=== PATIENT | female | born 1955 | race Caucasian/White ===

== ENCOUNTER 2016-05-16 13:39 | Inpatient (IN) | payer OTHER, MEDICARE ==
[2016-05-16] VITALS (10 sets, daily range): BP systolic 125–150; BP diastolic 58–70; PULSE 64–88; RESP 18–24; TEMP 97.6–98.2; O2SAT 94–100
[~2016-05-16] VITALS: Ht 175.3 cm; Wt 72.4 kg
[~2016-05-16 13:39] MED LIST: CIME300T PO; DIAZ10 PO; DILA10IN IJ; FURO20 PO; GABA300 PO; HYDR-3533 PO; IBUP-232 PO; KCL10C PO; SOMA350T PO
[2016-05-16 14:28] LABS: MEAN CELL VOLUME 98.1 FL (80.0-100.0); MEAN CORPUSCULAR HEMOGLOBIN 34.3 PG (27.0-34.0); PLATELET COUNT 71 TH/MM3 (150-450); RED BLOOD COUNT 1.68 MIL/MM3 (4.00-5.30); RED CELL DISTRIBUTION WIDTH 17.8 % (11.6-17.2); WHITE BLOOD COUNT 2.5 TH/MM3 (4.0-11.0)
[2016-05-16 14:43] LABS: HEMO FLAGS AUTO DIFF
[2016-05-16 14:45] LABS: ANION GAP 11 MEQ/L (5-15); BICARBONATE 24.5 MEQ/L (21.0-32.0); BLOOD UREA NITROGEN 18 MG/DL (7-18); CHLORIDE 103 MEQ/L (98-107); GLOMERULAR FILTRATION RATE 72 ML/MIN (>89); POTASSIUM 4.2 MEQ/L (3.5-5.1); SODIUM (NA) 138 MEQ/L (136-145)
[2016-05-16 14:47] LABS: HEMATOCRIT 16.4 % (35.0-46.0)
[2016-05-16 14:49] LABS: CREATINE KINASE 161 U/L (26-192)
[2016-05-16] MEDS ORDERED: SODIUM CHLOR 0.9% 1000 ML INJ 1,000 ML IV SCH ×2 (14:49→17:31)
[2016-05-16] MEDS ORDERED: SODIUM CHLORIDE 0.9% FLUSH 5 ML FLUSH IVF PRN (15:00)
[2016-05-16 15:02] LABS: CKMB 1.7 NG/ML (0.5-3.6)
--- NOTE | 2016-05-16 15:14 | PD ---
Physical Exam Date Seen by Provider: May 16, 2016 Narrative I, Dr. Darnell, have reviewed the advance practice practitioner's documentation and am in agreement, met with the patient face to face, made the diagnosis, and the medical decision making was done by me. *My assessment and Findings: Patient is pale and seems out of breath when she is talking. Data Data Last Documented VS Vital Signs Date Time Temp Pulse Resp B/P Pulse Ox O2 Delivery O2 Flow Rate FiO2 05/16/16 14:55 20 100 Room Air 05/16/16 13:43 97.9 88 150/70 Orders Electrocardiogram (05/16/16 13:55) Complete Blood Count With Diff (05/16/16 13:55) Basic Metabolic Panel (Bmp) (05/16/16 13:55) Ckmb (Isoenzyme) Profile (05/16/16 13:55) Troponin I (05/16/16 13:55) CKMB (05/16/16 14:10) CKMB% (05/16/16 14:10) Prothrombin Time / Inr (Pt) (05/16/16 14:49) Act Partial Throm Time (Ptt) (05/16/16 14:49) Type And Screen (05/16/16 14:49) Ecg Monitoring (05/16/16 14:49) Iv Access Insert/Monitor (05/16/16 14:49) Orthostatic Vital Signs (05/16/16 14:49) Oximetry (05/16/16 14:49) Sodium Chlor 0.9% 1000 Ml Inj (Ns 1000 M (05/16/16 14:49) Sodium Chloride 0.9% Flush (Ns Flush) (05/16/16 15:00) Iron/Tibc Profile (05/16/16 15:04) Vitamin B12 (05/16/16 15:04) Labs Laboratory Tests Test 05/16/16 14:10 White Blood Count 2.5 TH/MM3 Red Blood Count 1.68 MIL/MM3 Hemoglobin 5.8 GM/DL Hematocrit 16.4 % Mean Corpuscular Volume 98.1 FL Mean Corpuscular Hemoglobin 34.3 PG Mean Corpuscular Hemoglobin 35.0 % Concent Red Cell Distribution Width 17.8 % Platelet Count 71 TH/MM3 Mean Platelet Volume 7.6 FL Neutrophils (%) (Auto) % Lymphocytes (%) (Auto) % Monocytes (%) (Auto) % Eosinophils (%) (Auto) % Basophils (%) (Auto) % Neutrophils # (Auto) TH/MM3 Lymphocytes # (Auto) TH/MM3 Monocytes # (Auto) TH/MM3 Eosinophils # (Auto) TH/MM3 Basophils # (Auto) TH/MM3 CBC Comment AUTO DIFF Sodium Level 138 MEQ/L Potassium Level 4.2 MEQ/L Chloride Level 103 MEQ/L Carbon Dioxide Level 24.5 MEQ/L Anion Gap 11 MEQ/L Blood Urea Nitrogen 18 MG/DL Creatinine 0.81 MG/DL Estimat Glomerular Filtration 72 ML/MIN Rate Random Glucose 88 MG/DL Calcium Level 8.5 MG/DL Total Creatine Kinase 161 U/L Creatine Kinase MB 1.7 NG/ML Troponin I LESS THAN 0.02 NG/ML MDM Supervised Visit with ALYCE: Kinza Carmen MD May 16, 2016 15:14
--- NOTE | 2016-05-16 15:18 | PD ---
HPI Chief Complaint: Chest Pain Time Seen by Provider: 15:07 Travel History International Travel<30 days: No Contact w/Intl Traveler<30days: No Traveled to known affect area: No History of Present Illness HPI Patient is a 61-year-old female who presents emergency from for evaluation of shortness of breath and chest tightness. Patient states she has been getting progressively more short of breath with exertion for the last 2-3 weeks. She reports chest tightness and describes it as if she has run a long distance and it takes a while to catch her breath. She denies any abdominal pain, nausea, vomiting, chest pressure or radiation of her chest pain, headaches, fevers, chills. She states that she had hemorrhoid surgery approximately [address] Purvis. She denies any dark or tarry-like stools. Her primary doctor is Dr. Davis. Patient has a past medical history of hemorrhoids, cervical and lumbar fusions, hypothyroidism, peripheral edema. PFSH Past Medical History Asthma: No Anxiety: Yes Depression: Yes Heart Rhythm Problems: No Cancer: No Cardiac Catheterization: No Cardiovascular Problems: No High Cholesterol: No Chest Pain: No Congestive Heart Failure: No COPD: No Diabetes: No Diminished Hearing: No Endocrine: No Gastrointestinal Disorders: No GERD: Yes Glaucoma: No Genitourinary: No Hepatitis: No Hiatal Hernia: No Hypertension: Yes Immune Disorder: No Implanted Vascular Access Dvce: Yes (pain pump) Musculoskeletal: Yes (CHRONIC NECK AND BACK SURGERY) Neurologic: Yes (neuropathy) Reproductive: No Respiratory: No Myocardial Infarction: No Sleep Apnea: No Thyroid Disease: Yes Tetanus Vaccination: > 5 Years Influenza Vaccination: Yes Menopausal: Yes Past Surgical History Narrative Surgical Hemorrhoid surgery Body Medical Devices: [employer] PAIN PUMP RIGHT ABDOMEN Coronary Artery Bypass Graft: No Gynecologic Surgery: Yes (REMOVAL UTERUS CYST) Pacemaker: No Other Surgery: Yes (MULTIPLE BACK SURGERIES, CARPAL TUNNEL BILATERALLY, shoulder) Family History Family Myocardial Infarction: Yes Social History Alcohol Use: No Tobacco Use: No Substance Use: No Allergies-Medications (Allergen,Severity, Reaction): Coded Allergies: No Known Allergies (Verified , 05/16/16) Reported Meds & Prescriptions Reported Meds & Active Scripts Active Reported Protonix (Pantoprazole Sodium) 20 Mg Tab 20 Mg PO DAILY Gabapentin 300 Mg Cap 300 Mg PO TID Zantac (Ranitidine HCl) 150 Mg Tab 150 Mg PO BID Synthroid (Levothyroxine Sodium) 25 Mcg Tab 25 Mcg PO DAILY Potassium Chloride ER (Potassium Chloride) 10 Meq Cap 10 Meq PO DAILY Lasix (Furosemide) 20 Mg Tab 20 Mg PO DAILY Soma (Carisoprodol) 350 Mg Tab 350 Mg PO TID PRN Review of Systems Except as stated in HPI: all other systems reviewed are Neg Cardiovascular: Positive: Chest Pain or Discomfort, Dyspnea on exertion Respiratory: Positive: Shortness of Breath, No: Pleuritic Pain Gastrointestinal: Positive: Constipation (chronic issue), No: Nausea, Vomiting , Diarrhea, Abdominal Pain Neurologic: Positive: Weakness, No: Dizziness, Syncope, Focal Abnormalities, Change in Mentation Physical Exam Narrative GENERAL: Well developed, well nourished, alert female. Resting comfortably in no acute distress. SKIN: Warm and dry. HEAD: Atraumatic. Normocephalic. EYES: Pupils equal and round. No scleral icterus. No injection or drainage. Conjunctival pallor ENT: No nasal bleeding or discharge. Mucous membranes pink and moist. NECK: Trachea midline. No JVD. CARDIOVASCULAR: Regular rate and rhythm. No murmur appreciated. RESPIRATORY: No accessory muscle use. Clear to auscultation. Breath sounds equal bilaterally. GASTROINTESTINAL: Abdomen soft, non-tender, nondistended. Hepatic and splenic margins not palpable. MUSCULOSKELETAL: No obvious deformities. No clubbing. No cyanosis. No edema. NEUROLOGICAL: Awake and alert. No obvious cranial nerve deficits. Motor grossly within normal limits. Normal speech. PSYCHIATRIC: Appropriate mood and affect; insight and judgment normal. Data Data Last Documented VS Vital Signs Date Time Temp Pulse Resp B/P Pulse Ox O2 Delivery O2 Flow Rate FiO2 05/16/16 17:00 97.8 68 18 132/60 100 Room Air Orders Electrocardiogram (05/16/16 13:55) Complete Blood Count With Diff (05/16/16 13:55) Basic Metabolic Panel (Bmp) (05/16/16 13:55) Ckmb (Isoenzyme) Profile (05/16/16 13:55) Troponin I (05/16/16 13:55) CKMB (05/16/16 14:10) CKMB% (05/16/16 14:10) Prothrombin Time / Inr (Pt) (05/16/16 14:49) Act Partial Throm Time (Ptt) (05/16/16 14:49) Type And Screen (05/16/16 14:49) Ecg Monitoring (05/16/16 14:49) Iv Access Insert/Monitor (05/16/16 14:49) Orthostatic Vital Signs (05/16/16 14:49) Oximetry (05/16/16 14:49) Sodium Chlor 0.9% 1000 Ml Inj (Ns 1000 M (05/16/16 14:49) Sodium Chloride 0.9% Flush (Ns Flush) (05/16/16 15:00) Iron/Tibc Profile (05/16/16 15:04) Vitamin B12 (05/16/16 15:04) Diet As Tolerated (05/16/16 16:28) Blood Product Administration .UPON TRANSFUSION (05/16/16 16:36) Pantoprazole Inj (Protonix Inj) (05/16/16 16:45) Red Blood Cells (Rbc) (05/16/16 15:00) Consult Gastroenterology (05/16/16 ) Admit Order (Ed Use Only) (05/16/16 17:21) Labs Laboratory Tests Test 05/16/16 05/16/16 05/16/16 14:10 15:00 16:10 White Blood Count 2.5 TH/MM3 Red Blood Count 1.68 MIL/MM3 Hemoglobin 5.8 GM/DL Hematocrit 16.4 % Mean Corpuscular Volume 98.1 FL Mean Corpuscular Hemoglobin 34.3 PG Mean Corpuscular Hemoglobin 35.0 % Concent Red Cell Distribution Width 17.8 % Platelet Count 71 TH/MM3 Mean Platelet Volume 7.6 FL Neutrophils (%) (Auto) % Lymphocytes (%) (Auto) % Monocytes (%) (Auto) % Eosinophils (%) (Auto) % Basophils (%) (Auto) % Neutrophils # (Auto) TH/MM3 Lymphocytes # (Auto) TH/MM3 Monocytes # (Auto) TH/MM3 Eosinophils # (Auto) TH/MM3 Basophils # (Auto) TH/MM3 CBC Comment AUTO DIFF Differential Total Cells 100 Counted Neutrophils % (Manual) 6 % Lymphocytes % 85 % Monocytes % 4 % Eosinophils % 5 % Neutrophils # (Manual) 0.2 TH/MM3 Differential Comment FINAL DIFF MANUAL Platelet Estimate LOW Platelet Morphology Comment NORMAL Ovalocytes 1+ Sodium Level 138 MEQ/L Potassium Level 4.2 MEQ/L Chloride Level 103 MEQ/L Carbon Dioxide Level 24.5 MEQ/L Anion Gap 11 MEQ/L Blood Urea Nitrogen 18 MG/DL Creatinine 0.81 MG/DL Estimat Glomerular Filtration 72 ML/MIN Rate Random Glucose 88 MG/DL Calcium Level 8.5 MG/DL Total Creatine Kinase 161 U/L Creatine Kinase MB 1.7 NG/ML Troponin I LESS THAN 0.02 NG/ML Prothrombin Time 10.9 SEC Prothromb Time International 1.0 RATIO Ratio Activated Partial 27.7 SEC Thromboplast Time Blood Type O POSITIVE O POSITIVE Antibody Screen NEGATIVE Crossmatch Leukocyte-Reduced Red Blood Cells Blood Bank Comment MDM Medical Decision Making Medical Screen Exam Complete: Yes Emergency Medical Condition: Yes Interpretation(s) Vital Signs Date Time Temp Pulse Resp B/P Pulse Ox O2 Delivery O2 Flow Rate FiO2 05/16/16 13:43 97.9 88 24 150/70 95 Room Air Differential Diagnosis Atypical chest pain versus acute GA versus PE versus CHF versus anemia Narrative Course Patient is a 61-year-old female who presents emergency department for evaluation of shortness of breath and chest tightness. Patient was protocoled while waiting. Upon presentation to the room she appears to be short of breath with any amount of exertion including talking. She was placed on telemetry monitoring, continuous pulse oximetry, IV established. Patient's initial EKG shows normal sinus rhythm. CBC shows hemoglobin of 5.8/16.4 Troponin is normal, less than 0.02. Chemistries otherwise unremarkable. Type and cross was ordered and pending Stool was positive for blood on Hemoccult card. Patient's vital signs are stable, she is not tachycardic without heart rate of 88, she was 95% on room air in triage, when resting she is 100% on room air. Iron profile, coags as well as B12 ordered and pending. Patient will be transfused for 2 units packed red blood cells. Patient to be admitted to Dr. Gonzales. Vital signs remained stable, patient is agreeable to plan. HemaPrompt Point of Care Fecal Specimen Occult Blood: Positive Diagnosis Primary Impression: Anemia Qualified Code: D64.9 - Anemia, unspecified type Additional Impression: GI bleed Qualified Code: K92.2 - Gastrointestinal hemorrhage, unspecified gastrointestinal hemorrhage type Admitting Information Admitting Physician Requests: Observation Condition: Stable Susan Pelaez DYE TUB TENDER May 16, 2016 15:18
[2016-05-16 15:38] LABS: EOSINOPHILS 5 % (0-4); NEUTROPHIL # MANUAL DIFF 0.2 TH/MM3 (1.8-7.7); POLYS (SEG NEUTROPHILS) 6 % (16-70); WBC DIFF SAMPLE 100
[2016-05-16 15:39] LABS: OVALOCYTES 1+ (NORMAL)
[2016-05-16 15:40] LABS: PLATELET ESTIMATE SMEAR LOW (NORMAL); PLATELET MORPHOLOGY NORMAL (NORMAL); SCAN/DIFF FINAL DIFF MANUAL
[2016-05-16 15:41] LABS: APTT (PATIENT) 27.7 SEC (24.3-30.1); PROTHROMBIN TIME - PATIENT 10.9 SEC (9.8-11.6)
[2016-05-16] MEDS ORDERED: SOMA350T PO (15:48)
[2016-05-16] MEDS ORDERED: POTA10CA PO (15:48)
[2016-05-16] MEDS ORDERED: FURO1TAB62 PO (15:48)
[2016-05-16] MEDS ORDERED: PANT20 PO (15:55)
[2016-05-16] MEDS ORDERED: SYNT25TA PO (15:55)
[2016-05-16] MEDS ORDERED: GABA300C5 PO (15:55)
[2016-05-16] MEDS ORDERED: ZANT150T2 PO (15:55)
[2016-05-16] MEDS ORDERED: PANTOPRAZOLE SODIUM 40 MG VIAL IV PUSH ONE (16:45)
[2016-05-16] MEDS: GABAPENTIN 300 MG CAP PO SCH (18:00)
--- NOTE | 2016-05-16 18:56 | HHI.HP ---
[facility] Primary Care Physician Eloy Davis MD Admission Diagnosis ANEMIA/GI BLEED Diagnoses: Chief Complaint: Shortness of breath, fatigue Travel History International Travel<30 Days: No Contact w/Intl Traveler <30 Da: No Traveled to Known Affected Are: No History of Present Illness 61-year-old female with a medical history significant for hypothyroidism, GERD, chronic back pain, peripheral edema, hemorrhoids present to the emergency room with complaint of shortness of breath and occasional chest tightness. The patient reports that she had an in office hemorrhoidectomy about 3 weeks ago. Since the procedure she reports that she has been feeling overly tired and never recovered. She has been progressively getting short of breath, with associated heart palpitation and dizziness. She denies any dark or bloody stools. She does report that she continues to have issues with constipation and has been using Dulcolax and enema every few days. Workup in the emergency room revealed marked anemia with an H&H of 5.8/16.4. She is also thrombocytopenic with a platelet of 71 and her absolute neutrophil is 0.2. Review of Systems Constitutional: COMPLAINS OF: Fatigue, DENIES: Fever, Chills Endocrine: COMPLAINS OF: Heat/cold intolerance Eyes: DENIES: Diplopia Ears, nose, mouth, throat: DENIES: Oral lesions Respiratory: COMPLAINS OF: Shortness of breath, DENIES: Cough Cardiovascular: COMPLAINS OF: Chest pain, Palpitations, Dyspnea on Exertion, DENIES: Syncope Gastrointestinal: DENIES: Nausea, Vomiting Genitourinary: DENIES: Dysuria Musculoskeletal: COMPLAINS OF: Back pain, Neck pain Integumentary: DENIES: Rash Neurologic: DENIES: Headache, Localized weakness Psychiatric: DENIES: Mood changes Past Family Social History Past Medical History hypothyroidism, GERD, chronic back pain, peripheral edema, hemorrhoids Past Surgical History Back and neck surgery Rotator cuff surgery Pain pump placement on the right lower abdomen Reported Medications Reported Meds & Active Scripts Active Reported Protonix (Pantoprazole Sodium) 20 Mg Tab 20 Mg PO DAILY Gabapentin 300 Mg Cap 300 Mg PO TID Zantac (Ranitidine HCl) 150 Mg Tab 150 Mg PO BID Synthroid (Levothyroxine Sodium) 25 Mcg Tab 25 Mcg PO DAILY Potassium Chloride ER (Potassium Chloride) 10 Meq Cap 10 Meq PO DAILY Lasix (Furosemide) 20 Mg Tab 20 Mg PO DAILY Soma (Carisoprodol) 350 Mg Tab 350 Mg PO TID PRN Allergies: Coded Allergies: No Known Allergies (Verified , 05/16/16) Family History Father from cancer and emphysema. He also has a history of heart disease Mother from complications of asthma. Social History The patient denies using tobacco, alcohol or illicit drugs. Physical Exam Vital Signs Vital Signs Date Time Temp Pulse Resp B/P Pulse Ox O2 Delivery O2 Flow Rate FiO2 05/16/16 18:05 97.8 71 18 130/68 100 Room Air 05/16/16 17:00 97.8 68 18 132/60 100 Room Air 05/16/16 15:00 72 18 137/62 69 18 130/61 18 132/58 05/16/16 14:55 20 100 Room Air 05/16/16 14:55 70 18 99 Room Air 05/16/16 13:43 97.9 88 24 150/70 95 Room Air Physical Exam GENERAL: This is a well-nourished, well-developed patient, in no apparent distress. SKIN: No rashes, ecchymoses or lesions. Cool and dry. HEAD: Atraumatic. Normocephalic. No temporal or scalp tenderness. EYES: Pupils equal round and reactive. Extraocular motions intact. No scleral icterus. No injection or drainage. ENT: Nose without bleeding, purulent drainage or septal hematoma. Throat without erythema, tonsillar hypertrophy or exudate. Uvula midline. Airway patent. NECK: Trachea midline. No JVD or lymphadenopathy. Supple, nontender, no meningeal signs. CARDIOVASCULAR: Regular rate and rhythm without murmurs, gallops, or rubs. RESPIRATORY: Clear to auscultation. Breath sounds equal bilaterally. No wheezes , rales, or rhonchi. GASTROINTESTINAL: Abdomen soft, non-tender, nondistended. No hepato-splenomegaly , or palpable masses. No guarding. MUSCULOSKELETAL: Extremities without clubbing, cyanosis, or edema. No joint tenderness, effusion, or edema noted. No calf tenderness. Negative Homans sign bilaterally. NEUROLOGICAL: Awake and alert. Cranial nerves II through XII intact. Motor and sensory grossly within normal limits. Five out of 5 muscle strength in all muscle groups. Normal speech. Laboratory Laboratory Tests Test 05/16/16 05/16/16 05/16/16 14:10 15:00 16:10 White Blood Count 2.5 Red Blood Count 1.68 Hemoglobin 5.8 Hematocrit 16.4 Mean Corpuscular Volume 98.1 Mean Corpuscular Hemoglobin 34.3 Mean Corpuscular Hemoglobin 35.0 Concent Red Cell Distribution Width 17.8 Platelet Count 71 Mean Platelet Volume 7.6 Neutrophils (%) (Auto) Lymphocytes (%) (Auto) Monocytes (%) (Auto) Eosinophils (%) (Auto) Basophils (%) (Auto) Neutrophils # (Auto) Lymphocytes # (Auto) Monocytes # (Auto) Eosinophils # (Auto) Basophils # (Auto) CBC Comment AUTO DIFF Differential Total Cells 100 Counted Neutrophils % (Manual) 6 Lymphocytes % 85 Monocytes % 4 Eosinophils % 5 Neutrophils # (Manual) 0.2 Differential Comment FINAL DIFF MANUAL Platelet Estimate LOW Platelet Morphology Comment NORMAL Ovalocytes 1+ Sodium Level 138 Potassium Level 4.2 Chloride Level 103 Carbon Dioxide Level 24.5 Anion Gap 11 Blood Urea Nitrogen 18 Creatinine 0.81 Estimat Glomerular Filtration 72 Rate Random Glucose 88 Calcium Level 8.5 Total Creatine Kinase 161 Creatine Kinase MB 1.7 Troponin I LESS THAN 0.02 Prothrombin Time 10.9 Prothromb Time International 1.0 Ratio Activated Partial 27.7 Thromboplast Time Blood Type O POSITIVE O POSITIVE Antibody Screen NEGATIVE Crossmatch Leukocyte-Reduced Red Blood Cells Blood Bank Comment Result Diagram: 05/16/16 1410 05/16/16 1410 Assessment and Plan Problem List: (1) Symptomatic anemia ICD Code: D64.9 Status: Acute (2) GI bleed ICD Code: K92.2 Status: Acute (3) Leukopenia ICD Code: D72.819 Status: Acute (4) Thrombocytopenia ICD Code: D69.6 Status: Acute Assessment and Plan 61-year-old female with recent hemorrhoidectomy 3 weeks ago presented with severe symptomatic anemia, thrombocytopenia, and leukopenia. Symptomatic anemia and GI bleeding: Recent hemorrhoidectomy 3 weeks ago. Patient denies any active bleeding since the procedure. Hemoccult in the emergency room is positive. - Consult GI. - 2 units of PRBC currently being transfused. Serial H&H. - Continue Protonix. Monitor for bleeding. Pancytopenia: H&H on admission 5.8/16.4. Platelets of 71,000, WBC 2.7 and neutrophil count 0.2. Etiology unclear. Soma is one medication with potential side effects of pancytopenia. I did discuss this with the patient. She has been on it since 89 and is reluctant to come off of the medication. - Consult hematology for assistance. Obtain peripheral smear. B12, folate. Iron studies. - Follow-up CBC in a.m. Chronic back pain: Stable. Patient has a Dilaudid/fentanyl pump implanted on the right lower quadrant of her abdomen. Soma 3 times a day per the patient's home dose. Hypothyroidism: Continue Synthroid. Check TSH given pancytopenia. GERD: Continue Protonix and ranitidine. GI prophylaxis: PPI. Stool softener PRN constipation. DVT PPx: SCDs. Chemoprophylaxis contraindicated. Physician Certification 2 Midnight Certification Type: Admission for Inpatient Services Order for Inpatient Services The services are ordered in accordance with Medicare regulations or non- Medicare payer requirements, as applicable. In the case of services not specified as inpatient-only, they are appropriately provided as inpatient services in accordance with the 2-midnight benchmark. Estimated LOS (days): 3 days is the estimated time the patient will need to remain in the hospital, assuming treatment plan goals are met and no additional complications. Post-Hospital Plan: Home Problem Qualifiers (1) GI bleed: Qualified Code: K92.2 - Gastrointestinal hemorrhage, unspecified gastrointestinal hemorrhage type Natalie Del Rosario MD May 16, 2016 18:56
[2016-05-16 19:38] LABS: TRANSFERRIN IRON PROFILE 185 MG/DL (200-360)
--- NOTE | 2016-05-16 19:46 | RADRPT ---
EXAM DATE/TIME: 05/16/2016 19:23 [facility] COMPARISON: CHEST PA & LAT, March 13, 2013, 20:16. INDICATIONS : Dyspnea, Chest Discomfort. MEDICAL HISTORY : None. SURGICAL HISTORY : None. ENCOUNTER: Initial ACUITY: 1 day PAIN SCORE: 2/10 LOCATION: Bilateral chest FINDINGS: A single view of the chest demonstrates minimal interstitial densities without evidence of mass, infi ltrate or effusion. The cardiomediastinal contours are unremarkable. Osseous structures are intact. CONCLUSION: No acute disease. Minimal interstitial densities likely chronic. Kilo Cotto MD on May 16, 2016 at 19:44 Board Certified Radiologist. This report was verified electronically.
[2016-05-16] MEDS: SODIUM CHLORIDE 0.9% FLUSH 5 ML FLUSH IV SCH (21:00)
[2016-05-16] MEDS: CARISOPRODOL 350 MG TAB PO PRN (21:45)
[2016-05-16] MEDS: FAMOTIDINE 20 MG TAB PO SCH (21:46)
[2016-05-17] VITALS (9 sets, daily range): BP systolic 99–142; BP diastolic 55–74; PULSE 62–69; RESP 16–18; TEMP 98–98.6; O2SAT 93–98
[2016-05-17 03:30] LABS: AUTOMATED NEUTROPHIL # 0.1 TH/MM3 (1.8-7.7); EOSINOPHIL # 0.1 TH/MM3 (0-0.4); EOSINOPHIL % 2.6 % (0.0-4.0); LYMPH % 83.4 % (9.0-44.0); MEAN CELL VOLUME 92.2 FL (80.0-100.0); MEAN CORPUSCULAR HEMOGLOBIN 32.9 PG (27.0-34.0); MEAN CORPUSCULAR HGB CONC 35.7 % (32.0-36.0); MONO % 9.1 % (0.0-8.0); NEUT % 4.9 % (16.0-70.0); PLATELET COUNT 55 TH/MM3 (150-450); RED BLOOD COUNT 2.28 MIL/MM3 (4.00-5.30); RED CELL DISTRIBUTION WIDTH 16.7 % (11.6-17.2); WHITE BLOOD COUNT 2.4 TH/MM3 (4.0-11.0)
[2016-05-17 03:36] LABS: HEMO FLAGS AUTO DIFF
[2016-05-17 03:42] LABS: BICARBONATE 24.9 MEQ/L (21.0-32.0); POTASSIUM 3.7 MEQ/L (3.5-5.1)
[2016-05-17 04:42] LABS: BANDS 4 % (0-6); EOSINOPHILS 5 % (0-4); NEUTROPHIL # MANUAL DIFF 0.2 TH/MM3 (1.8-7.7); POLYS (SEG NEUTROPHILS) 5 % (16-70); SCAN/DIFF FINAL DIFF MANUAL; WBC DIFF SAMPLE 100
[2016-05-17 04:44] LABS: PLATELET ESTIMATE SMEAR LOW (NORMAL); PLATELET MORPHOLOGY NORMAL (NORMAL)
[2016-05-17] MEDS: CARISOPRODOL 350 MG TAB PO PRN ×2 (05:39→20:47)
[2016-05-17] MEDS: LEVOTHYROXINE SODIUM 25 MCG TAB PO SCH (05:39)
[2016-05-17] MEDS: ACETAMINOPHEN 325 MG TAB PO PRN (06:35)
[2016-05-17] MEDS: PANTOPRAZOLE SODIUM 40 MG VIAL IV PUSH SCH (09:08)
[2016-05-17] MEDS: POTASSIUM CHLORIDE 10 MEQ CAP PO SCH (09:09)
[2016-05-17] MEDS: FAMOTIDINE 20 MG TAB PO SCH ×2 (09:09→20:38)
[2016-05-17] MEDS: FUROSEMIDE 20 MG TAB PO SCH (09:09)
[2016-05-17] MEDS: GABAPENTIN 300 MG CAP PO SCH ×3 (09:09→17:56)
[2016-05-17] MEDS: SODIUM CHLORIDE 0.9% FLUSH 5 ML FLUSH IV SCH ×2 (09:10→20:38)
[2016-05-17] MEDS ORDERED: INFLUENZA VIRUS VACCINE (QUADRIVALENT) 0.5 ML SYR IM ONE (10:00)
--- NOTE | 2016-05-17 10:13 | PD.CONS ---
HPI History of Present Illness This is a 61 year old female admitted with C/O shortness of breath and occasional chest tightness. She reports having an in office hemorrhoidectomy 3 weeks ago. Since that procedure she has been feeling overly fatigued and never recovered. She has experienced increased shortness of breath with associated heart palpatations and dizziness. She denies having any dark stools or bloody stools. She does have issues with constipation and uses enemas, Dulcolax every few days. Initial H&H showed 5.8/16.4, she is also thrombocytopenic with platelets of 55. Today's H&H is 7.5/21.0, was given 2 units of PRBC's since admission. She also has low WBC's of 2.4 and is on neutropenic precautions. Denies abdominal pain, had positive FOBT. She had a colonoscopy done in 2014 at [facility], which she states was normal she was previously getting colonoscopies every year. She thinks the procedure was normal. Last EGD was done 3 months ago and she thinks it was normal. Does have a Hx of reflux/GERD. She does have chronic pain and has an implanted pain pump. (Neris Henry) PFSH Past Medical History hypothyroidism, GERD, chronic back pain, peripheral edema, hemorrhoids Past Surgical History Back and neck surgery Rotator cuff surgery Pain pump placement on the right lower abdomen Colonoscopy/EGD (Neris Henry) Coded Allergies: No Known Allergies (Verified , 05/16/16) Medications Reported Meds & Active Scripts Active Reported Protonix (Pantoprazole Sodium) 20 Mg Tab 20 Mg PO DAILY Gabapentin 300 Mg Cap 300 Mg PO TID Zantac (Ranitidine HCl) 150 Mg Tab 150 Mg PO BID Synthroid (Levothyroxine Sodium) 25 Mcg Tab 25 Mcg PO DAILY Potassium Chloride ER (Potassium Chloride) 10 Meq Cap 10 Meq PO DAILY Lasix (Furosemide) 20 Mg Tab 20 Mg PO DAILY Soma (Carisoprodol) 350 Mg Tab 350 Mg PO TID PRN Family History Father from cancer and emphysema. He also has a history of heart disease Mother from complications of asthma. Social History The patient denies using tobacco, alcohol or illicit drugs. (Neris Henry ) Review of Systems Constitutional: COMPLAINS OF: Fatigue, Dizziness Cardiovascular: COMPLAINS OF: Chest pain, Palpitations (Neris Henry) GI Exam Vitals I&O Vital Signs Date Time Temp Pulse Resp B/P Pulse Ox O2 Delivery O2 Flow Rate FiO2 05/17/16 09:30 20 05/17/16 08:00 98.1 64 18 142/64 95 05/17/16 04:00 98.4 63 16 122/58 95 05/17/16 00:50 98.1 62 18 124/60 96 05/17/16 00:12 98.3 66 18 111/58 93 05/16/16 21:50 97.8 64 18 125/60 98 05/16/16 21:35 97.6 65 18 126/59 96 05/16/16 21:15 97.6 65 18 126/59 96 05/16/16 19:15 98.2 70 18 129/61 94 05/16/16 18:20 97.8 72 18 132/62 100 Room Air 05/16/16 18:05 97.8 71 18 130/68 100 Room Air 05/16/16 17:00 97.8 68 18 132/60 100 Room Air 05/16/16 15:00 72 18 137/62 69 18 130/61 18 132/58 05/16/16 14:55 20 100 Room Air 05/16/16 14:55 70 18 99 Room Air 05/16/16 13:43 97.9 88 24 150/70 95 Room Air I/O 05/16/16 05/16/16 05/16/16 05/17/16 05/17/16 05/17/16 06:59 14:59 22:59 06:59 14:59 22:59 Intake Total 240 ml 360 ml Balance 240 ml 360 ml Intake Oral 240 ml 360 ml # Voids 1 2 Imaging Last 72 hours Impressions Chest X-Ray 05/16/16 0000 Signed Impressions: Service Date/Time: Monday, May 16, 2016 19:23 - CONCLUSION: No acute disease. Minimal interstitial densities likely chronic. Kilo Cotto MD Laboratory Test 05/16/16 05/16/16 05/16/16 05/17/16 14:10 15:00 16:10 02:22 White Blood Count 2.5 TH/MM3 2.4 TH/MM3 Red Blood Count 1.68 MIL/MM3 2.28 MIL/MM3 Hemoglobin 5.8 GM/DL 7.5 GM/DL Hematocrit 16.4 % 21.0 % Mean Corpuscular Volume 98.1 FL 92.2 FL Mean Corpuscular Hemoglobin 34.3 PG 32.9 PG Mean Corpuscular Hemoglobin 35.0 % 35.7 % Concent Red Cell Distribution Width 17.8 % 16.7 % Platelet Count 71 TH/MM3 55 TH/MM3 Mean Platelet Volume 7.6 FL 7.6 FL Neutrophils (%) (Auto) % 4.9 % Lymphocytes (%) (Auto) % 83.4 % Monocytes (%) (Auto) % 9.1 % Eosinophils (%) (Auto) % 2.6 % Basophils (%) (Auto) % 0.0 % Neutrophils # (Auto) TH/MM3 0.1 TH/MM3 Lymphocytes # (Auto) TH/MM3 2.0 TH/MM3 Monocytes # (Auto) TH/MM3 0.2 TH/MM3 Eosinophils # (Auto) TH/MM3 0.1 TH/MM3 Basophils # (Auto) TH/MM3 0.0 TH/MM3 CBC Comment AUTO DIFF AUTO DIFF Differential Total Cells 100 100 Counted Neutrophils % (Manual) 6 % 5 % Lymphocytes % 85 % 82 % Monocytes % 4 % 4 % Eosinophils % 5 % 5 % Neutrophils # (Manual) 0.2 TH/MM3 0.2 TH/MM3 Differential Comment FINAL DIFF FINAL DIFF MANUAL MANUAL Platelet Estimate LOW LOW Platelet Morphology Comment NORMAL NORMAL Ovalocytes 1+ Blood Smear Pathologist Review Sodium Level 138 MEQ/L 145 MEQ/L Potassium Level 4.2 MEQ/L 3.7 MEQ/L Chloride Level 103 MEQ/L 112 MEQ/L Carbon Dioxide Level 24.5 MEQ/L 24.9 MEQ/L Anion Gap 11 MEQ/L 8 MEQ/L Blood Urea Nitrogen 18 MG/DL 13 MG/DL Creatinine 0.81 MG/DL 0.66 MG/DL Estimat Glomerular Filtration 72 ML/MIN 91 ML/MIN Rate Random Glucose 88 MG/DL 82 MG/DL Calcium Level 8.5 MG/DL 8.1 MG/DL Iron Level 233 MCG/DL Total Iron Binding Capacity 259 MCG/DL Percent Iron Saturation 90.0 % Total Creatine Kinase 161 U/L Creatine Kinase MB 1.7 NG/ML Troponin I LESS THAN 0.02 NG/ML Thyroid Stimulating Hormone 1.720 uIU/ML 3rd Gen Prothrombin Time 10.9 SEC Prothromb Time International 1.0 RATIO Ratio Activated Partial 27.7 SEC Thromboplast Time Blood Type O POSITIVE O POSITIVE Antibody Screen NEGATIVE Crossmatch Leukocyte-Reduced Red Blood Cells Blood Bank Comment Band Neutrophils % 4 % Physical Examination HEENT: Pupils round and reactive to light; normocephalic; atraumatic; no jaundice. Throat is clear. NECK: Neck is supple, no JVD, no lymphadenopathy. CHEST: Chest is clear to auscultation and percussion. CARDIAC: Regular rate and rhythm with no murmur gallop or rubs. ABDOMEN: Soft, nondistended, nontender; no hepatosplenomegaly; bowel sounds are present in all four quadrants. EXTREMITIES: No clubbing, cyanosis, or edema. SKIN: Normal; no rash; no jaundice. 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 (Neris Henry) Assessment and Plan Assessment: (1) Acute blood loss anemia Plan: Inital H&H of 5.6/16.4 required PRBC's Today's H&H is 7.5/21.0 (2) GI bleed Plan: Positive FOBT No obvious rectal bleeding noted Symptoms started 3 weeks ago after hemorrhoidectomy (3) GERD (gastroesophageal reflux disease) Plan: continue PPI (4) Chronic constipation Plan: Continue measures to prevent constipation (5) Thrombocytopenia Plan: May need hematology consult (6) Leukopenia Plan: Neutropenic precautions Plan This is a 61 year old female with acute blood loss anemia and is very symptomatic with shortness of breath and weakness and fatigue. Had positive fecal occult blood no blood seen in her stools at home. Has chronic constipation requiring use of enemas and Dulcolax. Last colonoscopy was 2014 which she states was normal and normal EGD 3 months ago. She will need a colonoscopy and EGD once platelets are stable. Plan -Colonoscopy/EGD on Thursday -Continue PPI -Laxatives as need for constipation -Follow H&H, transfuse PRBC's PRN to keep H&H >7.0 -Call GI for any bleeding -May need hematology consult -Supportive care Thank you for the consult Patient was seen and examined by myself and Dr. Lance, this consult is written on his behalf. (Neris Henry) Physician Comments Seen and examined, will need repeat endoscopic work up, plat. correction, transfusion and will plan EGD/Colonoscopy early next week. (Kirsten Lance MD) Problem Qualifiers (1) GI bleed: Qualified Code: K92.2 - Gastrointestinal hemorrhage, unspecified gastrointestinal hemorrhage type Neris Henry May 17, 2016 10:13 Kirsten Lance MD May 17, 2016 11:40
[2016-05-17] MEDS ORDERED: DIATRIZOATE MEGLUM/DIATRIZOATE SOD 9 ML CUP PO ONE (11:15)
--- NOTE | 2016-05-17 11:38 | MB ---
cc: VIANCA BOND M.D. DATE OF CONSULTATION: 05/17/2016. REASON FOR CONSULTATION: Hematology was consulted to render opinion regarding a patient with new-onset pancytopenia. ATTENDING PHYSICIAN: Dr. Del Rosario. HISTORY OF PRESENT ILLNESS: The patient is a very pleasant 61-year-old female who first noted bright red blood per rectum about six weeks ago. She was found to have a hemorrhoid and was referred to colorectal surgery. She had a hemorrhoidectomy about three weeks ago. She stated she had significant bleeding. Since the surgery she has been having increased weakness, shortness of breath and she also has had palpitations and occasional chest pain. She has dizziness. She came to the emergency room and was found to have pancytopenia and her hemoglobin was only 5.8. She was then admitted for further evaluation. Her stool occult blood was still positive in the emergency room. She was still taking aspirin on and off. After the hemorrhoidectomy, she has had constipation but controlled. Denies any fever, chills, night sweats, weight loss. Denies any headache. Denies any visual changes. Denies any nausea or vomiting, abdominal pain and denies dysuria or hematuria and denies any bone pain. PAST MEDICAL HISTORY: 1. Hypothyroidism. 2. Hemorrhoids. 3. Gastroesophageal reflux disease (GERD). 4. Chronic back pain. 5. Peripheral edema. PAST SURGICAL HISTORY: 1. Recent hemorrhoidectomy. 2. Back and neck surgery. 3. Rotator cuff surgery. 4. Pain pump placement about nine years ago. FAMILY HISTORY: Father of lung cancer and the mother had asthma. She has six siblings, relatively healthy. She had three children, also healthy. No family history of hematologic disorder. SOCIAL HISTORY: Denies tobacco or alcohol use. ALLERGIES: NO KNOWN DRUG ALLERGIES. CURRENT MEDICATIONS: 1. Lasix. 2. Potassium. 3. Protonix. 4. Levothyroxine. 5. Pepcid. 6. Gabapentin. REVIEW OF SYSTEMS: CONSTITUTIONAL: Denies any fevers, chills, night sweats, weight loss. EYES: Denies any blurry vision or double vision. ENT: Denies any mouth sores or voice changes. CARDIOVASCULAR: Had palpitations. Occasional chest pain. RESPIRATORY: As above. GI: As above. : Denies any dysuria or hematuria. MUSCULOSKELETAL: Chronic back pain. HEMATOLOGIC: As above. ENDOCRINE: Negative. DERMATOLOGIC: Negative. PSYCHIATRIC: Negative. NEUROLOGIC: Negative. PHYSICAL EXAMINATION: VITAL SIGNS: Temperature afebrile, blood pressure 142/64, oxygen saturation 95%. GENERAL: She is alert and oriented times three and in no acute distress. She is a little pale. HEAD, EYES, EARS, NOSE, THROAT: Atraumatic, normocephalic. Pupils equal, round, reactive to light. Extraocular muscles are intact. No scleral icterus. OROPHARYNX: Dry mucosa. No lesions. No thrush. No mucositis. NECK: No thyromegaly. No palpable mass. LYMPHATIC: No palpable cervical, clavicular, axillary or inguinal lymph nodes. CARDIOVASCULAR: Regular S1 and S2. No murmurs. LUNGS: Clear to auscultation. No wheezing or rhonchi. ABDOMEN: Abdomen soft and nontender. I could palpate the liver or spleen. EXTREMITIES: No cyanosis. No clubbing. No edema. No calf tenderness. BACK: No paravertebral tenderness. SKIN: No rash or petechiae. NEUROLOGIC EXAM: Nonfocal. LABORATORY DATA: Reviewed. ASSESSMENT: 1. Pancytopenia which appears to be of recent onset. She stated her last blood drawn was in May of 2015 when she had a regular physical. She was not aware of a low blood count. She started having rectal bleeding about six weeks ago and was found to have hemorrhoids. She underwent hemorrhoidectomy about three weeks ago and since then she had been having increased symptoms. She presented with a hemoglobin 5.8. Her white blood cell count was 2.5 with an ANC of 0.2 and a platelet count of 71,000. The differential showed increased lymphocyte percent. I suspect she may have a primary bone marrow disorder. For now, I am going to have pathology review the peripheral smear. Will check her iron and vitamin studies. Will also check DIC panel. I am also going to check her liver function tests. Will get a CT scan to review the liver and spleen and to look for lymphoproliferative process. I told her she likely will need a bone marrow biopsy to rule out primary bone marrow disorder like myelodysplastic syndrome or lymphoproliferative disorder. She is rather anxious. She had some questions, which were answered. 2. Rectal bleeding. She recently had hemorrhoidectomy. Her stool occult blood was still positive. GI is following. 3. Hypothyroidism. TSH is normal. 4. Gastroesophageal reflux disease, stable. 5. Chronic back pain. She had a pain pump placement about nine years ago. 6. Peripheral edema. RECOMMENDATIONS: 1. Proceed with laboratory evaluation outlined as above. 2. Review peripheral smear. 3. Get CT scan to rule out lymphoproliferative disorder given her significant lymphocytosis. Thank you, Dr. Del Rosario, for asking me to see this patient. MD DANIELLE Bailey/JCDionte /10:41 AM /11:21 AM AMPARO
[2016-05-17 12:53] LABS: HEMATOCRIT 23.5 % (35.0-46.0)
--- NOTE | 2016-05-17 13:44 | EKG ---
Date Performed: 05/16/2016 Time Performed: 14:34:35 PTAGE: 61 years EKG: Sinus rhythm NORMAL ECG Since PREVIOUS TRACING , no significant change noted PREVIOUS TRACIN04/10/2008 17.20 DOCTOR: Lanny Palm Interpretating Date/Time 05/17/2016 13:43:49
[2016-05-17 14:01] LABS: RETIC % 0.9 % (0.4-3.0)
[2016-05-17 15:21] LABS: REVIEW FLAG FINAL
[2016-05-17] MEDS ORDERED: IOHEXOL 350 MG/ML 10 ML VIAL (for RAD DIAG) IV ONE (15:29)
--- NOTE | 2016-05-17 15:45 | HHI.PR ---
Subjective Remarks Patient reports that she is feeling better. Shortness of breath has improved. No heart palpitation or chest pain. She is anxious about thrombocytopenia. Objective Vitals Vital Signs Date Time Temp Pulse Resp B/P Pulse Ox O2 Delivery O2 Flow Rate FiO2 05/17/16 12:00 98.0 63 18 136/60 97 05/17/16 09:30 20 05/17/16 08:10 64 05/17/16 08:00 98.1 64 18 142/64 95 05/17/16 04:00 98.4 63 16 122/58 95 05/17/16 00:50 98.1 62 18 124/60 96 05/17/16 00:12 98.3 66 18 111/58 93 05/16/16 21:50 97.8 64 18 125/60 98 05/16/16 21:35 97.6 65 18 126/59 96 05/16/16 21:15 97.6 65 18 126/59 96 05/16/16 19:15 98.2 70 18 129/61 94 05/16/16 18:20 97.8 72 18 132/62 100 Room Air 05/16/16 18:05 97.8 71 18 130/68 100 Room Air 05/16/16 17:00 97.8 68 18 132/60 100 Room Air I/O 05/16/16 05/16/16 05/16/16 05/17/16 05/17/16 05/17/16 07:00 15:00 23:00 07:00 15:00 23:00 Intake Total 240 ml 360 ml Balance 240 ml 360 ml Intake Oral 240 ml 360 ml # Voids 1 2 Result Diagram: 05/17/16 1504 05/17/16 0222 Objective Remarks GENERAL: This is a well-nourished, well-developed patient, in no apparent distress. SKIN: No rashes, ecchymoses or lesions. Cool and dry. CARDIOVASCULAR: Regular rate and rhythm without murmurs, gallops, or rubs. RESPIRATORY: Clear to auscultation. Breath sounds equal bilaterally. No wheezes , rales, or rhonchi. GASTROINTESTINAL: Abdomen soft, non-tender, nondistended. No hepato-splenomegaly , or palpable masses. No guarding. MUSCULOSKELETAL: Extremities without clubbing, cyanosis, or edema. NEUROLOGICAL: Awake and alert. Normal speech. A/P Problem List: (1) Symptomatic anemia ICD Code: D64.9 Status: Acute (2) GI bleed ICD Code: K92.2 Status: Acute (3) Leukopenia ICD Code: D72.819 Status: Acute (4) Thrombocytopenia ICD Code: D69.6 Status: Acute Assessment and Plan 61-year-old female with recent hemorrhoidectomy 3 weeks ago presented with severe symptomatic anemia, thrombocytopenia, and leukopenia. Symptomatic anemia and GI bleeding: Recent hemorrhoidectomy 3 weeks ago. Patient denies any active bleeding since the procedure. Hemoccult in the emergency room is positive. - Appreciate GI following. Plan for endoscopy on Thursday - Received 2 units of PRBC on 05/06/16. - Continue Protonix. Monitor for bleeding. Follow CBC Pancytopenia: H&H on admission 5.8/16.4. Platelets of 71,000, WBC 2.7 and neutrophil count 0.2. - Appreciate hematology following. Concern for a primary bone marrow disorder. Workup ongoing including smear study, iron studies, chest/abd/pelvis CT - Follow-up CBC Chronic back pain: Stable. Patient has a Dilaudid/fentanyl pump implanted on the right lower quadrant of her abdomen. Soma 3 times a day per the patient's home dose. Hypothyroidism: Continue Synthroid. TSH ok. GERD: Continue Protonix and ranitidine. GI prophylaxis: PPI. Stool softener PRN constipation. DVT PPx: SCDs. Chemoprophylaxis contraindicated. Problem Qualifiers (1) GI bleed: Qualified Code: K92.2 - Gastrointestinal hemorrhage, unspecified gastrointestinal hemorrhage type Natalie Del Rosario MD May 17, 2016 15:45
[2016-05-17 15:48] LABS: ALT (GPT) 27 U/L (10-53); AST (GOT) 20 U/L (15-37)
--- NOTE | 2016-05-17 15:57 | RADRPT ---
EXAM DATE/TIME: 05/17/2016 15:14 [facility] COMPARISON: No previous studies available for comparison. INDICATIONS : Evaluate gastrointestinal bleed and shortness of breath. IV CONTRAST: 75 cc Omnipaque 350 (iohexol) IV ; Cumulative dose for multiple exams. RADIATION DOSE: 5.13 CTDIvol (mGy) ; Combined studies - Thorax/Abdomen/Pelvis MEDICAL HISTORY : None SURGICAL HISTORY : Hemorrhoidectomy. ENCOUNTER: Initial ACUITY: 2 days PAIN SCALE: 5/10 LOCATION: Bilateral thorax TECHNIQUE: Volumetric scanning of the chest was performed. Using automated exposure control and adjustment of t he mA and/or kV according to patient size, radiation dose was kept as low as reasonably achievable to obtain optimal diagnostic quality images. FINDINGS: There are severe bilateral fibroemphysematous changes that appear primarily chronic. Trace atelectasi s of the bases. Very small right and tiny left pleural effusions are noted. No pneumothorax. There is mild wylie chamber enlargement of the heart. Coronary artery calcification noted focally of th e left main. There are scattered mediastinal lymph nodes that measure up to 14 mm in greatest transaxial dimension and bilateral hilar lymph nodes that measure up to 15 mm in greatest short axis dimension. CONCLUSION: 1. 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 There are trace to very small bilateral pleural effusions and mild cardiomega ly noted. 2. No lobar consolidation. 3. Upper limits of normal to mildly enlarged mediastinal and bilateral hilar lymph nodes, nonspecific but presumably reactive. Bravo Mendez MD on May 17, 2016 at 15:51 Board Certified Radiologist. This report was verified electronically.
[2016-05-17 16:02] LABS: ALKALINE PHOSPHATASE 64 U/L (45-117); FERRITIN 247 NG/ML (8-252); INDIRECT BILIRUBIN 0.4 MG/DL (0.0-0.8); LDH SERUM 279 U/L (84-246); TOTAL BILIRUBIN ADULT 0.5 MG/DL (0.2-1.0)
--- NOTE | 2016-05-17 16:13 | RADRPT ---
EXAM DATE/TIME: 05/17/2016 15:18 [facility] COMPARISON: CT THORAX W CONTRAST, May 17, 2016, 15:14. MRI SCREENING SPINE W/O CONTRAST, June 23, 2010, 13:50. INDICATIONS : Evaluate gastrointestinal bleed and shortness of breath. IV CONTRAST: 75 cc Omnipaque 350 (iohexol) IV ; Cumulative dose for multiple exams. ORAL CONTRAST: Prescribed oral contrast ingested. RADIATION DOSE: 5.13 CTDIvol (mGy) ; Combined studies - Thorax/Abdomen/Pelvis MEDICAL HISTORY : None SURGICAL HISTORY : Hemorrhoidectomy. ENCOUNTER: Initial ACUITY: 1 day PAIN SCALE: 5/10 LOCATION: Bilateral abdomen. TECHNIQUE: Volumetric scanning of the abdomen and pelvis was performed. Using automated exposure control and ad justment of the mA and/or kV according to patient size, radiation dose was kept as low as reasonably achievable to obtain optimal diagnostic quality images. FINDINGS: LIVER: Heterogeneous than upper limits of normal size. No focal hepatic lesion. There is nonspecific distent ion of the gallbladder. I don't see a stone or ductal dilatation. SPLEEN: Normal size without lesion. PANCREAS: Within normal limits. KIDNEYS: Normal in size and shape. There is no mass, stone or hydronephrosis. ADRENAL GLANDS: Within normal limits. VASCULAR: There is atherosclerosis of the abdominal aorta and iliac arteries. No aneurysm. BOWEL/MESENTERY: No obstruction or inflammatory changes are demonstrated. No perceptible mass. Appendix is within norm al limits. There is no free fluid. No free air seen. ABDOMINAL WALL: Within normal limits. RETROPERITONEUM: There is no lymphadenopathy. BLADDER: No wall thickening or mass. REPRODUCTIVE: Within normal limits. INGUINAL: There is no lymphadenopathy or hernia. MUSCULOSKELETAL: Within normal limits for patient age. CONCLUSION: 1. Heterogeneous liver, nonspecific but possibly fatty infiltration, hepatocellular disease or a comb ination of the two. Nothing focal. 2. Nonspecific distention of the gallbladder. No stone, perceptible inflammatory changes or ductal di latation demonstrated. 3. No obstruction, inflammatory changes or perceptible mass of the GI tract. Bravo Mendez MD on May 17, 2016 at 16:08 Board Certified Radiologist. This report was verified electronically.
[2016-05-17 21:22] LABS: HEMATOCRIT 22.6 % (35.0-46.0)
[2016-05-17 21:26] LABS: REVIEW FLAG FINAL
[2016-05-18] VITALS: BP 125/60; PULSE 70; RESP 17; TEMP 97.8; O2SAT 92
[2016-05-18] MEDS: ACETAMINOPHEN 325 MG TAB PO PRN ×2 (02:57→13:23)
[2016-05-18 04:00] VITALS: BP 119/57; PULSE 65; RESP 16; TEMP 97.9; O2SAT 93
[2016-05-18] MEDS: LEVOTHYROXINE SODIUM 25 MCG TAB PO SCH (06:00)
[2016-05-18 06:59] LABS: BICARBONATE 23.6 MEQ/L (21.0-32.0); POTASSIUM 3.8 MEQ/L (3.5-5.1)
[2016-05-18 07:08] LABS: AUTOMATED NEUTROPHIL # 0.1 TH/MM3 (1.8-7.7); BASOPHIL % 0.2 % (0.0-2.0); EOSINOPHIL # 0.1 TH/MM3 (0-0.4); EOSINOPHIL % 2.5 % (0.0-4.0); HEMATOCRIT 21.5 % (35.0-46.0); LYMPH % 81.1 % (9.0-44.0); LYMPHOCYTE # 1.9 TH/MM3 (1.0-4.8); MEAN CELL VOLUME 94.9 FL (80.0-100.0); MEAN CORPUSCULAR HEMOGLOBIN 33.5 PG (27.0-34.0); MEAN CORPUSCULAR HGB CONC 35.4 % (32.0-36.0); MONO % 10.1 % (0.0-8.0); NEUT % 6.1 % (16.0-70.0); PLATELET COUNT 55 TH/MM3 (150-450); RED BLOOD COUNT 2.27 MIL/MM3 (4.00-5.30); RED CELL DISTRIBUTION WIDTH 16.8 % (11.6-17.2); WHITE BLOOD COUNT 2.3 TH/MM3 (4.0-11.0)
[2016-05-18 08:00] LABS: HEMO FLAGS AUTO DIFF
[2016-05-18 08:05] VITALS: BP 139/75; PULSE 66; RESP 17; TEMP 98.2; O2SAT 95
[2016-05-18] MEDS: PANTOPRAZOLE SODIUM 40 MG VIAL IV PUSH SCH (08:59)
[2016-05-18] MEDS: FUROSEMIDE 20 MG TAB PO SCH (08:59)
[2016-05-18] MEDS: CARISOPRODOL 350 MG TAB PO PRN ×2 (08:59→23:10)
[2016-05-18] MEDS: FAMOTIDINE 20 MG TAB PO SCH ×2 (09:00→22:00)
[2016-05-18] MEDS: POTASSIUM CHLORIDE 10 MEQ CAP PO SCH (09:00)
[2016-05-18] MEDS: GABAPENTIN 300 MG CAP PO SCH ×3 (09:00→18:46)
[2016-05-18 12:06] VITALS: BP 125/69; PULSE 62; RESP 17; TEMP 97.7; O2SAT 95
--- NOTE | 2016-05-18 12:50 | PD.ONC.PN ---
Subjective Subjective Remarks Afebrile overnight. Pt resting in bed with sister at bedside. She is asking about the results of her recent CT scans. She c/o a frontal headache that she has had since hospitalization. She feels as if her anxiety is contributing. Asking to have her Valium restarted while in the hospital. Objective Data Date Time Temp Pulse Resp B/P Pulse Ox O2 Delivery O2 Flow Rate FiO2 05/18/16 08:05 98.2 66 17 139/75 95 05/18/16 04:00 97.9 65 16 119/57 93 05/18/16 00:00 97.8 70 17 125/60 92 05/17/16 20:00 98.2 64 16 99/64 98 05/17/16 20:00 69 05/17/16 16:11 98.6 65 18 135/74 96 05/18/16 05/18/16 05/18/16 07:00 15:00 23:00 Intake Total 240 ml Balance 240 ml Result Diagram: 05/18/16 0357 05/18/16 0357 Laboratory Results Laboratory Tests Test 05/17/16 05/17/16 05/18/16 15:04 20:56 03:57 Hemoglobin 7.8 GM/DL 7.9 GM/DL 7.6 GM/DL Hematocrit 22.0 % 22.6 % 21.5 % Fibrinogen 241 mg/dL Ferritin 247 NG/ML Total Bilirubin 0.5 MG/DL Direct Bilirubin 0.1 MG/DL Indirect Bilirubin 0.4 MG/DL Aspartate Amino Transf 20 U/L (AST/SGOT) Alanine Aminotransferase 27 U/L (ALT/SGPT) Alkaline Phosphatase 64 U/L Lactate Dehydrogenase 279 U/L Total Protein 6.4 GM/DL Albumin 3.2 GM/DL Folate GREATER THAN 20.0 NG/ML White Blood Count 2.3 TH/MM3 Red Blood Count 2.27 MIL/MM3 Mean Corpuscular Volume 94.9 FL Mean Corpuscular Hemoglobin 33.5 PG Mean Corpuscular Hemoglobin 35.4 % Concent Red Cell Distribution Width 16.8 % Platelet Count 55 TH/MM3 Mean Platelet Volume 8.1 FL Neutrophils (%) (Auto) 6.1 % Lymphocytes (%) (Auto) 81.1 % Monocytes (%) (Auto) 10.1 % Eosinophils (%) (Auto) 2.5 % Basophils (%) (Auto) 0.2 % Neutrophils # (Auto) 0.1 TH/MM3 Lymphocytes # (Auto) 1.9 TH/MM3 Monocytes # (Auto) 0.2 TH/MM3 Eosinophils # (Auto) 0.1 TH/MM3 Basophils # (Auto) 0.0 TH/MM3 CBC Comment AUTO DIFF Sodium Level 145 MEQ/L Potassium Level 3.8 MEQ/L Chloride Level 112 MEQ/L Carbon Dioxide Level 23.6 MEQ/L Anion Gap 9 MEQ/L Blood Urea Nitrogen 10 MG/DL Creatinine 0.69 MG/DL Estimat Glomerular Filtration 87 ML/MIN Rate Random Glucose 78 MG/DL Calcium Level 8.2 MG/DL Administered Medications Medications (Trade) Dose Ordered Sig/Prashant Route PRN Reason Start Time Stop Time Status Last Admin Dose Admin Carisoprodol (Soma) 350 mg TID PRN PO PAIN 05/16/16 17:30 05/18/16 08:59 Furosemide (Lasix) 20 mg DAILY PO 05/17/16 09:00 05/18/16 08:59 Gabapentin (Neurontin) 300 mg TID PO 05/16/16 18:00 05/18/16 09:00 Levothyroxine Sodium (Synthroid) 25 mcg DAILY@06 PO 05/17/16 06:00 05/18/16 06:00 Potassium Chloride (KCl) 10 meq DAILY PO 05/17/16 09:00 05/18/16 09:00 Famotidine (Pepcid) 20 mg BID PO 05/16/16 21:00 05/18/16 09:00 IV Flush (NS Flush) 2 ml BID IV 05/16/16 21:00 05/17/16 09:10 Pantoprazole Sodium (Protonix Inj) 40 mg Q24H IV PUSH 05/17/16 09:00 05/18/16 08:59 Acetaminophen (Tylenol) 650 mg Q6HR PRN PO headache 05/17/16 06:30 05/18/16 02:57 Objective Remarks GENERAL: Middle aged female, lying in bed in no acute distress. SKIN: Warm and dry. HEAD: Normocephalic. EYES: No injection or drainage. NECK: Supple, trachea midline. CARDIOVASCULAR: +S1/S2. No murmurs, gallops or rubs. RESPIRATORY: Lungs clear throughout. Breathing easy and unlabored on RA. GASTROINTESTINAL: Abdomen soft, non-tender, nondistended. +BS. EXTREMITIES: No cyanosis, or edema. NEUROLOGICAL: No obvious focal deficit. Awake, alert, and oriented x3. PSYCHIATRIC: She gets slightly tearful when discussing her illness and hospitalization. Assessment/Plan Problem List: (1) Pancytopenia Status: Acute Plan: 05/18/16: No bleeding. Order placed for BMB with invasive radiology. -- Invasive radiology consulted for BMB, will likely happen tomorrow. -- We will transfuse for platelets less than 10k and a Hgb of less than 7. Hx: Pt had a hemorrhoidectomy three weeks ago and has had some rectal bleeding since that time. She presented to the ER on 05/16/16 with complaints of SOB and chest tightness and was found to be quite anemic with a Hgb of 5.8. She was transfused 2 units at that time. Hematology was consulted on 05/17/16 for pancytopenia. Pt had imaging done to r/o a lymphoproliferative process. A CT scan of the CAP was essentially negative for this. She will need a Bone Marrow Biopsy to determine cause of pancytopenia. (2) Rectal bleed Status: Acute Plan: -- Had hemorrhoid surgery three weeks ago with Dr. Schwartz. -- Controlled. No new bleeding. (3) GERD (gastroesophageal reflux disease) Status: Acute Plan: -- On Famotidine 20mg po BID (4) Hypothyroid Status: Acute Plan: -- On synthroid -- TSH normal at 1.7. Assessment 61 y/o female who presents to the ER with c/o chest tightness and SOB. Plan 1. Plan for bone marrow biopsy tomorrow with IR. 2. Monitor CBC daily 3. Transfuse for a Hgb less than 7 or platelets less than 10K. 4. Supportive care. Attending Statement The exam, history, and the medical decision-making described in the above note were completed with the assistance of the mid-level provider. I reviewed and agree with the findings presented. I attest that I had a [id number] encounter with the patient on the same day, and personally performed and documented my assessment and findings in the medical record. C/o headache. Will restart her valium. CBC stable but low. Review CT with them and no acute changes noted. Consult radiology for bone marrow biopsy. Marissa Juarez May 18, 2016 12:50 Ryan Tripp MD May 18, 2016 13:03
[2016-05-18] MEDS: DIAZEPAM 10 MG TAB PO SCH ×2 (13:22→22:00)
[2016-05-18 14:12] LABS: BANDS 1 % (0-6); EOSINOPHILS 5 % (0-4); POLYS (SEG NEUTROPHILS) 3 % (16-70); WBC DIFF SAMPLE 100
[2016-05-18 14:35] LABS: NEUTROPHIL # MANUAL DIFF 0.1 TH/MM3 (1.8-7.7); PLATELET ESTIMATE SMEAR LOW (NORMAL)
[2016-05-18 14:36] LABS: PLATELET MORPHOLOGY NORMAL (NORMAL); SCAN/DIFF FINAL DIFF MANUAL
--- NOTE | 2016-05-18 14:44 | HHI.PR ---
Subjective Remarks Patient seen in follow-up for pancytopenia and rectal bleeding related to hemorrhoids. No new complaints today and no further bleeding per patient. Hemoglobin 7.6 today Objective Vitals Vital Signs Date Time Temp Pulse Resp B/P Pulse Ox O2 Delivery O2 Flow Rate FiO2 05/18/16 12:06 97.7 62 17 125/69 95 05/18/16 10:00 20 05/18/16 08:05 98.2 66 17 139/75 95 05/18/16 04:00 97.9 65 16 119/57 93 05/18/16 00:00 97.8 70 17 125/60 92 05/17/16 20:00 98.2 64 16 99/64 98 05/17/16 20:00 69 05/17/16 16:11 98.6 65 18 135/74 96 I/O 05/17/16 05/17/16 05/17/16 05/18/16 05/18/16 05/18/16 07:00 15:00 23:00 07:00 15:00 23:00 Intake Total 360 ml 480 ml 240 ml 240 ml Output Total 3000 ml Balance 360 ml 480 ml -2760 ml 240 ml Intake Oral 360 ml 480 ml 240 ml 240 ml Output Urine Total 3000 ml # Voids 2 3 4 # Bowel Movements 1 Result Diagram: 05/18/16 0357 05/18/16 0357 Imaging Last Impressions Chest CT 05/17/16 0000 Signed Impressions: Service Date/Time: Tuesday, May 17, 2016 15:14 - CONCLUSION: 1. 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 There are trace to very small bilateral pleural effusions and mild cardiomegaly noted. 2. No lobar consolidation. 3. Upper limits of normal to mildly enlarged mediastinal and bilateral hilar lymph nodes, nonspecific but presumably reactive. Bravo Mendez MD Abdomen/Pelvis CT 05/17/16 0000 Signed Impressions: Service Date/Time: Tuesday, May 17, 2016 15:18 - CONCLUSION: 1. Heterogeneous liver, nonspecific but possibly fatty infiltration, hepatocellular disease or a combination of the two. Nothing focal. 2. Nonspecific distention of the gallbladder. No stone, perceptible inflammatory changes or ductal dilatation demonstrated. 3. No obstruction, inflammatory changes or perceptible mass of the GI tract. Bravo Mendez MD Chest X-Ray 05/16/16 0000 Signed Impressions: Service Date/Time: Monday, May 16, 2016 19:23 - CONCLUSION: No acute disease. Minimal interstitial densities likely chronic. Kilo Cotto MD Objective Remarks GENERAL: This is a well-nourished, well-developed patient, in no apparent distress. CARDIOVASCULAR: Regular rate and rhythm without murmurs, gallops, or rubs. RESPIRATORY: Clear to auscultation. Breath sounds equal bilaterally. No wheezes , rales, or rhonchi. GASTROINTESTINAL: Abdomen soft, non-tender, nondistended. Normal active bowel sounds MUSCULOSKELETAL: Extremities without clubbing, cyanosis, or edema. NEURO: Alert & Oriented x4 to person, place, time, situation. Moves all ext x4 A/P Problem List: (1) Pancytopenia ICD Code: D61.818 Status: Acute Plan: Patient with symptomatic bleeding after recent hemorrhoidectomy 3 weeks ago. No further bleeding per patient although Hemoccult in the ER has been positive. GI will plan for endoscopy on Thursday. Status post 2 units of packed red blood cells 05/06 Bone marrow biopsy pending Follow-up CBC Assessment and Plan d/c telem scd's Charline Pratt MD May 18, 2016 14:44
--- NOTE | 2016-05-18 15:01 | HHI.GIFU ---
Subjective Remarks Feeling better, no complaints of pain, no nausea, had one loose stool, no blood seen. (Neris Henry) Objective Vitals I&O Vital Signs Date Time Temp Pulse Resp B/P Pulse Ox O2 Delivery O2 Flow Rate FiO2 05/18/16 12:06 97.7 62 17 125/69 95 05/18/16 10:00 20 05/18/16 08:05 98.2 66 17 139/75 95 05/18/16 04:00 97.9 65 16 119/57 93 05/18/16 00:00 97.8 70 17 125/60 92 05/17/16 20:00 98.2 64 16 99/64 98 05/17/16 20:00 69 05/17/16 16:11 98.6 65 18 135/74 96 I/O 05/17/16 05/17/16 05/17/16 05/18/16 05/18/16 05/18/16 06:59 14:59 22:59 06:59 14:59 22:59 Intake Total 360 ml 480 ml 240 ml 240 ml Output Total 3000 ml Balance 360 ml 480 ml -2760 ml 240 ml Intake Oral 360 ml 480 ml 240 ml 240 ml Output Urine Total 3000 ml # Voids 2 3 4 # Bowel Movements 1 Laboratory Laboratory Tests Test 05/17/16 05/17/16 05/18/16 15:04 20:56 03:57 Hemoglobin 7.8 7.9 7.6 Hematocrit 22.0 22.6 21.5 Fibrinogen 241 Ferritin 247 Total Bilirubin 0.5 Direct Bilirubin 0.1 Indirect Bilirubin 0.4 Aspartate Amino Transf 20 (AST/SGOT) Alanine Aminotransferase 27 (ALT/SGPT) Alkaline Phosphatase 64 Lactate Dehydrogenase 279 Total Protein 6.4 Albumin 3.2 Folate GREATER THAN 20.0 White Blood Count 2.3 Red Blood Count 2.27 Mean Corpuscular Volume 94.9 Mean Corpuscular Hemoglobin 33.5 Mean Corpuscular Hemoglobin 35.4 Concent Red Cell Distribution Width 16.8 Platelet Count 55 Mean Platelet Volume 8.1 Neutrophils (%) (Auto) 6.1 Lymphocytes (%) (Auto) 81.1 Monocytes (%) (Auto) 10.1 Eosinophils (%) (Auto) 2.5 Basophils (%) (Auto) 0.2 Neutrophils # (Auto) 0.1 Lymphocytes # (Auto) 1.9 Monocytes # (Auto) 0.2 Eosinophils # (Auto) 0.1 Basophils # (Auto) 0.0 CBC Comment AUTO DIFF Differential Total Cells 100 Counted Neutrophils % (Manual) 3 Band Neutrophils % 1 Lymphocytes % 88 Monocytes % 3 Eosinophils % 5 Neutrophils # (Manual) 0.1 Differential Comment FINAL DIFF MANUAL Platelet Estimate LOW Platelet Morphology Comment NORMAL Sodium Level 145 Potassium Level 3.8 Chloride Level 112 Carbon Dioxide Level 23.6 Anion Gap 9 Blood Urea Nitrogen 10 Creatinine 0.69 Estimat Glomerular Filtration 87 Rate Random Glucose 78 Calcium Level 8.2 Imaging Last [address] 05/17/16 0000 Signed Impressions: Service Date/Time: Tuesday, May 17, 2016 15:14 - CONCLUSION: 1. 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 There are trace to very small bilateral pleural effusions and mild cardiomegaly noted. 2. No lobar consolidation. 3. Upper limits of normal to mildly enlarged mediastinal and bilateral hilar lymph nodes, nonspecific but presumably reactive. Bravo Mendez MD Abdomen/Pelvis CT 05/17/16 0000 Signed Impressions: Service Date/Time: Tuesday, May 17, 2016 15:18 - CONCLUSION: 1. Heterogeneous liver, nonspecific but possibly fatty infiltration, hepatocellular disease or a combination of the two. Nothing focal. 2. Nonspecific distention of the gallbladder. No stone, perceptible inflammatory changes or ductal dilatation demonstrated. 3. No obstruction, inflammatory changes or perceptible mass of the GI tract. Bravo Mendez MD Physical Exam HEENT: Pupils round and reactive to light; normocephalic; atraumatic; no jaundice. Throat is clear. NECK: Neck is supple, no JVD, no lymphadenopathy. CHEST: Chest is clear to auscultation and percussion. CARDIAC: Regular rate and rhythm with no murmur gallop or rubs. ABDOMEN: Soft, nondistended, nontender; no hepatosplenomegaly; bowel sounds are present in all four quadrants. EXTREMITIES: No clubbing, cyanosis, or edema. SKIN: Normal; no rash; no jaundice. [facility]: No focal deficits; alert and oriented times three. (Neris Henry) Assessment and Plan Assessment: (1) Acute blood loss anemia Plan: Inital H&H of 5.6/16.4 required PRBC's Today's H&H is 7.6/21.5 (2) GI bleed Plan: Positive FOBT No obvious rectal bleeding noted Symptoms started 3 weeks ago after hemorrhoidectomy (3) GERD (gastroesophageal reflux disease) Plan: continue PPI (4) Chronic constipation Plan: Continue measures to prevent constipation (5) Thrombocytopenia Plan: also neutropenia seen by hematology (6) Leukopenia Plan: Neutropenic precautions Bone marrow bx in am (7) Fatty liver Plan Abdomen/Pelvis CT 05/17/16>>> : 1. Heterogeneous liver, nonspecific but possibly fatty infiltration, hepatocellular disease or a combination of the two. Nothing focal. 2. Nonspecific distention of the gallbladder. No stone, perceptible inflammatory changes or ductal dilatation demonstrated. 3. No obstruction, inflammatory changes or perceptible mass of the GI tract. This is a 61 year old female with acute blood loss anemia and is very symptomatic with shortness of breath and weakness and fatigue. Had positive fecal occult blood no blood seen in her stools at home. Has chronic constipation requiring use of enemas and Dulcolax. Last colonoscopy was 2014 which she states was normal and normal EGD 3 months ago. She will need a colonoscopy and EGD once platelets are stable. She is neutropenic on precautions , seen by hematology will have a bone marrow bx tomorrow. Plan -Colonoscopy/EGD on Thursday -Consent for EGD -Bone marrow Bx tomorrow -Continue PPI -Laxatives as need for constipation -Follow H&H, transfuse PRBC's PRN to keep H&H >7.0 -Call GI for any bleeding -Supportive care Thank you for the consult Patient was seen and examined by myself and Dr. Lance, this consult is written on his behalf. (Neris Henry) Physician Comments Seen and examined, plan as above, for Endoscopic evaluation on Thursday. (Kirsten Lance MD) Problem Qualifiers (1) GI bleed: Qualified Code: K92.2 - Gastrointestinal hemorrhage, unspecified gastrointestinal hemorrhage type (2) GERD (gastroesophageal reflux disease): Qualified Code: K21.9 - Gastroesophageal reflux disease, esophagitis presence not specified Neris Henry May 18, 2016 15:01 Kirsten Lance MD May 18, 2016 16:16
[2016-05-18 16:05] VITALS: BP 125/58; PULSE 64; RESP 18; TEMP 98.5; O2SAT 92
[2016-05-18 20:50] VITALS: BP 152/65; PULSE 79; RESP 18; TEMP 98.3; O2SAT 94
[2016-05-18] MEDS: SODIUM CHLORIDE 0.9% FLUSH 5 ML FLUSH IV PRN (22:00)
[2016-05-18] MEDS: SODIUM CHLORIDE 0.9% FLUSH 5 ML FLUSH IV SCH (22:00)
[2016-05-19] VITALS: BP 136/63; PULSE 80; RESP 17; TEMP 98.7; O2SAT 95
[2016-05-19] MEDS: ACETAMINOPHEN 325 MG TAB PO PRN ×2 (02:09→17:48)
[2016-05-19 04:00] VITALS: BP 124/60; PULSE 66; RESP 16; TEMP 97.6; O2SAT 94
[2016-05-19] MEDS: LEVOTHYROXINE SODIUM 25 MCG TAB PO SCH (05:49)
[2016-05-19 07:50] VITALS: BP 130/61; PULSE 59; RESP 20; TEMP 97.6; O2SAT 95
[2016-05-19 07:54] LABS: HEMATOCRIT 23.5 % (35.0-46.0); MEAN CELL VOLUME 93.7 FL (80.0-100.0); MEAN CORPUSCULAR HEMOGLOBIN 32.9 PG (27.0-34.0); MEAN CORPUSCULAR HGB CONC 35.1 % (32.0-36.0); PLATELET COUNT 59 TH/MM3 (150-450); RED CELL DISTRIBUTION WIDTH 15.9 % (11.6-17.2); WHITE BLOOD COUNT 2.3 TH/MM3 (4.0-11.0)
[2016-05-19 07:56] LABS: HEMO FLAGS AUTO DIFF
[2016-05-19 09:05] LABS: BANDS 5 % (0-6); EOSINOPHILS 3 % (0-4); POLYS (SEG NEUTROPHILS) 7 % (16-70); WBC DIFF SAMPLE 100
[2016-05-19 09:06] LABS: NEUTROPHIL # MANUAL DIFF 0.3 TH/MM3 (1.8-7.7); PLATELET ESTIMATE SMEAR LOW (NORMAL); PLATELET MORPHOLOGY NORMAL (NORMAL); SCAN/DIFF FINAL DIFF MANUAL
[2016-05-19] MEDS: POTASSIUM CHLORIDE 10 MEQ CAP PO SCH (09:27)
[2016-05-19] MEDS: FAMOTIDINE 20 MG TAB PO SCH ×2 (09:27→20:58)
[2016-05-19] MEDS: PANTOPRAZOLE SODIUM 40 MG VIAL IV PUSH SCH (09:27)
[2016-05-19] MEDS: SODIUM CHLORIDE 0.9% FLUSH 5 ML FLUSH IV SCH ×2 (09:28→21:01)
[2016-05-19] MEDS: DIAZEPAM 10 MG TAB PO SCH ×2 (09:28→20:58)
[2016-05-19] MEDS: GABAPENTIN 300 MG CAP PO SCH ×3 (09:28→17:48)
[2016-05-19] MEDS: FUROSEMIDE 20 MG TAB PO SCH (09:28)
[2016-05-19] MEDS: CARISOPRODOL 350 MG TAB PO PRN (09:35)
--- NOTE | 2016-05-19 10:24 | HHI.PR ---
Subjective Remarks Patient seen and evaluated today in follow-up for pancytopenia. Bone marrow biopsy rescheduled for tomorrow Objective Vitals Vital Signs Date Time Temp Pulse Resp B/P Pulse Ox O2 Delivery O2 Flow Rate FiO2 05/19/16 07:50 97.6 59 20 130/61 95 05/19/16 04:00 97.6 66 16 124/60 94 05/19/16 00:00 98.7 80 17 136/63 95 05/18/16 20:50 98.3 79 18 152/65 94 05/18/16 16:05 98.5 64 18 125/58 92 05/18/16 12:06 97.7 62 17 125/69 95 I/O 05/18/16 05/18/16 05/18/16 05/19/16 05/19/16 05/19/16 06:59 14:59 22:59 06:59 14:59 22:59 Intake Total 240 ml 360 ml 480 ml Balance 240 ml 360 ml 480 ml Intake Oral 240 ml 360 ml 480 ml # Voids 4 5 3 4 # Bowel Movements 0 0 Result Diagram: 05/19/16 0715 05/18/16 0357 Objective Remarks GENERAL: This is a well-nourished, well-developed patient, in no apparent distress. CARDIOVASCULAR: Regular rate and rhythm without murmurs, gallops, or rubs. RESPIRATORY: Clear to auscultation. Breath sounds equal bilaterally. No wheezes , rales, or rhonchi. GASTROINTESTINAL: Abdomen soft, non-tender, nondistended. Normal active bowel sounds MUSCULOSKELETAL: Extremities without clubbing, cyanosis, or edema. NEURO: Alert & Oriented x4 to person, place, time, situation. Moves all ext x4 A/P Problem List: (1) Pancytopenia ICD Code: D61.818 Status: Acute Plan: Likely tomorrow Patient with symptomatic bleeding after recent hemorrhoidectomy 3 weeks ago. No further bleeding per patient although Hemoccult in the ER has been positive. GI will plan for endoscopy on Thursday. Status post 2 units of packed red blood cells 05/06 Bone marrow biopsy pending Follow-up CBC (2) GI bleed ICD Code: K92.2 Status: Acute Plan: For endoscopy tomorrow Assessment and Plan scd's Problem Qualifiers (1) GI bleed: Qualified Code: K92.2 - Gastrointestinal hemorrhage, unspecified gastrointestinal hemorrhage type Charline Pratt MD May 19, 2016 10:24
[2016-05-19 11:50] VITALS: BP 140/61; PULSE 57; RESP 20; TEMP 97.2; O2SAT 96
--- NOTE | 2016-05-19 11:53 | PD.ONC.PN ---
Subjective Subjective Remarks No CP/SOB. No bleeding. Objective Data Date Time Temp Pulse Resp B/P Pulse Ox O2 Delivery O2 Flow Rate FiO2 05/19/16 07:50 97.6 59 20 130/61 95 05/19/16 04:00 97.6 66 16 124/60 94 05/19/16 00:00 98.7 80 17 136/63 95 05/18/16 20:50 98.3 79 18 152/65 94 05/18/16 16:05 98.5 64 18 125/58 92 05/18/16 12:06 97.7 62 17 125/69 95 05/19/16 05/19/16 05/19/16 07:00 15:00 23:00 Intake Total 480 ml Balance 480 ml Result Diagram: 05/19/16 0715 05/18/16 0357 Laboratory Results Laboratory Tests Test 05/19/16 07:15 White Blood Count 2.3 TH/MM3 Red Blood Count 2.50 MIL/MM3 Hemoglobin 8.2 GM/DL Hematocrit 23.5 % Mean Corpuscular Volume 93.7 FL Mean Corpuscular Hemoglobin 32.9 PG Mean Corpuscular Hemoglobin 35.1 % Concent Red Cell Distribution Width 15.9 % Platelet Count 59 TH/MM3 Mean Platelet Volume 8.1 FL Neutrophils (%) (Auto) % Lymphocytes (%) (Auto) % Monocytes (%) (Auto) % Eosinophils (%) (Auto) % Basophils (%) (Auto) % Neutrophils # (Auto) TH/MM3 Lymphocytes # (Auto) TH/MM3 Monocytes # (Auto) TH/MM3 Eosinophils # (Auto) TH/MM3 Basophils # (Auto) TH/MM3 CBC Comment AUTO DIFF Differential Total Cells 100 Counted Neutrophils % (Manual) 7 % Band Neutrophils % 5 % Lymphocytes % 84 % Monocytes % 1 % Eosinophils % 3 % Neutrophils # (Manual) 0.3 TH/MM3 Differential Comment FINAL DIFF MANUAL Platelet Estimate LOW Platelet Morphology Comment NORMAL Red Cell Morphology Comment NORMAL Administered Medications Medications (Trade) Dose Ordered Sig/Prashant Route PRN Reason Start Time Stop Time Status Last Admin Dose Admin Carisoprodol (Soma) 350 mg TID PRN PO PAIN 05/16/16 17:30 05/19/16 09:35 Furosemide (Lasix) 20 mg DAILY PO 05/17/16 09:00 05/19/16 09:28 Gabapentin (Neurontin) 300 mg TID PO 05/16/16 18:00 05/19/16 09:28 Levothyroxine Sodium (Synthroid) 25 mcg DAILY@06 PO 05/17/16 06:00 05/19/16 05:49 Potassium Chloride (KCl) 10 meq DAILY PO 05/17/16 09:00 05/19/16 09:27 Famotidine (Pepcid) 20 mg BID PO 05/16/16 21:00 05/19/16 09:27 IV Flush (NS Flush) 2 ml BID IV 05/16/16 21:00 05/19/16 09:28 Pantoprazole Sodium (Protonix Inj) 40 mg Q24H IV PUSH 05/17/16 09:00 05/19/16 09:27 Acetaminophen (Tylenol) 650 mg Q6HR PRN PO headache 05/17/16 06:30 05/19/16 02:09 Diazepam (Valium) 10 mg Q12HR PO 05/18/16 12:00 05/19/16 09:28 Objective Remarks GENERAL: Well-nourished, well-developed patient. SKIN: Warm and dry. Pale HEAD: Normocephalic. EYES: No scleral icterus. No injection or drainage. NECK: Supple, trachea midline. No JVD or lymphadenopathy. LYMPHATIC: No adenopathy. CARDIOVASCULAR: Regular rate and rhythm without murmurs. RESPIRATORY: Breath sounds equal bilaterally. No accessory muscle use. GASTROINTESTINAL: Abdomen soft, non-tender, nondistended. EXTREMITIES: No cyanosis, or edema. MUSCULOSKELETAL: Adequate muscle tone. NEUROLOGICAL: No obvious focal deficit. Awake, alert, and oriented x3. PSYCHIATRIC: Appropriate mood and affect; insight and judgment normal. Assessment/Plan Problem List: (1) Pancytopenia Status: Acute Plan: 05/19/16: Counts are stable, no transfusion needed. 05/18/16: No bleeding. Order placed for BMB with invasive radiology. -- Invasive radiology consulted for BMB, will likely happen tomorrow. -- We will transfuse for platelets less than 10k and a Hgb of less than 7. Hx: Pt had a hemorrhoidectomy three weeks ago and has had some rectal bleeding since that time. She presented to the ER on 05/16/16 with complaints of SOB and chest tightness and was found to be quite anemic with a Hgb of 5.8. She was transfused 2 units at that time. Hematology was consulted on 05/17/16 for pancytopenia. Pt had imaging done to r/o a lymphoproliferative process. A CT scan of the CAP was essentially negative for this. She will need a Bone Marrow Biopsy to determine cause of pancytopenia. (2) Rectal bleed Status: Acute Plan: -- Had hemorrhoid surgery three weeks ago with Dr. Schwartz. -- Controlled. No new bleeding. (3) GERD (gastroesophageal reflux disease) Status: Acute Plan: -- On Famotidine 20mg po BID (4) Hypothyroid Status: Acute Plan: -- On synthroid -- TSH normal at 1.7. Assessment 61 y/o female who presents to the ER with c/o chest tightness and SOB. Plan 1. Plan for bone marrow biopsy tomorrow with IR. 2. Monitor CBC daily 3. Transfuse for a Hgb less than 7 or platelets less than 10K. 4. Await EGD/Colonoscopy tomorrow. Problem Qualifiers (1) GERD (gastroesophageal reflux disease): Qualified Code: K21.9 - Gastroesophageal reflux disease, esophagitis presence not specified Ryan Tripp MD May 19, 2016 11:53
[2016-05-19 15:45] VITALS: BP 139/63; PULSE 63; RESP 20; TEMP 96.3; O2SAT 96
[2016-05-19] MEDS ORDERED: PEG (High)/E-LYTE SOLN 4000 ML BTL PO ONE (16:00)
[2016-05-19 20:00] VITALS: BP 118/59; PULSE 100; RESP 18; TEMP 97.8; O2SAT 92
[2016-05-20] VITALS (8 sets, daily range): BP systolic 107–134; BP diastolic 50–58; PULSE 60–92; RESP 16–20; TEMP 96.5–98.6; O2SAT 90–96
[2016-05-20] MEDS: CARISOPRODOL 350 MG TAB PO PRN (00:04)
[2016-05-20] MEDS: ACETAMINOPHEN 325 MG TAB PO PRN (00:04)
[2016-05-20] MEDS: LACTATED RINGER'S 1000 ML IV SCH ×2 (01:15→21:57)
[2016-05-20] MEDS: LEVOTHYROXINE SODIUM 25 MCG TAB PO SCH (05:00)
[2016-05-20] MEDS ORDERED: ACETAMINOPHEN 325 MG TAB PO ONE (05:00)
[2016-05-20 07:51] LABS: HEMATOCRIT 25.4 % (35.0-46.0); MEAN CELL VOLUME 93.4 FL (80.0-100.0); MEAN CORPUSCULAR HEMOGLOBIN 32.5 PG (27.0-34.0); MEAN CORPUSCULAR HGB CONC 34.9 % (32.0-36.0); PLATELET COUNT 59 TH/MM3 (150-450); RED BLOOD COUNT 2.72 MIL/MM3 (4.00-5.30); RED CELL DISTRIBUTION WIDTH 15.3 % (11.6-17.2); WHITE BLOOD COUNT 2.3 TH/MM3 (4.0-11.0)
[2016-05-20 07:58] LABS: HEMO FLAGS AUTO DIFF
[2016-05-20] MEDS ORDERED: LIDOCAINE 1%/EPINEPHrine 1:100,000 SOLN 20 ML VIAL ONE (08:36)
[2016-05-20] MEDS ORDERED: SODIUM BICARBONATE 8.4% INJ 50 ML ONE (08:36)
[2016-05-20] MEDS ORDERED: fentaNYL CITRATE 250 MCG/5 ML AMP ONE (08:43)
[2016-05-20] MEDS ORDERED: MIDAZOLAM HCL 5 MG/5 ML VIAL ONE (08:43)
[2016-05-20] MEDS: GABAPENTIN 300 MG CAP PO SCH ×3 (09:00→18:34)
[2016-05-20] MEDS: FAMOTIDINE 20 MG TAB PO SCH ×2 (09:00→21:49)
[2016-05-20 10:39] LABS: BONE MARROW PROCESSING COMPLETE; IRON STAIN DONE; JENNER GIEMSA STAIN DONE
--- NOTE | 2016-05-20 11:27 | RADRPT ---
EXAM DATE/TIME: 05/20/2016 09:13 [facility] COMPARISON: No previous studies available for comparison. INDICATIONS : Pancytopenia. SEDATION TIME: 30 minutes BIOPSY SITE: Left iliac MEDICATION(S): 1.) 4 mg midazolam (Versed) IV 2.) 250 mcg fentanyl (Sublimaze) IV DEVICE(S): 1.) 11 gauge Bone biopsy needle MEDICAL HISTORY : None. SURGICAL HISTORY : None. ENCOUNTER: Initial ACUITY: 1 day PAIN SCORE: 3/10 LOCATION: back A total of one core specimen(s) were obtained and sent to the laboratory for pathologic evaluation. PROCEDURE: 1. CT guided bone marrow biopsy. 2. Conscious sedation with continuous EKG and oximetry monitoring. Prior to the procedure informed consent was obtained. Any appropriate prior imaging studies were rev iewed. The site was prepped in a sterile fashion. Full sterile technique was used, including cap, mask, primo rile gloves and gown and a large sterile sheet. Hand hygiene and 2% chlorhexidine and/or betadine/al cohol prep was utilized per protocol for cutaneous antisepsis. The skin and subcutaneous tissues wer e infiltrated with local anesthetic solution. With CT guidance the previously identified target was localized. Biopsy was performed using the presc ribed needle as above. Following biopsy marrow aspiration was performed with repeat puncture. Adequa te hemostasis was obtained with compression at the puncture site. Follow-up CT scan reveals no hemorrhage. Conscious sedation was performed with the prescribed dosages and duration as above. The patient katrina ated the procedure well and there were no complications. EKG and oximetry remained stable throughout the procedure. The patient was sent to Radiology Outpatient Unit in stable condition. CONCLUSION: 1. Uncomplicated CT guided bone marrow aspirate. 2. Uncomplicated CT guided bone marrow biopsy. Yazan Saucedo MD on May 20, 2016 at 11:25 Board Certified Radiologist. This report was verified electronically.
[2016-05-20 11:58] LABS: BANDS 1 % (0-6); EOSINOPHILS 1 % (0-4); POLYS (SEG NEUTROPHILS) 7 % (16-70); WBC DIFF SAMPLE 100
[2016-05-20 11:59] LABS: NEUTROPHIL # MANUAL DIFF 0.2 TH/MM3 (1.8-7.7); PLATELET ESTIMATE SMEAR LOW (NORMAL); PLATELET MORPHOLOGY NORMAL (NORMAL)
[2016-05-20 12:05] LABS: SCAN/DIFF FINAL DIFF MANUAL
[2016-05-20] MEDS ORDERED: PROPOFOL 200 MG/20 ML AMP IV ONE (12:55)
--- NOTE | 2016-05-20 13:33 | HHI.GIFU ---
Subjective Remarks doing ok, no sign of active bleed today Objective Vitals I&O Vital Signs Date Time Temp Pulse Resp B/P Pulse Ox O2 Delivery O2 Flow Rate FiO2 05/20/16 12:25 98.6 75 20 124/50 93 05/20/16 10:10 73 20 124/50 90 05/20/16 09:50 98.6 75 20 134/52 93 05/20/16 08:00 97.7 60 18 125/58 95 05/20/16 04:00 96.6 64 16 107/56 93 05/20/16 00:00 96.7 65 18 114/55 96 05/19/16 20:00 97.8 100 18 118/59 92 05/19/16 15:45 96.3 63 20 139/63 96 I/O 05/19/16 05/19/16 05/19/16 05/20/16 05/20/16 05/20/16 06:59 14:59 22:59 06:59 14:59 22:59 Intake Total 480 ml 0 ml 240 ml Output Total 0 ml Balance 480 ml 0 ml 240 ml Intake Oral 480 ml 0 ml 240 ml Stool Total 0 ml # Voids 4 8 1 2 # Bowel Movements 3 Laboratory Laboratory Tests Test 05/20/16 07:01 White Blood Count 2.3 Red Blood Count 2.72 Hemoglobin 8.8 Hematocrit 25.4 Mean Corpuscular Volume 93.4 Mean Corpuscular Hemoglobin 32.5 Mean Corpuscular Hemoglobin 34.9 Concent Red Cell Distribution Width 15.3 Platelet Count 59 Mean Platelet Volume 7.7 Neutrophils (%) (Auto) Lymphocytes (%) (Auto) Monocytes (%) (Auto) Eosinophils (%) (Auto) Basophils (%) (Auto) Neutrophils # (Auto) Lymphocytes # (Auto) Monocytes # (Auto) Eosinophils # (Auto) Basophils # (Auto) CBC Comment AUTO DIFF Differential Total Cells 100 Counted Neutrophils % (Manual) 7 Band Neutrophils % 1 Lymphocytes % 86 Monocytes % 5 Eosinophils % 1 Neutrophils # (Manual) 0.2 Differential Comment FINAL DIFF MANUAL Platelet Estimate LOW Platelet Morphology Comment NORMAL Physical Exam HEENT: Pupils round and reactive to light; normocephalic; atraumatic; no jaundice. Throat is clear. NECK: Neck is supple, no JVD, no lymphadenopathy. CHEST: Chest is clear to auscultation and percussion. CARDIAC: Regular rate and rhythm with no murmur gallop or rubs. ABDOMEN: Soft, nondistended, nontender; no hepatosplenomegaly; bowel sounds are present in all four quadrants. EXTREMITIES: No clubbing, cyanosis, or edema. SKIN: Normal; no rash; no jaundice. 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 Assessment and Plan Assessment: (1) Acute blood loss anemia Plan: HGB stable EGD showed gastritis, flat folds in small bowel, Bx done rectal ulcer, could be from surgery Bx done O/W normal. may feed patient, continue PPI. Ok to DC home from GI. (2) GI bleed Plan: Positive FOBT No obvious rectal bleeding noted Symptoms started 3 weeks ago after hemorrhoidectomy (3) GERD (gastroesophageal reflux disease) Plan: continue PPI (4) Chronic constipation Plan: Continue measures to prevent constipation (5) Thrombocytopenia Plan: also neutropenia seen by hematology (6) Leukopenia Plan: Neutropenic precautions Bone marrow bx in am (7) Fatty liver Plan Abdomen/Pelvis CT 05/17/16>>> : 1. Heterogeneous liver, nonspecific but possibly fatty infiltration, hepatocellular disease or a combination of the two. Nothing focal. 2. Nonspecific distention of the gallbladder. No stone, perceptible inflammatory changes or ductal dilatation demonstrated. 3. No obstruction, inflammatory changes or perceptible mass of the GI tract. This is a 61 year old female with acute blood loss anemia and is very symptomatic with shortness of breath and weakness and fatigue. Had positive fecal occult blood no blood seen in her stools at home. Has chronic constipation requiring use of enemas and Dulcolax. Last colonoscopy was 2014 which she states was normal and normal EGD 3 months ago. She will need a colonoscopy and EGD once platelets are stable. She is neutropenic on precautions , seen by hematology will have a bone marrow bx tomorrow. Plan -Colonoscopy/EGD on Thursday -Consent for EGD -Bone marrow Bx tomorrow -Continue PPI -Laxatives as need for constipation -Follow H&H, transfuse PRBC's PRN to keep H&H >7.0 -Call GI for any bleeding -Supportive care Thank you for the consult Patient was seen and examined by myself and Dr. Lance, this consult is written on his behalf. Problem Qualifiers (1) GI bleed: Qualified Code: K92.2 - Gastrointestinal hemorrhage, unspecified gastrointestinal hemorrhage type (2) GERD (gastroesophageal reflux disease): Qualified Code: K21.9 - Gastroesophageal reflux disease, esophagitis presence not specified William Chinchilla MD May 20, 2016 13:33
--- NOTE | 2016-05-20 14:06 | PD.ONC.PN ---
Subjective Subjective Remarks Afebrile overnight. Patient tolerated bone marrow biopsy and EGD colonoscopy this AM. She is hungry and wants to eat. She denies any pain. Objective Data Date Time Temp Pulse Resp B/P Pulse Ox O2 Delivery O2 Flow Rate FiO2 05/20/16 12:25 98.6 75 20 124/50 93 05/20/16 10:10 73 20 124/50 90 05/20/16 09:50 98.6 75 20 134/52 93 05/20/16 08:00 97.7 60 18 125/58 95 05/20/16 04:00 96.6 64 16 107/56 93 05/20/16 00:00 96.7 65 18 114/55 96 05/19/16 20:00 97.8 100 18 118/59 92 05/19/16 15:45 96.3 63 20 139/63 96 05/20/16 05/20/16 05/20/16 07:00 15:00 23:00 Intake Total 350 ml Balance 350 ml Result Diagram: 05/20/16 0701 05/18/16 0357 Laboratory Results Laboratory Tests Test 05/20/16 07:01 White Blood Count 2.3 TH/MM3 Red Blood Count 2.72 MIL/MM3 Hemoglobin 8.8 GM/DL Hematocrit 25.4 % Mean Corpuscular Volume 93.4 FL Mean Corpuscular Hemoglobin 32.5 PG Mean Corpuscular Hemoglobin 34.9 % Concent Red Cell Distribution Width 15.3 % Platelet Count 59 TH/MM3 Mean Platelet Volume 7.7 FL Neutrophils (%) (Auto) % Lymphocytes (%) (Auto) % Monocytes (%) (Auto) % Eosinophils (%) (Auto) % Basophils (%) (Auto) % Neutrophils # (Auto) TH/MM3 Lymphocytes # (Auto) TH/MM3 Monocytes # (Auto) TH/MM3 Eosinophils # (Auto) TH/MM3 Basophils # (Auto) TH/MM3 CBC Comment AUTO DIFF Differential Total Cells 100 Counted Neutrophils % (Manual) 7 % Band Neutrophils % 1 % Lymphocytes % 86 % Monocytes % 5 % Eosinophils % 1 % Neutrophils # (Manual) 0.2 TH/MM3 Differential Comment FINAL DIFF MANUAL Platelet Estimate LOW Platelet Morphology Comment NORMAL Imaging Studies Last 24 hours Impressions Bone Biopsy CT 05/20/16 0846 Signed Impressions: Service Date/Time: Friday, May 20, 2016 09:13 - CONCLUSION: 1. Uncomplicated CT guided bone marrow aspirate. 2. Uncomplicated CT guided bone marrow biopsy. Yazan Saucedo MD Administered Medications Medications (Trade) Dose Ordered Sig/Prashant Route PRN Reason Start Time Stop Time Status Last Admin Dose Admin Carisoprodol (Soma) 350 mg TID PRN PO PAIN 05/16/16 17:30 05/20/16 00:04 Furosemide (Lasix) 20 mg DAILY PO 05/17/16 09:00 05/19/16 09:28 Gabapentin (Neurontin) 300 mg TID PO 05/16/16 18:00 05/19/16 17:48 Levothyroxine Sodium (Synthroid) 25 mcg DAILY@06 PO 05/17/16 06:00 05/20/16 05:00 Potassium Chloride (KCl) 10 meq DAILY PO 05/17/16 09:00 05/19/16 09:27 Famotidine (Pepcid) 20 mg BID PO 05/16/16 21:00 05/19/16 20:58 IV Flush (NS Flush) 2 ml BID IV 05/16/16 21:00 05/19/16 21:01 Pantoprazole Sodium (Protonix Inj) 40 mg Q24H IV PUSH 05/17/16 09:00 05/19/16 09:27 Acetaminophen (Tylenol) 650 mg Q6HR PRN PO headache 05/17/16 06:30 05/20/16 00:04 Diazepam (Valium) 10 mg Q12HR PO 05/18/16 12:00 05/19/16 20:58 Objective Remarks GENERAL: Middle aged female, sitting up in bed in [facility]. SKIN: Warm and dry. HEAD: Normocephalic. EYES: No injection or drainage. NECK: Supple, trachea midline. CARDIOVASCULAR: Regular rate and rhythm RESPIRATORY: Breath sounds equal bilaterally. No accessory muscle use. GASTROINTESTINAL: Abdomen soft, non-tender, nondistended. EXTREMITIES: No cyanosis MUSCULOSKELETAL: Adequate muscle tone. NEUROLOGICAL: No obvious focal deficit. Awake, alert, and oriented x3. Assessment/Plan Problem List: (1) Pancytopenia Status: Acute Plan: 05/20/15: counts remain stable. bone marrow biopsy completed today 05/19/16: Counts are stable, no transfusion needed. 05/18/16: No bleeding. Order placed for BMB with invasive radiology. -- We will transfuse for platelets less than 10k and a Hgb of less than 7. Hx: Pt had a hemorrhoidectomy three weeks ago and has had some rectal bleeding since that time. She presented to the ER on 05/16/16 with complaints of SOB and chest tightness and was found to be quite anemic with a Hgb of 5.8. She was transfused 2 units at that time. Hematology was consulted on 05/17/16 for pancytopenia. Pt had imaging done to r/o a lymphoproliferative process. A CT scan of the CAP was essentially negative for this. She will need a Bone Marrow Biopsy to determine cause of pancytopenia. (2) Rectal bleed Status: Acute Plan: EGD/colonoscopy on 05/20/15 showed gastritis, irregular Z line and rectal nodule --GI following. -- Had hemorrhoid surgery three weeks ago with Dr. Schwartz. -- Controlled. No new bleeding. (3) GERD (gastroesophageal reflux disease) Status: Acute Plan: -- On Famotidine 20mg po BID Assessment 61 y/o female who presents to the ER with c/o chest tightness and SOB. Plan 1. await pathology from bone marrow biopsy 2. no transfusion today 3. monitor CBC Attending Statement The exam, history, and the medical decision-making described in the above note were completed with the assistance of the mid-level provider. I reviewed and agree with the findings presented. I attest that I had a [id number] encounter with the patient on the same day, and personally performed and documented my assessment and findings in the medical record. Had headache. No bleeding. Await head CT. Await bone marrow biopsy. Blood counts are stable. Monitor CBC. Problem Qualifiers (1) GERD (gastroesophageal reflux disease): Qualified Code: K21.9 - Gastroesophageal reflux disease, esophagitis presence not specified Radha Lawrence May 20, 2016 14:06 Ryan Tripp MD May 20, 2016 15:42
[2016-05-20] MEDS: DIAZEPAM 10 MG TAB PO SCH ×2 (14:24→21:49)
[2016-05-20] MEDS: FUROSEMIDE 20 MG TAB PO SCH (14:24)
[2016-05-20] MEDS: POTASSIUM CHLORIDE 10 MEQ CAP PO SCH (14:24)
[2016-05-20] MEDS: oxyCODONE/ACETAMINOPHEN 5 MG/325 MG TAB PO PRN ×3 (14:25→22:31)
[2016-05-20] MEDS: SODIUM CHLORIDE 0.9% FLUSH 5 ML FLUSH IV SCH ×2 (14:27→21:56)
[2016-05-20] MEDS: PANTOPRAZOLE SODIUM 40 MG VIAL IV PUSH SCH (14:27)
--- NOTE | 2016-05-20 14:36 | HHI.PR ---
Subjective Remarks The pt complained of a headache for the past few days that was tight around her head. She also mention difficulty with reading over the past few days. She has pain from the bone marrow biopsies. Looking forward to eating. Discussed with nursing. Objective Vitals Vital Signs Date Time Temp Pulse Resp B/P Pulse Ox O2 Delivery O2 Flow Rate FiO2 05/20/16 12:25 98.6 75 20 124/50 93 05/20/16 10:10 73 20 124/50 90 05/20/16 09:50 98.6 75 20 134/52 93 05/20/16 08:00 97.7 60 18 125/58 95 05/20/16 04:00 96.6 64 16 107/56 93 05/20/16 00:00 96.7 65 18 114/55 96 05/19/16 20:00 97.8 100 18 118/59 92 05/19/16 15:45 96.3 63 20 139/63 96 I/O 05/19/16 05/19/16 05/19/16 05/20/16 05/20/16 05/20/16 07:00 15:00 23:00 07:00 15:00 23:00 Intake Total 480 ml 0 ml 240 ml 350 ml Output Total 0 ml Balance 480 ml 0 ml 240 ml 350 ml Intake Oral 480 ml 0 ml 240 ml IV Total 350 ml Stool Total 0 ml # Voids 4 8 1 2 # Bowel Movements 3 Result Diagram: 05/20/16 0701 05/18/16 0357 Imaging Last Impressions Bone Biopsy CT 05/20/16 0846 Signed Impressions: Service Date/Time: Friday, May 20, 2016 09:13 - CONCLUSION: 1. Uncomplicated CT guided bone marrow aspirate. 2. Uncomplicated CT guided bone marrow biopsy. Yazan Saucedo MD Chest CT 05/17/16 0000 Signed Impressions: Service Date/Time: Tuesday, May 17, 2016 15:14 - CONCLUSION: 1. 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 There are trace to very small bilateral pleural effusions and mild cardiomegaly noted. 2. No lobar consolidation. 3. Upper limits of normal to mildly enlarged mediastinal and bilateral hilar lymph nodes, nonspecific but presumably reactive. Bravo Mendez MD Abdomen/Pelvis CT 05/17/16 0000 Signed Impressions: Service Date/Time: Tuesday, May 17, 2016 15:18 - CONCLUSION: 1. Heterogeneous liver, nonspecific but possibly fatty infiltration, hepatocellular disease or a combination of the two. Nothing focal. 2. Nonspecific distention of the gallbladder. No stone, perceptible inflammatory changes or ductal dilatation demonstrated. 3. No obstruction, inflammatory changes or perceptible mass of the GI tract. Bravo Mendez MD Chest X-Ray 05/16/16 0000 Signed Impressions: Service Date/Time: Monday, May 16, 2016 19:23 - CONCLUSION: No acute disease. Minimal interstitial densities likely chronic. Kilo Cotto MD Objective Remarks GENERAL: This is a well-nourished, well-developed patient, in no apparent distress. HEENT: Tenderness to palpation around frontal cranium. CARDIOVASCULAR: Regular rate and rhythm without murmurs, gallops, or rubs. RESPIRATORY: Clear to auscultation. Breath sounds equal bilaterally. No wheezes , rales, or rhonchi. GASTROINTESTINAL: Abdomen soft, non-tender, nondistended. Normal active bowel sounds MUSCULOSKELETAL: Extremities without clubbing, cyanosis, or edema. NEURO: Alert & Oriented x4 to person, place, time, situation. Moves all ext x4. Normal finger to nose test. EOMI. PSYCH: Mood and affect appropriate. Procedures EGD/ colonoscopy Bone marrow biopsy Medications and IVs Current Medications Medications (Trade) Dose Ordered Sig/Prashant Route Start Time Stop Time Status Last Admin (Soma) 350 mg TID PRN PO 05/16/16 17:30 05/20/16 00:04 (Lasix) 20 mg DAILY PO 05/17/16 09:00 05/19/16 09:28 (Neurontin) 300 mg TID PO 05/16/16 18:00 05/19/16 17:48 (Synthroid) 25 mcg DAILY@06 PO 05/17/16 06:00 05/20/16 05:00 (KCl) 10 meq DAILY PO 05/17/16 09:00 05/19/16 09:27 (Pepcid) 20 mg BID PO 05/16/16 21:00 05/19/16 20:58 (NS Flush) 2 ml UNSCH PRN IV 05/16/16 17:45 (NS Flush) 2 ml BID IV 05/16/16 21:00 05/19/16 21:01 (Zofran Inj) 4 mg Q6H PRN IV 05/16/16 17:45 (Protonix Inj) 40 mg Q24H IV PUSH 05/17/16 09:00 05/19/16 09:27 (Tylenol) 650 mg Q6HR PRN PO 05/17/16 06:30 05/20/16 00:04 Diazepam 10 mg 10 mg Q12HR PO 05/18/16 12:00 05/19/16 20:58 (Lr 1000 ml Inj) 1,000 ml @ 30 mls/hr Q24H IV 05/20/16 01:15 (Percocet 5-325 Mg) 1 tab Q4H PRN PO 05/20/16 10:00 (Canasa Supp) 1,000 mg HS RECTAL 05/20/16 21:00 A/P Problem List: (1) Pancytopenia ICD Code: D61.818 Status: Acute (2) GI bleed ICD Code: K92.2 Status: Acute Assessment and Plan 61-year-old female with recent hemorrhoidectomy 3 weeks ago presented with severe symptomatic anemia, thrombocytopenia, and leukopenia. Symptomatic anemia and GI bleeding: Recent hemorrhoidectomy 3 weeks ago. Patient denies any active bleeding since the procedure. Hemoccult in the emergency room is positive. - Appreciate GI following. S/p EGD/colonoscopy 05/20. - Continue Protonix. Monitor for bleeding. - Follow CBC and transfuse as needed. Pancytopenia: H&H on admission 5.8/16.4. Platelets of 71,000, WBC 2.7 and neutrophil count 0.2. - Appreciate hematology following. Concern for a primary bone marrow disorder. S /p bone marrow biopsy 05/20. Follow pathology. - Follow-up CBC and transfuse as needed. Headache New in onset, constant over the past few days. Pt also notes difficulty reading s/t blurry vision over the past few days. - pain control as needed. - CT brain pending. Chronic back pain: Stable. Patient has a Dilaudid/fentanyl pump implanted on the right lower quadrant of her abdomen. Soma 3 times a day per the patient's home dose. GI prophylaxis: Protonix/ ranitidine. DVT PPx: SCDs. Chemoprophylaxis contraindicated. Discharge Planning Awaiting clinical improvement. Problem Qualifiers (1) GI bleed: Qualified Code: K92.2 - Gastrointestinal hemorrhage, unspecified gastrointestinal hemorrhage type Gustavo Mejia DO May 20, 2016 14:36
--- NOTE | 2016-05-20 14:54 | MR ---
cc: JIM RODAS M.D. DATE OF [address] Seals DATE 05/20/2016 PROCEDURE Upper gastrointestinal endoscopy with biopsy and colonoscopy with biopsy. INDICATIONS A 61-year-old lady who has anemia, GI bleed. PROCEDURE After informing the patient about the procedure and complications, consent was signed. The patient was placed in her left lateral decubitus. Adequate sedation was achieved by propofol. The scope was placed in the mouth, advanced under video guidance to the second portion of the duodenum. The scope was drawn back to the stomach. Retroflexion was performed. Biopsy taken from the duodenum, some flat folds and from the antrum from gastritis and from the GE junction for irregular Z-line. After that rectal exam was performed, the scope was placed in the rectum, advanced under video guidance to the cecum and terminal ileum. The scope was drawn back gradually with visualization of the colonic mucosa down to the rectum. Retroflexion was performed. There was a large ulcer in the rectum with nodularity around it; biopsy was done from the nodule and from the ulcer. The scope was drawn back without immediate complication. FINDINGS 1. Esophagus: Irregular Z-line. Biopsy was done. 2. Stomach: Gastritis. Could be NG tube trauma. Biopsy was done. 3. Flat folds of the small bowel. Biopsy was done. 4. The colon showed normal terminal ileum. 5. Nodular area in the rectum that could be surrounding the ulcer. Biopsy was done. 6. Large rectal ulcer, questionable etiology. Biopsy was done. RECOMMENDATIONS 1. Follow-up biopsy. 2. May feed patient. 3. Continue PPI. 4. Flex sig in 3-4 weeks. 5. Canasa suppository for one month. 6. Return to clinic in two weeks. MD RITA Rodriguez/HARSHIL /1:25 PM /2:45 PM
--- NOTE | 2016-05-20 15:50 | RADRPT ---
EXAM DATE/TIME: 05/20/2016 15:16 [place] COMPARISON: CT BRAIN W/O CONTRAST, January 18, 2010, 16:21. INDICATIONS : Altered mental status and headache. RADIATION DOSE: 56.77 CTDIvol (mGy) MEDICAL HISTORY : None SURGICAL HISTORY : None. ENCOUNTER: Initial ACUITY: 1 day PAIN SCALE: 0/10 LOCATION: cranial TECHNIQUE: Multiple contiguous axial images were obtained of the head. Using automated exposure control and adj ustment of the mA and/or kV according to patient size, radiation dose was kept as low as reasonably a chievable to obtain optimal diagnostic quality images. FINDINGS: CEREBRUM: The ventricles are normal for age. No evidence of midline shift, mass lesion, hemorrhage or acute in farction. No extra-axial fluid collections are seen. POSTERIOR FOSSA: The cerebellum and brainstem are intact. The 4th ventricle is midline. The cerebellopontine angle i s unremarkable. EXTRACRANIAL: The visualized portion of the orbits is intact. SKULL: The calvaria is intact. No evidence of skull fracture. CONCLUSION: Normal examination for a patient of this age. No significant change has occurred. Emilio Thomas MD on May 20, 2016 at 15:47 Board Certified Radiologist. This report was verified electronically.
[2016-05-20] MEDS ORDERED: MESALAMINE 1000 MG SUPP RECTAL SCH (21:00)
[2016-05-21] VITALS: BP 110/56; PULSE 87; RESP 16; TEMP 97.9; O2SAT 96
[2016-05-21 04:00] VITALS: BP 113/54; PULSE 102; RESP 18; TEMP 96.9; O2SAT 93
[2016-05-21] MEDS: oxyCODONE/ACETAMINOPHEN 5 MG/325 MG TAB PO PRN ×4 (04:33→21:45)
[2016-05-21] MEDS: LEVOTHYROXINE SODIUM 25 MCG TAB PO SCH (05:02)
[2016-05-21 08:00] VITALS: BP 116/56; PULSE 58; RESP 16; TEMP 97.4; O2SAT 96
[2016-05-21 08:16] LABS: HEMATOCRIT 25.2 % (35.0-46.0); MEAN CELL VOLUME 92.4 FL (80.0-100.0); MEAN CORPUSCULAR HEMOGLOBIN 32.6 PG (27.0-34.0); MEAN CORPUSCULAR HGB CONC 35.3 % (32.0-36.0); PLATELET COUNT 60 TH/MM3 (150-450); RED BLOOD COUNT 2.72 MIL/MM3 (4.00-5.30); RED CELL DISTRIBUTION WIDTH 15.6 % (11.6-17.2); WHITE BLOOD COUNT 2.2 TH/MM3 (4.0-11.0)
[2016-05-21 08:35] LABS: BICARBONATE 26.9 MEQ/L (21.0-32.0); MAGNESIUM 2.2 MG/DL (1.5-2.5); POTASSIUM 3.8 MEQ/L (3.5-5.1)
[2016-05-21 08:36] LABS: REVIEW FLAG FINAL
[2016-05-21] MEDS: FAMOTIDINE 20 MG TAB PO SCH ×2 (08:42→21:43)
[2016-05-21] MEDS: POTASSIUM CHLORIDE 10 MEQ CAP PO SCH (08:42)
[2016-05-21] MEDS: PANTOPRAZOLE SODIUM 40 MG VIAL IV PUSH SCH (08:42)
[2016-05-21] MEDS: GABAPENTIN 300 MG CAP PO SCH ×3 (08:43→17:42)
[2016-05-21] MEDS: FUROSEMIDE 20 MG TAB PO SCH (08:43)
[2016-05-21] MEDS: DIAZEPAM 10 MG TAB PO SCH ×2 (08:43→21:43)
[2016-05-21] MEDS: SODIUM CHLORIDE 0.9% FLUSH 5 ML FLUSH IV SCH ×2 (08:44→21:46)
[2016-05-21 12:00] VITALS: BP 122/56; PULSE 63; RESP 18; TEMP 97.3; O2SAT 94
[2016-05-21] MEDS: CARISOPRODOL 350 MG TAB PO PRN (12:08)
--- NOTE | 2016-05-21 13:51 | PD.ONC.PN ---
Subjective Subjective Remarks Mild headache. Still weak. No CP/SOB. Objective Data Date Time Temp Pulse Resp B/P Pulse Ox O2 Delivery O2 Flow Rate FiO2 05/21/16 12:00 97.3 63 18 122/56 94 05/21/16 08:00 97.4 58 16 116/56 96 05/21/16 04:00 96.9 102 18 113/54 93 05/21/16 00:00 97.9 87 16 110/56 96 05/20/16 20:00 97.5 92 16 111/58 95 05/20/16 16:00 96.5 75 16 111/53 94 Result Diagram: 05/21/16 0734 05/21/16 0734 Laboratory Results Laboratory Tests Test 05/21/16 07:34 White Blood Count 2.2 TH/MM3 Red Blood Count 2.72 MIL/MM3 Hemoglobin 8.9 GM/DL Hematocrit 25.2 % Mean Corpuscular Volume 92.4 FL Mean Corpuscular Hemoglobin 32.6 PG Mean Corpuscular Hemoglobin 35.3 % Concent Red Cell Distribution Width 15.6 % Platelet Count 60 TH/MM3 Mean Platelet Volume 7.7 FL Sodium Level 140 MEQ/L Potassium Level 3.8 MEQ/L Chloride Level 106 MEQ/L Carbon Dioxide Level 26.9 MEQ/L Anion Gap 7 MEQ/L Blood Urea Nitrogen 13 MG/DL Creatinine 0.68 MG/DL Estimat Glomerular Filtration 88 ML/MIN Rate Random Glucose 83 MG/DL Calcium Level 8.8 MG/DL Magnesium Level 2.2 MG/DL Administered Medications Medications (Trade) Dose Ordered Sig/Prashant Route PRN Reason Start Time Stop Time Status Last Admin Dose Admin Carisoprodol (Soma) 350 mg TID PRN PO PAIN 05/16/16 17:30 05/21/16 12:08 Furosemide (Lasix) 20 mg DAILY PO 05/17/16 09:00 05/21/16 08:43 Gabapentin (Neurontin) 300 mg TID PO 05/16/16 18:00 05/21/16 12:08 Levothyroxine Sodium (Synthroid) 25 mcg DAILY@06 PO 05/17/16 06:00 05/21/16 05:02 Potassium Chloride (KCl) 10 meq DAILY PO 05/17/16 09:00 05/21/16 08:42 Famotidine (Pepcid) 20 mg BID PO 05/16/16 21:00 05/21/16 08:42 IV Flush (NS Flush) 2 ml BID IV 05/16/16 21:00 05/21/16 08:44 Pantoprazole Sodium (Protonix Inj) 40 mg Q24H IV PUSH 05/17/16 09:00 05/21/16 08:42 Acetaminophen (Tylenol) 650 mg Q6HR PRN PO headache 05/17/16 06:30 05/20/16 00:04 Diazepam (Valium) 10 mg Q12HR PO 05/18/16 12:00 05/21/16 08:43 Oxycodone/ Acetaminophen (Percocet 5-325 Mg) 1 tab Q4H PRN PO PAIN 1-10 05/20/16 10:00 05/21/16 08:43 Objective Remarks GENERAL: Well-nourished, well-developed patient. SKIN: Warm and dry. Pale HEAD: Normocephalic. EYES: No scleral icterus. No injection or drainage. NECK: Supple, trachea midline. No JVD or lymphadenopathy. LYMPHATIC: No adenopathy. CARDIOVASCULAR: Regular rate and rhythm without murmurs. RESPIRATORY: Breath sounds equal bilaterally. No accessory muscle use. GASTROINTESTINAL: Abdomen soft, non-tender, nondistended. EXTREMITIES: No cyanosis, or edema. MUSCULOSKELETAL: Adequate muscle tone. NEUROLOGICAL: No obvious focal deficit. Awake, alert, and oriented x3. PSYCHIATRIC: Appropriate mood and affect; insight and judgment normal. Assessment/Plan Problem List: (1) Pancytopenia Status: Acute Plan: 05/21/2016: Blood counts are stable. Bone marrow path pending. B12 pending. 05/20/16: counts remain stable. bone marrow biopsy completed today 05/19/16: Counts are stable, no transfusion needed. 05/18/16: No bleeding. Order placed for BMB with invasive radiology. -- We will transfuse for platelets less than 10k and a Hgb of less than 7. Hx: Pt had a hemorrhoidectomy three weeks ago and has had some rectal bleeding since that time. She presented to the ER on 05/16/16 with complaints of SOB and chest tightness and was found to be quite anemic with a Hgb of 5.8. She was transfused 2 units at that time. Hematology was consulted on 05/17/16 for pancytopenia. Pt had imaging done to r/o a lymphoproliferative process. A CT scan of the CAP was essentially negative for this. She will need a Bone Marrow Biopsy to determine cause of pancytopenia. (2) Rectal bleed Status: Acute Plan: EGD/colonoscopy on 05/20/15 showed gastritis, irregular Z line and rectal nodule, Path pending. --GI following. -- Had hemorrhoid surgery three weeks ago with Dr. Schwartz. -- Controlled. No new bleeding. (3) GERD (gastroesophageal reflux disease) Status: Acute Plan: -- On Famotidine 20mg po BID Assessment 61 y/o female who presents to the ER with c/o chest tightness and SOB. Plan 1. await pathology from bone marrow biopsy 2. no transfusion needed today 3. monitor CBC Problem Qualifiers (1) GERD (gastroesophageal reflux disease): Qualified Code: K21.9 - Gastroesophageal reflux disease, esophagitis presence not specified Ryan Tripp MD May 21, 2016 13:51
--- NOTE | 2016-05-21 15:55 | HHI.PR ---
Subjective Remarks The patient continued to complain of a headache. She said the pain medications brought it down a little bit. She is wondering about the results of her biopsies. She is wondering if she might have cancer. She does describe dizziness and weakness when ambulating to the bathroom. No other acute complaints. Discussed with nursing. Objective Vitals Vital Signs Date Time Temp Pulse Resp B/P Pulse Ox O2 Delivery O2 Flow Rate FiO2 05/21/16 12:00 97.3 63 18 122/56 94 05/21/16 08:00 97.4 58 16 116/56 96 05/21/16 04:00 96.9 102 18 113/54 93 05/21/16 00:00 97.9 87 16 110/56 96 05/20/16 20:00 97.5 92 16 111/58 95 05/20/16 16:00 96.5 75 16 111/53 94 I/O 05/20/16 05/20/16 05/20/16 05/21/16 05/21/16 05/21/16 06:59 14:59 22:59 06:59 14:59 22:59 Intake Total 350 ml 720 ml 600 ml 1960 ml Balance 350 ml 720 ml 600 ml 1960 ml Intake Oral 720 ml 600 ml 1960 ml IV Total 350 ml # Voids 2 5 2 8 # Bowel Movements 3 Result Diagram: 05/21/16 0734 05/21/16 0734 Imaging Last Impressions Bone Biopsy CT 05/20/16 0846 Signed Impressions: Service Date/Time: Friday, May 20, 2016 09:13 - CONCLUSION: 1. Uncomplicated CT guided bone marrow aspirate. 2. Uncomplicated CT guided bone marrow biopsy. Yazan Saucedo MD Head CT 05/20/16 0000 Signed Impressions: Service Date/Time: Friday, May 20, 2016 15:16 - CONCLUSION: Normal examination for a patient of this age. No significant change has occurred. Emilio Thomas MD Chest CT 05/17/16 0000 Signed Impressions: Service Date/Time: Tuesday, May 17, 2016 15:14 - CONCLUSION: 1. 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 There are trace to very small bilateral pleural effusions and mild cardiomegaly noted. 2. No lobar consolidation. 3. Upper limits of normal to mildly enlarged mediastinal and bilateral hilar lymph nodes, nonspecific but presumably reactive. Bravo Mendez MD Abdomen/Pelvis CT 05/17/16 0000 Signed Impressions: Service Date/Time: Tuesday, May 17, 2016 15:18 - CONCLUSION: 1. Heterogeneous liver, nonspecific but possibly fatty infiltration, hepatocellular disease or a combination of the two. Nothing focal. 2. Nonspecific distention of the gallbladder. No stone, perceptible inflammatory changes or ductal dilatation demonstrated. 3. No obstruction, inflammatory changes or perceptible mass of the GI tract. Bravo Mendez MD Chest X-Ray 05/16/16 0000 Signed Impressions: Service Date/Time: Monday, May 16, 2016 19:23 - CONCLUSION: No acute disease. Minimal interstitial densities likely chronic. Kilo Cotto MD Objective Remarks GENERAL: This is a well-nourished, well-developed patient, in no apparent distress. HEENT: Tenderness to palpation around frontal cranium. CARDIOVASCULAR: Regular rate and rhythm without murmurs, gallops, or rubs. RESPIRATORY: Clear to auscultation. Breath sounds equal bilaterally. No wheezes , rales, or rhonchi. GASTROINTESTINAL: Abdomen soft, non-tender, nondistended. Normal active bowel sounds MUSCULOSKELETAL: Extremities without clubbing, cyanosis, or edema. NEURO: Alert & Oriented x4 to person, place, time, situation. Moves all ext x4. Normal finger to nose test. EOMI. PSYCH: Mood and affect appropriate. Procedures EGD/ colonoscopy Bone marrow biopsy Medications and IVs Current Medications Medications (Trade) Dose Ordered Sig/Prashant Route Start Time Stop Time Status Last Admin (Soma) 350 mg TID PRN PO 05/16/16 17:30 05/21/16 12:08 (Lasix) 20 mg DAILY PO 05/17/16 09:00 05/21/16 08:43 (Neurontin) 300 mg TID PO 05/16/16 18:00 05/21/16 12:08 (Synthroid) 25 mcg DAILY@06 PO 05/17/16 06:00 05/21/16 05:02 (KCl) 10 meq DAILY PO 05/17/16 09:00 05/21/16 08:42 (Pepcid) 20 mg BID PO 05/16/16 21:00 05/21/16 08:42 (NS Flush) 2 ml UNSCH PRN IV 05/16/16 17:45 (NS Flush) 2 ml BID IV 05/16/16 21:00 05/21/16 08:44 (Zofran Inj) 4 mg Q6H PRN IV 05/16/16 17:45 (Tylenol) 650 mg Q6HR PRN PO 05/17/16 06:30 05/20/16 00:04 Diazepam 10 mg 10 mg Q12HR PO 05/18/16 12:00 05/21/16 08:43 (Lr 1000 ml Inj) 1,000 ml @ 30 mls/hr Q24H IV 05/20/16 01:15 (Percocet 5-325 Mg) 1 tab Q4H PRN PO 05/20/16 10:00 05/21/16 14:20 (Canasa Supp) 1,000 mg HS RECTAL 05/20/16 21:00 Hold (Protonix) 40 mg DAILY PO 05/22/16 09:00 A/P Problem List: (1) Pancytopenia ICD Code: D61.818 Status: Acute (2) GI bleed ICD Code: K92.2 Status: Acute Assessment and Plan 61-year-old female with recent hemorrhoidectomy 3 weeks ago presented with severe symptomatic anemia, thrombocytopenia, and leukopenia. Symptomatic anemia and GI bleeding: Recent hemorrhoidectomy 3 weeks ago. Patient denies any active bleeding since the procedure. Hemoccult in the emergency room is positive. Appreciate GI following. S/p EGD/colonoscopy 05/20 which revealed gastritis and a rectal ulcer. - Continue Protonix. Monitor for bleeding. - Follow CBC and transfuse as needed. Pancytopenia: H&H on admission 5.8/16.4. Platelets of 71,000, WBC 2.7 and neutrophil count 0.2. - Appreciate hematology following. Concern for a primary bone marrow disorder. S /p bone marrow biopsy 05/20. Follow pathology. - Follow-up CBC and transfuse as needed. Headache New in onset, constant over the past few days. Pt also notes difficulty reading s/t blurry vision over the past few days. CT brain negative for an acute process. - pain control as needed. Trial of Fioricet 05/21. Chronic back pain: Stable. Patient has a Dilaudid/fentanyl pump implanted on the right lower quadrant of her abdomen. Soma 3 times a day per the patient's home dose. GI prophylaxis: Protonix/ ranitidine. DVT PPx: SCDs. Chemoprophylaxis contraindicated. Discharge Planning Awaiting clinical improvement. Problem Qualifiers (1) GI bleed: Qualified Code: K92.2 - Gastrointestinal hemorrhage, unspecified gastrointestinal hemorrhage type Gustavo Mejia DO May 21, 2016 15:55
[2016-05-21 16:00] VITALS: BP 113/60; PULSE 67; RESP 18; TEMP 97.7; O2SAT 94
[2016-05-21] MEDS ORDERED: ACETAMIN 325 MG/BUTALBITAL 50 MG/CAFFEINE 40 MG TAB PO ONE (16:00)
--- NOTE | 2016-05-21 16:57 | HHI.GIFU ---
Subjective Remarks Patient is resting in bed, seems comfortable, reports a very scant amount of rectal bleed, but no abdominal pain, nausea or vomiting (NichoDm SHEBA) Objective Vitals I&O Vital Signs Date Time Temp Pulse Resp B/P Pulse Ox O2 Delivery O2 Flow Rate FiO2 05/21/16 12:00 97.3 63 18 122/56 94 05/21/16 08:00 97.4 58 16 116/56 96 05/21/16 04:00 96.9 102 18 113/54 93 05/21/16 00:00 97.9 87 16 110/56 96 05/20/16 20:00 97.5 92 16 111/58 95 I/O 05/20/16 05/20/16 05/20/16 05/21/16 05/21/16 05/21/16 06:59 14:59 22:59 06:59 14:59 22:59 Intake Total 350 ml 720 ml 600 ml 1960 ml Balance 350 ml 720 ml 600 ml 1960 ml Intake Oral 720 ml 600 ml 1960 ml IV Total 350 ml # Voids 2 5 2 8 # Bowel Movements 3 Laboratory Laboratory Tests Test 05/21/16 07:34 White Blood Count 2.2 Red Blood Count 2.72 Hemoglobin 8.9 Hematocrit 25.2 Mean Corpuscular Volume 92.4 Mean Corpuscular Hemoglobin 32.6 Mean Corpuscular Hemoglobin 35.3 Concent Red Cell Distribution Width 15.6 Platelet Count 60 Mean Platelet Volume 7.7 Sodium Level 140 Potassium Level 3.8 Chloride Level 106 Carbon Dioxide Level 26.9 Anion Gap 7 Blood Urea Nitrogen 13 Creatinine 0.68 Estimat Glomerular Filtration 88 Rate Random Glucose 83 Calcium Level 8.8 Magnesium Level 2.2 Imaging Last Impressions Bone Biopsy CT 05/20/16 0846 Signed Impressions: Service Date/Time: Friday, May 20, 2016 09:13 - CONCLUSION: 1. Uncomplicated CT guided bone marrow aspirate. 2. Uncomplicated CT guided bone marrow biopsy. Yazan Saucedo MD Head CT 05/20/16 0000 Signed Impressions: Service Date/Time: Friday, May 20, 2016 15:16 - CONCLUSION: Normal examination for a patient of this age. No significant change has occurred. Emilio Thomas MD Chest CT 05/17/16 0000 Signed Impressions: Service Date/Time: Tuesday, May 17, 2016 15:14 - CONCLUSION: 1. 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 There are trace to very small bilateral pleural effusions and mild cardiomegaly noted. 2. No lobar consolidation. 3. Upper limits of normal to mildly enlarged mediastinal and bilateral hilar lymph nodes, nonspecific but presumably reactive. Bravo Mendez MD Abdomen/Pelvis CT 05/17/16 0000 Signed Impressions: Service Date/Time: Tuesday, May 17, 2016 15:18 - CONCLUSION: 1. Heterogeneous liver, nonspecific but possibly fatty infiltration, hepatocellular disease or a combination of the two. Nothing focal. 2. Nonspecific distention of the gallbladder. No stone, perceptible inflammatory changes or ductal dilatation demonstrated. 3. No obstruction, inflammatory changes or perceptible mass of the GI tract. Bravo Mendez MD Chest X-Ray 05/16/16 0000 Signed Impressions: Service Date/Time: Monday, May 16, 2016 19:23 - CONCLUSION: No acute disease. Minimal interstitial densities likely chronic. Kilo Cotto MD Physical Exam HEENT: normocephalic; atraumatic; no jaundice. NECK: Neck is supple, no JVD, no lymphadenopathy. CHEST: Chest is clear to auscultation and percussion. CARDIAC: Regular rate and rhythm with no murmur gallop or rubs. ABDOMEN: Soft, nondistended, nontender; no hepatosplenomegaly; bowel sounds are present in all four quadrants. EXTREMITIES: No clubbing, cyanosis, or edema. SKIN: Normal; no rash; no jaundice. JOURNAL ENTRY AUDIT CLERK: No focal deficits; alert and oriented times three. (Dm Torre) Assessment and Plan Assessment: (1) Acute blood loss anemia Plan: HGB stable EGD showed gastritis, flat folds in small bowel, Bx done rectal ulcer, could be from surgery Bx done O/W normal. may feed patient, continue PPI. Ok to DC home from GI. (2) GI bleed Plan: Positive FOBT No obvious rectal bleeding noted Symptoms started 3 weeks ago after hemorrhoidectomy (3) GERD (gastroesophageal reflux disease) Plan: continue PPI (4) Chronic constipation Plan: Continue measures to prevent constipation (5) Thrombocytopenia Plan: also neutropenia seen by hematology (6) Leukopenia Plan: Neutropenic precautions Bone marrow bx in am (7) Fatty liver Plan Abdomen/Pelvis CT 05/17/16>>> : 1. Heterogeneous liver, nonspecific but possibly fatty infiltration, hepatocellular disease or a combination of the two. Nothing focal. 2. Nonspecific distention of the gallbladder. No stone, perceptible inflammatory changes or ductal dilatation demonstrated. 3. No obstruction, inflammatory changes or perceptible mass of the GI tract. This is a 61 year old female with acute blood loss anemia and is very symptomatic with shortness of breath and weakness and fatigue. Had positive fecal occult blood no blood seen in her stools at home. Has chronic constipation requiring use of enemas and Dulcolax. Last colonoscopy was 2014 which she states was normal and normal EGD 3 months ago. She will need a colonoscopy and EGD once platelets are stable. She is neutropenic on precautions , seen by hematology will have a bone marrow bx tomorrow. 05/21/15 patient reports a very scant amount of rectal bleed, hgb is holding S/P EGD/colonoscopy on (05/20/15)---> gastritis, and rectal ulcer, bx pending bone marrow bx pending Plan -DARIAN - Await bx - Await Bone marrow Bx - Continue PPI - Laxatives as need for constipation - monitor hh - Transfuse as needed - Gi will sign off Patient was seen and examined by myself and Dr. Chinchilla (Dm Torre) Physician Comments patient was seen and examined, agree with above note and plan, we will F/U as needed and as outpatient. (William Chinchilla MD) Problem Qualifiers (1) GI bleed: Qualified Code: K92.2 - Gastrointestinal hemorrhage, unspecified gastrointestinal hemorrhage type (2) GERD (gastroesophageal reflux disease): Qualified Code: K21.9 - Gastroesophageal reflux disease, esophagitis presence not specified Dm Torre May 21, 2016 16:57 William Chinchilla MD May 21, 2016 18:01
[2016-05-21] MEDS: ACETAMINOPHEN 325 MG TAB PO PRN (19:42)
[2016-05-21 20:00] VITALS: BP 105/53; PULSE 70; RESP 18; TEMP 96.8; O2SAT 95
[2016-05-22] VITALS: BP 113/55; PULSE 66; RESP 16; TEMP 96.5; O2SAT 94
[2016-05-22] MEDS: LACTATED RINGER'S 1000 ML IV SCH (01:15)
[2016-05-22] MEDS: ACETAMINOPHEN 325 MG TAB PO PRN ×2 (03:59→21:29)
[2016-05-22 04:00] VITALS: BP 114/56; PULSE 67; RESP 16; TEMP 96.5; O2SAT 95
[2016-05-22] MEDS: LEVOTHYROXINE SODIUM 25 MCG TAB PO SCH (05:39)
[2016-05-22] MEDS: oxyCODONE/ACETAMINOPHEN 5 MG/325 MG TAB PO PRN ×2 (05:41→09:46)
[2016-05-22] MEDS: CARISOPRODOL 350 MG TAB PO PRN ×2 (05:41→11:51)
[2016-05-22 07:03] LABS: AUTOMATED NEUTROPHIL # 0.2 TH/MM3 (1.8-7.7); BASOPHIL % 0.2 % (0.0-2.0); EOSINOPHIL # 0.1 TH/MM3 (0-0.4); EOSINOPHIL % 2.7 % (0.0-4.0); HEMATOCRIT 25.2 % (35.0-46.0); LYMPH % 76.7 % (9.0-44.0); MEAN CORPUSCULAR HEMOGLOBIN 32.7 PG (27.0-34.0); MEAN CORPUSCULAR HGB CONC 35.1 % (32.0-36.0); MONO % 12.5 % (0.0-8.0); NEUT % 7.9 % (16.0-70.0); PLATELET COUNT 59 TH/MM3 (150-450); RED BLOOD COUNT 2.71 MIL/MM3 (4.00-5.30); RED CELL DISTRIBUTION WIDTH 15.7 % (11.6-17.2); WHITE BLOOD COUNT 2.6 TH/MM3 (4.0-11.0)
[2016-05-22 07:10] LABS: HEMO FLAGS AUTO DIFF
[2016-05-22 08:00] VITALS: BP 101/55; PULSE 63; RESP 16; TEMP 96.1; O2SAT 95
[2016-05-22 08:28] LABS: EOSINOPHILS 1 % (0-4); NEUTROPHIL # MANUAL DIFF 0.3 TH/MM3 (1.8-7.7); PLATELET ESTIMATE SMEAR LOW (NORMAL); PLATELET MORPHOLOGY NORMAL (NORMAL); POLYS (SEG NEUTROPHILS) 12 % (16-70); SCAN/DIFF FINAL DIFF MANUAL; WBC DIFF SAMPLE 100
[2016-05-22] MEDS: FUROSEMIDE 20 MG TAB PO SCH (08:48)
[2016-05-22] MEDS: DIAZEPAM 10 MG TAB PO SCH ×2 (08:48→21:30)
[2016-05-22] MEDS: POTASSIUM CHLORIDE 10 MEQ CAP PO SCH (08:48)
[2016-05-22] MEDS: PANTOPRAZOLE SOD 40 MG DELAYED RELEASE TAB PO SCH (08:48)
[2016-05-22] MEDS: GABAPENTIN 300 MG CAP PO SCH ×3 (08:49→18:09)
[2016-05-22] MEDS: FAMOTIDINE 20 MG TAB PO SCH ×2 (08:49→21:30)
[2016-05-22] MEDS: SODIUM CHLORIDE 0.9% FLUSH 5 ML FLUSH IV SCH ×2 (08:50→21:31)
[2016-05-22 12:05] VITALS: BP 132/60; PULSE 112; RESP 16; TEMP 97.6; O2SAT 94
--- NOTE | 2016-05-22 13:31 | PD.ONC.PN ---
Subjective Subjective Remarks Afebrile overnight. Patient resting comfortably without complaint. Sister at bedside. Patient is somewhat anxious to know bone marrow biopsy results. She is also concerned about her [employer] pain pump which she has to manage her chronic back and nerve pain. Objective Data Date Time Temp Pulse Resp B/P Pulse Ox O2 Delivery O2 Flow Rate FiO2 05/22/16 08:00 96.1 63 16 101/55 95 05/22/16 06:36 18 05/22/16 06:36 18 05/22/16 04:59 16 05/22/16 04:00 96.5 67 16 114/56 95 05/22/16 01:21 16 05/22/16 00:00 96.5 66 16 113/55 94 05/21/16 20:00 96.8 70 18 105/53 95 05/21/16 16:00 97.7 67 18 113/60 94 Result Diagram: 05/22/16 0608 05/21/16 0734 Laboratory Results Laboratory Tests Test 05/22/16 06:08 White Blood Count 2.6 TH/MM3 Red Blood Count 2.71 MIL/MM3 Hemoglobin 8.8 GM/DL Hematocrit 25.2 % Mean Corpuscular Volume 93.0 FL Mean Corpuscular Hemoglobin 32.7 PG Mean Corpuscular Hemoglobin 35.1 % Concent Red Cell Distribution Width 15.7 % Platelet Count 59 TH/MM3 Mean Platelet Volume 7.6 FL Neutrophils (%) (Auto) 7.9 % Lymphocytes (%) (Auto) 76.7 % Monocytes (%) (Auto) 12.5 % Eosinophils (%) (Auto) 2.7 % Basophils (%) (Auto) 0.2 % Neutrophils # (Auto) 0.2 TH/MM3 Lymphocytes # (Auto) 2.0 TH/MM3 Monocytes # (Auto) 0.3 TH/MM3 Eosinophils # (Auto) 0.1 TH/MM3 Basophils # (Auto) 0.0 TH/MM3 CBC Comment AUTO DIFF Differential Total Cells 100 Counted Neutrophils % (Manual) 12 % Lymphocytes % 77 % Monocytes % 10 % Eosinophils % 1 % Neutrophils # (Manual) 0.3 TH/MM3 Differential Comment FINAL DIFF MANUAL Platelet Estimate LOW Platelet Morphology Comment NORMAL Red Cell Morphology Comment NORMAL Administered Medications Medications (Trade) Dose Ordered Sig/Prashant Route PRN Reason Start Time Stop Time Status Last Admin Dose Admin Carisoprodol (Soma) 350 mg TID PRN PO PAIN 05/16/16 17:30 05/22/16 11:51 Furosemide (Lasix) 20 mg DAILY PO 05/17/16 09:00 05/22/16 08:48 Gabapentin (Neurontin) 300 mg TID PO 05/16/16 18:00 05/22/16 11:51 Levothyroxine Sodium (Synthroid) 25 mcg DAILY@06 PO 05/17/16 06:00 05/22/16 05:39 Potassium Chloride (KCl) 10 meq DAILY PO 05/17/16 09:00 05/22/16 08:48 Famotidine (Pepcid) 20 mg BID PO 05/16/16 21:00 05/22/16 08:49 IV Flush (NS Flush) 2 ml BID IV 05/16/16 21:00 05/22/16 08:50 Acetaminophen (Tylenol) 650 mg Q6HR PRN PO headache 05/17/16 06:30 05/22/16 03:59 Diazepam (Valium) 10 mg Q12HR PO 05/18/16 12:00 05/22/16 08:48 Oxycodone/ Acetaminophen (Percocet 5-325 Mg) 1 tab Q4H PRN PO pain 1-5 05/20/16 10:00 05/22/16 09:46 Pantoprazole Sodium (Protonix) 40 mg DAILY PO 05/22/16 09:00 05/22/16 08:48 Oxycodone HCl (Roxicodone) 10 mg Q4H PRN PO pain 6-10 05/21/16 16:00 05/22/16 00:34 Objective Remarks GENERAL: Middle aged female, sitting up in bed in nad. Sister at bedside. SKIN: Warm and dry. HEAD: Normocephalic. EYES: No injection or drainage. NECK: Supple, trachea midline. CARDIOVASCULAR: Regular rate and rhythm RESPIRATORY: Breath sounds equal bilaterally. No accessory muscle use. GASTROINTESTINAL: Abdomen soft, non-tender, nondistended. device palpated in right mid abdomen. EXTREMITIES: No cyanosis NEUROLOGICAL: No obvious focal deficit. Awake, alert, and oriented x3. 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 awaiting bone marrow results 05/21/2016: Blood counts are stable. Bone marrow path pending. B12 pending. 05/20/16: counts remain stable. bone marrow biopsy completed today 05/19/16: Counts are stable, no transfusion needed. 05/18/16: No bleeding. Order placed for BMB with invasive radiology. -- We will transfuse for platelets less than 10k and a Hgb of less than 7. Hx: Pt had a hemorrhoidectomy three weeks ago and has had some rectal bleeding since that time. She presented to the ER on 05/16/16 with complaints of SOB and chest tightness and was found to be quite anemic with a Hgb of 5.8. She was transfused 2 units at that time. Hematology was consulted on 05/17/16 for pancytopenia. Pt had imaging done to r/o a lymphoproliferative process. A CT scan of the CAP was essentially negative for this. She will need a Bone Marrow Biopsy to determine cause of pancytopenia. (2) Rectal bleed Status: Acute Plan: EGD/colonoscopy on 05/20/15 showed gastritis, irregular Z line and rectal nodule, Path pending. --GI following. -- Had hemorrhoid surgery three weeks ago with Dr. Schwartz. -- Controlled. No new bleeding. Assessment 61 y/o female with pancytopenia, suspected AML Plan 1. monitor CBC 2. possible placement of Donaldson catheter tomorrow. 3. no transfusion needed today 4. possible LP next week to evaluate for CSF component of leukemia Attending Statement The exam, history, and the medical decision-making described in the above note were completed with the assistance of the mid-level provider. I reviewed and agree with the findings presented. I attest that I had a [id number] encounter with the patient on the same day, and personally performed and documented my assessment and findings in the medical record.Reviewed bone marrow flow results with pt and later her sister at length. I have also discussed with pathologist. 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 Cytogenetic and molecular studies are pending which will provide more prognostic info. Discussed the diagnosis, prognosis and treatment options with them.. She will need induction chemo and plan to give her 7+3 chemo. Depending on her molecular studies, she may need consolidation chemotherapy after achieve remission vs BMT. Their questions were answered. Will get ECHO and place Donaldson cath in preparation for induction chemotherapy. Plan to get LP given her persistent headache to r/o SURVEY RESEARCH MANAGER leukemia. Radha Lawrence May 22, 2016 13:31 Ryan Tripp MD May 22, 2016 16:01
[2016-05-22 16:34] VITALS: BP 138/63; PULSE 79; RESP 16; TEMP 97.6; O2SAT 97
[2016-05-22] MEDS ORDERED: VANCOMYCIN INJ 1,000 MG in SODIUM CHLOR 0.9% 250 ML INJ 250 ML IV SCH (16:45)
--- NOTE | 2016-05-22 17:07 | HHI.PR ---
Subjective Remarks The patient was teary-eyed because she learned about her diagnosis of leukemia. She said she was prepared for the treatment plan. She continued to complain about a headache that was mostly located in the frontal area. Discussed with nursing. Objective Vitals Vital Signs Date Time Temp Pulse Resp B/P Pulse Ox O2 Delivery O2 Flow Rate FiO2 05/22/16 16:34 97.6 79 16 138/63 97 05/22/16 12:05 97.6 112 16 132/60 94 05/22/16 08:00 96.1 63 16 101/55 95 05/22/16 06:36 18 05/22/16 06:36 18 05/22/16 04:59 16 05/22/16 04:00 96.5 67 16 114/56 95 05/22/16 01:21 16 05/22/16 00:00 96.5 66 16 113/55 94 05/21/16 20:00 96.8 70 18 105/53 95 I/O 05/21/16 05/21/16 05/21/16 05/22/16 05/22/16 05/22/16 07:00 15:00 23:00 07:00 15:00 23:00 Intake Total 600 ml 1960 ml 480 ml 480 ml Balance 600 ml 1960 ml 480 ml 480 ml Intake Oral 600 ml 1960 ml 480 ml 480 ml # Voids 2 8 2 2 Result Diagram: 05/22/16 0608 05/21/16 0734 Imaging Last Impressions Bone Biopsy CT 05/20/16 0846 Signed Impressions: Service Date/Time: Friday, May 20, 2016 09:13 - CONCLUSION: 1. Uncomplicated CT guided bone marrow aspirate. 2. Uncomplicated CT guided bone marrow biopsy. Yazan Saucedo MD Head CT 05/20/16 0000 Signed Impressions: Service Date/Time: Friday, May 20, 2016 15:16 - CONCLUSION: Normal examination for a patient of this age. No significant change has occurred. Emilio Thomas MD Chest CT 05/17/16 0000 Signed Impressions: Service Date/Time: Tuesday, May 17, 2016 15:14 - CONCLUSION: 1. 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 There are trace to very small bilateral pleural effusions and mild cardiomegaly noted. 2. No lobar consolidation. 3. Upper limits of normal to mildly enlarged mediastinal and bilateral hilar lymph nodes, nonspecific but presumably reactive. Bravo Mendez MD Abdomen/Pelvis CT 05/17/16 0000 Signed Impressions: Service Date/Time: Tuesday, May 17, 2016 15:18 - CONCLUSION: 1. Heterogeneous liver, nonspecific but possibly fatty infiltration, hepatocellular disease or a combination of the two. Nothing focal. 2. Nonspecific distention of the gallbladder. No stone, perceptible inflammatory changes or ductal dilatation demonstrated. 3. No obstruction, inflammatory changes or perceptible mass of the GI tract. Bravo Mendez MD Chest X-Ray 05/16/16 0000 Signed Impressions: Service Date/Time: Monday, May 16, 2016 19:23 - CONCLUSION: No acute disease. Minimal interstitial densities likely chronic. Kilo Cotto MD Objective Remarks GENERAL: This is a well-nourished, well-developed patient, in no apparent distress. HEENT: Tenderness to palpation around frontal cranium. CARDIOVASCULAR: Regular rate and rhythm without murmurs, gallops, or rubs. RESPIRATORY: Clear to auscultation. Breath sounds equal bilaterally. No wheezes , rales, or rhonchi. GASTROINTESTINAL: Abdomen soft, non-tender, nondistended. Normal active bowel sounds MUSCULOSKELETAL: Extremities without clubbing, cyanosis, or edema. NEURO: Alert & Oriented x4 to person, place, time, situation. Moves all ext x4. Normal finger to nose test. EOMI. PSYCH: Teary-eyed. Procedures EGD/ colonoscopy Bone marrow biopsy Medications and IVs Current Medications Medications (Trade) Dose Ordered Sig/Prashant Route Start Time Stop Time Status Last Admin (Soma) 350 mg TID PRN PO 05/16/16 17:30 05/22/16 11:51 (Lasix) 20 mg DAILY PO 05/17/16 09:00 05/22/16 08:48 (Neurontin) 300 mg TID PO 05/16/16 18:00 05/22/16 11:51 (Synthroid) 25 mcg DAILY@06 PO 05/17/16 06:00 05/22/16 05:39 (KCl) 10 meq DAILY PO 05/17/16 09:00 05/22/16 08:48 (Pepcid) 20 mg BID PO 05/16/16 21:00 05/22/16 08:49 (NS Flush) 2 ml UNSCH PRN IV 05/16/16 17:45 (NS Flush) 2 ml BID IV 05/16/16 21:00 05/22/16 08:50 (Zofran Inj) 4 mg Q6H PRN IV 05/16/16 17:45 (Tylenol) 650 mg Q6HR PRN PO 05/17/16 06:30 05/22/16 03:59 Diazepam 10 mg 10 mg Q12HR PO 05/18/16 12:00 05/22/16 08:48 (Lr 1000 ml Inj) 1,000 ml @ 30 mls/hr Q24H IV 05/20/16 01:15 (Percocet 5-325 Mg) 1 tab Q4H PRN PO 05/20/16 10:00 05/22/16 09:46 (Canasa Supp) 1,000 mg HS RECTAL 05/20/16 21:00 Hold (Protonix) 40 mg DAILY PO 05/22/16 09:00 05/22/16 08:48 (Roxicodone) 10 mg Q4H PRN PO 05/21/16 16:00 05/22/16 14:34 A/P Problem List: (1) Pancytopenia ICD Code: D61.818 Status: Acute (2) GI bleed ICD Code: K92.2 Status: Acute Assessment and Plan 61-year-old female with recent hemorrhoidectomy 3 weeks ago presented with severe symptomatic anemia, thrombocytopenia, and leukopenia. Symptomatic anemia and GI bleeding: Recent hemorrhoidectomy 3 weeks ago. Patient denies any active bleeding since the procedure. Hemoccult in the emergency room is positive. Appreciate GI following. S/p EGD/colonoscopy 05/20 which revealed gastritis and a rectal ulcer. - Continue Protonix. Monitor for bleeding. - Follow CBC and transfuse as needed. AML Bone marrow biopsy revealed AML. Oncology consult appreciated. - chemotherapy planning per oncology. - Follow-up CBC and transfuse as needed. Headache New in onset, constant over the past few days. Pt also notes difficulty reading s/t blurry vision over the past few days. CT brain negative for an acute process. Fioricet did not help. - pain control as needed. - consider LP per oncology. Chronic back pain Stable. Patient has a Dilaudid/fentanyl pump implanted on the right lower quadrant of her abdomen. - Soma 3 times a day per the patient's home dose. - pain control as needed. GI prophylaxis: Protonix/ ranitidine. DVT PPx: SCDs. Chemoprophylaxis contraindicated. Discharge Planning Awaiting clinical improvement. Problem Qualifiers (1) GI bleed: Qualified Code: K92.2 - Gastrointestinal hemorrhage, unspecified gastrointestinal hemorrhage type Gustavo Mejia DO May 22, 2016 17:07
[2016-05-22] MEDS ORDERED: ceFAZolin 2 GM PREMIX 50 ML IV SCH (18:00)
[2016-05-22 19:02] LABS: BACTERIA, URINE OCC /hpf; BLOOD, URINE NEG (NEG); COMMENT (UR) CULTURE INDICATED; CULTURE IF INDICATED CULTURE INDICATED; GLUCOSE,URINE NEG (NEG); KETONE, URINE NEG (NEG); NITRITE,URINE NEG (NEG); PH, URINE 6.5 (5.0-8.5); URINE COLOR LIGHT-YELLOW (YELLW/STRAW)
[2016-05-22 20:00] VITALS: BP 120/57; PULSE 75; RESP 16; TEMP 97.4; O2SAT 96
[2016-05-22] MEDS ORDERED: BISACODYL 10 MG SUPP PR PRN (22:15)
[2016-05-22] MEDS ORDERED: SOD PHOSPHATE/SOD BIPHOSPHATE (ADULT) ENEMA 133ML PR PRN (22:15)
[2016-05-23] VITALS (7 sets, daily range): BP systolic 107–139; BP diastolic 51–65; PULSE 64–100; RESP 16–18; TEMP 96.7–99.1; O2SAT 90–98
[2016-05-23] MEDS: LACTATED RINGER'S 1000 ML IV SCH ×2 (01:15→22:20)
[2016-05-23] MEDS: oxyCODONE/ACETAMINOPHEN 5 MG/325 MG TAB PO PRN ×3 (04:53→17:39)
[2016-05-23] MEDS: LEVOTHYROXINE SODIUM 25 MCG TAB PO SCH (06:59)
[2016-05-23 07:24] LABS: AUTOMATED NEUTROPHIL # 0.2 TH/MM3 (1.8-7.7); BASOPHIL % 0.2 % (0.0-2.0); EOSINOPHIL # 0.1 TH/MM3 (0-0.4); EOSINOPHIL % 1.8 % (0.0-4.0); HEMATOCRIT 25.2 % (35.0-46.0); LYMPH % 75.1 % (9.0-44.0); LYMPHOCYTE # 2.2 TH/MM3 (1.0-4.8); MEAN CELL VOLUME 93.9 FL (80.0-100.0); MEAN CORPUSCULAR HEMOGLOBIN 32.7 PG (27.0-34.0); MEAN CORPUSCULAR HGB CONC 34.8 % (32.0-36.0); MONO % 17.5 % (0.0-8.0); NEUT % 5.4 % (16.0-70.0); PLATELET COUNT 64 TH/MM3 (150-450); RED BLOOD COUNT 2.68 MIL/MM3 (4.00-5.30); RED CELL DISTRIBUTION WIDTH 15.6 % (11.6-17.2); WHITE BLOOD COUNT 2.9 TH/MM3 (4.0-11.0)
[2016-05-23 07:51] LABS: HEMO FLAGS AUTO DIFF
[2016-05-23 09:17] LABS: BANDS 1 % (0-6); EOSINOPHILS 4 % (0-4); NEUTROPHIL # MANUAL DIFF 0.2 TH/MM3 (1.8-7.7); POLYS (SEG NEUTROPHILS) 7 % (16-70); WBC DIFF SAMPLE 100
[2016-05-23 09:18] LABS: PLATELET ESTIMATE SMEAR LOW (NORMAL); PLATELET MORPHOLOGY NORMAL (NORMAL); SCAN/DIFF FINAL DIFF MANUAL
[2016-05-23] MEDS: ACETAMINOPHEN 325 MG TAB PO PRN ×2 (09:47→20:12)
[2016-05-23] MEDS: FUROSEMIDE 20 MG TAB PO SCH (09:48)
[2016-05-23] MEDS: PANTOPRAZOLE SOD 40 MG DELAYED RELEASE TAB PO SCH (09:48)
[2016-05-23] MEDS: POTASSIUM CHLORIDE 10 MEQ CAP PO SCH (09:48)
[2016-05-23] MEDS: DIAZEPAM 10 MG TAB PO SCH ×2 (09:48→20:11)
[2016-05-23] MEDS: FAMOTIDINE 20 MG TAB PO SCH ×2 (09:48→20:12)
[2016-05-23] MEDS: GABAPENTIN 300 MG CAP PO SCH ×3 (09:48→17:39)
[2016-05-23] MEDS: SODIUM CHLORIDE 0.9% FLUSH 5 ML FLUSH IV SCH ×2 (09:54→20:14)
--- NOTE | 2016-05-23 10:33 | PD.ONC.PN ---
Subjective Subjective Remarks Afebrile overnight. Pt states she is doing fair. Her headache persists. She has no SOB. She's waiting to go down stairs for placement of a Donaldson catheter as well as a lumbar puncture. Objective Data Date Time Temp Pulse Resp B/P Pulse Ox O2 Delivery O2 Flow Rate FiO2 05/23/16 08:00 97.3 64 16 130/63 96 05/23/16 06:00 19 05/23/16 04:00 96.7 67 16 109/54 98 05/23/16 00:00 97.1 65 16 107/55 92 05/22/16 22:25 20 05/22/16 22:25 20 05/22/16 20:00 97.4 75 16 120/57 96 05/22/16 16:34 97.6 79 16 138/63 97 05/22/16 12:05 97.6 112 16 132/60 94 05/23/16 05/23/16 05/23/16 07:00 15:00 23:00 Intake Total 480 ml Balance 480 ml Result Diagram: 05/23/16 0620 05/21/16 0734 Laboratory Results Laboratory Tests Test 05/22/16 05/23/16 18:10 06:20 Urine Color LIGHT-YELLOW Urine Turbidity CLEAR Urine pH 6.5 Urine Specific [place] 1.007 Urine Protein NEG mg/dL Urine Glucose (UA) NEG mg/dL Urine Ketones NEG mg/dL Urine Occult Blood NEG Urine Nitrite NEG Urine Bilirubin NEG Urine Urobilinogen LESS THAN 2.0 MG/DL Urine Leukocyte Esterase SMALL Urine RBC LESS THAN 1 /hpf Urine WBC 19 /hpf Urine Bacteria OCC /hpf Microscopic Urinalysis Comment CULTURE INDICATED White Blood Count 2.9 TH/MM3 Red Blood Count 2.68 MIL/MM3 Hemoglobin 8.8 GM/DL Hematocrit 25.2 % Mean Corpuscular Volume 93.9 FL Mean Corpuscular Hemoglobin 32.7 PG Mean Corpuscular Hemoglobin 34.8 % Concent Red Cell Distribution Width 15.6 % Platelet Count 64 TH/MM3 Mean Platelet Volume 8.1 FL Neutrophils (%) (Auto) 5.4 % Lymphocytes (%) (Auto) 75.1 % Monocytes (%) (Auto) 17.5 % Eosinophils (%) (Auto) 1.8 % Basophils (%) (Auto) 0.2 % Neutrophils # (Auto) 0.2 TH/MM3 Lymphocytes # (Auto) 2.2 TH/MM3 Monocytes # (Auto) 0.5 TH/MM3 Eosinophils # (Auto) 0.1 TH/MM3 Basophils # (Auto) 0.0 TH/MM3 CBC Comment AUTO DIFF Differential Total Cells 100 Counted Neutrophils % (Manual) 7 % Band Neutrophils % 1 % Lymphocytes % 76 % Monocytes % 12 % Eosinophils % 4 % Neutrophils # (Manual) 0.2 TH/MM3 Differential Comment FINAL DIFF MANUAL Platelet Estimate LOW Platelet Morphology Comment NORMAL Culture Results Microbiology Date/Time Procedure Status Source Growth 05/22/16 18:10 Urine Culture Received Urine Clean Catch Pending Administered Medications Medications (Trade) Dose Ordered Sig/Prashant Route PRN Reason Start Time Stop Time Status Last Admin Dose Admin Carisoprodol (Soma) 350 mg TID PRN PO PAIN 05/16/16 17:30 05/22/16 11:51 Furosemide (Lasix) 20 mg DAILY PO 05/17/16 09:00 05/23/16 09:48 Gabapentin (Neurontin) 300 mg TID PO 05/16/16 18:00 05/23/16 09:48 Levothyroxine Sodium (Synthroid) 25 mcg DAILY@06 PO 05/17/16 06:00 05/23/16 06:59 Potassium Chloride (KCl) 10 meq DAILY PO 05/17/16 09:00 05/23/16 09:48 Famotidine (Pepcid) 20 mg BID PO 05/16/16 21:00 05/23/16 09:48 IV Flush (NS Flush) 2 ml BID IV 05/16/16 21:00 05/23/16 09:54 Acetaminophen (Tylenol) 650 mg Q6HR PRN PO headache 05/17/16 06:30 05/23/16 09:47 Diazepam (Valium) 10 mg Q12HR PO 05/18/16 12:00 05/23/16 09:48 Oxycodone/ Acetaminophen (Percocet 5-325 Mg) 1 tab Q4H PRN PO pain 1-5 05/20/16 10:00 05/23/16 04:53 Pantoprazole Sodium (Protonix) 40 mg DAILY PO 05/22/16 09:00 05/23/16 09:48 Oxycodone HCl (Roxicodone) 10 mg Q4H PRN PO pain 6-10 05/21/16 16:00 05/23/16 07:00 Bisacodyl (Dulcolax Supp) 10 mg DAILY PRN AR CONSTIPATION 05/22/16 22:15 05/22/16 22:31 Objective Remarks GENERAL: Resting in bed in no distress. Just finished getting her ECHOcardiogram for upcoming induction chemotherapy. SKIN: Warm and dry. HEAD: Normocephalic. EYES: No injection or drainage. NECK: Supple, trachea midline. CARDIOVASCULAR: +S1/S2. No murmur appreciated. RESPIRATORY: Breath sounds equal bilaterally. No accessory muscle use. GASTROINTESTINAL: Abdomen soft, non-tender. Able to palpate pain pump in RUQ. EXTREMITIES: No cyanosis, or edema. MUSCULOSKELETAL: Adequate muscle tone. NEUROLOGICAL: A&Ox3. Moving all extremities independently. 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 No monocytic component. 05/22/16: flow cytometry shows acute myeloid leukemia with monocytic component. awaiting bone marrow results 05/21/2016: Blood counts are stable. Bone marrow path pending. B12 pending. 05/20/16: counts remain stable. bone marrow biopsy completed today 05/19/16: Counts are stable, no transfusion needed. 05/18/16: No bleeding. Order placed for BMB with invasive radiology. -- We will transfuse for platelets less than 10k and a Hgb of less than 7. Hx: Pt had a hemorrhoidectomy three weeks ago and has had some rectal bleeding since that time. She presented to the ER on 05/16/16 with complaints of SOB and chest tightness and was found to be quite anemic with a Hgb of 5.8. She was transfused 2 units at that time. Hematology was consulted on 05/17/16 for pancytopenia. Pt had imaging done to r/o a lymphoproliferative process. A CT scan of the CAP was essentially negative for this. A bone marrow biopsy taken on 05/20/16 confirmed the pathology of acute myeloid leukemia. The monocytic component does not appear to comprise the required 20% of marrow cellularity for a diagnosis of acute myelomonocytic leukemia. (2) Rectal bleed Status: Acute Plan: EGD/colonoscopy on 05/20/15 showed gastritis, irregular Z line and rectal nodule. Path report negative for malignancy. --GI following. -- Had hemorrhoid surgery three weeks ago with Dr. Schwartz. -- Controlled. No new bleeding. Assessment 61 y/o female with pancytopenia, suspected AML Plan 1. Monitor blood counts. 2. Donaldson catheter, lumbar puncture this afternoon. 3. Attempt to get Dr. Lopez's staff to refill pt's pain pump as she will be hospitalized for at least a month. 4. Plan to start induction chemotherapy on Thursday. Attending Statement The exam, history, and the medical decision-making described in the above note were completed with the assistance of the mid-level provider. I reviewed and agree with the findings presented. I attest that I had a [id number] encounter with the patient on the same day, and personally performed and documented my assessment and findings in the medical record.Still has headache. She is accepting the diagnosis and want to be aggressive with the treatment. Await ECHO, Donaldson cath placement. Await LP and CSF analysis to evaluate her persistent headache. She is due for pain pump refill next week, can get the refill cartridge from and have 's nurse refill the pump when it is due. Extensive discussion with patient regarding the diagnosis, prognosis, treatment plan. We discussed induction chemotherapy and need for consolidation therapy when she goes into remission. Plan to start induction chemotherapy on Thursday. Marissa Juarez May 23, 2016 10:33 Ryan Tripp MD May 23, 2016 16:23
--- NOTE | 2016-05-23 11:42 | EC ---
Study Study Date:05/23/2016 STUDY CONCLUSIONS SUMMARY - Left ventricle: The cavity size was normal. Wall thickness was normal. Systolic function was normal. The estimated ejection fraction was in the range of 55% to 60%. Wall motion was normal; there were no regional wall motion abnormalities. - Aortic valve: There was very mild stenosis. Trace regurgitation. If LV function is below 40, please consider prescribing an ACEI or ARB or document rationale for non-use. PROCEDURE DATA STUDY STATUS: Elective. Procedure: Transthoracic echocardiography. Image quality was good. Scanning was performed from the parasternal, apical, and subcostal acoustic windows. Study completion: The patient tolerated the procedure well. Transthoracic echocardiography. M-mode, complete 2D, complete spectral Doppler, and color Doppler. Height: Height: 69in. Patient status: Inpatient. CARDIAC ANATOMY LEFT VENTRICLE: The cavity size was normal. Wall thickness was normal. Systolic function was normal. The estimated ejection fraction was in the range of 55% to 60%. Wall motion was normal; there were no regional wall motion abnormalities. AORTIC VALVE: The valve appears to be grossly normal. Doppler: There was very mild stenosis. Trace regurgitation. Valve area: 1.35cm^2(VTI). Valve area: 1.29cm^2 (Vmax). Mean gradient: 5mm Hg (S). MITRAL VALVE: The valve appears to be grossly normal. Doppler: There was no evidence for stenosis. Trace to mild regurgitation. Peak gradient: 2mm Hg (D). LEFT ATRIUM: The atrium was normal in size. RIGHT VENTRICLE: The cavity size was normal. Systolic function was normal. PULMONIC VALVE: Not well visualized. Doppler: There was no evidence for stenosis. No significant regurgitation. TRICUSPID VALVE: The valve appears to be grossly normal. Doppler: There was no evidence for stenosis. Trace to mild regurgitation. BASIC MEASUREMENTS ADULT NORMAL Left ventricle LV internal dimension, ED, chordal level, 45.4 mm 43-52 PLAX LV internal dimension, ES, chordal level, 29.3 mm 23-38 PLAX Fractional shortening, chordal level, PLAX 35 % >29 LV posterior wall thickness, ED 6.82 mm IVS/LVPW ratio, ED 1 <1.3 Volume, ED, MOD, 1-plane 96 ml Volume, ES, MOD, 1-plane 44 ml Ejection fraction, MOD, 1-plane 54 % Stroke volume, MOD, 1-plane 52 ml Volume, ED, MOD, 2-plane 97 ml Volume, ES, MOD, 2-plane 44 ml Ejection fraction, MOD, 2-plane 55 % Stroke volume, MOD, 2-plane 53 ml Ventricular septum Septal thickness, ED 6.85 mm Aortic valve Leaflet separation 18 mm 15-26 Aorta Root diameter, ED 28 mm Left atrium Anterior-posterior dimension 30 mm BASIC MEASUREMENTS ADULT NORMAL Aortic valve Leaflet separation 18 mm 15-26 DOPPLER MEASUREMENTS ADULT NORMAL Main pulmonary artery Pressure, S 26 mm Hg =30 Aortic valve Peak velocity, S 141 cm/s Mean velocity, S 104 cm/s VTI, S 30.8 cm Mean gradient, S 5 mm Hg Valve area, VTI 1.35 cm^2 Valve area, Vmax 1.29 cm^2 Regurgitant velocity, ED 424 cm/s Regurgitant deceleration 1670 cm/s^2 Regurgitant pressure half-time 745 ms Regurgitant gradient, ED 72 mm Hg Mitral valve Peak E-wave velocity 74.5 cm/s Peak A-wave velocity 85.4 cm/s Peak gradient, D 2 mm Hg Peak E/A ratio 0.9 Tricuspid valve Regurgitant peak velocity 244 cm/s Peak RV-RA gradient, S 24 mm Hg Systemic veins Estimated CVP 5 mm Hg Right ventricle RV pressure, S 29 mm Hg <30 Pulmonic valve Peak velocity, S 80 cm/s LEGEND: Mean values are shown as u=mean value. Asterisk (*) marcelo values outside specified normal range. Prepared and signed by Marco Ladnis [id number]
[2016-05-23] MEDS ORDERED: fentaNYL CITRATE 250 MCG/5 ML AMP ONE ×2 (13:44→15:10)
[2016-05-23] MEDS ORDERED: MIDAZOLAM HCL 5 MG/5 ML VIAL ONE ×2 (13:44→15:10)
[2016-05-23] MEDS ORDERED: LIDOCAINE 1%/EPINEPHrine 1:100,000 SOLN 20 ML VIAL ONE (14:30)
--- NOTE | 2016-05-23 15:28 | PD.RAD ---
Post Procedure Progress Note Pre Procedure Diagnosis: (1) Pancytopenia (2) Leukopenia Post Procedure Diagnosis: (1) Thrombocytopenia (2) Pancytopenia Procedure Date: May 23, 2016 Supervising Radiologist: Bubba Cherry Estimated blood loss: 2cc Anesthesia: Local, Conscious Sedation Plan of Activity Patient to Unit: ROPU Patient Condition: Fair Additional Comments: 3 lumen Donaldson catheter placed without difficulty. catheter in good position OK for use. See PACS Report for procedural detail/treatment Bubba Cherry MD May 23, 2016 15:28
--- NOTE | 2016-05-23 15:31 | HHI.PR ---
Subjective Remarks The pt was going for port placement and LP. Her sister was at the bedside. The pt's headache was no better and she still has blurred vision. Objective Vitals Vital Signs Date Time Temp Pulse Resp B/P Pulse Ox O2 Delivery O2 Flow Rate FiO2 05/23/16 08:00 97.3 64 16 130/63 96 05/23/16 06:00 19 05/23/16 04:00 96.7 67 16 109/54 98 05/23/16 00:00 97.1 65 16 107/55 92 05/22/16 22:25 20 05/22/16 22:25 20 05/22/16 20:00 97.4 75 16 120/57 96 05/22/16 16:34 97.6 79 16 138/63 97 I/O 05/22/16 05/22/16 05/22/16 05/23/16 05/23/16 05/23/16 07:00 15:00 23:00 07:00 15:00 23:00 Intake Total 480 ml 720 ml 720 ml 480 ml Balance 480 ml 720 ml 720 ml 480 ml Intake Oral 480 ml 720 ml 720 ml 480 ml # Voids 2 6 1 3 # Bowel Movements 0 Result Diagram: 05/23/16 0620 05/21/16 0734 Imaging Last Impressions Bone Biopsy CT 05/20/16 0846 Signed Impressions: Service Date/Time: Friday, May 20, 2016 09:13 - CONCLUSION: 1. Uncomplicated CT guided bone marrow aspirate. 2. Uncomplicated CT guided bone marrow biopsy. Yazan Saucedo MD Head CT 05/20/16 0000 Signed Impressions: Service Date/Time: Friday, May 20, 2016 15:16 - CONCLUSION: Normal examination for a patient of this age. No significant change has occurred. Emilio Thomas MD Chest CT 05/17/16 0000 Signed Impressions: Service Date/Time: Tuesday, May 17, 2016 15:14 - CONCLUSION: 1. 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 There are trace to very small bilateral pleural effusions and mild cardiomegaly noted. 2. No lobar consolidation. 3. Upper limits of normal to mildly enlarged mediastinal and bilateral hilar lymph nodes, nonspecific but presumably reactive. Bravo Mendez MD Abdomen/Pelvis CT 05/17/16 0000 Signed Impressions: Service Date/Time: Tuesday, May 17, 2016 15:18 - CONCLUSION: 1. Heterogeneous liver, nonspecific but possibly fatty infiltration, hepatocellular disease or a combination of the two. Nothing focal. 2. Nonspecific distention of the gallbladder. No stone, perceptible inflammatory changes or ductal dilatation demonstrated. 3. No obstruction, inflammatory changes or perceptible mass of the GI tract. Bravo Mendez MD Chest X-Ray 05/16/16 0000 Signed Impressions: Service Date/Time: Monday, May 16, 2016 19:23 - CONCLUSION: No acute disease. Minimal interstitial densities likely chronic. Kilo Cotto MD Objective Remarks GENERAL: This is a well-nourished, well-developed patient, in no apparent distress. HEENT: Tenderness to palpation around frontal cranium. CARDIOVASCULAR: Regular rate and rhythm without murmurs, gallops, or rubs. RESPIRATORY: Clear to auscultation. Breath sounds equal bilaterally. No wheezes , rales, or rhonchi. GASTROINTESTINAL: Abdomen soft, non-tender, nondistended. Normal active bowel sounds MUSCULOSKELETAL: Extremities without clubbing, cyanosis, or edema. NEURO: Alert & Oriented x4 to person, place, time, situation. Moves all ext x4. Normal finger to nose test. EOMI. Procedures EGD/ colonoscopy Bone marrow biopsy Medications and IVs Current Medications Medications (Trade) Dose Ordered Sig/Prashant Route Start Time Stop Time Status Last Admin (Soma) 350 mg TID PRN PO 05/16/16 17:30 05/22/16 11:51 (Lasix) 20 mg DAILY PO 05/17/16 09:00 05/23/16 09:48 (Neurontin) 300 mg TID PO 05/16/16 18:00 05/23/16 09:48 (Synthroid) 25 mcg DAILY@06 PO 05/17/16 06:00 05/23/16 06:59 (KCl) 10 meq DAILY PO 05/17/16 09:00 05/23/16 09:48 (Pepcid) 20 mg BID PO 05/16/16 21:00 05/23/16 09:48 (NS Flush) 2 ml UNSCH PRN IV 05/16/16 17:45 (NS Flush) 2 ml BID IV 05/16/16 21:00 05/23/16 09:54 (Zofran Inj) 4 mg Q6H PRN IV 05/16/16 17:45 (Tylenol) 650 mg Q6HR PRN PO 05/17/16 06:30 05/23/16 09:47 Diazepam 10 mg 10 mg Q12HR PO 05/18/16 12:00 05/23/16 09:48 (Lr 1000 ml Inj) 1,000 ml @ 30 mls/hr Q24H IV 05/20/16 01:15 (Percocet 5-325 Mg) 1 tab Q4H PRN PO 05/20/16 10:00 05/23/16 13:01 ([place]asa Supp) 1,000 mg HS RECTAL 05/20/16 21:00 Hold (Protonix) 40 mg DAILY PO 05/22/16 09:00 05/23/16 09:48 (Roxicodone) 10 mg Q4H PRN PO 05/21/16 16:00 05/23/16 07:00 (Dulcolax Supp) 10 mg DAILY PRN OK 05/22/16 22:15 05/22/16 22:31 Sodium Biphosphate/ Sodium Phosphate 133 ml 133 ml ONCE PRN OK 05/22/16 22:15 05/23/16 22:14 (Rocephin Inj/NS Inj) 100 ml @ 200 mls/hr Q24H IV 05/23/16 16:00 A/P Problem List: (1) Pancytopenia ICD Code: D61.818 Status: Acute (2) GI bleed ICD Code: K92.2 Status: Acute Assessment and Plan 61-year-old female with recent hemorrhoidectomy 3 weeks ago presented with severe symptomatic anemia, thrombocytopenia, and leukopenia. Symptomatic anemia and GI bleeding: Recent hemorrhoidectomy 3 weeks ago. Patient denies any active bleeding since the procedure. Hemoccult in the emergency room is positive. Appreciate GI following. S/p EGD/colonoscopy 05/20 which revealed gastritis and a rectal ulcer. - Continue Protonix. Monitor for bleeding. - Follow CBC and transfuse as needed. - follow pathology. AML Bone marrow biopsy revealed AML. Oncology consult appreciated. - chemotherapy planning per oncology. Port placement 05/23. - Follow-up CBC and transfuse as needed. Headache New in onset, constant over the past few days. Pt also notes difficulty reading s/t blurry vision over the past few days. CT brain negative for an acute process. Fioricet did not help. - pain control as needed. - LP per oncology. - consider MRI. Chronic back pain Stable. Patient has a Dilaudid/fentanyl pump implanted on the right lower quadrant of her abdomen. - Soma 3 times a day per the patient's home dose. - pain control as needed. GI prophylaxis: Protonix/ ranitidine. DVT PPx: SCDs. Chemoprophylaxis contraindicated. Discharge Planning Awaiting clinical improvement. Problem Qualifiers (1) GI bleed: Qualified Code: K92.2 - Gastrointestinal hemorrhage, unspecified gastrointestinal hemorrhage type Gustavo Mejia DO May 23, 2016 15:31
--- NOTE | 2016-05-23 16:14 | RADRPT ---
EXAM DATE/TIME: 05/23/2016 14:16 [facility] COMPARISON: No previous studies available for comparison. INDICATIONS : Patient with history of leukemia in need of donaldson catheter placement. MEDICAL HISTORY : Hypothyroidism GERD Chronic back pain Peripheral edema hemorrhoids SURGICAL HISTORY : Back and neck surgery Rotator cuff surgery Pain pump placement on the right lower abdomen ENCOUNTER: Initial ACUITY: >1 year PAIN SCORE: 0/10 FLUORO TIME: 2.1 minutes SEDATION TIME: 30 minutes ACCESS: Right internal jugular vein SEDATION: 1.) 7 mg midazolam (Versed) IV 2.) 400 mcg fentanyl (Sublimaze) IV Prophylactic antibiotics were administered with appropriate pre-procedure timing. Vancomycin within 2 hours of procedure, Ancef (or alternative) within 1 hour of procedure. DEVICE: 1. 10 English triple lumen Donaldson catheter PROCEDURE : 1. Ultrasound-guided puncture of the prescribed vein. 2. Fluoroscopic guidance. 3. Donaldson catheter placement 4. Conscious sedation with continuous EKG and oximetry monitoring. The risks, benefits and alternatives to the procedure were explained and verbal and written consent w as obtained. The site was prepped in sterile fashion. Full sterile technique was used, including ca p, mask, sterile gloves and gown and a large sterile sheet. Hand hygiene and 2% chlorhexidine Betadi ne was utilized per protocol for cutaneous antisepsis with appropriate dry time for site. The skin a nd subcutaneous tissues were infiltrated with local anesthetic solution. With ultrasound and fluoroscopic guidance a dermatotomy was created in the supraclavicular region. A micropuncture set was used to access the right internal jugular vein and serial dilatation was perfo rmed to accept a Donaldson catheter. A subcutaneous tunnel was created and in antegrade fashion the ca theter was pulled through the tunnel, cut to the appropriate length and place through the sheath. Th e catheter was locked with heparin and sutured in place. Conscious sedation was performed with the prescribed dosages and duration as above. The patient tole rated the procedure well and there were no complications. EKG and oximetry remained stable throughou t the procedure. The patient was sent to post anesthesia recovery in stable condition. CONCLUSION: Uncomplicated Donaldson catheter placement as above. Bubba Cherry MD on May 23, 2016 at 16:13 Board Certified Radiologist. This report was verified electronically.
--- NOTE | 2016-05-23 16:15 | RADRPT ---
EXAM DATE/TIME: 05/23/2016 14:16 [facility] COMPARISON: No previous studies available for comparison. INDICATIONS : Patient with possible MS in need of lumbar puncture. MEDICAL HISTORY : Hypothyroidism GERD Chronic back pain Peripheral edema hemorrhoids SURGICAL HISTORY : Back and neck surgery Rotator cuff surgery Pain pump placement on the right lower abdomen ENCOUNTER: Initial ACUITY: 2 days PAIN SCORE: 0/10 LUMBAR PUNCTURE TIME: 1426 hours FLUORO TIME: 2.1 minutes ACCESS LEVEL: L3-4 FLUID: 20 cc of clear CSF was collected and sent to the laboratory for analysis. PROCEDURE : 1. Fluoroscopic guided lumbar puncture. The risks, benefits and alternatives to the procedure were explained and verbal and written consent w as obtained. The site was prepped in sterile fashion. Full sterile technique was used, including ca p, mask, sterile gloves and gown and a large sterile sheet. Hand hygiene and 2% chlorhexidine and/or betadine/alcohol prep was utilized per protocol for cutaneous antisepsis. The skin and subcutaneous tissues were infiltrated with local anesthetic solution. With fluoroscopic guidance the lumbar thecal sac was punctured at the level above. The fluid describ ed above was removed without difficulty. The patient tolerated the procedure well and there were no complications. CONCLUSION: Uncomplicated fluoroscopically guided lumbar puncture. Bubba Cherry MD on May 23, 2016 at 16:13 Board Certified Radiologist. This report was verified electronically.
[2016-05-23 17:09] LABS: GROSS BLOOD TUBE #1 0 (0); SUPERNATE COLOR TUBE #1 CLEAR (CLEAR)
[2016-05-23 17:10] LABS: GROSS BLOOD TUBE #2 0 (0); GROSS BLOOD TUBE #3 0 (0); SUPERNATE COLOR TUBE #2 CLEAR (CLEAR); SUPERNATE COLOR TUBE #3 CLEAR (CLEAR); VOLUME TUBE # 3 4.5 ML; WBC TUBE #1 16 /MM3 (0-10)
[2016-05-23 17:11] LABS: CSF LYMPHOCYTES 100 %; CSF NEUTROPHILS 0 %; GROSS BLOOD TUBE #4 0 (0); SUPERNATE COLOR TUBE #4 CLEAR (CLEAR)
[2016-05-23] MEDS: cefTRIAXone INJ 1,000 MG in SODIUM CHLORIDE 0.9% INJ 100 ML IV SCH (17:39)
[2016-05-24] VITALS: BP 114/56; PULSE 90; RESP 16; TEMP 97.5; O2SAT 95
[2016-05-24 04:00] VITALS: BP 105/54; PULSE 87; RESP 15; TEMP 96.7; O2SAT 95
[2016-05-24] MEDS: LEVOTHYROXINE SODIUM 25 MCG TAB PO SCH (05:04)
[2016-05-24] MEDS: oxyCODONE/ACETAMINOPHEN 5 MG/325 MG TAB PO PRN ×5 (05:04→22:39)
[2016-05-24 05:55] LABS: HEMATOCRIT 23.5 % (35.0-46.0); MEAN CORPUSCULAR HEMOGLOBIN 33.1 PG (27.0-34.0); MEAN CORPUSCULAR HGB CONC 35.3 % (32.0-36.0); PLATELET COUNT 59 TH/MM3 (150-450); RED CELL DISTRIBUTION WIDTH 15.4 % (11.6-17.2); WHITE BLOOD COUNT 2.5 TH/MM3 (4.0-11.0)
[2016-05-24 06:04] LABS: HEMO FLAGS AUTO DIFF
[2016-05-24 08:00] VITALS: BP 111/53; PULSE 90; RESP 18; TEMP 97.5; O2SAT 94
[2016-05-24] MEDS: FAMOTIDINE 20 MG TAB PO SCH ×2 (08:12→20:17)
[2016-05-24] MEDS: POTASSIUM CHLORIDE 10 MEQ CAP PO SCH (08:12)
[2016-05-24] MEDS: FUROSEMIDE 20 MG TAB PO SCH (08:12)
[2016-05-24] MEDS: DIAZEPAM 10 MG TAB PO SCH (08:12)
[2016-05-24] MEDS: GABAPENTIN 300 MG CAP PO SCH ×3 (08:12→17:37)
[2016-05-24] MEDS: PANTOPRAZOLE SOD 40 MG DELAYED RELEASE TAB PO SCH (08:12)
[2016-05-24] MEDS: SODIUM CHLORIDE 0.9% FLUSH 5 ML FLUSH IV SCH ×2 (08:18→20:17)
[2016-05-24] MEDS: SODIUM CHLORIDE 0.9% FLUSH 5 ML FLUSH IVF SCH (08:22)
[2016-05-24 09:31] LABS: BANDS 1 % (0-6); BASOPHILS 1 % (0-2); EOSINOPHILS 4 % (0-4); NEUTROPHIL # MANUAL DIFF 0.1 TH/MM3 (1.8-7.7); PLATELET ESTIMATE SMEAR LOW (NORMAL); PLATELET MORPHOLOGY NORMAL (NORMAL); POLYS (SEG NEUTROPHILS) 2 % (16-70); WBC DIFF SAMPLE 100
[2016-05-24 09:32] LABS: SCAN/DIFF FINAL DIFF MANUAL
[2016-05-24] MEDS ORDERED: LACTULOSE SYRUP 20 GM/30 ML CUP PO ONE (10:30)
--- NOTE | 2016-05-24 10:36 | PD.ONC.PN ---
Subjective Subjective Remarks c/o constipation still headaches soreness from Huang placement. Objective Data Date Time Temp Pulse Resp B/P Pulse Ox O2 Delivery O2 Flow Rate FiO2 05/24/16 08:00 97.5 90 18 111/53 94 05/24/16 06:43 19 05/24/16 04:00 96.7 87 15 105/54 95 05/24/16 02:11 20 05/24/16 00:00 97.5 90 16 114/56 95 05/23/16 22:19 20 05/23/16 20:00 98.1 100 17 123/56 96 05/23/16 16:45 99.1 82 16 139/65 96 05/23/16 15:44 97.6 73 18 123/51 90 05/23/16 12:00 97.7 68 16 112/55 96 05/24/16 05/24/16 05/24/16 07:00 15:00 23:00 Intake Total 720 ml Balance 720 ml Result Diagram: 05/24/16 0500 05/21/16 0734 Laboratory Results Laboratory Tests Test 05/23/16 05/24/16 14:26 05:00 CSF Volume (Tube 1) 4.0 ML CSF Supernatant Color (tube 1) CLEAR CSF Gross Blood (Tube 1) 0 CSF WBC (Tube 1) 16 /MM3 CSF RBC (Tube 1) 8 /MM3 CSF Volume (Tube 2) 5.0 ML CSF Supernatant Color (tube 2) CLEAR CSF Gross Blood (Tube 2) 0 CSF Volume (Tube 3) 4.5 ML CSF Supernatant Color (tube 3) CLEAR CSF Gross Blood (Tube 3) 0 CSF Volume (Tube 4) 6.0 ML CSF Supernatant Color (tube 4) CLEAR CSF Gross Blood (Tube 4) 0 CSF Neutrophils 0 % CSF Lymphocytes 100 % White Blood Count 2.5 TH/MM3 Red Blood Count 2.50 MIL/MM3 Hemoglobin 8.3 GM/DL Hematocrit 23.5 % Mean Corpuscular Volume 94.0 FL Mean Corpuscular Hemoglobin 33.1 PG Mean Corpuscular Hemoglobin 35.3 % Concent Red Cell Distribution Width 15.4 % Platelet Count 59 TH/MM3 Mean Platelet Volume 8.2 FL Neutrophils (%) (Auto) % Lymphocytes (%) (Auto) % Monocytes (%) (Auto) % Eosinophils (%) (Auto) % Basophils (%) (Auto) % Neutrophils # (Auto) TH/MM3 Lymphocytes # (Auto) TH/MM3 Monocytes # (Auto) TH/MM3 Eosinophils # (Auto) TH/MM3 Basophils # (Auto) TH/MM3 CBC Comment AUTO DIFF Differential Total Cells 100 Counted Neutrophils % (Manual) 2 % Band Neutrophils % 1 % Lymphocytes % 88 % Monocytes % 4 % Eosinophils % 4 % Basophils % 1 % Neutrophils # (Manual) 0.1 TH/MM3 Differential Comment FINAL DIFF MANUAL Platelet Estimate LOW Platelet Morphology Comment NORMAL Culture Results Microbiology Date/Time Procedure Status Source Growth 05/22/16 18:10 Urine Culture - Preliminary Resulted Urine Clean Catch Gram Negative Leonardo Administered Medications Medications (Trade) Dose Ordered Sig/Prashant Route PRN Reason Start Time Stop Time Status Last Admin Dose Admin Carisoprodol (Soma) 350 mg TID PRN PO PAIN 05/16/16 17:30 05/22/16 11:51 Furosemide (Lasix) 20 mg DAILY PO 05/17/16 09:00 05/24/16 08:12 Gabapentin (Neurontin) 300 mg TID PO 05/16/16 18:00 05/24/16 08:12 Levothyroxine Sodium (Synthroid) 25 mcg DAILY@06 PO 05/17/16 06:00 05/24/16 05:04 Potassium Chloride (KCl) 10 meq DAILY PO 05/17/16 09:00 05/24/16 08:12 Famotidine (Pepcid) 20 mg BID PO 05/16/16 21:00 05/24/16 08:12 IV Flush (NS Flush) 2 ml BID IV 05/16/16 21:00 05/24/16 08:18 Acetaminophen (Tylenol) 650 mg Q6HR PRN PO headache 05/17/16 06:30 05/23/16 20:12 Diazepam (Valium) 10 mg Q12HR PO 05/18/16 12:00 05/24/16 08:12 Oxycodone/ Acetaminophen (Percocet 5-325 Mg) 1 tab Q4H PRN PO pain 1-5 05/20/16 10:00 05/24/16 09:57 Pantoprazole Sodium (Protonix) 40 mg DAILY PO 05/22/16 09:00 05/24/16 08:12 Oxycodone HCl 10 mg 10 mg Q4H PRN PO pain 6-10 05/21/16 16:00 05/24/16 08:11 Ceftriaxone Sodium/Sodium Chloride (Rocephin Inj/NS Inj) 100 ml @ 200 mls/hr Q24H IV 05/23/16 16:00 05/23/16 17:39 Heparin Sodium (Porcine) (Heparin Central Flush) DAILY IVF 05/24/16 09:00 05/24/16 08:12 Heparin Sodium (Porcine) (Heparin Central Flush) UNSCH PRN IVF SEE PROTOCOL 05/23/16 15:30 05/24/16 05:10 Objective Remarks GENERAL: Resting in bed in no distress. SKIN: Warm and dry. R chest wall huang in place. No bruising. Tenderness. HEAD: Normocephalic. EYES: No injection or drainage. NECK: Supple, trachea midline. CARDIOVASCULAR: +S1/S2. No murmur appreciated. RESPIRATORY: Breath sounds equal bilaterally. No accessory muscle use. GASTROINTESTINAL: Abdomen soft, non-tender. Able to palpate pain pump in RUQ. EXTREMITIES: No cyanosis, or edema. MUSCULOSKELETAL: Adequate muscle tone. NEUROLOGICAL: A&Ox3. Moving all extremities independently. Assessment/Plan Problem List: (1) Pancytopenia Status: Acute Plan: 05/24/16: AML, pending cytogenetics, s/p LP to evaluate BOOKER r/o CLIENT APPLICATION SUPPORT ENGINEER involvement. Supportive tx. Plan for induction on Thursday. No transfusion RBC or platelets needed. 05/23/16: Bone marrow results are back and confirm the diagnosis of acute myeloid leukemia. No monocytic component. 05/22/16: flow cytometry shows acute myeloid leukemia with monocytic component. awaiting bone marrow results 05/21/2016: Blood counts are stable. Bone marrow path pending. B12 pending. 05/20/16: counts remain stable. bone marrow biopsy completed today 05/19/16: Counts are stable, no transfusion needed. 05/18/16: No bleeding. Order placed for BMB with invasive radiology. -- We will transfuse for platelets less than 10k and a Hgb of less than 7. Hx: Pt had a hemorrhoidectomy three weeks ago and has had some rectal bleeding since that time. She presented to the ER on 05/16/16 with complaints of SOB and chest tightness and was found to be quite anemic with a Hgb of 5.8. She was transfused 2 units at that time. Hematology was consulted on 05/17/16 for pancytopenia. Pt had imaging done to r/o a lymphoproliferative process. A CT scan of the CAP was essentially negative for this. A bone marrow biopsy taken on 05/20/16 confirmed the pathology of acute myeloid leukemia. The monocytic component does not appear to comprise the required 20% of marrow cellularity for a diagnosis of acute myelomonocytic leukemia. (2) Rectal bleed Status: Acute Plan: 05/24/16. No bleeding. Concern about constipation and exacerbating bleeding. Pt neutropenic so no suppository or Enema. Start stool softner and trial lactulose. State Miralax does not work for her. EGD/colonoscopy on 05/20/15 showed gastritis, irregular Z line and rectal nodule. Path report negative for malignancy. --GI following. -- Had hemorrhoid surgery three weeks ago with Dr. Schwartz. -- Controlled. No new bleeding. Assessment 61 y/o female with pancytopenia, suspected AML Plan 1. Monitor blood counts. 2. s/p Huang catheter 3. Pending CSF cytology 4. Pending Dr. Lopez's staff to refill pt's pain pump as she will be hospitalized for at least a month. 5. Plan to start induction chemotherapy on Thursday. 6. Optimize constipation regimen. 7. No suppository or Enema. 8. Monitor for fevers Khadijah Paula MD May 24, 2016 10:36
[2016-05-24] MEDS: DOCUSATE SODIUM 100 MG CAP PO SCH ×2 (12:15→20:18)
--- NOTE | 2016-05-24 13:40 | HHI.PR ---
Subjective Remarks The patient's sister was at the bedside. The patient endorsed feeling very anxious and was inquiring about anxiety medication. The patient still has a constant headache of around 5 out of 10 in severity. She was trying warm compresses. She endorses constipation. She wanted to know the results of her lumbar puncture. She wanted to know what kind of bacteria was grown in her urine. Discussed with nursing. Objective Vitals Vital Signs Date Time Temp Pulse Resp B/P Pulse Ox O2 Delivery O2 Flow Rate FiO2 05/24/16 08:00 97.5 90 18 111/53 94 05/24/16 06:43 19 05/24/16 04:00 96.7 87 15 105/54 95 05/24/16 02:11 20 05/24/16 00:00 97.5 90 16 114/56 95 05/23/16 22:19 20 05/23/16 20:00 98.1 100 17 123/56 96 05/23/16 16:45 99.1 82 16 139/65 96 05/23/16 15:44 97.6 73 18 123/51 90 I/O 05/23/16 05/23/16 05/23/16 05/24/16 05/24/16 05/24/16 07:00 15:00 23:00 07:00 15:00 23:00 Intake Total 480 ml 720 ml 720 ml 480 ml Balance 480 ml 720 ml 720 ml 480 ml Intake Oral 480 ml 720 ml 720 ml 480 ml # Voids 3 1 2 2 1 Result Diagram: 05/24/16 0500 05/21/16 0734 Imaging Last Impressions Lumbar Puncture Fluoroscopy 05/23/16 0000 Signed Impressions: Service Date/Time: Monday, May 23, 2016 14:16 - CONCLUSION: Uncomplicated fluoroscopically guided lumbar puncture. Bubba Cherry MD Catheter Placement X-Ray 05/23/16 0000 Signed Impressions: Service Date/Time: Monday, May 23, 2016 14:16 - CONCLUSION: Uncomplicated Donaldson catheter placement as above. Bubba Cherry MD Bone Biopsy CT 05/20/16 0846 Signed Impressions: Service Date/Time: Friday, May 20, 2016 09:13 - CONCLUSION: 1. Uncomplicated CT guided bone marrow aspirate. 2. Uncomplicated CT guided bone marrow biopsy. Yazan Saucedo MD Head CT 05/20/16 0000 Signed Impressions: Service Date/Time: Friday, May 20, 2016 15:16 - CONCLUSION: Normal examination for a patient of this age. No significant change has occurred. Emilio Thomas MD Chest CT 05/17/16 0000 Signed Impressions: Service Date/Time: Tuesday, May 17, 2016 15:14 - CONCLUSION: 1. 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 There are trace to very small bilateral pleural effusions and mild cardiomegaly noted. 2. No lobar consolidation. 3. Upper limits of normal to mildly enlarged mediastinal and bilateral hilar lymph nodes, nonspecific but presumably reactive. Bravo Mendez MD Abdomen/Pelvis CT 05/17/16 0000 Signed Impressions: Service Date/Time: Tuesday, May 17, 2016 15:18 - CONCLUSION: 1. Heterogeneous liver, nonspecific but possibly fatty infiltration, hepatocellular disease or a combination of the two. Nothing focal. 2. Nonspecific distention of the gallbladder. No stone, perceptible inflammatory changes or ductal dilatation demonstrated. 3. No obstruction, inflammatory changes or perceptible mass of the GI tract. Braov Mendez MD Chest X-Ray 05/16/16 0000 Signed Impressions: Service Date/Time: Monday, May 16, 2016 19:23 - CONCLUSION: No acute disease. Minimal interstitial densities likely chronic. Kilo Cotto MD Objective Remarks GENERAL: This is a well-nourished, well-developed patient, in no apparent distress. HEENT: Tenderness to palpation around frontal cranium. CARDIOVASCULAR: Regular rate and rhythm without murmurs, gallops, or rubs. RESPIRATORY: Clear to auscultation. Breath sounds equal bilaterally. No wheezes , rales, or rhonchi. GASTROINTESTINAL: Abdomen soft, non-tender, nondistended. Normal active bowel sounds MUSCULOSKELETAL: Extremities without clubbing, cyanosis, or edema. NEURO: Alert & Oriented x4 to person, place, time, situation. Moves all ext x4. Normal finger to nose test. EOMI. PSYCH: Anxious. Procedures EGD/ colonoscopy Bone marrow biopsy Medications and IVs Current Medications Medications (Trade) Dose Ordered Sig/Prashant Route Start Time Stop Time Status Last Admin (Soma) 350 mg TID PRN PO 05/16/16 17:30 05/22/16 11:51 (Lasix) 20 mg DAILY PO 05/17/16 09:00 05/24/16 08:12 (Neurontin) 300 mg TID PO 05/16/16 18:00 05/24/16 12:15 (Synthroid) 25 mcg DAILY@06 PO 05/17/16 06:00 05/24/16 05:04 (KCl) 10 meq DAILY PO 05/17/16 09:00 05/24/16 08:12 (Pepcid) 20 mg BID PO 05/16/16 21:00 05/24/16 08:12 (NS Flush) 2 ml UNSCH PRN IV 05/16/16 17:45 (NS Flush) 2 ml BID IV 05/16/16 21:00 05/24/16 08:18 (Zofran Inj) 4 mg Q6H PRN IV 05/16/16 17:45 Acetaminophen 650 mg 650 mg Q6HR PRN PO 05/17/16 06:30 05/23/16 20:12 (Lr 1000 ml Inj) 1,000 ml @ 30 mls/hr Q24H IV 05/20/16 01:15 (Percocet 5-325 Mg) 1 tab Q4H PRN PO 05/20/16 10:00 05/24/16 09:57 (Canasa Supp) 1,000 mg HS RECTAL 05/20/16 21:00 Hold (Protonix) 40 mg DAILY PO 05/22/16 09:00 05/24/16 08:12 Oxycodone HCl 10 mg 10 mg Q4H PRN PO 05/21/16 16:00 05/24/16 12:15 (Rocephin Inj/NS Inj) 100 ml @ 200 mls/hr Q24H IV 05/23/16 16:00 05/23/16 17:39 (NS Flush) DAILY IVF 05/24/16 09:00 (Heparin Central Flush) DAILY IVF 05/24/16 09:00 05/24/16 08:12 (NS Flush) UNSCH PRN IVF 05/23/16 15:30 (Heparin Central Flush) UNSCH PRN IVF 05/23/16 15:30 05/24/16 05:10 (Colace) 100 mg BID PO 05/24/16 11:00 05/24/16 12:15 (Ativan) 1 mg Q4HR PRN PO 05/24/16 13:45 UNV (Ativan) 1 mg ONCE ONCE PO 05/24/16 13:45 05/24/16 13:46 UNV A/P Problem List: (1) Pancytopenia ICD Code: D61.818 Status: Acute (2) GI bleed ICD Code: K92.2 Status: Acute Assessment and Plan 61-year-old female with recent hemorrhoidectomy 3 weeks ago presented with severe symptomatic anemia, thrombocytopenia, and leukopenia. Symptomatic anemia and GI bleeding: Recent hemorrhoidectomy 3 weeks ago. Patient denies any active bleeding since the procedure. Hemoccult in the emergency room is positive. Appreciate GI following. S/p EGD/colonoscopy 05/20 which revealed gastritis and a rectal ulcer. - Continue Protonix. Monitor for bleeding. - Follow CBC and transfuse as needed. - follow pathology. AML Bone marrow biopsy revealed AML. Oncology consult appreciated. - chemotherapy planning per oncology. Port placement 05/23. Induction chemo planned for 05/26. - Follow-up CBC and transfuse as needed. - neutropenic precautions. Headache New in onset, constant over the past few days. Pt also notes difficulty reading s/t blurry vision over the past few days. CT brain negative for an acute process. Fioricet did not help. - pain control as needed. - LP per oncology. - consider MRI. Chronic back pain Stable. Patient has a Dilaudid/fentanyl pump implanted on the right lower quadrant of her abdomen. - Soma 3 times a day per the patient's home dose. - pain control as needed. Anxiety The pt has been on Valium for many years but is reporting breakthrough anxiety. - d/c Valium and start Ativan as needed. GI prophylaxis: Protonix/ ranitidine. DVT PPx: SCDs. Chemoprophylaxis contraindicated. Discharge Planning Awaiting clinical improvement. Problem Qualifiers (1) GI bleed: Qualified Code: K92.2 - Gastrointestinal hemorrhage, unspecified gastrointestinal hemorrhage type Gustavo Mejia DO May 24, 2016 13:40
[2016-05-24] MEDS ORDERED: LORazepam 1 MG TAB PO ONE (13:45)
[2016-05-24] MEDS: cefTRIAXone INJ 1,000 MG in SODIUM CHLORIDE 0.9% INJ 100 ML IV SCH (14:29)
[2016-05-24] MEDS: LORazepam 1 MG TAB PO PRN ×2 (17:37→22:38)
[2016-05-24 20:00] VITALS: BP 117/61; PULSE 70; RESP 18; TEMP 97.5; O2SAT 97
[2016-05-25] VITALS: BP 124/64; PULSE 66; RESP 16; TEMP 97; O2SAT 99
[2016-05-25] MEDS: LACTATED RINGER'S 1000 ML IV SCH ×2 (00:50→23:45)
[2016-05-25] MEDS: CARISOPRODOL 350 MG TAB PO PRN ×3 (02:45→23:12)
[2016-05-25 04:00] VITALS: BP 113/58; PULSE 89; RESP 16; TEMP 97.9; O2SAT 98
[2016-05-25] MEDS: LEVOTHYROXINE SODIUM 25 MCG TAB PO SCH (06:04)
[2016-05-25 07:45] VITALS: BP 105/99; PULSE 76; RESP 20; TEMP 96.5; O2SAT 99
[2016-05-25] MEDS: GABAPENTIN 300 MG CAP PO SCH ×3 (08:24→17:40)
[2016-05-25] MEDS: FUROSEMIDE 20 MG TAB PO SCH (08:25)
[2016-05-25] MEDS: PANTOPRAZOLE SOD 40 MG DELAYED RELEASE TAB PO SCH (08:25)
[2016-05-25] MEDS: FAMOTIDINE 20 MG TAB PO SCH ×2 (08:25→20:06)
[2016-05-25] MEDS: DOCUSATE SODIUM 100 MG CAP PO SCH ×2 (08:25→20:06)
[2016-05-25] MEDS: POTASSIUM CHLORIDE 10 MEQ CAP PO SCH (08:25)
[2016-05-25] MEDS: oxyCODONE/ACETAMINOPHEN 5 MG/325 MG TAB PO PRN ×2 (08:25→15:44)
[2016-05-25] MEDS: SODIUM CHLORIDE 0.9% FLUSH 5 ML FLUSH IV SCH ×2 (08:35→20:10)
[2016-05-25] MEDS: SODIUM CHLORIDE 0.9% FLUSH 5 ML FLUSH IVF SCH (08:35)
[2016-05-25] MEDS: LORazepam 1 MG TAB PO PRN ×3 (10:21→23:12)
[2016-05-25 11:10] LABS: AUTOMATED NEUTROPHIL # 0.1 TH/MM3 (1.8-7.7); BASOPHIL % 0.1 % (0.0-2.0); EOSINOPHIL # 0.1 TH/MM3 (0-0.4); HEMATOCRIT 23.7 % (35.0-46.0); LYMPH % 85.8 % (9.0-44.0); LYMPHOCYTE # 2.2 TH/MM3 (1.0-4.8); MEAN CELL VOLUME 94.3 FL (80.0-100.0); MEAN CORPUSCULAR HEMOGLOBIN 32.8 PG (27.0-34.0); MEAN CORPUSCULAR HGB CONC 34.8 % (32.0-36.0); MONO % 7.6 % (0.0-8.0); NEUT % 4.5 % (16.0-70.0); PLATELET COUNT 61 TH/MM3 (150-450); RED BLOOD COUNT 2.51 MIL/MM3 (4.00-5.30); RED CELL DISTRIBUTION WIDTH 15.9 % (11.6-17.2); WHITE BLOOD COUNT 2.5 TH/MM3 (4.0-11.0)
[2016-05-25 11:15] LABS: HEMO FLAGS AUTO DIFF
--- NOTE | 2016-05-25 11:32 | PD.ONC.PN ---
Subjective Subjective Remarks Less pain from Huang placement. Neutropenic but no fever. Thrombocytopenic but no bleeding. Questions regarding treatment answered. Anxious about her diagnosis and the upcoming induction. Objective Data Date Time Temp Pulse Resp B/P Pulse Ox O2 Delivery O2 Flow Rate FiO2 05/25/16 07:45 96.5 76 20 105/99 99 05/25/16 04:00 97.9 89 16 113/58 98 05/25/16 04:00 20 05/25/16 00:00 97.0 66 16 124/64 99 05/24/16 20:03 20 05/24/16 20:00 97.5 70 18 117/61 97 05/25/16 05/25/16 05/25/16 07:00 15:00 23:00 Intake Total 720 ml 360 ml Balance 720 ml 360 ml Result Diagram: 05/25/16 0605 05/21/16 0734 Laboratory Results Laboratory Tests Test 05/25/16 06:05 White Blood Count 2.5 TH/MM3 Red Blood Count 2.51 MIL/MM3 Hemoglobin 8.2 GM/DL Hematocrit 23.7 % Mean Corpuscular Volume 94.3 FL Mean Corpuscular Hemoglobin 32.8 PG Mean Corpuscular Hemoglobin 34.8 % Concent Red Cell Distribution Width 15.9 % Platelet Count 61 TH/MM3 Mean Platelet Volume 8.2 FL Neutrophils (%) (Auto) 4.5 % Lymphocytes (%) (Auto) 85.8 % Monocytes (%) (Auto) 7.6 % Eosinophils (%) (Auto) 2.0 % Basophils (%) (Auto) 0.1 % Neutrophils # (Auto) 0.1 TH/MM3 Lymphocytes # (Auto) 2.2 TH/MM3 Monocytes # (Auto) 0.2 TH/MM3 Eosinophils # (Auto) 0.1 TH/MM3 Basophils # (Auto) 0.0 TH/MM3 CBC Comment AUTO DIFF Culture Results Microbiology Date/Time Procedure Status Source Growth 05/22/16 18:10 Urine Culture - Final Complete Urine Clean Catch Klebsiella Pneumoniae Administered Medications Medications (Trade) Dose Ordered Sig/Prashant Route PRN Reason Start Time Stop Time Status Last Admin Dose Admin Carisoprodol (Soma) 350 mg TID PRN PO PAIN 05/16/16 17:30 05/25/16 10:22 Furosemide (Lasix) 20 mg DAILY PO 05/17/16 09:00 05/25/16 08:25 Gabapentin (Neurontin) 300 mg TID PO 05/16/16 18:00 05/25/16 08:24 Levothyroxine Sodium (Synthroid) 25 mcg DAILY@06 PO 05/17/16 06:00 05/25/16 06:04 Potassium Chloride (KCl) 10 meq DAILY PO 05/17/16 09:00 05/25/16 08:25 Famotidine (Pepcid) 20 mg BID PO 05/16/16 21:00 05/25/16 08:25 IV Flush (NS Flush) 2 ml BID IV 05/16/16 21:00 05/24/16 20:17 Acetaminophen (Tylenol) 650 mg Q6HR PRN PO headache 05/17/16 06:30 05/23/16 20:12 Oxycodone/ Acetaminophen (Percocet 5-325 Mg) 1 tab Q4H PRN PO pain 1-5 05/20/16 10:00 05/25/16 08:25 Pantoprazole Sodium (Protonix) 40 mg DAILY PO 05/22/16 09:00 05/25/16 08:25 Oxycodone HCl 10 mg 10 mg Q4H PRN PO pain 6-10 05/21/16 16:00 05/25/16 06:04 Ceftriaxone Sodium/Sodium Chloride (Rocephin Inj/NS Inj) 100 ml @ 200 mls/hr Q24H IV 05/23/16 16:00 05/24/16 14:29 Heparin Sodium (Porcine) (Heparin Central Flush) DAILY IVF 05/24/16 09:00 05/25/16 08:35 Heparin Sodium (Porcine) (Heparin Central Flush) UNSCH PRN IVF SEE PROTOCOL 05/23/16 15:30 05/25/16 06:09 Docusate Sodium (Colace) 100 mg BID PO 05/24/16 11:00 05/25/16 08:25 Lorazepam (Ativan) 2 mg Q6H PRN PO anxiety 05/25/16 08:59 05/25/16 10:21 Objective Remarks GENERAL: Resting in bed in no distress. SKIN: Warm and dry. R chest wall huang in place. No bruising. Tenderness. HEAD: Normocephalic. EYES: No injection or drainage. NECK: Supple, trachea midline. CARDIOVASCULAR: +S1/S2. No murmur appreciated. RESPIRATORY: Breath sounds equal bilaterally. No accessory muscle use. GASTROINTESTINAL: Abdomen soft, non-tender. Able to palpate pain pump in RUQ. EXTREMITIES: No cyanosis, or edema. MUSCULOSKELETAL: Adequate muscle tone. NEUROLOGICAL: A&Ox3. Moving all extremities independently. Assessment/Plan Problem List: (1) Pancytopenia Status: Acute Plan: 05/25/16. Pancytopenia stable, due to dx AML cytogenetics and CSF cytology pending. No transfusion needed. BOOKER persist. 05/24/16: AML, pending cytogenetics, s/p LP to evaluate BOOKER r/o INSTALLATION COORDINATOR involvement. Supportive tx. Plan for induction on Thursday. No transfusion RBC or platelets needed. 05/23/16: Bone marrow results are back and confirm the diagnosis of acute myeloid leukemia. No monocytic component. 05/22/16: flow cytometry shows acute myeloid leukemia with monocytic component. awaiting bone marrow results 05/21/2016: Blood counts are stable. Bone marrow path pending. B12 pending. 05/20/16: counts remain stable. bone marrow biopsy completed today 05/19/16: Counts are stable, no transfusion needed. 05/18/16: No bleeding. Order placed for BMB with invasive radiology. -- We will transfuse for platelets less than 10k and a Hgb of less than 7. Hx: Pt had a hemorrhoidectomy three weeks ago and has had some rectal bleeding since that time. She presented to the ER on 05/16/16 with complaints of SOB and chest tightness and was found to be quite anemic with a Hgb of 5.8. She was transfused 2 units at that time. Hematology was consulted on 05/17/16 for pancytopenia. Pt had imaging done to r/o a lymphoproliferative process. A CT scan of the CAP was essentially negative for this. A bone marrow biopsy taken on 05/20/16 confirmed the pathology of acute myeloid leukemia. The monocytic component does not appear to comprise the required 20% of marrow cellularity for a diagnosis of acute myelomonocytic leukemia. (2) Rectal bleed Status: Resolved Plan: 05/25/16. No rectal bleeding but still no BM. Trial of Lactulose until BM. 05/24/16. No bleeding. Concern about constipation and exacerbating bleeding. Pt neutropenic so no suppository or Enema. Start stool softner and trial lactulose. State Miralax does not work for her. EGD/colonoscopy on 05/20/15 showed gastritis, irregular Z line and rectal nodule. Path report negative for malignancy. --GI following. -- Had hemorrhoid surgery three weeks ago with Dr. Schwartz. -- Controlled. No new bleeding. (3) AML (acute myeloid leukemia) Status: Acute Plan: Diagnosis by flow and bone marrow. Pending induction chemotherapy. Discussed 7+3, Daunorubicin (possible IDARUBICIN) and Cytarabine. Information on chemo drugs will be given. Discussed prognostic information from cytogenetics. CSF will determine if IT therapy needed. Assessment 61 y/o female with pancytopenia, suspected AML Plan 1. Monitor blood counts. 2. Pending CSF cytology and cytogenetics 3. Lactulose for constipation 4. Pending Dr. Lopez's staff to refill pt's pain pump as she will be hospitalized for at least a month. 5. Induction chemotherapy on Thursday. 6. Monitor for fevers Khadijah Paula MD May 25, 2016 11:31
[2016-05-25 11:56] LABS: BASOPHILS 1 % (0-2); EOSINOPHILS 2 % (0-4); NEUTROPHIL # MANUAL DIFF 0.1 TH/MM3 (1.8-7.7); POLYS (SEG NEUTROPHILS) 2 % (16-70); WBC DIFF SAMPLE 100
[2016-05-25 11:57] LABS: PLATELET ESTIMATE SMEAR LOW (NORMAL); PLATELET MORPHOLOGY NORMAL (NORMAL); SCAN/DIFF FINAL DIFF MANUAL
[2016-05-25] MEDS: LACTULOSE SYRUP 20 GM/30 ML CUP PO SCH ×3 (12:55→20:06)
[2016-05-25] MEDS ORDERED: LACTIC ACID (AMMONIUM LACTATE) 12% LOTION 225 GM BTL TOPICAL PRN (14:30)
--- NOTE | 2016-05-25 14:37 | HHI.PR ---
Subjective Remarks The patient was nervous about starting chemotherapy tomorrow. Her sister was at the bedside. Their questions were answered. The patient said that she felt an irritated sensation around her lips where she applies her lotion and was wondering if it was getting it worse. She still has not had a bowel movement that has been passing gas. She is still anxious and feels that Ativan is not helping. Discussed with nursing. Objective Vitals Vital Signs Date Time Temp Pulse Resp B/P Pulse Ox O2 Delivery O2 Flow Rate FiO2 05/25/16 07:45 96.5 76 20 105/99 99 05/25/16 04:00 97.9 89 16 113/58 98 05/25/16 04:00 20 05/25/16 00:00 97.0 66 16 124/64 99 05/24/16 20:03 20 05/24/16 20:00 97.5 70 18 117/61 97 I/O 05/24/16 05/24/16 05/24/16 05/25/16 05/25/16 05/25/16 07:00 15:00 23:00 07:00 15:00 23:00 Intake Total 720 ml 960 ml 960 ml 720 ml 360 ml Balance 720 ml 960 ml 960 ml 720 ml 360 ml Intake Oral 720 ml 960 ml 960 ml 720 ml 360 ml # Voids 2 3 3 4 1 # Bowel Movements 0 Result Diagram: 05/25/16 0605 05/21/16 0734 Imaging Last Impressions Lumbar Puncture Fluoroscopy 05/23/16 0000 Signed Impressions: Service Date/Time: Monday, May 23, 2016 14:16 - CONCLUSION: Uncomplicated fluoroscopically guided lumbar puncture. Bubba Cherry MD Catheter Placement X-Ray 05/23/16 0000 Signed Impressions: Service Date/Time: Monday, May 23, 2016 14:16 - CONCLUSION: Uncomplicated Donaldson catheter placement as above. Bubba Cherry MD Bone Biopsy CT 05/20/16 0846 Signed Impressions: Service Date/Time: Friday, May 20, 2016 09:13 - CONCLUSION: 1. Uncomplicated CT guided bone marrow aspirate. 2. Uncomplicated CT guided bone marrow biopsy. Yazan Saucedo MD Head CT 05/20/16 0000 Signed Impressions: Service Date/Time: Friday, May 20, 2016 15:16 - CONCLUSION: Normal examination for a patient of this age. No significant change has occurred. Emilio Thomas MD Chest CT 05/17/16 0000 Signed Impressions: Service Date/Time: Tuesday, May 17, 2016 15:14 - CONCLUSION: 1. 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 There are trace to very small bilateral pleural effusions and mild cardiomegaly noted. 2. No lobar consolidation. 3. Upper limits of normal to mildly enlarged mediastinal and bilateral hilar lymph nodes, nonspecific but presumably reactive. Bravo Mendez MD Abdomen/Pelvis CT 05/17/16 0000 Signed Impressions: Service Date/Time: Tuesday, May 17, 2016 15:18 - CONCLUSION: 1. Heterogeneous liver, nonspecific but possibly fatty infiltration, hepatocellular disease or a combination of the two. Nothing focal. 2. Nonspecific distention of the gallbladder. No stone, perceptible inflammatory changes or ductal dilatation demonstrated. 3. No obstruction, inflammatory changes or perceptible mass of the GI tract. Bravo Mendez MD Chest X-Ray 05/16/16 0000 Signed Impressions: Service Date/Time: Monday, May 16, 2016 19:23 - CONCLUSION: No acute disease. Minimal interstitial densities likely chronic. Kilo Cotto MD Objective Remarks GENERAL: This is a well-nourished, well-developed patient, in no apparent distress. HEENT: Tenderness to palpation around frontal cranium. CARDIOVASCULAR: Regular rate and rhythm without murmurs, gallops, or rubs. RESPIRATORY: Clear to auscultation. Breath sounds equal bilaterally. No wheezes , rales, or rhonchi. GASTROINTESTINAL: Abdomen soft, non-tender, nondistended. Decreased bowel sounds. MUSCULOSKELETAL: Extremities without clubbing, cyanosis, or edema. NEURO: Alert & Oriented x4 to person, place, time, situation. Moves all ext x4. Normal finger to nose test. EOMI. PSYCH: Anxious. Procedures EGD/ colonoscopy Bone marrow biopsy Medications and IVs Current Medications Medications (Trade) Dose Ordered Sig/Prashant Route Start Time Stop Time Status Last Admin (Soma) 350 mg TID PRN PO 05/16/16 17:30 05/25/16 10:22 (Lasix) 20 mg DAILY PO 05/17/16 09:00 05/25/16 08:25 (Neurontin) 300 mg TID PO 05/16/16 18:00 05/25/16 12:55 (Synthroid) 25 mcg DAILY@06 PO 05/17/16 06:00 05/25/16 06:04 (KCl) 10 meq DAILY PO 05/17/16 09:00 05/25/16 08:25 (Pepcid) 20 mg BID PO 05/16/16 21:00 05/25/16 08:25 (NS Flush) 2 ml UNSCH PRN IV 05/16/16 17:45 (NS Flush) 2 ml BID IV 05/16/16 21:00 05/24/16 20:17 (Zofran Inj) 4 mg Q6H PRN IV 05/16/16 17:45 Acetaminophen 650 mg 650 mg Q6HR PRN PO 05/17/16 06:30 05/23/16 20:12 (Lr 1000 ml Inj) 1,000 ml @ 30 mls/hr Q24H IV 05/20/16 01:15 (Percocet 5-325 Mg) 1 tab Q4H PRN PO 05/20/16 10:00 05/25/16 08:25 (Canasa Supp) 1,000 mg HS RECTAL 05/20/16 21:00 Hold (Protonix) 40 mg DAILY PO 05/22/16 09:00 05/25/16 08:25 Oxycodone HCl 10 mg 10 mg Q4H PRN PO 05/21/16 16:00 05/25/16 12:55 (Rocephin Inj/NS Inj) 100 ml @ 200 mls/hr Q24H IV 05/23/16 16:00 05/24/16 14:29 (NS Flush) DAILY IVF 05/24/16 09:00 (Heparin Central Flush) DAILY IVF 05/24/16 09:00 05/25/16 08:35 (NS Flush) UNSCH PRN IVF 05/23/16 15:30 (Heparin Central Flush) UNSCH PRN IVF 05/23/16 15:30 05/25/16 06:09 (Colace) 100 mg BID PO 05/24/16 11:00 05/25/16 08:25 (Ativan) 2 mg Q6H PRN PO 05/25/16 08:59 05/25/16 10:21 (Lactulose Liq) 30 ml QID PO 05/25/16 13:00 05/25/16 21:01 05/25/16 12:55 A/P Problem List: (1) Pancytopenia ICD Code: D61.818 Status: Acute (2) GI bleed ICD Code: K92.2 Status: Acute Assessment and Plan 61-year-old female with recent hemorrhoidectomy 3 weeks ago presented with severe symptomatic anemia, thrombocytopenia, and leukopenia. AML Bone marrow biopsy revealed AML. Oncology consult appreciated. - chemotherapy planning per oncology. Port placement 05/23. Induction chemo planned for 05/26. - Follow-up CBC and transfuse as needed. - neutropenic precautions. Symptomatic anemia and GI bleeding Recent hemorrhoidectomy 3 weeks ago. Patient denies any active bleeding since the procedure. Hemoccult in the emergency room was positive. Appreciate GI following. S/p EGD/colonoscopy 05/20 which revealed gastritis and a rectal ulcer. - Continue Protonix. Monitor for bleeding. - Follow CBC and transfuse as needed. Headache New in onset, constant over the past few days. Pt also notes difficulty reading s/t blurry vision over the past few days. CT brain negative for an acute process. Fioricet did not help. S/p LP per oncology. - pain control as needed. - consider MRI. Chronic back pain Stable. Patient has a Dilaudid/fentanyl pump implanted on the right lower quadrant of her abdomen. - Soma 3 times a day per the patient's home dose. - pain control as needed. Anxiety The pt has been on Valium for many years but is reporting breakthrough anxiety. - d/c Valium and start Ativan as needed. Increase Ativan dose 05/25. Constipation Pt still without bowel movement. - increase bowel regimen 05/25. GI prophylaxis: Protonix/ ranitidine. DVT PPx: SCDs. Chemoprophylaxis contraindicated. Discharge Planning Awaiting clinical improvement. Problem Qualifiers (1) GI bleed: Qualified Code: K92.2 - Gastrointestinal hemorrhage, unspecified gastrointestinal hemorrhage type Gustavo Meija DO May 25, 2016 14:37
[2016-05-25 15:01] VITALS: BP 95/54; PULSE 86; RESP 20; TEMP 98.1; O2SAT 98
[2016-05-25] MEDS: POLYETHYLENE GLYCOL 17 GM PKG PO SCH (15:44)
[2016-05-25] MEDS: cefTRIAXone INJ 1,000 MG in SODIUM CHLORIDE 0.9% INJ 100 ML IV SCH (15:45)
[2016-05-25 16:00] VITALS: BP 128/78; PULSE 80; RESP 20; TEMP 96.8; O2SAT 94
[2016-05-25] MEDS ORDERED: SUMAtriptan SUCCINATE 25 MG TAB PO ONE (19:45)
[2016-05-25 20:00] VITALS: BP 107/58; PULSE 74; RESP 16; TEMP 97.4; O2SAT 98
[2016-05-26] VITALS: BP 114/59; PULSE 69; RESP 16; TEMP 97.9; O2SAT 97
[2016-05-26 04:00] VITALS: BP 96/53; PULSE 74; RESP 18; TEMP 98; O2SAT 97
[2016-05-26] MEDS: LEVOTHYROXINE SODIUM 25 MCG TAB PO SCH (05:51)
[2016-05-26] MEDS: LORazepam 1 MG TAB PO PRN ×3 (05:52→22:30)
[2016-05-26 07:15] LABS: AUTOMATED NEUTROPHIL # 0.1 TH/MM3 (1.8-7.7); BASOPHIL % 0.1 % (0.0-2.0); EOSINOPHIL # 0.1 TH/MM3 (0-0.4); EOSINOPHIL % 2.3 % (0.0-4.0); HEMATOCRIT 25.4 % (35.0-46.0); LYMPHOCYTE # 2.6 TH/MM3 (1.0-4.8); MEAN CELL VOLUME 93.7 FL (80.0-100.0); MEAN CORPUSCULAR HEMOGLOBIN 32.5 PG (27.0-34.0); MEAN CORPUSCULAR HGB CONC 34.7 % (32.0-36.0); MONO % 8.1 % (0.0-8.0); NEUT % 4.5 % (16.0-70.0); PLATELET COUNT 67 TH/MM3 (150-450); RED BLOOD COUNT 2.71 MIL/MM3 (4.00-5.30); RED CELL DISTRIBUTION WIDTH 15.6 % (11.6-17.2); WHITE BLOOD COUNT 3.1 TH/MM3 (4.0-11.0)
[2016-05-26 07:27] LABS: HEMO FLAGS AUTO DIFF
[2016-05-26 07:43] LABS: BICARBONATE 26.7 MEQ/L (21.0-32.0); MAGNESIUM 2.4 MG/DL (1.5-2.5); POTASSIUM 4.1 MEQ/L (3.5-5.1)
[2016-05-26 08:00] VITALS: BP 109/62; PULSE 86; RESP 20; TEMP 97.9; O2SAT 96
[2016-05-26] MEDS: SODIUM CHLORIDE 0.9% FLUSH 5 ML FLUSH IV SCH ×2 (08:17→20:47)
[2016-05-26] MEDS: SODIUM CHLORIDE 0.9% FLUSH 5 ML FLUSH IVF SCH (08:18)
[2016-05-26] MEDS: POTASSIUM CHLORIDE 10 MEQ CAP PO SCH (08:19)
[2016-05-26] MEDS: PANTOPRAZOLE SOD 40 MG DELAYED RELEASE TAB PO SCH (08:19)
[2016-05-26] MEDS: GABAPENTIN 300 MG CAP PO SCH ×3 (08:19→18:41)
[2016-05-26] MEDS: FAMOTIDINE 20 MG TAB PO SCH ×2 (08:19→20:47)
[2016-05-26] MEDS: DOCUSATE SODIUM 100 MG CAP PO SCH ×2 (08:20→20:47)
[2016-05-26] MEDS: FUROSEMIDE 20 MG TAB PO SCH (08:20)
[2016-05-26] MEDS: POLYETHYLENE GLYCOL 17 GM PKG PO SCH (08:20)
--- NOTE | 2016-05-26 09:32 | PD.ONC.PN ---
Subjective Subjective Remarks Afebrile overnight. Patient states her nerves are calmed after talking with Dr. Tripp about starting induction chemotherapy. Her pain is well-controlled. Her appetite is fair. No other complaints. Objective Data Date Time Temp Pulse Resp B/P Pulse Ox O2 Delivery O2 Flow Rate FiO2 05/26/16 08:00 97.9 86 20 109/62 96 05/26/16 04:00 98.0 74 18 96/53 97 05/26/16 00:00 97.9 69 16 114/59 97 05/25/16 20:00 97.4 74 16 107/58 98 05/25/16 16:00 96.8 80 20 128/78 94 05/25/16 15:01 98.1 86 20 95/54 98 05/26/16 05/26/16 05/26/16 07:00 15:00 23:00 Intake Total 720 ml Balance 720 ml Result Diagram: 05/26/16 0634 05/26/16 0631 Laboratory Results Laboratory Tests Test 05/26/16 05/26/16 06:31 06:34 Sodium Level 141 MEQ/L Potassium Level 4.1 MEQ/L Chloride Level 108 MEQ/L Carbon Dioxide Level 26.7 MEQ/L Anion Gap 6 MEQ/L Blood Urea Nitrogen 13 MG/DL Creatinine 0.72 MG/DL Estimat Glomerular Filtration 83 ML/MIN Rate Random Glucose 87 MG/DL Calcium Level 8.8 MG/DL Magnesium Level 2.4 MG/DL White Blood Count 3.1 TH/MM3 Red Blood Count 2.71 MIL/MM3 Hemoglobin 8.8 GM/DL Hematocrit 25.4 % Mean Corpuscular Volume 93.7 FL Mean Corpuscular Hemoglobin 32.5 PG Mean Corpuscular Hemoglobin 34.7 % Concent Red Cell Distribution Width 15.6 % Platelet Count 67 TH/MM3 Mean Platelet Volume 7.7 FL Neutrophils (%) (Auto) 4.5 % Lymphocytes (%) (Auto) 85.0 % Monocytes (%) (Auto) 8.1 % Eosinophils (%) (Auto) 2.3 % Basophils (%) (Auto) 0.1 % Neutrophils # (Auto) 0.1 TH/MM3 Lymphocytes # (Auto) 2.6 TH/MM3 Monocytes # (Auto) 0.3 TH/MM3 Eosinophils # (Auto) 0.1 TH/MM3 Basophils # (Auto) 0.0 TH/MM3 CBC Comment AUTO DIFF Administered Medications Medications (Trade) Dose Ordered Sig/Prashant Route PRN Reason Start Time Stop Time Status Last Admin Dose Admin Carisoprodol (Soma) 350 mg TID PRN PO PAIN 05/16/16 17:30 05/25/16 23:12 Furosemide (Lasix) 20 mg DAILY PO 05/17/16 09:00 05/26/16 08:20 Gabapentin (Neurontin) 300 mg TID PO 05/16/16 18:00 05/26/16 08:19 Levothyroxine Sodium (Synthroid) 25 mcg DAILY@06 PO 05/17/16 06:00 05/26/16 05:51 Potassium Chloride (KCl) 10 meq DAILY PO 05/17/16 09:00 05/26/16 08:19 Famotidine (Pepcid) 20 mg BID PO 05/16/16 21:00 05/26/16 08:19 IV Flush (NS Flush) 2 ml BID IV 05/16/16 21:00 05/26/16 08:17 Acetaminophen (Tylenol) 650 mg Q6HR PRN PO headache 05/17/16 06:30 05/23/16 20:12 Oxycodone/ Acetaminophen (Percocet 5-325 Mg) 1 tab Q4H PRN PO pain 1-5 05/20/16 10:00 05/25/16 15:44 Pantoprazole Sodium (Protonix) 40 mg DAILY PO 05/22/16 09:00 05/26/16 08:19 Oxycodone HCl 10 mg 10 mg Q4H PRN PO pain 6-10 05/21/16 16:00 05/26/16 05:51 Ceftriaxone Sodium/Sodium Chloride (Rocephin Inj/NS Inj) 100 ml @ 200 mls/hr Q24H IV 05/23/16 16:00 05/25/16 15:45 IV Flush (NS Flush) DAILY IVF 05/24/16 09:00 05/26/16 08:18 Heparin Sodium (Porcine) (Heparin Central Flush) DAILY IVF 05/24/16 09:00 05/26/16 08:18 Heparin Sodium (Porcine) (Heparin Central Flush) UNSCH PRN IVF SEE PROTOCOL 05/23/16 15:30 05/25/16 06:09 Docusate Sodium (Colace) 100 mg BID PO 05/24/16 11:00 05/25/16 20:06 Lorazepam (Ativan) 2 mg Q6H PRN PO anxiety 05/25/16 08:59 05/26/16 05:52 Polyethylene Glycol (Miralax) 17 gm DAILY PO 05/25/16 14:30 05/25/16 15:44 Objective Remarks GENERAL: Middle aged female, sitting up in bed in no distress. SKIN: Warm and dry. Minimal oozing noted from Donaldson catheter. HEAD: Normocephalic. EYES: No injection or drainage. NECK: Supple, trachea midline. CARDIOVASCULAR: +S1/S2. No murmur appreciated. RESPIRATORY: Lungs clear throughout. Breathing easy and unlabored. GASTROINTESTINAL: Abdomen soft, non-tender, nondistended. EXTREMITIES: No cyanosis, or edema. NEUROLOGICAL: A&Ox3. No obvious focal deficit. Assessment/Plan Problem List: (1) AML (acute myeloid leukemia) Status: Acute Plan: 05/26/16: Day one Induction chemotherapy. Pt is slated to begin induction chemotherapy with Idarubicin and Albina-C. We will order IV fluids as well as Allopurinol to help prevent possible tumor lysis syndrome. Diagnosis by flow and bone marrow. Pending induction chemotherapy. Discussed 7+3, Daunorubicin (possible IDARUBICIN) and Cytarabine. Information on chemo drugs will be given. Discussed prognostic information from cytogenetics. CSF will determine if IT therapy needed. (2) Pancytopenia Status: Acute Plan: 05/26/16: Blood counts stable. Will monitor throughout induction chemotherapy. 05/25/16. Pancytopenia stable, due to dx AML cytogenetics and CSF cytology pending. No transfusion needed. BOOKER persist. 05/24/16: AML, pending cytogenetics, s/p LP to evaluate BOOKER r/o TRIAGE RN involvement. Supportive tx. Plan for induction on Thursday. No transfusion RBC or platelets needed. 05/23/16: Bone marrow results are back and confirm the diagnosis of acute myeloid leukemia. No monocytic component. 05/22/16: flow cytometry shows acute myeloid leukemia with monocytic component. awaiting bone marrow results 05/21/2016: Blood counts are stable. Bone marrow path pending. B12 pending. 05/20/16: counts remain stable. bone marrow biopsy completed today 05/19/16: Counts are stable, no transfusion needed. 05/18/16: No bleeding. Order placed for BMB with invasive radiology. -- We will transfuse for platelets less than 10k and a Hgb of less than 7. Hx: Pt had a hemorrhoidectomy three weeks ago and has had some rectal bleeding since that time. She presented to the ER on 05/16/16 with complaints of SOB and chest tightness and was found to be quite anemic with a Hgb of 5.8. She was transfused 2 units at that time. Hematology was consulted on 05/17/16 for pancytopenia. Pt had imaging done to r/o a lymphoproliferative process. A CT scan of the CAP was essentially negative for this. A bone marrow biopsy taken on 05/20/16 confirmed the pathology of acute myeloid leukemia. The monocytic component does not appear to comprise the required 20% of marrow cellularity for a diagnosis of acute myelomonocytic leukemia. (3) Rectal bleed Status: Resolved Plan: 05/26/16: No bleeding. Had 2 BM's yesterday. Will change lactulose to as needed. 05/25/16. No rectal bleeding but still no BM. Trial of Lactulose until BM. 05/24/16. No bleeding. Concern about constipation and exacerbating bleeding. Pt neutropenic so no suppository or Enema. Start stool softner and trial lactulose. State Miralax does not work for her. EGD/colonoscopy on 05/20/15 showed gastritis, irregular Z line and rectal nodule. Path report negative for malignancy. --GI following. -- Had hemorrhoid surgery three weeks ago with Dr. Schwartz. -- Controlled. No new bleeding. Assessment 61 y/o female with pancytopenia, suspected AML Plan 1. Begin induction chemotherapy today with Idarubicin and Albina C. 2. Pending CSF cytology and cytogenetics 3. Monitor for fevers, blood counts. 4. Pending Dr. Lopez's staff to refill pt's pain pump as she will be hospitalized for at least a month. 5. Supportive care. Attending Statement The exam, history, and the medical decision-making described in the above note were completed with the assistance of the mid-level provider. I reviewed and agree with the findings presented. I attest that I had a [id number] encounter with the patient on the same day, and personally performed and documented my assessment and findings in the medical record. She is a little anxious about starting induction chemotherapy. I had a lengthy discussion with her and her sister on the phone. We discussed the potential side effect and complication again including . We also discussed post remission consolidation treatment pending the cytogenetic/FISH study. She wants to be aggressive with treatment and agrees to start induction chemotherapy today. CSF flow did not show leukemic cells. She still has mild headache. Marissa Juarez May 26, 2016 09:31 Ryan Tripp MD May 26, 2016 15:51
[2016-05-26 09:44] LABS: BANDS 2 % (0-6); EOSINOPHILS 3 % (0-4); NEUTROPHIL # MANUAL DIFF 0.2 TH/MM3 (1.8-7.7); PLATELET ESTIMATE SMEAR LOW (NORMAL); POLYS (SEG NEUTROPHILS) 4 % (16-70); WBC DIFF SAMPLE 100
[2016-05-26 09:45] LABS: PLATELET MORPHOLOGY NORMAL (NORMAL); SCAN/DIFF FINAL DIFF MANUAL
[2016-05-26] MEDS: ALLOPURINOL 300 MG TAB PO SCH (10:13)
[2016-05-26] MEDS: SODIUM CHLOR 0.9% 1000 ML INJ 1,000 ML IV SCH ×3 (10:14→20:47)
--- NOTE | 2016-05-26 10:21 | HHI.PR ---
Subjective Remarks The patient said she was anxious but ready to start chemotherapy. She said that she was given a change rooms later today. She did have a bowel movement. She says she still has a headache. She says she was putting her affairs in order. Discussed with nursing. Objective Vitals Vital Signs Date Time Temp Pulse Resp B/P Pulse Ox O2 Delivery O2 Flow Rate FiO2 05/26/16 08:00 97.9 86 20 109/62 96 05/26/16 04:00 98.0 74 18 96/53 97 05/26/16 00:00 97.9 69 16 114/59 97 05/25/16 20:00 97.4 74 16 107/58 98 05/25/16 16:00 96.8 80 20 128/78 94 05/25/16 15:01 98.1 86 20 95/54 98 I/O 05/25/16 05/25/16 05/25/16 05/26/16 05/26/16 05/26/16 07:00 15:00 23:00 07:00 15:00 23:00 Intake Total 720 ml 840 ml 960 ml 720 ml Balance 720 ml 840 ml 960 ml 720 ml Intake Oral 720 ml 840 ml 960 ml 720 ml # Voids 4 3 3 4 # Bowel Movements 2 Result Diagram: 05/26/16 0634 05/26/16 0631 Imaging Last Impressions Lumbar Puncture Fluoroscopy 05/23/16 0000 Signed Impressions: Service Date/Time: Monday, May 23, 2016 14:16 - CONCLUSION: Uncomplicated fluoroscopically guided lumbar puncture. Bubba Cherry MD Catheter Placement X-Ray 05/23/16 0000 Signed Impressions: Service Date/Time: Monday, May 23, 2016 14:16 - CONCLUSION: Uncomplicated Donaldson catheter placement as above. Bubba Cherry MD Bone Biopsy CT 05/20/16 0846 Signed Impressions: Service Date/Time: Friday, May 20, 2016 09:13 - CONCLUSION: 1. Uncomplicated CT guided bone marrow aspirate. 2. Uncomplicated CT guided bone marrow biopsy. Yazan Saucedo MD Head CT 05/20/16 0000 Signed Impressions: Service Date/Time: Friday, May 20, 2016 15:16 - CONCLUSION: Normal examination for a patient of this age. No significant change has occurred. Emilio Thomas MD Chest CT 05/17/16 0000 Signed Impressions: Service Date/Time: Tuesday, May 17, 2016 15:14 - CONCLUSION: 1. 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 There are trace to very small bilateral pleural effusions and mild cardiomegaly noted. 2. No lobar consolidation. 3. Upper limits of normal to mildly enlarged mediastinal and bilateral hilar lymph nodes, nonspecific but presumably reactive. Bravo Mnedez MD Abdomen/Pelvis CT 05/17/16 0000 Signed Impressions: Service Date/Time: Tuesday, May 17, 2016 15:18 - CONCLUSION: 1. Heterogeneous liver, nonspecific but possibly fatty infiltration, hepatocellular disease or a combination of the two. Nothing focal. 2. Nonspecific distention of the gallbladder. No stone, perceptible inflammatory changes or ductal dilatation demonstrated. 3. No obstruction, inflammatory changes or perceptible mass of the GI tract. Bravo Mendez MD Chest X-Ray 05/16/16 0000 Signed Impressions: Service Date/Time: Monday, May 16, 2016 19:23 - CONCLUSION: No acute disease. Minimal interstitial densities likely chronic. Kilo Cotto MD Objective Remarks GENERAL: This is a well-nourished, well-developed patient, in no apparent distress. HEENT: Tenderness to palpation around the cranium. CARDIOVASCULAR: Regular rate and rhythm. Grade 2 systolic murmur appreciated. RESPIRATORY: Clear to auscultation. Breath sounds equal bilaterally. No wheezes , rales, or rhonchi. GASTROINTESTINAL: Abdomen soft, non-tender, nondistended. Decreased bowel sounds. MUSCULOSKELETAL: Extremities without clubbing, cyanosis, or edema. NEURO: Alert & Oriented x4 to person, place, time, situation. Moves all ext x4. Normal finger to nose test. EOMI. PSYCH: Anxious. Procedures EGD/ colonoscopy Bone marrow biopsy Medications and IVs Current Medications Medications (Trade) Dose Ordered Sig/Prashant Route Start Time Stop Time Status Last Admin (Soma) 350 mg TID PRN PO 05/16/16 17:30 05/25/16 23:12 (Lasix) 20 mg DAILY PO 05/17/16 09:00 05/26/16 08:20 (Neurontin) 300 mg TID PO 05/16/16 18:00 05/26/16 08:19 (Synthroid) 25 mcg DAILY@06 PO 05/17/16 06:00 05/26/16 05:51 (KCl) 10 meq DAILY PO 05/17/16 09:00 05/26/16 08:19 (Pepcid) 20 mg BID PO 05/16/16 21:00 05/26/16 08:19 (NS Flush) 2 ml UNSCH PRN IV 05/16/16 17:45 (NS Flush) 2 ml BID IV 05/16/16 21:00 05/26/16 08:17 (Zofran Inj) 4 mg Q6H PRN IV 05/16/16 17:45 Acetaminophen 650 mg 650 mg Q6HR PRN PO 05/17/16 06:30 05/23/16 20:12 (Lr 1000 ml Inj) 1,000 ml @ 30 mls/hr Q24H IV 05/20/16 01:15 (Percocet 5-325 Mg) 1 tab Q4H PRN PO 05/20/16 10:00 05/25/16 15:44 (Canasa Supp) 1,000 mg HS RECTAL 05/20/16 21:00 Hold (Protonix) 40 mg DAILY PO 05/22/16 09:00 05/26/16 08:19 Oxycodone HCl 10 mg 10 mg Q4H PRN PO 05/21/16 16:00 05/26/16 05:51 (Rocephin Inj/NS Inj) 100 ml @ 200 mls/hr Q24H IV 05/23/16 16:00 05/25/16 15:45 (NS Flush) DAILY IVF 05/24/16 09:00 05/26/16 08:18 (Heparin Central Flush) DAILY IVF 05/24/16 09:00 05/26/16 08:18 (NS Flush) UNSCH PRN IVF 05/23/16 15:30 (Heparin Central Flush) UNSCH PRN IVF 05/23/16 15:30 05/25/16 06:09 (Colace) 100 mg BID PO 05/24/16 11:00 05/25/16 20:06 (Ativan) 2 mg Q6H PRN PO 05/25/16 08:59 05/26/16 05:52 (Miralax) 17 gm DAILY PO 05/25/16 14:30 05/25/16 15:44 Lactic Acid 1 applic 1 applic BID PRN TOPICAL 05/25/16 14:30 (NS 1000 ml Inj) 1,000 ml @ 100 mls/hr Q10H IV 05/26/16 09:30 (Zyloprim) 300 mg DAILY PO 05/26/16 09:30 A/P Problem List: (1) Pancytopenia ICD Code: D61.818 Status: Acute (2) GI bleed ICD Code: K92.2 Status: Acute Assessment and Plan 61-year-old female with recent hemorrhoidectomy 3 weeks ago presented with severe symptomatic anemia, thrombocytopenia, and leukopenia. AML Bone marrow biopsy revealed AML. Oncology consult appreciated. - chemotherapy planning per oncology. Port placement 05/23. Induction chemo planned to start today. On IVFs and allopurinol to help prevent tumor lysis syndrome. - Follow-up CBC and transfuse as needed. - neutropenic precautions. Symptomatic anemia and GI bleeding Recent hemorrhoidectomy 3 weeks ago. Patient denies any active bleeding since the procedure. Hemoccult in the emergency room was positive. Appreciate GI following. S/p EGD/colonoscopy 05/20 which revealed gastritis and a rectal ulcer. - Continue Protonix. Monitor for bleeding. - Follow CBC and transfuse as needed. Stable 05/26. Headache New in onset, constant over the past few days. Pt also notes difficulty reading s/t blurry vision over the past few days. CT brain negative for an acute process. Fioricet did not help. S/p LP per oncology. - pain control as needed. - consider MRI. Chronic back pain Stable. Patient has a Dilaudid/fentanyl pump implanted on the right lower quadrant of her abdomen. - continue home meds. - pain control as needed for breakthrough. Anxiety The pt has been on Valium for many years but is reporting breakthrough anxiety. - d/c Valium and start Ativan as needed. Increase Ativan dose 05/25. Constipation Resolved 05/26. - continue bowel regimen. GI prophylaxis: Protonix/ ranitidine. DVT PPx: SCDs. Chemoprophylaxis contraindicated. Discharge Planning Awaiting clinical improvement. Problem Qualifiers (1) GI bleed: Qualified Code: K92.2 - Gastrointestinal hemorrhage, unspecified gastrointestinal hemorrhage type Gustavo Mejia DO May 26, 2016 10:21
[2016-05-26] MEDS ORDERED: MORPHINE SULFATE 4 MG/ML INJ IV PUSH ONE (10:30)
[2016-05-26 12:00] VITALS: BP 97/51; PULSE 100; RESP 20; TEMP 96.7; O2SAT 97
[2016-05-26] MEDS: cefTRIAXone INJ 1,000 MG in SODIUM CHLORIDE 0.9% INJ 100 ML IV SCH (15:18)
[2016-05-26] MEDS ORDERED: GRANISETRON INJ 1 MG, DEXAMETHASONE INJ 20 MG in SODIUM CHLORIDE 0.9% INJ 50 ML IV SCH (15:30)
[2016-05-26 16:00] VITALS: BP 123/68; PULSE 96; RESP 16; TEMP 97.2; O2SAT 97
[2016-05-26] MEDS ORDERED: SODIUM CHLORIDE 0.9% IV SCH (16:00)
[2016-05-26] MEDS ORDERED: IDARUBICIN IV SCH (16:00)
[2016-05-26] MEDS ORDERED: SODIUM CHLORID 0.9% IV SCH (17:00)
[2016-05-26] MEDS ORDERED: CYTARABINE IV SCH (17:00)
[2016-05-26 20:00] VITALS: BP 118/54; PULSE 88; RESP 16; TEMP 98.1; O2SAT 97
[2016-05-27] VITALS: BP 113/54; PULSE 75; RESP 16; TEMP 98.4; O2SAT 95
[2016-05-27] MEDS: LACTATED RINGER'S 1000 ML IV SCH (00:46)
[2016-05-27] MEDS: CARISOPRODOL 350 MG TAB PO PRN ×2 (01:37→09:17)
[2016-05-27 05:00] VITALS: BP 104/52; PULSE 85; RESP 16; TEMP 98; O2SAT 95
[2016-05-27] MEDS: SODIUM CHLOR 0.9% 1000 ML INJ 1,000 ML IV SCH ×2 (05:33→15:30)
[2016-05-27] MEDS: LEVOTHYROXINE SODIUM 25 MCG TAB PO SCH (05:33)
[2016-05-27 06:05] LABS: HEMATOCRIT 21.7 % (35.0-46.0); MEAN CELL VOLUME 94.4 FL (80.0-100.0); MEAN CORPUSCULAR HEMOGLOBIN 32.7 PG (27.0-34.0); MEAN CORPUSCULAR HGB CONC 34.7 % (32.0-36.0); PLATELET COUNT 60 TH/MM3 (150-450); RED CELL DISTRIBUTION WIDTH 15.5 % (11.6-17.2); WHITE BLOOD COUNT 2.7 TH/MM3 (4.0-11.0)
[2016-05-27 06:07] LABS: HEMO FLAGS AUTO DIFF
[2016-05-27 06:31] LABS: BICARBONATE 26.6 MEQ/L (21.0-32.0); MAGNESIUM 2.2 MG/DL (1.5-2.5); URIC ACID 3.5 MG/DL (2.6-6.0)
[2016-05-27] MEDS: LORazepam 1 MG TAB PO PRN (07:35)
[2016-05-27] MEDS: POLYETHYLENE GLYCOL 17 GM PKG PO SCH ×2 (07:35→09:00)
[2016-05-27] MEDS: GABAPENTIN 300 MG CAP PO SCH ×3 (07:35→19:14)
[2016-05-27] MEDS: POTASSIUM CHLORIDE 10 MEQ CAP PO SCH (07:36)
[2016-05-27] MEDS: FAMOTIDINE 20 MG TAB PO SCH ×2 (07:36→20:56)
[2016-05-27] MEDS: ALLOPURINOL 300 MG TAB PO SCH (07:36)
[2016-05-27] MEDS: DOCUSATE SODIUM 100 MG CAP PO SCH ×2 (07:36→20:56)
[2016-05-27] MEDS: PANTOPRAZOLE SOD 40 MG DELAYED RELEASE TAB PO SCH (07:36)
[2016-05-27 08:00] VITALS: BP 117/57; PULSE 83; RESP 16; TEMP 96.5; O2SAT 95
[2016-05-27] MEDS: SODIUM CHLORIDE 0.9% FLUSH 5 ML FLUSH IV SCH ×2 (09:00→20:57)
--- NOTE | 2016-05-27 09:17 | HHI.PR ---
Subjective Remarks Follow-up anemia, GI bleed, AML. Starting chemotherapy today. Still having low back pain (chronic, 09/24). Also with head/neck pain, 10/25. Objective Vitals Vital Signs Date Time Temp Pulse Resp B/P Pulse Ox O2 Delivery O2 Flow Rate FiO2 05/27/16 08:00 96.5 83 16 117/57 95 05/27/16 05:00 98.0 85 16 104/52 95 05/27/16 00:00 98.4 75 16 113/54 95 05/26/16 20:00 98.1 88 16 118/54 97 05/26/16 16:00 97.2 96 16 123/68 97 05/26/16 12:00 96.7 100 20 97/51 97 I/O 05/26/16 05/26/16 05/26/16 05/27/16 05/27/16 05/27/16 07:00 15:00 23:00 07:00 15:00 23:00 Intake Total 720 ml 823 ml 880 ml 480 ml Balance 720 ml 823 ml 880 ml 480 ml Intake Oral 720 ml 360 ml 480 ml 480 ml IV Total 463 ml 400 ml # Voids 4 7 2 1 # Bowel Movements 3 Result Diagram: 05/27/16 0530 05/27/16 0530 Imaging Last Impressions Lumbar Puncture Fluoroscopy 05/23/16 0000 Signed Impressions: Service Date/Time: Monday, May 23, 2016 14:16 - CONCLUSION: Uncomplicated fluoroscopically guided lumbar puncture. Bubba Cherry MD Catheter Placement X-Ray 05/23/16 0000 Signed Impressions: Service Date/Time: Monday, May 23, 2016 14:16 - CONCLUSION: Uncomplicated Donaldson catheter placement as above. Bubba Cherry MD Bone Biopsy CT 05/20/16 0846 Signed Impressions: Service Date/Time: Friday, May 20, 2016 09:13 - CONCLUSION: 1. Uncomplicated CT guided bone marrow aspirate. 2. Uncomplicated CT guided bone marrow biopsy. Yazan Saucedo MD Head CT 05/20/16 0000 Signed Impressions: Service Date/Time: Friday, May 20, 2016 15:16 - CONCLUSION: Normal examination for a patient of this age. No significant change has occurred. Emilio Thomas MD Chest CT 05/17/16 0000 Signed Impressions: Service Date/Time: Tuesday, May 17, 2016 15:14 - CONCLUSION: 1. 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 There are trace to very small bilateral pleural effusions and mild cardiomegaly noted. 2. No lobar consolidation. 3. Upper limits of normal to mildly enlarged mediastinal and bilateral hilar lymph nodes, nonspecific but presumably reactive. Bravo Mendez MD Abdomen/Pelvis CT 05/17/16 0000 Signed Impressions: Service Date/Time: Tuesday, May 17, 2016 15:18 - CONCLUSION: 1. Heterogeneous liver, nonspecific but possibly fatty infiltration, hepatocellular disease or a combination of the two. Nothing focal. 2. Nonspecific distention of the gallbladder. No stone, perceptible inflammatory changes or ductal dilatation demonstrated. 3. No obstruction, inflammatory changes or perceptible mass of the GI tract. Bravo Mendez MD Chest X-Ray 05/16/16 0000 Signed Impressions: Service Date/Time: Monday, May 16, 2016 19:23 - CONCLUSION: No acute disease. Minimal interstitial densities likely chronic. Kilo Cotto MD Objective Remarks General: No acute distress. Heart: Regular rate and rhythm. No murmur. Lungs: Clear to auscultation bilaterally. No wheezes, rales, or rhonchi. Breathing is nonlabored. Abdomen: Soft, nontender, nondistended. Extremities: No lower extremity edema. Psych: Alert and oriented. Procedures EGD/ colonoscopy Bone marrow biopsy Urinary Catheter: No Vascular Central Line Catheter: No A/P Problem List: (1) Pancytopenia ICD Code: D61.818 Status: Acute (2) GI bleed ICD Code: K92.2 Status: Acute (3) AML (acute myeloid leukemia) ICD Code: C92.00 Status: Acute (4) Symptomatic anemia ICD Code: D64.9 Status: Acute Assessment and Plan 1. AML: Status post bone marrow biopsy. Appreciate oncology management. Chemotherapy starting today. Port placed 05/23/15. Continue IV fluids, allopurinol to help prevent tumor lysis syndrome. Monitor labs. Transfuse as needed. 2. Symptomatic anemia, GI bleed: Patient had hemorrhoidectomy 3 weeks ago. No active bleeding since the procedure. Hemoccult was positive in the ER. Appreciate GI recommendations. Status post EGD/colonoscopy on 05/20/15 which showed gastritis, rectal ulcer. Continue Protonix. Monitor labs and transfuse if necessary. 3. Headache: CT of the brain is negative. Status post lumbar puncture. Continue pain control as needed. Consider MRI if no improvement. 4. Chronic back pain: Stable. Patient has implanted pain pump. 5. Anxiety: Ativan as needed. 6. Constipation: Resolved. Continue bowel regimen. 7. GI prophylaxis: Pepcid, Protonix. 8. DVT prophylaxis: SCDs. Chemical prophylaxis contraindicated secondary to indwelling, anemia. 9. UTI: Continue Rocephin. 10. Hypothyroidism: Continue Synthroid. Problem Qualifiers (1) GI bleed: Qualified Code: K92.2 - Gastrointestinal hemorrhage, unspecified gastrointestinal hemorrhage type Aurelio Botello MD May 27, 2016 09:17
[2016-05-27] MEDS: GRANISETRON INJ 1 MG, DEXAMETHASONE INJ 20 MG in SODIUM CHLORIDE 0.9% INJ 50 ML IV SCH (09:34)
[2016-05-27] MEDS: LACTULOSE SYRUP 20 GM/30 ML CUP PO SCH (09:47)
[2016-05-27 10:01] LABS: EOSINOPHILS 6 % (0-4); POLYS (SEG NEUTROPHILS) 4 % (16-70); WBC DIFF SAMPLE 100
[2016-05-27 10:04] LABS: NEUTROPHIL # MANUAL DIFF 0.1 TH/MM3 (1.8-7.7)
[2016-05-27 10:05] LABS: PLATELET ESTIMATE SMEAR LOW (NORMAL); PLATELET MORPHOLOGY NORMAL (NORMAL); SCAN/DIFF FINAL DIFF MANUAL
--- NOTE | 2016-05-27 10:42 | PD.ONC.PN ---
Subjective Subjective Remarks Afebrile overnight. Patient resting comfortably. She denies rectal bleeding. She has not had a bowel movement in two days. She continues to have headache, which she describes as a tension band around her head. Her chronic pain in her back and down her leg is controlled with oxycodone and morphine for breakthrough. Objective Data Date Time Temp Pulse Resp B/P Pulse Ox O2 Delivery O2 Flow Rate FiO2 05/27/16 08:00 96.5 83 16 117/57 95 05/27/16 05:00 98.0 85 16 104/52 95 05/27/16 00:00 98.4 75 16 113/54 95 05/26/16 20:00 98.1 88 16 118/54 97 05/26/16 16:00 97.2 96 16 123/68 97 05/26/16 12:00 96.7 100 20 97/51 97 Result Diagram: 05/27/16 0530 05/27/16 0530 Laboratory Results Laboratory Tests Test 05/27/16 05:30 White Blood Count 2.7 TH/MM3 Red Blood Count 2.30 MIL/MM3 Hemoglobin 7.5 GM/DL Hematocrit 21.7 % Mean Corpuscular Volume 94.4 FL Mean Corpuscular Hemoglobin 32.7 PG Mean Corpuscular Hemoglobin 34.7 % Concent Red Cell Distribution Width 15.5 % Platelet Count 60 TH/MM3 Mean Platelet Volume 7.9 FL Neutrophils (%) (Auto) % Lymphocytes (%) (Auto) % Monocytes (%) (Auto) % Eosinophils (%) (Auto) % Basophils (%) (Auto) % Neutrophils # (Auto) TH/MM3 Lymphocytes # (Auto) TH/MM3 Monocytes # (Auto) TH/MM3 Eosinophils # (Auto) TH/MM3 Basophils # (Auto) TH/MM3 CBC Comment AUTO DIFF Differential Total Cells 100 Counted Neutrophils % (Manual) 4 % Lymphocytes % 88 % Monocytes % 2 % Eosinophils % 6 % Neutrophils # (Manual) 0.1 TH/MM3 Differential Comment FINAL DIFF MANUAL Platelet Estimate LOW Platelet Morphology Comment NORMAL Sodium Level 143 MEQ/L Potassium Level 4.0 MEQ/L Chloride Level 111 MEQ/L Carbon Dioxide Level 26.6 MEQ/L Anion Gap 5 MEQ/L Blood Urea Nitrogen 15 MG/DL Creatinine 0.81 MG/DL Estimat Glomerular Filtration 72 ML/MIN Rate Random Glucose 117 MG/DL Uric Acid 3.5 MG/DL Calcium Level 8.3 MG/DL Phosphorus Level 3.2 MG/DL Magnesium Level 2.2 MG/DL Lactate Dehydrogenase 239 U/L Administered Medications Medications (Trade) Dose Ordered Sig/Prashant Route PRN Reason Start Time Stop Time Status Last Admin Dose Admin Carisoprodol (Soma) 350 mg TID PRN PO PAIN 05/16/16 17:30 05/27/16 09:17 Furosemide (Lasix) 20 mg DAILY PO 05/17/16 09:00 Hold 05/26/16 08:20 Gabapentin (Neurontin) 300 mg TID PO 05/16/16 18:00 05/27/16 07:35 Levothyroxine Sodium (Synthroid) 25 mcg DAILY@06 PO 05/17/16 06:00 05/27/16 05:33 Potassium Chloride (KCl) 10 meq DAILY PO 05/17/16 09:00 05/27/16 07:36 Famotidine (Pepcid) 20 mg BID PO 05/16/16 21:00 05/27/16 07:36 IV Flush (NS Flush) 2 ml BID IV 05/16/16 21:00 05/26/16 08:17 Acetaminophen (Tylenol) 650 mg Q6HR PRN PO headache 05/17/16 06:30 05/23/16 20:12 Oxycodone/ Acetaminophen (Percocet 5-325 Mg) 1 tab Q4H PRN PO pain 1-5 05/20/16 10:00 05/25/16 15:44 Pantoprazole Sodium (Protonix) 40 mg DAILY PO 05/22/16 09:00 05/27/16 07:36 Oxycodone HCl 10 mg 10 mg Q4H PRN PO pain 6-10 05/21/16 16:00 05/27/16 09:18 Ceftriaxone Sodium/Sodium Chloride (Rocephin Inj/NS Inj) 100 ml @ 200 mls/hr Q24H IV 05/23/16 16:00 05/26/16 15:18 IV Flush (NS Flush) DAILY IVF 05/24/16 09:00 05/26/16 08:18 Heparin Sodium (Porcine) (Heparin Central Flush) DAILY IVF 05/24/16 09:00 05/26/16 08:18 Heparin Sodium (Porcine) (Heparin Central Flush) UNSCH PRN IVF SEE PROTOCOL 05/23/16 15:30 05/25/16 06:09 Docusate Sodium (Colace) 100 mg BID PO 05/24/16 11:00 05/27/16 07:36 Lorazepam (Ativan) 2 mg Q6H PRN PO anxiety 05/25/16 08:59 05/27/16 07:35 Polyethylene Glycol 17 gm 17 gm DAILY PO 05/25/16 14:30 05/25/16 15:44 Sodium Chloride (NS 1000 ml Inj) 1,000 ml @ 100 mls/hr Q10H IV 05/26/16 09:30 05/27/16 05:33 Allopurinol 300 mg 300 mg DAILY PO 05/26/16 09:30 05/27/16 07:36 Granisetron HCl/ Dexamethasone Sodium Phosphate/ Sodium Chloride (Kytril Inj/ Decadron Inj/NS Inj) 56 ml @ 336 mls/hr Q24H IV 05/27/16 08:30 06/02/16 08:39 05/27/16 09:34 Lactulose (Lactulose Liq) 30 ml DAILY PO 05/27/16 09:00 05/27/16 09:47 Objective Remarks GENERAL: Middle aged female, sitting up in bed working on computer. Sister is also in the room. SKIN: Warm and dry. HEAD: Normocephalic. EYES: No injection or drainage. NECK: Supple, trachea midline. CARDIOVASCULAR: Regular rate and rhythm RESPIRATORY: Breath sounds equal bilaterally. No accessory muscle use. GASTROINTESTINAL: Abdomen soft, non-tender, nondistended. EXTREMITIES: No cyanosis NEUROLOGICAL: No obvious focal deficit. Awake, alert, and oriented x3. Assessment/Plan Problem List: (1) AML (acute myeloid leukemia) Status: Acute Plan: 05/27/16: D1. Albina-C + Idarubicin. Discussed 7+3, Daunorubicin (possible IDARUBICIN) and Cytarabine. CSF will determine if IT therapy needed.--CSF cytology pending. (2) Pancytopenia Status: Acute Plan: We will transfuse for platelets less than 10k and a Hgb of less than 7. Hx: Pt had a hemorrhoidectomy three weeks ago and has had some rectal bleeding since that time. She presented to the ER on 05/16/16 with complaints of SOB and chest tightness and was found to be quite anemic with a Hgb of 5.8. She was transfused 2 units at that time. Hematology was consulted on 05/17/16 for pancytopenia. Pt had imaging done to r/o a lymphoproliferative process. A CT scan of the CAP was essentially negative for this. A bone marrow biopsy taken on 05/20/16 confirmed the pathology of acute myeloid leukemia. The monocytic component does not appear to comprise the required 20% of marrow cellularity for a diagnosis of acute myelomonocytic leukemia. (3) Rectal bleed Status: Resolved Plan: 05/27/16: start lactulose 05/26/16: No bleeding. Had 2 BM's yesterday. Will change lactulose to as needed. 05/25/16. No rectal bleeding but still no BM. Trial of Lactulose until BM. 05/24/16. No bleeding. Concern about constipation and exacerbating bleeding. Pt neutropenic so no suppository or Enema. Start stool softner and trial lactulose. State Miralax does not work for her. EGD/colonoscopy on 05/20/15 showed gastritis, irregular Z line and rectal nodule. Path report negative for malignancy. --GI following. -- Had hemorrhoid surgery three weeks ago with Dr. Schwartz. -- Controlled. No new bleeding. (4) presence of pain pump Status: Acute Plan: --patient with intrathecal pain pump --managed by Dr. Omer outpatient --due for refill around 06/06. next week will arrange for physician office specialist to chart picker refill from Dr. Omer's office. Dr. Lopez's nurses to administer. Assessment 61 y/o female with pancytopenia, suspected AML Plan 1. Idarubicin + Albina C day 1 today 2.await CSF cytology and cytogenetics Attending Statement The exam, history, and the medical decision-making described in the above note were completed with the assistance of the mid-level provider. I reviewed and agree with the findings presented. I attest that I had a [id number] encounter with the patient on the same day, and personally performed and documented my assessment and findings in the medical record. No new symptoms, mild headache stable. She will start induction chemotherapy today. Her questions were answered. Radha Lawrence May 27, 2016 10:42 Ryan Tripp MD May 27, 2016 16:08
[2016-05-27 11:30] VITALS: BP 104/52; PULSE 68; RESP 18; TEMP 97.6; O2SAT 94
[2016-05-27] MEDS: SODIUM CHLORIDE 0.9% IV SCH (11:34)
[2016-05-27] MEDS: IDARUBICIN IV SCH (11:34)
[2016-05-27 12:10] VITALS: BP 114/56; PULSE 65; RESP 18; TEMP 97.8; O2SAT 98
[2016-05-27] MEDS: SODIUM CHLORID 0.9% IV SCH (15:10)
[2016-05-27] MEDS: CYTARABINE IV SCH (15:10)
[2016-05-27] MEDS: MORPHINE SULFATE 4 MG/ML INJ IV PUSH PRN ×2 (16:07→20:58)
[2016-05-27] MEDS: cefTRIAXone INJ 1,000 MG in SODIUM CHLORIDE 0.9% INJ 100 ML IV SCH (16:16)
[2016-05-27] MEDS: SODIUM CHLORIDE 0.9% FLUSH 5 ML FLUSH IVF SCH (19:10)
[2016-05-27 20:00] VITALS: BP 140/65; PULSE 78; RESP 16; TEMP 97.6; O2SAT 95
[2016-05-28] VITALS: BP 140/67; PULSE 71; RESP 16; TEMP 96.5; O2SAT 95
[2016-05-28] MEDS: LACTATED RINGER'S 1000 ML IV SCH (01:15)
[2016-05-28] MEDS: ACETAMINOPHEN 325 MG TAB PO PRN (02:35)
[2016-05-28] MEDS: SODIUM CHLOR 0.9% 1000 ML INJ 1,000 ML IV SCH ×3 (03:57→14:12)
[2016-05-28 04:00] VITALS: BP 157/70; PULSE 80; RESP 18; TEMP 98; O2SAT 96
[2016-05-28] MEDS: MORPHINE SULFATE 4 MG/ML INJ IV PUSH PRN ×3 (04:03→21:28)
[2016-05-28 05:07] LABS: MEAN CELL VOLUME 93.2 FL (80.0-100.0); MEAN CORPUSCULAR HEMOGLOBIN 32.5 PG (27.0-34.0); MEAN CORPUSCULAR HGB CONC 34.9 % (32.0-36.0); PLATELET COUNT 56 TH/MM3 (150-450); RED BLOOD COUNT 2.24 MIL/MM3 (4.00-5.30); RED CELL DISTRIBUTION WIDTH 16.1 % (11.6-17.2); WHITE BLOOD COUNT 1.3 TH/MM3 (4.0-11.0)
[2016-05-28 05:38] LABS: ALT (GPT) 17 U/L (10-53); ANION GAP 8 MEQ/L (5-15); AST (GOT) 14 U/L (15-37); BICARBONATE 25.9 MEQ/L (21.0-32.0); BLOOD UREA NITROGEN 11 MG/DL (7-18); CHLORIDE 111 MEQ/L (98-107); GLOMERULAR FILTRATION RATE 90 ML/MIN (>89); POTASSIUM 3.8 MEQ/L (3.5-5.1); SODIUM (NA) 145 MEQ/L (136-145)
[2016-05-28 05:41] LABS: ALKALINE PHOSPHATASE 64 U/L (45-117); TOTAL BILIRUBIN ADULT 0.2 MG/DL (0.2-1.0)
[2016-05-28] MEDS: LEVOTHYROXINE SODIUM 25 MCG TAB PO SCH (05:44)
[2016-05-28 06:13] LABS: HEMO FLAGS AUTO DIFF
[2016-05-28 06:17] LABS: HEMATOCRIT 20.9 % (35.0-46.0)
[2016-05-28 08:00] VITALS: BP 130/62; PULSE 83; RESP 18; TEMP 96.4; O2SAT 98
--- NOTE | 2016-05-28 08:06 | PD.ONC.PN ---
Subjective Subjective Remarks Anxious, c/o ativan is not working and she feels better with valium. + insomnia. No N/V/D. Objective Data Date Time Temp Pulse Resp B/P Pulse Ox O2 Delivery O2 Flow Rate FiO2 05/28/16 04:00 98.0 80 18 157/70 96 05/28/16 00:00 96.5 71 16 140/67 95 05/27/16 20:00 97.6 78 16 140/65 95 05/27/16 16:12 18 05/27/16 14:33 18 05/27/16 12:10 97.8 65 18 114/56 98 05/27/16 11:30 97.6 68 18 104/52 94 05/28/16 05/28/16 05/28/16 07:00 15:00 23:00 Intake Total 1380 ml Output Total 600 ml Balance 780 ml Result Diagram: 05/28/160 05/28/16 0410 Laboratory Results Laboratory Tests Test 05/28/16 04:10 White Blood Count 1.3 TH/MM3 Red Blood Count 2.24 MIL/MM3 Hemoglobin 7.3 GM/DL Hematocrit 20.9 % Mean Corpuscular Volume 93.2 FL Mean Corpuscular Hemoglobin 32.5 PG Mean Corpuscular Hemoglobin 34.9 % Concent Red Cell Distribution Width 16.1 % Platelet Count 56 TH/MM3 Mean Platelet Volume 7.7 FL Neutrophils (%) (Auto) % Lymphocytes (%) (Auto) % Monocytes (%) (Auto) % Eosinophils (%) (Auto) % Basophils (%) (Auto) % Neutrophils # (Auto) TH/MM3 Lymphocytes # (Auto) TH/MM3 Monocytes # (Auto) TH/MM3 Eosinophils # (Auto) TH/MM3 Basophils # (Auto) TH/MM3 CBC Comment AUTO DIFF Sodium Level 145 MEQ/L Potassium Level 3.8 MEQ/L Chloride Level 111 MEQ/L Carbon Dioxide Level 25.9 MEQ/L Anion Gap 8 MEQ/L Blood Urea Nitrogen 11 MG/DL Creatinine 0.67 MG/DL Estimat Glomerular Filtration 90 ML/MIN Rate Random Glucose 114 MG/DL Uric Acid 3.0 MG/DL Calcium Level 8.6 MG/DL Total Bilirubin 0.2 MG/DL Aspartate Amino Transf 14 U/L (AST/SGOT) Alanine Aminotransferase 17 U/L (ALT/SGPT) Alkaline Phosphatase 64 U/L Total Protein 6.7 GM/DL Albumin 3.3 GM/DL Administered Medications Medications (Trade) Dose Ordered Sig/Prashant Route PRN Reason Start Time Stop Time Status Last Admin Dose Admin Carisoprodol (Soma) 350 mg TID PRN PO PAIN 05/16/16 17:30 05/27/16 09:17 Furosemide (Lasix) 20 mg DAILY PO 05/17/16 09:00 Hold 05/26/16 08:20 Gabapentin (Neurontin) 300 mg TID PO 05/16/16 18:00 05/27/16 19:14 Levothyroxine Sodium (Synthroid) 25 mcg DAILY@06 PO 05/17/16 06:00 05/28/16 05:44 Potassium Chloride (KCl) 10 meq DAILY PO 05/17/16 09:00 05/27/16 07:36 Famotidine (Pepcid) 20 mg BID PO 05/16/16 21:00 05/27/16 20:56 IV Flush (NS Flush) 2 ml BID IV 05/16/16 21:00 05/27/16 20:57 Acetaminophen (Tylenol) 650 mg Q6HR PRN PO headache 05/17/16 06:30 05/28/16 02:35 Oxycodone/ Acetaminophen (Percocet 5-325 Mg) 1 tab Q4H PRN PO pain 1-5 05/20/16 10:00 05/25/16 15:44 Pantoprazole Sodium (Protonix) 40 mg DAILY PO 05/22/16 09:00 05/27/16 07:36 Oxycodone HCl 10 mg 10 mg Q4H PRN PO pain 6-10 05/21/16 16:00 05/28/16 00:25 Ceftriaxone Sodium/Sodium Chloride (Rocephin Inj/NS Inj) 100 ml @ 200 mls/hr Q24H IV 05/23/16 16:00 05/27/16 16:16 IV Flush (NS Flush) DAILY IVF 05/24/16 09:00 05/27/16 19:10 Heparin Sodium (Porcine) (Heparin Central Flush) DAILY IVF 05/24/16 09:00 05/27/16 19:07 Heparin Sodium (Porcine) (Heparin Central Flush) UNSCH PRN IVF SEE PROTOCOL 05/23/16 15:30 05/25/16 06:09 Docusate Sodium (Colace) 100 mg BID PO 05/24/16 11:00 05/27/16 20:56 Lorazepam (Ativan) 2 mg Q6H PRN PO anxiety 05/25/16 08:59 05/27/16 07:35 Polyethylene Glycol 17 gm 17 gm DAILY PO 05/25/16 14:30 05/25/16 15:44 Sodium Chloride (NS 1000 ml Inj) 1,000 ml @ 100 mls/hr Q10H IV 05/26/16 09:30 05/28/16 03:57 Allopurinol 300 mg 300 mg DAILY PO 05/26/16 09:30 05/27/16 07:36 Idarubicin HCl 22.6 mg/Sodium Chloride 122.6 ml @ 490.4 mls/ hr Q24H IV 05/27/16 09:00 05/29/16 09:14 05/27/16 11:34 Cytarabine 189 mg/ Sodium Chloride 500 ml @ 20.833 mls/ hr Q24H IV 05/27/16 10:00 06/03/16 09:59 05/27/16 15:10 Granisetron HCl/ Dexamethasone Sodium Phosphate/ Sodium Chloride (Kytril Inj/ Decadron Inj/NS Inj) 56 ml @ 336 mls/hr Q24H IV 05/27/16 08:30 06/02/16 08:39 05/27/16 09:34 Morphine Sulfate (Morphine Inj) 2 mg Q2HR PRN IV PUSH SEVERE BREAKTHROUGH PAIN 05/27/16 08:45 05/28/16 04:03 Lactulose (Lactulose Liq) 30 ml DAILY PO 05/27/16 09:00 05/27/16 09:47 Objective Remarks GENERAL: Well-nourished, well-developed patient. Anxious SKIN: Warm and dry. Cath site no erythema. HEAD: Normocephalic. EYES: No scleral icterus. No injection or drainage. NECK: Supple, trachea midline. No JVD or lymphadenopathy. LYMPHATIC: No adenopathy. CARDIOVASCULAR: Regular rate and rhythm without murmurs. RESPIRATORY: Breath sounds equal bilaterally. No accessory muscle use. GASTROINTESTINAL: Abdomen soft, non-tender, nondistended. EXTREMITIES: No cyanosis, or edema. MUSCULOSKELETAL: Adequate muscle tone. NEUROLOGICAL: No obvious focal deficit. Awake, alert, and oriented x3. PSYCHIATRIC: Appropriate mood and affect; insight and judgment normal. Anxious , teary. Assessment/Plan Problem List: (1) AML (acute myeloid leukemia) Status: Acute Plan: 05/28/16: Tolerated chemo well, no significant side effect. Blood counts started to trend down. 05/27/16: D1. Albina-C + Idarubicin. Discussed 7+3, Daunorubicin (possible IDARUBICIN) and Cytarabine. CSF will determine if IT therapy needed.--CSF cytology pending. (2) Pancytopenia Status: Acute Plan: We will transfuse for platelets less than 10k and a Hgb of less than 7. Hx: Pt had a hemorrhoidectomy three weeks ago and has had some rectal bleeding since that time. She presented to the ER on 05/16/16 with complaints of SOB and chest tightness and was found to be quite anemic with a Hgb of 5.8. She was transfused 2 units at that time. Hematology was consulted on 05/17/16 for pancytopenia. Pt had imaging done to r/o a lymphoproliferative process. A CT scan of the CAP was essentially negative for this. A bone marrow biopsy taken on 05/20/16 confirmed the pathology of acute myeloid leukemia. The monocytic component does not appear to comprise the required 20% of marrow cellularity for a diagnosis of acute myelomonocytic leukemia. (3) Rectal bleed Status: Resolved Plan: 05/27/16: start lactulose 05/26/16: No bleeding. Had 2 BM's yesterday. Will change lactulose to as needed. 05/25/16. No rectal bleeding but still no BM. Trial of Lactulose until BM. 05/24/16. No bleeding. Concern about constipation and exacerbating bleeding. Pt neutropenic so no suppository or Enema. Start stool softner and trial lactulose. State Miralax does not work for her. EGD/colonoscopy on 05/20/15 showed gastritis, irregular Z line and rectal nodule. Path report negative for malignancy. --GI following. -- Had hemorrhoid surgery three weeks ago with Dr. Schwartz. -- Controlled. No new bleeding. (4) presence of pain pump Status: Acute Plan: --patient with intrathecal pain pump --managed by Dr. Omer outpatient --due for refill around 06/06. next week will arrange for bag bundler to leaf size picker refill from Dr. Omer's office. Dr. Lopez's nurses to administer. (5) Anxiety Status: Acute Plan: Ativan not helping. Switch her back to valium. Add temazepam for sleep. Assessment 61 y/o female with pancytopenia, suspected AML Plan 1. Idarubicin + Albina C day 2 today 2. await CSF cytology and cytogenetics 3. Switch back to valium and add temazepam. 4. Discussed with patient and her sister, Ryan Tripp MD May 28, 2016 08:06
[2016-05-28] MEDS: POLYETHYLENE GLYCOL 17 GM PKG PO SCH (09:00)
[2016-05-28] MEDS: LACTULOSE SYRUP 20 GM/30 ML CUP PO SCH (09:18)
[2016-05-28] MEDS: DOCUSATE SODIUM 100 MG CAP PO SCH ×2 (09:18→21:24)
[2016-05-28] MEDS: FAMOTIDINE 20 MG TAB PO SCH ×2 (09:18→21:25)
[2016-05-28] MEDS: ALLOPURINOL 300 MG TAB PO SCH (09:19)
[2016-05-28] MEDS: DIAZEPAM 10 MG TAB PO SCH ×2 (09:19→21:25)
[2016-05-28] MEDS: POTASSIUM CHLORIDE 10 MEQ CAP PO SCH (09:19)
[2016-05-28] MEDS: SODIUM CHLORIDE 0.9% FLUSH 5 ML FLUSH IVF SCH (09:20)
[2016-05-28] MEDS: GABAPENTIN 300 MG CAP PO SCH ×3 (09:20→17:54)
[2016-05-28] MEDS: SODIUM CHLORIDE 0.9% FLUSH 5 ML FLUSH IV SCH ×2 (09:21→21:28)
[2016-05-28] MEDS: PANTOPRAZOLE SOD 40 MG DELAYED RELEASE TAB PO SCH (09:21)
--- NOTE | 2016-05-28 09:51 | HHI.PR ---
Subjective Remarks Follow-up anemia, GI bleed, AML. Started chemotherapy yesterday. No specific complaints at this time. Denies chest pain, dyspnea, nausea, vomiting. Objective Vitals Vital Signs Date Time Temp Pulse Resp B/P Pulse Ox O2 Delivery O2 Flow Rate FiO2 05/28/16 08:00 96.4 83 18 130/62 98 05/28/16 04:00 98.0 80 18 157/70 96 05/28/16 00:00 96.5 71 16 140/67 95 05/27/16 20:00 97.6 78 16 140/65 95 05/27/16 16:12 18 05/27/16 14:33 18 05/27/16 12:10 97.8 65 18 114/56 98 05/27/16 11:30 97.6 68 18 104/52 94 I/O 05/27/16 05/27/16 05/27/16 05/28/16 05/28/16 05/28/16 07:00 15:00 23:00 07:00 15:00 23:00 Intake Total 480 ml 1200 ml 1440 ml 1380 ml Output Total 600 ml 600 ml Balance 480 ml 1200 ml 840 ml 780 ml Intake Oral 480 ml 1200 ml 480 ml 480 ml IV Total 960 ml 900 ml Output Urine Total 600 ml 600 ml # Voids 1 6 # Bowel Movements 0 Result Diagram: 05/28/16 0410 05/28/16 0410 Imaging Last Impressions Lumbar Puncture Fluoroscopy 05/23/16 0000 Signed Impressions: Service Date/Time: Monday, May 23, 2016 14:16 - CONCLUSION: Uncomplicated fluoroscopically guided lumbar puncture. Bubba Cherry MD Catheter Placement X-Ray 05/23/16 0000 Signed Impressions: Service Date/Time: Monday, May 23, 2016 14:16 - CONCLUSION: Uncomplicated Donaldson catheter placement as above. Bubba Cherry MD Bone Biopsy CT 05/20/16 0846 Signed Impressions: Service Date/Time: Friday, May 20, 2016 09:13 - CONCLUSION: 1. Uncomplicated CT guided bone marrow aspirate. 2. Uncomplicated CT guided bone marrow biopsy. Yazan Saucedo MD Head CT 05/20/16 0000 Signed Impressions: Service Date/Time: Friday, May 20, 2016 15:16 - CONCLUSION: Normal examination for a patient of this age. No significant change has occurred. Emilio Thomas MD Chest CT 05/17/16 0000 Signed Impressions: Service Date/Time: Tuesday, May 17, 2016 15:14 - CONCLUSION: 1. 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 There are trace to very small bilateral pleural effusions and mild cardiomegaly noted. 2. No lobar consolidation. 3. Upper limits of normal to mildly enlarged mediastinal and bilateral hilar lymph nodes, nonspecific but presumably reactive. Bravo Mendez MD Abdomen/Pelvis CT 05/17/16 0000 Signed Impressions: Service Date/Time: Tuesday, May 17, 2016 15:18 - CONCLUSION: 1. Heterogeneous liver, nonspecific but possibly fatty infiltration, hepatocellular disease or a combination of the two. Nothing focal. 2. Nonspecific distention of the gallbladder. No stone, perceptible inflammatory changes or ductal dilatation demonstrated. 3. No obstruction, inflammatory changes or perceptible mass of the GI tract. Bravo Mendez MD Chest X-Ray 05/16/16 0000 Signed Impressions: Service Date/Time: Monday, May 16, 2016 19:23 - CONCLUSION: No acute disease. Minimal interstitial densities likely chronic. Kilo Cotto MD Objective Remarks General: No acute distress. Heart: Regular rate and rhythm. No murmur. Lungs: Clear to auscultation bilaterally. No wheezes, rales, or rhonchi. Breathing is nonlabored. Abdomen: Soft, nontender, nondistended. Extremities: No lower extremity edema. Psych: Alert and oriented. Procedures EGD/ colonoscopy Bone marrow biopsy Urinary Catheter: No Vascular Central Line Catheter: No A/P Problem List: (1) Pancytopenia ICD Code: D61.818 Status: Acute (2) GI bleed ICD Code: K92.2 Status: Acute (3) AML (acute myeloid leukemia) ICD Code: C92.00 Status: Acute (4) Symptomatic anemia ICD Code: D64.9 Status: Acute Assessment and Plan 1. AML: Status post bone marrow biopsy. Appreciate oncology management. Port placed 05/23/15. Chemotherapy per oncology, first dose was given 05/27/16. Continue IV fluids, allopurinol to help prevent tumor lysis syndrome. Monitor labs. Transfuse as needed. 2. Symptomatic anemia, GI bleed: Patient had hemorrhoidectomy 3 weeks ago. No active bleeding since the procedure. Hemoccult was positive in the ER. Appreciate GI recommendations. Status post EGD/colonoscopy on 05/20/15 which showed gastritis, rectal ulcer. Continue Protonix. Monitor labs and transfuse if necessary. 3. Headache: CT of the brain is negative. Status post lumbar puncture. Continue pain control as needed. Consider MRI if no improvement. 4. Chronic back pain: Stable. Patient has implanted pain pump. 5. Anxiety: Ativan as needed. 6. Constipation: Resolved. Continue bowel regimen. 7. GI prophylaxis: Pepcid, Protonix. 8. DVT prophylaxis: SCDs. Chemical prophylaxis contraindicated secondary to indwelling, anemia. 9. UTI: Continue Rocephin. 10. Hypothyroidism: Continue Synthroid. Problem Qualifiers (1) GI bleed: Qualified Code: K92.2 - Gastrointestinal hemorrhage, unspecified gastrointestinal hemorrhage type Aurelio Botello MD May 28, 2016 09:51
[2016-05-28 10:02] LABS: BANDS 2 % (0-6); NEUTROPHIL # MANUAL DIFF 0.2 TH/MM3 (1.8-7.7); PLATELET ESTIMATE SMEAR LOW (NORMAL); PLATELET MORPHOLOGY NORMAL (NORMAL); POLYS (SEG NEUTROPHILS) 17 % (16-70); SCAN/DIFF FINAL DIFF MANUAL; WBC DIFF SAMPLE 100
[2016-05-28] MEDS: GRANISETRON INJ 1 MG, DEXAMETHASONE INJ 20 MG in SODIUM CHLORIDE 0.9% INJ 50 ML IV SCH (11:41)
[2016-05-28 12:00] VITALS: BP 129/61; PULSE 65; RESP 16; TEMP 96.9; O2SAT 97
[2016-05-28 16:00] VITALS: BP 134/62; PULSE 74; RESP 18; TEMP 96.8; O2SAT 94
[2016-05-28] MEDS: SODIUM CHLORIDE 0.9% IV SCH (16:43)
[2016-05-28] MEDS: IDARUBICIN IV SCH (16:43)
[2016-05-28] MEDS: cefTRIAXone INJ 1,000 MG in SODIUM CHLORIDE 0.9% INJ 100 ML IV SCH (17:39)
[2016-05-28] MEDS: CYTARABINE IV SCH (17:41)
[2016-05-28] MEDS: SODIUM CHLORID 0.9% IV SCH (17:41)
[2016-05-28 20:00] VITALS: BP 127/60; PULSE 80; RESP 16; TEMP 97.1; O2SAT 97
[2016-05-28] MEDS: TEMAZEPAM 15 MG CAP PO PRN (21:25)
[2016-05-29] VITALS (11 sets, daily range): BP systolic 117–154; BP diastolic 59–73; PULSE 67–75; RESP 16–20; TEMP 96.1–99.2; O2SAT 95–98
[2016-05-29] MEDS: LACTATED RINGER'S 1000 ML IV SCH (01:15)
[2016-05-29] MEDS: SODIUM CHLOR 0.9% 1000 ML INJ 1,000 ML IV SCH ×2 (01:34→11:52)
[2016-05-29] MEDS: MORPHINE SULFATE 4 MG/ML INJ IV PUSH PRN (05:06)
[2016-05-29] MEDS: LEVOTHYROXINE SODIUM 25 MCG TAB PO SCH (05:08)
[2016-05-29 06:06] LABS: MEAN CELL VOLUME 93.6 FL (80.0-100.0); MEAN CORPUSCULAR HEMOGLOBIN 32.3 PG (27.0-34.0); MEAN CORPUSCULAR HGB CONC 34.5 % (32.0-36.0); PLATELET COUNT 48 TH/MM3 (150-450); RED BLOOD COUNT 2.05 MIL/MM3 (4.00-5.30); RED CELL DISTRIBUTION WIDTH 15.8 % (11.6-17.2)
[2016-05-29 06:15] LABS: HEMO FLAGS AUTO DIFF
[2016-05-29 06:16] LABS: HEMATOCRIT 19.2 % (35.0-46.0)
[2016-05-29 06:32] LABS: ALKALINE PHOSPHATASE 61 U/L (45-117); ALT (GPT) 18 U/L (10-53); ANION GAP 7 MEQ/L (5-15); AST (GOT) 12 U/L (15-37); BICARBONATE 25.4 MEQ/L (21.0-32.0); BLOOD UREA NITROGEN 12 MG/DL (7-18); CHLORIDE 112 MEQ/L (98-107); GLOMERULAR FILTRATION RATE 108 ML/MIN (>89); SODIUM (NA) 144 MEQ/L (136-145); TOTAL BILIRUBIN ADULT 0.2 MG/DL (0.2-1.0)
--- NOTE | 2016-05-29 07:54 | PD.ONC.PN ---
Subjective Subjective Remarks No nausea. Mild mouthsore. No CP/SOB. No bleeding. Mild headache no change. Sleeping better. Objective Data Date Time Temp Pulse Resp B/P Pulse Ox O2 Delivery O2 Flow Rate FiO2 05/29/16 05:00 97.0 67 18 153/70 95 05/29/16 00:00 97.0 72 16 131/61 95 05/28/16 20:00 97.1 80 16 127/60 97 05/28/16 17:35 18 05/28/16 16:00 96.8 74 18 134/62 94 05/28/16 12:00 96.9 65 16 129/61 97 05/28/16 10:19 18 05/28/16 08:00 96.4 83 18 130/62 98 05/29/16 05/29/16 05/29/16 07:00 15:00 23:00 Intake Total 1570 ml Balance 1570 ml Result Diagram: 05/29/16 0500 05/29/16 0500 Laboratory Results Laboratory Tests Test 05/29/16 05:00 White Blood Count 1.0 TH/MM3 Red Blood Count 2.05 MIL/MM3 Hemoglobin 6.6 GM/DL Hematocrit 19.2 % Mean Corpuscular Volume 93.6 FL Mean Corpuscular Hemoglobin 32.3 PG Mean Corpuscular Hemoglobin 34.5 % Concent Red Cell Distribution Width 15.8 % Platelet Count 48 TH/MM3 Mean Platelet Volume 7.8 FL Neutrophils (%) (Auto) % Lymphocytes (%) (Auto) % Monocytes (%) (Auto) % Eosinophils (%) (Auto) % Basophils (%) (Auto) % Neutrophils # (Auto) TH/MM3 Lymphocytes # (Auto) TH/MM3 Monocytes # (Auto) TH/MM3 Eosinophils # (Auto) TH/MM3 Basophils # (Auto) TH/MM3 CBC Comment AUTO DIFF Sodium Level 144 MEQ/L Potassium Level 4.0 MEQ/L Chloride Level 112 MEQ/L Carbon Dioxide Level 25.4 MEQ/L Anion Gap 7 MEQ/L Blood Urea Nitrogen 12 MG/DL Creatinine 0.57 MG/DL Estimat Glomerular Filtration 108 ML/MIN Rate Random Glucose 97 MG/DL Uric Acid 3.0 MG/DL Calcium Level 8.4 MG/DL Total Bilirubin 0.2 MG/DL Aspartate Amino Transf 12 U/L (AST/SGOT) Alanine Aminotransferase 18 U/L (ALT/SGPT) Alkaline Phosphatase 61 U/L Total Protein 6.4 GM/DL Albumin 3.2 GM/DL Administered Medications Medications (Trade) Dose Ordered Sig/Prashant Route PRN Reason Start Time Stop Time Status Last Admin Dose Admin Carisoprodol (Soma) 350 mg TID PRN PO PAIN 05/16/16 17:30 05/27/16 09:17 Furosemide (Lasix) 20 mg DAILY PO 05/17/16 09:00 Hold 05/26/16 08:20 Gabapentin (Neurontin) 300 mg TID PO 05/16/16 18:00 05/28/16 17:54 Levothyroxine Sodium (Synthroid) 25 mcg DAILY@06 PO 05/17/16 06:00 05/29/16 05:08 Potassium Chloride (KCl) 10 meq DAILY PO 05/17/16 09:00 05/28/16 09:19 Famotidine (Pepcid) 20 mg BID PO 05/16/16 21:00 05/28/16 21:25 IV Flush (NS Flush) 2 ml BID IV 05/16/16 21:00 05/28/16 21:28 Acetaminophen (Tylenol) 650 mg Q6HR PRN PO headache 05/17/16 06:30 05/28/16 02:35 Oxycodone/ Acetaminophen (Percocet 5-325 Mg) 1 tab Q4H PRN PO pain 1-5 05/20/16 10:00 05/25/16 15:44 Pantoprazole Sodium (Protonix) 40 mg DAILY PO 05/22/16 09:00 05/28/16 09:21 Oxycodone HCl 10 mg 10 mg Q4H PRN PO pain 6-10 05/21/16 16:00 05/29/16 01:51 Ceftriaxone Sodium/Sodium Chloride (Rocephin Inj/NS Inj) 100 ml @ 200 mls/hr Q24H IV 05/23/16 16:00 05/28/16 17:39 IV Flush (NS Flush) DAILY IVF 05/24/16 09:00 05/28/16 09:20 Heparin Sodium (Porcine) (Heparin Central Flush) DAILY IVF 05/24/16 09:00 05/28/16 09:20 Heparin Sodium (Porcine) (Heparin Central Flush) UNSCH PRN IVF SEE PROTOCOL 05/23/16 15:30 05/25/16 06:09 Docusate Sodium (Colace) 100 mg BID PO 05/24/16 11:00 05/28/16 21:24 Polyethylene Glycol 17 gm 17 gm DAILY PO 05/25/16 14:30 05/25/16 15:44 Sodium Chloride (NS 1000 ml Inj) 1,000 ml @ 100 mls/hr Q10H IV 05/26/16 09:30 05/29/16 01:34 Allopurinol 300 mg 300 mg DAILY PO 05/26/16 09:30 05/28/16 09:19 Idarubicin HCl 22.6 mg/Sodium Chloride 122.6 ml @ 490.4 mls/ hr Q24H IV 05/27/16 09:00 05/29/16 09:14 05/28/16 16:43 Cytarabine 189 mg/ Sodium Chloride 500 ml @ 20.833 mls/ hr Q24H IV 05/27/16 10:00 06/03/16 09:59 05/28/16 17:41 Granisetron HCl/ Dexamethasone Sodium Phosphate/ Sodium Chloride (Kytril Inj/ Decadron Inj/NS Inj) 56 ml @ 336 mls/hr Q24H IV 05/27/16 08:30 06/02/16 08:39 05/28/16 11:41 Morphine Sulfate (Morphine Inj) 2 mg Q2HR PRN IV PUSH SEVERE BREAKTHROUGH PAIN 05/27/16 08:45 05/29/16 05:06 Lactulose (Lactulose Liq) 30 ml DAILY PO 05/27/16 09:00 05/28/16 09:18 Diazepam (Valium) 10 mg Q12HR PO 05/28/16 09:00 05/28/16 21:25 Temazepam (Restoril) 15 mg HS PRN PO SLEEP 05/28/16 08:00 05/28/16 21:25 Objective Remarks GENERAL: Well-nourished, well-developed patient. SKIN: Warm and dry. Pale. HEAD: Normocephalic. EYES: No scleral icterus. No injection or drainage. NECK: Supple, trachea midline. No JVD or lymphadenopathy. LYMPHATIC: No adenopathy. CARDIOVASCULAR: Regular rate and rhythm without murmurs. RESPIRATORY: Breath sounds equal bilaterally. No accessory muscle use. GASTROINTESTINAL: Abdomen soft, non-tender, nondistended. EXTREMITIES: No cyanosis, or edema. MUSCULOSKELETAL: Adequate muscle tone. NEUROLOGICAL: No obvious focal deficit. Awake, alert, and oriented x3. PSYCHIATRIC: Appropriate mood and affect; insight and judgment normal. Assessment/Plan Problem List: (1) AML (acute myeloid leukemia) Status: Acute Plan: 05/29/16: D3 chemotherapy. Tolerated well Blood counts trending lower. Transfuse PRBC 2U. CSF cytology negative. 05/28/16: Tolerated chemo well, no significant side effect. Blood counts started to trend down. 05/27/16: D1. Albina-C + Idarubicin. Discussed 7+3, IDARUBICIN and Cytarabine. CSF will determine if IT therapy needed.--CSF cytology pending. (2) Pancytopenia Status: Acute Plan: We will transfuse for platelets less than 10k and a Hgb of less than 7. Hx: Pt had a hemorrhoidectomy three weeks ago and has had some rectal bleeding since that time. She presented to the ER on 05/16/16 with complaints of SOB and chest tightness and was found to be quite anemic with a Hgb of 5.8. She was transfused 2 units at that time. Hematology was consulted on 05/17/16 for pancytopenia. Pt had imaging done to r/o a lymphoproliferative process. A CT scan of the CAP was essentially negative for this. A bone marrow biopsy taken on 05/20/16 confirmed the pathology of acute myeloid leukemia. The monocytic component does not appear to comprise the required 20% of marrow cellularity for a diagnosis of acute myelomonocytic leukemia. (3) Rectal bleed Status: Resolved Plan: 05/27/16: start lactulose 05/26/16: No bleeding. Had 2 BM's yesterday. Will change lactulose to as needed. 05/25/16. No rectal bleeding but still no BM. Trial of Lactulose until BM. 05/24/16. No bleeding. Concern about constipation and exacerbating bleeding. Pt neutropenic so no suppository or Enema. Start stool softner and trial lactulose. State Miralax does not work for her. EGD/colonoscopy on 05/20/15 showed gastritis, irregular Z line and rectal nodule. Path report negative for malignancy. --GI following. -- Had hemorrhoid surgery three weeks ago with Dr. Schwartz. -- Controlled. No new bleeding. (4) presence of pain pump Status: Acute Plan: --patient with intrathecal pain pump --managed by Dr. Omer outpatient --due for refill around 06/06. next week will arrange for tripe washer to strip picker refill from Dr. Omer's office. Dr. Lopez's nurses to administer. (5) Anxiety Status: Acute Plan: Ativan not helping. Switch her back to valium. Add temazepam for sleep. Assessment 61 y/o female with pancytopenia, suspected AML Plan 1. Idarubicin + Albina C day 3 today 2. Transfuse PRBC 2 U Ryan Tripp MD May 29, 2016 07:54
[2016-05-29] MEDS ORDERED: ACETAMINOPHEN 325 MG TAB PO PRN ×2 (08:00→13:00)
[2016-05-29] MEDS ORDERED: diphenhydrAMINE HCL 25 MG CAP PO PRN ×3 (08:00→21:15)
[2016-05-29] MEDS ORDERED: SODIUM CHLOR 0.9% 250 ML INJ 250 ML IV ONE (08:00)
[2016-05-29 08:10] LABS: NEUTROPHIL # MANUAL DIFF 0.2 TH/MM3 (1.8-7.7); POLYS (SEG NEUTROPHILS) 16 % (16-70); WBC DIFF SAMPLE 100
[2016-05-29 08:11] LABS: PLATELET ESTIMATE SMEAR LOW (NORMAL); PLATELET MORPHOLOGY NORMAL (NORMAL); SCAN/DIFF FINAL DIFF MANUAL
[2016-05-29] MEDS: SODIUM CHLORIDE 0.9% FLUSH 5 ML FLUSH IVF SCH (09:00)
[2016-05-29] MEDS: SODIUM CHLORIDE 0.9% IV SCH (09:00)
[2016-05-29] MEDS: IDARUBICIN IV SCH (09:00)
[2016-05-29] MEDS: FAMOTIDINE 20 MG TAB PO SCH ×2 (09:23→21:08)
[2016-05-29] MEDS: GABAPENTIN 300 MG CAP PO SCH ×3 (09:24→18:06)
[2016-05-29] MEDS: LACTULOSE SYRUP 20 GM/30 ML CUP PO SCH (09:24)
[2016-05-29] MEDS: DIAZEPAM 10 MG TAB PO SCH ×2 (09:24→21:08)
[2016-05-29] MEDS: ALLOPURINOL 300 MG TAB PO SCH (09:24)
[2016-05-29] MEDS: DOCUSATE SODIUM 100 MG CAP PO SCH ×2 (09:24→21:09)
[2016-05-29] MEDS: PANTOPRAZOLE SOD 40 MG DELAYED RELEASE TAB PO SCH (09:24)
[2016-05-29] MEDS: POLYETHYLENE GLYCOL 17 GM PKG PO SCH (09:25)
[2016-05-29] MEDS: POTASSIUM CHLORIDE 10 MEQ CAP PO SCH (09:27)
[2016-05-29] MEDS: SODIUM CHLORIDE 0.9% FLUSH 5 ML FLUSH IV SCH ×2 (09:33→21:08)
--- NOTE | 2016-05-29 10:08 | HHI.PR ---
Subjective Remarks Follow up anemia, AML, UTI. Patient still having pain, unchanged. Now feeling lightheaded, weak. No nausea/vomiting. Objective Vitals Vital Signs Date Time Temp Pulse Resp B/P Pulse Ox O2 Delivery O2 Flow Rate FiO2 05/29/16 08:00 96.1 74 20 151/66 98 05/29/16 05:00 97.0 67 18 153/70 95 05/29/16 00:00 97.0 72 16 131/61 95 05/28/16 20:00 97.1 80 16 127/60 97 05/28/16 17:35 18 05/28/16 16:00 96.8 74 18 134/62 94 05/28/16 12:00 96.9 65 16 129/61 97 05/28/16 10:19 18 I/O 05/28/16 05/28/16 05/28/16 05/29/16 05/29/16 05/29/16 07:00 15:00 23:00 07:00 15:00 23:00 Intake Total 1380 ml 960 ml 1680 ml 1570 ml Output Total 600 ml Balance 780 ml 960 ml 1680 ml 1570 ml Intake Oral 480 ml 960 ml 720 ml 600 ml IV Total 900 ml 960 ml 970 ml Output Urine Total 600 ml # Voids 6 2 2 # Bowel Movements 1 Result Diagram: 05/29/16 0500 05/29/16 0500 Imaging Last Impressions Lumbar Puncture Fluoroscopy 05/23/16 0000 Signed Impressions: Service Date/Time: Monday, May 23, 2016 14:16 - CONCLUSION: Uncomplicated fluoroscopically guided lumbar puncture. Bubba Cherry MD Catheter Placement X-Ray 05/23/16 0000 Signed Impressions: Service Date/Time: Monday, May 23, 2016 14:16 - CONCLUSION: Uncomplicated Donaldson catheter placement as above. Bubba Cherry MD Bone Biopsy CT 05/20/16 0846 Signed Impressions: Service Date/Time: Friday, May 20, 2016 09:13 - CONCLUSION: 1. Uncomplicated CT guided bone marrow aspirate. 2. Uncomplicated CT guided bone marrow biopsy. Yazan Saucedo MD Head CT 05/20/16 0000 Signed Impressions: Service Date/Time: Friday, May 20, 2016 15:16 - CONCLUSION: Normal examination for a patient of this age. No significant change has occurred. Emilio Thomas MD Chest CT 05/17/16 0000 Signed Impressions: Service Date/Time: Tuesday, May 17, 2016 15:14 - CONCLUSION: 1. 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 There are trace to very small bilateral pleural effusions and mild cardiomegaly noted. 2. No lobar consolidation. 3. Upper limits of normal to mildly enlarged mediastinal and bilateral hilar lymph nodes, nonspecific but presumably reactive. Bravo Mendez MD Abdomen/Pelvis CT 05/17/16 0000 Signed Impressions: Service Date/Time: Tuesday, May 17, 2016 15:18 - CONCLUSION: 1. Heterogeneous liver, nonspecific but possibly fatty infiltration, hepatocellular disease or a combination of the two. Nothing focal. 2. Nonspecific distention of the gallbladder. No stone, perceptible inflammatory changes or ductal dilatation demonstrated. 3. No obstruction, inflammatory changes or perceptible mass of the GI tract. Bravo Mendez MD Chest X-Ray 05/16/16 0000 Signed Impressions: Service Date/Time: Monday, May 16, 2016 19:23 - CONCLUSION: No acute disease. Minimal interstitial densities likely chronic. Kilo Cotto MD Objective Remarks General: No acute distress. Heart: Regular rate and rhythm. No murmur. Lungs: Clear to auscultation bilaterally. No wheezes, rales, or rhonchi. Breathing is nonlabored. Abdomen: Soft, nontender, nondistended. Extremities: No lower extremity edema. Psych: Alert and oriented. Procedures EGD/ colonoscopy Bone marrow biopsy Urinary Catheter: No Vascular Central Line Catheter: No A/P Problem List: (1) Pancytopenia ICD Code: D61.818 Status: Acute (2) GI bleed ICD Code: K92.2 Status: Acute (3) AML (acute myeloid leukemia) ICD Code: C92.00 Status: Acute (4) Symptomatic anemia ICD Code: D64.9 Status: Acute (5) UTI (urinary tract infection) ICD Code: N39.0 Status: Acute Assessment and Plan 1. AML: Status post bone marrow biopsy. Appreciate oncology management. Port placed 05/23/15. Chemotherapy per oncology, first dose was given 05/27/16. Continue IV fluids, allopurinol to help prevent tumor lysis syndrome. Monitor labs. Transfuse 2 units PRBCs today per oncology. Neutropenic precautions. 2. Symptomatic anemia, GI bleed: Patient had hemorrhoidectomy 3 weeks ago. No active bleeding since the procedure. Hemoccult was positive in the ER. Appreciate GI recommendations. Status post EGD/colonoscopy on 05/20/15 which showed gastritis, rectal ulcer. Continue Protonix. Monitor labs and transfuse if necessary. 3. Headache: CT of the brain is negative. Status post lumbar puncture. Continue pain control as needed. Consider MRI if no improvement. 4. Chronic back pain: Stable. Patient has implanted pain pump. 5. Anxiety: Ativan as needed. 6. Constipation: Resolved. Continue bowel regimen. 7. GI prophylaxis: Pepcid, Protonix. 8. DVT prophylaxis: SCDs. Chemical prophylaxis contraindicated secondary to indwelling, anemia. 9. UTI: Continue Rocephin. 10. Hypothyroidism: Continue Synthroid. Problem Qualifiers (1) GI bleed: Qualified Code: K92.2 - Gastrointestinal hemorrhage, unspecified gastrointestinal hemorrhage type Aurelio Botello MD May 29, 2016 10:08
[2016-05-29] MEDS: GRANISETRON INJ 1 MG, DEXAMETHASONE INJ 20 MG in SODIUM CHLORIDE 0.9% INJ 50 ML IV SCH (17:50)
[2016-05-29] MEDS: cefTRIAXone INJ 1,000 MG in SODIUM CHLORIDE 0.9% INJ 100 ML IV SCH (19:56)
[2016-05-29] MEDS: SODIUM CHLORID 0.9% IV SCH (21:01)
[2016-05-29] MEDS: CYTARABINE IV SCH (21:01)
[2016-05-29] MEDS: ACETAMINOPHEN 325 MG TAB PO PRN (21:10)
[2016-05-29] MEDS: TEMAZEPAM 15 MG CAP PO PRN (22:17)
[2016-05-30 00:41] VITALS: BP 157/77; PULSE 65; RESP 20; TEMP 97.1; O2SAT 94
[2016-05-30] MEDS: LACTATED RINGER'S 1000 ML IV SCH (01:15)
[2016-05-30 04:00] VITALS: BP 155/78; PULSE 67; RESP 17; TEMP 98.3; O2SAT 97
[2016-05-30] MEDS: LEVOTHYROXINE SODIUM 25 MCG TAB PO SCH (05:30)
[2016-05-30] MEDS: SODIUM CHLOR 0.9% 1000 ML INJ 1,000 ML IV SCH ×3 (07:30→23:30)
[2016-05-30 08:00] VITALS: BP 191/81; PULSE 69; RESP 18; TEMP 96.5; O2SAT 96
[2016-05-30 08:04] LABS: AUTOMATED NEUTROPHIL # 0.2 TH/MM3 (1.8-7.7); BASOPHIL % 0.3 % (0.0-2.0); EOSINOPHIL % 0.1 % (0.0-4.0); HEMATOCRIT 26.1 % (35.0-46.0); LYMPH % 66.4 % (9.0-44.0); LYMPHOCYTE # 0.4 TH/MM3 (1.0-4.8); MEAN CELL VOLUME 90.9 FL (80.0-100.0); MEAN CORPUSCULAR HEMOGLOBIN 32.1 PG (27.0-34.0); MEAN CORPUSCULAR HGB CONC 35.2 % (32.0-36.0); MONO % 1.4 % (0.0-8.0); NEUT % 31.8 % (16.0-70.0); PLATELET COUNT 48 TH/MM3 (150-450); RED BLOOD COUNT 2.87 MIL/MM3 (4.00-5.30); RED CELL DISTRIBUTION WIDTH 15.8 % (11.6-17.2); WHITE BLOOD COUNT 0.6 TH/MM3 (4.0-11.0)
[2016-05-30] MEDS: LACTULOSE SYRUP 20 GM/30 ML CUP PO SCH (08:13)
[2016-05-30] MEDS: GABAPENTIN 300 MG CAP PO SCH ×3 (08:13→18:08)
[2016-05-30] MEDS: POTASSIUM CHLORIDE 10 MEQ CAP PO SCH (08:13)
[2016-05-30] MEDS: DOCUSATE SODIUM 100 MG CAP PO SCH ×2 (08:13→20:34)
[2016-05-30] MEDS: POLYETHYLENE GLYCOL 17 GM PKG PO SCH (08:13)
[2016-05-30] MEDS: FAMOTIDINE 20 MG TAB PO SCH ×2 (08:13→20:34)
[2016-05-30] MEDS: DIAZEPAM 10 MG TAB PO SCH ×2 (08:13→20:34)
[2016-05-30] MEDS: PANTOPRAZOLE SOD 40 MG DELAYED RELEASE TAB PO SCH (08:13)
[2016-05-30] MEDS: ALLOPURINOL 300 MG TAB PO SCH (08:13)
[2016-05-30] MEDS: SODIUM CHLORIDE 0.9% FLUSH 5 ML FLUSH IV SCH ×2 (08:14→20:36)
[2016-05-30 08:19] LABS: HEMO FLAGS AUTO DIFF
[2016-05-30 08:23] LABS: ANION GAP 8 MEQ/L (5-15); AST (GOT) 19 U/L (15-37); BICARBONATE 26.5 MEQ/L (21.0-32.0); BLOOD UREA NITROGEN 14 MG/DL (7-18); CHLORIDE 110 MEQ/L (98-107); GLOMERULAR FILTRATION RATE 100 ML/MIN (>89); POTASSIUM 4.2 MEQ/L (3.5-5.1); SODIUM (NA) 144 MEQ/L (136-145)
[2016-05-30 08:27] LABS: ALKALINE PHOSPHATASE 58 U/L (45-117); ALT (GPT) 25 U/L (10-53); TOTAL BILIRUBIN ADULT 0.5 MG/DL (0.2-1.0)
[2016-05-30] MEDS: SODIUM CHLORIDE 0.9% FLUSH 5 ML FLUSH IVF SCH (09:00)
--- NOTE | 2016-05-30 09:28 | HHI.PR ---
Subjective Remarks Follow up AML, UTI, lightheadedness. The patient states that her symptoms have improved significantly following blood transfusion. No more lightheadedness. Denies chest pain or dyspnea. No nausea or vomiting. Objective Vitals Vital Signs Date Time Temp Pulse Resp B/P Pulse Ox O2 Delivery O2 Flow Rate FiO2 05/30/16 08:00 96.5 69 18 191/81 96 05/30/16 04:00 98.3 67 17 155/78 97 05/30/16 00:41 97.1 65 20 157/77 94 05/29/16 22:19 96.7 72 19 145/67 97 05/29/16 22:01 97.5 70 19 145/65 97 05/29/16 20:00 99.2 75 18 154/69 98 05/29/16 20:00 19 05/29/16 16:00 97.1 70 16 129/73 97 05/29/16 14:55 96.7 68 127/61 96 05/29/16 14:21 97.7 73 140/65 95 05/29/16 14:00 96.1 70 16 140/65 95 05/29/16 12:45 96.1 72 16 117/59 96 I/O 05/29/16 05/29/16 05/29/16 05/30/16 05/30/16 05/30/16 06:59 14:59 22:59 06:59 14:59 22:59 Intake Total 1570 ml 3256 ml 1056 ml 480 ml Balance 1570 ml 3256 ml 1056 ml 480 ml Intake Oral 600 ml 960 ml 480 ml IV Total 970 ml 2296 ml 685 ml Packed Cells 371 ml # Voids 2 2 2 # Bowel Movements 0 Result Diagram: 05/30/16 0455 05/30/16 0455 Imaging Last Impressions Lumbar Puncture Fluoroscopy 05/23/16 0000 Signed Impressions: Service Date/Time: Monday, May 23, 2016 14:16 - CONCLUSION: Uncomplicated fluoroscopically guided lumbar puncture. Bubba Cherry MD Catheter Placement X-Ray 05/23/16 0000 Signed Impressions: Service Date/Time: Monday, May 23, 2016 14:16 - CONCLUSION: Uncomplicated Donaldson catheter placement as above. Bubba Cherry MD Bone Biopsy CT 05/20/16 0846 Signed Impressions: Service Date/Time: Friday, May 20, 2016 09:13 - CONCLUSION: 1. Uncomplicated CT guided bone marrow aspirate. 2. Uncomplicated CT guided bone marrow biopsy. Yazan Saucedo MD Head CT 05/20/16 0000 Signed Impressions: Service Date/Time: Friday, May 20, 2016 15:16 - CONCLUSION: Normal examination for a patient of this age. No significant change has occurred. Emilio Thomas MD Chest CT 05/17/16 0000 Signed Impressions: Service Date/Time: Tuesday, May 17, 2016 15:14 - CONCLUSION: 1. 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 There are trace to very small bilateral pleural effusions and mild cardiomegaly noted. 2. No lobar consolidation. 3. Upper limits of normal to mildly enlarged mediastinal and bilateral hilar lymph nodes, nonspecific but presumably reactive. Bravo Mendez MD Abdomen/Pelvis CT 05/17/16 0000 Signed Impressions: Service Date/Time: Tuesday, May 17, 2016 15:18 - CONCLUSION: 1. Heterogeneous liver, nonspecific but possibly fatty infiltration, hepatocellular disease or a combination of the two. Nothing focal. 2. Nonspecific distention of the gallbladder. No stone, perceptible inflammatory changes or ductal dilatation demonstrated. 3. No obstruction, inflammatory changes or perceptible mass of the GI tract. Bravo Mendez MD Chest X-Ray 05/16/16 0000 Signed Impressions: Service Date/Time: Monday, May 16, 2016 19:23 - CONCLUSION: No acute disease. Minimal interstitial densities likely chronic. Kilo Cotto MD Objective Remarks General: No acute distress. Heart: Regular rate and rhythm. No murmur. Lungs: Clear to auscultation bilaterally. No wheezes, rales, or rhonchi. Breathing is nonlabored. Abdomen: Soft, nontender, nondistended. Extremities: No lower extremity edema. Psych: Alert and oriented. Procedures EGD/ colonoscopy Bone marrow biopsy Urinary Catheter: No Vascular Central Line Catheter: No A/P Problem List: (1) Pancytopenia ICD Code: D61.818 Status: Acute (2) GI bleed ICD Code: K92.2 Status: Acute (3) AML (acute myeloid leukemia) ICD Code: C92.00 Status: Acute (4) Symptomatic anemia ICD Code: D64.9 Status: Acute (5) UTI (urinary tract infection) ICD Code: N39.0 Status: Acute Assessment and Plan 1. AML: Status post bone marrow biopsy. Appreciate oncology management. Port placed 05/23/15. Chemotherapy per oncology, first dose was given 05/27/16. Continue IV fluids, allopurinol to help prevent tumor lysis syndrome. Monitor labs. H/H improved following transfusion. Neutropenic precautions. 2. Symptomatic anemia, GI bleed: Patient had hemorrhoidectomy 3 weeks ago. No active bleeding since the procedure. Hemoccult was positive in the ER. Appreciate GI recommendations. Status post EGD/colonoscopy on 05/20/15 which showed gastritis, rectal ulcer. Continue Protonix. Monitor labs and transfuse if necessary. 3. Headache: CT of the brain is negative. Status post lumbar puncture. Continue pain control as needed. Consider MRI if no improvement. 4. Chronic back pain: Stable. Patient has implanted pain pump. 5. Anxiety: Ativan as needed. 6. Constipation: Resolved. Continue bowel regimen. 7. GI prophylaxis: Pepcid, Protonix. 8. DVT prophylaxis: SCDs. Chemical prophylaxis contraindicated secondary to indwelling, anemia. 9. UTI: Continue Rocephin. 10. Hypothyroidism: Continue Synthroid. Discharge Planning Per oncology. Problem Qualifiers (1) GI bleed: Qualified Code: K92.2 - Gastrointestinal hemorrhage, unspecified gastrointestinal hemorrhage type Aurelio Botello MD May 30, 2016 09:28
[2016-05-30 10:20] LABS: BANDS 2 % (0-6); POLYS (SEG NEUTROPHILS) 30 % (16-70); WBC DIFF SAMPLE 100
[2016-05-30 10:21] LABS: NEUTROPHIL # MANUAL DIFF 0.2 TH/MM3 (1.8-7.7); PLATELET ESTIMATE SMEAR RARE (NORMAL); PLATELET MORPHOLOGY NORMAL (NORMAL); SCAN/DIFF FINAL DIFF MANUAL
[2016-05-30 10:22] LABS: ACANTHOCYTES OCC (NORMAL)
[2016-05-30 12:00] VITALS: BP 165/74; PULSE 67; RESP 18; TEMP 96.7; O2SAT 95
[2016-05-30] MEDS: MORPHINE SULFATE 4 MG/ML INJ IV PUSH PRN (13:07)
--- NOTE | 2016-05-30 14:07 | PD.ONC.PN ---
Subjective Subjective Remarks Afebrile overnight. Patient tolerating chemotherapy. Patient complaining of chronic pain in her back. The pain is controlled with her IT pain pump as well as the PRN morphine and oxycodone. She is tolerating chemotherapy. No nausea. She is eating well and having bowel movements. No bleeding. Objective Data Date Time Temp Pulse Resp B/P Pulse Ox O2 Delivery O2 Flow Rate FiO2 05/30/16 12:00 96.7 67 18 165/74 95 05/30/16 08:00 96.5 69 18 191/81 96 05/30/16 04:00 98.3 67 17 155/78 97 05/30/16 00:41 97.1 65 20 157/77 94 05/29/16 22:19 96.7 72 19 145/67 97 05/29/16 22:01 97.5 70 19 145/65 97 05/29/16 20:00 99.2 75 18 154/69 98 05/29/16 20:00 19 05/29/16 16:00 97.1 70 16 129/73 97 05/29/16 14:55 96.7 68 127/61 96 05/29/16 14:21 97.7 73 140/65 95 05/29/16 14:00 96.1 70 16 140/65 95 Result Diagram: 05/30/16 0455 05/30/16 0455 Laboratory Results Laboratory Tests Test 05/30/16 04:55 White Blood Count 0.6 TH/MM3 Red Blood Count 2.87 MIL/MM3 Hemoglobin 9.2 GM/DL Hematocrit 26.1 % Mean Corpuscular Volume 90.9 FL Mean Corpuscular Hemoglobin 32.1 PG Mean Corpuscular Hemoglobin 35.2 % Concent Red Cell Distribution Width 15.8 % Platelet Count 48 TH/MM3 Mean Platelet Volume 7.8 FL Neutrophils (%) (Auto) 31.8 % Lymphocytes (%) (Auto) 66.4 % Monocytes (%) (Auto) 1.4 % Eosinophils (%) (Auto) 0.1 % Basophils (%) (Auto) 0.3 % Neutrophils # (Auto) 0.2 TH/MM3 Lymphocytes # (Auto) 0.4 TH/MM3 Monocytes # (Auto) 0.0 TH/MM3 Eosinophils # (Auto) 0.0 TH/MM3 Basophils # (Auto) 0.0 TH/MM3 CBC Comment AUTO DIFF Differential Total Cells 100 Counted Neutrophils % (Manual) 30 % Band Neutrophils % 2 % Lymphocytes % 67 % Monocytes % 1 % Neutrophils # (Manual) 0.2 TH/MM3 Differential Comment FINAL DIFF MANUAL Platelet Estimate RARE Platelet Morphology Comment NORMAL Acanthocytes OCC Sodium Level 144 MEQ/L Potassium Level 4.2 MEQ/L Chloride Level 110 MEQ/L Carbon Dioxide Level 26.5 MEQ/L Anion Gap 8 MEQ/L Blood Urea Nitrogen 14 MG/DL Creatinine 0.61 MG/DL Estimat Glomerular Filtration 100 ML/MIN Rate Random Glucose 120 MG/DL Uric Acid 3.0 MG/DL Calcium Level 8.8 MG/DL Total Bilirubin 0.5 MG/DL Aspartate Amino Transf 19 U/L (AST/SGOT) Alanine Aminotransferase 25 U/L (ALT/SGPT) Alkaline Phosphatase 58 U/L Total Protein 6.6 GM/DL Albumin 3.4 GM/DL Administered Medications Medications (Trade) Dose Ordered Sig/Prashant Route PRN Reason Start Time Stop Time Status Last Admin Dose Admin Carisoprodol (Soma) 350 mg TID PRN PO PAIN 05/16/16 17:30 05/27/16 09:17 Furosemide (Lasix) 20 mg DAILY PO 05/17/16 09:00 05/26/16 08:20 Gabapentin (Neurontin) 300 mg TID PO 05/16/16 18:00 05/30/16 13:08 Levothyroxine Sodium (Synthroid) 25 mcg DAILY@06 PO 05/17/16 06:00 05/30/16 05:30 Potassium Chloride (KCl) 10 meq DAILY PO 05/17/16 09:00 05/30/16 08:13 Famotidine (Pepcid) 20 mg BID PO 05/16/16 21:00 05/30/16 08:13 IV Flush (NS Flush) 2 ml BID IV 05/16/16 21:00 05/30/16 08:14 Acetaminophen (Tylenol) 650 mg Q6HR PRN PO headache 05/17/16 06:30 05/29/16 21:10 Oxycodone/ Acetaminophen (Percocet 5-325 Mg) 1 tab Q4H PRN PO pain 1-5 05/20/16 10:00 05/25/16 15:44 Pantoprazole Sodium (Protonix) 40 mg DAILY PO 05/22/16 09:00 05/30/16 08:13 Oxycodone HCl 10 mg 10 mg Q4H PRN PO pain 6-10 05/21/16 16:00 05/30/16 10:46 Ceftriaxone Sodium/Sodium Chloride (Rocephin Inj/NS Inj) 100 ml @ 200 mls/hr Q24H IV 05/23/16 16:00 05/29/16 19:56 IV Flush (NS Flush) DAILY IVF 05/24/16 09:00 05/29/16 09:00 Heparin Sodium (Porcine) (Heparin Central Flush) DAILY IVF 05/24/16 09:00 05/28/16 09:20 Heparin Sodium (Porcine) (Heparin Central Flush) UNSCH PRN IVF SEE PROTOCOL 05/23/16 15:30 05/25/16 06:09 Docusate Sodium (Colace) 100 mg BID PO 05/24/16 11:00 05/30/16 08:13 Polyethylene Glycol 17 gm 17 gm DAILY PO 05/25/16 14:30 05/30/16 08:13 Sodium Chloride (NS 1000 ml Inj) 1,000 ml @ 100 mls/hr Q10H IV 05/26/16 09:30 05/30/16 07:30 Allopurinol 300 mg 300 mg DAILY PO 05/26/16 09:30 05/30/16 08:13 Cytarabine 189 mg/ Sodium Chloride 500 ml @ 20.833 mls/ hr Q24H IV 05/27/16 10:00 06/03/16 09:59 05/29/16 21:01 Granisetron HCl/ Dexamethasone Sodium Phosphate/ Sodium Chloride (Kytril Inj/ Decadron Inj/NS Inj) 56 ml @ 336 mls/hr Q24H IV 05/27/16 08:30 06/02/16 08:39 05/29/16 17:50 Morphine Sulfate (Morphine Inj) 2 mg Q2HR PRN IV PUSH SEVERE BREAKTHROUGH PAIN 05/27/16 08:45 05/30/16 13:07 Lactulose (Lactulose Liq) 30 ml DAILY PO 05/27/16 09:00 05/30/16 08:13 Diazepam (Valium) 10 mg Q12HR PO 05/28/16 09:00 05/30/16 08:13 Temazepam (Restoril) 15 mg HS PRN PO SLEEP 05/28/16 08:00 05/29/16 22:17 Objective Remarks GENERAL: Middle aged female, sitting up in bed, talking animatedly on the phone. SKIN: Warm and dry. huang catheter in place, right chest wall. site clean. no bleeding. HEAD: Normocephalic. EYES: No injection or drainage. NECK: Supple, trachea midline. CARDIOVASCULAR: Regular rate and rhythm RESPIRATORY: Breath sounds equal bilaterally. No accessory muscle use. GASTROINTESTINAL: Abdomen soft, non-tender, nondistended. EXTREMITIES: No cyanosis NEUROLOGICAL: No obvious focal deficit. Awake, alert, and oriented x3. Assessment/Plan Problem List: (1) AML (acute myeloid leukemia) Status: Acute Plan: 05/30/16: D4 chemotherapy. no transfusion today. 05/29/16: D3 chemotherapy. Tolerated well Blood counts trending lower. Transfuse PRBC 2U. CSF cytology negative. 05/28/16: Tolerated chemo well, no significant side effect. Blood counts started to trend down. 05/27/16: D1. Albina-C + Idarubicin. Discussed 7+3, IDARUBICIN and Cytarabine. CSF will determine if IT therapy needed.--CSF cytology pending. (2) Pancytopenia Status: Acute Plan: We will transfuse for platelets less than 10k and a Hgb of less than 7. Hx: Pt had a hemorrhoidectomy three weeks ago and has had some rectal bleeding since that time. She presented to the ER on 05/16/16 with complaints of SOB and chest tightness and was found to be quite anemic with a Hgb of 5.8. She was transfused 2 units at that time. Hematology was consulted on 05/17/16 for pancytopenia. Pt had imaging done to r/o a lymphoproliferative process. A CT scan of the CAP was essentially negative for this. A bone marrow biopsy taken on 05/20/16 confirmed the pathology of acute myeloid leukemia. The monocytic component does not appear to comprise the required 20% of marrow cellularity for a diagnosis of acute myelomonocytic leukemia. (3) Rectal bleed Status: Resolved Plan: EGD/colonoscopy on 05/20/15 showed gastritis, irregular Z line and rectal nodule. Path report negative for malignancy. --GI following. -- Had hemorrhoid surgery three weeks ago with Dr. Meese. -- Controlled. No new bleeding. (4) presence of pain pump Status: Chronic Plan: --patient with intrathecal pain pump --managed by Dr. Omer outpatient --due for refill around 06/06. next week will arrange for sand operator to pecan picker refill from Dr. Omer's office. Dr. Lopez's nurses to administer. (5) Anxiety Status: Acute Plan: Ativan not helping. Switch her back to valium. Add temazepam for sleep. Assessment 61 y/o female with pancytopenia, suspected AML Plan 1. Idarubicin + Albina C day 4 today 2. monitor counts 3. no transfusion today. Attending Statement The exam, history, and the medical decision-making described in the above note were completed with the assistance of the mid-level provider. I reviewed and agree with the findings presented. I attest that I had a [id number] encounter with the patient on the same day, and personally performed and documented my assessment and findings in the medical record. Tolerated the chemotx very well. hgb trended up with transfusion. Continue chemotx protocol. Monitor CBC and transfuse prn. Radha Lawrence May 30, 2016 14:07 Ryan Tripp MD May 30, 2016 17:27
[2016-05-30 16:00] VITALS: BP 152/72; PULSE 81; RESP 18; TEMP 96.6; O2SAT 96
[2016-05-30] MEDS: cefTRIAXone INJ 1,000 MG in SODIUM CHLORIDE 0.9% INJ 100 ML IV SCH (17:19)
[2016-05-30] MEDS: GRANISETRON INJ 1 MG, DEXAMETHASONE INJ 20 MG in SODIUM CHLORIDE 0.9% INJ 50 ML IV SCH (17:25)
[2016-05-30 20:00] VITALS: BP 155/79; PULSE 69; RESP 17; TEMP 98.1; O2SAT 98
[2016-05-30] MEDS: TEMAZEPAM 15 MG CAP PO PRN (21:51)
[2016-05-30] MEDS: CYTARABINE IV SCH (22:27)
[2016-05-30] MEDS: SODIUM CHLORID 0.9% IV SCH (22:27)
[2016-05-31] VITALS: BP 152/67; PULSE 66; RESP 17; TEMP 98.3; O2SAT 96
[2016-05-31] MEDS: LACTATED RINGER'S 1000 ML IV SCH (01:15)
[2016-05-31 04:00] VITALS: BP 152/70; PULSE 64; RESP 17; TEMP 98.1; O2SAT 96
[2016-05-31] MEDS: LEVOTHYROXINE SODIUM 25 MCG TAB PO SCH (04:48)
[2016-05-31] MEDS: SODIUM CHLOR 0.9% 1000 ML INJ 1,000 ML IV SCH ×2 (04:49→20:08)
[2016-05-31 04:52] LABS: HEMATOCRIT 26.8 % (35.0-46.0); MEAN CELL VOLUME 93.5 FL (80.0-100.0); MEAN CORPUSCULAR HEMOGLOBIN 32.5 PG (27.0-34.0); MEAN CORPUSCULAR HGB CONC 34.7 % (32.0-36.0); PLATELET COUNT 49 TH/MM3 (150-450); RED BLOOD COUNT 2.87 MIL/MM3 (4.00-5.30); RED CELL DISTRIBUTION WIDTH 15.2 % (11.6-17.2); WHITE BLOOD COUNT 0.5 TH/MM3 (4.0-11.0)
[2016-05-31 04:56] LABS: HEMO FLAGS AUTO DIFF
[2016-05-31] MEDS: POTASSIUM CHLORIDE 10 MEQ CAP PO SCH (07:54)
[2016-05-31] MEDS: DIAZEPAM 10 MG TAB PO SCH ×2 (07:54→20:07)
[2016-05-31] MEDS: GABAPENTIN 300 MG CAP PO SCH ×3 (07:54→18:22)
[2016-05-31] MEDS: LACTULOSE SYRUP 20 GM/30 ML CUP PO SCH (07:55)
[2016-05-31] MEDS: POLYETHYLENE GLYCOL 17 GM PKG PO SCH (07:55)
[2016-05-31] MEDS: DOCUSATE SODIUM 100 MG CAP PO SCH ×2 (07:55→20:07)
[2016-05-31] MEDS: FUROSEMIDE 20 MG TAB PO SCH (07:55)
[2016-05-31] MEDS: PANTOPRAZOLE SOD 40 MG DELAYED RELEASE TAB PO SCH (07:55)
[2016-05-31] MEDS: ALLOPURINOL 300 MG TAB PO SCH (07:55)
[2016-05-31] MEDS: SODIUM CHLORIDE 0.9% FLUSH 5 ML FLUSH IVF SCH (07:56)
[2016-05-31] MEDS: SODIUM CHLORIDE 0.9% FLUSH 5 ML FLUSH IV SCH ×2 (07:56→20:46)
[2016-05-31 08:00] VITALS: BP 126/65; PULSE 63; RESP 18; TEMP 96.5; O2SAT 95
[2016-05-31] MEDS: FAMOTIDINE 20 MG TAB PO SCH ×2 (08:00→20:07)
[2016-05-31 08:16] LABS: BANDS 9 % (0-6); NEUTROPHIL # MANUAL DIFF 0.2 TH/MM3 (1.8-7.7); PLATELET ESTIMATE SMEAR LOW (NORMAL); PLATELET MORPHOLOGY NORMAL (NORMAL); POLYS (SEG NEUTROPHILS) 27 % (16-70); SCAN/DIFF FINAL DIFF MANUAL; WBC DIFF SAMPLE 100
--- NOTE | 2016-05-31 09:52 | HHI.PR ---
Subjective Remarks Follow up anemia, AML, UTI. Objective Vitals Vital Signs Date Time Temp Pulse Resp B/P Pulse Ox O2 Delivery O2 Flow Rate FiO2 05/31/16 08:00 96.5 63 18 126/65 95 05/31/16 04:30 15 05/31/16 04:00 98.1 64 17 152/70 96 05/31/16 00:00 98.3 66 17 152/67 96 05/30/16 20:00 98.1 69 17 155/79 98 05/30/16 16:00 96.6 81 18 152/72 96 05/30/16 12:00 96.7 67 18 165/74 95 I/O 05/30/16 05/30/16 05/30/16 05/31/16 05/31/16 05/31/16 07:00 15:00 23:00 07:00 15:00 23:00 Intake Total 480 ml 1200 ml 1868 ml 2451 ml 240 ml Balance 480 ml 1200 ml 1868 ml 2451 ml 240 ml Intake Oral 480 ml 1200 ml 480 ml 1200 ml 240 ml IV Total 1388 ml 1251 ml # Voids 2 6 2 4 # Bowel Movements 0 1 0 Result Diagram: 05/31/16 0336 05/30/16 0455 Imaging Last Impressions Lumbar Puncture Fluoroscopy 05/23/16 0000 Signed Impressions: Service Date/Time: Monday, May 23, 2016 14:16 - CONCLUSION: Uncomplicated fluoroscopically guided lumbar puncture. Bubba Cherry MD Catheter Placement X-Ray 05/23/16 0000 Signed Impressions: Service Date/Time: Monday, May 23, 2016 14:16 - CONCLUSION: Uncomplicated Donaldson catheter placement as above. Bubba Cherry MD Bone Biopsy CT 05/20/16 0846 Signed Impressions: Service Date/Time: Friday, May 20, 2016 09:13 - CONCLUSION: 1. Uncomplicated CT guided bone marrow aspirate. 2. Uncomplicated CT guided bone marrow biopsy. Yazan Saucedo MD Head CT 05/20/16 0000 Signed Impressions: Service Date/Time: Friday, May 20, 2016 15:16 - CONCLUSION: Normal examination for a patient of this age. No significant change has occurred. Emilio Thomas MD Chest CT 05/17/16 0000 Signed Impressions: Service Date/Time: Tuesday, May 17, 2016 15:14 - CONCLUSION: 1. 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 There are trace to very small bilateral pleural effusions and mild cardiomegaly noted. 2. No lobar consolidation. 3. Upper limits of normal to mildly enlarged mediastinal and bilateral hilar lymph nodes, nonspecific but presumably reactive. Bravo Mendez MD Abdomen/Pelvis CT 05/17/16 0000 Signed Impressions: Service Date/Time: Tuesday, May 17, 2016 15:18 - CONCLUSION: 1. Heterogeneous liver, nonspecific but possibly fatty infiltration, hepatocellular disease or a combination of the two. Nothing focal. 2. Nonspecific distention of the gallbladder. No stone, perceptible inflammatory changes or ductal dilatation demonstrated. 3. No obstruction, inflammatory changes or perceptible mass of the GI tract. Bravo Mendez MD Chest X-Ray 05/16/16 0000 Signed Impressions: Service Date/Time: Monday, May 16, 2016 19:23 - CONCLUSION: No acute disease. Minimal interstitial densities likely chronic. Kilo Cotto MD Objective Remarks General: No acute distress. Heart: Regular rate and rhythm. No murmur. Lungs: Clear to auscultation bilaterally. No wheezes, rales, or rhonchi. Breathing is nonlabored. Abdomen: Soft, nontender, nondistended. Extremities: No lower extremity edema. Psych: Alert and oriented. Procedures EGD/ colonoscopy Bone marrow biopsy Urinary Catheter: No Vascular Central Line Catheter: No A/P Problem List: (1) Pancytopenia ICD Code: D61.818 Status: Acute (2) GI bleed ICD Code: K92.2 Status: Acute (3) AML (acute myeloid leukemia) ICD Code: C92.00 Status: Acute (4) Symptomatic anemia ICD Code: D64.9 Status: Acute (5) UTI (urinary tract infection) ICD Code: N39.0 Status: Acute Assessment and Plan 1. AML: Status post bone marrow biopsy. Appreciate oncology management. Port placed 05/23/15. Chemotherapy per oncology, first dose was given 05/27/16. Continue IV fluids, allopurinol to help prevent tumor lysis syndrome. Monitor labs. H/H improved following transfusion. Neutropenic precautions. 2. Symptomatic anemia, GI bleed: Patient had hemorrhoidectomy 3 weeks ago. No active bleeding since the procedure. Hemoccult was positive in the ER. Appreciate GI recommendations. Status post EGD/colonoscopy on 05/20/15 which showed gastritis, rectal ulcer. Continue Protonix. Monitor labs and transfuse if necessary. H/H improved following transfusion on 05/29/16. 3. Headache: CT of the brain is negative. Status post lumbar puncture. Continue pain control as needed. Consider MRI if no improvement. 4. Chronic back pain: Stable. Patient has implanted pain pump. 5. Anxiety: Ativan as needed. 6. Constipation: Resolved. Continue bowel regimen. 7. GI prophylaxis: Pepcid, Protonix. 8. DVT prophylaxis: SCDs. Chemical prophylaxis contraindicated secondary to indwelling, anemia. 9. UTI: Urine culture growing Klebsiella Pneumoniae. Completed course of Rocephin. 10. Hypothyroidism: Continue Synthroid. Discharge Planning Per oncology. Problem Qualifiers (1) GI bleed: Qualified Code: K92.2 - Gastrointestinal hemorrhage, unspecified gastrointestinal hemorrhage type Aurelio Botello MD May 31, 2016 09:52
[2016-05-31] MEDS: MORPHINE SULFATE 4 MG/ML INJ IV PUSH PRN ×2 (11:13→16:25)
--- NOTE | 2016-05-31 11:57 | PD.ONC.PN ---
Subjective Subjective Remarks Afebrile overnight. Patient resting comfortably. Tolerating chemotherapy. She states chronic pain is ok today, well controlled. No nausea. Good appetite. No bleeding. Objective Data Date Time Temp Pulse Resp B/P Pulse Ox O2 Delivery O2 Flow Rate FiO2 05/31/16 08:00 96.5 63 18 126/65 95 05/31/16 04:30 15 05/31/16 04:00 98.1 64 17 152/70 96 05/31/16 00:00 98.3 66 17 152/67 96 05/30/16 20:00 98.1 69 17 155/79 98 05/30/16 16:00 96.6 81 18 152/72 96 05/30/16 12:00 96.7 67 18 165/74 95 05/31/16 05/31/16 05/31/16 07:00 15:00 23:00 Intake Total 2451 ml 240 ml Balance 2451 ml 240 ml Result Diagram: 05/31/16 0336 05/30/16 0455 Laboratory Results Laboratory Tests Test 05/31/16 03:36 White Blood Count 0.5 TH/MM3 Red Blood Count 2.87 MIL/MM3 Hemoglobin 9.3 GM/DL Hematocrit 26.8 % Mean Corpuscular Volume 93.5 FL Mean Corpuscular Hemoglobin 32.5 PG Mean Corpuscular Hemoglobin 34.7 % Concent Red Cell Distribution Width 15.2 % Platelet Count 49 TH/MM3 Mean Platelet Volume 7.7 FL Neutrophils (%) (Auto) % Lymphocytes (%) (Auto) % Monocytes (%) (Auto) % Eosinophils (%) (Auto) % Basophils (%) (Auto) % Neutrophils # (Auto) TH/MM3 Lymphocytes # (Auto) TH/MM3 Monocytes # (Auto) TH/MM3 Eosinophils # (Auto) TH/MM3 Basophils # (Auto) TH/MM3 CBC Comment AUTO DIFF Differential Total Cells 100 Counted Neutrophils % (Manual) 27 % Band Neutrophils % 9 % Lymphocytes % 63 % Monocytes % 1 % Neutrophils # (Manual) 0.2 TH/MM3 Differential Comment FINAL DIFF MANUAL Platelet Estimate LOW Platelet Morphology Comment NORMAL Administered Medications Medications (Trade) Dose Ordered Sig/Prashant Route PRN Reason Start Time Stop Time Status Last Admin Dose Admin Carisoprodol (Soma) 350 mg TID PRN PO PAIN 05/16/16 17:30 05/27/16 09:17 Furosemide (Lasix) 20 mg DAILY PO 05/17/16 09:00 05/31/16 07:55 Gabapentin (Neurontin) 300 mg TID PO 05/16/16 18:00 05/31/16 07:54 Levothyroxine Sodium (Synthroid) 25 mcg DAILY@06 PO 05/17/16 06:00 05/31/16 04:48 Potassium Chloride (KCl) 10 meq DAILY PO 05/17/16 09:00 05/31/16 07:54 Famotidine (Pepcid) 20 mg BID PO 05/16/16 21:00 05/31/16 08:00 IV Flush (NS Flush) 2 ml BID IV 05/16/16 21:00 05/30/16 20:36 Acetaminophen (Tylenol) 650 mg Q6HR PRN PO headache 05/17/16 06:30 05/29/16 21:10 Oxycodone/ Acetaminophen (Percocet 5-325 Mg) 1 tab Q4H PRN PO pain 1-5 05/20/16 10:00 05/25/16 15:44 Pantoprazole Sodium (Protonix) 40 mg DAILY PO 05/22/16 09:00 05/31/16 07:55 Oxycodone HCl (Roxicodone) 10 mg Q4H PRN PO pain 6-10 05/21/16 16:00 05/31/16 03:30 IV Flush (NS Flush) DAILY IVF 05/24/16 09:00 05/29/16 09:00 Heparin Sodium (Porcine) (Heparin Central Flush) DAILY IVF 05/24/16 09:00 05/30/16 18:10 Heparin Sodium (Porcine) (Heparin Central Flush) UNSCH PRN IVF SEE PROTOCOL 05/23/16 15:30 05/25/16 06:09 Docusate Sodium (Colace) 100 mg BID PO 05/24/16 11:00 05/31/16 07:55 Polyethylene Glycol 17 gm 17 gm DAILY PO 05/25/16 14:30 05/31/16 07:55 Sodium Chloride (NS 1000 ml Inj) 1,000 ml @ 100 mls/hr Q10H IV 05/26/16 09:30 05/31/16 04:49 Allopurinol 300 mg 300 mg DAILY PO 05/26/16 09:30 05/31/16 07:55 Cytarabine 189 mg/ Sodium Chloride 500 ml @ 20.833 mls/ hr Q24H IV 05/27/16 10:00 06/03/16 09:59 05/30/16 22:27 Granisetron HCl/ Dexamethasone Sodium Phosphate/ Sodium Chloride (Kytril Inj/ Decadron Inj/NS Inj) 56 ml @ 336 mls/hr Q24H IV 05/27/16 08:30 06/02/16 08:39 05/30/16 17:25 Morphine Sulfate (Morphine Inj) 2 mg Q2HR PRN IV PUSH SEVERE BREAKTHROUGH PAIN 05/27/16 08:45 05/31/16 11:13 Lactulose (Lactulose Liq) 30 ml DAILY PO 05/27/16 09:00 05/31/16 07:55 Diazepam (Valium) 10 mg Q12HR PO 05/28/16 09:00 05/31/16 07:54 Temazepam (Restoril) 15 mg HS PRN PO SLEEP 05/28/16 08:00 05/30/16 21:51 Objective Remarks GENERAL: Middle aged female, she is sitting up in bed, son at bedside. She appears well groomed, well rested and in nad. SKIN: Warm and dry. huang catheter in place, site clean. HEAD: Normocephalic. EYES: No injection or drainage. NECK: Supple, trachea midline. CARDIOVASCULAR: Regular rate and rhythm RESPIRATORY: Breath sounds equal bilaterally. No accessory muscle use. GASTROINTESTINAL: Abdomen soft, non-tender, nondistended. EXTREMITIES: No cyanosis NEUROLOGICAL: No obvious focal deficit. Awake, alert, and oriented x3. Assessment/Plan Problem List: (1) AML (acute myeloid leukemia) Status: Acute Plan: 05/31/16:D5. no events. 05/30/16: D4 chemotherapy. no transfusion today. 05/29/16: D3 chemotherapy. Tolerated well Blood counts trending lower. Transfuse PRBC 2U. CSF cytology negative. 05/28/16: Tolerated chemo well, no significant side effect. Blood counts started to trend down. 05/27/16: D1. Albina-C + Idarubicin. Discussed 7+3, IDARUBICIN and Cytarabine. CSF will determine if IT therapy needed.--CSF cytology pending. (2) Pancytopenia Status: Acute Plan: We will transfuse for platelets less than 10k and a Hgb of less than 7. Hx: Pt had a hemorrhoidectomy three weeks ago and has had some rectal bleeding since that time. She presented to the ER on 05/16/16 with complaints of SOB and chest tightness and was found to be quite anemic with a Hgb of 5.8. She was transfused 2 units at that time. Hematology was consulted on 05/17/16 for pancytopenia. Pt had imaging done to r/o a lymphoproliferative process. A CT scan of the CAP was essentially negative for this. A bone marrow biopsy taken on 05/20/16 confirmed the pathology of acute myeloid leukemia. The monocytic component does not appear to comprise the required 20% of marrow cellularity for a diagnosis of acute myelomonocytic leukemia. (3) Rectal bleed Status: Resolved Plan: EGD/colonoscopy on 05/20/15 showed gastritis, irregular Z line and rectal nodule. Path report negative for malignancy. --GI following. -- Had hemorrhoid surgery three weeks ago with Dr. Schwartz. -- Controlled. No new bleeding. (4) presence of pain pump Status: Chronic Plan: --patient with intrathecal pain pump --managed by Dr. Omer outpatient --due for refill around 06/06. next week will arrange for special education case manager to pick up man refill from Dr. Omer's office. Dr. Lopez's nurses to administer. Assessment 61 y/o female with pancytopenia, suspected AML Plan 1. Idarubicin + Albina C day 5 today 2. monitor counts 3. no transfusion today. Radha Lawrence May 31, 2016 11:57
[2016-05-31 12:00] VITALS: BP 164/77; PULSE 66; RESP 16; TEMP 97; O2SAT 94
[2016-05-31 16:00] VITALS: BP 158/68; PULSE 70; RESP 16; TEMP 98.1; O2SAT 95
[2016-05-31 20:00] VITALS: BP 159/74; PULSE 62; RESP 18; TEMP 96.7; O2SAT 95
[2016-05-31] MEDS: GRANISETRON INJ 1 MG, DEXAMETHASONE INJ 20 MG in SODIUM CHLORIDE 0.9% INJ 50 ML IV SCH (22:36)
[2016-05-31] MEDS: SODIUM CHLORID 0.9% IV SCH (23:36)
[2016-05-31] MEDS: CYTARABINE IV SCH (23:36)
[2016-06-01] VITALS: BP 116/57; PULSE 67; RESP 18; TEMP 97.1; O2SAT 94
[2016-06-01] MEDS: LACTATED RINGER'S 1000 ML IV SCH ×2 (01:15→20:41)
[2016-06-01] MEDS: SODIUM CHLOR 0.9% 1000 ML INJ 1,000 ML IV SCH ×3 (03:58→20:37)
[2016-06-01 04:00] VITALS: BP 146/69; PULSE 70; RESP 18; TEMP 97; O2SAT 94
[2016-06-01 04:50] LABS: HEMATOCRIT 26.9 % (35.0-46.0); MEAN CELL VOLUME 92.5 FL (80.0-100.0); MEAN CORPUSCULAR HEMOGLOBIN 31.9 PG (27.0-34.0); MEAN CORPUSCULAR HGB CONC 34.5 % (32.0-36.0); PLATELET COUNT 40 TH/MM3 (150-450); RED BLOOD COUNT 2.91 MIL/MM3 (4.00-5.30); RED CELL DISTRIBUTION WIDTH 15.3 % (11.6-17.2); WHITE BLOOD COUNT 0.4 TH/MM3 (4.0-11.0)
[2016-06-01 05:12] LABS: HEMO FLAGS AUTO DIFF
[2016-06-01] MEDS: LEVOTHYROXINE SODIUM 25 MCG TAB PO SCH (06:00)
[2016-06-01] MEDS: FUROSEMIDE 20 MG TAB PO SCH (07:21)
[2016-06-01] MEDS: DOCUSATE SODIUM 100 MG CAP PO SCH ×2 (07:21→20:38)
[2016-06-01] MEDS: GABAPENTIN 300 MG CAP PO SCH ×3 (07:21→17:10)
[2016-06-01] MEDS: ALLOPURINOL 300 MG TAB PO SCH (07:21)
[2016-06-01] MEDS: PANTOPRAZOLE SOD 40 MG DELAYED RELEASE TAB PO SCH (07:21)
[2016-06-01] MEDS: FAMOTIDINE 20 MG TAB PO SCH ×2 (07:21→20:38)
[2016-06-01] MEDS: LACTULOSE SYRUP 20 GM/30 ML CUP PO SCH (07:21)
[2016-06-01] MEDS: POLYETHYLENE GLYCOL 17 GM PKG PO SCH (07:21)
[2016-06-01] MEDS: DIAZEPAM 10 MG TAB PO SCH ×2 (07:21→20:38)
[2016-06-01] MEDS: SODIUM CHLORIDE 0.9% FLUSH 5 ML FLUSH IV SCH ×2 (07:22→20:39)
[2016-06-01] MEDS: POTASSIUM CHLORIDE 10 MEQ CAP PO SCH (07:22)
[2016-06-01] MEDS: SODIUM CHLORIDE 0.9% FLUSH 5 ML FLUSH IVF SCH (07:22)
[2016-06-01 08:00] VITALS: BP 120/58; PULSE 77; RESP 18; TEMP 96.9; O2SAT 93
[2016-06-01] MEDS: ONDANSETRON HCL 4 MG/2 ML VIAL IV PRN (09:07)
[2016-06-01] MEDS: MORPHINE SULFATE 4 MG/ML INJ IV PUSH PRN ×2 (09:08→17:20)
--- NOTE | 2016-06-01 09:56 | HHI.PR ---
Subjective Remarks Follow up anemia, AML, UTI. The patient states that she feels more tired today. Pain is about the same. Some nausea, but no vomiting. Objective Vitals Vital Signs Date Time Temp Pulse Resp B/P Pulse Ox O2 Delivery O2 Flow Rate FiO2 06/01/16 08:00 96.9 77 18 120/58 93 06/01/16 04:50 16 06/01/16 04:00 97.0 70 18 146/69 94 06/01/16 00:00 97.1 67 18 116/57 94 05/31/16 20:00 96.7 62 18 159/74 95 05/31/16 16:00 98.1 70 16 158/68 95 05/31/16 12:00 97.0 66 16 164/77 94 I/O 05/31/16 05/31/16 05/31/16 06/01/16 06/01/16 06/01/16 07:00 15:00 23:00 07:00 15:00 23:00 Intake Total 2451 ml 840 ml 1918 ml 1930 ml Balance 2451 ml 840 ml 1918 ml 1930 ml Intake Oral 1200 ml 840 ml 480 ml 480 ml IV Total 1251 ml 1438 ml 1450 ml # Voids 4 4 3 # Bowel Movements 0 1 Result Diagram: 06/01/16 0400 05/30/16 0455 Imaging Last Impressions Lumbar Puncture Fluoroscopy 05/23/16 0000 Signed Impressions: Service Date/Time: Monday, May 23, 2016 14:16 - CONCLUSION: Uncomplicated fluoroscopically guided lumbar puncture. Bubba Cherry MD Catheter Placement X-Ray 05/23/16 0000 Signed Impressions: Service Date/Time: Monday, May 23, 2016 14:16 - CONCLUSION: Uncomplicated Donaldson catheter placement as above. Bubba Cherry MD Bone Biopsy CT 05/20/16 0846 Signed Impressions: Service Date/Time: Friday, May 20, 2016 09:13 - CONCLUSION: 1. Uncomplicated CT guided bone marrow aspirate. 2. Uncomplicated CT guided bone marrow biopsy. Yazan Saucedo MD Head CT 05/20/16 0000 Signed Impressions: Service Date/Time: Friday, May 20, 2016 15:16 - CONCLUSION: Normal examination for a patient of this age. No significant change has occurred. Emilio Thomas MD Chest CT 05/17/16 0000 Signed Impressions: Service Date/Time: Tuesday, May 17, 2016 15:14 - CONCLUSION: 1. 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 There are trace to very small bilateral pleural effusions and mild cardiomegaly noted. 2. No lobar consolidation. 3. Upper limits of normal to mildly enlarged mediastinal and bilateral hilar lymph nodes, nonspecific but presumably reactive. Bravo Mendez MD Abdomen/Pelvis CT 05/17/16 0000 Signed Impressions: Service Date/Time: Tuesday, May 17, 2016 15:18 - CONCLUSION: 1. Heterogeneous liver, nonspecific but possibly fatty infiltration, hepatocellular disease or a combination of the two. Nothing focal. 2. Nonspecific distention of the gallbladder. No stone, perceptible inflammatory changes or ductal dilatation demonstrated. 3. No obstruction, inflammatory changes or perceptible mass of the GI tract. Bravo Mendez MD Chest X-Ray 05/16/16 0000 Signed Impressions: Service Date/Time: Monday, May 16, 2016 19:23 - CONCLUSION: No acute disease. Minimal interstitial densities likely chronic. Kilo Cotto MD Objective Remarks General: No acute distress. Heart: Regular rate and rhythm. No murmur. Lungs: Clear to auscultation bilaterally. No wheezes, rales, or rhonchi. Breathing is nonlabored. Abdomen: Soft, nontender, nondistended. Extremities: No lower extremity edema. Psych: Alert and oriented. Procedures EGD/ colonoscopy Bone marrow biopsy Urinary Catheter: No Vascular Central Line Catheter: No A/P Problem List: (1) Pancytopenia ICD Code: D61.818 Status: Acute (2) GI bleed ICD Code: K92.2 Status: Acute (3) AML (acute myeloid leukemia) ICD Code: C92.00 Status: Acute (4) Symptomatic anemia ICD Code: D64.9 Status: Acute (5) UTI (urinary tract infection) ICD Code: N39.0 Status: Acute Assessment and Plan Reviewed/updated 06/01/16. No change. Continue chemotherapy per oncology. 1. AML: Status post bone marrow biopsy. Appreciate oncology management. Port placed 05/23/15. Chemotherapy per oncology, first dose was given 05/27/16. Continue IV fluids, allopurinol to help prevent tumor lysis syndrome. Monitor labs. H/H improved following transfusion. Neutropenic precautions. 2. Symptomatic anemia, GI bleed: Patient had hemorrhoidectomy 3 weeks ago. No active bleeding since the procedure. Hemoccult was positive in the ER. Appreciate GI recommendations. Status post EGD/colonoscopy on 05/20/15 which showed gastritis, rectal ulcer. Continue Protonix. Monitor labs and transfuse if necessary. H/H improved following transfusion on 05/29/16. 3. Headache: Improved. CT of the brain is negative. Status post lumbar puncture. Continue pain control as needed. 4. Chronic back pain: Stable. Patient has implanted pain pump. 5. Anxiety: Ativan as needed. 6. Constipation: Resolved. Continue bowel regimen. 7. GI prophylaxis: Pepcid, Protonix. 8. DVT prophylaxis: SCDs. Chemical prophylaxis contraindicated secondary to indwelling, anemia. 9. UTI: Urine culture growing Klebsiella Pneumoniae. Completed course of Rocephin. 10. Hypothyroidism: Continue Synthroid. Discharge Planning Per oncology. Problem Qualifiers (1) GI bleed: Qualified Code: K92.2 - Gastrointestinal hemorrhage, unspecified gastrointestinal hemorrhage type Aurelio Botello MD Jun 01, 2016 09:56
[2016-06-01 10:00] LABS: EOSINOPHILS 2 % (0-4); NEUTROPHIL # MANUAL DIFF 0.1 TH/MM3 (1.8-7.7); POLYS (SEG NEUTROPHILS) 36 % (16-70); WBC DIFF SAMPLE 50
[2016-06-01 10:01] LABS: PLATELET ESTIMATE SMEAR LOW (NORMAL); PLATELET MORPHOLOGY NORMAL (NORMAL); ROULEAUX PRESENT (NORMAL); SCAN/DIFF FINAL DIFF MANUAL
--- NOTE | 2016-06-01 11:36 | PD.ONC.PN ---
Subjective Subjective Remarks Afebrile overnight. Patient feeling fatigued and nauseated today. No abdominal pain. No bleeding. Objective Data Date Time Temp Pulse Resp B/P Pulse Ox O2 Delivery O2 Flow Rate FiO2 06/01/16 08:00 96.9 77 18 120/58 93 06/01/16 04:50 16 06/01/16 04:00 97.0 70 18 146/69 94 06/01/16 00:00 97.1 67 18 116/57 94 05/31/16 20:00 96.7 62 18 159/74 95 05/31/16 16:00 98.1 70 16 158/68 95 05/31/16 12:00 97.0 66 16 164/77 94 Result Diagram: 06/01/16 0400 05/30/16 0455 Laboratory Results Laboratory Tests Test 06/01/16 04:00 White Blood Count 0.4 TH/MM3 Red Blood Count 2.91 MIL/MM3 Hemoglobin 9.3 GM/DL Hematocrit 26.9 % Mean Corpuscular Volume 92.5 FL Mean Corpuscular Hemoglobin 31.9 PG Mean Corpuscular Hemoglobin 34.5 % Concent Red Cell Distribution Width 15.3 % Platelet Count 40 TH/MM3 Mean Platelet Volume 7.4 FL Neutrophils (%) (Auto) % Lymphocytes (%) (Auto) % Monocytes (%) (Auto) % Eosinophils (%) (Auto) % Basophils (%) (Auto) % Neutrophils # (Auto) TH/MM3 Lymphocytes # (Auto) TH/MM3 Monocytes # (Auto) TH/MM3 Eosinophils # (Auto) TH/MM3 Basophils # (Auto) TH/MM3 CBC Comment AUTO DIFF Differential Total Cells 50 Counted Neutrophils % (Manual) 36 % Lymphocytes % 62 % Eosinophils % 2 % Neutrophils # (Manual) 0.1 TH/MM3 Differential Comment FINAL DIFF MANUAL Platelet Estimate LOW Platelet Morphology Comment NORMAL Rouleau PRESENT Administered Medications Medications (Trade) Dose Ordered Sig/Prashant Route PRN Reason Start Time Stop Time Status Last Admin Dose Admin Carisoprodol (Soma) 350 mg TID PRN PO PAIN 05/16/16 17:30 05/27/16 09:17 Furosemide (Lasix) 20 mg DAILY PO 05/17/16 09:00 06/01/16 07:21 Gabapentin (Neurontin) 300 mg TID PO 05/16/16 18:00 06/01/16 07:21 Levothyroxine Sodium (Synthroid) 25 mcg DAILY@06 PO 05/17/16 06:00 06/01/16 06:00 Potassium Chloride (KCl) 10 meq DAILY PO 05/17/16 09:00 06/01/16 07:22 Famotidine (Pepcid) 20 mg BID PO 05/16/16 21:00 06/01/16 07:21 IV Flush (NS Flush) 2 ml BID IV 05/16/16 21:00 05/30/16 20:36 Ondansetron HCl (Zofran Inj) 4 mg Q6H PRN IV NAUSEA 05/16/16 17:45 06/01/16 09:07 Acetaminophen (Tylenol) 650 mg Q6HR PRN PO headache 05/17/16 06:30 05/29/16 21:10 Oxycodone/ Acetaminophen (Percocet 5-325 Mg) 1 tab Q4H PRN PO pain 1-5 05/20/16 10:00 05/25/16 15:44 Pantoprazole Sodium (Protonix) 40 mg DAILY PO 05/22/16 09:00 06/01/16 07:21 Oxycodone HCl (Roxicodone) 10 mg Q4H PRN PO pain 6-10 05/21/16 16:00 06/01/16 03:58 IV Flush (NS Flush) DAILY IVF 05/24/16 09:00 05/29/16 09:00 Heparin Sodium (Porcine) (Heparin Central Flush) DAILY IVF 05/24/16 09:00 05/30/16 18:10 Heparin Sodium (Porcine) (Heparin Central Flush) UNSCH PRN IVF SEE PROTOCOL 05/23/16 15:30 05/25/16 06:09 Docusate Sodium (Colace) 100 mg BID PO 05/24/16 11:00 06/01/16 07:21 Polyethylene Glycol 17 gm 17 gm DAILY PO 05/25/16 14:30 06/01/16 07:21 Sodium Chloride (NS 1000 ml Inj) 1,000 ml @ 100 mls/hr Q10H IV 05/26/16 09:30 06/01/16 03:58 Allopurinol 300 mg 300 mg DAILY PO 05/26/16 09:30 06/01/16 07:21 Cytarabine 189 mg/ Sodium Chloride 500 ml @ 20.833 mls/ hr Q24H IV 05/27/16 10:00 06/03/16 09:59 05/31/16 23:36 Granisetron HCl/ Dexamethasone Sodium Phosphate/ Sodium Chloride (Kytril Inj/ Decadron Inj/NS Inj) 56 ml @ 336 mls/hr Q24H IV 05/27/16 08:30 06/02/16 08:39 05/31/16 22:36 Morphine Sulfate (Morphine Inj) 2 mg Q2HR PRN IV PUSH SEVERE BREAKTHROUGH PAIN 05/27/16 08:45 06/01/16 09:08 Lactulose (Lactulose Liq) 30 ml DAILY PO 05/27/16 09:00 06/01/16 07:21 Diazepam (Valium) 10 mg Q12HR PO 05/28/16 09:00 06/01/16 07:21 Temazepam (Restoril) 15 mg HS PRN PO SLEEP 05/28/16 08:00 05/30/16 21:51 Objective Remarks GENERAL: Middle aged female, sitting up in bed in [facility]. SKIN: Warm and dry. huang catheter right chest wall. HEAD: Normocephalic. EYES: No injection or drainage. NECK: Supple, trachea midline. CARDIOVASCULAR: Regular rate and rhythm RESPIRATORY: Breath sounds equal bilaterally. No accessory muscle use. GASTROINTESTINAL: Abdomen soft, non-tender, nondistended. EXTREMITIES: No cyanosis NEUROLOGICAL: No obvious focal deficit. Awake, alert, and oriented x3. Assessment/Plan Problem List: (1) AML (acute myeloid leukemia) Status: Acute Plan: 06/01/16: nauseated. otherwise no events. continue chemo. 05/31/16:D5. no events. 05/30/16: D4 chemotherapy. no transfusion today. 05/29/16: D3 chemotherapy. Tolerated well Blood counts trending lower. Transfuse PRBC 2U. CSF cytology negative. 05/28/16: Tolerated chemo well, no significant side effect. Blood counts started to trend down. 05/27/16: D1. Albina-C + Idarubicin. (2) Pancytopenia Status: Acute Plan: transfuse for platelets less than 10k and a Hgb of less than 7. (3) Rectal bleed Status: Resolved Plan: -- Controlled. No new bleeding. EGD/colonoscopy on 05/20/15 showed gastritis, irregular Z line and rectal nodule. Path report negative for malignancy. -- Had hemorrhoid surgery three weeks prior to admission with Dr. Schwartz. (4) presence of pain pump Status: Chronic Plan: --patient with intrathecal pain pump --managed by Dr. Omer outpatient --due for refill around 06/06. next week will arrange for auto radio mechanic to slat pickler refill from Dr. Omer's office. Dr. Lopez's nurses to administer. Assessment 61 y/o female with pancytopenia, suspected AML Plan 1. Idarubicin + Albina C day 6 today 2. monitor counts 3. no transfusion today. Problem Qualifiers (1) AML (acute myeloid leukemia): Qualified Code: C92.00 - Acute myeloid leukemia not having achieved remission Radha Lawrence Jun 01, 2016 11:36 Assessment 61 y/o female with pancytopenia, suspected AML Plan 1. Idarubicin + Albina C day 6 today 2. monitor counts 3. no transfusion today. Radha Lawrence Jun 01, 2016 11:36
[2016-06-01 12:00] VITALS: BP 150/79; PULSE 74; RESP 18; TEMP 97.2; O2SAT 93
[2016-06-01 16:00] VITALS: BP 146/63; PULSE 75; RESP 18; TEMP 97.2; O2SAT 97
[2016-06-01 20:00] VITALS: BP 152/71; PULSE 70; RESP 18; TEMP 97.4; O2SAT 98
[2016-06-01] MEDS: TEMAZEPAM 15 MG CAP PO PRN (22:23)
[2016-06-01] MEDS: GRANISETRON INJ 1 MG, DEXAMETHASONE INJ 20 MG in SODIUM CHLORIDE 0.9% INJ 50 ML IV SCH (22:23)
[2016-06-02] VITALS: BP 147/69; PULSE 70; RESP 18; TEMP 97.2; O2SAT 97
[2016-06-02] MEDS: SODIUM CHLORID 0.9% IV SCH (01:42)
[2016-06-02] MEDS: CYTARABINE IV SCH (01:42)
[2016-06-02 04:00] VITALS: BP 143/68; PULSE 65; RESP 18; TEMP 97.9; O2SAT 95
[2016-06-02] MEDS: SODIUM CHLORIDE 0.9% FLUSH 5 ML FLUSH IVF PRN (04:00)
[2016-06-02] MEDS: LEVOTHYROXINE SODIUM 25 MCG TAB PO SCH (05:20)
[2016-06-02] MEDS: SODIUM CHLOR 0.9% 1000 ML INJ 1,000 ML IV SCH ×2 (05:22→21:12)
[2016-06-02 06:02] LABS: HEMATOCRIT 24.8 % (35.0-46.0); MEAN CELL VOLUME 92.9 FL (80.0-100.0); MEAN CORPUSCULAR HEMOGLOBIN 31.9 PG (27.0-34.0); MEAN CORPUSCULAR HGB CONC 34.4 % (32.0-36.0); PLATELET COUNT 37 TH/MM3 (150-450); RED BLOOD COUNT 2.67 MIL/MM3 (4.00-5.30); RED CELL DISTRIBUTION WIDTH 14.8 % (11.6-17.2); WHITE BLOOD COUNT 0.3 TH/MM3 (4.0-11.0)
[2016-06-02 06:13] LABS: HEMO FLAGS AUTO DIFF
[2016-06-02] MEDS: FAMOTIDINE 20 MG TAB PO SCH ×2 (07:56→21:07)
[2016-06-02] MEDS: POLYETHYLENE GLYCOL 17 GM PKG PO SCH (07:56)
[2016-06-02] MEDS: LACTULOSE SYRUP 20 GM/30 ML CUP PO SCH (07:56)
[2016-06-02] MEDS: PANTOPRAZOLE SOD 40 MG DELAYED RELEASE TAB PO SCH (07:56)
[2016-06-02] MEDS: ALLOPURINOL 300 MG TAB PO SCH (07:57)
[2016-06-02] MEDS: GABAPENTIN 300 MG CAP PO SCH ×3 (07:57→17:21)
[2016-06-02] MEDS: FUROSEMIDE 20 MG TAB PO SCH (07:57)
[2016-06-02] MEDS: DIAZEPAM 10 MG TAB PO SCH ×2 (07:57→21:07)
[2016-06-02] MEDS: SODIUM CHLORIDE 0.9% FLUSH 5 ML FLUSH IV SCH ×2 (07:58→21:00)
[2016-06-02] MEDS: SODIUM CHLORIDE 0.9% FLUSH 5 ML FLUSH IVF SCH (07:58)
[2016-06-02 07:59] LABS: EOSINOPHILS 4 % (0-4); POLYS (SEG NEUTROPHILS) 14 % (16-70); WBC DIFF SAMPLE 100
[2016-06-02] MEDS: POTASSIUM CHLORIDE 10 MEQ CAP PO SCH (07:59)
[2016-06-02] MEDS: DOCUSATE SODIUM 100 MG CAP PO SCH ×2 (07:59→21:00)
[2016-06-02 08:00] VITALS: BP 149/72; PULSE 61; RESP 16; TEMP 99; O2SAT 99
[2016-06-02 08:07] LABS: PLATELET ESTIMATE SMEAR RARE (NORMAL); PLATELET MORPHOLOGY NORMAL (NORMAL); SCAN/DIFF FINAL DIFF MANUAL
[2016-06-02] MEDS: MORPHINE SULFATE 4 MG/ML INJ IV PUSH PRN ×3 (08:10→17:23)
--- NOTE | 2016-06-02 08:25 | HHI.PR ---
Subjective Remarks Follow up anemia, back pain. Patient states that her pain is well controlled. She took a shower this morning and now feels exhausted. No chest pain or dyspnea. No nausea or vomiting this morning. Objective Vitals Vital Signs Date Time Temp Pulse Resp B/P Pulse Ox O2 Delivery O2 Flow Rate FiO2 06/02/16 04:00 97.9 65 18 143/68 95 06/02/16 00:00 97.2 70 18 147/69 97 06/01/16 20:00 97.4 70 18 152/71 98 06/01/16 16:00 97.2 75 18 146/63 97 06/01/16 12:00 97.2 74 18 150/79 93 I/O 06/01/16 06/01/16 06/01/16 06/02/16 06/02/16 06/02/16 07:00 15:00 23:00 07:00 15:00 23:00 Intake Total 1930 ml 1080 ml 2888 ml 1845 ml Balance 1930 ml 1080 ml 2888 ml 1845 ml Intake Oral 480 ml 1080 ml 960 ml 960 ml IV Total 1450 ml 1928 ml 885 ml # Voids 3 9 6 2 # Bowel Movements 4 Result Diagram: 06/02/16 0400 05/30/16 0455 Imaging Last Impressions Lumbar Puncture Fluoroscopy 05/23/16 0000 Signed Impressions: Service Date/Time: Monday, May 23, 2016 14:16 - CONCLUSION: Uncomplicated fluoroscopically guided lumbar puncture. Bubba Cherry MD Catheter Placement X-Ray 05/23/16 0000 Signed Impressions: Service Date/Time: Monday, May 23, 2016 14:16 - CONCLUSION: Uncomplicated Donaldson catheter placement as above. Bubba Cherry MD Bone Biopsy CT 05/20/16 0846 Signed Impressions: Service Date/Time: Friday, May 20, 2016 09:13 - CONCLUSION: 1. Uncomplicated CT guided bone marrow aspirate. 2. Uncomplicated CT guided bone marrow biopsy. Yazan Saucedo MD Head CT 05/20/16 0000 Signed Impressions: Service Date/Time: Friday, May 20, 2016 15:16 - CONCLUSION: Normal examination for a patient of this age. No significant change has occurred. Emilio Thomas MD Chest CT 05/17/16 0000 Signed Impressions: Service Date/Time: Tuesday, May 17, 2016 15:14 - CONCLUSION: 1. 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 There are trace to very small bilateral pleural effusions and mild cardiomegaly noted. 2. No lobar consolidation. 3. Upper limits of normal to mildly enlarged mediastinal and bilateral hilar lymph nodes, nonspecific but presumably reactive. Bravo Mendez MD Abdomen/Pelvis CT 05/17/16 0000 Signed Impressions: Service Date/Time: Tuesday, May 17, 2016 15:18 - CONCLUSION: 1. Heterogeneous liver, nonspecific but possibly fatty infiltration, hepatocellular disease or a combination of the two. Nothing focal. 2. Nonspecific distention of the gallbladder. No stone, perceptible inflammatory changes or ductal dilatation demonstrated. 3. No obstruction, inflammatory changes or perceptible mass of the GI tract. Bravo Mendez MD Chest X-Ray 05/16/16 0000 Signed Impressions: Service Date/Time: Monday, May 16, 2016 19:23 - CONCLUSION: No acute disease. Minimal interstitial densities likely chronic. Kilo Cotto MD Objective Remarks General: No acute distress. Heart: Regular rate and rhythm. No murmur. Lungs: Clear to auscultation bilaterally. No wheezes, rales, or rhonchi. Breathing is nonlabored. Abdomen: Soft, nontender, nondistended. Extremities: No lower extremity edema. Psych: Alert and oriented. Procedures EGD/ colonoscopy Bone marrow biopsy Urinary Catheter: No Vascular Central Line Catheter: No A/P Problem List: (1) Pancytopenia ICD Code: D61.818 Status: Acute (2) GI bleed ICD Code: K92.2 Status: Acute (3) AML (acute myeloid leukemia) ICD Code: C92.00 Status: Acute (4) Symptomatic anemia ICD Code: D64.9 Status: Acute (5) UTI (urinary tract infection) ICD Code: N39.0 Status: Acute Assessment and Plan Reviewed/updated 06/02/16. No change. Continue chemotherapy per oncology. Pain adequately controlled. 1. AML: Status post bone marrow biopsy. Appreciate oncology management. Port placed 05/23/15. Chemotherapy per oncology, first dose was given 05/27/16. Continue IV fluids, allopurinol to help prevent tumor lysis syndrome. Monitor labs. H/H improved following transfusion. Neutropenic precautions. 2. Symptomatic anemia, GI bleed: Patient had hemorrhoidectomy 3 weeks ago. No active bleeding since the procedure. Hemoccult was positive in the ER. Appreciate GI recommendations. Status post EGD/colonoscopy on 05/20/15 which showed gastritis, rectal ulcer. Continue Protonix. Monitor labs and transfuse if necessary. H/H improved following transfusion on 05/29/16. 3. Headache: Improved. CT of the brain is negative. Status post lumbar puncture. Continue pain control as needed. 4. Chronic back pain: Stable. Patient has implanted pain pump. 5. Anxiety: Ativan as needed. 6. Constipation: Resolved. Continue bowel regimen. 7. GI prophylaxis: Pepcid, Protonix. 8. DVT prophylaxis: SCDs. Chemical prophylaxis contraindicated secondary to indwelling, anemia. 9. UTI: Urine culture growing Klebsiella Pneumoniae. Completed course of Rocephin. 10. Hypothyroidism: Continue Synthroid. Discharge Planning Per oncology. Problem Qualifiers (1) GI bleed: Qualified Code: K92.2 - Gastrointestinal hemorrhage, unspecified gastrointestinal hemorrhage type (2) AML (acute myeloid leukemia): Qualified Code: C92.00 - Acute myeloid leukemia not having achieved remission Aurelio Botello MD Jun 02, 2016 08:25
[2016-06-02 12:00] VITALS: BP 145/72; PULSE 64; RESP 16; TEMP 98.2; O2SAT 97
--- NOTE | 2016-06-02 13:49 | PD.ONC.PN ---
Subjective Subjective Remarks Afebrile overnight. Patient resting comfortably. She feels better today. No complaints. Objective Data Date Time Temp Pulse Resp B/P Pulse Ox O2 Delivery O2 Flow Rate FiO2 06/02/16 08:00 99.0 61 16 149/72 99 06/02/16 04:00 97.9 65 18 143/68 95 06/02/16 00:00 97.2 70 18 147/69 97 06/01/16 20:00 97.4 70 18 152/71 98 06/01/16 16:00 97.2 75 18 146/63 97 06/02/16 06/02/16 06/02/16 07:00 15:00 23:00 Intake Total 1845 ml Balance 1845 ml Result Diagram: 06/02/16 0400 05/30/16 0455 Laboratory Results Laboratory Tests Test 06/02/16 04:00 White Blood Count 0.3 TH/MM3 Red Blood Count 2.67 MIL/MM3 Hemoglobin 8.5 GM/DL Hematocrit 24.8 % Mean Corpuscular Volume 92.9 FL Mean Corpuscular Hemoglobin 31.9 PG Mean Corpuscular Hemoglobin 34.4 % Concent Red Cell Distribution Width 14.8 % Platelet Count 37 TH/MM3 Mean Platelet Volume 8.0 FL Neutrophils (%) (Auto) % Lymphocytes (%) (Auto) % Monocytes (%) (Auto) % Eosinophils (%) (Auto) % Basophils (%) (Auto) % Neutrophils # (Auto) TH/MM3 Lymphocytes # (Auto) TH/MM3 Monocytes # (Auto) TH/MM3 Eosinophils # (Auto) TH/MM3 Basophils # (Auto) TH/MM3 CBC Comment AUTO DIFF Differential Total Cells 100 Counted Neutrophils % (Manual) 14 % Lymphocytes % 82 % Eosinophils % 4 % Neutrophils # (Manual) 0.0 TH/MM3 Differential Comment FINAL DIFF MANUAL Platelet Estimate RARE Platelet Morphology Comment NORMAL Administered Medications Medications (Trade) Dose Ordered Sig/Prashant Route PRN Reason Start Time Stop Time Status Last Admin Dose Admin Carisoprodol (Soma) 350 mg TID PRN PO PAIN 05/16/16 17:30 05/27/16 09:17 Furosemide (Lasix) 20 mg DAILY PO 05/17/16 09:00 06/02/16 07:57 Gabapentin (Neurontin) 300 mg TID PO 05/16/16 18:00 06/02/16 11:56 Levothyroxine Sodium (Synthroid) 25 mcg DAILY@06 PO 05/17/16 06:00 06/02/16 05:20 Potassium Chloride (KCl) 10 meq DAILY PO 05/17/16 09:00 06/02/16 07:59 Famotidine (Pepcid) 20 mg BID PO 05/16/16 21:00 06/02/16 07:56 IV Flush (NS Flush) 2 ml BID IV 05/16/16 21:00 05/30/16 20:36 Ondansetron HCl (Zofran Inj) 4 mg Q6H PRN IV NAUSEA 05/16/16 17:45 06/01/16 09:07 Acetaminophen (Tylenol) 650 mg Q6HR PRN PO headache 05/17/16 06:30 05/29/16 21:10 Oxycodone/ Acetaminophen (Percocet 5-325 Mg) 1 tab Q4H PRN PO pain 1-5 05/20/16 10:00 05/25/16 15:44 Pantoprazole Sodium (Protonix) 40 mg DAILY PO 05/22/16 09:00 06/02/16 07:56 Oxycodone HCl (Roxicodone) 10 mg Q4H PRN PO pain 6-10 05/21/16 16:00 06/02/16 04:05 IV Flush (NS Flush) DAILY IVF 05/24/16 09:00 05/29/16 09:00 Heparin Sodium (Porcine) (Heparin Central Flush) DAILY IVF 05/24/16 09:00 05/30/16 18:10 IV Flush (NS Flush) UNSCH PRN IVF SEE PROTOCOL 05/23/16 15:30 06/02/16 04:00 Heparin Sodium (Porcine) (Heparin Central Flush) UNSCH PRN IVF SEE PROTOCOL 05/23/16 15:30 06/02/16 04:01 Docusate Sodium (Colace) 100 mg BID PO 05/24/16 11:00 06/02/16 07:59 Polyethylene Glycol 17 gm 17 gm DAILY PO 05/25/16 14:30 06/02/16 07:56 Sodium Chloride (NS 1000 ml Inj) 1,000 ml @ 100 mls/hr Q10H IV 05/26/16 09:30 06/02/16 05:22 Allopurinol 300 mg 300 mg DAILY PO 05/26/16 09:30 06/02/16 07:57 Cytarabine/Sodium Chloride (Albina C Inj/NS 500 ml Inj) 500 ml @ 20.833 mls/ hr Q24H IV 05/27/16 10:00 06/03/16 09:59 06/02/16 01:42 Morphine Sulfate (Morphine Inj) 2 mg Q2HR PRN IV PUSH SEVERE BREAKTHROUGH PAIN 05/27/16 08:45 06/02/16 12:02 Lactulose (Lactulose Liq) 30 ml DAILY PO 05/27/16 09:00 06/02/16 07:56 Diazepam (Valium) 10 mg Q12HR PO 05/28/16 09:00 06/02/16 07:57 Temazepam (Restoril) 15 mg HS PRN PO SLEEP 05/28/16 08:00 06/01/16 22:23 Objective Remarks GENERAL: Middle aged female, sitting up on side of bed in [facility]. SKIN: Warm and dry. huang catheter right chest wall, site clean, no bleeding. HEAD: Normocephalic. EYES: No injection or drainage. NECK: Supple, trachea midline. CARDIOVASCULAR: Regular rate and rhythm RESPIRATORY: Breath sounds equal bilaterally. No accessory muscle use. GASTROINTESTINAL: Abdomen soft, non-tender, nondistended. EXTREMITIES: No cyanosis NEUROLOGICAL: awake and alert, normal speech. Assessment/Plan Problem List: (1) AML (acute myeloid leukemia) Status: Acute Plan: 06/02/16: D7. last day of chemo today. 06/01/16: D6. nauseated. otherwise no events. continue chemo. 05/31/16:D5. no events. 05/30/16: D4 chemotherapy. no transfusion today. 05/29/16: D3 chemotherapy. Tolerated well Blood counts trending lower. Transfuse PRBC 2U. CSF cytology negative. 05/28/16: Tolerated chemo well, no significant side effect. Blood counts started to trend down. 05/27/16: D1. Albina-C + Idarubicin. (2) Pancytopenia Status: Acute Plan: transfuse for platelets less than 10k and a Hgb of less than 7. (3) Rectal bleed Status: Resolved Plan: -- Controlled. No new bleeding. EGD/colonoscopy on 05/20/15 showed gastritis, irregular Z line and rectal nodule. Path report negative for malignancy. -- Had hemorrhoid surgery three weeks prior to admission with Dr. Schwartz. (4) presence of pain pump Status: Chronic Plan: --patient with intrathecal pain pump --managed by Dr. Omer outpatient --due for refill around 06/06. next week will arrange for concrete layer to hop picker refill from Dr. Omer's office. Dr. Lopez's nurses to administer. Assessment 61 y/o female with pancytopenia, suspected AML Plan 1. last day of chemotherapy today. 2. monitor counts 3. no transfusion today. 4. I discussed code status with patient and sister. She would like to be a full code. I have entered her code status. I also discussed healthcare surrogate--she would like her sister to be her healthcare surrogate. I left the forms in her room as she would like to look over them and fill them out later. Attending Statement The exam, history, and the medical decision-making described in the above note were completed with the assistance of the mid-level provider. I reviewed and agree with the findings presented. I attest that I had a [id number] encounter with the patient on the same day, and personally performed and documented my assessment and findings in the medical record. Tolerating chemo well. Nausea is controlled. Counts are trending lower, but no transfusion needed today. Continue to monitor. Problem Qualifiers (1) AML (acute myeloid leukemia): Qualified Code: C92.00 - Acute myeloid leukemia not having achieved remission Radha Lawrence Jun 02, 2016 13:49 Ryan Tripp MD Jun 02, 2016 14:52
[2016-06-02 16:00] VITALS: BP 159/75; PULSE 63; RESP 16; TEMP 97.4; O2SAT 98
[2016-06-02 20:00] VITALS: BP_SYST 152; BP_DIAS 69; BP_DIAS 96; PULSE 66; RESP 17; TEMP 96.1; O2SAT 66
[2016-06-02] MEDS: GRANISETRON INJ 1 MG, DEXAMETHASONE INJ 20 MG in SODIUM CHLORIDE 0.9% INJ 50 ML IV SCH (22:22)
[2016-06-02] MEDS: LACTATED RINGER'S 1000 ML IV SCH (22:25)
[2016-06-03] VITALS: BP 139/65; PULSE 62; RESP 18; TEMP 96; O2SAT 96
[2016-06-03] MEDS: SODIUM CHLOR 0.9% 1000 ML INJ 1,000 ML IV SCH ×3 (01:46→20:40)
[2016-06-03 04:00] VITALS: BP 121/58; PULSE 69; RESP 16; TEMP 96.8; O2SAT 97
[2016-06-03] MEDS: CYTARABINE IV SCH (04:14)
[2016-06-03] MEDS: SODIUM CHLORID 0.9% IV SCH (04:14)
[2016-06-03] MEDS: LEVOTHYROXINE SODIUM 25 MCG TAB PO SCH (05:32)
[2016-06-03 08:00] VITALS: BP 134/63; PULSE 62; RESP 16; TEMP 98; O2SAT 98
--- NOTE | 2016-06-03 08:01 | HHI.PR ---
Subjective Remarks Follow up anemia, AML. Patient with some soreness in her mouth. No nausea/ vomiting. Does report diffuse joint pains. Objective Vitals Vital Signs Date Time Temp Pulse Resp B/P Pulse Ox O2 Delivery O2 Flow Rate FiO2 06/03/16 04:00 96.8 69 16 121/58 97 06/03/16 00:00 96.0 62 18 139/65 96 06/02/16 20:00 96.1 66 17 152/96 66 06/02/16 16:00 97.4 63 16 159/75 98 06/02/16 12:00 98.2 64 16 145/72 97 06/02/16 08:00 99.0 61 16 149/72 99 I/O 06/02/16 06/02/16 06/02/16 06/03/16 06/03/16 06/03/16 07:00 15:00 23:00 07:00 15:00 23:00 Intake Total 1845 ml 480 ml 2570 ml 895 ml Balance 1845 ml 480 ml 2570 ml 895 ml Intake Oral 960 ml 480 ml 550 ml IV Total 885 ml 2020 ml 895 ml # Voids 2 4 2 # Bowel Movements 2 Result Diagram: 06/02/16 0400 05/30/16 0455 Imaging Last Impressions Lumbar Puncture Fluoroscopy 05/23/16 0000 Signed Impressions: Service Date/Time: Monday, May 23, 2016 14:16 - CONCLUSION: Uncomplicated fluoroscopically guided lumbar puncture. Bubba Cherry MD Catheter Placement X-Ray 05/23/16 0000 Signed Impressions: Service Date/Time: Monday, May 23, 2016 14:16 - CONCLUSION: Uncomplicated Donaldson catheter placement as above. Bubba Cherry MD Bone Biopsy CT 05/20/16 0846 Signed Impressions: Service Date/Time: Friday, May 20, 2016 09:13 - CONCLUSION: 1. Uncomplicated CT guided bone marrow aspirate. 2. Uncomplicated CT guided bone marrow biopsy. Yazan Saucedo MD Head CT 05/20/16 0000 Signed Impressions: Service Date/Time: Friday, May 20, 2016 15:16 - CONCLUSION: Normal examination for a patient of this age. No significant change has occurred. Emilio Thomas MD Chest CT 05/17/16 0000 Signed Impressions: Service Date/Time: Tuesday, May 17, 2016 15:14 - CONCLUSION: 1. 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 There are trace to very small bilateral pleural effusions and mild cardiomegaly noted. 2. No lobar consolidation. 3. Upper limits of normal to mildly enlarged mediastinal and bilateral hilar lymph nodes, nonspecific but presumably reactive. Bravo Mendez MD Abdomen/Pelvis CT 05/17/16 0000 Signed Impressions: Service Date/Time: Tuesday, May 17, 2016 15:18 - CONCLUSION: 1. Heterogeneous liver, nonspecific but possibly fatty infiltration, hepatocellular disease or a combination of the two. Nothing focal. 2. Nonspecific distention of the gallbladder. No stone, perceptible inflammatory changes or ductal dilatation demonstrated. 3. No obstruction, inflammatory changes or perceptible mass of the GI tract. Bravo Mendez MD Chest X-Ray 05/16/16 0000 Signed Impressions: Service Date/Time: Monday, May 16, 2016 19:23 - CONCLUSION: No acute disease. Minimal interstitial densities likely chronic. Kilo Cotto MD Objective Remarks General: No acute distress. Heart: Regular rate and rhythm. No murmur. Lungs: Clear to auscultation bilaterally. No wheezes, rales, or rhonchi. Breathing is nonlabored. Abdomen: Soft, nontender, nondistended. Extremities: No lower extremity edema. Psych: Alert and oriented. Procedures EGD/ colonoscopy Bone marrow biopsy Urinary Catheter: No Vascular Central Line Catheter: No A/P Problem List: (1) Pancytopenia ICD Code: D61.818 Status: Acute (2) GI bleed ICD Code: K92.2 Status: Acute (3) AML (acute myeloid leukemia) ICD Code: C92.00 Status: Acute (4) Symptomatic anemia ICD Code: D64.9 Status: Acute (5) UTI (urinary tract infection) ICD Code: N39.0 Status: Acute Assessment and Plan Reviewed/updated 06/03/16. Continue chemotherapy per oncology. Pain adequately controlled. Discussed with Dr. Tripp. Shawn mouthwash. Monitor CBC. Patient is due to have pain pump refilled this week. 1. AML: Status post bone marrow biopsy. Appreciate oncology management. Port placed 05/23/15. Chemotherapy per oncology, first dose was given 05/27/16. Continue IV fluids, allopurinol to help prevent tumor lysis syndrome. Monitor labs. H/H improved following transfusion. Neutropenic precautions. 2. Symptomatic anemia, GI bleed: Patient had hemorrhoidectomy 3 weeks ago. No active bleeding since the procedure. Hemoccult was positive in the ER. Appreciate GI recommendations. Status post EGD/colonoscopy on 05/20/15 which showed gastritis, rectal ulcer. Continue Protonix. Monitor labs and transfuse if necessary. H/H improved following transfusion on 05/29/16. 3. Headache: Improved. CT of the brain is negative. Status post lumbar puncture. Continue pain control as needed. 4. Chronic back pain: Stable. Patient has implanted pain pump. 5. Anxiety: Ativan as needed. 6. Constipation: Resolved. Continue bowel regimen. 7. GI prophylaxis: Pepcid, Protonix. 8. DVT prophylaxis: SCDs. Chemical prophylaxis contraindicated secondary to indwelling, anemia. 9. UTI: Urine culture growing Klebsiella Pneumoniae. Completed course of Rocephin. 10. Hypothyroidism: Continue Synthroid. Discharge Planning Per oncology. Problem Qualifiers (1) GI bleed: Qualified Code: K92.2 - Gastrointestinal hemorrhage, unspecified gastrointestinal hemorrhage type (2) AML (acute myeloid leukemia): Qualified Code: C92.00 - Acute myeloid leukemia not having achieved remission Aurelio Botello MD Jun 03, 2016 08:01
[2016-06-03] MEDS: SODIUM CHLORIDE 0.9% FLUSH 5 ML FLUSH IV SCH ×2 (09:00→20:31)
[2016-06-03] MEDS: SODIUM CHLORIDE 0.9% FLUSH 5 ML FLUSH IVF SCH (09:00)
[2016-06-03] MEDS: FLUCONAZOLE 200 MG TAB PO SCH (09:45)
[2016-06-03] MEDS: ALLOPURINOL 300 MG TAB PO SCH (09:45)
[2016-06-03] MEDS: LEVOFLOXACIN 250 MG TAB PO SCH (09:45)
[2016-06-03] MEDS: FAMOTIDINE 20 MG TAB PO SCH ×2 (09:45→20:36)
[2016-06-03] MEDS: DIAZEPAM 10 MG TAB PO SCH ×2 (09:45→20:36)
[2016-06-03] MEDS: DOCUSATE SODIUM 100 MG CAP PO SCH ×2 (09:45→20:30)
[2016-06-03] MEDS: FUROSEMIDE 20 MG TAB PO SCH (09:45)
[2016-06-03] MEDS: PANTOPRAZOLE SOD 40 MG DELAYED RELEASE TAB PO SCH (09:45)
[2016-06-03] MEDS: POTASSIUM CHLORIDE 10 MEQ CAP PO SCH (09:45)
[2016-06-03] MEDS: GABAPENTIN 300 MG CAP PO SCH ×3 (09:46→17:47)
[2016-06-03] MEDS: LACTULOSE SYRUP 20 GM/30 ML CUP PO SCH (09:46)
[2016-06-03] MEDS: POLYETHYLENE GLYCOL 17 GM PKG PO SCH (09:46)
[2016-06-03 10:27] LABS: HEMATOCRIT 24.1 % (35.0-46.0); MEAN CELL VOLUME 91.5 FL (80.0-100.0); MEAN CORPUSCULAR HEMOGLOBIN 32.2 PG (27.0-34.0); MEAN CORPUSCULAR HGB CONC 35.2 % (32.0-36.0); PLATELET COUNT 26 TH/MM3 (150-450); RED BLOOD COUNT 2.64 MIL/MM3 (4.00-5.30); RED CELL DISTRIBUTION WIDTH 14.3 % (11.6-17.2); WHITE BLOOD COUNT 0.4 TH/MM3 (4.0-11.0)
[2016-06-03 10:32] LABS: HEMO FLAGS AUTO DIFF
[2016-06-03 11:01] LABS: WBC DIFF SAMPLE 25
[2016-06-03 11:02] LABS: PLATELET ESTIMATE SMEAR LOW (NORMAL); PLATELET MORPHOLOGY NORMAL (NORMAL); SCAN/DIFF FINAL DIFF MANUAL
--- NOTE | 2016-06-03 12:12 | PD.ONC.PN ---
Subjective Subjective Remarks Afebrile overnight. Patient resting comfortably. She is very anxious about her pain pump expiring. She has some pain in her mouth. Objective Data Date Time Temp Pulse Resp B/P Pulse Ox O2 Delivery O2 Flow Rate FiO2 06/03/16 04:00 96.8 69 16 121/58 97 06/03/16 00:00 96.0 62 18 139/65 96 06/02/16 20:00 96.1 66 17 152/96 66 06/02/16 16:00 97.4 63 16 159/75 98 Result Diagram: 06/03/16 1000 05/30/16 0455 Laboratory Results Laboratory Tests Test 06/03/16 10:00 White Blood Count 0.4 TH/MM3 Red Blood Count 2.64 MIL/MM3 Hemoglobin 8.5 GM/DL Hematocrit 24.1 % Mean Corpuscular Volume 91.5 FL Mean Corpuscular Hemoglobin 32.2 PG Mean Corpuscular Hemoglobin 35.2 % Concent Red Cell Distribution Width 14.3 % Platelet Count 26 TH/MM3 Mean Platelet Volume 7.0 FL Neutrophils (%) (Auto) % Lymphocytes (%) (Auto) % Monocytes (%) (Auto) % Eosinophils (%) (Auto) % Basophils (%) (Auto) % Neutrophils # (Auto) TH/MM3 Lymphocytes # (Auto) TH/MM3 Monocytes # (Auto) TH/MM3 Eosinophils # (Auto) TH/MM3 Basophils # (Auto) TH/MM3 CBC Comment AUTO DIFF Differential Total Cells 25 Counted Lymphocytes % 100 % Neutrophils # (Manual) 0.0 TH/MM3 Differential Comment FINAL DIFF MANUAL Platelet Estimate LOW Platelet Morphology Comment NORMAL Red Cell Morphology Comment NORMAL Administered Medications Medications (Trade) Dose Ordered Sig/Prashant Route PRN Reason Start Time Stop Time Status Last Admin Dose Admin Carisoprodol (Soma) 350 mg TID PRN PO PAIN 05/16/16 17:30 05/27/16 09:17 Furosemide (Lasix) 20 mg DAILY PO 05/17/16 09:00 06/03/16 09:45 Gabapentin (Neurontin) 300 mg TID PO 05/16/16 18:00 06/03/16 09:46 Levothyroxine Sodium (Synthroid) 25 mcg DAILY@06 PO 05/17/16 06:00 06/03/16 05:32 Potassium Chloride (KCl) 10 meq DAILY PO 05/17/16 09:00 06/03/16 09:45 Famotidine (Pepcid) 20 mg BID PO 05/16/16 21:00 06/03/16 09:45 IV Flush (NS Flush) 2 ml BID IV 05/16/16 21:00 05/30/16 20:36 Ondansetron HCl (Zofran Inj) 4 mg Q6H PRN IV NAUSEA 05/16/16 17:45 06/01/16 09:07 Acetaminophen (Tylenol) 650 mg Q6HR PRN PO headache 05/17/16 06:30 05/29/16 21:10 Oxycodone/ Acetaminophen (Percocet 5-325 Mg) 1 tab Q4H PRN PO pain 1-5 05/20/16 10:00 05/25/16 15:44 Pantoprazole Sodium (Protonix) 40 mg DAILY PO 05/22/16 09:00 06/03/16 09:45 Oxycodone HCl (Roxicodone) 10 mg Q4H PRN PO pain 6-10 05/21/16 16:00 06/03/16 05:32 IV Flush (NS Flush) DAILY IVF 05/24/16 09:00 05/29/16 09:00 Heparin Sodium (Porcine) (Heparin Central Flush) DAILY IVF 05/24/16 09:00 05/30/16 18:10 IV Flush (NS Flush) UNSCH PRN IVF SEE PROTOCOL 05/23/16 15:30 06/02/16 04:00 Heparin Sodium (Porcine) (Heparin Central Flush) UNSCH PRN IVF SEE PROTOCOL 05/23/16 15:30 06/02/16 04:01 Docusate Sodium (Colace) 100 mg BID PO 05/24/16 11:00 06/03/16 09:45 Polyethylene Glycol 17 gm 17 gm DAILY PO 05/25/16 14:30 06/03/16 09:46 Sodium Chloride (NS 1000 ml Inj) 1,000 ml @ 100 mls/hr Q10H IV 05/26/16 09:30 06/03/16 01:46 Allopurinol (Zyloprim) 300 mg DAILY PO 05/26/16 09:30 06/03/16 09:45 Morphine Sulfate (Morphine Inj) 2 mg Q2HR PRN IV PUSH SEVERE BREAKTHROUGH PAIN 05/27/16 08:45 06/02/16 17:23 Lactulose (Lactulose Liq) 30 ml DAILY PO 05/27/16 09:00 06/03/16 09:46 Diazepam (Valium) 10 mg Q12HR PO 05/28/16 09:00 06/03/16 09:45 Temazepam (Restoril) 15 mg HS PRN PO SLEEP 05/28/16 08:00 06/01/16 22:23 Fluconazole (Diflucan) 200 mg DAILY PO 06/03/16 09:00 06/03/16 09:45 Levofloxacin (Levaquin) 250 mg DAILY@11 PO 06/03/16 11:00 06/03/16 09:45 Objective Remarks GENERAL: Middle aged female, sitting up in room in [facility]. SKIN: Warm and dry. HEAD: Normocephalic. EYES: No injection or drainage. NECK: Supple, trachea midline. CARDIOVASCULAR: Regular rate and rhythm RESPIRATORY: Breath sounds equal bilaterally. No accessory muscle use. GASTROINTESTINAL: Abdomen soft, non-tender, nondistended. EXTREMITIES: No cyanosis NEUROLOGICAL: awake and alert, normal speech. Lines: Donaldson catheter, right chest wall. Assessment/Plan Problem List: (1) AML (acute myeloid leukemia) Status: Acute Plan: 06/03/16: D8 chemo finishes late tonight. 06/01/16: D6. nauseated. otherwise no events. continue chemo. 05/31/16:D5. no events. 05/30/16: D4 chemotherapy. no transfusion today. 05/29/16: D3 chemotherapy. Tolerated well Blood counts trending lower. Transfuse PRBC 2U. CSF cytology negative. 05/28/16: Tolerated chemo well, no significant side effect. Blood counts started to trend down. 05/27/16: D1. Albina-C + Idarubicin. (2) Pancytopenia Status: Acute Plan: transfuse for platelets less than 10k and a Hgb of less than 7. (3) Rectal bleed Status: Resolved Plan: -- Controlled. No new bleeding. EGD/colonoscopy on 05/20/15 showed gastritis, irregular Z line and rectal nodule. Path report negative for malignancy. -- Had hemorrhoid surgery three weeks prior to admission with Dr. Schwartz. (4) presence of pain pump Status: Chronic Plan: --patient with intrathecal pain pump --managed by Dr. Omer outpatient --due for refill around 06/06. next week will arrange for manager of distribution to crop picker refill from Dr. Omer's office. Dr. Lopez's nurses to administer. Assessment 61 y/o female with pancytopenia, suspected AML Plan 1. monitor CBC 2. give magic mouthwash for oral mucositis 3. start acyclovir/diflucan/levaquin for prophylaxis. Attending Statement The exam, history, and the medical decision-making described in the above note were completed with the assistance of the mid-level provider. I reviewed and agree with the findings presented. I attest that I had a [id number] encounter with the patient on the same day, and personally performed and documented my assessment and findings in the medical record. Completing chemotherapy today. Beginning to have mucositis. Start magic mouthwash. Start abx prophylaxis. Continue supportive care. Try to contact 's office to arrange refill of her pain pump. Problem Qualifiers (1) AML (acute myeloid leukemia): Qualified Code: C92.00 - Acute myeloid leukemia not having achieved remission Radha Lawrence Jun 03, 2016 12:12 Ryan Tripp MD Jun 03, 2016 13:27
[2016-06-03 12:39] VITALS: BP 141/69; PULSE 63; RESP 16; TEMP 96.8; O2SAT 97
[2016-06-03] MEDS ORDERED: ALLO300 PO (13:02)
[2016-06-03] MEDS ORDERED: ACYC200C66 PO (13:02)
--- NOTE | 2016-06-03 13:03 | HHI.DCPOC ---
Discharge Care Plan Diagnosis: (1) presence of pain pump (2) Rectal bleed (3) Anxiety (4) Symptomatic anemia (5) AML (acute myeloid leukemia) (6) GERD (gastroesophageal reflux disease) (7) Acute blood loss anemia (8) Thrombocytopenia (9) Pancytopenia (10) UTI (urinary tract infection) (11) Hypothyroid Goals to Promote Your Health * To prevent worsening of your condition and complications * To maintain your health at the optimal level Directions to Meet Your Goals Take your medications as prescribed Follow your dietary instruction Follow activity as directed Keep your appointments as scheduled Take your immunizations and boosters as scheduled If your symptoms worsen call your PCP, if no PCP go to Urgent Care Center or Emergency Room Smoking is Dangerous to Your Health. Avoid second hand smoke Call the 24-hour hour crisis hotline for domestic abuse at Aurelio Botello MD Jun 03, 2016 13:02
[2016-06-03] MEDS: NYSTAT/DIPHENHY/LIDO MOUTHWASH (Adult) 120ML SWISH-SWAL SCH ×3 (13:20→20:35)
[2016-06-03] MEDS: ACYCLOVIR 200 MG CAP PO SCH ×2 (13:21→21:52)
[2016-06-03 16:00] VITALS: BP 150/69; PULSE 70; RESP 16; TEMP 98.8; O2SAT 98
[2016-06-03 20:00] VITALS: BP 149/69; PULSE 75; RESP 16; TEMP 97.7; O2SAT 96
[2016-06-04] VITALS (9 sets, daily range): BP systolic 103–139; BP diastolic 57–68; PULSE 68–119; RESP 16–20; TEMP 96.9–101.3; O2SAT 93–99
[2016-06-04] MEDS: LACTATED RINGER'S 1000 ML IV SCH (00:01)
[2016-06-04] MEDS: SODIUM CHLORIDE 0.9% FLUSH 5 ML FLUSH IVF PRN (04:31)
[2016-06-04] MEDS: ACYCLOVIR 200 MG CAP PO SCH ×3 (05:35→22:05)
[2016-06-04] MEDS: LEVOTHYROXINE SODIUM 25 MCG TAB PO SCH (05:35)
[2016-06-04 05:54] LABS: HEMATOCRIT 22.5 % (35.0-46.0); MEAN CELL VOLUME 91.5 FL (80.0-100.0); MEAN CORPUSCULAR HEMOGLOBIN 32.2 PG (27.0-34.0); MEAN CORPUSCULAR HGB CONC 35.2 % (32.0-36.0); RED BLOOD COUNT 2.46 MIL/MM3 (4.00-5.30); RED CELL DISTRIBUTION WIDTH 14.5 % (11.6-17.2); WHITE BLOOD COUNT 0.9 TH/MM3 (4.0-11.0)
[2016-06-04 05:58] LABS: HEMO FLAGS AUTO DIFF; PLATELET COUNT 16 TH/MM3 (150-450)
[2016-06-04] MEDS: POTASSIUM CHLORIDE 10 MEQ CAP PO SCH (08:23)
[2016-06-04] MEDS: NYSTAT/DIPHENHY/LIDO MOUTHWASH (Adult) 120ML SWISH-SWAL SCH ×4 (08:23→21:00)
[2016-06-04] MEDS: DOCUSATE SODIUM 100 MG CAP PO SCH ×2 (08:23→22:05)
[2016-06-04] MEDS: PANTOPRAZOLE SOD 40 MG DELAYED RELEASE TAB PO SCH (08:23)
[2016-06-04] MEDS: GABAPENTIN 300 MG CAP PO SCH ×3 (08:23→18:49)
[2016-06-04] MEDS: FLUCONAZOLE 200 MG TAB PO SCH (08:23)
[2016-06-04] MEDS: ALLOPURINOL 300 MG TAB PO SCH (08:23)
[2016-06-04] MEDS: FUROSEMIDE 20 MG TAB PO SCH (08:23)
[2016-06-04] MEDS: DIAZEPAM 10 MG TAB PO SCH ×2 (08:23→22:05)
[2016-06-04] MEDS: FAMOTIDINE 20 MG TAB PO SCH ×2 (08:23→22:05)
[2016-06-04] MEDS: LACTULOSE SYRUP 20 GM/30 ML CUP PO SCH (08:23)
[2016-06-04] MEDS: POLYETHYLENE GLYCOL 17 GM PKG PO SCH (08:27)
[2016-06-04] MEDS ORDERED: SODIUM CHLOR 0.9% 250 ML INJ 250 ML IV ONE (09:00)
[2016-06-04] MEDS ORDERED: diphenhydrAMINE HCL 25 MG CAP PO PRN (09:00)
[2016-06-04] MEDS ORDERED: ACETAMINOPHEN 325 MG TAB PO PRN (09:00)
[2016-06-04] MEDS: SODIUM CHLORIDE 0.9% FLUSH 5 ML FLUSH IVF SCH (09:00)
[2016-06-04 09:13] LABS: PLATELET ESTIMATE SMEAR RARE (NORMAL); PLATELET MORPHOLOGY NORMAL (NORMAL); SCAN/DIFF FINAL DIFF MANUAL; WBC DIFF SAMPLE 50
--- NOTE | 2016-06-04 09:47 | PD.ONC.PN ---
Subjective Subjective Remarks Afebrile overnight. Patient feeling anxious today and fatigued. No overnight events. Objective Data Date Time Temp Pulse Resp B/P Pulse Ox O2 Delivery O2 Flow Rate FiO2 06/04/16 04:00 98.0 69 18 103/57 96 06/04/16 00:00 97.2 68 18 122/63 98 06/03/16 20:00 97.7 75 16 149/69 96 06/03/16 16:00 98.8 70 16 150/69 98 06/03/16 12:39 96.8 63 16 141/69 97 Result Diagram: 06/04/16 0430 Laboratory Results Laboratory Tests Test 06/03/16 06/04/16 06/04/16 10:00 04:30 08:49 White Blood Count 0.4 TH/MM3 0.9 TH/MM3 Red Blood Count 2.64 MIL/MM3 2.46 MIL/MM3 Hemoglobin 8.5 GM/DL 7.9 GM/DL Hematocrit 24.1 % 22.5 % Mean Corpuscular Volume 91.5 FL 91.5 FL Mean Corpuscular Hemoglobin 32.2 PG 32.2 PG Mean Corpuscular Hemoglobin 35.2 % 35.2 % Concent Red Cell Distribution Width 14.3 % 14.5 % Platelet Count 26 TH/MM3 16 TH/MM3 Mean Platelet Volume 7.0 FL 7.5 FL Neutrophils (%) (Auto) % % Lymphocytes (%) (Auto) % % Monocytes (%) (Auto) % % Eosinophils (%) (Auto) % % Basophils (%) (Auto) % % Neutrophils # (Auto) TH/MM3 TH/MM3 Lymphocytes # (Auto) TH/MM3 TH/MM3 Monocytes # (Auto) TH/MM3 TH/MM3 Eosinophils # (Auto) TH/MM3 TH/MM3 Basophils # (Auto) TH/MM3 TH/MM3 CBC Comment AUTO DIFF AUTO DIFF Differential Total Cells 25 50 Counted Lymphocytes % 100 % 100 % Neutrophils # (Manual) 0.0 TH/MM3 0.0 TH/MM3 Differential Comment FINAL DIFF FINAL DIFF MANUAL MANUAL Platelet Estimate LOW RARE Platelet Morphology Comment NORMAL NORMAL Red Cell Morphology Comment NORMAL Blood Bank Comment Administered Medications Medications (Trade) Dose Ordered Sig/Prashant Route PRN Reason Start Time Stop Time Status Last Admin Dose Admin Carisoprodol (Soma) 350 mg TID PRN PO PAIN 05/16/16 17:30 05/27/16 09:17 Furosemide (Lasix) 20 mg DAILY PO 05/17/16 09:00 06/04/16 08:23 Gabapentin (Neurontin) 300 mg TID PO 05/16/16 18:00 06/04/16 08:23 Levothyroxine Sodium (Synthroid) 25 mcg DAILY@06 PO 05/17/16 06:00 06/04/16 05:35 Potassium Chloride (KCl) 10 meq DAILY PO 05/17/16 09:00 06/04/16 08:23 Famotidine (Pepcid) 20 mg BID PO 05/16/16 21:00 06/04/16 08:23 IV Flush (NS Flush) 2 ml BID IV 05/16/16 21:00 05/30/16 20:36 Ondansetron HCl (Zofran Inj) 4 mg Q6H PRN IV NAUSEA 05/16/16 17:45 06/01/16 09:07 Acetaminophen (Tylenol) 650 mg Q6HR PRN PO headache 05/17/16 06:30 05/29/16 21:10 Oxycodone/ Acetaminophen (Percocet 5-325 Mg) 1 tab Q4H PRN PO pain 1-5 05/20/16 10:00 05/25/16 15:44 Pantoprazole Sodium (Protonix) 40 mg DAILY PO 05/22/16 09:00 06/04/16 08:23 Oxycodone HCl (Roxicodone) 10 mg Q4H PRN PO pain 6-10 05/21/16 16:00 06/04/16 08:41 IV Flush (NS Flush) DAILY IVF 05/24/16 09:00 05/29/16 09:00 Heparin Sodium (Porcine) (Heparin Central Flush) DAILY IVF 05/24/16 09:00 05/30/16 18:10 IV Flush (NS Flush) UNSCH PRN IVF SEE PROTOCOL 05/23/16 15:30 06/04/16 04:31 Heparin Sodium (Porcine) (Heparin Central Flush) UNSCH PRN IVF SEE PROTOCOL 05/23/16 15:30 06/02/16 04:01 Docusate Sodium (Colace) 100 mg BID PO 05/24/16 11:00 06/04/16 08:23 Polyethylene Glycol 17 gm 17 gm DAILY PO 05/25/16 14:30 06/04/16 08:27 Sodium Chloride (NS 1000 ml Inj) 1,000 ml @ 100 mls/hr Q10H IV 05/26/16 09:30 06/03/16 20:40 Allopurinol (Zyloprim) 300 mg DAILY PO 05/26/16 09:30 06/04/16 08:23 Morphine Sulfate (Morphine Inj) 2 mg Q2HR PRN IV PUSH SEVERE BREAKTHROUGH PAIN 05/27/16 08:45 06/02/16 17:23 Lactulose (Lactulose Liq) 30 ml DAILY PO 05/27/16 09:00 06/04/16 08:23 Diazepam (Valium) 10 mg Q12HR PO 05/28/16 09:00 06/04/16 08:23 Temazepam (Restoril) 15 mg HS PRN PO SLEEP 05/28/16 08:00 06/01/16 22:23 Multi-Ingredient Mouthwash/Gargle (Magic Mouthwash Adult Liq) 5 ml QID SWISH-SWAL 06/03/16 09:00 06/04/16 08:23 Acyclovir (Zovirax) 400 mg Q8HR PO 06/03/16 14:00 06/04/16 05:35 Fluconazole (Diflucan) 200 mg DAILY PO 06/03/16 09:00 06/04/16 08:23 Levofloxacin (Levaquin) 250 mg DAILY@11 PO 06/03/16 11:00 06/03/16 09:45 Objective Remarks GENERAL: Middle aged female, sitting up in room in [facility]. SKIN: Warm and dry. Donaldson catheter, right chest wall. HEAD: Normocephalic. EYES: No injection or drainage. NECK: Supple, trachea midline. CARDIOVASCULAR: Regular rate and rhythm. RESPIRATORY: Breath sounds equal bilaterally. No accessory muscle use. GASTROINTESTINAL: Abdomen soft, non-tender, nondistended. EXTREMITIES: No cyanosis. no edema. NEUROLOGICAL: awake and alert, normal speech. moving all extremities. Assessment/Plan Problem List: (1) AML (acute myeloid leukemia) Status: Acute Plan: 06/04/16: D9. 1 unit plt 06/03/16: D8 chemo finishes late tonight. started on acyclovir/diflucan/levaquin for prophylaxis. 06/01/16: D6. nauseated. otherwise no events. continue chemo. 05/31/16:D5. no events. 05/30/16: D4 chemotherapy. no transfusion today. 05/29/16: D3 chemotherapy. Tolerated well Blood counts trending lower. Transfuse PRBC 2U. CSF cytology negative. 05/28/16: Tolerated chemo well, no significant side effect. Blood counts started to trend down. 05/27/16: D1. Albina-C + Idarubicin. AML w/ intermediate risk cytogenetics. FLT3 is pending. (2) Pancytopenia Status: Acute Plan: transfuse for platelets less than 10k and a Hgb of less than 7. (3) Rectal bleed Status: Resolved Plan: -- Controlled. No new bleeding. EGD/colonoscopy on 05/20/15 showed gastritis, irregular Z line and rectal nodule. Path report negative for malignancy. -- Had hemorrhoid surgery three weeks prior to admission with Dr. Schwartz. (4) presence of pain pump Status: Chronic Plan: --patient with intrathecal pain pump --managed by Dr. Omer outpatient --pain pump will alarm on 06/06 Assessment 61 y/o female with pancytopenia, suspected AML Plan 1. monitor CBC 2. supportive care 3. 1 unit platelets today Attending Statement The exam, history, and the medical decision-making described in the above note were completed with the assistance of the mid-level provider. I reviewed and agree with the findings presented. I attest that I had a [id number] encounter with the patient on the same day, and personally performed and documented my assessment and findings in the medical record. Headache has improved. Blood counts trending lower. Transfuse platelet today. Continue abx prophylaxis. Still trying to figure a way to get her pain pump refill. Problem Qualifiers (1) AML (acute myeloid leukemia): Qualified Code: C92.00 - Acute myeloid leukemia not having achieved remission Radha Lawrence Jun 04, 2016 09:47 Ryan Tripp MD Jun 04, 2016 12:27
[2016-06-04] MEDS: LEVOFLOXACIN 250 MG TAB PO SCH (11:27)
[2016-06-04] MEDS: SODIUM CHLORIDE 0.9% FLUSH 5 ML FLUSH IV SCH ×2 (12:09→21:00)
[2016-06-04] MEDS: SODIUM CHLOR 0.9% 1000 ML INJ 1,000 ML IV SCH ×2 (12:10→22:46)
--- NOTE | 2016-06-04 13:00 | HHI.PR ---
Subjective Remarks The patient was resting in bed comfortably. She had family at the bedside. She was concerned about her pain pump running out of medication. She says her headache is better. She had a bowel movement today. She is requesting a nutrition supplement that she has not been able to eat that much. She has not been vomiting. Discussed with nursing. Objective Vitals Vital Signs Date Time Temp Pulse Resp B/P Pulse Ox O2 Delivery O2 Flow Rate FiO2 06/04/16 12:30 98.8 96 18 134/68 96 06/04/16 12:16 98.4 77 18 130/60 98 06/04/16 11:54 96.9 78 20 131/60 98 06/04/16 11:50 98.2 103 20 139/65 97 06/04/16 04:00 98.0 69 18 103/57 96 06/04/16 00:00 97.2 68 18 122/63 98 06/03/16 20:00 97.7 75 16 149/69 96 06/03/16 16:00 98.8 70 16 150/69 98 I/O 06/03/16 06/03/16 06/03/16 06/04/16 06/04/16 06/04/16 07:00 15:00 23:00 07:00 15:00 23:00 Intake Total 895 ml 720 ml 2500 ml 1760 ml Balance 895 ml 720 ml 2500 ml 1760 ml Intake Oral 720 ml 600 ml 600 ml IV Total 895 ml 1900 ml 1160 ml # Voids 4 3 3 # Bowel Movements 2 Result Diagram: 06/04/16 0430 Imaging Last Impressions Lumbar Puncture Fluoroscopy 05/23/16 0000 Signed Impressions: Service Date/Time: Monday, May 23, 2016 14:16 - CONCLUSION: Uncomplicated fluoroscopically guided lumbar puncture. Bubba Cherry MD Catheter Placement X-Ray 05/23/16 0000 Signed Impressions: Service Date/Time: Monday, May 23, 2016 14:16 - CONCLUSION: Uncomplicated Donaldson catheter placement as above. Bubba Cherry MD Bone Biopsy CT 05/20/16 0846 Signed Impressions: Service Date/Time: Friday, May 20, 2016 09:13 - CONCLUSION: 1. Uncomplicated CT guided bone marrow aspirate. 2. Uncomplicated CT guided bone marrow biopsy. Yazan Saucedo MD Head CT 05/20/16 0000 Signed Impressions: Service Date/Time: Friday, May 20, 2016 15:16 - CONCLUSION: Normal examination for a patient of this age. No significant change has occurred. Emilio Thomas MD Chest CT 05/17/16 0000 Signed Impressions: Service Date/Time: Tuesday, May 17, 2016 15:14 - CONCLUSION: 1. 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 There are trace to very small bilateral pleural effusions and mild cardiomegaly noted. 2. No lobar consolidation. 3. Upper limits of normal to mildly enlarged mediastinal and bilateral hilar lymph nodes, nonspecific but presumably reactive. Bravo Mendez MD Abdomen/Pelvis CT 05/17/16 0000 Signed Impressions: Service Date/Time: Tuesday, May 17, 2016 15:18 - CONCLUSION: 1. Heterogeneous liver, nonspecific but possibly fatty infiltration, hepatocellular disease or a combination of the two. Nothing focal. 2. Nonspecific distention of the gallbladder. No stone, perceptible inflammatory changes or ductal dilatation demonstrated. 3. No obstruction, inflammatory changes or perceptible mass of the GI tract. Bravo Mendez MD Chest X-Ray 05/16/16 0000 Signed Impressions: Service Date/Time: Monday, May 16, 2016 19:23 - CONCLUSION: No acute disease. Minimal interstitial densities likely chronic. Kilo Cotto MD Objective Remarks GENERAL: This is a well-nourished, well-developed patient, in no apparent distress. HEENT: NC, AT. CARDIOVASCULAR: Regular rate and rhythm. Grade 2 systolic murmur appreciated. RESPIRATORY: Clear to auscultation. Breath sounds equal bilaterally. No wheezes , rales, or rhonchi. GASTROINTESTINAL: Abdomen soft, non-tender, nondistended. Pain pump in RLQ. MUSCULOSKELETAL: Extremities without clubbing, cyanosis, or edema. NEURO: Alert & Oriented x4 to person, place, time, situation. Moves all ext x4. Normal finger to nose test. EOMI. PSYCH: Mood and affect appropriate. Procedures EGD/ colonoscopy Bone marrow biopsy Medications and IVs Current Medications Medications (Trade) Dose Ordered Sig/Prashant Route Start Time Stop Time Status Last Admin (Soma) 350 mg TID PRN PO 05/16/16 17:30 05/27/16 09:17 (Lasix) 20 mg DAILY PO 05/17/16 09:00 06/04/16 08:23 (Neurontin) 300 mg TID PO 05/16/16 18:00 06/04/16 12:41 (Synthroid) 25 mcg DAILY@06 PO 05/17/16 06:00 06/04/16 05:35 (KCl) 10 meq DAILY PO 05/17/16 09:00 06/04/16 08:23 (Pepcid) 20 mg BID PO 05/16/16 21:00 06/04/16 08:23 (NS Flush) 2 ml UNSCH PRN IV 05/16/16 17:45 (NS Flush) 2 ml BID IV 05/16/16 21:00 06/04/16 12:09 (Zofran Inj) 4 mg Q6H PRN IV 05/16/16 17:45 06/01/16 09:07 Acetaminophen 650 mg 650 mg Q6HR PRN PO 05/17/16 06:30 05/29/16 21:10 (Lr 1000 ml Inj) 1,000 ml @ 30 mls/hr Q24H IV 05/20/16 01:15 (Percocet 5-325 Mg) 1 tab Q4H PRN PO 05/20/16 10:00 05/25/16 15:44 (Canasa Supp) 1,000 mg HS RECTAL 05/20/16 21:00 Hold (Protonix) 40 mg DAILY PO 05/22/16 09:00 06/04/16 08:23 (Roxicodone) 10 mg Q4H PRN PO 05/21/16 16:00 06/04/16 08:41 (NS Flush) DAILY IVF 05/24/16 09:00 05/29/16 09:00 (Heparin Central Flush) DAILY IVF 05/24/16 09:00 05/30/16 18:10 (NS Flush) UNSCH PRN IVF 05/23/16 15:30 06/04/16 04:31 (Heparin Central Flush) UNSCH PRN IVF 05/23/16 15:30 06/02/16 04:01 (Colace) 100 mg BID PO 05/24/16 11:00 06/04/16 08:23 (Miralax) 17 gm DAILY PO 05/25/16 14:30 06/04/16 08:27 Lactic Acid 1 applic 1 applic BID PRN TOPICAL 05/25/16 14:30 (NS 1000 ml Inj) 1,000 ml @ 100 mls/hr Q10H IV 05/26/16 09:30 06/04/16 12:10 (Zyloprim) 300 mg DAILY PO 05/26/16 09:30 06/04/16 08:23 (Morphine Inj) 2 mg Q2HR PRN IV PUSH 05/27/16 08:45 06/02/16 17:23 (Lactulose Liq) 30 ml DAILY PO 05/27/16 09:00 06/04/16 08:23 (Valium) 10 mg Q12HR PO 05/28/16 09:00 06/04/16 08:23 (Restoril) 15 mg HS PRN PO 05/28/16 08:00 06/01/16 22:23 (Magic Mouthwash Adult Liq) 5 ml QID SWISH-SWAL 06/03/16 09:00 06/04/16 12:41 (Zovirax) 400 mg Q8HR PO 06/03/16 14:00 06/04/16 12:41 (Diflucan) 200 mg DAILY PO 06/03/16 09:00 06/04/16 08:23 Levofloxacin 250 mg 250 mg DAILY@11 PO 06/03/16 11:00 06/04/16 11:27 (NS 250 ml Inj) 250 ml @ 15 mls/hr ONCE ONCE IV 06/04/16 09:00 06/05/16 01:39 (Tylenol) 650 mg Q4H PRN PO 06/04/16 09:00 06/04/16 13:01 06/04/16 11:27 (Benadryl) 25 mg Q4H PRN PO 06/04/16 09:00 06/04/16 13:01 06/04/16 11:27 A/P Problem List: (1) Pancytopenia ICD Code: D61.818 Status: Acute (2) GI bleed ICD Code: K92.2 Status: Acute (3) AML (acute myeloid leukemia) ICD Code: C92.00 Status: Acute (4) Symptomatic anemia ICD Code: D64.9 Status: Acute (5) UTI (urinary tract infection) ICD Code: N39.0 Status: Acute Assessment and Plan 61-year-old female with recent hemorrhoidectomy 3 weeks ago presented with severe symptomatic anemia, thrombocytopenia, and leukopenia. AML Bone marrow biopsy revealed AML. Oncology consult appreciated. - chemotherapy planning per oncology. Port placement 05/23. Chemo started 05/27. - On IVFs and allopurinol to help prevent tumor lysis syndrome. - Follow-up CBC and transfuse as needed. Transfusing 1 unit plts 06/04. - neutropenic precautions. - antibiotics per oncology. Symptomatic anemia and GI bleeding Recent hemorrhoidectomy 3 weeks ago. Patient denies any active bleeding since the procedure. Hemoccult in the emergency room was positive. Appreciate GI following. S/p EGD/colonoscopy 05/20 which revealed gastritis and a rectal ulcer. - Continue Protonix. Monitor for bleeding. - Follow CBC and transfuse as needed. Stable 06/04. Headache New in onset, constant over the past few days. Pt also notes difficulty reading s/t blurry vision over the past few days. CT brain negative for an acute process. Fioricet did not help. S/p LP per oncology. - pain control as needed. - consider MRI. Chronic back pain Stable. Patient has a Dilaudid/fentanyl pump implanted on the right lower quadrant of her abdomen. The pain pump will run out 06/06. - continue home meds. - pain control as needed for breakthrough. - pain pump needs to be refilled and we are currently exploring options. Consider palliative care consult for pain management assistance if pain pump unable to be refilled. Anxiety The pt has been on Valium for many years but is reporting breakthrough anxiety. - continue Valium as needed. GI prophylaxis: Protonix/ ranitidine. DVT PPx: SCDs. Chemoprophylaxis contraindicated. Discharge Planning Awaiting clinical improvement. Problem Qualifiers (1) GI bleed: Qualified Code: K92.2 - Gastrointestinal hemorrhage, unspecified gastrointestinal hemorrhage type (2) AML (acute myeloid leukemia): Qualified Code: C92.00 - Acute myeloid leukemia not having achieved remission Gustavo Mejia DO Jun 04, 2016 13:00
--- NOTE | 2016-06-04 21:53 | RADRPT ---
EXAM DATE/TIME: 06/04/2016 21:23 [facility] COMPARISON: CHEST SINGLE AP, May 16, 2016, 19:23. INDICATIONS : Fever. MEDICAL HISTORY : Leukemia. SURGICAL HISTORY : Infusaport. ENCOUNTER: Subsequent ACUITY: 3 weeks PAIN SCORE: 0/10 LOCATION: chest FINDINGS: A single view of the chest demonstrates the lungs to be symmetrically aerated without evidence of mas s, infiltrate or effusion. Right jugular venous catheter is seen with tip in the SVC. The cardiomedia stinal contours are unremarkable. Osseous structures are intact. Cervical fusion plate. CONCLUSION: No acute disease. Kilo Cotto MD on June 04, 2016 at 21:51 Board Certified Radiologist. This report was verified electronically.
[2016-06-04] MEDS: ACETAMINOPHEN 325 MG TAB PO PRN (22:05)
[2016-06-04] MEDS: CEFEPIME 2000 MG/NS 100 ML IV SCH ×2 (22:44)
[2016-06-04 22:57] LABS: BLOOD, URINE NEG (NEG); GLUCOSE,URINE NEG (NEG); KETONE, URINE NEG (NEG); NITRITE,URINE NEG (NEG); PH, URINE 7.5 (5.0-8.5); URINE COLOR LIGHT-YELLOW (YELLW/STRAW)
[2016-06-04 23:00] LABS: COMMENT (UR) CULT NOT INDICATED; CULTURE IF INDICATED CULT NOT INDICATED
[2016-06-05] MEDS: LACTATED RINGER'S 1000 ML IV SCH ×2 (01:05→23:21)
[2016-06-05 04:00] VITALS: BP 112/59; PULSE 115; RESP 16; TEMP 99.8; O2SAT 96
[2016-06-05] MEDS: ACYCLOVIR 200 MG CAP PO SCH ×3 (05:17→20:32)
[2016-06-05] MEDS: LEVOTHYROXINE SODIUM 25 MCG TAB PO SCH (05:17)
[2016-06-05 06:04] LABS: HEMATOCRIT 23.2 % (35.0-46.0); MEAN CELL VOLUME 92.9 FL (80.0-100.0); MEAN CORPUSCULAR HEMOGLOBIN 32.1 PG (27.0-34.0); MEAN CORPUSCULAR HGB CONC 34.6 % (32.0-36.0); PLATELET COUNT 39 TH/MM3 (150-450); RED BLOOD COUNT 2.49 MIL/MM3 (4.00-5.30); RED CELL DISTRIBUTION WIDTH 14.5 % (11.6-17.2); WHITE BLOOD COUNT 0.5 TH/MM3 (4.0-11.0)
[2016-06-05 06:16] LABS: POTASSIUM 4.1 MEQ/L (3.5-5.1)
[2016-06-05 06:24] LABS: HEMO FLAGS AUTO DIFF
[2016-06-05] MEDS: NYSTAT/DIPHENHY/LIDO MOUTHWASH (Adult) 120ML SWISH-SWAL SCH ×4 (07:57→20:32)
[2016-06-05] MEDS: LACTULOSE SYRUP 20 GM/30 ML CUP PO SCH (07:57)
[2016-06-05] MEDS: FAMOTIDINE 20 MG TAB PO SCH ×2 (07:57→20:32)
[2016-06-05] MEDS: GABAPENTIN 300 MG CAP PO SCH ×3 (07:57→17:21)
[2016-06-05] MEDS: POTASSIUM CHLORIDE 10 MEQ CAP PO SCH (07:57)
[2016-06-05] MEDS: FUROSEMIDE 20 MG TAB PO SCH (07:58)
[2016-06-05] MEDS: DIAZEPAM 10 MG TAB PO SCH ×2 (07:58→20:32)
[2016-06-05] MEDS: DOCUSATE SODIUM 100 MG CAP PO SCH (07:58)
[2016-06-05] MEDS: ALLOPURINOL 300 MG TAB PO SCH (07:58)
[2016-06-05] MEDS: FLUCONAZOLE 200 MG TAB PO SCH (07:58)
[2016-06-05] MEDS: ACETAMINOPHEN 325 MG TAB PO PRN (07:59)
[2016-06-05] MEDS: PANTOPRAZOLE SOD 40 MG DELAYED RELEASE TAB PO SCH (07:59)
[2016-06-05 08:00] VITALS: BP 120/58; PULSE 114; RESP 20; TEMP 100.6; O2SAT 97
[2016-06-05] MEDS: SODIUM CHLORIDE 0.9% FLUSH 5 ML FLUSH IV SCH ×2 (08:00→20:33)
[2016-06-05 08:46] LABS: PLATELET ESTIMATE SMEAR RARE (NORMAL); PLATELET MORPHOLOGY NORMAL (NORMAL); SCAN/DIFF FINAL DIFF MANUAL; WBC DIFF SAMPLE 50
[2016-06-05] MEDS: POLYETHYLENE GLYCOL 17 GM PKG PO SCH (09:00)
[2016-06-05] MEDS: SODIUM CHLORIDE 0.9% FLUSH 5 ML FLUSH IVF SCH (09:00)
[2016-06-05 10:21] VITALS: TEMP 98.9
[2016-06-05] MEDS: CEFEPIME 2000 MG/NS 100 ML IV SCH ×2 (10:41)
[2016-06-05] MEDS: SODIUM CHLOR 0.9% 1000 ML INJ 1,000 ML IV SCH ×2 (10:41→20:36)
--- NOTE | 2016-06-05 11:27 | HHI.PR ---
Subjective Remarks The patient says that she was having some diarrhea. She said that she had some lower abdominal pain on the left side. She has been tolerating her Ensure. Discussed with nursing. Objective Vitals Vital Signs Date Time Temp Pulse Resp B/P Pulse Ox O2 Delivery O2 Flow Rate FiO2 06/05/16 10:21 98.9 06/05/16 08:00 100.6 114 20 120/58 97 06/05/16 04:00 99.8 115 16 112/59 96 06/04/16 23:56 100.2 119 16 103/58 93 06/04/16 20:00 101.3 113 16 138/67 96 06/04/16 15:50 99.4 84 20 128/61 99 06/04/16 12:30 98.8 96 18 134/68 96 06/04/16 12:16 98.4 77 18 130/60 98 06/04/16 11:54 96.9 78 20 131/60 98 06/04/16 11:50 98.2 103 20 139/65 97 I/O 06/04/16 06/04/16 06/04/16 06/05/16 06/05/16 06/05/16 07:00 15:00 23:00 07:00 15:00 23:00 Intake Total 1760 ml 1580 ml 1028 ml 1665 ml 360 ml Output Total 7 ml 400 ml 400 ml Balance 1760 ml 1573 ml 628 ml 1265 ml 360 ml Intake Oral 600 ml 1580 ml 300 ml 250 ml 360 ml IV Total 1160 ml 728 ml 1415 ml Output Urine Total 7 ml 400 ml 400 ml # Voids 3 1 1 # Bowel Movements 1 0 0 Result Diagram: 06/05/16 0524 06/05/16 0524 Imaging Last Impressions Chest X-Ray 06/04/16 0000 Signed Impressions: Service Date/Time: Saturday, June 04, 2016 21:23 - CONCLUSION: No acute disease. Kilo Cotto MD Lumbar Puncture Fluoroscopy 05/23/16 0000 Signed Impressions: Service Date/Time: Monday, May 23, 2016 14:16 - CONCLUSION: Uncomplicated fluoroscopically guided lumbar puncture. Bubba Cherry MD Catheter Placement X-Ray 05/23/16 0000 Signed Impressions: Service Date/Time: Monday, May 23, 2016 14:16 - CONCLUSION: Uncomplicated Donaldson catheter placement as above. Bubba Cherry MD Bone Biopsy CT 05/20/16 0846 Signed Impressions: Service Date/Time: Friday, May 20, 2016 09:13 - CONCLUSION: 1. Uncomplicated CT guided bone marrow aspirate. 2. Uncomplicated CT guided bone marrow biopsy. Yazan Saucedo MD Head CT 05/20/16 0000 Signed Impressions: Service Date/Time: Friday, May 20, 2016 15:16 - CONCLUSION: Normal examination for a patient of this age. No significant change has occurred. Emilio Thomas MD Chest CT 05/17/16 0000 Signed Impressions: Service Date/Time: Tuesday, May 17, 2016 15:14 - CONCLUSION: 1. 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 There are trace to very small bilateral pleural effusions and mild cardiomegaly noted. 2. No lobar consolidation. 3. Upper limits of normal to mildly enlarged mediastinal and bilateral hilar lymph nodes, nonspecific but presumably reactive. Bravo Mendez MD Abdomen/Pelvis CT 05/17/16 0000 Signed Impressions: Service Date/Time: Tuesday, May 17, 2016 15:18 - CONCLUSION: 1. Heterogeneous liver, nonspecific but possibly fatty infiltration, hepatocellular disease or a combination of the two. Nothing focal. 2. Nonspecific distention of the gallbladder. No stone, perceptible inflammatory changes or ductal dilatation demonstrated. 3. No obstruction, inflammatory changes or perceptible mass of the GI tract. Bravo Mendez MD Objective Remarks GENERAL: This is a well-nourished, well-developed patient, in no apparent distress. HEENT: NC, AT. CARDIOVASCULAR: Regular rate and rhythm. Grade 2 systolic murmur appreciated. RESPIRATORY: Clear to auscultation. Breath sounds equal bilaterally. No wheezes , rales, or rhonchi. GASTROINTESTINAL: Abdomen soft, tender in the left lower quadrant, nondistended. Pain pump in RLQ. MUSCULOSKELETAL: Extremities without clubbing, cyanosis, or edema. NEURO: Alert & Oriented x4 to person, place, time, situation. Moves all ext x4. Normal finger to nose test. EOMI. PSYCH: Mood and affect appropriate. Procedures EGD/ colonoscopy Bone marrow biopsy Medications and IVs Current Medications Medications (Trade) Dose Ordered Sig/Prashant Route Start Time Stop Time Status Last Admin (Soma) 350 mg TID PRN PO 05/16/16 17:30 05/27/16 09:17 (Lasix) 20 mg DAILY PO 05/17/16 09:00 06/05/16 07:58 (Neurontin) 300 mg TID PO 05/16/16 18:00 06/05/16 07:57 (Synthroid) 25 mcg DAILY@06 PO 05/17/16 06:00 06/05/16 05:17 (KCl) 10 meq DAILY PO 05/17/16 09:00 06/05/16 07:57 (Pepcid) 20 mg BID PO 05/16/16 21:00 06/05/16 07:57 (NS Flush) 2 ml UNSCH PRN IV 05/16/16 17:45 (NS Flush) 2 ml BID IV 05/16/16 21:00 06/05/16 08:00 (Zofran Inj) 4 mg Q6H PRN IV 05/16/16 17:45 06/01/16 09:07 Acetaminophen 650 mg 650 mg Q6HR PRN PO 05/17/16 06:30 06/05/16 07:59 (Lr 1000 ml Inj) 1,000 ml @ 30 mls/hr Q24H IV 05/20/16 01:15 (Percocet 5-325 Mg) 1 tab Q4H PRN PO 05/20/16 10:00 05/25/16 15:44 (Canasa Supp) 1,000 mg HS RECTAL 05/20/16 21:00 Hold (Protonix) 40 mg DAILY PO 05/22/16 09:00 06/05/16 07:59 (Roxicodone) 10 mg Q4H PRN PO 05/21/16 16:00 06/05/16 10:40 (NS Flush) DAILY IVF 05/24/16 09:00 05/29/16 09:00 (Heparin Central Flush) DAILY IVF 05/24/16 09:00 05/30/16 18:10 (NS Flush) UNSCH PRN IVF 05/23/16 15:30 06/04/16 04:31 (Heparin Central Flush) UNSCH PRN IVF 05/23/16 15:30 06/02/16 04:01 (Colace) 100 mg BID PO 05/24/16 11:00 06/05/16 07:58 (Miralax) 17 gm DAILY PO 05/25/16 14:30 06/04/16 08:27 Lactic Acid 1 applic 1 applic BID PRN TOPICAL 05/25/16 14:30 (NS 1000 ml Inj) 1,000 ml @ 100 mls/hr Q10H IV 05/26/16 09:30 06/05/16 10:41 (Zyloprim) 300 mg DAILY PO 05/26/16 09:30 06/05/16 07:58 (Morphine Inj) 2 mg Q2HR PRN IV PUSH 05/27/16 08:45 06/02/16 17:23 (Lactulose Liq) 30 ml DAILY PO 05/27/16 09:00 06/05/16 07:57 (Valium) 10 mg Q12HR PO 05/28/16 09:00 06/05/16 07:58 (Restoril) 15 mg HS PRN PO 05/28/16 08:00 06/01/16 22:23 (Magic Mouthwash Adult Liq) 5 ml QID SWISH-SWAL 06/03/16 09:00 06/05/16 07:57 (Zovirax) 400 mg Q8HR PO 06/03/16 14:00 06/05/16 05:17 Fluconazole 200 mg 200 mg DAILY PO 06/03/16 09:00 06/05/16 07:58 (Maxipime Inj/NS Inj) 100 ml @ 200 mls/hr Q12H IV 06/04/16 22:00 06/05/16 10:41 A/P Problem List: (1) Pancytopenia ICD Code: D61.818 Status: Acute (2) GI bleed ICD Code: K92.2 Status: Acute (3) AML (acute myeloid leukemia) ICD Code: C92.00 Status: Acute (4) Symptomatic anemia ICD Code: D64.9 Status: Acute (5) UTI (urinary tract infection) ICD Code: N39.0 Status: Acute Assessment and Plan 61-year-old female with recent hemorrhoidectomy 3 weeks ago presented with severe symptomatic anemia, thrombocytopenia, and leukopenia. AML Bone marrow biopsy revealed AML. Oncology consult appreciated. - chemotherapy planning per oncology. Port placement 05/23. Chemo started 05/27. - On IVFs and allopurinol to help prevent tumor lysis syndrome. - Follow-up CBC and transfuse as needed. Transfused 1 unit plts 06/04. - neutropenic precautions. - antibiotics per oncology. Neutropenic fever WBC count continues to decrease. - cefepime per oncology. - ID consult pending. - follow culture data. Symptomatic anemia and GI bleeding Recent hemorrhoidectomy 3 weeks ago. Patient denies any active bleeding since the procedure. Hemoccult in the emergency room was positive. Appreciate GI following. S/p EGD/colonoscopy 05/20 which revealed gastritis and a rectal ulcer. - Continue Protonix. Monitor for bleeding. - Follow CBC and transfuse as needed. Stable 06/05. Headache New in onset, constant over the past few days. Pt also notes difficulty reading s/t blurry vision over the past few days. CT brain negative for an acute process. Fioricet did not help. S/p LP per oncology. - pain control as needed. Chronic back pain Stable. Patient has a Dilaudid/fentanyl pump implanted on the right lower quadrant of her abdomen. The pain pump will run out 06/06. - continue home meds. - pain control as needed for breakthrough. - pain pump needs to be refilled and we are currently exploring options. Consider palliative care consult for pain management assistance if pain pump unable to be refilled. Anxiety The pt has been on Valium for many years but is reporting breakthrough anxiety. - continue Valium as needed. Abdominal pain/ diarrhea Pt with abdominal pain in the LLQ. She also has diarrhea. - hold bowel regimen. - CT abdomen pending. GI prophylaxis: Protonix/ ranitidine. DVT PPx: SCDs. Chemoprophylaxis contraindicated. Discharge Planning Awaiting clinical improvement. Problem Qualifiers (1) GI bleed: Qualified Code: K92.2 - Gastrointestinal hemorrhage, unspecified gastrointestinal hemorrhage type (2) AML (acute myeloid leukemia): Qualified Code: C92.00 - Acute myeloid leukemia not having achieved remission Gustavo Mejia DO Jun 05, 2016 11:27
--- NOTE | 2016-06-05 11:44 | PD.ONC.PN ---
Subjective Subjective Remarks Tmax 101.3 overnight. Patient had a hard time sleeping last night. She had some nausea and a few loose stools. She continues to have her chronic back pain. Objective Data Date Time Temp Pulse Resp B/P Pulse Ox O2 Delivery O2 Flow Rate FiO2 06/05/16 10:21 98.9 06/05/16 08:00 100.6 114 20 120/58 97 06/05/16 04:00 99.8 115 16 112/59 96 06/04/16 23:56 100.2 119 16 103/58 93 06/04/16 20:00 101.3 113 16 138/67 96 06/04/16 15:50 99.4 84 20 128/61 99 06/04/16 12:30 98.8 96 18 134/68 96 06/04/16 12:16 98.4 77 18 130/60 98 06/04/16 11:54 96.9 78 20 131/60 98 06/04/16 11:50 98.2 103 20 139/65 97 06/05/16 06/05/16 06/05/16 07:00 15:00 23:00 Intake Total 1665 ml 360 ml Output Total 400 ml Balance 1265 ml 360 ml Result Diagram: 06/05/1624 06/05/1624 Laboratory Results Laboratory Tests Test 06/04/16 06/05/16 22:15 05:24 Urine Color LIGHT-YELLOW Urine Turbidity CLEAR Urine pH 7.5 Urine Specific [place] 1.010 Urine Protein NEG mg/dL Urine Glucose (UA) NEG mg/dL Urine Ketones NEG mg/dL Urine Occult Blood NEG Urine Nitrite NEG Urine Bilirubin NEG Urine Urobilinogen LESS THAN 2.0 MG/DL Urine Leukocyte Esterase NEG Urine RBC LESS THAN 1 /hpf Urine WBC LESS THAN 1 /hpf Microscopic Urinalysis Comment CULT NOT INDICATED White Blood Count 0.5 TH/MM3 Red Blood Count 2.49 MIL/MM3 Hemoglobin 8.0 GM/DL Hematocrit 23.2 % Mean Corpuscular Volume 92.9 FL Mean Corpuscular Hemoglobin 32.1 PG Mean Corpuscular Hemoglobin 34.6 % Concent Red Cell Distribution Width 14.5 % Platelet Count 39 TH/MM3 Mean Platelet Volume 8.0 FL Neutrophils (%) (Auto) % Lymphocytes (%) (Auto) % Monocytes (%) (Auto) % Eosinophils (%) (Auto) % Basophils (%) (Auto) % Neutrophils # (Auto) TH/MM3 Lymphocytes # (Auto) TH/MM3 Monocytes # (Auto) TH/MM3 Eosinophils # (Auto) TH/MM3 Basophils # (Auto) TH/MM3 CBC Comment AUTO DIFF Differential Total Cells 50 Counted Lymphocytes % 100 % Differential Comment FINAL DIFF MANUAL Platelet Estimate RARE Platelet Morphology Comment NORMAL Red Cell Morphology Comment NORMAL Sodium Level 138 MEQ/L Potassium Level 4.1 MEQ/L Chloride Level 105 MEQ/L Carbon Dioxide Level 25.0 MEQ/L Anion Gap 8 MEQ/L Blood Urea Nitrogen 10 MG/DL Creatinine 0.59 MG/DL Estimat Glomerular Filtration 104 ML/MIN Rate Random Glucose 99 MG/DL Calcium Level 7.9 MG/DL Magnesium Level 2.0 MG/DL Culture Results Microbiology Date/Time Procedure Status Source Growth 06/04/16 21:15 Aerobic Blood Culture - Preliminary Resulted Blood Peripheral NO GROWTH IN 1 DAY 06/04/16 21:15 Anaerobic Blood Culture - Preliminary Resulted Blood Peripheral NO GROWTH IN 1 DAY 06/04/16 22:15 Aerobic Blood Culture - Preliminary Resulted Blood Line NO GROWTH IN 1 DAY 06/04/16 22:15 Anaerobic Blood Culture - Preliminary Resulted Blood Line NO GROWTH IN 1 DAY Administered Medications Medications (Trade) Dose Ordered Sig/Prashant Route PRN Reason Start Time Stop Time Status Last Admin Dose Admin Carisoprodol (Soma) 350 mg TID PRN PO PAIN 05/16/16 17:30 05/27/16 09:17 Furosemide (Lasix) 20 mg DAILY PO 05/17/16 09:00 06/05/16 07:58 Gabapentin (Neurontin) 300 mg TID PO 05/16/16 18:00 06/05/16 07:57 Levothyroxine Sodium (Synthroid) 25 mcg DAILY@06 PO 05/17/16 06:00 06/05/16 05:17 Potassium Chloride (KCl) 10 meq DAILY PO 05/17/16 09:00 06/05/16 07:57 Famotidine (Pepcid) 20 mg BID PO 05/16/16 21:00 06/05/16 07:57 IV Flush (NS Flush) 2 ml BID IV 05/16/16 21:00 06/05/16 08:00 Ondansetron HCl (Zofran Inj) 4 mg Q6H PRN IV NAUSEA 05/16/16 17:45 06/01/16 09:07 Acetaminophen (Tylenol) 650 mg Q6HR PRN PO headache 05/17/16 06:30 06/05/16 07:59 Oxycodone/ Acetaminophen (Percocet 5-325 Mg) 1 tab Q4H PRN PO pain 1-5 05/20/16 10:00 05/25/16 15:44 Pantoprazole Sodium (Protonix) 40 mg DAILY PO 05/22/16 09:00 06/05/16 07:59 Oxycodone HCl (Roxicodone) 10 mg Q4H PRN PO pain 6-10 05/21/16 16:00 06/05/16 10:40 IV Flush (NS Flush) DAILY IVF 05/24/16 09:00 05/29/16 09:00 Heparin Sodium (Porcine) (Heparin Central Flush) DAILY IVF 05/24/16 09:00 05/30/16 18:10 IV Flush (NS Flush) UNSCH PRN IVF SEE PROTOCOL 05/23/16 15:30 06/04/16 04:31 Heparin Sodium (Porcine) (Heparin Central Flush) UNSCH PRN IVF SEE PROTOCOL 05/23/16 15:30 06/02/16 04:01 Docusate Sodium (Colace) 100 mg BID PO 05/24/16 11:00 Hold 06/05/16 07:58 Polyethylene Glycol 17 gm 17 gm DAILY PO 05/25/16 14:30 Hold 06/04/16 08:27 Sodium Chloride (NS 1000 ml Inj) 1,000 ml @ 100 mls/hr Q10H IV 05/26/16 09:30 06/05/16 10:41 Allopurinol (Zyloprim) 300 mg DAILY PO 05/26/16 09:30 06/05/16 07:58 Morphine Sulfate (Morphine Inj) 2 mg Q2HR PRN IV PUSH SEVERE BREAKTHROUGH PAIN 05/27/16 08:45 06/02/16 17:23 Lactulose (Lactulose Liq) 30 ml DAILY PO 05/27/16 09:00 Hold 06/05/16 07:57 Diazepam (Valium) 10 mg Q12HR PO 05/28/16 09:00 06/05/16 07:58 Temazepam (Restoril) 15 mg HS PRN PO SLEEP 05/28/16 08:00 06/01/16 22:23 Multi-Ingredient Mouthwash/Gargle (Magic Mouthwash Adult Liq) 5 ml QID SWISH-SWAL 06/03/16 09:00 06/05/16 07:57 Acyclovir (Zovirax) 400 mg Q8HR PO 06/03/16 14:00 06/05/16 05:17 Fluconazole 200 mg 200 mg DAILY PO 06/03/16 09:00 06/05/16 07:58 Cefepime HCl/ Sodium Chloride (Maxipime Inj/NS Inj) 100 ml @ 200 mls/hr Q12H IV 06/04/16 22:00 06/05/16 10:41 Objective Remarks GENERAL: Middle aged female, sitting up in room in [facility]. SKIN: Warm and dry. Donaldson catheter, right chest wall. HEAD: Normocephalic. EYES: No injection or drainage. NECK: Supple, trachea midline. CARDIOVASCULAR: Regular rate and rhythm. RESPIRATORY: Breath sounds equal bilaterally. No accessory muscle use. GASTROINTESTINAL: Abdomen soft, mildly TTP, LLQ, nondistended. EXTREMITIES: No cyanosis. no edema. NEUROLOGICAL: awake and alert, normal speech. moving all extremities. Assessment/Plan Problem List: (1) AML (acute myeloid leukemia) Status: Acute Plan: 06/05/16: spiked fever overnight. started on Cefepime. Levaquin stopped. ID consulted. CT ab/pelvis. 06/04/16: D9. 1 unit plt 06/03/16: D8 chemo finishes late tonight. started on acyclovir/diflucan/levaquin for prophylaxis. 06/01/16: D6. nauseated. otherwise no events. continue chemo. 05/31/16:D5. no events. 05/30/16: D4 chemotherapy. no transfusion today. 05/29/16: D3 chemotherapy. Tolerated well Blood counts trending lower. Transfuse PRBC 2U. CSF cytology negative. 05/28/16: Tolerated chemo well, no significant side effect. Blood counts started to trend down. 05/27/16: D1. Albina-C + Idarubicin. AML w/ intermediate risk cytogenetics. FLT3 is pending. (2) Pancytopenia Status: Acute Plan: transfuse for platelets less than 10k and a Hgb of less than 7. (3) Rectal bleed Status: Resolved Plan: -- Controlled. No new bleeding. EGD/colonoscopy on 05/20/15 showed gastritis, irregular Z line and rectal nodule. Path report negative for malignancy. -- Had hemorrhoid surgery three weeks prior to admission with Dr. Schwartz. (4) presence of pain pump Status: Chronic Plan: --patient with intrathecal pain pump --managed by Dr. Omer outpatient --pain pump will alarm on 06/06 Assessment 61 y/o female with pancytopenia, suspected AML Plan 1. monitor CBC 2. supportive care 3. CT ab/pelvis 4. ID consult Attending Statement The exam, history, and the medical decision-making described in the above note were completed with the assistance of the mid-level provider. I reviewed and agree with the findings presented. I attest that I had a [id number] encounter with the patient on the same day, and personally performed and documented my assessment and findings in the medical record.Had fever last night. Headache has improved. No significant cough. No diarrhea/abdominal pain. No dysuria. Continue abx. Monitor CBC and supportive care. Problem Qualifiers (1) AML (acute myeloid leukemia): Qualified Code: C92.00 - Acute myeloid leukemia not having achieved remission Radha Lawrence Jun 05, 2016 11:43 Ryan Tripp MD Jun 05, 2016 14:50
[2016-06-05 12:00] VITALS: BP 123/83; PULSE 68; RESP 18; TEMP 96.1; O2SAT 99
[2016-06-05] MEDS: MORPHINE SULFATE 4 MG/ML INJ IV PUSH PRN (12:52)
[2016-06-05] MEDS ORDERED: DIATRIZOATE MEGLUM/DIATRIZOATE SOD 9 ML CUP PO ONE (13:00)
--- NOTE | 2016-06-05 13:11 | PD.CONS ---
History of Present Illness Service Infectious Disease Consult Requested By Fer Jennings Reason for Consult Evaluate patient with fever and neutropenia Primary Care Physician Eloy Davis MD Diagnoses: History of Present Illness Patient seen and examined. Records review. Patient is a 61-year-old female presented to the hospital complaining of shortness of breath and some occasional chest tightness. She probably had undergone surgery for her hemorrhoids about 3 weeks prior to admission. She has been feeling fatigued since after the procedure and really has not improved. More recently she was getting more short of breath, dyspnea on exertion, with some palpitations and some dizziness. She has had some constipation. No abdominal pain. No bleeding noted in her stool. No vomiting. No urinary complaints. No respiratory complaint. Evaluation in the ED showed some mild infiltrate at the base. Her white count was found to be low and her absolute neutrophil count was 150. She was thrombocytopenic, and her hemoglobin was down to 5.8. Patient since admission has been diagnosed to have acute myeloid leukemia on her bone marrow biopsy as well as flow cytometry. She had placement of a Donaldson on her right IJ on May 23, and she was started on induction chemotherapy on May 26. Patient's WBC count has been decreasing. Since last night she started having fevers. She was started on cefepime last night. Prior to that she was on antibiotic prophylaxis which includes Levaquin, acyclovir, and Diflucan. Patient currently is complaining of some mild dry cough, not short of breath and denies chest pain. Currently denies any headache. No sore throat. The source in her mouth and swallowing difficulty has improved. She denies any nausea or vomiting. She had noted some pain in her suprapubic region just starting today. She's had diarrhea today. The Donaldson catheter has been working well. She has no Ortega catheter, and he is voiding without any difficulty. She is currently on cefepime IV. Infectious disease consultation requested to evaluate the patient with fever and neutropenia. Review of Systems Constitutional: COMPLAINS OF: Fatigue, Fever, Chills Eyes: DENIES: Eye pain Ears, nose, mouth, throat: COMPLAINS OF: Throat pain, Hoarseness, DENIES: Nasal discharge, Ear Pain, Running Nose, Sinus Pain, Toothache Respiratory: COMPLAINS OF: Cough, DENIES: Hemoptysis, Sputum production, Shortness of breath Cardiovascular: DENIES: Chest pain, Palpitations, Syncope Gastrointestinal: COMPLAINS OF: Abdominal pain, Diarrhea, DENIES: Nausea, Vomiting, Difficulty Swallowing Genitourinary: DENIES: Urgency, Hematuria, Dysuria Musculoskeletal: COMPLAINS OF: Back pain, DENIES: Joint pain, Joint Swelling Integumentary: DENIES: Rash Immunologic/allergic: DENIES: Urticaria Neurologic: DENIES: Headache Psychiatric: DENIES: Anxiety Past Family Social History Allergies: Coded Allergies: No Known Allergies (Verified , 05/16/16) Past Medical History Hypothyroidism GERD Chronic back pain Peripheral edema Hemorrhoids Past Surgical History Back and neck surgery Rotator cuff surgery Pain pump placement on the right lower abdomen Hemorrhoidectomy Active Ordered Medications Protonix Potassium Magic mouthwash Zofran Synthroid Morphine Oxycodone Neurontin Heparin Pepcid Diflucan Lasix Tylenol Acyclovir Allopurinol Soma Cefepime Valium Social History Denies smoking Denies alcohol abuse Denies illicit drug use Physical Exam Vital Signs Vital Signs Date Time Temp Pulse Resp B/P Pulse Ox O2 Delivery O2 Flow Rate FiO2 06/05/16 10:21 98.9 06/05/16 08:00 100.6 114 20 120/58 97 06/05/16 04:00 99.8 115 16 112/59 96 06/04/16 23:56 100.2 119 16 103/58 93 06/04/16 20:00 101.3 113 16 138/67 96 06/04/16 15:50 99.4 84 20 128/61 99 Physical Exam GENERAL: This is a well-nourished, well-developed female, awake and alert, not in any respiratory distress. She does not look toxic appearing. SKIN: Warm and dry. No generalized rash, no ecchymosis or embolic lesions noted. HEAD: Atraumatic. Normocephalic. No temporal or scalp tenderness. EYES: Pale conjunctivae, no petechia or hemorrhage. Pupils equal round and reactive. Extraocular motions intact. No scleral icterus. No injection or drainage. ENT: Nose without bleeding, or purulent drainage. Moist oral mucosa. Throat without erythema, or exudate. Uvula midline. Airway patent. NECK: Trachea midline. No JVD or lymphadenopathy. Supple, nontender, no meningeal signs. CARDIOVASCULAR: Regular rate and rhythm without murmurs, gallops, or rubs. RESPIRATORY: Clear to auscultation. Breath sounds equal bilaterally. No wheezes , rales, or rhonchi. Donaldson catheter is in the right upper chest, the site is dry with no purulence or redness. The tunnel portion of the catheter has no tenderness swelling or erythema. GASTROINTESTINAL: Abdomen soft, nondistended, bowel sounds are present, has mild tenderness in the suprapubic region. No rebound or guarding. She has her pain pump in the right lower quadrant, with well-healed incision, with no evidence of infection or tenderness. MUSCULOSKELETAL: Extremities without clubbing, cyanosis, or edema. No joint tenderness, effusion, or edema noted. No calf tenderness. Negative Homans sign bilaterally. NEUROLOGICAL: Awake and alert. Cranial nerves II through XII intact. Motor and sensory grossly within normal limits. Five out of 5 muscle strength in all muscle groups. Normal speech. PSYCH: Normal affect, calm and cooperative LINE: Donaldson cath with no evidence of infection Laboratory Laboratory Tests Test 06/04/16 06/05/16 22:15 05:24 Urine Color LIGHT-YELLOW Urine Turbidity CLEAR Urine pH 7.5 Urine Specific [place] 1.010 Urine Protein NEG Urine Glucose (UA) NEG Urine Ketones NEG Urine Occult Blood NEG Urine Nitrite NEG Urine Bilirubin NEG Urine Urobilinogen LESS THAN 2.0 Urine Leukocyte Esterase NEG Urine RBC LESS THAN 1 Urine WBC LESS THAN 1 Microscopic Urinalysis Comment CULT NOT INDICATED White Blood Count 0.5 Red Blood Count 2.49 Hemoglobin 8.0 Hematocrit 23.2 Mean Corpuscular Volume 92.9 Mean Corpuscular Hemoglobin 32.1 Mean Corpuscular Hemoglobin 34.6 Concent Red Cell Distribution Width 14.5 Platelet Count 39 Mean Platelet Volume 8.0 Neutrophils (%) (Auto) Lymphocytes (%) (Auto) Monocytes (%) (Auto) Eosinophils (%) (Auto) Basophils (%) (Auto) Neutrophils # (Auto) Lymphocytes # (Auto) Monocytes # (Auto) Eosinophils # (Auto) Basophils # (Auto) CBC Comment AUTO DIFF Differential Total Cells 50 Counted Lymphocytes % 100 Differential Comment FINAL DIFF MANUAL Platelet Estimate RARE Platelet Morphology Comment NORMAL Red Cell Morphology Comment NORMAL Sodium Level 138 Potassium Level 4.1 Chloride Level 105 Carbon Dioxide Level 25.0 Anion Gap 8 Blood Urea Nitrogen 10 Creatinine 0.59 Estimat Glomerular Filtration 104 Rate Random Glucose 99 Calcium Level 7.9 Magnesium Level 2.0 Date/Time Procedure Status Source Growth 06/04/16 22:15 Aerobic Blood Culture - Preliminary Resulted Blood Line NO GROWTH IN 1 DAY 06/04/16 22:15 Anaerobic Blood Culture - Preliminary Resulted Blood Line NO GROWTH IN 1 DAY Result Diagram: 06/05/16 0524 06/05/16 0524 Imaging RADIOLOGY STUDIES/FILMS REVIEWED Chest X-Ray 06/04/16 0000 Signed Impressions: Service Date/Time: Saturday, June 04, 2016 21:23 - CONCLUSION: No acute disease. Kilo Cotto MD Lumbar Puncture Fluoroscopy 05/23/16 0000 Signed Impressions: Service Date/Time: Monday, May 23, 2016 14:16 - CONCLUSION: Uncomplicated fluoroscopically guided lumbar puncture. Bbuba Cherry MD Catheter Placement X-Ray 05/23/16 0000 Signed Impressions: Service Date/Time: Monday, May 23, 2016 14:16 - CONCLUSION: Uncomplicated Donaldson catheter placement as above. Bubba Cherry MD Bone Biopsy CT 05/20/16 0846 Signed Impressions: Service Date/Time: Friday, May 20, 2016 09:13 - CONCLUSION: 1. Uncomplicated CT guided bone marrow aspirate. 2. Uncomplicated CT guided bone marrow biopsy. Yazan Saucedo MD Head CT 05/20/16 0000 Signed Impressions: Service Date/Time: Friday, May 20, 2016 15:16 - CONCLUSION: Normal examination for a patient of this age. No significant change has occurred. Emilio Thomas MD Chest CT 05/17/16 0000 Signed Impressions: Service Date/Time: Tuesday, May 17, 2016 15:14 - CONCLUSION: 1. 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 There are trace to very small bilateral pleural effusions and mild cardiomegaly noted. 2. No lobar consolidation. 3. Upper limits of normal to mildly enlarged mediastinal and bilateral hilar lymph nodes, nonspecific but presumably reactive. Bravo Mendez MD Abdomen/Pelvis CT 05/17/16 0000 Signed Impressions: Service Date/Time: Tuesday, May 17, 2016 15:18 - CONCLUSION: 1. Heterogeneous liver, nonspecific but possibly fatty infiltration, hepatocellular disease or a combination of the two. Nothing focal. 2. Nonspecific distention of the gallbladder. No stone, perceptible inflammatory changes or ductal dilatation demonstrated. 3. No obstruction, inflammatory changes or perceptible mass of the GI tract. Bravo Mendez MD Assessment and Plan Assessment and Plan IMPRESSION Neutropenic fever, patient with newly Dx AML, on induction chemotherapy - has had mucositis - has cough, CXR negative - UA ok - has diarrhea, R/O C diff - has line AML, on induction chemo RECOMMENDATION Continue cefepime, increase the dose Continue Diflucan and acyclovir, for prophylaxis Stop Levaquin Add Zithromax for her cough Add Flagyl Stool for C. difficile Check LFTs If abdominal pain persists, may need to do CT of the abdomen and pelvis Add vancomycin Monitor temps Follow cultures Monitor progress I will determine course of antibiotics depending on workup and her clinical course I will follow along with you. Thank you for this consultation Diane Wynne MD Jun 05, 2016 13:11
[2016-06-05] MEDS ORDERED: Vancomycin Consult Pharmacy 1 EA OTHER SCH (13:45)
[2016-06-05] MEDS ORDERED: VANCOMYCIN INJ 1,000 MG in SODIUM CHLOR 0.9% 250 ML INJ 250 ML IV ONE (14:00)
[2016-06-05] MEDS: metroNIDAZOLE 500 MG TAB PO SCH ×2 (14:45→20:32)
[2016-06-05] MEDS: AZITHROMYCIN 250 MG TAB PO SCH (14:45)
[2016-06-05 16:00] VITALS: BP 117/56; PULSE 107; RESP 18; TEMP 99.7; O2SAT 98
[2016-06-05] MEDS: CEFEPIME INJ 2,000 MG in SODIUM CHLORIDE 0.9% INJ 100 ML IV SCH (18:20)
[2016-06-05 20:00] VITALS: BP 104/51; PULSE 115; RESP 16; TEMP 99.5; O2SAT 95
[2016-06-05] MEDS ORDERED: IOHEXOL 350 MG/ML 10 ML VIAL (for RAD DIAG) IV ONE (22:20)
--- NOTE | 2016-06-05 23:05 | RADRPT ---
EXAM DATE/TIME: 06/05/2016 22:13 [facility] COMPARISON: CT ABDOMEN & PELVIS W CONTRAST, May 17, 2016, 15:18. INDICATIONS : Nausea, loose stool. Evaluate diverticulitis. IV CONTRAST: 100 cc Omnipaque 350 (iohexol) IV ORAL CONTRAST: Prescribed oral contrast ingested. RADIATION DOSE: 10.76 CTDIvol (mGy) MEDICAL HISTORY : None SURGICAL HISTORY : Stimulator ENCOUNTER: Initial ACUITY: 1 day PAIN SCALE: 5/10 LOCATION: abdomen TECHNIQUE: Volumetric scanning of the abdomen and pelvis was performed. Using automated exposure control and adjustment of the mA and/or kV according to patient size, radiation dose was kept as low as reasonably achievable to obtain optimal diagnostic quality images. FINDINGS: CT Abdomen: The liver, spleen, pancreas, kidneys, adrenals are unremarkable. There is no evidence for any appreciable pathological adenopathy, free fluid, or bowel obstruction. Chronic vascular calcifi cations are present involving the aorta, iliac arteries without any significant stenosis or aneurysma l dilatations for technique. CT pelvis: There is no evidence for mass, abscess formation, or any significant adenopathy within the pelvis. There is no evidence for diverticulitis. Minimal fluid is present in the pelvis. CONCLUSION: Minimal fluid in the pelvis, otherwise unremarkable. Cynthia Guardado MD on June 05, 2016 at 23:01 Board Certified Radiologist. This report was verified electronically.
[2016-06-05] MEDS: VANCOMYCIN INJ 1,250 MG in SODIUM CHLOR 0.9% 250 ML INJ 250 ML IV SCH (23:20)
[2016-06-06] VITALS (7 sets, daily range): BP systolic 101–122; BP diastolic 50–62; PULSE 76–115; RESP 16–20; TEMP 97.4–99.9; O2SAT 94–99
[2016-06-06] MEDS: CEFEPIME INJ 2,000 MG in SODIUM CHLORIDE 0.9% INJ 100 ML IV SCH ×3 (01:54→18:38)
[2016-06-06] MEDS: ACYCLOVIR 200 MG CAP PO SCH ×3 (04:20→21:33)
[2016-06-06] MEDS: LEVOTHYROXINE SODIUM 25 MCG TAB PO SCH (04:20)
[2016-06-06] MEDS: metroNIDAZOLE 500 MG TAB PO SCH ×3 (04:20→21:33)
[2016-06-06] MEDS: SODIUM CHLOR 0.9% 1000 ML INJ 1,000 ML IV SCH ×2 (04:22→15:30)
[2016-06-06 05:54] LABS: HEMATOCRIT 21.4 % (35.0-46.0); MEAN CORPUSCULAR HEMOGLOBIN 32.1 PG (27.0-34.0); MEAN CORPUSCULAR HGB CONC 34.5 % (32.0-36.0); PLATELET COUNT 22 TH/MM3 (150-450); RED CELL DISTRIBUTION WIDTH 14.7 % (11.6-17.2); WHITE BLOOD COUNT 0.5 TH/MM3 (4.0-11.0)
[2016-06-06 06:01] LABS: HEMO FLAGS AUTO DIFF
[2016-06-06 06:03] LABS: INDIRECT BILIRUBIN 0.3 MG/DL (0.0-0.8); TOTAL BILIRUBIN ADULT 0.4 MG/DL (0.2-1.0)
[2016-06-06] MEDS: SODIUM CHLORIDE 0.9% FLUSH 5 ML FLUSH IVF SCH (09:00)
[2016-06-06] MEDS: GABAPENTIN 300 MG CAP PO SCH ×3 (09:04→17:08)
[2016-06-06] MEDS: FUROSEMIDE 20 MG TAB PO SCH (09:04)
[2016-06-06] MEDS: FAMOTIDINE 20 MG TAB PO SCH ×2 (09:05→21:33)
[2016-06-06] MEDS: POTASSIUM CHLORIDE 10 MEQ CAP PO SCH (09:05)
[2016-06-06] MEDS: AZITHROMYCIN 250 MG TAB PO SCH (09:05)
[2016-06-06] MEDS: NYSTAT/DIPHENHY/LIDO MOUTHWASH (Adult) 120ML SWISH-SWAL SCH ×4 (09:05→21:00)
[2016-06-06] MEDS: FLUCONAZOLE 200 MG TAB PO SCH (09:05)
[2016-06-06] MEDS: ALLOPURINOL 300 MG TAB PO SCH (09:05)
[2016-06-06] MEDS: DIAZEPAM 10 MG TAB PO SCH ×2 (09:05→21:33)
[2016-06-06] MEDS: PANTOPRAZOLE SOD 40 MG DELAYED RELEASE TAB PO SCH (09:05)
[2016-06-06] MEDS: SODIUM CHLORIDE 0.9% FLUSH 5 ML FLUSH IV SCH ×2 (09:07→21:34)
[2016-06-06 09:16] LABS: PLATELET ESTIMATE SMEAR LOW (NORMAL); PLATELET MORPHOLOGY NORMAL (NORMAL); SCAN/DIFF FINAL DIFF MANUAL; WBC DIFF SAMPLE 10
--- NOTE | 2016-06-06 10:52 | HHI.PR ---
Subjective Remarks The patient says that she still has diarrhea. She still has some abdominal pain. She has been eating. She has been ambulating. She says she has been very sleepy. She has been breathing comfortably. Her brother was at the bedside. Objective Vitals Vital Signs Date Time Temp Pulse Resp B/P Pulse Ox O2 Delivery O2 Flow Rate FiO2 06/06/16 08:00 98.6 101 16 122/56 97 06/06/16 04:00 99.9 112 16 102/57 95 06/06/16 00:35 99.6 115 16 101/50 94 06/05/16 20:00 99.5 115 16 104/51 95 06/05/16 16:00 99.7 107 18 117/56 98 06/05/16 12:00 96.1 68 18 123/83 99 I/O 06/05/16 06/05/16 06/05/16 06/06/16 06/06/16 06/06/16 07:00 15:00 23:00 07:00 15:00 23:00 Intake Total 1665 ml 1983 ml 350 ml 300 ml 896 ml Output Total 400 ml Balance 1265 ml 1983 ml 350 ml 300 ml 896 ml Intake Oral 250 ml 1080 ml 350 ml 300 ml IV Total 1415 ml 903 ml 896 ml Output Urine Total 400 ml # Voids 4 1 2 # Bowel Movements 0 0 0 Result Diagram: 06/06/16 0420 06/05/16 0524 Imaging Last Impressions Abdomen/Pelvis CT 06/05/16 0000 Signed Impressions: Service Date/Time: May 22:13 - CONCLUSION: Minimal fluid in the pelvis, otherwise unremarkable. Cynthia Guardado MD Chest X-Ray 06/04/16 0000 Signed Impressions: Service Date/Time: Saturday, June 04, 2016 21:23 - CONCLUSION: No acute disease. Kilo Cotto MD Lumbar Puncture Fluoroscopy 05/23/16 0000 Signed Impressions: Service Date/Time: Monday, May 23, 2016 14:16 - CONCLUSION: Uncomplicated fluoroscopically guided lumbar puncture. Bubba Cherry MD Catheter Placement X-Ray 05/23/16 0000 Signed Impressions: Service Date/Time: Monday, May 23, 2016 14:16 - CONCLUSION: Uncomplicated Donaldson catheter placement as above. Bubba Cherry MD Bone Biopsy CT 05/20/16 0846 Signed Impressions: Service Date/Time: Friday, May 20, 2016 09:13 - CONCLUSION: 1. Uncomplicated CT guided bone marrow aspirate. 2. Uncomplicated CT guided bone marrow biopsy. Yazan Saucedo MD Head CT 05/20/16 0000 Signed Impressions: Service Date/Time: Friday, May 20, 2016 15:16 - CONCLUSION: Normal examination for a patient of this age. No significant change has occurred. Emilio Thomas MD Chest CT 05/17/16 0000 Signed Impressions: Service Date/Time: Tuesday, May 17, 2016 15:14 - CONCLUSION: 1. 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 There are trace to very small bilateral pleural effusions and mild cardiomegaly noted. 2. No lobar consolidation. 3. Upper limits of normal to mildly enlarged mediastinal and bilateral hilar lymph nodes, nonspecific but presumably reactive. Bravo Mendez MD Objective Remarks GENERAL: This is a well-nourished, well-developed patient, in no apparent distress. HEENT: NC, AT. CARDIOVASCULAR: Regular rate and rhythm. Grade 2 systolic murmur appreciated. RESPIRATORY: Scattered rhonchi. GASTROINTESTINAL: Abdomen soft, tender in the left lower quadrant, nondistended. Pain pump in RLQ. MUSCULOSKELETAL: Extremities without clubbing, cyanosis, or edema. NEURO: Alert & Oriented x4 to person, place, time, situation. Moves all ext x4. Normal finger to nose test. EOMI. PSYCH: Mood and affect appropriate. Procedures EGD/ colonoscopy Bone marrow biopsy Medications and IVs Current Medications Medications (Trade) Dose Ordered Sig/Prashant Route Start Time Stop Time Status Last Admin (Soma) 350 mg TID PRN PO 05/16/16 17:30 05/27/16 09:17 (Lasix) 20 mg DAILY PO 05/17/16 09:00 06/06/16 09:04 (Neurontin) 300 mg TID PO 05/16/16 18:00 06/06/16 09:04 (Synthroid) 25 mcg DAILY@06 PO 05/17/16 06:00 06/06/16 04:20 (KCl) 10 meq DAILY PO 05/17/16 09:00 06/06/16 09:05 (Pepcid) 20 mg BID PO 05/16/16 21:00 06/06/16 09:05 (NS Flush) 2 ml UNSCH PRN IV 05/16/16 17:45 (NS Flush) 2 ml BID IV 05/16/16 21:00 06/06/16 09:07 (Zofran Inj) 4 mg Q6H PRN IV 05/16/16 17:45 06/01/16 09:07 Acetaminophen 650 mg 650 mg Q6HR PRN PO 05/17/16 06:30 06/05/16 07:59 (Lr 1000 ml Inj) 1,000 ml @ 30 mls/hr Q24H IV 05/20/16 01:15 (Percocet 5-325 Mg) 1 tab Q4H PRN PO 05/20/16 10:00 05/25/16 15:44 (Canasa Supp) 1,000 mg HS RECTAL 05/20/16 21:00 Hold (Protonix) 40 mg DAILY PO 05/22/16 09:00 06/06/16 09:05 (Roxicodone) 10 mg Q4H PRN PO 05/21/16 16:00 06/06/16 09:08 (NS Flush) DAILY IVF 05/24/16 09:00 05/29/16 09:00 (Heparin Central Flush) DAILY IVF 05/24/16 09:00 05/30/16 18:10 (NS Flush) UNSCH PRN IVF 05/23/16 15:30 06/04/16 04:31 (Heparin Central Flush) UNSCH PRN IVF 05/23/16 15:30 06/02/16 04:01 (Colace) 100 mg BID PO 05/24/16 11:00 Hold 06/05/16 07:58 (Miralax) 17 gm DAILY PO 05/25/16 14:30 Hold 06/04/16 08:27 Lactic Acid 1 applic 1 applic BID PRN TOPICAL 05/25/16 14:30 (NS 1000 ml Inj) 1,000 ml @ 100 mls/hr Q10H IV 05/26/16 09:30 06/06/16 04:22 (Zyloprim) 300 mg DAILY PO 05/26/16 09:30 06/06/16 09:05 (Morphine Inj) 2 mg Q2HR PRN IV PUSH 05/27/16 08:45 06/05/16 12:52 (Lactulose Liq) 30 ml DAILY PO 05/27/16 09:00 Hold 06/05/16 07:57 (Valium) 10 mg Q12HR PO 05/28/16 09:00 06/06/16 09:05 (Restoril) 15 mg HS PRN PO 05/28/16 08:00 06/01/16 22:23 (Magic Mouthwash Adult Liq) 5 ml QID SWISH-SWAL 06/03/16 09:00 06/06/16 09:05 (Zovirax) 400 mg Q8HR PO 06/03/16 14:00 06/06/16 04:20 Fluconazole 200 mg 200 mg DAILY PO 06/03/16 09:00 06/06/16 09:05 (Maxipime Inj/NS Inj) 100 ml @ 200 mls/hr Q8H IV 06/05/16 18:00 06/06/16 09:06 Azithromycin 500 mg 500 mg DAILY PO 06/05/16 14:00 06/06/16 09:05 (Vancomycin Consult Pharmacy) 0 ml @ 0 mls/hr UNSCH OTHER 06/05/16 13:45 Metronidazole 500 mg 500 mg Q8HR PO 06/05/16 14:00 06/06/16 04:20 (Vancomycin Inj/ NS 250 ml Inj) 262.5 ml @ 250 mls/hr Q12H IV 06/06/16 00:00 06/05/16 23:20 Miscellaneous Information SPECIFIC LAB TO BE DRAWN:VANCOMYCIN TROUGH DATE TO... ONCE ONCE XX 06/07/16 11:45 06/07/16 11:46 Patient Own Medication PT OWN MED: HYDROMORPHONE 40 MG/... UNSCH OTHER 06/06/16 11:00 A/P Problem List: (1) Pancytopenia ICD Code: D61.818 Status: Acute (2) GI bleed ICD Code: K92.2 Status: Acute (3) AML (acute myeloid leukemia) ICD Code: C92.00 Status: Acute (4) Symptomatic anemia ICD Code: D64.9 Status: Acute (5) UTI (urinary tract infection) ICD Code: N39.0 Status: Acute Assessment and Plan 61-year-old female with recent hemorrhoidectomy 3 weeks ago presented with severe symptomatic anemia, thrombocytopenia, and leukopenia. AML Bone marrow biopsy revealed AML. Oncology consult appreciated. - chemotherapy planning per oncology. Port placement 05/23. Chemo started 05/27. - On IVFs and allopurinol to help prevent tumor lysis syndrome. - Follow-up CBC and transfuse as needed. Transfused 1 unit plts 06/04. - neutropenic precautions. - antibiotics. Neutropenic fever No obvious source. ID consult appreciated. - antibiotics, antifungals and antivirals per ID. - follow culture data. C diff pending as pt has diarrhea. Symptomatic anemia and GI bleeding Recent hemorrhoidectomy 3 weeks ago. Patient denies any active bleeding since the procedure. Hemoccult in the emergency room was positive. Appreciate GI following. S/p EGD/colonoscopy 05/20 which revealed gastritis and a rectal ulcer. - Continue Protonix. Monitor for bleeding. - Follow CBC and transfuse as needed. Stable 06/06. Headache New in onset, constant. Pt also notes difficulty reading s/t blurry vision. CT brain negative for an acute process. Fioricet did not help. S/p LP per oncology. Improved. - pain control as needed. Chronic back pain Stable. Patient has a Dilaudid/fentanyl pump implanted on the right lower quadrant of her abdomen. The pain pump will run out 06/06. - continue home meds. - pain control as needed for breakthrough. - pain pump needs to be refilled and we are currently exploring options. Consider palliative care consult for pain management assistance if pain pump unable to be refilled. Anxiety The pt has been on Valium for many years but is reporting breakthrough anxiety. - continue Valium as needed. Abdominal pain/ diarrhea Pt with abdominal pain in the LLQ. She also has diarrhea. CT abdomen without acute pathology. - hold bowel regimen. - C diff PCR. GI prophylaxis: Protonix/ ranitidine. DVT PPx: SCDs. Chemoprophylaxis contraindicated. Discharge Planning Awaiting clinical improvement. Problem Qualifiers (1) GI bleed: Qualified Code: K92.2 - Gastrointestinal hemorrhage, unspecified gastrointestinal hemorrhage type (2) AML (acute myeloid leukemia): Qualified Code: C92.00 - Acute myeloid leukemia not having achieved remission Gustavo Mejia DO Jun 06, 2016 10:51
[2016-06-06] MEDS ORDERED: FENTANYL OTHER SCH (11:00)
[2016-06-06] MEDS ORDERED: HYDROMORPHONE OTHER SCH (11:00)
[2016-06-06] MEDS ORDERED: SODIUM CHLOR 0.9% 250 ML INJ 250 ML IV ONE (12:45)
[2016-06-06] MEDS ORDERED: ACETAMINOPHEN 325 MG TAB PO PRN (12:45)
[2016-06-06] MEDS ORDERED: diphenhydrAMINE HCL 25 MG CAP PO PRN (12:45)
--- NOTE | 2016-06-06 12:50 | PD.ONC.PN ---
Subjective Subjective Remarks Afebrile overnight. Patient just finished receiving her pain pump refill. She had back pain overnight and because of that had a difficult time sleeping. She feels a bit dizzy this AM. Objective Data Date Time Temp Pulse Resp B/P Pulse Ox O2 Delivery O2 Flow Rate FiO2 06/06/16 08:00 98.6 101 16 122/56 97 06/06/16 04:00 99.9 112 16 102/57 95 06/06/16 00:35 99.6 115 16 101/50 94 06/05/16 20:00 99.5 115 16 104/51 95 06/05/16 16:00 99.7 107 18 117/56 98 06/06/16 06/06/16 06/06/16 07:00 15:00 23:00 Intake Total 300 ml 896 ml Balance 300 ml 896 ml Result Diagram: 06/06/16 0420 06/05/16 0524 Laboratory Results Laboratory Tests Test 06/06/16 04:20 White Blood Count 0.5 TH/MM3 Red Blood Count 2.30 MIL/MM3 Hemoglobin 7.4 GM/DL Hematocrit 21.4 % Mean Corpuscular Volume 93.0 FL Mean Corpuscular Hemoglobin 32.1 PG Mean Corpuscular Hemoglobin 34.5 % Concent Red Cell Distribution Width 14.7 % Platelet Count 22 TH/MM3 Mean Platelet Volume 8.2 FL Neutrophils (%) (Auto) % Lymphocytes (%) (Auto) % Monocytes (%) (Auto) % Eosinophils (%) (Auto) % Basophils (%) (Auto) % Neutrophils # (Auto) TH/MM3 Lymphocytes # (Auto) TH/MM3 Monocytes # (Auto) TH/MM3 Eosinophils # (Auto) TH/MM3 Basophils # (Auto) TH/MM3 CBC Comment AUTO DIFF Differential Total Cells 10 Counted Lymphocytes % 100 % Differential Comment FINAL DIFF MANUAL Platelet Estimate LOW Platelet Morphology Comment NORMAL Total Bilirubin 0.4 MG/DL Direct Bilirubin 0.1 MG/DL Indirect Bilirubin 0.3 MG/DL Aspartate Amino Transf 6 U/L (AST/SGOT) Alanine Aminotransferase 12 U/L (ALT/SGPT) Alkaline Phosphatase 43 U/L Total Protein 6.0 GM/DL Albumin 2.7 GM/DL Culture Results Microbiology Date/Time Procedure Status Source Growth 06/04/16 21:15 Aerobic Blood Culture - Preliminary Resulted Blood Peripheral NO GROWTH IN 2 DAYS 06/04/16 21:15 Anaerobic Blood Culture - Preliminary Resulted Blood Peripheral NO GROWTH IN 2 DAYS 06/04/16 22:15 Aerobic Blood Culture - Preliminary Resulted Blood Line NO GROWTH IN 2 DAYS 06/04/16 22:15 Anaerobic Blood Culture - Preliminary Resulted Blood Line NO GROWTH IN 2 DAYS 06/05/16 14:33 Aerobic Blood Culture - Preliminary Resulted Blood Line NO GROWTH IN 1 DAY 06/05/16 14:33 Anaerobic Blood Culture - Preliminary Resulted Blood Line NO GROWTH IN 1 DAY Administered Medications Medications (Trade) Dose Ordered Sig/Prashant Route PRN Reason Start Time Stop Time Status Last Admin Dose Admin Carisoprodol (Soma) 350 mg TID PRN PO PAIN 05/16/16 17:30 05/27/16 09:17 Furosemide (Lasix) 20 mg DAILY PO 05/17/16 09:00 06/06/16 09:04 Gabapentin (Neurontin) 300 mg TID PO 05/16/16 18:00 06/06/16 09:04 Levothyroxine Sodium (Synthroid) 25 mcg DAILY@06 PO 05/17/16 06:00 06/06/16 04:20 Potassium Chloride (KCl) 10 meq DAILY PO 05/17/16 09:00 06/06/16 09:05 Famotidine (Pepcid) 20 mg BID PO 05/16/16 21:00 06/06/16 09:05 IV Flush (NS Flush) 2 ml BID IV 05/16/16 21:00 06/06/16 09:07 Ondansetron HCl (Zofran Inj) 4 mg Q6H PRN IV NAUSEA 05/16/16 17:45 06/01/16 09:07 Acetaminophen (Tylenol) 650 mg Q6HR PRN PO headache 05/17/16 06:30 06/05/16 07:59 Oxycodone/ Acetaminophen (Percocet 5-325 Mg) 1 tab Q4H PRN PO pain 1-5 05/20/16 10:00 05/25/16 15:44 Pantoprazole Sodium (Protonix) 40 mg DAILY PO 05/22/16 09:00 06/06/16 09:05 Oxycodone HCl (Roxicodone) 10 mg Q4H PRN PO pain 6-10 05/21/16 16:00 06/06/16 09:08 IV Flush (NS Flush) DAILY IVF 05/24/16 09:00 05/29/16 09:00 Heparin Sodium (Porcine) (Heparin Central Flush) DAILY IVF 05/24/16 09:00 05/30/16 18:10 IV Flush (NS Flush) UNSCH PRN IVF SEE PROTOCOL 05/23/16 15:30 06/04/16 04:31 Heparin Sodium (Porcine) (Heparin Central Flush) UNSCH PRN IVF SEE PROTOCOL 05/23/16 15:30 06/02/16 04:01 Docusate Sodium (Colace) 100 mg BID PO 05/24/16 11:00 Hold 06/05/16 07:58 Polyethylene Glycol 17 gm 17 gm DAILY PO 05/25/16 14:30 Hold 06/04/16 08:27 Sodium Chloride (NS 1000 ml Inj) 1,000 ml @ 100 mls/hr Q10H IV 05/26/16 09:30 06/06/16 04:22 Allopurinol (Zyloprim) 300 mg DAILY PO 05/26/16 09:30 06/06/16 09:05 Morphine Sulfate (Morphine Inj) 2 mg Q2HR PRN IV PUSH SEVERE BREAKTHROUGH PAIN 05/27/16 08:45 06/05/16 12:52 Lactulose (Lactulose Liq) 30 ml DAILY PO 05/27/16 09:00 Hold 06/05/16 07:57 Diazepam (Valium) 10 mg Q12HR PO 05/28/16 09:00 06/06/16 09:05 Temazepam (Restoril) 15 mg HS PRN PO SLEEP 05/28/16 08:00 06/01/16 22:23 Multi-Ingredient Mouthwash/Gargle (Magic Mouthwash Adult Liq) 5 ml QID SWISH-SWAL 06/03/16 09:00 06/06/16 09:05 Acyclovir (Zovirax) 400 mg Q8HR PO 06/03/16 14:00 06/06/16 04:20 Fluconazole 200 mg 200 mg DAILY PO 06/03/16 09:00 06/06/16 09:05 Cefepime HCl/ Sodium Chloride (Maxipime Inj/NS Inj) 100 ml @ 200 mls/hr Q8H IV 06/05/16 18:00 06/06/16 09:06 Azithromycin (Zithromax) 500 mg DAILY PO 06/05/16 14:00 06/06/16 09:05 Metronidazole 500 mg 500 mg Q8HR PO 06/05/16 14:00 06/06/16 04:20 Vancomycin HCl/ Sodium Chloride (Vancomycin Inj/ NS 250 ml Inj) 262.5 ml @ 250 mls/hr Q12H IV 06/06/16 00:00 06/05/16 23:20 Objective Remarks GENERAL: Middle aged female, lying in bed in nad. SKIN: Warm and dry. Donaldson catheter, right chest wall HEAD: Normocephalic. EYES: No injection or drainage. NECK: Supple, trachea midline. CARDIOVASCULAR: Regular rate and rhythm. RESPIRATORY: Breath sounds equal bilaterally. No accessory muscle use. GASTROINTESTINAL: Abdomen soft, mild tenderness to LLQ. EXTREMITIES: No cyanosis. no edema. NEUROLOGICAL: AO x3. normal speech. Assessment/Plan Problem List: (1) AML (acute myeloid leukemia) Status: Acute Plan: 06/06/16: afebrile overnight. continue abx per ID. pain pump refilled. 06/05/16: spiked fever overnight. started on Cefepime. Levaquin stopped. ID consulted. CT ab/pelvis negative 06/04/16: D9. 1 unit plt 06/03/16: D8 chemo finishes late tonight. started on acyclovir/diflucan/levaquin for prophylaxis. 06/01/16: D6. nauseated. otherwise no events. continue chemo. 05/31/16:D5. no events. 05/30/16: D4 chemotherapy. no transfusion today. 05/29/16: D3 chemotherapy. Tolerated well Blood counts trending lower. Transfuse PRBC 2U. CSF cytology negative. 05/28/16: Tolerated chemo well, no significant side effect. Blood counts started to trend down. 05/27/16: D1. Albina-C + Idarubicin. AML w/ intermediate risk cytogenetics. FLT3 is pending. (2) Pancytopenia Status: Acute Plan: transfuse for platelets less than 10k and a Hgb of less than 7. (3) Rectal bleed Status: Resolved Plan: -- Controlled. No new bleeding. EGD/colonoscopy on 05/20/15 showed gastritis, irregular Z line and rectal nodule. Path report negative for malignancy. -- Had hemorrhoid surgery three weeks prior to admission with Dr. Schwartz. (4) presence of pain pump Status: Chronic Plan: --patient with intrathecal pain pump --managed by Dr. Omer outpatient --pain pump refilled on 06/06/16 Assessment 61 y/o female with pancytopenia, suspected AML Plan 1. continue abx--appreciate ID recommendations 2. 1 unit irradiated pRBC 3. patient filled out healthcare surrogate form--placed in chart. 4. continue supportive care Attending Statement The exam, history, and the medical decision-making described in the above note were completed with the assistance of the mid-level provider. I reviewed and agree with the findings presented. I attest that I had a [id number] encounter with the patient on the same day, and personally performed and documented my assessment and findings in the medical record. Afebrile overnight. Feels tired. Transfuse PRBC prn symptoms. Continue abx per ID. Problem Qualifiers (1) AML (acute myeloid leukemia): Qualified Code: C92.00 - Acute myeloid leukemia not having achieved remission Radha Lawrence Jun 06, 2016 12:49 Ryan Tripp MD Jun 06, 2016 15:38
[2016-06-06] MEDS: VANCOMYCIN INJ 1,250 MG in SODIUM CHLOR 0.9% 250 ML INJ 250 ML IV SCH ×2 (13:12→23:33)
--- NOTE | 2016-06-06 13:54 | HHI.IDPN ---
Subjective Subjective Remarks Notes reviewed Temps 99+ Neutropenic Has abdominal discomfort and some diarrhea C diff not done yet C/S reviewed CT A/P no bowel wall thickening Antibiotics Vancomycin Cefepime Flagyl Zithromax Diflucan Lines Donaldson R Past Medical History Hypothyroidism GERD Chronic back pain Peripheral edema Hemorrhoids Past Surgical History Back and neck surgery Rotator cuff surgery Pain pump placement on the right lower abdomen Hemorrhoidectomy Allergies: Coded Allergies: No Known Allergies (Verified , 05/16/16) Objective . Vital Signs Date Time Temp Pulse Resp B/P Pulse Ox O2 Delivery O2 Flow Rate FiO2 06/06/16 12:00 97.9 76 16 122/59 97 06/06/16 08:00 98.6 101 16 122/56 97 06/06/16 04:00 99.9 112 16 102/57 95 06/06/16 00:35 99.6 115 16 101/50 94 06/05/16 20:00 99.5 115 16 104/51 95 06/05/16 16:00 99.7 107 18 117/56 98 06/05/16 06/05/16 06/06/16 15:00 23:00 07:00 Intake Total 1983 ml 350 ml 300 ml Balance 1983 ml 350 ml 300 ml Intake Oral 1080 ml 350 ml 300 ml IV Total 903 ml # Voids 4 1 2 # Bowel Movements 0 0 . Laboratory Tests Test 06/05/16 06/06/16 05:24 04:20 White Blood Count 0.5 TH/MM3 0.5 TH/MM3 Red Blood Count 2.49 MIL/MM3 2.30 MIL/MM3 Hemoglobin 8.0 GM/DL 7.4 GM/DL Hematocrit 23.2 % 21.4 % Mean Corpuscular Volume 92.9 FL 93.0 FL Mean Corpuscular Hemoglobin 32.1 PG 32.1 PG Mean Corpuscular Hemoglobin 34.6 % 34.5 % Concent Red Cell Distribution Width 14.5 % 14.7 % Platelet Count 39 TH/MM3 22 TH/MM3 Mean Platelet Volume 8.0 FL 8.2 FL Neutrophils (%) (Auto) % % Lymphocytes (%) (Auto) % % Monocytes (%) (Auto) % % Eosinophils (%) (Auto) % % Basophils (%) (Auto) % % Neutrophils # (Auto) TH/MM3 TH/MM3 Lymphocytes # (Auto) TH/MM3 TH/MM3 Monocytes # (Auto) TH/MM3 TH/MM3 Eosinophils # (Auto) TH/MM3 TH/MM3 Basophils # (Auto) TH/MM3 TH/MM3 CBC Comment AUTO DIFF AUTO DIFF Differential Total Cells 50 10 Counted Lymphocytes % 100 % 100 % Differential Comment FINAL DIFF FINAL DIFF MANUAL MANUAL Platelet Estimate RARE LOW Platelet Morphology Comment NORMAL NORMAL Red Cell Morphology Comment NORMAL Laboratory Tests Test 06/05/16 06/06/16 05:24 04:20 Sodium Level 138 MEQ/L Potassium Level 4.1 MEQ/L Chloride Level 105 MEQ/L Carbon Dioxide Level 25.0 MEQ/L Anion Gap 8 MEQ/L Blood Urea Nitrogen 10 MG/DL Creatinine 0.59 MG/DL Estimat Glomerular Filtration 104 ML/MIN Rate Random Glucose 99 MG/DL Calcium Level 7.9 MG/DL Magnesium Level 2.0 MG/DL Total Bilirubin 0.4 MG/DL Direct Bilirubin 0.1 MG/DL Indirect Bilirubin 0.3 MG/DL Aspartate Amino Transf 6 U/L (AST/SGOT) Alanine Aminotransferase 12 U/L (ALT/SGPT) Alkaline Phosphatase 43 U/L Total Protein 6.0 GM/DL Albumin 2.7 GM/DL Microbiology Date/Time Procedure Status Source Growth 06/04/16 21:15 Aerobic Blood Culture - Preliminary Resulted Blood Peripheral NO GROWTH IN 2 DAYS 06/04/16 21:15 Anaerobic Blood Culture - Preliminary Resulted Blood Peripheral NO GROWTH IN 2 DAYS 06/04/16 22:15 Aerobic Blood Culture - Preliminary Resulted Blood Line NO GROWTH IN 2 DAYS 06/04/16 22:15 Anaerobic Blood Culture - Preliminary Resulted Blood Line NO GROWTH IN 2 DAYS 06/05/16 14:33 Aerobic Blood Culture - Preliminary Resulted Blood Line NO GROWTH IN 1 DAY 06/05/16 14:33 Anaerobic Blood Culture - Preliminary Resulted Blood Line NO GROWTH IN 1 DAY Imaging Abdomen/Pelvis CT 06/05/16 0000 Signed Impressions: Service Date/Time: May 22:13 - CONCLUSION: Minimal fluid in the pelvis, otherwise unremarkable. Cynthia Guardado MD Chest X-Ray 06/04/16 0000 Signed Impressions: Service Date/Time: Saturday, June 04, 2016 21:23 - CONCLUSION: No acute disease. Kilo Cotto MD Lumbar Puncture Fluoroscopy 05/23/16 0000 Signed Impressions: Service Date/Time: Monday, May 23, 2016 14:16 - CONCLUSION: Uncomplicated fluoroscopically guided lumbar puncture. Bubba Cherry MD Catheter Placement X-Ray 05/23/16 0000 Signed Impressions: Service Date/Time: Monday, May 23, 2016 14:16 - CONCLUSION: Uncomplicated Donaldson catheter placement as above. Bubba Cherry MD Bone Biopsy CT 05/20/16 0846 Signed Impressions: Service Date/Time: Friday, May 20, 2016 09:13 - CONCLUSION: 1. Uncomplicated CT guided bone marrow aspirate. 2. Uncomplicated CT guided bone marrow biopsy. Yazan Saucedo MD Head CT 05/20/16 0000 Signed Impressions: Service Date/Time: Friday, May 20, 2016 15:16 - CONCLUSION: Normal examination for a patient of this age. No significant change has occurred. Emilio Thomas MD Chest CT 05/17/16 0000 Signed Impressions: Service Date/Time: Tuesday, May 17, 2016 15:14 - CONCLUSION: 1. 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 There are trace to very small bilateral pleural effusions and mild cardiomegaly noted. 2. No lobar consolidation. 3. Upper limits of normal to mildly enlarged mediastinal and bilateral hilar lymph nodes, nonspecific but presumably reactive. Bravo Mendez MD Physical Exam GENERAL: awake and alert, not in any respiratory distress. SKIN: Warm and dry. No generalized rash, no ecchymosis or embolic lesions noted. HEENT: Pale conjunctivae, no petechia or hemorrhage. No scleral icterus. No injection or drainage. Moist oral mucosa. Throat without erythema, or exudate. NECK: Trachea midline. No JVD or lymphadenopathy. Supple, nontender, no meningeal signs. CARDIOVASCULAR: Regular rate and rhythm without murmurs, gallops, or rubs. RESPIRATORY: Clear to auscultation. Breath sounds equal bilaterally. No wheezes , rales, or rhonchi. Donaldson catheter is in the right upper chest, the site is dry with no purulence or redness. The tunnel portion of the catheter has no tenderness swelling or erythema. GASTROINTESTINAL: Abdomen soft, nondistended, bowel sounds are present, has mild tenderness in the suprapubic region. No rebound or guarding. She has her pain pump RLQ no evidence of infection MUSCULOSKELETAL: Extremities without clubbing, cyanosis, or edema. No calf tenderness. NEURO: Non focal PSYCH: Normal affect, calm and cooperative LINE: Donaldson cath with no evidence of infection Assessment & Plan Remarks IMPRESSION Neutropenic fever, patient with newly Dx AML, on induction chemotherapy - has had mucositis - has cough, CXR negative - UA ok - has diarrhea, R/O C diff - has line AML, on induction chemo RECOMMENDATION Continue cefepime Continue Diflucan and acyclovir, for prophylaxis Continue Zithromax for her cough Continue Flagyl Stool for C. difficile Continue vancomycin Monitor temps Follow cultures Monitor progress Diane Wynne MD Jun 06, 2016 13:54
[2016-06-06 15:15] LABS: C. DIFF EPI 027 PRESUMPTIVE NEGATIVE (NEGATIVE); C. DIFF TOXIN PCR NEGATIVE (NEGATIVE)
[2016-06-06] MEDS: oxyCODONE/ACETAMINOPHEN 5 MG/325 MG TAB PO PRN (23:32)
[2016-06-06] MEDS: ONDANSETRON HCL 4 MG/2 ML VIAL IV PRN (23:33)
[2016-06-06] MEDS: LACTATED RINGER'S 1000 ML IV SCH (23:33)
[2016-06-07] VITALS: BP 112/61; PULSE 106; RESP 18; TEMP 98; O2SAT 95
[2016-06-07] MEDS: SODIUM CHLOR 0.9% 1000 ML INJ 1,000 ML IV SCH ×3 (02:11→20:42)
[2016-06-07] MEDS: CEFEPIME INJ 2,000 MG in SODIUM CHLORIDE 0.9% INJ 100 ML IV SCH ×3 (02:38→18:25)
[2016-06-07 04:00] VITALS: BP 111/62; PULSE 56; RESP 16; TEMP 97.9; O2SAT 94
[2016-06-07] MEDS: LEVOTHYROXINE SODIUM 25 MCG TAB PO SCH (05:31)
[2016-06-07] MEDS: ACYCLOVIR 200 MG CAP PO SCH ×3 (05:31→20:38)
[2016-06-07] MEDS: metroNIDAZOLE 500 MG TAB PO SCH ×3 (05:31→20:38)
[2016-06-07 06:36] LABS: ALT (GPT) 12 U/L (10-53); ANION GAP 6 MEQ/L (5-15); AST (GOT) 5 U/L (15-37); BICARBONATE 24.9 MEQ/L (21.0-32.0); BLOOD UREA NITROGEN 11 MG/DL (7-18); CHLORIDE 110 MEQ/L (98-107); GLOMERULAR FILTRATION RATE 106 ML/MIN (>89); POTASSIUM 3.8 MEQ/L (3.5-5.1); SODIUM (NA) 141 MEQ/L (136-145)
[2016-06-07 06:38] LABS: ALKALINE PHOSPHATASE 40 U/L (45-117); TOTAL BILIRUBIN ADULT 0.7 MG/DL (0.2-1.0)
[2016-06-07 07:03] LABS: MEAN CORPUSCULAR HEMOGLOBIN 32.8 PG (27.0-34.0); MEAN CORPUSCULAR HGB CONC 35.3 % (32.0-36.0); RED BLOOD COUNT 2.48 MIL/MM3 (4.00-5.30); WHITE BLOOD COUNT 0.5 TH/MM3 (4.0-11.0)
[2016-06-07 08:00] VITALS: BP 125/58; PULSE 99; RESP 16; TEMP 98.7; O2SAT 98
[2016-06-07 08:04] LABS: HEMO FLAGS AUTO DIFF
[2016-06-07 08:06] LABS: PLATELET COUNT 14 TH/MM3 (150-450)
[2016-06-07] MEDS: AZITHROMYCIN 250 MG TAB PO SCH (08:54)
[2016-06-07] MEDS: POTASSIUM CHLORIDE 10 MEQ CAP PO SCH (08:55)
[2016-06-07] MEDS: GABAPENTIN 300 MG CAP PO SCH ×3 (08:55→18:24)
[2016-06-07] MEDS: FUROSEMIDE 20 MG TAB PO SCH (08:55)
[2016-06-07] MEDS: DIAZEPAM 10 MG TAB PO SCH ×2 (08:55→20:37)
[2016-06-07] MEDS: PANTOPRAZOLE SOD 40 MG DELAYED RELEASE TAB PO SCH (08:55)
[2016-06-07] MEDS: FAMOTIDINE 20 MG TAB PO SCH ×2 (08:55→20:37)
[2016-06-07] MEDS: ALLOPURINOL 300 MG TAB PO SCH (08:55)
[2016-06-07] MEDS: FLUCONAZOLE 200 MG TAB PO SCH (08:55)
[2016-06-07] MEDS: SODIUM CHLORIDE 0.9% FLUSH 5 ML FLUSH IVF SCH (09:01)
[2016-06-07] MEDS: SODIUM CHLORIDE 0.9% FLUSH 5 ML FLUSH IV SCH ×2 (09:01→20:41)
[2016-06-07] MEDS: NYSTAT/DIPHENHY/LIDO MOUTHWASH (Adult) 120ML SWISH-SWAL SCH ×4 (09:06→20:38)
[2016-06-07 10:11] LABS: WBC DIFF SAMPLE 50
[2016-06-07 10:15] LABS: PLATELET ESTIMATE SMEAR RARE (NORMAL); PLATELET MORPHOLOGY NORMAL (NORMAL); SCAN/DIFF FINAL DIFF MANUAL
--- NOTE | 2016-06-07 11:44 | HHI.PR ---
Subjective Remarks The patient complained of jaw pain. She said her diarrhea has improved. She feels a little lightheaded every once in a while. She requested a shower. She said her pain pump has been refilled. Discussed with nursing. Objective Vitals Vital Signs Date Time Temp Pulse Resp B/P Pulse Ox O2 Delivery O2 Flow Rate FiO2 06/07/16 08:00 98.7 99 16 125/58 98 06/07/16 04:07 18 06/07/16 04:00 97.9 56 16 111/62 94 06/07/16 01:01 18 06/07/16 00:00 98.0 106 18 112/61 95 06/06/16 20:00 97.4 92 18 110/59 94 06/06/16 17:03 99.8 100 18 111/59 99 06/06/16 16:45 99.0 101 20 115/62 99 06/06/16 12:00 97.9 76 16 122/59 97 I/O 06/06/16 06/06/16 06/06/16 06/07/16 06/07/16 06/07/16 07:00 15:00 23:00 07:00 15:00 23:00 Intake Total 300 ml 1136 ml 1440 ml 240 ml 240 ml Output Total 963 ml Balance 300 ml 173 ml 1440 ml 240 ml 240 ml Intake Oral 300 ml 240 ml 1440 ml 240 ml 240 ml IV Total 896 ml Output Urine Total 963 ml # Voids 2 3 5 2 # Bowel Movements 0 1 Result Diagram: 06/07/16 0312 06/07/16 0312 Imaging Last Impressions Abdomen/Pelvis CT 06/05/16 0000 Signed Impressions: Service Date/Time: May 22:13 - CONCLUSION: Minimal fluid in the pelvis, otherwise unremarkable. Cynthia Guardado MD Chest X-Ray 06/04/16 0000 Signed Impressions: Service Date/Time: Saturday, June 04, 2016 21:23 - CONCLUSION: No acute disease. Kilo Cotto MD Lumbar Puncture Fluoroscopy 05/23/16 0000 Signed Impressions: Service Date/Time: Monday, May 23, 2016 14:16 - CONCLUSION: Uncomplicated fluoroscopically guided lumbar puncture. Bubba Cherry MD Catheter Placement X-Ray 05/23/16 0000 Signed Impressions: Service Date/Time: Monday, May 23, 2016 14:16 - CONCLUSION: Uncomplicated Donaldson catheter placement as above. Bubba Cherry MD Bone Biopsy CT 05/20/16 0846 Signed Impressions: Service Date/Time: Friday, May 20, 2016 09:13 - CONCLUSION: 1. Uncomplicated CT guided bone marrow aspirate. 2. Uncomplicated CT guided bone marrow biopsy. Yazan Saucedo MD Head CT 05/20/16 0000 Signed Impressions: Service Date/Time: Friday, May 20, 2016 15:16 - CONCLUSION: Normal examination for a patient of this age. No significant change has occurred. Emilio Thomas MD Chest CT 05/17/16 0000 Signed Impressions: Service Date/Time: Tuesday, May 17, 2016 15:14 - CONCLUSION: 1. 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 There are trace to very small bilateral pleural effusions and mild cardiomegaly noted. 2. No lobar consolidation. 3. Upper limits of normal to mildly enlarged mediastinal and bilateral hilar lymph nodes, nonspecific but presumably reactive. Bravo Mendez MD Objective Remarks GENERAL: This is a well-nourished, well-developed patient, in no apparent distress. HEENT: NC, AT. Jaw pain upon palpation. CARDIOVASCULAR: Regular rate and rhythm. Grade 2 systolic murmur appreciated. RESPIRATORY: CTAB. No W/R/R. GASTROINTESTINAL: Abdomen soft, nontender, nondistended. Pain pump in RLQ. MUSCULOSKELETAL: Extremities without clubbing, cyanosis, or edema. NEURO: Alert & Oriented x4 to person, place, time, situation. Moves all ext x4. Normal finger to nose test. EOMI. PSYCH: Mood and affect appropriate. Procedures EGD/ colonoscopy Bone marrow biopsy Medications and IVs Current Medications Medications (Trade) Dose Ordered Sig/Prashant Route Start Time Stop Time Status Last Admin (Soma) 350 mg TID PRN PO 05/16/16 17:30 05/27/16 09:17 (Lasix) 20 mg DAILY PO 05/17/16 09:00 06/07/16 08:55 (Neurontin) 300 mg TID PO 05/16/16 18:00 06/07/16 08:55 (Synthroid) 25 mcg DAILY@06 PO 05/17/16 06:00 06/07/16 05:31 (KCl) 10 meq DAILY PO 05/17/16 09:00 06/07/16 08:55 (Pepcid) 20 mg BID PO 05/16/16 21:00 06/07/16 08:55 (NS Flush) 2 ml UNSCH PRN IV 05/16/16 17:45 (NS Flush) 2 ml BID IV 05/16/16 21:00 06/07/16 09:01 (Zofran Inj) 4 mg Q6H PRN IV 05/16/16 17:45 06/06/16 23:33 Acetaminophen 650 mg 650 mg Q6HR PRN PO 05/17/16 06:30 06/05/16 07:59 (Lr 1000 ml Inj) 1,000 ml @ 30 mls/hr Q24H IV 05/20/16 01:15 (Percocet 5-325 Mg) 1 tab Q4H PRN PO 05/20/16 10:00 06/06/16 23:32 (Canasa Supp) 1,000 mg HS RECTAL 05/20/16 21:00 Hold (Protonix) 40 mg DAILY PO 05/22/16 09:00 06/07/16 08:55 (Roxicodone) 10 mg Q4H PRN PO 05/21/16 16:00 06/07/16 10:41 (NS Flush) DAILY IVF 05/24/16 09:00 06/07/16 09:01 (Heparin Central Flush) DAILY IVF 05/24/16 09:00 05/30/16 18:10 (NS Flush) UNSCH PRN IVF 05/23/16 15:30 06/04/16 04:31 (Heparin Central Flush) UNSCH PRN IVF 05/23/16 15:30 06/02/16 04:01 (Colace) 100 mg BID PO 05/24/16 11:00 Hold 06/05/16 07:58 (Miralax) 17 gm DAILY PO 05/25/16 14:30 Hold 06/04/16 08:27 Lactic Acid 1 applic 1 applic BID PRN TOPICAL 05/25/16 14:30 (NS 1000 ml Inj) 1,000 ml @ 100 mls/hr Q10H IV 05/26/16 09:30 06/07/16 02:11 (Zyloprim) 300 mg DAILY PO 05/26/16 09:30 06/07/16 08:55 (Morphine Inj) 2 mg Q2HR PRN IV PUSH 05/27/16 08:45 06/05/16 12:52 (Lactulose Liq) 30 ml DAILY PO 05/27/16 09:00 Hold 06/05/16 07:57 (Valium) 10 mg Q12HR PO 05/28/16 09:00 06/07/16 08:55 (Restoril) 15 mg HS PRN PO 05/28/16 08:00 06/01/16 22:23 (Magic Mouthwash Adult Liq) 5 ml QID SWISH-SWAL 06/03/16 09:00 06/07/16 09:06 (Zovirax) 400 mg Q8HR PO 06/03/16 14:00 06/07/16 05:31 Fluconazole 200 mg 200 mg DAILY PO 06/03/16 09:00 06/07/16 08:55 (Maxipime Inj/NS Inj) 100 ml @ 200 mls/hr Q8H IV 06/05/16 18:00 06/07/16 10:41 Azithromycin 500 mg 500 mg DAILY PO 06/05/16 14:00 06/07/16 08:54 (Vancomycin Consult Pharmacy) 0 ml @ 0 mls/hr UNSCH OTHER 06/05/16 13:45 Metronidazole 500 mg 500 mg Q8HR PO 06/05/16 14:00 06/07/16 05:31 (Vancomycin Inj/ NS 250 ml Inj) 262.5 ml @ 250 mls/hr Q12H IV 06/06/16 00:00 06/06/16 23:33 Miscellaneous Information SPECIFIC LAB TO BE DRAWN:VANCOMYCIN TROUGH DATE TO... ONCE ONCE XX 06/07/16 11:45 06/07/16 11:46 Patient Own Medication PT OWN MED: HYDROMORPHONE 40 MG/... UNSCH OTHER 06/06/16 11:00 A/P Problem List: (1) Pancytopenia ICD Code: D61.818 Status: Acute (2) GI bleed ICD Code: K92.2 Status: Acute (3) AML (acute myeloid leukemia) ICD Code: C92.00 Status: Acute (4) Symptomatic anemia ICD Code: D64.9 Status: Acute (5) UTI (urinary tract infection) ICD Code: N39.0 Status: Acute Assessment and Plan 61-year-old female with recent hemorrhoidectomy 3 weeks ago presented with severe symptomatic anemia, thrombocytopenia, and leukopenia. AML Bone marrow biopsy revealed AML. Oncology consult appreciated. - chemotherapy planning per oncology. Port placement 05/23. Chemo started 05/27. - On IVFs and allopurinol to help prevent tumor lysis syndrome. - Follow-up CBC and transfuse as needed. Transfused 1 unit plts 06/04. - neutropenic precautions. - antibiotics. Neutropenic fever No obvious source. ID consult appreciated. C diff negative. - antibiotics, antifungals and antivirals per ID. - follow culture data. Symptomatic anemia and GI bleeding Recent hemorrhoidectomy 3 weeks ago. Patient denies any active bleeding since the procedure. Hemoccult in the emergency room was positive. Appreciate GI following. S/p EGD/colonoscopy 05/20 which revealed gastritis and a rectal ulcer. - Continue Protonix. Monitor for bleeding. - Follow CBC and transfuse as needed. Stable 06/07. Headache New in onset, constant. Pt also notes difficulty reading s/t blurry vision. CT brain negative for an acute process. Fioricet did not help. S/p LP per oncology. Improved. - pain control as needed. Chronic back pain Stable. Patient has a Dilaudid/fentanyl pump implanted on the right lower quadrant of her abdomen. The pain pump was refilled 06/07. - continue home meds. - pain control as needed for breakthrough. - continue home pain pump. Anxiety The pt has been on Valium for many years but is reporting breakthrough anxiety. - continue Valium as needed. GI prophylaxis: Protonix/ ranitidine. DVT PPx: SCDs. Chemoprophylaxis contraindicated. Discharge Planning Awaiting clinical improvement. Problem Qualifiers (1) GI bleed: Qualified Code: K92.2 - Gastrointestinal hemorrhage, unspecified gastrointestinal hemorrhage type (2) AML (acute myeloid leukemia): Qualified Code: C92.00 - Acute myeloid leukemia not having achieved remission Gustavo Mejia DO Jun 07, 2016 11:44
[2016-06-07] MEDS ORDERED: PHARMACY ORDERED LAB XX ONE (11:45)
[2016-06-07] MEDS: VANCOMYCIN INJ 1,250 MG in SODIUM CHLOR 0.9% 250 ML INJ 250 ML IV SCH (11:47)
[2016-06-07 12:00] VITALS: BP 125/59; PULSE 75; RESP 16; TEMP 98.9; O2SAT 96
--- NOTE | 2016-06-07 14:32 | PD.ONC.PN ---
Subjective Subjective Remarks Afebrile overnight. Patient states she feels generally well. She has some intermittent back pain that is relieved with medications. She has not been nauseous. She has no shortness of breath or chest pain. Objective Data Date Time Temp Pulse Resp B/P Pulse Ox O2 Delivery O2 Flow Rate FiO2 06/07/16 12:00 98.9 75 16 125/59 96 06/07/16 08:00 98.7 99 16 125/58 98 06/07/16 04:07 18 06/07/16 04:00 97.9 56 16 111/62 94 06/07/16 01:01 18 06/07/16 00:00 98.0 106 18 112/61 95 06/06/16 20:00 97.4 92 18 110/59 94 06/06/16 17:03 99.8 100 18 111/59 99 06/06/16 16:45 99.0 101 20 115/62 99 06/07/16 06/07/16 06/07/16 07:00 15:00 23:00 Intake Total 240 ml 2399 ml Balance 240 ml 2399 ml Result Diagram: 06/07/16 0312 06/07/16 0312 Laboratory Results Laboratory Tests Test 06/07/16 06/07/16 03:12 11:45 White Blood Count 0.5 TH/MM3 Red Blood Count 2.48 MIL/MM3 Hemoglobin 8.1 GM/DL Hematocrit 23.0 % Mean Corpuscular Volume 93.0 FL Mean Corpuscular Hemoglobin 32.8 PG Mean Corpuscular Hemoglobin 35.3 % Concent Red Cell Distribution Width 14.0 % Platelet Count 14 TH/MM3 Mean Platelet Volume 8.2 FL Neutrophils (%) (Auto) % Lymphocytes (%) (Auto) % Monocytes (%) (Auto) % Eosinophils (%) (Auto) % Basophils (%) (Auto) % Neutrophils # (Auto) TH/MM3 Lymphocytes # (Auto) TH/MM3 Monocytes # (Auto) TH/MM3 Eosinophils # (Auto) TH/MM3 Basophils # (Auto) TH/MM3 CBC Comment AUTO DIFF Differential Total Cells 50 Counted Lymphocytes % 100 % Neutrophils # (Manual) 0.0 TH/MM3 Differential Comment FINAL DIFF MANUAL Platelet Estimate RARE Platelet Morphology Comment NORMAL Red Cell Morphology Comment NORMAL Sodium Level 141 MEQ/L Potassium Level 3.8 MEQ/L Chloride Level 110 MEQ/L Carbon Dioxide Level 24.9 MEQ/L Anion Gap 6 MEQ/L Blood Urea Nitrogen 11 MG/DL Creatinine 0.58 MG/DL Estimat Glomerular Filtration 106 ML/MIN Rate Random Glucose 100 MG/DL Calcium Level 7.7 MG/DL Total Bilirubin 0.7 MG/DL Aspartate Amino Transf 5 U/L (AST/SGOT) Alanine Aminotransferase 12 U/L (ALT/SGPT) Alkaline Phosphatase 40 U/L Total Protein 5.7 GM/DL Albumin 2.5 GM/DL Vancomycin Level Trough 9.6 MCG/ML Culture Results Microbiology Date/Time Procedure Status Source Growth 06/04/16 21:15 Aerobic Blood Culture - Preliminary Resulted Blood Peripheral NO GROWTH IN 3 DAYS 06/04/16 21:15 Anaerobic Blood Culture - Preliminary Resulted Blood Peripheral NO GROWTH IN 3 DAYS 06/04/16 22:15 Aerobic Blood Culture - Preliminary Resulted Blood Line NO GROWTH IN 3 DAYS 06/04/16 22:15 Anaerobic Blood Culture - Preliminary Resulted Blood Line NO GROWTH IN 3 DAYS 06/05/16 14:33 Aerobic Blood Culture - Preliminary Resulted Blood Line NO GROWTH IN 2 DAYS 06/05/16 14:33 Anaerobic Blood Culture - Preliminary Resulted Blood Line NO GROWTH IN 2 DAYS Administered Medications Medications (Trade) Dose Ordered Sig/Prashant Route PRN Reason Start Time Stop Time Status Last Admin Dose Admin Carisoprodol (Soma) 350 mg TID PRN PO PAIN 05/16/16 17:30 05/27/16 09:17 Furosemide (Lasix) 20 mg DAILY PO 05/17/16 09:00 06/07/16 08:55 Gabapentin (Neurontin) 300 mg TID PO 05/16/16 18:00 06/07/16 13:56 Levothyroxine Sodium (Synthroid) 25 mcg DAILY@06 PO 05/17/16 06:00 06/07/16 05:31 Potassium Chloride (KCl) 10 meq DAILY PO 05/17/16 09:00 06/07/16 08:55 Famotidine (Pepcid) 20 mg BID PO 05/16/16 21:00 06/07/16 08:55 IV Flush (NS Flush) 2 ml BID IV 05/16/16 21:00 06/07/16 09:01 Ondansetron HCl (Zofran Inj) 4 mg Q6H PRN IV NAUSEA 05/16/16 17:45 06/06/16 23:33 Acetaminophen (Tylenol) 650 mg Q6HR PRN PO headache 05/17/16 06:30 06/05/16 07:59 Oxycodone/ Acetaminophen (Percocet 5-325 Mg) 1 tab Q4H PRN PO pain 1-5 05/20/16 10:00 06/06/16 23:32 Pantoprazole Sodium (Protonix) 40 mg DAILY PO 05/22/16 09:00 06/07/16 08:55 Oxycodone HCl (Roxicodone) 10 mg Q4H PRN PO pain 6-10 05/21/16 16:00 06/07/16 10:41 IV Flush (NS Flush) DAILY IVF 05/24/16 09:00 06/07/16 09:01 Heparin Sodium (Porcine) (Heparin Central Flush) DAILY IVF 05/24/16 09:00 05/30/16 18:10 IV Flush (NS Flush) UNSCH PRN IVF SEE PROTOCOL 05/23/16 15:30 06/04/16 04:31 Heparin Sodium (Porcine) (Heparin Central Flush) UNSCH PRN IVF SEE PROTOCOL 05/23/16 15:30 06/02/16 04:01 Docusate Sodium (Colace) 100 mg BID PO 05/24/16 11:00 Hold 06/05/16 07:58 Polyethylene Glycol 17 gm 17 gm DAILY PO 05/25/16 14:30 Hold 06/04/16 08:27 Sodium Chloride (NS 1000 ml Inj) 1,000 ml @ 100 mls/hr Q10H IV 05/26/16 09:30 06/07/16 11:30 Allopurinol (Zyloprim) 300 mg DAILY PO 05/26/16 09:30 06/07/16 08:55 Morphine Sulfate (Morphine Inj) 2 mg Q2HR PRN IV PUSH SEVERE BREAKTHROUGH PAIN 05/27/16 08:45 06/05/16 12:52 Lactulose (Lactulose Liq) 30 ml DAILY PO 05/27/16 09:00 Hold 06/05/16 07:57 Diazepam (Valium) 10 mg Q12HR PO 05/28/16 09:00 06/07/16 08:55 Temazepam (Restoril) 15 mg HS PRN PO SLEEP 05/28/16 08:00 06/01/16 22:23 Multi-Ingredient Mouthwash/Gargle (Magic Mouthwash Adult Liq) 5 ml QID SWISH-SWAL 06/03/16 09:00 06/07/16 14:01 Acyclovir (Zovirax) 400 mg Q8HR PO 06/03/16 14:00 06/07/16 13:56 Fluconazole 200 mg 200 mg DAILY PO 06/03/16 09:00 06/07/16 08:55 Cefepime HCl/ Sodium Chloride (Maxipime Inj/NS Inj) 100 ml @ 200 mls/hr Q8H IV 06/05/16 18:00 06/07/16 10:41 Azithromycin (Zithromax) 500 mg DAILY PO 06/05/16 14:00 06/07/16 08:54 Metronidazole 500 mg 500 mg Q8HR PO 06/05/16 14:00 06/07/16 13:56 Vancomycin HCl/ Sodium Chloride (Vancomycin Inj/ NS 250 ml Inj) 262.5 ml @ 250 mls/hr Q12H IV 06/06/16 00:00 06/07/16 11:47 Objective Remarks GENERAL: Middle aged female, lying in bed in nad. SKIN: Warm and dry. Donaldson catheter, right chest wall HEAD: Normocephalic. EYES: No injection or drainage. NECK: Supple, trachea midline. CARDIOVASCULAR: Regular rate and rhythm. RESPIRATORY: Breath sounds equal bilaterally. No accessory muscle use. GASTROINTESTINAL: Abdomen soft. Nontender, nondistended. EXTREMITIES: No cyanosis. no edema. NEUROLOGICAL: AO x3. normal speech. Assessment/Plan Problem List: (1) AML (acute myeloid leukemia) Status: Acute Plan: 06/07/16: Afebrile. Neutropenic precautions continue. 06/06/16: afebrile overnight. continue abx per ID. pain pump refilled. 06/05/16: spiked fever overnight. started on Cefepime. Levaquin stopped. ID consulted. CT ab/pelvis negative 06/04/16: D9. 1 unit plt 06/03/16: D8 chemo finishes late tonight. started on acyclovir/diflucan/levaquin for prophylaxis. 06/01/16: D6. nauseated. otherwise no events. continue chemo. 05/31/16:D5. no events. 05/30/16: D4 chemotherapy. no transfusion today. 05/29/16: D3 chemotherapy. Tolerated well Blood counts trending lower. Transfuse PRBC 2U. CSF cytology negative. 05/28/16: Tolerated chemo well, no significant side effect. Blood counts started to trend down. 05/27/16: D1. Albina-C + Idarubicin. AML w/ intermediate risk cytogenetics. FLT3 is pending. (2) Pancytopenia Status: Acute Plan: transfuse for platelets less than 10k and a Hgb of less than 7. (3) Rectal bleed Status: Resolved Plan: -- Controlled. No new bleeding. EGD/colonoscopy on 05/20/15 showed gastritis, irregular Z line and rectal nodule. Path report negative for malignancy. -- Had hemorrhoid surgery three weeks prior to admission with Dr. Schwartz. (4) presence of pain pump Status: Chronic Plan: --patient with intrathecal pain pump --managed by Dr. Omer outpatient --pain pump refilled on 06/06/16 Assessment 61 y/o female with pancytopenia, suspected AML Plan 1. Will transfuse for hemoglobin less than 7 and platelets less than 10k. 2. Monitor for fevers. 3. Continue antibiotics per infectious disease. 4. Continue supportive care Attending Statement The exam, history, and the medical decision-making described in the above note were completed with the assistance of the mid-level provider. I reviewed and agree with the findings presented. I attest that I had a [id number] encounter with the patient on the same day, and personally performed and documented my assessment and findings in the medical record. Problem Qualifiers (1) AML (acute myeloid leukemia): Qualified Code: C92.00 - Acute myeloid leukemia not having achieved remission Marissa Juarez Jun 07, 2016 14:32 Wilfredo Hooker MD Jun 08, 2016 00:14
[2016-06-07 16:00] VITALS: BP 154/70; PULSE 108; RESP 16; TEMP 98.1; O2SAT 98
[2016-06-07 20:00] VITALS: BP 102/63; PULSE 110; RESP 18; TEMP 99.4; O2SAT 96
[2016-06-07] MEDS: LACTATED RINGER'S 1000 ML IV SCH (22:20)
[2016-06-08] VITALS: BP 121/70; PULSE 114; RESP 20; TEMP 98; O2SAT 95
[2016-06-08] MEDS: VANCOMYCIN INJ 1,250 MG in SODIUM CHLOR 0.9% 250 ML INJ 250 ML IV SCH ×3 (00:29→23:17)
[2016-06-08] MEDS: CEFEPIME INJ 2,000 MG in SODIUM CHLORIDE 0.9% INJ 100 ML IV SCH ×3 (01:26→18:00)
[2016-06-08] MEDS: LEVOTHYROXINE SODIUM 25 MCG TAB PO SCH (05:08)
[2016-06-08] MEDS: ACYCLOVIR 200 MG CAP PO SCH ×3 (05:08→20:57)
[2016-06-08] MEDS: metroNIDAZOLE 500 MG TAB PO SCH ×3 (05:08→20:57)
[2016-06-08 05:10] VITALS: BP 121/60; PULSE 112; RESP 20; TEMP 99.2; O2SAT 95
[2016-06-08 06:41] LABS: HEMATOCRIT 24.8 % (35.0-46.0); MEAN CELL VOLUME 94.9 FL (80.0-100.0); MEAN CORPUSCULAR HEMOGLOBIN 32.7 PG (27.0-34.0); MEAN CORPUSCULAR HGB CONC 34.4 % (32.0-36.0); RED BLOOD COUNT 2.62 MIL/MM3 (4.00-5.30); RED CELL DISTRIBUTION WIDTH 13.6 % (11.6-17.2); WHITE BLOOD COUNT 0.5 TH/MM3 (4.0-11.0)
[2016-06-08 06:45] LABS: ALKALINE PHOSPHATASE 42 U/L (45-117); ALT (GPT) 12 U/L (10-53); ANION GAP 7 MEQ/L (5-15); AST (GOT) 4 U/L (15-37); BICARBONATE 22.6 MEQ/L (21.0-32.0); BLOOD UREA NITROGEN 10 MG/DL (7-18); CHLORIDE 107 MEQ/L (98-107); GLOMERULAR FILTRATION RATE 106 ML/MIN (>89); MAGNESIUM 1.9 MG/DL (1.5-2.5); POTASSIUM 3.8 MEQ/L (3.5-5.1); SODIUM (NA) 137 MEQ/L (136-145); TOTAL BILIRUBIN ADULT 0.5 MG/DL (0.2-1.0)
[2016-06-08 06:46] LABS: HEMO FLAGS AUTO DIFF
[2016-06-08 06:47] LABS: PLATELET COUNT 11 TH/MM3 (150-450)
[2016-06-08] MEDS: MORPHINE SULFATE 4 MG/ML INJ IV PUSH PRN (07:04)
[2016-06-08] MEDS: ONDANSETRON HCL 4 MG/2 ML VIAL IV PRN ×2 (07:05→20:56)
[2016-06-08 08:00] VITALS: BP 129/58; PULSE 98; RESP 18; TEMP 96.8; O2SAT 97
[2016-06-08] MEDS: NYSTAT/DIPHENHY/LIDO MOUTHWASH (Adult) 120ML SWISH-SWAL SCH ×3 (09:00→21:00)
[2016-06-08] MEDS: DIAZEPAM 10 MG TAB PO SCH ×2 (09:08→20:57)
[2016-06-08] MEDS: ALLOPURINOL 300 MG TAB PO SCH (09:08)
[2016-06-08] MEDS: FLUCONAZOLE 200 MG TAB PO SCH (09:08)
[2016-06-08] MEDS: FUROSEMIDE 20 MG TAB PO SCH (09:08)
[2016-06-08] MEDS: AZITHROMYCIN 250 MG TAB PO SCH (09:08)
[2016-06-08] MEDS: POTASSIUM CHLORIDE 10 MEQ CAP PO SCH (09:08)
[2016-06-08] MEDS: GABAPENTIN 300 MG CAP PO SCH ×3 (09:08→18:00)
[2016-06-08] MEDS: PANTOPRAZOLE SOD 40 MG DELAYED RELEASE TAB PO SCH (09:08)
[2016-06-08] MEDS: FAMOTIDINE 20 MG TAB PO SCH ×2 (09:08→20:57)
[2016-06-08] MEDS: SODIUM CHLORIDE 0.9% FLUSH 5 ML FLUSH IVF SCH (09:15)
[2016-06-08] MEDS: SODIUM CHLORIDE 0.9% FLUSH 5 ML FLUSH IV SCH ×2 (09:15→21:00)
[2016-06-08 10:05] LABS: PLATELET ESTIMATE SMEAR RARE (NORMAL); PLATELET MORPHOLOGY NORMAL (NORMAL); SCAN/DIFF FINAL DIFF MANUAL; WBC DIFF SAMPLE 40
[2016-06-08] MEDS ORDERED: PHARMACY ORDERED LAB XX ONE (11:45)
[2016-06-08 12:00] VITALS: BP 130/59; PULSE 86; RESP 16; TEMP 98.6; O2SAT 95
[2016-06-08] MEDS: SODIUM CHLOR 0.9% 1000 ML INJ 1,000 ML IV SCH ×3 (12:32→23:18)
--- NOTE | 2016-06-08 12:35 | PD.ONC.PN ---
Subjective Subjective Remarks T max 99.2 overnight. Pt states she feels sleepy today. She has a friend coming in today to cut her hair. She mentions it has started to fall out. She walked the halls yesterday and had some SOB on exertion. She has no other complaints. Objective Data Date Time Temp Pulse Resp B/P Pulse Ox O2 Delivery O2 Flow Rate FiO2 06/08/16 08:00 96.8 98 18 129/58 97 06/08/16 05:10 99.2 112 20 121/60 95 06/08/16 00:00 98.0 114 20 121/70 95 06/07/16 20:00 99.4 110 18 102/63 96 06/07/16 16:00 98.1 108 16 154/70 98 06/08/16 06/08/16 06/08/16 07:00 15:00 23:00 Intake Total 2510 ml Balance 2510 ml Result Diagram: 06/08/16 0510 06/08/16 0510 Laboratory Results Laboratory Tests Test 06/08/16 05:10 White Blood Count 0.5 TH/MM3 Red Blood Count 2.62 MIL/MM3 Hemoglobin 8.5 GM/DL Hematocrit 24.8 % Mean Corpuscular Volume 94.9 FL Mean Corpuscular Hemoglobin 32.7 PG Mean Corpuscular Hemoglobin 34.4 % Concent Red Cell Distribution Width 13.6 % Platelet Count 11 TH/MM3 Mean Platelet Volume 8.1 FL Neutrophils (%) (Auto) % Lymphocytes (%) (Auto) % Monocytes (%) (Auto) % Eosinophils (%) (Auto) % Basophils (%) (Auto) % Neutrophils # (Auto) TH/MM3 Lymphocytes # (Auto) TH/MM3 Monocytes # (Auto) TH/MM3 Eosinophils # (Auto) TH/MM3 Basophils # (Auto) TH/MM3 CBC Comment AUTO DIFF Differential Total Cells 40 Counted Lymphocytes % 100 % Neutrophils # (Manual) 0.0 TH/MM3 Differential Comment FINAL DIFF MANUAL Platelet Estimate RARE Platelet Morphology Comment NORMAL Red Cell Morphology Comment NORMAL Sodium Level 137 MEQ/L Potassium Level 3.8 MEQ/L Chloride Level 107 MEQ/L Carbon Dioxide Level 22.6 MEQ/L Anion Gap 7 MEQ/L Blood Urea Nitrogen 10 MG/DL Creatinine 0.58 MG/DL Estimat Glomerular Filtration 106 ML/MIN Rate Random Glucose 97 MG/DL Calcium Level 7.8 MG/DL Phosphorus Level 2.4 MG/DL Magnesium Level 1.9 MG/DL Total Bilirubin 0.5 MG/DL Aspartate Amino Transf 4 U/L (AST/SGOT) Alanine Aminotransferase 12 U/L (ALT/SGPT) Alkaline Phosphatase 42 U/L Total Protein 6.4 GM/DL Albumin 2.7 GM/DL Culture Results Microbiology Date/Time Procedure Status Source Growth 06/05/16 14:33 Aerobic Blood Culture - Preliminary Resulted Blood Line NO GROWTH IN 3 DAYS 06/05/16 14:33 Anaerobic Blood Culture - Preliminary Resulted Blood Line NO GROWTH IN 3 DAYS Administered Medications Medications (Trade) Dose Ordered Sig/Prashant Route PRN Reason Start Time Stop Time Status Last Admin Dose Admin Carisoprodol (Soma) 350 mg TID PRN PO PAIN 05/16/16 17:30 05/27/16 09:17 Furosemide (Lasix) 20 mg DAILY PO 05/17/16 09:00 06/08/16 09:08 Gabapentin (Neurontin) 300 mg TID PO 05/16/16 18:00 06/08/16 09:08 Levothyroxine Sodium (Synthroid) 25 mcg DAILY@06 PO 05/17/16 06:00 06/08/16 05:08 Potassium Chloride (KCl) 10 meq DAILY PO 05/17/16 09:00 06/08/16 09:08 Famotidine (Pepcid) 20 mg BID PO 05/16/16 21:00 06/08/16 09:08 IV Flush (NS Flush) 2 ml BID IV 05/16/16 21:00 06/08/16 09:15 Ondansetron HCl (Zofran Inj) 4 mg Q6H PRN IV NAUSEA 05/16/16 17:45 06/08/16 07:05 Acetaminophen (Tylenol) 650 mg Q6HR PRN PO headache 05/17/16 06:30 06/05/16 07:59 Oxycodone/ Acetaminophen (Percocet 5-325 Mg) 1 tab Q4H PRN PO pain 1-5 05/20/16 10:00 06/06/16 23:32 Pantoprazole Sodium (Protonix) 40 mg DAILY PO 05/22/16 09:00 06/08/16 09:08 Oxycodone HCl (Roxicodone) 10 mg Q4H PRN PO pain 6-10 05/21/16 16:00 06/08/16 05:09 IV Flush (NS Flush) DAILY IVF 05/24/16 09:00 06/08/16 09:15 Heparin Sodium (Porcine) (Heparin Central Flush) DAILY IVF 05/24/16 09:00 06/07/16 16:37 IV Flush (NS Flush) UNSCH PRN IVF SEE PROTOCOL 05/23/16 15:30 06/04/16 04:31 Heparin Sodium (Porcine) (Heparin Central Flush) UNSCH PRN IVF SEE PROTOCOL 05/23/16 15:30 06/02/16 04:01 Docusate Sodium (Colace) 100 mg BID PO 05/24/16 11:00 Hold 06/05/16 07:58 Polyethylene Glycol 17 gm 17 gm DAILY PO 05/25/16 14:30 Hold 06/04/16 08:27 Sodium Chloride (NS 1000 ml Inj) 1,000 ml @ 100 mls/hr Q10H IV 05/26/16 09:30 06/07/16 20:42 Allopurinol (Zyloprim) 300 mg DAILY PO 05/26/16 09:30 06/08/16 09:08 Morphine Sulfate (Morphine Inj) 2 mg Q2HR PRN IV PUSH SEVERE BREAKTHROUGH PAIN 05/27/16 08:45 06/08/16 07:04 Lactulose (Lactulose Liq) 30 ml DAILY PO 05/27/16 09:00 Hold 06/05/16 07:57 Diazepam (Valium) 10 mg Q12HR PO 05/28/16 09:00 06/08/16 09:08 Temazepam (Restoril) 15 mg HS PRN PO SLEEP 05/28/16 08:00 06/01/16 22:23 Multi-Ingredient Mouthwash/Gargle (Magic Mouthwash Adult Liq) 5 ml QID SWISH-SWAL 06/03/16 09:00 06/07/16 20:38 Acyclovir (Zovirax) 400 mg Q8HR PO 06/03/16 14:00 06/08/16 05:08 Fluconazole 200 mg 200 mg DAILY PO 06/03/16 09:00 06/08/16 09:08 Cefepime HCl/ Sodium Chloride (Maxipime Inj/NS Inj) 100 ml @ 200 mls/hr Q8H IV 06/05/16 18:00 06/08/16 09:07 Azithromycin (Zithromax) 500 mg DAILY PO 06/05/16 14:00 06/08/16 09:08 Metronidazole 500 mg 500 mg Q8HR PO 06/05/16 14:00 06/08/16 05:08 Vancomycin HCl/ Sodium Chloride (Vancomycin Inj/ NS 250 ml Inj) 262.5 ml @ 250 mls/hr Q12H IV 06/06/16 00:00 06/08/16 00:29 Objective Remarks GENERAL: Middle aged female, lying in bed in no distress. SKIN: Warm and dry. Donaldson catheter, right chest wall HEAD: Normocephalic. EYES: No injection or drainage. NECK: Supple, trachea midline. CARDIOVASCULAR: +S1/S2. RESPIRATORY: Breath sounds equal bilaterally. No accessory muscle use. GASTROINTESTINAL: Abdomen soft. Nontender, nondistended. EXTREMITIES: No cyanosis. no edema. fine rash b/l upper thighs NEUROLOGICAL: AO x3. normal speech. Assessment/Plan Problem List: (1) AML (acute myeloid leukemia) Status: Acute Plan: 06/08/16: No issues overnight. Plt's are low at 11,000. Likely will drop again tomorrow, so we will transfuse x1 dose today. No bleeding. 06/07/16: Afebrile. Neutropenic precautions continue. 06/06/16: afebrile overnight. continue abx per ID. pain pump refilled. 06/05/16: spiked fever overnight. started on Cefepime. Levaquin stopped. ID consulted. CT ab/pelvis negative 06/04/16: D9. 1 unit plt 06/03/16: D8 chemo finishes late tonight. started on acyclovir/diflucan/levaquin for prophylaxis. 06/01/16: D6. nauseated. otherwise no events. continue chemo. 05/31/16:D5. no events. 05/30/16: D4 chemotherapy. no transfusion today. 05/29/16: D3 chemotherapy. Tolerated well Blood counts trending lower. Transfuse PRBC 2U. CSF cytology negative. 05/28/16: Tolerated chemo well, no significant side effect. Blood counts started to trend down. 05/27/16: D1. Albina-C + Idarubicin. AML w/ intermediate risk cytogenetics. FLT3 is pending. (2) Pancytopenia Status: Acute Plan: transfuse for platelets less than 10k and a Hgb of less than 7. (3) Rectal bleed Status: Resolved Plan: -- Controlled. No new bleeding. EGD/colonoscopy on 05/20/15 showed gastritis, irregular Z line and rectal nodule. Path report negative for malignancy. -- Had hemorrhoid surgery three weeks prior to admission with Dr. Schwartz. (4) presence of pain pump Status: Chronic Plan: --patient with intrathecal pain pump --managed by Dr. Omer outpatient --pain pump refilled on 06/06/16 Assessment 61 y/o female with pancytopenia, suspected AML Plan 1. Daily CBC with diff. 2. Transfuse for platelets less than 10K and hgb less than 7; will go ahead and transfuse 1 unit irradiated platelets today for plt of 11k 3. Plan for repeat BMB at day 21 to see if in remission. 4. Continue antibiotics per ID. 5. Continue supportive care Attending Statement The exam, history, and the medical decision-making described in the above note were completed with the assistance of the mid-level provider. I reviewed and agree with the findings presented. I attest that I had a [id number] encounter with the patient on the same day, and personally performed and documented my assessment and findings in the medical record. New macular rash on b/l LE. will closely monitor. possibly drug reaction. Transfuse 1 unit of irradiated platelets. Replace electrolytes. discussed with patient. also d/w RN Problem Qualifiers (1) AML (acute myeloid leukemia): Qualified Code: C92.00 - Acute myeloid leukemia not having achieved remission Marissa uJarez Jun 08, 2016 12:35 Wilfredo Hooker MD Jun 09, 2016 00:05
[2016-06-08] MEDS ORDERED: diphenhydrAMINE HCL 25 MG CAP PO PRN (13:00)
[2016-06-08] MEDS ORDERED: SODIUM CHLOR 0.9% 250 ML INJ 250 ML IV ONE (13:00)
--- NOTE | 2016-06-08 14:30 | HHI.PR ---
Subjective Remarks The patient's sister was at the bedside. The patient said she had a shower yesterday and she felt a lot better because of that. She noticed she was losing a lot of her hair. She says her pain can be as 7 out of 10 at times. All the pain medications are helping. She still has a little abdominal cramping on the left lower quadrant. She endorses a small amount of diarrhea. Objective Vitals Vital Signs Date Time Temp Pulse Resp B/P Pulse Ox O2 Delivery O2 Flow Rate FiO2 06/08/16 12:00 98.6 86 16 130/59 95 06/08/16 08:00 96.8 98 18 129/58 97 06/08/16 05:10 99.2 112 20 121/60 95 06/08/16 00:00 98.0 114 20 121/70 95 06/07/16 20:00 99.4 110 18 102/63 96 06/07/16 16:00 98.1 108 16 154/70 98 I/O 06/07/16 06/07/16 06/07/16 06/08/16 06/08/16 06/08/16 07:00 15:00 23:00 07:00 15:00 23:00 Intake Total 240 ml 3359 ml 960 ml 2510 ml Balance 240 ml 3359 ml 960 ml 2510 ml Intake Oral 240 ml 1200 ml 960 ml 960 ml IV Total 2159 ml 1550 ml # Voids 2 4 7 3 # Bowel Movements 0 1 1 Result Diagram: 06/08/16 0510 06/08/16 0510 Imaging Last Impressions Abdomen/Pelvis CT 06/05/16 0000 Signed Impressions: Service Date/Time: May 22:13 - CONCLUSION: Minimal fluid in the pelvis, otherwise unremarkable. Cynthia Guardado MD Chest X-Ray 06/04/16 0000 Signed Impressions: Service Date/Time: Saturday, June 04, 2016 21:23 - CONCLUSION: No acute disease. Kilo Cotto MD Lumbar Puncture Fluoroscopy 05/23/16 0000 Signed Impressions: Service Date/Time: Monday, May 23, 2016 14:16 - CONCLUSION: Uncomplicated fluoroscopically guided lumbar puncture. Bubba Cherry MD Catheter Placement X-Ray 05/23/16 0000 Signed Impressions: Service Date/Time: Monday, May 23, 2016 14:16 - CONCLUSION: Uncomplicated Donaldson catheter placement as above. Bubba Cherry MD Bone Biopsy CT 05/20/16 0846 Signed Impressions: Service Date/Time: Friday, May 20, 2016 09:13 - CONCLUSION: 1. Uncomplicated CT guided bone marrow aspirate. 2. Uncomplicated CT guided bone marrow biopsy. Yazan Saucedo MD Head CT 05/20/16 0000 Signed Impressions: Service Date/Time: Friday, May 20, 2016 15:16 - CONCLUSION: Normal examination for a patient of this age. No significant change has occurred. Emilio Thomas MD Chest CT 05/17/16 0000 Signed Impressions: Service Date/Time: Tuesday, May 17, 2016 15:14 - CONCLUSION: 1. 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 There are trace to very small bilateral pleural effusions and mild cardiomegaly noted. 2. No lobar consolidation. 3. Upper limits of normal to mildly enlarged mediastinal and bilateral hilar lymph nodes, nonspecific but presumably reactive. Bravo Mendez MD Objective Remarks GENERAL: This is a well-nourished, well-developed patient, in no apparent distress. HEENT: NC, AT. Jaw pain upon palpation. CARDIOVASCULAR: Regular rate and rhythm. Grade 2 systolic murmur appreciated. RESPIRATORY: CTAB. No W/R/R. GASTROINTESTINAL: Abdomen soft, nontender, nondistended. Pain pump in RLQ. MUSCULOSKELETAL: Extremities without clubbing, cyanosis, or edema. NEURO: Alert & Oriented x4 to person, place, time, situation. Moves all ext x4. Normal finger to nose test. EOMI. PSYCH: Mood and affect appropriate. Procedures EGD/ colonoscopy Bone marrow biopsy Medications and IVs Current Medications Medications (Trade) Dose Ordered Sig/Prashant Route Start Time Stop Time Status Last Admin (Soma) 350 mg TID PRN PO 05/16/16 17:30 05/27/16 09:17 (Lasix) 20 mg DAILY PO 05/17/16 09:00 06/08/16 09:08 (Neurontin) 300 mg TID PO 05/16/16 18:00 06/08/16 13:49 (Synthroid) 25 mcg DAILY@06 PO 05/17/16 06:00 06/08/16 05:08 (KCl) 10 meq DAILY PO 05/17/16 09:00 06/08/16 09:08 (Pepcid) 20 mg BID PO 05/16/16 21:00 06/08/16 09:08 (NS Flush) 2 ml UNSCH PRN IV 05/16/16 17:45 (NS Flush) 2 ml BID IV 05/16/16 21:00 06/08/16 09:15 (Zofran Inj) 4 mg Q6H PRN IV 05/16/16 17:45 06/08/16 07:05 Acetaminophen 650 mg 650 mg Q6HR PRN PO 05/17/16 06:30 06/05/16 07:59 (Lr 1000 ml Inj) 1,000 ml @ 30 mls/hr Q24H IV 05/20/16 01:15 (Percocet 5-325 Mg) 1 tab Q4H PRN PO 05/20/16 10:00 06/06/16 23:32 (Canasa Supp) 1,000 mg HS RECTAL 05/20/16 21:00 Hold (Protonix) 40 mg DAILY PO 05/22/16 09:00 06/08/16 09:08 (Roxicodone) 10 mg Q4H PRN PO 05/21/16 16:00 06/08/16 05:09 (NS Flush) DAILY IVF 05/24/16 09:00 06/08/16 09:15 (Heparin Central Flush) DAILY IVF 05/24/16 09:00 06/07/16 16:37 (NS Flush) UNSCH PRN IVF 05/23/16 15:30 06/04/16 04:31 (Heparin Central Flush) UNSCH PRN IVF 05/23/16 15:30 06/02/16 04:01 (Colace) 100 mg BID PO 05/24/16 11:00 Hold 06/05/16 07:58 (Miralax) 17 gm DAILY PO 05/25/16 14:30 Hold 06/04/16 08:27 Lactic Acid 1 applic 1 applic BID PRN TOPICAL 05/25/16 14:30 (NS 1000 ml Inj) 1,000 ml @ 100 mls/hr Q10H IV 05/26/16 09:30 06/08/16 12:32 (Zyloprim) 300 mg DAILY PO 05/26/16 09:30 06/08/16 09:08 (Morphine Inj) 2 mg Q2HR PRN IV PUSH 05/27/16 08:45 06/08/16 07:04 (Lactulose Liq) 30 ml DAILY PO 05/27/16 09:00 Hold 06/05/16 07:57 (Valium) 10 mg Q12HR PO 05/28/16 09:00 06/08/16 09:08 (Restoril) 15 mg HS PRN PO 05/28/16 08:00 06/01/16 22:23 (Magic Mouthwash Adult Liq) 5 ml QID SWISH-SWAL 06/03/16 09:00 06/07/16 20:38 (Zovirax) 400 mg Q8HR PO 06/03/16 14:00 06/08/16 13:49 Fluconazole 200 mg 200 mg DAILY PO 06/03/16 09:00 06/08/16 09:08 (Maxipime Inj/NS Inj) 100 ml @ 200 mls/hr Q8H IV 06/05/16 18:00 06/08/16 09:07 Azithromycin 500 mg 500 mg DAILY PO 06/05/16 14:00 06/08/16 09:08 (Vancomycin Consult Pharmacy) 0 ml @ 0 mls/hr UNSCH OTHER 06/05/16 13:45 Metronidazole 500 mg 500 mg Q8HR PO 06/05/16 14:00 06/08/16 13:49 (Vancomycin Inj/ NS 250 ml Inj) 262.5 ml @ 250 mls/hr Q12H IV 06/06/16 00:00 06/08/16 13:50 Patient Own Medication PT OWN MED: HYDROMORPHONE 40 MG/... UNSCH OTHER 06/06/16 11:00 (NS 250 ml Inj) 250 ml @ 15 mls/hr ONCE ONCE IV 06/08/16 13:00 06/09/16 05:39 (Benadryl) 25 mg Q4H PRN PO 06/08/16 13:00 06/08/16 17:01 A/P Problem List: (1) Pancytopenia ICD Code: D61.818 Status: Acute (2) GI bleed ICD Code: K92.2 Status: Acute (3) AML (acute myeloid leukemia) ICD Code: C92.00 Status: Acute (4) Symptomatic anemia ICD Code: D64.9 Status: Acute (5) UTI (urinary tract infection) ICD Code: N39.0 Status: Acute Assessment and Plan 61-year-old female with recent hemorrhoidectomy 3 weeks ago presented with severe symptomatic anemia, thrombocytopenia, and leukopenia. AML Bone marrow biopsy revealed AML. Oncology consult appreciated. - chemotherapy planning per oncology. Port placement 05/23. Chemo started 05/27. - On IVFs and allopurinol to help prevent tumor lysis syndrome. - Follow-up CBC and transfuse as needed. Transfusing 1 unit of platelets 06/08. - neutropenic precautions. - antibiotics. Neutropenic fever No obvious source. ID consult appreciated. C diff negative. - antibiotics, antifungals and antivirals per ID. - follow culture data. Symptomatic anemia and GI bleeding Recent hemorrhoidectomy 3 weeks ago. Patient denies any active bleeding since the procedure. Hemoccult in the emergency room was positive. Appreciate GI following. S/p EGD/colonoscopy 05/20 which revealed gastritis and a rectal ulcer. - Continue Protonix. Monitor for bleeding. - Follow CBC and transfuse as needed. Transfusing 1 unit of plts 06/08. Headache New in onset, constant. Pt also notes difficulty reading s/t blurry vision. CT brain negative for an acute process. Fioricet did not help. S/p LP per oncology. Improved. - pain control as needed. Chronic back pain Stable. Patient has a Dilaudid/fentanyl pump implanted on the right lower quadrant of her abdomen. The pain pump was refilled 06/07. - continue home meds. - pain control as needed for breakthrough. - continue home pain pump. Anxiety The pt has been on Valium for many years but is reporting breakthrough anxiety. - continue Valium as needed. GI prophylaxis: Protonix/ ranitidine. DVT PPx: SCDs. Chemoprophylaxis contraindicated. Discharge Planning Awaiting clinical improvement. Problem Qualifiers (1) GI bleed: Qualified Code: K92.2 - Gastrointestinal hemorrhage, unspecified gastrointestinal hemorrhage type (2) AML (acute myeloid leukemia): Qualified Code: C92.00 - Acute myeloid leukemia not having achieved remission Gustavo Mejia DO Jun 08, 2016 14:30
[2016-06-08] MEDS: ACETAMINOPHEN 325 MG TAB PO PRN (15:10)
[2016-06-08 16:00] VITALS: BP 125/84; PULSE 88; RESP 18; TEMP 98.4; O2SAT 95
[2016-06-08 20:00] VITALS: BP 150/68; PULSE 81; RESP 18; TEMP 98.3; O2SAT 96
[2016-06-09] VITALS (8 sets, daily range): BP systolic 110–144; BP diastolic 56–65; PULSE 76–108; RESP 16–20; TEMP 97.3–99.7; O2SAT 95–98
[2016-06-09] MEDS: LACTATED RINGER'S 1000 ML IV SCH (00:15)
[2016-06-09] MEDS: ACETAMINOPHEN 325 MG TAB PO PRN (00:18)
[2016-06-09] MEDS: CEFEPIME INJ 2,000 MG in SODIUM CHLORIDE 0.9% INJ 100 ML IV SCH ×3 (03:07→18:25)
[2016-06-09] MEDS: ACYCLOVIR 200 MG CAP PO SCH ×3 (06:13→21:49)
[2016-06-09] MEDS: metroNIDAZOLE 500 MG TAB PO SCH ×3 (06:13→21:49)
[2016-06-09] MEDS: LEVOTHYROXINE SODIUM 25 MCG TAB PO SCH (06:13)
[2016-06-09 06:18] LABS: MEAN CELL VOLUME 92.7 FL (80.0-100.0); MEAN CORPUSCULAR HEMOGLOBIN 32.4 PG (27.0-34.0); PLATELET COUNT 27 TH/MM3 (150-450); RED BLOOD COUNT 2.09 MIL/MM3 (4.00-5.30); RED CELL DISTRIBUTION WIDTH 13.8 % (11.6-17.2); WHITE BLOOD COUNT 0.4 TH/MM3 (4.0-11.0)
[2016-06-09 06:31] LABS: HEMO FLAGS AUTO DIFF
[2016-06-09 06:33] LABS: HEMATOCRIT 19.4 % (35.0-46.0)
[2016-06-09 06:48] LABS: BICARBONATE 23.4 MEQ/L (21.0-32.0); MAGNESIUM 1.7 MG/DL (1.5-2.5); POTASSIUM 3.3 MEQ/L (3.5-5.1)
[2016-06-09 07:06] LABS: CALCIUM-PROTEIN CORRECTED 7.6 MG/DL (8.5-10.1)
[2016-06-09] MEDS ORDERED: diphenhydrAMINE HCL 25 MG CAP PO PRN (07:30)
[2016-06-09] MEDS ORDERED: SODIUM CHLOR 0.9% 250 ML INJ 250 ML IV ONE (07:30)
[2016-06-09] MEDS ORDERED: ACETAMINOPHEN 325 MG TAB PO PRN (07:30)
[2016-06-09 07:54] LABS: WBC DIFF SAMPLE 50
[2016-06-09 07:55] LABS: PLATELET ESTIMATE SMEAR LOW (NORMAL); PLATELET MORPHOLOGY NORMAL (NORMAL); SCAN/DIFF FINAL DIFF MANUAL
[2016-06-09] MEDS: ONDANSETRON HCL 4 MG/2 ML VIAL IV PRN ×2 (09:26→18:24)
[2016-06-09] MEDS: PANTOPRAZOLE SOD 40 MG DELAYED RELEASE TAB PO SCH (09:27)
[2016-06-09] MEDS: MORPHINE SULFATE 4 MG/ML INJ IV PUSH PRN (09:27)
[2016-06-09] MEDS: GABAPENTIN 300 MG CAP PO SCH ×3 (09:27→18:24)
[2016-06-09] MEDS: AZITHROMYCIN 250 MG TAB PO SCH (09:28)
[2016-06-09] MEDS: FAMOTIDINE 20 MG TAB PO SCH ×2 (09:28→21:49)
[2016-06-09] MEDS: FUROSEMIDE 20 MG TAB PO SCH (09:28)
[2016-06-09] MEDS: POTASSIUM CHLORIDE 10 MEQ CAP PO SCH (09:28)
[2016-06-09] MEDS: FLUCONAZOLE 200 MG TAB PO SCH (09:28)
[2016-06-09] MEDS: ALLOPURINOL 300 MG TAB PO SCH (09:29)
[2016-06-09] MEDS: DIAZEPAM 10 MG TAB PO SCH ×2 (09:29→21:49)
[2016-06-09] MEDS: SODIUM CHLORIDE 0.9% FLUSH 5 ML FLUSH IVF SCH (09:46)
[2016-06-09] MEDS: NYSTAT/DIPHENHY/LIDO MOUTHWASH (Adult) 120ML SWISH-SWAL SCH ×4 (09:47→21:49)
[2016-06-09] MEDS: SODIUM CHLORIDE 0.9% FLUSH 5 ML FLUSH IV SCH ×2 (09:47→21:00)
--- NOTE | 2016-06-09 11:14 | PD.ONC.PN ---
Subjective Subjective Remarks Tmax 99.7 this AM. Patient resting comfortably. She feels tired and a little dizzy today. She has aching in her bones. Objective Data Date Time Temp Pulse Resp B/P Pulse Ox O2 Delivery O2 Flow Rate FiO2 06/09/16 09:45 16 06/09/16 07:30 99.1 87 20 144/56 98 06/09/16 04:00 99.7 97 18 110/63 97 06/09/16 00:00 99.5 85 17 120/59 96 06/08/16 20:00 98.3 81 18 150/68 96 06/08/16 16:00 98.4 88 18 125/84 95 06/08/16 12:00 98.6 86 16 130/59 95 06/09/16 06/09/16 06/09/16 07:00 15:00 23:00 Intake Total 240 ml Balance 240 ml Result Diagram: 06/09/16 0315 06/09/16 0315 Laboratory Results Laboratory Tests Test 06/08/16 06/08/16 06/09/16 06/09/16 13:31 13:45 03:15 09:45 Blood Bank Comment Vancomycin Level Trough 8.8 MCG/ML White Blood Count 0.4 TH/MM3 Red Blood Count 2.09 MIL/MM3 Hemoglobin 6.8 GM/DL Hematocrit 19.4 % Mean Corpuscular Volume 92.7 FL Mean Corpuscular Hemoglobin 32.4 PG Mean Corpuscular Hemoglobin 35.0 % Concent Red Cell Distribution Width 13.8 % Platelet Count 27 TH/MM3 Mean Platelet Volume 7.8 FL Neutrophils (%) (Auto) % Lymphocytes (%) (Auto) % Monocytes (%) (Auto) % Eosinophils (%) (Auto) % Basophils (%) (Auto) % Neutrophils # (Auto) TH/MM3 Lymphocytes # (Auto) TH/MM3 Monocytes # (Auto) TH/MM3 Eosinophils # (Auto) TH/MM3 Basophils # (Auto) TH/MM3 CBC Comment AUTO DIFF Differential Total Cells 50 Counted Lymphocytes % 98 % Monocytes % 2 % Neutrophils # (Manual) 0.0 TH/MM3 Differential Comment FINAL DIFF MANUAL Platelet Estimate LOW Platelet Morphology Comment NORMAL Red Cell Morphology Comment NORMAL Sodium Level 142 MEQ/L Potassium Level 3.3 MEQ/L Chloride Level 113 MEQ/L Carbon Dioxide Level 23.4 MEQ/L Anion Gap 6 MEQ/L Blood Urea Nitrogen 9 MG/DL Creatinine 0.63 MG/DL Estimat Glomerular Filtration 96 ML/MIN Rate Random Glucose 101 MG/DL Calcium Level 6.8 MG/DL Protein Corrected Calcium 7.6 MG/DL Magnesium Level 1.7 MG/DL Total Protein 5.6 GM/DL Blood Type O POSITIVE Antibody Screen NEGATIVE Crossmatch Irradiated/Leukocyte-Reduced RBC Administered Medications Medications (Trade) Dose Ordered Sig/Prashant Route PRN Reason Start Time Stop Time Status Last Admin Dose Admin Carisoprodol (Soma) 350 mg TID PRN PO PAIN 05/16/16 17:30 05/27/16 09:17 Furosemide (Lasix) 20 mg DAILY PO 05/17/16 09:00 06/09/16 09:28 Gabapentin (Neurontin) 300 mg TID PO 05/16/16 18:00 06/09/16 09:27 Levothyroxine Sodium (Synthroid) 25 mcg DAILY@06 PO 05/17/16 06:00 06/09/16 06:13 Potassium Chloride (KCl) 10 meq DAILY PO 05/17/16 09:00 06/09/16 09:28 Famotidine (Pepcid) 20 mg BID PO 05/16/16 21:00 06/09/16 09:28 IV Flush (NS Flush) 2 ml BID IV 05/16/16 21:00 06/08/16 21:00 Ondansetron HCl (Zofran Inj) 4 mg Q6H PRN IV NAUSEA 05/16/16 17:45 06/09/16 09:26 Acetaminophen (Tylenol) 650 mg Q6HR PRN PO headache 05/17/16 06:30 06/09/16 00:18 Oxycodone/ Acetaminophen (Percocet 5-325 Mg) 1 tab Q4H PRN PO pain 1-5 05/20/16 10:00 06/06/16 23:32 Pantoprazole Sodium (Protonix) 40 mg DAILY PO 05/22/16 09:00 06/09/16 09:27 Oxycodone HCl (Roxicodone) 10 mg Q4H PRN PO pain 6-10 05/21/16 16:00 06/09/16 06:16 IV Flush (NS Flush) DAILY IVF 05/24/16 09:00 06/09/16 09:46 Heparin Sodium (Porcine) (Heparin Central Flush) DAILY IVF 05/24/16 09:00 06/09/16 09:47 IV Flush (NS Flush) UNSCH PRN IVF SEE PROTOCOL 05/23/16 15:30 06/04/16 04:31 Heparin Sodium (Porcine) (Heparin Central Flush) UNSCH PRN IVF SEE PROTOCOL 05/23/16 15:30 06/02/16 04:01 Docusate Sodium (Colace) 100 mg BID PO 05/24/16 11:00 Hold 06/05/16 07:58 Polyethylene Glycol 17 gm 17 gm DAILY PO 05/25/16 14:30 Hold 06/04/16 08:27 Sodium Chloride (NS 1000 ml Inj) 1,000 ml @ 100 mls/hr Q10H IV 05/26/16 09:30 06/08/16 23:18 Allopurinol (Zyloprim) 300 mg DAILY PO 05/26/16 09:30 06/09/16 09:29 Morphine Sulfate (Morphine Inj) 2 mg Q2HR PRN IV PUSH SEVERE BREAKTHROUGH PAIN 05/27/16 08:45 06/09/16 09:27 Lactulose (Lactulose Liq) 30 ml DAILY PO 05/27/16 09:00 Hold 06/05/16 07:57 Diazepam (Valium) 10 mg Q12HR PO 05/28/16 09:00 06/09/16 09:29 Temazepam (Restoril) 15 mg HS PRN PO SLEEP 05/28/16 08:00 06/01/16 22:23 Multi-Ingredient Mouthwash/Gargle (Magic Mouthwash Adult Liq) 5 ml QID SWISH-SWAL 06/03/16 09:00 06/07/16 20:38 Acyclovir (Zovirax) 400 mg Q8HR PO 06/03/16 14:00 06/09/16 06:13 Fluconazole 200 mg 200 mg DAILY PO 06/03/16 09:00 06/09/16 09:28 Cefepime HCl/ Sodium Chloride (Maxipime Inj/NS Inj) 100 ml @ 200 mls/hr Q8H IV 06/05/16 18:00 06/09/16 09:27 Azithromycin (Zithromax) 500 mg DAILY PO 06/05/16 14:00 06/09/16 09:28 Metronidazole 500 mg 500 mg Q8HR PO 06/05/16 14:00 06/09/16 06:13 Vancomycin HCl/ Sodium Chloride (Vancomycin Inj/ NS 250 ml Inj) 262.5 ml @ 250 mls/hr Q12H IV 06/06/16 00:00 06/08/16 23:17 Objective Remarks GENERAL: Middle aged female, lying in bed in nad. SKIN: Warm and dry. Donaldson catheter, right chest wall HEAD: Normocephalic. EYES: No injection or drainage. NECK: Supple, trachea midline. CARDIOVASCULAR: Regular rate and rhythm. RESPIRATORY: Breath sounds equal bilaterally. No accessory muscle use. GASTROINTESTINAL: Abdomen soft, non-tender. no masses. + pain pump palpated. EXTREMITIES: No cyanosis. no edema. NEUROLOGICAL: AO x3. normal speech. moving all extremities. Assessment/Plan Problem List: (1) AML (acute myeloid leukemia) Status: Acute Plan: 06/09/16:D14. 2 units pRBC today. 06/08/16: No issues overnight. Plt's are low at 11,000. Likely will drop again tomorrow, so we will transfuse x1 dose today. No bleeding. 06/07/16: Afebrile. Neutropenic precautions continue. 06/06/16: afebrile overnight. continue abx per ID. pain pump refilled. 06/05/16: spiked fever overnight. started on Cefepime. Levaquin stopped. ID consulted. CT ab/pelvis negative 06/04/16: D9. 1 unit plt 06/03/16: D8 chemo finishes late tonight. started on acyclovir/diflucan/levaquin for prophylaxis. 06/01/16: D6. nauseated. otherwise no events. continue chemo. 05/31/16:D5. no events. 05/30/16: D4 chemotherapy. no transfusion today. 05/29/16: D3 chemotherapy. Tolerated well Blood counts trending lower. Transfuse PRBC 2U. CSF cytology negative. 05/28/16: Tolerated chemo well, no significant side effect. Blood counts started to trend down. 05/27/16: D1. Albina-C + Idarubicin. AML w/ intermediate risk cytogenetics. FLT3 is pending. (2) Pancytopenia Status: Acute Plan: transfuse for platelets less than 10k and a Hgb of less than 7. (3) Rectal bleed Status: Resolved Plan: -- Controlled. No new bleeding. EGD/colonoscopy on 05/20/15 showed gastritis, irregular Z line and rectal nodule. Path report negative for malignancy. -- Had hemorrhoid surgery three weeks prior to admission with Dr. Schwartz. (4) presence of pain pump Status: Chronic Plan: --patient with intrathecal pain pump --managed by Dr. Omer outpatient --pain pump refilled on 06/06/16 Assessment 61 y/o female with pancytopenia, suspected AML Plan 1. 2units pRBC 2. continue abx 3. imodium PRN diarrhea 4. supportive care. Attending Statement The exam, history, and the medical decision-making described in the above note were completed with the assistance of the mid-level provider. I reviewed and agree with the findings presented. I attest that I had a [id number] encounter with the patient on the same day, and personally performed and documented my assessment and findings in the medical record. Diffused bone ache. + loose stools but no abdominal pain. Hgb trended lower. Transfuse PRBC. Continue abx per ID. Will repeat bone marrow biopsy later this week. Problem Qualifiers (1) AML (acute myeloid leukemia): Qualified Code: C92.00 - Acute myeloid leukemia not having achieved remission Radha Lawrence Jun 09, 2016 11:14 Ryan Tripp MD Jun 09, 2016 17:42
--- NOTE | 2016-06-09 14:51 | HHI.PR ---
Subjective Remarks As per RN the patient does not to look her usual self today Patient had a low-grade fever with a MAXIMUM TEMPERATURE of 99.7 this morning Patient states that she does not feel well, complains of abdominal discomfort but not pain, denies nausea, denies vomiting States her abdomen feels somewhat distended. The patient had diarrhea until this morning which subsided after being given Imodium Denies chest pain or shortness of breath, denies cough Denies rash Denies headache. hemoglobin dropped Objective Vitals Vital Signs Date Time Temp Pulse Resp B/P Pulse Ox O2 Delivery O2 Flow Rate FiO2 06/09/16 12:48 98.8 108 16 123/65 97 06/09/16 12:22 16 06/09/16 11:00 99.3 105 20 139/61 97 06/09/16 09:45 16 06/09/16 07:30 99.1 87 20 144/56 98 06/09/16 04:00 99.7 97 18 110/63 97 06/09/16 00:00 99.5 85 17 120/59 96 06/08/16 20:00 98.3 81 18 150/68 96 06/08/16 16:00 98.4 88 18 125/84 95 I/O 06/08/16 06/08/16 06/08/16 06/09/16 06/09/16 06/09/16 07:00 15:00 23:00 07:00 15:00 23:00 Intake Total 2510 ml 600 ml 240 ml 240 ml Balance 2510 ml 600 ml 240 ml 240 ml Intake Oral 960 ml 600 ml 240 ml 240 ml IV Total 1550 ml # Voids 3 8 3 1 # Bowel Movements 1 0 0 3 Result Diagram: 06/09/165 06/09/16 0315 Imaging Last Impressions Abdomen/Pelvis CT 06/05/16 0000 Signed Impressions: Service Date/Time: May 22:13 - CONCLUSION: Minimal fluid in the pelvis, otherwise unremarkable. Cynthia Guardado MD Chest X-Ray 06/04/16 0000 Signed Impressions: Service Date/Time: Saturday, June 04, 2016 21:23 - CONCLUSION: No acute disease. Kilo Cotto MD Lumbar Puncture Fluoroscopy 05/23/16 0000 Signed Impressions: Service Date/Time: Monday, May 23, 2016 14:16 - CONCLUSION: Uncomplicated fluoroscopically guided lumbar puncture. Bubba Cherry MD Catheter Placement X-Ray 05/23/16 0000 Signed Impressions: Service Date/Time: Monday, May 23, 2016 14:16 - CONCLUSION: Uncomplicated Donaldson catheter placement as above. Bubba Cherry MD Bone Biopsy CT 05/20/16 0846 Signed Impressions: Service Date/Time: Friday, May 20, 2016 09:13 - CONCLUSION: 1. Uncomplicated CT guided bone marrow aspirate. 2. Uncomplicated CT guided bone marrow biopsy. Yazan Saucedo MD Head CT 05/20/16 0000 Signed Impressions: Service Date/Time: Friday, May 20, 2016 15:16 - CONCLUSION: Normal examination for a patient of this age. No significant change has occurred. Emilio Thomas MD Chest CT 05/17/16 0000 Signed Impressions: Service Date/Time: Tuesday, May 17, 2016 15:14 - CONCLUSION: 1. 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 There are trace to very small bilateral pleural effusions and mild cardiomegaly noted. 2. No lobar consolidation. 3. Upper limits of normal to mildly enlarged mediastinal and bilateral hilar lymph nodes, nonspecific but presumably reactive. Bravo Mendez MD Objective Remarks GENERAL: This is a well-nourished, well-developed patient, in no apparent distress. HEENT: NC, AT. Jaw pain upon palpation. Pale conjunctiva CARDIOVASCULAR: Regular rate and rhythm. Grade 2 systolic murmur appreciated. RESPIRATORY: CTAB. No W/R/R. GASTROINTESTINAL: Abdomen soft, nontender, mildly distended with hypoactive bowel sounds. Pain pump in RLQ. MUSCULOSKELETAL: Extremities without clubbing, cyanosis, or edema. NEURO: Alert & Oriented x4 to person, place, time, situation. Moves all ext x4. Normal finger to nose test. EOMI. PSYCH: Mood and affect appropriate. Procedures EGD/ colonoscopy Bone marrow biopsy Medications and IVs Current Medications Medications (Trade) Dose Ordered Sig/Prashant Route Start Time Stop Time Status Last Admin (Soma) 350 mg TID PRN PO 05/16/16 17:30 05/27/16 09:17 (Lasix) 20 mg DAILY PO 05/17/16 09:00 06/09/16 09:28 (Neurontin) 300 mg TID PO 05/16/16 18:00 06/09/16 14:57 (Synthroid) 25 mcg DAILY@06 PO 05/17/16 06:00 06/09/16 06:13 (KCl) 10 meq DAILY PO 05/17/16 09:00 06/09/16 09:28 (Pepcid) 20 mg BID PO 05/16/16 21:00 06/09/16 09:28 (NS Flush) 2 ml UNSCH PRN IV 05/16/16 17:45 (NS Flush) 2 ml BID IV 05/16/16 21:00 06/08/16 21:00 (Zofran Inj) 4 mg Q6H PRN IV 05/16/16 17:45 06/09/16 09:26 Acetaminophen 650 mg 650 mg Q6HR PRN PO 05/17/16 06:30 06/09/16 00:18 (Lr 1000 ml Inj) 1,000 ml @ 30 mls/hr Q24H IV 05/20/16 01:15 (Percocet 5-325 Mg) 1 tab Q4H PRN PO 05/20/16 10:00 06/06/16 23:32 (Canasa Supp) 1,000 mg HS RECTAL 05/20/16 21:00 Hold (Protonix) 40 mg DAILY PO 05/22/16 09:00 06/09/16 09:27 (Roxicodone) 10 mg Q4H PRN PO 05/21/16 16:00 06/09/16 12:19 (NS Flush) DAILY IVF 05/24/16 09:00 06/09/16 09:46 (Heparin Central Flush) DAILY IVF 05/24/16 09:00 06/09/16 09:47 (NS Flush) UNSCH PRN IVF 05/23/16 15:30 06/04/16 04:31 (Heparin Central Flush) UNSCH PRN IVF 05/23/16 15:30 06/02/16 04:01 (Colace) 100 mg BID PO 05/24/16 11:00 Hold 06/05/16 07:58 (Miralax) 17 gm DAILY PO 05/25/16 14:30 Hold 06/04/16 08:27 Lactic Acid 1 applic 1 applic BID PRN TOPICAL 05/25/16 14:30 (NS 1000 ml Inj) 1,000 ml @ 100 mls/hr Q10H IV 05/26/16 09:30 06/09/16 14:58 (Zyloprim) 300 mg DAILY PO 05/26/16 09:30 06/09/16 09:29 (Morphine Inj) 2 mg Q2HR PRN IV PUSH 05/27/16 08:45 06/09/16 09:27 (Lactulose Liq) 30 ml DAILY PO 05/27/16 09:00 Hold 06/05/16 07:57 (Valium) 10 mg Q12HR PO 05/28/16 09:00 06/09/16 09:29 (Restoril) 15 mg HS PRN PO 05/28/16 08:00 06/01/16 22:23 (Magic Mouthwash Adult Liq) 5 ml QID SWISH-SWAL 06/03/16 09:00 06/07/16 20:38 (Zovirax) 400 mg Q8HR PO 06/03/16 14:00 06/09/16 14:57 Fluconazole 200 mg 200 mg DAILY PO 06/03/16 09:00 06/09/16 09:28 (Maxipime Inj/NS Inj) 100 ml @ 200 mls/hr Q8H IV 06/05/16 18:00 06/09/16 09:27 Azithromycin 500 mg 500 mg DAILY PO 06/05/16 14:00 06/09/16 09:28 (Vancomycin Consult Pharmacy) 0 ml @ 0 mls/hr UNSCH OTHER 06/05/16 13:45 Metronidazole 500 mg 500 mg Q8HR PO 06/05/16 14:00 06/09/16 14:57 (Vancomycin Inj/ NS 250 ml Inj) 262.5 ml @ 250 mls/hr Q12H IV 06/06/16 00:00 06/09/16 14:58 Patient Own Medication PT OWN MED: HYDROMORPHONE 40 MG/... UNSCH OTHER 06/06/16 11:00 (NS 250 ml Inj) 250 ml @ 15 mls/hr ONCE ONCE IV 06/09/16 07:30 06/10/16 00:09 06/09/16 11:51 (Imodium) 2 mg UNSCH PRN PO 06/09/16 11:15 Urinary Catheter: No Vascular Central Line Catheter: No A/P Problem List: (1) AML (acute myeloid leukemia) ICD Code: C92.00 Status: Acute Plan: As shown on bone marrow biopsy. Medical oncology consulted and following. Patient is status post chemotherapy which will be 2 weeks tomorrow. Status post port placement 05/23. Chemotherapy started 05/27. Patient was treated with IV fluids and allopurinol while on chemotherapy to prevent tumor lysis syndrome which are now discontinued. Hemoglobin being monitored. Globin dropped to 6.8. Patient being transfused 2 units of proper blood cells today. Continue with neutropenic precautions. (2) Neutropenic fever ICD Code: D70.9 Status: Acute Plan: UA positive for Klebsiella pneumonia. Patient still having low-grade fever with a MAXIMUM TEMPERATURE of 99.7. Diarrhea resolved after Imodium. Patient's C. difficile negative. ID consulted. Antibiotics, antifungals and antivirals as per ID recommendations. The patient is currently on IV vancomycin, IV cefepime, oral azithromycin, oral Flagyl, oral acyclovir and oral fluconazole. (3) Pancytopenia ICD Code: D61.818 Status: Acute Plan: Pancytopenia likely secondary to chemotherapy given for AML treatment. Neutrophil count is 0. Platelet is slightly improved from previous days up to 27. Hemoglobin down to 6.8, being transfused 2 units of proper blood cells. Continue to monitor CBC and follow up oncology recommendations. (4) Symptomatic anemia ICD Code: D64.9 Status: Acute Plan: Patient with tiredness and fatigue. [place] infused 2 units of proper blood cells. Continue to monitor CBC. Monitor if hemoglobin less than 7. (5) UTI (urinary tract infection) ICD Code: N39.0 Status: Acute Plan: Continue antibiotics as above and as per ID recommendations. Urine culture grew capsular pneumonia. (6) GI bleed ICD Code: K92.2 Status: Resolved Plan: GI bleed now resolved. Patient had some episodes of rectal bleeding. (7) Anxiety ICD Code: F41.9 Status: Acute Plan: Continue Valium as needed. (8) Diarrhea ICD Code: R19.7 Status: Resolved Plan: Diarrhea now resolved. Likely secondary to chemotherapy treatment. Much improved after Imodium. Continue Imodium. Abdomen is now mildly distended but is soft. Continue to monitor. CT of the abdomen showed mild fluid in the pelvis but no other major finding. The use of probiotics on neutropenic patient's is relatively contraindicated due to the possibility of the possibility of causing a widespread fungemia. Assessment and Plan DVT prophylaxis: SCDs, no chemoprophylaxis given recent rectal bleed. Discharge Planning Tinea to monitor in the oncology floor. Problem Qualifiers (1) AML (acute myeloid leukemia): Qualified Code: C92.00 - Acute myeloid leukemia not having achieved remission (2) UTI (urinary tract infection): Qualified Code: N30.00 - Acute cystitis without hematuria (3) GI bleed: Qualified Code: K92.2 - Gastrointestinal hemorrhage, unspecified gastrointestinal hemorrhage type (4) Diarrhea: Qualified Code: R19.7 - Diarrhea, unspecified type Stephen Burkett MD Jun 09, 2016 14:51
--- NOTE | 2016-06-09 14:53 | HHI.PR ---
Objective Vitals Vital Signs Date Time Temp Pulse Resp B/P Pulse Ox O2 Delivery O2 Flow Rate FiO2 06/09/16 12:48 98.8 108 16 123/65 97 06/09/16 12:22 16 06/09/16 11:00 99.3 105 20 139/61 97 06/09/16 09:45 16 06/09/16 07:30 99.1 87 20 144/56 98 06/09/16 04:00 99.7 97 18 110/63 97 06/09/16 00:00 99.5 85 17 120/59 96 06/08/16 20:00 98.3 81 18 150/68 96 06/08/16 16:00 98.4 88 18 125/84 95 I/O 06/08/16 06/08/16 06/08/16 06/09/16 06/09/16 06/09/16 07:00 15:00 23:00 07:00 15:00 23:00 Intake Total 2510 ml 600 ml 240 ml 240 ml Balance 2510 ml 600 ml 240 ml 240 ml Intake Oral 960 ml 600 ml 240 ml 240 ml IV Total 1550 ml # Voids 3 8 3 1 # Bowel Movements 1 0 0 3 Result Diagram: 06/09/1631406/09/16314 Procedures EGD/ colonoscopy Bone marrow biopsy A/P Problem List: (1) Pancytopenia ICD Code: D61.818 Status: Acute (2) GI bleed ICD Code: K92.2 Status: Acute (3) AML (acute myeloid leukemia) ICD Code: C92.00 Status: Acute (4) Symptomatic anemia ICD Code: D64.9 Status: Acute (5) UTI (urinary tract infection) ICD Code: N39.0 Status: Acute Problem Qualifiers (1) GI bleed: Qualified Code: K92.2 - Gastrointestinal hemorrhage, unspecified gastrointestinal hemorrhage type (2) AML (acute myeloid leukemia): Qualified Code: C92.00 - Acute myeloid leukemia not having achieved remission Stephen Burkett MD Jun 09, 2016 14:52
[2016-06-09] MEDS: VANCOMYCIN INJ 1,250 MG in SODIUM CHLOR 0.9% 250 ML INJ 250 ML IV SCH (14:58)
[2016-06-09] MEDS: SODIUM CHLOR 0.9% 1000 ML INJ 1,000 ML IV SCH ×2 (14:58→22:35)
[2016-06-10] VITALS: BP 122/59; PULSE 112; RESP 18; TEMP 99.9; O2SAT 94
[2016-06-10] MEDS: VANCOMYCIN INJ 1,250 MG in SODIUM CHLOR 0.9% 250 ML INJ 250 ML IV SCH (01:03)
[2016-06-10] MEDS: LACTATED RINGER'S 1000 ML IV SCH (01:03)
[2016-06-10] MEDS: CEFEPIME INJ 2,000 MG in SODIUM CHLORIDE 0.9% INJ 100 ML IV SCH ×3 (01:04→18:17)
[2016-06-10] MEDS: MORPHINE SULFATE 4 MG/ML INJ IV PUSH PRN ×2 (02:12→20:40)
[2016-06-10] MEDS: ONDANSETRON HCL 4 MG/2 ML VIAL IV PRN ×3 (02:16→19:00)
[2016-06-10 04:00] VITALS: BP 122/59; PULSE 97; RESP 18; TEMP 100.6; O2SAT 94
[2016-06-10] MEDS: ACETAMINOPHEN 325 MG TAB PO PRN ×2 (04:11→18:58)
[2016-06-10 04:15] LABS: EOSINOPHIL % 0.1 % (0.0-4.0); HEMATOCRIT 27.1 % (35.0-46.0); LYMPH % 97.6 % (9.0-44.0); LYMPHOCYTE # 0.5 TH/MM3 (1.0-4.8); MEAN CELL VOLUME 89.8 FL (80.0-100.0); MEAN CORPUSCULAR HEMOGLOBIN 31.5 PG (27.0-34.0); MONO % 2.1 % (0.0-8.0); NEUT % 0.2 % (16.0-70.0); RED BLOOD COUNT 3.02 MIL/MM3 (4.00-5.30); RED CELL DISTRIBUTION WIDTH 13.9 % (11.6-17.2); WHITE BLOOD COUNT 0.5 TH/MM3 (4.0-11.0)
[2016-06-10 04:18] LABS: HEMO FLAGS AUTO DIFF
[2016-06-10 04:24] LABS: PLATELET COUNT 16 TH/MM3 (150-450)
[2016-06-10 04:47] LABS: ALKALINE PHOSPHATASE 42 U/L (45-117); ALT (GPT) 12 U/L (10-53); ANION GAP 8 MEQ/L (5-15); AST (GOT) 8 U/L (15-37); BICARBONATE 25.5 MEQ/L (21.0-32.0); BLOOD UREA NITROGEN 9 MG/DL (7-18); CHLORIDE 106 MEQ/L (98-107); GLOMERULAR FILTRATION RATE 120 ML/MIN (>89); MAGNESIUM 1.8 MG/DL (1.5-2.5); POTASSIUM 3.7 MEQ/L (3.5-5.1); SODIUM (NA) 139 MEQ/L (136-145); TOTAL BILIRUBIN ADULT 0.6 MG/DL (0.2-1.0)
[2016-06-10] MEDS: ACYCLOVIR 200 MG CAP PO SCH ×3 (05:13→20:41)
[2016-06-10] MEDS: metroNIDAZOLE 500 MG TAB PO SCH ×3 (05:13→20:41)
[2016-06-10] MEDS: LEVOTHYROXINE SODIUM 25 MCG TAB PO SCH (05:13)
[2016-06-10 06:59] LABS: WBC DIFF SAMPLE 25
[2016-06-10 07:01] LABS: PLATELET ESTIMATE SMEAR RARE (NORMAL); PLATELET MORPHOLOGY NORMAL (NORMAL); SCAN/DIFF FINAL DIFF MANUAL
[2016-06-10 07:14] LABS: BLOOD, URINE NEG (NEG); GLUCOSE,URINE NEG (NEG); KETONE, URINE NEG (NEG); MUCUS URINE FEW /lpf (OCC); NITRITE,URINE NEG (NEG); PH, URINE 6.5 (5.0-8.5); SQUAMOUS EPITHELIAL CELL URINE <1 /hpf (0-5); URINE COLOR YELLOW (YELLW/STRAW)
[2016-06-10 07:20] LABS: COMMENT (UR) CULT NOT INDICATED; CULTURE IF INDICATED CULT NOT INDICATED
[2016-06-10] MEDS: AZITHROMYCIN 250 MG TAB PO SCH (09:21)
[2016-06-10] MEDS: LOPERAMIDE HCL 2 MG CAP PO PRN ×2 (09:21→23:01)
[2016-06-10] MEDS: FUROSEMIDE 20 MG TAB PO SCH (09:21)
[2016-06-10] MEDS: POTASSIUM CHLORIDE 10 MEQ CAP PO SCH (09:22)
[2016-06-10] MEDS: SODIUM CHLORIDE 0.9% FLUSH 5 ML FLUSH IVF SCH (09:22)
[2016-06-10] MEDS: FLUCONAZOLE 200 MG TAB PO SCH (09:22)
[2016-06-10] MEDS: FAMOTIDINE 20 MG TAB PO SCH ×2 (09:22→20:40)
[2016-06-10] MEDS: SODIUM CHLORIDE 0.9% FLUSH 5 ML FLUSH IV SCH ×2 (09:22→20:41)
[2016-06-10] MEDS: GABAPENTIN 300 MG CAP PO SCH ×3 (09:22→18:16)
[2016-06-10] MEDS: DIAZEPAM 10 MG TAB PO SCH ×2 (09:22→20:41)
[2016-06-10] MEDS: ALLOPURINOL 300 MG TAB PO SCH (09:22)
[2016-06-10] MEDS: PANTOPRAZOLE SOD 40 MG DELAYED RELEASE TAB PO SCH (09:22)
[2016-06-10] MEDS ORDERED: ACETAMINOPHEN 325 MG TAB PO PRN (09:30)
[2016-06-10] MEDS ORDERED: diphenhydrAMINE HCL 25 MG CAP PO PRN (09:30)
[2016-06-10] MEDS ORDERED: SODIUM CHLOR 0.9% 250 ML INJ 250 ML IV ONE (09:30)
[2016-06-10] MEDS: NYSTAT/DIPHENHY/LIDO MOUTHWASH (Adult) 120ML SWISH-SWAL SCH ×4 (09:32→20:45)
[2016-06-10 10:54] VITALS: BP 126/60; PULSE 81; RESP 16; TEMP 99.2; O2SAT 94
--- NOTE | 2016-06-10 12:01 | PD.ONC.PN ---
Subjective Subjective Remarks Tmax 100.6 overnight. Patient feeling weak and lightheaded today. She feel somewhat nauseated when she moves too quickly. No vomiting. She ate breakfast and tolerated it. She has a headache, frontal to superior in location and throbbing in quality. Objective Data Date Time Temp Pulse Resp B/P Pulse Ox O2 Delivery O2 Flow Rate FiO2 06/10/16 10:59 16 06/10/16 10:54 99.2 81 16 126/60 94 06/10/16 04:00 100.6 97 18 122/59 94 06/10/16 00:00 99.9 112 18 122/59 94 06/09/16 20:00 99.7 100 18 139/63 96 06/09/16 15:31 97.3 76 16 128/58 96 06/09/16 15:10 98.7 77 16 120/60 95 06/09/16 12:48 98.8 108 16 123/65 97 06/09/16 12:22 16 06/10/16 06/10/16 06/10/16 07:00 15:00 23:00 Intake Total 360 ml Balance 360 ml Result Diagram: 06/10/16 0035 06/10/16 0035 Laboratory Results Laboratory Tests Test 06/10/16 06/10/16 06/10/16 00:35 05:25 09:44 White Blood Count 0.5 TH/MM3 Red Blood Count 3.02 MIL/MM3 Hemoglobin 9.5 GM/DL Hematocrit 27.1 % Mean Corpuscular Volume 89.8 FL Mean Corpuscular Hemoglobin 31.5 PG Mean Corpuscular Hemoglobin 35.0 % Concent Red Cell Distribution Width 13.9 % Platelet Count 16 TH/MM3 Mean Platelet Volume 7.6 FL Neutrophils (%) (Auto) 0.2 % Lymphocytes (%) (Auto) 97.6 % Monocytes (%) (Auto) 2.1 % Eosinophils (%) (Auto) 0.1 % Basophils (%) (Auto) 0.0 % Neutrophils # (Auto) 0.0 TH/MM3 Lymphocytes # (Auto) 0.5 TH/MM3 Monocytes # (Auto) 0.0 TH/MM3 Eosinophils # (Auto) 0.0 TH/MM3 Basophils # (Auto) 0.0 TH/MM3 CBC Comment AUTO DIFF Differential Total Cells 25 Counted Lymphocytes % 100 % Neutrophils # (Manual) 0.0 TH/MM3 Differential Comment FINAL DIFF MANUAL Platelet Estimate RARE Platelet Morphology Comment NORMAL Red Cell Morphology Comment NORMAL Sodium Level 139 MEQ/L Potassium Level 3.7 MEQ/L Chloride Level 106 MEQ/L Carbon Dioxide Level 25.5 MEQ/L Anion Gap 8 MEQ/L Blood Urea Nitrogen 9 MG/DL Creatinine 0.52 MG/DL Estimat Glomerular Filtration 120 ML/MIN Rate Random Glucose 114 MG/DL Calcium Level 7.8 MG/DL Phosphorus Level 1.6 MG/DL Magnesium Level 1.8 MG/DL Total Bilirubin 0.6 MG/DL Aspartate Amino Transf 8 U/L (AST/SGOT) Alanine Aminotransferase 12 U/L (ALT/SGPT) Alkaline Phosphatase 42 U/L Total Protein 6.0 GM/DL Albumin 2.4 GM/DL Urine Color YELLOW Urine Turbidity CLEAR Urine pH 6.5 Urine Specific [place] 1.011 Urine Protein NEG mg/dL Urine Glucose (UA) NEG mg/dL Urine Ketones NEG mg/dL Urine Occult Blood NEG Urine Nitrite NEG Urine Bilirubin NEG Urine Urobilinogen LESS THAN 2.0 MG/DL Urine Leukocyte Esterase NEG Urine RBC 1 /hpf Urine WBC 1 /hpf Urine Squamous Epithelial <1 /hpf Cells Urine Amorphous Sediment RARE Urine Mucus FEW /lpf Microscopic Urinalysis Comment CULT NOT INDICATED Blood Bank Comment Culture Results Microbiology Date/Time Procedure Status Source Growth 06/10/16 04:10 Aerobic Blood Culture Received Blood Line Pending 06/10/16 04:10 Anaerobic Blood Culture Received Blood Line Pending 06/10/16 05:42 Aerobic Blood Culture Received Blood Peripheral Pending 06/10/16 05:42 Anaerobic Blood Culture Received Blood Peripheral Pending Administered Medications Medications (Trade) Dose Ordered Sig/Prashant Route PRN Reason Start Time Stop Time Status Last Admin Dose Admin Carisoprodol (Soma) 350 mg TID PRN PO PAIN 05/16/16 17:30 05/27/16 09:17 Furosemide (Lasix) 20 mg DAILY PO 05/17/16 09:00 06/10/16 09:21 Gabapentin (Neurontin) 300 mg TID PO 05/16/16 18:00 06/10/16 09:22 Levothyroxine Sodium (Synthroid) 25 mcg DAILY@06 PO 05/17/16 06:00 06/10/16 05:13 Potassium Chloride (KCl) 10 meq DAILY PO 05/17/16 09:00 06/10/16 09:22 Famotidine (Pepcid) 20 mg BID PO 05/16/16 21:00 06/10/16 09:22 IV Flush (NS Flush) 2 ml BID IV 05/16/16 21:00 06/08/16 21:00 Ondansetron HCl (Zofran Inj) 4 mg Q6H PRN IV NAUSEA 05/16/16 17:45 06/10/16 09:21 Acetaminophen (Tylenol) 650 mg Q6HR PRN PO headache 05/17/16 06:30 06/10/16 04:11 Oxycodone/ Acetaminophen (Percocet 5-325 Mg) 1 tab Q4H PRN PO pain 1-5 05/20/16 10:00 06/06/16 23:32 Pantoprazole Sodium (Protonix) 40 mg DAILY PO 05/22/16 09:00 06/10/16 09:22 Oxycodone HCl (Roxicodone) 10 mg Q4H PRN PO pain 6-10 05/21/16 16:00 06/10/16 09:32 IV Flush (NS Flush) DAILY IVF 05/24/16 09:00 06/10/16 09:22 Heparin Sodium (Porcine) (Heparin Central Flush) DAILY IVF 05/24/16 09:00 06/10/16 09:22 IV Flush (NS Flush) UNSCH PRN IVF SEE PROTOCOL 05/23/16 15:30 06/04/16 04:31 Heparin Sodium (Porcine) (Heparin Central Flush) UNSCH PRN IVF SEE PROTOCOL 05/23/16 15:30 06/02/16 04:01 Docusate Sodium (Colace) 100 mg BID PO 05/24/16 11:00 Hold 06/05/16 07:58 Polyethylene Glycol 17 gm 17 gm DAILY PO 05/25/16 14:30 Hold 06/04/16 08:27 Sodium Chloride (NS 1000 ml Inj) 1,000 ml @ 100 mls/hr Q10H IV 05/26/16 09:30 06/09/16 22:35 Allopurinol (Zyloprim) 300 mg DAILY PO 05/26/16 09:30 06/10/16 09:22 Morphine Sulfate (Morphine Inj) 2 mg Q2HR PRN IV PUSH SEVERE BREAKTHROUGH PAIN 05/27/16 08:45 06/10/16 02:12 Lactulose (Lactulose Liq) 30 ml DAILY PO 05/27/16 09:00 Hold 06/05/16 07:57 Diazepam (Valium) 10 mg Q12HR PO 05/28/16 09:00 06/10/16 09:22 Temazepam (Restoril) 15 mg HS PRN PO SLEEP 05/28/16 08:00 06/01/16 22:23 Multi-Ingredient Mouthwash/Gargle (Magic Mouthwash Adult Liq) 5 ml QID SWISH-SWAL 06/03/16 09:00 06/09/16 21:49 Acyclovir (Zovirax) 400 mg Q8HR PO 06/03/16 14:00 06/10/16 05:13 Fluconazole 200 mg 200 mg DAILY PO 06/03/16 09:00 06/10/16 09:22 Cefepime HCl/ Sodium Chloride (Maxipime Inj/NS Inj) 100 ml @ 200 mls/hr Q8H IV 06/05/16 18:00 06/10/16 09:21 Azithromycin (Zithromax) 500 mg DAILY PO 06/05/16 14:00 06/10/16 09:21 Metronidazole 500 mg 500 mg Q8HR PO 06/05/16 14:00 06/10/16 05:13 Vancomycin HCl/ Sodium Chloride (Vancomycin Inj/ NS 250 ml Inj) 262.5 ml @ 250 mls/hr Q12H IV 06/06/16 00:00 06/10/16 01:03 Loperamide HCl (Imodium) 2 mg UNSCH PRN PO DIARRHEA 06/09/16 11:15 06/10/16 09:21 Acetaminophen (Tylenol) 650 mg Q4H PRN PO SEE LABEL COMMENTS 06/10/16 09:30 06/10/16 13:31 06/10/16 10:57 Diphenhydramine HCl (Benadryl) 25 mg Q4H PRN PO SEE LABEL COMMENTS 06/10/16 09:30 06/10/16 13:31 06/10/16 10:57 Objective Remarks GENERAL: Middle aged female, lying in bed in [facility]. She is sleeping in a dark room on approach. She is easily awakened. SKIN: Warm and dry. Donaldson catheter, site clean. HEAD: Normocephalic. EYES: No injection or drainage. NECK: Supple, trachea midline. CARDIOVASCULAR: Regular rate and rhythm. RESPIRATORY: Breath sounds equal bilaterally. No accessory muscle use. GASTROINTESTINAL: Abdomen soft, non-tender. no masses. + pain pump palpated. EXTREMITIES: No cyanosis. no edema. NEUROLOGICAL: awake and alert, normal speech. oriented and appropriate. moving all extremities. facial movements symmetric. Assessment/Plan Problem List: (1) AML (acute myeloid leukemia) Status: Acute Plan: 06/10/16: D15. 1 unit plts. dizzy w/ headache. CT brain pending 06/09/16:D14. 2 units pRBC today. 06/08/16: No issues overnight. Plt's are low at 11,000. Likely will drop again tomorrow, so we will transfuse x1 dose today. No bleeding. 06/07/16: Afebrile. Neutropenic precautions continue. 06/06/16: afebrile overnight. continue abx per ID. pain pump refilled. 06/05/16: spiked fever overnight. started on Cefepime. Levaquin stopped. ID consulted. CT ab/pelvis negative 06/04/16: D9. 1 unit plt 06/03/16: D8 chemo finishes late tonight. started on acyclovir/diflucan/levaquin for prophylaxis. 06/01/16: D6. nauseated. otherwise no events. continue chemo. 05/31/16:D5. no events. 05/30/16: D4 chemotherapy. no transfusion today. 05/29/16: D3 chemotherapy. Tolerated well Blood counts trending lower. Transfuse PRBC 2U. CSF cytology negative. 05/28/16: Tolerated chemo well, no significant side effect. Blood counts started to trend down. 05/27/16: D1. Albina-C + Idarubicin. AML w/ intermediate risk cytogenetics. FLT3 is pending. (2) Pancytopenia Status: Acute Plan: transfuse for platelets less than 10k and a Hgb of less than 7. (3) Rectal bleed Status: Resolved Plan: -- Controlled. No new bleeding. EGD/colonoscopy on 05/20/15 showed gastritis, irregular Z line and rectal nodule. Path report negative for malignancy. -- Had hemorrhoid surgery three weeks prior to admission with Dr. Schwartz. (4) presence of pain pump Status: Chronic Plan: --patient with intrathecal pain pump --managed by Dr. Omer outpatient --pain pump refilled on 06/06/16 Assessment 61 y/o female with pancytopenia, suspected AML Plan 1. 1 unit plt 2. continue abx 3. imodium PRN diarrhea 4. ct brain Attending Statement The exam, history, and the medical decision-making described in the above note were completed with the assistance of the mid-level provider. I reviewed and agree with the findings presented. I attest that I had a [id number] encounter with the patient on the same day, and personally performed and documented my assessment and findings in the medical record. Had fever. Feeling tired. + headache. Will get CT head. Transfuse platelet. Continue to monitor CBC. Bone marrow biopsy later this week. Problem Qualifiers (1) AML (acute myeloid leukemia): Qualified Code: C92.00 - Acute myeloid leukemia not having achieved remission Radha Lawrence Jun 10, 2016 12:01 Ryan Tripp MD Jun 10, 2016 17:45
[2016-06-10 12:22] VITALS: BP 123/58; PULSE 82; RESP 16; TEMP 99.9; O2SAT 98
[2016-06-10] MEDS: MAGNESIUM SULFATE 1 GM PREMIX 100 ML IV SCH ×2 (12:25→15:35)
--- NOTE | 2016-06-10 15:08 | HHI.IDPN ---
Subjective Subjective Remarks Notes reviewed Has low grade temps Remains neutropenic Still with loose stool C diff negative CT A/P negative C/O frontal BOOKER, sharp, started today No photophobia, no neck pain Cough is better No rash/itching Antibiotics Vancomycin Cefepime Flagyl Zithromax Diflucan Lines Donaldson R Past Medical History Hypothyroidism GERD Chronic back pain Peripheral edema Hemorrhoids Past Surgical History Back and neck surgery Rotator cuff surgery Pain pump placement on the right lower abdomen Hemorrhoidectomy Allergies: Coded Allergies: No Known Allergies (Verified , 05/16/16) Objective . Vital Signs Date Time Temp Pulse Resp B/P Pulse Ox O2 Delivery O2 Flow Rate FiO2 06/10/16 12:22 99.9 82 16 123/58 98 06/10/16 10:59 16 06/10/16 10:54 99.2 81 16 126/60 94 06/10/16 04:00 100.6 97 18 122/59 94 06/10/16 00:00 99.9 112 18 122/59 94 06/09/16 20:00 99.7 100 18 139/63 96 06/09/16 15:31 97.3 76 16 128/58 96 06/09/16 15:10 98.7 77 16 120/60 95 06/09/16 06/09/16 06/10/16 15:00 23:00 07:00 Intake Total 480 ml Balance 480 ml Intake Oral 480 ml # Voids 4 # Bowel Movements 4 . Laboratory Tests Test 06/09/16 06/10/16 03:15 00:35 White Blood Count 0.4 TH/MM3 0.5 TH/MM3 Red Blood Count 2.09 MIL/MM3 3.02 MIL/MM3 Hemoglobin 6.8 GM/DL 9.5 GM/DL Hematocrit 19.4 % 27.1 % Mean Corpuscular Volume 92.7 FL 89.8 FL Mean Corpuscular Hemoglobin 32.4 PG 31.5 PG Mean Corpuscular Hemoglobin 35.0 % 35.0 % Concent Red Cell Distribution Width 13.8 % 13.9 % Platelet Count 27 TH/MM3 16 TH/MM3 Mean Platelet Volume 7.8 FL 7.6 FL Neutrophils (%) (Auto) % 0.2 % Lymphocytes (%) (Auto) % 97.6 % Monocytes (%) (Auto) % 2.1 % Eosinophils (%) (Auto) % 0.1 % Basophils (%) (Auto) % 0.0 % Neutrophils # (Auto) TH/MM3 0.0 TH/MM3 Lymphocytes # (Auto) TH/MM3 0.5 TH/MM3 Monocytes # (Auto) TH/MM3 0.0 TH/MM3 Eosinophils # (Auto) TH/MM3 0.0 TH/MM3 Basophils # (Auto) TH/MM3 0.0 TH/MM3 CBC Comment AUTO DIFF AUTO DIFF Differential Total Cells 50 25 Counted Lymphocytes % 98 % 100 % Monocytes % 2 % Neutrophils # (Manual) 0.0 TH/MM3 0.0 TH/MM3 Differential Comment FINAL DIFF FINAL DIFF MANUAL MANUAL Platelet Estimate LOW RARE Platelet Morphology Comment NORMAL NORMAL Red Cell Morphology Comment NORMAL NORMAL Laboratory Tests Test 06/09/16 06/10/16 03:15 00:35 Sodium Level 142 MEQ/L 139 MEQ/L Potassium Level 3.3 MEQ/L 3.7 MEQ/L Chloride Level 113 MEQ/L 106 MEQ/L Carbon Dioxide Level 23.4 MEQ/L 25.5 MEQ/L Anion Gap 6 MEQ/L 8 MEQ/L Blood Urea Nitrogen 9 MG/DL 9 MG/DL Creatinine 0.63 MG/DL 0.52 MG/DL Estimat Glomerular Filtration 96 ML/MIN 120 ML/MIN Rate Random Glucose 101 MG/DL 114 MG/DL Calcium Level 6.8 MG/DL 7.8 MG/DL Protein Corrected Calcium 7.6 MG/DL Magnesium Level 1.7 MG/DL 1.8 MG/DL Total Protein 5.6 GM/DL 6.0 GM/DL Phosphorus Level 1.6 MG/DL Total Bilirubin 0.6 MG/DL Aspartate Amino Transf 8 U/L (AST/SGOT) Alanine Aminotransferase 12 U/L (ALT/SGPT) Alkaline Phosphatase 42 U/L Albumin 2.4 GM/DL Microbiology Date/Time Procedure Status Source Growth 06/10/16 04:10 Aerobic Blood Culture Received Blood Line Pending 06/10/16 04:10 Anaerobic Blood Culture Received Blood Line Pending 06/10/16 05:42 Aerobic Blood Culture Received Blood Peripheral Pending 06/10/16 05:42 Anaerobic Blood Culture Received Blood Peripheral Pending Imaging Abdomen/Pelvis CT 06/05/16 0000 Signed Impressions: Service Date/Time: May 22:13 - CONCLUSION: Minimal fluid in the pelvis, otherwise unremarkable. Cynthia Guardado MD Chest X-Ray 06/04/16 0000 Signed Impressions: Service Date/Time: Saturday, June 04, 2016 21:23 - CONCLUSION: No acute disease. Kilo Cotto MD Lumbar Puncture Fluoroscopy 05/23/16 0000 Signed Impressions: Service Date/Time: Monday, May 23, 2016 14:16 - CONCLUSION: Uncomplicated fluoroscopically guided lumbar puncture. Bubba Cherry MD Catheter Placement X-Ray 05/23/16 0000 Signed Impressions: Service Date/Time: Monday, May 23, 2016 14:16 - CONCLUSION: Uncomplicated Donaldson catheter placement as above. Bubba Cherry MD Bone Biopsy CT 05/20/16 0846 Signed Impressions: Service Date/Time: Friday, May 20, 2016 09:13 - CONCLUSION: 1. Uncomplicated CT guided bone marrow aspirate. 2. Uncomplicated CT guided bone marrow biopsy. Yazan Saucedo MD Head CT 05/20/16 0000 Signed Impressions: Service Date/Time: Friday, May 20, 2016 15:16 - CONCLUSION: Normal examination for a patient of this age. No significant change has occurred. Emilio Thomas MD Chest CT 05/17/16 0000 Signed Impressions: Service Date/Time: Tuesday, May 17, 2016 15:14 - CONCLUSION: 1. 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 There are trace to very small bilateral pleural effusions and mild cardiomegaly noted. 2. No lobar consolidation. 3. Upper limits of normal to mildly enlarged mediastinal and bilateral hilar lymph nodes, nonspecific but presumably reactive. Bravo Mendez MD Physical Exam GENERAL: awake and alert, not in any respiratory distress. SKIN: Warm and dry. No generalized rash, no ecchymosis or embolic lesions noted. HEENT: Pale conjunctivae, no petechia or hemorrhage. No scleral icterus. Moist oral mucosa. Throat without erythema, or exudate. NECK: Trachea midline. No JVD or lymphadenopathy. Supple, nontender, no meningeal signs. CARDIOVASCULAR: Regular rate and rhythm without murmurs, gallops, or rubs. RESPIRATORY: Clear to auscultation. Breath sounds equal bilaterally. No wheezes , rales, or rhonchi. Donaldson catheter is in the right upper chest, the site is dry with no purulence or redness. The tunnel portion of the catheter has no tenderness swelling or erythema. GASTROINTESTINAL: Abdomen soft, nondistended, bowel sounds are present, no tenderness. No rebound or guarding. She has her pain pump RLQ no evidence of infection MUSCULOSKELETAL: Extremities without clubbing, cyanosis, or edema. No calf tenderness. NEURO: Non focal PSYCH: Normal affect, calm and cooperative LINE: Donaldson cath with no evidence of infection Assessment & Plan Remarks IMPRESSION Neutropenic fever, patient with newly Dx AML, on induction chemotherapy - has had mucositis - has cough, CXR negative - UA ok - has diarrhea, R/O C diff - has line AML, on induction chemo Diarrhea, C diff negative Headache, new RECOMMENDATION Continue cefepime Continue acyclovir for prophylaxis Stop Zithromax Continue Flagyl Continue vancomycin Change Diflucan to Micafungin Monitor temps Follow cultures Monitor progress To get CT head D/W H Diane Cueva MD Jun 10, 2016 15:08
--- NOTE | 2016-06-10 15:35 | RADRPT ---
EXAM DATE/TIME: 06/10/2016 14:56 [facility] COMPARISON: CT BRAIN W/O CONTRAST, May 20, 2016, 15:16. INDICATIONS : Cephalgia and dizziness today; history of leukemia. RADIATION DOSE: 56.35 CTDIvol (mGy) MEDICAL HISTORY : Leukemia. SURGICAL HISTORY : None. ENCOUNTER: Initial ACUITY: 1 day PAIN SCALE: 5/10 LOCATION: cranial TECHNIQUE: Multiple contiguous axial images were obtained of the head. Using automated exposure control and adj ustment of the mA and/or kV according to patient size, radiation dose was kept as low as reasonably a chievable to obtain optimal diagnostic quality images. FINDINGS: CEREBRUM: The ventricles are normal . No evidence of midline shift, mass lesion, hemorrhage or acute infarctio n. No extra-axial fluid collections are seen. POSTERIOR FOSSA: The cerebellum and brainstem demonstrate no abnormality. The 4th ventricle is midline. The cerebell opontine angle is unremarkable. EXTRACRANIAL: Visualized sinuses are clear. SKULL: The calvaria is intact. No evidence of skull fracture. CONCLUSION: Stable noncontrast head CT. No acute intracranial abnormality is identified. Bravo Jackman MD on June 10, 2016 at 15:32 Board Certified Radiologist. This report was verified electronically.
--- NOTE | 2016-06-10 16:07 | HHI.PR ---
Subjective Remarks Patient c/o dizziness this am also feels extreme weakness denies diarrhea, cp, sob had fever with a T max of 100.6 Objective Vitals Vital Signs Date Time Temp Pulse Resp B/P Pulse Ox O2 Delivery O2 Flow Rate FiO2 06/10/16 12:22 99.9 82 16 123/58 98 06/10/16 10:59 16 06/10/16 10:54 99.2 81 16 126/60 94 06/10/16 04:00 100.6 97 18 122/59 94 06/10/16 00:00 99.9 112 18 122/59 94 06/09/16 20:00 99.7 100 18 139/63 96 I/O 06/09/16 06/09/16 06/09/16 06/10/16 06/10/16 06/10/16 07:00 15:00 23:00 07:00 15:00 23:00 Intake Total 240 ml 480 ml 600 ml 856 ml Balance 240 ml 480 ml 600 ml 856 ml Intake Oral 240 ml 480 ml 600 ml IV Total 856 ml # Voids 1 4 2 # Bowel Movements 3 4 Result Diagram: 06/10/16 0035 06/10/16 0035 Imaging Last Impressions Head CT 06/10/16 0000 Signed Impressions: Service Date/Time: Friday, June 10, 2016 14:56 - CONCLUSION: Stable noncontrast head CT. No acute intracranial abnormality is identified. Bravo Jackman MD Abdomen/Pelvis CT 06/05/16 0000 Signed Impressions: Service Date/Time: May 22:13 - CONCLUSION: Minimal fluid in the pelvis, otherwise unremarkable. Cynthia Guardado MD Chest X-Ray 06/04/16 0000 Signed Impressions: Service Date/Time: Saturday, June 04, 2016 21:23 - CONCLUSION: No acute disease. Kilo Cotto MD Lumbar Puncture Fluoroscopy 05/23/16 0000 Signed Impressions: Service Date/Time: Monday, May 23, 2016 14:16 - CONCLUSION: Uncomplicated fluoroscopically guided lumbar puncture. Bubba Cherry MD Catheter Placement X-Ray 05/23/16 0000 Signed Impressions: Service Date/Time: Monday, May 23, 2016 14:16 - CONCLUSION: Uncomplicated Donaldson catheter placement as above. Bubba Cherry MD Bone Biopsy CT 05/20/16 0846 Signed Impressions: Service Date/Time: Friday, May 20, 2016 09:13 - CONCLUSION: 1. Uncomplicated CT guided bone marrow aspirate. 2. Uncomplicated CT guided bone marrow biopsy. Yazan Saucedo MD Chest CT 05/17/16 0000 Signed Impressions: Service Date/Time: Tuesday, May 17, 2016 15:14 - CONCLUSION: 1. 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 There are trace to very small bilateral pleural effusions and mild cardiomegaly noted. 2. No lobar consolidation. 3. Upper limits of normal to mildly enlarged mediastinal and bilateral hilar lymph nodes, nonspecific but presumably reactive. Bravo Mendez MD Objective Remarks GENERAL: This is a well-nourished, well-developed patient, in no apparent distress. HEENT: NC, AT. Jaw pain upon palpation. Pale conjunctiva CARDIOVASCULAR: Regular rate and rhythm. Grade 2 systolic murmur appreciated. RESPIRATORY: CTAB. No W/R/R. GASTROINTESTINAL: Abdomen soft, nontender, mildly distended with hypoactive bowel sounds. Pain pump in RLQ. MUSCULOSKELETAL: Extremities without clubbing, cyanosis, or edema. NEURO: Alert & Oriented x4 to person, place, time, situation. Moves all ext x4. Normal finger to nose test. EOMI. PSYCH: Mood and affect appropriate. Procedures EGD/ colonoscopy Bone marrow biopsy Medications and IVs Current Medications Medications (Trade) Dose Ordered Sig/Prashant Route Start Time Stop Time Status Last Admin (Soma) 350 mg TID PRN PO 05/16/16 17:30 05/27/16 09:17 (Lasix) 20 mg DAILY PO 05/17/16 09:00 06/10/16 09:21 (Neurontin) 300 mg TID PO 05/16/16 18:00 06/10/16 12:24 (Synthroid) 25 mcg DAILY@06 PO 05/17/16 06:00 06/10/16 05:13 (KCl) 10 meq DAILY PO 05/17/16 09:00 06/10/16 09:22 (Pepcid) 20 mg BID PO 05/16/16 21:00 06/10/16 09:22 (NS Flush) 2 ml UNSCH PRN IV 05/16/16 17:45 (NS Flush) 2 ml BID IV 05/16/16 21:00 06/08/16 21:00 (Zofran Inj) 4 mg Q6H PRN IV 05/16/16 17:45 06/10/16 09:21 Acetaminophen 650 mg 650 mg Q6HR PRN PO 05/17/16 06:30 06/10/16 04:11 (Lr 1000 ml Inj) 1,000 ml @ 30 mls/hr Q24H IV 05/20/16 01:15 (Percocet 5-325 Mg) 1 tab Q4H PRN PO 05/20/16 10:00 06/06/16 23:32 (Canasa Supp) 1,000 mg HS RECTAL 05/20/16 21:00 Hold (Protonix) 40 mg DAILY PO 05/22/16 09:00 06/10/16 09:22 (Roxicodone) 10 mg Q4H PRN PO 05/21/16 16:00 06/10/16 14:15 (NS Flush) DAILY IVF 05/24/16 09:00 06/10/16 09:22 (Heparin Central Flush) DAILY IVF 05/24/16 09:00 06/10/16 09:22 (NS Flush) UNSCH PRN IVF 05/23/16 15:30 06/04/16 04:31 (Heparin Central Flush) UNSCH PRN IVF 05/23/16 15:30 06/02/16 04:01 (Colace) 100 mg BID PO 05/24/16 11:00 Hold 06/05/16 07:58 (Miralax) 17 gm DAILY PO 05/25/16 14:30 Hold 06/04/16 08:27 Lactic Acid 1 applic 1 applic BID PRN TOPICAL 05/25/16 14:30 (NS 1000 ml Inj) 1,000 ml @ 100 mls/hr Q10H IV 05/26/16 09:30 06/10/16 17:01 (Zyloprim) 300 mg DAILY PO 05/26/16 09:30 06/10/16 09:22 (Morphine Inj) 2 mg Q2HR PRN IV PUSH 05/27/16 08:45 06/10/16 02:12 (Lactulose Liq) 30 ml DAILY PO 05/27/16 09:00 Hold 06/05/16 07:57 (Valium) 10 mg Q12HR PO 05/28/16 09:00 06/10/16 09:22 (Restoril) 15 mg HS PRN PO 05/28/16 08:00 06/01/16 22:23 (Magic Mouthwash Adult Liq) 5 ml QID SWISH-SWAL 06/03/16 09:00 06/09/16 21:49 Acyclovir 400 mg 400 mg Q8HR PO 06/03/16 14:00 06/10/16 14:19 Cefepime HCl 2000 mg/Sodium Chloride 100 ml @ 200 mls/hr Q8H IV 06/05/16 18:00 06/10/16 09:21 (Vancomycin Consult Pharmacy) 0 ml @ 0 mls/hr UNSCH OTHER 06/05/16 13:45 (Flagyl) 500 mg Q8HR PO 06/05/16 14:00 06/10/16 14:18 Patient Own Medication PT OWN MED: HYDROMORPHONE 40 MG/... UNSCH OTHER 06/06/16 11:00 Loperamide HCl 2 mg 2 mg UNSCH PRN PO 06/09/16 11:15 06/10/16 09:21 Sodium Chloride 250 ml @ 15 mls/hr ONCE ONCE IV 06/10/16 09:30 06/11/16 02:09 06/10/16 12:26 Micafungin Sodium 100 mg/Sodium Chloride 100 ml @ 100 mls/hr Q24H IV 06/10/16 16:00 06/10/16 17:01 (Vancomycin Inj/ NS 500 ml Inj) 515 ml @ 250 mls/hr Q12H IV 06/10/16 18:00 Urinary Catheter: No A/P Problem List: (1) AML (acute myeloid leukemia) ICD Code: C92.00 Status: Acute Plan: As shown on bone marrow biopsy. Medical oncology consulted and following. Patient is status post chemotherapy which will be 2 weeks tomorrow. Status post port placement 05/23. Chemotherapy started 05/27. Patient was treated with IV fluids and allopurinol while on chemotherapy to prevent tumor lysis syndrome which are now discontinued. Hemoglobin being monitored. sp transfusion of 2 units of PRBC on 06/09 ---> hemoglobin better 9.5 Tranfuse 1 units of platelets as per oncology - monitor platelets Continue with neutropenic precautions. (2) Neutropenic fever ICD Code: D70.9 Status: Acute Plan: UA positive for Klebsiella pneumonia. Patient still having low-grade fever with a MAXIMUM TEMPERATURE of 99.7. Diarrhea resolved after Imodium. Patient's C. difficile negative. ID consulted. Antibiotics, antifungals and antivirals as per ID recommendations. The patient is currently on IV vancomycin, IV cefepime, oral azithromycin, oral Flagyl, oral acyclovir and oral fluconazole. 06/10 Diflucan changed to Micafungin IV. Zithromax discontinued as per ID. (3) Pancytopenia ICD Code: D61.818 Status: Acute Plan: Pancytopenia likely secondary to chemotherapy given for AML treatment. Neutrophil count is 0. Platelet is slightly improved from previous days up to 27. Hemoglobin down to 6.8, being transfused 2 units of proper blood cells. Continue to monitor CBC and follow up oncology recommendations. (4) Symptomatic anemia ICD Code: D64.9 Status: Acute Plan: Patient with tiredness and fatigue. Sp transfusion of 2 units of PRBC. Continue to monitor CBC. Transfuse as per oncology recommendations. (5) UTI (urinary tract infection) ICD Code: N39.0 Status: Acute Plan: Continue antibiotics as above and as per ID recommendations. Urine culture grew Klebsiella pneumonia. (6) GI bleed ICD Code: K92.2 Status: Resolved Plan: GI bleed now resolved. Patient had some episodes of rectal bleeding. (7) Anxiety ICD Code: F41.9 Status: Acute Plan: Continue Valium as needed. seems stable. (8) Diarrhea ICD Code: R19.7 Status: Resolved Plan: Diarrhea now resolved. Likely secondary to chemotherapy treatment. Much improved after Imodium. Continue Imodium. Abdomen is now mildly distended but is soft. Continue to monitor. CT of the abdomen showed mild fluid in the pelvis but no other major finding. The use of probiotics on neutropenic patient's is relatively contraindicated due to the possibility of the possibility of causing a widespread fungemia. (9) Dizziness ICD Code: R42 Status: Acute Plan: CT head ordered by oncology 06/10 - No acute disease. Assessment and Plan DVT prophylaxis: SCDs, no chemoprophylaxis given recent rectal bleed. Discharge Planning continue to monitor in the oncology floor. Problem Qualifiers (1) AML (acute myeloid leukemia): Qualified Code: C92.00 - Acute myeloid leukemia not having achieved remission (2) UTI (urinary tract infection): Qualified Code: N30.00 - Acute cystitis without hematuria (3) GI bleed: Qualified Code: K92.2 - Gastrointestinal hemorrhage, unspecified gastrointestinal hemorrhage type (4) Diarrhea: Qualified Code: R19.7 - Diarrhea, unspecified type Stephen Burkett MD Jun 10, 2016 16:07
[2016-06-10] MEDS: SODIUM CHLOR 0.9% 1000 ML INJ 1,000 ML IV SCH ×2 (17:01→19:30)
[2016-06-10] MEDS: MICAFUNGIN INJ 100 MG in SODIUM CHLORIDE 0.9% INJ 100 ML IV SCH (17:01)
[2016-06-10] MEDS: VANCOMYCIN INJ 1,500 MG in SODIUM CHLORID 0.9% 500 ML INJ 500 ML IV SCH (18:17)
[2016-06-10 18:49] VITALS: BP 144/63; PULSE 100; RESP 18; TEMP 100.6; O2SAT 97
[2016-06-10 20:00] VITALS: BP 135/65; PULSE 116; RESP 16; TEMP 99.8; O2SAT 98
[2016-06-11] VITALS: BP 123/56; PULSE 79; RESP 16; TEMP 98.8; O2SAT 95
[2016-06-11] MEDS: LACTATED RINGER'S 1000 ML IV SCH (01:15)
[2016-06-11] MEDS: CEFEPIME INJ 2,000 MG in SODIUM CHLORIDE 0.9% INJ 100 ML IV SCH ×3 (02:11→17:40)
[2016-06-11] MEDS: oxyCODONE/ACETAMINOPHEN 5 MG/325 MG TAB PO PRN (02:18)
[2016-06-11 05:28] VITALS: BP 126/56; PULSE 101; RESP 16; TEMP 100.5; O2SAT 94
[2016-06-11] MEDS: metroNIDAZOLE 500 MG TAB PO SCH ×3 (05:36→21:26)
[2016-06-11] MEDS: ACYCLOVIR 200 MG CAP PO SCH ×3 (05:36→21:26)
[2016-06-11] MEDS: LEVOTHYROXINE SODIUM 25 MCG TAB PO SCH (05:36)
[2016-06-11] MEDS: VANCOMYCIN INJ 1,500 MG in SODIUM CHLORID 0.9% 500 ML INJ 500 ML IV SCH ×2 (05:37→18:28)
[2016-06-11] MEDS: SODIUM CHLOR 0.9% 1000 ML INJ 1,000 ML IV SCH ×2 (05:37→15:30)
[2016-06-11 06:44] LABS: HEMATOCRIT 26.1 % (35.0-46.0); MEAN CORPUSCULAR HEMOGLOBIN 31.5 PG (27.0-34.0); MEAN CORPUSCULAR HGB CONC 34.6 % (32.0-36.0); PLATELET COUNT 38 TH/MM3 (150-450); RED BLOOD COUNT 2.87 MIL/MM3 (4.00-5.30); RED CELL DISTRIBUTION WIDTH 13.8 % (11.6-17.2); WHITE BLOOD COUNT 0.5 TH/MM3 (4.0-11.0)
[2016-06-11 07:04] LABS: ANION GAP 5 MEQ/L (5-15); AST (GOT) 6 U/L (15-37); BICARBONATE 26.5 MEQ/L (21.0-32.0); BLOOD UREA NITROGEN 6 MG/DL (7-18); CHLORIDE 108 MEQ/L (98-107); GLOMERULAR FILTRATION RATE 110 ML/MIN (>89); MAGNESIUM 2.3 MG/DL (1.5-2.5); POTASSIUM 3.6 MEQ/L (3.5-5.1); SODIUM (NA) 139 MEQ/L (136-145)
[2016-06-11 07:07] LABS: ALKALINE PHOSPHATASE 47 U/L (45-117); ALT (GPT) 15 U/L (10-53); HEMO FLAGS AUTO DIFF; TOTAL BILIRUBIN ADULT 0.3 MG/DL (0.2-1.0)
[2016-06-11 08:00] VITALS: BP 119/59; PULSE 81; RESP 16; TEMP 99.1; O2SAT 95
[2016-06-11 08:03] LABS: PLATELET ESTIMATE SMEAR LOW (NORMAL); PLATELET MORPHOLOGY NORMAL (NORMAL); SCAN/DIFF FINAL DIFF MANUAL; WBC DIFF SAMPLE 15
[2016-06-11] MEDS: ONDANSETRON HCL 4 MG/2 ML VIAL IV PRN (08:42)
[2016-06-11] MEDS: SODIUM CHLORIDE 0.9% FLUSH 5 ML FLUSH IV SCH ×2 (08:42→21:00)
[2016-06-11] MEDS: POTASSIUM CHLORIDE 10 MEQ CAP PO SCH (08:45)
[2016-06-11] MEDS: FAMOTIDINE 20 MG TAB PO SCH ×2 (08:45→21:27)
[2016-06-11] MEDS: NYSTAT/DIPHENHY/LIDO MOUTHWASH (Adult) 120ML SWISH-SWAL SCH ×4 (08:45→21:00)
[2016-06-11] MEDS: DIAZEPAM 10 MG TAB PO SCH ×2 (08:45→21:27)
[2016-06-11] MEDS: SODIUM CHLORIDE 0.9% FLUSH 5 ML FLUSH IVF SCH (08:45)
[2016-06-11] MEDS: FUROSEMIDE 20 MG TAB PO SCH (08:45)
[2016-06-11] MEDS: PANTOPRAZOLE SOD 40 MG DELAYED RELEASE TAB PO SCH (08:45)
[2016-06-11] MEDS: ALLOPURINOL 300 MG TAB PO SCH (08:45)
[2016-06-11] MEDS: GABAPENTIN 300 MG CAP PO SCH ×3 (08:45→17:39)
--- NOTE | 2016-06-11 08:52 | PD.ONC.PN ---
Subjective Subjective Remarks Tmax 100.5 overnight. Pt states she feels good this am. She is asking about her blood counts. She has no other complaints. Objective Data Date Time Temp Pulse Resp B/P Pulse Ox O2 Delivery O2 Flow Rate FiO2 06/11/16 06:36 18 06/11/16 05:28 100.5 101 16 126/56 94 06/11/16 03:10 16 06/11/16 00:00 98.8 79 16 123/56 95 06/10/16 20:45 18 06/10/16 20:00 99.8 116 16 135/65 98 06/10/16 18:49 100.6 100 18 144/63 97 06/10/16 12:22 99.9 82 16 123/58 98 06/10/16 10:54 99.2 81 16 126/60 94 06/11/16 06/11/16 06/11/16 07:00 15:00 23:00 Intake Total 600 ml Balance 600 ml Result Diagram: 06/11/16 0543 06/11/1643 Laboratory Results Laboratory Tests Test 06/10/16 06/11/16 09:44 05:43 Blood Bank Comment White Blood Count 0.5 TH/MM3 Red Blood Count 2.87 MIL/MM3 Hemoglobin 9.0 GM/DL Hematocrit 26.1 % Mean Corpuscular Volume 91.0 FL Mean Corpuscular Hemoglobin 31.5 PG Mean Corpuscular Hemoglobin 34.6 % Concent Red Cell Distribution Width 13.8 % Platelet Count 38 TH/MM3 Mean Platelet Volume 8.0 FL Neutrophils (%) (Auto) % Lymphocytes (%) (Auto) % Monocytes (%) (Auto) % Eosinophils (%) (Auto) % Basophils (%) (Auto) % Neutrophils # (Auto) TH/MM3 Lymphocytes # (Auto) TH/MM3 Monocytes # (Auto) TH/MM3 Eosinophils # (Auto) TH/MM3 Basophils # (Auto) TH/MM3 CBC Comment AUTO DIFF Differential Total Cells 15 Counted Lymphocytes % 100 % Differential Comment FINAL DIFF MANUAL Platelet Estimate LOW Platelet Morphology Comment NORMAL Sodium Level 139 MEQ/L Potassium Level 3.6 MEQ/L Chloride Level 108 MEQ/L Carbon Dioxide Level 26.5 MEQ/L Anion Gap 5 MEQ/L Blood Urea Nitrogen 6 MG/DL Creatinine 0.56 MG/DL Estimat Glomerular Filtration 110 ML/MIN Rate Random Glucose 107 MG/DL Calcium Level 8.0 MG/DL Phosphorus Level 1.3 MG/DL Magnesium Level 2.3 MG/DL Total Bilirubin 0.3 MG/DL Aspartate Amino Transf 6 U/L (AST/SGOT) Alanine Aminotransferase 15 U/L (ALT/SGPT) Alkaline Phosphatase 47 U/L Total Protein 6.1 GM/DL Albumin 2.6 GM/DL Culture Results Microbiology Date/Time Procedure Status Source Growth 06/10/16 04:10 Aerobic Blood Culture Received Blood Line Pending 06/10/16 04:10 Anaerobic Blood Culture Received Blood Line Pending 06/10/16 05:42 Aerobic Blood Culture Received Blood Peripheral Pending 06/10/16 05:42 Anaerobic Blood Culture Received Blood Peripheral Pending Administered Medications Medications (Trade) Dose Ordered Sig/Prashant Route PRN Reason Start Time Stop Time Status Last Admin Dose Admin Carisoprodol (Soma) 350 mg TID PRN PO PAIN 05/16/16 17:30 05/27/16 09:17 Furosemide (Lasix) 20 mg DAILY PO 05/17/16 09:00 06/10/16 09:21 Gabapentin (Neurontin) 300 mg TID PO 05/16/16 18:00 06/10/16 18:16 Levothyroxine Sodium (Synthroid) 25 mcg DAILY@06 PO 05/17/16 06:00 06/11/16 05:36 Potassium Chloride (KCl) 10 meq DAILY PO 05/17/16 09:00 06/10/16 09:22 Famotidine (Pepcid) 20 mg BID PO 05/16/16 21:00 06/10/16 20:40 IV Flush (NS Flush) 2 ml BID IV 05/16/16 21:00 06/10/16 20:41 Ondansetron HCl (Zofran Inj) 4 mg Q6H PRN IV NAUSEA 05/16/16 17:45 06/10/16 19:00 Acetaminophen (Tylenol) 650 mg Q6HR PRN PO headache 05/17/16 06:30 06/10/16 18:58 Oxycodone/ Acetaminophen (Percocet 5-325 Mg) 1 tab Q4H PRN PO pain 1-5 05/20/16 10:00 06/11/16 02:18 Pantoprazole Sodium (Protonix) 40 mg DAILY PO 05/22/16 09:00 06/10/16 09:22 Oxycodone HCl (Roxicodone) 10 mg Q4H PRN PO pain 6-10 05/21/16 16:00 06/11/16 05:36 IV Flush (NS Flush) DAILY IVF 05/24/16 09:00 06/10/16 09:22 Heparin Sodium (Porcine) (Heparin Central Flush) DAILY IVF 05/24/16 09:00 06/10/16 09:22 IV Flush (NS Flush) UNSCH PRN IVF SEE PROTOCOL 05/23/16 15:30 06/04/16 04:31 Heparin Sodium (Porcine) (Heparin Central Flush) UNSCH PRN IVF SEE PROTOCOL 05/23/16 15:30 06/02/16 04:01 Docusate Sodium (Colace) 100 mg BID PO 05/24/16 11:00 Hold 06/05/16 07:58 Polyethylene Glycol 17 gm 17 gm DAILY PO 05/25/16 14:30 Hold 06/04/16 08:27 Sodium Chloride (NS 1000 ml Inj) 1,000 ml @ 100 mls/hr Q10H IV 05/26/16 09:30 06/11/16 05:37 Allopurinol (Zyloprim) 300 mg DAILY PO 05/26/16 09:30 06/10/16 09:22 Morphine Sulfate (Morphine Inj) 2 mg Q2HR PRN IV PUSH SEVERE BREAKTHROUGH PAIN 05/27/16 08:45 06/10/16 20:40 Lactulose (Lactulose Liq) 30 ml DAILY PO 05/27/16 09:00 Hold 06/05/16 07:57 Diazepam (Valium) 10 mg Q12HR PO 05/28/16 09:00 06/10/16 20:41 Temazepam (Restoril) 15 mg HS PRN PO SLEEP 05/28/16 08:00 06/01/16 22:23 Multi-Ingredient Mouthwash/Gargle (Magic Mouthwash Adult Liq) 5 ml QID SWISH-SWAL 06/03/16 09:00 06/09/16 21:49 Acyclovir 400 mg 400 mg Q8HR PO 06/03/16 14:00 06/11/16 05:36 Cefepime HCl/ Sodium Chloride (Maxipime Inj/NS Inj) 100 ml @ 200 mls/hr Q8H IV 06/05/16 18:00 06/11/16 02:11 Metronidazole (Flagyl) 500 mg Q8HR PO 06/05/16 14:00 06/11/16 05:36 Loperamide HCl 2 mg 2 mg UNSCH PRN PO DIARRHEA 06/09/16 11:15 06/10/16 23:01 Micafungin Sodium 100 mg/Sodium Chloride 100 ml @ 100 mls/hr Q24H IV 06/10/16 16:00 06/10/16 17:01 Vancomycin HCl/ Sodium Chloride (Vancomycin Inj/ NS 500 ml Inj) 515 ml @ 250 mls/hr Q12H IV 06/10/16 18:00 06/11/16 05:37 Objective Remarks GENERAL: Middle aged female, sitting up in bed in no distress. SKIN: Warm and dry. HEAD: Normocephalic. Mild alopecia. EYES: No scleral icterus. No injection or drainage. NECK: Supple, trachea midline. No JVD or lymphadenopathy. CARDIOVASCULAR: +S1/S2, No murmur appreciated. RESPIRATORY: Lungs clear throughout. Breathing easy and unlabored. GASTROINTESTINAL: Abdomen soft, non-tender, nondistended. EXTREMITIES: No edema. NEUROLOGICAL: No obvious focal deficit. Awake, alert, and oriented x3. Assessment/Plan Problem List: (1) AML (acute myeloid leukemia) Status: Acute Plan: 06/11/16: D16. Doing well today. Counts stable. Headache improved; CT brain negative. Will plan for bone marrow biopsy with IR on Thursday. 06/10/16: D15. 1 unit plts. dizzy w/ headache. CT brain pending 06/09/16:D14. 2 units pRBC today. 06/08/16: No issues overnight. Plt's are low at 11,000. Likely will drop again tomorrow, so we will transfuse x1 dose today. No bleeding. 06/07/16: Afebrile. Neutropenic precautions continue. 06/06/16: afebrile overnight. continue abx per ID. pain pump refilled. 06/05/16: spiked fever overnight. started on Cefepime. Levaquin stopped. ID consulted. CT ab/pelvis negative 06/04/16: D9. 1 unit plt 06/03/16: D8 chemo finishes late tonight. started on acyclovir/diflucan/levaquin for prophylaxis. 06/01/16: D6. nauseated. otherwise no events. continue chemo. 05/31/16:D5. no events. 05/30/16: D4 chemotherapy. no transfusion today. 05/29/16: D3 chemotherapy. Tolerated well Blood counts trending lower. Transfuse PRBC 2U. CSF cytology negative. 05/28/16: Tolerated chemo well, no significant side effect. Blood counts started to trend down. 05/27/16: D1. Albina-C + Idarubicin. AML w/ intermediate risk cytogenetics. FLT3 is pending. (2) Pancytopenia Status: Acute Plan: transfuse for platelets less than 10k and a Hgb of less than 7. (3) Rectal bleed Status: Resolved Plan: -- Controlled. No new bleeding. EGD/colonoscopy on 05/20/15 showed gastritis, irregular Z line and rectal nodule. Path report negative for malignancy. -- Had hemorrhoid surgery three weeks prior to admission with Dr. Schwartz. (4) presence of pain pump Status: Chronic Plan: --patient with intrathecal pain pump --managed by Dr. Omer outpatient --pain pump refilled on 06/06/16 Assessment 61 y/o female with pancytopenia, suspected AML Plan 1. No transfusions today. 2. Continue Abx per ID. 3. Plan for bone marrow biopsy on Thursday with IR. 4. Supportive care. Attending Statement The exam, history, and the medical decision-making described in the above note were completed with the assistance of the mid-level provider. I reviewed and agree with the findings presented. I attest that I had a [id number] encounter with the patient on the same day, and personally performed and documented my assessment and findings in the medical record. Still tired. Headache has improved. Low grade temp overnight. No need for transfusion today. Bone marrow biopsy on Thursday. Continue supportive care. Problem Qualifiers (1) AML (acute myeloid leukemia): Qualified Code: C92.00 - Acute myeloid leukemia not having achieved remission Marissa Juarez Jun 11, 2016 08:52 Ryan Tripp MD Jun 11, 2016 17:10
--- NOTE | 2016-06-11 10:00 | HHI.IDPN ---
Subjective Subjective Remarks Notes reviewed Has occ low grade temps Remains neutropenic BOOKER better Overall feels better CT head negative Antibiotics Vancomycin Cefepime Flagyl Zithromax Micafungin Lines Donaldson R Past Medical History Hypothyroidism GERD Chronic back pain Peripheral edema Hemorrhoids Past Surgical History Back and neck surgery Rotator cuff surgery Pain pump placement on the right lower abdomen Hemorrhoidectomy Allergies: Coded Allergies: No Known Allergies (Verified , 05/16/16) Objective . Vital Signs Date Time Temp Pulse Resp B/P Pulse Ox O2 Delivery O2 Flow Rate FiO2 06/11/16 06:36 18 06/11/16 05:28 100.5 101 16 126/56 94 06/11/16 03:10 16 06/11/16 00:00 98.8 79 16 123/56 95 06/10/16 20:45 18 06/10/16 20:00 99.8 116 16 135/65 98 06/10/16 18:49 100.6 100 18 144/63 97 06/10/16 12:22 99.9 82 16 123/58 98 06/10/16 10:54 99.2 81 16 126/60 94 06/10/16 06/10/16 06/11/16 15:00 23:00 07:00 Intake Total 600 ml 1216 ml 600 ml Balance 600 ml 1216 ml 600 ml Intake Oral 600 ml 360 ml 600 ml IV Total 856 ml # Voids 2 2 3 # Bowel Movements 0 0 . Laboratory Tests Test 06/10/16 06/11/16 00:35 05:43 White Blood Count 0.5 TH/MM3 0.5 TH/MM3 Red Blood Count 3.02 MIL/MM3 2.87 MIL/MM3 Hemoglobin 9.5 GM/DL 9.0 GM/DL Hematocrit 27.1 % 26.1 % Mean Corpuscular Volume 89.8 FL 91.0 FL Mean Corpuscular Hemoglobin 31.5 PG 31.5 PG Mean Corpuscular Hemoglobin 35.0 % 34.6 % Concent Red Cell Distribution Width 13.9 % 13.8 % Platelet Count 16 TH/MM3 38 TH/MM3 Mean Platelet Volume 7.6 FL 8.0 FL Neutrophils (%) (Auto) 0.2 % % Lymphocytes (%) (Auto) 97.6 % % Monocytes (%) (Auto) 2.1 % % Eosinophils (%) (Auto) 0.1 % % Basophils (%) (Auto) 0.0 % % Neutrophils # (Auto) 0.0 TH/MM3 TH/MM3 Lymphocytes # (Auto) 0.5 TH/MM3 TH/MM3 Monocytes # (Auto) 0.0 TH/MM3 TH/MM3 Eosinophils # (Auto) 0.0 TH/MM3 TH/MM3 Basophils # (Auto) 0.0 TH/MM3 TH/MM3 CBC Comment AUTO DIFF AUTO DIFF Differential Total Cells 25 15 Counted Lymphocytes % 100 % 100 % Neutrophils # (Manual) 0.0 TH/MM3 Differential Comment FINAL DIFF FINAL DIFF MANUAL MANUAL Platelet Estimate RARE LOW Platelet Morphology Comment NORMAL NORMAL Red Cell Morphology Comment NORMAL Laboratory Tests Test 06/10/16 06/11/16 00:35 05:43 Sodium Level 139 MEQ/L 139 MEQ/L Potassium Level 3.7 MEQ/L 3.6 MEQ/L Chloride Level 106 MEQ/L 108 MEQ/L Carbon Dioxide Level 25.5 MEQ/L 26.5 MEQ/L Anion Gap 8 MEQ/L 5 MEQ/L Blood Urea Nitrogen 9 MG/DL 6 MG/DL Creatinine 0.52 MG/DL 0.56 MG/DL Estimat Glomerular Filtration 120 ML/MIN 110 ML/MIN Rate Random Glucose 114 MG/DL 107 MG/DL Calcium Level 7.8 MG/DL 8.0 MG/DL Phosphorus Level 1.6 MG/DL 1.3 MG/DL Magnesium Level 1.8 MG/DL 2.3 MG/DL Total Bilirubin 0.6 MG/DL 0.3 MG/DL Aspartate Amino Transf 8 U/L 6 U/L (AST/SGOT) Alanine Aminotransferase 12 U/L 15 U/L (ALT/SGPT) Alkaline Phosphatase 42 U/L 47 U/L Total Protein 6.0 GM/DL 6.1 GM/DL Albumin 2.4 GM/DL 2.6 GM/DL Microbiology Date/Time Procedure Status Source Growth 06/10/16 04:10 Aerobic Blood Culture Received Blood Line Pending 06/10/16 04:10 Anaerobic Blood Culture Received Blood Line Pending 06/10/16 05:42 Aerobic Blood Culture Received Blood Peripheral Pending 06/10/16 05:42 Anaerobic Blood Culture Received Blood Peripheral Pending Imaging Abdomen/Pelvis CT 06/05/16 0000 Signed Impressions: Service Date/Time: May 22:13 - CONCLUSION: Minimal fluid in the pelvis, otherwise unremarkable. Cynthia Guardado MD Chest X-Ray 06/04/16 0000 Signed Impressions: Service Date/Time: Saturday, June 04, 2016 21:23 - CONCLUSION: No acute disease. Kilo Cotto MD Lumbar Puncture Fluoroscopy 05/23/16 0000 Signed Impressions: Service Date/Time: Monday, May 23, 2016 14:16 - CONCLUSION: Uncomplicated fluoroscopically guided lumbar puncture. Bubba Cherry MD Catheter Placement X-Ray 05/23/16 0000 Signed Impressions: Service Date/Time: Monday, May 23, 2016 14:16 - CONCLUSION: Uncomplicated Donaldson catheter placement as above. Bubba Cherry MD Bone Biopsy CT 05/20/16 0846 Signed Impressions: Service Date/Time: Friday, May 20, 2016 09:13 - CONCLUSION: 1. Uncomplicated CT guided bone marrow aspirate. 2. Uncomplicated CT guided bone marrow biopsy. Yazan Saucedo MD Head CT 05/20/16 0000 Signed Impressions: Service Date/Time: Friday, May 20, 2016 15:16 - CONCLUSION: Normal examination for a patient of this age. No significant change has occurred. Emilio Thomas MD Chest CT 05/17/16 0000 Signed Impressions: Service Date/Time: Tuesday, May 17, 2016 15:14 - CONCLUSION: 1. 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 There are trace to very small bilateral pleural effusions and mild cardiomegaly noted. 2. No lobar consolidation. 3. Upper limits of normal to mildly enlarged mediastinal and bilateral hilar lymph nodes, nonspecific but presumably reactive. Bravo Mendez MD Physical Exam GENERAL: awake and alert, not in any respiratory distress. SKIN: Warm and dry. No generalized rash, no ecchymosis HEENT: Pale conjunctivae, no petechia or hemorrhage. No scleral icterus. Moist oral mucosa. NECK: Supple, nontender, no meningeal signs. CARDIOVASCULAR: Regular rate and rhythm without murmurs, gallops, or rubs. RESPIRATORY: Clear to auscultation. Breath sounds equal bilaterally. No wheezes , rales, or rhonchi. Donaldson catheter with no evidence of infection GASTROINTESTINAL: Abdomen soft, nondistended, bowel sounds are present, no tenderness. No rebound or guarding. She has her pain pump RLQ no evidence of infection MUSCULOSKELETAL: Extremities without clubbing, cyanosis, or edema. No calf tenderness. NEURO: Non focal PSYCH: Normal affect, calm and cooperative LINE: Donaldson cath with no evidence of infection Assessment & Plan Remarks IMPRESSION Neutropenic fever, patient with newly Dx AML, on induction chemotherapy - has had mucositis - has cough, CXR negative - UA ok - has diarrhea, R/O C diff - has line AML, on induction chemo Diarrhea, C diff negative Headache, new - better - CT head negative RECOMMENDATION Continue cefepime Continue acyclovir for prophylaxis Continue Flagyl Continue vancomycin Continue Micafungin Monitor temps Follow counts Follow cultures Monitor progress Diane Wynne MD Jun 11, 2016 09:59
--- NOTE | 2016-06-11 11:38 | HHI.PR ---
Subjective Remarks fu pancytopenia, neutropenic fever, uti Patient feels better today still having low grade fever T max 100.6 denies cp/sob denies chills headaches much better today denies nausea or vomiting Objective Vitals Vital Signs Date Time Temp Pulse Resp B/P Pulse Ox O2 Delivery O2 Flow Rate FiO2 06/11/16 08:00 99.1 81 16 119/59 95 06/11/16 06:36 18 06/11/16 05:28 100.5 101 16 126/56 94 06/11/16 03:10 16 06/11/16 00:00 98.8 79 16 123/56 95 06/10/16 20:45 18 06/10/16 20:00 99.8 116 16 135/65 98 06/10/16 18:49 100.6 100 18 144/63 97 06/10/16 12:22 99.9 82 16 123/58 98 I/O 06/10/16 06/10/16 06/10/16 06/11/16 06/11/16 06/11/16 07:00 15:00 23:00 07:00 15:00 23:00 Intake Total 600 ml 1216 ml 600 ml Balance 600 ml 1216 ml 600 ml Intake Oral 600 ml 360 ml 600 ml IV Total 856 ml # Voids 2 2 3 # Bowel Movements 0 0 Result Diagram: 06/11/16 0543 06/11/16 0543 Imaging Last Impressions Head CT 06/10/16 0000 Signed Impressions: Service Date/Time: Friday, June 10, 2016 14:56 - CONCLUSION: Stable noncontrast head CT. No acute intracranial abnormality is identified. Bravo Jackman MD Abdomen/Pelvis CT 06/05/16 0000 Signed Impressions: Service Date/Time: May 22:13 - CONCLUSION: Minimal fluid in the pelvis, otherwise unremarkable. Cynthia Guardado MD Chest X-Ray 06/04/16 0000 Signed Impressions: Service Date/Time: Saturday, June 04, 2016 21:23 - CONCLUSION: No acute disease. Kilo Cotto MD Lumbar Puncture Fluoroscopy 05/23/16 0000 Signed Impressions: Service Date/Time: Monday, May 23, 2016 14:16 - CONCLUSION: Uncomplicated fluoroscopically guided lumbar puncture. Bubba Cherry MD Catheter Placement X-Ray 05/23/16 0000 Signed Impressions: Service Date/Time: Monday, May 23, 2016 14:16 - CONCLUSION: Uncomplicated Donaldson catheter placement as above. Bubba Cherry MD Bone Biopsy CT 05/20/16 0846 Signed Impressions: Service Date/Time: Friday, May 20, 2016 09:13 - CONCLUSION: 1. Uncomplicated CT guided bone marrow aspirate. 2. Uncomplicated CT guided bone marrow biopsy. Yazan Saucedo MD Chest CT 05/17/16 0000 Signed Impressions: Service Date/Time: Tuesday, May 17, 2016 15:14 - CONCLUSION: 1. 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 There are trace to very small bilateral pleural effusions and mild cardiomegaly noted. 2. No lobar consolidation. 3. Upper limits of normal to mildly enlarged mediastinal and bilateral hilar lymph nodes, nonspecific but presumably reactive. Bravo Mendez MD Objective Remarks GENERAL: This is a well-nourished, well-developed patient, in no apparent distress. HEENT: NC, AT. Jaw pain upon palpation. Pale conjunctiva CARDIOVASCULAR: Regular rate and rhythm. Grade 2 systolic murmur appreciated. RESPIRATORY: CTAB. No W/R/R. GASTROINTESTINAL: Abdomen soft, mild tenderness to plapation over left upper quadrant , mildly distended with hypoactive bowel sounds. Pain pump in RLQ. MUSCULOSKELETAL: Extremities without clubbing, cyanosis, or edema. NEURO: Alert & Oriented x4 to person, place, time, situation. Moves all ext x4. Normal finger to nose test. EOMI. PSYCH: Mood and affect appropriate. Procedures EGD/ colonoscopy Bone marrow biopsy Medications and IVs Current Medications Medications (Trade) Dose Ordered Sig/Prashant Route Start Time Stop Time Status Last Admin (Soma) 350 mg TID PRN PO 05/16/16 17:30 05/27/16 09:17 (Lasix) 20 mg DAILY PO 05/17/16 09:00 06/11/16 08:45 (Neurontin) 300 mg TID PO 05/16/16 18:00 06/11/16 08:45 (Synthroid) 25 mcg DAILY@06 PO 05/17/16 06:00 06/11/16 05:36 (KCl) 10 meq DAILY PO 05/17/16 09:00 06/11/16 08:45 (Pepcid) 20 mg BID PO 05/16/16 21:00 06/11/16 08:45 (NS Flush) 2 ml UNSCH PRN IV 05/16/16 17:45 (NS Flush) 2 ml BID IV 05/16/16 21:00 06/11/16 08:42 (Zofran Inj) 4 mg Q6H PRN IV 05/16/16 17:45 06/11/16 08:42 Acetaminophen 650 mg 650 mg Q6HR PRN PO 05/17/16 06:30 06/10/16 18:58 (Lr 1000 ml Inj) 1,000 ml @ 30 mls/hr Q24H IV 05/20/16 01:15 (Percocet 5-325 Mg) 1 tab Q4H PRN PO 05/20/16 10:00 06/11/16 02:18 (Canasa Supp) 1,000 mg HS RECTAL 05/20/16 21:00 Hold (Protonix) 40 mg DAILY PO 05/22/16 09:00 06/11/16 08:45 (Roxicodone) 10 mg Q4H PRN PO 05/21/16 16:00 06/11/16 05:36 (NS Flush) DAILY IVF 05/24/16 09:00 06/11/16 08:45 (Heparin Central Flush) DAILY IVF 05/24/16 09:00 06/10/16 09:22 (NS Flush) UNSCH PRN IVF 05/23/16 15:30 06/04/16 04:31 (Heparin Central Flush) UNSCH PRN IVF 05/23/16 15:30 06/02/16 04:01 (Colace) 100 mg BID PO 05/24/16 11:00 Hold 06/05/16 07:58 (Miralax) 17 gm DAILY PO 05/25/16 14:30 Hold 06/04/16 08:27 Lactic Acid 1 applic 1 applic BID PRN TOPICAL 05/25/16 14:30 (NS 1000 ml Inj) 1,000 ml @ 100 mls/hr Q10H IV 05/26/16 09:30 06/11/16 05:37 (Zyloprim) 300 mg DAILY PO 05/26/16 09:30 06/11/16 08:45 (Morphine Inj) 2 mg Q2HR PRN IV PUSH 05/27/16 08:45 06/10/16 20:40 (Lactulose Liq) 30 ml DAILY PO 05/27/16 09:00 Hold 06/05/16 07:57 (Valium) 10 mg Q12HR PO 05/28/16 09:00 06/11/16 08:45 (Restoril) 15 mg HS PRN PO 05/28/16 08:00 06/01/16 22:23 (Magic Mouthwash Adult Liq) 5 ml QID SWISH-SWAL 06/03/16 09:00 06/11/16 08:45 Acyclovir 400 mg 400 mg Q8HR PO 06/03/16 14:00 06/11/16 05:36 Cefepime HCl 2000 mg/Sodium Chloride 100 ml @ 200 mls/hr Q8H IV 06/05/16 18:00 06/11/16 09:56 (Vancomycin Consult Pharmacy) 0 ml @ 0 mls/hr UNSCH OTHER 06/05/16 13:45 (Flagyl) 500 mg Q8HR PO 06/05/16 14:00 06/11/16 05:36 Patient Own Medication PT OWN MED: HYDROMORPHONE 40 MG/... UNSCH OTHER 06/06/16 11:00 Loperamide HCl 2 mg 2 mg UNSCH PRN PO 06/09/16 11:15 06/10/16 23:01 Micafungin Sodium 100 mg/Sodium Chloride 100 ml @ 100 mls/hr Q24H IV 06/10/16 16:00 06/10/16 17:01 (Vancomycin Inj/ NS 500 ml Inj) 515 ml @ 250 mls/hr Q12H IV 06/10/16 18:00 06/11/16 05:37 Urinary Catheter: No Vascular Central Line Catheter: No A/P Problem List: (1) AML (acute myeloid leukemia) ICD Code: C92.00 Status: Acute (2) Neutropenic fever ICD Code: D70.9 Status: Acute (3) Pancytopenia ICD Code: D61.818 Status: Acute (4) Symptomatic anemia ICD Code: D64.9 Status: Resolved (5) UTI (urinary tract infection) ICD Code: N39.0 Status: Resolved (6) GI bleed ICD Code: K92.2 Status: Resolved (7) Anxiety ICD Code: F41.9 Status: Chronic (8) Diarrhea ICD Code: R19.7 Status: Acute (9) Dizziness ICD Code: R42 Status: Resolved Assessment and Plan (1) AML (acute myeloid leukemia) Plan: As shown on bone marrow biopsy. Medical oncology consulted and following. Patient is status post chemotherapy which will be 2 weeks tomorrow. Status post port placement 05/23. Chemotherapy started 05/27. Patient was treated with IV fluids and allopurinol while on chemotherapy to prevent tumor lysis syndrome which are now discontinued. Hemoglobin being monitored. sp transfusion of 2 units of PRBC on 06/09 ---> hemoglobin remains stable at 9 sp transfusion of 1 unit of platelets on 06/09 - monitor platelets Continue with neutropenic precautions. 06/11 Transfuse for platelets less than 10k and hb less than 7. For BM biopsy by IR on Thursday as per oncology. (2) Neutropenic fever Plan: UA positive for Klebsiella pneumonia. Patient still having low-grade fever with a MAXIMUM TEMPERATURE of 99.7. Diarrhea resolved after Imodium. Patient's C. difficile negative. ID consulted. Antibiotics, antifungals and antivirals as per ID recommendations. The patient is currently on IV vancomycin, IV cefepime, oral azithromycin, oral Flagyl, oral acyclovir and oral fluconazole. 06/10 Diflucan changed to Micafungin IV. Zithromax discontinued as per ID. 06/11 continue antibiotics as per ID. (3) Pancytopenia Plan: Pancytopenia likely secondary to chemotherapy given for AML treatment. Neutrophil count is 0. Platelet is slightly improved from previous days up to 27. Hemoglobin down to 6.8, being transfused 2 units of proper blood cells. Continue to monitor CBC and follow up oncology recommendations. (4) Symptomatic anemia Plan: Patient with tiredness and fatigue. Sp transfusion of 2 units of PRBC. Continue to monitor CBC. Transfuse as per oncology recommendations. transfuse for hb <7 (5) UTI (urinary tract infection) Plan: Continue antibiotics as above and as per ID recommendations. Urine culture grew Klebsiella pneumonia. (6) GI bleed Plan: GI bleed now resolved. Patient had some episodes of rectal bleeding. (7) Anxiety Plan: Continue Valium as needed. seems stable. (8) Diarrhea Plan: Diarrhea initially improved after immodium. However patient c/o diarrhea today. Will order stool studies and c diff. Patient also has some tender ness to palpation over left upper quadrant. (9) Dizziness Plan: CT head ordered by oncology 06/10 - No acute disease. Dizziness much improved. DVT prophylaxis: SCDs, no chemoprophylaxis given recent rectal bleed. Discharge Planning continue to monitor in the oncology floor. Dc pending clinical improvement - patient still neutropenic and with fevers as well with diarrhea. Problem Qualifiers (1) AML (acute myeloid leukemia): Qualified Code: C92.00 - Acute myeloid leukemia not having achieved remission (2) UTI (urinary tract infection): Qualified Code: N30.00 - Acute cystitis without hematuria (3) GI bleed: Qualified Code: K92.2 - Gastrointestinal hemorrhage, unspecified gastrointestinal hemorrhage type (4) Diarrhea: Qualified Code: R19.7 - Diarrhea, unspecified type Stephen Burkett MD Jun 11, 2016 11:38
[2016-06-11 12:00] VITALS: BP 136/64; PULSE 80; RESP 18; TEMP 98.7; O2SAT 98
[2016-06-11 16:00] VITALS: BP 131/66; PULSE 67; RESP 18; TEMP 100.3; O2SAT 96
[2016-06-11] MEDS: MICAFUNGIN INJ 100 MG in SODIUM CHLORIDE 0.9% INJ 100 ML IV SCH (16:47)
[2016-06-11 21:29] VITALS: BP 130/73; PULSE 99; RESP 16; TEMP 100.4; O2SAT 95
[2016-06-12 00:28] VITALS: BP 125/59; PULSE 91; RESP 16; TEMP 100.2; O2SAT 93
[2016-06-12] MEDS: SODIUM CHLOR 0.9% 1000 ML INJ 1,000 ML IV SCH ×3 (01:01→21:30)
[2016-06-12] MEDS: LACTATED RINGER'S 1000 ML IV SCH (01:02)
[2016-06-12] MEDS: CEFEPIME INJ 2,000 MG in SODIUM CHLORIDE 0.9% INJ 100 ML IV SCH ×3 (01:03→17:28)
[2016-06-12] MEDS: MORPHINE SULFATE 4 MG/ML INJ IV PUSH PRN (03:45)
[2016-06-12 04:55] VITALS: BP 127/59; PULSE 95; RESP 16; TEMP 100.3; O2SAT 98
[2016-06-12] MEDS: ACYCLOVIR 200 MG CAP PO SCH ×3 (05:32→21:19)
[2016-06-12] MEDS: LEVOTHYROXINE SODIUM 25 MCG TAB PO SCH (05:32)
[2016-06-12] MEDS: VANCOMYCIN INJ 1,500 MG in SODIUM CHLORID 0.9% 500 ML INJ 500 ML IV SCH (05:32)
[2016-06-12] MEDS: metroNIDAZOLE 500 MG TAB PO SCH ×3 (05:32→21:19)
[2016-06-12] MEDS ORDERED: PHARMACY ORDERED LAB XX ONE (05:45)
[2016-06-12 07:06] LABS: HEMATOCRIT 23.4 % (35.0-46.0); MEAN CELL VOLUME 89.4 FL (80.0-100.0); MEAN CORPUSCULAR HGB CONC 35.8 % (32.0-36.0); PLATELET COUNT 23 TH/MM3 (150-450); RED BLOOD COUNT 2.62 MIL/MM3 (4.00-5.30); RED CELL DISTRIBUTION WIDTH 13.6 % (11.6-17.2); WHITE BLOOD COUNT 0.5 TH/MM3 (4.0-11.0)
[2016-06-12 07:14] LABS: ALT (GPT) 13 U/L (10-53); ANION GAP 6 MEQ/L (5-15); AST (GOT) 8 U/L (15-37); BICARBONATE 24.9 MEQ/L (21.0-32.0); BLOOD UREA NITROGEN 6 MG/DL (7-18); CHLORIDE 106 MEQ/L (98-107); GLOMERULAR FILTRATION RATE 120 ML/MIN (>89); HEMO FLAGS AUTO DIFF; MAGNESIUM 1.9 MG/DL (1.5-2.5); POTASSIUM 3.3 MEQ/L (3.5-5.1); SODIUM (NA) 137 MEQ/L (136-145)
[2016-06-12 07:15] LABS: ALKALINE PHOSPHATASE 44 U/L (45-117); TOTAL BILIRUBIN ADULT 0.5 MG/DL (0.2-1.0)
[2016-06-12 08:00] VITALS: BP 108/55; PULSE 99; RESP 16; TEMP 98.1; O2SAT 96
[2016-06-12 08:12] LABS: BANDS 10 % (0-6); NEUTROPHIL # MANUAL DIFF 0.1 TH/MM3 (1.8-7.7); PLATELET ESTIMATE SMEAR LOW (NORMAL); PLATELET MORPHOLOGY ENLARGED (NORMAL); SCAN/DIFF FINAL DIFF MANUAL; WBC DIFF SAMPLE 10
--- NOTE | 2016-06-12 08:56 | PD.ONC.PN ---
Subjective Subjective Remarks +Headache, no visual changes. Loose stool 1-2/day. No abdominal pain. No bleeding. Objective Data Date Time Temp Pulse Resp B/P Pulse Ox O2 Delivery O2 Flow Rate FiO2 06/12/16 08:00 98.1 99 16 108/55 96 06/12/16 04:55 100.3 95 16 127/59 98 06/12/16 00:28 100.2 91 16 125/59 93 06/11/16 21:29 100.4 99 16 130/73 95 06/11/16 16:00 100.3 67 18 131/66 96 06/11/16 12:00 98.7 80 18 136/64 98 06/12/16 06/12/16 06/12/16 07:00 15:00 23:00 Intake Total 360 ml 1492 ml Output Total 2 ml Balance 358 ml 1492 ml Result Diagram: 06/12/16 0630 06/12/16 0630 Laboratory Results Laboratory Tests Test 06/12/16 06/12/16 05:30 06:30 Vancomycin Level Trough 9.6 MCG/ML White Blood Count 0.5 TH/MM3 Red Blood Count 2.62 MIL/MM3 Hemoglobin 8.4 GM/DL Hematocrit 23.4 % Mean Corpuscular Volume 89.4 FL Mean Corpuscular Hemoglobin 32.0 PG Mean Corpuscular Hemoglobin 35.8 % Concent Red Cell Distribution Width 13.6 % Platelet Count 23 TH/MM3 Mean Platelet Volume 8.4 FL Neutrophils (%) (Auto) % Lymphocytes (%) (Auto) % Monocytes (%) (Auto) % Eosinophils (%) (Auto) % Basophils (%) (Auto) % Neutrophils # (Auto) TH/MM3 Lymphocytes # (Auto) TH/MM3 Monocytes # (Auto) TH/MM3 Eosinophils # (Auto) TH/MM3 Basophils # (Auto) TH/MM3 CBC Comment AUTO DIFF Differential Total Cells 10 Counted Band Neutrophils % 10 % Lymphocytes % 90 % Neutrophils # (Manual) 0.1 TH/MM3 Differential Comment FINAL DIFF MANUAL Platelet Estimate LOW Platelet Morphology Comment ENLARGED Sodium Level 137 MEQ/L Potassium Level 3.3 MEQ/L Chloride Level 106 MEQ/L Carbon Dioxide Level 24.9 MEQ/L Anion Gap 6 MEQ/L Blood Urea Nitrogen 6 MG/DL Creatinine 0.52 MG/DL Estimat Glomerular Filtration 120 ML/MIN Rate Random Glucose 102 MG/DL Calcium Level 7.7 MG/DL Phosphorus Level 1.2 MG/DL Magnesium Level 1.9 MG/DL Total Bilirubin 0.5 MG/DL Aspartate Amino Transf 8 U/L (AST/SGOT) Alanine Aminotransferase 13 U/L (ALT/SGPT) Alkaline Phosphatase 44 U/L Total Protein 5.7 GM/DL Albumin 2.3 GM/DL Culture Results Microbiology Date/Time Procedure Status Source Growth 06/10/16 04:10 Aerobic Blood Culture - Preliminary Resulted Blood Line NO GROWTH IN 1 DAY 06/10/16 04:10 Anaerobic Blood Culture - Preliminary Resulted Blood Line NO GROWTH IN 1 DAY 06/10/16 05:42 Aerobic Blood Culture - Preliminary Resulted Blood Peripheral NO GROWTH IN 1 DAY 06/10/16 05:42 Anaerobic Blood Culture - Preliminary Resulted Blood Peripheral NO GROWTH IN 1 DAY Administered Medications Medications (Trade) Dose Ordered Sig/Prashant Route PRN Reason Start Time Stop Time Status Last Admin Dose Admin Carisoprodol (Soma) 350 mg TID PRN PO PAIN 05/16/16 17:30 05/27/16 09:17 Furosemide (Lasix) 20 mg DAILY PO 05/17/16 09:00 06/11/16 08:45 Gabapentin (Neurontin) 300 mg TID PO 05/16/16 18:00 06/11/16 17:39 Levothyroxine Sodium (Synthroid) 25 mcg DAILY@06 PO 05/17/16 06:00 06/12/16 05:32 Potassium Chloride (KCl) 10 meq DAILY PO 05/17/16 09:00 06/11/16 08:45 Famotidine (Pepcid) 20 mg BID PO 05/16/16 21:00 06/11/16 21:27 IV Flush (NS Flush) 2 ml BID IV 05/16/16 21:00 06/11/16 08:42 Ondansetron HCl (Zofran Inj) 4 mg Q6H PRN IV NAUSEA 05/16/16 17:45 06/11/16 08:42 Acetaminophen (Tylenol) 650 mg Q6HR PRN PO headache 05/17/16 06:30 06/10/16 18:58 Oxycodone/ Acetaminophen (Percocet 5-325 Mg) 1 tab Q4H PRN PO pain 1-5 05/20/16 10:00 06/11/16 02:18 Pantoprazole Sodium (Protonix) 40 mg DAILY PO 05/22/16 09:00 06/11/16 08:45 Oxycodone HCl (Roxicodone) 10 mg Q4H PRN PO pain 6-10 05/21/16 16:00 06/12/16 05:33 IV Flush (NS Flush) DAILY IVF 05/24/16 09:00 06/11/16 08:45 Heparin Sodium (Porcine) (Heparin Central Flush) DAILY IVF 05/24/16 09:00 06/11/16 13:25 IV Flush (NS Flush) UNSCH PRN IVF SEE PROTOCOL 05/23/16 15:30 06/04/16 04:31 Heparin Sodium (Porcine) (Heparin Central Flush) UNSCH PRN IVF SEE PROTOCOL 05/23/16 15:30 06/02/16 04:01 Docusate Sodium (Colace) 100 mg BID PO 05/24/16 11:00 Hold 06/05/16 07:58 Polyethylene Glycol 17 gm 17 gm DAILY PO 05/25/16 14:30 Hold 06/04/16 08:27 Sodium Chloride (NS 1000 ml Inj) 1,000 ml @ 100 mls/hr Q10H IV 05/26/16 09:30 06/12/16 01:01 Allopurinol (Zyloprim) 300 mg DAILY PO 05/26/16 09:30 06/11/16 08:45 Morphine Sulfate (Morphine Inj) 2 mg Q2HR PRN IV PUSH SEVERE BREAKTHROUGH PAIN 05/27/16 08:45 06/12/16 03:45 Lactulose (Lactulose Liq) 30 ml DAILY PO 05/27/16 09:00 Hold 06/05/16 07:57 Diazepam (Valium) 10 mg Q12HR PO 05/28/16 09:00 06/11/16 21:27 Temazepam (Restoril) 15 mg HS PRN PO SLEEP 05/28/16 08:00 06/01/16 22:23 Multi-Ingredient Mouthwash/Gargle (Magic Mouthwash Adult Liq) 5 ml QID SWISH-SWAL 06/03/16 09:00 06/11/16 08:45 Acyclovir 400 mg 400 mg Q8HR PO 06/03/16 14:00 06/12/16 05:32 Cefepime HCl/ Sodium Chloride (Maxipime Inj/NS Inj) 100 ml @ 200 mls/hr Q8H IV 06/05/16 18:00 06/12/16 01:03 Metronidazole (Flagyl) 500 mg Q8HR PO 06/05/16 14:00 06/12/16 05:32 Loperamide HCl 2 mg 2 mg UNSCH PRN PO DIARRHEA 06/09/16 11:15 06/10/16 23:01 Micafungin Sodium 100 mg/Sodium Chloride 100 ml @ 100 mls/hr Q24H IV 06/10/16 16:00 06/11/16 16:47 Vancomycin HCl/ Sodium Chloride (Vancomycin Inj/ NS 500 ml Inj) 515 ml @ 250 mls/hr Q12H IV 06/10/16 18:00 06/12/16 05:32 Objective Remarks GENERAL: Well-nourished, well-developed patient. SKIN: Warm and dry. HEAD: Normocephalic. EYES: No scleral icterus. No injection or drainage. NECK: Supple, trachea midline. No JVD or lymphadenopathy. LYMPHATIC: No adenopathy. CARDIOVASCULAR: Regular rate and rhythm without murmurs. RESPIRATORY: Breath sounds equal bilaterally. No accessory muscle use. GASTROINTESTINAL: Abdomen soft, non-tender, nondistended. EXTREMITIES: No cyanosis, or edema. MUSCULOSKELETAL: Adequate muscle tone. NEUROLOGICAL: No obvious focal deficit. Awake, alert, and oriented x3. PSYCHIATRIC: Appropriate mood and affect; insight and judgment normal. Assessment/Plan Problem List: (1) AML (acute myeloid leukemia) Status: Acute Plan: 06/12/16:D17: Intermittent headache. Blood counts stable. Bone marrow biopsy tomorrow. 06/11/16: D16. Doing well today. Counts stable. Headache improved; CT brain negative. Will plan for bone marrow biopsy with IR on Thursday. 06/10/16: D15. 1 unit plts. dizzy w/ headache. CT brain pending 06/09/16:D14. 2 units pRBC today. 06/08/16: No issues overnight. Plt's are low at 11,000. Likely will drop again tomorrow, so we will transfuse x1 dose today. No bleeding. 06/07/16: Afebrile. Neutropenic precautions continue. 06/06/16: afebrile overnight. continue abx per ID. pain pump refilled. 06/05/16: spiked fever overnight. started on Cefepime. Levaquin stopped. ID consulted. CT ab/pelvis negative 06/04/16: D9. 1 unit plt 06/03/16: D8 chemo finishes late tonight. started on acyclovir/diflucan/levaquin for prophylaxis. 06/01/16: D6. nauseated. otherwise no events. continue chemo. 05/31/16:D5. no events. 05/30/16: D4 chemotherapy. no transfusion today. 05/29/16: D3 chemotherapy. Tolerated well Blood counts trending lower. Transfuse PRBC 2U. CSF cytology negative. 05/28/16: Tolerated chemo well, no significant side effect. Blood counts started to trend down. 05/27/16: D1. Albina-C + Idarubicin. AML w/ intermediate risk cytogenetics. FLT3 is pending. (2) Pancytopenia Status: Acute Plan: transfuse for platelets less than 10k and a Hgb of less than 7. (3) Rectal bleed Status: Resolved Plan: -- Controlled. No new bleeding. EGD/colonoscopy on 05/20/15 showed gastritis, irregular Z line and rectal nodule. Path report negative for malignancy. -- Had hemorrhoid surgery three weeks prior to admission with Dr. Schwartz. (4) presence of pain pump Status: Chronic Plan: --patient with intrathecal pain pump --managed by Dr. Omer outpatient --pain pump refilled on 06/06/16 Assessment 61 y/o female with pancytopenia, suspected AML Plan 1. No transfusions needed today. 2. Continue Abx per ID. 3. Plan for bone marrow biopsy tomorrow. 4. Supportive care. Problem Qualifiers (1) AML (acute myeloid leukemia): Qualified Code: C92.00 - Acute myeloid leukemia not having achieved remission Ryan Tripp MD Jun 12, 2016 08:55
[2016-06-12] MEDS: SODIUM CHLORIDE 0.9% FLUSH 5 ML FLUSH IVF SCH (09:00)
[2016-06-12] MEDS: NYSTAT/DIPHENHY/LIDO MOUTHWASH (Adult) 120ML SWISH-SWAL SCH ×5 (09:00→21:00)
[2016-06-12] MEDS: SODIUM CHLORIDE 0.9% FLUSH 5 ML FLUSH IV SCH ×2 (09:00→21:00)
[2016-06-12] MEDS: GABAPENTIN 300 MG CAP PO SCH ×3 (09:27→17:28)
[2016-06-12] MEDS: ALLOPURINOL 300 MG TAB PO SCH (09:27)
[2016-06-12] MEDS: PANTOPRAZOLE SOD 40 MG DELAYED RELEASE TAB PO SCH (09:27)
[2016-06-12] MEDS: DIAZEPAM 10 MG TAB PO SCH ×2 (09:27→21:20)
[2016-06-12] MEDS: POTASSIUM CHLORIDE 10 MEQ CAP PO SCH (09:27)
[2016-06-12] MEDS: FAMOTIDINE 20 MG TAB PO SCH ×2 (09:27→21:19)
[2016-06-12] MEDS: FUROSEMIDE 20 MG TAB PO SCH (09:27)
[2016-06-12] MEDS ORDERED: POTASSIUM CHLORIDE 10 MEQ CONTROLLED RELEASE TAB PO ONE (09:30)
--- NOTE | 2016-06-12 10:13 | HHI.PR ---
Subjective Remarks Patient's sister is in the room The patient states that she has a headache this morning for which can on oral pain medication 10 minutes ago Denies nausea or vomiting Denies abdominal pain. Still feels tired States that she has diarrhea which resolved after she gets Imodium Still having fevers with MAXIMUM TEMPERATURE of 100.4 Objective Vitals Vital Signs Date Time Temp Pulse Resp B/P Pulse Ox O2 Delivery O2 Flow Rate FiO2 06/12/16 08:00 98.1 99 16 108/55 96 06/12/16 04:55 100.3 95 16 127/59 98 06/12/16 00:28 100.2 91 16 125/59 93 06/11/16 21:29 100.4 99 16 130/73 95 06/11/16 16:00 100.3 67 18 131/66 96 06/11/16 12:00 98.7 80 18 136/64 98 I/O 06/11/16 06/11/16 06/11/16 06/12/16 06/12/16 06/12/16 07:00 15:00 23:00 07:00 15:00 23:00 Intake Total 600 ml 960 ml 1192 ml 360 ml 1492 ml Output Total 2 ml Balance 600 ml 960 ml 1192 ml 358 ml 1492 ml Intake Oral 600 ml 960 ml 360 ml 360 ml IV Total 832 ml 1492 ml Output Urine Total 2 ml # Voids 3 3 2 # Bowel Movements 0 2 0 0 Result Diagram: 06/12/16 0630 06/12/16 0630 Imaging Last Impressions Head CT 06/10/16 0000 Signed Impressions: Service Date/Time: Friday, June 10, 2016 14:56 - CONCLUSION: Stable noncontrast head CT. No acute intracranial abnormality is identified. Bravo Jackman MD Abdomen/Pelvis CT 06/05/16 0000 Signed Impressions: Service Date/Time: May 22:13 - CONCLUSION: Minimal fluid in the pelvis, otherwise unremarkable. Cynthia Guardado MD Chest X-Ray 06/04/16 0000 Signed Impressions: Service Date/Time: Saturday, June 04, 2016 21:23 - CONCLUSION: No acute disease. Kilo Cotto MD Lumbar Puncture Fluoroscopy 05/23/16 0000 Signed Impressions: Service Date/Time: Monday, May 23, 2016 14:16 - CONCLUSION: Uncomplicated fluoroscopically guided lumbar puncture. Bubba Cherry MD Catheter Placement X-Ray 05/23/16 0000 Signed Impressions: Service Date/Time: Monday, May 23, 2016 14:16 - CONCLUSION: Uncomplicated Donaldson catheter placement as above. Bubba Cherry MD Bone Biopsy CT 05/20/16 0846 Signed Impressions: Service Date/Time: Friday, May 20, 2016 09:13 - CONCLUSION: 1. Uncomplicated CT guided bone marrow aspirate. 2. Uncomplicated CT guided bone marrow biopsy. Yazan Saucedo MD Chest CT 05/17/16 0000 Signed Impressions: Service Date/Time: Tuesday, May 17, 2016 15:14 - CONCLUSION: 1. 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 There are trace to very small bilateral pleural effusions and mild cardiomegaly noted. 2. No lobar consolidation. 3. Upper limits of normal to mildly enlarged mediastinal and bilateral hilar lymph nodes, nonspecific but presumably reactive. Bravo Mendez MD Objective Remarks GENERAL: This is a well-nourished, well-developed patient, in no apparent distress. HEENT: NC, AT. Jaw pain upon palpation. Pale conjunctiva CARDIOVASCULAR: Regular rate and rhythm. Grade 2 systolic murmur appreciated. RESPIRATORY: CTAB. No W/R/R. GASTROINTESTINAL: Abdomen soft, mild tenderness to plapation over left upper quadrant , mildly distended with hypoactive bowel sounds. Pain pump in RLQ. MUSCULOSKELETAL: Extremities without clubbing, cyanosis, or edema. NEURO: Alert & Oriented x4 to person, place, time, situation. Moves all ext x4. Normal finger to nose test. EOMI. PSYCH: Mood and affect appropriate. Procedures EGD/ colonoscopy Bone marrow biopsy Medications and IVs Current Medications Medications (Trade) Dose Ordered Sig/Prashant Route Start Time Stop Time Status Last Admin (Soma) 350 mg TID PRN PO 05/16/16 17:30 05/27/16 09:17 (Lasix) 20 mg DAILY PO 05/17/16 09:00 06/12/16 09:27 (Neurontin) 300 mg TID PO 05/16/16 18:00 06/12/16 09:27 (Synthroid) 25 mcg DAILY@06 PO 05/17/16 06:00 06/12/16 05:32 (KCl) 10 meq DAILY PO 05/17/16 09:00 06/12/16 09:27 (Pepcid) 20 mg BID PO 05/16/16 21:00 06/12/16 09:27 (NS Flush) 2 ml UNSCH PRN IV 05/16/16 17:45 (NS Flush) 2 ml BID IV 05/16/16 21:00 06/11/16 08:42 (Zofran Inj) 4 mg Q6H PRN IV 05/16/16 17:45 06/11/16 08:42 Acetaminophen 650 mg 650 mg Q6HR PRN PO 05/17/16 06:30 06/10/16 18:58 (Lr 1000 ml Inj) 1,000 ml @ 30 mls/hr Q24H IV 05/20/16 01:15 (Percocet 5-325 Mg) 1 tab Q4H PRN PO 05/20/16 10:00 06/11/16 02:18 (Canasa Supp) 1,000 mg HS RECTAL 05/20/16 21:00 Hold (Protonix) 40 mg DAILY PO 05/22/16 09:00 06/12/16 09:27 (Roxicodone) 10 mg Q4H PRN PO 05/21/16 16:00 06/12/16 09:27 (NS Flush) DAILY IVF 05/24/16 09:00 06/11/16 08:45 (Heparin Central Flush) DAILY IVF 05/24/16 09:00 06/12/16 09:29 (NS Flush) UNSCH PRN IVF 05/23/16 15:30 06/04/16 04:31 (Heparin Central Flush) UNSCH PRN IVF 05/23/16 15:30 06/02/16 04:01 (Colace) 100 mg BID PO 05/24/16 11:00 Hold 06/05/16 07:58 (Miralax) 17 gm DAILY PO 05/25/16 14:30 Hold 06/04/16 08:27 Lactic Acid 1 applic 1 applic BID PRN TOPICAL 05/25/16 14:30 (NS 1000 ml Inj) 1,000 ml @ 100 mls/hr Q10H IV 05/26/16 09:30 06/12/16 01:01 (Zyloprim) 300 mg DAILY PO 05/26/16 09:30 06/12/16 09:27 (Morphine Inj) 2 mg Q2HR PRN IV PUSH 05/27/16 08:45 06/12/16 03:45 (Lactulose Liq) 30 ml DAILY PO 05/27/16 09:00 Hold 06/05/16 07:57 (Valium) 10 mg Q12HR PO 05/28/16 09:00 06/12/16 09:27 (Restoril) 15 mg HS PRN PO 05/28/16 08:00 06/01/16 22:23 (Magic Mouthwash Adult Liq) 5 ml QID SWISH-SWAL 06/03/16 09:00 06/11/16 08:45 Acyclovir 400 mg 400 mg Q8HR PO 06/03/16 14:00 06/12/16 05:32 Cefepime HCl 2000 mg/Sodium Chloride 100 ml @ 200 mls/hr Q8H IV 06/05/16 18:00 06/12/16 09:28 (Vancomycin Consult Pharmacy) 0 ml @ 0 mls/hr UNSCH OTHER 06/05/16 13:45 (Flagyl) 500 mg Q8HR PO 06/05/16 14:00 06/12/16 05:32 Patient Own Medication PT OWN MED: HYDROMORPHONE 40 MG/... UNSCH OTHER 06/06/16 11:00 Loperamide HCl 2 mg 2 mg UNSCH PRN PO 06/09/16 11:15 06/10/16 23:01 Micafungin Sodium 100 mg/Sodium Chloride 100 ml @ 100 mls/hr Q24H IV 06/10/16 16:00 06/11/16 16:47 (Vancomycin Inj/ NS 500 ml Inj) 517.5 ml @ 250 mls/hr Q12H IV 06/12/16 18:00 Miscellaneous Information SPECIFIC LAB TO BE DRAWN:VANCOMYCIN TROUGH DATE TO... ONCE ONCE XX 06/14/16 05:45 06/14/16 05:46 (K-Phos Neutral) 250 mg Q6HR PO 06/12/16 12:00 Urinary Catheter: No Vascular Central Line Catheter: No A/P Problem List: (1) AML (acute myeloid leukemia) ICD Code: C92.00 Status: Acute (2) Neutropenic fever ICD Code: D70.9 Status: Acute (3) Pancytopenia ICD Code: D61.818 Status: Acute (4) Symptomatic anemia ICD Code: D64.9 Status: Resolved (5) UTI (urinary tract infection) ICD Code: N39.0 Status: Resolved (6) GI bleed ICD Code: K92.2 Status: Resolved (7) Anxiety ICD Code: F41.9 Status: Chronic (8) Diarrhea ICD Code: R19.7 Status: Acute (9) Dizziness ICD Code: R42 Status: Resolved (10) Hypophosphatemia ICD Code: E83.39 Status: Acute Plan: Likely due to decreased oral intake. I will start the patient on Neutra- Phos. Continue to monitor phosphorus. (11) Moderate protein-calorie malnutrition ICD Code: E44.0 Status: Acute Plan: Patient with increased catabolic state due to acute myelogenous leukemia. No albumin of 2.3, poor oral intake as well as diarrhea. I will consult the dietitian for further recommendations. Assessment and Plan (1) AML (acute myeloid leukemia) Plan: As shown on bone marrow biopsy. Medical oncology consulted and following. Patient is status post chemotherapy which will be 2 weeks tomorrow. Status post port placement 05/23. Chemotherapy started 05/27. Patient was treated with IV fluids and allopurinol while on chemotherapy to prevent tumor lysis syndrome which are now discontinued. Hemoglobin being monitored. sp transfusion of 2 units of PRBC on 06/09 ---> hemoglobin remains stable at 9 sp transfusion of 1 unit of platelets on 06/09 - monitor platelets Continue with neutropenic precautions. 06/11 Transfuse for platelets less than 10k and hb less than 7. For BM biopsy by IR on Thursday as per oncology. 06/12 counts are very stable with hemoglobin of 8.4 and platelets 23 and absolute neutrophil count of 0.1. (2) Neutropenic fever Plan: UA positive for Klebsiella pneumonia. Patient still having low-grade fever with a MAXIMUM TEMPERATURE of 99.7. Diarrhea resolved after Imodium. Patient's C. difficile negative. ID consulted. Antibiotics, antifungals and antivirals as per ID recommendations. The patient is currently on IV vancomycin, IV cefepime, oral azithromycin, oral Flagyl, oral acyclovir and oral fluconazole. 06/10 Diflucan changed to Micafungin IV. Zithromax discontinued as per ID. 06/11 continue antibiotics as per ID. (3) Pancytopenia Plan: Pancytopenia likely secondary to chemotherapy given for AML treatment. Neutrophil count is 0. Platelet is slightly improved from previous days up to 27. Hemoglobin down to 6.8, being transfused 2 units of proper blood cells. Continue to monitor CBC and follow up oncology recommendations. (4) Symptomatic anemia Plan: Patient with tiredness and fatigue. Sp transfusion of 2 units of PRBC. Continue to monitor CBC. Transfuse as per oncology recommendations. transfuse for hb <7 (5) UTI (urinary tract infection) Plan: Continue antibiotics as above and as per ID recommendations. Urine culture grew Klebsiella pneumonia. (6) GI bleed Plan: GI bleed now resolved. Patient had some episodes of rectal bleeding. (7) Anxiety Plan: Continue Valium as needed. seems stable. (8) Diarrhea Plan: Diarrhea initially improved after immodium. However patient c/o diarrhea today. Will order stool studies and c diff. Patient also has some tender ness to palpation over left upper quadrant. 06/12 stool studies pending (9) Dizziness Plan: CT head ordered by oncology 06/10 - No acute disease. Dizziness has now resolved. DVT prophylaxis: SCDs, no chemoprophylaxis given recent rectal bleed. Discharge Planning continue to monitor in the oncology floor. Dc pending clinical improvement - patient still neutropenic and with fevers as well with diarrhea. Problem Qualifiers (1) AML (acute myeloid leukemia): Qualified Code: C92.00 - Acute myeloid leukemia not having achieved remission (2) UTI (urinary tract infection): Qualified Code: N30.00 - Acute cystitis without hematuria (3) GI bleed: Qualified Code: K92.2 - Gastrointestinal hemorrhage, unspecified gastrointestinal hemorrhage type (4) Diarrhea: Qualified Code: R19.7 - Diarrhea, unspecified type Stephen Burkett MD Jun 12, 2016 10:13
[2016-06-12 12:00] VITALS: BP 121/60; PULSE 81; RESP 18; TEMP 99.4; O2SAT 94
[2016-06-12 13:07] LABS: C. DIFF EPI 027 PRESUMPTIVE NEGATIVE (NEGATIVE); C. DIFF TOXIN PCR NEGATIVE (NEGATIVE)
[2016-06-12] MEDS: LOPERAMIDE HCL 2 MG CAP PO PRN ×2 (13:20→14:58)
[2016-06-12] MEDS: POTASSIUM PHOSPHATE/SODIUM PHOSPHATE 250 MG TAB PO SCH ×2 (13:21→17:29)
--- NOTE | 2016-06-12 14:42 | HHI.IDPN ---
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 Vital Signs Date Time Temp Pulse Resp B/P Pulse Ox O2 Delivery O2 Flow Rate FiO2 06/12/16 12:00 99.4 81 18 121/60 94 06/12/16 08:00 98.1 99 16 108/55 96 06/12/16 04:55 100.3 95 16 127/59 98 06/12/16 00:28 100.2 91 16 125/59 93 06/11/16 21:29 100.4 99 16 130/73 95 06/11/16 16:00 100.3 67 18 131/66 96 06/11/16 06/11/16 06/12/16 15:00 23:00 07:00 Intake Total 960 ml 1192 ml 360 ml Output Total 2 ml Balance 960 ml 1192 ml 358 ml Intake Oral 960 ml 360 ml 360 ml IV Total 832 ml Output Urine Total 2 ml # Voids 3 2 # Bowel Movements 2 0 0 . Laboratory Tests Test 06/11/16 06/12/16 05:43 06:30 White Blood Count 0.5 TH/MM3 0.5 TH/MM3 Red Blood Count 2.87 MIL/MM3 2.62 MIL/MM3 Hemoglobin 9.0 GM/DL 8.4 GM/DL Hematocrit 26.1 % 23.4 % Mean Corpuscular Volume 91.0 FL 89.4 FL Mean Corpuscular Hemoglobin 31.5 PG 32.0 PG Mean Corpuscular Hemoglobin 34.6 % 35.8 % Concent Red Cell Distribution Width 13.8 % 13.6 % Platelet Count 38 TH/MM3 23 TH/MM3 Mean Platelet Volume 8.0 FL 8.4 FL Neutrophils (%) (Auto) % % Lymphocytes (%) (Auto) % % Monocytes (%) (Auto) % % Eosinophils (%) (Auto) % % Basophils (%) (Auto) % % Neutrophils # (Auto) TH/MM3 TH/MM3 Lymphocytes # (Auto) TH/MM3 TH/MM3 Monocytes # (Auto) TH/MM3 TH/MM3 Eosinophils # (Auto) TH/MM3 TH/MM3 Basophils # (Auto) TH/MM3 TH/MM3 CBC Comment AUTO DIFF AUTO DIFF Differential Total Cells 15 10 Counted Lymphocytes % 100 % 90 % Differential Comment FINAL DIFF FINAL DIFF MANUAL MANUAL Platelet Estimate LOW LOW Platelet Morphology Comment NORMAL ENLARGED Band Neutrophils % 10 % Neutrophils # (Manual) 0.1 TH/MM3 Laboratory Tests Test 06/11/16 06/12/16 05:43 06:30 Sodium Level 139 MEQ/L 137 MEQ/L Potassium Level 3.6 MEQ/L 3.3 MEQ/L Chloride Level 108 MEQ/L 106 MEQ/L Carbon Dioxide Level 26.5 MEQ/L 24.9 MEQ/L Anion Gap 5 MEQ/L 6 MEQ/L Blood Urea Nitrogen 6 MG/DL 6 MG/DL Creatinine 0.56 MG/DL 0.52 MG/DL Estimat Glomerular Filtration 110 ML/MIN 120 ML/MIN Rate Random Glucose 107 MG/DL 102 MG/DL Calcium Level 8.0 MG/DL 7.7 MG/DL Phosphorus Level 1.3 MG/DL 1.2 MG/DL Magnesium Level 2.3 MG/DL 1.9 MG/DL Total Bilirubin 0.3 MG/DL 0.5 MG/DL Aspartate Amino Transf 6 U/L 8 U/L (AST/SGOT) Alanine Aminotransferase 15 U/L 13 U/L (ALT/SGPT) Alkaline Phosphatase 47 U/L 44 U/L Total Protein 6.1 GM/DL 5.7 GM/DL Albumin 2.6 GM/DL 2.3 GM/DL Microbiology Date/Time Procedure Status Source Growth 06/10/16 04:10 Aerobic Blood Culture - Preliminary Resulted Blood Line NO GROWTH IN 2 DAYS 06/10/16 04:10 Anaerobic Blood Culture - Preliminary Resulted Blood Line NO GROWTH IN 2 DAYS 06/10/16 05:42 Aerobic Blood Culture - Preliminary Resulted Blood Peripheral NO GROWTH IN 2 DAYS 06/10/16 05:42 Anaerobic Blood Culture - Preliminary Resulted Blood Peripheral NO GROWTH IN 2 DAYS Imaging Abdomen/Pelvis CT 06/05/16 0000 Signed Impressions: Service Date/Time: May 22:13 - CONCLUSION: Minimal fluid in the pelvis, otherwise unremarkable. Cynthia Guardado MD Chest X-Ray 06/04/16 0000 Signed Impressions: Service Date/Time: Saturday, June 04, 2016 21:23 - CONCLUSION: No acute disease. Kilo Cotto MD Lumbar Puncture Fluoroscopy 05/23/16 0000 Signed Impressions: Service Date/Time: Monday, May 23, 2016 14:16 - CONCLUSION: Uncomplicated fluoroscopically guided lumbar puncture. Bubba Cherry MD Catheter Placement X-Ray 05/23/16 0000 Signed Impressions: Service Date/Time: Monday, May 23, 2016 14:16 - CONCLUSION: Uncomplicated Donaldson catheter placement as above. Bubba Cherry MD Bone Biopsy CT 05/20/16 0846 Signed Impressions: Service Date/Time: Friday, May 20, 2016 09:13 - CONCLUSION: 1. Uncomplicated CT guided bone marrow aspirate. 2. Uncomplicated CT guided bone marrow biopsy. Yazan Saucedo MD Head CT 05/20/16 0000 Signed Impressions: Service Date/Time: Friday, May 20, 2016 15:16 - CONCLUSION: Normal examination for a patient of this age. No significant change has occurred. Emilio Thomas MD Chest CT 05/17/16 0000 Signed Impressions: Service Date/Time: Tuesday, May 17, 2016 15:14 - CONCLUSION: 1. 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 There are trace to very small bilateral pleural effusions and mild cardiomegaly noted. 2. No lobar consolidation. 3. Upper limits of normal to mildly enlarged mediastinal and bilateral hilar lymph nodes, nonspecific but presumably reactive. Bravo Mendez MD Physical Exam GENERAL: awake and alert, not in any respiratory distress. SKIN: Warm and dry. Has red papular rash in her back. Petechial rash in her L leg HEENT: Pale conjunctivae, no petechia or hemorrhage. No scleral icterus. Moist oral mucosa. No lesions noted NECK: Supple, nontender, no meningeal signs. CARDIOVASCULAR: Regular rate and rhythm without murmurs, gallops, or rubs. RESPIRATORY: Clear to auscultation. Breath sounds equal bilaterally. No wheezes , rales, or rhonchi. Donaldson catheter with no evidence of infection GASTROINTESTINAL: Abdomen soft, nondistended, bowel sounds are present, no tenderness. No rebound or guarding. She has her pain pump RLQ no evidence of infection MUSCULOSKELETAL: Extremities without clubbing, cyanosis, or edema. No calf tenderness. NEURO: Non focal PSYCH: Normal affect, calm and cooperative LINE: Donaldson cath with no evidence of infection Assessment & Plan Remarks IMPRESSION Neutropenic fever, patient with newly Dx AML, on induction chemotherapy - has had mucositis - has cough, CXR negative - UA ok - has diarrhea, R/O C diff - has line AML, on induction chemo Diarrhea, C diff negative, better Headache, new - better - CT head negative RECOMMENDATION Continue cefepime Continue acyclovir for prophylaxis Continue Flagyl Continue vancomycin Continue Micafungin Monitor temps Follow counts Follow cultures Monitor progress Diane Wynne MD Jun 12, 2016 14:42
[2016-06-12] MEDS: MICAFUNGIN INJ 100 MG in SODIUM CHLORIDE 0.9% INJ 100 ML IV SCH (14:57)
[2016-06-12] MEDS: ACETAMINOPHEN 325 MG TAB PO PRN (14:58)
[2016-06-12] MEDS: CARISOPRODOL 350 MG TAB PO PRN (15:05)
[2016-06-12 16:00] VITALS: BP 134/60; PULSE 82; RESP 16; TEMP 97.4; O2SAT 95
[2016-06-12] MEDS: VANCOMYCIN INJ 1,750 MG in SODIUM CHLORID 0.9% 500 ML INJ 500 ML IV SCH (17:28)
[2016-06-12 21:57] VITALS: BP 117/57; PULSE 81; RESP 16; TEMP 99.6; O2SAT 94
[2016-06-13] VITALS (12 sets, daily range): BP systolic 116–143; BP diastolic 55–62; PULSE 73–88; RESP 16–21; TEMP 97.6–101; O2SAT 92–98
[2016-06-13] MEDS: POTASSIUM PHOSPHATE/SODIUM PHOSPHATE 250 MG TAB PO SCH ×5 (00:18→23:20)
[2016-06-13] MEDS: ACETAMINOPHEN 325 MG TAB PO PRN ×4 (00:18→23:20)
[2016-06-13] MEDS: MORPHINE SULFATE 4 MG/ML INJ IV PUSH PRN ×3 (00:19→17:38)
[2016-06-13] MEDS: LACTATED RINGER'S 1000 ML IV SCH (01:15)
[2016-06-13] MEDS: CEFEPIME INJ 2,000 MG in SODIUM CHLORIDE 0.9% INJ 100 ML IV SCH ×3 (03:10→17:39)
[2016-06-13] MEDS: LEVOTHYROXINE SODIUM 25 MCG TAB PO SCH (04:57)
[2016-06-13] MEDS: metroNIDAZOLE 500 MG TAB PO SCH ×3 (04:57→20:42)
[2016-06-13] MEDS: VANCOMYCIN INJ 1,750 MG in SODIUM CHLORID 0.9% 500 ML INJ 500 ML IV SCH ×2 (04:57→17:39)
[2016-06-13] MEDS: ACYCLOVIR 200 MG CAP PO SCH ×3 (04:57→20:42)
[2016-06-13] MEDS: SODIUM CHLOR 0.9% 1000 ML INJ 1,000 ML IV SCH ×2 (04:58→17:30)
[2016-06-13 06:17] LABS: HEMATOCRIT 21.3 % (35.0-46.0); MEAN CELL VOLUME 90.1 FL (80.0-100.0); MEAN CORPUSCULAR HEMOGLOBIN 31.9 PG (27.0-34.0); MEAN CORPUSCULAR HGB CONC 35.5 % (32.0-36.0); RED BLOOD COUNT 2.37 MIL/MM3 (4.00-5.30); RED CELL DISTRIBUTION WIDTH 13.4 % (11.6-17.2); WHITE BLOOD COUNT 0.5 TH/MM3 (4.0-11.0)
[2016-06-13 06:18] LABS: HEMO FLAGS AUTO DIFF
[2016-06-13 06:21] LABS: PLATELET COUNT 15 TH/MM3 (150-450)
[2016-06-13 06:31] LABS: ALT (GPT) 15 U/L (10-53); ANION GAP 7 MEQ/L (5-15); AST (GOT) 12 U/L (15-37); BLOOD UREA NITROGEN 8 MG/DL (7-18); CHLORIDE 111 MEQ/L (98-107); GLOMERULAR FILTRATION RATE 123 ML/MIN (>89); POTASSIUM 3.5 MEQ/L (3.5-5.1); SODIUM (NA) 144 MEQ/L (136-145)
[2016-06-13 06:32] LABS: ALKALINE PHOSPHATASE 44 U/L (45-117); TOTAL BILIRUBIN ADULT 0.3 MG/DL (0.2-1.0)
[2016-06-13 06:55] LABS: WBC DIFF SAMPLE 25
[2016-06-13 06:56] LABS: PLATELET ESTIMATE SMEAR RARE (NORMAL); PLATELET MORPHOLOGY NORMAL (NORMAL); SCAN/DIFF FINAL DIFF MANUAL
[2016-06-13] MEDS ORDERED: LIDOCAINE 1%/EPINEPHrine 1:100,000 SOLN 20 ML VIAL ONE (07:27)
[2016-06-13] MEDS ORDERED: fentaNYL CITRATE 250 MCG/5 ML AMP ONE (07:51)
[2016-06-13] MEDS ORDERED: MIDAZOLAM HCL 5 MG/5 ML VIAL ONE (07:51)
[2016-06-13] MEDS ORDERED: THROMBIN (TOPICAL) 5,000 UNIT VIAL ONE (08:41)
[2016-06-13] MEDS ORDERED: HYDROmorphone HCL PF 2 MG/ML VIAL ONE (08:48)
[2016-06-13] MEDS: GABAPENTIN 300 MG CAP PO SCH ×3 (09:00→17:39)
[2016-06-13] MEDS: SODIUM CHLORIDE 0.9% FLUSH 5 ML FLUSH IV SCH ×2 (09:00→19:32)
[2016-06-13] MEDS: NYSTAT/DIPHENHY/LIDO MOUTHWASH (Adult) 120ML SWISH-SWAL SCH ×2 (09:00→12:02)
[2016-06-13] MEDS: SODIUM CHLORIDE 0.9% FLUSH 5 ML FLUSH IVF SCH (09:00)
[2016-06-13] MEDS ORDERED: GELATIN 12 MM/7 MM FOAM ONE (09:33)
[2016-06-13] MEDS ORDERED: diphenhydrAMINE HCL 25 MG CAP PO PRN ×2 (10:00→12:00)
[2016-06-13] MEDS ORDERED: SODIUM CHLOR 0.9% 250 ML INJ 250 ML IV ONE ×2 (10:00→12:00)
[2016-06-13] MEDS ORDERED: ACETAMINOPHEN 325 MG TAB PO PRN ×2 (10:00→12:00)
[2016-06-13 10:07] LABS: BONE MARROW PROCESSING COMPLETE; IRON STAIN DONE; JENNER GIEMSA STAIN DONE
[2016-06-13] MEDS: DIAZEPAM 10 MG TAB PO SCH ×2 (11:33→19:32)
[2016-06-13] MEDS: FAMOTIDINE 20 MG TAB PO SCH ×2 (11:33→19:32)
[2016-06-13] MEDS: PANTOPRAZOLE SOD 40 MG DELAYED RELEASE TAB PO SCH (11:33)
[2016-06-13] MEDS: ALLOPURINOL 300 MG TAB PO SCH (11:34)
[2016-06-13] MEDS: POTASSIUM CHLORIDE 10 MEQ CAP PO SCH (11:34)
[2016-06-13] MEDS: FUROSEMIDE 20 MG TAB PO SCH (11:34)
--- NOTE | 2016-06-13 12:02 | PD.ONC.PN ---
Subjective Subjective Remarks Tmax 100.3 overnight. Patient reported she felt febrile last night with sweating and chills. She otherwise feels quite well today. Denying nausea or dizziness today. Objective Data Date Time Temp Pulse Resp B/P Pulse Ox O2 Delivery O2 Flow Rate FiO2 06/13/16 10:11 82 21 124/59 94 06/13/16 09:41 84 20 143/59 92 06/13/16 09:11 98.9 88 19 142/55 95 06/13/16 04:00 99.3 80 16 117/56 94 06/13/16 00:00 100.3 83 16 116/58 95 06/12/16 21:57 99.6 81 16 117/57 94 06/12/16 16:00 97.4 82 16 134/60 95 06/12/16 12:00 99.4 81 18 121/60 94 06/13/16 06/13/16 06/13/16 07:00 15:00 23:00 Intake Total 710 ml Balance 710 ml Result Diagram: 06/13/16 0500 06/13/16 0500 Laboratory Results Laboratory Tests Test 06/13/16 06/13/16 05:00 10:25 White Blood Count 0.5 TH/MM3 Red Blood Count 2.37 MIL/MM3 Hemoglobin 7.6 GM/DL Hematocrit 21.3 % Mean Corpuscular Volume 90.1 FL Mean Corpuscular Hemoglobin 31.9 PG Mean Corpuscular Hemoglobin 35.5 % Concent Red Cell Distribution Width 13.4 % Platelet Count 15 TH/MM3 Mean Platelet Volume 7.8 FL Neutrophils (%) (Auto) % Lymphocytes (%) (Auto) % Monocytes (%) (Auto) % Eosinophils (%) (Auto) % Basophils (%) (Auto) % Neutrophils # (Auto) TH/MM3 Lymphocytes # (Auto) TH/MM3 Monocytes # (Auto) TH/MM3 Eosinophils # (Auto) TH/MM3 Basophils # (Auto) TH/MM3 CBC Comment AUTO DIFF Differential Total Cells 25 Counted Lymphocytes % 100 % Differential Comment FINAL DIFF MANUAL Platelet Estimate RARE Platelet Morphology Comment NORMAL Sodium Level 144 MEQ/L Potassium Level 3.5 MEQ/L Chloride Level 111 MEQ/L Carbon Dioxide Level 26.0 MEQ/L Anion Gap 7 MEQ/L Blood Urea Nitrogen 8 MG/DL Creatinine 0.51 MG/DL Estimat Glomerular Filtration 123 ML/MIN Rate Random Glucose 103 MG/DL Calcium Level 7.7 MG/DL Phosphorus Level 2.1 MG/DL Magnesium Level 2.0 MG/DL Total Bilirubin 0.3 MG/DL Aspartate Amino Transf 12 U/L (AST/SGOT) Alanine Aminotransferase 15 U/L (ALT/SGPT) Alkaline Phosphatase 44 U/L Total Protein 5.6 GM/DL Albumin 2.3 GM/DL Blood Bank Comment Culture Results Microbiology Date/Time Procedure Status Source Growth 06/13/16 00:50 Aerobic Blood Culture Received Blood Line Pending 06/13/16 00:50 Anaerobic Blood Culture Received Blood Line Pending 06/13/16 02:28 Aerobic Blood Culture Received Blood Peripheral Pending 06/13/16 02:28 Anaerobic Blood Culture Received Blood Peripheral Pending Administered Medications Medications (Trade) Dose Ordered Sig/Prashant Route PRN Reason Start Time Stop Time Status Last Admin Dose Admin Carisoprodol (Soma) 350 mg TID PRN PO PAIN 05/16/16 17:30 06/12/16 15:05 Furosemide (Lasix) 20 mg DAILY PO 05/17/16 09:00 06/13/16 11:34 Gabapentin (Neurontin) 300 mg TID PO 05/16/16 18:00 06/13/16 11:35 Levothyroxine Sodium (Synthroid) 25 mcg DAILY@06 PO 05/17/16 06:00 06/13/16 04:57 Potassium Chloride (KCl) 10 meq DAILY PO 05/17/16 09:00 06/13/16 11:34 Famotidine (Pepcid) 20 mg BID PO 05/16/16 21:00 06/13/16 11:33 IV Flush (NS Flush) 2 ml BID IV 05/16/16 21:00 06/11/16 08:42 Ondansetron HCl (Zofran Inj) 4 mg Q6H PRN IV NAUSEA 05/16/16 17:45 06/11/16 08:42 Acetaminophen (Tylenol) 650 mg Q6HR PRN PO headache 05/17/16 06:30 06/13/16 11:34 Oxycodone/ Acetaminophen (Percocet 5-325 Mg) 1 tab Q4H PRN PO pain 1-5 05/20/16 10:00 06/11/16 02:18 Pantoprazole Sodium (Protonix) 40 mg DAILY PO 05/22/16 09:00 06/13/16 11:33 Oxycodone HCl (Roxicodone) 10 mg Q4H PRN PO pain 6-10 05/21/16 16:00 06/13/16 11:33 IV Flush (NS Flush) DAILY IVF 05/24/16 09:00 06/11/16 08:45 Heparin Sodium (Porcine) (Heparin Central Flush) DAILY IVF 05/24/16 09:00 06/13/16 11:35 IV Flush (NS Flush) UNSCH PRN IVF SEE PROTOCOL 05/23/16 15:30 06/04/16 04:31 Heparin Sodium (Porcine) (Heparin Central Flush) UNSCH PRN IVF SEE PROTOCOL 05/23/16 15:30 06/02/16 04:01 Docusate Sodium (Colace) 100 mg BID PO 05/24/16 11:00 Hold 06/05/16 07:58 Polyethylene Glycol 17 gm 17 gm DAILY PO 05/25/16 14:30 Hold 06/04/16 08:27 Sodium Chloride (NS 1000 ml Inj) 1,000 ml @ 100 mls/hr Q10H IV 05/26/16 09:30 06/13/16 04:58 Allopurinol (Zyloprim) 300 mg DAILY PO 05/26/16 09:30 06/13/16 11:34 Morphine Sulfate (Morphine Inj) 2 mg Q2HR PRN IV PUSH SEVERE BREAKTHROUGH PAIN 05/27/16 08:45 06/13/16 07:43 Lactulose (Lactulose Liq) 30 ml DAILY PO 05/27/16 09:00 Hold 06/05/16 07:57 Diazepam (Valium) 10 mg Q12HR PO 05/28/16 09:00 06/13/16 11:33 Temazepam (Restoril) 15 mg HS PRN PO SLEEP 05/28/16 08:00 06/01/16 22:23 Multi-Ingredient Mouthwash/Gargle (Magic Mouthwash Adult Liq) 5 ml QID SWISH-SWAL 06/03/16 09:00 06/11/16 08:45 Acyclovir 400 mg 400 mg Q8HR PO 06/03/16 14:00 06/13/16 04:57 Cefepime HCl/ Sodium Chloride (Maxipime Inj/NS Inj) 100 ml @ 200 mls/hr Q8H IV 06/05/16 18:00 06/13/16 11:33 Metronidazole (Flagyl) 500 mg Q8HR PO 06/05/16 14:00 06/13/16 04:57 Loperamide HCl 2 mg 2 mg UNSCH PRN PO DIARRHEA 06/09/16 11:15 06/12/16 14:58 Micafungin Sodium 100 mg/Sodium Chloride 100 ml @ 100 mls/hr Q24H IV 06/10/16 16:00 06/12/16 14:57 Vancomycin HCl/ Sodium Chloride (Vancomycin Inj/ NS 500 ml Inj) 517.5 ml @ 250 mls/hr Q12H IV 06/12/16 18:00 06/13/16 04:57 Potassium Phos/ Sodium Phos (K-Phos Neutral) 250 mg Q6HR PO 06/12/16 12:00 06/13/16 11:34 Diphenhydramine HCl (Benadryl) 25 mg Q4H PRN PO SEE LABEL COMMENTS 06/13/16 10:00 06/13/16 14:01 06/13/16 11:34 Objective Remarks GENERAL: Middle aged female, sitting up in bed. She is happy and cheerful today. The room is dark, as she states it hurts her eyes. SKIN: Warm and dry. Donaldson catheter, site clean. HEAD: Normocephalic. EYES: No injection or drainage. NECK: Supple, trachea midline. CARDIOVASCULAR: Regular rate and rhythm. RESPIRATORY: Breath sounds equal bilaterally. No accessory muscle use. GASTROINTESTINAL: Abdomen soft, non-tender. no masses. EXTREMITIES: No cyanosis. no edema. NEUROLOGICAL: AO x 3. normal speech. moving all extremities. Assessment/Plan Problem List: (1) Rectal bleed Status: Resolved Plan: -- Controlled. No new bleeding. EGD/colonoscopy on 05/20/15 showed gastritis, irregular Z line and rectal nodule. Path report negative for malignancy. -- Had hemorrhoid surgery three weeks prior to admission with Dr. Schwartz. (2) AML (acute myeloid leukemia) Status: Acute Plan: 06/13/16: D18. BMB today. no nausea. stable. 06/12/16:D17: Intermittent headache. Blood counts stable. Bone marrow biopsy tomorrow. 06/11/16: D16. Doing well today. Counts stable. Headache improved; CT brain negative. Will plan for bone marrow biopsy with IR on Thursday. 06/10/16: D15. 1 unit plts. dizzy w/ headache. CT brain pending 06/09/16:D14. 2 units pRBC today. 06/08/16: No issues overnight. Plt's are low at 11,000. Likely will drop again tomorrow, so we will transfuse x1 dose today. No bleeding. 06/07/16: Afebrile. Neutropenic precautions continue. 06/06/16: afebrile overnight. continue abx per ID. pain pump refilled. 06/05/16: spiked fever overnight. started on Cefepime. Levaquin stopped. ID consulted. CT ab/pelvis negative 06/04/16: D9. 1 unit plt 06/03/16: D8 chemo finishes late tonight. started on acyclovir/diflucan/levaquin for prophylaxis. 06/01/16: D6. nauseated. otherwise no events. continue chemo. 05/31/16:D5. no events. 05/30/16: D4 chemotherapy. no transfusion today. 05/29/16: D3 chemotherapy. Tolerated well Blood counts trending lower. Transfuse PRBC 2U. CSF cytology negative. 05/28/16: Tolerated chemo well, no significant side effect. Blood counts started to trend down. 05/27/16: D1. Albina-C + Idarubicin. AML w/ intermediate risk cytogenetics. FLT3 is pending. (3) Pancytopenia Status: Acute Plan: transfuse for platelets less than 10k and a Hgb of less than 7. (4) presence of pain pump Status: Chronic Plan: --patient with intrathecal pain pump --managed by Dr. Omer outpatient --pain pump refilled on 06/06/16 Assessment 61 y/o female with pancytopenia, suspected AML Plan 1. 1 unit platelets, 1 unit prbc 2. Continue Abx per ID. 3. bone marrow biopsy today 4. discussed waiting on bone marrow biopsy results. Attending Statement The exam, history, and the medical decision-making described in the above note were completed with the assistance of the mid-level provider. I reviewed and agree with the findings presented. I attest that I had a [id number] encounter with the patient on the same day, and personally performed and documented my assessment and findings in the medical record. Headache has resolved. Will transfuse PRBC/platelet. Bone marrow biopsy today. Discussed with her sister. Problem Qualifiers (1) AML (acute myeloid leukemia): Qualified Code: C92.00 - Acute myeloid leukemia not having achieved remission Radha Lawrence Jun 13, 2016 12:02 Ryan Tripp MD Jun 13, 2016 18:05
--- NOTE | 2016-06-13 13:28 | RADRPT ---
EXAM DATE/TIME: 06/13/2016 08:35 [facility] COMPARISON: CT NEEDLE BIOPSY BONE MARROW, May 20, 2016, 9:13. INDICATIONS : Acute myeloid leukemia. SEDATION TIME: 30 minutes BIOPSY SITE: Right ilium MEDICATION(S): 1.) 5 mg midazolam (Versed) IV 2.) 250 mcg fentanyl (Sublimaze) IV 3.) 1 mg hydromorphone (Dilaudid) IV DEVICE(S): 1.) Gelfoam 2.) 12 gauge Bone marrow biopsy needle MEDICAL HISTORY : Pancytopenia. SURGICAL HISTORY : Lumbar surgery. Pain stimulator. ENCOUNTER: Initial ACUITY: 1 day PAIN SCORE: 0/10 LOCATION: Right pelvis A total of one core specimen(s) were obtained and sent to the laboratory for pathologic evaluation. PROCEDURE: 1. CT guided bone marrow biopsy. 2. Conscious sedation with continuous EKG and oximetry monitoring. 3. EKG and oximetry remained stable throughout the procedure. Prior to the procedure informed consent was obtained. Any appropriate prior imaging studies were rev iewed. The site was prepped in a sterile fashion. Full sterile technique was used, including cap, mask, primo rile gloves and gown and a large sterile sheet. Hand hygiene and 2% chlorhexidine and/or betadine/al cohol prep was utilized per protocol for cutaneous antisepsis. The skin and subcutaneous tissues wer e infiltrated with local anesthetic solution. With CT guidance the previously identified target was localized. Biopsy was performed using the presc ribed needle as above. Following biopsy marrow aspiration was performed with repeat puncture. Adequa te hemostasis was obtained with compression at the puncture site. Follow-up CT scan reveals no hemorrhage. Conscious sedation was performed with the prescribed dosages and duration as above. The patient katrina ated the procedure well and there were no complications. EKG and oximetry remained stable throughout the procedure. The patient was sent to Radiology Outpatient Unit in stable condition. CONCLUSION: 1. Uncomplicated CT guided bone marrow aspirate. 2. Uncomplicated CT guided bone marrow biopsy. Juan Carlos Cherry MD FACR on June 13, 2016 at 13:26 Board Certified Radiologist. This report was verified electronically.
--- NOTE | 2016-06-13 16:11 | HHI.IDPN ---
Subjective Subjective Remarks Notes reviewed Still with occ low grade temps Remains neutropenic Overall feels better Nothing new on C/S Had bone marrow biopsy today Antibiotics Vancomycin Cefepime Flagyl Micafungin Lines Donaldson R Past Medical History Hypothyroidism GERD Chronic back pain Peripheral edema Hemorrhoids Past Surgical History Back and neck surgery Rotator cuff surgery Pain pump placement on the right lower abdomen Hemorrhoidectomy Allergies: Coded Allergies: No Known Allergies (Verified , 05/16/16) Objective . Vital Signs Date Time Temp Pulse Resp B/P Pulse Ox O2 Delivery O2 Flow Rate FiO2 06/13/16 13:01 97.6 73 16 120/61 98 06/13/16 10:11 82 21 124/59 94 06/13/16 09:41 84 20 143/59 92 06/13/16 09:11 98.9 88 19 142/55 95 06/13/16 04:00 99.3 80 16 117/56 94 06/13/16 00:00 100.3 83 16 116/58 95 06/12/16 21:57 99.6 81 16 117/57 94 06/12/16 06/12/16 06/13/16 15:00 23:00 07:00 Intake Total 2452 ml 240 ml 710 ml Balance 2452 ml 240 ml 710 ml Intake Oral 960 ml 240 ml 710 ml IV Total 1492 ml # Voids 7 2 # Bowel Movements 5 0 . Laboratory Tests Test 06/12/16 06/13/16 06:30 05:00 White Blood Count 0.5 TH/MM3 0.5 TH/MM3 Red Blood Count 2.62 MIL/MM3 2.37 MIL/MM3 Hemoglobin 8.4 GM/DL 7.6 GM/DL Hematocrit 23.4 % 21.3 % Mean Corpuscular Volume 89.4 FL 90.1 FL Mean Corpuscular Hemoglobin 32.0 PG 31.9 PG Mean Corpuscular Hemoglobin 35.8 % 35.5 % Concent Red Cell Distribution Width 13.6 % 13.4 % Platelet Count 23 TH/MM3 15 TH/MM3 Mean Platelet Volume 8.4 FL 7.8 FL Neutrophils (%) (Auto) % % Lymphocytes (%) (Auto) % % Monocytes (%) (Auto) % % Eosinophils (%) (Auto) % % Basophils (%) (Auto) % % Neutrophils # (Auto) TH/MM3 TH/MM3 Lymphocytes # (Auto) TH/MM3 TH/MM3 Monocytes # (Auto) TH/MM3 TH/MM3 Eosinophils # (Auto) TH/MM3 TH/MM3 Basophils # (Auto) TH/MM3 TH/MM3 CBC Comment AUTO DIFF AUTO DIFF Differential Total Cells 10 25 Counted Band Neutrophils % 10 % Lymphocytes % 90 % 100 % Neutrophils # (Manual) 0.1 TH/MM3 Differential Comment FINAL DIFF FINAL DIFF MANUAL MANUAL Platelet Estimate LOW RARE Platelet Morphology Comment ENLARGED NORMAL Laboratory Tests Test 06/12/16 06/13/16 06:30 05:00 Sodium Level 137 MEQ/L 144 MEQ/L Potassium Level 3.3 MEQ/L 3.5 MEQ/L Chloride Level 106 MEQ/L 111 MEQ/L Carbon Dioxide Level 24.9 MEQ/L 26.0 MEQ/L Anion Gap 6 MEQ/L 7 MEQ/L Blood Urea Nitrogen 6 MG/DL 8 MG/DL Creatinine 0.52 MG/DL 0.51 MG/DL Estimat Glomerular Filtration 120 ML/MIN 123 ML/MIN Rate Random Glucose 102 MG/DL 103 MG/DL Calcium Level 7.7 MG/DL 7.7 MG/DL Phosphorus Level 1.2 MG/DL 2.1 MG/DL Magnesium Level 1.9 MG/DL 2.0 MG/DL Total Bilirubin 0.5 MG/DL 0.3 MG/DL Aspartate Amino Transf 8 U/L 12 U/L (AST/SGOT) Alanine Aminotransferase 13 U/L 15 U/L (ALT/SGPT) Alkaline Phosphatase 44 U/L 44 U/L Total Protein 5.7 GM/DL 5.6 GM/DL Albumin 2.3 GM/DL 2.3 GM/DL Microbiology Date/Time Procedure Status Source Growth 06/13/16 00:50 Aerobic Blood Culture Received Blood Line Pending 06/13/16 00:50 Anaerobic Blood Culture Received Blood Line Pending 06/13/16 02:28 Aerobic Blood Culture Received Blood Peripheral Pending 06/13/16 02:28 Anaerobic Blood Culture Received Blood Peripheral Pending Imaging Abdomen/Pelvis CT 06/05/16 0000 Signed Impressions: Service Date/Time: May 22:13 - CONCLUSION: Minimal fluid in the pelvis, otherwise unremarkable. Cynthia Guardado MD Chest X-Ray 06/04/16 0000 Signed Impressions: Service Date/Time: Saturday, June 04, 2016 21:23 - CONCLUSION: No acute disease. Kilo Cotto MD Lumbar Puncture Fluoroscopy 05/23/16 0000 Signed Impressions: Service Date/Time: Monday, May 23, 2016 14:16 - CONCLUSION: Uncomplicated fluoroscopically guided lumbar puncture. Bubba Cherry MD Catheter Placement X-Ray 05/23/16 0000 Signed Impressions: Service Date/Time: Monday, May 23, 2016 14:16 - CONCLUSION: Uncomplicated Donaldson catheter placement as above. Bubba Cherry MD Bone Biopsy CT 05/20/16 0846 Signed Impressions: Service Date/Time: Friday, May 20, 2016 09:13 - CONCLUSION: 1. Uncomplicated CT guided bone marrow aspirate. 2. Uncomplicated CT guided bone marrow biopsy. Yazan Saucedo MD Head CT 05/20/16 0000 Signed Impressions: Service Date/Time: Friday, May 20, 2016 15:16 - CONCLUSION: Normal examination for a patient of this age. No significant change has occurred. Emilio Thomas MD Chest CT 05/17/16 0000 Signed Impressions: Service Date/Time: Tuesday, May 17, 2016 15:14 - CONCLUSION: 1. 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 There are trace to very small bilateral pleural effusions and mild cardiomegaly noted. 2. No lobar consolidation. 3. Upper limits of normal to mildly enlarged mediastinal and bilateral hilar lymph nodes, nonspecific but presumably reactive. Bravo Mendez MD Physical Exam GENERAL: awake and alert, not in any respiratory distress. SKIN: Warm and dry. Has stable red papular rash in her back. Petechial rash in her L leg HEENT: Pale conjunctivae. No scleral icterus. Moist oral mucosa. No lesions noted NECK: Supple, nontender, no meningeal signs. CARDIOVASCULAR: Regular rate and rhythm without murmurs, gallops, or rubs. RESPIRATORY: Clear to auscultation. Donaldson catheter with no evidence of infection GASTROINTESTINAL: Abdomen soft, nondistended, bowel sounds are present, no tenderness. No rebound or guarding. She has her pain pump RLQ no evidence of infection MUSCULOSKELETAL: Extremities without clubbing, cyanosis, or edema. No calf tenderness. NEURO: Non focal PSYCH: Normal affect, calm and cooperative LINE: Donaldson cath with no evidence of infection Assessment & Plan Remarks IMPRESSION Neutropenic fever, patient with newly Dx AML, on induction chemotherapy - has had mucositis - has cough, better, CXR negative - UA ok - has diarrhea, C diff neg - has line - temps low grade AML, on induction chemo Diarrhea, C diff negative, better Headache, new - better - CT head negative RECOMMENDATION Continue cefepime Continue acyclovir for prophylaxis Continue Flagyl Continue vancomycin Continue Micafungin Monitor temps Follow counts Follow cultures Monitor progress Diane Wynne MD Jun 13, 2016 16:11
[2016-06-13] MEDS: MICAFUNGIN INJ 100 MG in SODIUM CHLORIDE 0.9% INJ 100 ML IV SCH (16:20)
[2016-06-13] MEDS: LOPERAMIDE HCL 2 MG CAP PO PRN ×2 (17:42→20:42)
--- NOTE | 2016-06-13 17:49 | HHI.PR ---
Subjective Remarks hemoglobin and platelets trending down sp bone marrow biopsy today feels very tired still had a temp with a Tmax of 100.3 c/o diarrhea denies sob denies cough Objective Vitals Vital Signs Date Time Temp Pulse Resp B/P Pulse Ox O2 Delivery O2 Flow Rate FiO2 06/13/16 16:00 98.2 76 18 142/62 96 06/13/16 13:01 97.6 73 16 120/61 98 06/13/16 10:11 82 21 124/59 94 06/13/16 09:41 84 20 143/59 92 06/13/16 09:11 98.9 88 19 142/55 95 06/13/16 04:00 99.3 80 16 117/56 94 06/13/16 00:00 100.3 83 16 116/58 95 06/12/16 21:57 99.6 81 16 117/57 94 I/O 06/12/16 06/12/16 06/12/16 06/13/16 06/13/16 06/13/16 07:00 15:00 23:00 07:00 15:00 23:00 Intake Total 360 ml 2452 ml 240 ml 710 ml Output Total 2 ml Balance 358 ml 2452 ml 240 ml 710 ml Intake Oral 360 ml 960 ml 240 ml 710 ml IV Total 1492 ml Output Urine Total 2 ml # Voids 7 2 # Bowel Movements 0 5 0 Result Diagram: 06/13/16 0500 06/13/16 0500 Imaging Last Impressions Bone Biopsy CT 06/13/16 0000 Signed Impressions: Service Date/Time: Monday, June 13, 2016 08:35 - CONCLUSION: 1. Uncomplicated CT guided bone marrow aspirate. 2. Uncomplicated CT guided bone marrow biopsy. Juan Carlos Cherry MD FACR Head CT 06/10/16 0000 Signed Impressions: Service Date/Time: Friday, June 10, 2016 14:56 - CONCLUSION: Stable noncontrast head CT. No acute intracranial abnormality is identified. Bravo Jackman MD Abdomen/Pelvis CT 06/05/16 0000 Signed Impressions: Service Date/Time: May 22:13 - CONCLUSION: Minimal fluid in the pelvis, otherwise unremarkable. Cynthia Guardado MD Chest X-Ray 06/04/16 0000 Signed Impressions: Service Date/Time: Saturday, June 04, 2016 21:23 - CONCLUSION: No acute disease. Kilo Cotto MD Lumbar Puncture Fluoroscopy 05/23/16 0000 Signed Impressions: Service Date/Time: Monday, May 23, 2016 14:16 - CONCLUSION: Uncomplicated fluoroscopically guided lumbar puncture. Bubba Cherry MD Catheter Placement X-Ray 05/23/16 0000 Signed Impressions: Service Date/Time: Monday, May 23, 2016 14:16 - CONCLUSION: Uncomplicated Donaldson catheter placement as above. Bubba Cherry MD Chest CT 05/17/16 0000 Signed Impressions: Service Date/Time: Tuesday, May 17, 2016 15:14 - CONCLUSION: 1. 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 There are trace to very small bilateral pleural effusions and mild cardiomegaly noted. 2. No lobar consolidation. 3. Upper limits of normal to mildly enlarged mediastinal and bilateral hilar lymph nodes, nonspecific but presumably reactive. Bravo Mendez MD Objective Remarks GENERAL: This is a well-nourished, well-developed patient, in no apparent distress. HEENT: NC, AT. Jaw pain upon palpation. Pale conjunctiva CARDIOVASCULAR: Regular rate and rhythm. Grade 2 systolic murmur appreciated. RESPIRATORY: CTAB. No W/R/R. GASTROINTESTINAL: Abdomen soft,non tender , mildly distended with hypoactive bowel sounds. Pain pump in RLQ. MUSCULOSKELETAL: Extremities without clubbing, cyanosis, or edema. NEURO: Alert & Oriented x4 to person, place, time, situation. Moves all ext x4. Normal finger to nose test. EOMI. PSYCH: Mood and affect appropriate. Procedures EGD/ colonoscopy Bone marrow biopsy Medications and IVs Current Medications Medications (Trade) Dose Ordered Sig/Prashant Route Start Time Stop Time Status Last Admin (Soma) 350 mg TID PRN PO 05/16/16 17:30 06/12/16 15:05 (Lasix) 20 mg DAILY PO 05/17/16 09:00 06/13/16 11:34 (Neurontin) 300 mg TID PO 05/16/16 18:00 06/13/16 11:35 (Synthroid) 25 mcg DAILY@06 PO 05/17/16 06:00 06/13/16 04:57 (KCl) 10 meq DAILY PO 05/17/16 09:00 06/13/16 11:34 (Pepcid) 20 mg BID PO 05/16/16 21:00 06/13/16 11:33 (NS Flush) 2 ml UNSCH PRN IV 05/16/16 17:45 (NS Flush) 2 ml BID IV 05/16/16 21:00 06/11/16 08:42 (Zofran Inj) 4 mg Q6H PRN IV 05/16/16 17:45 06/11/16 08:42 Acetaminophen 650 mg 650 mg Q6HR PRN PO 05/17/16 06:30 06/13/16 11:34 (Lr 1000 ml Inj) 1,000 ml @ 30 mls/hr Q24H IV 05/20/16 01:15 (Percocet 5-325 Mg) 1 tab Q4H PRN PO 05/20/16 10:00 06/11/16 02:18 (Canasa Supp) 1,000 mg HS RECTAL 05/20/16 21:00 Hold (Protonix) 40 mg DAILY PO 05/22/16 09:00 06/13/16 11:33 (Roxicodone) 10 mg Q4H PRN PO 05/21/16 16:00 06/13/16 16:20 (NS Flush) DAILY IVF 05/24/16 09:00 06/11/16 08:45 (Heparin Central Flush) DAILY IVF 05/24/16 09:00 06/13/16 11:35 (NS Flush) UNSCH PRN IVF 05/23/16 15:30 06/04/16 04:31 (Heparin Central Flush) UNSCH PRN IVF 05/23/16 15:30 06/02/16 04:01 (Colace) 100 mg BID PO 05/24/16 11:00 Hold 06/05/16 07:58 (Miralax) 17 gm DAILY PO 05/25/16 14:30 Hold 06/04/16 08:27 Lactic Acid 1 applic 1 applic BID PRN TOPICAL 05/25/16 14:30 (NS 1000 ml Inj) 1,000 ml @ 100 mls/hr Q10H IV 05/26/16 09:30 06/13/16 04:58 (Zyloprim) 300 mg DAILY PO 05/26/16 09:30 06/13/16 11:34 (Morphine Inj) 2 mg Q2HR PRN IV PUSH 05/27/16 08:45 06/13/16 07:43 (Lactulose Liq) 30 ml DAILY PO 05/27/16 09:00 Hold 06/05/16 07:57 (Valium) 10 mg Q12HR PO 05/28/16 09:00 06/13/16 11:33 (Restoril) 15 mg HS PRN PO 05/28/16 08:00 06/01/16 22:23 Acyclovir 400 mg 400 mg Q8HR PO 06/03/16 14:00 06/13/16 12:48 Cefepime HCl 2000 mg/Sodium Chloride 100 ml @ 200 mls/hr Q8H IV 06/05/16 18:00 06/13/16 11:33 (Vancomycin Consult Pharmacy) 0 ml @ 0 mls/hr UNSCH OTHER 06/05/16 13:45 (Flagyl) 500 mg Q8HR PO 06/05/16 14:00 06/13/16 12:48 Patient Own Medication PT OWN MED: HYDROMORPHONE 40 MG/... UNSCH OTHER 06/06/16 11:00 Loperamide HCl 2 mg 2 mg UNSCH PRN PO 06/09/16 11:15 06/12/16 14:58 Micafungin Sodium 100 mg/Sodium Chloride 100 ml @ 100 mls/hr Q24H IV 06/10/16 16:00 06/13/16 16:20 (Vancomycin Inj/ NS 500 ml Inj) 517.5 ml @ 250 mls/hr Q12H IV 06/12/16 18:00 06/13/16 04:57 Miscellaneous Information SPECIFIC LAB TO BE DRAWN:VANCOMYCIN TROUGH DATE TO... ONCE ONCE XX 06/14/16 05:45 06/14/16 05:46 Potassium Phos/ Sodium Phos 250 mg 250 mg Q6HR PO 06/12/16 12:00 06/13/16 11:34 Sodium Chloride 250 ml @ 15 mls/hr ONCE ONCE IV 06/13/16 10:00 06/14/16 02:39 06/13/16 12:48 (NS 250 ml Inj) 250 ml @ 15 mls/hr ONCE ONCE IV 06/13/16 12:00 06/14/16 04:39 06/13/16 12:48 Urinary Catheter: No Vascular Central Line Catheter: No A/P Problem List: (1) AML (acute myeloid leukemia) ICD Code: C92.00 Status: Acute (2) Neutropenic fever ICD Code: D70.9 Status: Acute (3) Pancytopenia ICD Code: D61.818 Status: Acute (4) Symptomatic anemia ICD Code: D64.9 Status: Resolved (5) UTI (urinary tract infection) ICD Code: N39.0 Status: Resolved (6) GI bleed ICD Code: K92.2 Status: Resolved (7) Anxiety ICD Code: F41.9 Status: Chronic (8) Diarrhea ICD Code: R19.7 Status: Acute (9) Dizziness ICD Code: R42 Status: Resolved (10) Hypophosphatemia ICD Code: E83.39 Status: Acute (11) Moderate protein-calorie malnutrition ICD Code: E44.0 Status: Acute Assessment and Plan (1) AML (acute myeloid leukemia) Plan: As shown on bone marrow biopsy. Medical oncology consulted and following. Patient is status post chemotherapy which will be 2 weeks tomorrow. Status post port placement 05/23. Chemotherapy started 05/27. Patient was treated with IV fluids and allopurinol while on chemotherapy to prevent tumor lysis syndrome which are now discontinued. Hemoglobin being monitored. sp transfusion of 2 units of PRBC on 06/09 ---> hemoglobin remains stable at 9 sp transfusion of 1 unit of platelets on 06/09 - monitor platelets Continue with neutropenic precautions. 06/11 Transfuse for platelets less than 10k and hb less than 7. For BM biopsy by IR on Thursday as per oncology. 06/12 counts are very stable with hemoglobin of 8.4 and platelets 23 and absolute neutrophil count of 0.1. 06/13 hb down to 7.6 and platelets down to 15, patient very fatigued. sp transfusion of 1 unit of prbc and 1 unit of platelets today. Continue to monitor cbc (2) Neutropenic fever Plan: UA positive for Klebsiella pneumonia. Patient still having low-grade fever with a MAXIMUM TEMPERATURE of 99.7. Diarrhea resolved after Imodium. Patient's C. difficile negative. ID consulted. Antibiotics, antifungals and antivirals as per ID recommendations. The patient is currently on IV vancomycin, IV cefepime, oral azithromycin, oral Flagyl, oral acyclovir and oral fluconazole. 06/10 Diflucan changed to Micafungin IV. Zithromax discontinued as per ID. 06/11 continue antibiotics as per ID. 06/13 remains neutropenic. monitor cbc. continue antibiotics as per ID (3) Pancytopenia Plan: Pancytopenia likely secondary to chemotherapy given for AML treatment. Neutrophil count is 0. Platelet is slightly improved from previous days up to 27. Hemoglobin down to 6.8, being transfused 2 units of proper blood cells. Continue to monitor CBC and follow up oncology recommendations. (4) Symptomatic anemia Plan: Patient with tiredness and fatigue. Sp transfusion of 2 units of PRBC. Continue to monitor CBC. Transfuse as per oncology recommendations. transfuse for hb <7 (5) UTI (urinary tract infection) Plan: Continue antibiotics as above and as per ID recommendations. Urine culture grew Klebsiella pneumonia. (6) GI bleed Plan: GI bleed now resolved. Patient had some episodes of rectal bleeding. (7) Anxiety Plan: Continue Valium as needed. seems stable. (8) Diarrhea Plan: Diarrhea initially improved after immodium. However patient c/o diarrhea today. Will order stool studies and c diff. Patient also has some tender ness to palpation over left upper quadrant. 06/12 stool studies pending 06/13 repeat Cdiff negative (9) Dizziness Plan: CT head ordered by oncology 06/10 - No acute disease. Dizziness has now resolved. DVT prophylaxis: SCDs, no chemoprophylaxis given recent rectal bleed. Discharge Planning continue to monitor in the oncology floor. Dc pending clinical improvement - patient still neutropenic and with fevers as well with diarrhea. Problem Qualifiers (1) AML (acute myeloid leukemia): Qualified Code: C92.00 - Acute myeloid leukemia not having achieved remission (2) UTI (urinary tract infection): Qualified Code: N30.00 - Acute cystitis without hematuria (3) GI bleed: Qualified Code: K92.2 - Gastrointestinal hemorrhage, unspecified gastrointestinal hemorrhage type (4) Diarrhea: Qualified Code: R19.7 - Diarrhea, unspecified type Stephen Burkett MD Jun 13, 2016 17:49
[2016-06-13] MEDS ORDERED: diphenhydrAMINE HCL 25 MG CAP PO ONE (21:00)
[2016-06-14] VITALS (7 sets, daily range): BP systolic 126–162; BP diastolic 57–78; PULSE 73–78; RESP 16–18; TEMP 98.5–100.2; O2SAT 92–97
[2016-06-14] MEDS: LACTATED RINGER'S 1000 ML IV SCH (01:15)
[2016-06-14] MEDS: CEFEPIME INJ 2,000 MG in SODIUM CHLORIDE 0.9% INJ 100 ML IV SCH ×3 (02:24→17:02)
[2016-06-14] MEDS: SODIUM CHLOR 0.9% 1000 ML INJ 1,000 ML IV SCH ×3 (02:25→23:47)
[2016-06-14] MEDS: VANCOMYCIN INJ 1,750 MG in SODIUM CHLORID 0.9% 500 ML INJ 500 ML IV SCH (05:14)
[2016-06-14] MEDS: LEVOTHYROXINE SODIUM 25 MCG TAB PO SCH (05:14)
[2016-06-14] MEDS: metroNIDAZOLE 500 MG TAB PO SCH ×3 (05:14→22:19)
[2016-06-14] MEDS: POTASSIUM PHOSPHATE/SODIUM PHOSPHATE 250 MG TAB PO SCH ×4 (05:14→23:47)
[2016-06-14] MEDS: ACYCLOVIR 200 MG CAP PO SCH ×3 (05:15→22:20)
[2016-06-14] MEDS ORDERED: PHARMACY ORDERED LAB XX ONE (05:45)
[2016-06-14 07:05] LABS: HEMATOCRIT 24.2 % (35.0-46.0); MEAN CELL VOLUME 89.1 FL (80.0-100.0); MEAN CORPUSCULAR HEMOGLOBIN 31.9 PG (27.0-34.0); MEAN CORPUSCULAR HGB CONC 35.8 % (32.0-36.0); PLATELET COUNT 24 TH/MM3 (150-450); RED BLOOD COUNT 2.72 MIL/MM3 (4.00-5.30); RED CELL DISTRIBUTION WIDTH 13.7 % (11.6-17.2); WHITE BLOOD COUNT 0.6 TH/MM3 (4.0-11.0)
[2016-06-14 07:11] LABS: ALKALINE PHOSPHATASE 48 U/L (45-117); ALT (GPT) 16 U/L (10-53); ANION GAP 8 MEQ/L (5-15); AST (GOT) 8 U/L (15-37); BICARBONATE 26.3 MEQ/L (21.0-32.0); BLOOD UREA NITROGEN 8 MG/DL (7-18); CHLORIDE 109 MEQ/L (98-107); GLOMERULAR FILTRATION RATE 102 ML/MIN (>89); POTASSIUM 3.2 MEQ/L (3.5-5.1); SODIUM (NA) 143 MEQ/L (136-145); TOTAL BILIRUBIN ADULT 0.7 MG/DL (0.2-1.0)
[2016-06-14 07:30] LABS: HEMO FLAGS AUTO DIFF
--- NOTE | 2016-06-14 07:38 | PD.ONC.PN ---
Subjective Subjective Remarks Tmax 101F. Patient resting comfortably. She has a slight frontal headache this AM, otherwise without complaint. Nurse reported she placed patient on O2 overnight for pulse-ox of 88% while receiving blood, but patient denies ever feeling dyspneic. Objective Data Date Time Temp Pulse Resp B/P Pulse Ox O2 Delivery O2 Flow Rate FiO2 06/14/16 04:00 98.6 76 16 149/64 94 06/14/16 02:00 99.1 73 18 144/66 94 06/14/16 00:00 77 16 131/60 94 06/13/16 23:30 98.9 74 18 123/60 92 06/13/16 23:15 99.3 76 18 122/59 95 06/13/16 22:45 99.8 06/13/16 22:02 99.8 06/13/16 20:00 101.0 80 18 133/60 95 06/13/16 16:00 98.2 76 18 142/62 96 06/13/16 13:01 97.6 73 16 120/61 98 06/13/16 10:11 82 21 124/59 94 06/13/16 09:41 84 20 143/59 92 06/13/16 09:11 98.9 88 19 142/55 95 06/14/16 06/14/16 06/14/16 07:00 15:00 23:00 Intake Total 480 ml Balance 480 ml Result Diagram: 06/14/16 0530 06/14/16 0530 Laboratory Results Laboratory Tests Test 06/13/16 06/13/16 06/14/16 10:25 12:45 05:30 Blood Bank Comment Blood Type O POSITIVE Antibody Screen NEGATIVE Crossmatch Irradiated/Leukocyte-Reduced RBC White Blood Count 0.6 TH/MM3 Red Blood Count 2.72 MIL/MM3 Hemoglobin 8.7 GM/DL Hematocrit 24.2 % Mean Corpuscular Volume 89.1 FL Mean Corpuscular Hemoglobin 31.9 PG Mean Corpuscular Hemoglobin 35.8 % Concent Red Cell Distribution Width 13.7 % Platelet Count 24 TH/MM3 Mean Platelet Volume 8.0 FL Neutrophils (%) (Auto) % Lymphocytes (%) (Auto) % Monocytes (%) (Auto) % Eosinophils (%) (Auto) % Basophils (%) (Auto) % Neutrophils # (Auto) TH/MM3 Lymphocytes # (Auto) TH/MM3 Monocytes # (Auto) TH/MM3 Eosinophils # (Auto) TH/MM3 Basophils # (Auto) TH/MM3 CBC Comment AUTO DIFF Sodium Level 143 MEQ/L Potassium Level 3.2 MEQ/L Chloride Level 109 MEQ/L Carbon Dioxide Level 26.3 MEQ/L Anion Gap 8 MEQ/L Blood Urea Nitrogen 8 MG/DL Creatinine 0.60 MG/DL Estimat Glomerular Filtration 102 ML/MIN Rate Random Glucose 112 MG/DL Calcium Level 7.9 MG/DL Total Bilirubin 0.7 MG/DL Aspartate Amino Transf 8 U/L (AST/SGOT) Alanine Aminotransferase 16 U/L (ALT/SGPT) Alkaline Phosphatase 48 U/L Total Protein 5.8 GM/DL Albumin 2.3 GM/DL Culture Results Microbiology Date/Time Procedure Status Source Growth 06/13/16 00:50 Aerobic Blood Culture Received Blood Line Pending 06/13/16 00:50 Anaerobic Blood Culture Received Blood Line Pending 06/13/16 02:28 Aerobic Blood Culture Received Blood Peripheral Pending 06/13/16 02:28 Anaerobic Blood Culture Received Blood Peripheral Pending Administered Medications Medications (Trade) Dose Ordered Sig/Prashant Route PRN Reason Start Time Stop Time Status Last Admin Dose Admin Carisoprodol (Soma) 350 mg TID PRN PO PAIN 05/16/16 17:30 06/12/16 15:05 Furosemide (Lasix) 20 mg DAILY PO 05/17/16 09:00 06/13/16 11:34 Gabapentin (Neurontin) 300 mg TID PO 05/16/16 18:00 06/13/16 17:39 Levothyroxine Sodium (Synthroid) 25 mcg DAILY@06 PO 05/17/16 06:00 06/14/16 05:14 Potassium Chloride (KCl) 10 meq DAILY PO 05/17/16 09:00 06/13/16 11:34 Famotidine (Pepcid) 20 mg BID PO 05/16/16 21:00 06/13/16 19:32 IV Flush (NS Flush) 2 ml BID IV 05/16/16 21:00 06/11/16 08:42 Ondansetron HCl (Zofran Inj) 4 mg Q6H PRN IV NAUSEA 05/16/16 17:45 06/11/16 08:42 Acetaminophen (Tylenol) 650 mg Q6HR PRN PO headache 05/17/16 06:30 06/13/16 23:20 Oxycodone/ Acetaminophen (Percocet 5-325 Mg) 1 tab Q4H PRN PO pain 1-5 05/20/16 10:00 06/11/16 02:18 Pantoprazole Sodium (Protonix) 40 mg DAILY PO 05/22/16 09:00 06/13/16 11:33 Oxycodone HCl (Roxicodone) 10 mg Q4H PRN PO pain 6-10 05/21/16 16:00 06/14/16 02:25 IV Flush (NS Flush) DAILY IVF 05/24/16 09:00 06/11/16 08:45 Heparin Sodium (Porcine) (Heparin Central Flush) DAILY IVF 05/24/16 09:00 06/13/16 11:35 IV Flush (NS Flush) UNSCH PRN IVF SEE PROTOCOL 05/23/16 15:30 06/04/16 04:31 Heparin Sodium (Porcine) (Heparin Central Flush) UNSCH PRN IVF SEE PROTOCOL 05/23/16 15:30 06/02/16 04:01 Docusate Sodium (Colace) 100 mg BID PO 05/24/16 11:00 Hold 06/05/16 07:58 Polyethylene Glycol 17 gm 17 gm DAILY PO 05/25/16 14:30 Hold 06/04/16 08:27 Sodium Chloride (NS 1000 ml Inj) 1,000 ml @ 100 mls/hr Q10H IV 05/26/16 09:30 06/14/16 02:25 Allopurinol (Zyloprim) 300 mg DAILY PO 05/26/16 09:30 06/13/16 11:34 Morphine Sulfate (Morphine Inj) 2 mg Q2HR PRN IV PUSH SEVERE BREAKTHROUGH PAIN 05/27/16 08:45 06/13/16 17:38 Lactulose (Lactulose Liq) 30 ml DAILY PO 05/27/16 09:00 Hold 06/05/16 07:57 Diazepam (Valium) 10 mg Q12HR PO 05/28/16 09:00 06/13/16 19:32 Temazepam (Restoril) 15 mg HS PRN PO SLEEP 05/28/16 08:00 06/01/16 22:23 Acyclovir 400 mg 400 mg Q8HR PO 06/03/16 14:00 06/14/16 05:15 Cefepime HCl/ Sodium Chloride (Maxipime Inj/NS Inj) 100 ml @ 200 mls/hr Q8H IV 06/05/16 18:00 06/14/16 02:24 Metronidazole (Flagyl) 500 mg Q8HR PO 06/05/16 14:00 06/14/16 05:14 Loperamide HCl 2 mg 2 mg UNSCH PRN PO DIARRHEA 06/09/16 11:15 06/13/16 20:42 Micafungin Sodium 100 mg/Sodium Chloride 100 ml @ 100 mls/hr Q24H IV 06/10/16 16:00 06/13/16 16:20 Vancomycin HCl/ Sodium Chloride (Vancomycin Inj/ NS 500 ml Inj) 517.5 ml @ 250 mls/hr Q12H IV 06/12/16 18:00 06/14/16 05:14 Potassium Phos/ Sodium Phos (K-Phos Neutral) 250 mg Q6HR PO 06/12/16 12:00 06/14/16 05:14 Objective Remarks GENERAL: Middle aged female, lying in bed, sleeping on approach. She awakens as soon as I enter the room. She is pleasant and cheerful. SKIN: Warm and dry. Donaldson catheter, site clean. HEAD: Normocephalic. EYES: No injection or drainage. NECK: Supple, trachea midline. CARDIOVASCULAR: Regular rate and rhythm. RESPIRATORY: Breath sounds equal bilaterally. No accessory muscle use. GASTROINTESTINAL: Abdomen soft, non-tender. no masses. EXTREMITIES: No cyanosis. no edema. NEUROLOGICAL: awake and alert, normal speech. moving all extremities Assessment/Plan Problem List: (1) AML (acute myeloid leukemia) Status: Acute Plan: 06/14/16: D19. no transfusion needed today. mild headache. monitor. Having some diarrhea, C. difficile negative 2. 06/13/16: D18. BMB today. no nausea. stable. 06/12/16:D17: Intermittent headache. Blood counts stable. Bone marrow biopsy tomorrow. 06/11/16: D16. Doing well today. Counts stable. Headache improved; CT brain negative. Will plan for bone marrow biopsy with IR on Thursday. 06/10/16: D15. 1 unit plts. dizzy w/ headache. CT brain pending 06/09/16:D14. 2 units pRBC today. 06/08/16: No issues overnight. Plt's are low at 11,000. Likely will drop again tomorrow, so we will transfuse x1 dose today. No bleeding. 06/07/16: Afebrile. Neutropenic precautions continue. 06/06/16: afebrile overnight. continue abx per ID. pain pump refilled. 06/05/16: spiked fever overnight. started on Cefepime. Levaquin stopped. ID consulted. CT ab/pelvis negative 06/04/16: D9. 1 unit plt 06/03/16: D8 chemo finishes late tonight. started on acyclovir/diflucan/levaquin for prophylaxis. 06/01/16: D6. nauseated. otherwise no events. continue chemo. 05/31/16:D5. no events. 05/30/16: D4 chemotherapy. no transfusion today. 05/29/16: D3 chemotherapy. Tolerated well Blood counts trending lower. Transfuse PRBC 2U. CSF cytology negative. 05/28/16: Tolerated chemo well, no significant side effect. Blood counts started to trend down. 05/27/16: D1. Albina-C + Idarubicin. AML w/ intermediate risk cytogenetics. FLT3 is pending. (2) Pancytopenia Status: Acute Plan: transfuse for platelets less than 10k and a Hgb of less than 7. (3) presence of pain pump Status: Chronic Plan: --patient with intrathecal pain pump --managed by Dr. Omer outpatient --pain pump refilled on 06/06/16 Plan 1. no transfusion 2. Continue antibiotics. 3. continue supportive care 4. monitor O2. Attending Statement The exam, history, and the medical decision-making described in the above note were completed with the assistance of the mid-level provider. I reviewed and agree with the findings presented. I attest that I had a [id number] encounter with the patient on the same day, and personally performed and documented my assessment and findings in the medical record. Mrs. Chawla was seen and examined, medications, labs, vital signs were reviewed. Physical exam was performed, findings summarized in the body of this note. Patient with intermediate risk acute myeloid leukemia; deletion 7, FLT 3 mutation negative. Status post induction systemic chemotherapy with 7+3. Restaging bone marrow biopsy performed on 06/13/2016; results are pending. Clinically, the patient is stable. She did have a low-grade temperature last night; she remains on broad-spectrum antibiotics. For intravenous access she does have a tunneled central venous catheter. She is on supportive transfusions for treatment related cytopenias. Counts yet to recover. Continue ongoing care. Problem Qualifiers (1) AML (acute myeloid leukemia): Qualified Code: C92.00 - Acute myeloid leukemia not having achieved remission Radha Lawrence Jun 14, 2016 07:38 Adal Lyle MD Jun 14, 2016 13:21
[2016-06-14] MEDS: FUROSEMIDE 20 MG TAB PO SCH (08:40)
[2016-06-14] MEDS: DIAZEPAM 10 MG TAB PO SCH ×2 (08:40→20:02)
[2016-06-14] MEDS: GABAPENTIN 300 MG CAP PO SCH ×3 (08:40→17:02)
[2016-06-14] MEDS: ALLOPURINOL 300 MG TAB PO SCH (08:40)
[2016-06-14] MEDS: SODIUM CHLORIDE 0.9% FLUSH 5 ML FLUSH IV SCH ×2 (08:40→20:02)
[2016-06-14] MEDS: PANTOPRAZOLE SOD 40 MG DELAYED RELEASE TAB PO SCH (08:40)
[2016-06-14] MEDS: FAMOTIDINE 20 MG TAB PO SCH ×2 (08:40→20:02)
[2016-06-14] MEDS: SODIUM CHLORIDE 0.9% FLUSH 5 ML FLUSH IVF SCH (08:41)
[2016-06-14] MEDS: POTASSIUM CHLORIDE 10 MEQ CAP PO SCH (08:41)
[2016-06-14] MEDS: LOPERAMIDE HCL 2 MG CAP PO PRN ×3 (08:50→18:03)
[2016-06-14] MEDS ORDERED: POTASSIUM CHLORIDE 10 MEQ CONTROLLED RELEASE TAB PO ONE (09:15)
--- NOTE | 2016-06-14 09:16 | HHI.PR ---
Subjective Remarks Tmax 101 yesterday night no major overnight events patient has no major complaints as per RN patient had saturation of 88% overnight however patient denies any symptoms Denies chills. Patient had diarrhea and in the morning and at night, which goes away after she takes Imodium. Objective Vitals Vital Signs Date Time Temp Pulse Resp B/P Pulse Ox O2 Delivery O2 Flow Rate FiO2 06/14/16 04:00 98.6 76 16 149/64 94 06/14/16 02:00 99.1 73 18 144/66 94 06/14/16 00:00 77 16 131/60 94 06/13/16 23:30 98.9 74 18 123/60 92 06/13/16 23:15 99.3 76 18 122/59 95 06/13/16 22:45 99.8 06/13/16 22:02 99.8 06/13/16 20:00 101.0 80 18 133/60 95 06/13/16 16:00 98.2 76 18 142/62 96 06/13/16 13:01 97.6 73 16 120/61 98 06/13/16 10:11 82 21 124/59 94 06/13/16 09:41 84 20 143/59 92 06/13/16 09:11 98.9 88 19 142/55 95 I/O 06/13/16 06/13/16 06/13/16 06/14/16 06/14/16 06/14/16 07:00 15:00 23:00 07:00 15:00 23:00 Intake Total 710 ml 960 ml 480 ml Balance 710 ml 960 ml 480 ml Intake Oral 710 ml 960 ml 480 ml # Voids 2 7 3 # Bowel Movements 0 2 1 Result Diagram: 06/14/16 0530 06/14/16 0530 Imaging Last Impressions Bone Biopsy CT 06/13/16 0000 Signed Impressions: Service Date/Time: Monday, June 13, 2016 08:35 - CONCLUSION: 1. Uncomplicated CT guided bone marrow aspirate. 2. Uncomplicated CT guided bone marrow biopsy. Juan Carlos Cherry MD FACR Head CT 06/10/16 0000 Signed Impressions: Service Date/Time: Friday, June 10, 2016 14:56 - CONCLUSION: Stable noncontrast head CT. No acute intracranial abnormality is identified. Bravo Jackman MD Abdomen/Pelvis CT 06/05/16 0000 Signed Impressions: Service Date/Time: May 22:13 - CONCLUSION: Minimal fluid in the pelvis, otherwise unremarkable. Cynthia Guardado MD Chest X-Ray 06/04/16 0000 Signed Impressions: Service Date/Time: Saturday, June 04, 2016 21:23 - CONCLUSION: No acute disease. Kilo Cotto MD Lumbar Puncture Fluoroscopy 05/23/16 0000 Signed Impressions: Service Date/Time: Monday, May 23, 2016 14:16 - CONCLUSION: Uncomplicated fluoroscopically guided lumbar puncture. Bubba Cherry MD Catheter Placement X-Ray 05/23/16 0000 Signed Impressions: Service Date/Time: Monday, May 23, 2016 14:16 - CONCLUSION: Uncomplicated Donaldson catheter placement as above. Bubba Cherry MD Chest CT 05/17/16 0000 Signed Impressions: Service Date/Time: Tuesday, May 17, 2016 15:14 - CONCLUSION: 1. 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 There are trace to very small bilateral pleural effusions and mild cardiomegaly noted. 2. No lobar consolidation. 3. Upper limits of normal to mildly enlarged mediastinal and bilateral hilar lymph nodes, nonspecific but presumably reactive. Bravo Mendez MD Objective Remarks GENERAL: This is a well-nourished, well-developed patient, in no apparent distress. HEENT: NC, AT. Jaw pain upon palpation. Pale conjunctiva CARDIOVASCULAR: Regular rate and rhythm. Grade 2 systolic murmur appreciated. RESPIRATORY: CTAB. No W/R/R. GASTROINTESTINAL: Abdomen soft,non tender , mildly distended with hypoactive bowel sounds. Pain pump in RLQ. MUSCULOSKELETAL: Extremities without clubbing, cyanosis, or edema. NEURO: Alert & Oriented x4 to person, place, time, situation. Moves all ext x4. Normal finger to nose test. EOMI. PSYCH: Mood and affect appropriate. Procedures EGD/ colonoscopy Bone marrow biopsy Medications and IVs Current Medications Medications (Trade) Dose Ordered Sig/Prashant Route Start Time Stop Time Status Last Admin (Soma) 350 mg TID PRN PO 05/16/16 17:30 06/12/16 15:05 (Lasix) 20 mg DAILY PO 05/17/16 09:00 06/14/16 08:40 (Neurontin) 300 mg TID PO 05/16/16 18:00 06/14/16 08:40 (Synthroid) 25 mcg DAILY@06 PO 05/17/16 06:00 06/14/16 05:14 (KCl) 10 meq DAILY PO 05/17/16 09:00 06/14/16 08:41 (Pepcid) 20 mg BID PO 05/16/16 21:00 06/14/16 08:40 (NS Flush) 2 ml UNSCH PRN IV 05/16/16 17:45 (NS Flush) 2 ml BID IV 05/16/16 21:00 06/14/16 08:40 (Zofran Inj) 4 mg Q6H PRN IV 05/16/16 17:45 06/11/16 08:42 Acetaminophen 650 mg 650 mg Q6HR PRN PO 05/17/16 06:30 06/13/16 23:20 (Lr 1000 ml Inj) 1,000 ml @ 30 mls/hr Q24H IV 05/20/16 01:15 (Percocet 5-325 Mg) 1 tab Q4H PRN PO 05/20/16 10:00 06/11/16 02:18 (Canasa Supp) 1,000 mg HS RECTAL 05/20/16 21:00 Hold (Protonix) 40 mg DAILY PO 05/22/16 09:00 06/14/16 08:40 (Roxicodone) 10 mg Q4H PRN PO 05/21/16 16:00 06/14/16 08:46 (NS Flush) DAILY IVF 05/24/16 09:00 06/14/16 08:41 (Heparin Central Flush) DAILY IVF 05/24/16 09:00 06/14/16 08:41 (NS Flush) UNSCH PRN IVF 05/23/16 15:30 06/04/16 04:31 (Heparin Central Flush) UNSCH PRN IVF 05/23/16 15:30 06/02/16 04:01 (Colace) 100 mg BID PO 05/24/16 11:00 Hold 06/05/16 07:58 (Miralax) 17 gm DAILY PO 05/25/16 14:30 Hold 06/04/16 08:27 Lactic Acid 1 applic 1 applic BID PRN TOPICAL 05/25/16 14:30 (NS 1000 ml Inj) 1,000 ml @ 100 mls/hr Q10H IV 05/26/16 09:30 06/14/16 02:25 (Zyloprim) 300 mg DAILY PO 05/26/16 09:30 06/14/16 08:40 (Morphine Inj) 2 mg Q2HR PRN IV PUSH 05/27/16 08:45 06/13/16 17:38 (Lactulose Liq) 30 ml DAILY PO 05/27/16 09:00 Hold 06/05/16 07:57 (Valium) 10 mg Q12HR PO 05/28/16 09:00 06/14/16 08:40 (Restoril) 15 mg HS PRN PO 05/28/16 08:00 06/01/16 22:23 Acyclovir 400 mg 400 mg Q8HR PO 06/03/16 14:00 06/14/16 05:15 Cefepime HCl 2000 mg/Sodium Chloride 100 ml @ 200 mls/hr Q8H IV 06/05/16 18:00 06/14/16 02:24 (Vancomycin Consult Pharmacy) 0 ml @ 0 mls/hr UNSCH OTHER 06/05/16 13:45 (Flagyl) 500 mg Q8HR PO 06/05/16 14:00 06/14/16 05:14 Patient Own Medication PT OWN MED: HYDROMORPHONE 40 MG/... UNSCH OTHER 06/06/16 11:00 Loperamide HCl 2 mg 2 mg UNSCH PRN PO 06/09/16 11:15 06/14/16 08:50 Micafungin Sodium 100 mg/Sodium Chloride 100 ml @ 100 mls/hr Q24H IV 06/10/16 16:00 06/13/16 16:20 (Vancomycin Inj/ NS 500 ml Inj) 517.5 ml @ 250 mls/hr Q12H IV 06/12/16 18:00 06/14/16 05:14 (K-Phos Neutral) 250 mg Q6HR PO 06/12/16 12:00 06/14/16 05:14 Urinary Catheter: No A/P Problem List: (1) AML (acute myeloid leukemia) ICD Code: C92.00 Status: Acute (2) Neutropenic fever ICD Code: D70.9 Status: Acute (3) Pancytopenia ICD Code: D61.818 Status: Acute (4) Symptomatic anemia ICD Code: D64.9 Status: Resolved (5) UTI (urinary tract infection) ICD Code: N39.0 Status: Resolved (6) GI bleed ICD Code: K92.2 Status: Resolved (7) Anxiety ICD Code: F41.9 Status: Chronic (8) Diarrhea ICD Code: R19.7 Status: Acute (9) Dizziness ICD Code: R42 Status: Resolved (10) Hypophosphatemia ICD Code: E83.39 Status: Acute Plan: Likely due to decreased oral intake. On Neutra-Phos. Phosphorous trending up. Continue to monitor (11) Moderate protein-calorie malnutrition ICD Code: E44.0 Status: Acute Plan: Patient with increased catabolic state due to acute myelogenous leukemia. Low albumin of 2.3, poor oral intake as well as diarrhea. Dietitian consulted. The following recommendations were given by detective narcotics and vice. Diet changed to Regular w/ Neutropenic Precautions. Patient started on ensure 3 times a day with meals. (12) Hypokalemia ICD Code: E87.6 Status: Acute Plan: Likely due to poor oral intake. Assessment and Plan (1) AML (acute myeloid leukemia) Plan: As shown on bone marrow biopsy. Medical oncology consulted and following. Patient is status post chemotherapy which will be 2 weeks tomorrow. Status post port placement 05/23. Chemotherapy started 05/27. Patient was treated with IV fluids and allopurinol while on chemotherapy to prevent tumor lysis syndrome which are now discontinued. Hemoglobin being monitored. sp transfusion of 2 units of PRBC on 06/09 ---> hemoglobin remains stable at 9 sp transfusion of 1 unit of platelets on 06/09 - monitor platelets Continue with neutropenic precautions. 06/11 Transfuse for platelets less than 10k and hb less than 7. For BM biopsy by IR on Thursday as per oncology. 06/12 counts are very stable with hemoglobin of 8.4 and platelets 23 and absolute neutrophil count of 0.1. 06/13 hb down to 7.6 and platelets down to 15, patient very fatigued. sp transfusion of 1 unit of prbc and 1 unit of platelets today. Continue to monitor cbc 06/14 patient status post transfusion of 1 unit of PRBC 1 unit of platelets yesterday. Hemoglobin today is 8.7 and platelet 24. WBC 0.6. Neutrophil count is pending. No transfusions. Patient is status post bone marrow biopsy on 06/13, follow-up pathology and hematology/oncology recommendations. (2) Neutropenic fever Plan: UA positive for Klebsiella pneumonia. Patient still having low-grade fever with a MAXIMUM TEMPERATURE of 99.7. Diarrhea resolved after Imodium. Patient's C. difficile negative. ID consulted. Antibiotics, antifungals and antivirals as per ID recommendations. The patient is currently on IV vancomycin, IV cefepime, oral azithromycin, oral Flagyl, oral acyclovir and oral fluconazole. 06/10 Diflucan changed to Micafungin IV. Zithromax discontinued as per ID. 06/11 continue antibiotics as per ID. 06/13 remains neutropenic. monitor cbc. continue antibiotics as per ID (3) Pancytopenia Plan: Pancytopenia likely secondary to chemotherapy given for AML treatment. Neutrophil count is 0. Platelet is slightly improved from previous days up to 27. Hemoglobin down to 6.8, being transfused 2 units of proper blood cells. Continue to monitor CBC and follow up oncology recommendations. (4) Symptomatic anemia Plan: Patient with tiredness and fatigue. Sp transfusion of 2 units of PRBC. Continue to monitor CBC. Transfuse as per oncology recommendations. transfuse for hb <7 (5) UTI (urinary tract infection) Plan: Continue antibiotics as above and as per ID recommendations. Urine culture grew Klebsiella pneumonia. (6) GI bleed Plan: GI bleed now resolved. Patient had some episodes of rectal bleeding. (7) Anxiety Plan: Continue Valium as needed. seems stable. (8) Diarrhea Plan: Diarrhea initially improved after immodium. However patient c/o diarrhea today. Will order stool studies and c diff. Patient also has some tender ness to palpation over left upper quadrant. 06/12 stool studies pending 06/13 repeat Cdiff negative (9) Dizziness Plan: CT head ordered by oncology 06/10 - No acute disease. Dizziness has now resolved. DVT prophylaxis: SCDs, no chemoprophylaxis given recent rectal bleed. Discharge Planning continue to monitor in the oncology floor. Dc pending clinical improvement - patient still neutropenic and with fevers as well with diarrhea. Problem Qualifiers (1) AML (acute myeloid leukemia): Qualified Code: C92.00 - Acute myeloid leukemia not having achieved remission (2) UTI (urinary tract infection): Qualified Code: N30.00 - Acute cystitis without hematuria (3) GI bleed: Qualified Code: K92.2 - Gastrointestinal hemorrhage, unspecified gastrointestinal hemorrhage type (4) Diarrhea: Qualified Code: R19.7 - Diarrhea, unspecified type Stephen Burkett MD Jun 14, 2016 09:16
[2016-06-14 09:53] LABS: PLATELET ESTIMATE SMEAR LOW (NORMAL); PLATELET MORPHOLOGY NORMAL (NORMAL); SCAN/DIFF FINAL DIFF MANUAL; WBC DIFF SAMPLE 25
[2016-06-14] MEDS: oxyCODONE/ACETAMINOPHEN 5 MG/325 MG TAB PO PRN (11:36)
[2016-06-14] MEDS: MICAFUNGIN INJ 100 MG in SODIUM CHLORIDE 0.9% INJ 100 ML IV SCH (15:19)
[2016-06-14] MEDS: VANCOMYCIN INJ 2,000 MG in SODIUM CHLORID 0.9% 500 ML INJ 500 ML IV SCH (18:06)
[2016-06-14] MEDS: ACETAMINOPHEN 325 MG TAB PO PRN (20:06)
[2016-06-15] VITALS: BP 124/65; PULSE 90; RESP 18; TEMP 98.2; O2SAT 95
[2016-06-15] MEDS: LACTATED RINGER'S 1000 ML IV SCH (01:15)
[2016-06-15] MEDS: CEFEPIME INJ 2,000 MG in SODIUM CHLORIDE 0.9% INJ 100 ML IV SCH ×3 (01:51→17:29)
[2016-06-15 04:00] VITALS: BP 149/70; PULSE 84; RESP 16; TEMP 98; O2SAT 96
[2016-06-15] MEDS: metroNIDAZOLE 500 MG TAB PO SCH ×3 (05:52→21:59)
[2016-06-15] MEDS: LEVOTHYROXINE SODIUM 25 MCG TAB PO SCH (05:52)
[2016-06-15] MEDS: ACYCLOVIR 200 MG CAP PO SCH ×3 (05:52→21:59)
[2016-06-15] MEDS: POTASSIUM PHOSPHATE/SODIUM PHOSPHATE 250 MG TAB PO SCH ×3 (05:52→17:27)
[2016-06-15] MEDS: VANCOMYCIN INJ 2,000 MG in SODIUM CHLORID 0.9% 500 ML INJ 500 ML IV SCH ×2 (05:53→18:47)
[2016-06-15 07:49] LABS: HEMATOCRIT 26.6 % (35.0-46.0); MEAN CELL VOLUME 89.5 FL (80.0-100.0); MEAN CORPUSCULAR HEMOGLOBIN 30.7 PG (27.0-34.0); MEAN CORPUSCULAR HGB CONC 34.3 % (32.0-36.0); RED BLOOD COUNT 2.97 MIL/MM3 (4.00-5.30); RED CELL DISTRIBUTION WIDTH 13.5 % (11.6-17.2); WHITE BLOOD COUNT 0.6 TH/MM3 (4.0-11.0)
[2016-06-15 07:53] LABS: HEMO FLAGS AUTO DIFF
[2016-06-15 07:58] LABS: PLATELET COUNT 18 TH/MM3 (150-450)
[2016-06-15 08:00] VITALS: BP 142/66; PULSE 71; RESP 16; TEMP 98.6; O2SAT 93
[2016-06-15] MEDS: GABAPENTIN 300 MG CAP PO SCH ×3 (08:03→17:27)
[2016-06-15] MEDS: CARISOPRODOL 350 MG TAB PO PRN (08:03)
[2016-06-15] MEDS: LOPERAMIDE HCL 2 MG CAP PO PRN (08:03)
[2016-06-15] MEDS: ALLOPURINOL 300 MG TAB PO SCH (08:04)
[2016-06-15] MEDS: PANTOPRAZOLE SOD 40 MG DELAYED RELEASE TAB PO SCH (08:04)
[2016-06-15] MEDS: DIAZEPAM 10 MG TAB PO SCH ×2 (08:04→20:49)
[2016-06-15] MEDS: FUROSEMIDE 20 MG TAB PO SCH (08:04)
[2016-06-15] MEDS: FAMOTIDINE 20 MG TAB PO SCH ×2 (08:04→20:49)
[2016-06-15] MEDS: POTASSIUM CHLORIDE 10 MEQ CAP PO SCH (08:04)
[2016-06-15] MEDS: SODIUM CHLORIDE 0.9% FLUSH 5 ML FLUSH IVF SCH (08:05)
[2016-06-15 08:16] LABS: ALKALINE PHOSPHATASE 46 U/L (45-117); ALT (GPT) 15 U/L (10-53); ANION GAP 6 MEQ/L (5-15); AST (GOT) 8 U/L (15-37); BICARBONATE 29.4 MEQ/L (21.0-32.0); BLOOD UREA NITROGEN 9 MG/DL (7-18); CHLORIDE 107 MEQ/L (98-107); GLOMERULAR FILTRATION RATE 106 ML/MIN (>89); POTASSIUM 3.5 MEQ/L (3.5-5.1); SODIUM (NA) 142 MEQ/L (136-145); TOTAL BILIRUBIN ADULT 0.5 MG/DL (0.2-1.0)
[2016-06-15] MEDS: SODIUM CHLORIDE 0.9% FLUSH 5 ML FLUSH IV SCH ×2 (09:00→20:50)
[2016-06-15 10:13] LABS: WBC DIFF SAMPLE 25
[2016-06-15 10:14] LABS: PLATELET ESTIMATE SMEAR RARE (NORMAL); PLATELET MORPHOLOGY NORMAL (NORMAL); SCAN/DIFF FINAL DIFF MANUAL
--- NOTE | 2016-06-15 10:23 | PD.ONC.PN ---
Subjective Subjective Remarks Tmax 100.2 overnight. patient feeling a bit down today. She had multiple episodes of diarrhea overnight, which are now not responding to Imodium. She has abdominal cramping prior to having a BM, but otherwise no abdominal pain. No vomiting. She ate breakfast this AM with toast and cereal. Objective Data Date Time Temp Pulse Resp B/P Pulse Ox O2 Delivery O2 Flow Rate FiO2 06/15/16 08:00 98.6 71 16 142/66 93 06/15/16 04:00 98.0 84 16 149/70 96 06/15/16 00:00 98.2 90 18 124/65 95 06/14/16 20:00 100.2 78 18 162/74 95 06/14/16 16:00 98.5 78 16 148/78 97 06/14/16 12:00 98.5 75 18 158/65 92 06/15/16 06/15/16 06/15/16 07:00 15:00 23:00 Intake Total 1760 ml Balance 1760 ml Result Diagram: 06/15/16 0500 06/15/16 0500 Laboratory Results Laboratory Tests Test 06/15/16 05:00 White Blood Count 0.6 TH/MM3 Red Blood Count 2.97 MIL/MM3 Hemoglobin 9.1 GM/DL Hematocrit 26.6 % Mean Corpuscular Volume 89.5 FL Mean Corpuscular Hemoglobin 30.7 PG Mean Corpuscular Hemoglobin 34.3 % Concent Red Cell Distribution Width 13.5 % Platelet Count 18 TH/MM3 Mean Platelet Volume 7.8 FL Neutrophils (%) (Auto) % Lymphocytes (%) (Auto) % Monocytes (%) (Auto) % Eosinophils (%) (Auto) % Basophils (%) (Auto) % Neutrophils # (Auto) TH/MM3 Lymphocytes # (Auto) TH/MM3 Monocytes # (Auto) TH/MM3 Eosinophils # (Auto) TH/MM3 Basophils # (Auto) TH/MM3 CBC Comment AUTO DIFF Differential Total Cells 25 Counted Lymphocytes % 100 % Neutrophils # (Manual) 0.0 TH/MM3 Differential Comment FINAL DIFF MANUAL Platelet Estimate RARE Platelet Morphology Comment NORMAL Red Cell Morphology Comment NORMAL Sodium Level 142 MEQ/L Potassium Level 3.5 MEQ/L Chloride Level 107 MEQ/L Carbon Dioxide Level 29.4 MEQ/L Anion Gap 6 MEQ/L Blood Urea Nitrogen 9 MG/DL Creatinine 0.58 MG/DL Estimat Glomerular Filtration 106 ML/MIN Rate Random Glucose 87 MG/DL Calcium Level 8.6 MG/DL Total Bilirubin 0.5 MG/DL Aspartate Amino Transf 8 U/L (AST/SGOT) Alanine Aminotransferase 15 U/L (ALT/SGPT) Alkaline Phosphatase 46 U/L Total Protein 6.3 GM/DL Albumin 2.4 GM/DL Culture Results Microbiology Date/Time Procedure Status Source Growth 06/13/16 00:50 Aerobic Blood Culture - Preliminary Resulted Blood Line NO GROWTH IN 1 DAY 06/13/16 00:50 Anaerobic Blood Culture - Preliminary Resulted Blood Line NO GROWTH IN 1 DAY 06/13/16 02:28 Aerobic Blood Culture - Preliminary Resulted Blood Peripheral NO GROWTH IN 1 DAY 06/13/16 02:28 Anaerobic Blood Culture - Preliminary Resulted Blood Peripheral NO GROWTH IN 1 DAY Administered Medications Medications (Trade) Dose Ordered Sig/Prashant Route PRN Reason Start Time Stop Time Status Last Admin Dose Admin Carisoprodol (Soma) 350 mg TID PRN PO PAIN 05/16/16 17:30 06/15/16 08:03 Furosemide (Lasix) 20 mg DAILY PO 05/17/16 09:00 06/15/16 08:04 Gabapentin (Neurontin) 300 mg TID PO 05/16/16 18:00 06/15/16 08:03 Levothyroxine Sodium (Synthroid) 25 mcg DAILY@06 PO 05/17/16 06:00 06/15/16 05:52 Potassium Chloride (KCl) 10 meq DAILY PO 05/17/16 09:00 06/15/16 08:04 Famotidine (Pepcid) 20 mg BID PO 05/16/16 21:00 06/15/16 08:04 IV Flush (NS Flush) 2 ml BID IV 05/16/16 21:00 06/14/16 20:02 Ondansetron HCl (Zofran Inj) 4 mg Q6H PRN IV NAUSEA 05/16/16 17:45 06/11/16 08:42 Acetaminophen (Tylenol) 650 mg Q6HR PRN PO headache 05/17/16 06:30 06/14/16 20:06 Oxycodone/ Acetaminophen (Percocet 5-325 Mg) 1 tab Q4H PRN PO pain 1-5 05/20/16 10:00 06/14/16 11:36 Pantoprazole Sodium (Protonix) 40 mg DAILY PO 05/22/16 09:00 06/15/16 08:04 Oxycodone HCl (Roxicodone) 10 mg Q4H PRN PO pain 6-10 05/21/16 16:00 06/15/16 04:53 IV Flush (NS Flush) DAILY IVF 05/24/16 09:00 06/14/16 08:41 Heparin Sodium (Porcine) (Heparin Central Flush) DAILY IVF 05/24/16 09:00 06/14/16 08:41 IV Flush (NS Flush) UNSCH PRN IVF SEE PROTOCOL 05/23/16 15:30 06/04/16 04:31 Heparin Sodium (Porcine) (Heparin Central Flush) UNSCH PRN IVF SEE PROTOCOL 05/23/16 15:30 06/02/16 04:01 Docusate Sodium (Colace) 100 mg BID PO 05/24/16 11:00 Hold 06/05/16 07:58 Polyethylene Glycol 17 gm 17 gm DAILY PO 05/25/16 14:30 Hold 06/04/16 08:27 Sodium Chloride (NS 1000 ml Inj) 1,000 ml @ 100 mls/hr Q10H IV 05/26/16 09:30 06/14/16 23:47 Allopurinol (Zyloprim) 300 mg DAILY PO 05/26/16 09:30 06/15/16 08:04 Morphine Sulfate (Morphine Inj) 2 mg Q2HR PRN IV PUSH SEVERE BREAKTHROUGH PAIN 05/27/16 08:45 06/13/16 17:38 Lactulose (Lactulose Liq) 30 ml DAILY PO 05/27/16 09:00 Hold 06/05/16 07:57 Diazepam (Valium) 10 mg Q12HR PO 05/28/16 09:00 06/15/16 08:04 Temazepam (Restoril) 15 mg HS PRN PO SLEEP 05/28/16 08:00 06/01/16 22:23 Acyclovir 400 mg 400 mg Q8HR PO 06/03/16 14:00 06/15/16 05:52 Cefepime HCl/ Sodium Chloride (Maxipime Inj/NS Inj) 100 ml @ 200 mls/hr Q8H IV 06/05/16 18:00 06/15/16 01:51 Metronidazole (Flagyl) 500 mg Q8HR PO 06/05/16 14:00 06/15/16 05:52 Loperamide HCl 2 mg 2 mg UNSCH PRN PO DIARRHEA 06/09/16 11:15 06/15/16 08:03 Micafungin Sodium/ Sodium Chloride (Mycamine Inj/NS Inj) 100 ml @ 100 mls/hr Q24H IV 06/10/16 16:00 06/14/16 15:19 Potassium Phos/ Sodium Phos 250 mg 250 mg Q6HR PO 06/12/16 12:00 06/15/16 05:52 Vancomycin HCl/ Sodium Chloride (Vancomycin Inj/ NS 500 ml Inj) 520 ml @ 250 mls/hr Q12H IV 06/14/16 18:00 06/15/16 05:53 Objective Remarks GENERAL: Middle aged female, sitting up in bed. She feels down today. eyes red from crying prior to my entering the room. SKIN: Warm and dry. Donaldson catheter, in place, right chest wall. HEAD: Normocephalic. EYES: No injection or drainage. NECK: Supple, trachea midline. CARDIOVASCULAR: Regular rate and rhythm. RESPIRATORY: Breath sounds equal bilaterally. No accessory muscle use. GASTROINTESTINAL: Abdomen soft, no tenderness to even deep palpation. I palpate the pain pump in her right abdomen. EXTREMITIES: No cyanosis. no edema. NEUROLOGICAL: AO x 3. normal speech. moving all extremities. Assessment/Plan Problem List: (1) AML (acute myeloid leukemia) Status: Acute Plan: 06/16/16: diarrhea worsening. suspect abx side effect. will stop allopurinol as this also may be contributing. 06/14/16: D19. no transfusion needed today. mild headache. monitor. Having some diarrhea, C. difficile negative 2. 06/13/16: D18. BMB today. no nausea. stable. 06/12/16:D17: Intermittent headache. Blood counts stable. Bone marrow biopsy tomorrow. 06/11/16: D16. Doing well today. Counts stable. Headache improved; CT brain negative. Will plan for bone marrow biopsy with IR on Thursday. 06/10/16: D15. 1 unit plts. dizzy w/ headache. CT brain pending 06/09/16:D14. 2 units pRBC today. 06/08/16: No issues overnight. Plt's are low at 11,000. Likely will drop again tomorrow, so we will transfuse x1 dose today. No bleeding. 06/07/16: Afebrile. Neutropenic precautions continue. 06/06/16: afebrile overnight. continue abx per ID. pain pump refilled. 06/05/16: spiked fever overnight. started on Cefepime. Levaquin stopped. ID consulted. CT ab/pelvis negative 06/04/16: D9. 1 unit plt 06/03/16: D8 chemo finishes late tonight. started on acyclovir/diflucan/levaquin for prophylaxis. 06/01/16: D6. nauseated. otherwise no events. continue chemo. 05/31/16:D5. no events. 05/30/16: D4 chemotherapy. no transfusion today. 05/29/16: D3 chemotherapy. Tolerated well Blood counts trending lower. Transfuse PRBC 2U. CSF cytology negative. 05/28/16: Tolerated chemo well, no significant side effect. Blood counts started to trend down. 05/27/16: D1. Abril-C + Idarubicin. AML w/ intermediate risk cytogenetics. (2) Pancytopenia Status: Acute Plan: transfuse for platelets less than 10k and a Hgb of less than 7. (3) presence of pain pump Status: Chronic Plan: --patient with intrathecal pain pump --managed by Dr. Omer outpatient --pain pump refilled on 06/06/16 Assessment 61y/o with AML, s/p induction with ABRIL-C + KELSEA. Plan 1. stop allopurinol 2. consider starting lomotil for diarrhea 3. monitor electrolytes 4. continue abx 5. monitor counts, no transfusion today Attending Statement The exam, history, and the medical decision-making described in the above note were completed with the assistance of the mid-level provider. I reviewed and agree with the findings presented. I attest that I had a [id number] encounter with the patient on the same day, and personally performed and documented my assessment and findings in the medical record. Ms. Chawla was seen and examined. Reports diarrhea; small mostly formed BMs every time she urinates. Had a low grade temp last night: 100.2F. Bone marrow Flow revealed no definite evidence of residual AML. Recommended initiation of probiotics for diarrhea. Repeat C.Diff stool pcr. Start lomotil. Await count recovery. Problem Qualifiers (1) AML (acute myeloid leukemia): Qualified Code: C92.00 - Acute myeloid leukemia not having achieved remission Radha Lawrence Jun 15, 2016 10:23 Adal Lyle MD Jun 15, 2016 12:24
[2016-06-15] MEDS: SODIUM CHLOR 0.9% 1000 ML INJ 1,000 ML IV SCH (10:35)
[2016-06-15] MEDS ORDERED: DIPHENOXYLATE/ATROPINE 2.5 MG/0.025 MG TAB PO PRN (11:00)
--- NOTE | 2016-06-15 11:33 | HHI.PR ---
Subjective Remarks in no distress. complaining of diarrhea. no abdominal pain or nausea. low grade fever last night. Objective Vitals Vital Signs Date Time Temp Pulse Resp B/P Pulse Ox O2 Delivery O2 Flow Rate FiO2 06/15/16 08:00 98.6 71 16 142/66 93 06/15/16 04:00 98.0 84 16 149/70 96 06/15/16 00:00 98.2 90 18 124/65 95 06/14/16 20:00 100.2 78 18 162/74 95 06/14/16 16:00 98.5 78 16 148/78 97 06/14/16 12:00 98.5 75 18 158/65 92 I/O 06/14/16 06/14/16 06/14/16 06/15/16 06/15/16 06/15/16 07:00 15:00 23:00 07:00 15:00 23:00 Intake Total 480 ml 1602 ml 1760 ml 1760 ml Balance 480 ml 1602 ml 1760 ml 1760 ml Intake Oral 480 ml 480 ml 960 ml 960 ml IV Total 1122 ml 800 ml 800 ml # Voids 3 8 4 2 # Bowel Movements 1 8 4 Result Diagram: 06/15/16 0500 06/15/16 0500 Imaging Last Impressions Bone Biopsy CT 06/13/16 0000 Signed Impressions: Service Date/Time: Monday, June 13, 2016 08:35 - CONCLUSION: 1. Uncomplicated CT guided bone marrow aspirate. 2. Uncomplicated CT guided bone marrow biopsy. Juan Carlos Cherry MD FACR Head CT 06/10/16 0000 Signed Impressions: Service Date/Time: Friday, June 10, 2016 14:56 - CONCLUSION: Stable noncontrast head CT. No acute intracranial abnormality is identified. Bravo Jackman MD Abdomen/Pelvis CT 06/05/16 0000 Signed Impressions: Service Date/Time: May 22:13 - CONCLUSION: Minimal fluid in the pelvis, otherwise unremarkable. Cynthia Guardado MD Chest X-Ray 06/04/16 0000 Signed Impressions: Service Date/Time: Saturday, June 04, 2016 21:23 - CONCLUSION: No acute disease. Kilo Cotto MD Lumbar Puncture Fluoroscopy 05/23/16 0000 Signed Impressions: Service Date/Time: Monday, May 23, 2016 14:16 - CONCLUSION: Uncomplicated fluoroscopically guided lumbar puncture. Bubba Cherry MD Catheter Placement X-Ray 05/23/16 0000 Signed Impressions: Service Date/Time: Monday, May 23, 2016 14:16 - CONCLUSION: Uncomplicated Donaldson catheter placement as above. Bubba Cherry MD Chest CT 05/17/16 0000 Signed Impressions: Service Date/Time: Tuesday, May 17, 2016 15:14 - CONCLUSION: 1. 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 There are trace to very small bilateral pleural effusions and mild cardiomegaly noted. 2. No lobar consolidation. 3. Upper limits of normal to mildly enlarged mediastinal and bilateral hilar lymph nodes, nonspecific but presumably reactive. Bravo Mendez MD Objective Remarks GENERAL: This is a well-nourished, well-developed patient, in no apparent distress. CARDIOVASCULAR: Regular rate and regular rhythm without murmurs, gallops, or rubs. RESPIRATORY: Clear to auscultation. Breath sounds equal bilaterally. No wheezes , rales, or rhonchi. GASTROINTESTINAL: Abdomen soft, non-tender, nondistended. Normal, active bowel sounds MUSCULOSKELETAL: Extremities without clubbing, cyanosis, or edema. NEURO: Alert & Oriented x4 to person, place, time, situation. Moves all ext x4 Procedures EGD/ colonoscopy Bone marrow biopsy Medications and IVs Current Medications Sodium Chloride (NS 1000 ml Inj) 1,000 ml @ 1,000 mls/hr Q1H IV Last administered on 05/16/16at 15:22; Start 05/16/16 at 14:49; Stop 05/16/16 at 15 :48; Status DC IV Flush (NS Flush) 2 ml UNSCH PRN IVF FLUSH AFTER USING IV ACCESS Last administered on 05/16/16at 16:58; Start 05/16/16 at 15:00; Stop 05/16/16 at 17 :36; Status DC Pantoprazole Sodium (Protonix Inj) 40 mg ONCE ONCE IV PUSH Last administered on 05/16/16at 16:57; Start 05/16/16 at 16:45; Stop 05/16/16 at 16:46; Status DC Carisoprodol (Soma) 350 mg TID PRN PO PAIN Last administered on 06/15/16 08:03 ; Start 05/16/16 at 17:30 Furosemide (Lasix) 20 mg DAILY PO Last administered on 06/15/16 08:04; Start 05/17/16 at 09:00 Gabapentin (Neurontin) 300 mg TID PO Last administered on 06/15/16 08:03; Start 05/16/16 at 18:00 Levothyroxine Sodium (Synthroid) 25 mcg DAILY@06 PO Last administered on 05:52; Start 05/17/16 at 06:00 Potassium Chloride (KCl) 10 meq DAILY PO Last administered on 06/15/16 08:04; Start 05/17/16 at 09:00 Famotidine 20 mg 20 mg BID PO Last administered on 06/15/16 08:04; Start at 21:00 Sodium Chloride (NS 1000 ml Inj) 1,000 ml @ 75 mls/hr [id number] IV Last administered on 05/16/16at 17:59; Start 05/16/16 at 17:31; Stop 05/17/16 at 06 :50; Status DC IV Flush (NS Flush) 2 ml UNSCH PRN IV FLUSH AFTER USING IV ACCESS; Start 05/16 at 17:45 IV Flush (NS Flush) 2 ml BID IV Last administered on 06/14/16 20:02; Start at 21:00 Ondansetron HCl (Zofran Inj) 4 mg Q6H PRN IV NAUSEA Last administered on 08:42; Start 05/16/16 at 17:45 Pantoprazole Sodium (Protonix Inj) 40 mg Q24H IV PUSH Last administered on 08:42; Start 05/17/16 at 09:00; Stop 05/21/16 at 14:52; Status DC Influenza Virus Vaccine (Flu (Quadrivalent) Vaccine Inj) 0.5 ml ONCE ONCE IM Last administered on 05/17/16at 11:51; Start 05/17/16 at 10:00; Stop 05/17/16 at 10:01; Status DC Acetaminophen (Tylenol) 650 mg Q6HR PRN PO headache Last administered on 20:06; Start 05/17/16 at 06:30 Diatrizoate Meglum/ Diatrizoate Sod (Md Lyla Villalba) 18 ml ONCE ONCE PO Last administered on 05/17/16at 11:49; Start 05/17/16 at 11:15; Stop 05/17/16 at 11:16; Status DC Iohexol (Omnipaque 350 Inj) 75 ml STK-MED ONCE IV Last administered on at 15:29; Start 05/17/16 at 15:29; Stop 05/17/16 at 15:30; Status DC Diazepam (Valium) 10 mg Q12HR PO Last administered on 05/24/16 08:12; Start 05/18/16 at 12:00; Stop 05/24/16 at 13:36; Status DC Polyethylene Glycol/ Electrolytes 4000 ml 4,000 ml ONCE ONCE PO Last administered on 05/19/16 16:34; Start 05/19/16 at 16:00; Stop 05/19/16 at 16:01; Status DC Lactated Ringer's (Lr 1000 ml Inj) 1,000 ml @ 30 mls/hr Q24H IV ; Start at 01:15 Acetaminophen (Tylenol) 650 mg ONCE ONCE PO Last administered on 05/20/16 05: 00; Start 05/20/16 at 05:00; Stop 05/20/16 at 05:03; Status DC Lidocaine/ Epinephrine 20 ml 20 ml STK-MED ONCE .ROUTE Last administered on 05/20 08:36; Start 05/20/16 at 08:36; Stop 05/20/16 at 08:49; Status DC Sodium Bicarbonate (Sodium Bicarbonate 8.4% Inj) 50 ml @ As Directed STK-MED ONCE .ROUTE Last administered on 05/20/16 08:36; Start 05/20/16 at 08:36; Stop 05/20/16 at 08:50; Status DC Fentanyl Citrate (fentaNYL INJ) 250 mcg STK-MED ONCE .ROUTE Last administered on 05/20/16 08:43; Start 05/20/16 at 08:43; Stop 05/20/16 at 08:51; Status DC Midazolam HCl (Versed Inj) 5 mg STK-MED ONCE .ROUTE Last administered on 08:43; Start 05/20/16 at 08:43; Stop 05/20/16 at 08:51; Status DC Oxycodone/ Acetaminophen (Percocet 5-325 Mg) 1 tab Q4H PRN PO pain 1-5 Last administered on 06/14/16 11:36; Start 05/20/16 at 10:00 Propofol (Diprivan 200 Mg/20 ml Inj) 310 mg STK-MED ONCE IV ; Start 05/20/16 at 12:55; Stop 05/20/16 at 13:30; Status DC Mesalamine (Canasa Supp) 1,000 mg HS RECTAL ; Start 05/20/16 at 21:00; Status Hold Pantoprazole Sodium (Protonix) 40 mg DAILY PO Last administered on 06/15/16 08 :04; Start 05/22/16 at 09:00 Oxycodone HCl (Roxicodone) 10 mg Q4H PRN PO pain 6-10 Last administered on 06/15 10:33; Start 05/21/16 at 16:00 Acetaminophen/ Butalbital/ Caffeine 1 tab 1 tab ONCE ONCE PO Last administered on 05/21/16 17:42; Start 05/21/16 at 16:00; Stop 05/21/16 at 16:04; Status DC Vancomycin HCl 1000 mg/Sodium Chloride 250 ml @ 250 mls/hr DEFLECTOR OPERATOR IV Last administered on 05/23/16 13:00; Start 05/22/16 at 16:45; Stop 05/26/16 at 16:44; Status DC Cefazolin Sodium/ Dextrose (Ancef 2 Gm Premix) 50 ml @ 100 mls/hr DEFLECTOR OPERATOR IV ; Start 05/22/16 at 18:00; Stop 05/26/16 at 17:59; Status DC Bisacodyl (Dulcolax Supp) 10 mg DAILY PRN OR CONSTIPATION Last administered on 05/22/16 22:31; Start 05/22/16 at 22:15; Stop 05/24/16 at 10:23; Status DC Sodium Biphosphate/ Sodium Phosphate (Fleets Enema (Adult)) 133 ml ONCE PRN OR constipation; Start 05/22/16 at 22:15; Stop 05/23/16 at 22:14; Status Cancel Midazolam HCl (Versed Inj) 5 mg STK-MED ONCE .ROUTE Last administered on 13:44; Start 05/23/16 at 13:44; Stop 05/23/16 at 13:45; Status DC Fentanyl Citrate (fentaNYL INJ) 250 mcg STK-MED ONCE .ROUTE Last administered on 05/23/16 13:44; Start 05/23/16 at 13:44; Stop 05/23/16 at 13:45; Status DC Heparin Sodium (Porcine) (*HEPARIN CENTRAL FLUSH PERIprocedural ONLY) 500 units STK-MED ONCE .ROUTE Last administered on 05/23/16 15:20; Start 05/23/16 at 14:30 ; Stop 05/23/16 at 14:31; Status DC Lidocaine/ Epinephrine (Xylocaine-Epi 1%-1:100,000 Inj) 20 ml STK-MED ONCE .ROUTE Last administered on 05/23/16 15:02; Start 05/23/16 at 14:30; Stop at 14:31; Status DC Midazolam HCl (Versed Inj) 5 mg STK-MED ONCE .ROUTE Last administered on 15:10; Start 05/23/16 at 15:10; Stop 05/23/16 at 15:11; Status DC Fentanyl Citrate 250 mcg 250 mcg STK-MED ONCE .ROUTE Last administered on 15:10; Start 05/23/16 at 15:10; Stop 05/23/16 at 15:11; Status DC Ceftriaxone Sodium/Sodium Chloride (Rocephin Inj/NS Inj) 100 ml @ 200 mls/hr Q24H IV Last administered on 05/30/16 17:19; Start 05/23/16 at 16:00; Stop at 09:52; Status DC IV Flush (NS Flush) DAILY IVF Last administered on 06/14/16 08:41; Start 05/24 at 09:00 Heparin Sodium (Porcine) (Heparin Central Flush) DAILY IVF Last administered on 06/14/16 08:41; Start 05/24/16 at 09:00 IV Flush (NS Flush) UNSCH PRN IVF SEE PROTOCOL Last administered on 06/04/16 04:31; Start 05/23/16 at 15:30 Heparin Sodium (Porcine) (Heparin Central Flush) UNSCH PRN IVF SEE PROTOCOL Last administered on 06/02/16 04:01; Start 05/23/16 at 15:30 Docusate Sodium (Colace) 100 mg BID PO Last administered on 06/05/16 07:58; Start 05/24/16 at 11:00; Status Hold Lactulose (Lactulose Liq) 30 ml ONCE ONCE PO Last administered on 05/24/16 12: 15; Start 05/24/16 at 10:30; Stop 05/24/16 at 10:31; Status DC Lorazepam (Ativan) 1 mg Q4HR PRN PO anxiety Last administered on 05/24/16 22:38 ; Start 05/24/16 at 13:45; Stop 05/25/16 at 09:00; Status DC Lorazepam (Ativan) 1 mg ONCE ONCE PO Last administered on 05/24/16 14:27; Start 05/24/16 at 13:45; Stop 05/24/16 at 13:46; Status DC Lorazepam (Ativan) 2 mg Q6H PRN PO anxiety Last administered on 05/27/16 07:35 ; Start 05/25/16 at 08:59; Stop 05/28/16 at 08:03; Status DC Lactulose (Lactulose Liq) 30 ml QID PO Last administered on 05/25/16 20:06; Start 05/25/16 at 13:00; Stop 05/25/16 at 21:01; Status DC Polyethylene Glycol (Miralax) 17 gm DAILY PO Last administered on 06/04/16 08: 27; Start 05/25/16 at 14:30; Stop 06/15/16 at 10:54; Status DC Lactic Acid (Lac-Hydrin 12% Lotion) 1 applic BID PRN TOPICAL irritation; Start 05/25/16 at 14:30 Sumatriptan Succinate 25 mg 25 mg ONCE ONCE PO Last administered on 05/25/16 20:06; Start 05/25/16 at 19:45; Stop 05/25/16 at 19:47; Status DC Sodium Chloride (NS 1000 ml Inj) 1,000 ml @ 100 mls/hr Q10H IV Last administered on 06/15/16 10:35; Start 05/26/16 at 09:30; Stop 06/15/16 at 10:54 ; Status DC Allopurinol (Zyloprim) 300 mg DAILY PO Last administered on 06/15/16 08:04; Start 05/26/16 at 09:30; Stop 06/15/16 at 10:19; Status DC Morphine Sulfate 2 mg 2 mg ONCE ONCE IV PUSH Last administered on 05/26/16 10: 46; Start 05/26/16 at 10:30; Stop 05/26/16 at 10:31; Status DC Idarubicin HCl 22.6 mg/Sodium Chloride 122.6 ml @ 490.4 mls/ hr Q24H IV ; Start 05/26/16 at 16:00; Stop 05/26/16 at 17:07; Status DC Granisetron HCl 1 mg/Dexamethasone Sodium Phosphate 20 mg/Sodium Chloride 56 ml @ 336 mls/hr Q24H IV ; Start 05/26/16 at 15:30; Stop 05/26/16 at 17:09; Status DC Cytarabine 189 mg/ Sodium Chloride 500 ml @ 20.833 mls/ hr Q24H IV ; Start 05/26 at 17:00; Stop 05/26/16 at 17:08; Status DC Idarubicin HCl 22.6 mg/Sodium Chloride 122.6 ml @ 490.4 mls/ hr Q24H IV Last administered on 05/29/16 09:00; Start 05/27/16 at 09:00; Stop 05/29/16 at 09:14 ; Status DC Cytarabine 189 mg/ Sodium Chloride 500 ml @ 20.833 mls/ hr Q24H IV Last administered on 06/03/16 04:14; Start 05/27/16 at 10:00; Stop 06/03/16 at 09:59 ; Status DC Granisetron HCl/ Dexamethasone Sodium Phosphate/ Sodium Chloride (Kytril Inj/ Decadron Inj/NS Inj) 56 ml @ 336 mls/hr Q24H IV Last administered on 22:22; Start 05/27/16 at 08:30; Stop 06/02/16 at 08:39; Status DC Morphine Sulfate (Morphine Inj) 2 mg Q2HR PRN IV PUSH SEVERE BREAKTHROUGH PAIN Last administered on 06/13/16 17:38; Start 05/27/16 at 08:45 Lactulose (Lactulose Liq) 30 ml DAILY PO Last administered on 06/05/16 07:57; Start 05/27/16 at 09:00; Stop 06/15/16 at 10:54; Status DC Diazepam (Valium) 10 mg Q12HR PO Last administered on 06/15/16 08:04; Start at 09:00 Temazepam 15 mg 15 mg HS PRN PO SLEEP Last administered on 06/01/16 22:23; Start 05/28/16 at 08:00 Sodium Chloride (NS 250 ml Inj) 250 ml @ 15 mls/hr ONCE ONCE IV Last administered on 05/29/16 14:07; Start 05/29/16 at 08:00; Stop 05/30/16 at 00:39 ; Status DC Acetaminophen (Tylenol) 650 mg Q4H PRN PO SEE LABEL COMMENTS; Start 05/29/16 at 08:00; Stop 05/29/16 at 12:01; Status DC Diphenhydramine HCl (Benadryl) 25 mg Q4H PRN PO SEE LABEL COMMENTS; Start 05/29 at 08:00; Stop 05/29/16 at 12:01; Status DC Diphenhydramine HCl (Benadryl) 25 mg Q4H PRN PO SEE LABEL COMMENTS Last administered on 05/29/16 12:54; Start 05/29/16 at 13:00; Stop 05/29/16 at 17:01 ; Status DC Acetaminophen (Tylenol) 650 mg Q4H PRN PO SEE LABEL COMMENTS Last administered on 05/29/16 12:54; Start 05/29/16 at 13:00; Stop 05/29/16 at 17:01; Status DC Diphenhydramine HCl (Benadryl) 25 mg Q4H PRN PO SEE LABEL COMMENTS Last administered on 05/29/16 21:21; Start 05/29/16 at 21:15; Stop 05/30/16 at 01:16 ; Status DC Multi-Ingredient Mouthwash/Gargle (Magic Mouthwash Adult Liq) 5 ml QID SWISH- SWAL Last administered on 06/11/16 08:45; Start 06/03/16 at 09:00; Stop at 12:03; Status DC Acyclovir (Zovirax) 400 mg Q8HR PO Last administered on 06/15/16 05:52; Start 06/03/16 at 14:00 Fluconazole (Diflucan) 200 mg DAILY PO Last administered on 06/10/16 09:22; Start 06/03/16 at 09:00; Stop 06/10/16 at 15:16; Status DC Levofloxacin 250 mg 250 mg DAILY@11 PO Last administered on 06/04/16 11:27; Start 06/03/16 at 11:00; Stop 06/05/16 at 07:46; Status DC Sodium Chloride (NS 250 ml Inj) 250 ml @ 15 mls/hr ONCE ONCE IV ; Start at 09:00; Stop 06/05/16 at 01:39; Status DC Acetaminophen (Tylenol) 650 mg Q4H PRN PO SEE LABEL COMMENTS Last administered on 06/04/16 11:27; Start 06/04/16 at 09:00; Stop 06/04/16 at 13:01; Status DC Diphenhydramine HCl 25 mg 25 mg Q4H PRN PO SEE LABEL COMMENTS Last administered on 06/04/16 11:27; Start 06/04/16 at 09:00; Stop 06/04/16 at 13:01 ; Status DC Cefepime HCl/ Sodium Chloride (Maxipime Inj/NS Inj) 100 ml @ 200 mls/hr Q12H IV Last administered on 06/05/16 10:41; Start 06/04/16 at 22:00; Stop at 13:37; Status DC Diatrizoate Meglum/ Diatrizoate Sod 18 ml 18 ml ONCE ONCE PO Last administered on 06/05/16 13:19; Start 06/05/16 at 13:00; Stop 06/05/16 at 13:01 ; Status DC Cefepime HCl/ Sodium Chloride (Maxipime Inj/NS Inj) 100 ml @ 200 mls/hr Q8H IV Last administered on 06/15/16 10:32; Start 06/05/16 at 18:00 Azithromycin 500 mg 500 mg DAILY PO Last administered on 06/10/16 09:21; Start 06/05/16 at 14:00; Stop 06/10/16 at 15:16; Status DC Vancomycin HCl 1000 mg/Sodium Chloride 250 ml @ 250 mls/hr ONCE ONCE IV Last administered on 06/05/16 14:44; Start 06/05/16 at 14:00; Stop 06/05/16 at 14:59 ; Status DC Pharmacy Profile Note (Vancomycin Consult Pharmacy) 0 ml @ 0 mls/hr UNSCH OTHER ; Start 06/05/16 at 13:45 Metronidazole 500 mg 500 mg Q8HR PO Last administered on 06/15/16 05:52; Start 06/05/16 at 14:00 Vancomycin HCl/ Sodium Chloride (Vancomycin Inj/ NS 250 ml Inj) 262.5 ml @ 250 mls/hr Q12H IV Last administered on 06/10/16 01:03; Start 06/06/16 at 00:00; Stop 06/10/16 at 15:30; Status DC Miscellaneous Information SPECIFIC LAB TO BE DRAWN:VANCOMYCIN TROUGH DATE TO... ONCE ONCE XX Last administered on 06/07/16 11:45; Start 06/07/16 at 11:45; Stop 06/07/16 at 11:46; Status DC Iohexol (Omnipaque 350 Inj) 100 ml STK-MED ONCE IV Last administered on 22:20; Start 06/05/16 at 22:20; Stop 06/05/16 at 22:21; Status DC Patient Own Medication PT OWN MED: HYDROMORPHONE 40 MG/... UNSCH OTHER ; Start 06/06/16 at 11:00 Sodium Chloride (NS 250 ml Inj) 250 ml @ 15 mls/hr ONCE ONCE IV Last administered on 06/06/16 16:45; Start 06/06/16 at 12:45; Stop 06/07/16 at 05:24 ; Status DC Acetaminophen (Tylenol) 650 mg Q4H PRN PO SEE LABEL COMMENTS Last administered on 06/06/16 16:19; Start 06/06/16 at 12:45; Stop 06/06/16 at 16:46; Status DC Diphenhydramine HCl (Benadryl) 25 mg Q4H PRN PO SEE LABEL COMMENTS Last administered on 06/06/16 16:18; Start 06/06/16 at 12:45; Stop 06/06/16 at 16:46 ; Status DC Miscellaneous Information SPECIFIC LAB TO BE VIKRAM... ONCE ONCE XX Last administered on 06/08/16 13:45; Start 06/08/16 at 11:45; Stop 06/08/16 at 11:46 ; Status DC Sodium Chloride (NS 250 ml Inj) 250 ml @ 15 mls/hr ONCE ONCE IV Last administered on 06/08/16 13:00; Start 06/08/16 at 13:00; Stop 06/09/16 at 05:39 ; Status DC Diphenhydramine HCl 25 mg 25 mg Q4H PRN PO SEE LABEL COMMENTS; Start 06/08/16 at 13:00; Stop 06/08/16 at 17:01; Status DC Sodium Chloride (NS 250 ml Inj) 250 ml @ 15 mls/hr ONCE ONCE IV Last administered on 06/09/16 11:51; Start 06/09/16 at 07:30; Stop 06/10/16 at 00:09 ; Status DC Acetaminophen (Tylenol) 650 mg Q4H PRN PO SEE LABEL COMMENTS; Start 06/09/16 at 07:30; Stop 06/09/16 at 11:31; Status DC Diphenhydramine HCl (Benadryl) 25 mg Q4H PRN PO SEE LABEL COMMENTS; Start 06/09 at 07:30; Stop 06/09/16 at 11:31; Status DC Loperamide HCl 2 mg 2 mg UNSCH PRN PO DIARRHEA Last administered on 06/15/16 08:03; Start 06/09/16 at 11:15; Stop 06/15/16 at 10:54; Status DC Magnesium Sulfate/ Dextrose 100 ml @ 100 mls/hr Q1H IV Last administered on 15:35; Start 06/10/16 at 09:15; Stop 06/10/16 at 11:14; Status DC Sodium Chloride (NS 250 ml Inj) 250 ml @ 15 mls/hr ONCE ONCE IV Last administered on 06/10/16 12:26; Start 06/10/16 at 09:30; Stop 06/11/16 at 02:09 ; Status DC Acetaminophen (Tylenol) 650 mg Q4H PRN PO SEE LABEL COMMENTS Last administered on 06/10/16 10:57; Start 06/10/16 at 09:30; Stop 06/10/16 at 13:31; Status DC Diphenhydramine HCl 25 mg 25 mg Q4H PRN PO SEE LABEL COMMENTS Last administered on 06/10/16 10:57; Start 06/10/16 at 09:30; Stop 06/10/16 at 13:31 ; Status DC Micafungin Sodium 100 mg/Sodium Chloride 100 ml @ 100 mls/hr Q24H IV Last administered on 06/14/16 15:19; Start 06/10/16 at 16:00 Vancomycin HCl/ Sodium Chloride (Vancomycin Inj/ NS 500 ml Inj) 515 ml @ 250 mls/hr Q12H IV Last administered on 06/12/16 05:32; Start 06/10/16 at 18:00; Stop 06/12/16 at 09:22; Status DC Miscellaneous Information SPECIFIC LAB TO BE DRAWN:VANCOMYCIN TROUGH DATE TO... ONCE ONCE XX Last administered on 06/12/16 05:33; Start 06/12/16 at 05:45; Stop 06/12/16 at 05:46; Status DC Vancomycin HCl/ Sodium Chloride (Vancomycin Inj/ NS 500 ml Inj) 517.5 ml @ 250 mls/hr Q12H IV Last administered on 06/14/16 05:14; Start 06/12/16 at 18:00; Stop 06/14/16 at 10:10; Status DC Miscellaneous Information SPECIFIC LAB TO BE DRAWN:VANCOMYCIN TROUGH DATE TO... ONCE ONCE XX Last administered on 06/14/16 05:15; Start 06/14/16 at 05:45; Stop 06/14/16 at 05:46; Status DC Potassium Chloride (KCl) 30 meq ONCE ONCE PO Last administered on 06/12/16 13 :21; Start 06/12/16 at 09:30; Stop 06/12/16 at 09:37; Status DC Potassium Phos/ Sodium Phos (K-Phos Neutral) 250 mg Q6HR PO Last administered on 06/15/16 05:52; Start 06/12/16 at 12:00 Lidocaine/ Epinephrine (Xylocaine-Epi 1%-1:100,000 Inj) 20 ml STK-MED ONCE .ROUTE Last administered on 06/13/16 07:27; Start 06/13/16 at 07:27; Stop at 07:28; Status DC Fentanyl Citrate (fentaNYL INJ) 250 mcg STK-MED ONCE .ROUTE Last administered on 06/13/16 07:51; Start 06/13/16 at 07:51; Stop 06/13/16 at 07:52; Status DC Midazolam HCl (Versed Inj) 5 mg STK-MED ONCE .ROUTE Last administered on 07:51; Start 06/13/16 at 07:51; Stop 06/13/16 at 07:52; Status DC Thrombin (Thrombin Top Soln) 5,000 units STK-MED ONCE .ROUTE Last administered on 06/13/16 08:41; Start 06/13/16 at 08:41; Stop 06/13/16 at 08:42; Status DC Hydromorphone HCl (Dilaudid Pf Inj) 2 mg STK-MED ONCE .ROUTE Last administered on 06/13/16 08:48; Start 06/13/16 at 08:48; Stop 06/13/16 at 08:49; Status DC Gelatin 1 foam 1 foam STK-MED ONCE .XX Last administered on 06/13/16 09:33; Start 06/13/16 at 09:33; Stop 06/13/16 at 09:34; Status DC Sodium Chloride (NS 250 ml Inj) 250 ml @ 15 mls/hr ONCE ONCE IV Last administered on 06/13/16 12:48; Start 06/13/16 at 10:00; Stop 06/14/16 at 02:39 ; Status DC Acetaminophen (Tylenol) 650 mg Q4H PRN PO SEE LABEL COMMENTS; Start 06/13/16 at 10:00; Stop 06/13/16 at 14:01; Status DC Diphenhydramine HCl 25 mg 25 mg Q4H PRN PO SEE LABEL COMMENTS Last administered on 06/13/16 11:34; Start 06/13/16 at 10:00; Stop 06/13/16 at 14:01 ; Status DC Sodium Chloride (NS 250 ml Inj) 250 ml @ 15 mls/hr ONCE ONCE IV Last administered on 06/13/16 12:48; Start 06/13/16 at 12:00; Stop 06/14/16 at 04:39 ; Status DC Acetaminophen (Tylenol) 650 mg Q4H PRN PO SEE LABEL COMMENTS; Start 06/13/16 at 12:00; Stop 06/13/16 at 16:01; Status DC Diphenhydramine HCl (Benadryl) 25 mg Q4H PRN PO SEE LABEL COMMENTS; Start 06/13 at 12:00; Stop 06/13/16 at 16:01; Status DC Diphenhydramine HCl (Benadryl) 25 mg ONCE ONCE PO Last administered on 20:42; Start 06/13/16 at 21:00; Stop 06/13/16 at 21:01; Status DC Potassium Chloride 30 meq 30 meq ONCE ONCE PO Last administered on 06/14/16 10:40; Start 06/14/16 at 09:15; Stop 06/14/16 at 09:16; Status DC Vancomycin HCl/ Sodium Chloride (Vancomycin Inj/ NS 500 ml Inj) 520 ml @ 250 mls/hr Q12H IV Last administered on 06/15/16 05:53; Start 06/14/16 at 18:00 Miscellaneous Information SPECIFIC LAB TO BE ... ONCE ONCE XX ; Start at 05:45; Stop 06/16/16 at 05:46 Diphenoxylate HCl/ Atropine (Lomotil Tab) 1 tab Q6H PRN PO diarrhea; Start at 11:00 A/P Assessment and Plan A/P (1) AML (acute myeloid leukemia) Plan: As shown on bone marrow biopsy. Medical oncology consulted and following. Status post port placement 05/23. Chemotherapy started 05/27. Patient was treated with IV fluids and allopurinol while on chemotherapy to prevent tumor lysis syndrome which are now discontinued. Hemoglobin being monitored. sp transfusion of 2 units of PRBC on 06/09 ---> hemoglobin remains stable at 9 sp transfusion of 1 unit of platelets on 06/09 - monitor platelets Continue with neutropenic precautions. Patient is status post bone marrow biopsy on 06/13, follow-up pathology and hematology/oncology recommendations. (2) Neutropenic fever Plan: UA positive for Klebsiella pneumonia. Patient's C. difficile negative. ID consulted. Antibiotics, antifungals and antivirals as per ID recommendations. The patient is currently on IV vancomycin, IV cefepime, oral azithromycin, oral Flagyl, oral acyclovir . (3) Pancytopenia Plan: Pancytopenia likely secondary to chemotherapy given for AML treatment. Continue to monitor CBC and follow up oncology recommendations. (4) Symptomatic anemia Plan: Transfuse as per oncology recommendations. transfuse for hb <7 (5) UTI (urinary tract infection) Plan: Continue antibiotics as above and as per ID recommendations. Urine culture grew Klebsiella pneumonia. (6) GI bleed Plan: GI bleed now resolved. Patient had some episodes of rectal bleeding. (7) Anxiety Plan: Continue Valium as needed. seems stable. (8) Diarrhea Plan: Diarrhea initially improved after immodium. However patient c/o diarrhea today. 06/13 repeat Cdiff negative (9) Dizziness Plan: CT head ordered by oncology 06/10 - No acute disease. Dizziness has now resolved. DVT prophylaxis: SCDs, no chemoprophylaxis given recent rectal bleed. Elma Feliz MD Jun 15, 2016 11:32
[2016-06-15 12:00] VITALS: BP 123/76; PULSE 74; RESP 18; TEMP 98.1; O2SAT 96
[2016-06-15] MEDS: MICAFUNGIN INJ 100 MG in SODIUM CHLORIDE 0.9% INJ 100 ML IV SCH (13:10)
[2016-06-15] MEDS: MORPHINE SULFATE 4 MG/ML INJ IV PUSH PRN ×2 (13:18→18:55)
[2016-06-15 16:00] VITALS: BP 116/55; PULSE 74; RESP 16; TEMP 98.9; O2SAT 94
[2016-06-15 19:01] LABS: C. DIFF EPI 027 PRESUMPTIVE NEGATIVE (NEGATIVE); C. DIFF TOXIN PCR NEGATIVE (NEGATIVE)
[2016-06-15 20:00] VITALS: BP 132/63; PULSE 77; RESP 18; TEMP 100.2; O2SAT 94
[2016-06-16] VITALS (9 sets, daily range): BP systolic 97–165; BP diastolic 51–73; PULSE 69–104; RESP 16–20; TEMP 97.9–98.7; O2SAT 93–99
[2016-06-16] MEDS: POTASSIUM PHOSPHATE/SODIUM PHOSPHATE 250 MG TAB PO SCH ×4 (00:06→18:00)
[2016-06-16] MEDS: LACTATED RINGER'S 1000 ML IV SCH (01:15)
[2016-06-16] MEDS: CEFEPIME INJ 2,000 MG in SODIUM CHLORIDE 0.9% INJ 100 ML IV SCH ×3 (02:22→18:00)
[2016-06-16] MEDS: ACYCLOVIR 200 MG CAP PO SCH (05:44)
[2016-06-16] MEDS: LEVOTHYROXINE SODIUM 25 MCG TAB PO SCH (05:44)
[2016-06-16] MEDS: metroNIDAZOLE 500 MG TAB PO SCH ×2 (05:44→16:44)
[2016-06-16] MEDS: VANCOMYCIN INJ 2,000 MG in SODIUM CHLORID 0.9% 500 ML INJ 500 ML IV SCH (05:44)
[2016-06-16] MEDS ORDERED: PHARMACY ORDERED LAB XX ONE (05:45)
[2016-06-16 06:08] LABS: HEMATOCRIT 23.4 % (35.0-46.0); MEAN CELL VOLUME 87.9 FL (80.0-100.0); MEAN CORPUSCULAR HEMOGLOBIN 31.3 PG (27.0-34.0); MEAN CORPUSCULAR HGB CONC 35.6 % (32.0-36.0); RED BLOOD COUNT 2.66 MIL/MM3 (4.00-5.30); RED CELL DISTRIBUTION WIDTH 13.5 % (11.6-17.2); WHITE BLOOD COUNT 0.6 TH/MM3 (4.0-11.0)
[2016-06-16 06:10] LABS: HEMO FLAGS AUTO DIFF
[2016-06-16 06:12] LABS: PLATELET COUNT 13 TH/MM3 (150-450)
[2016-06-16 06:35] LABS: ALKALINE PHOSPHATASE 51 U/L (45-117); ALT (GPT) 16 U/L (10-53); ANION GAP 5 MEQ/L (5-15); AST (GOT) 11 U/L (15-37); BICARBONATE 30.6 MEQ/L (21.0-32.0); BLOOD UREA NITROGEN 12 MG/DL (7-18); CHLORIDE 107 MEQ/L (98-107); GLOMERULAR FILTRATION RATE 100 ML/MIN (>89); POTASSIUM 3.5 MEQ/L (3.5-5.1); SODIUM (NA) 143 MEQ/L (136-145); TOTAL BILIRUBIN ADULT 0.2 MG/DL (0.2-1.0)
[2016-06-16 07:48] LABS: POLYS (SEG NEUTROPHILS) 2 % (16-70); WBC DIFF SAMPLE 100
[2016-06-16 07:49] LABS: PLATELET ESTIMATE SMEAR RARE (NORMAL); PLATELET MORPHOLOGY NORMAL (NORMAL); ROULEAUX PRESENT (NORMAL); SCAN/DIFF FINAL DIFF MANUAL
[2016-06-16] MEDS ORDERED: diphenhydrAMINE HCL 25 MG CAP PO PRN ×2 (08:30→14:15)
[2016-06-16] MEDS ORDERED: SODIUM CHLOR 0.9% 250 ML INJ 250 ML IV ONE (08:30)
[2016-06-16] MEDS ORDERED: ACETAMINOPHEN 325 MG TAB PO PRN (08:30)
[2016-06-16] MEDS: DIAZEPAM 10 MG TAB PO SCH ×2 (08:45→21:14)
[2016-06-16] MEDS: GABAPENTIN 300 MG CAP PO SCH ×3 (08:45→18:00)
[2016-06-16] MEDS: PANTOPRAZOLE SOD 40 MG DELAYED RELEASE TAB PO SCH (08:45)
[2016-06-16] MEDS: POTASSIUM CHLORIDE 10 MEQ CAP PO SCH (08:45)
[2016-06-16] MEDS: SODIUM CHLORIDE 0.9% FLUSH 5 ML FLUSH IV SCH ×2 (08:46→21:15)
[2016-06-16] MEDS: FUROSEMIDE 20 MG TAB PO SCH (08:46)
[2016-06-16] MEDS: FAMOTIDINE 20 MG TAB PO SCH ×2 (08:46→21:14)
[2016-06-16] MEDS: SODIUM CHLORIDE 0.9% FLUSH 5 ML FLUSH IVF SCH ×2 (08:47→14:26)
--- NOTE | 2016-06-16 09:08 | HHI.PR ---
Subjective Remarks in no acute distress. low garde fever last night. diarrhea has stopped but complaining of ' abdominal gas'. d/w the RN. Objective Vitals Vital Signs Date Time Temp Pulse Resp B/P Pulse Ox O2 Delivery O2 Flow Rate FiO2 06/16/16 04:00 98.3 75 18 121/58 94 06/16/16 00:00 98.7 76 18 123/62 94 06/15/16 20:00 100.2 77 18 132/63 94 06/15/16 16:00 98.9 74 16 116/55 94 06/15/16 12:00 98.1 74 18 123/76 96 I/O 06/15/16 06/15/16 06/15/16 06/16/16 06/16/16 06/16/16 07:00 15:00 23:00 07:00 15:00 23:00 Intake Total 1760 ml 960 ml 3938 ml 2030 ml Balance 1760 ml 960 ml 3938 ml 2030 ml Intake Oral 960 ml 960 ml 1920 ml IV Total 800 ml 3938 ml 110 ml # Voids 2 6 7 # Bowel Movements 6 4 Result Diagram: 06/16/16 0545 06/16/16 0545 Imaging Last Impressions Bone Biopsy CT 06/13/16 0000 Signed Impressions: Service Date/Time: Monday, June 13, 2016 08:35 - CONCLUSION: 1. Uncomplicated CT guided bone marrow aspirate. 2. Uncomplicated CT guided bone marrow biopsy. Juan Carlos Cherry MD FACR Head CT 06/10/16 0000 Signed Impressions: Service Date/Time: Friday, June 10, 2016 14:56 - CONCLUSION: Stable noncontrast head CT. No acute intracranial abnormality is identified. Bravo Jackman MD Abdomen/Pelvis CT 06/05/16 0000 Signed Impressions: Service Date/Time: May 22:13 - CONCLUSION: Minimal fluid in the pelvis, otherwise unremarkable. Cynthia Guardado MD Chest X-Ray 06/04/16 0000 Signed Impressions: Service Date/Time: Saturday, June 04, 2016 21:23 - CONCLUSION: No acute disease. Kilo Cotto MD Lumbar Puncture Fluoroscopy 05/23/16 0000 Signed Impressions: Service Date/Time: Monday, May 23, 2016 14:16 - CONCLUSION: Uncomplicated fluoroscopically guided lumbar puncture. Bubba Cherry MD Catheter Placement X-Ray 05/23/16 0000 Signed Impressions: Service Date/Time: Monday, May 23, 2016 14:16 - CONCLUSION: Uncomplicated Donaldson catheter placement as above. Bubba Cherry MD Chest CT 05/17/16 0000 Signed Impressions: Service Date/Time: Tuesday, May 17, 2016 15:14 - CONCLUSION: 1. 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 There are trace to very small bilateral pleural effusions and mild cardiomegaly noted. 2. No lobar consolidation. 3. Upper limits of normal to mildly enlarged mediastinal and bilateral hilar lymph nodes, nonspecific but presumably reactive. Bravo Mendez MD Objective Remarks GENERAL: This is a well-nourished, well-developed patient, in no apparent distress. CARDIOVASCULAR: Regular rate and regular rhythm without murmurs, gallops, or rubs. RESPIRATORY: Clear to auscultation. Breath sounds equal bilaterally. No wheezes , rales, or rhonchi. GASTROINTESTINAL: Abdomen soft, non-tender, nondistended. Normal, active bowel sounds MUSCULOSKELETAL: Extremities without clubbing, cyanosis, or edema. NEURO: Alert & Oriented x4 to person, place, time, situation. Moves all ext x4 Procedures EGD/ colonoscopy Bone marrow biopsy Medications and IVs Current Medications Sodium Chloride (NS 1000 ml Inj) 1,000 ml @ 1,000 mls/hr Q1H IV Last administered on 05/16/16at 15:22; Start 05/16/16 at 14:49; Stop 05/16/16 at 15 :48; Status DC IV Flush (NS Flush) 2 ml UNSCH PRN IVF FLUSH AFTER USING IV ACCESS Last administered on 05/16/16at 16:58; Start 05/16/16 at 15:00; Stop 05/16/16 at 17 :36; Status DC Pantoprazole Sodium (Protonix Inj) 40 mg ONCE ONCE IV PUSH Last administered on 05/16/16at 16:57; Start 05/16/16 at 16:45; Stop 05/16/16 at 16:46; Status DC Carisoprodol (Soma) 350 mg TID PRN PO PAIN Last administered on 06/15/16 08:03 ; Start 05/16/16 at 17:30 Furosemide (Lasix) 20 mg DAILY PO Last administered on 06/16/16 08:46; Start 05/17/16 at 09:00 Gabapentin (Neurontin) 300 mg TID PO Last administered on 06/16/16 08:45; Start 05/16/16 at 18:00 Levothyroxine Sodium (Synthroid) 25 mcg DAILY@06 PO Last administered on 05:44; Start 05/17/16 at 06:00 Potassium Chloride (KCl) 10 meq DAILY PO Last administered on 06/16/16 08:45; Start 05/17/16 at 09:00 Famotidine 20 mg 20 mg BID PO Last administered on 06/16/16 08:46; Start at 21:00 Sodium Chloride (NS 1000 ml Inj) 1,000 ml @ 75 mls/hr [id number] IV Last administered on 05/16/16at 17:59; Start 05/16/16 at 17:31; Stop 05/17/16 at 06 :50; Status DC IV Flush (NS Flush) 2 ml UNSCH PRN IV FLUSH AFTER USING IV ACCESS; Start 05/16 at 17:45 IV Flush (NS Flush) 2 ml BID IV Last administered on 06/16/16 08:46; Start at 21:00 Ondansetron HCl (Zofran Inj) 4 mg Q6H PRN IV NAUSEA Last administered on 08:42; Start 05/16/16 at 17:45 Pantoprazole Sodium (Protonix Inj) 40 mg Q24H IV PUSH Last administered on 08:42; Start 05/17/16 at 09:00; Stop 05/21/16 at 14:52; Status DC Influenza Virus Vaccine (Flu (Quadrivalent) Vaccine Inj) 0.5 ml ONCE ONCE IM Last administered on 05/17/16at 11:51; Start 05/17/16 at 10:00; Stop 05/17/16 at 10:01; Status DC Acetaminophen (Tylenol) 650 mg Q6HR PRN PO headache Last administered on 20:06; Start 05/17/16 at 06:30 Diatrizoate Meglum/ Diatrizoate Sod (Md Arita Liq) 18 ml ONCE ONCE PO Last administered on 05/17/16at 11:49; Start 05/17/16 at 11:15; Stop 05/17/16 at 11:16; Status DC Iohexol (Omnipaque 350 Inj) 75 ml STK-MED ONCE IV Last administered on at 15:29; Start 05/17/16 at 15:29; Stop 05/17/16 at 15:30; Status DC Diazepam (Valium) 10 mg Q12HR PO Last administered on 05/24/16 08:12; Start 05/18/16 at 12:00; Stop 05/24/16 at 13:36; Status DC Polyethylene Glycol/ Electrolytes 4000 ml 4,000 ml ONCE ONCE PO Last administered on 05/19/16 16:34; Start 05/19/16 at 16:00; Stop 05/19/16 at 16:01; Status DC Lactated Ringer's (Lr 1000 ml Inj) 1,000 ml @ 30 mls/hr Q24H IV ; Start at 01:15 Acetaminophen (Tylenol) 650 mg ONCE ONCE PO Last administered on 05/20/16 05: 00; Start 05/20/16 at 05:00; Stop 05/20/16 at 05:03; Status DC Lidocaine/ Epinephrine 20 ml 20 ml STK-MED ONCE .ROUTE Last administered on 05/20 08:36; Start 05/20/16 at 08:36; Stop 05/20/16 at 08:49; Status DC Sodium Bicarbonate (Sodium Bicarbonate 8.4% Inj) 50 ml @ As Directed STK-MED ONCE .ROUTE Last administered on 05/20/16 08:36; Start 05/20/16 at 08:36; Stop 05/20/16 at 08:50; Status DC Fentanyl Citrate (fentaNYL INJ) 250 mcg STK-MED ONCE .ROUTE Last administered on 05/20/16 08:43; Start 05/20/16 at 08:43; Stop 05/20/16 at 08:51; Status DC Midazolam HCl (Versed Inj) 5 mg STK-MED ONCE .ROUTE Last administered on 08:43; Start 05/20/16 at 08:43; Stop 05/20/16 at 08:51; Status DC Oxycodone/ Acetaminophen (Percocet 5-325 Mg) 1 tab Q4H PRN PO pain 1-5 Last administered on 06/14/16 11:36; Start 05/20/16 at 10:00 Propofol (Diprivan 200 Mg/20 ml Inj) 310 mg STK-MED ONCE IV ; Start 05/20/16 at 12:55; Stop 05/20/16 at 13:30; Status DC Mesalamine (Canasa Supp) 1,000 mg HS RECTAL ; Start 05/20/16 at 21:00; Status Hold Pantoprazole Sodium (Protonix) 40 mg DAILY PO Last administered on 06/16/16 08 :45; Start 05/22/16 at 09:00 Oxycodone HCl (Roxicodone) 10 mg Q4H PRN PO pain 6-10 Last administered on 06/16 08:55; Start 05/21/16 at 16:00 Acetaminophen/ Butalbital/ Caffeine 1 tab 1 tab ONCE ONCE PO Last administered on 05/21/16 17:42; Start 05/21/16 at 16:00; Stop 05/21/16 at 16:04; Status DC Vancomycin HCl 1000 mg/Sodium Chloride 250 ml @ 250 mls/hr HOP SORTER IV Last administered on 05/23/16 13:00; Start 05/22/16 at 16:45; Stop 05/26/16 at 16:44; Status DC Cefazolin Sodium/ Dextrose (Ancef 2 Gm Premix) 50 ml @ 100 mls/hr HOP SORTER IV ; Start 05/22/16 at 18:00; Stop 05/26/16 at 17:59; Status DC Bisacodyl (Dulcolax Supp) 10 mg DAILY PRN [place] CONSTIPATION Last administered on 05/22/16 22:31; Start 05/22/16 at 22:15; Stop 05/24/16 at 10:23; Status DC Sodium Biphosphate/ Sodium Phosphate (Fleets Enema (Adult)) 133 ml ONCE PRN [place] constipation; Start 05/22/16 at 22:15; Stop 05/23/16 at 22:14; Status Cancel Midazolam HCl (Versed Inj) 5 mg STK-MED ONCE .ROUTE Last administered on 13:44; Start 05/23/16 at 13:44; Stop 05/23/16 at 13:45; Status DC Fentanyl Citrate (fentaNYL INJ) 250 mcg STK-MED ONCE .ROUTE Last administered on 05/23/16 13:44; Start 05/23/16 at 13:44; Stop 05/23/16 at 13:45; Status DC Heparin Sodium (Porcine) (*HEPARIN CENTRAL FLUSH PERIprocedural ONLY) 500 units STK-MED ONCE .ROUTE Last administered on 05/23/16 15:20; Start 05/23/16 at 14:30 ; Stop 05/23/16 at 14:31; Status DC Lidocaine/ Epinephrine (Xylocaine-Epi 1%-1:100,000 Inj) 20 ml STK-MED ONCE .ROUTE Last administered on 05/23/16 15:02; Start 05/23/16 at 14:30; Stop at 14:31; Status DC Midazolam HCl (Versed Inj) 5 mg STK-MED ONCE .ROUTE Last administered on 15:10; Start 05/23/16 at 15:10; Stop 05/23/16 at 15:11; Status DC Fentanyl Citrate 250 mcg 250 mcg STK-MED ONCE .ROUTE Last administered on 15:10; Start 05/23/16 at 15:10; Stop 05/23/16 at 15:11; Status DC Ceftriaxone Sodium/Sodium Chloride (Rocephin Inj/NS Inj) 100 ml @ 200 mls/hr Q24H IV Last administered on 05/30/16 17:19; Start 05/23/16 at 16:00; Stop at 09:52; Status DC IV Flush (NS Flush) DAILY IVF Last administered on 06/16/16 08:47; Start 05/24 at 09:00 Heparin Sodium (Porcine) (Heparin Central Flush) DAILY IVF Last administered on 06/14/16 08:41; Start 05/24/16 at 09:00 IV Flush (NS Flush) UNSCH PRN IVF SEE PROTOCOL Last administered on 06/04/16 04:31; Start 05/23/16 at 15:30 Heparin Sodium (Porcine) (Heparin Central Flush) UNSCH PRN IVF SEE PROTOCOL Last administered on 06/02/16 04:01; Start 05/23/16 at 15:30 Docusate Sodium (Colace) 100 mg BID PO Last administered on 06/05/16 07:58; Start 05/24/16 at 11:00; Status Hold Lactulose (Lactulose Liq) 30 ml ONCE ONCE PO Last administered on 05/24/16 12: 15; Start 05/24/16 at 10:30; Stop 05/24/16 at 10:31; Status DC Lorazepam (Ativan) 1 mg Q4HR PRN PO anxiety Last administered on 05/24/16 22:38 ; Start 05/24/16 at 13:45; Stop 05/25/16 at 09:00; Status DC Lorazepam (Ativan) 1 mg ONCE ONCE PO Last administered on 05/24/16 14:27; Start 05/24/16 at 13:45; Stop 05/24/16 at 13:46; Status DC Lorazepam (Ativan) 2 mg Q6H PRN PO anxiety Last administered on 05/27/16 07:35 ; Start 05/25/16 at 08:59; Stop 05/28/16 at 08:03; Status DC Lactulose (Lactulose Liq) 30 ml QID PO Last administered on 05/25/16 20:06; Start 05/25/16 at 13:00; Stop 05/25/16 at 21:01; Status DC Polyethylene Glycol (Miralax) 17 gm DAILY PO Last administered on 06/04/16 08: 27; Start 05/25/16 at 14:30; Stop 06/15/16 at 10:54; Status DC Lactic Acid (Lac-Hydrin 12% Lotion) 1 applic BID PRN TOPICAL irritation; Start 05/25/16 at 14:30 Sumatriptan Succinate 25 mg 25 mg ONCE ONCE PO Last administered on 05/25/16 20:06; Start 05/25/16 at 19:45; Stop 05/25/16 at 19:47; Status DC Sodium Chloride (NS 1000 ml Inj) 1,000 ml @ 100 mls/hr Q10H IV Last administered on 06/15/16 10:35; Start 05/26/16 at 09:30; Stop 06/15/16 at 10:54 ; Status DC Allopurinol (Zyloprim) 300 mg DAILY PO Last administered on 06/15/16 08:04; Start 05/26/16 at 09:30; Stop 06/15/16 at 10:19; Status DC Morphine Sulfate 2 mg 2 mg ONCE ONCE IV PUSH Last administered on 05/26/16 10: 46; Start 05/26/16 at 10:30; Stop 05/26/16 at 10:31; Status DC Idarubicin HCl 22.6 mg/Sodium Chloride 122.6 ml @ 490.4 mls/ hr Q24H IV ; Start 05/26/16 at 16:00; Stop 05/26/16 at 17:07; Status DC Granisetron HCl 1 mg/Dexamethasone Sodium Phosphate 20 mg/Sodium Chloride 56 ml @ 336 mls/hr Q24H IV ; Start 05/26/16 at 15:30; Stop 05/26/16 at 17:09; Status DC Cytarabine 189 mg/ Sodium Chloride 500 ml @ 20.833 mls/ hr Q24H IV ; Start 05/26 at 17:00; Stop 05/26/16 at 17:08; Status DC Idarubicin HCl 22.6 mg/Sodium Chloride 122.6 ml @ 490.4 mls/ hr Q24H IV Last administered on 05/29/16 09:00; Start 05/27/16 at 09:00; Stop 05/29/16 at 09:14 ; Status DC Cytarabine 189 mg/ Sodium Chloride 500 ml @ 20.833 mls/ hr Q24H IV Last administered on 06/03/16 04:14; Start 05/27/16 at 10:00; Stop 06/03/16 at 09:59 ; Status DC Granisetron HCl/ Dexamethasone Sodium Phosphate/ Sodium Chloride (Kytril Inj/ Decadron Inj/NS Inj) 56 ml @ 336 mls/hr Q24H IV Last administered on 22:22; Start 05/27/16 at 08:30; Stop 06/02/16 at 08:39; Status DC Morphine Sulfate (Morphine Inj) 2 mg Q2HR PRN IV PUSH SEVERE BREAKTHROUGH PAIN Last administered on 06/15/16 18:55; Start 05/27/16 at 08:45 Lactulose (Lactulose Liq) 30 ml DAILY PO Last administered on 06/05/16 07:57; Start 05/27/16 at 09:00; Stop 06/15/16 at 10:54; Status DC Diazepam (Valium) 10 mg Q12HR PO Last administered on 06/16/16 08:45; Start at 09:00 Temazepam 15 mg 15 mg HS PRN PO SLEEP Last administered on 06/01/16 22:23; Start 05/28/16 at 08:00 Sodium Chloride (NS 250 ml Inj) 250 ml @ 15 mls/hr ONCE ONCE IV Last administered on 05/29/16 14:07; Start 05/29/16 at 08:00; Stop 05/30/16 at 00:39 ; Status DC Acetaminophen (Tylenol) 650 mg Q4H PRN PO SEE LABEL COMMENTS; Start 05/29/16 at 08:00; Stop 05/29/16 at 12:01; Status DC Diphenhydramine HCl (Benadryl) 25 mg Q4H PRN PO SEE LABEL COMMENTS; Start 05/29 at 08:00; Stop 05/29/16 at 12:01; Status DC Diphenhydramine HCl (Benadryl) 25 mg Q4H PRN PO SEE LABEL COMMENTS Last administered on 05/29/16 12:54; Start 05/29/16 at 13:00; Stop 05/29/16 at 17:01 ; Status DC Acetaminophen (Tylenol) 650 mg Q4H PRN PO SEE LABEL COMMENTS Last administered on 05/29/16 12:54; Start 05/29/16 at 13:00; Stop 05/29/16 at 17:01; Status DC Diphenhydramine HCl (Benadryl) 25 mg Q4H PRN PO SEE LABEL COMMENTS Last administered on 05/29/16 21:21; Start 05/29/16 at 21:15; Stop 05/30/16 at 01:16 ; Status DC Multi-Ingredient Mouthwash/Gargle (Magic Mouthwash Adult Liq) 5 ml QID SWISH- SWAL Last administered on 06/11/16 08:45; Start 06/03/16 at 09:00; Stop at 12:03; Status DC Acyclovir (Zovirax) 400 mg Q8HR PO Last administered on 06/16/16 05:44; Start 06/03/16 at 14:00 Fluconazole (Diflucan) 200 mg DAILY PO Last administered on 06/10/16 09:22; Start 06/03/16 at 09:00; Stop 06/10/16 at 15:16; Status DC Levofloxacin 250 mg 250 mg DAILY@11 PO Last administered on 06/04/16 11:27; Start 06/03/16 at 11:00; Stop 06/05/16 at 07:46; Status DC Sodium Chloride (NS 250 ml Inj) 250 ml @ 15 mls/hr ONCE ONCE IV ; Start at 09:00; Stop 06/05/16 at 01:39; Status DC Acetaminophen (Tylenol) 650 mg Q4H PRN PO SEE LABEL COMMENTS Last administered on 06/04/16 11:27; Start 06/04/16 at 09:00; Stop 06/04/16 at 13:01; Status DC Diphenhydramine HCl 25 mg 25 mg Q4H PRN PO SEE LABEL COMMENTS Last administered on 06/04/16 11:27; Start 06/04/16 at 09:00; Stop 06/04/16 at 13:01 ; Status DC Cefepime HCl/ Sodium Chloride (Maxipime Inj/NS Inj) 100 ml @ 200 mls/hr Q12H IV Last administered on 06/05/16 10:41; Start 06/04/16 at 22:00; Stop at 13:37; Status DC Diatrizoate Meglum/ Diatrizoate Sod 18 ml 18 ml ONCE ONCE PO Last administered on 06/05/16 13:19; Start 06/05/16 at 13:00; Stop 06/05/16 at 13:01 ; Status DC Cefepime HCl/ Sodium Chloride (Maxipime Inj/NS Inj) 100 ml @ 200 mls/hr Q8H IV Last administered on 06/16/16 02:22; Start 06/05/16 at 18:00 Azithromycin 500 mg 500 mg DAILY PO Last administered on 06/10/16 09:21; Start 06/05/16 at 14:00; Stop 06/10/16 at 15:16; Status DC Vancomycin HCl 1000 mg/Sodium Chloride 250 ml @ 250 mls/hr ONCE ONCE IV Last administered on 06/05/16 14:44; Start 06/05/16 at 14:00; Stop 06/05/16 at 14:59 ; Status DC Pharmacy Profile Note (Vancomycin Consult Pharmacy) 0 ml @ 0 mls/hr UNSCH OTHER ; Start 06/05/16 at 13:45 Metronidazole 500 mg 500 mg Q8HR PO Last administered on 06/16/16 05:44; Start 06/05/16 at 14:00 Vancomycin HCl/ Sodium Chloride (Vancomycin Inj/ NS 250 ml Inj) 262.5 ml @ 250 mls/hr Q12H IV Last administered on 06/10/16 01:03; Start 06/06/16 at 00:00; Stop 06/10/16 at 15:30; Status DC Miscellaneous Information SPECIFIC LAB TO BE DRAWN:VANCOMYCIN TROUGH DATE TO... ONCE ONCE XX Last administered on 06/07/16 11:45; Start 06/07/16 at 11:45; Stop 06/07/16 at 11:46; Status DC Iohexol (Omnipaque 350 Inj) 100 ml STK-MED ONCE IV Last administered on 22:20; Start 06/05/16 at 22:20; Stop 06/05/16 at 22:21; Status DC Patient Own Medication PT OWN MED: HYDROMORPHONE 40 MG/... UNSCH OTHER ; Start 06/06/16 at 11:00 Sodium Chloride (NS 250 ml Inj) 250 ml @ 15 mls/hr ONCE ONCE IV Last administered on 06/06/16 16:45; Start 06/06/16 at 12:45; Stop 06/07/16 at 05:24 ; Status DC Acetaminophen (Tylenol) 650 mg Q4H PRN PO SEE LABEL COMMENTS Last administered on 06/06/16 16:19; Start 06/06/16 at 12:45; Stop 06/06/16 at 16:46; Status DC Diphenhydramine HCl (Benadryl) 25 mg Q4H PRN PO SEE LABEL COMMENTS Last administered on 06/06/16 16:18; Start 06/06/16 at 12:45; Stop 06/06/16 at 16:46 ; Status DC Miscellaneous Information SPECIFIC LAB TO BE VIKRAM... ONCE ONCE XX Last administered on 06/08/16 13:45; Start 06/08/16 at 11:45; Stop 06/08/16 at 11:46 ; Status DC Sodium Chloride (NS 250 ml Inj) 250 ml @ 15 mls/hr ONCE ONCE IV Last administered on 06/08/16 13:00; Start 06/08/16 at 13:00; Stop 06/09/16 at 05:39 ; Status DC Diphenhydramine HCl 25 mg 25 mg Q4H PRN PO SEE LABEL COMMENTS; Start 06/08/16 at 13:00; Stop 06/08/16 at 17:01; Status DC Sodium Chloride (NS 250 ml Inj) 250 ml @ 15 mls/hr ONCE ONCE IV Last administered on 06/09/16 11:51; Start 06/09/16 at 07:30; Stop 06/10/16 at 00:09 ; Status DC Acetaminophen (Tylenol) 650 mg Q4H PRN PO SEE LABEL COMMENTS; Start 06/09/16 at 07:30; Stop 06/09/16 at 11:31; Status DC Diphenhydramine HCl (Benadryl) 25 mg Q4H PRN PO SEE LABEL COMMENTS; Start 06/09 at 07:30; Stop 06/09/16 at 11:31; Status DC Loperamide HCl 2 mg 2 mg UNSCH PRN PO DIARRHEA Last administered on 06/15/16 08:03; Start 06/09/16 at 11:15; Stop 06/15/16 at 10:54; Status DC Magnesium Sulfate/ Dextrose 100 ml @ 100 mls/hr Q1H IV Last administered on 15:35; Start 06/10/16 at 09:15; Stop 06/10/16 at 11:14; Status DC Sodium Chloride (NS 250 ml Inj) 250 ml @ 15 mls/hr ONCE ONCE IV Last administered on 06/10/16 12:26; Start 06/10/16 at 09:30; Stop 06/11/16 at 02:09 ; Status DC Acetaminophen (Tylenol) 650 mg Q4H PRN PO SEE LABEL COMMENTS Last administered on 06/10/16 10:57; Start 06/10/16 at 09:30; Stop 06/10/16 at 13:31; Status DC Diphenhydramine HCl 25 mg 25 mg Q4H PRN PO SEE LABEL COMMENTS Last administered on 06/10/16 10:57; Start 06/10/16 at 09:30; Stop 06/10/16 at 13:31 ; Status DC Micafungin Sodium 100 mg/Sodium Chloride 100 ml @ 100 mls/hr Q24H IV Last administered on 06/15/16 13:10; Start 06/10/16 at 16:00 Vancomycin HCl/ Sodium Chloride (Vancomycin Inj/ NS 500 ml Inj) 515 ml @ 250 mls/hr Q12H IV Last administered on 06/12/16 05:32; Start 06/10/16 at 18:00; Stop 06/12/16 at 09:22; Status DC Miscellaneous Information SPECIFIC LAB TO BE DRAWN:VANCOMYCIN TROUGH DATE TO... ONCE ONCE XX Last administered on 06/12/16 05:33; Start 06/12/16 at 05:45; Stop 06/12/16 at 05:46; Status DC Vancomycin HCl/ Sodium Chloride (Vancomycin Inj/ NS 500 ml Inj) 517.5 ml @ 250 mls/hr Q12H IV Last administered on 06/14/16 05:14; Start 06/12/16 at 18:00; Stop 06/14/16 at 10:10; Status DC Miscellaneous Information SPECIFIC LAB TO BE DRAWN:VANCOMYCIN TROUGH DATE TO... ONCE ONCE XX Last administered on 06/14/16 05:15; Start 06/14/16 at 05:45; Stop 06/14/16 at 05:46; Status DC Potassium Chloride (KCl) 30 meq ONCE ONCE PO Last administered on 06/12/16 13 :21; Start 06/12/16 at 09:30; Stop 06/12/16 at 09:37; Status DC Potassium Phos/ Sodium Phos (K-Phos Neutral) 250 mg Q6HR PO Last administered on 06/16/16 05:44; Start 06/12/16 at 12:00 Lidocaine/ Epinephrine (Xylocaine-Epi 1%-1:100,000 Inj) 20 ml STK-MED ONCE .ROUTE Last administered on 06/13/16 07:27; Start 06/13/16 at 07:27; Stop at 07:28; Status DC Fentanyl Citrate (fentaNYL INJ) 250 mcg STK-MED ONCE .ROUTE Last administered on 06/13/16 07:51; Start 06/13/16 at 07:51; Stop 06/13/16 at 07:52; Status DC Midazolam HCl (Versed Inj) 5 mg STK-MED ONCE .ROUTE Last administered on 07:51; Start 06/13/16 at 07:51; Stop 06/13/16 at 07:52; Status DC Thrombin (Thrombin Top Soln) 5,000 units STK-MED ONCE .ROUTE Last administered on 06/13/16 08:41; Start 06/13/16 at 08:41; Stop 06/13/16 at 08:42; Status DC Hydromorphone HCl (Dilaudid Pf Inj) 2 mg STK-MED ONCE .ROUTE Last administered on 06/13/16 08:48; Start 06/13/16 at 08:48; Stop 06/13/16 at 08:49; Status DC Gelatin 1 foam 1 foam STK-MED ONCE .XX Last administered on 06/13/16 09:33; Start 06/13/16 at 09:33; Stop 06/13/16 at 09:34; Status DC Sodium Chloride (NS 250 ml Inj) 250 ml @ 15 mls/hr ONCE ONCE IV Last administered on 06/13/16 12:48; Start 06/13/16 at 10:00; Stop 06/14/16 at 02:39 ; Status DC Acetaminophen (Tylenol) 650 mg Q4H PRN PO SEE LABEL COMMENTS; Start 06/13/16 at 10:00; Stop 06/13/16 at 14:01; Status DC Diphenhydramine HCl 25 mg 25 mg Q4H PRN PO SEE LABEL COMMENTS Last administered on 06/13/16 11:34; Start 06/13/16 at 10:00; Stop 06/13/16 at 14:01 ; Status DC Sodium Chloride (NS 250 ml Inj) 250 ml @ 15 mls/hr ONCE ONCE IV Last administered on 06/13/16 12:48; Start 06/13/16 at 12:00; Stop 06/14/16 at 04:39 ; Status DC Acetaminophen (Tylenol) 650 mg Q4H PRN PO SEE LABEL COMMENTS; Start 06/13/16 at 12:00; Stop 06/13/16 at 16:01; Status DC Diphenhydramine HCl (Benadryl) 25 mg Q4H PRN PO SEE LABEL COMMENTS; Start 06/13 at 12:00; Stop 06/13/16 at 16:01; Status DC Diphenhydramine HCl (Benadryl) 25 mg ONCE ONCE PO Last administered on 20:42; Start 06/13/16 at 21:00; Stop 06/13/16 at 21:01; Status DC Potassium Chloride 30 meq 30 meq ONCE ONCE PO Last administered on 06/14/16 10:40; Start 06/14/16 at 09:15; Stop 06/14/16 at 09:16; Status DC Vancomycin HCl/ Sodium Chloride (Vancomycin Inj/ NS 500 ml Inj) 520 ml @ 250 mls/hr Q12H IV Last administered on 06/16/16 05:44; Start 06/14/16 at 18:00 Miscellaneous Information SPECIFIC LAB TO BE VIKRAM... ONCE ONCE XX Last administered on 06/16/16 05:44; Start 06/16/16 at 05:45; Stop 06/16/16 at 05:46 ; Status DC Diphenoxylate HCl/ Atropine 1 tab 1 tab Q6H PRN PO diarrhea Last administered on 06/15/16 13:17; Start 06/15/16 at 11:00 Sodium Chloride (NS 250 ml Inj) 250 ml @ 15 mls/hr ONCE ONCE IV ; Start at 08:30; Stop 06/17/16 at 01:09 Acetaminophen (Tylenol) 650 mg Q4H PRN PO SEE LABEL COMMENTS; Start 06/16/16 at 08:30; Stop 06/16/16 at 12:31 Diphenhydramine HCl (Benadryl) 25 mg Q4H PRN PO SEE LABEL COMMENTS; Start 06/16 at 08:30; Stop 06/16/16 at 12:31 A/P Assessment and Plan A/P (1) AML (acute myeloid leukemia) Plan: As shown on bone marrow biopsy. Medical oncology consulted and following. Status post port placement 05/23. Chemotherapy started 05/27. Patient was treated with IV fluids and allopurinol while on chemotherapy to prevent tumor lysis syndrome which are now discontinued. Hemoglobin/ PLT being monitored; transfuse with PRBC/platelet as needed per oncology. Continue with neutropenic precautions. Patient is status post bone marrow biopsy on 06/13, follow-up pathology and hematology/oncology recommendations. (2) Neutropenic fever Plan: UA positive for Klebsiella pneumonia. Patient's C. difficile negative. ID consulted. Antibiotics, antifungals and antivirals as per ID recommendations. The patient is currently on IV vancomycin, IV cefepime, oral azithromycin, oral Flagyl, oral acyclovir . (3) Pancytopenia Plan: Pancytopenia likely secondary to chemotherapy given for AML treatment. Continue to monitor CBC and follow up oncology recommendations. (4) UTI (urinary tract infection) Plan: Continue antibiotics as above and as per ID recommendations. Urine culture grew Klebsiella pneumonia. (5) GI bleed Plan: GI bleed now resolved. Patient had some episodes of rectal bleeding. (6) Anxiety Plan: Continue Valium as needed. seems stable. (7) Diarrhea resolved. repeat C diff negative (8) Dizziness Plan: CT head ordered by oncology 06/10 - No acute disease. Dizziness has now resolved. DVT prophylaxis: SCDs, no chemoprophylaxis given thrombocytopenia. Elma Feliz MD Jun 16, 2016 09:08
[2016-06-16] MEDS ORDERED: SIMETHICONE 80 MG CHEWABLE TAB CHEW PRN (09:15)
--- NOTE | 2016-06-16 10:03 | HHI.IDPN ---
Subjective Subjective Remarks Notes reviewed Has occ low grade temps Remains neutropenic Overall feels better Nothing new on C/S BM biopsy pending Antibiotics Vancomycin Cefepime Flagyl Micafungin Lines Mendoza R Past Medical History Hypothyroidism GERD Chronic back pain Peripheral edema Hemorrhoids Past Surgical History Back and neck surgery Rotator cuff surgery Pain pump placement on the right lower abdomen Hemorrhoidectomy Allergies: Coded Allergies: No Known Allergies (Verified , 05/16/16) Objective . Vital Signs Date Time Temp Pulse Resp B/P Pulse Ox O2 Delivery O2 Flow Rate FiO2 06/16/16 08:00 98.6 78 20 136/63 95 06/16/16 04:00 98.3 75 18 121/58 94 06/16/16 00:00 98.7 76 18 123/62 94 06/15/16 20:00 100.2 77 18 132/63 94 06/15/16 16:00 98.9 74 16 116/55 94 06/15/16 12:00 98.1 74 18 123/76 96 06/15/16 06/15/16 06/16/16 15:00 23:00 07:00 Intake Total 960 ml 3938 ml 2030 ml Balance 960 ml 3938 ml 2030 ml Intake Oral 960 ml 1920 ml IV Total 3938 ml 110 ml # Voids 6 7 # Bowel Movements 6 4 . Laboratory Tests Test 06/15/16 06/16/16 05:00 05:45 White Blood Count 0.6 TH/MM3 0.6 TH/MM3 Red Blood Count 2.97 MIL/MM3 2.66 MIL/MM3 Hemoglobin 9.1 GM/DL 8.3 GM/DL Hematocrit 26.6 % 23.4 % Mean Corpuscular Volume 89.5 FL 87.9 FL Mean Corpuscular Hemoglobin 30.7 PG 31.3 PG Mean Corpuscular Hemoglobin 34.3 % 35.6 % Concent Red Cell Distribution Width 13.5 % 13.5 % Platelet Count 18 TH/MM3 13 TH/MM3 Mean Platelet Volume 7.8 FL 7.9 FL Neutrophils (%) (Auto) % % Lymphocytes (%) (Auto) % % Monocytes (%) (Auto) % % Eosinophils (%) (Auto) % % Basophils (%) (Auto) % % Neutrophils # (Auto) TH/MM3 TH/MM3 Lymphocytes # (Auto) TH/MM3 TH/MM3 Monocytes # (Auto) TH/MM3 TH/MM3 Eosinophils # (Auto) TH/MM3 TH/MM3 Basophils # (Auto) TH/MM3 TH/MM3 CBC Comment AUTO DIFF AUTO DIFF Differential Total Cells 25 100 Counted Lymphocytes % 100 % 97 % Neutrophils # (Manual) 0.0 TH/MM3 0.0 TH/MM3 Differential Comment FINAL DIFF FINAL DIFF MANUAL MANUAL Platelet Estimate RARE RARE Platelet Morphology Comment NORMAL NORMAL Red Cell Morphology Comment NORMAL Neutrophils % (Manual) 2 % Monocytes % 1 % Rouleau PRESENT Laboratory Tests Test 06/15/16 06/16/16 05:00 05:45 Sodium Level 142 MEQ/L 143 MEQ/L Potassium Level 3.5 MEQ/L 3.5 MEQ/L Chloride Level 107 MEQ/L 107 MEQ/L Carbon Dioxide Level 29.4 MEQ/L 30.6 MEQ/L Anion Gap 6 MEQ/L 5 MEQ/L Blood Urea Nitrogen 9 MG/DL 12 MG/DL Creatinine 0.58 MG/DL 0.61 MG/DL Estimat Glomerular Filtration 106 ML/MIN 100 ML/MIN Rate Random Glucose 87 MG/DL 114 MG/DL Calcium Level 8.6 MG/DL 8.3 MG/DL Total Bilirubin 0.5 MG/DL 0.2 MG/DL Aspartate Amino Transf 8 U/L 11 U/L (AST/SGOT) Alanine Aminotransferase 15 U/L 16 U/L (ALT/SGPT) Alkaline Phosphatase 46 U/L 51 U/L Total Protein 6.3 GM/DL 6.1 GM/DL Albumin 2.4 GM/DL 2.3 GM/DL Imaging Abdomen/Pelvis CT 06/05/16 0000 Signed Impressions: Service Date/Time: May 22:13 - CONCLUSION: Minimal fluid in the pelvis, otherwise unremarkable. Cynthia Guardado MD Chest X-Ray 06/04/16 0000 Signed Impressions: Service Date/Time: Saturday, June 04, 2016 21:23 - CONCLUSION: No acute disease. Kilo Cotto MD Lumbar Puncture Fluoroscopy 05/23/16 0000 Signed Impressions: Service Date/Time: Monday, May 23, 2016 14:16 - CONCLUSION: Uncomplicated fluoroscopically guided lumbar puncture. Bubba Cherry MD Catheter Placement X-Ray 05/23/16 0000 Signed Impressions: Service Date/Time: Monday, May 23, 2016 14:16 - CONCLUSION: Uncomplicated Donaldson catheter placement as above. Bubba Cherry MD Bone Biopsy CT 05/20/16 0846 Signed Impressions: Service Date/Time: Friday, May 20, 2016 09:13 - CONCLUSION: 1. Uncomplicated CT guided bone marrow aspirate. 2. Uncomplicated CT guided bone marrow biopsy. Yazan Saucedo MD Head CT 05/20/16 0000 Signed Impressions: Service Date/Time: Friday, May 20, 2016 15:16 - CONCLUSION: Normal examination for a patient of this age. No significant change has occurred. Emilio Thomas MD Chest CT 05/17/16 0000 Signed Impressions: Service Date/Time: Tuesday, May 17, 2016 15:14 - CONCLUSION: 1. 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 There are trace to very small bilateral pleural effusions and mild cardiomegaly noted. 2. No lobar consolidation. 3. Upper limits of normal to mildly enlarged mediastinal and bilateral hilar lymph nodes, nonspecific but presumably reactive. Bravo Mendez MD Physical Exam GENERAL: awake and alert, not in any respiratory distress. SKIN: Warm and dry. Has stable red papular rash in her back. Petechial rash in her L leg HEENT: Pale conjunctivae. No scleral icterus. Moist oral mucosa. No lesions noted NECK: Supple, nontender, no meningeal signs. CARDIOVASCULAR: Regular rate and rhythm without murmurs, gallops, or rubs. RESPIRATORY: Clear to auscultation. Donaldson catheter with no evidence of infection GASTROINTESTINAL: Abdomen soft, nondistended, bowel sounds are present, no tenderness. No rebound or guarding. She has her pain pump RLQ no evidence of infection MUSCULOSKELETAL: Extremities without clubbing, cyanosis, or edema. No calf tenderness. NEURO: Non focal PSYCH: Normal affect, calm and cooperative LINE: Donaldson cath with no evidence of infection Assessment & Plan Remarks IMPRESSION Neutropenic fever, patient with newly Dx AML, on induction chemotherapy - has had mucositis - has cough, better, CXR negative - UA ok - has diarrhea, C diff neg - has line - temps low grade AML, on induction chemo Diarrhea, C diff negative, better Headache, new - better - CT head negative RECOMMENDATION Continue cefepime Continue acyclovir for prophylaxis Continue Flagyl Continue vancomycin Continue Micafungin Monitor temps Follow counts - once counts up, D/C Abx - she has received adequate Rx for her Kleb UTI Monitor progress Await BM biopsy results Diane Wynne MD Jun 16, 2016 10:03
--- NOTE | 2016-06-16 11:39 | PD.ONC.PN ---
Subjective Subjective Remarks Tmax 100.2 overnight. patient very excited to hear results of flow cytometry. She is continuing to complain of belching. No diarrhea since last night. No bleeding. Objective Data Date Time Temp Pulse Resp B/P Pulse Ox O2 Delivery O2 Flow Rate FiO2 06/16/16 08:00 98.6 78 20 136/63 95 06/16/16 04:00 98.3 75 18 121/58 94 06/16/16 00:00 98.7 76 18 123/62 94 06/15/16 20:00 100.2 77 18 132/63 94 06/15/16 16:00 98.9 74 16 116/55 94 06/15/16 12:00 98.1 74 18 123/76 96 06/16/16 06/16/16 06/16/16 07:00 15:00 23:00 Intake Total 2030 ml Balance 2030 ml Result Diagram: 06/16/16 0545 06/16/16 0545 Laboratory Results Laboratory Tests Test 06/15/16 06/16/16 06/16/16 13:35 05:45 09:08 Stool C. difficile Toxin (PCR) NEGATIVE Stl C. difficile Toxin PRESUMPTIVE Epiderm 027 NEGATIVE White Blood Count 0.6 TH/MM3 Red Blood Count 2.66 MIL/MM3 Hemoglobin 8.3 GM/DL Hematocrit 23.4 % Mean Corpuscular Volume 87.9 FL Mean Corpuscular Hemoglobin 31.3 PG Mean Corpuscular Hemoglobin 35.6 % Concent Red Cell Distribution Width 13.5 % Platelet Count 13 TH/MM3 Mean Platelet Volume 7.9 FL Neutrophils (%) (Auto) % Lymphocytes (%) (Auto) % Monocytes (%) (Auto) % Eosinophils (%) (Auto) % Basophils (%) (Auto) % Neutrophils # (Auto) TH/MM3 Lymphocytes # (Auto) TH/MM3 Monocytes # (Auto) TH/MM3 Eosinophils # (Auto) TH/MM3 Basophils # (Auto) TH/MM3 CBC Comment AUTO DIFF Differential Total Cells 100 Counted Neutrophils % (Manual) 2 % Lymphocytes % 97 % Monocytes % 1 % Neutrophils # (Manual) 0.0 TH/MM3 Differential Comment FINAL DIFF MANUAL Platelet Estimate RARE Platelet Morphology Comment NORMAL Rouleau PRESENT Sodium Level 143 MEQ/L Potassium Level 3.5 MEQ/L Chloride Level 107 MEQ/L Carbon Dioxide Level 30.6 MEQ/L Anion Gap 5 MEQ/L Blood Urea Nitrogen 12 MG/DL Creatinine 0.61 MG/DL Estimat Glomerular Filtration 100 ML/MIN Rate Random Glucose 114 MG/DL Calcium Level 8.3 MG/DL Total Bilirubin 0.2 MG/DL Aspartate Amino Transf 11 U/L (AST/SGOT) Alanine Aminotransferase 16 U/L (ALT/SGPT) Alkaline Phosphatase 51 U/L Total Protein 6.1 GM/DL Albumin 2.3 GM/DL Vancomycin Level Trough 20.1 MCG/ML Blood Bank Comment Administered Medications Medications (Trade) Dose Ordered Sig/Prashant Route PRN Reason Start Time Stop Time Status Last Admin Dose Admin Carisoprodol (Soma) 350 mg TID PRN PO PAIN 05/16/16 17:30 06/15/16 08:03 Furosemide (Lasix) 20 mg DAILY PO 05/17/16 09:00 06/16/16 08:46 Gabapentin (Neurontin) 300 mg TID PO 05/16/16 18:00 06/16/16 08:45 Levothyroxine Sodium (Synthroid) 25 mcg DAILY@06 PO 05/17/16 06:00 06/16/16 05:44 Potassium Chloride (KCl) 10 meq DAILY PO 05/17/16 09:00 06/16/16 08:45 Famotidine (Pepcid) 20 mg BID PO 05/16/16 21:00 06/16/16 08:46 IV Flush (NS Flush) 2 ml BID IV 05/16/16 21:00 06/16/16 08:46 Ondansetron HCl (Zofran Inj) 4 mg Q6H PRN IV NAUSEA 05/16/16 17:45 06/11/16 08:42 Acetaminophen (Tylenol) 650 mg Q6HR PRN PO headache 05/17/16 06:30 06/14/16 20:06 Oxycodone/ Acetaminophen (Percocet 5-325 Mg) 1 tab Q4H PRN PO pain 1-5 05/20/16 10:00 06/14/16 11:36 Pantoprazole Sodium (Protonix) 40 mg DAILY PO 05/22/16 09:00 06/16/16 08:45 Oxycodone HCl (Roxicodone) 10 mg Q4H PRN PO pain 6-10 05/21/16 16:00 06/16/16 08:55 IV Flush (NS Flush) DAILY IVF 05/24/16 09:00 06/16/16 08:47 Heparin Sodium (Porcine) (Heparin Central Flush) DAILY IVF 05/24/16 09:00 06/14/16 08:41 IV Flush (NS Flush) UNSCH PRN IVF SEE PROTOCOL 05/23/16 15:30 06/04/16 04:31 Heparin Sodium (Porcine) (Heparin Central Flush) UNSCH PRN IVF SEE PROTOCOL 05/23/16 15:30 06/02/16 04:01 Docusate Sodium (Colace) 100 mg BID PO 05/24/16 11:00 Hold 06/05/16 07:58 Morphine Sulfate (Morphine Inj) 2 mg Q2HR PRN IV PUSH SEVERE BREAKTHROUGH PAIN 05/27/16 08:45 06/15/16 18:55 Diazepam (Valium) 10 mg Q12HR PO 05/28/16 09:00 06/16/16 08:45 Temazepam (Restoril) 15 mg HS PRN PO SLEEP 05/28/16 08:00 06/01/16 22:23 Acyclovir 400 mg 400 mg Q8HR PO 06/03/16 14:00 06/16/16 05:44 Cefepime HCl/ Sodium Chloride (Maxipime Inj/NS Inj) 100 ml @ 200 mls/hr Q8H IV 06/05/16 18:00 06/16/16 10:46 Metronidazole 500 mg 500 mg Q8HR PO 06/05/16 14:00 06/16/16 05:44 Micafungin Sodium/ Sodium Chloride (Mycamine Inj/NS Inj) 100 ml @ 100 mls/hr Q24H IV 06/10/16 16:00 06/15/16 13:10 Potassium Phos/ Sodium Phos (K-Phos Neutral) 250 mg Q6HR PO 06/12/16 12:00 06/16/16 05:44 Diphenoxylate HCl/ Atropine (Lomotil Tab) 1 tab Q6H PRN PO diarrhea 06/15/16 11:00 06/15/16 13:17 Objective Remarks GENERAL: Middle aged female, lying in bed. She is very excited and cheerful today. SKIN: Warm and dry. Donaldsno catheter, in place, right chest wall. HEAD: Normocephalic. EYES: No injection or drainage. NECK: Supple, trachea midline. CARDIOVASCULAR: Regular rate and rhythm. RESPIRATORY: Breath sounds equal bilaterally. No accessory muscle use. GASTROINTESTINAL: Abdomen soft, non-tender. no masses. EXTREMITIES: No cyanosis. no edema. NEUROLOGICAL: awake and alert, no focal deficit. Assessment/Plan Problem List: (1) AML (acute myeloid leukemia) Status: Acute Plan: 06/16/16: D20: waiting on bone marrow recovery. flow shows only 0.08% blasts. awaiting pathology. no diarrhea since last night. fs faxed to [facility]pr for follow up after discharge. 06/15/16: diarrhea worsening. suspect abx side effect. will stop allopurinol as this also may be contributing. 06/14/16: D19. no transfusion needed today. mild headache. monitor. Having some diarrhea, C. difficile negative 2. 06/13/16: D18. BMB today. no nausea. stable. 06/12/16:D17: Intermittent headache. Blood counts stable. Bone marrow biopsy tomorrow. 06/11/16: D16. Doing well today. Counts stable. Headache improved; CT brain negative. Will plan for bone marrow biopsy with IR on Thursday. 06/10/16: D15. 1 unit plts. dizzy w/ headache. CT brain pending 06/09/16:D14. 2 units pRBC today. 06/08/16: No issues overnight. Plt's are low at 11,000. Likely will drop again tomorrow, so we will transfuse x1 dose today. No bleeding. 06/07/16: Afebrile. Neutropenic precautions continue. 06/06/16: afebrile overnight. continue abx per ID. pain pump refilled. 06/05/16: spiked fever overnight. started on Cefepime. Levaquin stopped. ID consulted. CT ab/pelvis negative 06/04/16: D9. 1 unit plt 06/03/16: D8 chemo finishes late tonight. started on acyclovir/diflucan/levaquin for prophylaxis. 06/01/16: D6. nauseated. otherwise no events. continue chemo. 05/31/16:D5. no events. 05/30/16: D4 chemotherapy. no transfusion today. 05/29/16: D3 chemotherapy. Tolerated well Blood counts trending lower. Transfuse PRBC 2U. CSF cytology negative. 05/28/16: Tolerated chemo well, no significant side effect. Blood counts started to trend down. 05/27/16: D1. Abril-C + Idarubicin. AML w/ intermediate risk cytogenetics. (2) Pancytopenia Status: Acute Plan: transfuse for platelets less than 10k and a Hgb of less than 7. (3) presence of pain pump Status: Chronic Plan: --patient with intrathecal pain pump --managed by Dr. Omer outpatient --pain pump refilled on 06/06/16 Assessment 61y/o female with AML, s/p induction with ABRIL-C + KELSEA. Plan 1. 1 unit platelets today 2. await bone marrow recovery--plan to stop all antibiotics when patient WBC recovers 3. case management consult to assist with finding out which hospitals [facility] will allow her to be referred to for possible transplant. Attending Statement The exam, history, and the medical decision-making described in the above note were completed with the assistance of the mid-level provider. I reviewed and agree with the findings presented. I attest that I had a [id number] encounter with the patient on the same day, and personally performed and documented my assessment and findings in the medical record. Feeling better. Reviewed bone marrow flow result, appear to be in remission. Continue supportive care. Her questions were answered. Transfuse platelet. Problem Qualifiers (1) AML (acute myeloid leukemia): Qualified Code: C92.00 - Acute myeloid leukemia not having achieved remission Radha Lawrence Jun 16, 2016 11:38 Ryan Tripp MD Jun 16, 2016 16:42
[2016-06-16] MEDS: ACETAMINOPHEN 325 MG TAB PO PRN (12:08)
[2016-06-16] MEDS: ONDANSETRON HCL 4 MG/2 ML VIAL IV PRN (12:42)
[2016-06-16] MEDS: MORPHINE SULFATE 4 MG/ML INJ IV PUSH PRN (13:27)
[2016-06-16] MEDS ORDERED: diphenhydrAMINE HCL 25 MG CAP PO ONE (14:15)
[2016-06-16] MEDS: SODIUM CHLOR 0.9% 1000 ML INJ 1,000 ML IV SCH (14:27)
[2016-06-16] MEDS: MICAFUNGIN INJ 100 MG in SODIUM CHLORIDE 0.9% INJ 100 ML IV SCH (16:45)
[2016-06-16] MEDS: VANCOMYCIN INJ 1,750 MG in SODIUM CHLORID 0.9% 500 ML INJ 500 ML IV SCH (18:34)
[2016-06-16] MEDS: SODIUM CHLORIDE 0.9% FLUSH 5 ML FLUSH IVF PRN (21:15)
[2016-06-17] VITALS: BP 116/54; PULSE 77; RESP 18; TEMP 98.2; O2SAT 98
[2016-06-17] MEDS: POTASSIUM PHOSPHATE/SODIUM PHOSPHATE 250 MG TAB PO SCH ×4 (00:06→18:17)
[2016-06-17] MEDS: metroNIDAZOLE 500 MG TAB PO SCH ×4 (00:07→21:06)
[2016-06-17] MEDS: LACTATED RINGER'S 1000 ML IV SCH (01:15)
[2016-06-17] MEDS: CEFEPIME INJ 2,000 MG in SODIUM CHLORIDE 0.9% INJ 100 ML IV SCH ×3 (02:58→17:37)
[2016-06-17] MEDS: SODIUM CHLOR 0.9% 1000 ML INJ 1,000 ML IV SCH (03:09)
[2016-06-17 03:10] VITALS: BP 109/53; PULSE 71; RESP 18; TEMP 98.3; O2SAT 99
[2016-06-17 05:19] LABS: HEMATOCRIT 23.6 % (35.0-46.0); MEAN CELL VOLUME 89.3 FL (80.0-100.0); MEAN CORPUSCULAR HEMOGLOBIN 30.7 PG (27.0-34.0); MEAN CORPUSCULAR HGB CONC 34.4 % (32.0-36.0); RED BLOOD COUNT 2.64 MIL/MM3 (4.00-5.30); RED CELL DISTRIBUTION WIDTH 13.4 % (11.6-17.2); WHITE BLOOD COUNT 0.6 TH/MM3 (4.0-11.0)
[2016-06-17 05:26] LABS: HEMO FLAGS AUTO DIFF
[2016-06-17 05:27] LABS: PLATELET COUNT 18 TH/MM3 (150-450)
[2016-06-17] MEDS: LEVOTHYROXINE SODIUM 25 MCG TAB PO SCH (06:04)
[2016-06-17] MEDS: VANCOMYCIN INJ 1,750 MG in SODIUM CHLORID 0.9% 500 ML INJ 500 ML IV SCH ×2 (06:04→18:17)
[2016-06-17 08:00] VITALS: BP 114/55; PULSE 69; RESP 16; TEMP 98.6; O2SAT 95
[2016-06-17] MEDS: SODIUM CHLORIDE 0.9% FLUSH 5 ML FLUSH IV SCH ×2 (08:05→21:00)
[2016-06-17] MEDS: ACYCLOVIR 200 MG CAP PO SCH (08:06)
[2016-06-17] MEDS: GABAPENTIN 300 MG CAP PO SCH ×3 (08:07→18:17)
[2016-06-17] MEDS: PANTOPRAZOLE SOD 40 MG DELAYED RELEASE TAB PO SCH (08:07)
[2016-06-17] MEDS: FAMOTIDINE 20 MG TAB PO SCH ×2 (08:07→21:06)
[2016-06-17] MEDS: POTASSIUM CHLORIDE 10 MEQ CAP PO SCH (08:07)
[2016-06-17] MEDS: FUROSEMIDE 20 MG TAB PO SCH (08:07)
[2016-06-17 08:08] LABS: POLYS (SEG NEUTROPHILS) 2 % (16-70); SCAN/DIFF FINAL DIFF MANUAL; WBC DIFF SAMPLE 51
[2016-06-17] MEDS: DIAZEPAM 10 MG TAB PO SCH ×2 (08:08→21:06)
[2016-06-17 08:09] LABS: PLATELET ESTIMATE SMEAR RARE (NORMAL); PLATELET MORPHOLOGY NORMAL (NORMAL)
[2016-06-17] MEDS: PANTOPRAZOLE SOD 20 MG DELAYED RELEASE TAB PO SCH (09:00)
--- NOTE | 2016-06-17 09:10 | PD.ONC.PN ---
Subjective Subjective Remarks Afebrile overnight. Patient resting comfortably. She feels much better today. She denies nausea. She ate breakfast this AM without nausea. She continues to have persistent diarrhea, but denies abdominal pain. No rash. Objective Data Date Time Temp Pulse Resp B/P Pulse Ox O2 Delivery O2 Flow Rate FiO2 06/17/16 08:00 98.6 69 16 114/55 95 06/17/16 03:10 98.3 71 18 109/53 99 06/17/16 00:00 98.2 77 18 116/54 98 06/16/16 21:20 98.3 80 18 97/51 93 06/16/16 17:25 98.1 96 18 109/53 95 06/16/16 14:17 98.0 104 16 121/60 06/16/16 12:49 97.9 99 16 165/73 99 06/16/16 12:20 98.6 69 16 140/67 96 06/16/16 12:15 98.1 76 18 138/63 96 Result Diagram: 06/17/16 0300 06/16/16 0545 Laboratory Results Laboratory Tests Test 06/16/16 06/16/16 06/17/16 09:08 21:10 03:00 Blood Bank Comment Blood Type O POSITIVE Pre-Transfusion DARIAN (Direct NEGATIVE Simran) Post-Transfusion DARIAN (Direct NEGATIVE Simran White Blood Count 0.6 TH/MM3 Red Blood Count 2.64 MIL/MM3 Hemoglobin 8.1 GM/DL Hematocrit 23.6 % Mean Corpuscular Volume 89.3 FL Mean Corpuscular Hemoglobin 30.7 PG Mean Corpuscular Hemoglobin 34.4 % Concent Red Cell Distribution Width 13.4 % Platelet Count 18 TH/MM3 Mean Platelet Volume 8.1 FL Neutrophils (%) (Auto) % Lymphocytes (%) (Auto) % Monocytes (%) (Auto) % Eosinophils (%) (Auto) % Basophils (%) (Auto) % Neutrophils # (Auto) TH/MM3 Lymphocytes # (Auto) TH/MM3 Monocytes # (Auto) TH/MM3 Eosinophils # (Auto) TH/MM3 Basophils # (Auto) TH/MM3 CBC Comment AUTO DIFF Differential Total Cells 51 Counted Neutrophils % (Manual) 2 % Lymphocytes % 92 % Monocytes % 6 % Neutrophils # (Manual) 0.0 TH/MM3 Differential Comment FINAL DIFF MANUAL Platelet Estimate RARE Platelet Morphology Comment NORMAL Administered Medications Medications (Trade) Dose Ordered Sig/Prashant Route PRN Reason Start Time Stop Time Status Last Admin Dose Admin Carisoprodol (Soma) 350 mg TID PRN PO PAIN 05/16/16 17:30 06/15/16 08:03 Furosemide (Lasix) 20 mg DAILY PO 05/17/16 09:00 06/17/16 08:07 Gabapentin (Neurontin) 300 mg TID PO 05/16/16 18:00 06/17/16 08:07 Levothyroxine Sodium (Synthroid) 25 mcg DAILY@06 PO 05/17/16 06:00 06/17/16 06:04 Potassium Chloride (KCl) 10 meq DAILY PO 05/17/16 09:00 06/17/16 08:07 Famotidine (Pepcid) 20 mg BID PO 05/16/16 21:00 06/17/16 08:07 IV Flush (NS Flush) 2 ml BID IV 05/16/16 21:00 06/17/16 08:05 Ondansetron HCl (Zofran Inj) 4 mg Q6H PRN IV NAUSEA 05/16/16 17:45 06/16/16 12:42 Acetaminophen (Tylenol) 650 mg Q6HR PRN PO headache 05/17/16 06:30 06/16/16 12:08 Oxycodone/ Acetaminophen (Percocet 5-325 Mg) 1 tab Q4H PRN PO pain 1-5 05/20/16 10:00 06/14/16 11:36 Pantoprazole Sodium (Protonix) 40 mg DAILY PO 05/22/16 09:00 06/17/16 08:07 Oxycodone HCl (Roxicodone) 10 mg Q4H PRN PO pain 6-10 05/21/16 16:00 06/17/16 06:11 IV Flush (NS Flush) DAILY IVF 05/24/16 09:00 06/16/16 14:26 Heparin Sodium (Porcine) (Heparin Central Flush) DAILY IVF 05/24/16 09:00 06/17/16 08:05 IV Flush (NS Flush) UNSCH PRN IVF SEE PROTOCOL 05/23/16 15:30 06/16/16 21:15 Heparin Sodium (Porcine) (Heparin Central Flush) UNSCH PRN IVF SEE PROTOCOL 05/23/16 15:30 06/02/16 04:01 Docusate Sodium (Colace) 100 mg BID PO 05/24/16 11:00 Hold 06/05/16 07:58 Morphine Sulfate (Morphine Inj) 2 mg Q2HR PRN IV PUSH SEVERE BREAKTHROUGH PAIN 05/27/16 08:45 06/16/16 13:27 Diazepam (Valium) 10 mg Q12HR PO 05/28/16 09:00 06/17/16 08:08 Temazepam 15 mg 15 mg HS PRN PO SLEEP 05/28/16 08:00 06/01/16 22:23 Cefepime HCl/ Sodium Chloride (Maxipime Inj/NS Inj) 100 ml @ 200 mls/hr Q8H IV 06/05/16 18:00 06/17/16 02:58 Metronidazole 500 mg 500 mg Q8HR PO 06/05/16 14:00 06/17/16 06:04 Micafungin Sodium/ Sodium Chloride (Mycamine Inj/NS Inj) 100 ml @ 100 mls/hr Q24H IV 06/10/16 16:00 06/16/16 16:45 Potassium Phos/ Sodium Phos 250 mg 250 mg Q6HR PO 06/12/16 12:00 06/17/16 06:04 Vancomycin HCl/ Sodium Chloride (Vancomycin Inj/ NS 500 ml Inj) 517.5 ml @ 250 mls/hr Q12H IV 06/16/16 18:00 06/17/16 06:04 Acyclovir (Zovirax) 400 mg DAILY PO 06/17/16 09:00 06/17/16 08:06 Objective Remarks GENERAL: Pleasant female, sitting up in bed in [facility]. SKIN: Warm and dry. Donaldson catheter, in place, right chest wall. HEAD: Normocephalic. EYES: No injection or drainage. NECK: Supple, trachea midline. CARDIOVASCULAR: Regular rate and rhythm. RESPIRATORY: Breath sounds equal bilaterally. No accessory muscle use. GASTROINTESTINAL: Abdomen soft, non-tender. no masses. EXTREMITIES: No cyanosis. no edema. NEUROLOGICAL: AO x 3. normal speech. moving all extremities. Assessment/Plan Problem List: (1) AML (acute myeloid leukemia) Status: Acute Plan: 06/17/16: D22. bone marrow biopsy shows no residual leukemia. awaiting bone marrow recovery. nausea resolved. diarrhea persistent. 06/16/16: D21: waiting on bone marrow recovery. flow shows only 0.08% blasts. awaiting pathology. no diarrhea since last night. fs faxed to [facility]pr for follow up after discharge. 06/15/16: diarrhea worsening. suspect abx side effect. will stop allopurinol as this also may be contributing. 06/14/16: D19. no transfusion needed today. mild headache. monitor. Having some diarrhea, C. difficile negative 2. 06/13/16: D18. BMB today. no nausea. stable. 06/12/16:D17: Intermittent headache. Blood counts stable. Bone marrow biopsy tomorrow. 06/11/16: D16. Doing well today. Counts stable. Headache improved; CT brain negative. Will plan for bone marrow biopsy with IR on Thursday. 06/10/16: D15. 1 unit plts. dizzy w/ headache. CT brain pending 06/09/16:D14. 2 units pRBC today. 06/08/16: No issues overnight. Plt's are low at 11,000. Likely will drop again tomorrow, so we will transfuse x1 dose today. No bleeding. 06/07/16: Afebrile. Neutropenic precautions continue. 06/06/16: afebrile overnight. continue abx per ID. pain pump refilled. 06/05/16: spiked fever overnight. started on Cefepime. Levaquin stopped. ID consulted. CT ab/pelvis negative 06/04/16: D9. 1 unit plt 06/03/16: D8 chemo finishes late tonight. started on acyclovir/diflucan/levaquin for prophylaxis. 06/01/16: D6. nauseated. otherwise no events. continue chemo. 05/31/16:D5. no events. 05/30/16: D4 chemotherapy. no transfusion today. 05/29/16: D3 chemotherapy. Tolerated well Blood counts trending lower. Transfuse PRBC 2U. CSF cytology negative. 05/28/16: Tolerated chemo well, no significant side effect. Blood counts started to trend down. 05/27/16: D1. Abril-C + Idarubicin. AML w/ intermediate risk cytogenetics. (2) Pancytopenia Status: Acute Plan: transfuse for platelets less than 10k and a Hgb of less than 7. (3) presence of pain pump Status: Chronic Plan: --patient with intrathecal pain pump --managed by Dr. Omer outpatient --pain pump refilled on 06/06/16 Assessment 61y/o female with AML, s/p induction with ABRIL-C + KELSEA. Plan 1. continue supportive care 2. arrange referral to tertiary care center--[facility] 3. await bone marrow recovery Attending Statement The exam, history, and the medical decision-making described in the above note were completed with the assistance of the mid-level provider. I reviewed and agree with the findings presented. I attest that I had a [id number] encounter with the patient on the same day, and personally performed and documented my assessment and findings in the medical record. +diarrhea but slightly better. No abdominal pain. No bleeding. possible transfusion reaction to platelet and w/u ongoing. Marrow has not recover yet. Continue supportive care. Problem Qualifiers (1) AML (acute myeloid leukemia): Qualified Code: C92.00 - Acute myeloid leukemia not having achieved remission Radha Lawrence Jun 17, 2016 09:10 Ryan Tripp MD Jun 17, 2016 16:32
--- NOTE | 2016-06-17 09:19 | HHI.PR ---
Subjective Remarks looks and feels better today. no new complaints. no fever. Objective Vitals Vital Signs Date Time Temp Pulse Resp B/P Pulse Ox O2 Delivery O2 Flow Rate FiO2 06/17/16 08:00 98.6 69 16 114/55 95 06/17/16 03:10 98.3 71 18 109/53 99 06/17/16 00:00 98.2 77 18 116/54 98 06/16/16 21:20 98.3 80 18 97/51 93 06/16/16 17:25 98.1 96 18 109/53 95 06/16/16 14:17 98.0 104 16 121/60 06/16/16 12:49 97.9 99 16 165/73 99 06/16/16 12:20 98.6 69 16 140/67 96 06/16/16 12:15 98.1 76 18 138/63 96 I/O 06/16/16 06/16/16 06/16/16 06/17/16 06/17/16 06/17/16 07:00 15:00 23:00 07:00 15:00 23:00 Intake Total 2030 ml 855 ml 1500 ml 2200 ml Balance 2030 ml 855 ml 1500 ml 2200 ml Intake Oral 1920 ml 480 ml 480 ml 480 ml IV Total 110 ml 375 ml 1020 ml 1720 ml # Voids 7 2 2 2 # Bowel Movements 4 1 Result Diagram: 06/17/16 0300 06/16/16 0545 Imaging Last Impressions Bone Biopsy CT 06/13/16 0000 Signed Impressions: Service Date/Time: Monday, June 13, 2016 08:35 - CONCLUSION: 1. Uncomplicated CT guided bone marrow aspirate. 2. Uncomplicated CT guided bone marrow biopsy. Juan Carlos Cherry MD FACR Head CT 06/10/16 0000 Signed Impressions: Service Date/Time: Friday, June 10, 2016 14:56 - CONCLUSION: Stable noncontrast head CT. No acute intracranial abnormality is identified. Bravo Jackman MD Abdomen/Pelvis CT 06/05/16 0000 Signed Impressions: Service Date/Time: May 22:13 - CONCLUSION: Minimal fluid in the pelvis, otherwise unremarkable. Cynthia Guardado MD Chest X-Ray 06/04/16 0000 Signed Impressions: Service Date/Time: Saturday, June 04, 2016 21:23 - CONCLUSION: No acute disease. Kilo Cotto MD Lumbar Puncture Fluoroscopy 05/23/16 0000 Signed Impressions: Service Date/Time: Monday, May 23, 2016 14:16 - CONCLUSION: Uncomplicated fluoroscopically guided lumbar puncture. Bubba Cherry MD Catheter Placement X-Ray 05/23/16 0000 Signed Impressions: Service Date/Time: Monday, May 23, 2016 14:16 - CONCLUSION: Uncomplicated Donaldson catheter placement as above. Bubba Cherry MD Chest CT 05/17/16 0000 Signed Impressions: Service Date/Time: Tuesday, May 17, 2016 15:14 - CONCLUSION: 1. 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 There are trace to very small bilateral pleural effusions and mild cardiomegaly noted. 2. No lobar consolidation. 3. Upper limits of normal to mildly enlarged mediastinal and bilateral hilar lymph nodes, nonspecific but presumably reactive. Bravo Mendez MD Objective Remarks GENERAL: This is a well-nourished, well-developed patient, in no apparent distress. CARDIOVASCULAR: Regular rate and regular rhythm without murmurs, gallops, or rubs. RESPIRATORY: Clear to auscultation. Breath sounds equal bilaterally. No wheezes , rales, or rhonchi. GASTROINTESTINAL: Abdomen soft, non-tender, nondistended. Normal, active bowel sounds MUSCULOSKELETAL: Extremities without clubbing, cyanosis, or edema. NEURO: Alert & Oriented x4 to person, place, time, situation. Moves all ext x4 Procedures EGD/ colonoscopy Bone marrow biopsy Medications and IVs Current Medications Sodium Chloride (NS 1000 ml Inj) 1,000 ml @ 1,000 mls/hr Q1H IV Last administered on 05/16/16at 15:22; Start 05/16/16 at 14:49; Stop 05/16/16 at 15 :48; Status DC IV Flush (NS Flush) 2 ml UNSCH PRN IVF FLUSH AFTER USING IV ACCESS Last administered on 05/16/16at 16:58; Start 05/16/16 at 15:00; Stop 05/16/16 at 17 :36; Status DC Pantoprazole Sodium (Protonix Inj) 40 mg ONCE ONCE IV PUSH Last administered on 05/16/16at 16:57; Start 05/16/16 at 16:45; Stop 05/16/16 at 16:46; Status DC Carisoprodol (Soma) 350 mg TID PRN PO PAIN Last administered on 06/15/16 08:03 ; Start 05/16/16 at 17:30 Furosemide (Lasix) 20 mg DAILY PO Last administered on 06/17/16 08:07; Start 05/17/16 at 09:00 Gabapentin (Neurontin) 300 mg TID PO Last administered on 06/17/16 08:07; Start 05/16/16 at 18:00 Levothyroxine Sodium (Synthroid) 25 mcg DAILY@06 PO Last administered on 06:04; Start 05/17/16 at 06:00 Potassium Chloride (KCl) 10 meq DAILY PO Last administered on 06/17/16 08:07; Start 05/17/16 at 09:00 Famotidine 20 mg 20 mg BID PO Last administered on 06/17/16 08:07; Start at 21:00 Sodium Chloride (NS 1000 ml Inj) 1,000 ml @ 75 mls/hr [id number] IV Last administered on 05/16/16at 17:59; Start 05/16/16 at 17:31; Stop 05/17/16 at 06 :50; Status DC IV Flush (NS Flush) 2 ml UNSCH PRN IV FLUSH AFTER USING IV ACCESS; Start 05/16 at 17:45 IV Flush (NS Flush) 2 ml BID IV Last administered on 06/17/16 08:05; Start at 21:00 Ondansetron HCl (Zofran Inj) 4 mg Q6H PRN IV NAUSEA Last administered on 12:42; Start 05/16/16 at 17:45 Pantoprazole Sodium (Protonix Inj) 40 mg Q24H IV PUSH Last administered on 08:42; Start 05/17/16 at 09:00; Stop 05/21/16 at 14:52; Status DC Influenza Virus Vaccine (Flu (Quadrivalent) Vaccine Inj) 0.5 ml ONCE ONCE IM Last administered on 05/17/16at 11:51; Start 05/17/16 at 10:00; Stop 05/17/16 at 10:01; Status DC Acetaminophen (Tylenol) 650 mg Q6HR PRN PO headache Last administered on 12:08; Start 05/17/16 at 06:30 Diatrizoate Meglum/ Diatrizoate Sod (Md Lyla Villalba) 18 ml ONCE ONCE PO Last administered on 05/17/16at 11:49; Start 05/17/16 at 11:15; Stop 05/17/16 at 11:16; Status DC Iohexol (Omnipaque 350 Inj) 75 ml STK-MED ONCE IV Last administered on at 15:29; Start 05/17/16 at 15:29; Stop 05/17/16 at 15:30; Status DC Diazepam (Valium) 10 mg Q12HR PO Last administered on 05/24/16 08:12; Start 05/18/16 at 12:00; Stop 05/24/16 at 13:36; Status DC Polyethylene Glycol/ Electrolytes 4000 ml 4,000 ml ONCE ONCE PO Last administered on 05/19/16 16:34; Start 05/19/16 at 16:00; Stop 05/19/16 at 16:01; Status DC Lactated Ringer's (Lr 1000 ml Inj) 1,000 ml @ 30 mls/hr Q24H IV ; Start at 01:15 Acetaminophen (Tylenol) 650 mg ONCE ONCE PO Last administered on 05/20/16 05: 00; Start 05/20/16 at 05:00; Stop 05/20/16 at 05:03; Status DC Lidocaine/ Epinephrine 20 ml 20 ml STK-MED ONCE .ROUTE Last administered on 05/20 08:36; Start 05/20/16 at 08:36; Stop 05/20/16 at 08:49; Status DC Sodium Bicarbonate (Sodium Bicarbonate 8.4% Inj) 50 ml @ As Directed STK-MED ONCE .ROUTE Last administered on 05/20/16 08:36; Start 05/20/16 at 08:36; Stop 05/20/16 at 08:50; Status DC Fentanyl Citrate (fentaNYL INJ) 250 mcg STK-MED ONCE .ROUTE Last administered on 05/20/16 08:43; Start 05/20/16 at 08:43; Stop 05/20/16 at 08:51; Status DC Midazolam HCl (Versed Inj) 5 mg STK-MED ONCE .ROUTE Last administered on 08:43; Start 05/20/16 at 08:43; Stop 05/20/16 at 08:51; Status DC Oxycodone/ Acetaminophen (Percocet 5-325 Mg) 1 tab Q4H PRN PO pain 1-5 Last administered on 06/14/16 11:36; Start 05/20/16 at 10:00 Propofol (Diprivan 200 Mg/20 ml Inj) 310 mg STK-MED ONCE IV ; Start 05/20/16 at 12:55; Stop 05/20/16 at 13:30; Status DC Mesalamine (Canasa Supp) 1,000 mg HS RECTAL ; Start 05/20/16 at 21:00; Status Hold Pantoprazole Sodium (Protonix) 40 mg DAILY PO Last administered on 06/17/16 08 :07; Start 05/22/16 at 09:00; Stop 06/17/16 at 08:57; Status DC Oxycodone HCl (Roxicodone) 10 mg Q4H PRN PO pain 6-10 Last administered on 06/17 06:11; Start 05/21/16 at 16:00 Acetaminophen/ Butalbital/ Caffeine 1 tab 1 tab ONCE ONCE PO Last administered on 05/21/16 17:42; Start 05/21/16 at 16:00; Stop 05/21/16 at 16:04; Status DC Vancomycin HCl 1000 mg/Sodium Chloride 250 ml @ 250 mls/hr APPLICATION INTEGRATION SPECIALIST IV Last administered on 05/23/16 13:00; Start 05/22/16 at 16:45; Stop 05/26/16 at 16:44; Status DC Cefazolin Sodium/ Dextrose (Ancef 2 Gm Premix) 50 ml @ 100 mls/hr APPLICATION INTEGRATION SPECIALIST IV ; Start 05/22/16 at 18:00; Stop 05/26/16 at 17:59; Status DC Bisacodyl (Dulcolax Supp) 10 mg DAILY PRN NV CONSTIPATION Last administered on 05/22/16 22:31; Start 05/22/16 at 22:15; Stop 05/24/16 at 10:23; Status DC Sodium Biphosphate/ Sodium Phosphate (Fleets Enema (Adult)) 133 ml ONCE PRN NV constipation; Start 05/22/16 at 22:15; Stop 05/23/16 at 22:14; Status Cancel Midazolam HCl (Versed Inj) 5 mg STK-MED ONCE .ROUTE Last administered on 13:44; Start 05/23/16 at 13:44; Stop 05/23/16 at 13:45; Status DC Fentanyl Citrate (fentaNYL INJ) 250 mcg STK-MED ONCE .ROUTE Last administered on 05/23/16 13:44; Start 05/23/16 at 13:44; Stop 05/23/16 at 13:45; Status DC Heparin Sodium (Porcine) (*HEPARIN CENTRAL FLUSH PERIprocedural ONLY) 500 units STK-MED ONCE .ROUTE Last administered on 05/23/16 15:20; Start 05/23/16 at 14:30 ; Stop 05/23/16 at 14:31; Status DC Lidocaine/ Epinephrine (Xylocaine-Epi 1%-1:100,000 Inj) 20 ml STK-MED ONCE .ROUTE Last administered on 05/23/16 15:02; Start 05/23/16 at 14:30; Stop at 14:31; Status DC Midazolam HCl (Versed Inj) 5 mg STK-MED ONCE .ROUTE Last administered on 15:10; Start 05/23/16 at 15:10; Stop 05/23/16 at 15:11; Status DC Fentanyl Citrate 250 mcg 250 mcg STK-MED ONCE .ROUTE Last administered on 15:10; Start 05/23/16 at 15:10; Stop 05/23/16 at 15:11; Status DC Ceftriaxone Sodium/Sodium Chloride (Rocephin Inj/NS Inj) 100 ml @ 200 mls/hr Q24H IV Last administered on 05/30/16 17:19; Start 05/23/16 at 16:00; Stop at 09:52; Status DC IV Flush (NS Flush) DAILY IVF Last administered on 06/16/16 14:26; Start 05/24 at 09:00 Heparin Sodium (Porcine) (Heparin Central Flush) DAILY IVF Last administered on 06/17/16 08:05; Start 05/24/16 at 09:00 IV Flush (NS Flush) UNSCH PRN IVF SEE PROTOCOL Last administered on 06/16/16 21:15; Start 05/23/16 at 15:30 Heparin Sodium (Porcine) (Heparin Central Flush) UNSCH PRN IVF SEE PROTOCOL Last administered on 06/02/16 04:01; Start 05/23/16 at 15:30 Docusate Sodium (Colace) 100 mg BID PO Last administered on 06/05/16 07:58; Start 05/24/16 at 11:00; Status Hold Lactulose (Lactulose Liq) 30 ml ONCE ONCE PO Last administered on 05/24/16 12: 15; Start 05/24/16 at 10:30; Stop 05/24/16 at 10:31; Status DC Lorazepam (Ativan) 1 mg Q4HR PRN PO anxiety Last administered on 05/24/16 22:38 ; Start 05/24/16 at 13:45; Stop 05/25/16 at 09:00; Status DC Lorazepam (Ativan) 1 mg ONCE ONCE PO Last administered on 05/24/16 14:27; Start 05/24/16 at 13:45; Stop 05/24/16 at 13:46; Status DC Lorazepam (Ativan) 2 mg Q6H PRN PO anxiety Last administered on 05/27/16 07:35 ; Start 05/25/16 at 08:59; Stop 05/28/16 at 08:03; Status DC Lactulose (Lactulose Liq) 30 ml QID PO Last administered on 05/25/16 20:06; Start 05/25/16 at 13:00; Stop 05/25/16 at 21:01; Status DC Polyethylene Glycol (Miralax) 17 gm DAILY PO Last administered on 06/04/16 08: 27; Start 05/25/16 at 14:30; Stop 06/15/16 at 10:54; Status DC Lactic Acid (Lac-Hydrin 12% Lotion) 1 applic BID PRN TOPICAL irritation; Start 05/25/16 at 14:30 Sumatriptan Succinate 25 mg 25 mg ONCE ONCE PO Last administered on 05/25/16 20:06; Start 05/25/16 at 19:45; Stop 05/25/16 at 19:47; Status DC Sodium Chloride (NS 1000 ml Inj) 1,000 ml @ 100 mls/hr Q10H IV Last administered on 06/15/16 10:35; Start 05/26/16 at 09:30; Stop 06/15/16 at 10:54 ; Status DC Allopurinol (Zyloprim) 300 mg DAILY PO Last administered on 06/15/16 08:04; Start 05/26/16 at 09:30; Stop 06/15/16 at 10:19; Status DC Morphine Sulfate 2 mg 2 mg ONCE ONCE IV PUSH Last administered on 05/26/16 10: 46; Start 05/26/16 at 10:30; Stop 05/26/16 at 10:31; Status DC Idarubicin HCl 22.6 mg/Sodium Chloride 122.6 ml @ 490.4 mls/ hr Q24H IV ; Start 05/26/16 at 16:00; Stop 05/26/16 at 17:07; Status DC Granisetron HCl 1 mg/Dexamethasone Sodium Phosphate 20 mg/Sodium Chloride 56 ml @ 336 mls/hr Q24H IV ; Start 05/26/16 at 15:30; Stop 05/26/16 at 17:09; Status DC Cytarabine 189 mg/ Sodium Chloride 500 ml @ 20.833 mls/ hr Q24H IV ; Start 05/26 at 17:00; Stop 05/26/16 at 17:08; Status DC Idarubicin HCl 22.6 mg/Sodium Chloride 122.6 ml @ 490.4 mls/ hr Q24H IV Last administered on 05/29/16 09:00; Start 05/27/16 at 09:00; Stop 05/29/16 at 09:14 ; Status DC Cytarabine 189 mg/ Sodium Chloride 500 ml @ 20.833 mls/ hr Q24H IV Last administered on 06/03/16 04:14; Start 05/27/16 at 10:00; Stop 06/03/16 at 09:59 ; Status DC Granisetron HCl/ Dexamethasone Sodium Phosphate/ Sodium Chloride (Kytril Inj/ Decadron Inj/NS Inj) 56 ml @ 336 mls/hr Q24H IV Last administered on 22:22; Start 05/27/16 at 08:30; Stop 06/02/16 at 08:39; Status DC Morphine Sulfate (Morphine Inj) 2 mg Q2HR PRN IV PUSH SEVERE BREAKTHROUGH PAIN Last administered on 06/16/16 13:27; Start 05/27/16 at 08:45 Lactulose (Lactulose Liq) 30 ml DAILY PO Last administered on 06/05/16 07:57; Start 05/27/16 at 09:00; Stop 06/15/16 at 10:54; Status DC Diazepam (Valium) 10 mg Q12HR PO Last administered on 06/17/16 08:08; Start at 09:00 Temazepam 15 mg 15 mg HS PRN PO SLEEP Last administered on 06/01/16 22:23; Start 05/28/16 at 08:00 Sodium Chloride (NS 250 ml Inj) 250 ml @ 15 mls/hr ONCE ONCE IV Last administered on 05/29/16 14:07; Start 05/29/16 at 08:00; Stop 05/30/16 at 00:39 ; Status DC Acetaminophen (Tylenol) 650 mg Q4H PRN PO SEE LABEL COMMENTS; Start 05/29/16 at 08:00; Stop 05/29/16 at 12:01; Status DC Diphenhydramine HCl (Benadryl) 25 mg Q4H PRN PO SEE LABEL COMMENTS; Start 05/29 at 08:00; Stop 05/29/16 at 12:01; Status DC Diphenhydramine HCl (Benadryl) 25 mg Q4H PRN PO SEE LABEL COMMENTS Last administered on 05/29/16 12:54; Start 05/29/16 at 13:00; Stop 05/29/16 at 17:01 ; Status DC Acetaminophen (Tylenol) 650 mg Q4H PRN PO SEE LABEL COMMENTS Last administered on 05/29/16 12:54; Start 05/29/16 at 13:00; Stop 05/29/16 at 17:01; Status DC Diphenhydramine HCl (Benadryl) 25 mg Q4H PRN PO SEE LABEL COMMENTS Last administered on 05/29/16 21:21; Start 05/29/16 at 21:15; Stop 05/30/16 at 01:16 ; Status DC Multi-Ingredient Mouthwash/Gargle (Magic Mouthwash Adult Liq) 5 ml QID SWISH- SWAL Last administered on 06/11/16 08:45; Start 06/03/16 at 09:00; Stop at 12:03; Status DC Acyclovir (Zovirax) 400 mg Q8HR PO Last administered on 06/16/16 05:44; Start 06/03/16 at 14:00; Stop 06/16/16 at 13:56; Status DC Fluconazole (Diflucan) 200 mg DAILY PO Last administered on 06/10/16 09:22; Start 06/03/16 at 09:00; Stop 06/10/16 at 15:16; Status DC Levofloxacin 250 mg 250 mg DAILY@11 PO Last administered on 06/04/16 11:27; Start 06/03/16 at 11:00; Stop 06/05/16 at 07:46; Status DC Sodium Chloride (NS 250 ml Inj) 250 ml @ 15 mls/hr ONCE ONCE IV ; Start at 09:00; Stop 06/05/16 at 01:39; Status DC Acetaminophen (Tylenol) 650 mg Q4H PRN PO SEE LABEL COMMENTS Last administered on 06/04/16 11:27; Start 06/04/16 at 09:00; Stop 06/04/16 at 13:01; Status DC Diphenhydramine HCl 25 mg 25 mg Q4H PRN PO SEE LABEL COMMENTS Last administered on 06/04/16 11:27; Start 06/04/16 at 09:00; Stop 06/04/16 at 13:01 ; Status DC Cefepime HCl/ Sodium Chloride (Maxipime Inj/NS Inj) 100 ml @ 200 mls/hr Q12H IV Last administered on 06/05/16 10:41; Start 06/04/16 at 22:00; Stop at 13:37; Status DC Diatrizoate Meglum/ Diatrizoate Sod 18 ml 18 ml ONCE ONCE PO Last administered on 06/05/16 13:19; Start 06/05/16 at 13:00; Stop 06/05/16 at 13:01 ; Status DC Cefepime HCl/ Sodium Chloride (Maxipime Inj/NS Inj) 100 ml @ 200 mls/hr Q8H IV Last administered on 06/17/16 02:58; Start 06/05/16 at 18:00 Azithromycin 500 mg 500 mg DAILY PO Last administered on 06/10/16 09:21; Start 06/05/16 at 14:00; Stop 06/10/16 at 15:16; Status DC Vancomycin HCl 1000 mg/Sodium Chloride 250 ml @ 250 mls/hr ONCE ONCE IV Last administered on 06/05/16 14:44; Start 06/05/16 at 14:00; Stop 06/05/16 at 14:59 ; Status DC Pharmacy Profile Note (Vancomycin Consult Pharmacy) 0 ml @ 0 mls/hr UNSCH OTHER ; Start 06/05/16 at 13:45 Metronidazole 500 mg 500 mg Q8HR PO Last administered on 06/17/16 06:04; Start 06/05/16 at 14:00 Vancomycin HCl/ Sodium Chloride (Vancomycin Inj/ NS 250 ml Inj) 262.5 ml @ 250 mls/hr Q12H IV Last administered on 06/10/16 01:03; Start 06/06/16 at 00:00; Stop 06/10/16 at 15:30; Status DC Miscellaneous Information SPECIFIC LAB TO BE DRAWN:VANCOMYCIN TROUGH DATE TO... ONCE ONCE XX Last administered on 06/07/16 11:45; Start 06/07/16 at 11:45; Stop 06/07/16 at 11:46; Status DC Iohexol (Omnipaque 350 Inj) 100 ml STK-MED ONCE IV Last administered on 22:20; Start 06/05/16 at 22:20; Stop 06/05/16 at 22:21; Status DC Patient Own Medication PT OWN MED: HYDROMORPHONE 40 MG/... UNSCH OTHER ; Start 06/06/16 at 11:00 Sodium Chloride (NS 250 ml Inj) 250 ml @ 15 mls/hr ONCE ONCE IV Last administered on 06/06/16 16:45; Start 06/06/16 at 12:45; Stop 06/07/16 at 05:24 ; Status DC Acetaminophen (Tylenol) 650 mg Q4H PRN PO SEE LABEL COMMENTS Last administered on 06/06/16 16:19; Start 06/06/16 at 12:45; Stop 06/06/16 at 16:46; Status DC Diphenhydramine HCl (Benadryl) 25 mg Q4H PRN PO SEE LABEL COMMENTS Last administered on 06/06/16 16:18; Start 06/06/16 at 12:45; Stop 06/06/16 at 16:46 ; Status DC Miscellaneous Information SPECIFIC LAB TO BE VIKRAM... ONCE ONCE XX Last administered on 06/08/16 13:45; Start 06/08/16 at 11:45; Stop 06/08/16 at 11:46 ; Status DC Sodium Chloride (NS 250 ml Inj) 250 ml @ 15 mls/hr ONCE ONCE IV Last administered on 06/08/16 13:00; Start 06/08/16 at 13:00; Stop 06/09/16 at 05:39 ; Status DC Diphenhydramine HCl 25 mg 25 mg Q4H PRN PO SEE LABEL COMMENTS; Start 06/08/16 at 13:00; Stop 06/08/16 at 17:01; Status DC Sodium Chloride (NS 250 ml Inj) 250 ml @ 15 mls/hr ONCE ONCE IV Last administered on 06/09/16 11:51; Start 06/09/16 at 07:30; Stop 06/10/16 at 00:09 ; Status DC Acetaminophen (Tylenol) 650 mg Q4H PRN PO SEE LABEL COMMENTS; Start 06/09/16 at 07:30; Stop 06/09/16 at 11:31; Status DC Diphenhydramine HCl (Benadryl) 25 mg Q4H PRN PO SEE LABEL COMMENTS; Start 06/09 at 07:30; Stop 06/09/16 at 11:31; Status DC Loperamide HCl 2 mg 2 mg UNSCH PRN PO DIARRHEA Last administered on 06/15/16 08:03; Start 06/09/16 at 11:15; Stop 06/15/16 at 10:54; Status DC Magnesium Sulfate/ Dextrose 100 ml @ 100 mls/hr Q1H IV Last administered on 15:35; Start 06/10/16 at 09:15; Stop 06/10/16 at 11:14; Status DC Sodium Chloride (NS 250 ml Inj) 250 ml @ 15 mls/hr ONCE ONCE IV Last administered on 06/10/16 12:26; Start 06/10/16 at 09:30; Stop 06/11/16 at 02:09 ; Status DC Acetaminophen (Tylenol) 650 mg Q4H PRN PO SEE LABEL COMMENTS Last administered on 06/10/16 10:57; Start 06/10/16 at 09:30; Stop 06/10/16 at 13:31; Status DC Diphenhydramine HCl 25 mg 25 mg Q4H PRN PO SEE LABEL COMMENTS Last administered on 06/10/16 10:57; Start 06/10/16 at 09:30; Stop 06/10/16 at 13:31 ; Status DC Micafungin Sodium 100 mg/Sodium Chloride 100 ml @ 100 mls/hr Q24H IV Last administered on 06/16/16 16:45; Start 06/10/16 at 16:00 Vancomycin HCl/ Sodium Chloride (Vancomycin Inj/ NS 500 ml Inj) 515 ml @ 250 mls/hr Q12H IV Last administered on 06/12/16 05:32; Start 06/10/16 at 18:00; Stop 06/12/16 at 09:22; Status DC Miscellaneous Information SPECIFIC LAB TO BE DRAWN:VANCOMYCIN TROUGH DATE TO... ONCE ONCE XX Last administered on 06/12/16 05:33; Start 06/12/16 at 05:45; Stop 06/12/16 at 05:46; Status DC Vancomycin HCl/ Sodium Chloride (Vancomycin Inj/ NS 500 ml Inj) 517.5 ml @ 250 mls/hr Q12H IV Last administered on 06/14/16 05:14; Start 06/12/16 at 18:00; Stop 06/14/16 at 10:10; Status DC Miscellaneous Information SPECIFIC LAB TO BE DRAWN:VANCOMYCIN TROUGH DATE TO... ONCE ONCE XX Last administered on 06/14/16 05:15; Start 06/14/16 at 05:45; Stop 06/14/16 at 05:46; Status DC Potassium Chloride (KCl) 30 meq ONCE ONCE PO Last administered on 06/12/16 13 :21; Start 06/12/16 at 09:30; Stop 06/12/16 at 09:37; Status DC Potassium Phos/ Sodium Phos (K-Phos Neutral) 250 mg Q6HR PO Last administered on 06/17/16 06:04; Start 06/12/16 at 12:00 Lidocaine/ Epinephrine (Xylocaine-Epi 1%-1:100,000 Inj) 20 ml STK-MED ONCE .ROUTE Last administered on 06/13/16 07:27; Start 06/13/16 at 07:27; Stop at 07:28; Status DC Fentanyl Citrate (fentaNYL INJ) 250 mcg STK-MED ONCE .ROUTE Last administered on 06/13/16 07:51; Start 06/13/16 at 07:51; Stop 06/13/16 at 07:52; Status DC Midazolam HCl (Versed Inj) 5 mg STK-MED ONCE .ROUTE Last administered on 07:51; Start 06/13/16 at 07:51; Stop 06/13/16 at 07:52; Status DC Thrombin (Thrombin Top Soln) 5,000 units STK-MED ONCE .ROUTE Last administered on 06/13/16 08:41; Start 06/13/16 at 08:41; Stop 06/13/16 at 08:42; Status DC Hydromorphone HCl (Dilaudid Pf Inj) 2 mg STK-MED ONCE .ROUTE Last administered on 06/13/16 08:48; Start 06/13/16 at 08:48; Stop 06/13/16 at 08:49; Status DC Gelatin 1 foam 1 foam STK-MED ONCE .XX Last administered on 06/13/16 09:33; Start 06/13/16 at 09:33; Stop 06/13/16 at 09:34; Status DC Sodium Chloride (NS 250 ml Inj) 250 ml @ 15 mls/hr ONCE ONCE IV Last administered on 06/13/16 12:48; Start 06/13/16 at 10:00; Stop 06/14/16 at 02:39 ; Status DC Acetaminophen (Tylenol) 650 mg Q4H PRN PO SEE LABEL COMMENTS; Start 06/13/16 at 10:00; Stop 06/13/16 at 14:01; Status DC Diphenhydramine HCl 25 mg 25 mg Q4H PRN PO SEE LABEL COMMENTS Last administered on 06/13/16 11:34; Start 06/13/16 at 10:00; Stop 06/13/16 at 14:01 ; Status DC Sodium Chloride (NS 250 ml Inj) 250 ml @ 15 mls/hr ONCE ONCE IV Last administered on 06/13/16 12:48; Start 06/13/16 at 12:00; Stop 06/14/16 at 04:39 ; Status DC Acetaminophen (Tylenol) 650 mg Q4H PRN PO SEE LABEL COMMENTS; Start 06/13/16 at 12:00; Stop 06/13/16 at 16:01; Status DC Diphenhydramine HCl (Benadryl) 25 mg Q4H PRN PO SEE LABEL COMMENTS; Start 06/13 at 12:00; Stop 06/13/16 at 16:01; Status DC Diphenhydramine HCl (Benadryl) 25 mg ONCE ONCE PO Last administered on 20:42; Start 06/13/16 at 21:00; Stop 06/13/16 at 21:01; Status DC Potassium Chloride 30 meq 30 meq ONCE ONCE PO Last administered on 06/14/16 10:40; Start 06/14/16 at 09:15; Stop 06/14/16 at 09:16; Status DC Vancomycin HCl/ Sodium Chloride (Vancomycin Inj/ NS 500 ml Inj) 520 ml @ 250 mls/hr Q12H IV Last administered on 06/16/16 05:44; Start 06/14/16 at 18:00; Stop 06/16/16 at 11:21; Status DC Miscellaneous Information SPECIFIC LAB TO BE ... ONCE ONCE XX Last administered on 06/16/16 05:44; Start 06/16/16 at 05:45; Stop 06/16/16 at 05:46 ; Status DC Diphenoxylate HCl/ Atropine 1 tab 1 tab Q6H PRN PO diarrhea Last administered on 06/15/16 13:17; Start 06/15/16 at 11:00; Stop 06/16/16 at 14:33; Status DC Sodium Chloride (NS 250 ml Inj) 250 ml @ 15 mls/hr ONCE ONCE IV Last administered on 06/16/16 12:27; Start 06/16/16 at 08:30; Stop 06/17/16 at 01:09 ; Status DC Acetaminophen (Tylenol) 650 mg Q4H PRN PO SEE LABEL COMMENTS; Start 06/16/16 at 08:30; Stop 06/16/16 at 12:31; Status DC Diphenhydramine HCl (Benadryl) 25 mg Q4H PRN PO SEE LABEL COMMENTS Last administered on 06/16/16 12:08; Start 06/16/16 at 08:30; Stop 06/16/16 at 12:31 ; Status DC Simethicone 80 mg 80 mg PCHS PRN CHEW GAS RETENTION Last administered on 12:34; Start 06/16/16 at 09:15; Stop 06/16/16 at 14:10; Status DC Vancomycin HCl/ Sodium Chloride (Vancomycin Inj/ NS 500 ml Inj) 517.5 ml @ 250 mls/hr Q12H IV Last administered on 06/17/16 06:04; Start 06/16/16 at 18:00 Miscellaneous Information SPECIFIC LAB TO BE ... ONCE ONCE XX ; Start at 05:45; Stop 06/19/16 at 05:46 Acyclovir (Zovirax) 400 mg DAILY PO Last administered on 06/17/16 08:06; Start 06/17/16 at 09:00 Diphenhydramine HCl (Benadryl) 25 mg NOW ONCE PO ; Start 06/16/16 at 14:15; Stop 06/16/16 at 14:16; Status DC Diphenhydramine HCl 25 mg 25 mg Q8H PRN PO ITCHING; Start 06/16/16 at 14:15 Sodium Chloride (NS 1000 ml Inj) 1,000 ml @ 84 mls/hr [id number] IV Last administered on 06/17/16 03:09; Start 06/16/16 at 14:30; Stop 06/17/16 at 08:52 ; Status DC Pantoprazole Sodium (Protonix) 20 mg DAILY PO ; Start 06/17/16 at 09:00 A/P Assessment and Plan A/P (1) AML (acute myeloid leukemia) Plan: As shown on bone marrow biopsy. Medical oncology consulted and following. Status post port placement 05/23. Chemotherapy started 05/27. Hemoglobin/ PLT being monitored; transfuse with PRBC/platelet as needed per oncology. Continue with neutropenic precautions. Patient is status post bone marrow biopsy on 06/13, pathology with negative for AML. hematology/oncology following. (2) Neutropenic fever Plan: UA positive for Klebsiella pneumonia. Patient's C. difficile negative. ID consulted. Antibiotics, antifungals and antivirals as per ID recommendations. The patient is currently on IV vancomycin, IV cefepime, oral azithromycin, oral Flagyl, oral acyclovir . (3) Pancytopenia Plan: Pancytopenia likely secondary to chemotherapy given for AML treatment. Continue to monitor CBC and follow up oncology recommendations. (4) UTI (urinary tract infection) Plan: Continue antibiotics as above and as per ID recommendations. Urine culture grew Klebsiella pneumonia. (5) GI bleed Plan: GI bleed now resolved. Patient had some episodes of rectal bleeding. (6) Anxiety Plan: Continue Valium as needed. seems stable. (7) Diarrhea resolved. repeat C diff negative. (8) Dizziness Plan: CT head ordered by oncology 06/10 - No acute disease. Dizziness has now resolved. DVT prophylaxis: SCDs, no chemoprophylaxis given thrombocytopenia. Discharge Planning when cleared by oncology. Elma Feliz MD Jun 17, 2016 09:19
[2016-06-17 12:00] VITALS: BP 111/54; PULSE 80; RESP 16; TEMP 98.3; O2SAT 95
[2016-06-17] MEDS ORDERED: DIPHENOXYLATE/ATROPINE 2.5 MG/0.025 MG TAB PO ONE (15:45)
[2016-06-17 16:00] VITALS: BP 119/55; PULSE 78; RESP 18; TEMP 98.8; O2SAT 96
[2016-06-17] MEDS: MICAFUNGIN INJ 100 MG in SODIUM CHLORIDE 0.9% INJ 100 ML IV SCH (16:25)
[2016-06-17] MEDS: ONDANSETRON HCL 4 MG/2 ML VIAL IV PRN (21:06)
[2016-06-17 21:20] VITALS: BP 148/67; PULSE 78; RESP 18; TEMP 98.7; O2SAT 97
[2016-06-18] MEDS: POTASSIUM PHOSPHATE/SODIUM PHOSPHATE 250 MG TAB PO SCH ×5 (00:29→22:20)
[2016-06-18 00:30] VITALS: BP 121/70; PULSE 80; RESP 18; TEMP 98.8; O2SAT 97
[2016-06-18] MEDS: LACTATED RINGER'S 1000 ML IV SCH (01:15)
[2016-06-18] MEDS: CEFEPIME INJ 2,000 MG in SODIUM CHLORIDE 0.9% INJ 100 ML IV SCH ×3 (03:21→18:17)
[2016-06-18] MEDS: LEVOTHYROXINE SODIUM 25 MCG TAB PO SCH (05:39)
[2016-06-18] MEDS: VANCOMYCIN INJ 1,750 MG in SODIUM CHLORID 0.9% 500 ML INJ 500 ML IV SCH ×2 (05:39→18:17)
[2016-06-18] MEDS: metroNIDAZOLE 500 MG TAB PO SCH ×2 (05:39→13:42)
[2016-06-18 06:00] VITALS: BP 126/58; PULSE 82; RESP 18; TEMP 98.3; O2SAT 95
[2016-06-18 06:09] LABS: EOSINOPHIL % 0.1 % (0.0-4.0); HEMATOCRIT 22.6 % (35.0-46.0); LYMPH % 93.3 % (9.0-44.0); LYMPHOCYTE # 0.5 TH/MM3 (1.0-4.8); MEAN CELL VOLUME 88.9 FL (80.0-100.0); MEAN CORPUSCULAR HEMOGLOBIN 31.2 PG (27.0-34.0); MONO % 5.6 % (0.0-8.0); PLATELET COUNT 22 TH/MM3 (150-450); RED BLOOD COUNT 2.55 MIL/MM3 (4.00-5.30); RED CELL DISTRIBUTION WIDTH 13.1 % (11.6-17.2); WHITE BLOOD COUNT 0.6 TH/MM3 (4.0-11.0)
[2016-06-18 06:17] LABS: HEMO FLAGS AUTO DIFF
[2016-06-18 06:36] LABS: BICARBONATE 29.8 MEQ/L (21.0-32.0); POTASSIUM 3.7 MEQ/L (3.5-5.1)
--- NOTE | 2016-06-18 08:04 | HHI.PR ---
Subjective Remarks resting comfortably with no distress. no diarrhea,nausea, vomiting. says that ' she feels great today'. Objective Vitals Vital Signs Date Time Temp Pulse Resp B/P Pulse Ox O2 Delivery O2 Flow Rate FiO2 06/18/16 06:00 98.3 82 18 126/58 95 06/18/16 00:30 98.8 80 18 121/70 97 06/17/16 21:20 98.7 78 18 148/67 97 06/17/16 16:00 98.8 78 18 119/55 96 06/17/16 12:00 98.3 80 16 111/54 95 I/O 06/17/16 06/17/16 06/17/16 06/18/16 06/18/16 06/18/16 07:00 15:00 23:00 07:00 15:00 23:00 Intake Total 2200 ml 480 ml 960 ml 480 ml Balance 2200 ml 480 ml 960 ml 480 ml Intake Oral 480 ml 480 ml 960 ml 480 ml IV Total 1720 ml # Voids 2 2 2 2 # Bowel Movements 3 1 Result Diagram: 06/18/16 0550 06/18/16 0550 Imaging Last Impressions Bone Biopsy CT 06/13/16 0000 Signed Impressions: Service Date/Time: Monday, June 13, 2016 08:35 - CONCLUSION: 1. Uncomplicated CT guided bone marrow aspirate. 2. Uncomplicated CT guided bone marrow biopsy. Juan Carlos Cherry MD FACR Head CT 06/10/16 0000 Signed Impressions: Service Date/Time: Friday, June 10, 2016 14:56 - CONCLUSION: Stable noncontrast head CT. No acute intracranial abnormality is identified. Bravo Jackman MD Abdomen/Pelvis CT 06/05/16 0000 Signed Impressions: Service Date/Time: May 22:13 - CONCLUSION: Minimal fluid in the pelvis, otherwise unremarkable. Cynthia Guardado MD Chest X-Ray 06/04/16 0000 Signed Impressions: Service Date/Time: Saturday, June 04, 2016 21:23 - CONCLUSION: No acute disease. Kilo Cotto MD Lumbar Puncture Fluoroscopy 05/23/16 0000 Signed Impressions: Service Date/Time: Monday, May 23, 2016 14:16 - CONCLUSION: Uncomplicated fluoroscopically guided lumbar puncture. Bubba Cherry MD Catheter Placement X-Ray 05/23/16 0000 Signed Impressions: Service Date/Time: Monday, May 23, 2016 14:16 - CONCLUSION: Uncomplicated Donaldson catheter placement as above. Bubba Cherry MD Chest CT 05/17/16 0000 Signed Impressions: Service Date/Time: Tuesday, May 17, 2016 15:14 - CONCLUSION: 1. 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 There are trace to very small bilateral pleural effusions and mild cardiomegaly noted. 2. No lobar consolidation. 3. Upper limits of normal to mildly enlarged mediastinal and bilateral hilar lymph nodes, nonspecific but presumably reactive. Bravo Mnedez MD Objective Remarks GENERAL: This is a well-nourished, well-developed patient, in no apparent distress. CARDIOVASCULAR: Regular rate and regular rhythm without murmurs, gallops, or rubs. RESPIRATORY: Clear to auscultation. Breath sounds equal bilaterally. No wheezes , rales, or rhonchi. GASTROINTESTINAL: Abdomen soft, non-tender, nondistended. Normal, active bowel sounds MUSCULOSKELETAL: Extremities without clubbing, cyanosis, or edema. NEURO: Alert & Oriented x4 to person, place, time, situation. Moves all ext x4 Procedures EGD/ colonoscopy Bone marrow biopsy Medications and IVs Current Medications Sodium Chloride (NS 1000 ml Inj) 1,000 ml @ 1,000 mls/hr Q1H IV Last administered on 05/16/16at 15:22; Start 05/16/16 at 14:49; Stop 05/16/16 at 15 :48; Status DC IV Flush (NS Flush) 2 ml UNSCH PRN IVF FLUSH AFTER USING IV ACCESS Last administered on 05/16/16 16:58; Start 05/16/16 at 15:00; Stop 05/16/16 at 17 :36; Status DC Pantoprazole Sodium (Protonix Inj) 40 mg ONCE ONCE IV PUSH Last administered on 05/16/16at 16:57; Start 05/16/16 at 16:45; Stop 05/16/16 at 16:46; Status DC Carisoprodol (Soma) 350 mg TID PRN PO PAIN Last administered on 06/15/16t 08:03 ; Start 05/16/16 at 17:30 Furosemide (Lasix) 20 mg DAILY PO Last administered on 06/17/16 08:07; Start 05/17/16 at 09:00 Gabapentin (Neurontin) 300 mg TID PO Last administered on 06/17/16 18:17; Start 05/16/16 at 18:00 Levothyroxine Sodium (Synthroid) 25 mcg DAILY@06 PO Last administered on 05:39; Start 05/17/16 at 06:00 Potassium Chloride (KCl) 10 meq DAILY PO Last administered on 06/17/16 08:07; Start 05/17/16 at 09:00 Famotidine 20 mg 20 mg BID PO Last administered on 06/17/16 21:06; Start at 21:00 Sodium Chloride (NS 1000 ml Inj) 1,000 ml @ 75 mls/hr [id number] IV Last administered on 05/16/16at 17:59; Start 05/16/16 at 17:31; Stop 05/17/16 at 06 :50; Status DC IV Flush (NS Flush) 2 ml UNSCH PRN IV FLUSH AFTER USING IV ACCESS; Start 05/16 at 17:45 IV Flush (NS Flush) 2 ml BID IV Last administered on 06/17/16 08:05; Start at 21:00 Ondansetron HCl (Zofran Inj) 4 mg Q6H PRN IV NAUSEA Last administered on 21:06; Start 05/16/16 at 17:45 Pantoprazole Sodium (Protonix Inj) 40 mg Q24H IV PUSH Last administered on 08:42; Start 05/17/16 at 09:00; Stop 05/21/16 at 14:52; Status DC Influenza Virus Vaccine (Flu (Quadrivalent) Vaccine Inj) 0.5 ml ONCE ONCE IM Last administered on 05/17/16at 11:51; Start 05/17/16 at 10:00; Stop 05/17/16 at 10:01; Status DC Acetaminophen (Tylenol) 650 mg Q6HR PRN PO headache Last administered on 12:08; Start 05/17/16 at 06:30 Diatrizoate Meglum/ Diatrizoate Sod ( Gastromorgan Liq) 18 ml ONCE ONCE PO Last administered on 05/17/16at 11:49; Start 05/17/16 at 11:15; Stop 05/17/16 at 11:16; Status DC Iohexol (Omnipaque 350 Inj) 75 ml STK-MED ONCE IV Last administered on at 15:29; Start 05/17/16 at 15:29; Stop 05/17/16 at 15:30; Status DC Diazepam (Valium) 10 mg Q12HR PO Last administered on 05/24/16 08:12; Start 05/18/16 at 12:00; Stop 05/24/16 at 13:36; Status DC Polyethylene Glycol/ Electrolytes 4000 ml 4,000 ml ONCE ONCE PO Last administered on 05/19/16 16:34; Start 05/19/16 at 16:00; Stop 05/19/16 at 16:01; Status DC Lactated Ringer's (Lr 1000 ml Inj) 1,000 ml @ 30 mls/hr Q24H IV ; Start at 01:15 Acetaminophen (Tylenol) 650 mg ONCE ONCE PO Last administered on 05/20/16 05: 00; Start 05/20/16 at 05:00; Stop 05/20/16 at 05:03; Status DC Lidocaine/ Epinephrine 20 ml 20 ml STK-MED ONCE .ROUTE Last administered on 05/20 08:36; Start 05/20/16 at 08:36; Stop 05/20/16 at 08:49; Status DC Sodium Bicarbonate (Sodium Bicarbonate 8.4% Inj) 50 ml @ As Directed STK-MED ONCE .ROUTE Last administered on 05/20/16 08:36; Start 05/20/16 at 08:36; Stop 05/20/16 at 08:50; Status DC Fentanyl Citrate (fentaNYL INJ) 250 mcg STK-MED ONCE .ROUTE Last administered on 05/20/16 08:43; Start 05/20/16 at 08:43; Stop 05/20/16 at 08:51; Status DC Midazolam HCl (Versed Inj) 5 mg STK-MED ONCE .ROUTE Last administered on 08:43; Start 05/20/16 at 08:43; Stop 05/20/16 at 08:51; Status DC Oxycodone/ Acetaminophen (Percocet 5-325 Mg) 1 tab Q4H PRN PO pain 1-5 Last administered on 06/14/16 11:36; Start 05/20/16 at 10:00 Propofol (Diprivan 200 Mg/20 ml Inj) 310 mg STK-MED ONCE IV ; Start 05/20/16 at 12:55; Stop 05/20/16 at 13:30; Status DC Mesalamine (Canasa Supp) 1,000 mg HS RECTAL ; Start 05/20/16 at 21:00; Status Hold Pantoprazole Sodium (Protonix) 40 mg DAILY PO Last administered on 06/17/16 08 :07; Start 05/22/16 at 09:00; Stop 06/17/16 at 08:57; Status DC Oxycodone HCl (Roxicodone) 10 mg Q4H PRN PO pain 6-10 Last administered on 00:30; Start 05/21/16 at 16:00 Acetaminophen/ Butalbital/ Caffeine 1 tab 1 tab ONCE ONCE PO Last administered on 05/21/16 17:42; Start 05/21/16 at 16:00; Stop 05/21/16 at 16:04; Status DC Vancomycin HCl 1000 mg/Sodium Chloride 250 ml @ 250 mls/hr PLANING MACHINE OPERATOR IV Last administered on 05/23/16 13:00; Start 05/22/16 at 16:45; Stop 05/26/16 at 16:44; Status DC Cefazolin Sodium/ Dextrose (Ancef 2 Gm Premix) 50 ml @ 100 mls/hr PLANING MACHINE OPERATOR IV ; Start 05/22/16 at 18:00; Stop 05/26/16 at 17:59; Status DC Bisacodyl (Dulcolax Supp) 10 mg DAILY PRN OR CONSTIPATION Last administered on 05/22/16 22:31; Start 05/22/16 at 22:15; Stop 05/24/16 at 10:23; Status DC Sodium Biphosphate/ Sodium Phosphate (Fleets Enema (Adult)) 133 ml ONCE PRN OR constipation; Start 05/22/16 at 22:15; Stop 05/23/16 at 22:14; Status Cancel Midazolam HCl (Versed Inj) 5 mg STK-MED ONCE .ROUTE Last administered on 13:44; Start 05/23/16 at 13:44; Stop 05/23/16 at 13:45; Status DC Fentanyl Citrate (fentaNYL INJ) 250 mcg STK-MED ONCE .ROUTE Last administered on 05/23/16 13:44; Start 05/23/16 at 13:44; Stop 05/23/16 at 13:45; Status DC Heparin Sodium (Porcine) (*HEPARIN CENTRAL FLUSH PERIprocedural ONLY) 500 units STK-MED ONCE .ROUTE Last administered on 05/23/16 15:20; Start 05/23/16 at 14:30 ; Stop 05/23/16 at 14:31; Status DC Lidocaine/ Epinephrine (Xylocaine-Epi 1%-1:100,000 Inj) 20 ml STK-MED ONCE .ROUTE Last administered on 05/23/16 15:02; Start 05/23/16 at 14:30; Stop at 14:31; Status DC Midazolam HCl (Versed Inj) 5 mg STK-MED ONCE .ROUTE Last administered on 15:10; Start 05/23/16 at 15:10; Stop 05/23/16 at 15:11; Status DC Fentanyl Citrate 250 mcg 250 mcg STK-MED ONCE .ROUTE Last administered on 15:10; Start 05/23/16 at 15:10; Stop 05/23/16 at 15:11; Status DC Ceftriaxone Sodium/Sodium Chloride (Rocephin Inj/NS Inj) 100 ml @ 200 mls/hr Q24H IV Last administered on 05/30/16 17:19; Start 05/23/16 at 16:00; Stop at 09:52; Status DC IV Flush (NS Flush) DAILY IVF Last administered on 06/16/16 14:26; Start 05/24 at 09:00 Heparin Sodium (Porcine) (Heparin Central Flush) DAILY IVF Last administered on 06/17/16 08:05; Start 05/24/16 at 09:00 IV Flush (NS Flush) UNSCH PRN IVF SEE PROTOCOL Last administered on 06/16/16 21:15; Start 05/23/16 at 15:30 Heparin Sodium (Porcine) (Heparin Central Flush) UNSCH PRN IVF SEE PROTOCOL Last administered on 06/02/16 04:01; Start 05/23/16 at 15:30 Docusate Sodium (Colace) 100 mg BID PO Last administered on 06/05/16 07:58; Start 05/24/16 at 11:00; Status Hold Lactulose (Lactulose Liq) 30 ml ONCE ONCE PO Last administered on 05/24/16 12: 15; Start 05/24/16 at 10:30; Stop 05/24/16 at 10:31; Status DC Lorazepam (Ativan) 1 mg Q4HR PRN PO anxiety Last administered on 05/24/16 22:38 ; Start 05/24/16 at 13:45; Stop 05/25/16 at 09:00; Status DC Lorazepam (Ativan) 1 mg ONCE ONCE PO Last administered on 05/24/16 14:27; Start 05/24/16 at 13:45; Stop 05/24/16 at 13:46; Status DC Lorazepam (Ativan) 2 mg Q6H PRN PO anxiety Last administered on 05/27/16 07:35 ; Start 05/25/16 at 08:59; Stop 05/28/16 at 08:03; Status DC Lactulose (Lactulose Liq) 30 ml QID PO Last administered on 05/25/16 20:06; Start 05/25/16 at 13:00; Stop 05/25/16 at 21:01; Status DC Polyethylene Glycol (Miralax) 17 gm DAILY PO Last administered on 06/04/16 08: 27; Start 05/25/16 at 14:30; Stop 06/15/16 at 10:54; Status DC Lactic Acid (Lac-Hydrin 12% Lotion) 1 applic BID PRN TOPICAL irritation; Start 05/25/16 at 14:30 Sumatriptan Succinate 25 mg 25 mg ONCE ONCE PO Last administered on 05/25/16 20:06; Start 05/25/16 at 19:45; Stop 05/25/16 at 19:47; Status DC Sodium Chloride (NS 1000 ml Inj) 1,000 ml @ 100 mls/hr Q10H IV Last administered on 06/15/16 10:35; Start 05/26/16 at 09:30; Stop 06/15/16 at 10:54 ; Status DC Allopurinol (Zyloprim) 300 mg DAILY PO Last administered on 06/15/16 08:04; Start 05/26/16 at 09:30; Stop 06/15/16 at 10:19; Status DC Morphine Sulfate 2 mg 2 mg ONCE ONCE IV PUSH Last administered on 05/26/16 10: 46; Start 05/26/16 at 10:30; Stop 05/26/16 at 10:31; Status DC Idarubicin HCl 22.6 mg/Sodium Chloride 122.6 ml @ 490.4 mls/ hr Q24H IV ; Start 05/26/16 at 16:00; Stop 05/26/16 at 17:07; Status DC Granisetron HCl 1 mg/Dexamethasone Sodium Phosphate 20 mg/Sodium Chloride 56 ml @ 336 mls/hr Q24H IV ; Start 05/26/16 at 15:30; Stop 05/26/16 at 17:09; Status DC Cytarabine 189 mg/ Sodium Chloride 500 ml @ 20.833 mls/ hr Q24H IV ; Start 05/26 at 17:00; Stop 05/26/16 at 17:08; Status DC Idarubicin HCl 22.6 mg/Sodium Chloride 122.6 ml @ 490.4 mls/ hr Q24H IV Last administered on 05/29/16 09:00; Start 05/27/16 at 09:00; Stop 05/29/16 at 09:14 ; Status DC Cytarabine 189 mg/ Sodium Chloride 500 ml @ 20.833 mls/ hr Q24H IV Last administered on 06/03/16 04:14; Start 05/27/16 at 10:00; Stop 06/03/16 at 09:59 ; Status DC Granisetron HCl/ Dexamethasone Sodium Phosphate/ Sodium Chloride (Kytril Inj/ Decadron Inj/NS Inj) 56 ml @ 336 mls/hr Q24H IV Last administered on 22:22; Start 05/27/16 at 08:30; Stop 06/02/16 at 08:39; Status DC Morphine Sulfate (Morphine Inj) 2 mg Q2HR PRN IV PUSH SEVERE BREAKTHROUGH PAIN Last administered on 06/16/16 13:27; Start 05/27/16 at 08:45 Lactulose (Lactulose Liq) 30 ml DAILY PO Last administered on 06/05/16 07:57; Start 05/27/16 at 09:00; Stop 06/15/16 at 10:54; Status DC Diazepam (Valium) 10 mg Q12HR PO Last administered on 06/17/16 21:06; Start at 09:00 Temazepam 15 mg 15 mg HS PRN PO SLEEP Last administered on 06/01/16 22:23; Start 05/28/16 at 08:00 Sodium Chloride (NS 250 ml Inj) 250 ml @ 15 mls/hr ONCE ONCE IV Last administered on 05/29/16 14:07; Start 05/29/16 at 08:00; Stop 05/30/16 at 00:39 ; Status DC Acetaminophen (Tylenol) 650 mg Q4H PRN PO SEE LABEL COMMENTS; Start 05/29/16 at 08:00; Stop 05/29/16 at 12:01; Status DC Diphenhydramine HCl (Benadryl) 25 mg Q4H PRN PO SEE LABEL COMMENTS; Start 05/29 at 08:00; Stop 05/29/16 at 12:01; Status DC Diphenhydramine HCl (Benadryl) 25 mg Q4H PRN PO SEE LABEL COMMENTS Last administered on 05/29/16 12:54; Start 05/29/16 at 13:00; Stop 05/29/16 at 17:01 ; Status DC Acetaminophen (Tylenol) 650 mg Q4H PRN PO SEE LABEL COMMENTS Last administered on 05/29/16 12:54; Start 05/29/16 at 13:00; Stop 05/29/16 at 17:01; Status DC Diphenhydramine HCl (Benadryl) 25 mg Q4H PRN PO SEE LABEL COMMENTS Last administered on 05/29/16 21:21; Start 05/29/16 at 21:15; Stop 05/30/16 at 01:16 ; Status DC Multi-Ingredient Mouthwash/Gargle (Magic Mouthwash Adult Liq) 5 ml QID SWISH- SWAL Last administered on 06/11/16 08:45; Start 06/03/16 at 09:00; Stop at 12:03; Status DC Acyclovir (Zovirax) 400 mg Q8HR PO Last administered on 06/16/16 05:44; Start 06/03/16 at 14:00; Stop 06/16/16 at 13:56; Status DC Fluconazole (Diflucan) 200 mg DAILY PO Last administered on 06/10/16 09:22; Start 06/03/16 at 09:00; Stop 06/10/16 at 15:16; Status DC Levofloxacin 250 mg 250 mg DAILY@11 PO Last administered on 06/04/16 11:27; Start 06/03/16 at 11:00; Stop 06/05/16 at 07:46; Status DC Sodium Chloride (NS 250 ml Inj) 250 ml @ 15 mls/hr ONCE ONCE IV ; Start at 09:00; Stop 06/05/16 at 01:39; Status DC Acetaminophen (Tylenol) 650 mg Q4H PRN PO SEE LABEL COMMENTS Last administered on 06/04/16 11:27; Start 06/04/16 at 09:00; Stop 06/04/16 at 13:01; Status DC Diphenhydramine HCl 25 mg 25 mg Q4H PRN PO SEE LABEL COMMENTS Last administered on 06/04/16 11:27; Start 06/04/16 at 09:00; Stop 06/04/16 at 13:01 ; Status DC Cefepime HCl/ Sodium Chloride (Maxipime Inj/NS Inj) 100 ml @ 200 mls/hr Q12H IV Last administered on 06/05/16 10:41; Start 06/04/16 at 22:00; Stop at 13:37; Status DC Diatrizoate Meglum/ Diatrizoate Sod 18 ml 18 ml ONCE ONCE PO Last administered on 06/05/16 13:19; Start 06/05/16 at 13:00; Stop 06/05/16 at 13:01 ; Status DC Cefepime HCl/ Sodium Chloride (Maxipime Inj/NS Inj) 100 ml @ 200 mls/hr Q8H IV Last administered on 06/18/16 03:21; Start 06/05/16 at 18:00 Azithromycin 500 mg 500 mg DAILY PO Last administered on 06/10/16 09:21; Start 06/05/16 at 14:00; Stop 06/10/16 at 15:16; Status DC Vancomycin HCl 1000 mg/Sodium Chloride 250 ml @ 250 mls/hr ONCE ONCE IV Last administered on 06/05/16 14:44; Start 06/05/16 at 14:00; Stop 06/05/16 at 14:59 ; Status DC Pharmacy Profile Note (Vancomycin Consult Pharmacy) 0 ml @ 0 mls/hr UNSCH OTHER ; Start 06/05/16 at 13:45 Metronidazole 500 mg 500 mg Q8HR PO Last administered on 06/18/16 05:39; Start 06/05/16 at 14:00 Vancomycin HCl/ Sodium Chloride (Vancomycin Inj/ NS 250 ml Inj) 262.5 ml @ 250 mls/hr Q12H IV Last administered on 06/10/16 01:03; Start 06/06/16 at 00:00; Stop 06/10/16 at 15:30; Status DC Miscellaneous Information SPECIFIC LAB TO BE DRAWN:VANCOMYCIN TROUGH DATE TO... ONCE ONCE XX Last administered on 06/07/16 11:45; Start 06/07/16 at 11:45; Stop 06/07/16 at 11:46; Status DC Iohexol (Omnipaque 350 Inj) 100 ml STK-MED ONCE IV Last administered on 22:20; Start 06/05/16 at 22:20; Stop 06/05/16 at 22:21; Status DC Patient Own Medication PT OWN MED: HYDROMORPHONE 40 MG/... UNSCH OTHER ; Start 06/06/16 at 11:00 Sodium Chloride (NS 250 ml Inj) 250 ml @ 15 mls/hr ONCE ONCE IV Last administered on 06/06/16 16:45; Start 06/06/16 at 12:45; Stop 06/07/16 at 05:24 ; Status DC Acetaminophen (Tylenol) 650 mg Q4H PRN PO SEE LABEL COMMENTS Last administered on 06/06/16 16:19; Start 06/06/16 at 12:45; Stop 06/06/16 at 16:46; Status DC Diphenhydramine HCl (Benadryl) 25 mg Q4H PRN PO SEE LABEL COMMENTS Last administered on 06/06/16 16:18; Start 06/06/16 at 12:45; Stop 06/06/16 at 16:46 ; Status DC Miscellaneous Information SPECIFIC LAB TO BE VIKRAM... ONCE ONCE XX Last administered on 06/08/16 13:45; Start 06/08/16 at 11:45; Stop 06/08/16 at 11:46 ; Status DC Sodium Chloride (NS 250 ml Inj) 250 ml @ 15 mls/hr ONCE ONCE IV Last administered on 06/08/16 13:00; Start 06/08/16 at 13:00; Stop 06/09/16 at 05:39 ; Status DC Diphenhydramine HCl 25 mg 25 mg Q4H PRN PO SEE LABEL COMMENTS; Start 06/08/16 at 13:00; Stop 06/08/16 at 17:01; Status DC Sodium Chloride (NS 250 ml Inj) 250 ml @ 15 mls/hr ONCE ONCE IV Last administered on 06/09/16 11:51; Start 06/09/16 at 07:30; Stop 06/10/16 at 00:09 ; Status DC Acetaminophen (Tylenol) 650 mg Q4H PRN PO SEE LABEL COMMENTS; Start 06/09/16 at 07:30; Stop 06/09/16 at 11:31; Status DC Diphenhydramine HCl (Benadryl) 25 mg Q4H PRN PO SEE LABEL COMMENTS; Start 06/09 at 07:30; Stop 06/09/16 at 11:31; Status DC Loperamide HCl 2 mg 2 mg UNSCH PRN PO DIARRHEA Last administered on 06/15/16 08:03; Start 06/09/16 at 11:15; Stop 06/15/16 at 10:54; Status DC Magnesium Sulfate/ Dextrose 100 ml @ 100 mls/hr Q1H IV Last administered on 15:35; Start 06/10/16 at 09:15; Stop 06/10/16 at 11:14; Status DC Sodium Chloride (NS 250 ml Inj) 250 ml @ 15 mls/hr ONCE ONCE IV Last administered on 06/10/16 12:26; Start 06/10/16 at 09:30; Stop 06/11/16 at 02:09 ; Status DC Acetaminophen (Tylenol) 650 mg Q4H PRN PO SEE LABEL COMMENTS Last administered on 06/10/16 10:57; Start 06/10/16 at 09:30; Stop 06/10/16 at 13:31; Status DC Diphenhydramine HCl 25 mg 25 mg Q4H PRN PO SEE LABEL COMMENTS Last administered on 06/10/16 10:57; Start 06/10/16 at 09:30; Stop 06/10/16 at 13:31 ; Status DC Micafungin Sodium 100 mg/Sodium Chloride 100 ml @ 100 mls/hr Q24H IV Last administered on 06/17/16 16:25; Start 06/10/16 at 16:00 Vancomycin HCl/ Sodium Chloride (Vancomycin Inj/ NS 500 ml Inj) 515 ml @ 250 mls/hr Q12H IV Last administered on 06/12/16 05:32; Start 06/10/16 at 18:00; Stop 06/12/16 at 09:22; Status DC Miscellaneous Information SPECIFIC LAB TO BE DRAWN:VANCOMYCIN TROUGH DATE TO... ONCE ONCE XX Last administered on 06/12/16 05:33; Start 06/12/16 at 05:45; Stop 06/12/16 at 05:46; Status DC Vancomycin HCl/ Sodium Chloride (Vancomycin Inj/ NS 500 ml Inj) 517.5 ml @ 250 mls/hr Q12H IV Last administered on 06/14/16 05:14; Start 06/12/16 at 18:00; Stop 06/14/16 at 10:10; Status DC Miscellaneous Information SPECIFIC LAB TO BE DRAWN:VANCOMYCIN TROUGH DATE TO... ONCE ONCE XX Last administered on 06/14/16 05:15; Start 06/14/16 at 05:45; Stop 06/14/16 at 05:46; Status DC Potassium Chloride (KCl) 30 meq ONCE ONCE PO Last administered on 06/12/16 13 :21; Start 06/12/16 at 09:30; Stop 06/12/16 at 09:37; Status DC Potassium Phos/ Sodium Phos (K-Phos Neutral) 250 mg Q6HR PO Last administered on 06/18/16 05:39; Start 06/12/16 at 12:00 Lidocaine/ Epinephrine (Xylocaine-Epi 1%-1:100,000 Inj) 20 ml STK-MED ONCE .ROUTE Last administered on 06/13/16 07:27; Start 06/13/16 at 07:27; Stop at 07:28; Status DC Fentanyl Citrate (fentaNYL INJ) 250 mcg STK-MED ONCE .ROUTE Last administered on 06/13/16 07:51; Start 06/13/16 at 07:51; Stop 06/13/16 at 07:52; Status DC Midazolam HCl (Versed Inj) 5 mg STK-MED ONCE .ROUTE Last administered on 07:51; Start 06/13/16 at 07:51; Stop 06/13/16 at 07:52; Status DC Thrombin (Thrombin Top Soln) 5,000 units STK-MED ONCE .ROUTE Last administered on 06/13/16 08:41; Start 06/13/16 at 08:41; Stop 06/13/16 at 08:42; Status DC Hydromorphone HCl (Dilaudid Pf Inj) 2 mg STK-MED ONCE .ROUTE Last administered on 06/13/16 08:48; Start 06/13/16 at 08:48; Stop 06/13/16 at 08:49; Status DC Gelatin 1 foam 1 foam STK-MED ONCE .XX Last administered on 06/13/16 09:33; Start 06/13/16 at 09:33; Stop 06/13/16 at 09:34; Status DC Sodium Chloride (NS 250 ml Inj) 250 ml @ 15 mls/hr ONCE ONCE IV Last administered on 06/13/16 12:48; Start 06/13/16 at 10:00; Stop 06/14/16 at 02:39 ; Status DC Acetaminophen (Tylenol) 650 mg Q4H PRN PO SEE LABEL COMMENTS; Start 06/13/16 at 10:00; Stop 06/13/16 at 14:01; Status DC Diphenhydramine HCl 25 mg 25 mg Q4H PRN PO SEE LABEL COMMENTS Last administered on 06/13/16 11:34; Start 06/13/16 at 10:00; Stop 06/13/16 at 14:01 ; Status DC Sodium Chloride (NS 250 ml Inj) 250 ml @ 15 mls/hr ONCE ONCE IV Last administered on 06/13/16 12:48; Start 06/13/16 at 12:00; Stop 06/14/16 at 04:39 ; Status DC Acetaminophen (Tylenol) 650 mg Q4H PRN PO SEE LABEL COMMENTS; Start 06/13/16 at 12:00; Stop 06/13/16 at 16:01; Status DC Diphenhydramine HCl (Benadryl) 25 mg Q4H PRN PO SEE LABEL COMMENTS; Start 06/13 at 12:00; Stop 06/13/16 at 16:01; Status DC Diphenhydramine HCl (Benadryl) 25 mg ONCE ONCE PO Last administered on 20:42; Start 06/13/16 at 21:00; Stop 06/13/16 at 21:01; Status DC Potassium Chloride 30 meq 30 meq ONCE ONCE PO Last administered on 06/14/16 10:40; Start 06/14/16 at 09:15; Stop 06/14/16 at 09:16; Status DC Vancomycin HCl/ Sodium Chloride (Vancomycin Inj/ NS 500 ml Inj) 520 ml @ 250 mls/hr Q12H IV Last administered on 06/16/16 05:44; Start 06/14/16 at 18:00; Stop 06/16/16 at 11:21; Status DC Miscellaneous Information SPECIFIC LAB TO BE VIKRAM... ONCE ONCE XX Last administered on 06/16/16 05:44; Start 06/16/16 at 05:45; Stop 06/16/16 at 05:46 ; Status DC Diphenoxylate HCl/ Atropine 1 tab 1 tab Q6H PRN PO diarrhea Last administered on 06/15/16 13:17; Start 06/15/16 at 11:00; Stop 06/16/16 at 14:33; Status DC Sodium Chloride (NS 250 ml Inj) 250 ml @ 15 mls/hr ONCE ONCE IV Last administered on 06/16/16 12:27; Start 06/16/16 at 08:30; Stop 06/17/16 at 01:09 ; Status DC Acetaminophen (Tylenol) 650 mg Q4H PRN PO SEE LABEL COMMENTS; Start 06/16/16 at 08:30; Stop 06/16/16 at 12:31; Status DC Diphenhydramine HCl (Benadryl) 25 mg Q4H PRN PO SEE LABEL COMMENTS Last administered on 06/16/16 12:08; Start 06/16/16 at 08:30; Stop 06/16/16 at 12:31 ; Status DC Simethicone 80 mg 80 mg PCHS PRN CHEW GAS RETENTION Last administered on 12:34; Start 06/16/16 at 09:15; Stop 06/16/16 at 14:10; Status DC Vancomycin HCl/ Sodium Chloride (Vancomycin Inj/ NS 500 ml Inj) 517.5 ml @ 250 mls/hr Q12H IV Last administered on 06/18/16 05:39; Start 06/16/16 at 18:00 Miscellaneous Information SPECIFIC LAB TO BE VIKRAM... ONCE ONCE XX ; Start at 05:45; Stop 06/19/16 at 05:46 Acyclovir (Zovirax) 400 mg DAILY PO Last administered on 06/17/16 08:06; Start 06/17/16 at 09:00 Diphenhydramine HCl (Benadryl) 25 mg NOW ONCE PO ; Start 06/16/16 at 14:15; Stop 06/16/16 at 14:16; Status DC Diphenhydramine HCl 25 mg 25 mg Q8H PRN PO ITCHING; Start 06/16/16 at 14:15 Sodium Chloride (NS 1000 ml Inj) 1,000 ml @ 84 mls/hr [id number] IV Last administered on 06/17/16 03:09; Start 06/16/16 at 14:30; Stop 06/17/16 at 08:52 ; Status DC Pantoprazole Sodium (Protonix) 20 mg DAILY PO ; Start 06/17/16 at 09:00 Diphenoxylate HCl/ Atropine (Lomotil Tab) 1 tab NOW ONCE PO Last administered on 06/17/16 16:24; Start 06/17/16 at 15:45; Stop 06/17/16 at 15:46; Status DC A/P Assessment and Plan A/P (1) AML (acute myeloid leukemia) Plan: As shown on bone marrow biopsy. Medical oncology consulted and following. Status post port placement 05/23. Chemotherapy started 05/27. Hemoglobin/ PLT being monitored; transfuse with PRBC/platelet as needed per oncology. Continue with neutropenic precautions. Patient is status post bone marrow biopsy on 06/13, pathology with negative for AML. hematology/oncology following. (2) Neutropenic fever Plan: UA positive for Klebsiella pneumonia. Patient's C. difficile negative. ID consulted. Antibiotics, antifungals and antivirals as per ID recommendations. The patient is currently on IV vancomycin, IV cefepime, oral azithromycin, oral Flagyl, oral acyclovir . (3) Pancytopenia Plan: Pancytopenia likely secondary to chemotherapy given for AML treatment. Continue to monitor CBC and follow up oncology recommendations. (4) UTI (urinary tract infection) Plan: Continue antibiotics as above and as per ID recommendations. Urine culture grew Klebsiella pneumonia. (5) GI bleed Plan: GI bleed now resolved. Patient had some episodes of rectal bleeding. (6) Anxiety Plan: Continue Valium as needed. seems stable. (7) Diarrhea resolved. repeat C diff negative. (8) Dizziness Plan: CT head ordered by oncology 06/10 - No acute disease. Dizziness has now resolved. DVT prophylaxis: SCDs, no chemoprophylaxis given thrombocytopenia. Discharge Planning when cleared by oncology. Elma Feliz MD Jun 18, 2016 08:04
[2016-06-18 08:12] LABS: WBC DIFF SAMPLE 100
[2016-06-18 08:13] LABS: PLATELET ESTIMATE SMEAR LOW (NORMAL); PLATELET MORPHOLOGY NORMAL (NORMAL)
[2016-06-18 08:14] LABS: SCAN/DIFF FINAL DIFF MANUAL
[2016-06-18 09:30] VITALS: BP 129/61; PULSE 75; RESP 16; TEMP 98.5; O2SAT 96
[2016-06-18] MEDS: GABAPENTIN 300 MG CAP PO SCH ×3 (10:17→18:17)
[2016-06-18] MEDS: ACYCLOVIR 200 MG CAP PO SCH (10:17)
[2016-06-18] MEDS: PANTOPRAZOLE SOD 20 MG DELAYED RELEASE TAB PO SCH (10:17)
[2016-06-18] MEDS: FUROSEMIDE 20 MG TAB PO SCH (10:17)
[2016-06-18] MEDS: POTASSIUM CHLORIDE 10 MEQ CAP PO SCH (10:17)
[2016-06-18] MEDS: FAMOTIDINE 20 MG TAB PO SCH ×2 (10:17→22:20)
[2016-06-18] MEDS: DIAZEPAM 10 MG TAB PO SCH ×2 (10:17→22:20)
[2016-06-18] MEDS: SODIUM CHLORIDE 0.9% FLUSH 5 ML FLUSH IVF SCH (10:18)
[2016-06-18] MEDS: SODIUM CHLORIDE 0.9% FLUSH 5 ML FLUSH IV SCH ×2 (10:18→22:21)
--- NOTE | 2016-06-18 10:51 | PD.ONC.PN ---
Subjective Subjective Remarks Afebrile overnight. Pt resting in bed watching TV in no distress. She is quite excited when talking about her recent bone marrow bx results. She states she vomited one time last night but has not had any other issues with nausea. Diarrhea somewhat improved. She has no other complaints. Objective Data Date Time Temp Pulse Resp B/P Pulse Ox O2 Delivery O2 Flow Rate FiO2 06/18/16 09:30 98.5 75 16 129/61 96 06/18/16 06:00 98.3 82 18 126/58 95 06/18/16 00:30 98.8 80 18 121/70 97 06/17/16 21:20 98.7 78 18 148/67 97 06/17/16 16:00 98.8 78 18 119/55 96 06/17/16 12:00 98.3 80 16 111/54 95 Result Diagram: 06/18/16 0550 06/18/16 0550 Laboratory Results Laboratory Tests Test 06/18/16 05:50 White Blood Count 0.6 TH/MM3 Red Blood Count 2.55 MIL/MM3 Hemoglobin 7.9 GM/DL Hematocrit 22.6 % Mean Corpuscular Volume 88.9 FL Mean Corpuscular Hemoglobin 31.2 PG Mean Corpuscular Hemoglobin 35.0 % Concent Red Cell Distribution Width 13.1 % Platelet Count 22 TH/MM3 Mean Platelet Volume 8.6 FL Neutrophils (%) (Auto) 1.0 % Lymphocytes (%) (Auto) 93.3 % Monocytes (%) (Auto) 5.6 % Eosinophils (%) (Auto) 0.1 % Basophils (%) (Auto) 0.0 % Neutrophils # (Auto) 0.0 TH/MM3 Lymphocytes # (Auto) 0.5 TH/MM3 Monocytes # (Auto) 0.0 TH/MM3 Eosinophils # (Auto) 0.0 TH/MM3 Basophils # (Auto) 0.0 TH/MM3 CBC Comment AUTO DIFF Differential Total Cells 100 Counted Lymphocytes % 97 % Monocytes % 3 % Neutrophils # (Manual) 0.0 TH/MM3 Differential Comment FINAL DIFF MANUAL Atypical Lymphocytes % Platelet Estimate LOW Platelet Morphology Comment NORMAL Sodium Level 143 MEQ/L Potassium Level 3.7 MEQ/L Chloride Level 109 MEQ/L Carbon Dioxide Level 29.8 MEQ/L Anion Gap 4 MEQ/L Blood Urea Nitrogen 8 MG/DL Creatinine 0.50 MG/DL Estimat Glomerular Filtration 126 ML/MIN Rate Random Glucose 115 MG/DL Calcium Level 8.1 MG/DL Administered Medications Medications (Trade) Dose Ordered Sig/Prashant Route PRN Reason Start Time Stop Time Status Last Admin Dose Admin Carisoprodol (Soma) 350 mg TID PRN PO PAIN 05/16/16 17:30 06/15/16 08:03 Furosemide (Lasix) 20 mg DAILY PO 05/17/16 09:00 06/18/16 10:17 Gabapentin (Neurontin) 300 mg TID PO 05/16/16 18:00 06/18/16 10:17 Levothyroxine Sodium (Synthroid) 25 mcg DAILY@06 PO 05/17/16 06:00 06/18/16 05:39 Potassium Chloride (KCl) 10 meq DAILY PO 05/17/16 09:00 06/18/16 10:17 Famotidine (Pepcid) 20 mg BID PO 05/16/16 21:00 06/18/16 10:17 IV Flush (NS Flush) 2 ml BID IV 05/16/16 21:00 06/18/16 10:18 Ondansetron HCl (Zofran Inj) 4 mg Q6H PRN IV NAUSEA 05/16/16 17:45 06/17/16 21:06 Acetaminophen (Tylenol) 650 mg Q6HR PRN PO headache 05/17/16 06:30 06/16/16 12:08 Oxycodone/ Acetaminophen (Percocet 5-325 Mg) 1 tab Q4H PRN PO pain 1-5 05/20/16 10:00 06/14/16 11:36 Oxycodone HCl (Roxicodone) 10 mg Q4H PRN PO pain 6-10 05/21/16 16:00 06/18/16 10:16 IV Flush (NS Flush) DAILY IVF 05/24/16 09:00 06/18/16 10:18 Heparin Sodium (Porcine) (Heparin Central Flush) DAILY IVF 05/24/16 09:00 06/18/16 10:18 IV Flush (NS Flush) UNSCH PRN IVF SEE PROTOCOL 05/23/16 15:30 06/16/16 21:15 Heparin Sodium (Porcine) (Heparin Central Flush) UNSCH PRN IVF SEE PROTOCOL 05/23/16 15:30 06/02/16 04:01 Docusate Sodium (Colace) 100 mg BID PO 05/24/16 11:00 Hold 06/05/16 07:58 Morphine Sulfate (Morphine Inj) 2 mg Q2HR PRN IV PUSH SEVERE BREAKTHROUGH PAIN 05/27/16 08:45 06/16/16 13:27 Diazepam (Valium) 10 mg Q12HR PO 05/28/16 09:00 06/18/16 10:17 Temazepam 15 mg 15 mg HS PRN PO SLEEP 05/28/16 08:00 06/01/16 22:23 Cefepime HCl/ Sodium Chloride (Maxipime Inj/NS Inj) 100 ml @ 200 mls/hr Q8H IV 06/05/16 18:00 06/18/16 10:17 Metronidazole 500 mg 500 mg Q8HR PO 06/05/16 14:00 06/18/16 05:39 Micafungin Sodium/ Sodium Chloride (Mycamine Inj/NS Inj) 100 ml @ 100 mls/hr Q24H IV 06/10/16 16:00 06/17/16 16:25 Potassium Phos/ Sodium Phos 250 mg 250 mg Q6HR PO 06/12/16 12:00 06/18/16 05:39 Vancomycin HCl/ Sodium Chloride (Vancomycin Inj/ NS 500 ml Inj) 517.5 ml @ 250 mls/hr Q12H IV 06/16/16 18:00 06/18/16 05:39 Acyclovir (Zovirax) 400 mg DAILY PO 06/17/16 09:00 06/18/16 10:17 Pantoprazole Sodium (Protonix) 20 mg DAILY PO 06/17/16 09:00 06/18/16 10:17 Objective Remarks GENERAL: Pleasant female, sitting up in bed in no distress. SKIN: Warm and dry. Donaldson catheter, in place, right chest wall. HEAD: Normocephalic. EYES: No injection or drainage. NECK: Supple, trachea midline. CARDIOVASCULAR: +S1/S2. No murmur noted. RESPIRATORY: Breath sounds equal bilaterally. No accessory muscle use. GASTROINTESTINAL: Abdomen soft, non-tender. no masses. EXTREMITIES: No cyanosis. no edema. NEUROLOGICAL: AO x 3. normal speech. moving all extremities. Assessment/Plan Problem List: (1) AML (acute myeloid leukemia) Status: Acute Plan: 06/18/16: D23. Doing well. We will await counts to improve/ bone marrow recovery. Absolute neutrophil count still at 0 today. 06/17/16: D22. bone marrow biopsy shows no residual leukemia. awaiting bone marrow recovery. nausea resolved. diarrhea persistent. 06/16/16: D21: waiting on bone marrow recovery. flow shows only 0.08% blasts. awaiting pathology. no diarrhea since last night. fs faxed to [facility]pr for follow up after discharge. 06/15/16: diarrhea worsening. suspect abx side effect. will stop allopurinol as this also may be contributing. 06/14/16: D19. no transfusion needed today. mild headache. monitor. Having some diarrhea, C. difficile negative 2. 06/13/16: D18. BMB today. no nausea. stable. 06/12/16:D17: Intermittent headache. Blood counts stable. Bone marrow biopsy tomorrow. 06/11/16: D16. Doing well today. Counts stable. Headache improved; CT brain negative. Will plan for bone marrow biopsy with IR on Thursday. 06/10/16: D15. 1 unit plts. dizzy w/ headache. CT brain pending 06/09/16:D14. 2 units pRBC today. 06/08/16: No issues overnight. Plt's are low at 11,000. Likely will drop again tomorrow, so we will transfuse x1 dose today. No bleeding. 06/07/16: Afebrile. Neutropenic precautions continue. 06/06/16: afebrile overnight. continue abx per ID. pain pump refilled. 06/05/16: spiked fever overnight. started on Cefepime. Levaquin stopped. ID consulted. CT ab/pelvis negative 06/04/16: D9. 1 unit plt 06/03/16: D8 chemo finishes late tonight. started on acyclovir/diflucan/levaquin for prophylaxis. 06/01/16: D6. nauseated. otherwise no events. continue chemo. 05/31/16:D5. no events. 05/30/16: D4 chemotherapy. no transfusion today. 05/29/16: D3 chemotherapy. Tolerated well Blood counts trending lower. Transfuse PRBC 2U. CSF cytology negative. 05/28/16: Tolerated chemo well, no significant side effect. Blood counts started to trend down. 05/27/16: D1. Abril-C + Idarubicin. AML w/ intermediate risk cytogenetics. (2) Pancytopenia Status: Acute Plan: transfuse for platelets less than 10k and a Hgb of less than 7. (3) presence of pain pump Status: Chronic Plan: --patient with intrathecal pain pump --managed by Dr. Omer outpatient --pain pump refilled on 06/06/16 Assessment 61y/o female with AML, s/p induction with ABRIL-C + KELSEA. Plan 1. Await recovery of blood counts; ANC remains 0. 2. Daily labs. 3. Pt will be referred to tertiary center at [facility] after discharge. Attending Statement The exam, history, and the medical decision-making described in the above note were completed with the assistance of the mid-level provider. I reviewed and agree with the findings presented. I attest that I had a [id number] encounter with the patient on the same day, and personally performed and documented my assessment and findings in the medical record. Diarrhea has improved. Bone marrow has not recovered yet. No need for transfusion today. Continue supportive care. Problem Qualifiers (1) AML (acute myeloid leukemia): Qualified Code: C92.00 - Acute myeloid leukemia not having achieved remission Marissa Juarez Jun 18, 2016 10:51 Ryan Tripp MD Jun 18, 2016 13:32
[2016-06-18 13:30] VITALS: BP 118/59; PULSE 78; RESP 16; TEMP 98.2; O2SAT 92
[2016-06-18] MEDS: MICAFUNGIN INJ 100 MG in SODIUM CHLORIDE 0.9% INJ 100 ML IV SCH (16:20)
[2016-06-18 18:00] VITALS: BP 123/60; PULSE 87; RESP 18; O2SAT 95
[2016-06-18 22:29] VITALS: BP 147/72; PULSE 75; RESP 18; TEMP 98.3; O2SAT 97
[2016-06-19] MEDS: LACTATED RINGER'S 1000 ML IV SCH (01:15)
[2016-06-19] MEDS: CEFEPIME INJ 2,000 MG in SODIUM CHLORIDE 0.9% INJ 100 ML IV SCH ×3 (02:56→18:31)
[2016-06-19 04:00] VITALS: BP 134/63; PULSE 81; RESP 18; TEMP 98.8; O2SAT 95
[2016-06-19] MEDS: POTASSIUM PHOSPHATE/SODIUM PHOSPHATE 250 MG TAB PO SCH ×4 (04:55→23:18)
[2016-06-19] MEDS: VANCOMYCIN INJ 1,750 MG in SODIUM CHLORID 0.9% 500 ML INJ 500 ML IV SCH (04:55)
[2016-06-19] MEDS: LEVOTHYROXINE SODIUM 25 MCG TAB PO SCH (04:55)
[2016-06-19] MEDS ORDERED: PHARMACY ORDERED LAB XX ONE (05:45)
[2016-06-19 06:41] LABS: BICARBONATE 31.1 MEQ/L (21.0-32.0); POTASSIUM 4.2 MEQ/L (3.5-5.1)
[2016-06-19 06:43] LABS: VANCOMYCIN TROUGH 23.3 MCG/ML (5.0-10.0)
[2016-06-19 06:49] LABS: HEMATOCRIT 22.6 % (35.0-46.0); MEAN CELL VOLUME 90.4 FL (80.0-100.0); MEAN CORPUSCULAR HEMOGLOBIN 31.3 PG (27.0-34.0); MEAN CORPUSCULAR HGB CONC 34.7 % (32.0-36.0); PLATELET COUNT 32 TH/MM3 (150-450); WHITE BLOOD COUNT 0.5 TH/MM3 (4.0-11.0)
[2016-06-19 06:58] LABS: HEMO FLAGS AUTO DIFF
[2016-06-19 08:00] VITALS: BP 142/68; PULSE 65; RESP 16; TEMP 96.4; O2SAT 96
[2016-06-19 08:10] LABS: EOSINOPHILS 2 % (0-4); WBC DIFF SAMPLE 50
[2016-06-19 08:13] LABS: PLATELET ESTIMATE SMEAR LOW (NORMAL); PLATELET MORPHOLOGY NORMAL (NORMAL); SCAN/DIFF FINAL DIFF MANUAL
[2016-06-19] MEDS: FAMOTIDINE 20 MG TAB PO SCH ×2 (08:18→21:52)
[2016-06-19] MEDS: ACYCLOVIR 200 MG CAP PO SCH (08:18)
[2016-06-19] MEDS: POTASSIUM CHLORIDE 10 MEQ CAP PO SCH (08:19)
[2016-06-19] MEDS: DIAZEPAM 10 MG TAB PO SCH ×2 (08:19→21:52)
[2016-06-19] MEDS: PANTOPRAZOLE SOD 20 MG DELAYED RELEASE TAB PO SCH (08:19)
[2016-06-19] MEDS: GABAPENTIN 300 MG CAP PO SCH ×3 (08:19→18:30)
[2016-06-19] MEDS: FUROSEMIDE 20 MG TAB PO SCH (08:19)
[2016-06-19] MEDS: SODIUM CHLORIDE 0.9% FLUSH 5 ML FLUSH IVF SCH (08:20)
[2016-06-19] MEDS: SODIUM CHLORIDE 0.9% FLUSH 5 ML FLUSH IV SCH ×2 (08:20→21:53)
--- NOTE | 2016-06-19 08:59 | PD.ONC.PN ---
Subjective Subjective Remarks Afebrile overnight. Pt sitting up in bed talking with RN. She has already been walking the halls. She states she feels good today. No complaints. Objective Data Date Time Temp Pulse Resp B/P Pulse Ox O2 Delivery O2 Flow Rate FiO2 06/19/16 04:00 98.8 81 18 134/63 95 06/18/16 22:29 98.3 75 18 147/72 97 06/18/16 18:24 16 06/18/16 18:00 87 18 123/60 95 06/18/16 13:30 98.2 78 16 118/59 92 06/18/16 09:30 98.5 75 16 129/61 96 Result Diagram: 06/19/16 0500 06/19/16 0500 Laboratory Results Laboratory Tests Test 06/19/16 05:00 White Blood Count 0.5 TH/MM3 Red Blood Count 2.50 MIL/MM3 Hemoglobin 7.8 GM/DL Hematocrit 22.6 % Mean Corpuscular Volume 90.4 FL Mean Corpuscular Hemoglobin 31.3 PG Mean Corpuscular Hemoglobin 34.7 % Concent Red Cell Distribution Width 13.0 % Platelet Count 32 TH/MM3 Mean Platelet Volume 9.2 FL Neutrophils (%) (Auto) % Lymphocytes (%) (Auto) % Monocytes (%) (Auto) % Eosinophils (%) (Auto) % Basophils (%) (Auto) % Neutrophils # (Auto) TH/MM3 Lymphocytes # (Auto) TH/MM3 Monocytes # (Auto) TH/MM3 Eosinophils # (Auto) TH/MM3 Basophils # (Auto) TH/MM3 CBC Comment AUTO DIFF Differential Total Cells 50 Counted Lymphocytes % 96 % Monocytes % 2 % Eosinophils % 2 % Neutrophils # (Manual) 0.0 TH/MM3 Differential Comment FINAL DIFF MANUAL Platelet Estimate LOW Platelet Morphology Comment NORMAL Red Cell Morphology Comment NORMAL Sodium Level 141 MEQ/L Potassium Level 4.2 MEQ/L Chloride Level 106 MEQ/L Carbon Dioxide Level 31.1 MEQ/L Anion Gap 4 MEQ/L Blood Urea Nitrogen 8 MG/DL Creatinine 0.61 MG/DL Estimat Glomerular Filtration 100 ML/MIN Rate Random Glucose 98 MG/DL Calcium Level 8.7 MG/DL Vancomycin Level Trough 23.3 MCG/ML Administered Medications Medications (Trade) Dose Ordered Sig/Prashant Route PRN Reason Start Time Stop Time Status Last Admin Dose Admin Carisoprodol (Soma) 350 mg TID PRN PO PAIN 05/16/16 17:30 06/15/16 08:03 Furosemide (Lasix) 20 mg DAILY PO 05/17/16 09:00 06/19/16 08:19 Gabapentin (Neurontin) 300 mg TID PO 05/16/16 18:00 06/19/16 08:19 Levothyroxine Sodium (Synthroid) 25 mcg DAILY@06 PO 05/17/16 06:00 06/19/16 04:55 Potassium Chloride (KCl) 10 meq DAILY PO 05/17/16 09:00 06/19/16 08:19 Famotidine (Pepcid) 20 mg BID PO 05/16/16 21:00 06/19/16 08:18 IV Flush (NS Flush) 2 ml BID IV 05/16/16 21:00 06/19/16 08:20 Ondansetron HCl (Zofran Inj) 4 mg Q6H PRN IV NAUSEA 05/16/16 17:45 06/17/16 21:06 Acetaminophen (Tylenol) 650 mg Q6HR PRN PO headache 05/17/16 06:30 06/16/16 12:08 Oxycodone/ Acetaminophen (Percocet 5-325 Mg) 1 tab Q4H PRN PO pain 1-5 05/20/16 10:00 06/14/16 11:36 Oxycodone HCl (Roxicodone) 10 mg Q4H PRN PO pain 6-10 05/21/16 16:00 06/19/16 02:56 IV Flush (NS Flush) DAILY IVF 05/24/16 09:00 06/19/16 08:20 Heparin Sodium (Porcine) (Heparin Central Flush) DAILY IVF 05/24/16 09:00 06/19/16 08:20 IV Flush (NS Flush) UNSCH PRN IVF SEE PROTOCOL 05/23/16 15:30 06/16/16 21:15 Heparin Sodium (Porcine) (Heparin Central Flush) UNSCH PRN IVF SEE PROTOCOL 05/23/16 15:30 06/02/16 04:01 Docusate Sodium (Colace) 100 mg BID PO 05/24/16 11:00 Hold 06/05/16 07:58 Morphine Sulfate (Morphine Inj) 2 mg Q2HR PRN IV PUSH SEVERE BREAKTHROUGH PAIN 05/27/16 08:45 06/16/16 13:27 Diazepam (Valium) 10 mg Q12HR PO 05/28/16 09:00 06/19/16 08:19 Temazepam 15 mg 15 mg HS PRN PO SLEEP 05/28/16 08:00 06/01/16 22:23 Cefepime HCl 2000 mg/Sodium Chloride 100 ml @ 200 mls/hr Q8H IV 06/05/16 18:00 06/19/16 02:56 Micafungin Sodium/ Sodium Chloride (Mycamine Inj/NS Inj) 100 ml @ 100 mls/hr Q24H IV 06/10/16 16:00 06/18/16 16:20 Potassium Phos/ Sodium Phos 250 mg 250 mg Q6HR PO 06/12/16 12:00 06/19/16 04:55 Vancomycin HCl/ Sodium Chloride (Vancomycin Inj/ NS 500 ml Inj) 517.5 ml @ 250 mls/hr Q12H IV 06/16/16 18:00 06/19/16 04:55 Acyclovir (Zovirax) 400 mg DAILY PO 06/17/16 09:00 06/19/16 08:18 Pantoprazole Sodium (Protonix) 20 mg DAILY PO 06/17/16 09:00 06/19/16 08:19 Objective Remarks GENERAL: Pleasant female, sitting up in bed in no distress. SKIN: Warm and dry. Donaldson catheter, in place, right chest wall. HEAD: Normocephalic. EYES: No injection or drainage. NECK: Supple, trachea midline. CARDIOVASCULAR: +S1/S2. No murmur noted. RESPIRATORY: Breath sounds equal bilaterally. No accessory muscle use. GASTROINTESTINAL: Abdomen soft, non-tender. no masses. EXTREMITIES: No cyanosis. no edema. NEUROLOGICAL: AO x 3. normal speech. moving all extremities. Assessment/Plan Problem List: (1) AML (acute myeloid leukemia) Status: Acute Plan: 06/19/16: D24. Platelet counts starting to improve. Continue to wait for white cells to recover. Pt doing very well clinically. 06/18/16: D23. Doing well. We will await counts to improve/ bone marrow recovery. Absolute neutrophil count still at 0 today. 06/17/16: D22. bone marrow biopsy shows no residual leukemia. awaiting bone marrow recovery. nausea resolved. diarrhea persistent. 06/16/16: D21: waiting on bone marrow recovery. flow shows only 0.08% blasts. awaiting pathology. no diarrhea since last night. fs faxed to npr for follow up after discharge. 06/15/16: diarrhea worsening. suspect abx side effect. will stop allopurinol as this also may be contributing. 06/14/16: D19. no transfusion needed today. mild headache. monitor. Having some diarrhea, C. difficile negative 2. 06/13/16: D18. BMB today. no nausea. stable. 06/12/16:D17: Intermittent headache. Blood counts stable. Bone marrow biopsy tomorrow. 06/11/16: D16. Doing well today. Counts stable. Headache improved; CT brain negative. Will plan for bone marrow biopsy with IR on Thursday. 06/10/16: D15. 1 unit plts. dizzy w/ headache. CT brain pending 06/09/16:D14. 2 units pRBC today. 06/08/16: No issues overnight. Plt's are low at 11,000. Likely will drop again tomorrow, so we will transfuse x1 dose today. No bleeding. 06/07/16: Afebrile. Neutropenic precautions continue. 06/06/16: afebrile overnight. continue abx per ID. pain pump refilled. 06/05/16: spiked fever overnight. started on Cefepime. Levaquin stopped. ID consulted. CT ab/pelvis negative 06/04/16: D9. 1 unit plt 06/03/16: D8 chemo finishes late tonight. started on acyclovir/diflucan/levaquin for prophylaxis. 06/01/16: D6. nauseated. otherwise no events. continue chemo. 05/31/16:D5. no events. 05/30/16: D4 chemotherapy. no transfusion today. 05/29/16: D3 chemotherapy. Tolerated well Blood counts trending lower. Transfuse PRBC 2U. CSF cytology negative. 05/28/16: Tolerated chemo well, no significant side effect. Blood counts started to trend down. 05/27/16: D1. Abril-C + Idarubicin. AML w/ intermediate risk cytogenetics. (2) Pancytopenia Status: Acute Plan: transfuse for platelets less than 10k and a Hgb of less than 7. (3) presence of pain pump Status: Chronic Plan: --patient with intrathecal pain pump --managed by Dr. Omer outpatient --pain pump refilled on 06/06/16 Assessment 61y/o female with AML, s/p induction with ABRIL-C + KELSEA. Plan 1. No transfusion today. 2. Platelets starting to recover. 3. Daily CBC. 4.Supportive care Attending Statement The exam, history, and the medical decision-making described in the above note were completed with the assistance of the mid-level provider. I reviewed and agree with the findings presented. I attest that I had a [id number] encounter with the patient on the same day, and personally performed and documented my assessment and findings in the medical record.Feeling better, no diarrhea this am. No CP/SOB. Platelet recovering but WBC still low. Extensive discussion with patient and her sister at the bedside regarding further consolidation treatment. Plan to refer her to [facility] to discuss whether she needs consolidation stem cell transplant. They have many questions which ere answered. Problem Qualifiers (1) AML (acute myeloid leukemia): Qualified Code: C92.00 - Acute myeloid leukemia not having achieved remission Marissa Juarez Jun 19, 2016 08:59 Ryan Tripp MD Jun 19, 2016 09:23
--- NOTE | 2016-06-19 09:08 | HHI.PR ---
Subjective Remarks resting comfortably with no distress. no new complaints. no fever. Objective Vitals Vital Signs Date Time Temp Pulse Resp B/P Pulse Ox O2 Delivery O2 Flow Rate FiO2 06/19/16 04:00 98.8 81 18 134/63 95 06/18/16 22:29 98.3 75 18 147/72 97 06/18/16 18:24 16 06/18/16 18:00 87 18 123/60 95 06/18/16 13:30 98.2 78 16 118/59 92 06/18/16 09:30 98.5 75 16 129/61 96 I/O 06/18/16 06/18/16 06/18/16 06/19/16 06/19/16 06/19/16 07:00 15:00 23:00 07:00 15:00 23:00 Intake Total 480 ml 720 ml 600 ml Balance 480 ml 720 ml 600 ml Intake Oral 480 ml 720 ml 600 ml # Voids 2 8 3 3 Result Diagram: 06/19/16 0500 06/19/16 0500 Imaging Last Impressions Bone Biopsy CT 06/13/16 0000 Signed Impressions: Service Date/Time: Monday, June 13, 2016 08:35 - CONCLUSION: 1. Uncomplicated CT guided bone marrow aspirate. 2. Uncomplicated CT guided bone marrow biopsy. Juan Carlos Cherry MD FACR Head CT 06/10/16 0000 Signed Impressions: Service Date/Time: Friday, June 10, 2016 14:56 - CONCLUSION: Stable noncontrast head CT. No acute intracranial abnormality is identified. Bravo Jackman MD Abdomen/Pelvis CT 06/05/16 0000 Signed Impressions: Service Date/Time: May 22:13 - CONCLUSION: Minimal fluid in the pelvis, otherwise unremarkable. Cynthia Guardado MD Chest X-Ray 06/04/16 0000 Signed Impressions: Service Date/Time: Saturday, June 04, 2016 21:23 - CONCLUSION: No acute disease. Kilo Cotto MD Lumbar Puncture Fluoroscopy 05/23/16 0000 Signed Impressions: Service Date/Time: Monday, May 23, 2016 14:16 - CONCLUSION: Uncomplicated fluoroscopically guided lumbar puncture. Bubba Cherry MD Catheter Placement X-Ray 05/23/16 0000 Signed Impressions: Service Date/Time: Monday, May 23, 2016 14:16 - CONCLUSION: Uncomplicated Donaldson catheter placement as above. Bubba Cherry MD Chest CT 05/17/16 0000 Signed Impressions: Service Date/Time: Tuesday, May 17, 2016 15:14 - CONCLUSION: 1. 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 There are trace to very small bilateral pleural effusions and mild cardiomegaly noted. 2. No lobar consolidation. 3. Upper limits of normal to mildly enlarged mediastinal and bilateral hilar lymph nodes, nonspecific but presumably reactive. Bravo Mendez MD Objective Remarks GENERAL: This is a well-nourished, well-developed patient, in no apparent distress. CARDIOVASCULAR: Regular rate and regular rhythm without murmurs, gallops, or rubs. RESPIRATORY: Clear to auscultation. Breath sounds equal bilaterally. No wheezes , rales, or rhonchi. GASTROINTESTINAL: Abdomen soft, non-tender, nondistended. Normal, active bowel sounds MUSCULOSKELETAL: Extremities without clubbing, cyanosis, or edema. NEURO: Alert & Oriented x4 to person, place, time, situation. Moves all ext x4 Procedures EGD/ colonoscopy Bone marrow biopsy Medications and IVs Current Medications Sodium Chloride (NS 1000 ml Inj) 1,000 ml @ 1,000 mls/hr Q1H IV Last administered on 05/16/16 15:22; Start 05/16/16 at 14:49; Stop 05/16/16 at 15 :48; Status DC IV Flush (NS Flush) 2 ml UNSCH PRN IVF FLUSH AFTER USING IV ACCESS Last administered on 05/16/16 16:58; Start 05/16/16 at 15:00; Stop 05/16/16 at 17 :36; Status DC Pantoprazole Sodium (Protonix Inj) 40 mg ONCE ONCE IV PUSH Last administered on 05/16/16 16:57; Start 05/16/16 at 16:45; Stop 05/16/16 at 16:46; Status DC Carisoprodol (Soma) 350 mg TID PRN PO PAIN Last administered on 06/15/16 08:03 ; Start 05/16/16 at 17:30 Furosemide (Lasix) 20 mg DAILY PO Last administered on 06/19/16 08:19; Start 05/17/16 at 09:00 Gabapentin (Neurontin) 300 mg TID PO Last administered on 06/19/16 08:19; Start 05/16/16 at 18:00 Levothyroxine Sodium (Synthroid) 25 mcg DAILY@06 PO Last administered on 04:55; Start 05/17/16 at 06:00 Potassium Chloride (KCl) 10 meq DAILY PO Last administered on 06/19/16 08:19; Start 05/17/16 at 09:00 Famotidine 20 mg 20 mg BID PO Last administered on 06/19/16 08:18; Start 05/16 at 21:00 Sodium Chloride (NS 1000 ml Inj) 1,000 ml @ 75 mls/hr [id number] IV Last administered on 05/16/16at 17:59; Start 05/16/16 at 17:31; Stop 05/17/16 at 06 :50; Status DC IV Flush (NS Flush) 2 ml UNSCH PRN IV FLUSH AFTER USING IV ACCESS; Start 05/16 at 17:45 IV Flush (NS Flush) 2 ml BID IV Last administered on 06/19/16 08:20; Start at 21:00 Ondansetron HCl (Zofran Inj) 4 mg Q6H PRN IV NAUSEA Last administered on 21:06; Start 05/16/16 at 17:45 Pantoprazole Sodium (Protonix Inj) 40 mg Q24H IV PUSH Last administered on 08:42; Start 05/17/16 at 09:00; Stop 05/21/16 at 14:52; Status DC Influenza Virus Vaccine (Flu (Quadrivalent) Vaccine Inj) 0.5 ml ONCE ONCE IM Last administered on 05/17/16at 11:51; Start 05/17/16 at 10:00; Stop 05/17/16 at 10:01; Status DC Acetaminophen (Tylenol) 650 mg Q6HR PRN PO headache Last administered on 12:08; Start 05/17/16 at 06:30 Diatrizoate Meglum/ Diatrizoate Sod ( Gastroview Liq) 18 ml ONCE ONCE PO Last administered on 05/17/16at 11:49; Start 05/17/16 at 11:15; Stop 05/17/16 at 11:16; Status DC Iohexol (Omnipaque 350 Inj) 75 ml STK-MED ONCE IV Last administered on at 15:29; Start 05/17/16 at 15:29; Stop 05/17/16 at 15:30; Status DC Diazepam (Valium) 10 mg Q12HR PO Last administered on 05/24/16 08:12; Start 05/18/16 at 12:00; Stop 05/24/16 at 13:36; Status DC Polyethylene Glycol/ Electrolytes 4000 ml 4,000 ml ONCE ONCE PO Last administered on 05/19/16 16:34; Start 05/19/16 at 16:00; Stop 05/19/16 at 16:01; Status DC Lactated Ringer's (Lr 1000 ml Inj) 1,000 ml @ 30 mls/hr Q24H IV ; Start at 01:15 Acetaminophen (Tylenol) 650 mg ONCE ONCE PO Last administered on 05/20/16 05: 00; Start 05/20/16 at 05:00; Stop 05/20/16 at 05:03; Status DC Lidocaine/ Epinephrine 20 ml 20 ml STK-MED ONCE .ROUTE Last administered on 05/20 08:36; Start 05/20/16 at 08:36; Stop 05/20/16 at 08:49; Status DC Sodium Bicarbonate (Sodium Bicarbonate 8.4% Inj) 50 ml @ As Directed STK-MED ONCE .ROUTE Last administered on 05/20/16 08:36; Start 05/20/16 at 08:36; Stop 05/20/16 at 08:50; Status DC Fentanyl Citrate (fentaNYL INJ) 250 mcg STK-MED ONCE .ROUTE Last administered on 05/20/16 08:43; Start 05/20/16 at 08:43; Stop 05/20/16 at 08:51; Status DC Midazolam HCl (Versed Inj) 5 mg STK-MED ONCE .ROUTE Last administered on 08:43; Start 05/20/16 at 08:43; Stop 05/20/16 at 08:51; Status DC Oxycodone/ Acetaminophen (Percocet 5-325 Mg) 1 tab Q4H PRN PO pain 1-5 Last administered on 06/14/16 11:36; Start 05/20/16 at 10:00 Propofol (Diprivan 200 Mg/20 ml Inj) 310 mg STK-MED ONCE IV ; Start 05/20/16 at 12:55; Stop 05/20/16 at 13:30; Status DC Mesalamine (Canasa Supp) 1,000 mg HS RECTAL ; Start 05/20/16 at 21:00; Status Hold Pantoprazole Sodium (Protonix) 40 mg DAILY PO Last administered on 06/17/16 08 :07; Start 05/22/16 at 09:00; Stop 06/17/16 at 08:57; Status DC Oxycodone HCl (Roxicodone) 10 mg Q4H PRN PO pain 6-10 Last administered on 02:56; Start 05/21/16 at 16:00 Acetaminophen/ Butalbital/ Caffeine 1 tab 1 tab ONCE ONCE PO Last administered on 05/21/16 17:42; Start 05/21/16 at 16:00; Stop 05/21/16 at 16:04; Status DC Vancomycin HCl 1000 mg/Sodium Chloride 250 ml @ 250 mls/hr BUS TRANSPORTATION MANAGER IV Last administered on 05/23/16 13:00; Start 05/22/16 at 16:45; Stop 05/26/16 at 16:44; Status DC Cefazolin Sodium/ Dextrose (Ancef 2 Gm Premix) 50 ml @ 100 mls/hr BUS TRANSPORTATION MANAGER IV ; Start 05/22/16 at 18:00; Stop 05/26/16 at 17:59; Status DC Bisacodyl (Dulcolax Supp) 10 mg DAILY PRN [place] CONSTIPATION Last administered on 05/22/16 22:31; Start 05/22/16 at 22:15; Stop 05/24/16 at 10:23; Status DC Sodium Biphosphate/ Sodium Phosphate (Fleets Enema (Adult)) 133 ml ONCE PRN [place] constipation; Start 05/22/16 at 22:15; Stop 05/23/16 at 22:14; Status Cancel Midazolam HCl (Versed Inj) 5 mg STK-MED ONCE .ROUTE Last administered on 13:44; Start 05/23/16 at 13:44; Stop 05/23/16 at 13:45; Status DC Fentanyl Citrate (fentaNYL INJ) 250 mcg STK-MED ONCE .ROUTE Last administered on 05/23/16 13:44; Start 05/23/16 at 13:44; Stop 05/23/16 at 13:45; Status DC Heparin Sodium (Porcine) (*HEPARIN CENTRAL FLUSH PERIprocedural ONLY) 500 units STK-MED ONCE .ROUTE Last administered on 05/23/16 15:20; Start 05/23/16 at 14:30 ; Stop 05/23/16 at 14:31; Status DC Lidocaine/ Epinephrine (Xylocaine-Epi 1%-1:100,000 Inj) 20 ml STK-MED ONCE .ROUTE Last administered on 05/23/16 15:02; Start 05/23/16 at 14:30; Stop at 14:31; Status DC Midazolam HCl (Versed Inj) 5 mg STK-MED ONCE .ROUTE Last administered on 15:10; Start 05/23/16 at 15:10; Stop 05/23/16 at 15:11; Status DC Fentanyl Citrate 250 mcg 250 mcg STK-MED ONCE .ROUTE Last administered on 15:10; Start 05/23/16 at 15:10; Stop 05/23/16 at 15:11; Status DC Ceftriaxone Sodium/Sodium Chloride (Rocephin Inj/NS Inj) 100 ml @ 200 mls/hr Q24H IV Last administered on 05/30/16 17:19; Start 05/23/16 at 16:00; Stop at 09:52; Status DC IV Flush (NS Flush) DAILY IVF Last administered on 06/19/16 08:20; Start at 09:00 Heparin Sodium (Porcine) (Heparin Central Flush) DAILY IVF Last administered on 06/19/16 08:20; Start 05/24/16 at 09:00 IV Flush (NS Flush) UNSCH PRN IVF SEE PROTOCOL Last administered on 06/16/16 21:15; Start 05/23/16 at 15:30 Heparin Sodium (Porcine) (Heparin Central Flush) UNSCH PRN IVF SEE PROTOCOL Last administered on 06/02/16 04:01; Start 05/23/16 at 15:30 Docusate Sodium (Colace) 100 mg BID PO Last administered on 06/05/16 07:58; Start 05/24/16 at 11:00; Status Hold Lactulose (Lactulose Liq) 30 ml ONCE ONCE PO Last administered on 05/24/16 12: 15; Start 05/24/16 at 10:30; Stop 05/24/16 at 10:31; Status DC Lorazepam (Ativan) 1 mg Q4HR PRN PO anxiety Last administered on 05/24/16 22:38 ; Start 05/24/16 at 13:45; Stop 05/25/16 at 09:00; Status DC Lorazepam (Ativan) 1 mg ONCE ONCE PO Last administered on 05/24/16 14:27; Start 05/24/16 at 13:45; Stop 05/24/16 at 13:46; Status DC Lorazepam (Ativan) 2 mg Q6H PRN PO anxiety Last administered on 05/27/16 07:35 ; Start 05/25/16 at 08:59; Stop 05/28/16 at 08:03; Status DC Lactulose (Lactulose Liq) 30 ml QID PO Last administered on 05/25/16 20:06; Start 05/25/16 at 13:00; Stop 05/25/16 at 21:01; Status DC Polyethylene Glycol (Miralax) 17 gm DAILY PO Last administered on 06/04/16 08: 27; Start 05/25/16 at 14:30; Stop 06/15/16 at 10:54; Status DC Lactic Acid (Lac-Hydrin 12% Lotion) 1 applic BID PRN TOPICAL irritation; Start 05/25/16 at 14:30 Sumatriptan Succinate 25 mg 25 mg ONCE ONCE PO Last administered on 05/25/16 20:06; Start 05/25/16 at 19:45; Stop 05/25/16 at 19:47; Status DC Sodium Chloride (NS 1000 ml Inj) 1,000 ml @ 100 mls/hr Q10H IV Last administered on 06/15/16 10:35; Start 05/26/16 at 09:30; Stop 06/15/16 at 10:54 ; Status DC Allopurinol (Zyloprim) 300 mg DAILY PO Last administered on 06/15/16 08:04; Start 05/26/16 at 09:30; Stop 06/15/16 at 10:19; Status DC Morphine Sulfate 2 mg 2 mg ONCE ONCE IV PUSH Last administered on 05/26/16 10: 46; Start 05/26/16 at 10:30; Stop 05/26/16 at 10:31; Status DC Idarubicin HCl 22.6 mg/Sodium Chloride 122.6 ml @ 490.4 mls/ hr Q24H IV ; Start 05/26/16 at 16:00; Stop 05/26/16 at 17:07; Status DC Granisetron HCl 1 mg/Dexamethasone Sodium Phosphate 20 mg/Sodium Chloride 56 ml @ 336 mls/hr Q24H IV ; Start 05/26/16 at 15:30; Stop 05/26/16 at 17:09; Status DC Cytarabine 189 mg/ Sodium Chloride 500 ml @ 20.833 mls/ hr Q24H IV ; Start 05/26 at 17:00; Stop 05/26/16 at 17:08; Status DC Idarubicin HCl 22.6 mg/Sodium Chloride 122.6 ml @ 490.4 mls/ hr Q24H IV Last administered on 05/29/16 09:00; Start 05/27/16 at 09:00; Stop 05/29/16 at 09:14 ; Status DC Cytarabine 189 mg/ Sodium Chloride 500 ml @ 20.833 mls/ hr Q24H IV Last administered on 06/03/16 04:14; Start 05/27/16 at 10:00; Stop 06/03/16 at 09:59 ; Status DC Granisetron HCl/ Dexamethasone Sodium Phosphate/ Sodium Chloride (Kytril Inj/ Decadron Inj/NS Inj) 56 ml @ 336 mls/hr Q24H IV Last administered on 22:22; Start 05/27/16 at 08:30; Stop 06/02/16 at 08:39; Status DC Morphine Sulfate (Morphine Inj) 2 mg Q2HR PRN IV PUSH SEVERE BREAKTHROUGH PAIN Last administered on 06/16/16 13:27; Start 05/27/16 at 08:45 Lactulose (Lactulose Liq) 30 ml DAILY PO Last administered on 06/05/16 07:57; Start 05/27/16 at 09:00; Stop 06/15/16 at 10:54; Status DC Diazepam (Valium) 10 mg Q12HR PO Last administered on 06/19/16 08:19; Start 04/03 at 09:00 Temazepam 15 mg 15 mg HS PRN PO SLEEP Last administered on 06/01/16 22:23; Start 05/28/16 at 08:00 Sodium Chloride (NS 250 ml Inj) 250 ml @ 15 mls/hr ONCE ONCE IV Last administered on 05/29/16 14:07; Start 05/29/16 at 08:00; Stop 05/30/16 at 00:39 ; Status DC Acetaminophen (Tylenol) 650 mg Q4H PRN PO SEE LABEL COMMENTS; Start 05/29/16 at 08:00; Stop 05/29/16 at 12:01; Status DC Diphenhydramine HCl (Benadryl) 25 mg Q4H PRN PO SEE LABEL COMMENTS; Start 05/29 at 08:00; Stop 05/29/16 at 12:01; Status DC Diphenhydramine HCl (Benadryl) 25 mg Q4H PRN PO SEE LABEL COMMENTS Last administered on 05/29/16 12:54; Start 05/29/16 at 13:00; Stop 05/29/16 at 17:01 ; Status DC Acetaminophen (Tylenol) 650 mg Q4H PRN PO SEE LABEL COMMENTS Last administered on 05/29/16 12:54; Start 05/29/16 at 13:00; Stop 05/29/16 at 17:01; Status DC Diphenhydramine HCl (Benadryl) 25 mg Q4H PRN PO SEE LABEL COMMENTS Last administered on 05/29/16 21:21; Start 05/29/16 at 21:15; Stop 05/30/16 at 01:16 ; Status DC Multi-Ingredient Mouthwash/Gargle (Magic Mouthwash Adult Liq) 5 ml QID SWISH- SWAL Last administered on 06/11/16 08:45; Start 06/03/16 at 09:00; Stop at 12:03; Status DC Acyclovir (Zovirax) 400 mg Q8HR PO Last administered on 06/16/16 05:44; Start 06/03/16 at 14:00; Stop 06/16/16 at 13:56; Status DC Fluconazole (Diflucan) 200 mg DAILY PO Last administered on 06/10/16 09:22; Start 06/03/16 at 09:00; Stop 06/10/16 at 15:16; Status DC Levofloxacin 250 mg 250 mg DAILY@11 PO Last administered on 06/04/16 11:27; Start 06/03/16 at 11:00; Stop 06/05/16 at 07:46; Status DC Sodium Chloride (NS 250 ml Inj) 250 ml @ 15 mls/hr ONCE ONCE IV ; Start at 09:00; Stop 06/05/16 at 01:39; Status DC Acetaminophen (Tylenol) 650 mg Q4H PRN PO SEE LABEL COMMENTS Last administered on 06/04/16 11:27; Start 06/04/16 at 09:00; Stop 06/04/16 at 13:01; Status DC Diphenhydramine HCl 25 mg 25 mg Q4H PRN PO SEE LABEL COMMENTS Last administered on 06/04/16 11:27; Start 06/04/16 at 09:00; Stop 06/04/16 at 13:01 ; Status DC Cefepime HCl/ Sodium Chloride (Maxipime Inj/NS Inj) 100 ml @ 200 mls/hr Q12H IV Last administered on 06/05/16 10:41; Start 06/04/16 at 22:00; Stop at 13:37; Status DC Diatrizoate Meglum/ Diatrizoate Sod 18 ml 18 ml ONCE ONCE PO Last administered on 06/05/16 13:19; Start 06/05/16 at 13:00; Stop 06/05/16 at 13:01 ; Status DC Cefepime HCl/ Sodium Chloride (Maxipime Inj/NS Inj) 100 ml @ 200 mls/hr Q8H IV Last administered on 06/19/16 02:56; Start 06/05/16 at 18:00 Azithromycin 500 mg 500 mg DAILY PO Last administered on 06/10/16 09:21; Start 06/05/16 at 14:00; Stop 06/10/16 at 15:16; Status DC Vancomycin HCl 1000 mg/Sodium Chloride 250 ml @ 250 mls/hr ONCE ONCE IV Last administered on 06/05/16 14:44; Start 06/05/16 at 14:00; Stop 06/05/16 at 14:59 ; Status DC Pharmacy Profile Note (Vancomycin Consult Pharmacy) 0 ml @ 0 mls/hr UNSCH OTHER ; Start 06/05/16 at 13:45 Metronidazole 500 mg 500 mg Q8HR PO Last administered on 06/18/16 13:42; Start 06/05/16 at 14:00; Stop 06/18/16 at 14:14; Status DC Vancomycin HCl/ Sodium Chloride (Vancomycin Inj/ NS 250 ml Inj) 262.5 ml @ 250 mls/hr Q12H IV Last administered on 06/10/16 01:03; Start 06/06/16 at 00:00; Stop 06/10/16 at 15:30; Status DC Miscellaneous Information SPECIFIC LAB TO BE DRAWN:VANCOMYCIN TROUGH DATE TO... ONCE ONCE XX Last administered on 06/07/16 11:45; Start 06/07/16 at 11:45; Stop 06/07/16 at 11:46; Status DC Iohexol (Omnipaque 350 Inj) 100 ml STK-MED ONCE IV Last administered on 22:20; Start 06/05/16 at 22:20; Stop 06/05/16 at 22:21; Status DC Patient Own Medication PT OWN MED: HYDROMORPHONE 40 MG/... UNSCH OTHER ; Start 06/06/16 at 11:00 Sodium Chloride (NS 250 ml Inj) 250 ml @ 15 mls/hr ONCE ONCE IV Last administered on 06/06/16 16:45; Start 06/06/16 at 12:45; Stop 06/07/16 at 05:24 ; Status DC Acetaminophen (Tylenol) 650 mg Q4H PRN PO SEE LABEL COMMENTS Last administered on 06/06/16 16:19; Start 06/06/16 at 12:45; Stop 06/06/16 at 16:46; Status DC Diphenhydramine HCl (Benadryl) 25 mg Q4H PRN PO SEE LABEL COMMENTS Last administered on 06/06/16 16:18; Start 06/06/16 at 12:45; Stop 06/06/16 at 16:46 ; Status DC Miscellaneous Information SPECIFIC LAB TO BE VIKRAM... ONCE ONCE XX Last administered on 06/08/16 13:45; Start 06/08/16 at 11:45; Stop 06/08/16 at 11:46 ; Status DC Sodium Chloride (NS 250 ml Inj) 250 ml @ 15 mls/hr ONCE ONCE IV Last administered on 06/08/16 13:00; Start 06/08/16 at 13:00; Stop 06/09/16 at 05:39 ; Status DC Diphenhydramine HCl 25 mg 25 mg Q4H PRN PO SEE LABEL COMMENTS; Start 06/08/16 at 13:00; Stop 06/08/16 at 17:01; Status DC Sodium Chloride (NS 250 ml Inj) 250 ml @ 15 mls/hr ONCE ONCE IV Last administered on 06/09/16 11:51; Start 06/09/16 at 07:30; Stop 06/10/16 at 00:09 ; Status DC Acetaminophen (Tylenol) 650 mg Q4H PRN PO SEE LABEL COMMENTS; Start 06/09/16 at 07:30; Stop 06/09/16 at 11:31; Status DC Diphenhydramine HCl (Benadryl) 25 mg Q4H PRN PO SEE LABEL COMMENTS; Start 06/09 at 07:30; Stop 06/09/16 at 11:31; Status DC Loperamide HCl 2 mg 2 mg UNSCH PRN PO DIARRHEA Last administered on 06/15/16 08:03; Start 06/09/16 at 11:15; Stop 06/15/16 at 10:54; Status DC Magnesium Sulfate/ Dextrose 100 ml @ 100 mls/hr Q1H IV Last administered on 15:35; Start 06/10/16 at 09:15; Stop 06/10/16 at 11:14; Status DC Sodium Chloride (NS 250 ml Inj) 250 ml @ 15 mls/hr ONCE ONCE IV Last administered on 06/10/16 12:26; Start 06/10/16 at 09:30; Stop 06/11/16 at 02:09 ; Status DC Acetaminophen (Tylenol) 650 mg Q4H PRN PO SEE LABEL COMMENTS Last administered on 06/10/16 10:57; Start 06/10/16 at 09:30; Stop 06/10/16 at 13:31; Status DC Diphenhydramine HCl 25 mg 25 mg Q4H PRN PO SEE LABEL COMMENTS Last administered on 06/10/16 10:57; Start 06/10/16 at 09:30; Stop 06/10/16 at 13:31 ; Status DC Micafungin Sodium 100 mg/Sodium Chloride 100 ml @ 100 mls/hr Q24H IV Last administered on 06/18/16 16:20; Start 06/10/16 at 16:00 Vancomycin HCl/ Sodium Chloride (Vancomycin Inj/ NS 500 ml Inj) 515 ml @ 250 mls/hr Q12H IV Last administered on 06/12/16 05:32; Start 06/10/16 at 18:00; Stop 06/12/16 at 09:22; Status DC Miscellaneous Information SPECIFIC LAB TO BE DRAWN:VANCOMYCIN TROUGH DATE TO... ONCE ONCE XX Last administered on 06/12/16 05:33; Start 06/12/16 at 05:45; Stop 06/12/16 at 05:46; Status DC Vancomycin HCl/ Sodium Chloride (Vancomycin Inj/ NS 500 ml Inj) 517.5 ml @ 250 mls/hr Q12H IV Last administered on 06/14/16 05:14; Start 06/12/16 at 18:00; Stop 06/14/16 at 10:10; Status DC Miscellaneous Information SPECIFIC LAB TO BE DRAWN:VANCOMYCIN TROUGH DATE TO... ONCE ONCE XX Last administered on 06/14/16 05:15; Start 06/14/16 at 05:45; Stop 06/14/16 at 05:46; Status DC Potassium Chloride (KCl) 30 meq ONCE ONCE PO Last administered on 06/12/16 13 :21; Start 06/12/16 at 09:30; Stop 06/12/16 at 09:37; Status DC Potassium Phos/ Sodium Phos (K-Phos Neutral) 250 mg Q6HR PO Last administered on 06/19/16 04:55; Start 06/12/16 at 12:00 Lidocaine/ Epinephrine (Xylocaine-Epi 1%-1:100,000 Inj) 20 ml STK-MED ONCE .ROUTE Last administered on 06/13/16 07:27; Start 06/13/16 at 07:27; Stop at 07:28; Status DC Fentanyl Citrate (fentaNYL INJ) 250 mcg STK-MED ONCE .ROUTE Last administered on 06/13/16 07:51; Start 06/13/16 at 07:51; Stop 06/13/16 at 07:52; Status DC Midazolam HCl (Versed Inj) 5 mg STK-MED ONCE .ROUTE Last administered on 07:51; Start 06/13/16 at 07:51; Stop 06/13/16 at 07:52; Status DC Thrombin (Thrombin Top Soln) 5,000 units STK-MED ONCE .ROUTE Last administered on 06/13/16 08:41; Start 06/13/16 at 08:41; Stop 06/13/16 at 08:42; Status DC Hydromorphone HCl (Dilaudid Pf Inj) 2 mg STK-MED ONCE .ROUTE Last administered on 06/13/16 08:48; Start 06/13/16 at 08:48; Stop 06/13/16 at 08:49; Status DC Gelatin 1 foam 1 foam STK-MED ONCE .XX Last administered on 06/13/16 09:33; Start 06/13/16 at 09:33; Stop 06/13/16 at 09:34; Status DC Sodium Chloride (NS 250 ml Inj) 250 ml @ 15 mls/hr ONCE ONCE IV Last administered on 06/13/16 12:48; Start 06/13/16 at 10:00; Stop 06/14/16 at 02:39 ; Status DC Acetaminophen (Tylenol) 650 mg Q4H PRN PO SEE LABEL COMMENTS; Start 06/13/16 at 10:00; Stop 06/13/16 at 14:01; Status DC Diphenhydramine HCl 25 mg 25 mg Q4H PRN PO SEE LABEL COMMENTS Last administered on 06/13/16 11:34; Start 06/13/16 at 10:00; Stop 06/13/16 at 14:01 ; Status DC Sodium Chloride (NS 250 ml Inj) 250 ml @ 15 mls/hr ONCE ONCE IV Last administered on 06/13/16 12:48; Start 06/13/16 at 12:00; Stop 06/14/16 at 04:39 ; Status DC Acetaminophen (Tylenol) 650 mg Q4H PRN PO SEE LABEL COMMENTS; Start 06/13/16 at 12:00; Stop 06/13/16 at 16:01; Status DC Diphenhydramine HCl (Benadryl) 25 mg Q4H PRN PO SEE LABEL COMMENTS; Start 06/13 at 12:00; Stop 06/13/16 at 16:01; Status DC Diphenhydramine HCl (Benadryl) 25 mg ONCE ONCE PO Last administered on 20:42; Start 06/13/16 at 21:00; Stop 06/13/16 at 21:01; Status DC Potassium Chloride 30 meq 30 meq ONCE ONCE PO Last administered on 06/14/16 10:40; Start 06/14/16 at 09:15; Stop 06/14/16 at 09:16; Status DC Vancomycin HCl/ Sodium Chloride (Vancomycin Inj/ NS 500 ml Inj) 520 ml @ 250 mls/hr Q12H IV Last administered on 06/16/16 05:44; Start 06/14/16 at 18:00; Stop 06/16/16 at 11:21; Status DC Miscellaneous Information SPECIFIC LAB TO BE VIKRAM... ONCE ONCE XX Last administered on 06/16/16 05:44; Start 06/16/16 at 05:45; Stop 06/16/16 at 05:46 ; Status DC Diphenoxylate HCl/ Atropine 1 tab 1 tab Q6H PRN PO diarrhea Last administered on 06/15/16 13:17; Start 06/15/16 at 11:00; Stop 06/16/16 at 14:33; Status DC Sodium Chloride (NS 250 ml Inj) 250 ml @ 15 mls/hr ONCE ONCE IV Last administered on 06/16/16 12:27; Start 06/16/16 at 08:30; Stop 06/17/16 at 01:09 ; Status DC Acetaminophen (Tylenol) 650 mg Q4H PRN PO SEE LABEL COMMENTS; Start 06/16/16 at 08:30; Stop 06/16/16 at 12:31; Status DC Diphenhydramine HCl (Benadryl) 25 mg Q4H PRN PO SEE LABEL COMMENTS Last administered on 06/16/16 12:08; Start 06/16/16 at 08:30; Stop 06/16/16 at 12:31 ; Status DC Simethicone 80 mg 80 mg PCHS PRN CHEW GAS RETENTION Last administered on 12:34; Start 06/16/16 at 09:15; Stop 06/16/16 at 14:10; Status DC Vancomycin HCl/ Sodium Chloride (Vancomycin Inj/ NS 500 ml Inj) 517.5 ml @ 250 mls/hr Q12H IV Last administered on 06/19/16 04:55; Start 06/16/16 at 18:00 Miscellaneous Information SPECIFIC LAB TO BE VIKRAM... ONCE ONCE XX Last administered on 06/19/16 05:15; Start 06/19/16 at 05:45; Stop 06/19/16 at 05:46; Status DC Acyclovir (Zovirax) 400 mg DAILY PO Last administered on 06/19/16 08:18; Start 06/17/16 at 09:00 Diphenhydramine HCl (Benadryl) 25 mg NOW ONCE PO ; Start 06/16/16 at 14:15; Stop 06/16/16 at 14:16; Status DC Diphenhydramine HCl 25 mg 25 mg Q8H PRN PO ITCHING; Start 06/16/16 at 14:15 Sodium Chloride (NS 1000 ml Inj) 1,000 ml @ 84 mls/hr [id number] IV Last administered on 06/17/16 03:09; Start 06/16/16 at 14:30; Stop 06/17/16 at 08:52 ; Status DC Pantoprazole Sodium (Protonix) 20 mg DAILY PO Last administered on 06/19/16 08: 19; Start 06/17/16 at 09:00 Diphenoxylate HCl/ Atropine (Lomotil Tab) 1 tab NOW ONCE PO Last administered on 06/17/16 16:24; Start 06/17/16 at 15:45; Stop 06/17/16 at 15:46; Status DC A/P Assessment and Plan A/P (1) AML (acute myeloid leukemia) Plan: As shown on bone marrow biopsy. Medical oncology consulted and following. Status post port placement 05/23. Chemotherapy started 05/27. Hemoglobin/ PLT being monitored; transfuse with PRBC/platelet as needed per oncology. Continue with neutropenic precautions. Patient is status post bone marrow biopsy on 06/13, pathology with negative for AML. hematology/oncology following. (2) Neutropenic fever- now fever has resolved. Plan: UA positive for Klebsiella pneumonia. Patient's C. difficile negative. ID consulted. Antibiotics, antifungals and antivirals as per ID recommendations. (3) Pancytopenia Plan: Pancytopenia likely secondary to chemotherapy given for AML treatment. Continue to monitor CBC and follow up oncology recommendations. (4) UTI (urinary tract infection) Plan: Continue antibiotics as above and as per ID recommendations. Urine culture grew Klebsiella pneumonia. (5) GI bleed Plan: GI bleed now resolved. Patient had some episodes of rectal bleeding. s/p EGD and colonoscopy with gastritis and rectal ulcer. (6) Anxiety Plan: Continue Valium as needed. seems stable. (7) Diarrhea resolved. repeat C diff negative. (8) Dizziness Plan: CT head ordered by oncology 06/10 - No acute disease. Dizziness has now resolved. DVT prophylaxis: SCDs, no chemoprophylaxis given thrombocytopenia. Discharge Planning when cleared by oncology. Elma Feliz MD Jun 19, 2016 09:08
[2016-06-19 12:00] VITALS: BP 106/55; PULSE 83; RESP 16; TEMP 96.8; O2SAT 96
--- NOTE | 2016-06-19 13:58 | HHI.IDPN ---
Subjective Subjective Remarks Notes reviewed Temps normal Remains neutropenic BM shows no leukemia Overall feels better Antibiotics Vancomycin Cefepime Micafungin Lines [employer] Past Medical History Hypothyroidism GERD Chronic back pain Peripheral edema Hemorrhoids Past Surgical History Back and neck surgery Rotator cuff surgery Pain pump placement on the right lower abdomen Hemorrhoidectomy Allergies: Coded Allergies: No Known Allergies (Verified , 05/16/16) Objective . Vital Signs Date Time Temp Pulse Resp B/P Pulse Ox O2 Delivery O2 Flow Rate FiO2 06/19/16 13:42 16 06/19/16 12:00 96.8 83 16 106/55 96 06/19/16 08:00 96.4 65 16 142/68 96 06/19/16 04:00 98.8 81 18 134/63 95 06/18/16 22:29 98.3 75 18 147/72 97 06/18/16 18:00 87 18 123/60 95 06/18/16 06/18/16 06/19/16 15:00 23:00 07:00 Intake Total 720 ml 600 ml Balance 720 ml 600 ml Intake Oral 720 ml 600 ml # Voids 8 3 3 . Laboratory Tests Test 06/18/16 06/19/16 05:50 05:00 White Blood Count 0.6 TH/MM3 0.5 TH/MM3 Red Blood Count 2.55 MIL/MM3 2.50 MIL/MM3 Hemoglobin 7.9 GM/DL 7.8 GM/DL Hematocrit 22.6 % 22.6 % Mean Corpuscular Volume 88.9 FL 90.4 FL Mean Corpuscular Hemoglobin 31.2 PG 31.3 PG Mean Corpuscular Hemoglobin 35.0 % 34.7 % Concent Red Cell Distribution Width 13.1 % 13.0 % Platelet Count 22 TH/MM3 32 TH/MM3 Mean Platelet Volume 8.6 FL 9.2 FL Neutrophils (%) (Auto) 1.0 % % Lymphocytes (%) (Auto) 93.3 % % Monocytes (%) (Auto) 5.6 % % Eosinophils (%) (Auto) 0.1 % % Basophils (%) (Auto) 0.0 % % Neutrophils # (Auto) 0.0 TH/MM3 TH/MM3 Lymphocytes # (Auto) 0.5 TH/MM3 TH/MM3 Monocytes # (Auto) 0.0 TH/MM3 TH/MM3 Eosinophils # (Auto) 0.0 TH/MM3 TH/MM3 Basophils # (Auto) 0.0 TH/MM3 TH/MM3 CBC Comment AUTO DIFF AUTO DIFF Differential Total Cells 100 50 Counted Lymphocytes % 97 % 96 % Monocytes % 3 % 2 % Neutrophils # (Manual) 0.0 TH/MM3 0.0 TH/MM3 Differential Comment FINAL DIFF FINAL DIFF MANUAL MANUAL Atypical Lymphocytes % Platelet Estimate LOW LOW Platelet Morphology Comment NORMAL NORMAL Eosinophils % 2 % Red Cell Morphology Comment NORMAL Laboratory Tests Test 06/18/16 06/19/16 05:50 05:00 Sodium Level 143 MEQ/L 141 MEQ/L Potassium Level 3.7 MEQ/L 4.2 MEQ/L Chloride Level 109 MEQ/L 106 MEQ/L Carbon Dioxide Level 29.8 MEQ/L 31.1 MEQ/L Anion Gap 4 MEQ/L 4 MEQ/L Blood Urea Nitrogen 8 MG/DL 8 MG/DL Creatinine 0.50 MG/DL 0.61 MG/DL Estimat Glomerular Filtration 126 ML/MIN 100 ML/MIN Rate Random Glucose 115 MG/DL 98 MG/DL Calcium Level 8.1 MG/DL 8.7 MG/DL Imaging Abdomen/Pelvis CT 06/05/16 0000 Signed Impressions: Service Date/Time: May 22:13 - CONCLUSION: Minimal fluid in the pelvis, otherwise unremarkable. K. Marcelino Guardado MD Chest X-Ray 06/04/16 0000 Signed Impressions: Service Date/Time: Saturday, June 04, 2016 21:23 - CONCLUSION: No acute disease. Kilo Cotto MD Lumbar Puncture Fluoroscopy 05/23/16 0000 Signed Impressions: Service Date/Time: Monday, May 23, 2016 14:16 - CONCLUSION: Uncomplicated fluoroscopically guided lumbar puncture. Bubba Cherry MD Catheter Placement X-Ray 05/23/16 0000 Signed Impressions: Service Date/Time: Monday, May 23, 2016 14:16 - CONCLUSION: Uncomplicated Donaldson catheter placement as above. Bubba Cherry MD Bone Biopsy CT 05/20/16 [id number] Signed Impressions: Service Date/Time: Friday, May 20, 2016 09:13 - CONCLUSION: 1. Uncomplicated CT guided bone marrow aspirate. 2. Uncomplicated CT guided bone marrow biopsy. Yazan Saucedo MD Head CT 05/20/16 0000 Signed Impressions: Service Date/Time: Friday, May 20, 2016 15:16 - CONCLUSION: Normal examination for a patient of this age. No significant change has occurred. Emilio Thomas MD Chest CT 05/17/16 0000 Signed Impressions: Service Date/Time: Tuesday, May 17, 2016 15:14 - CONCLUSION: 1. 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 There are trace to very small bilateral pleural effusions and mild cardiomegaly noted. 2. No lobar consolidation. 3. Upper limits of normal to mildly enlarged mediastinal and bilateral hilar lymph nodes, nonspecific but presumably reactive. Bravo Mendez MD Physical Exam GENERAL: awake and alert, not in any respiratory distress. SKIN: Warm and dry. Has stable red papular rash in her back. Petechial rash in her L leg HEENT: Pale conjunctivae. No scleral icterus. Moist oral mucosa. No lesions noted NECK: Supple, nontender, no meningeal signs. CARDIOVASCULAR: Regular rate and rhythm without murmurs, gallops, or rubs. RESPIRATORY: Clear to auscultation. Donaldson catheter with no evidence of infection GASTROINTESTINAL: Abdomen soft, nondistended, bowel sounds are present, no tenderness. No rebound or guarding. She has her pain pump RLQ no evidence of infection MUSCULOSKELETAL: Extremities without clubbing, cyanosis, or edema. No calf tenderness. NEURO: Non focal PSYCH: Normal affect, calm and cooperative LINE: Donaldson cath with no evidence of infection Assessment & Plan Remarks IMPRESSION Neutropenic fever, patient with newly Dx AML, on induction chemotherapy - temps better AML, S/P induction chemo - in remission Diarrhea, C diff negative, better Headache, resolved - CT head negative RECOMMENDATION Continue cefepime Continue acyclovir for prophylaxis Continue vancomycin Continue Micafungin Once counts up, D/C Abx Seems clinically stable from ID standpoint and awaiting recovery fo Diane Pedro MD Jun 19, 2016 13:58
[2016-06-19 16:00] VITALS: BP 108/53; PULSE 89; RESP 16; TEMP 96.3; O2SAT 96
[2016-06-19] MEDS: MICAFUNGIN INJ 100 MG in SODIUM CHLORIDE 0.9% INJ 100 ML IV SCH (16:52)
[2016-06-19 20:00] VITALS: BP 128/61; PULSE 80; RESP 18; TEMP 99.4; O2SAT 97
[2016-06-20] VITALS: BP 129/58; PULSE 89; RESP 18; TEMP 96.9; O2SAT 99
[2016-06-20] MEDS: LACTATED RINGER'S 1000 ML IV SCH (01:15)
[2016-06-20] MEDS: CEFEPIME INJ 2,000 MG in SODIUM CHLORIDE 0.9% INJ 100 ML IV SCH ×3 (02:16→17:27)
[2016-06-20] MEDS: MORPHINE SULFATE 4 MG/ML INJ IV PUSH PRN ×4 (02:22→23:27)
[2016-06-20 04:00] VITALS: BP 123/96; PULSE 88; RESP 18; TEMP 97.5; O2SAT 96
[2016-06-20] MEDS: VANCOMYCIN INJ 1,250 MG in SODIUM CHLOR 0.9% 250 ML INJ 250 ML IV SCH ×2 (05:30→18:43)
[2016-06-20] MEDS: LEVOTHYROXINE SODIUM 25 MCG TAB PO SCH (05:31)
[2016-06-20] MEDS: POTASSIUM PHOSPHATE/SODIUM PHOSPHATE 250 MG TAB PO SCH ×4 (05:31→23:28)
[2016-06-20 08:00] VITALS: BP 127/56; PULSE 79; RESP 16; TEMP 98.2; O2SAT 93
[2016-06-20] MEDS: GABAPENTIN 300 MG CAP PO SCH ×3 (08:12→17:26)
[2016-06-20] MEDS: DIPHENOXYLATE/ATROPINE 2.5 MG/0.025 MG TAB PO PRN ×3 (08:12→21:03)
[2016-06-20] MEDS: POTASSIUM CHLORIDE 10 MEQ CAP PO SCH (08:12)
[2016-06-20] MEDS: FAMOTIDINE 20 MG TAB PO SCH ×2 (08:12→21:01)
[2016-06-20] MEDS: PANTOPRAZOLE SOD 20 MG DELAYED RELEASE TAB PO SCH (08:12)
[2016-06-20] MEDS: FUROSEMIDE 20 MG TAB PO SCH (08:12)
[2016-06-20] MEDS: ACYCLOVIR 200 MG CAP PO SCH (08:12)
[2016-06-20] MEDS: DIAZEPAM 10 MG TAB PO SCH ×2 (08:12→21:01)
[2016-06-20 08:15] LABS: EOSINOPHIL % 0.2 % (0.0-4.0); HEMATOCRIT 22.2 % (35.0-46.0); LYMPH % 92.7 % (9.0-44.0); LYMPHOCYTE # 0.6 TH/MM3 (1.0-4.8); MEAN CELL VOLUME 89.8 FL (80.0-100.0); MEAN CORPUSCULAR HEMOGLOBIN 30.9 PG (27.0-34.0); MEAN CORPUSCULAR HGB CONC 34.4 % (32.0-36.0); MONO % 5.9 % (0.0-8.0); NEUT % 1.2 % (16.0-70.0); PLATELET COUNT 47 TH/MM3 (150-450); RED BLOOD COUNT 2.48 MIL/MM3 (4.00-5.30); RED CELL DISTRIBUTION WIDTH 12.9 % (11.6-17.2); WHITE BLOOD COUNT 0.7 TH/MM3 (4.0-11.0)
[2016-06-20] MEDS: SODIUM CHLORIDE 0.9% FLUSH 5 ML FLUSH IVF SCH (08:16)
[2016-06-20 08:18] LABS: HEMO FLAGS AUTO DIFF
[2016-06-20] MEDS: SODIUM CHLORIDE 0.9% FLUSH 5 ML FLUSH IV SCH ×2 (08:24→21:05)
[2016-06-20 08:39] LABS: BICARBONATE 29.4 MEQ/L (21.0-32.0); POTASSIUM 3.8 MEQ/L (3.5-5.1)
[2016-06-20 09:31] LABS: EOSINOPHILS 1 % (0-4); POLYS (SEG NEUTROPHILS) 1 % (16-70); WBC DIFF SAMPLE 100
[2016-06-20 09:32] LABS: PLATELET ESTIMATE SMEAR LOW (NORMAL); PLATELET MORPHOLOGY NORMAL (NORMAL); SCAN/DIFF FINAL DIFF MANUAL
--- NOTE | 2016-06-20 10:56 | HHI.PR ---
Subjective Remarks in no acute distress. afebrile. has on and off diarrhea. no pain. no other complaints. Objective Vitals Vital Signs Date Time Temp Pulse Resp B/P Pulse Ox O2 Delivery O2 Flow Rate FiO2 06/20/16 08:00 98.2 79 16 127/56 93 06/20/16 04:00 97.5 88 18 123/96 96 06/20/16 00:00 96.9 89 18 129/58 99 06/19/16 20:00 99.4 80 18 128/61 97 06/19/16 19:30 16 06/19/16 16:00 96.3 89 16 108/53 96 06/19/16 12:00 96.8 83 16 106/55 96 I/O 06/19/16 06/19/16 06/19/16 06/20/16 06/20/16 06/20/16 07:00 15:00 23:00 07:00 15:00 23:00 Intake Total 960 ml 960 ml 850 ml Balance 960 ml 960 ml 850 ml Intake Oral 960 ml 960 ml 480 ml IV Total 370 ml # Voids 3 11 3 # Bowel Movements 7 2 Result Diagram: 06/20/16 0535 06/20/16 0535 Imaging Last Impressions Bone Biopsy CT 06/13/16 0000 Signed Impressions: Service Date/Time: Monday, June 13, 2016 08:35 - CONCLUSION: 1. Uncomplicated CT guided bone marrow aspirate. 2. Uncomplicated CT guided bone marrow biopsy. Juan Carlos Cherry MD FACR Head CT 06/10/16 0000 Signed Impressions: Service Date/Time: Friday, June 10, 2016 14:56 - CONCLUSION: Stable noncontrast head CT. No acute intracranial abnormality is identified. Bravo Jackman MD Abdomen/Pelvis CT 06/05/16 0000 Signed Impressions: Service Date/Time: May 22:13 - CONCLUSION: Minimal fluid in the pelvis, otherwise unremarkable. Cynthia Guardado MD Chest X-Ray 06/04/16 0000 Signed Impressions: Service Date/Time: Saturday, June 04, 2016 21:23 - CONCLUSION: No acute disease. Kilo Cotto MD Lumbar Puncture Fluoroscopy 05/23/16 0000 Signed Impressions: Service Date/Time: Monday, May 23, 2016 14:16 - CONCLUSION: Uncomplicated fluoroscopically guided lumbar puncture. Bubba Cherry MD Catheter Placement X-Ray 05/23/16 0000 Signed Impressions: Service Date/Time: Monday, May 23, 2016 14:16 - CONCLUSION: Uncomplicated Donaldson catheter placement as above. Bubba Cherry MD Chest CT 05/17/16 0000 Signed Impressions: Service Date/Time: Tuesday, May 17, 2016 15:14 - CONCLUSION: 1. 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 There are trace to very small bilateral pleural effusions and mild cardiomegaly noted. 2. No lobar consolidation. 3. Upper limits of normal to mildly enlarged mediastinal and bilateral hilar lymph nodes, nonspecific but presumably reactive. Bravo Mendez MD Objective Remarks GENERAL: This is a well-nourished, well-developed patient, in no apparent distress. CARDIOVASCULAR: Regular rate and regular rhythm without murmurs, gallops, or rubs. RESPIRATORY: Clear to auscultation. Breath sounds equal bilaterally. No wheezes , rales, or rhonchi. GASTROINTESTINAL: Abdomen soft, non-tender, nondistended. Normal, active bowel sounds MUSCULOSKELETAL: Extremities without clubbing, cyanosis, or edema. NEURO: Alert & Oriented x4 to person, place, time, situation. Moves all ext x4 Procedures EGD/ colonoscopy Bone marrow biopsy Medications and IVs Current Medications Sodium Chloride (NS 1000 ml Inj) 1,000 ml @ 1,000 mls/hr Q1H IV Last administered on 05/16/16at 15:22; Start 05/16/16 at 14:49; Stop 05/16/16 at 15 :48; Status DC IV Flush (NS Flush) 2 ml UNSCH PRN IVF FLUSH AFTER USING IV ACCESS Last administered on 05/16/16at 16:58; Start 05/16/16 at 15:00; Stop 05/16/16 at 17 :36; Status DC Pantoprazole Sodium (Protonix Inj) 40 mg ONCE ONCE IV PUSH Last administered on 05/16/16at 16:57; Start 05/16/16 at 16:45; Stop 05/16/16 at 16:46; Status DC Carisoprodol (Soma) 350 mg TID PRN PO PAIN Last administered on 06/15/16 08:03 ; Start 05/16/16 at 17:30 Furosemide (Lasix) 20 mg DAILY PO Last administered on 06/20/16 08:12; Start 05/17/16 at 09:00 Gabapentin (Neurontin) 300 mg TID PO Last administered on 06/20/16 08:12; Start 05/16/16 at 18:00 Levothyroxine Sodium (Synthroid) 25 mcg DAILY@06 PO Last administered on 05:31; Start 05/17/16 at 06:00 Potassium Chloride (KCl) 10 meq DAILY PO Last administered on 06/20/16 08:12; Start 05/17/16 at 09:00 Famotidine 20 mg 20 mg BID PO Last administered on 06/20/16 08:12; Start 05/16 at 21:00 Sodium Chloride (NS 1000 ml Inj) 1,000 ml @ 75 mls/hr [id number] IV Last administered on 05/16/16at 17:59; Start 05/16/16 at 17:31; Stop 05/17/16 at 06 :50; Status DC IV Flush (NS Flush) 2 ml UNSCH PRN IV FLUSH AFTER USING IV ACCESS; Start 05/16 at 17:45 IV Flush (NS Flush) 2 ml BID IV Last administered on 06/20/16 08:24; Start at 21:00 Ondansetron HCl (Zofran Inj) 4 mg Q6H PRN IV NAUSEA Last administered on 21:06; Start 05/16/16 at 17:45 Pantoprazole Sodium (Protonix Inj) 40 mg Q24H IV PUSH Last administered on 08:42; Start 05/17/16 at 09:00; Stop 05/21/16 at 14:52; Status DC Influenza Virus Vaccine (Flu (Quadrivalent) Vaccine Inj) 0.5 ml ONCE ONCE IM Last administered on 05/17/16at 11:51; Start 05/17/16 at 10:00; Stop 05/17/16 at 10:01; Status DC Acetaminophen (Tylenol) 650 mg Q6HR PRN PO headache Last administered on 12:08; Start 05/17/16 at 06:30 Diatrizoate Meglum/ Diatrizoate Sod (Md Lyla Villalba) 18 ml ONCE ONCE PO Last administered on 05/17/16at 11:49; Start 05/17/16 at 11:15; Stop 05/17/16 at 11:16; Status DC Iohexol (Omnipaque 350 Inj) 75 ml STK-MED ONCE IV Last administered on at 15:29; Start 05/17/16 at 15:29; Stop 05/17/16 at 15:30; Status DC Diazepam (Valium) 10 mg Q12HR PO Last administered on 05/24/16 08:12; Start 05/18/16 at 12:00; Stop 05/24/16 at 13:36; Status DC Polyethylene Glycol/ Electrolytes 4000 ml 4,000 ml ONCE ONCE PO Last administered on 05/19/16 16:34; Start 05/19/16 at 16:00; Stop 05/19/16 at 16:01; Status DC Lactated Ringer's (Lr 1000 ml Inj) 1,000 ml @ 30 mls/hr Q24H IV ; Start at 01:15 Acetaminophen (Tylenol) 650 mg ONCE ONCE PO Last administered on 05/20/16 05: 00; Start 05/20/16 at 05:00; Stop 05/20/16 at 05:03; Status DC Lidocaine/ Epinephrine 20 ml 20 ml STK-MED ONCE .ROUTE Last administered on 05/20 08:36; Start 05/20/16 at 08:36; Stop 05/20/16 at 08:49; Status DC Sodium Bicarbonate (Sodium Bicarbonate 8.4% Inj) 50 ml @ As Directed STK-MED ONCE .ROUTE Last administered on 05/20/16 08:36; Start 05/20/16 at 08:36; Stop 05/20/16 at 08:50; Status DC Fentanyl Citrate (fentaNYL INJ) 250 mcg STK-MED ONCE .ROUTE Last administered on 05/20/16 08:43; Start 05/20/16 at 08:43; Stop 05/20/16 at 08:51; Status DC Midazolam HCl (Versed Inj) 5 mg STK-MED ONCE .ROUTE Last administered on 08:43; Start 05/20/16 at 08:43; Stop 05/20/16 at 08:51; Status DC Oxycodone/ Acetaminophen (Percocet 5-325 Mg) 1 tab Q4H PRN PO pain 1-5 Last administered on 06/14/16 11:36; Start 05/20/16 at 10:00 Propofol (Diprivan 200 Mg/20 ml Inj) 310 mg STK-MED ONCE IV ; Start 05/20/16 at 12:55; Stop 05/20/16 at 13:30; Status DC Mesalamine (Canasa Supp) 1,000 mg HS RECTAL ; Start 05/20/16 at 21:00; Status Hold Pantoprazole Sodium (Protonix) 40 mg DAILY PO Last administered on 06/17/16 08 :07; Start 05/22/16 at 09:00; Stop 06/17/16 at 08:57; Status DC Oxycodone HCl (Roxicodone) 10 mg Q4H PRN PO pain 6-10 Last administered on 08:12; Start 05/21/16 at 16:00 Acetaminophen/ Butalbital/ Caffeine 1 tab 1 tab ONCE ONCE PO Last administered on 05/21/16 17:42; Start 05/21/16 at 16:00; Stop 05/21/16 at 16:04; Status DC Vancomycin HCl 1000 mg/Sodium Chloride 250 ml @ 250 mls/hr CHEF UNDER IV Last administered on 05/23/16 13:00; Start 05/22/16 at 16:45; Stop 05/26/16 at 16:44; Status DC Cefazolin Sodium/ Dextrose (Ancef 2 Gm Premix) 50 ml @ 100 mls/hr CHEF UNDER IV ; Start 05/22/16 at 18:00; Stop 05/26/16 at 17:59; Status DC Bisacodyl (Dulcolax Supp) 10 mg DAILY PRN PA CONSTIPATION Last administered on 05/22/16 22:31; Start 05/22/16 at 22:15; Stop 05/24/16 at 10:23; Status DC Sodium Biphosphate/ Sodium Phosphate (Fleets Enema (Adult)) 133 ml ONCE PRN PA constipation; Start 05/22/16 at 22:15; Stop 05/23/16 at 22:14; Status Cancel Midazolam HCl (Versed Inj) 5 mg STK-MED ONCE .ROUTE Last administered on 13:44; Start 05/23/16 at 13:44; Stop 05/23/16 at 13:45; Status DC Fentanyl Citrate (fentaNYL INJ) 250 mcg STK-MED ONCE .ROUTE Last administered on 05/23/16 13:44; Start 05/23/16 at 13:44; Stop 05/23/16 at 13:45; Status DC Heparin Sodium (Porcine) (*HEPARIN CENTRAL FLUSH PERIprocedural ONLY) 500 units STK-MED ONCE .ROUTE Last administered on 05/23/16 15:20; Start 05/23/16 at 14:30 ; Stop 05/23/16 at 14:31; Status DC Lidocaine/ Epinephrine (Xylocaine-Epi 1%-1:100,000 Inj) 20 ml STK-MED ONCE .ROUTE Last administered on 05/23/16 15:02; Start 05/23/16 at 14:30; Stop at 14:31; Status DC Midazolam HCl (Versed Inj) 5 mg STK-MED ONCE .ROUTE Last administered on 15:10; Start 05/23/16 at 15:10; Stop 05/23/16 at 15:11; Status DC Fentanyl Citrate 250 mcg 250 mcg STK-MED ONCE .ROUTE Last administered on 15:10; Start 05/23/16 at 15:10; Stop 05/23/16 at 15:11; Status DC Ceftriaxone Sodium/Sodium Chloride (Rocephin Inj/NS Inj) 100 ml @ 200 mls/hr Q24H IV Last administered on 05/30/16 17:19; Start 05/23/16 at 16:00; Stop at 09:52; Status DC IV Flush (NS Flush) DAILY IVF Last administered on 06/20/16 08:16; Start at 09:00 Heparin Sodium (Porcine) (Heparin Central Flush) DAILY IVF Last administered on 06/20/16 08:16; Start 05/24/16 at 09:00 IV Flush (NS Flush) UNSCH PRN IVF SEE PROTOCOL Last administered on 06/16/16 21:15; Start 05/23/16 at 15:30 Heparin Sodium (Porcine) (Heparin Central Flush) UNSCH PRN IVF SEE PROTOCOL Last administered on 06/02/16 04:01; Start 05/23/16 at 15:30 Docusate Sodium (Colace) 100 mg BID PO Last administered on 06/05/16 07:58; Start 05/24/16 at 11:00; Status Hold Lactulose (Lactulose Liq) 30 ml ONCE ONCE PO Last administered on 05/24/16 12: 15; Start 05/24/16 at 10:30; Stop 05/24/16 at 10:31; Status DC Lorazepam (Ativan) 1 mg Q4HR PRN PO anxiety Last administered on 05/24/16 22:38 ; Start 05/24/16 at 13:45; Stop 05/25/16 at 09:00; Status DC Lorazepam (Ativan) 1 mg ONCE ONCE PO Last administered on 05/24/16 14:27; Start 05/24/16 at 13:45; Stop 05/24/16 at 13:46; Status DC Lorazepam (Ativan) 2 mg Q6H PRN PO anxiety Last administered on 05/27/16 07:35 ; Start 05/25/16 at 08:59; Stop 05/28/16 at 08:03; Status DC Lactulose (Lactulose Liq) 30 ml QID PO Last administered on 05/25/16 20:06; Start 05/25/16 at 13:00; Stop 05/25/16 at 21:01; Status DC Polyethylene Glycol (Miralax) 17 gm DAILY PO Last administered on 06/04/16 08: 27; Start 05/25/16 at 14:30; Stop 06/15/16 at 10:54; Status DC Lactic Acid (Lac-Hydrin 12% Lotion) 1 applic BID PRN TOPICAL irritation; Start 05/25/16 at 14:30 Sumatriptan Succinate 25 mg 25 mg ONCE ONCE PO Last administered on 05/25/16 20:06; Start 05/25/16 at 19:45; Stop 05/25/16 at 19:47; Status DC Sodium Chloride (NS 1000 ml Inj) 1,000 ml @ 100 mls/hr Q10H IV Last administered on 06/15/16 10:35; Start 05/26/16 at 09:30; Stop 06/15/16 at 10:54 ; Status DC Allopurinol (Zyloprim) 300 mg DAILY PO Last administered on 06/15/16 08:04; Start 05/26/16 at 09:30; Stop 06/15/16 at 10:19; Status DC Morphine Sulfate 2 mg 2 mg ONCE ONCE IV PUSH Last administered on 05/26/16 10: 46; Start 05/26/16 at 10:30; Stop 05/26/16 at 10:31; Status DC Idarubicin HCl 22.6 mg/Sodium Chloride 122.6 ml @ 490.4 mls/ hr Q24H IV ; Start 05/26/16 at 16:00; Stop 05/26/16 at 17:07; Status DC Granisetron HCl 1 mg/Dexamethasone Sodium Phosphate 20 mg/Sodium Chloride 56 ml @ 336 mls/hr Q24H IV ; Start 05/26/16 at 15:30; Stop 05/26/16 at 17:09; Status DC Cytarabine 189 mg/ Sodium Chloride 500 ml @ 20.833 mls/ hr Q24H IV ; Start 05/26 at 17:00; Stop 05/26/16 at 17:08; Status DC Idarubicin HCl 22.6 mg/Sodium Chloride 122.6 ml @ 490.4 mls/ hr Q24H IV Last administered on 05/29/16 09:00; Start 05/27/16 at 09:00; Stop 05/29/16 at 09:14 ; Status DC Cytarabine 189 mg/ Sodium Chloride 500 ml @ 20.833 mls/ hr Q24H IV Last administered on 06/03/16 04:14; Start 05/27/16 at 10:00; Stop 06/03/16 at 09:59 ; Status DC Granisetron HCl/ Dexamethasone Sodium Phosphate/ Sodium Chloride (Kytril Inj/ Decadron Inj/NS Inj) 56 ml @ 336 mls/hr Q24H IV Last administered on 22:22; Start 05/27/16 at 08:30; Stop 06/02/16 at 08:39; Status DC Morphine Sulfate (Morphine Inj) 2 mg Q2HR PRN IV PUSH SEVERE BREAKTHROUGH PAIN Last administered on 06/20/16 09:57; Start 05/27/16 at 08:45 Lactulose (Lactulose Liq) 30 ml DAILY PO Last administered on 06/05/16 07:57; Start 05/27/16 at 09:00; Stop 06/15/16 at 10:54; Status DC Diazepam (Valium) 10 mg Q12HR PO Last administered on 06/20/16 08:12; Start 04/03 at 09:00 Temazepam 15 mg 15 mg HS PRN PO SLEEP Last administered on 06/01/16 22:23; Start 05/28/16 at 08:00 Sodium Chloride (NS 250 ml Inj) 250 ml @ 15 mls/hr ONCE ONCE IV Last administered on 05/29/16 14:07; Start 05/29/16 at 08:00; Stop 05/30/16 at 00:39 ; Status DC Acetaminophen (Tylenol) 650 mg Q4H PRN PO SEE LABEL COMMENTS; Start 05/29/16 at 08:00; Stop 05/29/16 at 12:01; Status DC Diphenhydramine HCl (Benadryl) 25 mg Q4H PRN PO SEE LABEL COMMENTS; Start 05/29 at 08:00; Stop 05/29/16 at 12:01; Status DC Diphenhydramine HCl (Benadryl) 25 mg Q4H PRN PO SEE LABEL COMMENTS Last administered on 05/29/16 12:54; Start 05/29/16 at 13:00; Stop 05/29/16 at 17:01 ; Status DC Acetaminophen (Tylenol) 650 mg Q4H PRN PO SEE LABEL COMMENTS Last administered on 05/29/16 12:54; Start 05/29/16 at 13:00; Stop 05/29/16 at 17:01; Status DC Diphenhydramine HCl (Benadryl) 25 mg Q4H PRN PO SEE LABEL COMMENTS Last administered on 05/29/16 21:21; Start 05/29/16 at 21:15; Stop 05/30/16 at 01:16 ; Status DC Multi-Ingredient Mouthwash/Gargle (Magic Mouthwash Adult Liq) 5 ml QID SWISH- SWAL Last administered on 06/11/16 08:45; Start 06/03/16 at 09:00; Stop at 12:03; Status DC Acyclovir (Zovirax) 400 mg Q8HR PO Last administered on 06/16/16 05:44; Start 06/03/16 at 14:00; Stop 06/16/16 at 13:56; Status DC Fluconazole (Diflucan) 200 mg DAILY PO Last administered on 06/10/16 09:22; Start 06/03/16 at 09:00; Stop 06/10/16 at 15:16; Status DC Levofloxacin 250 mg 250 mg DAILY@11 PO Last administered on 06/04/16 11:27; Start 06/03/16 at 11:00; Stop 06/05/16 at 07:46; Status DC Sodium Chloride (NS 250 ml Inj) 250 ml @ 15 mls/hr ONCE ONCE IV ; Start at 09:00; Stop 06/05/16 at 01:39; Status DC Acetaminophen (Tylenol) 650 mg Q4H PRN PO SEE LABEL COMMENTS Last administered on 06/04/16 11:27; Start 06/04/16 at 09:00; Stop 06/04/16 at 13:01; Status DC Diphenhydramine HCl 25 mg 25 mg Q4H PRN PO SEE LABEL COMMENTS Last administered on 06/04/16 11:27; Start 06/04/16 at 09:00; Stop 06/04/16 at 13:01 ; Status DC Cefepime HCl/ Sodium Chloride (Maxipime Inj/NS Inj) 100 ml @ 200 mls/hr Q12H IV Last administered on 06/05/16 10:41; Start 06/04/16 at 22:00; Stop at 13:37; Status DC Diatrizoate Meglum/ Diatrizoate Sod 18 ml 18 ml ONCE ONCE PO Last administered on 06/05/16 13:19; Start 06/05/16 at 13:00; Stop 06/05/16 at 13:01 ; Status DC Cefepime HCl/ Sodium Chloride (Maxipime Inj/NS Inj) 100 ml @ 200 mls/hr Q8H IV Last administered on 06/20/16 08:16; Start 06/05/16 at 18:00 Azithromycin 500 mg 500 mg DAILY PO Last administered on 06/10/16 09:21; Start 06/05/16 at 14:00; Stop 06/10/16 at 15:16; Status DC Vancomycin HCl 1000 mg/Sodium Chloride 250 ml @ 250 mls/hr ONCE ONCE IV Last administered on 06/05/16 14:44; Start 06/05/16 at 14:00; Stop 06/05/16 at 14:59 ; Status DC Pharmacy Profile Note (Vancomycin Consult Pharmacy) 0 ml @ 0 mls/hr UNSCH OTHER ; Start 06/05/16 at 13:45 Metronidazole 500 mg 500 mg Q8HR PO Last administered on 06/18/16 13:42; Start 06/05/16 at 14:00; Stop 06/18/16 at 14:14; Status DC Vancomycin HCl/ Sodium Chloride (Vancomycin Inj/ NS 250 ml Inj) 262.5 ml @ 250 mls/hr Q12H IV Last administered on 06/10/16 01:03; Start 06/06/16 at 00:00; Stop 06/10/16 at 15:30; Status DC Miscellaneous Information SPECIFIC LAB TO BE DRAWN:VANCOMYCIN TROUGH DATE TO... ONCE ONCE XX Last administered on 06/07/16 11:45; Start 06/07/16 at 11:45; Stop 06/07/16 at 11:46; Status DC Iohexol (Omnipaque 350 Inj) 100 ml STK-MED ONCE IV Last administered on 22:20; Start 06/05/16 at 22:20; Stop 06/05/16 at 22:21; Status DC Patient Own Medication PT OWN MED: HYDROMORPHONE 40 MG/... UNSCH OTHER ; Start 06/06/16 at 11:00 Sodium Chloride (NS 250 ml Inj) 250 ml @ 15 mls/hr ONCE ONCE IV Last administered on 06/06/16 16:45; Start 06/06/16 at 12:45; Stop 06/07/16 at 05:24 ; Status DC Acetaminophen (Tylenol) 650 mg Q4H PRN PO SEE LABEL COMMENTS Last administered on 06/06/16 16:19; Start 06/06/16 at 12:45; Stop 06/06/16 at 16:46; Status DC Diphenhydramine HCl (Benadryl) 25 mg Q4H PRN PO SEE LABEL COMMENTS Last administered on 06/06/16 16:18; Start 06/06/16 at 12:45; Stop 06/06/16 at 16:46 ; Status DC Miscellaneous Information SPECIFIC LAB TO BE VIKRAM... ONCE ONCE XX Last administered on 06/08/16 13:45; Start 06/08/16 at 11:45; Stop 06/08/16 at 11:46 ; Status DC Sodium Chloride (NS 250 ml Inj) 250 ml @ 15 mls/hr ONCE ONCE IV Last administered on 06/08/16 13:00; Start 06/08/16 at 13:00; Stop 06/09/16 at 05:39 ; Status DC Diphenhydramine HCl 25 mg 25 mg Q4H PRN PO SEE LABEL COMMENTS; Start 06/08/16 at 13:00; Stop 06/08/16 at 17:01; Status DC Sodium Chloride (NS 250 ml Inj) 250 ml @ 15 mls/hr ONCE ONCE IV Last administered on 06/09/16 11:51; Start 06/09/16 at 07:30; Stop 06/10/16 at 00:09 ; Status DC Acetaminophen (Tylenol) 650 mg Q4H PRN PO SEE LABEL COMMENTS; Start 06/09/16 at 07:30; Stop 06/09/16 at 11:31; Status DC Diphenhydramine HCl (Benadryl) 25 mg Q4H PRN PO SEE LABEL COMMENTS; Start 06/09 at 07:30; Stop 06/09/16 at 11:31; Status DC Loperamide HCl 2 mg 2 mg UNSCH PRN PO DIARRHEA Last administered on 06/15/16 08:03; Start 06/09/16 at 11:15; Stop 06/15/16 at 10:54; Status DC Magnesium Sulfate/ Dextrose 100 ml @ 100 mls/hr Q1H IV Last administered on 15:35; Start 06/10/16 at 09:15; Stop 06/10/16 at 11:14; Status DC Sodium Chloride (NS 250 ml Inj) 250 ml @ 15 mls/hr ONCE ONCE IV Last administered on 06/10/16 12:26; Start 06/10/16 at 09:30; Stop 06/11/16 at 02:09 ; Status DC Acetaminophen (Tylenol) 650 mg Q4H PRN PO SEE LABEL COMMENTS Last administered on 06/10/16 10:57; Start 06/10/16 at 09:30; Stop 06/10/16 at 13:31; Status DC Diphenhydramine HCl 25 mg 25 mg Q4H PRN PO SEE LABEL COMMENTS Last administered on 06/10/16 10:57; Start 06/10/16 at 09:30; Stop 06/10/16 at 13:31 ; Status DC Micafungin Sodium 100 mg/Sodium Chloride 100 ml @ 100 mls/hr Q24H IV Last administered on 06/19/16 16:52; Start 06/10/16 at 16:00 Vancomycin HCl/ Sodium Chloride (Vancomycin Inj/ NS 500 ml Inj) 515 ml @ 250 mls/hr Q12H IV Last administered on 06/12/16 05:32; Start 06/10/16 at 18:00; Stop 06/12/16 at 09:22; Status DC Miscellaneous Information SPECIFIC LAB TO BE DRAWN:VANCOMYCIN TROUGH DATE TO... ONCE ONCE XX Last administered on 06/12/16 05:33; Start 06/12/16 at 05:45; Stop 06/12/16 at 05:46; Status DC Vancomycin HCl/ Sodium Chloride (Vancomycin Inj/ NS 500 ml Inj) 517.5 ml @ 250 mls/hr Q12H IV Last administered on 06/14/16 05:14; Start 06/12/16 at 18:00; Stop 06/14/16 at 10:10; Status DC Miscellaneous Information SPECIFIC LAB TO BE DRAWN:VANCOMYCIN TROUGH DATE TO... ONCE ONCE XX Last administered on 06/14/16 05:15; Start 06/14/16 at 05:45; Stop 06/14/16 at 05:46; Status DC Potassium Chloride (KCl) 30 meq ONCE ONCE PO Last administered on 06/12/16 13 :21; Start 06/12/16 at 09:30; Stop 06/12/16 at 09:37; Status DC Potassium Phos/ Sodium Phos (K-Phos Neutral) 250 mg Q6HR PO Last administered on 06/20/16 05:31; Start 06/12/16 at 12:00 Lidocaine/ Epinephrine (Xylocaine-Epi 1%-1:100,000 Inj) 20 ml STK-MED ONCE .ROUTE Last administered on 06/13/16 07:27; Start 06/13/16 at 07:27; Stop at 07:28; Status DC Fentanyl Citrate (fentaNYL INJ) 250 mcg STK-MED ONCE .ROUTE Last administered on 06/13/16 07:51; Start 06/13/16 at 07:51; Stop 06/13/16 at 07:52; Status DC Midazolam HCl (Versed Inj) 5 mg STK-MED ONCE .ROUTE Last administered on 07:51; Start 06/13/16 at 07:51; Stop 06/13/16 at 07:52; Status DC Thrombin (Thrombin Top Soln) 5,000 units STK-MED ONCE .ROUTE Last administered on 06/13/16 08:41; Start 06/13/16 at 08:41; Stop 06/13/16 at 08:42; Status DC Hydromorphone HCl (Dilaudid Pf Inj) 2 mg STK-MED ONCE .ROUTE Last administered on 06/13/16 08:48; Start 06/13/16 at 08:48; Stop 06/13/16 at 08:49; Status DC Gelatin 1 foam 1 foam STK-MED ONCE .XX Last administered on 06/13/16 09:33; Start 06/13/16 at 09:33; Stop 06/13/16 at 09:34; Status DC Sodium Chloride (NS 250 ml Inj) 250 ml @ 15 mls/hr ONCE ONCE IV Last administered on 06/13/16 12:48; Start 06/13/16 at 10:00; Stop 06/14/16 at 02:39 ; Status DC Acetaminophen (Tylenol) 650 mg Q4H PRN PO SEE LABEL COMMENTS; Start 06/13/16 at 10:00; Stop 06/13/16 at 14:01; Status DC Diphenhydramine HCl 25 mg 25 mg Q4H PRN PO SEE LABEL COMMENTS Last administered on 06/13/16 11:34; Start 06/13/16 at 10:00; Stop 06/13/16 at 14:01 ; Status DC Sodium Chloride (NS 250 ml Inj) 250 ml @ 15 mls/hr ONCE ONCE IV Last administered on 06/13/16 12:48; Start 06/13/16 at 12:00; Stop 06/14/16 at 04:39 ; Status DC Acetaminophen (Tylenol) 650 mg Q4H PRN PO SEE LABEL COMMENTS; Start 06/13/16 at 12:00; Stop 06/13/16 at 16:01; Status DC Diphenhydramine HCl (Benadryl) 25 mg Q4H PRN PO SEE LABEL COMMENTS; Start 06/13 at 12:00; Stop 06/13/16 at 16:01; Status DC Diphenhydramine HCl (Benadryl) 25 mg ONCE ONCE PO Last administered on 20:42; Start 06/13/16 at 21:00; Stop 06/13/16 at 21:01; Status DC Potassium Chloride 30 meq 30 meq ONCE ONCE PO Last administered on 06/14/16 10:40; Start 06/14/16 at 09:15; Stop 06/14/16 at 09:16; Status DC Vancomycin HCl/ Sodium Chloride (Vancomycin Inj/ NS 500 ml Inj) 520 ml @ 250 mls/hr Q12H IV Last administered on 06/16/16 05:44; Start 06/14/16 at 18:00; Stop 06/16/16 at 11:21; Status DC Miscellaneous Information SPECIFIC LAB TO BE VIKRAM... ONCE ONCE XX Last administered on 06/16/16 05:44; Start 06/16/16 at 05:45; Stop 06/16/16 at 05:46 ; Status DC Diphenoxylate HCl/ Atropine 1 tab 1 tab Q6H PRN PO diarrhea Last administered on 06/15/16 13:17; Start 06/15/16 at 11:00; Stop 06/16/16 at 14:33; Status DC Sodium Chloride (NS 250 ml Inj) 250 ml @ 15 mls/hr ONCE ONCE IV Last administered on 06/16/16 12:27; Start 06/16/16 at 08:30; Stop 06/17/16 at 01:09 ; Status DC Acetaminophen (Tylenol) 650 mg Q4H PRN PO SEE LABEL COMMENTS; Start 06/16/16 at 08:30; Stop 06/16/16 at 12:31; Status DC Diphenhydramine HCl (Benadryl) 25 mg Q4H PRN PO SEE LABEL COMMENTS Last administered on 06/16/16 12:08; Start 06/16/16 at 08:30; Stop 06/16/16 at 12:31 ; Status DC Simethicone 80 mg 80 mg PCHS PRN CHEW GAS RETENTION Last administered on 12:34; Start 06/16/16 at 09:15; Stop 06/16/16 at 14:10; Status DC Vancomycin HCl/ Sodium Chloride (Vancomycin Inj/ NS 500 ml Inj) 517.5 ml @ 250 mls/hr Q12H IV Last administered on 06/19/16 04:55; Start 06/16/16 at 18:00; Stop 06/19/16 at 10:13; Status DC Miscellaneous Information SPECIFIC LAB TO BE VIKRAM... ONCE ONCE XX Last administered on 06/19/16 05:15; Start 06/19/16 at 05:45; Stop 06/19/16 at 05:46; Status DC Acyclovir (Zovirax) 400 mg DAILY PO Last administered on 06/20/16 08:12; Start 06/17/16 at 09:00 Diphenhydramine HCl (Benadryl) 25 mg NOW ONCE PO ; Start 06/16/16 at 14:15; Stop 06/16/16 at 14:16; Status DC Diphenhydramine HCl 25 mg 25 mg Q8H PRN PO ITCHING; Start 06/16/16 at 14:15 Sodium Chloride (NS 1000 ml Inj) 1,000 ml @ 84 mls/hr [id number] IV Last administered on 06/17/16 03:09; Start 06/16/16 at 14:30; Stop 06/17/16 at 08:52 ; Status DC Pantoprazole Sodium (Protonix) 20 mg DAILY PO Last administered on 06/20/16 08: 12; Start 06/17/16 at 09:00 Diphenoxylate HCl/ Atropine 1 tab 1 tab NOW ONCE PO Last administered on 16:24; Start 06/17/16 at 15:45; Stop 06/17/16 at 15:46; Status DC Vancomycin HCl/ Sodium Chloride (Vancomycin Inj/ NS 250 ml Inj) 262.5 ml @ 250 mls/hr Q12H IV Last administered on 2/3/17at 05:30; Start 06/20/16 at 06:00 Miscellaneous Information SPECIFIC LAB TO BE DRAWN:VANCOMYCIN TROUGH DATE TO... ONCE ONCE XX ; Start 06/22/16 at 05:45; Stop 06/22/16 at 05:46 Diphenoxylate HCl/ Atropine (Lomotil Tab) 1 tab Q6H PRN PO LOOSE STOOL Last administered on 06/20/16 08:12; Start 06/20/16 at 07:45 A/P Assessment and Plan A/P (1) AML (acute myeloid leukemia) Plan: As shown on bone marrow biopsy. Medical oncology consulted and following. Status post port placement 05/23. Chemotherapy started 05/27. Hemoglobin/ PLT being monitored; transfuse with PRBC/platelet as needed per oncology. Continue with neutropenic precautions. Patient is status post bone marrow biopsy on 06/13, pathology with negative for AML. hematology/oncology following. (2) Neutropenic fever- now fever has resolved. Plan: UA positive for Klebsiella pneumonia. Patient's C. difficile negative. ID consulted. Antibiotics, antifungals and antivirals as per ID recommendations. (3) Pancytopenia Plan: Pancytopenia likely secondary to chemotherapy given for AML treatment. Continue to monitor CBC and follow up oncology recommendations. (4) UTI (urinary tract infection) Plan: Continue antibiotics as above and as per ID recommendations. Urine culture grew Klebsiella pneumonia. (5) GI bleed Plan: GI bleed now resolved. Patient had some episodes of rectal bleeding. s/p EGD and colonoscopy with gastritis and rectal ulcer. (6) Anxiety Plan: Continue Valium as needed. seems stable. (7) Diarrhea repeat C diff negative. (8) Dizziness Plan: CT head ordered by oncology 06/10 - No acute disease. Dizziness has now resolved. DVT prophylaxis: SCDs, no chemoprophylaxis given thrombocytopenia. Discharge Planning when cleared by oncology. Elma Feliz MD Jun 20, 2016 10:56
[2016-06-20 12:00] VITALS: BP 98/55; PULSE 91; RESP 16; TEMP 96.2; O2SAT 96
--- NOTE | 2016-06-20 12:21 | PD.ONC.PN ---
Subjective Subjective Remarks Afebrile overnight. Patient had multiple episodes of diarrhea overnight. She denies abdominal pain. She is having some bony pains in her legs and arms and is eager to sleep in her own bed again. Objective Data Date Time Temp Pulse Resp B/P Pulse Ox O2 Delivery O2 Flow Rate FiO2 06/20/16 08:00 98.2 79 16 127/56 93 06/20/16 04:00 97.5 88 18 123/96 96 06/20/16 00:00 96.9 89 18 129/58 99 06/19/16 20:00 99.4 80 18 128/61 97 06/19/16 19:30 16 06/19/16 16:00 96.3 89 16 108/53 96 Result Diagram: 06/20/16 0535 06/20/16 0535 Laboratory Results Laboratory Tests Test 06/20/16 05:35 White Blood Count 0.7 TH/MM3 Red Blood Count 2.48 MIL/MM3 Hemoglobin 7.7 GM/DL Hematocrit 22.2 % Mean Corpuscular Volume 89.8 FL Mean Corpuscular Hemoglobin 30.9 PG Mean Corpuscular Hemoglobin 34.4 % Concent Red Cell Distribution Width 12.9 % Platelet Count 47 TH/MM3 Mean Platelet Volume 9.0 FL Neutrophils (%) (Auto) 1.2 % Lymphocytes (%) (Auto) 92.7 % Monocytes (%) (Auto) 5.9 % Eosinophils (%) (Auto) 0.2 % Basophils (%) (Auto) 0.0 % Neutrophils # (Auto) 0.0 TH/MM3 Lymphocytes # (Auto) 0.6 TH/MM3 Monocytes # (Auto) 0.0 TH/MM3 Eosinophils # (Auto) 0.0 TH/MM3 Basophils # (Auto) 0.0 TH/MM3 CBC Comment AUTO DIFF Differential Total Cells 100 Counted Neutrophils % (Manual) 1 % Lymphocytes % 96 % Monocytes % 2 % Eosinophils % 1 % Neutrophils # (Manual) 0.0 TH/MM3 Differential Comment FINAL DIFF MANUAL Platelet Estimate LOW Platelet Morphology Comment NORMAL Sodium Level 139 MEQ/L Potassium Level 3.8 MEQ/L Chloride Level 102 MEQ/L Carbon Dioxide Level 29.4 MEQ/L Anion Gap 8 MEQ/L Blood Urea Nitrogen 10 MG/DL Creatinine 0.65 MG/DL Estimat Glomerular Filtration 93 ML/MIN Rate Random Glucose 90 MG/DL Calcium Level 8.9 MG/DL Administered Medications Medications (Trade) Dose Ordered Sig/Prashant Route PRN Reason Start Time Stop Time Status Last Admin Dose Admin Carisoprodol (Soma) 350 mg TID PRN PO PAIN 05/16/16 17:30 06/15/16 08:03 Furosemide (Lasix) 20 mg DAILY PO 05/17/16 09:00 06/20/16 08:12 Gabapentin (Neurontin) 300 mg TID PO 05/16/16 18:00 06/20/16 08:12 Levothyroxine Sodium (Synthroid) 25 mcg DAILY@06 PO 05/17/16 06:00 06/20/16 05:31 Potassium Chloride (KCl) 10 meq DAILY PO 05/17/16 09:00 06/20/16 08:12 Famotidine (Pepcid) 20 mg BID PO 05/16/16 21:00 06/20/16 08:12 IV Flush (NS Flush) 2 ml BID IV 05/16/16 21:00 06/20/16 08:24 Ondansetron HCl (Zofran Inj) 4 mg Q6H PRN IV NAUSEA 05/16/16 17:45 06/17/16 21:06 Acetaminophen (Tylenol) 650 mg Q6HR PRN PO headache 05/17/16 06:30 06/16/16 12:08 Oxycodone/ Acetaminophen (Percocet 5-325 Mg) 1 tab Q4H PRN PO pain 1-5 05/20/16 10:00 06/14/16 11:36 Oxycodone HCl (Roxicodone) 10 mg Q4H PRN PO pain 6-10 05/21/16 16:00 06/20/16 08:12 IV Flush (NS Flush) DAILY IVF 05/24/16 09:00 06/20/16 08:16 Heparin Sodium (Porcine) (Heparin Central Flush) DAILY IVF 05/24/16 09:00 06/20/16 08:16 IV Flush (NS Flush) UNSCH PRN IVF SEE PROTOCOL 05/23/16 15:30 06/16/16 21:15 Heparin Sodium (Porcine) (Heparin Central Flush) UNSCH PRN IVF SEE PROTOCOL 05/23/16 15:30 06/02/16 04:01 Docusate Sodium (Colace) 100 mg BID PO 05/24/16 11:00 Hold 06/05/16 07:58 Morphine Sulfate (Morphine Inj) 2 mg Q2HR PRN IV PUSH SEVERE BREAKTHROUGH PAIN 05/27/16 08:45 06/20/16 09:57 Diazepam (Valium) 10 mg Q12HR PO 05/28/16 09:00 06/20/16 08:12 Temazepam 15 mg 15 mg HS PRN PO SLEEP 05/28/16 08:00 06/01/16 22:23 Cefepime HCl 2000 mg/Sodium Chloride 100 ml @ 200 mls/hr Q8H IV 06/05/16 18:00 06/20/16 08:16 Micafungin Sodium/ Sodium Chloride (Mycamine Inj/NS Inj) 100 ml @ 100 mls/hr Q24H IV 06/10/16 16:00 06/19/16 16:52 Potassium Phos/ Sodium Phos (K-Phos Neutral) 250 mg Q6HR PO 06/12/16 12:00 06/20/16 05:31 Acyclovir (Zovirax) 400 mg DAILY PO 06/17/16 09:00 06/20/16 08:12 Pantoprazole Sodium 20 mg 20 mg DAILY PO 06/17/16 09:00 06/20/16 08:12 Vancomycin HCl/ Sodium Chloride (Vancomycin Inj/ NS 250 ml Inj) 262.5 ml @ 250 mls/hr Q12H IV 06/20/16 06:00 06/20/16 05:30 Diphenoxylate HCl/ Atropine (Lomotil Tab) 1 tab Q6H PRN PO LOOSE STOOL 06/20/16 07:45 06/20/16 08:12 Objective Remarks GENERAL: Pleasant female, sitting up in bed in NAD. SKIN: Warm and dry. Donaldson catheter, in place, right chest wall. HEAD: Normocephalic. EYES: No injection or drainage. NECK: Supple, trachea midline. CARDIOVASCULAR: Regular rate and rhythm. RESPIRATORY: Breath sounds equal bilaterally. No accessory muscle use. GASTROINTESTINAL: Abdomen soft, non-tender. no masses. EXTREMITIES: No cyanosis. no edema. NEUROLOGICAL: awake and alert, normal speech. moving all extremities. Assessment/Plan Problem List: (1) AML (acute myeloid leukemia) Status: Acute Plan: 06/20/16: D25. slight bump in WBC. platelets improving. 06/19/16: D24. Platelet counts starting to improve. Continue to wait for white cells to recover. Pt doing very well clinically. 06/18/16: D23. Doing well. We will await counts to improve/ bone marrow recovery. Absolute neutrophil count still at 0 today. 06/17/16: D22. bone marrow biopsy shows no residual leukemia. awaiting bone marrow recovery. nausea resolved. diarrhea persistent. 06/16/16: D21: waiting on bone marrow recovery. flow shows only 0.08% blasts. awaiting pathology. no diarrhea since last night. fs faxed to npr for follow up after discharge. 06/15/16: diarrhea worsening. suspect abx side effect. will stop allopurinol as this also may be contributing. 06/14/16: D19. no transfusion needed today. mild headache. monitor. Having some diarrhea, C. difficile negative 2. 06/13/16: D18. BMB today. no nausea. stable. 06/12/16:D17: Intermittent headache. Blood counts stable. Bone marrow biopsy tomorrow. 06/11/16: D16. Doing well today. Counts stable. Headache improved; CT brain negative. Will plan for bone marrow biopsy with IR on Thursday. 06/10/16: D15. 1 unit plts. dizzy w/ headache. CT brain pending 06/09/16:D14. 2 units pRBC today. 06/08/16: No issues overnight. Plt's are low at 11,000. Likely will drop again tomorrow, so we will transfuse x1 dose today. No bleeding. 06/07/16: Afebrile. Neutropenic precautions continue. 06/06/16: afebrile overnight. continue abx per ID. pain pump refilled. 06/05/16: spiked fever overnight. started on Cefepime. Levaquin stopped. ID consulted. CT ab/pelvis negative 06/04/16: D9. 1 unit plt 06/03/16: D8 chemo finishes late tonight. started on acyclovir/diflucan/levaquin for prophylaxis. 06/01/16: D6. nauseated. otherwise no events. continue chemo. 05/31/16:D5. no events. 05/30/16: D4 chemotherapy. no transfusion today. 05/29/16: D3 chemotherapy. Tolerated well Blood counts trending lower. Transfuse PRBC 2U. CSF cytology negative. 05/28/16: Tolerated chemo well, no significant side effect. Blood counts started to trend down. 05/27/16: D1. Abril-C + Idarubicin. AML w/ intermediate risk cytogenetics. (2) Pancytopenia Status: Acute Plan: transfuse for platelets less than 10k and a Hgb of less than 7. (3) presence of pain pump Status: Chronic Plan: --patient with intrathecal pain pump --managed by Dr. Omer outpatient --pain pump refilled on 06/06/16 Assessment 61y/o female with AML, s/p induction with ABRIL-C + KELSEA. Plan 1. monitor CBC 2. stop abx when WBC recovers 3. Lomotil for diarrhea. Attending Statement The exam, history, and the medical decision-making described in the above note were completed with the assistance of the mid-level provider. I reviewed and agree with the findings presented. I attest that I had a [id number] encounter with the patient on the same day, and personally performed and documented my assessment and findings in the medical record. +diarrhea yesterday. Will give her antidiarrheal meds. Platelet trended up. Hgb stable. WBC not recovering yet. Continue supportive care. Problem Qualifiers (1) AML (acute myeloid leukemia): Qualified Code: C92.00 - Acute myeloid leukemia not having achieved remission Radha Lawrence Jun 20, 2016 12:21 Ryan Tripp MD Jun 20, 2016 13:22
[2016-06-20 16:00] VITALS: BP 105/58; PULSE 80; RESP 16; TEMP 97; O2SAT 95
[2016-06-20] MEDS: MICAFUNGIN INJ 100 MG in SODIUM CHLORIDE 0.9% INJ 100 ML IV SCH (17:26)
[2016-06-20 20:00] VITALS: BP 123/58; PULSE 80; RESP 17; TEMP 99.1; O2SAT 91
[2016-06-21] VITALS: BP 110/58; PULSE 96; RESP 18; TEMP 99.8; O2SAT 93
[2016-06-21] MEDS: LACTATED RINGER'S 1000 ML IV SCH (01:15)
[2016-06-21] MEDS: CEFEPIME INJ 2,000 MG in SODIUM CHLORIDE 0.9% INJ 100 ML IV SCH ×3 (02:22→17:05)
[2016-06-21] MEDS: MORPHINE SULFATE 4 MG/ML INJ IV PUSH PRN ×2 (03:59→17:11)
[2016-06-21 04:00] VITALS: BP 116/56; PULSE 83; RESP 16; TEMP 98.7; O2SAT 94
[2016-06-21] MEDS: VANCOMYCIN INJ 1,250 MG in SODIUM CHLOR 0.9% 250 ML INJ 250 ML IV SCH ×2 (05:35→18:15)
[2016-06-21] MEDS: LEVOTHYROXINE SODIUM 25 MCG TAB PO SCH (05:35)
[2016-06-21] MEDS: POTASSIUM PHOSPHATE/SODIUM PHOSPHATE 250 MG TAB PO SCH ×4 (05:35→23:21)
[2016-06-21 06:30] LABS: HEMATOCRIT 21.5 % (35.0-46.0); MEAN CELL VOLUME 88.9 FL (80.0-100.0); MEAN CORPUSCULAR HEMOGLOBIN 31.7 PG (27.0-34.0); MEAN CORPUSCULAR HGB CONC 35.7 % (32.0-36.0); PLATELET COUNT 78 TH/MM3 (150-450); RED BLOOD COUNT 2.42 MIL/MM3 (4.00-5.30); RED CELL DISTRIBUTION WIDTH 12.8 % (11.6-17.2); WHITE BLOOD COUNT 0.6 TH/MM3 (4.0-11.0)
[2016-06-21 06:38] LABS: HEMO FLAGS AUTO DIFF
[2016-06-21 08:00] VITALS: BP 110/60; PULSE 88; RESP 8; TEMP 98.2; O2SAT 98
--- NOTE | 2016-06-21 08:04 | PD.ONC.PN ---
Subjective Subjective Remarks Tmax 99.8 overnight. Patient continuing to complain of diarrhea. She denies any abdominal pain. Eager to go home. Objective Data Date Time Temp Pulse Resp B/P Pulse Ox O2 Delivery O2 Flow Rate FiO2 06/21/16 04:00 98.7 83 16 116/56 94 06/21/16 00:00 99.8 96 18 110/58 93 06/20/16 20:00 99.1 80 17 123/58 91 06/20/16 16:00 97.0 80 16 105/58 95 06/20/16 12:00 96.2 91 16 98/55 96 Result Diagram: 06/21/16 0540 06/20/16 0535 Laboratory Results Laboratory Tests Test 06/21/16 05:40 White Blood Count 0.6 TH/MM3 Red Blood Count 2.42 MIL/MM3 Hemoglobin 7.7 GM/DL Hematocrit 21.5 % Mean Corpuscular Volume 88.9 FL Mean Corpuscular Hemoglobin 31.7 PG Mean Corpuscular Hemoglobin 35.7 % Concent Red Cell Distribution Width 12.8 % Platelet Count 78 TH/MM3 Mean Platelet Volume 8.8 FL Neutrophils (%) (Auto) % Lymphocytes (%) (Auto) % Monocytes (%) (Auto) % Eosinophils (%) (Auto) % Basophils (%) (Auto) % Neutrophils # (Auto) TH/MM3 Lymphocytes # (Auto) TH/MM3 Monocytes # (Auto) TH/MM3 Eosinophils # (Auto) TH/MM3 Basophils # (Auto) TH/MM3 CBC Comment AUTO DIFF Administered Medications Medications (Trade) Dose Ordered Sig/Prashant Route PRN Reason Start Time Stop Time Status Last Admin Dose Admin Carisoprodol (Soma) 350 mg TID PRN PO PAIN 05/16/16 17:30 06/15/16 08:03 Furosemide (Lasix) 20 mg DAILY PO 05/17/16 09:00 06/20/16 08:12 Gabapentin (Neurontin) 300 mg TID PO 05/16/16 18:00 06/20/16 17:26 Levothyroxine Sodium (Synthroid) 25 mcg DAILY@06 PO 05/17/16 06:00 06/21/16 05:35 Potassium Chloride (KCl) 10 meq DAILY PO 05/17/16 09:00 06/20/16 08:12 Famotidine (Pepcid) 20 mg BID PO 05/16/16 21:00 06/20/16 21:01 IV Flush (NS Flush) 2 ml BID IV 05/16/16 21:00 06/20/16 21:05 Ondansetron HCl (Zofran Inj) 4 mg Q6H PRN IV NAUSEA 05/16/16 17:45 06/17/16 21:06 Acetaminophen (Tylenol) 650 mg Q6HR PRN PO headache 05/17/16 06:30 06/16/16 12:08 Oxycodone/ Acetaminophen (Percocet 5-325 Mg) 1 tab Q4H PRN PO pain 1-5 05/20/16 10:00 06/14/16 11:36 Oxycodone HCl (Roxicodone) 10 mg Q4H PRN PO pain 6-10 05/21/16 16:00 06/21/16 02:27 IV Flush (NS Flush) DAILY IVF 05/24/16 09:00 06/20/16 08:16 Heparin Sodium (Porcine) (Heparin Central Flush) DAILY IVF 05/24/16 09:00 06/20/16 08:16 IV Flush (NS Flush) UNSCH PRN IVF SEE PROTOCOL 05/23/16 15:30 06/16/16 21:15 Heparin Sodium (Porcine) (Heparin Central Flush) UNSCH PRN IVF SEE PROTOCOL 05/23/16 15:30 06/02/16 04:01 Docusate Sodium (Colace) 100 mg BID PO 05/24/16 11:00 Hold 06/05/16 07:58 Morphine Sulfate (Morphine Inj) 2 mg Q2HR PRN IV PUSH SEVERE BREAKTHROUGH PAIN 05/27/16 08:45 06/21/16 03:59 Diazepam (Valium) 10 mg Q12HR PO 05/28/16 09:00 06/20/16 21:01 Temazepam 15 mg 15 mg HS PRN PO SLEEP 05/28/16 08:00 06/01/16 22:23 Cefepime HCl 2000 mg/Sodium Chloride 100 ml @ 200 mls/hr Q8H IV 06/05/16 18:00 06/21/16 02:22 Micafungin Sodium/ Sodium Chloride (Mycamine Inj/NS Inj) 100 ml @ 100 mls/hr Q24H IV 06/10/16 16:00 06/20/16 17:26 Potassium Phos/ Sodium Phos (K-Phos Neutral) 250 mg Q6HR PO 06/12/16 12:00 06/21/16 05:35 Acyclovir (Zovirax) 400 mg DAILY PO 06/17/16 09:00 06/20/16 08:12 Pantoprazole Sodium 20 mg 20 mg DAILY PO 06/17/16 09:00 06/20/16 08:12 Vancomycin HCl/ Sodium Chloride (Vancomycin Inj/ NS 250 ml Inj) 262.5 ml @ 250 mls/hr Q12H IV 06/20/16 06:00 06/21/16 05:35 Diphenoxylate HCl/ Atropine (Lomotil Tab) 1 tab Q6H PRN PO LOOSE STOOL 06/20/16 07:45 06/20/16 21:03 Objective Remarks GENERAL: Middle aged female, sitting up in bed in nad. SKIN: Warm and dry. Donaldson catheter, right chest wall. HEAD: Normocephalic. EYES: No injection or drainage. NECK: Supple, trachea midline. CARDIOVASCULAR: Regular rate and rhythm. RESPIRATORY: Breath sounds equal bilaterally. No accessory muscle use. GASTROINTESTINAL: Abdomen soft, non-tender. no masses. EXTREMITIES: No cyanosis. no edema. NEUROLOGICAL: AO x3. no focal deficit. Assessment/Plan Problem List: (1) AML (acute myeloid leukemia) Status: Acute Plan: 06/21/16: awaiting WBC recovery. platelets continuing to improve. 06/20/16: D25. slight bump in WBC. platelets improving. 06/19/16: D24. Platelet counts starting to improve. Continue to wait for white cells to recover. Pt doing very well clinically. 06/18/16: D23. Doing well. We will await counts to improve/ bone marrow recovery. Absolute neutrophil count still at 0 today. 06/17/16: D22. bone marrow biopsy shows no residual leukemia. awaiting bone marrow recovery. nausea resolved. diarrhea persistent. 06/16/16: D21: waiting on bone marrow recovery. flow shows only 0.08% blasts. awaiting pathology. no diarrhea since last night. fs faxed to npr for follow up after discharge. 06/15/16: diarrhea worsening. suspect abx side effect. will stop allopurinol as this also may be contributing. 06/14/16: D19. no transfusion needed today. mild headache. monitor. Having some diarrhea, C. difficile negative 2. 06/13/16: D18. BMB today. no nausea. stable. 06/12/16:D17: Intermittent headache. Blood counts stable. Bone marrow biopsy tomorrow. 06/11/16: D16. Doing well today. Counts stable. Headache improved; CT brain negative. Will plan for bone marrow biopsy with IR on Thursday. 06/10/16: D15. 1 unit plts. dizzy w/ headache. CT brain pending 06/09/16:D14. 2 units pRBC today. 06/08/16: No issues overnight. Plt's are low at 11,000. Likely will drop again tomorrow, so we will transfuse x1 dose today. No bleeding. 06/07/16: Afebrile. Neutropenic precautions continue. 06/06/16: afebrile overnight. continue abx per ID. pain pump refilled. 06/05/16: spiked fever overnight. started on Cefepime. Levaquin stopped. ID consulted. CT ab/pelvis negative 06/04/16: D9. 1 unit plt 06/03/16: D8 chemo finishes late tonight. started on acyclovir/diflucan/levaquin for prophylaxis. 06/01/16: D6. nauseated. otherwise no events. continue chemo. 05/31/16:D5. no events. 05/30/16: D4 chemotherapy. no transfusion today. 05/29/16: D3 chemotherapy. Tolerated well Blood counts trending lower. Transfuse PRBC 2U. CSF cytology negative. 05/28/16: Tolerated chemo well, no significant side effect. Blood counts started to trend down. 05/27/16: D1. Abril-C + Idarubicin. AML w/ intermediate risk cytogenetics. (2) Pancytopenia Status: Acute Plan: transfuse for platelets less than 10k and a Hgb of less than 7. (3) presence of pain pump Status: Chronic Plan: --patient with intrathecal pain pump --managed by Dr. Omer outpatient --pain pump refilled on 06/06/16 Assessment 61y/o female with AML, s/p induction with ABRIL-C + KELSEA. Plan 1. continue Lomotil 2. monitor CBC 3. may consider Neupogen next week if leukopenia persists. Attending Statement Diarrhea , Wants to go home. D/W her that wbc is still low for her to go home. consider neupogen if ANC remains low . The exam, history, and the medical decision-making described in the above note were completed with the assistance of the mid-level provider. I reviewed and agree with the findings presented. I attest that I had a [id number] encounter with the patient on the same day, and personally performed and documented my assessment and findings in the medical record. Problem Qualifiers (1) AML (acute myeloid leukemia): Qualified Code: C92.00 - Acute myeloid leukemia not having achieved remission Radha Lawrence Jun 21, 2016 08:04 Vu Silver MD Jun 21, 2016 19:22
--- NOTE | 2016-06-21 08:22 | HHI.PR ---
Subjective Remarks in no acute distress. has on and off diarrhea. no abdominal pain, nausea or vomiting. Objective Vitals Vital Signs Date Time Temp Pulse Resp B/P Pulse Ox O2 Delivery O2 Flow Rate FiO2 06/21/16 04:00 98.7 83 16 116/56 94 06/21/16 00:00 99.8 96 18 110/58 93 06/20/16 20:00 99.1 80 17 123/58 91 06/20/16 16:00 97.0 80 16 105/58 95 06/20/16 12:00 96.2 91 16 98/55 96 I/O 06/20/16 06/20/16 06/20/16 06/21/16 06/21/16 06/21/16 07:00 15:00 23:00 07:00 15:00 23:00 Intake Total 850 ml 800 ml 720 ml 1070 ml Output Total 6 ml Balance 850 ml 794 ml 720 ml 1070 ml Intake Oral 480 ml 800 ml 720 ml 720 ml IV Total 370 ml 350 ml Emesis 6 ml # Voids 3 8 2 3 # Bowel Movements 2 1 Result Diagram: 06/21/16 0540 06/20/16 0535 Imaging Last Impressions Bone Biopsy CT 06/13/16 0000 Signed Impressions: Service Date/Time: Monday, June 13, 2016 08:35 - CONCLUSION: 1. Uncomplicated CT guided bone marrow aspirate. 2. Uncomplicated CT guided bone marrow biopsy. Juan Carlos Cherry MD FACR Head CT 06/10/16 0000 Signed Impressions: Service Date/Time: Friday, June 10, 2016 14:56 - CONCLUSION: Stable noncontrast head CT. No acute intracranial abnormality is identified. Bravo Jackman MD Abdomen/Pelvis CT 06/05/16 0000 Signed Impressions: Service Date/Time: May 22:13 - CONCLUSION: Minimal fluid in the pelvis, otherwise unremarkable. Cynthia Guardado MD Chest X-Ray 06/04/16 0000 Signed Impressions: Service Date/Time: Saturday, June 04, 2016 21:23 - CONCLUSION: No acute disease. Kilo Cotto MD Lumbar Puncture Fluoroscopy 05/23/16 0000 Signed Impressions: Service Date/Time: Monday, May 23, 2016 14:16 - CONCLUSION: Uncomplicated fluoroscopically guided lumbar puncture. Bubba Cherry MD Catheter Placement X-Ray 05/23/16 0000 Signed Impressions: Service Date/Time: Monday, May 23, 2016 14:16 - CONCLUSION: Uncomplicated Donaldson catheter placement as above. Bubba Cherry MD Chest CT 05/17/16 0000 Signed Impressions: Service Date/Time: Tuesday, May 17, 2016 15:14 - CONCLUSION: 1. 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 There are trace to very small bilateral pleural effusions and mild cardiomegaly noted. 2. No lobar consolidation. 3. Upper limits of normal to mildly enlarged mediastinal and bilateral hilar lymph nodes, nonspecific but presumably reactive. Bravo Mendez MD Objective Remarks GENERAL: This is a well-nourished, well-developed patient, in no apparent distress. CARDIOVASCULAR: Regular rate and regular rhythm without murmurs, gallops, or rubs. RESPIRATORY: Clear to auscultation. Breath sounds equal bilaterally. No wheezes , rales, or rhonchi. GASTROINTESTINAL: Abdomen soft, non-tender, nondistended. Normal, active bowel sounds MUSCULOSKELETAL: Extremities without clubbing, cyanosis, or edema. NEURO: Alert & Oriented x4 to person, place, time, situation. Moves all ext x4 Procedures EGD/ colonoscopy Bone marrow biopsy Medications and IVs Current Medications Sodium Chloride (NS 1000 ml Inj) 1,000 ml @ 1,000 mls/hr Q1H IV Last administered on 05/16/16at 15:22; Start 05/16/16 at 14:49; Stop 05/16/16 at 15 :48; Status DC IV Flush (NS Flush) 2 ml UNSCH PRN IVF FLUSH AFTER USING IV ACCESS Last administered on 05/16/16 16:58; Start 05/16/16 at 15:00; Stop 05/16/16 at 17 :36; Status DC Pantoprazole Sodium (Protonix Inj) 40 mg ONCE ONCE IV PUSH Last administered on 05/16/16at 16:57; Start 05/16/16 at 16:45; Stop 05/16/16 at 16:46; Status DC Carisoprodol (Soma) 350 mg TID PRN PO PAIN Last administered on 06/15/16t 08:03 ; Start 05/16/16 at 17:30 Furosemide (Lasix) 20 mg DAILY PO Last administered on 06/20/16 08:12; Start 05/17/16 at 09:00 Gabapentin (Neurontin) 300 mg TID PO Last administered on 06/20/16 17:26; Start 05/16/16 at 18:00 Levothyroxine Sodium (Synthroid) 25 mcg DAILY@06 PO Last administered on 05:35; Start 05/17/16 at 06:00 Potassium Chloride (KCl) 10 meq DAILY PO Last administered on 06/20/16 08:12; Start 05/17/16 at 09:00 Famotidine 20 mg 20 mg BID PO Last administered on 06/20/16 21:01; Start 05/16 at 21:00 Sodium Chloride (NS 1000 ml Inj) 1,000 ml @ 75 mls/hr [id number] IV Last administered on 05/16/16at 17:59; Start 05/16/16 at 17:31; Stop 05/17/16 at 06 :50; Status DC IV Flush (NS Flush) 2 ml UNSCH PRN IV FLUSH AFTER USING IV ACCESS; Start 05/16 at 17:45 IV Flush (NS Flush) 2 ml BID IV Last administered on 06/20/16 21:05; Start at 21:00 Ondansetron HCl (Zofran Inj) 4 mg Q6H PRN IV NAUSEA Last administered on 21:06; Start 05/16/16 at 17:45 Pantoprazole Sodium (Protonix Inj) 40 mg Q24H IV PUSH Last administered on 08:42; Start 05/17/16 at 09:00; Stop 05/21/16 at 14:52; Status DC Influenza Virus Vaccine (Flu (Quadrivalent) Vaccine Inj) 0.5 ml ONCE ONCE IM Last administered on 05/17/16at 11:51; Start 05/17/16 at 10:00; Stop 05/17/16 at 10:01; Status DC Acetaminophen (Tylenol) 650 mg Q6HR PRN PO headache Last administered on 12:08; Start 05/17/16 at 06:30 Diatrizoate Meglum/ Diatrizoate Sod ( Gastromorgan Liq) 18 ml ONCE ONCE PO Last administered on 05/17/16at 11:49; Start 05/17/16 at 11:15; Stop 05/17/16 at 11:16; Status DC Iohexol (Omnipaque 350 Inj) 75 ml STK-MED ONCE IV Last administered on at 15:29; Start 05/17/16 at 15:29; Stop 05/17/16 at 15:30; Status DC Diazepam (Valium) 10 mg Q12HR PO Last administered on 05/24/16 08:12; Start 05/18/16 at 12:00; Stop 05/24/16 at 13:36; Status DC Polyethylene Glycol/ Electrolytes 4000 ml 4,000 ml ONCE ONCE PO Last administered on 05/19/16 16:34; Start 05/19/16 at 16:00; Stop 05/19/16 at 16:01; Status DC Lactated Ringer's (Lr 1000 ml Inj) 1,000 ml @ 30 mls/hr Q24H IV ; Start at 01:15 Acetaminophen (Tylenol) 650 mg ONCE ONCE PO Last administered on 05/20/16 05: 00; Start 05/20/16 at 05:00; Stop 05/20/16 at 05:03; Status DC Lidocaine/ Epinephrine 20 ml 20 ml STK-MED ONCE .ROUTE Last administered on 05/20 08:36; Start 05/20/16 at 08:36; Stop 05/20/16 at 08:49; Status DC Sodium Bicarbonate (Sodium Bicarbonate 8.4% Inj) 50 ml @ As Directed STK-MED ONCE .ROUTE Last administered on 05/20/16 08:36; Start 05/20/16 at 08:36; Stop 05/20/16 at 08:50; Status DC Fentanyl Citrate (fentaNYL INJ) 250 mcg STK-MED ONCE .ROUTE Last administered on 05/20/16 08:43; Start 05/20/16 at 08:43; Stop 05/20/16 at 08:51; Status DC Midazolam HCl (Versed Inj) 5 mg STK-MED ONCE .ROUTE Last administered on 08:43; Start 05/20/16 at 08:43; Stop 05/20/16 at 08:51; Status DC Oxycodone/ Acetaminophen (Percocet 5-325 Mg) 1 tab Q4H PRN PO pain 1-5 Last administered on 06/14/16 11:36; Start 05/20/16 at 10:00 Propofol (Diprivan 200 Mg/20 ml Inj) 310 mg STK-MED ONCE IV ; Start 05/20/16 at 12:55; Stop 05/20/16 at 13:30; Status DC Mesalamine (Canasa Supp) 1,000 mg HS RECTAL ; Start 05/20/16 at 21:00; Status Hold Pantoprazole Sodium (Protonix) 40 mg DAILY PO Last administered on 06/17/16 08 :07; Start 05/22/16 at 09:00; Stop 06/17/16 at 08:57; Status DC Oxycodone HCl (Roxicodone) 10 mg Q4H PRN PO pain 6-10 Last administered on 02:27; Start 05/21/16 at 16:00 Acetaminophen/ Butalbital/ Caffeine 1 tab 1 tab ONCE ONCE PO Last administered on 05/21/16 17:42; Start 05/21/16 at 16:00; Stop 05/21/16 at 16:04; Status DC Vancomycin HCl 1000 mg/Sodium Chloride 250 ml @ 250 mls/hr WATER/WASTEWATER ENGINEER IV Last administered on 05/23/16 13:00; Start 05/22/16 at 16:45; Stop 05/26/16 at 16:44; Status DC Cefazolin Sodium/ Dextrose (Ancef 2 Gm Premix) 50 ml @ 100 mls/hr WATER/WASTEWATER ENGINEER IV ; Start 05/22/16 at 18:00; Stop 05/26/16 at 17:59; Status DC Bisacodyl (Dulcolax Supp) 10 mg DAILY PRN [place] CONSTIPATION Last administered on 05/22/16 22:31; Start 05/22/16 at 22:15; Stop 05/24/16 at 10:23; Status DC Sodium Biphosphate/ Sodium Phosphate (Fleets Enema (Adult)) 133 ml ONCE PRN [place] constipation; Start 05/22/16 at 22:15; Stop 05/23/16 at 22:14; Status Cancel Midazolam HCl (Versed Inj) 5 mg STK-MED ONCE .ROUTE Last administered on 13:44; Start 05/23/16 at 13:44; Stop 05/23/16 at 13:45; Status DC Fentanyl Citrate (fentaNYL INJ) 250 mcg STK-MED ONCE .ROUTE Last administered on 05/23/16 13:44; Start 05/23/16 at 13:44; Stop 05/23/16 at 13:45; Status DC Heparin Sodium (Porcine) (*HEPARIN CENTRAL FLUSH PERIprocedural ONLY) 500 units STK-MED ONCE .ROUTE Last administered on 05/23/16 15:20; Start 05/23/16 at 14:30 ; Stop 05/23/16 at 14:31; Status DC Lidocaine/ Epinephrine (Xylocaine-Epi 1%-1:100,000 Inj) 20 ml STK-MED ONCE .ROUTE Last administered on 05/23/16 15:02; Start 05/23/16 at 14:30; Stop at 14:31; Status DC Midazolam HCl (Versed Inj) 5 mg STK-MED ONCE .ROUTE Last administered on 15:10; Start 05/23/16 at 15:10; Stop 05/23/16 at 15:11; Status DC Fentanyl Citrate 250 mcg 250 mcg STK-MED ONCE .ROUTE Last administered on 15:10; Start 05/23/16 at 15:10; Stop 05/23/16 at 15:11; Status DC Ceftriaxone Sodium/Sodium Chloride (Rocephin Inj/NS Inj) 100 ml @ 200 mls/hr Q24H IV Last administered on 05/30/16 17:19; Start 05/23/16 at 16:00; Stop at 09:52; Status DC IV Flush (NS Flush) DAILY IVF Last administered on 06/20/16 08:16; Start at 09:00 Heparin Sodium (Porcine) (Heparin Central Flush) DAILY IVF Last administered on 06/20/16 08:16; Start 05/24/16 at 09:00 IV Flush (NS Flush) UNSCH PRN IVF SEE PROTOCOL Last administered on 06/16/16 21:15; Start 05/23/16 at 15:30 Heparin Sodium (Porcine) (Heparin Central Flush) UNSCH PRN IVF SEE PROTOCOL Last administered on 06/02/16 04:01; Start 05/23/16 at 15:30 Docusate Sodium (Colace) 100 mg BID PO Last administered on 06/05/16 07:58; Start 05/24/16 at 11:00; Status Hold Lactulose (Lactulose Liq) 30 ml ONCE ONCE PO Last administered on 05/24/16 12: 15; Start 05/24/16 at 10:30; Stop 05/24/16 at 10:31; Status DC Lorazepam (Ativan) 1 mg Q4HR PRN PO anxiety Last administered on 05/24/16 22:38 ; Start 05/24/16 at 13:45; Stop 05/25/16 at 09:00; Status DC Lorazepam (Ativan) 1 mg ONCE ONCE PO Last administered on 05/24/16 14:27; Start 05/24/16 at 13:45; Stop 05/24/16 at 13:46; Status DC Lorazepam (Ativan) 2 mg Q6H PRN PO anxiety Last administered on 05/27/16 07:35 ; Start 05/25/16 at 08:59; Stop 05/28/16 at 08:03; Status DC Lactulose (Lactulose Liq) 30 ml QID PO Last administered on 05/25/16 20:06; Start 05/25/16 at 13:00; Stop 05/25/16 at 21:01; Status DC Polyethylene Glycol (Miralax) 17 gm DAILY PO Last administered on 06/04/16 08: 27; Start 05/25/16 at 14:30; Stop 06/15/16 at 10:54; Status DC Lactic Acid (Lac-Hydrin 12% Lotion) 1 applic BID PRN TOPICAL irritation; Start 05/25/16 at 14:30 Sumatriptan Succinate 25 mg 25 mg ONCE ONCE PO Last administered on 05/25/16 20:06; Start 05/25/16 at 19:45; Stop 05/25/16 at 19:47; Status DC Sodium Chloride (NS 1000 ml Inj) 1,000 ml @ 100 mls/hr Q10H IV Last administered on 06/15/16 10:35; Start 05/26/16 at 09:30; Stop 06/15/16 at 10:54 ; Status DC Allopurinol (Zyloprim) 300 mg DAILY PO Last administered on 06/15/16 08:04; Start 05/26/16 at 09:30; Stop 06/15/16 at 10:19; Status DC Morphine Sulfate 2 mg 2 mg ONCE ONCE IV PUSH Last administered on 05/26/16 10: 46; Start 05/26/16 at 10:30; Stop 05/26/16 at 10:31; Status DC Idarubicin HCl 22.6 mg/Sodium Chloride 122.6 ml @ 490.4 mls/ hr Q24H IV ; Start 05/26/16 at 16:00; Stop 05/26/16 at 17:07; Status DC Granisetron HCl 1 mg/Dexamethasone Sodium Phosphate 20 mg/Sodium Chloride 56 ml @ 336 mls/hr Q24H IV ; Start 05/26/16 at 15:30; Stop 05/26/16 at 17:09; Status DC Cytarabine 189 mg/ Sodium Chloride 500 ml @ 20.833 mls/ hr Q24H IV ; Start 05/26 at 17:00; Stop 05/26/16 at 17:08; Status DC Idarubicin HCl 22.6 mg/Sodium Chloride 122.6 ml @ 490.4 mls/ hr Q24H IV Last administered on 05/29/16 09:00; Start 05/27/16 at 09:00; Stop 05/29/16 at 09:14 ; Status DC Cytarabine 189 mg/ Sodium Chloride 500 ml @ 20.833 mls/ hr Q24H IV Last administered on 06/03/16 04:14; Start 05/27/16 at 10:00; Stop 06/03/16 at 09:59 ; Status DC Granisetron HCl/ Dexamethasone Sodium Phosphate/ Sodium Chloride (Kytril Inj/ Decadron Inj/NS Inj) 56 ml @ 336 mls/hr Q24H IV Last administered on 22:22; Start 05/27/16 at 08:30; Stop 06/02/16 at 08:39; Status DC Morphine Sulfate (Morphine Inj) 2 mg Q2HR PRN IV PUSH SEVERE BREAKTHROUGH PAIN Last administered on 06/21/16 03:59; Start 05/27/16 at 08:45 Lactulose (Lactulose Liq) 30 ml DAILY PO Last administered on 06/05/16 07:57; Start 05/27/16 at 09:00; Stop 06/15/16 at 10:54; Status DC Diazepam (Valium) 10 mg Q12HR PO Last administered on 06/20/16 21:01; Start 04/03 at 09:00 Temazepam 15 mg 15 mg HS PRN PO SLEEP Last administered on 06/01/16 22:23; Start 05/28/16 at 08:00 Sodium Chloride (NS 250 ml Inj) 250 ml @ 15 mls/hr ONCE ONCE IV Last administered on 05/29/16 14:07; Start 05/29/16 at 08:00; Stop 05/30/16 at 00:39 ; Status DC Acetaminophen (Tylenol) 650 mg Q4H PRN PO SEE LABEL COMMENTS; Start 05/29/16 at 08:00; Stop 05/29/16 at 12:01; Status DC Diphenhydramine HCl (Benadryl) 25 mg Q4H PRN PO SEE LABEL COMMENTS; Start 05/29 at 08:00; Stop 05/29/16 at 12:01; Status DC Diphenhydramine HCl (Benadryl) 25 mg Q4H PRN PO SEE LABEL COMMENTS Last administered on 05/29/16 12:54; Start 05/29/16 at 13:00; Stop 05/29/16 at 17:01 ; Status DC Acetaminophen (Tylenol) 650 mg Q4H PRN PO SEE LABEL COMMENTS Last administered on 05/29/16 12:54; Start 05/29/16 at 13:00; Stop 05/29/16 at 17:01; Status DC Diphenhydramine HCl (Benadryl) 25 mg Q4H PRN PO SEE LABEL COMMENTS Last administered on 05/29/16 21:21; Start 05/29/16 at 21:15; Stop 05/30/16 at 01:16 ; Status DC Multi-Ingredient Mouthwash/Gargle (Magic Mouthwash Adult Liq) 5 ml QID SWISH- SWAL Last administered on 06/11/16 08:45; Start 06/03/16 at 09:00; Stop at 12:03; Status DC Acyclovir (Zovirax) 400 mg Q8HR PO Last administered on 06/16/16 05:44; Start 06/03/16 at 14:00; Stop 06/16/16 at 13:56; Status DC Fluconazole (Diflucan) 200 mg DAILY PO Last administered on 06/10/16 09:22; Start 06/03/16 at 09:00; Stop 06/10/16 at 15:16; Status DC Levofloxacin 250 mg 250 mg DAILY@11 PO Last administered on 06/04/16 11:27; Start 06/03/16 at 11:00; Stop 06/05/16 at 07:46; Status DC Sodium Chloride (NS 250 ml Inj) 250 ml @ 15 mls/hr ONCE ONCE IV ; Start at 09:00; Stop 06/05/16 at 01:39; Status DC Acetaminophen (Tylenol) 650 mg Q4H PRN PO SEE LABEL COMMENTS Last administered on 06/04/16 11:27; Start 06/04/16 at 09:00; Stop 06/04/16 at 13:01; Status DC Diphenhydramine HCl 25 mg 25 mg Q4H PRN PO SEE LABEL COMMENTS Last administered on 06/04/16 11:27; Start 06/04/16 at 09:00; Stop 06/04/16 at 13:01 ; Status DC Cefepime HCl/ Sodium Chloride (Maxipime Inj/NS Inj) 100 ml @ 200 mls/hr Q12H IV Last administered on 06/05/16 10:41; Start 06/04/16 at 22:00; Stop at 13:37; Status DC Diatrizoate Meglum/ Diatrizoate Sod 18 ml 18 ml ONCE ONCE PO Last administered on 06/05/16 13:19; Start 06/05/16 at 13:00; Stop 06/05/16 at 13:01 ; Status DC Cefepime HCl/ Sodium Chloride (Maxipime Inj/NS Inj) 100 ml @ 200 mls/hr Q8H IV Last administered on 06/21/16 02:22; Start 06/05/16 at 18:00 Azithromycin 500 mg 500 mg DAILY PO Last administered on 06/10/16 09:21; Start 06/05/16 at 14:00; Stop 06/10/16 at 15:16; Status DC Vancomycin HCl 1000 mg/Sodium Chloride 250 ml @ 250 mls/hr ONCE ONCE IV Last administered on 06/05/16 14:44; Start 06/05/16 at 14:00; Stop 06/05/16 at 14:59 ; Status DC Pharmacy Profile Note (Vancomycin Consult Pharmacy) 0 ml @ 0 mls/hr UNSCH OTHER ; Start 06/05/16 at 13:45 Metronidazole 500 mg 500 mg Q8HR PO Last administered on 06/18/16 13:42; Start 06/05/16 at 14:00; Stop 06/18/16 at 14:14; Status DC Vancomycin HCl/ Sodium Chloride (Vancomycin Inj/ NS 250 ml Inj) 262.5 ml @ 250 mls/hr Q12H IV Last administered on 06/10/16 01:03; Start 06/06/16 at 00:00; Stop 06/10/16 at 15:30; Status DC Miscellaneous Information SPECIFIC LAB TO BE DRAWN:VANCOMYCIN TROUGH DATE TO... ONCE ONCE XX Last administered on 06/07/16 11:45; Start 06/07/16 at 11:45; Stop 06/07/16 at 11:46; Status DC Iohexol (Omnipaque 350 Inj) 100 ml STK-MED ONCE IV Last administered on 22:20; Start 06/05/16 at 22:20; Stop 06/05/16 at 22:21; Status DC Patient Own Medication PT OWN MED: HYDROMORPHONE 40 MG/... UNSCH OTHER ; Start 06/06/16 at 11:00 Sodium Chloride (NS 250 ml Inj) 250 ml @ 15 mls/hr ONCE ONCE IV Last administered on 06/06/16 16:45; Start 06/06/16 at 12:45; Stop 06/07/16 at 05:24 ; Status DC Acetaminophen (Tylenol) 650 mg Q4H PRN PO SEE LABEL COMMENTS Last administered on 06/06/16 16:19; Start 06/06/16 at 12:45; Stop 06/06/16 at 16:46; Status DC Diphenhydramine HCl (Benadryl) 25 mg Q4H PRN PO SEE LABEL COMMENTS Last administered on 06/06/16 16:18; Start 06/06/16 at 12:45; Stop 06/06/16 at 16:46 ; Status DC Miscellaneous Information SPECIFIC LAB TO BE VIKRAM... ONCE ONCE XX Last administered on 06/08/16 13:45; Start 06/08/16 at 11:45; Stop 06/08/16 at 11:46 ; Status DC Sodium Chloride (NS 250 ml Inj) 250 ml @ 15 mls/hr ONCE ONCE IV Last administered on 06/08/16 13:00; Start 06/08/16 at 13:00; Stop 06/09/16 at 05:39 ; Status DC Diphenhydramine HCl 25 mg 25 mg Q4H PRN PO SEE LABEL COMMENTS; Start 06/08/16 at 13:00; Stop 06/08/16 at 17:01; Status DC Sodium Chloride (NS 250 ml Inj) 250 ml @ 15 mls/hr ONCE ONCE IV Last administered on 06/09/16 11:51; Start 06/09/16 at 07:30; Stop 06/10/16 at 00:09 ; Status DC Acetaminophen (Tylenol) 650 mg Q4H PRN PO SEE LABEL COMMENTS; Start 06/09/16 at 07:30; Stop 06/09/16 at 11:31; Status DC Diphenhydramine HCl (Benadryl) 25 mg Q4H PRN PO SEE LABEL COMMENTS; Start 06/09 at 07:30; Stop 06/09/16 at 11:31; Status DC Loperamide HCl 2 mg 2 mg UNSCH PRN PO DIARRHEA Last administered on 06/15/16 08:03; Start 06/09/16 at 11:15; Stop 06/15/16 at 10:54; Status DC Magnesium Sulfate/ Dextrose 100 ml @ 100 mls/hr Q1H IV Last administered on 15:35; Start 06/10/16 at 09:15; Stop 06/10/16 at 11:14; Status DC Sodium Chloride (NS 250 ml Inj) 250 ml @ 15 mls/hr ONCE ONCE IV Last administered on 06/10/16 12:26; Start 06/10/16 at 09:30; Stop 06/11/16 at 02:09 ; Status DC Acetaminophen (Tylenol) 650 mg Q4H PRN PO SEE LABEL COMMENTS Last administered on 06/10/16 10:57; Start 06/10/16 at 09:30; Stop 06/10/16 at 13:31; Status DC Diphenhydramine HCl 25 mg 25 mg Q4H PRN PO SEE LABEL COMMENTS Last administered on 06/10/16 10:57; Start 06/10/16 at 09:30; Stop 06/10/16 at 13:31 ; Status DC Micafungin Sodium 100 mg/Sodium Chloride 100 ml @ 100 mls/hr Q24H IV Last administered on 06/20/16 17:26; Start 06/10/16 at 16:00 Vancomycin HCl/ Sodium Chloride (Vancomycin Inj/ NS 500 ml Inj) 515 ml @ 250 mls/hr Q12H IV Last administered on 06/12/16 05:32; Start 06/10/16 at 18:00; Stop 06/12/16 at 09:22; Status DC Miscellaneous Information SPECIFIC LAB TO BE DRAWN:VANCOMYCIN TROUGH DATE TO... ONCE ONCE XX Last administered on 06/12/16 05:33; Start 06/12/16 at 05:45; Stop 06/12/16 at 05:46; Status DC Vancomycin HCl/ Sodium Chloride (Vancomycin Inj/ NS 500 ml Inj) 517.5 ml @ 250 mls/hr Q12H IV Last administered on 06/14/16 05:14; Start 06/12/16 at 18:00; Stop 06/14/16 at 10:10; Status DC Miscellaneous Information SPECIFIC LAB TO BE DRAWN:VANCOMYCIN TROUGH DATE TO... ONCE ONCE XX Last administered on 06/14/16 05:15; Start 06/14/16 at 05:45; Stop 06/14/16 at 05:46; Status DC Potassium Chloride (KCl) 30 meq ONCE ONCE PO Last administered on 06/12/16 13 :21; Start 06/12/16 at 09:30; Stop 06/12/16 at 09:37; Status DC Potassium Phos/ Sodium Phos (K-Phos Neutral) 250 mg Q6HR PO Last administered on 06/21/16 05:35; Start 06/12/16 at 12:00 Lidocaine/ Epinephrine (Xylocaine-Epi 1%-1:100,000 Inj) 20 ml STK-MED ONCE .ROUTE Last administered on 06/13/16 07:27; Start 06/13/16 at 07:27; Stop at 07:28; Status DC Fentanyl Citrate (fentaNYL INJ) 250 mcg STK-MED ONCE .ROUTE Last administered on 06/13/16 07:51; Start 06/13/16 at 07:51; Stop 06/13/16 at 07:52; Status DC Midazolam HCl (Versed Inj) 5 mg STK-MED ONCE .ROUTE Last administered on 07:51; Start 06/13/16 at 07:51; Stop 06/13/16 at 07:52; Status DC Thrombin (Thrombin Top Soln) 5,000 units STK-MED ONCE .ROUTE Last administered on 06/13/16 08:41; Start 06/13/16 at 08:41; Stop 06/13/16 at 08:42; Status DC Hydromorphone HCl (Dilaudid Pf Inj) 2 mg STK-MED ONCE .ROUTE Last administered on 06/13/16 08:48; Start 06/13/16 at 08:48; Stop 06/13/16 at 08:49; Status DC Gelatin 1 foam 1 foam STK-MED ONCE .XX Last administered on 06/13/16 09:33; Start 06/13/16 at 09:33; Stop 06/13/16 at 09:34; Status DC Sodium Chloride (NS 250 ml Inj) 250 ml @ 15 mls/hr ONCE ONCE IV Last administered on 06/13/16 12:48; Start 06/13/16 at 10:00; Stop 06/14/16 at 02:39 ; Status DC Acetaminophen (Tylenol) 650 mg Q4H PRN PO SEE LABEL COMMENTS; Start 06/13/16 at 10:00; Stop 06/13/16 at 14:01; Status DC Diphenhydramine HCl 25 mg 25 mg Q4H PRN PO SEE LABEL COMMENTS Last administered on 06/13/16 11:34; Start 06/13/16 at 10:00; Stop 06/13/16 at 14:01 ; Status DC Sodium Chloride (NS 250 ml Inj) 250 ml @ 15 mls/hr ONCE ONCE IV Last administered on 06/13/16 12:48; Start 06/13/16 at 12:00; Stop 06/14/16 at 04:39 ; Status DC Acetaminophen (Tylenol) 650 mg Q4H PRN PO SEE LABEL COMMENTS; Start 06/13/16 at 12:00; Stop 06/13/16 at 16:01; Status DC Diphenhydramine HCl (Benadryl) 25 mg Q4H PRN PO SEE LABEL COMMENTS; Start 06/13 at 12:00; Stop 06/13/16 at 16:01; Status DC Diphenhydramine HCl (Benadryl) 25 mg ONCE ONCE PO Last administered on 20:42; Start 06/13/16 at 21:00; Stop 06/13/16 at 21:01; Status DC Potassium Chloride 30 meq 30 meq ONCE ONCE PO Last administered on 06/14/16 10:40; Start 06/14/16 at 09:15; Stop 06/14/16 at 09:16; Status DC Vancomycin HCl/ Sodium Chloride (Vancomycin Inj/ NS 500 ml Inj) 520 ml @ 250 mls/hr Q12H IV Last administered on 06/16/16 05:44; Start 06/14/16 at 18:00; Stop 06/16/16 at 11:21; Status DC Miscellaneous Information SPECIFIC LAB TO BE VIKRAM... ONCE ONCE XX Last administered on 06/16/16 05:44; Start 06/16/16 at 05:45; Stop 06/16/16 at 05:46 ; Status DC Diphenoxylate HCl/ Atropine 1 tab 1 tab Q6H PRN PO diarrhea Last administered on 06/15/16 13:17; Start 06/15/16 at 11:00; Stop 06/16/16 at 14:33; Status DC Sodium Chloride (NS 250 ml Inj) 250 ml @ 15 mls/hr ONCE ONCE IV Last administered on 06/16/16 12:27; Start 06/16/16 at 08:30; Stop 06/17/16 at 01:09 ; Status DC Acetaminophen (Tylenol) 650 mg Q4H PRN PO SEE LABEL COMMENTS; Start 06/16/16 at 08:30; Stop 06/16/16 at 12:31; Status DC Diphenhydramine HCl (Benadryl) 25 mg Q4H PRN PO SEE LABEL COMMENTS Last administered on 06/16/16 12:08; Start 06/16/16 at 08:30; Stop 06/16/16 at 12:31 ; Status DC Simethicone 80 mg 80 mg PCHS PRN CHEW GAS RETENTION Last administered on 12:34; Start 06/16/16 at 09:15; Stop 06/16/16 at 14:10; Status DC Vancomycin HCl/ Sodium Chloride (Vancomycin Inj/ NS 500 ml Inj) 517.5 ml @ 250 mls/hr Q12H IV Last administered on 06/19/16 04:55; Start 06/16/16 at 18:00; Stop 06/19/16 at 10:13; Status DC Miscellaneous Information SPECIFIC LAB TO BE VIKRAM... ONCE ONCE XX Last administered on 06/19/16 05:15; Start 06/19/16 at 05:45; Stop 06/19/16 at 05:46; Status DC Acyclovir (Zovirax) 400 mg DAILY PO Last administered on 06/20/16 08:12; Start 06/17/16 at 09:00 Diphenhydramine HCl (Benadryl) 25 mg NOW ONCE PO ; Start 06/16/16 at 14:15; Stop 06/16/16 at 14:16; Status DC Diphenhydramine HCl 25 mg 25 mg Q8H PRN PO ITCHING; Start 06/16/16 at 14:15 Sodium Chloride (NS 1000 ml Inj) 1,000 ml @ 84 mls/hr [id number] IV Last administered on 06/17/16 03:09; Start 06/16/16 at 14:30; Stop 06/17/16 at 08:52 ; Status DC Pantoprazole Sodium (Protonix) 20 mg DAILY PO Last administered on 06/20/16 08: 12; Start 06/17/16 at 09:00 Diphenoxylate HCl/ Atropine 1 tab 1 tab NOW ONCE PO Last administered on 16:24; Start 06/17/16 at 15:45; Stop 06/17/16 at 15:46; Status DC Vancomycin HCl/ Sodium Chloride (Vancomycin Inj/ NS 250 ml Inj) 262.5 ml @ 250 mls/hr Q12H IV Last administered on 06/21/16 05:35; Start 06/20/16 at 06:00 Miscellaneous Information SPECIFIC LAB TO BE DRAWN:VANCOMYCIN TROUGH DATE TO... ONCE ONCE XX ; Start 06/22/16 at 05:45; Stop 06/22/16 at 05:46 Diphenoxylate HCl/ Atropine (Lomotil Tab) 1 tab Q6H PRN PO LOOSE STOOL Last administered on 06/20/16t 21:03; Start 06/20/16 at 07:45 A/P Assessment and Plan A/P (1) AML (acute myeloid leukemia) Plan: As shown on bone marrow biopsy. Medical oncology consulted and following. Status post port placement 05/23. Chemotherapy started 05/27. Hemoglobin/ PLT being monitored; transfuse with PRBC/platelet as needed per oncology. Continue with neutropenic precautions. Patient is status post bone marrow biopsy on 06/13, pathology with negative for AML. hematology/oncology following. (2) Neutropenic fever- now fever has resolved. Plan: UA positive for Klebsiella pneumonia. Patient's C. difficile negative. ID consulted. Antibiotics, antifungals and antivirals as per ID recommendations. will consider neupogen if leukopenia persists. (3) Pancytopenia Plan: Pancytopenia likely secondary to chemotherapy given for AML treatment. Continue to monitor CBC and follow up oncology recommendations. (4) UTI (urinary tract infection) Plan: Continue antibiotics as above and as per ID recommendations. Urine culture grew Klebsiella pneumonia. (5) GI bleed Plan: GI bleed now resolved. Patient had some episodes of rectal bleeding. s/p EGD and colonoscopy with gastritis and rectal ulcer. (6) Anxiety Plan: Continue Valium as needed. seems stable. (7) Diarrhea repeat C diff negative. lomotil as needed. (8) Dizziness Plan: CT head ordered by oncology 06/10 - No acute disease. Dizziness has now resolved. DVT prophylaxis: SCDs, no chemoprophylaxis given thrombocytopenia. Discharge Planning when cleared by oncology. Elma Feliz MD Jun 21, 2016 08:22
[2016-06-21] MEDS: SODIUM CHLORIDE 0.9% FLUSH 5 ML FLUSH IV SCH ×2 (09:27→20:44)
[2016-06-21] MEDS: SODIUM CHLORIDE 0.9% FLUSH 5 ML FLUSH IVF SCH (09:29)
[2016-06-21] MEDS: PANTOPRAZOLE SOD 20 MG DELAYED RELEASE TAB PO SCH (09:30)
[2016-06-21] MEDS: ACYCLOVIR 200 MG CAP PO SCH (09:30)
[2016-06-21] MEDS: FUROSEMIDE 20 MG TAB PO SCH (09:30)
[2016-06-21] MEDS: FAMOTIDINE 20 MG TAB PO SCH ×2 (09:30→20:40)
[2016-06-21] MEDS: DIAZEPAM 10 MG TAB PO SCH ×2 (09:30→20:40)
[2016-06-21] MEDS: GABAPENTIN 300 MG CAP PO SCH ×3 (09:30→17:06)
[2016-06-21] MEDS: POTASSIUM CHLORIDE 10 MEQ CAP PO SCH (09:30)
[2016-06-21] MEDS: DIPHENOXYLATE/ATROPINE 2.5 MG/0.025 MG TAB PO PRN (09:33)
[2016-06-21 11:08] LABS: BANDS 1 % (0-6); BLASTS 1 % (0-0); POLYS (SEG NEUTROPHILS) 3 % (16-70); WBC DIFF SAMPLE 100
[2016-06-21 11:09] LABS: PLATELET ESTIMATE SMEAR LOW (NORMAL); PLATELET MORPHOLOGY ENLARGED (NORMAL); SCAN/DIFF FINAL DIFF MANUAL
[2016-06-21 11:44] VITALS: BP 100/54; PULSE 97; RESP 18; TEMP 98.3; O2SAT 100
[2016-06-21] MEDS: MICAFUNGIN INJ 100 MG in SODIUM CHLORIDE 0.9% INJ 100 ML IV SCH (15:05)
[2016-06-21 16:00] VITALS: BP 144/66; PULSE 78; RESP 18; TEMP 98.1; O2SAT 95
[2016-06-21 20:00] VITALS: BP 121/56; PULSE 82; RESP 17; TEMP 98.1; O2SAT 92
[2016-06-22] VITALS (8 sets, daily range): BP systolic 105–119; BP diastolic 51–67; PULSE 78–107; RESP 17–20; TEMP 97.8–99.1; O2SAT 91–98
[2016-06-22] MEDS: LACTATED RINGER'S 1000 ML IV SCH (01:15)
[2016-06-22] MEDS: CARISOPRODOL 350 MG TAB PO PRN (01:21)
[2016-06-22] MEDS: CEFEPIME INJ 2,000 MG in SODIUM CHLORIDE 0.9% INJ 100 ML IV SCH ×3 (01:25→17:35)
[2016-06-22] MEDS ORDERED: PHARMACY ORDERED LAB XX ONE (05:45)
[2016-06-22] MEDS: VANCOMYCIN INJ 1,250 MG in SODIUM CHLOR 0.9% 250 ML INJ 250 ML IV SCH (06:13)
[2016-06-22] MEDS: LEVOTHYROXINE SODIUM 25 MCG TAB PO SCH (06:16)
[2016-06-22] MEDS: POTASSIUM PHOSPHATE/SODIUM PHOSPHATE 250 MG TAB PO SCH ×3 (06:16→17:35)
--- NOTE | 2016-06-22 08:16 | HHI.PR ---
Subjective Remarks resting comfortably. no fever and didn't have diarrhea last night. no new complaints. Objective Vitals Vital Signs Date Time Temp Pulse Resp B/P Pulse Ox O2 Delivery O2 Flow Rate FiO2 06/22/16 05:30 98.5 107 18 112/52 94 06/22/16 03:33 19 06/22/16 00:00 98.0 80 17 112/52 91 06/21/16 22:49 20 06/21/16 20:00 98.1 82 17 121/56 92 06/21/16 16:00 98.1 78 18 144/66 95 06/21/16 11:44 98.3 97 18 100/54 100 I/O 06/21/16 06/21/16 06/21/16 06/22/16 06/22/16 06/22/16 07:00 15:00 23:00 07:00 15:00 23:00 Intake Total 1070 ml 840 ml 1110 ml 720 ml Balance 1070 ml 840 ml 1110 ml 720 ml Intake Oral 720 ml 840 ml 840 ml 720 ml IV Total 350 ml 270 ml # Voids 3 2 1 Result Diagram: 06/21/16 0540 06/20/16 0535 Imaging Last Impressions Bone Biopsy CT 06/13/16 0000 Signed Impressions: Service Date/Time: Monday, June 13, 2016 08:35 - CONCLUSION: 1. Uncomplicated CT guided bone marrow aspirate. 2. Uncomplicated CT guided bone marrow biopsy. Juan Carlos Cherry MD FACR Head CT 06/10/16 0000 Signed Impressions: Service Date/Time: Friday, June 10, 2016 14:56 - CONCLUSION: Stable noncontrast head CT. No acute intracranial abnormality is identified. Bravo Jackman MD Abdomen/Pelvis CT 06/05/16 0000 Signed Impressions: Service Date/Time: May 22:13 - CONCLUSION: Minimal fluid in the pelvis, otherwise unremarkable. Cynthia Guardado MD Chest X-Ray 06/04/16 0000 Signed Impressions: Service Date/Time: Saturday, June 04, 2016 21:23 - CONCLUSION: No acute disease. Kilo Cotto MD Lumbar Puncture Fluoroscopy 05/23/16 0000 Signed Impressions: Service Date/Time: Monday, May 23, 2016 14:16 - CONCLUSION: Uncomplicated fluoroscopically guided lumbar puncture. Bubba Cherry MD Catheter Placement X-Ray 05/23/16 0000 Signed Impressions: Service Date/Time: Monday, May 23, 2016 14:16 - CONCLUSION: Uncomplicated Donaldson catheter placement as above. Bubba Cherry MD Chest CT 05/17/16 0000 Signed Impressions: Service Date/Time: Tuesday, May 17, 2016 15:14 - CONCLUSION: 1. 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 There are trace to very small bilateral pleural effusions and mild cardiomegaly noted. 2. No lobar consolidation. 3. Upper limits of normal to mildly enlarged mediastinal and bilateral hilar lymph nodes, nonspecific but presumably reactive. Bravo Mendez MD Objective Remarks GENERAL: This is a well-nourished, well-developed patient, in no apparent distress. CARDIOVASCULAR: Regular rate and regular rhythm without murmurs, gallops, or rubs. RESPIRATORY: Clear to auscultation. Breath sounds equal bilaterally. No wheezes , rales, or rhonchi. GASTROINTESTINAL: Abdomen soft, non-tender, nondistended. Normal, active bowel sounds MUSCULOSKELETAL: Extremities without clubbing, cyanosis, or edema. NEURO: Alert & Oriented x4 to person, place, time, situation. Moves all ext x4 Procedures EGD/ colonoscopy Bone marrow biopsy Medications and IVs Current Medications Sodium Chloride (NS 1000 ml Inj) 1,000 ml @ 1,000 mls/hr Q1H IV Last administered on 05/16/16at 15:22; Start 05/16/16 at 14:49; Stop 05/16/16 at 15 :48; Status DC IV Flush (NS Flush) 2 ml UNSCH PRN IVF FLUSH AFTER USING IV ACCESS Last administered on 05/16/16at 16:58; Start 05/16/16 at 15:00; Stop 05/16/16 at 17 :36; Status DC Pantoprazole Sodium (Protonix Inj) 40 mg ONCE ONCE IV PUSH Last administered on 05/16/16at 16:57; Start 05/16/16 at 16:45; Stop 05/16/16 at 16:46; Status DC Carisoprodol (Soma) 350 mg TID PRN PO PAIN Last administered on 06/22/16 01:21 ; Start 05/16/16 at 17:30 Furosemide (Lasix) 20 mg DAILY PO Last administered on 06/21/16 09:30; Start 05/17/16 at 09:00 Gabapentin (Neurontin) 300 mg TID PO Last administered on 06/21/16 17:06; Start 05/16/16 at 18:00 Levothyroxine Sodium (Synthroid) 25 mcg DAILY@06 PO Last administered on 06:16; Start 05/17/16 at 06:00 Potassium Chloride (KCl) 10 meq DAILY PO Last administered on 06/21/16 09:30; Start 05/17/16 at 09:00 Famotidine 20 mg 20 mg BID PO Last administered on 06/21/16 20:40; Start 05/16 at 21:00 Sodium Chloride (NS 1000 ml Inj) 1,000 ml @ 75 mls/hr [id number] IV Last administered on 05/16/16at 17:59; Start 05/16/16 at 17:31; Stop 05/17/16 at 06 :50; Status DC IV Flush (NS Flush) 2 ml UNSCH PRN IV FLUSH AFTER USING IV ACCESS; Start 05/16 at 17:45 IV Flush (NS Flush) 2 ml BID IV Last administered on 06/21/16 20:44; Start at 21:00 Ondansetron HCl (Zofran Inj) 4 mg Q6H PRN IV NAUSEA Last administered on 21:06; Start 05/16/16 at 17:45 Pantoprazole Sodium (Protonix Inj) 40 mg Q24H IV PUSH Last administered on 08:42; Start 05/17/16 at 09:00; Stop 05/21/16 at 14:52; Status DC Influenza Virus Vaccine (Flu (Quadrivalent) Vaccine Inj) 0.5 ml ONCE ONCE IM Last administered on 05/17/16at 11:51; Start 05/17/16 at 10:00; Stop 05/17/16 at 10:01; Status DC Acetaminophen (Tylenol) 650 mg Q6HR PRN PO headache Last administered on 12:08; Start 05/17/16 at 06:30 Diatrizoate Meglum/ Diatrizoate Sod (Md Arita Liq) 18 ml ONCE ONCE PO Last administered on 05/17/16at 11:49; Start 05/17/16 at 11:15; Stop 05/17/16 at 11:16; Status DC Iohexol (Omnipaque 350 Inj) 75 ml STK-MED ONCE IV Last administered on at 15:29; Start 05/17/16 at 15:29; Stop 05/17/16 at 15:30; Status DC Diazepam (Valium) 10 mg Q12HR PO Last administered on 05/24/16 08:12; Start 05/18/16 at 12:00; Stop 05/24/16 at 13:36; Status DC Polyethylene Glycol/ Electrolytes 4000 ml 4,000 ml ONCE ONCE PO Last administered on 05/19/16 16:34; Start 05/19/16 at 16:00; Stop 05/19/16 at 16:01; Status DC Lactated Ringer's (Lr 1000 ml Inj) 1,000 ml @ 30 mls/hr Q24H IV ; Start at 01:15 Acetaminophen (Tylenol) 650 mg ONCE ONCE PO Last administered on 05/20/16 05: 00; Start 05/20/16 at 05:00; Stop 05/20/16 at 05:03; Status DC Lidocaine/ Epinephrine 20 ml 20 ml STK-MED ONCE .ROUTE Last administered on 05/20 08:36; Start 05/20/16 at 08:36; Stop 05/20/16 at 08:49; Status DC Sodium Bicarbonate (Sodium Bicarbonate 8.4% Inj) 50 ml @ As Directed STK-MED ONCE .ROUTE Last administered on 05/20/16 08:36; Start 05/20/16 at 08:36; Stop 05/20/16 at 08:50; Status DC Fentanyl Citrate (fentaNYL INJ) 250 mcg STK-MED ONCE .ROUTE Last administered on 05/20/16 08:43; Start 05/20/16 at 08:43; Stop 05/20/16 at 08:51; Status DC Midazolam HCl (Versed Inj) 5 mg STK-MED ONCE .ROUTE Last administered on 08:43; Start 05/20/16 at 08:43; Stop 05/20/16 at 08:51; Status DC Oxycodone/ Acetaminophen (Percocet 5-325 Mg) 1 tab Q4H PRN PO pain 1-5 Last administered on 06/14/16 11:36; Start 05/20/16 at 10:00 Propofol (Diprivan 200 Mg/20 ml Inj) 310 mg STK-MED ONCE IV ; Start 05/20/16 at 12:55; Stop 05/20/16 at 13:30; Status DC Mesalamine (Canasa Supp) 1,000 mg HS RECTAL ; Start 05/20/16 at 21:00; Status Hold Pantoprazole Sodium (Protonix) 40 mg DAILY PO Last administered on 06/17/16 08 :07; Start 05/22/16 at 09:00; Stop 06/17/16 at 08:57; Status DC Oxycodone HCl (Roxicodone) 10 mg Q4H PRN PO pain 6-10 Last administered on 06:07; Start 05/21/16 at 16:00 Acetaminophen/ Butalbital/ Caffeine 1 tab 1 tab ONCE ONCE PO Last administered on 05/21/16 17:42; Start 05/21/16 at 16:00; Stop 05/21/16 at 16:04; Status DC Vancomycin HCl 1000 mg/Sodium Chloride 250 ml @ 250 mls/hr [employer]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 Last administered on 05/23/16 13:00; Start 05/22/16 at 16:45; Stop 05/26/16 at 16:44; Status DC Cefazolin Sodium/ Dextrose (Ancef 2 Gm Premix) 50 ml @ 100 mls/hr [employer]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 ; Start 05/22/16 at 18:00; Stop 05/26/16 at 17:59; Status DC Bisacodyl (Dulcolax Supp) 10 mg DAILY PRN IA CONSTIPATION Last administered on 05/22/16 22:31; Start 05/22/16 at 22:15; Stop 05/24/16 at 10:23; Status DC Sodium Biphosphate/ Sodium Phosphate (Fleets Enema (Adult)) 133 ml ONCE PRN IA constipation; Start 05/22/16 at 22:15; Stop 05/23/16 at 22:14; Status Cancel Midazolam HCl (Versed Inj) 5 mg STK-MED ONCE .ROUTE Last administered on 13:44; Start 05/23/16 at 13:44; Stop 05/23/16 at 13:45; Status DC Fentanyl Citrate (fentaNYL INJ) 250 mcg STK-MED ONCE .ROUTE Last administered on 05/23/16 13:44; Start 05/23/16 at 13:44; Stop 05/23/16 at 13:45; Status DC Heparin Sodium (Porcine) (*HEPARIN CENTRAL FLUSH PERIprocedural ONLY) 500 units STK-MED ONCE .ROUTE Last administered on 05/23/16 15:20; Start 05/23/16 at 14:30 ; Stop 05/23/16 at 14:31; Status DC Lidocaine/ Epinephrine (Xylocaine-Epi 1%-1:100,000 Inj) 20 ml STK-MED ONCE .ROUTE Last administered on 05/23/16 15:02; Start 05/23/16 at 14:30; Stop at 14:31; Status DC Midazolam HCl (Versed Inj) 5 mg STK-MED ONCE .ROUTE Last administered on 15:10; Start 05/23/16 at 15:10; Stop 05/23/16 at 15:11; Status DC Fentanyl Citrate 250 mcg 250 mcg STK-MED ONCE .ROUTE Last administered on 15:10; Start 05/23/16 at 15:10; Stop 05/23/16 at 15:11; Status DC Ceftriaxone Sodium/Sodium Chloride (Rocephin Inj/NS Inj) 100 ml @ 200 mls/hr Q24H IV Last administered on 05/30/16 17:19; Start 05/23/16 at 16:00; Stop at 09:52; Status DC IV Flush (NS Flush) DAILY IVF Last administered on 06/21/16 09:29; Start at 09:00 Heparin Sodium (Porcine) (Heparin Central Flush) DAILY IVF Last administered on 06/21/16 09:29; Start 05/24/16 at 09:00 IV Flush (NS Flush) UNSCH PRN IVF SEE PROTOCOL Last administered on 06/16/16 21:15; Start 05/23/16 at 15:30 Heparin Sodium (Porcine) (Heparin Central Flush) UNSCH PRN IVF SEE PROTOCOL Last administered on 06/02/16 04:01; Start 05/23/16 at 15:30 Docusate Sodium (Colace) 100 mg BID PO Last administered on 06/05/16 07:58; Start 05/24/16 at 11:00; Status Hold Lactulose (Lactulose Liq) 30 ml ONCE ONCE PO Last administered on 05/24/16 12: 15; Start 05/24/16 at 10:30; Stop 05/24/16 at 10:31; Status DC Lorazepam (Ativan) 1 mg Q4HR PRN PO anxiety Last administered on 05/24/16 22:38 ; Start 05/24/16 at 13:45; Stop 05/25/16 at 09:00; Status DC Lorazepam (Ativan) 1 mg ONCE ONCE PO Last administered on 05/24/16 14:27; Start 05/24/16 at 13:45; Stop 05/24/16 at 13:46; Status DC Lorazepam (Ativan) 2 mg Q6H PRN PO anxiety Last administered on 05/27/16 07:35 ; Start 05/25/16 at 08:59; Stop 05/28/16 at 08:03; Status DC Lactulose (Lactulose Liq) 30 ml QID PO Last administered on 05/25/16 20:06; Start 05/25/16 at 13:00; Stop 05/25/16 at 21:01; Status DC Polyethylene Glycol (Miralax) 17 gm DAILY PO Last administered on 06/04/16 08: 27; Start 05/25/16 at 14:30; Stop 06/15/16 at 10:54; Status DC Lactic Acid (Lac-Hydrin 12% Lotion) 1 applic BID PRN TOPICAL irritation; Start 05/25/16 at 14:30 Sumatriptan Succinate 25 mg 25 mg ONCE ONCE PO Last administered on 05/25/16 20:06; Start 05/25/16 at 19:45; Stop 05/25/16 at 19:47; Status DC Sodium Chloride (NS 1000 ml Inj) 1,000 ml @ 100 mls/hr Q10H IV Last administered on 06/15/16 10:35; Start 05/26/16 at 09:30; Stop 06/15/16 at 10:54 ; Status DC Allopurinol (Zyloprim) 300 mg DAILY PO Last administered on 06/15/16 08:04; Start 05/26/16 at 09:30; Stop 06/15/16 at 10:19; Status DC Morphine Sulfate 2 mg 2 mg ONCE ONCE IV PUSH Last administered on 05/26/16 10: 46; Start 05/26/16 at 10:30; Stop 05/26/16 at 10:31; Status DC Idarubicin HCl 22.6 mg/Sodium Chloride 122.6 ml @ 490.4 mls/ hr Q24H IV ; Start 05/26/16 at 16:00; Stop 05/26/16 at 17:07; Status DC Granisetron HCl 1 mg/Dexamethasone Sodium Phosphate 20 mg/Sodium Chloride 56 ml @ 336 mls/hr Q24H IV ; Start 05/26/16 at 15:30; Stop 05/26/16 at 17:09; Status DC Cytarabine 189 mg/ Sodium Chloride 500 ml @ 20.833 mls/ hr Q24H IV ; Start 05/26 at 17:00; Stop 05/26/16 at 17:08; Status DC Idarubicin HCl 22.6 mg/Sodium Chloride 122.6 ml @ 490.4 mls/ hr Q24H IV Last administered on 05/29/16 09:00; Start 05/27/16 at 09:00; Stop 05/29/16 at 09:14 ; Status DC Cytarabine 189 mg/ Sodium Chloride 500 ml @ 20.833 mls/ hr Q24H IV Last administered on 06/03/16 04:14; Start 05/27/16 at 10:00; Stop 06/03/16 at 09:59 ; Status DC Granisetron HCl/ Dexamethasone Sodium Phosphate/ Sodium Chloride (Kytril Inj/ Decadron Inj/NS Inj) 56 ml @ 336 mls/hr Q24H IV Last administered on 22:22; Start 05/27/16 at 08:30; Stop 06/02/16 at 08:39; Status DC Morphine Sulfate (Morphine Inj) 2 mg Q2HR PRN IV PUSH SEVERE BREAKTHROUGH PAIN Last administered on 06/21/16 17:11; Start 05/27/16 at 08:45 Lactulose (Lactulose Liq) 30 ml DAILY PO Last administered on 06/05/16 07:57; Start 05/27/16 at 09:00; Stop 06/15/16 at 10:54; Status DC Diazepam (Valium) 10 mg Q12HR PO Last administered on 06/21/16 20:40; Start 04/03 at 09:00 Temazepam 15 mg 15 mg HS PRN PO SLEEP Last administered on 06/01/16 22:23; Start 05/28/16 at 08:00 Sodium Chloride (NS 250 ml Inj) 250 ml @ 15 mls/hr ONCE ONCE IV Last administered on 05/29/16 14:07; Start 05/29/16 at 08:00; Stop 05/30/16 at 00:39 ; Status DC Acetaminophen (Tylenol) 650 mg Q4H PRN PO SEE LABEL COMMENTS; Start 05/29/16 at 08:00; Stop 05/29/16 at 12:01; Status DC Diphenhydramine HCl (Benadryl) 25 mg Q4H PRN PO SEE LABEL COMMENTS; Start 05/29 at 08:00; Stop 05/29/16 at 12:01; Status DC Diphenhydramine HCl (Benadryl) 25 mg Q4H PRN PO SEE LABEL COMMENTS Last administered on 05/29/16 12:54; Start 05/29/16 at 13:00; Stop 05/29/16 at 17:01 ; Status DC Acetaminophen (Tylenol) 650 mg Q4H PRN PO SEE LABEL COMMENTS Last administered on 05/29/16 12:54; Start 05/29/16 at 13:00; Stop 05/29/16 at 17:01; Status DC Diphenhydramine HCl (Benadryl) 25 mg Q4H PRN PO SEE LABEL COMMENTS Last administered on 05/29/16 21:21; Start 05/29/16 at 21:15; Stop 05/30/16 at 01:16 ; Status DC Multi-Ingredient Mouthwash/Gargle (Magic Mouthwash Adult Liq) 5 ml QID SWISH- SWAL Last administered on 06/11/16 08:45; Start 06/03/16 at 09:00; Stop at 12:03; Status DC Acyclovir (Zovirax) 400 mg Q8HR PO Last administered on 06/16/16 05:44; Start 06/03/16 at 14:00; Stop 06/16/16 at 13:56; Status DC Fluconazole (Diflucan) 200 mg DAILY PO Last administered on 06/10/16 09:22; Start 06/03/16 at 09:00; Stop 06/10/16 at 15:16; Status DC Levofloxacin 250 mg 250 mg DAILY@11 PO Last administered on 06/04/16 11:27; Start 06/03/16 at 11:00; Stop 06/05/16 at 07:46; Status DC Sodium Chloride (NS 250 ml Inj) 250 ml @ 15 mls/hr ONCE ONCE IV ; Start at 09:00; Stop 06/05/16 at 01:39; Status DC Acetaminophen (Tylenol) 650 mg Q4H PRN PO SEE LABEL COMMENTS Last administered on 06/04/16 11:27; Start 06/04/16 at 09:00; Stop 06/04/16 at 13:01; Status DC Diphenhydramine HCl 25 mg 25 mg Q4H PRN PO SEE LABEL COMMENTS Last administered on 06/04/16 11:27; Start 06/04/16 at 09:00; Stop 06/04/16 at 13:01 ; Status DC Cefepime HCl/ Sodium Chloride (Maxipime Inj/NS Inj) 100 ml @ 200 mls/hr Q12H IV Last administered on 06/05/16 10:41; Start 06/04/16 at 22:00; Stop at 13:37; Status DC Diatrizoate Meglum/ Diatrizoate Sod 18 ml 18 ml ONCE ONCE PO Last administered on 06/05/16 13:19; Start 06/05/16 at 13:00; Stop 06/05/16 at 13:01 ; Status DC Cefepime HCl/ Sodium Chloride (Maxipime Inj/NS Inj) 100 ml @ 200 mls/hr Q8H IV Last administered on 06/22/16 01:25; Start 06/05/16 at 18:00 Azithromycin 500 mg 500 mg DAILY PO Last administered on 06/10/16 09:21; Start 06/05/16 at 14:00; Stop 06/10/16 at 15:16; Status DC Vancomycin HCl 1000 mg/Sodium Chloride 250 ml @ 250 mls/hr ONCE ONCE IV Last administered on 06/05/16 14:44; Start 06/05/16 at 14:00; Stop 06/05/16 at 14:59 ; Status DC Pharmacy Profile Note (Vancomycin Consult Pharmacy) 0 ml @ 0 mls/hr UNSCH OTHER ; Start 06/05/16 at 13:45 Metronidazole 500 mg 500 mg Q8HR PO Last administered on 06/18/16 13:42; Start 06/05/16 at 14:00; Stop 06/18/16 at 14:14; Status DC Vancomycin HCl/ Sodium Chloride (Vancomycin Inj/ NS 250 ml Inj) 262.5 ml @ 250 mls/hr Q12H IV Last administered on 06/10/16 01:03; Start 06/06/16 at 00:00; Stop 06/10/16 at 15:30; Status DC Miscellaneous Information SPECIFIC LAB TO BE DRAWN:VANCOMYCIN TROUGH DATE TO... ONCE ONCE XX Last administered on 06/07/16 11:45; Start 06/07/16 at 11:45; Stop 06/07/16 at 11:46; Status DC Iohexol (Omnipaque 350 Inj) 100 ml STK-MED ONCE IV Last administered on 22:20; Start 06/05/16 at 22:20; Stop 06/05/16 at 22:21; Status DC Patient Own Medication PT OWN MED: HYDROMORPHONE 40 MG/... UNSCH OTHER ; Start 06/06/16 at 11:00 Sodium Chloride (NS 250 ml Inj) 250 ml @ 15 mls/hr ONCE ONCE IV Last administered on 06/06/16 16:45; Start 06/06/16 at 12:45; Stop 06/07/16 at 05:24 ; Status DC Acetaminophen (Tylenol) 650 mg Q4H PRN PO SEE LABEL COMMENTS Last administered on 06/06/16 16:19; Start 06/06/16 at 12:45; Stop 06/06/16 at 16:46; Status DC Diphenhydramine HCl (Benadryl) 25 mg Q4H PRN PO SEE LABEL COMMENTS Last administered on 06/06/16 16:18; Start 06/06/16 at 12:45; Stop 06/06/16 at 16:46 ; Status DC Miscellaneous Information SPECIFIC LAB TO BE VIKRAM... ONCE ONCE XX Last administered on 06/08/16 13:45; Start 06/08/16 at 11:45; Stop 06/08/16 at 11:46 ; Status DC Sodium Chloride (NS 250 ml Inj) 250 ml @ 15 mls/hr ONCE ONCE IV Last administered on 06/08/16 13:00; Start 06/08/16 at 13:00; Stop 06/09/16 at 05:39 ; Status DC Diphenhydramine HCl 25 mg 25 mg Q4H PRN PO SEE LABEL COMMENTS; Start 06/08/16 at 13:00; Stop 06/08/16 at 17:01; Status DC Sodium Chloride (NS 250 ml Inj) 250 ml @ 15 mls/hr ONCE ONCE IV Last administered on 06/09/16 11:51; Start 06/09/16 at 07:30; Stop 06/10/16 at 00:09 ; Status DC Acetaminophen (Tylenol) 650 mg Q4H PRN PO SEE LABEL COMMENTS; Start 06/09/16 at 07:30; Stop 06/09/16 at 11:31; Status DC Diphenhydramine HCl (Benadryl) 25 mg Q4H PRN PO SEE LABEL COMMENTS; Start 06/09 at 07:30; Stop 06/09/16 at 11:31; Status DC Loperamide HCl 2 mg 2 mg UNSCH PRN PO DIARRHEA Last administered on 06/15/16 08:03; Start 06/09/16 at 11:15; Stop 06/15/16 at 10:54; Status DC Magnesium Sulfate/ Dextrose 100 ml @ 100 mls/hr Q1H IV Last administered on 15:35; Start 06/10/16 at 09:15; Stop 06/10/16 at 11:14; Status DC Sodium Chloride (NS 250 ml Inj) 250 ml @ 15 mls/hr ONCE ONCE IV Last administered on 06/10/16 12:26; Start 06/10/16 at 09:30; Stop 06/11/16 at 02:09 ; Status DC Acetaminophen (Tylenol) 650 mg Q4H PRN PO SEE LABEL COMMENTS Last administered on 06/10/16 10:57; Start 06/10/16 at 09:30; Stop 06/10/16 at 13:31; Status DC Diphenhydramine HCl 25 mg 25 mg Q4H PRN PO SEE LABEL COMMENTS Last administered on 06/10/16 10:57; Start 06/10/16 at 09:30; Stop 06/10/16 at 13:31 ; Status DC Micafungin Sodium 100 mg/Sodium Chloride 100 ml @ 100 mls/hr Q24H IV Last administered on 06/21/16 15:05; Start 06/10/16 at 16:00 Vancomycin HCl/ Sodium Chloride (Vancomycin Inj/ NS 500 ml Inj) 515 ml @ 250 mls/hr Q12H IV Last administered on 06/12/16 05:32; Start 06/10/16 at 18:00; Stop 06/12/16 at 09:22; Status DC Miscellaneous Information SPECIFIC LAB TO BE DRAWN:VANCOMYCIN TROUGH DATE TO... ONCE ONCE XX Last administered on 06/12/16 05:33; Start 06/12/16 at 05:45; Stop 06/12/16 at 05:46; Status DC Vancomycin HCl/ Sodium Chloride (Vancomycin Inj/ NS 500 ml Inj) 517.5 ml @ 250 mls/hr Q12H IV Last administered on 06/14/16 05:14; Start 06/12/16 at 18:00; Stop 06/14/16 at 10:10; Status DC Miscellaneous Information SPECIFIC LAB TO BE DRAWN:VANCOMYCIN TROUGH DATE TO... ONCE ONCE XX Last administered on 06/14/16 05:15; Start 06/14/16 at 05:45; Stop 06/14/16 at 05:46; Status DC Potassium Chloride (KCl) 30 meq ONCE ONCE PO Last administered on 06/12/16 13 :21; Start 06/12/16 at 09:30; Stop 06/12/16 at 09:37; Status DC Potassium Phos/ Sodium Phos (K-Phos Neutral) 250 mg Q6HR PO Last administered on 06/22/16 06:16; Start 06/12/16 at 12:00 Lidocaine/ Epinephrine (Xylocaine-Epi 1%-1:100,000 Inj) 20 ml STK-MED ONCE .ROUTE Last administered on 06/13/16 07:27; Start 06/13/16 at 07:27; Stop at 07:28; Status DC Fentanyl Citrate (fentaNYL INJ) 250 mcg STK-MED ONCE .ROUTE Last administered on 06/13/16 07:51; Start 06/13/16 at 07:51; Stop 06/13/16 at 07:52; Status DC Midazolam HCl (Versed Inj) 5 mg STK-MED ONCE .ROUTE Last administered on 07:51; Start 06/13/16 at 07:51; Stop 06/13/16 at 07:52; Status DC Thrombin (Thrombin Top Soln) 5,000 units STK-MED ONCE .ROUTE Last administered on 06/13/16 08:41; Start 06/13/16 at 08:41; Stop 06/13/16 at 08:42; Status DC Hydromorphone HCl (Dilaudid Pf Inj) 2 mg STK-MED ONCE .ROUTE Last administered on 06/13/16 08:48; Start 06/13/16 at 08:48; Stop 06/13/16 at 08:49; Status DC Gelatin 1 foam 1 foam STK-MED ONCE .XX Last administered on 06/13/16 09:33; Start 06/13/16 at 09:33; Stop 06/13/16 at 09:34; Status DC Sodium Chloride (NS 250 ml Inj) 250 ml @ 15 mls/hr ONCE ONCE IV Last administered on 06/13/16 12:48; Start 06/13/16 at 10:00; Stop 06/14/16 at 02:39 ; Status DC Acetaminophen (Tylenol) 650 mg Q4H PRN PO SEE LABEL COMMENTS; Start 06/13/16 at 10:00; Stop 06/13/16 at 14:01; Status DC Diphenhydramine HCl 25 mg 25 mg Q4H PRN PO SEE LABEL COMMENTS Last administered on 06/13/16 11:34; Start 06/13/16 at 10:00; Stop 06/13/16 at 14:01 ; Status DC Sodium Chloride (NS 250 ml Inj) 250 ml @ 15 mls/hr ONCE ONCE IV Last administered on 06/13/16 12:48; Start 06/13/16 at 12:00; Stop 06/14/16 at 04:39 ; Status DC Acetaminophen (Tylenol) 650 mg Q4H PRN PO SEE LABEL COMMENTS; Start 06/13/16 at 12:00; Stop 06/13/16 at 16:01; Status DC Diphenhydramine HCl (Benadryl) 25 mg Q4H PRN PO SEE LABEL COMMENTS; Start 06/13 at 12:00; Stop 06/13/16 at 16:01; Status DC Diphenhydramine HCl (Benadryl) 25 mg ONCE ONCE PO Last administered on 20:42; Start 06/13/16 at 21:00; Stop 06/13/16 at 21:01; Status DC Potassium Chloride 30 meq 30 meq ONCE ONCE PO Last administered on 06/14/16 10:40; Start 06/14/16 at 09:15; Stop 06/14/16 at 09:16; Status DC Vancomycin HCl/ Sodium Chloride (Vancomycin Inj/ NS 500 ml Inj) 520 ml @ 250 mls/hr Q12H IV Last administered on 06/16/16 05:44; Start 06/14/16 at 18:00; Stop 06/16/16 at 11:21; Status DC Miscellaneous Information SPECIFIC LAB TO BE VIKRAM... ONCE ONCE XX Last administered on 06/16/16 05:44; Start 06/16/16 at 05:45; Stop 06/16/16 at 05:46 ; Status DC Diphenoxylate HCl/ Atropine 1 tab 1 tab Q6H PRN PO diarrhea Last administered on 06/15/16 13:17; Start 06/15/16 at 11:00; Stop 06/16/16 at 14:33; Status DC Sodium Chloride (NS 250 ml Inj) 250 ml @ 15 mls/hr ONCE ONCE IV Last administered on 06/16/16 12:27; Start 06/16/16 at 08:30; Stop 06/17/16 at 01:09 ; Status DC Acetaminophen (Tylenol) 650 mg Q4H PRN PO SEE LABEL COMMENTS; Start 06/16/16 at 08:30; Stop 06/16/16 at 12:31; Status DC Diphenhydramine HCl (Benadryl) 25 mg Q4H PRN PO SEE LABEL COMMENTS Last administered on 06/16/16 12:08; Start 06/16/16 at 08:30; Stop 06/16/16 at 12:31 ; Status DC Simethicone 80 mg 80 mg PCHS PRN CHEW GAS RETENTION Last administered on 12:34; Start 06/16/16 at 09:15; Stop 06/16/16 at 14:10; Status DC Vancomycin HCl/ Sodium Chloride (Vancomycin Inj/ NS 500 ml Inj) 517.5 ml @ 250 mls/hr Q12H IV Last administered on 06/19/16 04:55; Start 06/16/16 at 18:00; Stop 06/19/16 at 10:13; Status DC Miscellaneous Information SPECIFIC LAB TO BE VIKRAM... ONCE ONCE XX Last administered on 06/19/16 05:15; Start 06/19/16 at 05:45; Stop 06/19/16 at 05:46; Status DC Acyclovir (Zovirax) 400 mg DAILY PO Last administered on 06/21/16 09:30; Start 06/17/16 at 09:00 Diphenhydramine HCl (Benadryl) 25 mg NOW ONCE PO ; Start 06/16/16 at 14:15; Stop 06/16/16 at 14:16; Status DC Diphenhydramine HCl 25 mg 25 mg Q8H PRN PO ITCHING; Start 06/16/16 at 14:15 Sodium Chloride (NS 1000 ml Inj) 1,000 ml @ 84 mls/hr [id number] IV Last administered on 06/17/16 03:09; Start 06/16/16 at 14:30; Stop 06/17/16 at 08:52 ; Status DC Pantoprazole Sodium (Protonix) 20 mg DAILY PO Last administered on 06/21/16 09: 30; Start 06/17/16 at 09:00 Diphenoxylate HCl/ Atropine 1 tab 1 tab NOW ONCE PO Last administered on 16:24; Start 06/17/16 at 15:45; Stop 06/17/16 at 15:46; Status DC Vancomycin HCl/ Sodium Chloride (Vancomycin Inj/ NS 250 ml Inj) 262.5 ml @ 250 mls/hr Q12H IV Last administered on 06/22/16 06:13; Start 06/20/16 at 06:00 Miscellaneous Information SPECIFIC LAB TO BE DRAWN:VANCOMYCIN TROUGH DATE TO... ONCE ONCE XX Last administered on 06/22/16 06:11; Start 06/22/16 at 05:45; Stop 06/22/16 at 05:46; Status DC Diphenoxylate HCl/ Atropine (Lomotil Tab) 1 tab Q6H PRN PO LOOSE STOOL Last administered on 06/21/16 09:33; Start 06/20/16 at 07:45 A/P Assessment and Plan A/P (1) AML (acute myeloid leukemia) Plan: As shown on bone marrow biopsy. Medical oncology consulted and following. Status post port placement 05/23. Chemotherapy started 05/27. Hemoglobin/ PLT being monitored; transfuse with PRBC/platelet as needed per oncology. Continue with neutropenic precautions. Patient is status post bone marrow biopsy on 06/13, pathology with negative for AML. hematology/oncology following. (2) Neutropenic fever- now fever has resolved. Plan: UA positive for Klebsiella pneumonia. Patient's C. difficile negative. ID consulted. Antibiotics, antifungals and antivirals as per ID recommendations. will consider neupogen if leukopenia persists. (3) Pancytopenia Plan: Pancytopenia likely secondary to chemotherapy given for AML treatment. Continue to monitor CBC and follow up oncology recommendations. (4) UTI (urinary tract infection) Plan: Continue antibiotics as above and as per ID recommendations. Urine culture grew Klebsiella pneumonia. (5) GI bleed Plan: GI bleed now resolved. Patient had some episodes of rectal bleeding. s/p EGD and colonoscopy with gastritis and rectal ulcer. continue PPI. (6) Anxiety Plan: Continue Valium as needed. seems stable. (7) Diarrhea repeat C diff negative. lomotil as needed. (8) Dizziness Plan: CT head ordered by oncology 06/10 - No acute disease. Dizziness has now resolved. DVT prophylaxis: SCDs, no chemoprophylaxis given thrombocytopenia. Discharge Planning when cleared by oncology. Elma Feliz MD Jun 22, 2016 08:16
[2016-06-22] MEDS: GABAPENTIN 300 MG CAP PO SCH ×3 (08:41→17:35)
[2016-06-22] MEDS: SODIUM CHLORIDE 0.9% FLUSH 5 ML FLUSH IV SCH ×2 (08:41→20:37)
[2016-06-22] MEDS: POTASSIUM CHLORIDE 10 MEQ CAP PO SCH (08:41)
[2016-06-22] MEDS: PANTOPRAZOLE SOD 20 MG DELAYED RELEASE TAB PO SCH (08:41)
[2016-06-22] MEDS: DIAZEPAM 10 MG TAB PO SCH ×2 (08:41→20:35)
[2016-06-22] MEDS: FAMOTIDINE 20 MG TAB PO SCH (08:41)
[2016-06-22] MEDS: FUROSEMIDE 20 MG TAB PO SCH (08:41)
[2016-06-22] MEDS: ACYCLOVIR 200 MG CAP PO SCH (08:42)
[2016-06-22 08:45] LABS: MEAN CELL VOLUME 88.3 FL (80.0-100.0); MEAN CORPUSCULAR HEMOGLOBIN 30.7 PG (27.0-34.0); MEAN CORPUSCULAR HGB CONC 34.7 % (32.0-36.0); PLATELET COUNT 115 TH/MM3 (150-450); RED BLOOD COUNT 2.38 MIL/MM3 (4.00-5.30); RED CELL DISTRIBUTION WIDTH 12.8 % (11.6-17.2); WHITE BLOOD COUNT 0.8 TH/MM3 (4.0-11.0)
[2016-06-22 08:51] LABS: HEMO FLAGS AUTO DIFF
[2016-06-22] MEDS ORDERED: CYANOCOBALAMIN 1000 MCG/ML VIAL IM ONE (10:00)
[2016-06-22] MEDS: SODIUM CHLORIDE 0.9% FLUSH 5 ML FLUSH IVF SCH (10:05)
[2016-06-22] MEDS ORDERED: diphenhydrAMINE HCL 25 MG CAP PO PRN (10:15)
[2016-06-22] MEDS ORDERED: SODIUM CHLOR 0.9% 250 ML INJ 250 ML IV ONE (10:15)
[2016-06-22] MEDS ORDERED: ACETAMINOPHEN 325 MG TAB PO PRN (10:15)
--- NOTE | 2016-06-22 10:21 | PD.ONC.PN ---
Subjective Subjective Remarks Afebrile overnight. Patient had no diarrhea yesterday. She denies abdominal pain. No nausea. She felt somewhat winded when she walked yesterday. Objective Data Date Time Temp Pulse Resp B/P Pulse Ox O2 Delivery O2 Flow Rate FiO2 06/22/16 08:00 98.7 80 18 107/67 96 06/22/16 05:30 98.5 107 18 112/52 94 06/22/16 03:33 19 06/22/16 00:00 98.0 80 17 112/52 91 06/21/16 22:49 20 06/21/16 20:00 98.1 82 17 121/56 92 06/21/16 16:00 98.1 78 18 144/66 95 06/21/16 11:44 98.3 97 18 100/54 100 06/22/16 06/22/16 06/22/16 07:00 15:00 23:00 Intake Total 720 ml Balance 720 ml Result Diagram: 06/22/16 0611 06/22/16 0611 Laboratory Results Laboratory Tests Test 06/22/16 06:11 White Blood Count 0.8 TH/MM3 Red Blood Count 2.38 MIL/MM3 Hemoglobin 7.3 GM/DL Hematocrit 21.0 % Mean Corpuscular Volume 88.3 FL Mean Corpuscular Hemoglobin 30.7 PG Mean Corpuscular Hemoglobin 34.7 % Concent Red Cell Distribution Width 12.8 % Platelet Count 115 TH/MM3 Mean Platelet Volume 9.0 FL Neutrophils (%) (Auto) % Lymphocytes (%) (Auto) % Monocytes (%) (Auto) % Eosinophils (%) (Auto) % Basophils (%) (Auto) % Neutrophils # (Auto) TH/MM3 Lymphocytes # (Auto) TH/MM3 Monocytes # (Auto) TH/MM3 Eosinophils # (Auto) TH/MM3 Basophils # (Auto) TH/MM3 CBC Comment AUTO DIFF Creatinine 0.73 MG/DL Estimat Glomerular Filtration 81 ML/MIN Rate Vancomycin Level Trough 16.9 MCG/ML Administered Medications Medications (Trade) Dose Ordered Sig/Prashant Route PRN Reason Start Time Stop Time Status Last Admin Dose Admin Carisoprodol (Soma) 350 mg TID PRN PO PAIN 05/16/16 17:30 06/22/16 01:21 Furosemide (Lasix) 20 mg DAILY PO 05/17/16 09:00 06/22/16 08:41 Gabapentin (Neurontin) 300 mg TID PO 05/16/16 18:00 06/22/16 08:41 Levothyroxine Sodium (Synthroid) 25 mcg DAILY@06 PO 05/17/16 06:00 06/22/16 06:16 Potassium Chloride (KCl) 10 meq DAILY PO 05/17/16 09:00 06/22/16 08:41 Famotidine (Pepcid) 20 mg BID PO 05/16/16 21:00 06/22/16 08:41 IV Flush (NS Flush) 2 ml BID IV 05/16/16 21:00 06/22/16 08:41 Ondansetron HCl (Zofran Inj) 4 mg Q6H PRN IV NAUSEA 05/16/16 17:45 06/17/16 21:06 Acetaminophen (Tylenol) 650 mg Q6HR PRN PO headache 05/17/16 06:30 06/16/16 12:08 Oxycodone/ Acetaminophen (Percocet 5-325 Mg) 1 tab Q4H PRN PO pain 1-5 05/20/16 10:00 06/14/16 11:36 Oxycodone HCl (Roxicodone) 10 mg Q4H PRN PO pain 6-10 05/21/16 16:00 06/22/16 10:04 IV Flush (NS Flush) DAILY IVF 05/24/16 09:00 06/22/16 10:05 Heparin Sodium (Porcine) (Heparin Central Flush) DAILY IVF 05/24/16 09:00 06/21/16 09:29 IV Flush (NS Flush) UNSCH PRN IVF SEE PROTOCOL 05/23/16 15:30 06/16/16 21:15 Heparin Sodium (Porcine) (Heparin Central Flush) UNSCH PRN IVF SEE PROTOCOL 05/23/16 15:30 06/02/16 04:01 Docusate Sodium (Colace) 100 mg BID PO 05/24/16 11:00 Hold 06/05/16 07:58 Morphine Sulfate (Morphine Inj) 2 mg Q2HR PRN IV PUSH SEVERE BREAKTHROUGH PAIN 05/27/16 08:45 06/21/16 17:11 Diazepam (Valium) 10 mg Q12HR PO 05/28/16 09:00 06/22/16 08:41 Temazepam 15 mg 15 mg HS PRN PO SLEEP 05/28/16 08:00 06/01/16 22:23 Cefepime HCl 2000 mg/Sodium Chloride 100 ml @ 200 mls/hr Q8H IV 06/05/16 18:00 06/22/16 08:42 Micafungin Sodium/ Sodium Chloride (Mycamine Inj/NS Inj) 100 ml @ 100 mls/hr Q24H IV 06/10/16 16:00 06/21/16 15:05 Potassium Phos/ Sodium Phos (K-Phos Neutral) 250 mg Q6HR PO 06/12/16 12:00 06/22/16 06:16 Acyclovir (Zovirax) 400 mg DAILY PO 06/17/16 09:00 06/22/16 08:42 Pantoprazole Sodium 20 mg 20 mg DAILY PO 06/17/16 09:00 06/22/16 08:41 Vancomycin HCl/ Sodium Chloride (Vancomycin Inj/ NS 250 ml Inj) 262.5 ml @ 250 mls/hr Q12H IV 06/20/16 06:00 06/22/16 06:13 Diphenoxylate HCl/ Atropine (Lomotil Tab) 1 tab Q6H PRN PO LOOSE STOOL 06/20/16 07:45 06/21/16 09:33 Objective Remarks GENERAL: Pleasant female, sitting up in bed in nad. SKIN: Warm and dry. Donaldson catheter, right chest wall. site clean. HEAD: Normocephalic. EYES: No injection or drainage. NECK: Supple, trachea midline. CARDIOVASCULAR: Regular rate and rhythm. RESPIRATORY: Breath sounds equal bilaterally. No accessory muscle use. GASTROINTESTINAL: Abdomen soft, non-tender. no masses. EXTREMITIES: No cyanosis. no edema. NEUROLOGICAL: AO x3. normal speech. moving all extremities. Assessment/Plan Problem List: (1) AML (acute myeloid leukemia) Status: Acute Plan: 06/22/16: will give B12 injection to help enhance hematopoiesis. monitor WBC. give 1 unit pRBC for symptomatic anemia 06/21/16: awaiting WBC recovery. platelets continuing to improve. 06/20/16: D25. slight bump in WBC. platelets improving. 06/19/16: D24. Platelet counts starting to improve. Continue to wait for white cells to recover. Pt doing very well clinically. 06/18/16: D23. Doing well. We will await counts to improve/ bone marrow recovery. Absolute neutrophil count still at 0 today. 06/17/16: D22. bone marrow biopsy shows no residual leukemia. awaiting bone marrow recovery. nausea resolved. diarrhea persistent. 06/16/16: D21: waiting on bone marrow recovery. flow shows only 0.08% blasts. awaiting pathology. no diarrhea since last night. fs faxed to [facility] for follow up after discharge. 06/15/16: diarrhea worsening. suspect abx side effect. will stop allopurinol as this also may be contributing. 06/14/16: D19. no transfusion needed today. mild headache. monitor. Having some diarrhea, C. difficile negative 2. 06/13/16: D18. BMB today. no nausea. stable. 06/12/16:D17: Intermittent headache. Blood counts stable. Bone marrow biopsy tomorrow. 06/11/16: D16. Doing well today. Counts stable. Headache improved; CT brain negative. Will plan for bone marrow biopsy with IR on Thursday. 06/10/16: D15. 1 unit plts. dizzy w/ headache. CT brain pending 06/09/16:D14. 2 units pRBC today. 06/08/16: No issues overnight. Plt's are low at 11,000. Likely will drop again tomorrow, so we will transfuse x1 dose today. No bleeding. 06/07/16: Afebrile. Neutropenic precautions continue. 06/06/16: afebrile overnight. continue abx per ID. pain pump refilled. 06/05/16: spiked fever overnight. started on Cefepime. Levaquin stopped. ID consulted. CT ab/pelvis negative 06/04/16: D9. 1 unit plt 06/03/16: D8 chemo finishes late tonight. started on acyclovir/diflucan/levaquin for prophylaxis. 06/01/16: D6. nauseated. otherwise no events. continue chemo. 05/31/16:D5. no events. 05/30/16: D4 chemotherapy. no transfusion today. 05/29/16: D3 chemotherapy. Tolerated well Blood counts trending lower. Transfuse PRBC 2U. CSF cytology negative. 05/28/16: Tolerated chemo well, no significant side effect. Blood counts started to trend down. 05/27/16: D1. Abril-C + Idarubicin. AML w/ intermediate risk cytogenetics. (2) Pancytopenia Status: Acute Plan: transfuse for platelets less than 10k and a Hgb of less than 7. (3) presence of pain pump Status: Chronic Plan: --patient with intrathecal pain pump --managed by Dr. Omer outpatient --pain pump refilled on 06/06/16 Assessment 61y/o female with AML, s/p induction with ABRIL-C + KELSEA. Plan 1. give B12 1000mcg IM x 1 2. monitor CBC 3. 1 unit pRBC Attending Statement DICKERSON no other c/o PRBC today. still has neutropenia and anemia. However plat are going up. BM bx reviewed. NO Dysplastic changes noted to suggest MDS. This could be drug induce. Hold Vanco, acyclovir, Pepcid and Prevacid. continue cefapime and micafungin. consider to hold or change if WBC does not improve in next 48 hrs. The exam, history, and the medical decision-making described in the above note were completed with the assistance of the mid-level provider. I reviewed and agree with the findings presented. I attest that I had a [id number] encounter with the patient on the same day, and personally performed and documented my assessment and findings in the medical record. Problem Qualifiers (1) AML (acute myeloid leukemia): Qualified Code: C92.00 - Acute myeloid leukemia not having achieved remission Radha Lawrence Jun 22, 2016 10:21 uV Silver MD Jun 22, 2016 17:18
[2016-06-22 12:06] LABS: BANDS 1 % (0-6); POLYS (SEG NEUTROPHILS) 4 % (16-70); WBC DIFF SAMPLE 100
[2016-06-22 12:07] LABS: OVALOCYTES 1+ (NORMAL); PLATELET ESTIMATE SMEAR LOW (NORMAL); PLATELET MORPHOLOGY NORMAL (NORMAL); SCAN/DIFF FINAL DIFF MANUAL
[2016-06-22] MEDS: MORPHINE SULFATE 4 MG/ML INJ IV PUSH PRN (13:20)
[2016-06-22] MEDS: MICAFUNGIN INJ 100 MG in SODIUM CHLORIDE 0.9% INJ 100 ML IV SCH (16:21)
[2016-06-23] MEDS: LACTATED RINGER'S 1000 ML IV SCH (00:09)
[2016-06-23 00:20] VITALS: BP 107/54; PULSE 80; RESP 16; TEMP 96.8; O2SAT 94
[2016-06-23] MEDS: POTASSIUM PHOSPHATE/SODIUM PHOSPHATE 250 MG TAB PO SCH ×5 (00:20→23:55)
[2016-06-23] MEDS: CEFEPIME INJ 2,000 MG in SODIUM CHLORIDE 0.9% INJ 100 ML IV SCH ×3 (02:16→17:35)
[2016-06-23] MEDS: SODIUM CHLORIDE 0.9% FLUSH 5 ML FLUSH IVF PRN ×3 (02:17→21:02)
[2016-06-23] MEDS: SODIUM CHLORIDE 0.9% FLUSH 5 ML FLUSH IV PRN ×2 (03:46→19:08)
[2016-06-23 04:00] VITALS: BP 113/55; PULSE 88; RESP 18; TEMP 99.6; O2SAT 92
[2016-06-23] MEDS: LEVOTHYROXINE SODIUM 25 MCG TAB PO SCH (05:38)
[2016-06-23 06:06] LABS: HEMATOCRIT 23.9 % (35.0-46.0); MEAN CELL VOLUME 87.2 FL (80.0-100.0); MEAN CORPUSCULAR HEMOGLOBIN 30.6 PG (27.0-34.0); MEAN CORPUSCULAR HGB CONC 35.1 % (32.0-36.0); PLATELET COUNT 175 TH/MM3 (150-450); RED BLOOD COUNT 2.74 MIL/MM3 (4.00-5.30); WHITE BLOOD COUNT 0.8 TH/MM3 (4.0-11.0)
[2016-06-23 06:38] LABS: HEMO FLAGS AUTO DIFF
[2016-06-23 07:50] VITALS: BP 126/58; PULSE 108; RESP 20; TEMP 97.7; O2SAT 94
--- NOTE | 2016-06-23 08:03 | HHI.PR ---
Subjective Remarks resting comfortably with no distress. no fever. no new complaints. Objective Vitals Vital Signs Date Time Temp Pulse Resp B/P Pulse Ox O2 Delivery O2 Flow Rate FiO2 06/23/16 04:00 99.6 88 18 113/55 92 06/23/16 00:20 96.8 80 16 107/54 94 06/22/16 20:00 98.3 79 18 119/58 93 06/22/16 16:00 98.7 78 20 117/55 97 06/22/16 14:01 99.1 82 20 105/51 98 06/22/16 13:48 97.8 88 20 116/53 98 06/22/16 13:40 97.8 88 20 116/53 98 I/O 06/22/16 06/22/16 06/22/16 06/23/16 06/23/16 06/23/16 07:00 15:00 23:00 07:00 15:00 23:00 Intake Total 720 ml 605 ml 840 ml 590 ml Balance 720 ml 605 ml 840 ml 590 ml Intake Oral 720 ml 480 ml 840 ml 480 ml IV Total 125 ml 110 ml # Voids 1 3 3 Result Diagram: 06/23/16 0350 06/22/16 0611 Imaging Last Impressions Bone Biopsy CT 06/13/16 0000 Signed Impressions: Service Date/Time: Monday, June 13, 2016 08:35 - CONCLUSION: 1. Uncomplicated CT guided bone marrow aspirate. 2. Uncomplicated CT guided bone marrow biopsy. Juan Carlos Cherry MD FACR Head CT 06/10/16 0000 Signed Impressions: Service Date/Time: Friday, June 10, 2016 14:56 - CONCLUSION: Stable noncontrast head CT. No acute intracranial abnormality is identified. Bravo Jackman MD Abdomen/Pelvis CT 06/05/16 0000 Signed Impressions: Service Date/Time: May 22:13 - CONCLUSION: Minimal fluid in the pelvis, otherwise unremarkable. Cynthia Guardado MD Chest X-Ray 06/04/16 0000 Signed Impressions: Service Date/Time: Saturday, June 04, 2016 21:23 - CONCLUSION: No acute disease. Kilo Cotto MD Lumbar Puncture Fluoroscopy 05/23/16 0000 Signed Impressions: Service Date/Time: Monday, May 23, 2016 14:16 - CONCLUSION: Uncomplicated fluoroscopically guided lumbar puncture. Bubba Cherry MD Catheter Placement X-Ray 05/23/16 0000 Signed Impressions: Service Date/Time: Monday, May 23, 2016 14:16 - CONCLUSION: Uncomplicated Donaldson catheter placement as above. Bubba Cherry MD Chest CT 05/17/16 0000 Signed Impressions: Service Date/Time: Tuesday, May 17, 2016 15:14 - CONCLUSION: 1. 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 There are trace to very small bilateral pleural effusions and mild cardiomegaly noted. 2. No lobar consolidation. 3. Upper limits of normal to mildly enlarged mediastinal and bilateral hilar lymph nodes, nonspecific but presumably reactive. Bravo Mendez MD Objective Remarks GENERAL: This is a well-nourished, well-developed patient, in no apparent distress. CARDIOVASCULAR: Regular rate and regular rhythm without murmurs, gallops, or rubs. RESPIRATORY: Clear to auscultation. Breath sounds equal bilaterally. No wheezes , rales, or rhonchi. GASTROINTESTINAL: Abdomen soft, non-tender, nondistended. Normal, active bowel sounds MUSCULOSKELETAL: Extremities without clubbing, cyanosis, or edema. NEURO: Alert & Oriented x4 to person, place, time, situation. Moves all ext x4 Procedures EGD/ colonoscopy Bone marrow biopsy Medications and IVs Current Medications Sodium Chloride (NS 1000 ml Inj) 1,000 ml @ 1,000 mls/hr Q1H IV Last administered on 05/16/16at 15:22; Start 05/16/16 at 14:49; Stop 05/16/16 at 15 :48; Status DC IV Flush (NS Flush) 2 ml UNSCH PRN IVF FLUSH AFTER USING IV ACCESS Last administered on 05/16/16at 16:58; Start 05/16/16 at 15:00; Stop 05/16/16 at 17 :36; Status DC Pantoprazole Sodium (Protonix Inj) 40 mg ONCE ONCE IV PUSH Last administered on 05/16/16at 16:57; Start 05/16/16 at 16:45; Stop 05/16/16 at 16:46; Status DC Carisoprodol (Soma) 350 mg TID PRN PO PAIN Last administered on 06/22/16 01:21 ; Start 05/16/16 at 17:30 Furosemide (Lasix) 20 mg DAILY PO Last administered on 06/22/16 08:41; Start 05/17/16 at 09:00 Gabapentin (Neurontin) 300 mg TID PO Last administered on 06/22/16 17:35; Start 05/16/16 at 18:00 Levothyroxine Sodium (Synthroid) 25 mcg DAILY@06 PO Last administered on 05:38; Start 05/17/16 at 06:00 Potassium Chloride (KCl) 10 meq DAILY PO Last administered on 06/22/16 08:41; Start 05/17/16 at 09:00 Famotidine 20 mg 20 mg BID PO Last administered on 06/22/16 08:41; Start 05/16 at 21:00; Status Hold Sodium Chloride (NS 1000 ml Inj) 1,000 ml @ 75 mls/hr [id number] IV Last administered on 05/16/16at 17:59; Start 05/16/16 at 17:31; Stop 05/17/16 at 06 :50; Status DC IV Flush (NS Flush) 2 ml UNSCH PRN IV FLUSH AFTER USING IV ACCESS Last administered on 06/23/16 03:46; Start 05/16/16 at 17:45 IV Flush (NS Flush) 2 ml BID IV Last administered on 06/22/16 08:41; Start at 21:00 Ondansetron HCl (Zofran Inj) 4 mg Q6H PRN IV NAUSEA Last administered on 21:06; Start 05/16/16 at 17:45 Pantoprazole Sodium (Protonix Inj) 40 mg Q24H IV PUSH Last administered on 08:42; Start 05/17/16 at 09:00; Stop 05/21/16 at 14:52; Status DC Influenza Virus Vaccine (Flu (Quadrivalent) Vaccine Inj) 0.5 ml ONCE ONCE IM Last administered on 05/17/16at 11:51; Start 05/17/16 at 10:00; Stop 05/17/16 at 10:01; Status DC Acetaminophen (Tylenol) 650 mg Q6HR PRN PO headache Last administered on 12:08; Start 05/17/16 at 06:30 Diatrizoate Meglum/ Diatrizoate Sod (Md Arita Liq) 18 ml ONCE ONCE PO Last administered on 05/17/16at 11:49; Start 05/17/16 at 11:15; Stop 05/17/16 at 11:16; Status DC Iohexol (Omnipaque 350 Inj) 75 ml STK-MED ONCE IV Last administered on at 15:29; Start 05/17/16 at 15:29; Stop 05/17/16 at 15:30; Status DC Diazepam (Valium) 10 mg Q12HR PO Last administered on 05/24/16 08:12; Start 05/18/16 at 12:00; Stop 05/24/16 at 13:36; Status DC Polyethylene Glycol/ Electrolytes 4000 ml 4,000 ml ONCE ONCE PO Last administered on 05/19/16 16:34; Start 05/19/16 at 16:00; Stop 05/19/16 at 16:01; Status DC Lactated Ringer's (Lr 1000 ml Inj) 1,000 ml @ 30 mls/hr Q24H IV ; Start at 01:15 Acetaminophen (Tylenol) 650 mg ONCE ONCE PO Last administered on 05/20/16 05: 00; Start 05/20/16 at 05:00; Stop 05/20/16 at 05:03; Status DC Lidocaine/ Epinephrine 20 ml 20 ml STK-MED ONCE .ROUTE Last administered on 05/20 08:36; Start 05/20/16 at 08:36; Stop 05/20/16 at 08:49; Status DC Sodium Bicarbonate (Sodium Bicarbonate 8.4% Inj) 50 ml @ As Directed STK-MED ONCE .ROUTE Last administered on 05/20/16 08:36; Start 05/20/16 at 08:36; Stop 05/20/16 at 08:50; Status DC Fentanyl Citrate (fentaNYL INJ) 250 mcg STK-MED ONCE .ROUTE Last administered on 05/20/16 08:43; Start 05/20/16 at 08:43; Stop 05/20/16 at 08:51; Status DC Midazolam HCl (Versed Inj) 5 mg STK-MED ONCE .ROUTE Last administered on 08:43; Start 05/20/16 at 08:43; Stop 05/20/16 at 08:51; Status DC Oxycodone/ Acetaminophen (Percocet 5-325 Mg) 1 tab Q4H PRN PO pain 1-5 Last administered on 06/14/16 11:36; Start 05/20/16 at 10:00 Propofol (Diprivan 200 Mg/20 ml Inj) 310 mg STK-MED ONCE IV ; Start 05/20/16 at 12:55; Stop 05/20/16 at 13:30; Status DC Mesalamine (Canasa Supp) 1,000 mg HS RECTAL ; Start 05/20/16 at 21:00; Status Hold Pantoprazole Sodium (Protonix) 40 mg DAILY PO Last administered on 06/17/16 08 :07; Start 05/22/16 at 09:00; Stop 06/17/16 at 08:57; Status DC Oxycodone HCl (Roxicodone) 10 mg Q4H PRN PO pain 6-10 Last administered on 04:23; Start 05/21/16 at 16:00 Acetaminophen/ Butalbital/ Caffeine 1 tab 1 tab ONCE ONCE PO Last administered on 05/21/16 17:42; Start 05/21/16 at 16:00; Stop 05/21/16 at 16:04; Status DC Vancomycin HCl 1000 mg/Sodium Chloride 250 ml @ 250 mls/hr BOTTLE WASHER IV Last administered on 05/23/16 13:00; Start 05/22/16 at 16:45; Stop 05/26/16 at 16:44; Status DC Cefazolin Sodium/ Dextrose (Ancef 2 Gm Premix) 50 ml @ 100 mls/hr BOTTLE WASHER IV ; Start 05/22/16 at 18:00; Stop 05/26/16 at 17:59; Status DC Bisacodyl (Dulcolax Supp) 10 mg DAILY PRN MS CONSTIPATION Last administered on 05/22/16 22:31; Start 05/22/16 at 22:15; Stop 05/24/16 at 10:23; Status DC Sodium Biphosphate/ Sodium Phosphate (Fleets Enema (Adult)) 133 ml ONCE PRN MS constipation; Start 05/22/16 at 22:15; Stop 05/23/16 at 22:14; Status Cancel Midazolam HCl (Versed Inj) 5 mg STK-MED ONCE .ROUTE Last administered on 13:44; Start 05/23/16 at 13:44; Stop 05/23/16 at 13:45; Status DC Fentanyl Citrate (fentaNYL INJ) 250 mcg STK-MED ONCE .ROUTE Last administered on 05/23/16 13:44; Start 05/23/16 at 13:44; Stop 05/23/16 at 13:45; Status DC Heparin Sodium (Porcine) (*HEPARIN CENTRAL FLUSH PERIprocedural ONLY) 500 units STK-MED ONCE .ROUTE Last administered on 05/23/16 15:20; Start 05/23/16 at 14:30 ; Stop 05/23/16 at 14:31; Status DC Lidocaine/ Epinephrine (Xylocaine-Epi 1%-1:100,000 Inj) 20 ml STK-MED ONCE .ROUTE Last administered on 05/23/16 15:02; Start 05/23/16 at 14:30; Stop at 14:31; Status DC Midazolam HCl (Versed Inj) 5 mg STK-MED ONCE .ROUTE Last administered on 15:10; Start 05/23/16 at 15:10; Stop 05/23/16 at 15:11; Status DC Fentanyl Citrate 250 mcg 250 mcg STK-MED ONCE .ROUTE Last administered on 15:10; Start 05/23/16 at 15:10; Stop 05/23/16 at 15:11; Status DC Ceftriaxone Sodium/Sodium Chloride (Rocephin Inj/NS Inj) 100 ml @ 200 mls/hr Q24H IV Last administered on 05/30/16 17:19; Start 05/23/16 at 16:00; Stop at 09:52; Status DC IV Flush (NS Flush) DAILY IVF Last administered on 06/22/16 10:05; Start at 09:00 Heparin Sodium (Porcine) (Heparin Central Flush) DAILY IVF Last administered on 06/22/16 10:55; Start 05/24/16 at 09:00 IV Flush (NS Flush) UNSCH PRN IVF SEE PROTOCOL Last administered on 06/23/16 03:46; Start 05/23/16 at 15:30 Heparin Sodium (Porcine) (Heparin Central Flush) UNSCH PRN IVF SEE PROTOCOL Last administered on 06/23/16 03:46; Start 05/23/16 at 15:30 Docusate Sodium (Colace) 100 mg BID PO Last administered on 06/05/16 07:58; Start 05/24/16 at 11:00; Status Hold Lactulose (Lactulose Liq) 30 ml ONCE ONCE PO Last administered on 05/24/16 12: 15; Start 05/24/16 at 10:30; Stop 05/24/16 at 10:31; Status DC Lorazepam (Ativan) 1 mg Q4HR PRN PO anxiety Last administered on 05/24/16 22:38 ; Start 05/24/16 at 13:45; Stop 05/25/16 at 09:00; Status DC Lorazepam (Ativan) 1 mg ONCE ONCE PO Last administered on 05/24/16 14:27; Start 05/24/16 at 13:45; Stop 05/24/16 at 13:46; Status DC Lorazepam (Ativan) 2 mg Q6H PRN PO anxiety Last administered on 05/27/16 07:35 ; Start 05/25/16 at 08:59; Stop 05/28/16 at 08:03; Status DC Lactulose (Lactulose Liq) 30 ml QID PO Last administered on 05/25/16 20:06; Start 05/25/16 at 13:00; Stop 05/25/16 at 21:01; Status DC Polyethylene Glycol (Miralax) 17 gm DAILY PO Last administered on 06/04/16 08: 27; Start 05/25/16 at 14:30; Stop 06/15/16 at 10:54; Status DC Lactic Acid (Lac-Hydrin 12% Lotion) 1 applic BID PRN TOPICAL irritation; Start 05/25/16 at 14:30 Sumatriptan Succinate 25 mg 25 mg ONCE ONCE PO Last administered on 05/25/16 20:06; Start 05/25/16 at 19:45; Stop 05/25/16 at 19:47; Status DC Sodium Chloride (NS 1000 ml Inj) 1,000 ml @ 100 mls/hr Q10H IV Last administered on 06/15/16 10:35; Start 05/26/16 at 09:30; Stop 06/15/16 at 10:54 ; Status DC Allopurinol (Zyloprim) 300 mg DAILY PO Last administered on 06/15/16 08:04; Start 05/26/16 at 09:30; Stop 06/15/16 at 10:19; Status DC Morphine Sulfate 2 mg 2 mg ONCE ONCE IV PUSH Last administered on 05/26/16 10: 46; Start 05/26/16 at 10:30; Stop 05/26/16 at 10:31; Status DC Idarubicin HCl 22.6 mg/Sodium Chloride 122.6 ml @ 490.4 mls/ hr Q24H IV ; Start 05/26/16 at 16:00; Stop 05/26/16 at 17:07; Status DC Granisetron HCl 1 mg/Dexamethasone Sodium Phosphate 20 mg/Sodium Chloride 56 ml @ 336 mls/hr Q24H IV ; Start 05/26/16 at 15:30; Stop 05/26/16 at 17:09; Status DC Cytarabine 189 mg/ Sodium Chloride 500 ml @ 20.833 mls/ hr Q24H IV ; Start 05/26 at 17:00; Stop 05/26/16 at 17:08; Status DC Idarubicin HCl 22.6 mg/Sodium Chloride 122.6 ml @ 490.4 mls/ hr Q24H IV Last administered on 05/29/16 09:00; Start 05/27/16 at 09:00; Stop 05/29/16 at 09:14 ; Status DC Cytarabine 189 mg/ Sodium Chloride 500 ml @ 20.833 mls/ hr Q24H IV Last administered on 06/03/16 04:14; Start 05/27/16 at 10:00; Stop 06/03/16 at 09:59 ; Status DC Granisetron HCl/ Dexamethasone Sodium Phosphate/ Sodium Chloride (Kytril Inj/ Decadron Inj/NS Inj) 56 ml @ 336 mls/hr Q24H IV Last administered on 22:22; Start 05/27/16 at 08:30; Stop 06/02/16 at 08:39; Status DC Morphine Sulfate (Morphine Inj) 2 mg Q2HR PRN IV PUSH SEVERE BREAKTHROUGH PAIN Last administered on 06/22/16 13:20; Start 05/27/16 at 08:45 Lactulose (Lactulose Liq) 30 ml DAILY PO Last administered on 06/05/16 07:57; Start 05/27/16 at 09:00; Stop 06/15/16 at 10:54; Status DC Diazepam (Valium) 10 mg Q12HR PO Last administered on 06/22/16 20:35; Start 04/03 at 09:00 Temazepam 15 mg 15 mg HS PRN PO SLEEP Last administered on 06/01/16 22:23; Start 05/28/16 at 08:00 Sodium Chloride (NS 250 ml Inj) 250 ml @ 15 mls/hr ONCE ONCE IV Last administered on 05/29/16 14:07; Start 05/29/16 at 08:00; Stop 05/30/16 at 00:39 ; Status DC Acetaminophen (Tylenol) 650 mg Q4H PRN PO SEE LABEL COMMENTS; Start 05/29/16 at 08:00; Stop 05/29/16 at 12:01; Status DC Diphenhydramine HCl (Benadryl) 25 mg Q4H PRN PO SEE LABEL COMMENTS; Start 05/29 at 08:00; Stop 05/29/16 at 12:01; Status DC Diphenhydramine HCl (Benadryl) 25 mg Q4H PRN PO SEE LABEL COMMENTS Last administered on 05/29/16 12:54; Start 05/29/16 at 13:00; Stop 05/29/16 at 17:01 ; Status DC Acetaminophen (Tylenol) 650 mg Q4H PRN PO SEE LABEL COMMENTS Last administered on 05/29/16 12:54; Start 05/29/16 at 13:00; Stop 05/29/16 at 17:01; Status DC Diphenhydramine HCl (Benadryl) 25 mg Q4H PRN PO SEE LABEL COMMENTS Last administered on 05/29/16 21:21; Start 05/29/16 at 21:15; Stop 05/30/16 at 01:16 ; Status DC Multi-Ingredient Mouthwash/Gargle (Magic Mouthwash Adult Liq) 5 ml QID SWISH- SWAL Last administered on 06/11/16 08:45; Start 06/03/16 at 09:00; Stop at 12:03; Status DC Acyclovir (Zovirax) 400 mg Q8HR PO Last administered on 06/16/16 05:44; Start 06/03/16 at 14:00; Stop 06/16/16 at 13:56; Status DC Fluconazole (Diflucan) 200 mg DAILY PO Last administered on 06/10/16 09:22; Start 06/03/16 at 09:00; Stop 06/10/16 at 15:16; Status DC Levofloxacin 250 mg 250 mg DAILY@11 PO Last administered on 06/04/16 11:27; Start 06/03/16 at 11:00; Stop 06/05/16 at 07:46; Status DC Sodium Chloride (NS 250 ml Inj) 250 ml @ 15 mls/hr ONCE ONCE IV ; Start at 09:00; Stop 06/05/16 at 01:39; Status DC Acetaminophen (Tylenol) 650 mg Q4H PRN PO SEE LABEL COMMENTS Last administered on 06/04/16 11:27; Start 06/04/16 at 09:00; Stop 06/04/16 at 13:01; Status DC Diphenhydramine HCl 25 mg 25 mg Q4H PRN PO SEE LABEL COMMENTS Last administered on 06/04/16 11:27; Start 06/04/16 at 09:00; Stop 06/04/16 at 13:01 ; Status DC Cefepime HCl/ Sodium Chloride (Maxipime Inj/NS Inj) 100 ml @ 200 mls/hr Q12H IV Last administered on 06/05/16 10:41; Start 06/04/16 at 22:00; Stop at 13:37; Status DC Diatrizoate Meglum/ Diatrizoate Sod 18 ml 18 ml ONCE ONCE PO Last administered on 06/05/16 13:19; Start 06/05/16 at 13:00; Stop 06/05/16 at 13:01 ; Status DC Cefepime HCl/ Sodium Chloride (Maxipime Inj/NS Inj) 100 ml @ 200 mls/hr Q8H IV Last administered on 06/23/16 02:16; Start 06/05/16 at 18:00 Azithromycin 500 mg 500 mg DAILY PO Last administered on 06/10/16 09:21; Start 06/05/16 at 14:00; Stop 06/10/16 at 15:16; Status DC Vancomycin HCl 1000 mg/Sodium Chloride 250 ml @ 250 mls/hr ONCE ONCE IV Last administered on 06/05/16 14:44; Start 06/05/16 at 14:00; Stop 06/05/16 at 14:59 ; Status DC Pharmacy Profile Note (Vancomycin Consult Pharmacy) 0 ml @ 0 mls/hr UNSCH OTHER ; Start 06/05/16 at 13:45 Metronidazole 500 mg 500 mg Q8HR PO Last administered on 06/18/16 13:42; Start 06/05/16 at 14:00; Stop 06/18/16 at 14:14; Status DC Vancomycin HCl/ Sodium Chloride (Vancomycin Inj/ NS 250 ml Inj) 262.5 ml @ 250 mls/hr Q12H IV Last administered on 06/10/16 01:03; Start 06/06/16 at 00:00; Stop 06/10/16 at 15:30; Status DC Miscellaneous Information SPECIFIC LAB TO BE DRAWN:VANCOMYCIN TROUGH DATE TO... ONCE ONCE XX Last administered on 06/07/16 11:45; Start 06/07/16 at 11:45; Stop 06/07/16 at 11:46; Status DC Iohexol (Omnipaque 350 Inj) 100 ml STK-MED ONCE IV Last administered on 22:20; Start 06/05/16 at 22:20; Stop 06/05/16 at 22:21; Status DC Patient Own Medication PT OWN MED: HYDROMORPHONE 40 MG/... UNSCH OTHER ; Start 06/06/16 at 11:00 Sodium Chloride (NS 250 ml Inj) 250 ml @ 15 mls/hr ONCE ONCE IV Last administered on 06/06/16 16:45; Start 06/06/16 at 12:45; Stop 06/07/16 at 05:24 ; Status DC Acetaminophen (Tylenol) 650 mg Q4H PRN PO SEE LABEL COMMENTS Last administered on 06/06/16 16:19; Start 06/06/16 at 12:45; Stop 06/06/16 at 16:46; Status DC Diphenhydramine HCl (Benadryl) 25 mg Q4H PRN PO SEE LABEL COMMENTS Last administered on 06/06/16 16:18; Start 06/06/16 at 12:45; Stop 06/06/16 at 16:46 ; Status DC Miscellaneous Information SPECIFIC LAB TO BE VIKRAM... ONCE ONCE XX Last administered on 06/08/16 13:45; Start 06/08/16 at 11:45; Stop 06/08/16 at 11:46 ; Status DC Sodium Chloride (NS 250 ml Inj) 250 ml @ 15 mls/hr ONCE ONCE IV Last administered on 06/08/16 13:00; Start 06/08/16 at 13:00; Stop 06/09/16 at 05:39 ; Status DC Diphenhydramine HCl 25 mg 25 mg Q4H PRN PO SEE LABEL COMMENTS; Start 06/08/16 at 13:00; Stop 06/08/16 at 17:01; Status DC Sodium Chloride (NS 250 ml Inj) 250 ml @ 15 mls/hr ONCE ONCE IV Last administered on 06/09/16 11:51; Start 06/09/16 at 07:30; Stop 06/10/16 at 00:09 ; Status DC Acetaminophen (Tylenol) 650 mg Q4H PRN PO SEE LABEL COMMENTS; Start 06/09/16 at 07:30; Stop 06/09/16 at 11:31; Status DC Diphenhydramine HCl (Benadryl) 25 mg Q4H PRN PO SEE LABEL COMMENTS; Start 06/09 at 07:30; Stop 06/09/16 at 11:31; Status DC Loperamide HCl 2 mg 2 mg UNSCH PRN PO DIARRHEA Last administered on 06/15/16 08:03; Start 06/09/16 at 11:15; Stop 06/15/16 at 10:54; Status DC Magnesium Sulfate/ Dextrose 100 ml @ 100 mls/hr Q1H IV Last administered on 15:35; Start 06/10/16 at 09:15; Stop 06/10/16 at 11:14; Status DC Sodium Chloride (NS 250 ml Inj) 250 ml @ 15 mls/hr ONCE ONCE IV Last administered on 06/10/16 12:26; Start 06/10/16 at 09:30; Stop 06/11/16 at 02:09 ; Status DC Acetaminophen (Tylenol) 650 mg Q4H PRN PO SEE LABEL COMMENTS Last administered on 06/10/16 10:57; Start 06/10/16 at 09:30; Stop 06/10/16 at 13:31; Status DC Diphenhydramine HCl 25 mg 25 mg Q4H PRN PO SEE LABEL COMMENTS Last administered on 06/10/16 10:57; Start 06/10/16 at 09:30; Stop 06/10/16 at 13:31 ; Status DC Micafungin Sodium 100 mg/Sodium Chloride 100 ml @ 100 mls/hr Q24H IV Last administered on 06/22/16 16:21; Start 06/10/16 at 16:00 Vancomycin HCl/ Sodium Chloride (Vancomycin Inj/ NS 500 ml Inj) 515 ml @ 250 mls/hr Q12H IV Last administered on 06/12/16 05:32; Start 06/10/16 at 18:00; Stop 06/12/16 at 09:22; Status DC Miscellaneous Information SPECIFIC LAB TO BE DRAWN:VANCOMYCIN TROUGH DATE TO... ONCE ONCE XX Last administered on 06/12/16 05:33; Start 06/12/16 at 05:45; Stop 06/12/16 at 05:46; Status DC Vancomycin HCl/ Sodium Chloride (Vancomycin Inj/ NS 500 ml Inj) 517.5 ml @ 250 mls/hr Q12H IV Last administered on 06/14/16 05:14; Start 06/12/16 at 18:00; Stop 06/14/16 at 10:10; Status DC Miscellaneous Information SPECIFIC LAB TO BE DRAWN:VANCOMYCIN TROUGH DATE TO... ONCE ONCE XX Last administered on 06/14/16 05:15; Start 06/14/16 at 05:45; Stop 06/14/16 at 05:46; Status DC Potassium Chloride (KCl) 30 meq ONCE ONCE PO Last administered on 06/12/16 13 :21; Start 06/12/16 at 09:30; Stop 06/12/16 at 09:37; Status DC Potassium Phos/ Sodium Phos (K-Phos Neutral) 250 mg Q6HR PO Last administered on 06/23/16 05:39; Start 06/12/16 at 12:00 Lidocaine/ Epinephrine (Xylocaine-Epi 1%-1:100,000 Inj) 20 ml STK-MED ONCE .ROUTE Last administered on 06/13/16 07:27; Start 06/13/16 at 07:27; Stop at 07:28; Status DC Fentanyl Citrate (fentaNYL INJ) 250 mcg STK-MED ONCE .ROUTE Last administered on 06/13/16 07:51; Start 06/13/16 at 07:51; Stop 06/13/16 at 07:52; Status DC Midazolam HCl (Versed Inj) 5 mg STK-MED ONCE .ROUTE Last administered on 07:51; Start 06/13/16 at 07:51; Stop 06/13/16 at 07:52; Status DC Thrombin (Thrombin Top Soln) 5,000 units STK-MED ONCE .ROUTE Last administered on 06/13/16 08:41; Start 06/13/16 at 08:41; Stop 06/13/16 at 08:42; Status DC Hydromorphone HCl (Dilaudid Pf Inj) 2 mg STK-MED ONCE .ROUTE Last administered on 06/13/16 08:48; Start 06/13/16 at 08:48; Stop 06/13/16 at 08:49; Status DC Gelatin 1 foam 1 foam STK-MED ONCE .XX Last administered on 06/13/16 09:33; Start 06/13/16 at 09:33; Stop 06/13/16 at 09:34; Status DC Sodium Chloride (NS 250 ml Inj) 250 ml @ 15 mls/hr ONCE ONCE IV Last administered on 06/13/16 12:48; Start 06/13/16 at 10:00; Stop 06/14/16 at 02:39 ; Status DC Acetaminophen (Tylenol) 650 mg Q4H PRN PO SEE LABEL COMMENTS; Start 06/13/16 at 10:00; Stop 06/13/16 at 14:01; Status DC Diphenhydramine HCl 25 mg 25 mg Q4H PRN PO SEE LABEL COMMENTS Last administered on 06/13/16 11:34; Start 06/13/16 at 10:00; Stop 06/13/16 at 14:01 ; Status DC Sodium Chloride (NS 250 ml Inj) 250 ml @ 15 mls/hr ONCE ONCE IV Last administered on 06/13/16 12:48; Start 06/13/16 at 12:00; Stop 06/14/16 at 04:39 ; Status DC Acetaminophen (Tylenol) 650 mg Q4H PRN PO SEE LABEL COMMENTS; Start 06/13/16 at 12:00; Stop 06/13/16 at 16:01; Status DC Diphenhydramine HCl (Benadryl) 25 mg Q4H PRN PO SEE LABEL COMMENTS; Start 06/13 at 12:00; Stop 06/13/16 at 16:01; Status DC Diphenhydramine HCl (Benadryl) 25 mg ONCE ONCE PO Last administered on 20:42; Start 06/13/16 at 21:00; Stop 06/13/16 at 21:01; Status DC Potassium Chloride 30 meq 30 meq ONCE ONCE PO Last administered on 06/14/16 10:40; Start 06/14/16 at 09:15; Stop 06/14/16 at 09:16; Status DC Vancomycin HCl/ Sodium Chloride (Vancomycin Inj/ NS 500 ml Inj) 520 ml @ 250 mls/hr Q12H IV Last administered on 06/16/16 05:44; Start 06/14/16 at 18:00; Stop 06/16/16 at 11:21; Status DC Miscellaneous Information SPECIFIC LAB TO BE VIKRAM... ONCE ONCE XX Last administered on 06/16/16 05:44; Start 06/16/16 at 05:45; Stop 06/16/16 at 05:46 ; Status DC Diphenoxylate HCl/ Atropine 1 tab 1 tab Q6H PRN PO diarrhea Last administered on 06/15/16 13:17; Start 06/15/16 at 11:00; Stop 06/16/16 at 14:33; Status DC Sodium Chloride (NS 250 ml Inj) 250 ml @ 15 mls/hr ONCE ONCE IV Last administered on 06/16/16 12:27; Start 06/16/16 at 08:30; Stop 06/17/16 at 01:09 ; Status DC Acetaminophen (Tylenol) 650 mg Q4H PRN PO SEE LABEL COMMENTS; Start 06/16/16 at 08:30; Stop 06/16/16 at 12:31; Status DC Diphenhydramine HCl (Benadryl) 25 mg Q4H PRN PO SEE LABEL COMMENTS Last administered on 06/16/16 12:08; Start 06/16/16 at 08:30; Stop 06/16/16 at 12:31 ; Status DC Simethicone 80 mg 80 mg PCHS PRN CHEW GAS RETENTION Last administered on 12:34; Start 06/16/16 at 09:15; Stop 06/16/16 at 14:10; Status DC Vancomycin HCl/ Sodium Chloride (Vancomycin Inj/ NS 500 ml Inj) 517.5 ml @ 250 mls/hr Q12H IV Last administered on 06/19/16 04:55; Start 06/16/16 at 18:00; Stop 06/19/16 at 10:13; Status DC Miscellaneous Information SPECIFIC LAB TO BE VIKRAM... ONCE ONCE XX Last administered on 06/19/16 05:15; Start 06/19/16 at 05:45; Stop 06/19/16 at 05:46; Status DC Acyclovir (Zovirax) 400 mg DAILY PO Last administered on 06/22/16 08:42; Start 06/17/16 at 09:00; Status Hold Diphenhydramine HCl (Benadryl) 25 mg NOW ONCE PO ; Start 06/16/16 at 14:15; Stop 06/16/16 at 14:16; Status DC Diphenhydramine HCl 25 mg 25 mg Q8H PRN PO ITCHING; Start 06/16/16 at 14:15 Sodium Chloride (NS 1000 ml Inj) 1,000 ml @ 84 mls/hr [id number] IV Last administered on 06/17/16 03:09; Start 06/16/16 at 14:30; Stop 06/17/16 at 08:52 ; Status DC Pantoprazole Sodium (Protonix) 20 mg DAILY PO Last administered on 06/22/16 08: 41; Start 06/17/16 at 09:00; Status Hold Diphenoxylate HCl/ Atropine 1 tab 1 tab NOW ONCE PO Last administered on 16:24; Start 06/17/16 at 15:45; Stop 06/17/16 at 15:46; Status DC Vancomycin HCl/ Sodium Chloride (Vancomycin Inj/ NS 250 ml Inj) 262.5 ml @ 250 mls/hr Q12H IV Last administered on 06/22/16 06:13; Start 06/20/16 at 06:00; Status Hold Miscellaneous Information SPECIFIC LAB TO BE DRAWN:VANCOMYCIN TROUGH DATE TO... ONCE ONCE XX Last administered on 06/22/16 06:11; Start 06/22/16 at 05:45; Stop 06/22/16 at 05:46; Status DC Diphenoxylate HCl/ Atropine (Lomotil Tab) 1 tab Q6H PRN PO LOOSE STOOL Last administered on 06/21/16 09:33; Start 06/20/16 at 07:45 Cyanocobalamin 1000 mcg 1,000 mcg ONCE ONCE IM Last administered on 06/22/16 10:05; Start 06/22/16 at 10:00; Stop 06/22/16 at 10:03; Status DC Sodium Chloride (NS 250 ml Inj) 250 ml @ 15 mls/hr ONCE ONCE IV Last administered on 06/22/16 13:20; Start 06/22/16 at 10:15; Stop 06/23/16 at 02:54; Status DC Acetaminophen (Tylenol) 650 mg Q4H PRN PO SEE LABEL COMMENTS Last administered on 06/22/16 13:18; Start 06/22/16 at 10:15; Stop 06/22/16 at 14:16; Status DC Diphenhydramine HCl (Benadryl) 25 mg Q4H PRN PO SEE LABEL COMMENTS Last administered on 06/22/16 13:17; Start 06/22/16 at 10:15; Stop 06/22/16 at 14:16; Status DC A/P Assessment and Plan A/P (1) AML (acute myeloid leukemia) Plan: As shown on bone marrow biopsy. Medical oncology consulted and following. Status post port placement 05/23. Chemotherapy started 05/27. Hemoglobin/ PLT being monitored; transfuse with PRBC/platelet as needed per oncology. Continue with neutropenic precautions. Patient is status post bone marrow biopsy on 06/13, pathology with negative for AML. hematology/oncology following. (2) Neutropenic fever- now fever has resolved. Plan: UA positive for Klebsiella pneumonia. Patient's C. difficile negative. ID consulted. Vanco and Acycolvir on hold due to persistent neutropenia will consider neupogen if leukopenia persists. (3) Pancytopenia Plan: Pancytopenia likely secondary to chemotherapy given for AML treatment. PLT and H/H improving-- Continue to monitor CBC and follow up oncology recommendations. (4) UTI (urinary tract infection) Plan: Continue antibiotics as above and as per ID recommendations. Urine culture grew Klebsiella pneumonia. (5) GI bleed Plan: GI bleed now resolved. Patient had some episodes of rectal bleeding. s/p EGD and colonoscopy with gastritis and rectal ulcer. continue PPI. (6) Anxiety Plan: Continue Valium as needed. seems stable. (7) Diarrhea repeat C diff negative. lomotil as needed. (8) Dizziness Plan: CT head ordered by oncology 06/10 - No acute disease. Dizziness has now resolved. DVT prophylaxis: SCDs, no chemoprophylaxis given thrombocytopenia. Discharge Planning when cleared by oncology. Elma Feliz MD Jun 23, 2016 08:03
[2016-06-23 08:11] LABS: CORRECTED NUCLEATED RBC 2 /100 WBC (0-0); METAMYELOCYTES 2 % (0-1); NEUTROPHIL # MANUAL DIFF 0.1 TH/MM3 (1.8-7.7); PLATELET ESTIMATE SMEAR NORMAL (NORMAL); PLATELET MORPHOLOGY NORMAL (NORMAL); POLYS (SEG NEUTROPHILS) 8 % (16-70); SCAN/DIFF FINAL DIFF MANUAL; WBC DIFF SAMPLE 50
[2016-06-23] MEDS: SODIUM CHLORIDE 0.9% FLUSH 5 ML FLUSH IV SCH ×2 (08:20→19:07)
[2016-06-23] MEDS: POTASSIUM CHLORIDE 10 MEQ CAP PO SCH (08:20)
[2016-06-23] MEDS: GABAPENTIN 300 MG CAP PO SCH ×3 (08:20→17:36)
[2016-06-23] MEDS: FUROSEMIDE 20 MG TAB PO SCH (08:20)
[2016-06-23] MEDS: DIAZEPAM 10 MG TAB PO SCH ×2 (08:20→20:59)
[2016-06-23] MEDS: SODIUM CHLORIDE 0.9% FLUSH 5 ML FLUSH IVF SCH (08:22)
[2016-06-23 10:12] LABS: ALKALINE PHOSPHATASE 63 U/L (45-117); ALT (GPT) 26 U/L (10-53); ANION GAP 5 MEQ/L (5-15); AST (GOT) 18 U/L (15-37); BICARBONATE 31.2 MEQ/L (21.0-32.0); BLOOD UREA NITROGEN 8 MG/DL (7-18); CHLORIDE 103 MEQ/L (98-107); GLOMERULAR FILTRATION RATE 84 ML/MIN (>89); MAGNESIUM 2.2 MG/DL (1.5-2.5); SODIUM (NA) 139 MEQ/L (136-145); TOTAL BILIRUBIN ADULT 0.3 MG/DL (0.2-1.0)
--- NOTE | 2016-06-23 11:43 | PD.ONC.PN ---
Subjective Subjective Remarks Afebrile overnight. patient resting comfortably. No diarrhea overnight. No abdominal pain. No vomiting. Feels tired today. Objective Data Date Time Temp Pulse Resp B/P Pulse Ox O2 Delivery O2 Flow Rate FiO2 06/23/16 07:50 97.7 108 20 126/58 94 06/23/16 04:00 99.6 88 18 113/55 92 06/23/16 00:20 96.8 80 16 107/54 94 06/22/16 20:00 98.3 79 18 119/58 93 06/22/16 16:00 98.7 78 20 117/55 97 06/22/16 14:01 99.1 82 20 105/51 98 06/22/16 13:48 97.8 88 20 116/53 98 06/22/16 13:40 97.8 88 20 116/53 98 Result Diagram: 06/23/16 0350 06/23/16 0830 Laboratory Results Laboratory Tests Test 06/23/16 06/23/16 03:50 08:30 White Blood Count 0.8 TH/MM3 Red Blood Count 2.74 MIL/MM3 Hemoglobin 8.4 GM/DL Hematocrit 23.9 % Mean Corpuscular Volume 87.2 FL Mean Corpuscular Hemoglobin 30.6 PG Mean Corpuscular Hemoglobin 35.1 % Concent Red Cell Distribution Width 13.0 % Platelet Count 175 TH/MM3 Mean Platelet Volume 8.8 FL Neutrophils (%) (Auto) % Lymphocytes (%) (Auto) % Monocytes (%) (Auto) % Eosinophils (%) (Auto) % Basophils (%) (Auto) % Neutrophils # (Auto) TH/MM3 Lymphocytes # (Auto) TH/MM3 Monocytes # (Auto) TH/MM3 Eosinophils # (Auto) TH/MM3 Basophils # (Auto) TH/MM3 CBC Comment AUTO DIFF Differential Total Cells 50 Counted Neutrophils % (Manual) 8 % Lymphocytes % 88 % Monocytes % 2 % Neutrophils # (Manual) 0.1 TH/MM3 Metamyelocytes 2 % Nucleated Red Blood Cells 2 /100 WBC Differential Comment FINAL DIFF MANUAL Platelet Estimate NORMAL Platelet Morphology Comment NORMAL Red Cell Morphology Comment NORMAL Sodium Level 139 MEQ/L Potassium Level 4.0 MEQ/L Chloride Level 103 MEQ/L Carbon Dioxide Level 31.2 MEQ/L Anion Gap 5 MEQ/L Blood Urea Nitrogen 8 MG/DL Creatinine 0.71 MG/DL Estimat Glomerular Filtration 84 ML/MIN Rate Random Glucose 96 MG/DL Calcium Level 8.9 MG/DL Phosphorus Level 3.3 MG/DL Magnesium Level 2.2 MG/DL Total Bilirubin 0.3 MG/DL Aspartate Amino Transf 18 U/L (AST/SGOT) Alanine Aminotransferase 26 U/L (ALT/SGPT) Alkaline Phosphatase 63 U/L Total Protein 7.0 GM/DL Albumin 2.7 GM/DL Administered Medications Medications (Trade) Dose Ordered Sig/Prashant Route PRN Reason Start Time Stop Time Status Last Admin Dose Admin Carisoprodol (Soma) 350 mg TID PRN PO PAIN 05/16/16 17:30 06/22/16 01:21 Furosemide (Lasix) 20 mg DAILY PO 05/17/16 09:00 06/23/16 08:20 Gabapentin (Neurontin) 300 mg TID PO 05/16/16 18:00 06/23/16 08:20 Levothyroxine Sodium (Synthroid) 25 mcg DAILY@06 PO 05/17/16 06:00 06/23/16 05:38 Potassium Chloride (KCl) 10 meq DAILY PO 05/17/16 09:00 06/23/16 08:20 Famotidine (Pepcid) 20 mg BID PO 05/16/16 21:00 Hold 06/22/16 08:41 IV Flush (NS Flush) 2 ml UNSCH PRN IV FLUSH AFTER USING IV ACCESS 05/16/16 17:45 06/23/16 03:46 IV Flush (NS Flush) 2 ml BID IV 05/16/16 21:00 06/23/16 08:20 Ondansetron HCl (Zofran Inj) 4 mg Q6H PRN IV NAUSEA 05/16/16 17:45 06/17/16 21:06 Acetaminophen (Tylenol) 650 mg Q6HR PRN PO headache 05/17/16 06:30 06/16/16 12:08 Oxycodone/ Acetaminophen (Percocet 5-325 Mg) 1 tab Q4H PRN PO pain 1-5 05/20/16 10:00 06/14/16 11:36 Oxycodone HCl (Roxicodone) 10 mg Q4H PRN PO pain 6-10 05/21/16 16:00 06/23/16 08:21 IV Flush (NS Flush) DAILY IVF 05/24/16 09:00 06/23/16 08:22 Heparin Sodium (Porcine) (Heparin Central Flush) DAILY IVF 05/24/16 09:00 06/23/16 08:22 IV Flush (NS Flush) UNSCH PRN IVF SEE PROTOCOL 05/23/16 15:30 06/23/16 03:46 Heparin Sodium (Porcine) (Heparin Central Flush) UNSCH PRN IVF SEE PROTOCOL 05/23/16 15:30 06/23/16 03:46 Docusate Sodium (Colace) 100 mg BID PO 05/24/16 11:00 Hold 06/05/16 07:58 Morphine Sulfate (Morphine Inj) 2 mg Q2HR PRN IV PUSH SEVERE BREAKTHROUGH PAIN 05/27/16 08:45 06/22/16 13:20 Diazepam (Valium) 10 mg Q12HR PO 05/28/16 09:00 06/23/16 08:20 Temazepam 15 mg 15 mg HS PRN PO SLEEP 05/28/16 08:00 06/01/16 22:23 Cefepime HCl 2000 mg/Sodium Chloride 100 ml @ 200 mls/hr Q8H IV 06/05/16 18:00 06/23/16 08:21 Micafungin Sodium/ Sodium Chloride (Mycamine Inj/NS Inj) 100 ml @ 100 mls/hr Q24H IV 06/10/16 16:00 06/22/16 16:21 Potassium Phos/ Sodium Phos (K-Phos Neutral) 250 mg Q6HR PO 06/12/16 12:00 06/23/16 05:39 Acyclovir (Zovirax) 400 mg DAILY PO 06/17/16 09:00 Hold 06/22/16 08:42 Pantoprazole Sodium 20 mg 20 mg DAILY PO 06/17/16 09:00 Hold 06/22/16 08:41 Vancomycin HCl/ Sodium Chloride (Vancomycin Inj/ NS 250 ml Inj) 262.5 ml @ 250 mls/hr Q12H IV 06/20/16 06:00 Hold 06/22/16 06:13 Diphenoxylate HCl/ Atropine (Lomotil Tab) 1 tab Q6H PRN PO LOOSE STOOL 06/20/16 07:45 06/21/16 09:33 Objective Remarks GENERAL: Middle aged female, sitting up in bed in nad. SKIN: Warm and dry. huang catheter in place, no bleeding/oozing. HEAD: Normocephalic. EYES: No injection or drainage. NECK: Supple, trachea midline. CARDIOVASCULAR: Regular rate and rhythm RESPIRATORY: Breath sounds equal bilaterally. No accessory muscle use. GASTROINTESTINAL: Abdomen soft, non-tender, nondistended. EXTREMITIES: No cyanosis. NEUROLOGICAL: No obvious focal deficit. Awake, alert, and oriented x3. Assessment/Plan Problem List: (1) AML (acute myeloid leukemia) Status: Acute Plan: 06/23/16: await recovery of bone marrow. if no improvement in WBC tomorrow , will give Neupogen 06/22/16: will give B12 injection to help enhance hematopoiesis. monitor WBC. give 1 unit pRBC for symptomatic anemia. Vanco placed on hold. 06/21/16: awaiting WBC recovery. platelets continuing to improve. 06/20/16: D25. slight bump in WBC. platelets improving. 06/19/16: D24. Platelet counts starting to improve. Continue to wait for white cells to recover. Pt doing very well clinically. 06/18/16: D23. Doing well. We will await counts to improve/ bone marrow recovery. Absolute neutrophil count still at 0 today. 06/17/16: D22. bone marrow biopsy shows no residual leukemia. awaiting bone marrow recovery. nausea resolved. diarrhea persistent. 06/16/16: D21: waiting on bone marrow recovery. flow shows only 0.08% blasts. awaiting pathology. no diarrhea since last night. fs faxed to [facility] for follow up after discharge. 06/15/16: diarrhea worsening. suspect abx side effect. will stop allopurinol as this also may be contributing. 06/14/16: D19. no transfusion needed today. mild headache. monitor. Having some diarrhea, C. difficile negative 2. 06/13/16: D18. BMB today. no nausea. stable. 06/12/16:D17: Intermittent headache. Blood counts stable. Bone marrow biopsy tomorrow. 06/11/16: D16. Doing well today. Counts stable. Headache improved; CT brain negative. Will plan for bone marrow biopsy with IR on Thursday. 06/10/16: D15. 1 unit plts. dizzy w/ headache. CT brain pending 06/09/16:D14. 2 units pRBC today. 06/08/16: No issues overnight. Plt's are low at 11,000. Likely will drop again tomorrow, so we will transfuse x1 dose today. No bleeding. 06/07/16: Afebrile. Neutropenic precautions continue. 06/06/16: afebrile overnight. continue abx per ID. pain pump refilled. 06/05/16: spiked fever overnight. started on Cefepime. Levaquin stopped. ID consulted. CT ab/pelvis negative 06/04/16: D9. 1 unit plt 06/03/16: D8 chemo finishes late tonight. started on acyclovir/diflucan/levaquin for prophylaxis. 06/01/16: D6. nauseated. otherwise no events. continue chemo. 05/31/16:D5. no events. 05/30/16: D4 chemotherapy. no transfusion today. 05/29/16: D3 chemotherapy. Tolerated well Blood counts trending lower. Transfuse PRBC 2U. CSF cytology negative. 05/28/16: Tolerated chemo well, no significant side effect. Blood counts started to trend down. 05/27/16: D1. Abril-C + Idarubicin. AML w/ intermediate risk cytogenetics. (2) Pancytopenia Status: Acute Plan: transfuse for platelets less than 10k and a Hgb of less than 7. (3) presence of pain pump Status: Chronic Plan: --patient with intrathecal pain pump --managed by Dr. Omer outpatient --pain pump refilled on 06/06/16 Assessment 61y/o female with AML, s/p induction with ABRIL-C + KELSEA. Plan 1. monitor CBC 2. possible Neupogen tomorrow. 3. case management consult to make [facility] appointment Attending Statement The exam, history, and the medical decision-making described in the above note were completed with the assistance of the mid-level provider. I reviewed and agree with the findings presented. I attest that I had a [id number] encounter with the patient on the same day, and personally performed and documented my assessment and findings in the medical record. Diarrhea improved. Platelet has recovered. Still has neutropenia. Consider neupogen tomorrow if no sign of WBC recovery. Problem Qualifiers (1) AML (acute myeloid leukemia): Qualified Code: C92.00 - Acute myeloid leukemia not having achieved remission Radha Lawrence Jun 23, 2016 11:43 Ryan Tripp MD Jun 23, 2016 17:02
[2016-06-23 11:50] VITALS: BP 99/56; PULSE 90; RESP 20; TEMP 98.3; O2SAT 95
[2016-06-23 15:50] VITALS: BP 121/58; PULSE 80; RESP 20; TEMP 98.2; O2SAT 95
[2016-06-23] MEDS: MICAFUNGIN INJ 100 MG in SODIUM CHLORIDE 0.9% INJ 100 ML IV SCH (16:16)
[2016-06-23] MEDS: MORPHINE SULFATE 4 MG/ML INJ IV PUSH PRN (19:07)
[2016-06-23 20:00] VITALS: BP 121/65; PULSE 104; RESP 18; TEMP 98.5; O2SAT 94
[2016-06-24] VITALS: BP 112/54; PULSE 108; RESP 18; TEMP 98.6; O2SAT 95
[2016-06-24] MEDS: LACTATED RINGER'S 1000 ML IV SCH (01:15)
[2016-06-24] MEDS: CEFEPIME INJ 2,000 MG in SODIUM CHLORIDE 0.9% INJ 100 ML IV SCH ×3 (01:16→17:31)
[2016-06-24] MEDS: SODIUM CHLORIDE 0.9% FLUSH 5 ML FLUSH IVF PRN (03:06)
[2016-06-24 04:00] VITALS: BP 118/62; PULSE 108; RESP 17; TEMP 97.1; O2SAT 94
[2016-06-24] MEDS: LEVOTHYROXINE SODIUM 25 MCG TAB PO SCH (05:10)
[2016-06-24] MEDS: POTASSIUM PHOSPHATE/SODIUM PHOSPHATE 250 MG TAB PO SCH ×3 (05:10→17:31)
[2016-06-24 05:28] LABS: HEMATOCRIT 26.6 % (35.0-46.0); MEAN CELL VOLUME 88.5 FL (80.0-100.0); MEAN CORPUSCULAR HEMOGLOBIN 30.1 PG (27.0-34.0); PLATELET COUNT 278 TH/MM3 (150-450); RED BLOOD COUNT 3.01 MIL/MM3 (4.00-5.30); RED CELL DISTRIBUTION WIDTH 12.9 % (11.6-17.2); WHITE BLOOD COUNT 1.1 TH/MM3 (4.0-11.0)
[2016-06-24 05:34] LABS: HEMO FLAGS AUTO DIFF
[2016-06-24 07:12] LABS: BANDS 1 % (0-6); CORRECTED NUCLEATED RBC 3 /100 WBC (0-0); EOSINOPHILS 1 % (0-4); NEUTROPHIL # MANUAL DIFF 0.1 TH/MM3 (1.8-7.7); PLATELET ESTIMATE SMEAR NORMAL (NORMAL); PLATELET MORPHOLOGY NORMAL (NORMAL); POLYS (SEG NEUTROPHILS) 9 % (16-70); SCAN/DIFF FINAL DIFF MANUAL; WBC DIFF SAMPLE 100
[2016-06-24 08:00] VITALS: BP 118/58; PULSE 69; RESP 16; TEMP 99.2; O2SAT 93
[2016-06-24] MEDS: POTASSIUM CHLORIDE 10 MEQ CAP PO SCH (08:36)
[2016-06-24] MEDS: SODIUM CHLORIDE 0.9% FLUSH 5 ML FLUSH IV SCH ×2 (08:36→21:00)
[2016-06-24] MEDS: FUROSEMIDE 20 MG TAB PO SCH (08:36)
[2016-06-24] MEDS: GABAPENTIN 300 MG CAP PO SCH ×3 (08:36→17:31)
[2016-06-24] MEDS: SODIUM CHLORIDE 0.9% FLUSH 5 ML FLUSH IVF SCH (08:37)
[2016-06-24] MEDS: DIAZEPAM 10 MG TAB PO SCH ×2 (08:38→20:48)
--- NOTE | 2016-06-24 08:40 | HHI.PR ---
Subjective Remarks in no acute distress. no fever. no new complaints. Objective Vitals Vital Signs Date Time Temp Pulse Resp B/P Pulse Ox O2 Delivery O2 Flow Rate FiO2 06/24/16 04:00 97.1 108 17 118/62 94 06/24/16 00:00 98.6 108 18 112/54 95 06/23/16 20:00 98.5 104 18 121/65 94 06/23/16 15:50 98.2 80 20 121/58 95 06/23/16 11:50 98.3 90 20 99/56 95 I/O 06/23/16 06/23/16 06/23/16 06/24/16 06/24/16 06/24/16 07:00 15:00 23:00 07:00 15:00 23:00 Intake Total 590 ml 595 ml Balance 590 ml 595 ml Intake Oral 480 ml 480 ml IV Total 110 ml 115 ml # Voids 3 10 2 # Bowel Movements 0 Result Diagram: 06/24/16 0300 06/24/16 0300 Imaging Last Impressions Bone Biopsy CT 06/13/16 0000 Signed Impressions: Service Date/Time: Monday, June 13, 2016 08:35 - CONCLUSION: 1. Uncomplicated CT guided bone marrow aspirate. 2. Uncomplicated CT guided bone marrow biopsy. Juan Carlos Cherry MD FACR Head CT 06/10/16 0000 Signed Impressions: Service Date/Time: Friday, June 10, 2016 14:56 - CONCLUSION: Stable noncontrast head CT. No acute intracranial abnormality is identified. Bravo Jackman MD Abdomen/Pelvis CT 06/05/16 0000 Signed Impressions: Service Date/Time: May 22:13 - CONCLUSION: Minimal fluid in the pelvis, otherwise unremarkable. Cynthia Guardado MD Chest X-Ray 06/04/16 0000 Signed Impressions: Service Date/Time: Saturday, June 04, 2016 21:23 - CONCLUSION: No acute disease. Kilo Cotto MD Lumbar Puncture Fluoroscopy 05/23/16 0000 Signed Impressions: Service Date/Time: Monday, May 23, 2016 14:16 - CONCLUSION: Uncomplicated fluoroscopically guided lumbar puncture. Bubba Cherry MD Catheter Placement X-Ray 05/23/16 0000 Signed Impressions: Service Date/Time: Monday, May 23, 2016 14:16 - CONCLUSION: Uncomplicated Donaldson catheter placement as above. Bubba Cherry MD Chest CT 05/17/16 0000 Signed Impressions: Service Date/Time: Tuesday, May 17, 2016 15:14 - CONCLUSION: 1. 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 There are trace to very small bilateral pleural effusions and mild cardiomegaly noted. 2. No lobar consolidation. 3. Upper limits of normal to mildly enlarged mediastinal and bilateral hilar lymph nodes, nonspecific but presumably reactive. Bravo Mendez MD Objective Remarks GENERAL: This is a well-nourished, well-developed patient, in no apparent distress. CARDIOVASCULAR: Regular rate and regular rhythm without murmurs, gallops, or rubs. RESPIRATORY: Clear to auscultation. Breath sounds equal bilaterally. No wheezes , rales, or rhonchi. GASTROINTESTINAL: Abdomen soft, non-tender, nondistended. Normal, active bowel sounds MUSCULOSKELETAL: Extremities without clubbing, cyanosis, or edema. NEURO: Alert & Oriented x4 to person, place, time, situation. Moves all ext x4 Procedures EGD/ colonoscopy Bone marrow biopsy Medications and IVs Current Medications Sodium Chloride (NS 1000 ml Inj) 1,000 ml @ 1,000 mls/hr Q1H IV Last administered on 05/16/16at 15:22; Start 05/16/16 at 14:49; Stop 05/16/16 at 15 :48; Status DC IV Flush (NS Flush) 2 ml UNSCH PRN IVF FLUSH AFTER USING IV ACCESS Last administered on 05/16/16 16:58; Start 05/16/16 at 15:00; Stop 05/16/16 at 17 :36; Status DC Pantoprazole Sodium (Protonix Inj) 40 mg ONCE ONCE IV PUSH Last administered on 05/16/16 16:57; Start 05/16/16 at 16:45; Stop 05/16/16 at 16:46; Status DC Carisoprodol (Soma) 350 mg TID PRN PO PAIN Last administered on 06/22/16 01:21 ; Start 05/16/16 at 17:30 Furosemide (Lasix) 20 mg DAILY PO Last administered on 06/23/16 08:20; Start 05/17/16 at 09:00 Gabapentin (Neurontin) 300 mg TID PO Last administered on 06/23/16 17:36; Start 05/16/16 at 18:00 Levothyroxine Sodium (Synthroid) 25 mcg DAILY@06 PO Last administered on 05:10; Start 05/17/16 at 06:00 Potassium Chloride (KCl) 10 meq DAILY PO Last administered on 06/23/16 08:20; Start 05/17/16 at 09:00 Famotidine 20 mg 20 mg BID PO Last administered on 06/22/16 08:41; Start 05/16 at 21:00; Status Hold Sodium Chloride (NS 1000 ml Inj) 1,000 ml @ 75 mls/hr [id number] IV Last administered on 05/16/16at 17:59; Start 05/16/16 at 17:31; Stop 05/17/16 at 06 :50; Status DC IV Flush (NS Flush) 2 ml UNSCH PRN IV FLUSH AFTER USING IV ACCESS Last administered on 06/23/16 19:08; Start 05/16/16 at 17:45 IV Flush (NS Flush) 2 ml BID IV Last administered on 06/23/16 19:07; Start at 21:00 Ondansetron HCl (Zofran Inj) 4 mg Q6H PRN IV NAUSEA Last administered on 21:06; Start 05/16/16 at 17:45 Pantoprazole Sodium (Protonix Inj) 40 mg Q24H IV PUSH Last administered on 08:42; Start 05/17/16 at 09:00; Stop 05/21/16 at 14:52; Status DC Influenza Virus Vaccine (Flu (Quadrivalent) Vaccine Inj) 0.5 ml ONCE ONCE IM Last administered on 05/17/16at 11:51; Start 05/17/16 at 10:00; Stop 05/17/16 at 10:01; Status DC Acetaminophen (Tylenol) 650 mg Q6HR PRN PO headache Last administered on 12:08; Start 05/17/16 at 06:30 Diatrizoate Meglum/ Diatrizoate Sod ( Gastroview Liq) 18 ml ONCE ONCE PO Last administered on 05/17/16at 11:49; Start 05/17/16 at 11:15; Stop 05/17/16 at 11:16; Status DC Iohexol (Omnipaque 350 Inj) 75 ml STK-MED ONCE IV Last administered on at 15:29; Start 05/17/16 at 15:29; Stop 05/17/16 at 15:30; Status DC Diazepam (Valium) 10 mg Q12HR PO Last administered on 05/24/16 08:12; Start 05/18/16 at 12:00; Stop 05/24/16 at 13:36; Status DC Polyethylene Glycol/ Electrolytes 4000 ml 4,000 ml ONCE ONCE PO Last administered on 05/19/16 16:34; Start 05/19/16 at 16:00; Stop 05/19/16 at 16:01; Status DC Lactated Ringer's (Lr 1000 ml Inj) 1,000 ml @ 30 mls/hr Q24H IV ; Start at 01:15 Acetaminophen (Tylenol) 650 mg ONCE ONCE PO Last administered on 05/20/16 05: 00; Start 05/20/16 at 05:00; Stop 05/20/16 at 05:03; Status DC Lidocaine/ Epinephrine 20 ml 20 ml STK-MED ONCE .ROUTE Last administered on 05/20 08:36; Start 05/20/16 at 08:36; Stop 05/20/16 at 08:49; Status DC Sodium Bicarbonate (Sodium Bicarbonate 8.4% Inj) 50 ml @ As Directed STK-MED ONCE .ROUTE Last administered on 05/20/16 08:36; Start 05/20/16 at 08:36; Stop 05/20/16 at 08:50; Status DC Fentanyl Citrate (fentaNYL INJ) 250 mcg STK-MED ONCE .ROUTE Last administered on 05/20/16 08:43; Start 05/20/16 at 08:43; Stop 05/20/16 at 08:51; Status DC Midazolam HCl (Versed Inj) 5 mg STK-MED ONCE .ROUTE Last administered on 08:43; Start 05/20/16 at 08:43; Stop 05/20/16 at 08:51; Status DC Oxycodone/ Acetaminophen (Percocet 5-325 Mg) 1 tab Q4H PRN PO pain 1-5 Last administered on 06/14/16 11:36; Start 05/20/16 at 10:00 Propofol (Diprivan 200 Mg/20 ml Inj) 310 mg STK-MED ONCE IV ; Start 05/20/16 at 12:55; Stop 05/20/16 at 13:30; Status DC Mesalamine (Canasa Supp) 1,000 mg HS RECTAL ; Start 05/20/16 at 21:00; Status Hold Pantoprazole Sodium (Protonix) 40 mg DAILY PO Last administered on 06/17/16 08 :07; Start 05/22/16 at 09:00; Stop 06/17/16 at 08:57; Status DC Oxycodone HCl (Roxicodone) 10 mg Q4H PRN PO pain 6-10 Last administered on 05:12; Start 05/21/16 at 16:00 Acetaminophen/ Butalbital/ Caffeine 1 tab 1 tab ONCE ONCE PO Last administered on 05/21/16 17:42; Start 05/21/16 at 16:00; Stop 05/21/16 at 16:04; Status DC Vancomycin HCl 1000 mg/Sodium Chloride 250 ml @ 250 mls/hr [employer] IV Last administered on 05/23/16 13:00; Start 05/22/16 at 16:45; Stop 05/26/16 at 16:44; Status DC Cefazolin Sodium/ Dextrose (Ancef 2 Gm Premix) 50 ml @ 100 mls/hr [facility] IV ; Start 05/22/16 at 18:00; Stop 05/26/16 at 17:59; Status DC Bisacodyl (Dulcolax Supp) 10 mg DAILY PRN CA CONSTIPATION Last administered on 05/22/16 22:31; Start 05/22/16 at 22:15; Stop 05/24/16 at 10:23; Status DC Sodium Biphosphate/ Sodium Phosphate (Fleets Enema (Adult)) 133 ml ONCE PRN CA constipation; Start 05/22/16 at 22:15; Stop 05/23/16 at 22:14; Status Cancel Midazolam HCl (Versed Inj) 5 mg STK-MED ONCE .ROUTE Last administered on 13:44; Start 05/23/16 at 13:44; Stop 05/23/16 at 13:45; Status DC Fentanyl Citrate (fentaNYL INJ) 250 mcg STK-MED ONCE .ROUTE Last administered on 05/23/16 13:44; Start 05/23/16 at 13:44; Stop 05/23/16 at 13:45; Status DC Heparin Sodium (Porcine) (*HEPARIN CENTRAL FLUSH PERIprocedural ONLY) 500 units STK-MED ONCE .ROUTE Last administered on 05/23/16 15:20; Start 05/23/16 at 14:30 ; Stop 05/23/16 at 14:31; Status DC Lidocaine/ Epinephrine (Xylocaine-Epi 1%-1:100,000 Inj) 20 ml STK-MED ONCE .ROUTE Last administered on 05/23/16 15:02; Start 05/23/16 at 14:30; Stop at 14:31; Status DC Midazolam HCl (Versed Inj) 5 mg STK-MED ONCE .ROUTE Last administered on 15:10; Start 05/23/16 at 15:10; Stop 05/23/16 at 15:11; Status DC Fentanyl Citrate 250 mcg 250 mcg STK-MED ONCE .ROUTE Last administered on 15:10; Start 05/23/16 at 15:10; Stop 05/23/16 at 15:11; Status DC Ceftriaxone Sodium/Sodium Chloride (Rocephin Inj/NS Inj) 100 ml @ 200 mls/hr Q24H IV Last administered on 05/30/16 17:19; Start 05/23/16 at 16:00; Stop at 09:52; Status DC IV Flush (NS Flush) DAILY IVF Last administered on 06/23/16 08:22; Start at 09:00 Heparin Sodium (Porcine) (Heparin Central Flush) DAILY IVF Last administered on 06/23/16 08:22; Start 05/24/16 at 09:00 IV Flush (NS Flush) UNSCH PRN IVF SEE PROTOCOL Last administered on 06/24/16 03:06; Start 05/23/16 at 15:30 Heparin Sodium (Porcine) (Heparin Central Flush) UNSCH PRN IVF SEE PROTOCOL Last administered on 06/24/16 03:05; Start 05/23/16 at 15:30 Docusate Sodium (Colace) 100 mg BID PO Last administered on 06/05/16 07:58; Start 05/24/16 at 11:00; Status Hold Lactulose (Lactulose Liq) 30 ml ONCE ONCE PO Last administered on 05/24/16 12: 15; Start 05/24/16 at 10:30; Stop 05/24/16 at 10:31; Status DC Lorazepam (Ativan) 1 mg Q4HR PRN PO anxiety Last administered on 05/24/16 22:38 ; Start 05/24/16 at 13:45; Stop 05/25/16 at 09:00; Status DC Lorazepam (Ativan) 1 mg ONCE ONCE PO Last administered on 05/24/16 14:27; Start 05/24/16 at 13:45; Stop 05/24/16 at 13:46; Status DC Lorazepam (Ativan) 2 mg Q6H PRN PO anxiety Last administered on 05/27/16 07:35 ; Start 05/25/16 at 08:59; Stop 05/28/16 at 08:03; Status DC Lactulose (Lactulose Liq) 30 ml QID PO Last administered on 05/25/16 20:06; Start 05/25/16 at 13:00; Stop 05/25/16 at 21:01; Status DC Polyethylene Glycol (Miralax) 17 gm DAILY PO Last administered on 06/04/16 08: 27; Start 05/25/16 at 14:30; Stop 06/15/16 at 10:54; Status DC Lactic Acid (Lac-Hydrin 12% Lotion) 1 applic BID PRN TOPICAL irritation; Start 05/25/16 at 14:30 Sumatriptan Succinate 25 mg 25 mg ONCE ONCE PO Last administered on 05/25/16 20:06; Start 05/25/16 at 19:45; Stop 05/25/16 at 19:47; Status DC Sodium Chloride (NS 1000 ml Inj) 1,000 ml @ 100 mls/hr Q10H IV Last administered on 06/15/16 10:35; Start 05/26/16 at 09:30; Stop 06/15/16 at 10:54 ; Status DC Allopurinol (Zyloprim) 300 mg DAILY PO Last administered on 06/15/16 08:04; Start 05/26/16 at 09:30; Stop 06/15/16 at 10:19; Status DC Morphine Sulfate 2 mg 2 mg ONCE ONCE IV PUSH Last administered on 05/26/16 10: 46; Start 05/26/16 at 10:30; Stop 05/26/16 at 10:31; Status DC Idarubicin HCl 22.6 mg/Sodium Chloride 122.6 ml @ 490.4 mls/ hr Q24H IV ; Start 05/26/16 at 16:00; Stop 05/26/16 at 17:07; Status DC Granisetron HCl 1 mg/Dexamethasone Sodium Phosphate 20 mg/Sodium Chloride 56 ml @ 336 mls/hr Q24H IV ; Start 05/26/16 at 15:30; Stop 05/26/16 at 17:09; Status DC Cytarabine 189 mg/ Sodium Chloride 500 ml @ 20.833 mls/ hr Q24H IV ; Start 05/26 at 17:00; Stop 05/26/16 at 17:08; Status DC Idarubicin HCl 22.6 mg/Sodium Chloride 122.6 ml @ 490.4 mls/ hr Q24H IV Last administered on 05/29/16 09:00; Start 05/27/16 at 09:00; Stop 05/29/16 at 09:14 ; Status DC Cytarabine 189 mg/ Sodium Chloride 500 ml @ 20.833 mls/ hr Q24H IV Last administered on 06/03/16 04:14; Start 05/27/16 at 10:00; Stop 06/03/16 at 09:59 ; Status DC Granisetron HCl/ Dexamethasone Sodium Phosphate/ Sodium Chloride (Kytril Inj/ Decadron Inj/NS Inj) 56 ml @ 336 mls/hr Q24H IV Last administered on 22:22; Start 05/27/16 at 08:30; Stop 06/02/16 at 08:39; Status DC Morphine Sulfate (Morphine Inj) 2 mg Q2HR PRN IV PUSH SEVERE BREAKTHROUGH PAIN Last administered on 06/23/16 19:07; Start 05/27/16 at 08:45 Lactulose (Lactulose Liq) 30 ml DAILY PO Last administered on 06/05/16 07:57; Start 05/27/16 at 09:00; Stop 06/15/16 at 10:54; Status DC Diazepam (Valium) 10 mg Q12HR PO Last administered on 06/23/16 20:59; Start 04/03 at 09:00 Temazepam 15 mg 15 mg HS PRN PO SLEEP Last administered on 06/01/16 22:23; Start 05/28/16 at 08:00 Sodium Chloride (NS 250 ml Inj) 250 ml @ 15 mls/hr ONCE ONCE IV Last administered on 05/29/16 14:07; Start 05/29/16 at 08:00; Stop 05/30/16 at 00:39 ; Status DC Acetaminophen (Tylenol) 650 mg Q4H PRN PO SEE LABEL COMMENTS; Start 05/29/16 at 08:00; Stop 05/29/16 at 12:01; Status DC Diphenhydramine HCl (Benadryl) 25 mg Q4H PRN PO SEE LABEL COMMENTS; Start 05/29 at 08:00; Stop 05/29/16 at 12:01; Status DC Diphenhydramine HCl (Benadryl) 25 mg Q4H PRN PO SEE LABEL COMMENTS Last administered on 05/29/16 12:54; Start 05/29/16 at 13:00; Stop 05/29/16 at 17:01 ; Status DC Acetaminophen (Tylenol) 650 mg Q4H PRN PO SEE LABEL COMMENTS Last administered on 05/29/16 12:54; Start 05/29/16 at 13:00; Stop 05/29/16 at 17:01; Status DC Diphenhydramine HCl (Benadryl) 25 mg Q4H PRN PO SEE LABEL COMMENTS Last administered on 05/29/16 21:21; Start 05/29/16 at 21:15; Stop 05/30/16 at 01:16 ; Status DC Multi-Ingredient Mouthwash/Gargle (Magic Mouthwash Adult Liq) 5 ml QID SWISH- SWAL Last administered on 06/11/16 08:45; Start 06/03/16 at 09:00; Stop at 12:03; Status DC Acyclovir (Zovirax) 400 mg Q8HR PO Last administered on 06/16/16 05:44; Start 06/03/16 at 14:00; Stop 06/16/16 at 13:56; Status DC Fluconazole (Diflucan) 200 mg DAILY PO Last administered on 06/10/16 09:22; Start 06/03/16 at 09:00; Stop 06/10/16 at 15:16; Status DC Levofloxacin 250 mg 250 mg DAILY@11 PO Last administered on 06/04/16 11:27; Start 06/03/16 at 11:00; Stop 06/05/16 at 07:46; Status DC Sodium Chloride (NS 250 ml Inj) 250 ml @ 15 mls/hr ONCE ONCE IV ; Start at 09:00; Stop 06/05/16 at 01:39; Status DC Acetaminophen (Tylenol) 650 mg Q4H PRN PO SEE LABEL COMMENTS Last administered on 06/04/16 11:27; Start 06/04/16 at 09:00; Stop 06/04/16 at 13:01; Status DC Diphenhydramine HCl 25 mg 25 mg Q4H PRN PO SEE LABEL COMMENTS Last administered on 06/04/16 11:27; Start 06/04/16 at 09:00; Stop 06/04/16 at 13:01 ; Status DC Cefepime HCl/ Sodium Chloride (Maxipime Inj/NS Inj) 100 ml @ 200 mls/hr Q12H IV Last administered on 06/05/16 10:41; Start 06/04/16 at 22:00; Stop at 13:37; Status DC Diatrizoate Meglum/ Diatrizoate Sod 18 ml 18 ml ONCE ONCE PO Last administered on 06/05/16 13:19; Start 06/05/16 at 13:00; Stop 06/05/16 at 13:01 ; Status DC Cefepime HCl/ Sodium Chloride (Maxipime Inj/NS Inj) 100 ml @ 200 mls/hr Q8H IV Last administered on 06/24/16 01:16; Start 06/05/16 at 18:00 Azithromycin 500 mg 500 mg DAILY PO Last administered on 06/10/16 09:21; Start 06/05/16 at 14:00; Stop 06/10/16 at 15:16; Status DC Vancomycin HCl 1000 mg/Sodium Chloride 250 ml @ 250 mls/hr ONCE ONCE IV Last administered on 06/05/16 14:44; Start 06/05/16 at 14:00; Stop 06/05/16 at 14:59 ; Status DC Pharmacy Profile Note (Vancomycin Consult Pharmacy) 0 ml @ 0 mls/hr UNSCH OTHER ; Start 06/05/16 at 13:45 Metronidazole 500 mg 500 mg Q8HR PO Last administered on 06/18/16 13:42; Start 06/05/16 at 14:00; Stop 06/18/16 at 14:14; Status DC Vancomycin HCl/ Sodium Chloride (Vancomycin Inj/ NS 250 ml Inj) 262.5 ml @ 250 mls/hr Q12H IV Last administered on 06/10/16 01:03; Start 06/06/16 at 00:00; Stop 06/10/16 at 15:30; Status DC Miscellaneous Information SPECIFIC LAB TO BE DRAWN:VANCOMYCIN TROUGH DATE TO... ONCE ONCE XX Last administered on 06/07/16 11:45; Start 06/07/16 at 11:45; Stop 06/07/16 at 11:46; Status DC Iohexol (Omnipaque 350 Inj) 100 ml STK-MED ONCE IV Last administered on 22:20; Start 06/05/16 at 22:20; Stop 06/05/16 at 22:21; Status DC Patient Own Medication PT OWN MED: HYDROMORPHONE 40 MG/... UNSCH OTHER ; Start 06/06/16 at 11:00 Sodium Chloride (NS 250 ml Inj) 250 ml @ 15 mls/hr ONCE ONCE IV Last administered on 06/06/16 16:45; Start 06/06/16 at 12:45; Stop 06/07/16 at 05:24 ; Status DC Acetaminophen (Tylenol) 650 mg Q4H PRN PO SEE LABEL COMMENTS Last administered on 06/06/16 16:19; Start 06/06/16 at 12:45; Stop 06/06/16 at 16:46; Status DC Diphenhydramine HCl (Benadryl) 25 mg Q4H PRN PO SEE LABEL COMMENTS Last administered on 06/06/16 16:18; Start 06/06/16 at 12:45; Stop 06/06/16 at 16:46 ; Status DC Miscellaneous Information SPECIFIC LAB TO BE VIKRAM... ONCE ONCE XX Last administered on 06/08/16 13:45; Start 06/08/16 at 11:45; Stop 06/08/16 at 11:46 ; Status DC Sodium Chloride (NS 250 ml Inj) 250 ml @ 15 mls/hr ONCE ONCE IV Last administered on 06/08/16 13:00; Start 06/08/16 at 13:00; Stop 06/09/16 at 05:39 ; Status DC Diphenhydramine HCl 25 mg 25 mg Q4H PRN PO SEE LABEL COMMENTS; Start 06/08/16 at 13:00; Stop 06/08/16 at 17:01; Status DC Sodium Chloride (NS 250 ml Inj) 250 ml @ 15 mls/hr ONCE ONCE IV Last administered on 06/09/16 11:51; Start 06/09/16 at 07:30; Stop 06/10/16 at 00:09 ; Status DC Acetaminophen (Tylenol) 650 mg Q4H PRN PO SEE LABEL COMMENTS; Start 06/09/16 at 07:30; Stop 06/09/16 at 11:31; Status DC Diphenhydramine HCl (Benadryl) 25 mg Q4H PRN PO SEE LABEL COMMENTS; Start 06/09 at 07:30; Stop 06/09/16 at 11:31; Status DC Loperamide HCl 2 mg 2 mg UNSCH PRN PO DIARRHEA Last administered on 06/15/16 08:03; Start 06/09/16 at 11:15; Stop 06/15/16 at 10:54; Status DC Magnesium Sulfate/ Dextrose 100 ml @ 100 mls/hr Q1H IV Last administered on 15:35; Start 06/10/16 at 09:15; Stop 06/10/16 at 11:14; Status DC Sodium Chloride (NS 250 ml Inj) 250 ml @ 15 mls/hr ONCE ONCE IV Last administered on 06/10/16 12:26; Start 06/10/16 at 09:30; Stop 06/11/16 at 02:09 ; Status DC Acetaminophen (Tylenol) 650 mg Q4H PRN PO SEE LABEL COMMENTS Last administered on 06/10/16 10:57; Start 06/10/16 at 09:30; Stop 06/10/16 at 13:31; Status DC Diphenhydramine HCl 25 mg 25 mg Q4H PRN PO SEE LABEL COMMENTS Last administered on 06/10/16 10:57; Start 06/10/16 at 09:30; Stop 06/10/16 at 13:31 ; Status DC Micafungin Sodium 100 mg/Sodium Chloride 100 ml @ 100 mls/hr Q24H IV Last administered on 06/23/16 16:16; Start 06/10/16 at 16:00 Vancomycin HCl/ Sodium Chloride (Vancomycin Inj/ NS 500 ml Inj) 515 ml @ 250 mls/hr Q12H IV Last administered on 06/12/16 05:32; Start 06/10/16 at 18:00; Stop 06/12/16 at 09:22; Status DC Miscellaneous Information SPECIFIC LAB TO BE DRAWN:VANCOMYCIN TROUGH DATE TO... ONCE ONCE XX Last administered on 06/12/16 05:33; Start 06/12/16 at 05:45; Stop 06/12/16 at 05:46; Status DC Vancomycin HCl/ Sodium Chloride (Vancomycin Inj/ NS 500 ml Inj) 517.5 ml @ 250 mls/hr Q12H IV Last administered on 06/14/16 05:14; Start 06/12/16 at 18:00; Stop 06/14/16 at 10:10; Status DC Miscellaneous Information SPECIFIC LAB TO BE DRAWN:VANCOMYCIN TROUGH DATE TO... ONCE ONCE XX Last administered on 06/14/16 05:15; Start 06/14/16 at 05:45; Stop 06/14/16 at 05:46; Status DC Potassium Chloride (KCl) 30 meq ONCE ONCE PO Last administered on 06/12/16 13 :21; Start 06/12/16 at 09:30; Stop 06/12/16 at 09:37; Status DC Potassium Phos/ Sodium Phos (K-Phos Neutral) 250 mg Q6HR PO Last administered on 06/24/16 05:10; Start 06/12/16 at 12:00 Lidocaine/ Epinephrine (Xylocaine-Epi 1%-1:100,000 Inj) 20 ml STK-MED ONCE .ROUTE Last administered on 06/13/16 07:27; Start 06/13/16 at 07:27; Stop at 07:28; Status DC Fentanyl Citrate (fentaNYL INJ) 250 mcg STK-MED ONCE .ROUTE Last administered on 06/13/16 07:51; Start 06/13/16 at 07:51; Stop 06/13/16 at 07:52; Status DC Midazolam HCl (Versed Inj) 5 mg STK-MED ONCE .ROUTE Last administered on 07:51; Start 06/13/16 at 07:51; Stop 06/13/16 at 07:52; Status DC Thrombin (Thrombin Top Soln) 5,000 units STK-MED ONCE .ROUTE Last administered on 06/13/16 08:41; Start 06/13/16 at 08:41; Stop 06/13/16 at 08:42; Status DC Hydromorphone HCl (Dilaudid Pf Inj) 2 mg STK-MED ONCE .ROUTE Last administered on 06/13/16 08:48; Start 06/13/16 at 08:48; Stop 06/13/16 at 08:49; Status DC Gelatin 1 foam 1 foam STK-MED ONCE .XX Last administered on 06/13/16 09:33; Start 06/13/16 at 09:33; Stop 06/13/16 at 09:34; Status DC Sodium Chloride (NS 250 ml Inj) 250 ml @ 15 mls/hr ONCE ONCE IV Last administered on 06/13/16 12:48; Start 06/13/16 at 10:00; Stop 06/14/16 at 02:39 ; Status DC Acetaminophen (Tylenol) 650 mg Q4H PRN PO SEE LABEL COMMENTS; Start 06/13/16 at 10:00; Stop 06/13/16 at 14:01; Status DC Diphenhydramine HCl 25 mg 25 mg Q4H PRN PO SEE LABEL COMMENTS Last administered on 06/13/16 11:34; Start 06/13/16 at 10:00; Stop 06/13/16 at 14:01 ; Status DC Sodium Chloride (NS 250 ml Inj) 250 ml @ 15 mls/hr ONCE ONCE IV Last administered on 06/13/16 12:48; Start 06/13/16 at 12:00; Stop 06/14/16 at 04:39 ; Status DC Acetaminophen (Tylenol) 650 mg Q4H PRN PO SEE LABEL COMMENTS; Start 06/13/16 at 12:00; Stop 06/13/16 at 16:01; Status DC Diphenhydramine HCl (Benadryl) 25 mg Q4H PRN PO SEE LABEL COMMENTS; Start 06/13 at 12:00; Stop 06/13/16 at 16:01; Status DC Diphenhydramine HCl (Benadryl) 25 mg ONCE ONCE PO Last administered on 20:42; Start 06/13/16 at 21:00; Stop 06/13/16 at 21:01; Status DC Potassium Chloride 30 meq 30 meq ONCE ONCE PO Last administered on 06/14/16 10:40; Start 06/14/16 at 09:15; Stop 06/14/16 at 09:16; Status DC Vancomycin HCl/ Sodium Chloride (Vancomycin Inj/ NS 500 ml Inj) 520 ml @ 250 mls/hr Q12H IV Last administered on 06/16/16 05:44; Start 06/14/16 at 18:00; Stop 06/16/16 at 11:21; Status DC Miscellaneous Information SPECIFIC LAB TO BE VIKRAM... ONCE ONCE XX Last administered on 06/16/16 05:44; Start 06/16/16 at 05:45; Stop 06/16/16 at 05:46 ; Status DC Diphenoxylate HCl/ Atropine 1 tab 1 tab Q6H PRN PO diarrhea Last administered on 06/15/16 13:17; Start 06/15/16 at 11:00; Stop 06/16/16 at 14:33; Status DC Sodium Chloride (NS 250 ml Inj) 250 ml @ 15 mls/hr ONCE ONCE IV Last administered on 06/16/16 12:27; Start 06/16/16 at 08:30; Stop 06/17/16 at 01:09 ; Status DC Acetaminophen (Tylenol) 650 mg Q4H PRN PO SEE LABEL COMMENTS; Start 06/16/16 at 08:30; Stop 06/16/16 at 12:31; Status DC Diphenhydramine HCl (Benadryl) 25 mg Q4H PRN PO SEE LABEL COMMENTS Last administered on 06/16/16 12:08; Start 06/16/16 at 08:30; Stop 06/16/16 at 12:31 ; Status DC Simethicone 80 mg 80 mg PCHS PRN CHEW GAS RETENTION Last administered on 12:34; Start 06/16/16 at 09:15; Stop 06/16/16 at 14:10; Status DC Vancomycin HCl/ Sodium Chloride (Vancomycin Inj/ NS 500 ml Inj) 517.5 ml @ 250 mls/hr Q12H IV Last administered on 06/19/16 04:55; Start 06/16/16 at 18:00; Stop 06/19/16 at 10:13; Status DC Miscellaneous Information SPECIFIC LAB TO BE VIKRAM... ONCE ONCE XX Last administered on 06/19/16 05:15; Start 06/19/16 at 05:45; Stop 06/19/16 at 05:46; Status DC Acyclovir (Zovirax) 400 mg DAILY PO Last administered on 06/22/16 08:42; Start 06/17/16 at 09:00; Status Hold Diphenhydramine HCl (Benadryl) 25 mg NOW ONCE PO ; Start 06/16/16 at 14:15; Stop 06/16/16 at 14:16; Status DC Diphenhydramine HCl 25 mg 25 mg Q8H PRN PO ITCHING; Start 06/16/16 at 14:15 Sodium Chloride (NS 1000 ml Inj) 1,000 ml @ 84 mls/hr [id number] IV Last administered on 06/17/16 03:09; Start 06/16/16 at 14:30; Stop 06/17/16 at 08:52 ; Status DC Pantoprazole Sodium (Protonix) 20 mg DAILY PO Last administered on 06/22/16 08: 41; Start 06/17/16 at 09:00; Status Hold Diphenoxylate HCl/ Atropine 1 tab 1 tab NOW ONCE PO Last administered on 16:24; Start 06/17/16 at 15:45; Stop 06/17/16 at 15:46; Status DC Vancomycin HCl/ Sodium Chloride (Vancomycin Inj/ NS 250 ml Inj) 262.5 ml @ 250 mls/hr Q12H IV Last administered on 06/22/16 06:13; Start 06/20/16 at 06:00; Status Hold Miscellaneous Information SPECIFIC LAB TO BE DRAWN:VANCOMYCIN TROUGH DATE TO... ONCE ONCE XX Last administered on 06/22/16 06:11; Start 06/22/16 at 05:45; Stop 06/22/16 at 05:46; Status DC Diphenoxylate HCl/ Atropine (Lomotil Tab) 1 tab Q6H PRN PO LOOSE STOOL Last administered on 06/21/16 09:33; Start 06/20/16 at 07:45 Cyanocobalamin 1000 mcg 1,000 mcg ONCE ONCE IM Last administered on 06/22/16 10:05; Start 06/22/16 at 10:00; Stop 06/22/16 at 10:03; Status DC Sodium Chloride (NS 250 ml Inj) 250 ml @ 15 mls/hr ONCE ONCE IV Last administered on 06/22/16 13:20; Start 06/22/16 at 10:15; Stop 06/23/16 at 02:54; Status DC Acetaminophen (Tylenol) 650 mg Q4H PRN PO SEE LABEL COMMENTS Last administered on 06/22/16 13:18; Start 06/22/16 at 10:15; Stop 06/22/16 at 14:16; Status DC Diphenhydramine HCl (Benadryl) 25 mg Q4H PRN PO SEE LABEL COMMENTS Last administered on 06/22/16 13:17; Start 06/22/16 at 10:15; Stop 06/22/16 at 14:16; Status DC A/P Assessment and Plan A/P (1) AML (acute myeloid leukemia) Plan: As shown on bone marrow biopsy. Medical oncology consulted and following. Status post port placement 05/23. Chemotherapy started 05/27. Hemoglobin/ PLT being monitored; transfuse with PRBC/platelet as needed per oncology. Continue with neutropenic precautions. Patient is status post bone marrow biopsy on 06/13, pathology with negative for AML. hematology/oncology following. (2) Neutropenic fever- now fever has resolved. ID consulted. Vanco and Acycolvir on hold due to persistent neutropenia will consider neupogen if leukopenia persists. (3) Pancytopenia Plan: Pancytopenia likely secondary to chemotherapy given for AML treatment. PLT and H/H improving-- Continue to monitor CBC and follow up oncology recommendations. (4) UTI (urinary tract infection) Plan: treated. Urine culture grew Klebsiella pneumonia. (5) GI bleed Plan: GI bleed now resolved. Patient had some episodes of rectal bleeding. s/p EGD and colonoscopy with gastritis and rectal ulcer. continue PPI. (6) Anxiety Plan: Continue Valium as needed. seems stable. (7) Diarrhea-improved repeat C diff negative. lomotil as needed. (8) Dizziness Plan: CT head ordered by oncology 06/10 - No acute disease. Dizziness has now resolved. DVT prophylaxis: SCDs, no chemoprophylaxis given thrombocytopenia. Discharge Planning when cleared by oncology. Elma Feliz MD Jun 24, 2016 08:40
--- NOTE | 2016-06-24 11:02 | PD.ONC.PN ---
Subjective Subjective Remarks Afebrile overnight. Patient had a few episodes of diarrhea overnight. Denies abdominal pain. Resting comfortably without complaint. Objective Data Date Time Temp Pulse Resp B/P Pulse Ox O2 Delivery O2 Flow Rate FiO2 06/24/16 08:00 99.2 69 16 118/58 93 06/24/16 04:00 97.1 108 17 118/62 94 06/24/16 00:00 98.6 108 18 112/54 95 06/23/16 20:00 98.5 104 18 121/65 94 06/23/16 15:50 98.2 80 20 121/58 95 06/23/16 11:50 98.3 90 20 99/56 95 Result Diagram: 06/24/16 0300 06/24/16 0300 Laboratory Results Laboratory Tests Test 06/24/16 03:00 White Blood Count 1.1 TH/MM3 Red Blood Count 3.01 MIL/MM3 Hemoglobin 9.0 GM/DL Hematocrit 26.6 % Mean Corpuscular Volume 88.5 FL Mean Corpuscular Hemoglobin 30.1 PG Mean Corpuscular Hemoglobin 34.0 % Concent Red Cell Distribution Width 12.9 % Platelet Count 278 TH/MM3 Mean Platelet Volume 8.5 FL Neutrophils (%) (Auto) % Lymphocytes (%) (Auto) % Monocytes (%) (Auto) % Eosinophils (%) (Auto) % Basophils (%) (Auto) % Neutrophils # (Auto) TH/MM3 Lymphocytes # (Auto) TH/MM3 Monocytes # (Auto) TH/MM3 Eosinophils # (Auto) TH/MM3 Basophils # (Auto) TH/MM3 CBC Comment AUTO DIFF Differential Total Cells 100 Counted Neutrophils % (Manual) 9 % Band Neutrophils % 1 % Lymphocytes % 87 % Monocytes % 2 % Eosinophils % 1 % Neutrophils # (Manual) 0.1 TH/MM3 Nucleated Red Blood Cells 3 /100 WBC Differential Comment FINAL DIFF MANUAL Platelet Estimate NORMAL Platelet Morphology Comment NORMAL Creatinine 0.82 MG/DL Estimat Glomerular Filtration 71 ML/MIN Rate Administered Medications Medications (Trade) Dose Ordered Sig/Prashant Route PRN Reason Start Time Stop Time Status Last Admin Dose Admin Carisoprodol (Soma) 350 mg TID PRN PO PAIN 05/16/16 17:30 06/22/16 01:21 Furosemide (Lasix) 20 mg DAILY PO 05/17/16 09:00 06/24/16 08:36 Gabapentin (Neurontin) 300 mg TID PO 05/16/16 18:00 06/24/16 08:36 Levothyroxine Sodium (Synthroid) 25 mcg DAILY@06 PO 05/17/16 06:00 06/24/16 05:10 Potassium Chloride (KCl) 10 meq DAILY PO 05/17/16 09:00 06/24/16 08:36 Famotidine (Pepcid) 20 mg BID PO 05/16/16 21:00 Hold 06/22/16 08:41 IV Flush (NS Flush) 2 ml UNSCH PRN IV FLUSH AFTER USING IV ACCESS 05/16/16 17:45 06/23/16 19:08 IV Flush (NS Flush) 2 ml BID IV 05/16/16 21:00 06/24/16 08:36 Ondansetron HCl (Zofran Inj) 4 mg Q6H PRN IV NAUSEA 05/16/16 17:45 06/17/16 21:06 Acetaminophen (Tylenol) 650 mg Q6HR PRN PO headache 05/17/16 06:30 06/16/16 12:08 Oxycodone/ Acetaminophen (Percocet 5-325 Mg) 1 tab Q4H PRN PO pain 1-5 05/20/16 10:00 06/14/16 11:36 Oxycodone HCl (Roxicodone) 10 mg Q4H PRN PO pain 6-10 05/21/16 16:00 06/24/16 08:48 IV Flush (NS Flush) DAILY IVF 05/24/16 09:00 06/23/16 08:22 Heparin Sodium (Porcine) (Heparin Central Flush) DAILY IVF 05/24/16 09:00 06/23/16 08:22 IV Flush (NS Flush) UNSCH PRN IVF SEE PROTOCOL 05/23/16 15:30 06/24/16 03:06 Heparin Sodium (Porcine) (Heparin Central Flush) UNSCH PRN IVF SEE PROTOCOL 05/23/16 15:30 06/24/16 03:05 Docusate Sodium (Colace) 100 mg BID PO 05/24/16 11:00 Hold 06/05/16 07:58 Morphine Sulfate (Morphine Inj) 2 mg Q2HR PRN IV PUSH SEVERE BREAKTHROUGH PAIN 05/27/16 08:45 06/23/16 19:07 Diazepam (Valium) 10 mg Q12HR PO 05/28/16 09:00 06/24/16 08:38 Temazepam 15 mg 15 mg HS PRN PO SLEEP 05/28/16 08:00 06/01/16 22:23 Cefepime HCl 2000 mg/Sodium Chloride 100 ml @ 200 mls/hr Q8H IV 06/05/16 18:00 06/24/16 08:49 Micafungin Sodium/ Sodium Chloride (Mycamine Inj/NS Inj) 100 ml @ 100 mls/hr Q24H IV 06/10/16 16:00 06/23/16 16:16 Potassium Phos/ Sodium Phos (K-Phos Neutral) 250 mg Q6HR PO 06/12/16 12:00 06/24/16 05:10 Acyclovir (Zovirax) 400 mg DAILY PO 06/17/16 09:00 Hold 06/22/16 08:42 Pantoprazole Sodium 20 mg 20 mg DAILY PO 06/17/16 09:00 Hold 06/22/16 08:41 Vancomycin HCl/ Sodium Chloride (Vancomycin Inj/ NS 250 ml Inj) 262.5 ml @ 250 mls/hr Q12H IV 06/20/16 06:00 Hold 06/22/16 06:13 Diphenoxylate HCl/ Atropine (Lomotil Tab) 1 tab Q6H PRN PO LOOSE STOOL 06/20/16 07:45 06/21/16 09:33 Objective Remarks GENERAL: Middle aged female, lying in bed, resting. SKIN: Warm and dry. hick-man catheter site clean. HEAD: Normocephalic. EYES: No injection or drainage. NECK: Supple, trachea midline. CARDIOVASCULAR: Regular rate and rhythm RESPIRATORY: Breath sounds equal bilaterally. No accessory muscle use. GASTROINTESTINAL: Abdomen soft, non-tender, nondistended. EXTREMITIES: No cyanosis. NEUROLOGICAL: awake and alert, normal speech. moving all extremities. Assessment/Plan Problem List: (1) AML (acute myeloid leukemia) Status: Acute Plan: 06/24/16: will give Neupogen 480mcg x 1 today. monitor WBC for improvement. 06/23/16: await recovery of bone marrow. if no improvement in WBC tomorrow, will give Neupogen 06/22/16: will give B12 injection to help enhance hematopoiesis. monitor WBC. give 1 unit pRBC for symptomatic anemia. Vanco placed on hold. 06/21/16: awaiting WBC recovery. platelets continuing to improve. 06/20/16: D25. slight bump in WBC. platelets improving. 06/19/16: D24. Platelet counts starting to improve. Continue to wait for white cells to recover. Pt doing very well clinically. 06/18/16: D23. Doing well. We will await counts to improve/ bone marrow recovery. Absolute neutrophil count still at 0 today. 06/17/16: D22. bone marrow biopsy shows no residual leukemia. awaiting bone marrow recovery. nausea resolved. diarrhea persistent. 06/16/16: D21: waiting on bone marrow recovery. flow shows only 0.08% blasts. awaiting pathology. no diarrhea since last night. fs faxed to [facility] for follow up after discharge. 06/15/16: diarrhea worsening. suspect abx side effect. will stop allopurinol as this also may be contributing. 06/14/16: D19. no transfusion needed today. mild headache. monitor. Having some diarrhea, C. difficile negative 2. 06/13/16: D18. BMB today. no nausea. stable. 06/12/16:D17: Intermittent headache. Blood counts stable. Bone marrow biopsy tomorrow. 06/11/16: D16. Doing well today. Counts stable. Headache improved; CT brain negative. Will plan for bone marrow biopsy with IR on Thursday. 06/10/16: D15. 1 unit plts. dizzy w/ headache. CT brain pending 06/09/16:D14. 2 units pRBC today. 06/08/16: No issues overnight. Plt's are low at 11,000. Likely will drop again tomorrow, so we will transfuse x1 dose today. No bleeding. 06/07/16: Afebrile. Neutropenic precautions continue. 06/06/16: afebrile overnight. continue abx per ID. pain pump refilled. 06/05/16: spiked fever overnight. started on Cefepime. Levaquin stopped. ID consulted. CT ab/pelvis negative 06/04/16: D9. 1 unit plt 06/03/16: D8 chemo finishes late tonight. started on acyclovir/diflucan/levaquin for prophylaxis. 06/01/16: D6. nauseated. otherwise no events. continue chemo. 05/31/16:D5. no events. 05/30/16: D4 chemotherapy. no transfusion today. 05/29/16: D3 chemotherapy. Tolerated well Blood counts trending lower. Transfuse PRBC 2U. CSF cytology negative. 05/28/16: Tolerated chemo well, no significant side effect. Blood counts started to trend down. 05/27/16: D1. Abril-C + Idarubicin. AML w/ intermediate risk cytogenetics. (2) Pancytopenia Status: Acute Plan: transfuse for platelets less than 10k and a Hgb of less than 7. (3) presence of pain pump Status: Chronic Plan: --patient with intrathecal pain pump --managed by Dr. Omer outpatient --pain pump refilled on 06/06/16 Assessment 61y/o female with AML, s/p induction with ABRIL-C + KLESEA. Plan 1. monitor CBC 2. give Neupogen today 3. one lumen in huang catheter port not working properly, will await IR consult Attending Statement The exam, history, and the medical decision-making described in the above note were completed with the assistance of the mid-level provider. I reviewed and agree with the findings presented. I attest that I had a [id number] encounter with the patient on the same day, and personally performed and documented my assessment and findings in the medical record. Feeling better. Hgb and platelet trended up. WBC trended up slightly with ANC 0.1. Will give neupogen today and hopefully to hasten the WBC recovery. Problem Qualifiers (1) AML (acute myeloid leukemia): Qualified Code: C92.00 - Acute myeloid leukemia not having achieved remission Radha Lawrence Jun 24, 2016 11:02 Ryan Tripp MD Jun 24, 2016 16:42
[2016-06-24 12:00] VITALS: BP 108/53; PULSE 80; RESP 16; TEMP 97.5; O2SAT 95
[2016-06-24] MEDS: FILGRASTIM 480 MCG/1.6 ML VIAL SQ SCH (12:37)
[2016-06-24] MEDS ORDERED: LIDOCAINE 1%/EPINEPHrine 1:100,000 SOLN 20 ML VIAL ONE (13:52)
[2016-06-24] MEDS: MICAFUNGIN INJ 100 MG in SODIUM CHLORIDE 0.9% INJ 100 ML IV SCH (14:58)
[2016-06-24] MEDS ORDERED: SODIUM CHLORIDE 0.9% FLUSH 5 ML FLUSH IVF PRN (15:00)
--- NOTE | 2016-06-24 15:04 | PD.RAD ---
Post Procedure Progress Note Pre Procedure Diagnosis: (1) AML (acute myeloid leukemia) (2) Donaldson catheter dysfunction Post Procedure Diagnosis: (1) AML (acute myeloid leukemia) (2) Donaldson catheter dysfunction Procedure Date: Jun 24, 2016 Supervising Radiologist: Reddy Damian Proceduralist/Assist: Sabra Reilly RT(R)(CV) Anesthesia: Local, Conscious Sedation Plan of Activity Patient to Unit: Nursing Unit Patient Condition: Good See PACS Report for procedural detail/treatment Central Venous Access Device Procedure 1 Right Tunneled Central Line (3-Lumen Donaldson) Setswana: 10 Findings: Previous tube fractured Reddy Damian MD Jun 24, 2016 15:04
[2016-06-24 16:00] VITALS: BP 100/55; PULSE 93; RESP 16; TEMP 96.9; O2SAT 92
--- NOTE | 2016-06-24 16:59 | RADRPT ---
EXAM DATE/TIME: 06/24/2016 13:47 [facility] COMPARISON: No previous studies available for comparison. INDICATIONS : Patient with a history of leukemia needs donaldson catheter. MEDICAL HISTORY : Hypothyroidism GERD Chronic back pain Peripheral edema hemorrhoids SURGICAL HISTORY : Back and neck surgery Rotator cuff surgery Pain pump placement on the right lower abdomen ENCOUNTER: Subsequent ACUITY: >1 year PAIN SCORE: 5/10 LOCATION: Back FLUORO TIME: 1.3 minutes ACCESS: Right internal jugular vein Prophylactic antibiotics were administered with appropriate pre-procedure timing. Vancomycin within 2 hours of procedure, Ancef (or alternative) within 1 hour of procedure. DEVICE: 1. 10 Mongolian triple lumen Donaldson catheter PROCEDURE : 1. Fluoroscopic guidance. 2. Donaldson catheter exchange. The risks, benefits and alternatives to the procedure were explained and verbal and written consent w as obtained. The site was prepped in sterile fashion. Full sterile technique was used, including ca p, mask, sterile gloves and gown and a large sterile sheet. Hand hygiene and 2% chlorhexidine and Be tadine was utilized per protocol for cutaneous antisepsis with appropriate dry time for site. The sk in and subcutaneous tissues were infiltrated with local anesthetic solution at the existing dermatoto my. Existing catheter was accessed using central port with an 025 stiff glide wire. Wire was advanced arminda n into the IVC. The damaged catheter was removed and used as a guide to cut the new Donaldson catheter to an appropriate length. No catheter was advanced over the wire and into the central venous system. The catheter hub was advanced through the dermatotomy. Dermatotomy was secured with a 2-0 Prolene cer clage. CONCLUSION: 1. Uncomplicated Donaldson catheter exchange as above. 2. Patient should have the dermatotomy cerclage removed in approximately 10-14 days. This can be perf ormed in the oncology clinic or in radiology outpatient unit. Reddy Damian MD on June 24, 2016 at 16:55 Board Certified Radiologist. This report was verified electronically.
[2016-06-24] MEDS: MORPHINE SULFATE 4 MG/ML INJ IV PUSH PRN (19:34)
[2016-06-24 20:00] VITALS: BP 116/55; PULSE 110; RESP 18; TEMP 98.4; O2SAT 93
[2016-06-24] MEDS: ONDANSETRON HCL 4 MG/2 ML VIAL IV PRN (20:48)
[2016-06-24] MEDS: SODIUM CHLORIDE 0.9% FLUSH 5 ML FLUSH IV PRN (20:48)
[2016-06-25] VITALS: BP 125/75; PULSE 78; RESP 17; TEMP 98.5; O2SAT 96
[2016-06-25] MEDS: POTASSIUM PHOSPHATE/SODIUM PHOSPHATE 250 MG TAB PO SCH ×4 (00:03→18:24)
[2016-06-25] MEDS: LACTATED RINGER'S 1000 ML IV SCH (00:11)
[2016-06-25] MEDS: SODIUM CHLORIDE 0.9% FLUSH 5 ML FLUSH IV PRN (02:37)
[2016-06-25] MEDS: CEFEPIME INJ 2,000 MG in SODIUM CHLORIDE 0.9% INJ 100 ML IV SCH ×3 (02:37→18:23)
[2016-06-25] MEDS: ACETAMINOPHEN 325 MG TAB PO PRN ×2 (02:41→09:25)
[2016-06-25] MEDS: SODIUM CHLORIDE 0.9% FLUSH 5 ML FLUSH IVF PRN (03:53)
[2016-06-25 04:06] VITALS: BP 115/56; PULSE 80; RESP 18; TEMP 96.9; O2SAT 96
[2016-06-25 04:10] LABS: HEMATOCRIT 22.9 % (35.0-46.0); MEAN CORPUSCULAR HEMOGLOBIN 31.4 PG (27.0-34.0); MEAN CORPUSCULAR HGB CONC 35.7 % (32.0-36.0); PLATELET COUNT 330 TH/MM3 (150-450); RED CELL DISTRIBUTION WIDTH 12.8 % (11.6-17.2); WHITE BLOOD COUNT 1.1 TH/MM3 (4.0-11.0)
[2016-06-25 04:13] LABS: HEMO FLAGS AUTO DIFF
[2016-06-25] MEDS: LEVOTHYROXINE SODIUM 25 MCG TAB PO SCH (06:20)
[2016-06-25 08:00] VITALS: BP 100/53; PULSE 97; RESP 16; TEMP 99.6; O2SAT 94
[2016-06-25] MEDS: SODIUM CHLORIDE 0.9% FLUSH 5 ML FLUSH IVF SCH ×2 (09:00)
[2016-06-25 09:05] LABS: BANDS 25 % (0-6); CORRECTED NUCLEATED RBC 1 /100 WBC (0-0); NEUTROPHIL # MANUAL DIFF 0.3 TH/MM3 (1.8-7.7); POLYS (SEG NEUTROPHILS) 6 % (16-70); WBC DIFF SAMPLE 100
[2016-06-25 09:06] LABS: DOHLE BODIES PRESENT (NONE SEEN); PLATELET ESTIMATE SMEAR NORMAL (NORMAL); PLATELET MORPHOLOGY ENLARGED (NORMAL); SCAN/DIFF FINAL DIFF MANUAL; TOXIC GRANULATION 2+ (NORMAL); TOXIC VACUOLATION PRESENT (NONE SEEN)
[2016-06-25] MEDS: DIAZEPAM 10 MG TAB PO SCH ×2 (09:25→20:32)
[2016-06-25] MEDS: GABAPENTIN 300 MG CAP PO SCH ×3 (09:25→18:24)
[2016-06-25] MEDS: POTASSIUM CHLORIDE 10 MEQ CAP PO SCH (09:25)
[2016-06-25] MEDS: FUROSEMIDE 20 MG TAB PO SCH (09:26)
[2016-06-25] MEDS: SODIUM CHLORIDE 0.9% FLUSH 5 ML FLUSH IV SCH ×2 (09:34→20:32)
--- NOTE | 2016-06-25 09:46 | HHI.PR ---
Subjective Remarks resting comfortably with no distress. still with some diarrhea. no abdominal pain, nausea or vomiting. no fever. d/w oncology a the bedside. Objective Vitals Vital Signs Date Time Temp Pulse Resp B/P Pulse Ox O2 Delivery O2 Flow Rate FiO2 06/25/16 08:00 99.6 97 16 100/53 94 06/25/16 04:06 96.9 80 18 115/56 96 06/25/16 00:00 98.5 78 17 125/75 96 06/24/16 20:00 98.4 110 18 116/55 93 06/24/16 16:00 96.9 93 16 100/55 92 06/24/16 12:00 97.5 80 16 108/53 95 I/O 06/24/16 06/24/16 06/24/16 06/25/16 06/25/16 06/25/16 07:00 15:00 23:00 07:00 15:00 23:00 Intake Total 800 ml 480 ml Balance 800 ml 480 ml Intake Oral 800 ml 480 ml # Voids 3 4 # Bowel Movements 1 Result Diagram: 06/25/16 0350 06/24/16 0300 Imaging Last Impressions Catheter Placement X-Ray 06/24/16 0000 Signed Impressions: Service Date/Time: Friday, June 24, 2016 13:47 - CONCLUSION: 1. Uncomplicated Donaldson catheter exchange as above. 2. Patient should have the dermatotomy cerclage removed in approximately 10-14 days. This can be performed in the oncology clinic or in radiology outpatient unit. Reddy Damian MD Bone Biopsy CT 06/13/16 0000 Signed Impressions: Service Date/Time: Monday, June 13, 2016 08:35 - CONCLUSION: 1. Uncomplicated CT guided bone marrow aspirate. 2. Uncomplicated CT guided bone marrow biopsy. Juan Carlos Cherry MD FACR Head CT 06/10/16 0000 Signed Impressions: Service Date/Time: Friday, June 10, 2016 14:56 - CONCLUSION: Stable noncontrast head CT. No acute intracranial abnormality is identified. Bravo Jackman MD Abdomen/Pelvis CT 06/05/16 0000 Signed Impressions: Service Date/Time: May 22:13 - CONCLUSION: Minimal fluid in the pelvis, otherwise unremarkable. Cynthia Guardado MD Chest X-Ray 06/04/16 0000 Signed Impressions: Service Date/Time: Saturday, June 04, 2016 21:23 - CONCLUSION: No acute disease. Kilo Cotto MD Lumbar Puncture Fluoroscopy 05/23/16 0000 Signed Impressions: Service Date/Time: Monday, May 23, 2016 14:16 - CONCLUSION: Uncomplicated fluoroscopically guided lumbar puncture. Bubba Cherry MD Chest CT 05/17/16 0000 Signed Impressions: Service Date/Time: Tuesday, May 17, 2016 15:14 - CONCLUSION: 1. 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 There are trace to very small bilateral pleural effusions and mild cardiomegaly noted. 2. No lobar consolidation. 3. Upper limits of normal to mildly enlarged mediastinal and bilateral hilar lymph nodes, nonspecific but presumably reactive. Bravo Mendez MD Objective Remarks GENERAL: This is a well-nourished, well-developed patient, in no apparent distress. CARDIOVASCULAR: Regular rate and regular rhythm without murmurs, gallops, or rubs. RESPIRATORY: Clear to auscultation. Breath sounds equal bilaterally. No wheezes , rales, or rhonchi. GASTROINTESTINAL: Abdomen soft, non-tender, nondistended. Normal, active bowel sounds MUSCULOSKELETAL: Extremities without clubbing, cyanosis, or edema. NEURO: Alert & Oriented x4 to person, place, time, situation. Moves all ext x4 Procedures EGD/ colonoscopy Bone marrow biopsy Medications and IVs Current Medications Sodium Chloride (NS 1000 ml Inj) 1,000 ml @ 1,000 mls/hr Q1H IV Last administered on 05/16/16at 15:22; Start 05/16/16 at 14:49; Stop 05/16/16 at 15 :48; Status DC IV Flush (NS Flush) 2 ml UNSCH PRN IVF FLUSH AFTER USING IV ACCESS Last administered on 05/16/16at 16:58; Start 05/16/16 at 15:00; Stop 05/16/16 at 17 :36; Status DC Pantoprazole Sodium (Protonix Inj) 40 mg ONCE ONCE IV PUSH Last administered on 05/16/16at 16:57; Start 05/16/16 at 16:45; Stop 05/16/16 at 16:46; Status DC Carisoprodol (Soma) 350 mg TID PRN PO PAIN Last administered on 06/22/16 01:21 ; Start 05/16/16 at 17:30 Furosemide (Lasix) 20 mg DAILY PO Last administered on 06/24/16 08:36; Start 05/17/16 at 09:00 Gabapentin (Neurontin) 300 mg TID PO Last administered on 06/24/16 17:31; Start 05/16/16 at 18:00 Levothyroxine Sodium (Synthroid) 25 mcg DAILY@06 PO Last administered on 06:20; Start 05/17/16 at 06:00 Potassium Chloride (KCl) 10 meq DAILY PO Last administered on 06/24/16 08:36; Start 05/17/16 at 09:00 Famotidine 20 mg 20 mg BID PO Last administered on 06/22/16 08:41; Start 05/16 at 21:00; Status Hold Sodium Chloride (NS 1000 ml Inj) 1,000 ml @ 75 mls/hr [id number] IV Last administered on 05/16/16at 17:59; Start 05/16/16 at 17:31; Stop 05/17/16 at 06 :50; Status DC IV Flush (NS Flush) 2 ml UNSCH PRN IV FLUSH AFTER USING IV ACCESS Last administered on 06/25/16 02:37; Start 05/16/16 at 17:45 IV Flush (NS Flush) 2 ml BID IV Last administered on 06/24/16 08:36; Start at 21:00 Ondansetron HCl (Zofran Inj) 4 mg Q6H PRN IV NAUSEA Last administered on 20:48; Start 05/16/16 at 17:45 Pantoprazole Sodium (Protonix Inj) 40 mg Q24H IV PUSH Last administered on 08:42; Start 05/17/16 at 09:00; Stop 05/21/16 at 14:52; Status DC Influenza Virus Vaccine (Flu (Quadrivalent) Vaccine Inj) 0.5 ml ONCE ONCE IM Last administered on 05/17/16at 11:51; Start 05/17/16 at 10:00; Stop 05/17/16 at 10:01; Status DC Acetaminophen (Tylenol) 650 mg Q6HR PRN PO headache Last administered on 02:41; Start 05/17/16 at 06:30 Diatrizoate Meglum/ Diatrizoate Sod (Md Arita Liq) 18 ml ONCE ONCE PO Last administered on 05/17/16at 11:49; Start 05/17/16 at 11:15; Stop 05/17/16 at 11:16; Status DC Iohexol (Omnipaque 350 Inj) 75 ml STK-MED ONCE IV Last administered on at 15:29; Start 05/17/16 at 15:29; Stop 05/17/16 at 15:30; Status DC Diazepam (Valium) 10 mg Q12HR PO Last administered on 05/24/16 08:12; Start 05/18/16 at 12:00; Stop 05/24/16 at 13:36; Status DC Polyethylene Glycol/ Electrolytes 4000 ml 4,000 ml ONCE ONCE PO Last administered on 05/19/16 16:34; Start 05/19/16 at 16:00; Stop 05/19/16 at 16:01; Status DC Lactated Ringer's (Lr 1000 ml Inj) 1,000 ml @ 30 mls/hr Q24H IV ; Start at 01:15 Acetaminophen (Tylenol) 650 mg ONCE ONCE PO Last administered on 05/20/16 05: 00; Start 05/20/16 at 05:00; Stop 05/20/16 at 05:03; Status DC Lidocaine/ Epinephrine 20 ml 20 ml STK-MED ONCE .ROUTE Last administered on 05/20 08:36; Start 05/20/16 at 08:36; Stop 05/20/16 at 08:49; Status DC Sodium Bicarbonate (Sodium Bicarbonate 8.4% Inj) 50 ml @ As Directed STK-MED ONCE .ROUTE Last administered on 05/20/16 08:36; Start 05/20/16 at 08:36; Stop 05/20/16 at 08:50; Status DC Fentanyl Citrate (fentaNYL INJ) 250 mcg STK-MED ONCE .ROUTE Last administered on 05/20/16 08:43; Start 05/20/16 at 08:43; Stop 05/20/16 at 08:51; Status DC Midazolam HCl (Versed Inj) 5 mg STK-MED ONCE .ROUTE Last administered on 08:43; Start 05/20/16 at 08:43; Stop 05/20/16 at 08:51; Status DC Oxycodone/ Acetaminophen (Percocet 5-325 Mg) 1 tab Q4H PRN PO pain 1-5 Last administered on 06/14/16 11:36; Start 05/20/16 at 10:00 Propofol (Diprivan 200 Mg/20 ml Inj) 310 mg STK-MED ONCE IV ; Start 05/20/16 at 12:55; Stop 05/20/16 at 13:30; Status DC Mesalamine (Canasa Supp) 1,000 mg HS RECTAL ; Start 05/20/16 at 21:00; Status Hold Pantoprazole Sodium (Protonix) 40 mg DAILY PO Last administered on 06/17/16 08 :07; Start 05/22/16 at 09:00; Stop 06/17/16 at 08:57; Status DC Oxycodone HCl (Roxicodone) 10 mg Q4H PRN PO pain 6-10 Last administered on 04:03; Start 05/21/16 at 16:00 Acetaminophen/ Butalbital/ Caffeine 1 tab 1 tab ONCE ONCE PO Last administered on 05/21/16 17:42; Start 05/21/16 at 16:00; Stop 05/21/16 at 16:04; Status DC Vancomycin HCl 1000 mg/Sodium Chloride 250 ml @ 250 mls/hr [employer] IV Last administered on 05/23/16 13:00; Start 05/22/16 at 16:45; Stop 05/26/16 at 16:44; Status DC Cefazolin Sodium/ Dextrose (Ancef 2 Gm Premix) 50 ml @ 100 mls/hr [employer] IV ; Start 05/22/16 at 18:00; Stop 05/26/16 at 17:59; Status DC Bisacodyl (Dulcolax Supp) 10 mg DAILY PRN [place] CONSTIPATION Last administered on 05/22/16 22:31; Start 05/22/16 at 22:15; Stop 05/24/16 at 10:23; Status DC Sodium Biphosphate/ Sodium Phosphate (Fleets Enema (Adult)) 133 ml ONCE PRN [place] constipation; Start 05/22/16 at 22:15; Stop 05/23/16 at 22:14; Status Cancel Midazolam HCl (Versed Inj) 5 mg STK-MED ONCE .ROUTE Last administered on 13:44; Start 05/23/16 at 13:44; Stop 05/23/16 at 13:45; Status DC Fentanyl Citrate (fentaNYL INJ) 250 mcg STK-MED ONCE .ROUTE Last administered on 05/23/16 13:44; Start 05/23/16 at 13:44; Stop 05/23/16 at 13:45; Status DC Heparin Sodium (Porcine) (*HEPARIN CENTRAL FLUSH PERIprocedural ONLY) 500 units STK-MED ONCE .ROUTE Last administered on 05/23/16 15:20; Start 05/23/16 at 14:30 ; Stop 05/23/16 at 14:31; Status DC Lidocaine/ Epinephrine (Xylocaine-Epi 1%-1:100,000 Inj) 20 ml STK-MED ONCE .ROUTE Last administered on 05/23/16 15:02; Start 05/23/16 at 14:30; Stop at 14:31; Status DC Midazolam HCl (Versed Inj) 5 mg STK-MED ONCE .ROUTE Last administered on 15:10; Start 05/23/16 at 15:10; Stop 05/23/16 at 15:11; Status DC Fentanyl Citrate 250 mcg 250 mcg STK-MED ONCE .ROUTE Last administered on 15:10; Start 05/23/16 at 15:10; Stop 05/23/16 at 15:11; Status DC Ceftriaxone Sodium/Sodium Chloride (Rocephin Inj/NS Inj) 100 ml @ 200 mls/hr Q24H IV Last administered on 05/30/16 17:19; Start 05/23/16 at 16:00; Stop at 09:52; Status DC IV Flush (NS Flush) DAILY IVF Last administered on 06/23/16 08:22; Start at 09:00 Heparin Sodium (Porcine) (Heparin Central Flush) DAILY IVF Last administered on 06/23/16 08:22; Start 05/24/16 at 09:00 IV Flush (NS Flush) UNSCH PRN IVF SEE PROTOCOL Last administered on 06/25/16 03:53; Start 05/23/16 at 15:30 Heparin Sodium (Porcine) (Heparin Central Flush) UNSCH PRN IVF SEE PROTOCOL Last administered on 06/25/16 03:50; Start 05/23/16 at 15:30 Docusate Sodium (Colace) 100 mg BID PO Last administered on 06/05/16 07:58; Start 05/24/16 at 11:00; Status Hold Lactulose (Lactulose Liq) 30 ml ONCE ONCE PO Last administered on 05/24/16 12: 15; Start 05/24/16 at 10:30; Stop 05/24/16 at 10:31; Status DC Lorazepam (Ativan) 1 mg Q4HR PRN PO anxiety Last administered on 05/24/16 22:38 ; Start 05/24/16 at 13:45; Stop 05/25/16 at 09:00; Status DC Lorazepam (Ativan) 1 mg ONCE ONCE PO Last administered on 05/24/16 14:27; Start 05/24/16 at 13:45; Stop 05/24/16 at 13:46; Status DC Lorazepam (Ativan) 2 mg Q6H PRN PO anxiety Last administered on 05/27/16 07:35 ; Start 05/25/16 at 08:59; Stop 05/28/16 at 08:03; Status DC Lactulose (Lactulose Liq) 30 ml QID PO Last administered on 05/25/16 20:06; Start 05/25/16 at 13:00; Stop 05/25/16 at 21:01; Status DC Polyethylene Glycol (Miralax) 17 gm DAILY PO Last administered on 06/04/16 08: 27; Start 05/25/16 at 14:30; Stop 06/15/16 at 10:54; Status DC Lactic Acid (Lac-Hydrin 12% Lotion) 1 applic BID PRN TOPICAL irritation; Start 05/25/16 at 14:30 Sumatriptan Succinate 25 mg 25 mg ONCE ONCE PO Last administered on 05/25/16 20:06; Start 05/25/16 at 19:45; Stop 05/25/16 at 19:47; Status DC Sodium Chloride (NS 1000 ml Inj) 1,000 ml @ 100 mls/hr Q10H IV Last administered on 06/15/16 10:35; Start 05/26/16 at 09:30; Stop 06/15/16 at 10:54 ; Status DC Allopurinol (Zyloprim) 300 mg DAILY PO Last administered on 06/15/16 08:04; Start 05/26/16 at 09:30; Stop 06/15/16 at 10:19; Status DC Morphine Sulfate 2 mg 2 mg ONCE ONCE IV PUSH Last administered on 05/26/16 10: 46; Start 05/26/16 at 10:30; Stop 05/26/16 at 10:31; Status DC Idarubicin HCl 22.6 mg/Sodium Chloride 122.6 ml @ 490.4 mls/ hr Q24H IV ; Start 05/26/16 at 16:00; Stop 05/26/16 at 17:07; Status DC Granisetron HCl 1 mg/Dexamethasone Sodium Phosphate 20 mg/Sodium Chloride 56 ml @ 336 mls/hr Q24H IV ; Start 05/26/16 at 15:30; Stop 05/26/16 at 17:09; Status DC Cytarabine 189 mg/ Sodium Chloride 500 ml @ 20.833 mls/ hr Q24H IV ; Start 05/26 at 17:00; Stop 05/26/16 at 17:08; Status DC Idarubicin HCl 22.6 mg/Sodium Chloride 122.6 ml @ 490.4 mls/ hr Q24H IV Last administered on 05/29/16 09:00; Start 05/27/16 at 09:00; Stop 05/29/16 at 09:14 ; Status DC Cytarabine 189 mg/ Sodium Chloride 500 ml @ 20.833 mls/ hr Q24H IV Last administered on 06/03/16 04:14; Start 05/27/16 at 10:00; Stop 06/03/16 at 09:59 ; Status DC Granisetron HCl/ Dexamethasone Sodium Phosphate/ Sodium Chloride (Kytril Inj/ Decadron Inj/NS Inj) 56 ml @ 336 mls/hr Q24H IV Last administered on 22:22; Start 05/27/16 at 08:30; Stop 06/02/16 at 08:39; Status DC Morphine Sulfate (Morphine Inj) 2 mg Q2HR PRN IV PUSH SEVERE BREAKTHROUGH PAIN Last administered on 06/24/16 19:34; Start 05/27/16 at 08:45 Lactulose (Lactulose Liq) 30 ml DAILY PO Last administered on 06/05/16 07:57; Start 05/27/16 at 09:00; Stop 06/15/16 at 10:54; Status DC Diazepam (Valium) 10 mg Q12HR PO Last administered on 06/24/16 20:48; Start 04/03 at 09:00 Temazepam 15 mg 15 mg HS PRN PO SLEEP Last administered on 06/01/16 22:23; Start 05/28/16 at 08:00 Sodium Chloride (NS 250 ml Inj) 250 ml @ 15 mls/hr ONCE ONCE IV Last administered on 05/29/16 14:07; Start 05/29/16 at 08:00; Stop 05/30/16 at 00:39 ; Status DC Acetaminophen (Tylenol) 650 mg Q4H PRN PO SEE LABEL COMMENTS; Start 05/29/16 at 08:00; Stop 05/29/16 at 12:01; Status DC Diphenhydramine HCl (Benadryl) 25 mg Q4H PRN PO SEE LABEL COMMENTS; Start 05/29 at 08:00; Stop 05/29/16 at 12:01; Status DC Diphenhydramine HCl (Benadryl) 25 mg Q4H PRN PO SEE LABEL COMMENTS Last administered on 05/29/16 12:54; Start 05/29/16 at 13:00; Stop 05/29/16 at 17:01 ; Status DC Acetaminophen (Tylenol) 650 mg Q4H PRN PO SEE LABEL COMMENTS Last administered on 05/29/16 12:54; Start 05/29/16 at 13:00; Stop 05/29/16 at 17:01; Status DC Diphenhydramine HCl (Benadryl) 25 mg Q4H PRN PO SEE LABEL COMMENTS Last administered on 05/29/16 21:21; Start 05/29/16 at 21:15; Stop 05/30/16 at 01:16 ; Status DC Multi-Ingredient Mouthwash/Gargle (Magic Mouthwash Adult Liq) 5 ml QID SWISH- SWAL Last administered on 06/11/16 08:45; Start 06/03/16 at 09:00; Stop at 12:03; Status DC Acyclovir (Zovirax) 400 mg Q8HR PO Last administered on 06/16/16 05:44; Start 06/03/16 at 14:00; Stop 06/16/16 at 13:56; Status DC Fluconazole (Diflucan) 200 mg DAILY PO Last administered on 06/10/16 09:22; Start 06/03/16 at 09:00; Stop 06/10/16 at 15:16; Status DC Levofloxacin 250 mg 250 mg DAILY@11 PO Last administered on 06/04/16 11:27; Start 06/03/16 at 11:00; Stop 06/05/16 at 07:46; Status DC Sodium Chloride (NS 250 ml Inj) 250 ml @ 15 mls/hr ONCE ONCE IV ; Start at 09:00; Stop 06/05/16 at 01:39; Status DC Acetaminophen (Tylenol) 650 mg Q4H PRN PO SEE LABEL COMMENTS Last administered on 06/04/16 11:27; Start 06/04/16 at 09:00; Stop 06/04/16 at 13:01; Status DC Diphenhydramine HCl 25 mg 25 mg Q4H PRN PO SEE LABEL COMMENTS Last administered on 06/04/16 11:27; Start 06/04/16 at 09:00; Stop 06/04/16 at 13:01 ; Status DC Cefepime HCl/ Sodium Chloride (Maxipime Inj/NS Inj) 100 ml @ 200 mls/hr Q12H IV Last administered on 06/05/16 10:41; Start 06/04/16 at 22:00; Stop at 13:37; Status DC Diatrizoate Meglum/ Diatrizoate Sod 18 ml 18 ml ONCE ONCE PO Last administered on 06/05/16 13:19; Start 06/05/16 at 13:00; Stop 06/05/16 at 13:01 ; Status DC Cefepime HCl/ Sodium Chloride (Maxipime Inj/NS Inj) 100 ml @ 200 mls/hr Q8H IV Last administered on 06/25/16 02:37; Start 06/05/16 at 18:00 Azithromycin 500 mg 500 mg DAILY PO Last administered on 06/10/16 09:21; Start 06/05/16 at 14:00; Stop 06/10/16 at 15:16; Status DC Vancomycin HCl 1000 mg/Sodium Chloride 250 ml @ 250 mls/hr ONCE ONCE IV Last administered on 06/05/16 14:44; Start 06/05/16 at 14:00; Stop 06/05/16 at 14:59 ; Status DC Pharmacy Profile Note (Vancomycin Consult Pharmacy) 0 ml @ 0 mls/hr UNSCH OTHER ; Start 06/05/16 at 13:45; Stop 06/24/16 at 13:50; Status DC Metronidazole 500 mg 500 mg Q8HR PO Last administered on 06/18/16 13:42; Start 06/05/16 at 14:00; Stop 06/18/16 at 14:14; Status DC Vancomycin HCl/ Sodium Chloride (Vancomycin Inj/ NS 250 ml Inj) 262.5 ml @ 250 mls/hr Q12H IV Last administered on 06/10/16 01:03; Start 06/06/16 at 00:00; Stop 06/10/16 at 15:30; Status DC Miscellaneous Information SPECIFIC LAB TO BE DRAWN:VANCOMYCIN TROUGH DATE TO... ONCE ONCE XX Last administered on 06/07/16 11:45; Start 06/07/16 at 11:45; Stop 06/07/16 at 11:46; Status DC Iohexol (Omnipaque 350 Inj) 100 ml STK-MED ONCE IV Last administered on 22:20; Start 06/05/16 at 22:20; Stop 06/05/16 at 22:21; Status DC Patient Own Medication PT OWN MED: HYDROMORPHONE 40 MG/... UNSCH OTHER ; Start 06/06/16 at 11:00 Sodium Chloride (NS 250 ml Inj) 250 ml @ 15 mls/hr ONCE ONCE IV Last administered on 06/06/16 16:45; Start 06/06/16 at 12:45; Stop 06/07/16 at 05:24 ; Status DC Acetaminophen (Tylenol) 650 mg Q4H PRN PO SEE LABEL COMMENTS Last administered on 1/20/17at 16:19; Start 06/06/16 at 12:45; Stop 06/06/16 at 16:46; Status DC Diphenhydramine HCl (Benadryl) 25 mg Q4H PRN PO SEE LABEL COMMENTS Last administered on 06/06/16 16:18; Start 06/06/16 at 12:45; Stop 06/06/16 at 16:46 ; Status DC Miscellaneous Information SPECIFIC LAB TO BE VIKRAM... ONCE ONCE XX Last administered on 06/08/16 13:45; Start 06/08/16 at 11:45; Stop 06/08/16 at 11:46 ; Status DC Sodium Chloride (NS 250 ml Inj) 250 ml @ 15 mls/hr ONCE ONCE IV Last administered on 06/08/16 13:00; Start 06/08/16 at 13:00; Stop 06/09/16 at 05:39 ; Status DC Diphenhydramine HCl 25 mg 25 mg Q4H PRN PO SEE LABEL COMMENTS; Start 06/08/16 at 13:00; Stop 06/08/16 at 17:01; Status DC Sodium Chloride (NS 250 ml Inj) 250 ml @ 15 mls/hr ONCE ONCE IV Last administered on 06/09/16 11:51; Start 06/09/16 at 07:30; Stop 06/10/16 at 00:09 ; Status DC Acetaminophen (Tylenol) 650 mg Q4H PRN PO SEE LABEL COMMENTS; Start 06/09/16 at 07:30; Stop 06/09/16 at 11:31; Status DC Diphenhydramine HCl (Benadryl) 25 mg Q4H PRN PO SEE LABEL COMMENTS; Start 06/09 at 07:30; Stop 06/09/16 at 11:31; Status DC Loperamide HCl 2 mg 2 mg UNSCH PRN PO DIARRHEA Last administered on 06/15/16 08:03; Start 06/09/16 at 11:15; Stop 06/15/16 at 10:54; Status DC Magnesium Sulfate/ Dextrose 100 ml @ 100 mls/hr Q1H IV Last administered on 15:35; Start 06/10/16 at 09:15; Stop 06/10/16 at 11:14; Status DC Sodium Chloride (NS 250 ml Inj) 250 ml @ 15 mls/hr ONCE ONCE IV Last administered on 06/10/16 12:26; Start 06/10/16 at 09:30; Stop 06/11/16 at 02:09 ; Status DC Acetaminophen (Tylenol) 650 mg Q4H PRN PO SEE LABEL COMMENTS Last administered on 06/10/16 10:57; Start 06/10/16 at 09:30; Stop 06/10/16 at 13:31; Status DC Diphenhydramine HCl 25 mg 25 mg Q4H PRN PO SEE LABEL COMMENTS Last administered on 06/10/16 10:57; Start 06/10/16 at 09:30; Stop 06/10/16 at 13:31 ; Status DC Micafungin Sodium 100 mg/Sodium Chloride 100 ml @ 100 mls/hr Q24H IV Last administered on 06/24/16 14:58; Start 06/10/16 at 16:00 Vancomycin HCl/ Sodium Chloride (Vancomycin Inj/ NS 500 ml Inj) 515 ml @ 250 mls/hr Q12H IV Last administered on 06/12/16 05:32; Start 06/10/16 at 18:00; Stop 06/12/16 at 09:22; Status DC Miscellaneous Information SPECIFIC LAB TO BE DRAWN:VANCOMYCIN TROUGH DATE TO... ONCE ONCE XX Last administered on 06/12/16 05:33; Start 06/12/16 at 05:45; Stop 06/12/16 at 05:46; Status DC Vancomycin HCl/ Sodium Chloride (Vancomycin Inj/ NS 500 ml Inj) 517.5 ml @ 250 mls/hr Q12H IV Last administered on 06/14/16 05:14; Start 06/12/16 at 18:00; Stop 06/14/16 at 10:10; Status DC Miscellaneous Information SPECIFIC LAB TO BE DRAWN:VANCOMYCIN TROUGH DATE TO... ONCE ONCE XX Last administered on 06/14/16 05:15; Start 06/14/16 at 05:45; Stop 06/14/16 at 05:46; Status DC Potassium Chloride (KCl) 30 meq ONCE ONCE PO Last administered on 06/12/16 13 :21; Start 06/12/16 at 09:30; Stop 06/12/16 at 09:37; Status DC Potassium Phos/ Sodium Phos (K-Phos Neutral) 250 mg Q6HR PO Last administered on 06/25/16 06:21; Start 06/12/16 at 12:00 Lidocaine/ Epinephrine (Xylocaine-Epi 1%-1:100,000 Inj) 20 ml STK-MED ONCE .ROUTE Last administered on 06/13/16 07:27; Start 06/13/16 at 07:27; Stop at 07:28; Status DC Fentanyl Citrate (fentaNYL INJ) 250 mcg STK-MED ONCE .ROUTE Last administered on 06/13/16 07:51; Start 06/13/16 at 07:51; Stop 06/13/16 at 07:52; Status DC Midazolam HCl (Versed Inj) 5 mg STK-MED ONCE .ROUTE Last administered on 07:51; Start 06/13/16 at 07:51; Stop 06/13/16 at 07:52; Status DC Thrombin (Thrombin Top Soln) 5,000 units STK-MED ONCE .ROUTE Last administered on 06/13/16 08:41; Start 06/13/16 at 08:41; Stop 06/13/16 at 08:42; Status DC Hydromorphone HCl (Dilaudid Pf Inj) 2 mg STK-MED ONCE .ROUTE Last administered on 06/13/16 08:48; Start 06/13/16 at 08:48; Stop 06/13/16 at 08:49; Status DC Gelatin 1 foam 1 foam STK-MED ONCE .XX Last administered on 06/13/16 09:33; Start 06/13/16 at 09:33; Stop 06/13/16 at 09:34; Status DC Sodium Chloride (NS 250 ml Inj) 250 ml @ 15 mls/hr ONCE ONCE IV Last administered on 06/13/16 12:48; Start 06/13/16 at 10:00; Stop 06/14/16 at 02:39 ; Status DC Acetaminophen (Tylenol) 650 mg Q4H PRN PO SEE LABEL COMMENTS; Start 06/13/16 at 10:00; Stop 06/13/16 at 14:01; Status DC Diphenhydramine HCl 25 mg 25 mg Q4H PRN PO SEE LABEL COMMENTS Last administered on 06/13/16 11:34; Start 06/13/16 at 10:00; Stop 06/13/16 at 14:01 ; Status DC Sodium Chloride (NS 250 ml Inj) 250 ml @ 15 mls/hr ONCE ONCE IV Last administered on 06/13/16 12:48; Start 06/13/16 at 12:00; Stop 06/14/16 at 04:39 ; Status DC Acetaminophen (Tylenol) 650 mg Q4H PRN PO SEE LABEL COMMENTS; Start 06/13/16 at 12:00; Stop 06/13/16 at 16:01; Status DC Diphenhydramine HCl (Benadryl) 25 mg Q4H PRN PO SEE LABEL COMMENTS; Start 06/13 at 12:00; Stop 06/13/16 at 16:01; Status DC Diphenhydramine HCl (Benadryl) 25 mg ONCE ONCE PO Last administered on 20:42; Start 06/13/16 at 21:00; Stop 06/13/16 at 21:01; Status DC Potassium Chloride 30 meq 30 meq ONCE ONCE PO Last administered on 06/14/16 10:40; Start 06/14/16 at 09:15; Stop 06/14/16 at 09:16; Status DC Vancomycin HCl/ Sodium Chloride (Vancomycin Inj/ NS 500 ml Inj) 520 ml @ 250 mls/hr Q12H IV Last administered on 06/16/16 05:44; Start 06/14/16 at 18:00; Stop 06/16/16 at 11:21; Status DC Miscellaneous Information SPECIFIC LAB TO BE VIKRAM... ONCE ONCE XX Last administered on 06/16/16 05:44; Start 06/16/16 at 05:45; Stop 06/16/16 at 05:46 ; Status DC Diphenoxylate HCl/ Atropine 1 tab 1 tab Q6H PRN PO diarrhea Last administered on 06/15/16 13:17; Start 06/15/16 at 11:00; Stop 06/16/16 at 14:33; Status DC Sodium Chloride (NS 250 ml Inj) 250 ml @ 15 mls/hr ONCE ONCE IV Last administered on 06/16/16 12:27; Start 06/16/16 at 08:30; Stop 06/17/16 at 01:09 ; Status DC Acetaminophen (Tylenol) 650 mg Q4H PRN PO SEE LABEL COMMENTS; Start 06/16/16 at 08:30; Stop 06/16/16 at 12:31; Status DC Diphenhydramine HCl (Benadryl) 25 mg Q4H PRN PO SEE LABEL COMMENTS Last administered on 06/16/16 12:08; Start 06/16/16 at 08:30; Stop 06/16/16 at 12:31 ; Status DC Simethicone 80 mg 80 mg PCHS PRN CHEW GAS RETENTION Last administered on 12:34; Start 06/16/16 at 09:15; Stop 06/16/16 at 14:10; Status DC Vancomycin HCl/ Sodium Chloride (Vancomycin Inj/ NS 500 ml Inj) 517.5 ml @ 250 mls/hr Q12H IV Last administered on 06/19/16 04:55; Start 06/16/16 at 18:00; Stop 06/19/16 at 10:13; Status DC Miscellaneous Information SPECIFIC LAB TO BE VIKRAM... ONCE ONCE XX Last administered on 06/19/16 05:15; Start 06/19/16 at 05:45; Stop 06/19/16 at 05:46; Status DC Acyclovir (Zovirax) 400 mg DAILY PO Last administered on 06/22/16 08:42; Start 06/17/16 at 09:00; Status Hold Diphenhydramine HCl (Benadryl) 25 mg NOW ONCE PO ; Start 06/16/16 at 14:15; Stop 06/16/16 at 14:16; Status DC Diphenhydramine HCl 25 mg 25 mg Q8H PRN PO ITCHING; Start 06/16/16 at 14:15 Sodium Chloride (NS 1000 ml Inj) 1,000 ml @ 84 mls/hr [id number] IV Last administered on 06/17/16 03:09; Start 06/16/16 at 14:30; Stop 06/17/16 at 08:52 ; Status DC Pantoprazole Sodium (Protonix) 20 mg DAILY PO Last administered on 06/22/16 08: 41; Start 06/17/16 at 09:00; Status Hold Diphenoxylate HCl/ Atropine 1 tab 1 tab NOW ONCE PO Last administered on 16:24; Start 06/17/16 at 15:45; Stop 06/17/16 at 15:46; Status DC Vancomycin HCl/ Sodium Chloride (Vancomycin Inj/ NS 250 ml Inj) 262.5 ml @ 250 mls/hr Q12H IV Last administered on 06/22/16 06:13; Start 06/20/16 at 06:00; Stop 06/24/16 at 13:50; Status DC Miscellaneous Information SPECIFIC LAB TO BE DRAWN:VANCOMYCIN TROUGH DATE TO... ONCE ONCE XX Last administered on 06/22/16 06:11; Start 06/22/16 at 05:45; Stop 06/22/16 at 05:46; Status DC Diphenoxylate HCl/ Atropine (Lomotil Tab) 1 tab Q6H PRN PO LOOSE STOOL Last administered on 06/21/16 09:33; Start 06/20/16 at 07:45 Cyanocobalamin 1000 mcg 1,000 mcg ONCE ONCE IM Last administered on 06/22/16 10:05; Start 06/22/16 at 10:00; Stop 06/22/16 at 10:03; Status DC Sodium Chloride (NS 250 ml Inj) 250 ml @ 15 mls/hr ONCE ONCE IV Last administered on 06/22/16 13:20; Start 06/22/16 at 10:15; Stop 06/23/16 at 02:54; Status DC Acetaminophen (Tylenol) 650 mg Q4H PRN PO SEE LABEL COMMENTS Last administered on 06/22/16 13:18; Start 06/22/16 at 10:15; Stop 06/22/16 at 14:16; Status DC Diphenhydramine HCl (Benadryl) 25 mg Q4H PRN PO SEE LABEL COMMENTS Last administered on 06/22/16 13:17; Start 06/22/16 at 10:15; Stop 06/22/16 at 14:16; Status DC Filgrastim (Neupogen Inj) 480 mcg DAILY@14 SQ Last administered on 06/24/16 12: 37; Start 06/24/16 at 14:00 Heparin Sodium (Porcine) (*HEPARIN CENTRAL FLUSH PERIprocedural ONLY) 500 units STK-MED ONCE .ROUTE Last administered on 06/24/16 13:52; Start 06/24/16 at 13:52 ; Stop 06/24/16 at 13:53; Status DC Lidocaine/ Epinephrine (Xylocaine-Epi 1%-1:100,000 Inj) 20 ml STK-MED ONCE .ROUTE Last administered on 06/24/16t 13:52; Start 06/24/16 at 13:52; Stop at 13:53; Status DC IV Flush (NS Flush) DAILY IVF ; Start 06/25/16 at 09:00 Heparin Sodium (Porcine) (Heparin Central Flush) DAILY IVF ; Start 06/25/16 at 09:00 IV Flush (NS Flush) UNSCH PRN IVF SEE PROTOCOL; Start 06/24/16 at 15:00 Heparin Sodium (Porcine) (Heparin Central Flush) UNSCH PRN IVF SEE PROTOCOL; Start 06/24/16 at 15:00 A/P Assessment and Plan A/P (1) AML (acute myeloid leukemia) Plan: As shown on bone marrow biopsy. Medical oncology consulted and following. Status post port placement 05/23. Chemotherapy started 05/27. Hemoglobin/ PLT being monitored; transfuse with PRBC/platelet as needed per oncology. Continue with neutropenic precautions. Patient is status post bone marrow biopsy on 06/13, pathology with negative for AML. hematology/oncology following. (2) Neutropenic fever- now fever has resolved. ID consulted. Vanco and Acycolvir on hold due to persistent neutropenia received Neupogen-will monitor CBC. (3) Pancytopenia Plan: Pancytopenia likely secondary to chemotherapy given for AML treatment. PLT and H/H improving-- Continue to monitor CBC and follow up oncology recommendations. (4) UTI (urinary tract infection) Plan: treated. Urine culture grew Klebsiella pneumonia. (5) GI bleed Plan: GI bleed now resolved. Patient had some episodes of rectal bleeding. s/p EGD and colonoscopy with gastritis and rectal ulcer. continue PPI. (6) Anxiety Plan: Continue Valium as needed. seems stable. (7) Diarrhea-improved repeat C diff negative. lomotil as needed. (8) Dizziness Plan: CT head ordered by oncology 06/10 - No acute disease. Dizziness has now resolved. DVT prophylaxis: SCDs, no chemoprophylaxis given thrombocytopenia. Discharge Planning when cleared by oncology. Elma Feliz MD Jun 25, 2016 09:46
--- NOTE | 2016-06-25 09:49 | PD.ONC.PN ---
Subjective Subjective Remarks Afebrile overnight. Patient resting comfortably. She had multiple episodes of diarrhea overnight. Objective Data Date Time Temp Pulse Resp B/P Pulse Ox O2 Delivery O2 Flow Rate FiO2 06/25/16 08:00 99.6 97 16 100/53 94 06/25/16 04:06 96.9 80 18 115/56 96 06/25/16 00:00 98.5 78 17 125/75 96 06/24/16 20:00 98.4 110 18 116/55 93 06/24/16 16:00 96.9 93 16 100/55 92 06/24/16 12:00 97.5 80 16 108/53 95 Result Diagram: 06/25/16 0350 06/24/16 0300 Laboratory Results Laboratory Tests Test 06/25/16 03:50 White Blood Count 1.1 TH/MM3 Red Blood Count 2.60 MIL/MM3 Hemoglobin 8.2 GM/DL Hematocrit 22.9 % Mean Corpuscular Volume 88.0 FL Mean Corpuscular Hemoglobin 31.4 PG Mean Corpuscular Hemoglobin 35.7 % Concent Red Cell Distribution Width 12.8 % Platelet Count 330 TH/MM3 Mean Platelet Volume 8.0 FL Neutrophils (%) (Auto) % Lymphocytes (%) (Auto) % Monocytes (%) (Auto) % Eosinophils (%) (Auto) % Basophils (%) (Auto) % Neutrophils # (Auto) TH/MM3 Lymphocytes # (Auto) TH/MM3 Monocytes # (Auto) TH/MM3 Eosinophils # (Auto) TH/MM3 Basophils # (Auto) TH/MM3 CBC Comment AUTO DIFF Differential Total Cells 100 Counted Neutrophils % (Manual) 6 % Band Neutrophils % 25 % Lymphocytes % 68 % Monocytes % 1 % Neutrophils # (Manual) 0.3 TH/MM3 Nucleated Red Blood Cells 1 /100 WBC Differential Comment FINAL DIFF MANUAL Toxic Granulation 2+ Toxic Vacuolation PRESENT Dohle Bodies PRESENT Platelet Estimate NORMAL Platelet Morphology Comment ENLARGED Administered Medications Medications (Trade) Dose Ordered Sig/Prashant Route PRN Reason Start Time Stop Time Status Last Admin Dose Admin Carisoprodol (Soma) 350 mg TID PRN PO PAIN 05/16/16 17:30 06/22/16 01:21 Furosemide (Lasix) 20 mg DAILY PO 05/17/16 09:00 06/25/16 09:26 Gabapentin (Neurontin) 300 mg TID PO 05/16/16 18:00 2/8/17 09:25 Levothyroxine Sodium (Synthroid) 25 mcg DAILY@06 PO 05/17/16 06:00 06/25/16 06:20 Potassium Chloride (KCl) 10 meq DAILY PO 05/17/16 09:00 06/25/16 09:25 Famotidine (Pepcid) 20 mg BID PO 05/16/16 21:00 Hold 06/22/16 08:41 IV Flush (NS Flush) 2 ml UNSCH PRN IV FLUSH AFTER USING IV ACCESS 05/16/16 17:45 06/25/16 02:37 IV Flush (NS Flush) 2 ml BID IV 05/16/16 21:00 06/25/16 09:34 Ondansetron HCl (Zofran Inj) 4 mg Q6H PRN IV NAUSEA 05/16/16 17:45 06/24/16 20:48 Acetaminophen (Tylenol) 650 mg Q6HR PRN PO headache 05/17/16 06:30 06/25/16 09:25 Oxycodone/ Acetaminophen (Percocet 5-325 Mg) 1 tab Q4H PRN PO pain 1-5 05/20/16 10:00 06/14/16 11:36 Oxycodone HCl (Roxicodone) 10 mg Q4H PRN PO pain 6-10 05/21/16 16:00 06/25/16 09:24 IV Flush (NS Flush) DAILY IVF 05/24/16 09:00 06/25/16 09:00 Heparin Sodium (Porcine) (Heparin Central Flush) DAILY IVF 05/24/16 09:00 06/23/16 08:22 IV Flush (NS Flush) UNSCH PRN IVF SEE PROTOCOL 05/23/16 15:30 06/25/16 03:53 Heparin Sodium (Porcine) (Heparin Central Flush) UNSCH PRN IVF SEE PROTOCOL 05/23/16 15:30 06/25/16 03:50 Docusate Sodium (Colace) 100 mg BID PO 05/24/16 11:00 Hold 06/05/16 07:58 Morphine Sulfate (Morphine Inj) 2 mg Q2HR PRN IV PUSH SEVERE BREAKTHROUGH PAIN 05/27/16 08:45 06/24/16 19:34 Diazepam (Valium) 10 mg Q12HR PO 05/28/16 09:00 06/25/16 09:25 Temazepam 15 mg 15 mg HS PRN PO SLEEP 05/28/16 08:00 06/01/16 22:23 Cefepime HCl 2000 mg/Sodium Chloride 100 ml @ 200 mls/hr Q8H IV 06/05/16 18:00 06/25/16 09:36 Micafungin Sodium/ Sodium Chloride (Mycamine Inj/NS Inj) 100 ml @ 100 mls/hr Q24H IV 06/10/16 16:00 06/24/16 14:58 Potassium Phos/ Sodium Phos (K-Phos Neutral) 250 mg Q6HR PO 06/12/16 12:00 06/25/16 06:21 Acyclovir (Zovirax) 400 mg DAILY PO 06/17/16 09:00 Hold 06/22/16 08:42 Pantoprazole Sodium (Protonix) 20 mg DAILY PO 06/17/16 09:00 Hold 06/22/16 08:41 Diphenoxylate HCl/ Atropine (Lomotil Tab) 1 tab Q6H PRN PO LOOSE STOOL 06/20/16 07:45 06/21/16 09:33 Filgrastim (Neupogen Inj) 480 mcg DAILY@14 SQ 06/24/16 14:00 06/24/16 12:37 IV Flush (NS Flush) DAILY IVF 06/25/16 09:00 06/25/16 09:00 Objective Remarks GENERAL: Middle aged female, sitting up in bed in nad SKIN: Warm and dry. +alopecia. huang catheter site clean. HEAD: Normocephalic. EYES: No injection or drainage. NECK: Supple, trachea midline. CARDIOVASCULAR: Regular rate and rhythm RESPIRATORY: Breath sounds equal bilaterally. No accessory muscle use. GASTROINTESTINAL: Abdomen soft, non-tender, nondistended. EXTREMITIES: No cyanosis. NEUROLOGICAL: No obvious focal deficit. Awake, alert, and oriented x3. Assessment/Plan Problem List: (1) AML (acute myeloid leukemia) Status: Acute Plan: 06/25/16: D30. moderate improvement, neutrophil count 0.3. hopefully will improve enough tomorrow that we can d/c. will give another dose of Neupogen. 06/24/16: will give Neupogen 480mcg x 1 today. monitor WBC for improvement. 06/23/16: await recovery of bone marrow. if no improvement in WBC tomorrow, will give Neupogen 06/22/16: will give B12 injection to help enhance hematopoiesis. monitor WBC. give 1 unit pRBC for symptomatic anemia. Vanco placed on hold. 06/21/16: awaiting WBC recovery. platelets continuing to improve. 06/20/16: D25. slight bump in WBC. platelets improving. 06/19/16: D24. Platelet counts starting to improve. Continue to wait for white cells to recover. Pt doing very well clinically. 06/18/16: D23. Doing well. We will await counts to improve/ bone marrow recovery. Absolute neutrophil count still at 0 today. 06/17/16: D22. bone marrow biopsy shows no residual leukemia. awaiting bone marrow recovery. nausea resolved. diarrhea persistent. 06/16/16: D21: waiting on bone marrow recovery. flow shows only 0.08% blasts. awaiting pathology. no diarrhea since last night. fs faxed to [facility] for follow up after discharge. 06/15/16: diarrhea worsening. suspect abx side effect. will stop allopurinol as this also may be contributing. 06/14/16: D19. no transfusion needed today. mild headache. monitor. Having some diarrhea, C. difficile negative 2. 06/13/16: D18. BMB today. no nausea. stable. 06/12/16:D17: Intermittent headache. Blood counts stable. Bone marrow biopsy tomorrow. 06/11/16: D16. Doing well today. Counts stable. Headache improved; CT brain negative. Will plan for bone marrow biopsy with IR on Thursday. 06/10/16: D15. 1 unit plts. dizzy w/ headache. CT brain pending 06/09/16:D14. 2 units pRBC today. 06/08/16: No issues overnight. Plt's are low at 11,000. Likely will drop again tomorrow, so we will transfuse x1 dose today. No bleeding. 06/07/16: Afebrile. Neutropenic precautions continue. 06/06/16: afebrile overnight. continue abx per ID. pain pump refilled. 06/05/16: spiked fever overnight. started on Cefepime. Levaquin stopped. ID consulted. CT ab/pelvis negative 06/04/16: D9. 1 unit plt 06/03/16: D8 chemo finishes late tonight. started on acyclovir/diflucan/levaquin for prophylaxis. 06/01/16: D6. nauseated. otherwise no events. continue chemo. 05/31/16:D5. no events. 05/30/16: D4 chemotherapy. no transfusion today. 05/29/16: D3 chemotherapy. Tolerated well Blood counts trending lower. Transfuse PRBC 2U. CSF cytology negative. 05/28/16: Tolerated chemo well, no significant side effect. Blood counts started to trend down. 05/27/16: D1. Abril-C + Idarubicin. AML w/ intermediate risk cytogenetics. (2) Pancytopenia Status: Acute Plan: transfuse for platelets less than 10k and a Hgb of less than 7. (3) presence of pain pump Status: Chronic Plan: --patient with intrathecal pain pump --managed by Dr. Omer outpatient --pain pump refilled on 06/06/16 Assessment 61y/o female with AML, s/p induction with ABRIL-C + KELSEA. Plan 1. give Neupogen again today 2. schedule appointment at [facility] 3. hopefully home tomorrow. Attending Statement The exam, history, and the medical decision-making described in the above note were completed with the assistance of the mid-level provider. I reviewed and agree with the findings presented. I attest that I had a [id number] encounter with the patient on the same day, and personally performed and documented my assessment and findings in the medical record. Intermittent diarrhea. Had headache last night. ANC up to 0.3 and looks like WBC is recovering. Hgb and platelet are stable, no transfusion needed today. Continue supportive care. Problem Qualifiers (1) AML (acute myeloid leukemia): Qualified Code: C92.00 - Acute myeloid leukemia not having achieved remission Radha Lawrence Jun 25, 2016 09:49 Ryan Tripp MD Jun 25, 2016 12:54
[2016-06-25] MEDS: MORPHINE SULFATE 4 MG/ML INJ IV PUSH PRN ×2 (11:43→16:11)
[2016-06-25] MEDS: FILGRASTIM 480 MCG/1.6 ML VIAL SQ SCH (13:59)
[2016-06-25 16:00] VITALS: BP 108/53; PULSE 80; RESP 18; TEMP 98; O2SAT 94
[2016-06-25] MEDS: MICAFUNGIN INJ 100 MG in SODIUM CHLORIDE 0.9% INJ 100 ML IV SCH (16:11)
[2016-06-25 20:00] VITALS: BP 130/60; PULSE 88; RESP 18; TEMP 98; O2SAT 92
[2016-06-25] MEDS: ONDANSETRON HCL 4 MG/2 ML VIAL IV PRN (20:52)
[2016-06-26] VITALS: BP 96/53; PULSE 79; RESP 18; TEMP 98; O2SAT 93
[2016-06-26 00:05] LABS: C. DIFF EPI 027 PRESUMPTIVE NEGATIVE (NEGATIVE); C. DIFF TOXIN PCR NEGATIVE (NEGATIVE)
[2016-06-26] MEDS: POTASSIUM PHOSPHATE/SODIUM PHOSPHATE 250 MG TAB PO SCH ×3 (00:28→10:56)
[2016-06-26] MEDS: LACTATED RINGER'S 1000 ML IV SCH (00:31)
[2016-06-26] MEDS: CEFEPIME INJ 2,000 MG in SODIUM CHLORIDE 0.9% INJ 100 ML IV SCH ×2 (02:33→09:21)
[2016-06-26] MEDS: LEVOTHYROXINE SODIUM 25 MCG TAB PO SCH (05:28)
[2016-06-26] MEDS: ACETAMINOPHEN 325 MG TAB PO PRN (05:29)
[2016-06-26 06:37] LABS: BASOPHIL % 0.3 % (0.0-2.0); EOSINOPHIL % 0.2 % (0.0-4.0); HEMATOCRIT 23.6 % (35.0-46.0); LYMPH % 45.6 % (9.0-44.0); LYMPHOCYTE # 0.9 TH/MM3 (1.0-4.8); MEAN CELL VOLUME 88.2 FL (80.0-100.0); MEAN CORPUSCULAR HEMOGLOBIN 30.3 PG (27.0-34.0); MEAN CORPUSCULAR HGB CONC 34.3 % (32.0-36.0); MONO % 2.5 % (0.0-8.0); NEUT % 51.4 % (16.0-70.0); PLATELET COUNT 424 TH/MM3 (150-450); RED BLOOD COUNT 2.67 MIL/MM3 (4.00-5.30); RED CELL DISTRIBUTION WIDTH 12.8 % (11.6-17.2); WHITE BLOOD COUNT 1.9 TH/MM3 (4.0-11.0)
[2016-06-26 06:44] LABS: HEMO FLAGS AUTO DIFF
[2016-06-26 07:53] LABS: BANDS 37 % (0-6); BASOPHILS 1 % (0-2); BLASTS 1 % (0-0); CORRECTED NUCLEATED RBC 1 /100 WBC (0-0); EOSINOPHILS 1 % (0-4); METAMYELOCYTES 1 % (0-1); MYELOCYTES 2 % (0-0); NEUTROPHIL # MANUAL DIFF 0.9 TH/MM3 (1.8-7.7); POLYS (SEG NEUTROPHILS) 7 % (16-70); PROMYELOCYTES 1 % (0-0); WBC DIFF SAMPLE 100
[2016-06-26 07:55] LABS: DOHLE BODIES PRESENT (NONE SEEN); TOXIC GRANULATION 1+ (NORMAL)
[2016-06-26 07:56] LABS: PLATELET ESTIMATE SMEAR NORMAL (NORMAL); PLATELET MORPHOLOGY NORMAL (NORMAL); SCAN/DIFF FINAL DIFF MANUAL
[2016-06-26 08:00] VITALS: BP 111/55; PULSE 79; RESP 18; TEMP 98.3; O2SAT 96
[2016-06-26] MEDS ORDERED: SODIUM CHLOR 0.9% 250 ML INJ 250 ML IV ONE (08:15)
[2016-06-26] MEDS ORDERED: diphenhydrAMINE HCL 25 MG CAP PO PRN (08:15)
[2016-06-26] MEDS ORDERED: ACETAMINOPHEN 325 MG TAB PO PRN (08:15)
[2016-06-26] MEDS: POTASSIUM CHLORIDE 10 MEQ CAP PO SCH (09:20)
[2016-06-26] MEDS: GABAPENTIN 300 MG CAP PO SCH ×2 (09:20→13:56)
[2016-06-26] MEDS: FUROSEMIDE 20 MG TAB PO SCH (09:20)
[2016-06-26] MEDS: DIAZEPAM 10 MG TAB PO SCH (09:20)
[2016-06-26] MEDS: SODIUM CHLORIDE 0.9% FLUSH 5 ML FLUSH IVF SCH ×2 (09:21→09:22)
--- NOTE | 2016-06-26 09:49 | HHI.PR ---
Subjective Remarks resting comfortably with no distress. no fever. no new complaints. Objective Vitals Vital Signs Date Time Temp Pulse Resp B/P Pulse Ox O2 Delivery O2 Flow Rate FiO2 06/26/16 08:00 98.3 79 18 111/55 96 06/26/16 00:00 98.0 79 18 96/53 93 06/25/16 20:00 98.0 88 18 130/60 92 06/25/16 16:00 98.0 80 18 108/53 94 I/O 06/25/16 06/25/16 06/25/16 06/26/16 06/26/16 06/26/16 07:00 15:00 23:00 07:00 15:00 23:00 Intake Total 3310 ml 480 ml Balance 3310 ml 480 ml Intake Oral 3310 ml 480 ml # Voids 5 2 2 # Bowel Movements 1 Result Diagram: 06/26/16 0533 06/24/16 0300 Imaging Last Impressions Catheter Placement X-Ray 06/24/16 0000 Signed Impressions: Service Date/Time: Friday, June 24, 2016 13:47 - CONCLUSION: 1. Uncomplicated Donaldson catheter exchange as above. 2. Patient should have the dermatotomy cerclage removed in approximately 10-14 days. This can be performed in the oncology clinic or in radiology outpatient unit. Reddy Damian MD Bone Biopsy CT 06/13/16 0000 Signed Impressions: Service Date/Time: Monday, June 13, 2016 08:35 - CONCLUSION: 1. Uncomplicated CT guided bone marrow aspirate. 2. Uncomplicated CT guided bone marrow biopsy. Juan Carlos Cherry MD FACR Head CT 06/10/16 0000 Signed Impressions: Service Date/Time: Friday, June 10, 2016 14:56 - CONCLUSION: Stable noncontrast head CT. No acute intracranial abnormality is identified. Bravo Jackman MD Abdomen/Pelvis CT 06/05/16 0000 Signed Impressions: Service Date/Time: May 22:13 - CONCLUSION: Minimal fluid in the pelvis, otherwise unremarkable. Cynthia Guardado MD Chest X-Ray 06/04/16 0000 Signed Impressions: Service Date/Time: Saturday, June 04, 2016 21:23 - CONCLUSION: No acute disease. Kilo Cotto MD Lumbar Puncture Fluoroscopy 05/23/16 0000 Signed Impressions: Service Date/Time: Monday, May 23, 2016 14:16 - CONCLUSION: Uncomplicated fluoroscopically guided lumbar puncture. Bubba Cherry MD Chest CT 05/17/16 0000 Signed Impressions: Service Date/Time: Tuesday, May 17, 2016 15:14 - CONCLUSION: 1. 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 There are trace to very small bilateral pleural effusions and mild cardiomegaly noted. 2. No lobar consolidation. 3. Upper limits of normal to mildly enlarged mediastinal and bilateral hilar lymph nodes, nonspecific but presumably reactive. Bravo Mendez MD Objective Remarks GENERAL: This is a well-nourished, well-developed patient, in no apparent distress. CARDIOVASCULAR: Regular rate and regular rhythm without murmurs, gallops, or rubs. RESPIRATORY: Clear to auscultation. Breath sounds equal bilaterally. No wheezes , rales, or rhonchi. GASTROINTESTINAL: Abdomen soft, non-tender, nondistended. Normal, active bowel sounds MUSCULOSKELETAL: Extremities without clubbing, cyanosis, or edema. NEURO: Alert & Oriented x4 to person, place, time, situation. Moves all ext x4 Procedures EGD/ colonoscopy Bone marrow biopsy Medications and IVs Current Medications Sodium Chloride (NS 1000 ml Inj) 1,000 ml @ 1,000 mls/hr Q1H IV Last administered on 05/16/16 15:22; Start 05/16/16 at 14:49; Stop 05/16/16 at 15 :48; Status DC IV Flush (NS Flush) 2 ml UNSCH PRN IVF FLUSH AFTER USING IV ACCESS Last administered on 05/16/16 16:58; Start 05/16/16 at 15:00; Stop 05/16/16 at 17 :36; Status DC Pantoprazole Sodium (Protonix Inj) 40 mg ONCE ONCE IV PUSH Last administered on 05/16/16 16:57; Start 05/16/16 at 16:45; Stop 05/16/16 at 16:46; Status DC Carisoprodol (Soma) 350 mg TID PRN PO PAIN Last administered on 06/22/16 01:21 ; Start 05/16/16 at 17:30 Furosemide (Lasix) 20 mg DAILY PO Last administered on 06/26/16 09:20; Start 05/17/16 at 09:00 Gabapentin (Neurontin) 300 mg TID PO Last administered on 06/26/16 09:20; Start 05/16/16 at 18:00 Levothyroxine Sodium (Synthroid) 25 mcg DAILY@06 PO Last administered on 05:28; Start 05/17/16 at 06:00 Potassium Chloride (KCl) 10 meq DAILY PO Last administered on 06/26/16 09:20; Start 05/17/16 at 09:00 Famotidine 20 mg 20 mg BID PO Last administered on 06/22/16 08:41; Start 05/16 at 21:00 Sodium Chloride (NS 1000 ml Inj) 1,000 ml @ 75 mls/hr [id number] IV Last administered on 05/16/16at 17:59; Start 05/16/16 at 17:31; Stop 05/17/16 at 06 :50; Status DC IV Flush (NS Flush) 2 ml UNSCH PRN IV FLUSH AFTER USING IV ACCESS Last administered on 06/25/16 02:37; Start 05/16/16 at 17:45 IV Flush (NS Flush) 2 ml BID IV Last administered on 06/25/16 20:32; Start at 21:00 Ondansetron HCl (Zofran Inj) 4 mg Q6H PRN IV NAUSEA Last administered on 20:52; Start 05/16/16 at 17:45 Pantoprazole Sodium (Protonix Inj) 40 mg Q24H IV PUSH Last administered on 08:42; Start 05/17/16 at 09:00; Stop 05/21/16 at 14:52; Status DC Influenza Virus Vaccine (Flu (Quadrivalent) Vaccine Inj) 0.5 ml ONCE ONCE IM Last administered on 05/17/16at 11:51; Start 05/17/16 at 10:00; Stop 05/17/16 at 10:01; Status DC Acetaminophen (Tylenol) 650 mg Q6HR PRN PO headache Last administered on 05:29; Start 05/17/16 at 06:30 Diatrizoate Meglum/ Diatrizoate Sod ( Gastromorgan Liq) 18 ml ONCE ONCE PO Last administered on 05/17/16at 11:49; Start 05/17/16 at 11:15; Stop 05/17/16 at 11:16; Status DC Iohexol (Omnipaque 350 Inj) 75 ml STK-MED ONCE IV Last administered on at 15:29; Start 05/17/16 at 15:29; Stop 05/17/16 at 15:30; Status DC Diazepam (Valium) 10 mg Q12HR PO Last administered on 05/24/16 08:12; Start 05/18/16 at 12:00; Stop 05/24/16 at 13:36; Status DC Polyethylene Glycol/ Electrolytes 4000 ml 4,000 ml ONCE ONCE PO Last administered on 05/19/16 16:34; Start 05/19/16 at 16:00; Stop 05/19/16 at 16:01; Status DC Lactated Ringer's (Lr 1000 ml Inj) 1,000 ml @ 30 mls/hr Q24H IV ; Start at 01:15 Acetaminophen (Tylenol) 650 mg ONCE ONCE PO Last administered on 05/20/16 05: 00; Start 05/20/16 at 05:00; Stop 05/20/16 at 05:03; Status DC Lidocaine/ Epinephrine 20 ml 20 ml STK-MED ONCE .ROUTE Last administered on 05/20 08:36; Start 05/20/16 at 08:36; Stop 05/20/16 at 08:49; Status DC Sodium Bicarbonate (Sodium Bicarbonate 8.4% Inj) 50 ml @ As Directed STK-MED ONCE .ROUTE Last administered on 05/20/16 08:36; Start 05/20/16 at 08:36; Stop 05/20/16 at 08:50; Status DC Fentanyl Citrate (fentaNYL INJ) 250 mcg STK-MED ONCE .ROUTE Last administered on 05/20/16 08:43; Start 05/20/16 at 08:43; Stop 05/20/16 at 08:51; Status DC Midazolam HCl (Versed Inj) 5 mg STK-MED ONCE .ROUTE Last administered on 08:43; Start 05/20/16 at 08:43; Stop 05/20/16 at 08:51; Status DC Oxycodone/ Acetaminophen (Percocet 5-325 Mg) 1 tab Q4H PRN PO pain 1-5 Last administered on 06/14/16 11:36; Start 05/20/16 at 10:00 Propofol (Diprivan 200 Mg/20 ml Inj) 310 mg STK-MED ONCE IV ; Start 05/20/16 at 12:55; Stop 05/20/16 at 13:30; Status DC Mesalamine (Canasa Supp) 1,000 mg HS RECTAL ; Start 05/20/16 at 21:00; Status Hold Pantoprazole Sodium (Protonix) 40 mg DAILY PO Last administered on 06/17/16 08 :07; Start 05/22/16 at 09:00; Stop 06/17/16 at 08:57; Status DC Oxycodone HCl (Roxicodone) 10 mg Q4H PRN PO pain 6-10 Last administered on 07:13; Start 05/21/16 at 16:00 Acetaminophen/ Butalbital/ Caffeine 1 tab 1 tab ONCE ONCE PO Last administered on 05/21/16 17:42; Start 05/21/16 at 16:00; Stop 05/21/16 at 16:04; Status DC Vancomycin HCl 1000 mg/Sodium Chloride 250 ml @ 250 mls/hr DORMITORY MAID IV Last administered on 05/23/16 13:00; Start 05/22/16 at 16:45; Stop 05/26/16 at 16:44; Status DC Cefazolin Sodium/ Dextrose (Ancef 2 Gm Premix) 50 ml @ 100 mls/hr DORMITORY MAID IV ; Start 05/22/16 at 18:00; Stop 05/26/16 at 17:59; Status DC Bisacodyl (Dulcolax Supp) 10 mg DAILY PRN [place] CONSTIPATION Last administered on 05/22/16 22:31; Start 05/22/16 at 22:15; Stop 05/24/16 at 10:23; Status DC Sodium Biphosphate/ Sodium Phosphate (Fleets Enema (Adult)) 133 ml ONCE PRN [place] constipation; Start 05/22/16 at 22:15; Stop 05/23/16 at 22:14; Status Cancel Midazolam HCl (Versed Inj) 5 mg STK-MED ONCE .ROUTE Last administered on 13:44; Start 05/23/16 at 13:44; Stop 05/23/16 at 13:45; Status DC Fentanyl Citrate (fentaNYL INJ) 250 mcg STK-MED ONCE .ROUTE Last administered on 05/23/16 13:44; Start 05/23/16 at 13:44; Stop 05/23/16 at 13:45; Status DC Heparin Sodium (Porcine) (*HEPARIN CENTRAL FLUSH PERIprocedural ONLY) 500 units STK-MED ONCE .ROUTE Last administered on 05/23/16 15:20; Start 05/23/16 at 14:30 ; Stop 05/23/16 at 14:31; Status DC Lidocaine/ Epinephrine (Xylocaine-Epi 1%-1:100,000 Inj) 20 ml STK-MED ONCE .ROUTE Last administered on 05/23/16 15:02; Start 05/23/16 at 14:30; Stop at 14:31; Status DC Midazolam HCl (Versed Inj) 5 mg STK-MED ONCE .ROUTE Last administered on 15:10; Start 05/23/16 at 15:10; Stop 05/23/16 at 15:11; Status DC Fentanyl Citrate 250 mcg 250 mcg STK-MED ONCE .ROUTE Last administered on 15:10; Start 05/23/16 at 15:10; Stop 05/23/16 at 15:11; Status DC Ceftriaxone Sodium/Sodium Chloride (Rocephin Inj/NS Inj) 100 ml @ 200 mls/hr Q24H IV Last administered on 05/30/16 17:19; Start 05/23/16 at 16:00; Stop at 09:52; Status DC IV Flush (NS Flush) DAILY IVF Last administered on 06/26/16 09:21; Start at 09:00 Heparin Sodium (Porcine) (Heparin Central Flush) DAILY IVF Last administered on 06/26/16 09:20; Start 05/24/16 at 09:00 IV Flush (NS Flush) UNSCH PRN IVF SEE PROTOCOL Last administered on 06/25/16 03:53; Start 05/23/16 at 15:30 Heparin Sodium (Porcine) (Heparin Central Flush) UNSCH PRN IVF SEE PROTOCOL Last administered on 06/25/16 03:50; Start 05/23/16 at 15:30 Docusate Sodium (Colace) 100 mg BID PO Last administered on 06/05/16 07:58; Start 05/24/16 at 11:00; Status Hold Lactulose (Lactulose Liq) 30 ml ONCE ONCE PO Last administered on 05/24/16 12: 15; Start 05/24/16 at 10:30; Stop 05/24/16 at 10:31; Status DC Lorazepam (Ativan) 1 mg Q4HR PRN PO anxiety Last administered on 05/24/16 22:38 ; Start 05/24/16 at 13:45; Stop 05/25/16 at 09:00; Status DC Lorazepam (Ativan) 1 mg ONCE ONCE PO Last administered on 05/24/16 14:27; Start 05/24/16 at 13:45; Stop 05/24/16 at 13:46; Status DC Lorazepam (Ativan) 2 mg Q6H PRN PO anxiety Last administered on 05/27/16 07:35 ; Start 05/25/16 at 08:59; Stop 05/28/16 at 08:03; Status DC Lactulose (Lactulose Liq) 30 ml QID PO Last administered on 05/25/16 20:06; Start 05/25/16 at 13:00; Stop 05/25/16 at 21:01; Status DC Polyethylene Glycol (Miralax) 17 gm DAILY PO Last administered on 06/04/16 08: 27; Start 05/25/16 at 14:30; Stop 06/15/16 at 10:54; Status DC Lactic Acid (Lac-Hydrin 12% Lotion) 1 applic BID PRN TOPICAL irritation; Start 05/25/16 at 14:30 Sumatriptan Succinate 25 mg 25 mg ONCE ONCE PO Last administered on 05/25/16 20:06; Start 05/25/16 at 19:45; Stop 05/25/16 at 19:47; Status DC Sodium Chloride (NS 1000 ml Inj) 1,000 ml @ 100 mls/hr Q10H IV Last administered on 06/15/16 10:35; Start 05/26/16 at 09:30; Stop 06/15/16 at 10:54 ; Status DC Allopurinol (Zyloprim) 300 mg DAILY PO Last administered on 06/15/16 08:04; Start 05/26/16 at 09:30; Stop 06/15/16 at 10:19; Status DC Morphine Sulfate 2 mg 2 mg ONCE ONCE IV PUSH Last administered on 05/26/16 10: 46; Start 05/26/16 at 10:30; Stop 05/26/16 at 10:31; Status DC Idarubicin HCl 22.6 mg/Sodium Chloride 122.6 ml @ 490.4 mls/ hr Q24H IV ; Start 05/26/16 at 16:00; Stop 05/26/16 at 17:07; Status DC Granisetron HCl 1 mg/Dexamethasone Sodium Phosphate 20 mg/Sodium Chloride 56 ml @ 336 mls/hr Q24H IV ; Start 05/26/16 at 15:30; Stop 05/26/16 at 17:09; Status DC Cytarabine 189 mg/ Sodium Chloride 500 ml @ 20.833 mls/ hr Q24H IV ; Start 05/26 at 17:00; Stop 05/26/16 at 17:08; Status DC Idarubicin HCl 22.6 mg/Sodium Chloride 122.6 ml @ 490.4 mls/ hr Q24H IV Last administered on 05/29/16 09:00; Start 05/27/16 at 09:00; Stop 05/29/16 at 09:14 ; Status DC Cytarabine 189 mg/ Sodium Chloride 500 ml @ 20.833 mls/ hr Q24H IV Last administered on 06/03/16 04:14; Start 05/27/16 at 10:00; Stop 06/03/16 at 09:59 ; Status DC Granisetron HCl/ Dexamethasone Sodium Phosphate/ Sodium Chloride (Kytril Inj/ Decadron Inj/NS Inj) 56 ml @ 336 mls/hr Q24H IV Last administered on 22:22; Start 05/27/16 at 08:30; Stop 06/02/16 at 08:39; Status DC Morphine Sulfate (Morphine Inj) 2 mg Q2HR PRN IV PUSH SEVERE BREAKTHROUGH PAIN Last administered on 06/25/16 16:11; Start 05/27/16 at 08:45 Lactulose (Lactulose Liq) 30 ml DAILY PO Last administered on 06/05/16 07:57; Start 05/27/16 at 09:00; Stop 06/15/16 at 10:54; Status DC Diazepam (Valium) 10 mg Q12HR PO Last administered on 06/26/16 09:20; Start 04/03 at 09:00 Temazepam 15 mg 15 mg HS PRN PO SLEEP Last administered on 06/01/16 22:23; Start 05/28/16 at 08:00 Sodium Chloride (NS 250 ml Inj) 250 ml @ 15 mls/hr ONCE ONCE IV Last administered on 05/29/16 14:07; Start 05/29/16 at 08:00; Stop 05/30/16 at 00:39 ; Status DC Acetaminophen (Tylenol) 650 mg Q4H PRN PO SEE LABEL COMMENTS; Start 05/29/16 at 08:00; Stop 05/29/16 at 12:01; Status DC Diphenhydramine HCl (Benadryl) 25 mg Q4H PRN PO SEE LABEL COMMENTS; Start 05/29 at 08:00; Stop 05/29/16 at 12:01; Status DC Diphenhydramine HCl (Benadryl) 25 mg Q4H PRN PO SEE LABEL COMMENTS Last administered on 05/29/16 12:54; Start 05/29/16 at 13:00; Stop 05/29/16 at 17:01 ; Status DC Acetaminophen (Tylenol) 650 mg Q4H PRN PO SEE LABEL COMMENTS Last administered on 05/29/16 12:54; Start 05/29/16 at 13:00; Stop 05/29/16 at 17:01; Status DC Diphenhydramine HCl (Benadryl) 25 mg Q4H PRN PO SEE LABEL COMMENTS Last administered on 05/29/16 21:21; Start 05/29/16 at 21:15; Stop 05/30/16 at 01:16 ; Status DC Multi-Ingredient Mouthwash/Gargle (Magic Mouthwash Adult Liq) 5 ml QID SWISH- SWAL Last administered on 06/11/16 08:45; Start 06/03/16 at 09:00; Stop at 12:03; Status DC Acyclovir (Zovirax) 400 mg Q8HR PO Last administered on 06/16/16 05:44; Start 06/03/16 at 14:00; Stop 06/16/16 at 13:56; Status DC Fluconazole (Diflucan) 200 mg DAILY PO Last administered on 06/10/16 09:22; Start 06/03/16 at 09:00; Stop 06/10/16 at 15:16; Status DC Levofloxacin 250 mg 250 mg DAILY@11 PO Last administered on 06/04/16 11:27; Start 06/03/16 at 11:00; Stop 06/05/16 at 07:46; Status DC Sodium Chloride (NS 250 ml Inj) 250 ml @ 15 mls/hr ONCE ONCE IV ; Start at 09:00; Stop 06/05/16 at 01:39; Status DC Acetaminophen (Tylenol) 650 mg Q4H PRN PO SEE LABEL COMMENTS Last administered on 06/04/16 11:27; Start 06/04/16 at 09:00; Stop 06/04/16 at 13:01; Status DC Diphenhydramine HCl 25 mg 25 mg Q4H PRN PO SEE LABEL COMMENTS Last administered on 06/04/16 11:27; Start 06/04/16 at 09:00; Stop 06/04/16 at 13:01 ; Status DC Cefepime HCl/ Sodium Chloride (Maxipime Inj/NS Inj) 100 ml @ 200 mls/hr Q12H IV Last administered on 06/05/16 10:41; Start 06/04/16 at 22:00; Stop at 13:37; Status DC Diatrizoate Meglum/ Diatrizoate Sod 18 ml 18 ml ONCE ONCE PO Last administered on 06/05/16 13:19; Start 06/05/16 at 13:00; Stop 06/05/16 at 13:01 ; Status DC Cefepime HCl/ Sodium Chloride (Maxipime Inj/NS Inj) 100 ml @ 200 mls/hr Q8H IV Last administered on 06/26/16 09:21; Start 06/05/16 at 18:00 Azithromycin 500 mg 500 mg DAILY PO Last administered on 06/10/16 09:21; Start 06/05/16 at 14:00; Stop 06/10/16 at 15:16; Status DC Vancomycin HCl 1000 mg/Sodium Chloride 250 ml @ 250 mls/hr ONCE ONCE IV Last administered on 06/05/16 14:44; Start 06/05/16 at 14:00; Stop 06/05/16 at 14:59 ; Status DC Pharmacy Profile Note (Vancomycin Consult Pharmacy) 0 ml @ 0 mls/hr UNSCH OTHER ; Start 06/05/16 at 13:45; Stop 06/24/16 at 13:50; Status DC Metronidazole 500 mg 500 mg Q8HR PO Last administered on 06/18/16 13:42; Start 06/05/16 at 14:00; Stop 06/18/16 at 14:14; Status DC Vancomycin HCl/ Sodium Chloride (Vancomycin Inj/ NS 250 ml Inj) 262.5 ml @ 250 mls/hr Q12H IV Last administered on 06/10/16 01:03; Start 06/06/16 at 00:00; Stop 06/10/16 at 15:30; Status DC Miscellaneous Information SPECIFIC LAB TO BE DRAWN:VANCOMYCIN TROUGH DATE TO... ONCE ONCE XX Last administered on 06/07/16 11:45; Start 06/07/16 at 11:45; Stop 06/07/16 at 11:46; Status DC Iohexol (Omnipaque 350 Inj) 100 ml STK-MED ONCE IV Last administered on 22:20; Start 06/05/16 at 22:20; Stop 06/05/16 at 22:21; Status DC Patient Own Medication PT OWN MED: HYDROMORPHONE 40 MG/... UNSCH OTHER ; Start 06/06/16 at 11:00 Sodium Chloride (NS 250 ml Inj) 250 ml @ 15 mls/hr ONCE ONCE IV Last administered on 06/06/16 16:45; Start 06/06/16 at 12:45; Stop 06/07/16 at 05:24 ; Status DC Acetaminophen (Tylenol) 650 mg Q4H PRN PO SEE LABEL COMMENTS Last administered on 06/06/16 16:19; Start 06/06/16 at 12:45; Stop 06/06/16 at 16:46; Status DC Diphenhydramine HCl (Benadryl) 25 mg Q4H PRN PO SEE LABEL COMMENTS Last administered on 06/06/16 16:18; Start 06/06/16 at 12:45; Stop 06/06/16 at 16:46 ; Status DC Miscellaneous Information SPECIFIC LAB TO BE VIKRAM... ONCE ONCE XX Last administered on 06/08/16 13:45; Start 06/08/16 at 11:45; Stop 06/08/16 at 11:46 ; Status DC Sodium Chloride (NS 250 ml Inj) 250 ml @ 15 mls/hr ONCE ONCE IV Last administered on 06/08/16 13:00; Start 06/08/16 at 13:00; Stop 06/09/16 at 05:39 ; Status DC Diphenhydramine HCl 25 mg 25 mg Q4H PRN PO SEE LABEL COMMENTS; Start 06/08/16 at 13:00; Stop 06/08/16 at 17:01; Status DC Sodium Chloride (NS 250 ml Inj) 250 ml @ 15 mls/hr ONCE ONCE IV Last administered on 06/09/16 11:51; Start 06/09/16 at 07:30; Stop 06/10/16 at 00:09 ; Status DC Acetaminophen (Tylenol) 650 mg Q4H PRN PO SEE LABEL COMMENTS; Start 06/09/16 at 07:30; Stop 06/09/16 at 11:31; Status DC Diphenhydramine HCl (Benadryl) 25 mg Q4H PRN PO SEE LABEL COMMENTS; Start 06/09 at 07:30; Stop 06/09/16 at 11:31; Status DC Loperamide HCl 2 mg 2 mg UNSCH PRN PO DIARRHEA Last administered on 06/15/16 08:03; Start 06/09/16 at 11:15; Stop 06/15/16 at 10:54; Status DC Magnesium Sulfate/ Dextrose 100 ml @ 100 mls/hr Q1H IV Last administered on 15:35; Start 06/10/16 at 09:15; Stop 06/10/16 at 11:14; Status DC Sodium Chloride (NS 250 ml Inj) 250 ml @ 15 mls/hr ONCE ONCE IV Last administered on 06/10/16 12:26; Start 06/10/16 at 09:30; Stop 06/11/16 at 02:09 ; Status DC Acetaminophen (Tylenol) 650 mg Q4H PRN PO SEE LABEL COMMENTS Last administered on 06/10/16 10:57; Start 06/10/16 at 09:30; Stop 06/10/16 at 13:31; Status DC Diphenhydramine HCl 25 mg 25 mg Q4H PRN PO SEE LABEL COMMENTS Last administered on 06/10/16 10:57; Start 06/10/16 at 09:30; Stop 06/10/16 at 13:31 ; Status DC Micafungin Sodium 100 mg/Sodium Chloride 100 ml @ 100 mls/hr Q24H IV Last administered on 06/25/16 16:11; Start 06/10/16 at 16:00 Vancomycin HCl/ Sodium Chloride (Vancomycin Inj/ NS 500 ml Inj) 515 ml @ 250 mls/hr Q12H IV Last administered on 06/12/16 05:32; Start 06/10/16 at 18:00; Stop 06/12/16 at 09:22; Status DC Miscellaneous Information SPECIFIC LAB TO BE DRAWN:VANCOMYCIN TROUGH DATE TO... ONCE ONCE XX Last administered on 06/12/16 05:33; Start 06/12/16 at 05:45; Stop 06/12/16 at 05:46; Status DC Vancomycin HCl/ Sodium Chloride (Vancomycin Inj/ NS 500 ml Inj) 517.5 ml @ 250 mls/hr Q12H IV Last administered on 06/14/16 05:14; Start 06/12/16 at 18:00; Stop 06/14/16 at 10:10; Status DC Miscellaneous Information SPECIFIC LAB TO BE DRAWN:VANCOMYCIN TROUGH DATE TO... ONCE ONCE XX Last administered on 06/14/16 05:15; Start 06/14/16 at 05:45; Stop 06/14/16 at 05:46; Status DC Potassium Chloride (KCl) 30 meq ONCE ONCE PO Last administered on 06/12/16 13 :21; Start 06/12/16 at 09:30; Stop 06/12/16 at 09:37; Status DC Potassium Phos/ Sodium Phos (K-Phos Neutral) 250 mg Q6HR PO Last administered on 06/26/16 05:28; Start 06/12/16 at 12:00 Lidocaine/ Epinephrine (Xylocaine-Epi 1%-1:100,000 Inj) 20 ml STK-MED ONCE .ROUTE Last administered on 06/13/16 07:27; Start 06/13/16 at 07:27; Stop at 07:28; Status DC Fentanyl Citrate (fentaNYL INJ) 250 mcg STK-MED ONCE .ROUTE Last administered on 06/13/16 07:51; Start 06/13/16 at 07:51; Stop 06/13/16 at 07:52; Status DC Midazolam HCl (Versed Inj) 5 mg STK-MED ONCE .ROUTE Last administered on 07:51; Start 06/13/16 at 07:51; Stop 06/13/16 at 07:52; Status DC Thrombin (Thrombin Top Soln) 5,000 units STK-MED ONCE .ROUTE Last administered on 06/13/16 08:41; Start 06/13/16 at 08:41; Stop 06/13/16 at 08:42; Status DC Hydromorphone HCl (Dilaudid Pf Inj) 2 mg STK-MED ONCE .ROUTE Last administered on 06/13/16 08:48; Start 06/13/16 at 08:48; Stop 06/13/16 at 08:49; Status DC Gelatin 1 foam 1 foam STK-MED ONCE .XX Last administered on 06/13/16 09:33; Start 06/13/16 at 09:33; Stop 06/13/16 at 09:34; Status DC Sodium Chloride (NS 250 ml Inj) 250 ml @ 15 mls/hr ONCE ONCE IV Last administered on 06/13/16 12:48; Start 06/13/16 at 10:00; Stop 06/14/16 at 02:39 ; Status DC Acetaminophen (Tylenol) 650 mg Q4H PRN PO SEE LABEL COMMENTS; Start 06/13/16 at 10:00; Stop 06/13/16 at 14:01; Status DC Diphenhydramine HCl 25 mg 25 mg Q4H PRN PO SEE LABEL COMMENTS Last administered on 06/13/16 11:34; Start 06/13/16 at 10:00; Stop 06/13/16 at 14:01 ; Status DC Sodium Chloride (NS 250 ml Inj) 250 ml @ 15 mls/hr ONCE ONCE IV Last administered on 06/13/16 12:48; Start 06/13/16 at 12:00; Stop 06/14/16 at 04:39 ; Status DC Acetaminophen (Tylenol) 650 mg Q4H PRN PO SEE LABEL COMMENTS; Start 06/13/16 at 12:00; Stop 06/13/16 at 16:01; Status DC Diphenhydramine HCl (Benadryl) 25 mg Q4H PRN PO SEE LABEL COMMENTS; Start 06/13 at 12:00; Stop 06/13/16 at 16:01; Status DC Diphenhydramine HCl (Benadryl) 25 mg ONCE ONCE PO Last administered on 20:42; Start 06/13/16 at 21:00; Stop 06/13/16 at 21:01; Status DC Potassium Chloride 30 meq 30 meq ONCE ONCE PO Last administered on 06/14/16 10:40; Start 06/14/16 at 09:15; Stop 06/14/16 at 09:16; Status DC Vancomycin HCl/ Sodium Chloride (Vancomycin Inj/ NS 500 ml Inj) 520 ml @ 250 mls/hr Q12H IV Last administered on 06/16/16 05:44; Start 06/14/16 at 18:00; Stop 06/16/16 at 11:21; Status DC Miscellaneous Information SPECIFIC LAB TO BE VIKRAM... ONCE ONCE XX Last administered on 06/16/16 05:44; Start 06/16/16 at 05:45; Stop 06/16/16 at 05:46 ; Status DC Diphenoxylate HCl/ Atropine 1 tab 1 tab Q6H PRN PO diarrhea Last administered on 06/15/16 13:17; Start 06/15/16 at 11:00; Stop 06/16/16 at 14:33; Status DC Sodium Chloride (NS 250 ml Inj) 250 ml @ 15 mls/hr ONCE ONCE IV Last administered on 06/16/16 12:27; Start 06/16/16 at 08:30; Stop 06/17/16 at 01:09 ; Status DC Acetaminophen (Tylenol) 650 mg Q4H PRN PO SEE LABEL COMMENTS; Start 06/16/16 at 08:30; Stop 06/16/16 at 12:31; Status DC Diphenhydramine HCl (Benadryl) 25 mg Q4H PRN PO SEE LABEL COMMENTS Last administered on 06/16/16 12:08; Start 06/16/16 at 08:30; Stop 06/16/16 at 12:31 ; Status DC Simethicone 80 mg 80 mg PCHS PRN CHEW GAS RETENTION Last administered on 12:34; Start 06/16/16 at 09:15; Stop 06/16/16 at 14:10; Status DC Vancomycin HCl/ Sodium Chloride (Vancomycin Inj/ NS 500 ml Inj) 517.5 ml @ 250 mls/hr Q12H IV Last administered on 06/19/16 04:55; Start 06/16/16 at 18:00; Stop 06/19/16 at 10:13; Status DC Miscellaneous Information SPECIFIC LAB TO BE VIKRAM... ONCE ONCE XX Last administered on 06/19/16 05:15; Start 06/19/16 at 05:45; Stop 06/19/16 at 05:46; Status DC Acyclovir (Zovirax) 400 mg DAILY PO Last administered on 06/22/16 08:42; Start 06/17/16 at 09:00; Status Hold Diphenhydramine HCl (Benadryl) 25 mg NOW ONCE PO ; Start 06/16/16 at 14:15; Stop 06/16/16 at 14:16; Status DC Diphenhydramine HCl 25 mg 25 mg Q8H PRN PO ITCHING; Start 06/16/16 at 14:15 Sodium Chloride (NS 1000 ml Inj) 1,000 ml @ 84 mls/hr [id number] IV Last administered on 06/17/16 03:09; Start 06/16/16 at 14:30; Stop 06/17/16 at 08:52 ; Status DC Pantoprazole Sodium (Protonix) 20 mg DAILY PO Last administered on 06/22/16 08: 41; Start 06/17/16 at 09:00; Status Hold Diphenoxylate HCl/ Atropine 1 tab 1 tab NOW ONCE PO Last administered on 16:24; Start 06/17/16 at 15:45; Stop 06/17/16 at 15:46; Status DC Vancomycin HCl/ Sodium Chloride (Vancomycin Inj/ NS 250 ml Inj) 262.5 ml @ 250 mls/hr Q12H IV Last administered on 06/22/16 06:13; Start 06/20/16 at 06:00; Stop 06/24/16 at 13:50; Status DC Miscellaneous Information SPECIFIC LAB TO BE DRAWN:VANCOMYCIN TROUGH DATE TO... ONCE ONCE XX Last administered on 06/22/16 06:11; Start 06/22/16 at 05:45; Stop 06/22/16 at 05:46; Status DC Diphenoxylate HCl/ Atropine (Lomotil Tab) 1 tab Q6H PRN PO LOOSE STOOL Last administered on 06/21/16 09:33; Start 06/20/16 at 07:45 Cyanocobalamin 1000 mcg 1,000 mcg ONCE ONCE IM Last administered on 06/22/16 10:05; Start 06/22/16 at 10:00; Stop 06/22/16 at 10:03; Status DC Sodium Chloride (NS 250 ml Inj) 250 ml @ 15 mls/hr ONCE ONCE IV Last administered on 06/22/16 13:20; Start 06/22/16 at 10:15; Stop 06/23/16 at 02:54; Status DC Acetaminophen (Tylenol) 650 mg Q4H PRN PO SEE LABEL COMMENTS Last administered on 06/22/16 13:18; Start 06/22/16 at 10:15; Stop 06/22/16 at 14:16; Status DC Diphenhydramine HCl (Benadryl) 25 mg Q4H PRN PO SEE LABEL COMMENTS Last administered on 06/22/16 13:17; Start 06/22/16 at 10:15; Stop 06/22/16 at 14:16; Status DC Filgrastim (Neupogen Inj) 480 mcg DAILY@14 SQ Last administered on 06/25/16 13: 59; Start 06/24/16 at 14:00 Heparin Sodium (Porcine) (*HEPARIN CENTRAL FLUSH PERIprocedural ONLY) 500 units STK-MED ONCE .ROUTE Last administered on 06/24/16 13:52; Start 06/24/16 at 13:52 ; Stop 06/24/16 at 13:53; Status DC Lidocaine/ Epinephrine (Xylocaine-Epi 1%-1:100,000 Inj) 20 ml STK-MED ONCE .ROUTE Last administered on 06/24/16 13:52; Start 06/24/16 at 13:52; Stop at 13:53; Status DC IV Flush (NS Flush) DAILY IVF Last administered on 06/26/16t 09:22; Start at 09:00 Heparin Sodium (Porcine) (Heparin Central Flush) DAILY IVF ; Start 06/25/16 at 09:00 IV Flush (NS Flush) UNSCH PRN IVF SEE PROTOCOL; Start 06/24/16 at 15:00 Heparin Sodium (Porcine) UNSCH PRN IVF SEE PROTOCOL; Start 06/24/16 at 15:00 Sodium Chloride (NS 250 ml Inj) 250 ml @ 15 mls/hr ONCE ONCE IV ; Start at 08:15; Stop 06/27/16 at 00:54 Acetaminophen (Tylenol) 650 mg Q4H PRN PO SEE LABEL COMMENTS; Start 06/26/16 at 08:15; Stop 06/26/16 at 12:16 Diphenhydramine HCl (Benadryl) 25 mg Q4H PRN PO SEE LABEL COMMENTS; Start at 08:15; Stop 06/26/16 at 12:16 Al Hydrox/Mg Hydrox/Simethicone (Mag-Al Plus Susp Liq) 30 ml Q6H PRN PO DYSPEPSIA OR HEARTBURN; Start 06/26/16 at 10:00 Calcium Carbonate (Tums Chew) 500 mg Q6H PRN CHEW DYSPEPSIA OR HEARTBURN; Start 06/26/16 at 10:00 Sucralfate (Carafate Liq) 1 gm Q4HR PO ; Start 06/26/16 at 12:00 A/P Assessment and Plan A/P (1) AML (acute myeloid leukemia) Plan: As shown on bone marrow biopsy. Medical oncology consulted and following. Status post port placement 05/23. Chemotherapy started 05/27. Hemoglobin/ PLT being monitored; transfuse with PRBC/platelet as needed per oncology. Continue with neutropenic precautions. Patient is status post bone marrow biopsy on 06/13, pathology with negative for AML. hematology/oncology following. (2) Neutropenic fever- now fever has resolved. ID consulted. Vanco and Acycolvir on hold due to persistent neutropenia received Neupogen-will monitor CBC. (3) Pancytopenia Plan: Pancytopenia likely secondary to chemotherapy given for AML treatment. PLT and H/H improving-- Continue to monitor CBC and follow up oncology recommendations. (4) UTI (urinary tract infection) Plan: treated. Urine culture grew Klebsiella pneumonia. (5) GI bleed Plan: GI bleed now resolved. Patient had some episodes of rectal bleeding. s/p EGD and colonoscopy with gastritis and rectal ulcer. continue PPI. (6) Anxiety Plan: Continue Valium as needed. seems stable. (7) Diarrhea-improved repeat C diff negative. lomotil as needed. (8) Dizziness Plan: CT head ordered by oncology 06/10 - No acute disease. Dizziness has now resolved. DVT prophylaxis: SCDs, no chemoprophylaxis given thrombocytopenia. Discharge Planning dc home today. see med list. f/u by pcp and oncology. d/w the patient. d/w oncology. time spent 31 min. Elma Feliz MD Jun 26, 2016 09:49
--- NOTE | 2016-06-26 09:52 | HHI.DS ---
Discharge Summary Admission Date May 16, 2016 at 17:34 Discharge Date: Jun 26, 2016 Admitting Diagnosis ANEMIA/GI BLEED (1) AML (acute myeloid leukemia) ICD Code: C92.00 Diagnosis: Principal (2) Neutropenic fever ICD Code: D70.9 Diagnosis: Principal (3) Pancytopenia ICD Code: D61.818 Diagnosis: Principal (4) Symptomatic anemia ICD Code: D64.9 Diagnosis: Principal (5) UTI (urinary tract infection) ICD Code: N39.0 Diagnosis: Principal (6) GI bleed ICD Code: K92.2 Diagnosis: Principal (7) Anxiety ICD Code: F41.9 Diagnosis: Secondary (8) Diarrhea ICD Code: R19.7 Diagnosis: Secondary (9) Dizziness ICD Code: R42 Diagnosis: Secondary (10) Hypophosphatemia ICD Code: E83.39 Diagnosis: Secondary (11) Moderate protein-calorie malnutrition ICD Code: E44.0 Diagnosis: Secondary (12) Hypokalemia ICD Code: E87.6 Diagnosis: Secondary Procedures EGD/ colonoscopy Bone marrow biopsy Brief History - From Admission 61-year-old female with a medical history significant for hypothyroidism, GERD, chronic back pain, peripheral edema, hemorrhoids present to the emergency room with complaint of shortness of breath and occasional chest tightness. The patient reports that she had an in office hemorrhoidectomy about 3 weeks ago. Since the procedure she reports that she has been feeling overly tired and never recovered. She has been progressively getting short of breath, with associated heart palpitation and dizziness. She denies any dark or bloody stools. She does report that she continues to have issues with constipation and has been using Dulcolax and enema every few days. Workup in the emergency room revealed marked anemia with an H&H of 5.8/16.4. She is also thrombocytopenic with a platelet of 71 and her absolute neutrophil is 0.2. CBC/BMP: 06/26/16 0533 06/24/16 0300 Significant Findings Laboratory Tests Test 06/24/16 06/25/16 06/26/16 03:00 03:50 05:33 White Blood Count 1.1 TH/MM3 1.1 TH/MM3 1.9 TH/MM3 (4.0-11.0) (4.0-11.0) (4.0-11.0) Red Blood Count 3.01 MIL/MM3 2.60 MIL/MM3 2.67 MIL/MM3 (4.00-5.30) (4.00-5.30) (4.00-5.30) Hemoglobin 9.0 GM/DL 8.2 GM/DL 8.1 GM/DL (11.6-15.3) (11.6-15.3) (11.6-15.3) Hematocrit 26.6 % 22.9 % 23.6 % (35.0-46.0) (35.0-46.0) (35.0-46.0) Neutrophils % (Manual) 9 % (16-70) 6 % (16-70) 7 % (16-70) Lymphocytes % 87 % (9-44) 68 % (9-44) 47 % (9-44) Neutrophils # (Manual) 0.1 TH/MM3 0.3 TH/MM3 0.9 TH/MM3 (1.8-7.7) (1.8-7.7) (1.8-7.7) Nucleated Red Blood Cells 3 /100 WBC 1 /100 WBC 1 /100 WBC (0-0) (0-0) (0-0) Estimat Glomerular Filtration 71 ML/MIN (>89) Rate Band Neutrophils % 25 % (0-6) 37 % (0-6) Toxic Granulation 2+ (NORMAL) 1+ (NORMAL) Toxic Vacuolation PRESENT (NONE SEEN) Dohle Bodies PRESENT (NONE PRESENT (NONE SEEN) SEEN) Platelet Morphology Comment ENLARGED (NORMAL) Lymphocytes (%) (Auto) 45.6 % (9.0-44.0) Neutrophils # (Auto) 1.0 TH/MM3 (1.8-7.7) Lymphocytes # (Auto) 0.9 TH/MM3 (1.0-4.8) Myelocytes 2 % (0-0) Promyelocytes 1 % (0-0) Blastocytes 1 % (0-0) Imaging Last Impressions Catheter Placement X-Ray 06/24/16 0000 Signed Impressions: Service Date/Time: Friday, June 24, 2016 13:47 - CONCLUSION: 1. Uncomplicated Donaldson catheter exchange as above. 2. Patient should have the dermatotomy cerclage removed in approximately 10-14 days. This can be performed in the oncology clinic or in radiology outpatient unit. Reddy Damian MD Bone Biopsy CT 06/13/16 0000 Signed Impressions: Service Date/Time: Monday, June 13, 2016 08:35 - CONCLUSION: 1. Uncomplicated CT guided bone marrow aspirate. 2. Uncomplicated CT guided bone marrow biopsy. Juan Carlos Cherry MD FACR Head CT 06/10/16 0000 Signed Impressions: Service Date/Time: Friday, June 10, 2016 14:56 - CONCLUSION: Stable noncontrast head CT. No acute intracranial abnormality is identified. Bravo Jackman MD Abdomen/Pelvis CT 06/05/16 0000 Signed Impressions: Service Date/Time: May 22:13 - CONCLUSION: Minimal fluid in the pelvis, otherwise unremarkable. Cynthia Guardado MD Chest X-Ray 06/04/16 0000 Signed Impressions: Service Date/Time: Saturday, June 04, 2016 21:23 - CONCLUSION: No acute disease. Kilo Cotto MD Lumbar Puncture Fluoroscopy 05/23/16 0000 Signed Impressions: Service Date/Time: Monday, May 23, 2016 14:16 - CONCLUSION: Uncomplicated fluoroscopically guided lumbar puncture. Bubba Cherry MD Chest CT 05/17/16 0000 Signed Impressions: Service Date/Time: Tuesday, May 17, 2016 15:14 - CONCLUSION: 1. 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 There are trace to very small bilateral pleural effusions and mild cardiomegaly noted. 2. No lobar consolidation. 3. Upper limits of normal to mildly enlarged mediastinal and bilateral hilar lymph nodes, nonspecific but presumably reactive. Bravo Mendez MD PE at Discharge GENERAL: This is a well-nourished, well-developed patient, in no apparent distress. CARDIOVASCULAR: Regular rate and regular rhythm without murmurs, gallops, or rubs. RESPIRATORY: Clear to auscultation. Breath sounds equal bilaterally. No wheezes , rales, or rhonchi. GASTROINTESTINAL: Abdomen soft, non-tender, nondistended. Normal, active bowel sounds MUSCULOSKELETAL: Extremities without clubbing, cyanosis, or edema. NEURO: Alert & Oriented x4 to person, place, time, situation. Moves all ext x4 Hospital Course (1) AML (acute myeloid leukemia) Plan: As shown on bone marrow biopsy. Medical oncology consulted and following. Status post port placement 05/23. Chemotherapy started 05/27. Hemoglobin/ PLT being monitored; transfuse with PRBC/platelet as needed per oncology. Continue with neutropenic precautions. Patient is status post bone marrow biopsy on 06/13, pathology with negative for AML. hematology/oncology following. (2) Neutropenic fever- now fever has resolved. ID consulted. Vanco and Acycolvir on hold due to persistent neutropenia received Neupogen-will monitor CBC. (3) Pancytopenia Plan: Pancytopenia likely secondary to chemotherapy given for AML treatment. PLT and H/H improving-- Continue to monitor CBC and follow up oncology recommendations. (4) UTI (urinary tract infection) Plan: treated. Urine culture grew Klebsiella pneumonia. (5) GI bleed Plan: GI bleed now resolved. Patient had some episodes of rectal bleeding. s/p EGD and colonoscopy with gastritis and rectal ulcer. continue PPI. (6) Anxiety Plan: Continue Valium as needed. seems stable. (7) Diarrhea-improved repeat C diff negative. lomotil as needed. (8) Dizziness Plan: CT head ordered by oncology 06/10 - No acute disease. Dizziness has now resolved. Pt Condition on Discharge: Fair Discharge Disposition: Discharge Home Discharge Time: > 30 minutes Discharge Instructions DIET: Follow Instructions for: As Tolerated, No Restrictions Activities you can perform: Regular-No Restrictions Follow up Referrals: Oncology with Ryan Tripp MD PCP Follow-up New Medications: Acyclovir (Acyclovir) 200 Mg Cap 400 MG PO BID Infection Days 7 CAP Allopurinol (Zyloprim) 300 Mg Tab 300 MG PO DAILY aml #30 TAB Continued Medications: Carisoprodol (Soma) 350 Mg Tab 350 MG PO TID PRN PAIN Ref 0 TAB Furosemide (Lasix) 20 Mg Tab 20 MG PO DAILY #30 Ref 0 TAB Gabapentin (Gabapentin) 300 Mg Cap 300 MG PO TID #90 Ref 0 CAP Levothyroxine (Synthroid) 25 Mcg Tab 25 MCG PO DAILY Thyroid #30 Ref 0 TAB Pantoprazole (Protonix) 20 Mg Tab 20 MG PO DAILY Reflux #30 Ref 0 TAB Potassium Chloride ER (Potassium Chloride ER) 10 Meq Cap 10 MEQ PO DAILY Electrolyte Replacement #30 Ref 0 CAP Ranitidine (Zantac) 150 Mg Tab 150 MG PO BID Reduce Stomach Acid #60 Ref 0 TAB Elma Feliz MD Jun 26, 2016 09:52
[2016-06-26] MEDS ORDERED: ACYC200C66 PO (09:56)
[2016-06-26] MEDS ORDERED: CALCIUM CARBONATE 500 MG CHEWABLE TAB CHEW PRN (10:00)
[2016-06-26] MEDS ORDERED: ALUMINUM/MAGNESIUM/SIMETH 30 ML CUP PO PRN (10:00)
[2016-06-26] MEDS: SODIUM CHLORIDE 0.9% FLUSH 5 ML FLUSH IV SCH (10:19)
[2016-06-26] MEDS: FAMOTIDINE 20 MG TAB PO SCH (10:56)
[2016-06-26 11:09] VITALS: BP 96/52; PULSE 80; RESP 16; TEMP 97.7; O2SAT 94
--- NOTE | 2016-06-26 11:25 | PD.ONC.PN ---
Subjective Subjective Remarks Afebrile overnight. Patient very excited about going home today. + loose stool overnight. No abdominal pain. Objective Data Date Time Temp Pulse Resp B/P Pulse Ox O2 Delivery O2 Flow Rate FiO2 06/26/16 11:09 97.7 80 16 96/52 94 06/26/16 08:00 98.3 79 18 111/55 96 06/26/16 00:00 98.0 79 18 96/53 93 06/25/16 20:00 98.0 88 18 130/60 92 06/25/16 16:00 98.0 80 18 108/53 94 06/26/16 06/26/16 06/26/16 07:00 15:00 23:00 Intake Total 480 ml Balance 480 ml Result Diagram: 06/26/16 0533 06/24/16 0300 Laboratory Results Laboratory Tests Test 06/25/16 06/26/16 06/26/16 16:00 05:33 09:35 Stool C. difficile Toxin (PCR) NEGATIVE Stl C. difficile Toxin PRESUMPTIVE Epiderm 027 NEGATIVE White Blood Count 1.9 TH/MM3 Red Blood Count 2.67 MIL/MM3 Hemoglobin 8.1 GM/DL Hematocrit 23.6 % Mean Corpuscular Volume 88.2 FL Mean Corpuscular Hemoglobin 30.3 PG Mean Corpuscular Hemoglobin 34.3 % Concent Red Cell Distribution Width 12.8 % Platelet Count 424 TH/MM3 Mean Platelet Volume 8.1 FL Neutrophils (%) (Auto) 51.4 % Lymphocytes (%) (Auto) 45.6 % Monocytes (%) (Auto) 2.5 % Eosinophils (%) (Auto) 0.2 % Basophils (%) (Auto) 0.3 % Neutrophils # (Auto) 1.0 TH/MM3 Lymphocytes # (Auto) 0.9 TH/MM3 Monocytes # (Auto) 0.0 TH/MM3 Eosinophils # (Auto) 0.0 TH/MM3 Basophils # (Auto) 0.0 TH/MM3 CBC Comment AUTO DIFF Differential Total Cells 100 Counted Neutrophils % (Manual) 7 % Band Neutrophils % 37 % Lymphocytes % 47 % Monocytes % 2 % Eosinophils % 1 % Basophils % 1 % Neutrophils # (Manual) 0.9 TH/MM3 Metamyelocytes 1 % Myelocytes 2 % Promyelocytes 1 % Nucleated Red Blood Cells 1 /100 WBC Differential Comment FINAL DIFF MANUAL Blastocytes 1 % Toxic Granulation 1+ Dohle Bodies PRESENT Platelet Estimate NORMAL Platelet Morphology Comment NORMAL Red Cell Morphology Comment NORMAL Blood Type O POSITIVE Antibody Screen NEGATIVE Crossmatch Irradiated/Leukocyte-Reduced RBC Blood Bank Comment Administered Medications Medications (Trade) Dose Ordered Sig/Prashant Route PRN Reason Start Time Stop Time Status Last Admin Dose Admin Carisoprodol (Soma) 350 mg TID PRN PO PAIN 05/16/16 17:30 06/22/16 01:21 Furosemide (Lasix) 20 mg DAILY PO 05/17/16 09:00 06/26/16 09:20 Gabapentin (Neurontin) 300 mg TID PO 05/16/16 18:00 06/26/16 09:20 Levothyroxine Sodium (Synthroid) 25 mcg DAILY@06 PO 05/17/16 06:00 06/26/16 05:28 Potassium Chloride (KCl) 10 meq DAILY PO 05/17/16 09:00 06/26/16 09:20 Famotidine (Pepcid) 20 mg BID PO 05/16/16 21:00 06/26/16 10:56 IV Flush (NS Flush) 2 ml UNSCH PRN IV FLUSH AFTER USING IV ACCESS 05/16/16 17:45 06/25/16 02:37 IV Flush (NS Flush) 2 ml BID IV 05/16/16 21:00 06/26/16 10:19 Ondansetron HCl (Zofran Inj) 4 mg Q6H PRN IV NAUSEA 05/16/16 17:45 06/25/16 20:52 Acetaminophen (Tylenol) 650 mg Q6HR PRN PO headache 05/17/16 06:30 06/26/16 05:29 Oxycodone/ Acetaminophen (Percocet 5-325 Mg) 1 tab Q4H PRN PO pain 1-5 05/20/16 10:00 06/14/16 11:36 Oxycodone HCl (Roxicodone) 10 mg Q4H PRN PO pain 6-10 05/21/16 16:00 06/26/16 07:13 IV Flush (NS Flush) DAILY IVF 05/24/16 09:00 06/26/16 09:21 Heparin Sodium (Porcine) (Heparin Central Flush) DAILY IVF 05/24/16 09:00 06/26/16 09:20 IV Flush (NS Flush) UNSCH PRN IVF SEE PROTOCOL 05/23/16 15:30 06/25/16 03:53 Heparin Sodium (Porcine) (Heparin Central Flush) UNSCH PRN IVF SEE PROTOCOL 05/23/16 15:30 06/25/16 03:50 Docusate Sodium (Colace) 100 mg BID PO 05/24/16 11:00 Hold 06/05/16 07:58 Morphine Sulfate (Morphine Inj) 2 mg Q2HR PRN IV PUSH SEVERE BREAKTHROUGH PAIN 05/27/16 08:45 06/25/16 16:11 Diazepam (Valium) 10 mg Q12HR PO 05/28/16 09:00 06/26/16 09:20 Temazepam 15 mg 15 mg HS PRN PO SLEEP 05/28/16 08:00 06/01/16 22:23 Cefepime HCl 2000 mg/Sodium Chloride 100 ml @ 200 mls/hr Q8H IV 06/05/16 18:00 06/26/16 09:21 Micafungin Sodium/ Sodium Chloride (Mycamine Inj/NS Inj) 100 ml @ 100 mls/hr Q24H IV 06/10/16 16:00 06/25/16 16:11 Potassium Phos/ Sodium Phos (K-Phos Neutral) 250 mg Q6HR PO 06/12/16 12:00 06/26/16 10:56 Acyclovir (Zovirax) 400 mg DAILY PO 06/17/16 09:00 Hold 06/22/16 08:42 Pantoprazole Sodium (Protonix) 20 mg DAILY PO 06/17/16 09:00 Hold 06/22/16 08:41 Diphenoxylate HCl/ Atropine (Lomotil Tab) 1 tab Q6H PRN PO LOOSE STOOL 06/20/16 07:45 06/21/16 09:33 Filgrastim (Neupogen Inj) 480 mcg DAILY@14 SQ 06/24/16 14:00 06/25/16 13:59 IV Flush DAILY IVF 06/25/16 09:00 06/26/16 09:22 Sodium Chloride (NS 250 ml Inj) 250 ml @ 15 mls/hr ONCE ONCE IV 06/26/16 08:15 06/27/16 00:54 06/26/16 11:12 Acetaminophen (Tylenol) 650 mg Q4H PRN PO SEE LABEL COMMENTS 06/26/16 08:15 06/26/16 12:16 06/26/16 10:56 Diphenhydramine HCl (Benadryl) 25 mg Q4H PRN PO SEE LABEL COMMENTS 06/26/16 08:15 06/26/16 12:16 06/26/16 10:56 Calcium Carbonate (Tums Chew) 500 mg Q6H PRN CHEW DYSPEPSIA OR HEARTBURN 06/26/16 10:00 06/26/16 10:22 Sucralfate (Carafate Liq) 1 gm Q4HR PO 06/26/16 12:00 06/26/16 10:55 Objective Remarks GENERAL: Pleasant, chronically ill appearing female, lying in bed in nad. SKIN: Warm and dry. +alopecia. Donaldson catheter in place. HEAD: Normocephalic. EYES: No injection or drainage. NECK: Supple, trachea midline. CARDIOVASCULAR: +S1/S2 RESPIRATORY: Breath sounds equal bilaterally. No accessory muscle use. GASTROINTESTINAL: Abdomen soft, non-tender, nondistended. EXTREMITIES: No cyanosis. NEUROLOGICAL: awake and alert, normal speech. moving all extremities. Assessment/Plan Problem List: (1) AML (acute myeloid leukemia) Status: Acute Plan: 06/26/16: D31. Neutrophil count improved to 0.9. clear for discharge. will give 1 unit pRBC prior to discharge. 06/25/16: D30. moderate improvement, neutrophil count 0.3. hopefully will improve enough tomorrow that we can d/c. will give another dose of Neupogen. 06/24/16: will give Neupogen 480mcg x 1 today. monitor WBC for improvement. 06/23/16: await recovery of bone marrow. if no improvement in WBC tomorrow, will give Neupogen 06/22/16: will give B12 injection to help enhance hematopoiesis. monitor WBC. give 1 unit pRBC for symptomatic anemia. Vanco placed on hold. 06/21/16: awaiting WBC recovery. platelets continuing to improve. 06/20/16: D25. slight bump in WBC. platelets improving. 06/19/16: D24. Platelet counts starting to improve. Continue to wait for white cells to recover. Pt doing very well clinically. 06/18/16: D23. Doing well. We will await counts to improve/ bone marrow recovery. Absolute neutrophil count still at 0 today. 06/17/16: D22. bone marrow biopsy shows no residual leukemia. awaiting bone marrow recovery. nausea resolved. diarrhea persistent. 06/16/16: D21: waiting on bone marrow recovery. flow shows only 0.08% blasts. awaiting pathology. no diarrhea since last night. fs faxed to [facility] for follow up after discharge. 06/15/16: diarrhea worsening. suspect abx side effect. will stop allopurinol as this also may be contributing. 06/14/16: D19. no transfusion needed today. mild headache. monitor. Having some diarrhea, C. difficile negative 2. 06/13/16: D18. BMB today. no nausea. stable. 06/12/16:D17: Intermittent headache. Blood counts stable. Bone marrow biopsy tomorrow. 06/11/16: D16. Doing well today. Counts stable. Headache improved; CT brain negative. Will plan for bone marrow biopsy with IR on Thursday. 06/10/16: D15. 1 unit plts. dizzy w/ headache. CT brain pending 06/09/16:D14. 2 units pRBC today. 06/08/16: No issues overnight. Plt's are low at 11,000. Likely will drop again tomorrow, so we will transfuse x1 dose today. No bleeding. 06/07/16: Afebrile. Neutropenic precautions continue. 06/06/16: afebrile overnight. continue abx per ID. pain pump refilled. 06/05/16: spiked fever overnight. started on Cefepime. Levaquin stopped. ID consulted. CT ab/pelvis negative 06/04/16: D9. 1 unit plt 06/03/16: D8 chemo finishes late tonight. started on acyclovir/diflucan/levaquin for prophylaxis. 06/01/16: D6. nauseated. otherwise no events. continue chemo. 05/31/16:D5. no events. 05/30/16: D4 chemotherapy. no transfusion today. 05/29/16: D3 chemotherapy. Tolerated well Blood counts trending lower. Transfuse PRBC 2U. CSF cytology negative. 05/28/16: Tolerated chemo well, no significant side effect. Blood counts started to trend down. 05/27/16: D1. Abril-C + Idarubicin. AML w/ intermediate risk cytogenetics. (2) Pancytopenia Status: Acute Plan: transfuse for platelets less than 10k and a Hgb of less than 7. (3) presence of pain pump Status: Chronic Plan: --patient with intrathecal pain pump --managed by Dr. Omer outpatient --pain pump refilled on 06/06/16 Assessment 61y/o female with AML, s/p induction with ABRIL-C + KELSEA. Plan 1. clear for discharge 2. give 1 unit pRBC prior to discharge 3. patient having heartburn--okay to resume protonix/pepcid and will give Caralfate 4. follow up arranged in clinic on 07/01 and M-F CBC as well for the next two weeks. Attending Statement The exam, history, and the medical decision-making described in the above note were completed with the assistance of the mid-level provider. I reviewed and agree with the findings presented. I attest that I had a [id number] encounter with the patient on the same day, and personally performed and documented my assessment and findings in the medical record. WBC and neutrophils have trended up. She can be d/c and f/u at oncology clinic to monitor CBC. Problem Qualifiers (1) AML (acute myeloid leukemia): Qualified Code: C92.00 - Acute myeloid leukemia not having achieved remission Radha Lawrence Jun 26, 2016 11:25 Ryan Tripp MD Jun 26, 2016 11:45
[2016-06-26 11:32] VITALS: BP 115/58; PULSE 70; RESP 16; TEMP 97.9; O2SAT 97
[2016-06-26] MEDS ORDERED: SUCRALFATE 1 GM/10 ML CUP PO SCH (12:00)
[2016-06-26] MEDS: FILGRASTIM 480 MCG/1.6 ML VIAL SQ SCH (13:56)
[2016-06-26 14:00] VITALS: BP 116/56; PULSE 70; RESP 18; TEMP 96.5; O2SAT 99
== END 2016-06-26 15:58 | disposition home or self-care (01) | DRG 841 ==
LOC: NEPC 13:39 → NEDA 17:23 → OBSVTOIN 17:34 → N04B 18:50 → HOCB 05-18 22:47 → HOCA 05-29 11:31
PROVIDERS: ADMIT Internal Medicine; ATTEND Internal Medicine
PROC: 0DB68ZX Excision of Stomach, Via Natural or Artificial Opening Endoscopic, Diagnostic (ICD-10-PCS; 2016-05-20)
PROC: 0DB48ZX Excision of Esophagogastric Junction, Via Natural or Artificial Opening Endoscopic, Diagnostic (ICD-10-PCS; 2016-05-20)
PROC: 0DB98ZX Excision of Duodenum, Via Natural or Artificial Opening Endoscopic, Diagnostic (ICD-10-PCS; 2016-05-20)
PROC: 0DBP8ZX Excision of Rectum, Via Natural or Artificial Opening Endoscopic, Diagnostic (ICD-10-PCS; 2016-05-20)
PROC: 07DR3ZX Extraction of Iliac Bone Marrow, Percutaneous Approach, Diagnostic (ICD-10-PCS; 2016-05-20 12:49)
PROC: 009U3ZX Drainage of Spinal Canal, Percutaneous Approach, Diagnostic (ICD-10-PCS; 2016-05-23)
PROC: 02HV33Z Insertion of Infusion Device into Superior Vena Cava, Percutaneous Approach (ICD-10-PCS; 2016-05-23)
PROC: 3E03305 Introduction of Other Antineoplastic into Peripheral Vein, Percutaneous Approach (ICD-10-PCS; principal; 2016-05-26)
PROC: 07DR3ZX Extraction of Iliac Bone Marrow, Percutaneous Approach, Diagnostic (ICD-10-PCS; 2016-06-13)
PROC: 02HV33Z Insertion of Infusion Device into Superior Vena Cava, Percutaneous Approach (ICD-10-PCS; 2016-06-24)
DX: C92.Z0 Other myeloid leukemia not having achieved remission (principal); D61.818 Other pancytopenia; K76.0 Fatty (change of) liver, not elsewhere classified; E44.0 Moderate protein-calorie malnutrition; D70.1 Agranulocytosis secondary to cancer chemotherapy; K62.6 Ulcer of anus and rectum; D62 Acute posthemorrhagic anemia; K92.2 Gastrointestinal hemorrhage, unspecified; N39.0 Urinary tract infection, site not specified; T82.514A Breakdown (mechanical) of infusion catheter, initial encounter; E83.39 Other disorders of phosphorus metabolism; E03.9 Hypothyroidism, unspecified; K21.0 Gastro-esophageal reflux disease with esophagitis; G89.29 Other chronic pain; K59.09 Other constipation; R51 Headache; F41.9 Anxiety disorder, unspecified; B96.1 Klebsiella pneumoniae [K. pneumoniae] as the cause of diseases classified elsewhere; E87.6 Hypokalemia; R19.7 Diarrhea, unspecified; T45.1X5A Adverse effect of antineoplastic and immunosuppressive drugs, initial encounter; R50.81 Fever presenting with conditions classified elsewhere; I10 Essential (primary) hypertension; K29.70 Gastritis, unspecified, without bleeding; M54.9 Dorsalgia, unspecified; Z23 Encounter for immunization
CPT/HCPCS: 36430; 36558; 38221; 62270; 62369; 70450; 71010; 71260; 74177; 76937; 77001; 77003; 77012; 80048; 80053; 80076; 80202; 81001; 81218; 81245; 81310; 82550; 82552; 82565; 82607; 82728; 82746; 83540; 83550; 83615; 83735; 84100; 84155; 84443; 84484; 84550; 85007; 85014; 85018; 85027; 85044; 85060; 85097; 85384; 85610; 85730; 86078; 86850; 86880; 86900; 86901; 86920; 87015; 87040; 87077; 87086; 87186; 87493; 88112; 88184; 88185; 88237; 88264; 88280; 88305; 88311; 88312; 88313; 88377; 89051; 90686; 93005; 93306; 96361; 96374; 99151; 99152; 99153; C1751; C1769; C1830; C9113; G0364; J0692; J0696; J1100; J1170; J1442; J1626; J1642; J2248; J2250; J2270; J2405; J3010; J3370; J3420; J3475; J7030; J7040; J7050; J9100; J9211; P9016; P9037; P9040; Q2038; Q9963; Q9967

== ENCOUNTER 2016-07-11 08:36 | Inpatient (IN) | payer OTHER, MEDICARE ==
[~2016-07-11] VITALS: Ht 175.3 cm; Wt 74.2 kg
[~2016-07-11 08:36] MED LIST changes: +ACYC200C66 PO; +ALLO300 PO; -CIME300T PO; -DIAZ10 PO; -DILA10IN IJ; +FURO1TAB62 PO; -FURO20 PO; -GABA300 PO; +GABA300C5 PO; -HYDR-3533 PO; -IBUP-232 PO; -KCL10C PO; +PANT20 PO; +POTA10CA PO; +SYNT25TA PO; +ZANT150T2 PO
[2016-07-14] MEDS ORDERED: GRANISETRON INJ 1 MG, DEXAMETHASONE INJ 20 MG in SODIUM CHLORIDE 0.9% INJ 50 ML IV SCH ×2 (02:00→13:30)
[2016-07-14] MEDS ORDERED: ALTEPLASE RECOMBINANT 2 MG VIAL IVF PRN (08:00)
[2016-07-14] MEDS ORDERED: ACETAMINOPHEN 325 MG TAB PO PRN (08:00)
--- NOTE | 2016-07-14 08:23 | MH ---
cc: VIANCA BOND M.D. DATE OF ADMISSION: 07/14/2016 ADMITTING DIAGNOSIS Acute myelogenous leukemia, for consolidation chemotherapy. HISTORY OF PRESENT ILLNESS The patient is a 61-year-old female first diagnosed with acute myelogenous leukemia at the end of April when she presented with pancytopenia. Bone marrow biopsy showed acute myelogenous leukemia with 41% myeloblasts. 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 Lumbar puncture and CSF analysis did not show any leukemic involvement. She received induction idarubicin and ABRIL-C on May 27, 2016. Repeat bone marrow biopsy on June 13 showed 0.8% myeloblasts consistent with good response and she appeared to be in remission. Her white blood cell count trended back up to normal and she still has mild anemia. She is doing quite well. She states that over the last few days she feels very well. She denies any fever, chills, night sweats or weight loss. She still has intermittent headache but it is mild and she denies any chest pain, palpitations. She has no shortness of breath or cough. She has occasional postnasal drip and sinus congestion. She denies any nausea or vomiting, diarrhea, abdominal pain. Denies dysuria or hematuria. Denies any rash or pruritus. Denies any focal numbness or weakness. PAST MEDICAL HISTORY 1. Acute myelogenous leukemia. 2. Chronic back pain. She had pain pump and is followed by Dr. Omer. 3. Anxiety. 4. Hypothyroidism. 5. Peripheral neuropathy. 6. Gastroesophageal reflux disease. 7. Hemorrhoids. PAST SURGICAL HISTORY 1. Hemorrhoidectomy. 2. Back and neck surgery. 3. Rotator cuff surgery. 4. Pain pump placement. 5. Donaldson catheter placement. 6. Bone marrow biopsy. FAMILY HISTORY Father of lung cancer and mother had asthma. She has six siblings, all relatively healthy. She has three children also healthy. SOCIAL HISTORY Denies tobacco or alcohol use. ALLERGIES No known drug allergies. OUTPATIENT MEDICATIONS 1. Levothyroxine. 2. Acyclovir. 3. Allopurinol. 4. Soma. 5. Lasix. 6. Gabapentin. 7. Protonix. 8. Potassium. 9. Zantac. REVIEW OF SYSTEMS CONSTITUTIONAL: Denies any fever, chills, night sweats, weight loss. EYES: Denies any blurry vision, double vision. ENT: Denies mouth sores or voice changes. CARDIOVASCULAR: Denies chest pressure or palpitation. RESPIRATORY: Denies shortness of breath or cough. GI: Denies any nausea, vomiting, diarrhea, abdominal pain. : Denies dysuria or hematuria. MUSCULOSKELETAL: Chronic back pain. HEMATOLOGY: As above. ENDOCRINE: Negative. DERMATOLOGY: Negative. PSYCHIATRIC: Negative. NEUROLOGIC: Intermittent headache. PHYSICAL EXAMINATION VITAL SIGNS: Temperature afebrile. Vitals stable. GENERAL: She is alert and oriented x 3, in no acute distress. HEENT: Atraumatic, normocephalic. Pupils equal, round and reactive to light. Extraocular muscles intact. No scleral icterus. Oropharynx - dry mucosa. No lesion, no thrush, no mucositis. NECK: No thyromegaly. No palpable mass. LYMPHATICS: No palpable cervical, clavicular, axillary or inguinal lymph nodes. CARDIOVASCULAR: Regular S1 and S2. No murmur. LUNGS: Clear to auscultation without any wheezing or rhonchi. ABDOMEN: Soft, nontender. Could not palpate liver or spleen. Pain pump noted in the right abdominal wall. EXTREMITY EXAM: No cyanosis, no clubbing, no edema. BACK: No paravertebral tenderness. SKIN: No rash or petechia. The right chest Donaldson site shows no erythema. NEUROLOGIC: Exam nonfocal. LABORATORY DATA Reviewed. ASSESSMENT 1. Acute myelogenous leukemia, she presented in April 2016 with pancytopenia. Bone marrow biopsy showed 41% myeloblasts. Chromosome study showed intermediate risk features with deletion of 7q and negative FLT3. CSF analysis did not show any leukemia involvement. She completed induction idarubicin and ABRIL-C in May of 2016. Repeat bone marrow biopsy on June 13 showed 0.8% myeloblasts consistent with good response and she went into remission. Her platelet count and white blood cell count trended up to normal. She still has mild anemia. She is admitted today for consolidation high-dose ABRIL-C. She has no new symptoms. 2. Chronic back pain. She has been followed by Dr. Omer. She just had the pain pump refilled last week. Her pain is controlled at this time. 3. Hypothyroidism, stable. 4. Peripheral neuropathy on gabapentin. 5. Anxiety, stable. PLAN 1. Check lab work. 2. Start consolidation high-dose ABRIL-C. 3. Monitor labs. MD DANIELLE Bailey/HARSHIL /7:52 AM /8:02 AM AMPARO
[2016-07-14 08:30] VITALS: BP 125/75; PULSE 67; RESP 16; TEMP 96.6; O2SAT 96
[2016-07-14] MEDS ORDERED: HYDROmorphone HCL PF 1 MG/ML VIAL IV PRN (09:15)
[2016-07-14] MEDS: CARISOPRODOL 350 MG TAB PO PRN (09:29)
[2016-07-14] MEDS: FAMOTIDINE 20 MG TAB PO SCH ×2 (09:29→20:59)
[2016-07-14] MEDS: SODIUM CHLORIDE 0.9% FLUSH 5 ML FLUSH IVF SCH (09:30)
[2016-07-14 09:33] LABS: AUTOMATED NEUTROPHIL # 1.7 TH/MM3 (1.8-7.7); BASOPHIL # 0.2 TH/MM3 (0-0.2); BASOPHIL % 5.3 % (0.0-2.0); EOSINOPHIL # 0.3 TH/MM3 (0-0.4); EOSINOPHIL % 8.6 % (0.0-4.0); HEMATOCRIT 31.3 % (35.0-46.0); HEMO FLAGS DIFF FINAL; LYMPH % 32.6 % (9.0-44.0); LYMPHOCYTE # 1.3 TH/MM3 (1.0-4.8); MEAN CELL VOLUME 92.2 FL (80.0-100.0); MEAN CORPUSCULAR HEMOGLOBIN 30.3 PG (27.0-34.0); MEAN CORPUSCULAR HGB CONC 32.9 % (32.0-36.0); MONO % 12.2 % (0.0-8.0); NEUT % 41.3 % (16.0-70.0); PLATELET COUNT 340 TH/MM3 (150-450); RED BLOOD COUNT 3.39 MIL/MM3 (4.00-5.30); RED CELL DISTRIBUTION WIDTH 17.4 % (11.6-17.2); WHITE BLOOD COUNT 4.1 TH/MM3 (4.0-11.0)
[2016-07-14 10:05] LABS: ALKALINE PHOSPHATASE 77 U/L (45-117); ALT (GPT) 21 U/L (10-53); ANION GAP 8 MEQ/L (5-15); AST (GOT) 19 U/L (15-37); BICARBONATE 27.2 MEQ/L (21.0-32.0); BLOOD UREA NITROGEN 17 MG/DL (7-18); CHLORIDE 105 MEQ/L (98-107); GLOMERULAR FILTRATION RATE 79 ML/MIN (>89); POTASSIUM 4.2 MEQ/L (3.5-5.1); SODIUM (NA) 140 MEQ/L (136-145); TOTAL BILIRUBIN ADULT 0.2 MG/DL (0.2-1.0)
[2016-07-14 12:00] VITALS: BP 104/55; PULSE 79; RESP 18; TEMP 98.2; O2SAT 97
[2016-07-14] MEDS: GABAPENTIN 300 MG CAP PO SCH ×2 (13:45→18:57)
[2016-07-14] MEDS: DEXAMETHASONE SOD PHOS 0.1% OPHT SOLN 5 ML BTL EACH EYE SCH ×3 (13:45→20:59)
[2016-07-14] MEDS: CYTARABINE IV SCH (14:30)
[2016-07-14] MEDS: SODIUM CHLORID 0.9% IV SCH (14:30)
[2016-07-14 16:00] VITALS: BP 143/70; PULSE 62; RESP 18; TEMP 97.8; O2SAT 95
[2016-07-14 20:00] VITALS: BP 135/59; PULSE 73; RESP 18; TEMP 96.5; O2SAT 95
[2016-07-14] MEDS ORDERED: DIAZEPAM 10 MG TAB PO ONE (20:00)
[2016-07-14] MEDS ORDERED: LORazepam 2 MG TAB PO ONE (20:00)
[2016-07-14] MEDS: DOCUSATE SODIUM 100 MG CAP PO SCH (20:59)
[2016-07-15] VITALS: BP 131/60; PULSE 95; RESP 18; TEMP 97; O2SAT 92
[2016-07-15] MEDS ORDERED: GRANISETRON INJ 1 MG, DEXAMETHASONE INJ 20 MG in SODIUM CHLORIDE 0.9% INJ 50 ML IV ONE (02:00)
[2016-07-15] MEDS: CYTARABINE IV SCH (02:41)
[2016-07-15] MEDS: SODIUM CHLORID 0.9% IV SCH (02:41)
[2016-07-15] MEDS: LEVOTHYROXINE SODIUM 25 MCG TAB PO SCH (05:36)
[2016-07-15] MEDS: CARISOPRODOL 350 MG TAB PO PRN (05:36)
[2016-07-15 05:44] VITALS: BP 153/67; PULSE 67; RESP 17; TEMP 96.3; O2SAT 95
[2016-07-15] MEDS: SODIUM CHLORIDE 0.9% FLUSH 5 ML FLUSH IVF PRN (06:52)
[2016-07-15 08:00] VITALS: BP 125/60; PULSE 64; RESP 18; TEMP 97.1; O2SAT 97
[2016-07-15] MEDS: GABAPENTIN 300 MG CAP PO SCH ×3 (09:09→18:09)
[2016-07-15] MEDS: FAMOTIDINE 20 MG TAB PO SCH ×2 (09:09→22:45)
[2016-07-15] MEDS: SODIUM CHLORIDE 0.9% FLUSH 5 ML FLUSH IVF SCH (09:09)
[2016-07-15] MEDS: FUROSEMIDE 20 MG TAB PO SCH (09:09)
[2016-07-15] MEDS: DOCUSATE SODIUM 100 MG CAP PO SCH ×2 (09:09→22:45)
[2016-07-15] MEDS: POTASSIUM CHLORIDE 10 MEQ CONTROLLED RELEASE TAB PO SCH (09:10)
[2016-07-15] MEDS: DIAZEPAM 5 MG TAB PO PRN ×2 (09:10→22:50)
[2016-07-15] MEDS: PANTOPRAZOLE SOD 20 MG DELAYED RELEASE TAB PO SCH (09:10)
[2016-07-15] MEDS: DEXAMETHASONE SOD PHOS 0.1% OPHT SOLN 5 ML BTL EACH EYE SCH ×4 (09:10→22:46)
--- NOTE | 2016-07-15 10:33 | PD.ONC.PN ---
Subjective Subjective Remarks Afebrile overnight. Patient resting comfortably. She tolerated chemotherapy yesterday. Objective Data Date Time Temp Pulse Resp B/P Pulse Ox O2 Delivery O2 Flow Rate FiO2 07/15/16 08:00 97.1 64 18 125/60 97 07/15/16 05:44 96.3 67 17 153/67 95 07/15/16 00:00 97.0 95 18 131/60 92 07/14/16 20:00 96.5 73 18 135/59 95 07/14/16 16:00 97.8 62 18 143/70 95 07/14/16 12:00 98.2 79 18 104/55 97 Result Diagram: 07/14/1691407/14/16914 Administered Medications Medications (Trade) Dose Ordered Sig/Prashant Route PRN Reason Start Time Stop Time Status Last Admin Dose Admin IV Flush (NS Flush) DAILY IVF 07/14/16 09:00 07/15/16 09:09 Heparin Sodium (Porcine) (Heparin Central Flush) DAILY IVF 07/14/16 09:00 07/15/16 09:09 IV Flush (NS Flush) UNSCH PRN IVF SEE PROTOCOL 07/14/16 08:00 07/15/16 06:52 Heparin Sodium (Porcine) (Heparin Central Flush) UNSCH PRN IVF SEE PROTOCOL 07/14/16 08:00 07/15/16 06:53 Gabapentin (Neurontin) 300 mg TID PO 07/14/16 13:00 07/15/16 09:09 Carisoprodol (Soma) 350 mg Q8H PRN PO MUSCLE SPASM 07/14/16 09:15 07/15/16 05:36 Famotidine (Pepcid) 20 mg Q12HR PO 07/14/16 09:15 07/15/16 09:09 Furosemide (Lasix) 20 mg DAILY PO 07/15/16 09:00 07/15/16 09:09 Pantoprazole Sodium (Protonix) 20 mg DAILY PO 07/15/16 09:00 07/15/16 09:10 Levothyroxine Sodium (Synthroid) 25 mcg DAILY@0600 PO 07/15/16 06:00 07/15/16 05:36 Potassium Chloride (KCl) 10 meq DAILY PO 07/15/16 09:00 07/15/16 09:10 Oxycodone HCl (Roxicodone) 10 mg Q4H PRN PO PAIN SCALE 6 TO 10 07/14/16 09:15 07/15/16 09:54 Dexamethasone Sodium Phosphate (Decadron Opth 0.1% Soln) 2 drop QID EACH EYE 07/14/16 13:00 07/21/16 09:01 07/15/16 09:10 Docusate Sodium (Colace) 100 mg BID PO 07/14/16 21:00 07/15/16 09:09 Diazepam (Valium) 5 mg Q12H PRN PO MODERATE TO SEVERE ANXIETY 07/15/16 07:45 07/15/16 09:10 Objective Remarks GENERAL: Middle aged female, sitting up in room in nad. SKIN: Warm and dry. HEAD: Normocephalic. EYES: No injection or drainage. NECK: Supple, trachea midline. CARDIOVASCULAR: Regular rate and rhythm RESPIRATORY: Breath sounds equal bilaterally. No accessory muscle use. GASTROINTESTINAL: Abdomen soft, non-tender, nondistended. EXTREMITIES: No cyanosis NEUROLOGICAL: No obvious focal deficit. Awake, alert, and oriented x3. Assessment/Plan Problem List: (1) Chronic pain Status: Acute Plan: --followed by Dr. Omer --has pain pump --PRN Oxycodone, Soma, Valium (for anxiety) (2) AML (acute myeloid leukemia) Status: Acute Plan: 07/14: admitted, Day 1 of HiDAC 07/15: off day. 3: D 3, [facility] 07/17: off day 07/18: D5 HiDAC, discharge after chemo History: April 2016: diagnosis made--deletion of 7q + negative FLT3 (intermediate risk factor)--bone marrow biopsy showed acute myelogenous leukemia with 41% myeloblasts. May 2016: induction chemo with Albina-C + idarubicin. repeat bone marrow biopsy showed 0.8% myeloblasts-->complete remission (3) Hypothyroid Status: Acute Plan: --on Synthroid (4) Reflux gastritis Status: Acute Plan: --on PPI + Zantac Assessment 61y/o female with acute myelogenous leukemia, admitted for consolidation chemotherapy. h/o Chronic back pain. She had pain pump and is followed by Dr. Omer. Anxiety. Hypothyroidism. Peripheral neuropathy. Gastroesophageal reflux disease. Hemorrhoids. Plan 1. monitor CBC, CMP 2. monitor for toxicities 3. chemo tomorrow. Attending Statement The exam, history, and the medical decision-making described in the above note were completed with the assistance of the mid-level provider. I reviewed and agree with the findings presented. I attest that I had a [id number] encounter with the patient on the same day, and personally performed and documented my assessment and findings in the medical record. Tolerated Day#1 chemo. More fatigue. Has chronic back pain. Continue chemo protocol. Problem Qualifiers (1) AML (acute myeloid leukemia): Qualified Code: C92.01 - Acute myeloid leukemia in remission Radha Lawrence Jul 15, 2016 10:33 Ryan Tripp MD Jul 15, 2016 17:29
[2016-07-15 12:00] VITALS: BP 117/56; PULSE 70; RESP 20; TEMP 96.4; O2SAT 93
[2016-07-15 16:00] VITALS: BP 120/58; PULSE 62; RESP 18; TEMP 97.8; O2SAT 95
[2016-07-15 20:00] VITALS: BP 129/77; PULSE 100; RESP 17; TEMP 97.8; O2SAT 95
[2016-07-16] VITALS: BP 129/62; PULSE 56; RESP 18; TEMP 97.7; O2SAT 95
[2016-07-16] MEDS: SODIUM CHLORIDE 0.9% FLUSH 5 ML FLUSH IVF PRN (04:00)
[2016-07-16] MEDS: LEVOTHYROXINE SODIUM 25 MCG TAB PO SCH (05:11)
[2016-07-16 05:35] LABS: BICARBONATE 28.8 MEQ/L (21.0-32.0); POTASSIUM 3.8 MEQ/L (3.5-5.1)
[2016-07-16 05:45] VITALS: BP 137/62; PULSE 65; RESP 17; TEMP 98.2; O2SAT 95
[2016-07-16 08:00] VITALS: BP 121/70; PULSE 57; RESP 16; TEMP 97.3; O2SAT 96
[2016-07-16] MEDS: SODIUM CHLORIDE 0.9% FLUSH 5 ML FLUSH IVF SCH (09:29)
[2016-07-16] MEDS: FAMOTIDINE 20 MG TAB PO SCH ×2 (09:29→20:15)
[2016-07-16] MEDS: FUROSEMIDE 20 MG TAB PO SCH (09:29)
[2016-07-16] MEDS: PANTOPRAZOLE SOD 20 MG DELAYED RELEASE TAB PO SCH (09:29)
[2016-07-16] MEDS: DOCUSATE SODIUM 100 MG CAP PO SCH ×2 (09:29→20:15)
[2016-07-16] MEDS: POTASSIUM CHLORIDE 10 MEQ CONTROLLED RELEASE TAB PO SCH (09:29)
[2016-07-16] MEDS: DEXAMETHASONE SOD PHOS 0.1% OPHT SOLN 5 ML BTL EACH EYE SCH ×3 (09:30→20:16)
[2016-07-16] MEDS: GABAPENTIN 300 MG CAP PO SCH ×3 (09:30→17:48)
--- NOTE | 2016-07-16 12:14 | PD.ONC.PN ---
Subjective Subjective Remarks Afebrile overnight. Patient resting comfortably without complaint. Objective Data Date Time Temp Pulse Resp B/P Pulse Ox O2 Delivery O2 Flow Rate FiO2 07/16/16 10:34 18 07/16/16 08:00 97.3 57 16 121/70 96 07/16/16 05:45 98.2 65 17 137/62 95 07/16/16 00:00 97.7 56 18 129/62 95 07/15/16 20:00 97.8 100 17 129/77 95 07/15/16 16:00 97.8 62 18 120/58 95 Result Diagram: 07/14/16 0915 07/16/16 0400 Laboratory Results Laboratory Tests Test 07/16/16 04:00 Sodium Level 142 MEQ/L Potassium Level 3.8 MEQ/L Chloride Level 106 MEQ/L Carbon Dioxide Level 28.8 MEQ/L Anion Gap 7 MEQ/L Blood Urea Nitrogen 19 MG/DL Creatinine 0.76 MG/DL Estimat Glomerular Filtration 78 ML/MIN Rate Random Glucose 98 MG/DL Calcium Level 8.7 MG/DL Administered Medications Medications (Trade) Dose Ordered Sig/Prashant Route PRN Reason Start Time Stop Time Status Last Admin Dose Admin IV Flush (NS Flush) DAILY IVF 07/14/16 09:00 07/16/16 09:29 Heparin Sodium (Porcine) (Heparin Central Flush) DAILY IVF 07/14/16 09:00 07/16/16 09:28 IV Flush (NS Flush) UNSCH PRN IVF SEE PROTOCOL 07/14/16 08:00 07/16/16 04:00 Heparin Sodium (Porcine) (Heparin Central Flush) UNSCH PRN IVF SEE PROTOCOL 07/14/16 08:00 07/16/16 04:00 Gabapentin (Neurontin) 300 mg TID PO 07/14/16 13:00 07/16/16 09:30 Carisoprodol (Soma) 350 mg Q8H PRN PO MUSCLE SPASM 07/14/16 09:15 07/15/16 05:36 Famotidine (Pepcid) 20 mg Q12HR PO 07/14/16 09:15 07/16/16 09:29 Furosemide (Lasix) 20 mg DAILY PO 07/15/16 09:00 07/16/16 09:29 Pantoprazole Sodium (Protonix) 20 mg DAILY PO 07/15/16 09:00 07/16/16 09:29 Levothyroxine Sodium (Synthroid) 25 mcg DAILY@0600 PO 07/15/16 06:00 07/16/16 05:11 Potassium Chloride (KCl) 10 meq DAILY PO 07/15/16 09:00 07/16/16 09:29 Oxycodone HCl (Roxicodone) 10 mg Q4H PRN PO PAIN SCALE 6 TO 10 07/14/16 09:15 07/16/16 09:34 Dexamethasone Sodium Phosphate (Decadron Opth 0.1% Soln) 2 drop QID EACH EYE 07/14/16 13:00 07/21/16 09:01 07/16/16 09:30 Docusate Sodium (Colace) 100 mg BID PO 07/14/16 21:00 07/16/16 09:29 Diazepam (Valium) 5 mg Q12H PRN PO MODERATE TO SEVERE ANXIETY 07/15/16 07:45 07/15/16 22:50 Objective Remarks GENERAL: Pleasant female, sitting up in bed in nad. SKIN: Warm and dry. HEAD: Normocephalic. EYES: No injection or drainage. NECK: Supple, trachea midline. CARDIOVASCULAR: Regular rate and rhythm RESPIRATORY: Breath sounds equal bilaterally. No accessory muscle use. GASTROINTESTINAL: Abdomen soft, non-tender, nondistended. EXTREMITIES: No cyanosis NEUROLOGICAL: awake and alert, normal speech. moving all extremities. Assessment/Plan Problem List: (1) AML (acute myeloid leukemia) Status: Acute Plan: 07/14: admitted 07/15: D1, [facility]DAC 07/16 off day. 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 May 2016: induction chemo with Albina-C + idarubicin. repeat bone marrow biopsy showed 0.8% myeloblasts-->complete remission (2) Hypothyroid Status: Acute Plan: --on Synthroid (3) Reflux gastritis Status: Acute Plan: --on PPI + Zantac (4) Chronic pain Status: Acute Plan: --followed by Dr. Omer --has pain pump --PRN Oxycodone, Soma, Valium (for anxiety) Assessment 61y/o female with acute myelogenous leukemia, admitted for consolidation chemotherapy. h/o Chronic back pain. She had pain pump and is followed by Dr. Omer. Anxiety. Hypothyroidism. Peripheral neuropathy. Gastroesophageal reflux disease. Hemorrhoids. Plan 1. monitor CBC, CMP 2. chemo ~3AM tomorrow morning 3. Neupogen on Thursday Attending Statement The exam, history, and the medical decision-making described in the above note were completed with the assistance of the mid-level provider. I reviewed and agree with the findings presented. I attest that I had a [id number] encounter with the patient on the same day, and personally performed and documented my assessment and findings in the medical record. Has chronic back pain. She will have Day #2 of chemotherapy today. Monitor CBC. Problem Qualifiers (1) AML (acute myeloid leukemia): Qualified Code: C92.01 - Acute myeloid leukemia in remission Radha Lawrence Jul 16, 2016 12:13 Ryan Tripp MD Jul 16, 2016 13:47
[2016-07-16 13:00] VITALS: BP 126/57; PULSE 58; RESP 16; TEMP 97; O2SAT 97
[2016-07-16] MEDS ORDERED: GRANISETRON INJ 1 MG, DEXAMETHASONE INJ 20 MG in SODIUM CHLORIDE 0.9% INJ 50 ML IV SCH (14:00)
[2016-07-16] MEDS: GRANISETRON INJ 1 MG, DEXAMETHASONE INJ 20 MG in SODIUM CHLORIDE 0.9% INJ 50 ML IV SCH (15:34)
[2016-07-16] MEDS: SODIUM CHLORID 0.9% IV SCH (16:34)
[2016-07-16] MEDS: CYTARABINE IV SCH (16:34)
[2016-07-16 17:45] VITALS: BP 126/61; PULSE 66; RESP 16; TEMP 96.9; O2SAT 96
[2016-07-16 20:00] VITALS: BP 120/67; PULSE 69; RESP 18; TEMP 98; O2SAT 93
[2016-07-16] MEDS: DIAZEPAM 5 MG TAB PO PRN (20:15)
[2016-07-16] MEDS: LACTULOSE SYRUP 20 GM/30 ML CUP PO PRN (20:15)
[2016-07-17] MEDS: GRANISETRON INJ 1 MG, DEXAMETHASONE INJ 20 MG in SODIUM CHLORIDE 0.9% INJ 50 ML IV SCH (02:52)
[2016-07-17] MEDS: CYTARABINE IV SCH (03:26)
[2016-07-17] MEDS: SODIUM CHLORID 0.9% IV SCH (03:26)
[2016-07-17 04:00] VITALS: BP_SYST 134; BP_SYST 145; BP_DIAS 65; BP_DIAS 79; PULSE 57; PULSE 66; RESP 17; TEMP 97.8; TEMP 97.9; O2SAT 97
[2016-07-17 04:07] LABS: BICARBONATE 29.7 MEQ/L (21.0-32.0); POTASSIUM 4.3 MEQ/L (3.5-5.1)
[2016-07-17] MEDS: LEVOTHYROXINE SODIUM 25 MCG TAB PO SCH (05:25)
[2016-07-17 08:00] VITALS: BP 133/60; PULSE 62; RESP 16; TEMP 97.1; O2SAT 93
[2016-07-17] MEDS: GABAPENTIN 300 MG CAP PO SCH ×3 (08:16→17:27)
[2016-07-17] MEDS: DOCUSATE SODIUM 100 MG CAP PO SCH ×2 (08:16→20:20)
[2016-07-17] MEDS: FUROSEMIDE 20 MG TAB PO SCH (08:16)
[2016-07-17] MEDS: PANTOPRAZOLE SOD 20 MG DELAYED RELEASE TAB PO SCH (08:16)
[2016-07-17] MEDS: FAMOTIDINE 20 MG TAB PO SCH ×2 (08:16→20:19)
[2016-07-17] MEDS: POTASSIUM CHLORIDE 10 MEQ CONTROLLED RELEASE TAB PO SCH (08:16)
[2016-07-17] MEDS: DEXAMETHASONE SOD PHOS 0.1% OPHT SOLN 5 ML BTL EACH EYE SCH ×4 (08:17→20:20)
[2016-07-17] MEDS: SODIUM CHLORIDE 0.9% FLUSH 5 ML FLUSH IVF SCH (08:17)
[2016-07-17 12:00] VITALS: BP 127/68; PULSE 68; RESP 16; TEMP 97.4; O2SAT 96
--- NOTE | 2016-07-17 13:57 | PD.ONC.PN ---
Subjective Subjective Remarks Afebrile overnight. Patient resting comfortably. She tolerated chemotherapy last night. Objective Data Date Time Temp Pulse Resp B/P Pulse Ox O2 Delivery O2 Flow Rate FiO2 07/17/16 12:00 97.4 68 16 127/68 96 07/17/16 08:00 97.1 62 16 133/60 93 07/17/16 04:00 97.9 57 17 134/65 97 07/16/16 20:00 98.0 69 18 120/67 93 07/16/16 17:45 96.9 66 16 126/61 96 07/16/16 14:28 18 07/17/16 07/17/16 07/17/16 07:00 15:00 23:00 Intake Total 480 ml 960 ml Balance 480 ml 960 ml Result Diagram: 07/14/16 0915 07/17/16 0320 Laboratory Results Laboratory Tests Test 07/17/16 03:20 Sodium Level 142 MEQ/L Potassium Level 4.3 MEQ/L Chloride Level 106 MEQ/L Carbon Dioxide Level 29.7 MEQ/L Anion Gap 6 MEQ/L Blood Urea Nitrogen 19 MG/DL Creatinine 0.69 MG/DL Estimat Glomerular Filtration 87 ML/MIN Rate Random Glucose 118 MG/DL Calcium Level 9.0 MG/DL Administered Medications Medications (Trade) Dose Ordered Sig/Prashant Route PRN Reason Start Time Stop Time Status Last Admin Dose Admin IV Flush (NS Flush) DAILY IVF 07/14/16 09:00 07/17/16 08:17 Heparin Sodium (Porcine) (Heparin Central Flush) DAILY IVF 07/14/16 09:00 07/17/16 08:17 IV Flush (NS Flush) UNSCH PRN IVF SEE PROTOCOL 07/14/16 08:00 07/16/16 04:00 Heparin Sodium (Porcine) (Heparin Central Flush) UNSCH PRN IVF SEE PROTOCOL 07/14/16 08:00 07/16/16 04:00 Gabapentin (Neurontin) 300 mg TID PO 07/14/16 13:00 07/17/16 12:36 Carisoprodol (Soma) 350 mg Q8H PRN PO MUSCLE SPASM 07/14/16 09:15 07/15/16 05:36 Famotidine (Pepcid) 20 mg Q12HR PO 07/14/16 09:15 07/17/16 08:16 Furosemide (Lasix) 20 mg DAILY PO 07/15/16 09:00 07/17/16 08:16 Pantoprazole Sodium (Protonix) 20 mg DAILY PO 07/15/16 09:00 07/17/16 08:16 Levothyroxine Sodium (Synthroid) 25 mcg DAILY@0600 PO 07/15/16 06:00 07/17/16 05:25 Potassium Chloride (KCl) 10 meq DAILY PO 07/15/16 09:00 07/17/16 08:16 Oxycodone HCl (Roxicodone) 10 mg Q4H PRN PO PAIN SCALE 6 TO 10 07/14/16 09:15 07/17/16 12:37 Dexamethasone Sodium Phosphate (Decadron Opth 0.1% Soln) 2 drop QID EACH EYE 07/14/16 13:00 07/21/16 09:01 07/17/16 12:35 Docusate Sodium (Colace) 100 mg BID PO 07/14/16 21:00 07/17/16 08:16 Diazepam (Valium) 5 mg Q12H PRN PO MODERATE TO SEVERE ANXIETY 07/15/16 07:45 07/16/16 20:15 Lactulose (Lactulose Liq) 30 ml DAILY PRN PO CONSTIPATION 07/16/16 20:00 07/16/16 20:15 Objective Remarks GENERAL: Middle aged female, sitting up in bed in [facility]. SKIN: Warm and dry. HEAD: Normocephalic. EYES: No injection or drainage. NECK: Supple, trachea midline. CARDIOVASCULAR: Regular rate and rhythm RESPIRATORY: Breath sounds equal bilaterally. No accessory muscle use. GASTROINTESTINAL: Abdomen soft, non-tender, nondistended. EXTREMITIES: No cyanosis NEUROLOGICAL: awake and alert, no focal deficit Assessment/Plan Problem List: (1) AML (acute myeloid leukemia) Status: Acute Plan: 07/14: admitted 07/15: D1, [facility] 07/16 off day. 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 May 2016: induction chemo with Albina-C + idarubicin. repeat bone marrow biopsy showed 0.8% myeloblasts-->complete remission (2) Hypothyroid Status: Acute Plan: --on Synthroid (3) Reflux gastritis Status: Acute Plan: --on PPI + Zantac (4) Chronic pain Status: Acute Plan: --followed by Dr. Omer --has pain pump --PRN Oxycodone, Soma, Valium (for anxiety) Assessment 61y/o female with acute myelogenous leukemia, admitted for consolidation chemotherapy. h/o Chronic back pain. She had pain pump and is followed by Dr. Omer. Anxiety. Hypothyroidism. Peripheral neuropathy. Gastroesophageal reflux disease. Hemorrhoids. Plan 1. monitor BMP 2. supportive care 3. plan for discharge Thursday AM after chemotherapy 4. schedule daily CBC + Neupogen until recovery starting next week as well as appointment with Dr. Tripp next in PO. Attending Statement The exam, history, and the medical decision-making described in the above note were completed with the assistance of the mid-level provider. I reviewed and agree with the findings presented. I attest that I had a [id number] encounter with the patient on the same day, and personally performed and documented my assessment and findings in the medical record. Tolerating chemotherapy. Chronic back pain controlled. Continue supportive care. Problem Qualifiers (1) AML (acute myeloid leukemia): Qualified Code: C92.01 - Acute myeloid leukemia in remission Radha Lawrence Jul 17, 2016 13:57 Ryan Tripp MD Jul 17, 2016 17:14
[2016-07-17 16:00] VITALS: BP 144/60; PULSE 67; RESP 16; TEMP 98.2; O2SAT 97
[2016-07-17 20:00] VITALS: BP 141/65; PULSE 77; RESP 16; TEMP 98.7; O2SAT 96
[2016-07-17] MEDS: DIAZEPAM 5 MG TAB PO PRN (21:46)
[2016-07-18] VITALS: BP 138/64; PULSE 57; RESP 16; TEMP 98.1; O2SAT 97
[2016-07-18 05:19] VITALS: BP 138/64; PULSE 61; RESP 16; TEMP 98.1; O2SAT 92
[2016-07-18] MEDS: LEVOTHYROXINE SODIUM 25 MCG TAB PO SCH (05:20)
[2016-07-18 06:55] LABS: BICARBONATE 28.9 MEQ/L (21.0-32.0); POTASSIUM 3.6 MEQ/L (3.5-5.1)
[2016-07-18 08:00] VITALS: BP 119/64; PULSE 50; RESP 16; TEMP 96.9; O2SAT 97
[2016-07-18] MEDS: DOCUSATE SODIUM 100 MG CAP PO SCH ×2 (08:27→19:51)
[2016-07-18] MEDS: POTASSIUM CHLORIDE 10 MEQ CONTROLLED RELEASE TAB PO SCH (08:27)
[2016-07-18] MEDS: PANTOPRAZOLE SOD 20 MG DELAYED RELEASE TAB PO SCH (08:27)
[2016-07-18] MEDS: FUROSEMIDE 20 MG TAB PO SCH (08:27)
[2016-07-18] MEDS: GABAPENTIN 300 MG CAP PO SCH ×3 (08:27→17:41)
[2016-07-18] MEDS: DEXAMETHASONE SOD PHOS 0.1% OPHT SOLN 5 ML BTL EACH EYE SCH ×4 (08:28→19:52)
[2016-07-18] MEDS: SODIUM CHLORIDE 0.9% FLUSH 5 ML FLUSH IVF SCH (08:30)
--- NOTE | 2016-07-18 09:43 | PD.ONC.PN ---
Subjective Subjective Remarks Afebrile overnight. Pt states she slept well last night. She is looking forward to going home tomorrow. No bleeding. Objective Data Date Time Temp Pulse Resp B/P Pulse Ox O2 Delivery O2 Flow Rate FiO2 07/18/16 08:00 96.9 50 16 119/64 97 07/18/16 05:19 98.1 61 16 138/64 92 07/18/16 00:00 98.1 57 16 138/64 97 07/17/16 20:00 98.7 77 16 141/65 96 07/17/16 16:00 98.2 67 16 144/60 97 07/17/16 12:00 97.4 68 16 127/68 96 Result Diagram: 07/14/16 0915 07/18/16 0525 Laboratory Results Laboratory Tests Test 07/18/16 05:25 Sodium Level 144 MEQ/L Potassium Level 3.6 MEQ/L Chloride Level 108 MEQ/L Carbon Dioxide Level 28.9 MEQ/L Anion Gap 7 MEQ/L Blood Urea Nitrogen 16 MG/DL Creatinine 0.63 MG/DL Estimat Glomerular Filtration 96 ML/MIN Rate Random Glucose 80 MG/DL Calcium Level 8.8 MG/DL Administered Medications Medications (Trade) Dose Ordered Sig/Prashant Route PRN Reason Start Time Stop Time Status Last Admin Dose Admin IV Flush (NS Flush) DAILY IVF 07/14/16 09:00 07/17/16 08:17 Heparin Sodium (Porcine) (Heparin Central Flush) DAILY IVF 07/14/16 09:00 07/17/16 08:17 IV Flush (NS Flush) UNSCH PRN IVF SEE PROTOCOL 07/14/16 08:00 07/16/16 04:00 Heparin Sodium (Porcine) (Heparin Central Flush) UNSCH PRN IVF SEE PROTOCOL 07/14/16 08:00 07/16/16 04:00 Gabapentin (Neurontin) 300 mg TID PO 07/14/16 13:00 07/18/16 08:27 Carisoprodol (Soma) 350 mg Q8H PRN PO MUSCLE SPASM 07/14/16 09:15 07/15/16 05:36 Famotidine (Pepcid) 20 mg Q12HR PO 07/14/16 09:15 07/17/16 20:19 Furosemide (Lasix) 20 mg DAILY PO 07/15/16 09:00 07/18/16 08:27 Pantoprazole Sodium (Protonix) 20 mg DAILY PO 07/15/16 09:00 07/18/16 08:27 Levothyroxine Sodium (Synthroid) 25 mcg DAILY@0600 PO 07/15/16 06:00 07/18/16 05:20 Potassium Chloride (KCl) 10 meq DAILY PO 07/15/16 09:00 07/18/16 08:27 Oxycodone HCl (Roxicodone) 10 mg Q4H PRN PO PAIN SCALE 6 TO 10 07/14/16 09:15 07/18/16 05:21 Dexamethasone Sodium Phosphate (Decadron Opth 0.1% Soln) 2 drop QID EACH EYE 07/14/16 13:00 07/21/16 09:01 07/18/16 08:28 Docusate Sodium (Colace) 100 mg BID PO 07/14/16 21:00 07/18/16 08:27 Diazepam (Valium) 5 mg Q12H PRN PO MODERATE TO SEVERE ANXIETY 07/15/16 07:45 07/17/16 21:46 Lactulose (Lactulose Liq) 30 ml DAILY PRN PO CONSTIPATION 07/16/16 20:00 07/16/16 20:15 Objective Remarks GENERAL: Older female, sitting up on side of bed watching TV in no distress. She is cheerful. SKIN: Warm and dry. No oozing from port site. HEAD: Normocephalic. +Alopecia. EYES: No injection or drainage. NECK: Supple, trachea midline. CARDIOVASCULAR: +S1/S2. No murmur appreciated. RESPIRATORY: Lungs clear throughout. GASTROINTESTINAL: Abdomen soft, non-tender, nondistended. EXTREMITIES: No cyanosis, or edema. MUSCULOSKELETAL: Walking around room independently. NEUROLOGICAL: A&Ox3. No obvious focal deficit. Moving all extremities. Assessment/Plan Problem List: (1) AML (acute myeloid leukemia) Status: Acute Plan: 07/14: admitted 07/15: D1, HiDAC 07/16 off day. 07/17: D 3, s/p HiDAC @~3AM 07/18: Cytarabine today at 1400. 2nd dose at 0200. 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 May 2016: induction chemo with Albina-C + idarubicin. repeat bone marrow biopsy showed 0.8% myeloblasts-->complete remission (2) Hypothyroid Status: Acute Plan: --on Synthroid (3) Reflux gastritis Status: Acute Plan: --on PPI + Zantac (4) Chronic pain Status: Acute Plan: --followed by Dr. Omer --has pain pump --PRN Oxycodone, Soma, Valium (for anxiety) Assessment 61y/o female with acute myelogenous leukemia, admitted for consolidation chemotherapy. h/o Chronic back pain. She had pain pump and is followed by Dr. Omer. Anxiety. Hypothyroidism. Peripheral neuropathy. Gastroesophageal reflux disease. Hemorrhoids. Plan 1. Cytarabine today. 2. Check blood counts in am prior to discharge; transfuse as necessary. 3. Followup in clinic next week for daily CBC + Neupogen until counts recover. 4. Supportive care. Attending Statement The exam, history, and the medical decision-making described in the above note were completed with the assistance of the mid-level provider. I reviewed and agree with the findings presented. I attest that I had a [id number] encounter with the patient on the same day, and personally performed and documented my assessment and findings in the medical record. Tolerating chemotherapy. No significant side effect. Will finish consolidation chemo in AM. Plan to d/c if stable. Monitor CBC daily and neupogen daily starting Thursday. Problem Qualifiers (1) AML (acute myeloid leukemia): Qualified Code: C92.01 - Acute myeloid leukemia in remission Marissa Juarez Jul 18, 2016 09:43 Ryan Tripp MD Jul 18, 2016 15:37
[2016-07-18] MEDS: FAMOTIDINE 20 MG TAB PO SCH ×2 (09:49→19:51)
[2016-07-18 12:00] VITALS: BP 120/59; PULSE 60; RESP 16; TEMP 96.3; O2SAT 96
[2016-07-18] MEDS: GRANISETRON INJ 1 MG, DEXAMETHASONE INJ 20 MG in SODIUM CHLORIDE 0.9% INJ 50 ML IV SCH (13:03)
[2016-07-18] MEDS: CYTARABINE IV SCH (13:28)
[2016-07-18] MEDS: SODIUM CHLORID 0.9% IV SCH (13:28)
--- NOTE | 2016-07-18 13:51 | HHI.DCPOC ---
Discharge Care Plan Diagnosis: (1) AML (acute myeloid leukemia) Goals to Promote Your Health * To prevent worsening of your condition and complications * To maintain your health at the optimal level Directions to Meet Your Goals Take your medications as prescribed Follow your dietary instruction Follow activity as directed Keep your appointments as scheduled Take your immunizations and boosters as scheduled If your symptoms worsen call your PCP, if no PCP go to Urgent Care Center or Emergency Room Smoking is Dangerous to Your Health. Avoid second hand smoke Call the 24-hour hour crisis hotline for domestic abuse at Radha Lawrence Jul 18, 2016 13:50
--- NOTE | 2016-07-18 13:55 | HHI.DS ---
Discharge Summary Admission Date Jul 14, 2016 at 07:02 Discharge Date: Jul 19, 2016 Admitting Diagnosis AML, admitted for consolidation chemotherapy with HiDAC, cycle #1 (1) AML (acute myeloid leukemia) Diagnosis: Principal Brief History Ms. 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 She underwent induction chemotherapy in May-June 2016 and entered a complete remission. She is being admitted for her first cycle of consolidation chemotherapy. CBC/BMP: 07/14/16 0915 07/18/16 0525 Significant Findings Laboratory Tests Test 07/16/16 07/17/16 07/18/16 04:00 03:20 05:25 Blood Urea Nitrogen 19 MG/DL (7-18) 19 MG/DL (7-18) Estimat Glomerular Filtration 78 ML/MIN (>89) 87 ML/MIN (>89) Rate Random Glucose 118 MG/DL (74-106) Chloride Level 108 MEQ/L (98-107) PE at Discharge please see physical exam from progress note on date of discharge Hospital Course Ms. Chawla was admitted on 07/14/16 for consolidation chemotherapy with high dose Albina-C for acute myelogenous leukemia. Her home medications were resumed. She tolerated chemotherapy on days 1, 3, and 5 and is being discharged home in stable condition with instructions for follow up on Thursday07/21/16. Pt Condition on Discharge: Good Discharge Disposition: Discharge Home Discharge Instructions DIET: Follow Instructions for: As Tolerated, No Restrictions Activities you can perform: Regular-No Restrictions Radha Lawrence Jul 18, 2016 13:55
[2016-07-18] MEDS: LACTULOSE SYRUP 20 GM/30 ML CUP PO PRN (15:46)
[2016-07-18 16:00] VITALS: BP 138/70; PULSE 63; RESP 16; TEMP 96.9; O2SAT 97
[2016-07-18] MEDS: DIAZEPAM 5 MG TAB PO PRN (19:51)
[2016-07-18 20:00] VITALS: BP 135/73; PULSE 61; RESP 17; TEMP 96.8; O2SAT 96
[2016-07-19] VITALS: BP 131/74; PULSE 54; RESP 16; TEMP 97.1; O2SAT 97
[2016-07-19] MEDS: GRANISETRON INJ 1 MG, DEXAMETHASONE INJ 20 MG in SODIUM CHLORIDE 0.9% INJ 50 ML IV SCH (01:11)
[2016-07-19] MEDS: SODIUM CHLORID 0.9% IV SCH (01:56)
[2016-07-19] MEDS: CYTARABINE IV SCH (01:56)
[2016-07-19 03:10] LABS: AUTOMATED NEUTROPHIL # 3.1 TH/MM3 (1.8-7.7); BASOPHIL % 0.2 % (0.0-2.0); EOSINOPHIL % 0.1 % (0.0-4.0); HEMATOCRIT 30.7 % (35.0-46.0); HEMO FLAGS DIFF FINAL; LYMPH % 4.7 % (9.0-44.0); LYMPHOCYTE # 0.2 TH/MM3 (1.0-4.8); MEAN CELL VOLUME 91.6 FL (80.0-100.0); MEAN CORPUSCULAR HEMOGLOBIN 31.5 PG (27.0-34.0); MEAN CORPUSCULAR HGB CONC 34.4 % (32.0-36.0); MONO % 0.2 % (0.0-8.0); NEUT % 94.8 % (16.0-70.0); PLATELET COUNT 213 TH/MM3 (150-450); RED BLOOD COUNT 3.35 MIL/MM3 (4.00-5.30); RED CELL DISTRIBUTION WIDTH 17.2 % (11.6-17.2); WHITE BLOOD COUNT 3.3 TH/MM3 (4.0-11.0)
[2016-07-19 03:22] LABS: BICARBONATE 29.2 MEQ/L (21.0-32.0); POTASSIUM 4.3 MEQ/L (3.5-5.1)
[2016-07-19 04:00] VITALS: BP 157/79; PULSE 69; RESP 17; TEMP 97.8; O2SAT 96
[2016-07-19] MEDS: LEVOTHYROXINE SODIUM 25 MCG TAB PO SCH (05:05)
--- NOTE | 2016-07-19 07:45 | PD.ONC.PN ---
Subjective Subjective Remarks Afebrile overnight. Pt sitting up in bed watching TV. She is asking about her blood counts. Anxious to go home. No complaints. Objective Data Date Time Temp Pulse Resp B/P Pulse Ox O2 Delivery O2 Flow Rate FiO2 07/19/16 04:00 97.8 69 17 157/79 96 07/19/16 00:00 97.1 54 16 131/74 97 07/18/16 20:00 96.8 61 17 135/73 96 07/18/16 16:00 96.9 63 16 138/70 97 07/18/16 12:00 96.3 60 16 120/59 96 07/18/16 08:00 96.9 50 16 119/64 97 Result Diagram: 07/19/16 0200 07/19/16 0200 Laboratory Results Laboratory Tests Test 07/19/16 02:00 White Blood Count 3.3 TH/MM3 Red Blood Count 3.35 MIL/MM3 Hemoglobin 10.6 GM/DL Hematocrit 30.7 % Mean Corpuscular Volume 91.6 FL Mean Corpuscular Hemoglobin 31.5 PG Mean Corpuscular Hemoglobin 34.4 % Concent Red Cell Distribution Width 17.2 % Platelet Count 213 TH/MM3 Mean Platelet Volume 7.6 FL Neutrophils (%) (Auto) 94.8 % Lymphocytes (%) (Auto) 4.7 % Monocytes (%) (Auto) 0.2 % Eosinophils (%) (Auto) 0.1 % Basophils (%) (Auto) 0.2 % Neutrophils # (Auto) 3.1 TH/MM3 Lymphocytes # (Auto) 0.2 TH/MM3 Monocytes # (Auto) 0.0 TH/MM3 Eosinophils # (Auto) 0.0 TH/MM3 Basophils # (Auto) 0.0 TH/MM3 CBC Comment DIFF FINAL Differential Comment Sodium Level 141 MEQ/L Potassium Level 4.3 MEQ/L Chloride Level 106 MEQ/L Carbon Dioxide Level 29.2 MEQ/L Anion Gap 6 MEQ/L Blood Urea Nitrogen 16 MG/DL Creatinine 0.60 MG/DL Estimat Glomerular Filtration 102 ML/MIN Rate Random Glucose 112 MG/DL Calcium Level 8.9 MG/DL Administered Medications Medications (Trade) Dose Ordered Sig/Prashant Route PRN Reason Start Time Stop Time Status Last Admin Dose Admin IV Flush (NS Flush) DAILY IVF 07/14/16 09:00 07/17/16 08:17 Heparin Sodium (Porcine) (Heparin Central Flush) DAILY IVF 07/14/16 09:00 07/17/16 08:17 IV Flush (NS Flush) UNSCH PRN IVF SEE PROTOCOL 07/14/16 08:00 07/16/16 04:00 Heparin Sodium (Porcine) (Heparin Central Flush) UNSCH PRN IVF SEE PROTOCOL 07/14/16 08:00 07/16/16 04:00 Gabapentin (Neurontin) 300 mg TID PO 07/14/16 13:00 07/18/16 17:41 Carisoprodol (Soma) 350 mg Q8H PRN PO MUSCLE SPASM 07/14/16 09:15 07/15/16 05:36 Famotidine (Pepcid) 20 mg Q12HR PO 07/14/16 09:15 07/18/16 19:51 Furosemide (Lasix) 20 mg DAILY PO 07/15/16 09:00 07/18/16 08:27 Pantoprazole Sodium (Protonix) 20 mg DAILY PO 07/15/16 09:00 07/18/16 08:27 Levothyroxine Sodium (Synthroid) 25 mcg DAILY@0600 PO 07/15/16 06:00 07/19/16 05:05 Potassium Chloride (KCl) 10 meq DAILY PO 07/15/16 09:00 07/18/16 08:27 Oxycodone HCl (Roxicodone) 10 mg Q4H PRN PO PAIN SCALE 6 TO 10 07/14/16 09:15 07/19/16 05:07 Dexamethasone Sodium Phosphate (Decadron Opth 0.1% Soln) 2 drop QID EACH EYE 07/14/16 13:00 07/21/16 09:01 07/18/16 19:52 Docusate Sodium (Colace) 100 mg BID PO 07/14/16 21:00 07/18/16 19:51 Diazepam (Valium) 5 mg Q12H PRN PO MODERATE TO SEVERE ANXIETY 07/15/16 07:45 07/18/16 19:51 Lactulose (Lactulose Liq) 30 ml DAILY PRN PO CONSTIPATION 07/16/16 20:00 07/18/16 15:46 Objective Remarks GENERAL: Older female, sitting up on side of bed watching TV in no distress. SKIN: Warm and dry. No oozing from port site. HEAD: Normocephalic. +Alopecia. EYES: No injection or drainage. NECK: Supple, trachea midline. CARDIOVASCULAR: +S1/S2. RESPIRATORY: Lungs clear throughout. GASTROINTESTINAL: Abdomen soft, non-tender, nondistended. EXTREMITIES: No cyanosis, or edema. MUSCULOSKELETAL: Walking around room independently. NEUROLOGICAL: A&Ox3. No obvious focal deficit. Moving all extremities. Assessment/Plan Problem List: (1) AML (acute myeloid leukemia) Status: Acute Plan: 07/14: admitted 07/15: D1, HiDAC 07/16 off day. 07/17: D 3, s/p HiDAC @~3AM 07/18: Cytarabine today at 1400. 2nd dose at 0200. 07/19: Finished chemo early this morning. Blood counts stable. No transfusion necessary. 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 May 2016: induction chemo with Albina-C + idarubicin. repeat bone marrow biopsy showed 0.8% myeloblasts-->complete remission (2) Hypothyroid Status: Acute Plan: --on Synthroid (3) Reflux gastritis Status: Acute Plan: --on PPI + Zantac (4) Chronic pain Status: Acute Plan: --followed by Dr. Omer --has pain pump --PRN Oxycodone, Soma, Valium (for anxiety) Assessment 61y/o female with acute myelogenous leukemia, admitted for consolidation chemotherapy. h/o Chronic back pain. She had pain pump and is followed by Dr. Omer. Anxiety. Hypothyroidism. Peripheral neuropathy. Gastroesophageal reflux disease. Hemorrhoids. Plan 1. Tolerated induction chemotherapy very well. OK for discharge today. 2. No transfusion necessary. 3. Followup in clinic next week for daily CBC + Neupogen until counts recover. Problem Qualifiers (1) AML (acute myeloid leukemia): Qualified Code: C92.01 - Acute myeloid leukemia in remission LarryMarissaemily SCRUGGS Jul 19, 2016 07:45
[2016-07-19 08:00] VITALS: BP 142/62; PULSE 68; RESP 20; TEMP 97.7; O2SAT 97
[2016-07-19] MEDS: FUROSEMIDE 20 MG TAB PO SCH (09:17)
[2016-07-19] MEDS: FAMOTIDINE 20 MG TAB PO SCH (09:17)
[2016-07-19] MEDS: GABAPENTIN 300 MG CAP PO SCH (09:17)
[2016-07-19] MEDS: DOCUSATE SODIUM 100 MG CAP PO SCH (09:17)
[2016-07-19] MEDS: PANTOPRAZOLE SOD 20 MG DELAYED RELEASE TAB PO SCH (09:17)
[2016-07-19] MEDS: POTASSIUM CHLORIDE 10 MEQ CONTROLLED RELEASE TAB PO SCH (09:17)
[2016-07-19] MEDS: SODIUM CHLORIDE 0.9% FLUSH 5 ML FLUSH IVF SCH (09:17)
== END 2016-07-19 09:32 | disposition home or self-care (01) | DRG 847 ==
LOC: HOCB 07-14 07:02 → HOCA 07-14 23:43
PROVIDERS: ADMIT Internal Medicine Hematology & Oncology; ATTEND Internal Medicine Hematology & Oncology
DX: Z51.11 Encounter for antineoplastic chemotherapy (principal); C92.Z1 Other myeloid leukemia, in remission; G62.9 Polyneuropathy, unspecified; E03.9 Hypothyroidism, unspecified; F41.9 Anxiety disorder, unspecified; K21.9 Gastro-esophageal reflux disease without esophagitis; K64.9 Unspecified hemorrhoids; M54.9 Dorsalgia, unspecified; G89.29 Other chronic pain
CPT/HCPCS: 80048; 80053; 85025; J1100; J1626; J1642; J7040; J9100

== ENCOUNTER 2016-07-27 09:07 | Emergency (ER) | payer OTHER ==
[~2016-07-27] VITALS: Ht 175.3 cm; Wt 73.0 kg
[~2016-07-27 09:07] MED LIST changes: -ACYC200C66 PO; -ALLO300 PO
[2016-07-27 09:12] VITALS: BP 132/62; PULSE 72; RESP 14; TEMP 98; O2SAT 99
[2016-07-27] MEDS ORDERED: SODIUM CHLOR 0.9% 250 ML INJ 250 ML IV ONE ×2 (09:30)
--- NOTE | 2016-07-27 09:34 | PD ---
HPI Chief Complaint: Abnormal Results Time Seen by Provider: 09:19 Travel History International Travel<30 days: No Contact w/Intl Traveler<30days: No Traveled to known affect area: No History of Present Illness HPI Patient is a 61-year-old female who presents to emergency room by Dr. Arie Tripp (hem/onc) for blood transfusion. As per Krista Thomas PA for Dr. Ryan Tripp, patient has history of AML. Reports that patient is status post consolidation chemotherapy 2 weeks ago and is currently pancytopenic. Reports that she has been getting blood drawn every single day, reports that if her hemoglobin drops to less than 8 then she receives a unit of blood. Reports that if her platelet shop to less than 20, then she receives one unit of packed red blood cells.Reports that she had blood work today which showed a HBG of 7.8 and platelets of 14. Reports that she would normally receive this blood while in the clinic but since it's the weekend, she is usually admitted to the hospital for blood transfusion. Reports that since this is a busy week for [facility], administration does not want patient admitted for blood transfusion - would rather have patient be transfused with blood in the ER and sent home if possible. Request that patient be transfused with blood and then discharged to home if there are no complications. Guidelines for transfusion as per Krista KINNEY If hemoglobin is less than 8 and patient receives one unit of packed red blood cells If platelets is less than 20, patient receives one unit of platelets PFS Past Medical History Arthritis: No Asthma: No Anxiety: No Depression: No Heart Rhythm Problems: No Cancer: No Cardiac Catheterization: No Cardiovascular Problems: No High Cholesterol: No Chemotherapy: Yes Chest Pain: No Congestive Heart Failure: No COPD: No Cerebrovascular Accident: No Diabetes: No Diminished Hearing: No Endocrine: Yes Gastrointestinal Disorders: Yes GERD: Yes Glaucoma: No Genitourinary: No Hepatitis: No Hiatal Hernia: No Hypertension: Yes Immune Disorder: No Implanted Vascular Access Dvce: Yes (DILAUDID THERAPEUTIC SPECIALIST, PORT) Kidney Stones: No Medical other: Yes (BACK AND NECK PROBLEMS AFTER INJURY HAD BACK AND NECK SURGERY) Musculoskeletal: Yes Neurologic: Yes (NEUROPATHY) Psychiatric: No Reproductive: No Respiratory: Yes Migraines: No Myocardial Infarction: No Renal Failure: No Seizures: No Sleep Apnea: No Thyroid Disease: Yes Ulcer: No Tetanus Vaccination: Unknown Influenza Vaccination: Yes Menopausal: Yes Past Surgical History AICD: No Arteriovenous Shunt: No Body Medical Devices: DILAUDID THERAPEUTIC SPECIALIST PAIN PUMP RIGHT ABDOMEN Coronary Artery Bypass Graft: No Gynecologic Surgery: Yes (REMOVAL UTERUS CYST) Insulin Pump: No Joint Replacement: No Pacemaker: No Other Surgery: Yes (MULTIPLE BACK SURGERIES, CARPAL TUNNEL BILATERALLY, shoulder) Family History Family Myocardial Infarction: Yes Social History Alcohol Use: No Tobacco Use: No Substance Use: No Allergies-Medications (Allergen,Severity, Reaction): Coded Allergies: No Known Allergies (Verified , 07/27/16) Reported Meds & Prescriptions Reported Meds & Active Scripts Active Reported Protonix (Pantoprazole Sodium) 20 Mg Tab 20 Mg PO DAILY Gabapentin 300 Mg Cap 300 Mg PO TID Zantac (Ranitidine HCl) 150 Mg Tab 150 Mg PO BID Synthroid (Levothyroxine Sodium) 25 Mcg Tab 25 Mcg PO DAILY Potassium Chloride ER (Potassium Chloride) 10 Meq Cap 10 Meq PO DAILY Lasix (Furosemide) 20 Mg Tab 20 Mg PO DAILY Soma (Carisoprodol) 350 Mg Tab 350 Mg PO TID PRN Review of Systems General / Constitutional: No: Fever Eyes: No: Visual changes HENT: No: Headaches Cardiovascular: No: Chest Pain or Discomfort Respiratory: No: Shortness of Breath Gastrointestinal: No: Abdominal Pain Genitourinary: No: Dysuria Musculoskeletal: No: Pain Skin: No Rash Neurologic: No: Weakness Psychiatric: No: Depression Endocrine: No: Polydipsia Hematologic/Lymphatic: No: Easy Bruising Physical Exam Narrative GENERAL: No acute distress, nontoxic SKIN: Warm and dry. HEAD: Atraumatic. Normocephalic. EYES:. No injection or drainage. ENT: No nasal bleeding or discharge. Mucous membranes pink and moist. NECK: Trachea midline. No JVD. CARDIOVASCULAR: Regular rate and rhythm. No murmur appreciated. RESPIRATORY: No accessory muscle use. Clear to auscultation. Breath sounds equal bilaterally. GASTROINTESTINAL: Abdomen soft, non-tender, nondistended. Hepatic and splenic margins not palpable. MUSCULOSKELETAL: No obvious deformities. No clubbing. No cyanosis. No edema. NEUROLOGICAL: Awake and alert. Motor grossly within normal limits. Normal speech. PSYCHIATRIC: Appropriate mood and affect; insight and judgment normal. Data Data Last Documented VS Vital Signs Date Time Temp Pulse Resp B/P Pulse Ox O2 Delivery O2 Flow Rate FiO2 07/27/16 14:58 98.8 62 18 122/60 95 Room Air Orders Basic Metabolic Panel (Bmp) (07/27/16 09:19) Complete Blood Count With Diff (07/27/16 09:19) Type And Screen (07/27/16:19) Iv Access Insert/Monitor (07/27/16:19) Blood Product Administration .UPON TRANSFUSION (07/27/16 09:19) Red Blood Cells (Rbc) (07/27/16 09:19) Sodium Chlor 0.9% 250 Ml Inj (Ns 250 Ml (07/27/16 09:30) Platelet Pheresis Irradiated (07/27/16 09:19) Sodium Chlor 0.9% 250 Ml Inj (Ns 250 Ml (07/27/16 09:30) Albuterol-Ipratropium Neb (Duoneb Neb) (07/27/16 13:51) Labs Laboratory Tests Test 07/27/16 09:30 White Blood Count 0.3 TH/MM3 Red Blood Count 2.35 MIL/MM3 Hemoglobin 7.4 GM/DL Hematocrit 21.6 % Mean Corpuscular Volume 92.0 FL Mean Corpuscular Hemoglobin 31.4 PG Mean Corpuscular Hemoglobin 34.2 % Concent Red Cell Distribution Width 16.0 % Platelet Count 18 TH/MM3 Mean Platelet Volume 8.1 FL Neutrophils (%) (Auto) % Lymphocytes (%) (Auto) % Monocytes (%) (Auto) % Eosinophils (%) (Auto) % Basophils (%) (Auto) % Neutrophils # (Auto) TH/MM3 Lymphocytes # (Auto) TH/MM3 Monocytes # (Auto) TH/MM3 Eosinophils # (Auto) TH/MM3 Basophils # (Auto) TH/MM3 CBC Comment AUTO DIFF Differential Total Cells 25 Counted Lymphocytes % 100 % Neutrophils # (Manual) 0.0 TH/MM3 Differential Comment FINAL DIFF MANUAL Platelet Estimate RARE Platelet Morphology Comment NORMAL Red Cell Morphology Comment NORMAL Sodium Level 142 MEQ/L Potassium Level 4.1 MEQ/L Chloride Level 108 MEQ/L Carbon Dioxide Level 27.4 MEQ/L Anion Gap 7 MEQ/L Blood Urea Nitrogen 17 MG/DL Creatinine 0.74 MG/DL Estimat Glomerular Filtration 80 ML/MIN Rate Random Glucose 98 MG/DL Calcium Level 8.6 MG/DL Blood Type O POSITIVE Antibody Screen NEGATIVE Crossmatch Leukocyte-Reduced Red Blood Cells Blood Bank Comment MDM Medical Decision Making Medical Screen Exam Complete: Yes Emergency Medical Condition: Yes Interpretation(s) Vital Signs Date Time Temp Pulse Resp B/P Pulse Ox O2 Delivery O2 Flow Rate FiO2 07/27/16 09:16 73 16 100 Room Air 07/27/16 09:12 98.0 72 14 132/62 99 Differential Diagnosis Anemia, neutropenia, thrombocytopenia, pancytopenia Narrative Course Patient is a 61 year old female who presents to ER for blood transfusion. She was sent to the emergency room by Dr. Arie Tripp for transfusion of 1 unit of packed red blood cells as well as 1 unit of platelets. Request that patient be discharged home after she has these blood transfusions. Patient will be seen in the clinic tomorrow and will have labs redrawn, if her hemoglobin is less than 8, she will require another unit of blood. If her weight rate is less than 20, then she will require transfusion of packed red blood cells Patient with no complaint at this time Irradiated blood and platelets ordered for patient. Diagnosis Primary Impression: Anemia Additional Impressions: Thrombocytopenia blood transfusion Patient Instructions: General Instructions Additional Instructions: Please follow-up with Dr. Arie Tripp tomorrow as scheduled Return to ER as needed Disposition: 01 DISCHARGE HOME Condition: Stable Kelly Devlin Jul 27, 2016 09:34
[2016-07-27 09:52] LABS: HEMATOCRIT 21.6 % (35.0-46.0); MEAN CORPUSCULAR HEMOGLOBIN 31.4 PG (27.0-34.0); MEAN CORPUSCULAR HGB CONC 34.2 % (32.0-36.0); RED BLOOD COUNT 2.35 MIL/MM3 (4.00-5.30); WHITE BLOOD COUNT 0.3 TH/MM3 (4.0-11.0)
[2016-07-27 09:55] LABS: HEMO FLAGS AUTO DIFF
[2016-07-27 10:02] LABS: BICARBONATE 27.4 MEQ/L (21.0-32.0); POTASSIUM 4.1 MEQ/L (3.5-5.1)
[2016-07-27 10:03] LABS: PLATELET COUNT 18 TH/MM3 (150-450)
[2016-07-27 10:22] LABS: PLATELET ESTIMATE SMEAR RARE (NORMAL); PLATELET MORPHOLOGY NORMAL (NORMAL); SCAN/DIFF FINAL DIFF MANUAL; WBC DIFF SAMPLE 25
[2016-07-27 12:13] VITALS: BP 123/58; PULSE 83; RESP 16; O2SAT 98
[2016-07-27 12:55] VITALS: BP 122/61; PULSE 68; RESP 16; TEMP 97.6; O2SAT 98
[2016-07-27 13:25] VITALS: BP 112/57; PULSE 63; RESP 16; TEMP 98.6; O2SAT 98
[2016-07-27] MEDS ORDERED: RESP: ALBUTEROL 2.5 MG/IPRATROPIUM 0.5 MG NEB (PRN) ONE (13:51)
[2016-07-27 14:30] VITALS: BP 135/60; PULSE 62; RESP 20; O2SAT 95
[2016-07-27 14:58] VITALS: BP 122/60; PULSE 62; RESP 18; TEMP 98.8; O2SAT 95
== END 2016-07-27 15:30 | disposition home or self-care (01) ==
LOC: NEPC 09:07
DX: D69.6 Thrombocytopenia, unspecified (principal); C92.Z0 Other myeloid leukemia not having achieved remission; D64.9 Anemia, unspecified; I10 Essential (primary) hypertension; Z79.02 Long term (current) use of antithrombotics/antiplatelets; Z79.899 Other long term (current) drug therapy
CPT/HCPCS: 36430; 80048; 85007; 85027; 86850; 86900; 86901; 86920; 96360; J7050; P9037; P9040

== ENCOUNTER 2016-07-30 11:29 | Inpatient (IN) | payer OTHER, MEDICARE ==
[~2016-07-30] VITALS: Ht 175.3 cm; Wt 74.6 kg
[2016-07-30 13:00] VITALS: BP 127/54; PULSE 80; RESP 18; TEMP 98.5; O2SAT 96
[2016-07-30 13:56] LABS: MEAN CORPUSCULAR HGB CONC 36.5 % (32.0-36.0)
--- NOTE | 2016-07-30 15:50 | RADRPT ---
EXAM DATE/TIME: 07/30/2016 14:12 [facility] COMPARISON: CHEST SINGLE AP, June 04, 2016, 21:23. CHEST PA & LAT, March 13, 2013, 20:16. INDICATIONS : Fever, pneumonia MEDICAL HISTORY : Leukemia. SURGICAL HISTORY : None. ENCOUNTER: Initial ACUITY: 1 day PAIN SCORE: 0/10 LOCATION: Bilateral chest FINDINGS: Increasing interstitial prominence is evident throughout both lungs. Heart and mediastinal structures are stable. Donaldson catheter is noted in place. CONCLUSION: Diffuse interstitial prominence which has developed since the previous study and is characteristic of interstitial pneumonitis. Technique catheter in stable position. Jonathan Walker MD on July 30, 2016 at 14:55 Board Certified Radiologist. This report was verified electronically.
[2016-07-30 15:56] LABS: HEMATOCRIT 21.4 % (35.0-46.0); MEAN CELL VOLUME 88.9 FL (80.0-100.0); MEAN CORPUSCULAR HEMOGLOBIN 32.5 PG (27.0-34.0); PLATELET COUNT 23 TH/MM3 (150-450); RED BLOOD COUNT 2.41 MIL/MM3 (4.00-5.30); RED CELL DISTRIBUTION WIDTH 14.9 % (11.6-17.2); WHITE BLOOD COUNT 0.6 TH/MM3 (4.0-11.0)
[2016-07-30 15:57] LABS: BICARBONATE 27.6 MEQ/L (21.0-32.0); POTASSIUM 3.8 MEQ/L (3.5-5.1)
[2016-07-30 16:00] LABS: HEMO FLAGS AUTO DIFF
[2016-07-30 17:06] LABS: BANDS 3 % (0-6); POLYS (SEG NEUTROPHILS) 1 % (16-70); SCAN/DIFF FINAL DIFF MANUAL; WBC DIFF SAMPLE 100
[2016-07-30 17:07] LABS: PLATELET ESTIMATE SMEAR RARE (NORMAL); PLATELET MORPHOLOGY NORMAL (NORMAL)
[2016-07-30] MEDS: CEFEPIME 2000 MG/NS 100 ML IV SCH ×4 (17:33→22:53)
[2016-07-30 19:00] VITALS: BP 138/60; PULSE 94; RESP 18; TEMP 99.9; O2SAT 97
[2016-07-30] MEDS: NYSTAT/DIPHENHY/LIDO MOUTHWASH (Adult) 120ML SWISH-SWAL PRN (19:26)
[2016-07-30] MEDS: FILGRASTIM 480 MCG/1.6 ML VIAL SQ SCH (19:33)
[2016-07-30] MEDS: PANTOPRAZOLE SOD 40 MG DELAYED RELEASE TAB PO SCH (19:34)
[2016-07-30 20:00] VITALS: BP 129/53; PULSE 85; RESP 17; TEMP 100.2; O2SAT 96
[2016-07-30] MEDS: FAMOTIDINE 20 MG TAB PO SCH (20:52)
[2016-07-30] MEDS ORDERED: CARISOPRODOL 350 MG TAB PO ONE (21:45)
[2016-07-30] MEDS ORDERED: GABAPENTIN 300 MG CAP PO ONE (22:00)
[2016-07-30] MEDS: ACETAMINOPHEN 325 MG TAB PO PRN (22:52)
[2016-07-30 23:29] LABS: BLOOD, URINE NEG (NEG); COMMENT (UR) CULT NOT INDICATED; CULTURE IF INDICATED CULT NOT INDICATED; GLUCOSE,URINE NEG (NEG); KETONE, URINE NEG (NEG); NITRITE,URINE NEG (NEG); PH, URINE 6.5 (5.0-8.5); SQUAMOUS EPITHELIAL CELL URINE <1 /hpf (0-5); URINE COLOR YELLOW (YELLW/STRAW)
[2016-07-31] VITALS (9 sets, daily range): BP systolic 108–143; BP diastolic 49–71; PULSE 72–93; RESP 16–20; TEMP 97.9–101.3; O2SAT 94–96
--- NOTE | 2016-07-31 00:26 | MH ---
cc: ABHAY HERRERA M.D. DATE OF ADMISSION: 07/30/2016 REASON FOR ADMISSION Neutropenic fever in a patient who just had consolidative chemotherapy for acute myeloid leukemia. HISTORY OF PRESENT ILLNESS Soniya is a pleasant 61 year-old female. She is a patient of Dr. Tripp who is out of [facility]. She was diagnosed with acute myeloid leukemia four months ago around [facility] when she presented with pancytopenia. Her chromosome study showed 7Q minus and FLT3 was negative. She underwent induction chemotherapy idarubicin and ABRIL-C on May 27, 2016. The patient had an excellent response with induction chemotherapy and she went into remission. The patient was readmitted on July 14 for the first cycle of consolidation chemotherapy with high-dose ABRIL-C. She has tolerated the treatment quite well. She was discharged to home. She was being managed outpatient in our oncology clinic in [place]. The patient was getting Neupogen every day as well as blood test three times a week. The patient had developed fever of 102 at home. She recently had a blood test yesterday which showed white count 0.4, hemoglobin 8.9, hematocrit 27.1, platelet count was 34. She had profound neutropenia. She was advised to come to [facility] oncology floor for direct admit. The patient has been complaining of sore throat. She is complaining of cough. She is complaining of weakness, tiredness and fatigue. She is complaining of muscle pain, joint pains and headaches. She denies any dysuria or diarrhea. The rest of review of systems is negative. PAST MEDICAL HISTORY 1. Hypothyroidism 2. Peripheral neuropathy 3. Anxiety disorder 4. Chronic back pain for which she has a pain pump. 5. Gastroesophageal reflux disease 6. Recently diagnosed with acute myeloid leukemia. PAST SURGICAL HISTORY 1. Donaldson catheter. 2. Pain pump placement. 3. Rotator cuff surgery 4. Neck surgery 5. Back surgery 6. hemorrhoidectomy. ALLERGIES None MEDICATIONS 1. Levothyroxine. 2. Soma. 3. Lasix. 4. Gabapentin. 5. Protonix. 6. Zantac 7. Potassium 8. Valium 9. Pain pump. FAMILY HISTORY Father from lung cancer. Mother from asthma. The patient has six siblings and three children, all alive and well. SOCIAL HISTORY The patient does not smoke cigarettes, does not drink alcohol. PHYSICAL EXAMINATION: The patient is a well-developed, well-nourished white female in no apparent distress. Vital signs: Temperature 99.9, heart rate is 94, blood pressure 138/60, O2 saturation 97% on room air. HEENT: Pupils equal, round, reactive to light and accommodation, extraocular movements intact. Neck: No cervical, supraclavicular, axillary lymphadenopathy noted. Lungs: Clear. No wheezing, rhonchi or rales. Heart: Regular rate and rhythm. Abdomen is soft, nontender. No hepatosplenomegaly. Extremities: No pedal edema. Neurology: Awake, alert, oriented times threes. Skin: No significant lesions are noted. ASSESSMENT 1. Neutropenic fever. 2. Acute myeloid leukemia status post one cycle of consolidative chemotherapy with high-dose ABRIL-C. 3. Anxiety disorder. 4. Peripheral neuropathy. 5. Gastroesophageal reflux disease. PLAN: The patient is admitted to the hospital. We will initiate fever protocol with blood cultures, urine culture, chest x-ray. We will start her on cefepime antibiotic 2 grams IV q8. Will monitor her CBC. Her CBC today showed white count 0.6, hemoglobin 7.85, hematocrit 21.4, platelet count is 23. Will give her two units of blood transfusion today. We will keep her hemoglobin more than 8. Will also keep her platelet count more than 15. Her absolute neutrophil count is 0. Since she is profoundly neutropenic, I will also add Diflucan. If she spikes fever again then we will add vancomycin. Will give her Tylenol to bring down the temperature. I will continue her home medications.which are Valium, neurontin, synthroid, Soma, pepcid, Protonix, oxycodone. We will continue Neupogen as well. Case discuss with RN. Further recommendations based on her hospital stay. MD SAMARIA Cornell/MAURO /11:07 PM /11:59 PM AMPARO
[2016-07-31] MEDS: FLUCONAZOLE 200 MG TAB PO SCH ×2 (00:39→08:27)
[2016-07-31] MEDS: CEFEPIME 2000 MG/NS 100 ML IV SCH ×6 (06:14→21:05)
[2016-07-31] MEDS: CARISOPRODOL 350 MG TAB PO SCH ×3 (06:14→21:04)
[2016-07-31] MEDS: LEVOTHYROXINE SODIUM 25 MCG TAB PO SCH (06:14)
[2016-07-31] MEDS: FAMOTIDINE 20 MG TAB PO SCH ×2 (08:26→21:04)
[2016-07-31] MEDS: PANTOPRAZOLE SOD 40 MG DELAYED RELEASE TAB PO SCH (08:27)
[2016-07-31] MEDS: GABAPENTIN 300 MG CAP PO SCH ×3 (08:27→17:29)
[2016-07-31] MEDS: ACETAMINOPHEN 325 MG TAB PO PRN ×2 (08:31→21:22)
[2016-07-31 08:36] LABS: MEAN CELL VOLUME 87.3 FL (80.0-100.0); MEAN CORPUSCULAR HEMOGLOBIN 31.3 PG (27.0-34.0); MEAN CORPUSCULAR HGB CONC 35.9 % (32.0-36.0); RED CELL DISTRIBUTION WIDTH 15.8 % (11.6-17.2); WHITE BLOOD COUNT 0.5 TH/MM3 (4.0-11.0)
[2016-07-31 08:40] LABS: HEMO FLAGS AUTO DIFF
[2016-07-31 08:41] LABS: BICARBONATE 24.8 MEQ/L (21.0-32.0); POTASSIUM 3.9 MEQ/L (3.5-5.1)
[2016-07-31 08:47] LABS: PLATELET COUNT 18 TH/MM3 (150-450)
[2016-07-31 10:00] LABS: BANDS 27 % (0-6); EOSINOPHILS 1 % (0-4); NEUTROPHIL # MANUAL DIFF 0.2 TH/MM3 (1.8-7.7); POLYS (SEG NEUTROPHILS) 6 % (16-70); WBC DIFF SAMPLE 100
[2016-07-31 10:01] LABS: DOHLE BODIES PRESENT (NONE SEEN); OVALOCYTES 1+ (NORMAL); PLATELET ESTIMATE SMEAR RARE (NORMAL); PLATELET MORPHOLOGY NORMAL (NORMAL); SCAN/DIFF FINAL DIFF MANUAL
[2016-07-31] MEDS: VANCOMYCIN INJ 1,000 MG in SODIUM CHLOR 0.9% 250 ML INJ 250 ML IV SCH (12:33)
[2016-07-31] MEDS: NYSTAT/DIPHENHY/LIDO MOUTHWASH (Adult) 120ML SWISH-SWAL PRN ×2 (12:33→17:29)
[2016-07-31] MEDS: FILGRASTIM 480 MCG/1.6 ML VIAL SQ SCH (14:39)
[2016-07-31 15:22] LABS: AUTOMATED NEUTROPHIL # 0.3 TH/MM3 (1.8-7.7); BASOPHIL % 0.6 % (0.0-2.0); EOSINOPHIL % 0.3 % (0.0-4.0); HEMATOCRIT 29.4 % (35.0-46.0); LYMPH % 57.2 % (9.0-44.0); LYMPHOCYTE # 0.4 TH/MM3 (1.0-4.8); MEAN CELL VOLUME 88.9 FL (80.0-100.0); MEAN CORPUSCULAR HEMOGLOBIN 29.5 PG (27.0-34.0); MEAN CORPUSCULAR HGB CONC 33.2 % (32.0-36.0); MONO % 2.4 % (0.0-8.0); NEUT % 39.5 % (16.0-70.0); PLATELET COUNT 22 TH/MM3 (150-450); RED BLOOD COUNT 3.31 MIL/MM3 (4.00-5.30); RED CELL DISTRIBUTION WIDTH 15.7 % (11.6-17.2); WHITE BLOOD COUNT 0.7 TH/MM3 (4.0-11.0)
[2016-07-31 15:29] LABS: HEMO FLAGS AUTO DIFF
[2016-07-31 16:32] LABS: BANDS 14 % (0-6); POLYS (SEG NEUTROPHILS) 22 % (16-70); WBC DIFF SAMPLE 100
[2016-07-31 16:33] LABS: NEUTROPHIL # MANUAL DIFF 0.3 TH/MM3 (1.8-7.7)
[2016-07-31 16:34] LABS: DOHLE BODIES PRESENT (NONE SEEN); OVALOCYTES 1+ (NORMAL); PLATELET ESTIMATE SMEAR RARE (NORMAL); PLATELET MORPHOLOGY NORMAL (NORMAL); SCAN/DIFF FINAL DIFF MANUAL
--- NOTE | 2016-07-31 18:49 | PD.ONC.PN ---
Subjective Subjective Remarks c/o fever with chills Objective Data Date Time Temp Pulse Resp B/P Pulse Ox O2 Delivery O2 Flow Rate FiO2 07/31/16 16:00 99.2 80 18 139/71 95 07/31/16 12:00 98.2 78 18 131/53 96 07/31/16 10:21 99.7 07/31/16 07:00 101.3 93 20 139/50 96 07/31/16 04:53 16 07/31/16 04:00 97.9 72 17 113/59 94 07/31/16 03:51 97.9 72 16 113/53 94 07/31/16 01:20 98.2 81 17 108/49 95 07/31/16 00:39 98.9 93 17 114/54 95 07/30/16 23:33 16 07/30/16 20:00 100.2 85 17 129/53 96 07/30/16 19:00 99.9 94 18 138/60 97 07/31/16 07/31/16 07/31/16 07:00 15:00 23:00 Intake Total 480 ml 300 ml Balance 480 ml 300 ml Result Diagram: 07/31/16 1430 07/31/16 0800 Laboratory Results Laboratory Tests Test 07/30/16 07/31/16 07/31/16 20:50 08:00 14:30 Blood Type O POSITIVE Antibody Screen NEGATIVE Crossmatch Irradiated/Leukocyte-Reduced RBC Blood Bank Comment White Blood Count 0.5 TH/MM3 0.7 TH/MM3 Red Blood Count 3.20 MIL/MM3 3.31 MIL/MM3 Hemoglobin 10.0 GM/DL 9.8 GM/DL Hematocrit 28.0 % 29.4 % Mean Corpuscular Volume 87.3 FL 88.9 FL Mean Corpuscular Hemoglobin 31.3 PG 29.5 PG Mean Corpuscular Hemoglobin 35.9 % 33.2 % Concent Red Cell Distribution Width 15.8 % 15.7 % Platelet Count 18 TH/MM3 22 TH/MM3 Mean Platelet Volume 7.9 FL 8.2 FL Neutrophils (%) (Auto) % 39.5 % Lymphocytes (%) (Auto) % 57.2 % Monocytes (%) (Auto) % 2.4 % Eosinophils (%) (Auto) % 0.3 % Basophils (%) (Auto) % 0.6 % Neutrophils # (Auto) TH/MM3 0.3 TH/MM3 Lymphocytes # (Auto) TH/MM3 0.4 TH/MM3 Monocytes # (Auto) TH/MM3 0.0 TH/MM3 Eosinophils # (Auto) TH/MM3 0.0 TH/MM3 Basophils # (Auto) TH/MM3 0.0 TH/MM3 CBC Comment AUTO DIFF AUTO DIFF Differential Total Cells 100 100 Counted Neutrophils % (Manual) 6 % 22 % Band Neutrophils % 27 % 14 % Lymphocytes % 65 % 60 % Monocytes % 1 % 4 % Eosinophils % 1 % Neutrophils # (Manual) 0.2 TH/MM3 0.3 TH/MM3 Differential Comment FINAL DIFF FINAL DIFF MANUAL MANUAL Dohle Bodies PRESENT PRESENT Platelet Estimate RARE RARE Platelet Morphology Comment NORMAL NORMAL Ovalocytes 1+ 1+ Sodium Level 140 MEQ/L Potassium Level 3.9 MEQ/L Chloride Level 107 MEQ/L Carbon Dioxide Level 24.8 MEQ/L Anion Gap 8 MEQ/L Blood Urea Nitrogen 11 MG/DL Creatinine 0.70 MG/DL Estimat Glomerular Filtration 85 ML/MIN Rate Random Glucose 107 MG/DL Calcium Level 8.5 MG/DL Culture Results Microbiology Date/Time Procedure Status Source Growth 07/30/16 14:53 Aerobic Blood Culture - Preliminary Resulted Blood Line NO GROWTH IN 1 DAY 07/30/16 14:53 Anaerobic Blood Culture - Preliminary Resulted Blood Line NO GROWTH IN 1 DAY 07/30/16 14:56 Aerobic Blood Culture - Preliminary Resulted Blood Line NO GROWTH IN 1 DAY 07/30/16 14:56 Anaerobic Blood Culture - Preliminary Resulted Blood Line NO GROWTH IN 1 DAY 07/30/16 16:02 Aerobic Blood Culture - Preliminary Resulted Blood Peripheral NO GROWTH IN 1 DAY 07/30/16 16:02 Anaerobic Blood Culture - Preliminary Resulted Blood Peripheral NO GROWTH IN 1 DAY Administered Medications Medications (Trade) Dose Ordered Sig/Prashant Route PRN Reason Start Time Stop Time Status Last Admin Dose Admin Oxycodone HCl (Roxicodone) 10 mg Q4H PRN PO PAIN 6-10 07/30/16 17:30 07/31/16 17:30 Multi-Ingredient Mouthwash/Gargle (Magic Mouthwash Adult Liq) 5 ml QID PRN SWISH-SWAL SORE THROAT 07/30/16 17:30 07/31/16 17:29 Filgrastim (Neupogen Inj) 480 mcg DAILY@14 SQ 07/30/16 18:00 07/31/16 14:39 Levothyroxine Sodium (Synthroid) 25 mcg DAILY@0600 PO 07/31/16 06:00 07/31/16 06:14 Famotidine (Pepcid) 20 mg BID PO 07/30/16 21:00 07/31/16 08:26 Carisoprodol (Soma) 350 mg Q8H PO 07/31/16 06:00 07/31/16 14:39 Gabapentin (Neurontin) 300 mg TID PO 07/31/16 09:00 07/31/16 17:29 Pantoprazole Sodium (Protonix) 40 mg DAILY PO 07/30/16 18:15 07/31/16 08:27 Acetaminophen (Tylenol) 650 mg Q8H PRN PO FEVER 07/30/16 22:00 07/31/16 08:31 Fluconazole 200 mg 200 mg DAILY PO 07/30/16 23:15 07/31/16 08:27 Vancomycin HCl 1000 mg/Sodium Chloride 250 ml @ 250 mls/hr Q12H IV 07/31/16 12:00 07/31/16 12:33 Cefepime HCl/ Sodium Chloride (Maxipime Inj/NS Inj) 100 ml @ 200 mls/hr Q8H IV 07/31/16 15:00 07/31/16 14:50 Objective Remarks GENERAL: well-developed patient. SKIN: Warm and dry. HEAD: Normocephalic. EYES: No scleral icterus. No injection or drainage. NECK: Supple, trachea midline. No JVD or lymphadenopathy. LYMPHATIC: No adenopathy. CARDIOVASCULAR: Regular rate and rhythm without murmurs. RESPIRATORY: Breath sounds equal bilaterally. No accessory muscle use. GASTROINTESTINAL: Abdomen soft, non-tender, nondistended. EXTREMITIES: No cyanosis, or edema. NEUROLOGICAL: No obvious focal deficit. Awake, alert, and oriented x3. PSYCHIATRIC: Appropriate mood and affect; insight and judgment normal. Assessment/Plan Problem List: (1) Pancytopenia Status: Acute Plan: Due to chemo No Tx today. continue Neupogen monitor cbc (2) Neutropenic fever Status: Acute Plan: BC are neg so far Continue cefepime and diflucan add vanco because of persistant fever. (3) AML (acute myeloid leukemia) Status: Acute Plan: s/p first consolidation chemo. Sorathia,Jaimee J. MD Jul 31, 2016 18:49
[2016-07-31] MEDS: DIAZEPAM 10 MG TAB PO SCH (21:04)
[2016-08-01] VITALS: BP 118/59; PULSE 70; RESP 17; TEMP 96.5; O2SAT 95
[2016-08-01] MEDS: VANCOMYCIN INJ 1,000 MG in SODIUM CHLOR 0.9% 250 ML INJ 250 ML IV SCH ×3 (00:31→23:36)
[2016-08-01] MEDS: NYSTAT/DIPHENHY/LIDO MOUTHWASH (Adult) 120ML SWISH-SWAL PRN ×3 (00:43→19:52)
[2016-08-01 04:00] VITALS: BP 140/57; PULSE 71; RESP 18; TEMP 97.6; O2SAT 100
[2016-08-01] MEDS: CARISOPRODOL 350 MG TAB PO SCH ×3 (04:50→22:21)
[2016-08-01] MEDS: LEVOTHYROXINE SODIUM 25 MCG TAB PO SCH (04:50)
[2016-08-01 06:53] LABS: AUTOMATED NEUTROPHIL # 0.8 TH/MM3 (1.8-7.7); BASOPHIL % 0.3 % (0.0-2.0); EOSINOPHIL % 0.2 % (0.0-4.0); HEMATOCRIT 29.3 % (35.0-46.0); LYMPH % 41.7 % (9.0-44.0); LYMPHOCYTE # 0.6 TH/MM3 (1.0-4.8); MEAN CELL VOLUME 88.3 FL (80.0-100.0); MEAN CORPUSCULAR HEMOGLOBIN 29.8 PG (27.0-34.0); MEAN CORPUSCULAR HGB CONC 33.8 % (32.0-36.0); NEUT % 55.8 % (16.0-70.0); PLATELET COUNT 26 TH/MM3 (150-450); RED BLOOD COUNT 3.32 MIL/MM3 (4.00-5.30); RED CELL DISTRIBUTION WIDTH 15.4 % (11.6-17.2); WHITE BLOOD COUNT 1.4 TH/MM3 (4.0-11.0)
[2016-08-01 06:56] LABS: HEMO FLAGS AUTO DIFF
[2016-08-01] MEDS: CEFEPIME 2000 MG/NS 100 ML IV SCH ×6 (07:00→22:23)
[2016-08-01 08:00] VITALS: BP 116/59; PULSE 78; RESP 18; TEMP 98.7; O2SAT 99
[2016-08-01 08:13] LABS: BANDS 39 % (0-6); METAMYELOCYTES 1 % (0-1); NEUTROPHIL # MANUAL DIFF 0.8 TH/MM3 (1.8-7.7); POLYS (SEG NEUTROPHILS) 16 % (16-70); WBC DIFF SAMPLE 100
[2016-08-01 08:14] LABS: DOHLE BODIES PRESENT (NONE SEEN); PLATELET ESTIMATE SMEAR LOW (NORMAL); PLATELET MORPHOLOGY NORMAL (NORMAL); SCAN/DIFF FINAL DIFF MANUAL; TOXIC VACUOLATION PRESENT (NONE SEEN)
[2016-08-01] MEDS: PANTOPRAZOLE SOD 40 MG DELAYED RELEASE TAB PO SCH (09:10)
[2016-08-01] MEDS: GABAPENTIN 300 MG CAP PO SCH ×3 (09:10→18:21)
[2016-08-01] MEDS: FLUCONAZOLE 200 MG TAB PO SCH (09:10)
[2016-08-01] MEDS: FAMOTIDINE 20 MG TAB PO SCH ×2 (09:10→19:49)
--- NOTE | 2016-08-01 09:58 | PD.ONC.PN ---
Subjective Subjective Remarks Afebrile overnight. "I'm feeling 100 times better." Patient reports sore throat improved, and overall malaise improved. Objective Data Date Time Temp Pulse Resp B/P Pulse Ox O2 Delivery O2 Flow Rate FiO2 08/01/16 08:00 98.7 78 18 116/59 99 08/01/16 06:39 16 08/01/16 06:38 16 08/01/16 04:00 97.6 71 18 140/57 100 08/01/16 00:00 96.5 70 17 118/59 95 07/31/16 20:00 99.8 82 17 143/66 94 07/31/16 16:00 99.2 80 18 139/71 95 07/31/16 12:00 98.2 78 18 131/53 96 07/31/16 10:21 99.7 Result Diagram: 08/01/16 0456 07/31/16 0800 Laboratory Results Laboratory Tests Test 07/31/16 08/01/16 14:30 04:56 White Blood Count 0.7 TH/MM3 1.4 TH/MM3 Red Blood Count 3.31 MIL/MM3 3.32 MIL/MM3 Hemoglobin 9.8 GM/DL 9.9 GM/DL Hematocrit 29.4 % 29.3 % Mean Corpuscular Volume 88.9 FL 88.3 FL Mean Corpuscular Hemoglobin 29.5 PG 29.8 PG Mean Corpuscular Hemoglobin 33.2 % 33.8 % Concent Red Cell Distribution Width 15.7 % 15.4 % Platelet Count 22 TH/MM3 26 TH/MM3 Mean Platelet Volume 8.2 FL 8.7 FL Neutrophils (%) (Auto) 39.5 % 55.8 % Lymphocytes (%) (Auto) 57.2 % 41.7 % Monocytes (%) (Auto) 2.4 % 2.0 % Eosinophils (%) (Auto) 0.3 % 0.2 % Basophils (%) (Auto) 0.6 % 0.3 % Neutrophils # (Auto) 0.3 TH/MM3 0.8 TH/MM3 Lymphocytes # (Auto) 0.4 TH/MM3 0.6 TH/MM3 Monocytes # (Auto) 0.0 TH/MM3 0.0 TH/MM3 Eosinophils # (Auto) 0.0 TH/MM3 0.0 TH/MM3 Basophils # (Auto) 0.0 TH/MM3 0.0 TH/MM3 CBC Comment AUTO DIFF AUTO DIFF Differential Total Cells 100 100 Counted Neutrophils % (Manual) 22 % 16 % Band Neutrophils % 14 % 39 % Lymphocytes % 60 % 42 % Monocytes % 4 % 2 % Neutrophils # (Manual) 0.3 TH/MM3 0.8 TH/MM3 Differential Comment FINAL DIFF FINAL DIFF MANUAL MANUAL Dohle Bodies PRESENT PRESENT Platelet Estimate RARE LOW Platelet Morphology Comment NORMAL NORMAL Ovalocytes 1+ Metamyelocytes 1 % Toxic Vacuolation PRESENT Red Cell Morphology Comment NORMAL Culture Results Microbiology Date/Time Procedure Status Source Growth 07/30/16 14:53 Aerobic Blood Culture - Preliminary Resulted Blood Line NO GROWTH IN 1 DAY 07/30/16 14:53 Anaerobic Blood Culture - Preliminary Resulted Blood Line NO GROWTH IN 1 DAY 07/30/16 14:56 Aerobic Blood Culture - Preliminary Resulted Blood Line NO GROWTH IN 1 DAY 07/30/16 14:56 Anaerobic Blood Culture - Preliminary Resulted Blood Line NO GROWTH IN 1 DAY 07/30/16 16:02 Aerobic Blood Culture - Preliminary Resulted Blood Peripheral NO GROWTH IN 1 DAY 07/30/16 16:02 Anaerobic Blood Culture - Preliminary Resulted Blood Peripheral NO GROWTH IN 1 DAY Administered Medications Medications (Trade) Dose Ordered Sig/Prashant Route PRN Reason Start Time Stop Time Status Last Admin Dose Admin Oxycodone HCl (Roxicodone) 10 mg Q4H PRN PO PAIN 6-10 07/30/16 17:30 08/01/16 09:17 Multi-Ingredient Mouthwash/Gargle (Magic Mouthwash Adult Liq) 5 ml QID PRN SWISH-SWAL SORE THROAT 07/30/16 17:30 08/01/16 00:43 Filgrastim (Neupogen Inj) 480 mcg DAILY@14 SQ 07/30/16 18:00 07/31/16 14:39 Levothyroxine Sodium (Synthroid) 25 mcg DAILY@0600 PO 07/31/16 06:00 08/01/16 04:50 Famotidine (Pepcid) 20 mg BID PO 07/30/16 21:00 08/01/16 09:10 Carisoprodol (Soma) 350 mg Q8H PO 07/31/16 06:00 08/01/16 04:50 Gabapentin (Neurontin) 300 mg TID PO 07/31/16 09:00 08/01/16 09:10 Pantoprazole Sodium (Protonix) 40 mg DAILY PO 07/30/16 18:15 08/01/16 09:10 Diazepam (Valium) 10 mg HS PO 07/31/16 21:00 07/31/16 21:04 Acetaminophen (Tylenol) 650 mg Q8H PRN PO FEVER 07/30/16 22:00 07/31/16 21:22 Fluconazole 200 mg 200 mg DAILY PO 07/30/16 23:15 08/01/16 09:10 Vancomycin HCl 1000 mg/Sodium Chloride 250 ml @ 250 mls/hr Q12H IV 07/31/16 12:00 08/01/16 00:31 Cefepime HCl/ Sodium Chloride (Maxipime Inj/NS Inj) 100 ml @ 200 mls/hr Q8H IV 07/31/16 15:00 08/01/16 07:00 Objective Remarks General: Pleasant middle aged female, sitting up in bed reading Skin: no rash Head: +alopecia Neck: trachea midline CV: RRR Lungs: clear to auscultation all lung bautista Extremities: without cyanosis or edema. Neuro: awake and alert, normal speech, moving extremities. Assessment/Plan Problem List: (1) Pancytopenia Status: Acute Plan: 08/01/16: counts continuing to recover. no transfusion needed today --chemotherapy induced --continue Neupogen until recovery (2) Neutropenic fever Status: Acute Plan: 08/01/16: BC no growth. continue antibiotics. Continue cefepime and diflucan + Vanco (3) AML (acute myeloid leukemia) Status: Acute Plan: s/p first consolidation chemo. Attending Statement sore throat has resolved. no fevers feels better. Blood counts are improving. The exam, history, and the medical decision-making described in the above note were completed with the assistance of the mid-level provider. I reviewed and agree with the findings presented. I attest that I had a [id number] encounter with the patient on the same day, and personally performed and documented my assessment and findings in the medical record. Problem Qualifiers (1) AML (acute myeloid leukemia): Qualified Code: C92.01 - Acute myeloid leukemia in remission Radha Lawrence Aug 01, 2016 09:58 Vu Silver MD Aug 01, 2016 19:01
[2016-08-01 12:00] VITALS: BP 117/56; PULSE 79; RESP 20; TEMP 98.4; O2SAT 95
[2016-08-01] MEDS: FILGRASTIM 480 MCG/1.6 ML VIAL SQ SCH (13:08)
[2016-08-01 16:00] VITALS: BP 108/53; PULSE 73; RESP 18; TEMP 98.2; O2SAT 95
[2016-08-01 19:47] VITALS: BP 125/61; PULSE 77; RESP 18; TEMP 98; O2SAT 97
[2016-08-01] MEDS: DIAZEPAM 10 MG TAB PO SCH (19:49)
[2016-08-02] VITALS: BP 123/56; PULSE 80; RESP 18; TEMP 97.4; O2SAT 93
[2016-08-02 04:00] VITALS: BP 118/55; PULSE 83; RESP 19; TEMP 97.2; O2SAT 98
[2016-08-02] MEDS: CEFEPIME 2000 MG/NS 100 ML IV SCH ×2 (05:16)
[2016-08-02] MEDS: CARISOPRODOL 350 MG TAB PO SCH ×3 (05:16→20:19)
[2016-08-02] MEDS: LEVOTHYROXINE SODIUM 25 MCG TAB PO SCH (05:16)
[2016-08-02 05:39] LABS: HEMATOCRIT 27.9 % (35.0-46.0); MEAN CORPUSCULAR HEMOGLOBIN 30.2 PG (27.0-34.0); MEAN CORPUSCULAR HGB CONC 34.3 % (32.0-36.0); PLATELET COUNT 52 TH/MM3 (150-450); RED BLOOD COUNT 3.17 MIL/MM3 (4.00-5.30); RED CELL DISTRIBUTION WIDTH 15.7 % (11.6-17.2)
[2016-08-02 06:37] LABS: HEMO FLAGS AUTO DIFF
[2016-08-02 07:27] LABS: BANDS 27 % (0-6); METAMYELOCYTES 8 % (0-1); MYELOCYTES 7 % (0-0); NEUTROPHIL # MANUAL DIFF 2.6 TH/MM3 (1.8-7.7); POLYS (SEG NEUTROPHILS) 24 % (16-70); WBC DIFF SAMPLE 100
[2016-08-02 07:28] LABS: OVALOCYTES 1+ (NORMAL); PLATELET ESTIMATE SMEAR LOW (NORMAL); PLATELET MORPHOLOGY NORMAL (NORMAL)
[2016-08-02 07:29] LABS: SCAN/DIFF FINAL DIFF MANUAL
[2016-08-02 08:00] VITALS: BP 117/55; PULSE 78; RESP 18; TEMP 97.8; O2SAT 93
[2016-08-02] MEDS: FAMOTIDINE 20 MG TAB PO SCH ×2 (08:53→20:18)
[2016-08-02] MEDS: FLUCONAZOLE 200 MG TAB PO SCH (08:53)
[2016-08-02] MEDS: PANTOPRAZOLE SOD 40 MG DELAYED RELEASE TAB PO SCH (08:53)
[2016-08-02] MEDS: GABAPENTIN 300 MG CAP PO SCH ×3 (08:53→17:17)
--- NOTE | 2016-08-02 10:54 | PD.ONC.PN ---
Subjective Subjective Remarks Afebrile overnight. Patient feeling well today. She does have some constipation. No nausea. No abdominal pain. Sore throat improved. Objective Data Date Time Temp Pulse Resp B/P Pulse Ox O2 Delivery O2 Flow Rate FiO2 08/02/16 08:00 97.8 78 18 117/55 93 08/02/16 04:00 97.2 83 19 118/55 98 08/02/16 00:00 97.4 80 18 123/56 93 08/01/16 19:47 98.0 77 18 125/61 97 08/01/16 16:00 98.2 73 18 108/53 95 08/01/16 12:00 98.4 79 20 117/56 95 Result Diagram: 08/02/16 0521 07/31/16 0800 Laboratory Results Laboratory Tests Test 08/02/16 05:21 White Blood Count 4.0 TH/MM3 Red Blood Count 3.17 MIL/MM3 Hemoglobin 9.6 GM/DL Hematocrit 27.9 % Mean Corpuscular Volume 88.0 FL Mean Corpuscular Hemoglobin 30.2 PG Mean Corpuscular Hemoglobin 34.3 % Concent Red Cell Distribution Width 15.7 % Platelet Count 52 TH/MM3 Mean Platelet Volume 8.2 FL Neutrophils (%) (Auto) % Lymphocytes (%) (Auto) % Monocytes (%) (Auto) % Eosinophils (%) (Auto) % Basophils (%) (Auto) % Neutrophils # (Auto) TH/MM3 Lymphocytes # (Auto) TH/MM3 Monocytes # (Auto) TH/MM3 Eosinophils # (Auto) TH/MM3 Basophils # (Auto) TH/MM3 CBC Comment AUTO DIFF Differential Total Cells 100 Counted Neutrophils % (Manual) 24 % Band Neutrophils % 27 % Lymphocytes % 33 % Monocytes % 1 % Neutrophils # (Manual) 2.6 TH/MM3 Metamyelocytes 8 % Myelocytes 7 % Differential Comment FINAL DIFF MANUAL Platelet Estimate LOW Platelet Morphology Comment NORMAL Ovalocytes 1+ Culture Results Microbiology Date/Time Procedure Status Source Growth 07/30/16 14:53 Aerobic Blood Culture - Preliminary Resulted Blood Line NO GROWTH IN 2 DAYS 07/30/16 14:53 Anaerobic Blood Culture - Preliminary Resulted Blood Line NO GROWTH IN 2 DAYS 07/30/16 14:56 Aerobic Blood Culture - Preliminary Resulted Blood Line NO GROWTH IN 2 DAYS 07/30/16 14:56 Anaerobic Blood Culture - Preliminary Resulted Blood Line NO GROWTH IN 2 DAYS 07/30/16 16:02 Aerobic Blood Culture - Preliminary Resulted Blood Peripheral NO GROWTH IN 2 DAYS 07/30/16 16:02 Anaerobic Blood Culture - Preliminary Resulted Blood Peripheral NO GROWTH IN 2 DAYS Administered Medications Medications (Trade) Dose Ordered Sig/Prashant Route PRN Reason Start Time Stop Time Status Last Admin Dose Admin Oxycodone HCl (Roxicodone) 10 mg Q4H PRN PO PAIN 6-10 07/30/16 17:30 08/02/16 08:55 Multi-Ingredient Mouthwash/Gargle (Magic Mouthwash Adult Liq) 5 ml QID PRN SWISH-SWAL SORE THROAT 07/30/16 17:30 08/01/16 19:52 Levothyroxine Sodium (Synthroid) 25 mcg DAILY@0600 PO 07/31/16 06:00 08/02/16 05:16 Famotidine (Pepcid) 20 mg BID PO 07/30/16 21:00 08/02/16 08:53 Carisoprodol (Soma) 350 mg Q8H PO 07/31/16 06:00 08/02/16 05:16 Gabapentin (Neurontin) 300 mg TID PO 07/31/16 09:00 08/02/16 08:53 Pantoprazole Sodium (Protonix) 40 mg DAILY PO 07/30/16 18:15 08/02/16 08:53 Diazepam (Valium) 10 mg HS PO 07/31/16 21:00 08/01/16 19:49 Acetaminophen (Tylenol) 650 mg Q8H PRN PO FEVER 07/30/16 22:00 07/31/16 21:22 Fluconazole 200 mg 200 mg DAILY PO 07/30/16 23:15 08/02/16 08:53 Vancomycin HCl 1000 mg/Sodium Chloride 250 ml @ 250 mls/hr Q12H IV 07/31/16 12:00 08/01/16 23:36 Cefepime HCl/ Sodium Chloride (Maxipime Inj/NS Inj) 100 ml @ 200 mls/hr Q8H IV 07/31/16 15:00 08/02/16 05:16 Objective Remarks GENERAL: Middle aged female, sitting up in bed in [facility] [place]. SKIN: Warm and dry. HEAD: Normocephalic. EYES: No injection or drainage. NECK: Supple, trachea midline. CARDIOVASCULAR: Regular rate and rhythm RESPIRATORY: diminished at bases, anterior bautista clear. GASTROINTESTINAL: Abdomen soft, non-tender, nondistended. EXTREMITIES: No cyanosis. NEUROLOGICAL: awake and alert, normal speech. moving all extremities. Assessment/Plan Problem List: (1) Pancytopenia Status: Acute Plan: 08/02/16: d/c neutropenic precautions. plan for d/c tomorrow --chemotherapy induced --continue Neupogen until recovery (2) Neutropenic fever Status: Acute Plan: 08/02/16: BC no growth x 3 days. stop IV abx. start Levaquin (3) AML (acute myeloid leukemia) Status: Acute Plan: s/p first consolidation chemo. Attending Statement no more fevers Feels much better. afebrile. Not neutropenic neupogen today IF ANC > 3,500 tomorrow then d/c to home. She has appt on 08/11 at [facility] for B[facility]. She will call Dr cook on thursday for appt and labs. The exam, history, and the medical decision-making described in the above note were completed with the assistance of the mid-level provider. I reviewed and agree with the findings presented. I attest that I had a [id number] encounter with the patient on the same day, and personally performed and documented my assessment and findings in the medical record. Problem Qualifiers (1) AML (acute myeloid leukemia): Qualified Code: C92.01 - Acute myeloid leukemia in remission Radha Lawrence Aug 02, 2016 10:54 uV Silver MD Aug 02, 2016 18:35
[2016-08-02] MEDS ORDERED: POLYETHYLENE GLYCOL 17 GM PKG PO PRN (11:00)
[2016-08-02] MEDS ORDERED: LEVOFLOXACIN 500 MG TAB PO SCH (12:00)
[2016-08-02] MEDS: DOCUSATE SODIUM 100 MG CAP PO SCH ×2 (12:15→17:17)
[2016-08-02] MEDS ORDERED: DIAZ10 PO (15:17)
[2016-08-02 16:00] VITALS: BP 116/65; PULSE 95; RESP 16; TEMP 97.9; O2SAT 96
[2016-08-02] MEDS ORDERED: FILGRASTIM 480 MCG/1.6 ML VIAL SQ ONE (16:00)
[2016-08-02 20:00] VITALS: BP 115/55; PULSE 88; RESP 17; TEMP 96.7; O2SAT 95
[2016-08-02] MEDS: DIAZEPAM 10 MG TAB PO SCH (20:18)
[2016-08-02] MEDS: ACETAMINOPHEN 325 MG TAB PO PRN (23:34)
[2016-08-03] VITALS: BP 122/70; PULSE 83; RESP 16; TEMP 97.2; O2SAT 94
[2016-08-03 04:00] VITALS: BP 98/61; PULSE 82; RESP 17; TEMP 96.2; O2SAT 93
[2016-08-03] MEDS: CARISOPRODOL 350 MG TAB PO SCH (05:14)
[2016-08-03] MEDS: LEVOTHYROXINE SODIUM 25 MCG TAB PO SCH (05:14)
[2016-08-03 07:25] LABS: HEMATOCRIT 29.9 % (35.0-46.0); MEAN CELL VOLUME 87.9 FL (80.0-100.0); MEAN CORPUSCULAR HEMOGLOBIN 29.7 PG (27.0-34.0); MEAN CORPUSCULAR HGB CONC 33.8 % (32.0-36.0); PLATELET COUNT 102 TH/MM3 (150-450); RED BLOOD COUNT 3.41 MIL/MM3 (4.00-5.30); RED CELL DISTRIBUTION WIDTH 15.9 % (11.6-17.2); WHITE BLOOD COUNT 9.6 TH/MM3 (4.0-11.0)
[2016-08-03 07:29] LABS: HEMO FLAGS AUTO DIFF
[2016-08-03 08:00] VITALS: BP 106/52; PULSE 85; RESP 18; TEMP 96.8; O2SAT 93
[2016-08-03] MEDS: FLUCONAZOLE 200 MG TAB PO SCH (08:08)
[2016-08-03] MEDS: DOCUSATE SODIUM 100 MG CAP PO SCH (08:08)
[2016-08-03] MEDS: PANTOPRAZOLE SOD 40 MG DELAYED RELEASE TAB PO SCH (08:09)
[2016-08-03] MEDS: FAMOTIDINE 20 MG TAB PO SCH (08:09)
[2016-08-03] MEDS: GABAPENTIN 300 MG CAP PO SCH (08:10)
[2016-08-03] MEDS ORDERED: LEVA500T PO (08:23)
--- NOTE | 2016-08-03 08:42 | PD.ONC.PN ---
Subjective Subjective Remarks Afebrile overnight. Patient resting comfortably. She is eager to go home. Objective Data Date Time Temp Pulse Resp B/P Pulse Ox O2 Delivery O2 Flow Rate FiO2 08/03/16 08:00 96.8 85 18 106/52 93 08/03/16 04:00 96.2 82 17 98/61 93 08/03/16 00:00 97.2 83 16 122/70 94 08/02/16 20:00 96.7 88 17 115/55 95 08/02/16 16:00 97.9 95 16 116/65 96 Result Diagram: 08/03/16 0520 07/31/16 0800 Laboratory Results Laboratory Tests Test 08/03/16 05:20 White Blood Count 9.6 TH/MM3 Red Blood Count 3.41 MIL/MM3 Hemoglobin 10.1 GM/DL Hematocrit 29.9 % Mean Corpuscular Volume 87.9 FL Mean Corpuscular Hemoglobin 29.7 PG Mean Corpuscular Hemoglobin 33.8 % Concent Red Cell Distribution Width 15.9 % Platelet Count 102 TH/MM3 Mean Platelet Volume 8.7 FL Neutrophils (%) (Auto) % Lymphocytes (%) (Auto) % Monocytes (%) (Auto) % Eosinophils (%) (Auto) % Basophils (%) (Auto) % Neutrophils # (Auto) TH/MM3 Lymphocytes # (Auto) TH/MM3 Monocytes # (Auto) TH/MM3 Eosinophils # (Auto) TH/MM3 Basophils # (Auto) TH/MM3 CBC Comment AUTO DIFF Administered Medications Medications (Trade) Dose Ordered Sig/Prashant Route PRN Reason Start Time Stop Time Status Last Admin Dose Admin Oxycodone HCl (Roxicodone) 10 mg Q4H PRN PO PAIN 6-10 07/30/16 17:30 08/03/16 08:09 Multi-Ingredient Mouthwash/Gargle (Magic Mouthwash Adult Liq) 5 ml QID PRN SWISH-SWAL SORE THROAT 07/30/16 17:30 08/01/16 19:52 Levothyroxine Sodium (Synthroid) 25 mcg DAILY@0600 PO 07/31/16 06:00 08/03/16 05:14 Famotidine (Pepcid) 20 mg BID PO 07/30/16 21:00 08/03/16 08:09 Carisoprodol (Soma) 350 mg Q8H PO 07/31/16 06:00 08/03/16 05:14 Gabapentin (Neurontin) 300 mg TID PO 07/31/16 09:00 08/03/16 08:10 Pantoprazole Sodium (Protonix) 40 mg DAILY PO 07/30/16 18:15 08/03/16 08:09 Diazepam (Valium) 10 mg HS PO 07/31/16 21:00 08/02/16 20:18 Acetaminophen (Tylenol) 650 mg Q8H PRN PO FEVER 07/30/16 22:00 08/02/16 23:34 Fluconazole (Diflucan) 200 mg DAILY PO 07/30/16 23:15 08/03/16 08:08 Levofloxacin (Levaquin) 500 mg Q24H PO 08/02/16 12:00 08/02/16 12:16 Docusate Sodium (Colace) 100 mg TID PO 08/02/16 13:00 08/03/16 08:08 Objective Remarks GENERAL: Pleasant middle aged female, sitting up in bed in [place] SKIN: Warm and dry. +alopecia HEAD: Normocephalic. EYES: No injection or drainage. NECK: Supple, trachea midline. CARDIOVASCULAR: Regular rate and rhythm RESPIRATORY: Breath sounds equal bilaterally. No accessory muscle use. GASTROINTESTINAL: Abdomen soft, non-tender, nondistended. EXTREMITIES: No cyanosis NEUROLOGICAL: No obvious focal deficit. Awake, alert, and oriented x3. Assessment/Plan Problem List: (1) Pancytopenia Status: Acute Plan: 08/03/16: counts recovered, d/c home today --chemotherapy induced --continue Neupogen until recovery (2) Neutropenic fever Status: Acute Plan: 08/03/16: d/c home on 5 days of Levaquin. follow up in clinic. (3) AML (acute myeloid leukemia) Status: Acute Plan: s/p first consolidation chemo. appointment at [facility] on 08/11/16 Problem Qualifiers (1) AML (acute myeloid leukemia): Qualified Code: C92.01 - Acute myeloid leukemia in remission Radha Lawrence Aug 03, 2016 08:42 Vu Silver MD Aug 03, 2016 17:06
--- NOTE | 2016-08-03 08:42 | HHI.DCPOC ---
Discharge Care Plan Diagnosis: (1) AML (acute myeloid leukemia) (2) Neutropenic fever (3) Pancytopenia Goals to Promote Your Health * To prevent worsening of your condition and complications * To maintain your health at the optimal level Directions to Meet Your Goals Take your medications as prescribed Follow your dietary instruction Follow activity as directed Keep your appointments as scheduled Take your immunizations and boosters as scheduled If your symptoms worsen call your PCP, if no PCP go to Urgent Care Center or Emergency Room Smoking is Dangerous to Your Health. Avoid second hand smoke Call the 24-hour hour crisis hotline for domestic abuse at Radha Lawrence Aug 03, 2016 08:42 Vu Silver MD Aug 03, 2016 17:06
[2016-08-03 08:43] LABS: BANDS 22 % (0-6); MYELOCYTES 2 % (0-0); NEUTROPHIL # MANUAL DIFF 7.1 TH/MM3 (1.8-7.7); PLATELET ESTIMATE SMEAR LOW (NORMAL); PLATELET MORPHOLOGY NORMAL (NORMAL); POLYS (SEG NEUTROPHILS) 50 % (16-70); SCAN/DIFF FINAL DIFF MANUAL; TOXIC GRANULATION 1+ (NORMAL); WBC DIFF SAMPLE 100
[2016-08-03 08:44] LABS: ROULEAUX PRESENT (NORMAL)
--- NOTE | 2016-08-03 08:47 | HHI.DS ---
Radha Lawrence 08/03/16 0847: Discharge Summary Admission Date Jul 30, 2016 at 12:02 Discharge Date: Aug 03, 2016 Admitting Diagnosis Neutropenic fever, AML (1) AML (acute myeloid leukemia) Diagnosis: Principal (2) Neutropenic fever Diagnosis: Principal Brief History Ms. Chawla is a 61 y/o female with a diagnosis of acute myelogenous leukemia. She is in complete remission after induction chemotherapy and is s/p round 1 of consolidation chemotherapy. She was admitted for neutropenic fever. CBC/BMP: 08/03/16 0520 07/31/16 0800 Significant Findings Laboratory Tests Test 07/31/16 08/01/16 08/02/16 08/03/16 14:30 04:56 05:21 05:20 White Blood Count 0.7 TH/MM3 1.4 TH/MM3 (4.0-11.0) (4.0-11.0) Red Blood Count 3.31 MIL/MM3 3.32 MIL/MM3 3.17 MIL/MM3 3.41 MIL/MM3 (4.00-5.30) (4.00-5.30) (4.00-5.30) (4.00-5.30) Hemoglobin 9.8 GM/DL 9.9 GM/DL 9.6 GM/DL 10.1 GM/DL (11.6-15.3) (11.6-15.3) (11.6-15.3) (11.6-15.3) Hematocrit 29.4 % 29.3 % 27.9 % 29.9 % (35.0-46.0) (35.0-46.0) (35.0-46.0) (35.0-46.0) Platelet Count 22 TH/MM3 26 TH/MM3 52 TH/MM3 102 TH/MM3 (150-450) (150-450) (150-450) (150-450) Lymphocytes (%) (Auto) 57.2 % (9.0-44.0) Neutrophils # (Auto) 0.3 TH/MM3 0.8 TH/MM3 (1.8-7.7) (1.8-7.7) Lymphocytes # (Auto) 0.4 TH/MM3 0.6 TH/MM3 (1.0-4.8) (1.0-4.8) Band Neutrophils % 14 % (0-6) 39 % (0-6) 27 % (0-6) Lymphocytes % 60 % (9-44) Neutrophils # (Manual) 0.3 TH/MM3 0.8 TH/MM3 (1.8-7.7) (1.8-7.7) Dohle Bodies PRESENT (NONE PRESENT (NONE SEEN) SEEN) Platelet Estimate RARE (NORMAL) LOW (NORMAL) LOW (NORMAL) Ovalocytes 1+ (NORMAL) 1+ (NORMAL) Toxic Vacuolation PRESENT (NONE SEEN) Metamyelocytes 8 % (0-1) Myelocytes 7 % (0-0) Imaging Last Impressions Chest X-Ray 07/30/16 0000 Signed Impressions: Service Date/Time: Saturday, July 30, 2016 14:12 - CONCLUSION: Diffuse interstitial prominence which has developed since the previous study and is characteristic of interstitial pneumonitis. Technique catheter in stable position. Jonathan Walker MD PE at Discharge please see physical exam from progress note on date of discharge Hospital Course Ms. Chawla was admitted on 07/30/16 for neutropenic fever. Blood cultures were drawn and cefepime was started. Routine chest x-ray and urinalysis were also obtained. Her home medications were resumed. Neupogen was started and CBC was drawn daily. During her hospitalizations she was given 2 units of pRBC's. During the course of her hospitalization, her fevers defervesced and her blood cultures showed no growth. On 08/02/16 she was transitioned to oral antibiotics. She was discharged in stable condition on 08/03/16. Pt Condition on Discharge: Good Discharge Disposition: Discharge Home Discharge Instructions DIET: Follow Instructions for: As Tolerated, No Restrictions Activities you can perform: Regular-No Restrictions Vu Silver MD 08/03/16 1706: Discharge Summary CBC/BMP: 08/03/16 0520 07/31/16 0800 Radha Lawrence Aug 03, 2016 08:47 Vu Silver MD Aug 03, 2016 17:06
== END 2016-08-03 09:59 | disposition home or self-care (01) | DRG 809 ==
LOC: HOCB 12:02
PROVIDERS: ADMIT Internal Medicine Hematology & Oncology; ATTEND Internal Medicine Hematology & Oncology
PROC: 30243N1 Transfusion of Nonautologous Red Blood Cells into Central Vein, Percutaneous Approach (ICD-10-PCS; principal; 2016-07-31)
DX: D61.818 Other pancytopenia (principal); C92.01 Acute myeloblastic leukemia, in remission; G62.9 Polyneuropathy, unspecified; R50.81 Fever presenting with conditions classified elsewhere; E03.9 Hypothyroidism, unspecified; F41.9 Anxiety disorder, unspecified; M54.9 Dorsalgia, unspecified; G89.29 Other chronic pain; K21.9 Gastro-esophageal reflux disease without esophagitis; Z96.89 Presence of other specified functional implants; Z92.21 Personal history of antineoplastic chemotherapy; T45.1X5A Adverse effect of antineoplastic and immunosuppressive drugs, initial encounter; K59.00 Constipation, unspecified; J02.9 Acute pharyngitis, unspecified
CPT/HCPCS: 36430; 36591; 71020; 80048; 81001; 85007; 85027; 86850; 86900; 86901; 86920; 87040; 96360; 96372; J0692; J1442; J1642; J3370; J7050; P9037; P9040

== ENCOUNTER 2016-08-08 15:37 | Inpatient (IN) | payer OTHER, MEDICARE ==
[~2016-08-08] VITALS: Ht 175.3 cm; Wt 72.1 kg
[~2016-08-08 15:37] MED LIST changes: +DIAZ10 PO; +LEVA500T PO
[2016-08-12 07:45] VITALS: BP 98/46; PULSE 76; RESP 16; TEMP 96.2; O2SAT 98
[2016-08-12] MEDS ORDERED: SODIUM CHLORIDE 0.9% FLUSH 10 ML FLUSH IVF PRN (08:00)
[2016-08-12] MEDS ORDERED: ALTEPLASE RECOMBINANT 2 MG VIAL IVF PRN (08:00)
[2016-08-12] MEDS: SODIUM CHLORIDE 0.9% FLUSH 10 ML FLUSH IVF SCH (09:00)
[2016-08-12 10:03] LABS: AUTOMATED NEUTROPHIL # 2.7 TH/MM3 (1.8-7.7); BASOPHIL # 0.2 TH/MM3 (0-0.2); BASOPHIL % 3.6 % (0.0-2.0); HEMATOCRIT 28.9 % (35.0-46.0); HEMO FLAGS DIFF FINAL; LYMPH % 17.6 % (9.0-44.0); LYMPHOCYTE # 0.9 TH/MM3 (1.0-4.8); MEAN CELL VOLUME 88.7 FL (80.0-100.0); MEAN CORPUSCULAR HEMOGLOBIN 30.7 PG (27.0-34.0); MEAN CORPUSCULAR HGB CONC 34.7 % (32.0-36.0); MONO % 26.3 % (0.0-8.0); NEUT % 52.5 % (16.0-70.0); PLATELET COUNT 507 TH/MM3 (150-450); RED BLOOD COUNT 3.26 MIL/MM3 (4.00-5.30); RED CELL DISTRIBUTION WIDTH 15.9 % (11.6-17.2); WHITE BLOOD COUNT 5.2 TH/MM3 (4.0-11.0)
[2016-08-12 10:17] LABS: ALT (GPT) 14 U/L (10-53); ANION GAP 8 MEQ/L (5-15); AST (GOT) 13 U/L (15-37); BICARBONATE 26.2 MEQ/L (21.0-32.0); BLOOD UREA NITROGEN 10 MG/DL (7-18); CHLORIDE 112 MEQ/L (98-107); GLOMERULAR FILTRATION RATE 126 ML/MIN (>89); POTASSIUM 3.3 MEQ/L (3.5-5.1); SODIUM (NA) 146 MEQ/L (136-145)
[2016-08-12 10:19] LABS: ALKALINE PHOSPHATASE 61 U/L (45-117); TOTAL BILIRUBIN ADULT 0.1 MG/DL (0.2-1.0)
[2016-08-12] MEDS ORDERED: DIAZEPAM 10 MG TAB PO PRN (10:45)
[2016-08-12] MEDS ORDERED: D5-1/2 NS + KCL 10 MEQ INJ 1,000 ML IV SCH (10:45)
[2016-08-12] MEDS: POTASSIUM CHLORIDE 20 MEQ CONTROLLED RELEASE TAB PO SCH (11:41)
[2016-08-12] MEDS: CARISOPRODOL 350 MG TAB PO PRN ×2 (11:41→21:11)
[2016-08-12] MEDS: GABAPENTIN 300 MG CAP PO SCH ×2 (11:44→16:50)
[2016-08-12] MEDS: MAGNESIUM HYDROXIDE SUSP 30 ML CUP PO PRN (11:48)
[2016-08-12 12:00] VITALS: BP 110/55; PULSE 71; RESP 12; TEMP 96.9; O2SAT 97
[2016-08-12] MEDS ORDERED: DEXAMETHASONE INJ 20 MG, GRANISETRON INJ 1 MG in SODIUM CHLORIDE 0.9% INJ 50 ML IV SCH (14:30)
[2016-08-12] MEDS: DEXAMETHASONE SOD PHOS 0.1% OPHT SOLN 5 ML BTL EACH EYE SCH ×3 (14:36→19:51)
[2016-08-12] MEDS: SODIUM CHLOR 0.9% IV SCH (15:11)
[2016-08-12] MEDS: CYTARABINE IV SCH (15:11)
[2016-08-12 16:00] VITALS: BP 101/54; PULSE 62; RESP 12; TEMP 98; O2SAT 96
[2016-08-12] MEDS: ENOXAPARIN SODIUM 40 MG/0.4 ML SYRINGE SQ SCH (16:50)
--- NOTE | 2016-08-12 17:23 | MH ---
cc: VIANCA BOND M.D. 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 Bone marrow biopsy at that time showed acute myelogenous leukemia with 41% blasts. 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 Lumbar puncture and CSF analysis did not show leukemia involvement. She received induction idarubicin, Albina-C in May of 2016. Repeat bone marrow biopsy June 13, showed 0.8% myeloblasts consistent with good response. She received the first cycle of consolidation Albina-C July 14, 2016 and she tolerated it relatively well. She did require transfusion support. She was admitted for neutropenic fever for a few days. Her blood count has now recovered. She is admitted for cycle two of consolidation chemotherapy. She still has generalized fatigue. She denies any fever or chills. Denies any mouth soreness. She still has intermittent headache. Denies any visual change, no chest pain, palpitations, shortness of breath or cough. She has chronic back pain. Denies dysuria, hematuria, rash, pruritus. PAST MEDICAL HISTORY 1. Acute myelogenous leukemia as above. 2. Chronic back pain. 3. Anxiety. 4. Hypothyroidism. 5. Peripheral neuropathy. 6. Gastroesophageal reflux disease. 7. Hemorrhoids. PAST SURGICAL HISTORY: 1. Hemorrhoidectomy 2. Back and neck surgery. 3. Rotator cuff surgery. 4. Pain pump placement. 5. Donaldson catheter placement. 6. Bone marrow biopsy. FAMILY HISTORY: Father of lung cancer. Mother had asthma. She has six siblings, all relatively healthy. She had three children, also healthy. SOCIAL HISTORY: Denies tobacco, alcohol use. ALLERGIES: NO KNOWN DRUG ALLERGIES. OUTPATIENT MEDICATIONS: 1. Levothyroxine. 2. Acyclovir. 3. Soma. 4. Lasix. 5. Gabapentin. 6. Protonix REVIEW OF SYSTEMS Constitutional: Denies any fever, chills, night sweats, weight loss. Eyes: Denies any blurred vision, double vision. ENT: No mouth sores, voice changes. Cardiovascular: No chest pressure, palpitations. Respiratory: No shortness of breath or cough. GI: Denies nausea, vomiting, abdominal pain. : Denies dysuria, hematuria. Musculoskeletal: Chronic back pain as above. Hematology: As above. Endocrine: Negative. Dermatology: Negative. Psychiatric: She has anxiety. Neurologic: She has intermittent headache. PHYSICAL EXAMINATION Vitals: Temperature 96.2, blood pressure 98/46, O2 saturation 98% room air. General: She is alert and oriented x3 in no acute distress. HEENT: Atraumatic, normocephalic. Pupils equal, round and reactive to light. Extraocular muscles intact. No sclera icterus. Oropharynx: Moist mucosa, no lesion, no thrush. No mucositis. NECK: No thyromegaly. No palpable mass. Lymphatics: No palpable, cervical, clavicular, axillary lymphadenopathy. CARDIOVASCULAR: Regular S1-S2. No murmurs. LUNGS: Clear to auscultation without wheezing. ABDOMEN: Soft, nontender. Could not palpate liver or spleen. The right chest has Donaldson catheter site. No erythema. There is a pain pump noted in the right lower abdomen. EXTREMITIES: No cyanosis, clubbing, or edema. No calf tenderness. BACK: She has chronic low back pain. SKIN: No rash or petechiae. NEUROLOGIC: Nonfocal. LABORATORY DATA: Reviewed. ASSESSMENT: 1. Acute myelogenous leukemia, currently in remission. She was diagnosed in April of 2016 and bone marrow biopsy at that time showed 41% myeloblasts. 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 CSF analysis did not show any leukemic involvement. She completed induction idarubicin, Albina-C in May of 2016. Bone marrow biopsy on June 13 showed 0.8% myeloblasts consistent with a good response to treatment. She had completed one cycle of consolidation Albina-C. She developed neutropenic fever requiring hospital admission for a few days. Her blood count has recovered. She is admitted for cycle two of high-dose Albina-C. She went to [facility] [place] last week and she was recommend to have consolidation bone marrow transplant. They are currently doing HLA typing of her siblings. She will proceed with consolidation bone marrow biopsy if she has a matched donor. 2. Chronic back pain. She had pain pump refilled recently. The pain is controlled. 3. Hypothyroidism, stable. 4. Peripheral neuropathy. She is on gabapentin. 5. Anxiety, stable. PLAN: Proceed with cycle two of high-dose Albina-C per protocol. Monitor labs. MD DANIELLE Bailey/MAURO /4:54 PM /10:27 AM AMPARO
[2016-08-12 20:00] VITALS: BP 117/57; PULSE 69; RESP 16; TEMP 97; O2SAT 91
[2016-08-12] MEDS: FAMOTIDINE 20 MG TAB PO SCH (21:10)
[2016-08-13] VITALS (7 sets, daily range): BP systolic 93–152; BP diastolic 52–87; PULSE 76–126; RESP 16–20; TEMP 96.6–98.3; O2SAT 91–98
[2016-08-13] MEDS: CYTARABINE IV SCH (03:15)
[2016-08-13] MEDS: SODIUM CHLOR 0.9% IV SCH (03:15)
[2016-08-13] MEDS: LEVOTHYROXINE SODIUM 25 MCG TAB PO SCH (05:15)
[2016-08-13] MEDS: CARISOPRODOL 350 MG TAB PO PRN ×2 (05:16→17:47)
[2016-08-13 05:37] LABS: AUTOMATED NEUTROPHIL # 9.2 TH/MM3 (1.8-7.7); BASOPHIL % 0.4 % (0.0-2.0); HEMATOCRIT 30.2 % (35.0-46.0); HEMO FLAGS DIFF FINAL; LYMPH % 2.7 % (9.0-44.0); LYMPHOCYTE # 0.3 TH/MM3 (1.0-4.8); MEAN CELL VOLUME 90.3 FL (80.0-100.0); MEAN CORPUSCULAR HEMOGLOBIN 31.3 PG (27.0-34.0); MEAN CORPUSCULAR HGB CONC 34.6 % (32.0-36.0); MONO % 3.7 % (0.0-8.0); NEUT % 93.2 % (16.0-70.0); PLATELET COUNT 554 TH/MM3 (150-450); RED BLOOD COUNT 3.35 MIL/MM3 (4.00-5.30); WHITE BLOOD COUNT 9.9 TH/MM3 (4.0-11.0)
[2016-08-13 05:38] LABS: ALKALINE PHOSPHATASE 67 U/L (45-117); ALT (GPT) 28 U/L (10-53); ANION GAP 8 MEQ/L (5-15); AST (GOT) 25 U/L (15-37); BICARBONATE 27.4 MEQ/L (21.0-32.0); BLOOD UREA NITROGEN 13 MG/DL (7-18); CHLORIDE 105 MEQ/L (98-107); GLOMERULAR FILTRATION RATE 96 ML/MIN (>89); MAGNESIUM 2.2 MG/DL (1.5-2.5); POTASSIUM 4.3 MEQ/L (3.5-5.1); SODIUM (NA) 140 MEQ/L (136-145); TOTAL BILIRUBIN ADULT 0.3 MG/DL (0.2-1.0)
--- NOTE | 2016-08-13 07:54 | PD.ONC.PN ---
Subjective Subjective Remarks Tolerating day #1 of chemotx well. No N/V/abdominal pain. +low back pain overnight. Improved with oxycodone. Objective Data Date Time Temp Pulse Resp B/P Pulse Ox O2 Delivery O2 Flow Rate FiO2 08/13/16 04:37 96.7 76 16 115/56 94 08/13/16 01:30 97 08/13/16 00:00 96.6 91 16 118/62 91 08/12/16 20:00 97.0 69 16 117/57 91 08/12/16 16:00 98.0 62 12 101/54 96 08/12/16 12:00 96.9 71 12 110/55 97 Result Diagram: 08/13/16 0320 08/13/16 032 Laboratory Results Laboratory Tests Test 08/12/16 08/13/16 09:30 03:20 White Blood Count 5.2 TH/MM3 9.9 TH/MM3 Red Blood Count 3.26 MIL/MM3 3.35 MIL/MM3 Hemoglobin 10.0 GM/DL 10.5 GM/DL Hematocrit 28.9 % 30.2 % Mean Corpuscular Volume 88.7 FL 90.3 FL Mean Corpuscular Hemoglobin 30.7 PG 31.3 PG Mean Corpuscular Hemoglobin 34.7 % 34.6 % Concent Red Cell Distribution Width 15.9 % 16.0 % Platelet Count 507 TH/MM3 554 TH/MM3 Mean Platelet Volume 7.6 FL 7.5 FL Neutrophils (%) (Auto) 52.5 % 93.2 % Lymphocytes (%) (Auto) 17.6 % 2.7 % Monocytes (%) (Auto) 26.3 % 3.7 % Eosinophils (%) (Auto) 0.0 % 0.0 % Basophils (%) (Auto) 3.6 % 0.4 % Neutrophils # (Auto) 2.7 TH/MM3 9.2 TH/MM3 Lymphocytes # (Auto) 0.9 TH/MM3 0.3 TH/MM3 Monocytes # (Auto) 1.4 TH/MM3 0.4 TH/MM3 Eosinophils # (Auto) 0.0 TH/MM3 0.0 TH/MM3 Basophils # (Auto) 0.2 TH/MM3 0.0 TH/MM3 CBC Comment DIFF FINAL DIFF FINAL Differential Comment Sodium Level 146 MEQ/L 140 MEQ/L Potassium Level 3.3 MEQ/L 4.3 MEQ/L Chloride Level 112 MEQ/L 105 MEQ/L Carbon Dioxide Level 26.2 MEQ/L 27.4 MEQ/L Anion Gap 8 MEQ/L 8 MEQ/L Blood Urea Nitrogen 10 MG/DL 13 MG/DL Creatinine 0.50 MG/DL 0.63 MG/DL Estimat Glomerular Filtration 126 ML/MIN 96 ML/MIN Rate Random Glucose 92 MG/DL 130 MG/DL Calcium Level 7.5 MG/DL 9.2 MG/DL Total Bilirubin 0.1 MG/DL 0.3 MG/DL Aspartate Amino Transf 13 U/L 25 U/L (AST/SGOT) Alanine Aminotransferase 14 U/L 28 U/L (ALT/SGPT) Alkaline Phosphatase 61 U/L 67 U/L Total Protein 5.5 GM/DL 6.6 GM/DL Albumin 2.6 GM/DL 2.9 GM/DL Phosphorus Level 3.8 MG/DL Magnesium Level 2.2 MG/DL Administered Medications Medications (Trade) Dose Ordered Sig/Prashant Route PRN Reason Start Time Stop Time Status Last Admin Dose Admin Magnesium Hydroxide (Milk Of Billy Liangelique) 15 ml DAILY PRN PO CONSTIPATION 08/12/16 08:00 08/12/16 11:48 Sodium Chloride (NS Flush) DAILY IVF 08/12/16 09:00 08/12/16 09:00 Heparin Sodium (Porcine) (Heparin Central Flush) DAILY IVF 08/12/16 09:00 08/12/16 11:40 Gabapentin (Neurontin) 300 mg TID PO 08/12/16 13:00 08/12/16 16:50 Diazepam (Valium) 10 mg Q8HR PRN PO anxiety 08/12/16 10:45 08/12/16 21:10 Carisoprodol (Soma) 350 mg Q8H PRN PO muscle spasm 08/12/16 10:45 08/13/16 05:16 Famotidine (Pepcid) 20 mg Q12HR PO 08/12/16 21:00 08/12/16 21:10 Levothyroxine Sodium (Synthroid) 25 mcg DAILY@0600 PO 08/13/16 06:00 08/13/16 05:15 Potassium Chloride (KCl) 20 meq DAILY PO 08/12/16 10:45 08/12/16 11:41 Dexamethasone Sodium Phosphate (Decadron Opth 0.1% Soln) 2 drop QID EACH EYE 08/12/16 13:00 08/19/16 09:01 08/12/16 19:51 Enoxaparin Sodium (Lovenox Inj) 40 mg Q24H SQ 08/12/16 16:00 08/12/16 16:50 Oxycodone HCl (Roxicodone) 10 mg Q4H PRN PO PAIN 6-10 08/13/16 04:45 08/13/16 04:35 Objective Remarks GENERAL: Well-nourished, well-developed patient. SKIN: Warm and dry. Donaldson cath site no erythema. HEAD: Normocephalic. EYES: No scleral icterus. No injection or drainage. NECK: Supple, trachea midline. No JVD or lymphadenopathy. LYMPHATIC: No adenopathy. CARDIOVASCULAR: Regular rate and rhythm without murmurs. RESPIRATORY: Breath sounds equal bilaterally. No accessory muscle use. GASTROINTESTINAL: Abdomen soft, non-tender, nondistended. EXTREMITIES: No cyanosis, or edema. MUSCULOSKELETAL: Adequate muscle tone. NEUROLOGICAL: No obvious focal deficit. Awake, alert, and oriented x3. PSYCHIATRIC: Appropriate mood and affect; insight and judgment normal. Assessment/Plan Assessment 1. Acute myelogenous leukemia, currently in remission. She was diagnosed in April of 2016 and bone marrow biopsy at that time showed 41% myeloblasts. 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 CSF analysis did not show any leukemic involvement. She completed induction idarubicin, Albina-C in May of 2016. Bone marrow biopsy on June 13 showed 0.8% myeloblasts consistent with a good response to treatment. She had completed one cycle of consolidation Albina-C. She developed neutropenic fever requiring hospital admission for a few days. Her blood count has recovered. She is admitted for cycle two of high-dose Albina-C. She went to [facility] [place] last week and she is a candidate for consolidation bone marrow transplant. They are currently doing HLA typing of her siblings. She will proceed with consolidation bone marrow transplant if she has a matched donor. --08/13/16 Will complete Day#1 of HIDAC this am. Tolerating well. 2. Chronic back pain. She had pain pump refilled recently. The pain is controlled. Continue oxycodone prn. 3. Hypothyroidism, stable. 4. Peripheral neuropathy. Continue gabapentin. 5. Anxiety, stable. Plan PLAN: Continue cycle two of high-dose Albina-C per protocol. Monitor labs. Titrate pain meds. Ryan Tripp MD Aug 13, 2016 07:54
[2016-08-13] MEDS: FUROSEMIDE 20 MG TAB PO SCH (09:06)
[2016-08-13] MEDS: POTASSIUM CHLORIDE 20 MEQ CONTROLLED RELEASE TAB PO SCH (09:06)
[2016-08-13] MEDS: FAMOTIDINE 20 MG TAB PO SCH ×2 (09:06→20:59)
[2016-08-13] MEDS: PANTOPRAZOLE SOD 20 MG DELAYED RELEASE TAB PO SCH (09:06)
[2016-08-13] MEDS: GABAPENTIN 300 MG CAP PO SCH ×3 (09:06→17:43)
[2016-08-13] MEDS: SODIUM CHLORIDE 0.9% FLUSH 10 ML FLUSH IVF SCH (09:07)
[2016-08-13] MEDS: DEXAMETHASONE SOD PHOS 0.1% OPHT SOLN 5 ML BTL EACH EYE SCH ×4 (09:07→20:57)
[2016-08-13] MEDS: ACETAMINOPHEN 325 MG TAB PO PRN ×2 (12:51→22:20)
[2016-08-13] MEDS: ENOXAPARIN SODIUM 40 MG/0.4 ML SYRINGE SQ SCH (17:43)
[2016-08-13] MEDS: MAGNESIUM HYDROXIDE SUSP 30 ML CUP PO PRN (20:57)
[2016-08-14] VITALS (7 sets, daily range): BP systolic 105–138; BP diastolic 54–60; PULSE 81–96; RESP 16–20; TEMP 97.1–99.6; O2SAT 91–97
[2016-08-14] MEDS: CARISOPRODOL 350 MG TAB PO PRN ×2 (01:45→21:35)
[2016-08-14] MEDS: LEVOTHYROXINE SODIUM 25 MCG TAB PO SCH (05:08)
[2016-08-14 05:53] LABS: AUTOMATED NEUTROPHIL # 3.6 TH/MM3 (1.8-7.7); BASOPHIL # 0.1 TH/MM3 (0-0.2); BASOPHIL % 1.7 % (0.0-2.0); EOSINOPHIL % 0.1 % (0.0-4.0); HEMATOCRIT 28.1 % (35.0-46.0); HEMO FLAGS DIFF FINAL; LYMPH % 8.3 % (9.0-44.0); LYMPHOCYTE # 0.3 TH/MM3 (1.0-4.8); MEAN CELL VOLUME 89.3 FL (80.0-100.0); MEAN CORPUSCULAR HEMOGLOBIN 30.5 PG (27.0-34.0); MEAN CORPUSCULAR HGB CONC 34.2 % (32.0-36.0); MONO % 2.6 % (0.0-8.0); NEUT % 87.3 % (16.0-70.0); PLATELET COUNT 484 TH/MM3 (150-450); RED BLOOD COUNT 3.15 MIL/MM3 (4.00-5.30); RED CELL DISTRIBUTION WIDTH 16.4 % (11.6-17.2); WHITE BLOOD COUNT 4.2 TH/MM3 (4.0-11.0)
[2016-08-14 06:14] LABS: ALT (GPT) 32 U/L (10-53); ANION GAP 4 MEQ/L (5-15); AST (GOT) 20 U/L (15-37); BICARBONATE 30.6 MEQ/L (21.0-32.0); BLOOD UREA NITROGEN 15 MG/DL (7-18); CHLORIDE 106 MEQ/L (98-107); GLOMERULAR FILTRATION RATE 84 ML/MIN (>89); SODIUM (NA) 141 MEQ/L (136-145)
[2016-08-14 06:16] LABS: ALKALINE PHOSPHATASE 60 U/L (45-117); TOTAL BILIRUBIN ADULT 0.3 MG/DL (0.2-1.0)
[2016-08-14] MEDS: PANTOPRAZOLE SOD 20 MG DELAYED RELEASE TAB PO SCH (08:10)
[2016-08-14] MEDS: FUROSEMIDE 20 MG TAB PO SCH (08:10)
[2016-08-14] MEDS: POTASSIUM CHLORIDE 20 MEQ CONTROLLED RELEASE TAB PO SCH (08:10)
[2016-08-14] MEDS: DEXAMETHASONE SOD PHOS 0.1% OPHT SOLN 5 ML BTL EACH EYE SCH ×4 (08:10→21:36)
[2016-08-14] MEDS: FAMOTIDINE 20 MG TAB PO SCH ×2 (08:10→21:35)
[2016-08-14] MEDS: GABAPENTIN 300 MG CAP PO SCH ×3 (08:10→16:28)
[2016-08-14] MEDS: SODIUM CHLORIDE 0.9% FLUSH 10 ML FLUSH IVF SCH (08:11)
[2016-08-14] MEDS ORDERED: DEXAMETHASONE INJ 20 MG, GRANISETRON INJ 1 MG in SODIUM CHLORIDE 0.9% INJ 50 ML IV ONE (09:00)
[2016-08-14] MEDS: MAGNESIUM HYDROXIDE SUSP 30 ML CUP PO PRN (12:15)
--- NOTE | 2016-08-14 15:07 | PD.ONC.PN ---
Subjective Subjective Remarks Tmax 99.6 overnight. The patient was on walking the halls. She is in good spirits. She is looking forward to going to [facility] in a few weeks. Objective Data Date Time Temp Pulse Resp B/P Pulse Ox O2 Delivery O2 Flow Rate FiO2 08/14/16 12:00 99.1 96 18 138/60 94 08/14/16 08:15 98.6 08/14/16 08:00 98.6 81 20 123/56 95 08/14/16 04:00 97.1 84 16 111/56 94 08/14/16 00:00 99.6 84 16 114/59 97 08/13/16 20:00 98.3 90 18 118/57 96 08/13/16 16:00 96.9 89 20 93/52 94 08/14/16 08/14/16 08/14/16 07:00 15:00 23:00 Intake Total 240 ml 1200 ml Balance 240 ml 1200 ml Result Diagram: 08/14/16 0455 08/14/16 0455 Laboratory Results Laboratory Tests Test 08/14/16 04:55 White Blood Count 4.2 TH/MM3 Red Blood Count 3.15 MIL/MM3 Hemoglobin 9.6 GM/DL Hematocrit 28.1 % Mean Corpuscular Volume 89.3 FL Mean Corpuscular Hemoglobin 30.5 PG Mean Corpuscular Hemoglobin 34.2 % Concent Red Cell Distribution Width 16.4 % Platelet Count 484 TH/MM3 Mean Platelet Volume 7.1 FL Neutrophils (%) (Auto) 87.3 % Lymphocytes (%) (Auto) 8.3 % Monocytes (%) (Auto) 2.6 % Eosinophils (%) (Auto) 0.1 % Basophils (%) (Auto) 1.7 % Neutrophils # (Auto) 3.6 TH/MM3 Lymphocytes # (Auto) 0.3 TH/MM3 Monocytes # (Auto) 0.1 TH/MM3 Eosinophils # (Auto) 0.0 TH/MM3 Basophils # (Auto) 0.1 TH/MM3 CBC Comment DIFF FINAL Differential Comment Sodium Level 141 MEQ/L Potassium Level 4.0 MEQ/L Chloride Level 106 MEQ/L Carbon Dioxide Level 30.6 MEQ/L Anion Gap 4 MEQ/L Blood Urea Nitrogen 15 MG/DL Creatinine 0.71 MG/DL Estimat Glomerular Filtration 84 ML/MIN Rate Random Glucose 92 MG/DL Calcium Level 8.9 MG/DL Total Bilirubin 0.3 MG/DL Aspartate Amino Transf 20 U/L (AST/SGOT) Alanine Aminotransferase 32 U/L (ALT/SGPT) Alkaline Phosphatase 60 U/L Total Protein 6.5 GM/DL Albumin 3.0 GM/DL Administered Medications Medications (Trade) Dose Ordered Sig/Prashant Route PRN Reason Start Time Stop Time Status Last Admin Dose Admin Magnesium Hydroxide (Milk Of Magnsinai Liq) 15 ml DAILY PRN PO CONSTIPATION 08/12/16 08:00 08/14/16 12:15 Sodium Chloride (NS Flush) DAILY IVF 08/12/16 09:00 08/14/16 08:11 Heparin Sodium (Porcine) (Heparin Central Flush) DAILY IVF 08/12/16 09:00 08/14/16 08:10 Gabapentin (Neurontin) 300 mg TID PO 08/12/16 13:00 08/14/16 12:14 Diazepam (Valium) 10 mg Q8HR PRN PO anxiety 08/12/16 10:45 08/12/16 21:10 Carisoprodol (Soma) 350 mg Q8H PRN PO muscle spasm 08/12/16 10:45 08/14/16 01:45 Famotidine (Pepcid) 20 mg Q12HR PO 08/12/16 21:00 08/14/16 08:10 Furosemide (Lasix) 20 mg DAILY PO 08/13/16 09:00 08/14/16 08:10 Pantoprazole Sodium (Protonix) 20 mg DAILY PO 08/13/16 09:00 08/14/16 08:10 Levothyroxine Sodium (Synthroid) 25 mcg DAILY@0600 PO 08/13/16 06:00 08/14/16 05:08 Potassium Chloride (KCl) 20 meq DAILY PO 08/12/16 10:45 08/14/16 08:10 Dexamethasone Sodium Phosphate (Decadron Opth 0.1% Soln) 2 drop QID EACH EYE 08/12/16 13:00 08/19/16 09:01 08/14/16 12:14 Enoxaparin Sodium (Lovenox Inj) 40 mg Q24H SQ 08/12/16 16:00 08/13/16 17:43 Oxycodone HCl (Roxicodone) 10 mg Q4H PRN PO PAIN 6-10 08/13/16 04:45 08/14/16 12:14 Acetaminophen (Tylenol) 650 mg Q6H PRN PO HEADACHE 08/13/16 12:45 08/13/16 22:20 Objective Remarks GENERAL: Middle-aged female sitting up in bed in no distress. SKIN: Warm and dry. HEAD: Normocephalic. + Alopecia EYES: No injection or drainage. NECK: Supple, trachea midline. CARDIOVASCULAR: Regular rate and rhythm without murmurs. RESPIRATORY: Breath sounds equal bilaterally. No accessory muscle use. GASTROINTESTINAL: Abdomen soft, non-tender. EXTREMITIES: No cyanosis, or edema. MUSCULOSKELETAL: Adequate muscle tone. NEUROLOGICAL: No obvious focal deficit. Awake, alert, and oriented x3. Assessment/Plan Assessment 1. Acute myelogenous leukemia, currently in remission. She was diagnosed in April of 2016 and bone marrow biopsy at that time showed 41% myeloblasts. 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 CSF analysis did not show any leukemic involvement. She completed induction idarubicin, Albina-C in May of 2016. Bone marrow biopsy on June 13 showed 0.8% myeloblasts consistent with a good response to treatment. She had completed one cycle of consolidation Albina-C. She developed neutropenic fever requiring hospital admission for a few days. Her blood count has recovered. She is admitted for cycle two of high-dose Albina-C. She went to [facility] last week and she is a candidate for consolidation bone marrow transplant. They are currently doing HLA typing of her siblings. She will proceed with consolidation bone marrow transplant if she has a matched donor. --08/13/16 Will complete Day#1 of HIDAC this am. Tolerating well. -- 08/14/16: Today is day #3. She will have HIDAC chemotherapy later on today. She has had no nausea. Tolerating well. 2. Chronic back pain. She had pain pump refilled recently. The pain is controlled. Continue oxycodone prn. 3. Hypothyroidism, stable. 4. Peripheral neuropathy. Continue gabapentin. 5. Anxiety, stable. Plan 1. Day #3; Pt will have 2nd dose of HIDAC today. 2. Labs stable. Continue to monitor. 3. Supportive care. Attending Statement The exam, history, and the medical decision-making described in the above note were completed with the assistance of the mid-level provider. I reviewed and agree with the findings presented. I attest that I had a [id number] encounter with the patient on the same day, and personally performed and documented my assessment and findings in the medical record. No N/V. No rash. Still has chronic back pain. CBC stable. She will continue HIDAC per protocol. Marissa Juarez Aug 14, 2016 15:07 Ryan Tripp MD Aug 14, 2016 16:42
[2016-08-14] MEDS: SODIUM CHLOR 0.9% IV SCH (15:15)
[2016-08-14] MEDS: CYTARABINE IV SCH (15:15)
[2016-08-14] MEDS: ENOXAPARIN SODIUM 40 MG/0.4 ML SYRINGE SQ SCH (16:28)
[2016-08-15] VITALS: BP 106/59; PULSE 71; RESP 16; TEMP 96.3; O2SAT 91
[2016-08-15] MEDS: CYTARABINE IV SCH (03:18)
[2016-08-15] MEDS: SODIUM CHLOR 0.9% IV SCH (03:18)
[2016-08-15 04:03] VITALS: BP 122/66; PULSE 71; RESP 16; TEMP 96.6; O2SAT 92
[2016-08-15] MEDS: LEVOTHYROXINE SODIUM 25 MCG TAB PO SCH (05:29)
[2016-08-15 06:08] LABS: BASOPHIL % 0.4 % (0.0-2.0); HEMO FLAGS DIFF FINAL; LYMPH % 1.3 % (9.0-44.0); LYMPHOCYTE # 0.1 TH/MM3 (1.0-4.8); MEAN CORPUSCULAR HEMOGLOBIN 30.5 PG (27.0-34.0); MEAN CORPUSCULAR HGB CONC 34.6 % (32.0-36.0); NEUT % 97.3 % (16.0-70.0); PLATELET COUNT 472 TH/MM3 (150-450); RED BLOOD COUNT 3.41 MIL/MM3 (4.00-5.30); RED CELL DISTRIBUTION WIDTH 16.5 % (11.6-17.2); WHITE BLOOD COUNT 7.2 TH/MM3 (4.0-11.0)
[2016-08-15 06:35] LABS: ALKALINE PHOSPHATASE 69 U/L (45-117); ALT (GPT) 82 U/L (10-53); ANION GAP 9 MEQ/L (5-15); AST (GOT) 58 U/L (15-37); BICARBONATE 28.5 MEQ/L (21.0-32.0); BLOOD UREA NITROGEN 15 MG/DL (7-18); CHLORIDE 103 MEQ/L (98-107); GLOMERULAR FILTRATION RATE 115 ML/MIN (>89); SODIUM (NA) 140 MEQ/L (136-145); TOTAL BILIRUBIN ADULT 0.2 MG/DL (0.2-1.0)
[2016-08-15 08:00] VITALS: BP 112/64; PULSE 72; RESP 16; TEMP 97.7; O2SAT 95
[2016-08-15] MEDS: DEXAMETHASONE SOD PHOS 0.1% OPHT SOLN 5 ML BTL EACH EYE SCH ×4 (08:55→21:28)
[2016-08-15] MEDS: FUROSEMIDE 20 MG TAB PO SCH (08:55)
[2016-08-15] MEDS: POTASSIUM CHLORIDE 20 MEQ CONTROLLED RELEASE TAB PO SCH (08:56)
[2016-08-15] MEDS: PANTOPRAZOLE SOD 20 MG DELAYED RELEASE TAB PO SCH (08:56)
[2016-08-15] MEDS: FAMOTIDINE 20 MG TAB PO SCH ×2 (08:56→21:26)
[2016-08-15] MEDS: SODIUM CHLORIDE 0.9% FLUSH 10 ML FLUSH IVF SCH (08:56)
[2016-08-15] MEDS: GABAPENTIN 300 MG CAP PO SCH ×3 (08:56→17:46)
[2016-08-15] MEDS: MAGNESIUM HYDROXIDE SUSP 30 ML CUP PO PRN (09:09)
[2016-08-15] MEDS ORDERED: METHYLNALTREXONE BROMIDE 12 MG/0.6 ML VIAL SQ ONE (10:15)
[2016-08-15] MEDS: CARISOPRODOL 350 MG TAB PO PRN ×2 (11:45→17:50)
[2016-08-15 12:00] VITALS: BP 122/59; PULSE 77; RESP 18; TEMP 97.4; O2SAT 96
--- NOTE | 2016-08-15 13:24 | PD.ONC.PN ---
Subjective Subjective Remarks Afebrile overnight. Patient resting comfortably without complaint. Tolerating chemotherapy. Had BM after receiving Relistor this AM. Objective Data Date Time Temp Pulse Resp B/P Pulse Ox O2 Delivery O2 Flow Rate FiO2 08/15/16 08:00 97.7 72 16 112/64 95 08/15/16 04:03 96.6 71 16 122/66 92 08/15/16 00:00 96.3 71 16 106/59 91 08/14/16 20:00 98.1 84 16 105/54 92 08/14/16 16:00 99.3 90 16 113/60 91 08/15/16 08/15/16 08/15/16 07:00 15:00 23:00 Intake Total 650 ml Balance 650 ml Result Diagram: 08/15/1652908/15/16529 Laboratory Results Laboratory Tests Test 08/15/16 05:30 White Blood Count 7.2 TH/MM3 Red Blood Count 3.41 MIL/MM3 Hemoglobin 10.4 GM/DL Hematocrit 30.0 % Mean Corpuscular Volume 88.0 FL Mean Corpuscular Hemoglobin 30.5 PG Mean Corpuscular Hemoglobin 34.6 % Concent Red Cell Distribution Width 16.5 % Platelet Count 472 TH/MM3 Mean Platelet Volume 7.0 FL Neutrophils (%) (Auto) 97.3 % Lymphocytes (%) (Auto) 1.3 % Monocytes (%) (Auto) 1.0 % Eosinophils (%) (Auto) 0.0 % Basophils (%) (Auto) 0.4 % Neutrophils # (Auto) 7.0 TH/MM3 Lymphocytes # (Auto) 0.1 TH/MM3 Monocytes # (Auto) 0.1 TH/MM3 Eosinophils # (Auto) 0.0 TH/MM3 Basophils # (Auto) 0.0 TH/MM3 CBC Comment DIFF FINAL Differential Comment Sodium Level 140 MEQ/L Potassium Level 4.0 MEQ/L Chloride Level 103 MEQ/L Carbon Dioxide Level 28.5 MEQ/L Anion Gap 9 MEQ/L Blood Urea Nitrogen 15 MG/DL Creatinine 0.54 MG/DL Estimat Glomerular Filtration 115 ML/MIN Rate Random Glucose 111 MG/DL Calcium Level 8.9 MG/DL Total Bilirubin 0.2 MG/DL Aspartate Amino Transf 58 U/L (AST/SGOT) Alanine Aminotransferase 82 U/L (ALT/SGPT) Alkaline Phosphatase 69 U/L Total Protein 6.7 GM/DL Albumin 2.9 GM/DL Administered Medications Medications (Trade) Dose Ordered Sig/Prashant Route PRN Reason Start Time Stop Time Status Last Admin Dose Admin Magnesium Hydroxide (Milk Of Billy Villalba) 15 ml DAILY PRN PO CONSTIPATION 08/12/16 08:00 08/15/16 09:09 Sodium Chloride (NS Flush) DAILY IVF 08/12/16 09:00 08/15/16 08:56 Heparin Sodium (Porcine) (Heparin Central Flush) DAILY IVF 08/12/16 09:00 08/15/16 08:55 Gabapentin (Neurontin) 300 mg TID PO 08/12/16 13:00 08/15/16 11:53 Diazepam (Valium) 10 mg Q8HR PRN PO anxiety 08/12/16 10:45 08/12/16 21:10 Carisoprodol (Soma) 350 mg Q8H PRN PO muscle spasm 08/12/16 10:45 08/15/16 11:45 Famotidine (Pepcid) 20 mg Q12HR PO 08/12/16 21:00 08/15/16 08:56 Furosemide (Lasix) 20 mg DAILY PO 08/13/16 09:00 08/15/16 08:55 Pantoprazole Sodium (Protonix) 20 mg DAILY PO 08/13/16 09:00 08/15/16 08:56 Levothyroxine Sodium (Synthroid) 25 mcg DAILY@0600 PO 08/13/16 06:00 08/15/16 05:29 Potassium Chloride (KCl) 20 meq DAILY PO 08/12/16 10:45 08/15/16 08:56 Dexamethasone Sodium Phosphate (Decadron Opth 0.1% Soln) 2 drop QID EACH EYE 08/12/16 13:00 08/19/16 09:01 08/15/16 11:53 Enoxaparin Sodium (Lovenox Inj) 40 mg Q24H SQ 08/12/16 16:00 08/14/16 16:28 Oxycodone HCl (Roxicodone) 10 mg Q4H PRN PO PAIN 6-10 08/13/16 04:45 08/15/16 08:57 Acetaminophen (Tylenol) 650 mg Q6H PRN PO HEADACHE 08/13/16 12:45 08/13/16 22:20 Objective Remarks GENERAL: Middle aged female, sitting up in bed in nad. SKIN: Warm and dry. HEAD: Normocephalic. EYES: No injection or drainage. NECK: Supple, trachea midline. CARDIOVASCULAR: Regular rate and rhythm without murmurs. RESPIRATORY: Breath sounds equal bilaterally. No accessory muscle use. GASTROINTESTINAL: Abdomen soft, non-tender, nondistended. EXTREMITIES: No cyanosis NEUROLOGICAL: awake and alert, normal speech. Assessment/Plan Problem List: (1) AML (acute myeloid leukemia) Status: Acute Plan: 08/13/16 Will complete Day#1 of HIDAC this am. Tolerating well. 08/14/16: Today is day #3. She will have HIDAC chemotherapy later on today. She has had no nausea. Tolerating well. 08/15/16: off day today. monitor counts. last day of chemo tomorrow. (2) Chronic pain Status: Acute Plan: --had pain pump refilled recently. --follows with Dr. Lopez. --pain controlled. (3) Anxiety Status: Chronic Plan: --PRN Valium (4) Hypothyroid Status: Acute Plan: --on Synthroid Assessment 61y/o female with AML in CR, admitted for consolidation chemotherapy with ABRIL-C , cycle 2. Plan 1. monitor labs 2. continue supportive care 3. last day of chemotherapy tomorrow. Attending Statement The exam, history, and the medical decision-making described in the above note were completed with the assistance of the mid-level provider. I reviewed and agree with the findings presented. I attest that I had a [id number] encounter with the patient on the same day, and personally performed and documented my assessment and findings in the medical record. Tolerating chemotherapy. More fatigue. Low back pain stable. +BM with relistor. Continue HIDAC. Radha Lawrence Aug 15, 2016 13:24 Ryan Tripp MD Aug 15, 2016 19:20
[2016-08-15] MEDS: ENOXAPARIN SODIUM 40 MG/0.4 ML SYRINGE SQ SCH (14:58)
[2016-08-15 16:00] VITALS: BP 108/54; PULSE 89; RESP 18; TEMP 99; O2SAT 95
[2016-08-15 20:00] VITALS: BP 119/68; PULSE 88; RESP 17; TEMP 98.5; O2SAT 97
[2016-08-15] MEDS: DOCUSATE SODIUM 50 MG/SENNA 8.6 MG TAB PO SCH (21:28)
[2016-08-16] VITALS: BP 103/54; PULSE 75; RESP 16; TEMP 98.4; O2SAT 95
[2016-08-16] MEDS: CARISOPRODOL 350 MG TAB PO PRN (00:40)
[2016-08-16 04:00] VITALS: BP 114/54; PULSE 80; RESP 17; TEMP 98.3; O2SAT 95
[2016-08-16] MEDS: LEVOTHYROXINE SODIUM 25 MCG TAB PO SCH (05:09)
[2016-08-16 07:42] LABS: AUTOMATED NEUTROPHIL # 2.4 TH/MM3 (1.8-7.7); BASOPHIL # 0.1 TH/MM3 (0-0.2); BASOPHIL % 2.6 % (0.0-2.0); EOSINOPHIL % 0.2 % (0.0-4.0); HEMATOCRIT 26.9 % (35.0-46.0); HEMO FLAGS DIFF FINAL; LYMPHOCYTE # 0.2 TH/MM3 (1.0-4.8); MEAN CORPUSCULAR HGB CONC 34.8 % (32.0-36.0); MONO % 0.5 % (0.0-8.0); NEUT % 87.7 % (16.0-70.0); PLATELET COUNT 395 TH/MM3 (150-450); RED BLOOD COUNT 3.02 MIL/MM3 (4.00-5.30); RED CELL DISTRIBUTION WIDTH 16.9 % (11.6-17.2); WHITE BLOOD COUNT 2.7 TH/MM3 (4.0-11.0)
[2016-08-16 08:06] LABS: ALT (GPT) 57 U/L (10-53); ANION GAP 5 MEQ/L (5-15); AST (GOT) 36 U/L (15-37); BICARBONATE 29.4 MEQ/L (21.0-32.0); BLOOD UREA NITROGEN 13 MG/DL (7-18); CHLORIDE 104 MEQ/L (98-107); GLOMERULAR FILTRATION RATE 102 ML/MIN (>89); POTASSIUM 4.1 MEQ/L (3.5-5.1); SODIUM (NA) 138 MEQ/L (136-145)
[2016-08-16 08:09] LABS: ALKALINE PHOSPHATASE 63 U/L (45-117); TOTAL BILIRUBIN ADULT 0.3 MG/DL (0.2-1.0)
[2016-08-16] MEDS: FUROSEMIDE 20 MG TAB PO SCH (08:47)
[2016-08-16] MEDS: FAMOTIDINE 20 MG TAB PO SCH ×2 (08:47→22:11)
[2016-08-16] MEDS: SODIUM CHLORIDE 0.9% FLUSH 10 ML FLUSH IVF SCH (08:47)
[2016-08-16] MEDS: POTASSIUM CHLORIDE 20 MEQ CONTROLLED RELEASE TAB PO SCH (08:47)
[2016-08-16] MEDS: DEXAMETHASONE SOD PHOS 0.1% OPHT SOLN 5 ML BTL EACH EYE SCH ×4 (08:47→22:14)
[2016-08-16] MEDS: GABAPENTIN 300 MG CAP PO SCH ×3 (08:48→18:09)
[2016-08-16] MEDS: DOCUSATE SODIUM 50 MG/SENNA 8.6 MG TAB PO SCH ×2 (08:48→22:11)
[2016-08-16] MEDS: PANTOPRAZOLE SOD 20 MG DELAYED RELEASE TAB PO SCH (08:48)
[2016-08-16] MEDS ORDERED: DEXAMETHASONE INJ 20 MG, GRANISETRON INJ 1 MG in SODIUM CHLORIDE 0.9% INJ 50 ML IV ONE (09:00)
--- NOTE | 2016-08-16 09:59 | PD.ONC.PN ---
Subjective Subjective Remarks Afebrile overnight. last day of chemo today. no complaints. pain controlled Objective Data Date Time Temp Pulse Resp B/P Pulse Ox O2 Delivery O2 Flow Rate FiO2 08/16/16 06:28 19 08/16/16 04:00 98.3 80 17 114/54 95 08/16/16 02:06 20 08/16/16 00:00 98.4 75 16 103/54 95 08/15/16 20:00 98.5 88 17 119/68 97 08/15/16 16:00 99.0 89 18 108/54 95 08/15/16 12:00 97.4 77 18 122/59 96 08/16/16 08/16/16 08/16/16 07:00 15:00 23:00 Intake Total 720 ml Balance 720 ml Result Diagram: 08/16/16 0555 08/16/16 0555 Laboratory Results Laboratory Tests Test 08/16/16 05:55 White Blood Count 2.7 TH/MM3 Red Blood Count 3.02 MIL/MM3 Hemoglobin 9.4 GM/DL Hematocrit 26.9 % Mean Corpuscular Volume 89.0 FL Mean Corpuscular Hemoglobin 31.0 PG Mean Corpuscular Hemoglobin 34.8 % Concent Red Cell Distribution Width 16.9 % Platelet Count 395 TH/MM3 Mean Platelet Volume 7.4 FL Neutrophils (%) (Auto) 87.7 % Lymphocytes (%) (Auto) 9.0 % Monocytes (%) (Auto) 0.5 % Eosinophils (%) (Auto) 0.2 % Basophils (%) (Auto) 2.6 % Neutrophils # (Auto) 2.4 TH/MM3 Lymphocytes # (Auto) 0.2 TH/MM3 Monocytes # (Auto) 0.0 TH/MM3 Eosinophils # (Auto) 0.0 TH/MM3 Basophils # (Auto) 0.1 TH/MM3 CBC Comment DIFF FINAL Differential Comment Sodium Level 138 MEQ/L Potassium Level 4.1 MEQ/L Chloride Level 104 MEQ/L Carbon Dioxide Level 29.4 MEQ/L Anion Gap 5 MEQ/L Blood Urea Nitrogen 13 MG/DL Creatinine 0.60 MG/DL Estimat Glomerular Filtration 102 ML/MIN Rate Random Glucose 84 MG/DL Calcium Level 8.9 MG/DL Total Bilirubin 0.3 MG/DL Aspartate Amino Transf 36 U/L (AST/SGOT) Alanine Aminotransferase 57 U/L (ALT/SGPT) Alkaline Phosphatase 63 U/L Total Protein 6.4 GM/DL Albumin 2.9 GM/DL Administered Medications Medications (Trade) Dose Ordered Sig/Prashant Route PRN Reason Start Time Stop Time Status Last Admin Dose Admin Magnesium Hydroxide (Milk Of Billy Villalba) 15 ml DAILY PRN PO CONSTIPATION 08/12/16 08:00 08/15/16 09:09 Sodium Chloride (NS Flush) DAILY IVF 08/12/16 09:00 08/16/16 08:47 Heparin Sodium (Porcine) (Heparin Central Flush) DAILY IVF 08/12/16 09:00 08/16/16 08:47 Gabapentin (Neurontin) 300 mg TID PO 08/12/16 13:00 08/16/16 08:48 Diazepam (Valium) 10 mg Q8HR PRN PO anxiety 08/12/16 10:45 08/12/16 21:10 Carisoprodol (Soma) 350 mg Q8H PRN PO muscle spasm 08/12/16 10:45 08/16/16 00:40 Famotidine (Pepcid) 20 mg Q12HR PO 08/12/16 21:00 08/16/16 08:47 Furosemide (Lasix) 20 mg DAILY PO 08/13/16 09:00 08/16/16 08:47 Pantoprazole Sodium (Protonix) 20 mg DAILY PO 08/13/16 09:00 08/16/16 08:48 Levothyroxine Sodium (Synthroid) 25 mcg DAILY@0600 PO 08/13/16 06:00 08/16/16 05:09 Potassium Chloride (KCl) 20 meq DAILY PO 08/12/16 10:45 08/16/16 08:47 Dexamethasone Sodium Phosphate (Decadron Opth 0.1% Soln) 2 drop QID EACH EYE 08/12/16 13:00 08/19/16 09:01 08/16/16 08:47 Enoxaparin Sodium (Lovenox Inj) 40 mg Q24H SQ 08/12/16 16:00 08/15/16 14:58 Oxycodone HCl (Roxicodone) 10 mg Q4H PRN PO PAIN 6-10 08/13/16 04:45 08/16/16 08:49 Acetaminophen (Tylenol) 650 mg Q6H PRN PO HEADACHE 08/13/16 12:45 08/13/16 22:20 Senna/Docusate Sodium (Isa-Colace) 1 tab BID PO 08/15/16 21:00 08/16/16 08:48 Objective Remarks GENERAL: Middle aged female, supine in bed in nad SKIN: Warm and dry. huang site clean HEAD: Normocephalic. EYES: No injection or drainage. NECK: Supple, trachea midline. CARDIOVASCULAR: Regular rate and rhythm without murmurs. RESPIRATORY: Breath sounds equal bilaterally. No accessory muscle use. GASTROINTESTINAL: Abdomen soft, non-tender, nondistended. EXTREMITIES: No cyanosis NEUROLOGICAL: awake and alert, normal speech. Assessment/Plan Problem List: (1) AML (acute myeloid leukemia) Status: Acute Plan: 08/13/16 Will complete Day#1 of HIDAC this am. Tolerating well. 08/14/16: Today is day #3. She will have HIDAC chemotherapy later on today. She has had no nausea. Tolerating well. 08/15/16: off day today. monitor counts. last day of chemo tomorrow. 08/16: last day of chemotherapy today. will d/c tomorrow. (2) Chronic pain Status: Acute Plan: --had pain pump refilled recently. --follows with Dr. Lopez. --pain controlled. (3) Anxiety Status: Chronic Plan: --PRN Valium (4) Hypothyroid Status: Acute Plan: --on Synthroid Assessment 61y/o female with AML in CR, admitted for consolidation chemotherapy with ABRIL-C , cycle 2. Plan 1. last day of chemotherapy today 2. monitor CBC, CMP Attending Statement The exam, history, and the medical decision-making described in the above note were completed with the assistance of the mid-level provider. I reviewed and agree with the findings presented. I attest that I had a [id number] encounter with the patient on the same day, and personally performed and documented my assessment and findings in the medical record. Tolerating chemotherapy. Counts started to trend down. No N/V. Will complete chemo in AM. Can d/c if stable. Radha Lawrence Aug 16, 2016 09:58 Ryan Tripp MD Aug 16, 2016 11:46
[2016-08-16 10:00] VITALS: BP 128/65; PULSE 85; RESP 16; TEMP 96.4; O2SAT 99
[2016-08-16 14:00] VITALS: BP 110/58; PULSE 67; RESP 16; TEMP 97.5; O2SAT 96
[2016-08-16] MEDS: SODIUM CHLOR 0.9% IV SCH (15:21)
[2016-08-16] MEDS: CYTARABINE IV SCH (15:21)
[2016-08-16] MEDS: ENOXAPARIN SODIUM 40 MG/0.4 ML SYRINGE SQ SCH (15:26)
[2016-08-16 16:00] VITALS: BP 105/59; PULSE 89; TEMP 97; O2SAT 92
[2016-08-16 20:00] VITALS: BP 114/56; PULSE 92; RESP 18; TEMP 98.2; O2SAT 96
[2016-08-17] VITALS: BP 108/56; PULSE 68; RESP 16; TEMP 96.2; O2SAT 94
[2016-08-17] MEDS: CYTARABINE IV SCH (02:36)
[2016-08-17] MEDS: SODIUM CHLOR 0.9% IV SCH (02:36)
[2016-08-17 04:00] VITALS: BP 109/54; PULSE 70; RESP 17; TEMP 96.4; O2SAT 94
[2016-08-17] MEDS: CARISOPRODOL 350 MG TAB PO PRN (05:45)
[2016-08-17] MEDS: LEVOTHYROXINE SODIUM 25 MCG TAB PO SCH (05:45)
[2016-08-17 08:00] VITALS: BP 123/63; PULSE 60; RESP 16; TEMP 96.5; O2SAT 95
[2016-08-17 08:16] LABS: BASOPHIL % 1.1 % (0.0-2.0); HEMATOCRIT 28.5 % (35.0-46.0); HEMO FLAGS DIFF FINAL; LYMPH % 4.6 % (9.0-44.0); LYMPHOCYTE # 0.1 TH/MM3 (1.0-4.8); MEAN CELL VOLUME 89.2 FL (80.0-100.0); MEAN CORPUSCULAR HGB CONC 34.7 % (32.0-36.0); MONO % 0.2 % (0.0-8.0); NEUT % 94.1 % (16.0-70.0); PLATELET COUNT 344 TH/MM3 (150-450); RED CELL DISTRIBUTION WIDTH 16.9 % (11.6-17.2); WHITE BLOOD COUNT 2.1 TH/MM3 (4.0-11.0)
[2016-08-17 08:36] LABS: ALT (GPT) 77 U/L (10-53); ANION GAP 7 MEQ/L (5-15); AST (GOT) 56 U/L (15-37); BICARBONATE 27.4 MEQ/L (21.0-32.0); BLOOD UREA NITROGEN 15 MG/DL (7-18); CHLORIDE 104 MEQ/L (98-107); GLOMERULAR FILTRATION RATE 132 ML/MIN (>89); SODIUM (NA) 138 MEQ/L (136-145)
[2016-08-17 08:39] LABS: ALKALINE PHOSPHATASE 69 U/L (45-117); TOTAL BILIRUBIN ADULT 0.3 MG/DL (0.2-1.0)
--- NOTE | 2016-08-17 09:27 | HHI.DCPOC ---
Discharge Care Plan Diagnosis: (1) AML (acute myeloid leukemia) Goals to Promote Your Health * To prevent worsening of your condition and complications * To maintain your health at the optimal level Directions to Meet Your Goals Take your medications as prescribed Follow your dietary instruction Follow activity as directed Keep your appointments as scheduled Take your immunizations and boosters as scheduled If your symptoms worsen call your PCP, if no PCP go to Urgent Care Center or Emergency Room Smoking is Dangerous to Your Health. Avoid second hand smoke Call the 24-hour hour crisis hotline for domestic abuse at Radha Lawrence Aug 17, 2016 09:27
[2016-08-17] MEDS: FUROSEMIDE 20 MG TAB PO SCH (09:28)
[2016-08-17] MEDS: DOCUSATE SODIUM 50 MG/SENNA 8.6 MG TAB PO SCH (09:28)
[2016-08-17] MEDS: SODIUM CHLORIDE 0.9% FLUSH 10 ML FLUSH IVF SCH (09:28)
[2016-08-17] MEDS: GABAPENTIN 300 MG CAP PO SCH (09:28)
[2016-08-17] MEDS: PANTOPRAZOLE SOD 20 MG DELAYED RELEASE TAB PO SCH (09:28)
[2016-08-17] MEDS: FAMOTIDINE 20 MG TAB PO SCH (09:29)
[2016-08-17] MEDS: DEXAMETHASONE SOD PHOS 0.1% OPHT SOLN 5 ML BTL EACH EYE SCH (09:29)
[2016-08-17] MEDS: POTASSIUM CHLORIDE 20 MEQ CONTROLLED RELEASE TAB PO SCH (09:29)
--- NOTE | 2016-08-17 10:24 | PD.ONC.PN ---
Subjective Subjective Remarks Afebrile overnight. Patient resting comfortably without complaint. She is already dressed and ready to go. She had some low back pain last night, an exacerbation of her chronic pain. Objective Data Date Time Temp Pulse Resp B/P Pulse Ox O2 Delivery O2 Flow Rate FiO2 08/17/16 08:00 96.5 60 16 123/63 95 08/17/16 07:44 19 08/17/16 06:45 20 08/17/16 04:00 96.4 70 17 109/54 94 08/17/16 00:00 96.2 68 16 108/56 94 08/16/16 20:00 98.2 92 18 114/56 96 08/16/16 16:00 97.0 89 105/59 92 08/16/16 14:00 97.5 67 16 110/58 96 08/17/16 08/17/16 08/17/16 07:00 15:00 23:00 Intake Total 720 ml 240 ml Balance 720 ml 240 ml Result Diagram: 08/17/1630 08/17/16 0630 Laboratory Results Laboratory Tests Test 08/17/16 06:30 White Blood Count 2.1 TH/MM3 Red Blood Count 3.20 MIL/MM3 Hemoglobin 9.9 GM/DL Hematocrit 28.5 % Mean Corpuscular Volume 89.2 FL Mean Corpuscular Hemoglobin 31.0 PG Mean Corpuscular Hemoglobin 34.7 % Concent Red Cell Distribution Width 16.9 % Platelet Count 344 TH/MM3 Mean Platelet Volume 7.5 FL Neutrophils (%) (Auto) 94.1 % Lymphocytes (%) (Auto) 4.6 % Monocytes (%) (Auto) 0.2 % Eosinophils (%) (Auto) 0.0 % Basophils (%) (Auto) 1.1 % Neutrophils # (Auto) 2.0 TH/MM3 Lymphocytes # (Auto) 0.1 TH/MM3 Monocytes # (Auto) 0.0 TH/MM3 Eosinophils # (Auto) 0.0 TH/MM3 Basophils # (Auto) 0.0 TH/MM3 CBC Comment DIFF FINAL Differential Comment Sodium Level 138 MEQ/L Potassium Level 4.0 MEQ/L Chloride Level 104 MEQ/L Carbon Dioxide Level 27.4 MEQ/L Anion Gap 7 MEQ/L Blood Urea Nitrogen 15 MG/DL Creatinine 0.48 MG/DL Estimat Glomerular Filtration 132 ML/MIN Rate Random Glucose 104 MG/DL Calcium Level 9.4 MG/DL Total Bilirubin 0.3 MG/DL Aspartate Amino Transf 56 U/L (AST/SGOT) Alanine Aminotransferase 77 U/L (ALT/SGPT) Alkaline Phosphatase 69 U/L Total Protein 7.0 GM/DL Albumin 3.0 GM/DL Administered Medications Medications (Trade) Dose Ordered Sig/Prashant Route PRN Reason Start Time Stop Time Status Last Admin Dose Admin Magnesium Hydroxide (Milk Of Magnesia Liq) 15 ml DAILY PRN PO CONSTIPATION 08/12/16 08:00 08/15/16 09:09 Sodium Chloride (NS Flush) DAILY IVF 08/12/16 09:00 08/17/16 09:28 Heparin Sodium (Porcine) (Heparin Central Flush) DAILY IVF 08/12/16 09:00 08/17/16 09:28 Heparin Sodium (Porcine) (Heparin Central Flush) UNSCH PRN IVF SEE PROTOCOL 08/12/16 08:00 08/17/16 06:37 Gabapentin (Neurontin) 300 mg TID PO 08/12/16 13:00 08/17/16 09:28 Diazepam (Valium) 10 mg Q8HR PRN PO anxiety 08/12/16 10:45 08/12/16 21:10 Carisoprodol (Soma) 350 mg Q8H PRN PO muscle spasm 08/12/16 10:45 08/17/16 05:45 Famotidine (Pepcid) 20 mg Q12HR PO 08/12/16 21:00 08/17/16 09:29 Furosemide (Lasix) 20 mg DAILY PO 08/13/16 09:00 08/17/16 09:28 Pantoprazole Sodium (Protonix) 20 mg DAILY PO 08/13/16 09:00 08/17/16 09:28 Levothyroxine Sodium (Synthroid) 25 mcg DAILY@0600 PO 08/13/16 06:00 08/17/16 05:45 Potassium Chloride (KCl) 20 meq DAILY PO 08/12/16 10:45 08/17/16 09:29 Dexamethasone Sodium Phosphate (Decadron Opth 0.1% Soln) 2 drop QID EACH EYE 08/12/16 13:00 08/19/16 09:01 08/17/16 09:29 Enoxaparin Sodium (Lovenox Inj) 40 mg Q24H SQ 3/28/17 16:00 08/16/16 15:26 Oxycodone HCl (Roxicodone) 10 mg Q4H PRN PO PAIN 6-10 08/13/16 04:45 08/17/16 06:37 Acetaminophen (Tylenol) 650 mg Q6H PRN PO HEADACHE 08/13/16 12:45 08/13/16 22:20 Senna/Docusate Sodium (Isa-Colace) 1 tab BID PO 08/15/16 21:00 08/17/16 09:28 Objective Remarks GENERAL: Middle aged female, upright in bed in nad. SKIN: Warm and dry. huang site clean HEAD: Normocephalic. EYES: No injection or drainage. NECK: Supple, trachea midline. CARDIOVASCULAR: Regular rate and rhythm without murmurs. RESPIRATORY: Breath sounds equal bilaterally. No accessory muscle use. GASTROINTESTINAL: Abdomen soft, non-tender, nondistended. EXTREMITIES: No cyanosis NEUROLOGICAL: awake and alert, normal speech. no obvious focal deficit Assessment/Plan Problem List: (1) AML (acute myeloid leukemia) Status: Acute Plan: 08/13/16 Will complete Day#1 of HIDAC this am. Tolerating well. 08/14/16: Today is day #3. She will have HIDAC chemotherapy later on today. She has had no nausea. Tolerating well. 08/15/16: off day today. monitor counts. last day of chemo tomorrow. 08/16: last day of chemotherapy today. will d/c tomorrow. 08/17: discharge today. follow up in clinic tomorrow. (2) Chronic pain Status: Acute Plan: --had pain pump refilled recently. --follows with Dr. Lopez. --pain controlled. (3) Anxiety Status: Chronic Plan: --PRN Valium (4) Hypothyroid Status: Acute Plan: --on Synthroid Assessment 61y/o female with AML in CR, admitted for consolidation chemotherapy with ABRIL-C , cycle 2. Plan 1. discharge today. 2. follow up in clinic tomorrow as directed. Attending Statement The exam, history, and the medical decision-making described in the above note were completed with the assistance of the mid-level provider. I reviewed and agree with the findings presented. I attest that I had a [id number] encounter with the patient on the same day, and personally performed and documented my assessment and findings in the medical record. Completed HIDAC# 2. Tolerated well. Counts are stable. D/c today. F/u clinic this am to start neupogen and monitor CBC tomorrow. Radha Lawrence Aug 17, 2016 10:24 Ryan Tripp MD Aug 17, 2016 11:26
--- NOTE | 2016-08-17 10:29 | HHI.DS ---
Discharge Summary Admission Date Aug 12, 2016 at 07:58 Discharge Date: Aug 17, 2016 Admitting Diagnosis AML, admitted for cycle #2 consolidation chemotherapy (1) AML (acute myeloid leukemia) Diagnosis: Principal Brief History This is a 61 year old female diagnosed with AML in April 2016. She entered complete remission after successfully completing induction chemotherapy in May-June 2016. She is being admitted for her second cycle of consolidation chemotherapy. CBC/BMP: 08/17/16 0630 08/17/16 0630 Significant Findings Laboratory Tests Test 08/15/16 08/16/16 08/17/16 05:30 05:55 06:30 Red Blood Count 3.41 MIL/MM3 3.02 MIL/MM3 3.20 MIL/MM3 (4.00-5.30) (4.00-5.30) (4.00-5.30) Hemoglobin 10.4 GM/DL 9.4 GM/DL 9.9 GM/DL (11.6-15.3) (11.6-15.3) (11.6-15.3) Hematocrit 30.0 % 26.9 % 28.5 % (35.0-46.0) (35.0-46.0) (35.0-46.0) Platelet Count 472 TH/MM3 (150-450) Neutrophils (%) (Auto) 97.3 % 87.7 % 94.1 % (16.0-70.0) (16.0-70.0) (16.0-70.0) Lymphocytes (%) (Auto) 1.3 % 4.6 % (9.0-44.0) (9.0-44.0) Lymphocytes # (Auto) 0.1 TH/MM3 0.2 TH/MM3 0.1 TH/MM3 (1.0-4.8) (1.0-4.8) (1.0-4.8) Random Glucose 111 MG/DL (74-106) Aspartate Amino Transf 58 U/L (15-37) 56 U/L (15-37) (AST/SGOT) Alanine Aminotransferase 82 U/L (10-53) 57 U/L (10-53) 77 U/L (10-53) (ALT/SGPT) Albumin 2.9 GM/DL 2.9 GM/DL 3.0 GM/DL (3.4-5.0) (3.4-5.0) (3.4-5.0) White Blood Count 2.7 TH/MM3 2.1 TH/MM3 (4.0-11.0) (4.0-11.0) Basophils (%) (Auto) 2.6 % (0.0-2.0) Creatinine 0.48 MG/DL (0.50-1.00) PE at Discharge please see physical exam from progress note on date of discharge Hospital Course Ms. Chawla was admitted on 08/12/16 for consolidation chemotherapy with high dose Albina-C for acute myelogenous leukemia. Her home medications were resumed. She tolerated chemotherapy on days 1, 3, and 5 and is being discharged home in stable condition with instructions for follow up on Thursday08/17/16. Pt Condition on Discharge: Good Discharge Disposition: Discharge Home Discharge Instructions DIET: Follow Instructions for: As Tolerated, No Restrictions Activities you can perform: Regular-No Restrictions Radha Lawrence Aug 17, 2016 10:28
[2016-08-17] MEDS ORDERED: LEVA500T PO (10:47)
[2016-08-17] MEDS ORDERED: DIFL100T PO (10:47)
[2016-08-17] MEDS ORDERED: ACYC400T PO (10:47)
== END 2016-08-17 11:21 | disposition home or self-care (01) | DRG 847 ==
LOC: HOCB 08-12 07:13 → OBSVTOIN 08-12 07:58
PROVIDERS: ADMIT Internal Medicine Hematology & Oncology; ATTEND Internal Medicine Hematology & Oncology
DX: Z51.11 Encounter for antineoplastic chemotherapy (principal); C92.Z1 Other myeloid leukemia, in remission; G62.9 Polyneuropathy, unspecified; E03.9 Hypothyroidism, unspecified; F41.9 Anxiety disorder, unspecified; K21.9 Gastro-esophageal reflux disease without esophagitis; G89.29 Other chronic pain; M54.5 Low back pain
CPT/HCPCS: 80053; 83735; 84100; 85025; J1100; J1626; J1642; J1650; J2212; J3480; J7050; J9100

== ENCOUNTER 2016-08-23 08:09 | Observation (INO) | payer OTHER ==
[~2016-08-23 08:09] MED LIST changes: +ACYC400T PO; +DIFL100T PO
[2016-08-23 08:45] VITALS: BP 109/58; PULSE 87; RESP 18; TEMP 97.5; O2SAT 96
[2016-08-23] MEDS ORDERED: SODIUM CHLOR 0.9% 250 ML INJ 250 ML IV ONE (09:00)
[2016-08-23] MEDS ORDERED: ACETAMINOPHEN 325 MG TAB PO PRN (09:00)
[2016-08-23] MEDS ORDERED: diphenhydrAMINE HCL 25 MG CAP PO ONE (09:00)
[2016-08-23] MEDS ORDERED: ALTEPLASE RECOMBINANT 2 MG VIAL IVF PRN (10:00)
[2016-08-23] MEDS ORDERED: MAGNESIUM HYDROXIDE SUSP 30 ML CUP PO PRN (10:00)
[2016-08-23] MEDS ORDERED: ONDANSETRON INJ 8 MG in DEXTROSE 5% IN WATER INJ 50 ML IV PRN ×2 (10:00)
[2016-08-23] MEDS ORDERED: ALUMINUM/MAGNESIUM/SIMETH 30 ML CUP PO PRN (10:00)
[2016-08-23] MEDS ORDERED: PROCHLORPERAZINE INJ 10 MG/2 ML VIAL IV PRN (10:00)
--- NOTE | 2016-08-23 12:16 | HHI.DCPOC ---
Discharge Care Plan Diagnosis: (1) Thrombocytopenia (2) AML (acute myeloid leukemia) Goals to Promote Your Health * To prevent worsening of your condition and complications * To maintain your health at the optimal level Directions to Meet Your Goals Take your medications as prescribed Follow your dietary instruction Follow activity as directed Keep your appointments as scheduled Take your immunizations and boosters as scheduled If your symptoms worsen call your PCP, if no PCP go to Urgent Care Center or Emergency Room Smoking is Dangerous to Your Health. Avoid second hand smoke Call the 24-hour hour crisis hotline for domestic abuse at Marissa Juarez Aug 23, 2016 12:16
--- NOTE | 2016-08-23 12:22 | HHI.DS ---
Discharge Summary Admission Date Aug 23, 2016 at 08:09 Discharge Date: Aug 23, 2016 Admitting Diagnosis Thrombocytopenia Procedures Platelet transfusion Brief History Ms. Chawla is a 61 y/o female who recently underwent consolidation chemotherapy for AML. She had her labs checked this morning at the outpatient clinic and was found to have a platelet count of 16K. She was admitted for platelet transfusion. PE at Discharge See PE from consult on 08/23/16 Hospital Course Ms. Chawla had a short stay as an inpatient. She was given platelets for thrombocytopenia associated with chemotherapy. No complications. Pt Condition on Discharge: Good Discharge Disposition: Discharge Home Discharge Instructions DIET: Follow Instructions for: As Tolerated, No Restrictions Activities you can perform: Regular-No Restrictions Marissa Juarez Aug 23, 2016 12:22
--- NOTE | 2016-08-23 16:29 | MH ---
cc: WILDA MCCLURE M.D. DATE OF ADMISSION: 08/23/2016 DATE OF : 1955 ADMISSION DIAGNOSIS Severe thrombocytopenia. HISTORY OF PRESENT ILLNESS Mrs. Chawla is a pleasant 61-year-old woman with acute myelogenous leukemia diagnosed in April of 2016. She had pancytopenia at presentation. She had induction chemotherapy with idarubicin and Albina-C with a good response. She is receiving consolidation chemotherapy with high-dose Albina-C. Her course was complicated by cytopenias for which she is requiring transfusions. She had a CBC performed today that showed significant thrombocytopenia, platelet count of 16,000 despite a transfusion of platelets yesterday. Her hemoglobin is 7.8, her white count is 0.5, ANC is 0. Fortunately she has had no fevers. She denies any mouth sores. She has no headache today. She has no visual change, no chest pain, palpitations, shortness of breath or cough. She has chronic back pain which is unchanged. She has dysuria, hematuria, rash or pruritus. She denies any bleeding despite the thrombocytopenia. PAST MEDICAL HISTORY 1. Acute myelogenous leukemia. 2. Chronic back pain. 3. Anxiety. 4. Hypothyroidism. 5. Peripheral neuropathy. 6. Pancytopenia post consolidation. 7. Gastroesophageal reflux. 8. Hemorrhoids. PAST SURGICAL HISTORY 1. Hemorrhoidectomy. 2. Back surgery. 3. Neck surgery. 4. Rotator cuff surgery. 5. Pain pump placement. 6. Donaldson catheter placement. 7. Bone marrow biopsy. FAMILY HISTORY Father of lung cancer. Mother has asthma. SOCIAL HISTORY She denies any tobacco, alcohol or illicit drug use. ALLERGIES NO KNOWN DRUG ALLERGIES. CURRENT MEDICATION 1. Levothyroxine. 2. Acyclovir. 3. Soma. 4. Lasix p.r.n. 5. Gabapentin. 6. Protonix. PHYSICAL EXAMINATION VITAL SIGNS: Temperature 97.5, heart rate 87, respiratory rate 18, blood pressure 109/58, saturation 96%. GENERAL: Mrs. Chawla is a well-developed, well-nourished pleasant woman in no acute distress, she has alopecia. HEENT: Her pupils are round and reactive to light and accommodation. Oropharynx is clear. Conjunctivae are pale. Mucosa without petechia or wet purpura. LUNGS: Clear to auscultation. CARDIOVASCULAR: Reveals a normal rate and rhythm. ABDOMEN: Benign. LOWER EXTREMITIES: With no edema. SKIN: Skin with no rash. NEUROLOGIC: Exam is nonfocal. LABORATORY DATA ANC of 0, white blood cell count 0.5, hemoglobin 7.8, platelet count of 16,000. ASSESSMENT AND PLAN Ms. Chawla is a 61-year-old woman with acute myelogenous leukemia receiving consolidation chemotherapy. Her course was complicated by pancytopenia. She is transfusion dependent on platelets. She is anemic. She is offered a transfusion of platelets. She tolerated platelet transfusion well. However, I am concerned that she will continue to require transfusion over the weekend. She does not need red cell transfusion at present, her hemoglobin is 7.8 however her hemoglobin is continuing to trend down and anticipate will need transfusion tomorrow. It is her son's birthday. She will be discharged home. She appears to be stable, afebrile. She is well educated to call in terms of toxicity such as fever. I plan to repeat a CBC in the morning and coordinate transfusion as needed for red cell and platelets as needed. MD YUNG Lovett/SHANNAN /11:38 AM /4:13 PM
== END 2016-08-23 12:12 | disposition home or self-care (01) ==
LOC: HOCB 08:09
PROVIDERS: ADMIT Internal Medicine Hematology & Oncology; ATTEND Internal Medicine Hematology & Oncology
DX: D69.59 Other secondary thrombocytopenia (principal); T45.1X5A Adverse effect of antineoplastic and immunosuppressive drugs, initial encounter; C92.00 Acute myeloblastic leukemia, not having achieved remission; G89.29 Other chronic pain; M54.9 Dorsalgia, unspecified; F41.9 Anxiety disorder, unspecified; E03.9 Hypothyroidism, unspecified; G62.9 Polyneuropathy, unspecified; K21.9 Gastro-esophageal reflux disease without esophagitis; Z92.21 Personal history of antineoplastic chemotherapy
CPT/HCPCS: 36430; G0378; J7050; P9037

== ENCOUNTER 2016-08-24 11:47 | Observation (INO) | payer OTHER ==
[2016-08-24 11:45] VITALS: BP 132/63; PULSE 122; RESP 18; RESP 20; TEMP 97.1; O2SAT 99
[2016-08-24] MEDS ORDERED: ONDANSETRON INJ 8 MG in DEXTROSE 5% IN WATER INJ 50 ML IV PRN ×2 (12:00)
[2016-08-24] MEDS ORDERED: SODIUM CHLORIDE 0.9% FLUSH 10 ML FLUSH IVF PRN (12:00)
[2016-08-24] MEDS ORDERED: LORazepam 0.5 MG TAB PO PRN (12:00)
[2016-08-24] MEDS ORDERED: ACETAMINOPHEN 325 MG TAB PO PRN (12:00)
[2016-08-24] MEDS ORDERED: SODIUM CHLOR 0.9% 250 ML INJ 250 ML IV ONE (12:00)
[2016-08-24] MEDS ORDERED: diphenhydrAMINE HCL 25 MG CAP PO PRN (12:00)
[2016-08-24 12:28] LABS: MEAN CELL VOLUME 89.5 FL (80.0-100.0); MEAN CORPUSCULAR HEMOGLOBIN 30.6 PG (27.0-34.0); MEAN CORPUSCULAR HGB CONC 34.2 % (32.0-36.0); PLATELET COUNT 46 TH/MM3 (150-450); RED BLOOD COUNT 2.57 MIL/MM3 (4.00-5.30); RED CELL DISTRIBUTION WIDTH 16.4 % (11.6-17.2); WHITE BLOOD COUNT 0.2 TH/MM3 (4.0-11.0)
[2016-08-24 12:30] LABS: HEMO FLAGS AUTO DIFF
[2016-08-24 13:02] LABS: BASOPHILS 2 % (0-2); EOSINOPHILS 2 % (0-4); WBC DIFF SAMPLE 50
[2016-08-24 13:03] LABS: PLATELET ESTIMATE SMEAR LOW (NORMAL); PLATELET MORPHOLOGY NORMAL (NORMAL); SCAN/DIFF FINAL DIFF MANUAL
[2016-08-24 13:51] VITALS: BP 132/63; PULSE 122; RESP 18; TEMP 97.1; O2SAT 99
[2016-08-24] MEDS ORDERED: FILGRASTIM 480 MCG/1.6 ML VIAL SQ ONE (14:00)
[2016-08-24 14:15] VITALS: BP 120/66; PULSE 75; RESP 18; TEMP 97.3; O2SAT 95
--- NOTE | 2016-08-24 14:55 | HHI.DCPOC ---
Discharge Care Plan Diagnosis: (1) AML (acute myeloid leukemia) Your Health Problems Are: Anxiety Chronic Pain Shortness of Breath Goals to Promote Your Health * To prevent worsening of your condition and complications * To maintain your health at the optimal level Directions to Meet Your Goals Take your medications as prescribed Follow your dietary instruction Follow activity as directed Keep your appointments as scheduled Take your immunizations and boosters as scheduled If your symptoms worsen call your PCP, if no PCP go to Urgent Care Center or Emergency Room Smoking is Dangerous to Your Health. Avoid second hand smoke Call the 24-hour hour crisis hotline for domestic abuse at Marissa JuarezP Aug 24, 2016 14:55
[2016-08-24 15:00] VITALS: BP 120/66; PULSE 75; RESP 16; TEMP 97.3; O2SAT 95
--- NOTE | 2016-08-24 15:00 | HHI.DS ---
Discharge Summary Admission Date Aug 24, 2016 at 11:47 Discharge Date: Aug 24, 2016 Admitting Diagnosis SOB, Pancytopenia (1) AML (acute myeloid leukemia) Diagnosis: Principal (2) Thrombocytopenia Diagnosis: Secondary (3) Anemia Diagnosis: Secondary Procedures 1 unit PRBC transfusion for anemia Brief History Ms. Chawla is a pleasant 61 y/o female with a history of AML. She was diagnosed with this last fall. She has recently completed a consolidative chemotherapy. Her counts have been low and she was having some increased SOB today. CBC/BMP: 08/24/16 1200 Significant Findings Laboratory Tests Test 08/24/16 12:00 White Blood Count 0.2 TH/MM3 (4.0-11.0) Red Blood Count 2.57 MIL/MM3 (4.00-5.30) Hemoglobin 7.9 GM/DL (11.6-15.3) Hematocrit 23.0 % (35.0-46.0) Platelet Count 46 TH/MM3 (150-450) Lymphocytes % 96 % (9-44) Neutrophils # (Manual) 0.0 TH/MM3 (1.8-7.7) Platelet Estimate LOW (NORMAL) PE at Discharge See PE from 08/24/16. Hospital Course Ms. Chawla rec'd 1 unit of PRBC's and her symptoms were improved. She was also given Neupogen as she has been neutropenic from the chemotherapy. Pt Condition on Discharge: Good Discharge Disposition: Discharge Home Discharge Instructions DIET: Follow Instructions for: As Tolerated, No Restrictions Activities you can perform: Regular-No Restrictions Marissa Juarez Aug 24, 2016 15:00
--- NOTE | 2016-08-24 15:23 | MH ---
cc: WILDA MCCLURE M.D. DATE OF ADMISSION 08/24/2016 DATE OF 1955 DATE OF SERVICE 08/24/2016 ADMISSION DIAGNOSIS 1. Acute myelogenous leukemia. 2. Fatigue. 3. Pancytopenia. HISTORY OF PRESENT ILLNESS Mrs. Chawla is a 61-year-old woman with acute myelogenous leukemia with remission after induction Adriamycin and Albina-C. She is receiving consolidation chemotherapy. She is known from hospital admission the day prior. She was significantly thrombocytopenic and required platelet transfusion. She was home doing well. She enjoyed her son's birthday and a family get together. In the morning she had an extreme amount of fatigue. She had some difficulty with some shortness of breath. She is admitted because of suspected cytopenias. She denies any fevers, chills, night sweats. No headaches. No vision changes. She was extremely tachycardiac at the time of the admission. Her heart rate was in the 120s. She was short of breath. Labs were performed. Her white cell count was 0.2, hemoglobin of 7.9 and platelet count of 46,000. Admission was coordinated because of symptoms and known cytopenias. The rest of review of systems is negative. PAST MEDICAL HISTORY Acute myelogenous leukemia, chronic back pain, anxiety, hypothyroidism, pancytopenia, gastroesophageal reflux, hemorrhoid. PAST SURGICAL HISTORY Hemorrhoid surgery, back surgery, neck surgery, rotator cuff surgery, pain pump placement, Donaldson catheter, bone marrow biopsy. FAMILY HISTORY Father of lung cancer. Mother has asthma. SOCIAL HISTORY Denies any tobacco, alcohol or illicit drug use. ALLERGIES No known drug allergies. MEDICATIONS 1. Levothyroxine. 2. Acyclovir. 3. Soma. 4. Lasix p.r.n. 5. Gabapentin. 6. Protonix. 7. Neupogen. PHYSICAL EXAMINATION VITAL SIGNS: Temperature 97.1, heart rate 122, respiratory rate 20, blood pressure 132/63, saturation 99%. GENERAL: Mrs. Chawla is a 61-year-old woman who is pleasant. She has generalized pallor and alopecia. She looks fatigued. HEENT: Her pupils are round, reactive to light and accommodation. Conjunctivae is pale. Oropharynx is clear. LUNGS: Clear to auscultation. CARDIOVASCULAR: Exam reveals a tachycardia. ABDOMEN: Benign. EXTREMITIES: Lower extremity with no edema, chronic venous changes. SKIN: With no rash. NEUROLOGICAL: Exam is nonfocal. LABORATORY DATA CBC as described above. ASSESSMENT/PLAN Mrs. Chawla is a 61-year-old woman with acute myelogenous leukemia status post consolidation with pancytopenia. We discussed fatigue is likely related to her increased activity with company and her son's birthday yesterday. She has been afebrile. Her heart rate is in the 120s but recovered at rest. She is anemic. She is offered a unit of packed red cells. She was expected to be thrombocytopenic, however, her platelet count has improved from the platelet transfusion yesterday. Additional platelet transfusion is deferred. She is still thrombocytopenic but can probably do well without the transfusion. She is neutropenic and leukopenic. G-CSF support continues. She is monitored for a fever. We will see how she responds to the transfusion. She is hoping to be able to go home when she feels better. Otherwise we can continue our observation. Noted is liver function elevation. Ultimately, we will refer back to Dr. Tripp for followup. Her questions were answered to her satisfaction. Wilda Mcclure MD RAD/EO /2:53 PM /3:09 PM
== END 2016-08-24 16:48 | disposition home or self-care (01) ==
LOC: HOCB 11:47
PROVIDERS: ADMIT Internal Medicine Hematology & Oncology; ATTEND Internal Medicine Hematology & Oncology
DX: C92.01 Acute myeloblastic leukemia, in remission (principal); D70.1 Agranulocytosis secondary to cancer chemotherapy; T45.1X5A Adverse effect of antineoplastic and immunosuppressive drugs, initial encounter; D69.6 Thrombocytopenia, unspecified; D64.9 Anemia, unspecified; K21.9 Gastro-esophageal reflux disease without esophagitis; E03.9 Hypothyroidism, unspecified; M54.9 Dorsalgia, unspecified; G89.29 Other chronic pain
CPT/HCPCS: 36430; 85007; 85027; 86850; 86900; 86901; 86920; G0378; J1442; J7050; P9040

== ENCOUNTER 2016-09-20 09:20 | Emergency (ER) | payer OTHER ==
[~2016-09-20] VITALS: Ht 175.3 cm; Wt 72.5 kg
[2016-09-20 09:22] VITALS: BP 130/61; PULSE 124; RESP 20; TEMP 100.1; O2SAT 93
[2016-09-20] MEDS ORDERED: DILA2TAB2 PO (09:48)
[2016-09-20] MEDS ORDERED: SODIUM CHLOR 0.9% 1000 ML INJ 1,000 ML IV ONE (10:00)
[2016-09-20 10:25] LABS: AUTOMATED NEUTROPHIL # 4.5 TH/MM3 (1.8-7.7); BASOPHIL # 0.1 TH/MM3 (0-0.2); EOSINOPHIL % 0.3 % (0.0-4.0); HEMATOCRIT 35.2 % (35.0-46.0); HEMO FLAGS AUTO DIFF; LYMPH % 8.7 % (9.0-44.0); LYMPHOCYTE # 0.5 TH/MM3 (1.0-4.8); MEAN CELL VOLUME 91.4 FL (80.0-100.0); MEAN CORPUSCULAR HEMOGLOBIN 30.1 PG (27.0-34.0); MEAN CORPUSCULAR HGB CONC 32.9 % (32.0-36.0); MONO % 11.7 % (0.0-8.0); NEUT % 78.3 % (16.0-70.0); PLATELET COUNT 274 TH/MM3 (150-450); RED BLOOD COUNT 3.86 MIL/MM3 (4.00-5.30); RED CELL DISTRIBUTION WIDTH 18.7 % (11.6-17.2); WHITE BLOOD COUNT 5.8 TH/MM3 (4.0-11.0)
[2016-09-20 10:31] LABS: BLOOD, URINE NEG (NEG); COMMENT (UR) CULT NOT INDICATED; CULTURE IF INDICATED CULT NOT INDICATED; GLUCOSE,URINE NEG (NEG); HYALINE CAST, URINE 9 /lpf (RARE); KETONE, URINE NEG (NEG); MUCUS URINE FEW /lpf (OCC); NITRITE,URINE NEG (NEG); PH, URINE 5.5 (5.0-8.5); SQUAMOUS EPITHELIAL CELL URINE <1 /hpf (0-5); URINE COLOR YELLOW (YELLW/STRAW)
[2016-09-20 10:35] LABS: APTT (PATIENT) 32.6 SEC (24.3-30.1); PROTHROMBIN TIME - PATIENT 10.7 SEC (9.8-11.6)
[2016-09-20 10:55] LABS: BANDS 10 % (0-6); BASOPHILS 3 % (0-2); EOSINOPHILS 1 % (0-4); NEUTROPHIL # MANUAL DIFF 4.7 TH/MM3 (1.8-7.7); PLATELET ESTIMATE SMEAR NORMAL (NORMAL); PLATELET MORPHOLOGY NORMAL (NORMAL); POLYS (SEG NEUTROPHILS) 71 % (16-70); SCAN/DIFF FINAL DIFF MANUAL; WBC DIFF SAMPLE 100
[2016-09-20 10:57] LABS: ANION GAP 7 MEQ/L (5-15); AST (GOT) 50 U/L (15-37); BICARBONATE 27.7 MEQ/L (21.0-32.0); BLOOD UREA NITROGEN 11 MG/DL (7-18); CHLORIDE 104 MEQ/L (98-107); GLOMERULAR FILTRATION RATE 59 ML/MIN (>89); MAGNESIUM 2.1 MG/DL (1.5-2.5); POTASSIUM 3.9 MEQ/L (3.5-5.1); SODIUM (NA) 139 MEQ/L (136-145)
[2016-09-20 11:01] LABS: ALKALINE PHOSPHATASE 92 U/L (45-117); ALT (GPT) 49 U/L (10-53); TOTAL BILIRUBIN ADULT 0.4 MG/DL (0.2-1.0)
[2016-09-20 11:05] VITALS: BP 114/56; TEMP 98.4
[2016-09-20 11:08] LABS: CREATINE KINASE 64 U/L (26-192)
--- NOTE | 2016-09-20 11:15 | PD ---
HPI Chief Complaint: Fever Time Seen by Provider: 09:48 Travel History International Travel<30 days: No Contact w/Intl Traveler<30days: No Traveled to known affect area: No History of Present Illness HPI Patient 61-year-old female with a history of acute myelogenous leukemia presents the emergency department for evaluation of fever. Patient states that she spiked a fever this morning to 103F and she took some Tylenol. She states she's otherwise been feeling well. Denies any chest pain shortness of breath abdominal pain rash cough congestion blood in the stool diarrhea. Patient attempted to call her oncologist Dr. Paula who has not called her back yet. She does have a history of neutropenia but has not had chemotherapy in some months. She is slated to have a bone marrow transplant at [facility]. 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) Kidney Stones: No Musculoskeletal: Yes Neurologic: Yes (NEUROPATHY) Psychiatric: No Reproductive: No Respiratory: Yes Migraines: No Myocardial Infarction: No Renal Failure: No Seizures: No Sleep Apnea: No Thyroid Disease: Yes Ulcer: No Menopausal: Yes Past Surgical History AICD: No Arteriovenous Shunt: No Body Medical Devices: DILAUDID POUNCING LATHE OPERATOR PAIN PUMP RIGHT ABDOMEN Coronary Artery Bypass Graft: No Gynecologic Surgery: Yes (REMOVAL UTERUS CYST) Insulin Pump: No Joint Replacement: No Pacemaker: No Thoracic Surgery: Yes (back ,shoulder, fused disk ) Other Surgery: Yes (MULTIPLE BACK SURGERIES, CARPAL TUNNEL BILATERALLY, shoulder) Social History Alcohol Use: No Tobacco Use: No Substance Use: No Allergies-Medications (Allergen,Severity, Reaction): Coded Allergies: No Known Allergies (Verified , 07/27/16) Reported Meds & Prescriptions Reported Meds & Active Scripts Active Levaquin (Levofloxacin) 750 Mg Tab 750 Mg PO DAILY 10 Days Reported Dilaudid (Hydromorphone HCl) 2 Mg Tab Unknown Dose PO Q4H PRN Valium (Diazepam) 10 Mg Tab 10 Mg PO BID PRN Protonix (Pantoprazole Sodium) 20 Mg Tab 20 Mg PO DAILY Gabapentin 300 Mg Cap 300 Mg PO TID Zantac (Ranitidine HCl) 150 Mg Tab 150 Mg PO BID Synthroid (Levothyroxine Sodium) 25 Mcg Tab 25 Mcg PO DAILY Potassium Chloride ER (Potassium Chloride) 10 Meq Cap 10 Meq PO DAILY Lasix (Furosemide) 20 Mg Tab 20 Mg PO DAILY Soma (Carisoprodol) 350 Mg Tab 350 Mg PO TID PRN Review of Systems Except as stated in HPI: all other systems reviewed are Neg Physical Exam Narrative GENERAL: Well-developed well-nourished no apparent distress SKIN: No rash no wound HEAD: Atraumatic. Normocephalic. EYES: Pupils equal and round. No scleral icterus. No injection or drainage. ENT: No nasal bleeding or discharge. Mucous membranes pink and moist. TMs clear bilaterally, oropharynx clear, NECK: Trachea midline. No JVD. CARDIOVASCULAR: Regular rate and rhythm. No murmur appreciated. RESPIRATORY: No accessory muscle use. Clear to auscultation. Breath sounds equal bilaterally. GASTROINTESTINAL: Abdomen soft, non-tender, nondistended. Hepatic and splenic margins not palpable. MUSCULOSKELETAL: No obvious deformities. No clubbing. No cyanosis. No edema. NEUROLOGICAL: Awake and alert. No obvious cranial nerve deficits. Motor grossly within normal limits. Normal speech. PSYCHIATRIC: Appropriate mood and affect; insight and judgment normal. Data Data Last Documented VS Vital Signs Date Time Temp Pulse Resp B/P Pulse Ox O2 Delivery O2 Flow Rate FiO2 09/20/16 12:08 93 Nasal Cannula 2 09/20/16 11:05 98.4 85 20 114/56 Orders Electrocardiogram (09/20/16 09:56) Complete Blood Count With Diff (09/20/16 09:56) Comprehensive Metabolic Panel (09/20/16 09:56) Prothrombin Time / Inr (Pt) (09/20/16 09:56) Act Partial Throm Time (Ptt) (09/20/16 09:56) Lactic Acid Sepsis Protocol (09/20/16 09:56) Magnesium (Mg) (09/20/16 09:56) Phosphorus (Po4) (09/20/16 09:56) Lipase (09/20/16 09:56) Ckmb (Isoenzyme) Profile (09/20/16 09:56) Troponin I (09/20/16 09:56) Urinalysis - C+S If Indicated (09/20/16 09:56) Blood Culture (09/20/16 09:56) Ecg Monitoring (09/20/16 09:56) Iv Access Insert/Monitor (09/20/16 09:56) Oximetry (09/20/16 09:56) Oxygen Administration (09/20/16 09:56) Sodium Chlor 0.9% 1000 Ml Inj (Ns 1000 M (09/20/16 10:00) Influenzae A/B Antigen (09/20/16 11:25) Group A Rapid Strep Screen (09/20/16 11:25) Strep Culture (Group A) (09/20/16 11:45) Labs Laboratory Tests Test 09/20/16 09/20/16 09:50 10:00 White Blood Count 5.8 TH/MM3 Red Blood Count 3.86 MIL/MM3 Hemoglobin 11.6 GM/DL Hematocrit 35.2 % Mean Corpuscular Volume 91.4 FL Mean Corpuscular Hemoglobin 30.1 PG Mean Corpuscular Hemoglobin 32.9 % Concent Red Cell Distribution Width 18.7 % Platelet Count 274 TH/MM3 Mean Platelet Volume 7.7 FL Neutrophils (%) (Auto) 78.3 % Lymphocytes (%) (Auto) 8.7 % Monocytes (%) (Auto) 11.7 % Eosinophils (%) (Auto) 0.3 % Basophils (%) (Auto) 1.0 % Neutrophils # (Auto) 4.5 TH/MM3 Lymphocytes # (Auto) 0.5 TH/MM3 Monocytes # (Auto) 0.7 TH/MM3 Eosinophils # (Auto) 0.0 TH/MM3 Basophils # (Auto) 0.1 TH/MM3 CBC Comment AUTO DIFF Differential Total Cells 100 Counted Neutrophils % (Manual) 71 % Band Neutrophils % 10 % Lymphocytes % 6 % Monocytes % 9 % Eosinophils % 1 % Basophils % 3 % Neutrophils # (Manual) 4.7 TH/MM3 Differential Comment FINAL DIFF MANUAL Platelet Estimate NORMAL Platelet Morphology Comment NORMAL Prothrombin Time 10.7 SEC Prothromb Time International 1.0 RATIO Ratio Activated Partial 32.6 SEC Thromboplast Time Sodium Level 139 MEQ/L Potassium Level 3.9 MEQ/L Chloride Level 104 MEQ/L Carbon Dioxide Level 27.7 MEQ/L Anion Gap 7 MEQ/L Blood Urea Nitrogen 11 MG/DL Creatinine 0.97 MG/DL Estimat Glomerular Filtration 59 ML/MIN Rate Random Glucose 120 MG/DL Lactic Acid Level 1.2 mmol/L Calcium Level 9.1 MG/DL Phosphorus Level 2.7 MG/DL Magnesium Level 2.1 MG/DL Total Bilirubin 0.4 MG/DL Aspartate Amino Transf 50 U/L (AST/SGOT) Alanine Aminotransferase 49 U/L (ALT/SGPT) Alkaline Phosphatase 92 U/L Total Creatine Kinase 64 U/L Troponin I LESS THAN 0.02 NG/ML Total Protein 7.7 GM/DL Albumin 3.4 GM/DL Lipase 76 U/L Urine Color YELLOW Urine Turbidity CLEAR Urine pH 5.5 Urine Specific [place] 1.016 Urine Protein NEG mg/dL Urine Glucose (UA) NEG mg/dL Urine Ketones NEG mg/dL Urine Occult Blood NEG Urine Nitrite NEG Urine Bilirubin NEG Urine Urobilinogen LESS THAN 2.0 MG/DL Urine Leukocyte Esterase NEG Urine RBC 1 /hpf Urine WBC LESS THAN 1 /hpf Urine Squamous Epithelial <1 /hpf Cells Urine Hyaline Casts 9 /lpf Urine Mucus FEW /lpf Microscopic Urinalysis Comment CULT NOT INDICATED MDM Medical Decision Making Medical Screen Exam Complete: Yes Emergency Medical Condition: Yes Interpretation(s) EKG shows normal sinus rhythm or rate 94, normal axis and normal R-wave progression. No concerning ST-T changes. Possible left atrial enlargement. Intervals within normal limits. Borderline EKG. Differential Diagnosis Sepsis, neutropenic fever, pneumonia, flu, strep, Narrative Course Patient was roomed in the emergency department, she is well and nontoxic appearing. No history nor physical exam findings suggest a source of her fever. She certainly does look nontoxic. Basic laboratory workup is reassuring : White blood cell count of 5.8 with 70% neutrophils 8.7% lymphocytes 11.7% monocytes. UA negative, chemistry including lactic acid unremarkable, coag studies with trivial elevation in PTT to 32.6. Chest x-ray shows no acute Erfem pulmonary abnormality. Patient was discussed with Dr. Paula who suggested adding rapid flu and rapid stress test on him. If these tests are negative as well as she appears Be discharged on Levaquin. We'll test are negative. Dr. Paula also requests patient be followed up in hematology clinic this week. Discussed with the patient at length return to ED criteria. I believe that she is stable for discharge at this time. Levaquin prescription is written. Discussed need for follow-up with Dr. Paula within 2-3 days Diagnosis Primary Impression: Fever Qualified Code: R50.9 - Fever, unspecified fever cause Additional Instructions: Call Dr. Paula's office on Thursday. If you have any concerning symptoms please return to the emergency department. Med/Other Pt SpecificInfo: Prescription(s) given Scripts Levofloxacin (Levaquin)750 Mg Vac940 Mg PO DAILY 10 Days Ref 0 Prov:Frandy Durbin MD 09/20/16 Disposition: 01 DISCHARGE HOME Condition: Stable Frandy Durbin MD September 20, 2016 11:15
[2016-09-20 12:08] VITALS: O2SAT 93
[2016-09-20] MEDS ORDERED: LEVA750T PO (12:20)
--- NOTE | 2016-09-20 21:54 | EKG ---
Date Performed: 09/20/2016 Time Performed: 10:14:23 PTAGE: 61 years EKG: Sinus rhythm POSSIBLE LEFT ATRIAL ENLARGEMENT POSSIBLE INFERIOR MYOCARDIAL INFARCTION BORDERLINE ECG PREVIOUS TRACING : 05/16/2016 14.34 DOCTOR: Markos Angel Interpretating Date/Time 09/20/2016 21:51:26
== END 2016-09-20 12:48 | disposition home or self-care (01) ==
LOC: NEPC 09:20
DX: C92.Z0 Other myeloid leukemia not having achieved remission (principal); R50.9 Fever, unspecified; I10 Essential (primary) hypertension; Z79.899 Other long term (current) drug therapy
CPT/HCPCS: 80053; 81001; 82550; 83605; 83690; 83735; 84100; 84484; 85007; 85027; 85610; 85730; 87040; 87081; 87804; 87880; 93005; 96360; 99283; J7030

== ENCOUNTER 2017-01-28 14:27 | Emergency (ER) | payer OTHER ==
[~2017-01-28] VITALS: Ht 175.3 cm; Wt 68.0 kg
[~2017-01-28 14:27] MED LIST changes: -ACYC400T PO; -DIFL100T PO; +DILA2TAB2 PO; -LEVA500T PO; +LEVA750T PO
[2017-01-28] MEDS ORDERED: IOHEXOL 350 MG/ML 10 ML VIAL (for RAD DIAG) IVCONTRAST ONE (14:28)
[2017-01-28 14:30] VITALS: BP 190/88; PULSE 116; RESP 24; TEMP 98; O2SAT 89
--- NOTE | 2017-01-28 15:03 | PD ---
HPI Chief Complaint: Respiratory Symptoms Time Seen by Provider: 14:44 Travel History International Travel<30 days: No Contact w/Intl Traveler<30days: No Traveled to known affect area: No History of Present Illness HPI 62 y/o female presents with feeling short of breath that is been progressive over the past couple weeks. She states she has been on her oxygen for the past month that about 3 L. She states that even with that she feels more short of breath. She states she had a bone marrow transplant at [facility] and has been doing well with that with no fever or other symptoms. She denies any specific pain. She states Dr. Tripp is her oncologist here. She states in the past she is followed with Dr. Espino who helped her coordinate an echocardiogram but she denies any specific heart history. Quality is hard to catch breath. Severity is progressive. 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, PORT) Kidney Stones: No Musculoskeletal: Yes Neurologic: Yes (NEUROPATHY) Psychiatric: No Reproductive: No Respiratory: Yes Migraines: No Myocardial Infarction: No Renal Failure: No Seizures: No Sleep Apnea: No Thyroid Disease: Yes Ulcer: No Menopausal: Yes Past Surgical History AICD: No Arteriovenous Shunt: No Body Medical Devices: DILAUDID PHOTO LAB SPECIALIST PAIN PUMP RIGHT ABDOMEN Coronary Artery Bypass Graft: No Gynecologic Surgery: Yes (REMOVAL UTERUS CYST) Insulin Pump: No Joint Replacement: No Pacemaker: No Thoracic Surgery: Yes (back ,shoulder, fused disk ) Other Surgery: Yes (MULTIPLE BACK SURGERIES, CARPAL TUNNEL BILATERALLY, shoulder) Social History Alcohol Use: No Tobacco Use: No Substance Use: No Allergies-Medications (Allergen,Severity, Reaction): Coded Allergies: No Known Allergies (Verified , 01/28/17) Reported Meds & Prescriptions Reported Meds & Active Scripts Active Reported Ventolin Hfa 18 GM Inh (Albuterol Sulfate) 90 Mcg/Act Aer 2 Puff INH Q4-6H PRN Alprazolam 0.25 Mg Tab 0.25 Mg PO BID PRN Oxycodone (Oxycodone HCl) 5 Mg Cap 5 Mg PO TID PRN Montelukast (Montelukast Sodium) 10 Mg Tab 10 Mg PO HS Ursodiol 250 Mg Tab 250 Mg PO BID Prednisone 1 Mg Tab 1 Mg PO DAILY Bactrim DS (Sulfamethoxazole-Trimethoprim) 800-160 Mg Tab 1 Tab PO DAILY Acyclovir 800 Mg Tab 800 Mg PO BID Tacrolimus 1 Mg Cap 2 Mg PO HS Tacrolimus 0.5 Mg Cap 1.5 Mg PO DAILY Rapamune (Sirolimus) 0.5 Mg Tab 0.5 Mg PO DAILY Advair Diskus Inh (Fluticasone-Salmeterol Inh) 250-50 Mcg/Blist Aer 1 Puff INH BID Rinse mouth after use. Dilaudid (Hydromorphone HCl) 2 Mg Tab Unknown Dose PO Q4H PRN Protonix (Pantoprazole Sodium) 20 Mg Tab 20 Mg PO DAILY Gabapentin 300 Mg Cap 300 Mg PO TID Synthroid (Levothyroxine Sodium) 25 Mcg Tab 25 Mcg PO DAILY Soma (Carisoprodol) 350 Mg Tab 350 Mg PO TID PRN Review of Systems Except as stated in HPI: all other systems reviewed are Neg Physical Exam Narrative GENERAL: Well-nourished, well-developed patient. Tearful SKIN: Warm and dry. HEAD: Normocephalic and atraumatic. EYES: No injection or drainage. ENT: No nasal drainage noted. NECK: Supple, trachea midline. CARDIOVASCULAR: Regular rate and rhythm RESPIRATORY: Breath sounds equal bilaterally at apices. No accessory muscle use. GASTROINTESTINAL: Abdomen soft, non-tender, nondistended. EXTREMITIES: No edema. NEUROLOGICAL: Awake and alert. Motor and sensory grossly within normal limits. Normal speech. Data Data Last Documented VS Vital Signs Date Time Temp Pulse Resp B/P (MAP) Pulse Ox O2 Delivery O2 Flow Rate FiO2 01/28/17 19:40 01/28/17 18:00 90 22 93 Nasal Cannula 3.00 01/28/17 14:30 98.0 Orders Orders Electrocardiogram (01/28/17 14:56) Complete Blood Count With Diff (01/28/17 14:56) Comprehensive Metabolic Panel (01/28/17 14:56) Prothrombin Time / Inr (Pt) (01/28/17 14:56) Act Partial Throm Time (Ptt) (01/28/17 14:56) Lactic Acid Sepsis Protocol (01/28/17 14:56) Magnesium (Mg) (01/28/17 14:56) Phosphorus (Po4) (01/28/17 14:56) Ckmb (Isoenzyme) Profile (01/28/17 14:56) Troponin I (01/28/17 14:56) Urinalysis - C+S If Indicated (01/28/17 14:56) Influenzae A/B Antigen (01/28/17 14:56) Blood Culture (01/28/17 14:56) Chest, Single Ap (01/28/17 14:56) Ecg Monitoring (01/28/17 14:56) Iv Access Insert/Monitor (01/28/17 14:56) Oximetry (01/28/17 14:56) Oxygen Administration (01/28/17 14:56) Ct Pulmonary Angiogram (01/28/17 ) CKMB (01/28/17 15:40) CKMB% (01/28/17 15:40) Iohexol 350 Inj (Omnipaque 350 Inj) (01/28/17 14:28) Labs Laboratory Tests Test 01/28/17 15:40 White Blood Count 8.3 TH/MM3 Red Blood Count 3.90 MIL/MM3 Hemoglobin 11.5 GM/DL Hematocrit 35.5 % Mean Corpuscular Volume 91.0 FL Mean Corpuscular Hemoglobin 29.4 PG Mean Corpuscular Hemoglobin Concent 32.3 % Red Cell Distribution Width 17.0 % Platelet Count 182 TH/MM3 Mean Platelet Volume 8.4 FL Neutrophils (%) (Auto) 71.0 % Lymphocytes (%) (Auto) 24.5 % Monocytes (%) (Auto) 3.7 % Eosinophils (%) (Auto) 0.5 % Basophils (%) (Auto) 0.3 % Neutrophils # (Auto) 5.9 TH/MM3 Lymphocytes # (Auto) 2.0 TH/MM3 Monocytes # (Auto) 0.3 TH/MM3 Eosinophils # (Auto) 0.0 TH/MM3 Basophils # (Auto) 0.0 TH/MM3 CBC Comment DIFF FINAL Differential Comment Prothrombin Time 10.3 SEC Prothromb Time International Ratio 0.9 RATIO Activated Partial Thromboplast Time 26.3 SEC Urine Color LIGHT-YELLOW Urine Turbidity CLEAR Urine pH 5.5 Urine Specific [place] 1.008 Urine Protein NEG mg/dL Urine Glucose (UA) NEG mg/dL Urine Ketones NEG mg/dL Urine Occult Blood NEG Urine Nitrite NEG Urine Bilirubin NEG Urine Urobilinogen LESS THAN 2.0 MG/DL Urine Leukocyte Esterase NEG Urine RBC 1 /hpf Urine WBC LESS THAN 1 /hpf Microscopic Urinalysis Comment CATH-CULT NOT IND Blood Urea Nitrogen 14 MG/DL Creatinine 0.94 MG/DL Random Glucose 91 MG/DL Total Protein 6.5 GM/DL Albumin 3.5 GM/DL Calcium Level 8.8 MG/DL Phosphorus Level 3.2 MG/DL Magnesium Level 1.9 MG/DL Alkaline Phosphatase 70 U/L Aspartate Amino Transf (AST/SGOT) 23 U/L Alanine Aminotransferase (ALT/SGPT) 30 U/L Total Bilirubin 0.3 MG/DL Sodium Level 140 MEQ/L Potassium Level 4.0 MEQ/L Chloride Level 110 MEQ/L Carbon Dioxide Level 23.1 MEQ/L Anion Gap 7 MEQ/L Estimat Glomerular Filtration Rate 61 ML/MIN Lactic Acid Level 0.5 mmol/L Total Creatine Kinase 140 U/L Creatine Kinase MB 1.8 NG/ML Troponin I LESS THAN 0.02 NG/ML MDM Medical Decision Making Medical Screen Exam Complete: Yes Emergency Medical Condition: Yes Medical Record Reviewed: Yes (past history confirm, recent oncology note reviewed) Interpretation(s) CBC & BMP Diagram 01/28/17 15:40 Total Protein 6.5, Albumin 3.5, Calcium Level 8.8, Phosphorus Level 3.2, Magnesium Level 1.9, Alkaline Phosphatase 70, Aspartate Amino Transf (AST/SGOT) 23, Alanine Aminotransferase (ALT/SGPT) 30, Total Bilirubin 0.3 Last 24 hours Impressions Chest X-Ray 01/28/17 1456 Signed Impressions: Service Date/Time: Saturday, January 28, 2017 15:02 - CONCLUSION: Minimal parenchymal changes left base suspicious inflammatory process. Juan Carlos Cherry MD FACR Patient has no fever, leukocytosis or URI symptoms so will hold antibiotics for this and follow ct Last 24 hours Impressions Chest X-Ray 01/28/17 1456 Signed Impressions: Service Date/Time: Saturday, January 28, 2017 15:02 - CONCLUSION: Minimal parenchymal changes left base suspicious inflammatory process. Juan Carlos Cherry MD FACR CT Angiography 01/28/17 0000 Signed Impressions: Service Date/Time: Saturday, January 28, 2017 17:08 - CONCLUSION: Progression of the fine interstitial infiltrate in both lungs. This could represent inflammatory process, congestive failure and reaction to chemotherapy. There is no central pulmonary emboli. Juan Carlos Cherry MD FACR Differential Diagnosis PE, anemia, renal failure, atypical cardiac, pneumonia Narrative Course Will check blood work, chest x-ray, CT pulmonary and reevaluate ed workup no emergent will discuss with her senior business objects developer and oncologist Patient updated and offered observation, she states she wants to follow-up outpatient with her senior business objects developer, Patient denies any new complaints, all questions answered. Patient knows that follow up is incumbent on them and to return to the emergency room immediately if new or worsening symptoms develop. Patient given strict return precautions, vitals reviewed and are normal, agrees to further workup as an outpatient. Physician Communication Physician Communication dr ace yip to id patient and she can follow in office dr burnette states can follow in office for echo with dr espino Diagnosis Primary Impression: Shortness of breath Patient Instructions: General Instructions Additional Instructions: return as needed, follow with your senior business objects developer tommorrow, call your oncologist for follow up Med/Other Pt SpecificInfo: No Change to Meds Disposition: 01 DISCHARGE HOME Condition: Stable Erika Bruno MD Jan 28, 2017 15:03
--- NOTE | 2017-01-28 15:14 | RADRPT ---
EXAM DATE/TIME: 01/28/2017 15:02 [facility] COMPARISON: CHEST SINGLE AP, June 04, 2016, 21:23. INDICATIONS : Short of breath and chest pain for several days. MEDICAL HISTORY : Leukemia. SURGICAL HISTORY : Infusaport. ENCOUNTER: Initial ACUITY: 2 days PAIN SCORE: 4/10 LOCATION: Bilateral chest FINDINGS: [id number] in good position. Cardiomegaly with mild interstitial edema. Minimal parenchymal [place] left base suspicious for inflammatory process. There is no pleural effusion. CONCLUSION: Minimal parenchymal changes left base suspicious inflammatory process. Juan Carlos Cherry MD FACR on January 28, 2017 at 15:12 Board Certified Radiologist. This report was verified electronically.
[2017-01-28] MEDS ORDERED: BACT800T5 PO (15:32)
[2017-01-28] MEDS ORDERED: OXYC1CAP PO (15:32)
[2017-01-28] MEDS ORDERED: TACR0.5C PO (15:32)
[2017-01-28] MEDS ORDERED: VENTAER INH (15:32)
[2017-01-28] MEDS ORDERED: MONT10TA4 PO (15:32)
[2017-01-28] MEDS ORDERED: PRED1 PO (15:32)
[2017-01-28] MEDS ORDERED: ALPR0.25 PO (15:32)
[2017-01-28] MEDS ORDERED: ADVA250A INH (15:32)
[2017-01-28] MEDS ORDERED: [UNRECOGNIZED DRUG - CODE] PO (15:32)
[2017-01-28] MEDS ORDERED: TACR1CAP PO (15:32)
[2017-01-28] MEDS ORDERED: URSO1TAB5 PO (15:32)
[2017-01-28] MEDS ORDERED: ACYC800T PO (15:32)
[2017-01-28 15:49] VITALS: O2SAT 94
[2017-01-28 16:00] VITALS: BP 147/57; PULSE 92; RESP 24; O2SAT 93
[2017-01-28 16:17] LABS: BLOOD, URINE NEG (NEG); GLUCOSE,URINE NEG (NEG); KETONE, URINE NEG (NEG); NITRITE,URINE NEG (NEG); PH, URINE 5.5 (5.0-8.5); URINE COLOR LIGHT-YELLOW (YELLW/STRAW)
[2017-01-28 16:19] LABS: AUTOMATED NEUTROPHIL # 5.9 TH/MM3 (1.8-7.7); BASOPHIL % 0.3 % (0.0-2.0); EOSINOPHIL % 0.5 % (0.0-4.0); HEMATOCRIT 35.5 % (35.0-46.0); HEMO FLAGS DIFF FINAL; LYMPH % 24.5 % (9.0-44.0); MEAN CORPUSCULAR HEMOGLOBIN 29.4 PG (27.0-34.0); MEAN CORPUSCULAR HGB CONC 32.3 % (32.0-36.0); MONO % 3.7 % (0.0-8.0); PLATELET COUNT 182 TH/MM3 (150-450); WHITE BLOOD COUNT 8.3 TH/MM3 (4.0-11.0)
[2017-01-28 16:22] LABS: COMMENT (UR) CATH-CULT NOT IND; CULTURE IF INDICATED CATH CULTURE NOT IND
[2017-01-28 16:27] LABS: APTT (PATIENT) 26.3 SEC (24.3-30.1); INTERNATIONAL NORMALIZED RATIO 0.9 RATIO; PROTHROMBIN TIME - PATIENT 10.3 SEC (9.8-11.6)
[2017-01-28 16:41] LABS: ANION GAP 7 MEQ/L (5-15); AST (GOT) 23 U/L (15-37); BICARBONATE 23.1 MEQ/L (21.0-32.0); BLOOD UREA NITROGEN 14 MG/DL (7-18); CHLORIDE 110 MEQ/L (98-107); GLOMERULAR FILTRATION RATE 61 ML/MIN (>89); MAGNESIUM 1.9 MG/DL (1.5-2.5); SODIUM (NA) 140 MEQ/L (136-145)
[2017-01-28 17:00] VITALS: BP 151/72; PULSE 90; RESP 25; O2SAT 93
[2017-01-28 17:08] LABS: ALKALINE PHOSPHATASE 70 U/L (45-117); ALT (GPT) 30 U/L (10-53); CREATINE KINASE 140 U/L (26-192); TOTAL BILIRUBIN ADULT 0.3 MG/DL (0.2-1.0)
[2017-01-28 17:21] LABS: CKMB 1.8 NG/ML (0.5-3.6)
--- NOTE | 2017-01-28 17:33 | RADRPT ---
EXAM DATE/TIME: 01/28/2017 17:08 [facility] COMPARISON: CHEST PA & LAT, July 30, 2016, 14:12. INDICATIONS : Short of breath for one month,patient having chemo treatment. IV CONTRAST: 50 cc Omnipaque 350 (iohexol) IV RADIATION DOSE: 6.41 CTDIvol (mGy) MEDICAL HISTORY : Leukemia. SURGICAL HISTORY : None. ENCOUNTER: Initial ACUITY: 1 month PAIN SCALE: 0/10 LOCATION: chest TECHNIQUE: Volumetric scanning of the chest was performed using a pulmonary embolism protocol MIP images were re constructed. Using automated exposure control and adjustment of the mA and/or kV according to patien t size, radiation dose was kept as low as reasonably achievable to obtain optimal diagnostic quality images. DICOM format image data is available electronically for review and comparison. Follow-up recommendations for detected pulmonary nodules are based at a minimum on nodule size and pa tient risk factors according to Fleischner Society Guidelines. FINDINGS: PULMONARY ARTERIES: No filling defects are seen in the pulmonary arteries through the segmental level. LUNGS: Fine interstitial changes are present in both lungs with mild cardiomegaly and trace pericardial effu damion. Small pleural bleb is seen on the right. There is no evidence consolidation. PLEURAE: Small right pleural effusion. MEDIASTINUM: Minimal nonspecific mediastinal adenopathy is present. MUSCULOSKELETAL: Within normal limits for patient age. MISCELLANEOUS: The visualized upper abdominal organs demonstrate no acute abnormality. CONCLUSION: Progression of the fine interstitial infiltrate in both lungs. This could represent inflammatory pro cess, congestive failure and reaction to chemotherapy. There is no central pulmonary emboli. Juan Carlos Cherry MD FACR on January 28, 2017 at 17:29 Board Certified Radiologist. This report was verified electronically.
[2017-01-28 18:00] VITALS: BP 153/71; PULSE 90; RESP 22; O2SAT 93
--- NOTE | 2017-01-29 18:23 | EKG ---
Date Performed: 01/28/2017 Time Performed: 15:19:47 PTAGE: 62 years EKG: Sinus rhythm POSSIBLE LEFT ATRIAL ENLARGEMENT Compared to prior tracing no significant change BORDERLINE ECG PREVIOUS TRACING : 09/20/2016 10.14 DOCTOR: Dell Chan Interpretating Date/Time 01/29/2017 18:22:05
== END 2017-01-28 19:41 | disposition home or self-care (01) ==
LOC: NEPC 14:27
DX: C92.Z0 Other myeloid leukemia not having achieved remission (principal); R06.02 Shortness of breath; I10 Essential (primary) hypertension; Z79.899 Other long term (current) drug therapy
CPT/HCPCS: 71010; 71275; 80053; 81001; 82550; 82552; 83605; 83735; 84100; 84484; 85025; 85610; 85730; 87040; 87804; 93005; 99285; Q9967

== ENCOUNTER → 2017-02-05 | Outpatient (CLI) | payer OTHER ==
[~2017-02-05] MED LIST changes: +ACYC800T PO; +ADVA250A INH; +ALPR0.25 PO; +AMLO5TAB2 PO; +BACT800T5 PO; +CETI1CAP2 PO; -DIAZ10 PO; -LEVA750T PO; +MONT10TA4 PO; +OXYC1CAP PO; -POTA10CA PO; +PRED1 PO; +PRED5TAB PO; +TACR0.5C PO; +TACR1CAP PO; +URSO1TAB5 PO; +VENTAER INH; -ZANT150T2 PO; +[UNRECOGNIZED DRUG - CODE] PO
--- NOTE | 2017-02-09 11:34 | RSPPFT ---
DATE OF PROCEDURE: 02/05/17 COMMENTS: Spirometry demonstrates an FEV1 of 2.0 at 71% of predicted, FVC of 3.0 at 85%, FEV1/FVC ratio is 67%. The FEF 25-75 is 42% of predicted. Post-bronchodilator study demonstrated no significant change. Lung volumes demonstrated a reduced TLC suggesting restrictive disease. RV/TLC ratio is reduced. Airways resistance is increased. Diffusion capacity is severely reduced. Flow volume loops suggest an obstructive pattern. IMPRESSION: 1. Mild to moderate obstructive disease. 2. Additional mild restrictive disease. 3. No significant change following use of bronchodilator. 4. Severe loss in diffusion capacity.
== END ==
LOC: PHRSP 07:26
PROVIDERS: ATTEND Internal Medicine Cardiovascular Disease
DX: R06.02 Shortness of breath (principal)
CPT/HCPCS: 94060; 94726; 94729

== ENCOUNTER 2017-02-06 07:24 | Day surgery (SDC) | payer OTHER ==
[~2017-02-06 07:24] MED LIST changes: -AMLO5TAB2 PO; -CETI1CAP2 PO; -FURO1TAB62 PO; -PRED5TAB PO
[2017-02-06] MEDS ORDERED: CETI1CAP2 PO (08:24)
[2017-02-06] MEDS ORDERED: AMLO5TAB2 PO (08:24)
[2017-02-06] MEDS ORDERED: FURO1TAB62 PO (08:24)
[2017-02-06] MEDS ORDERED: PRED5TAB PO (08:24)
[2017-02-06] MEDS ORDERED: INSULIN HUMAN REGULAR 1,000 UNITS/10 ML VIAL SQ PRN (08:30)
[2017-02-06] MEDS ORDERED: SODIUM CHLORID 0.9% 500 ML IV PRN (08:30)
[2017-02-06] MEDS ORDERED: LACTATED RINGER'S 1000 ML IV PRN (08:30)
[2017-02-06] MEDS ORDERED: POVIDONE IODINE 5% (ANTISEPSIS KIT) 4 APPLICATIONS EACH NARE PRN (08:30)
[2017-02-06] MEDS ORDERED: CHLORHEXIDINE GLUCONATE 2 % 1 PACK (2 CLOTHS) TOPICAL PRN (08:30)
[2017-02-06] MEDS ORDERED: METOPROLOL TARTRATE 25 MG TAB PO PRN (08:30)
[2017-02-06] MEDS ORDERED: ceFAZolin INJ 1,000 MG VIAL ONE (09:56)
--- NOTE | 2017-02-06 10:07 | CF ---
cc: [facility], [facility] ESPINO M.D., GEORGE MD PROCEDURE PERFORMED Transesophageal echocardiogram. INDICATION Evaluate aortic regurgitation because of marked shortness of breath in a patient with stem cell transplant for leukemia, aortic regurgitation with CHF versus [id number] disease, CONSENT A full informed consent was obtained prior to the procedure. The risks of , bleeding, perforation, aspiration, foreseen and unforeseen complications were reviewed. The patient fully appeared to understand the risks. PROCEDURE The patient was draped and prepped in the usual sterile manner. The patient was anesthetized by the Anesthesia Department. The patient underwent a full NEGAR. FINDINGS 1. The LV function was normal. 2. The mitral valve moved normally. 3. The aortic valve was trileaflet and moved normally. 4. The interatrial septum was intact. 5. The tricuspid valve moved normally. 6. RV function and RA function was normal. 7. Agitated contrast solution/bubble study was negative for [id number] shunting. 8. There was evidence of trace mitral regurgitation, trace tricuspid regurgitation. 9. The aortic valve had evidence of moderate aortic regurgitation. CONCLUSIONS 1. Normal LV function. 2. Moderate aortic regurgitation. It seems unlikely that this moderate regurgitation would cause this degree of pulmonary incapacitation. PLAN Evaluate pulmonary function tests, etc. Luisa Espino MD, FRCP,[facility] /9:42 AM /9:49 AM
--- NOTE | 2017-02-06 16:25 | EKG ---
Date Performed: 02/06/2017 Time Performed: 08:14:32 PTAGE: 62 years EKG: Sinus rhythm . Lead(s) unsuitable for analysis: V2 Poor R wave progression - probable normal variant Since previou s tracing, no significant change noted Borderline ECG PREVIOUS TRACING : 01/28/2017 15.19 DOCTOR: Shreya Neely Interpretating Date/Time 02/06/2017 16:24:18
== END 2017-02-06 10:25 | disposition home or self-care (01) ==
LOC: HDOC 07:24 → HDIC 07:24 → HDOC 10:25
PROVIDERS: ATTEND Internal Medicine Cardiovascular Disease
DX: I35.1 Nonrheumatic aortic (valve) insufficiency (principal); C95.90 Leukemia, unspecified not having achieved remission; I10 Essential (primary) hypertension; E07.9 Disorder of thyroid, unspecified; K21.9 Gastro-esophageal reflux disease without esophagitis; R06.02 Shortness of breath; Z94.81 Bone marrow transplant status; Z79.891 Long term (current) use of opiate analgesic; Z79.51 Long term (current) use of inhaled steroids; Z79.899 Other long term (current) drug therapy
CPT/HCPCS: 93005; 93312; 93320; 93325; J0690; J7040